=== PATIENT | female | born 1955 | race Caucasian/White ===

== ENCOUNTER 2016-05-29 21:39 | Inpatient (IN) | payer MEDICARE, MEDICAID ==
[~2016-05-29] VITALS: Ht 165.1 cm; Wt 84.5 kg
[~2016-05-29 21:39] MED LIST: /ALLEGDTA OR; /DULO30CA OR; /LAMO10TA OR; /TIOT18INH INH; ADV250INH INH; ALBU17IN INH; ALBU83IN INH; ALBUTEROL XX; ALEV220T26 PO; AMBI10TA OR; ASPI1TAB PO; ASPI81TA7 PO; ASPI81TA85 PO; ASPI81TAEC PO; ATROVENT0.02% INH; AZIT250T3 PO; BISO5TAB5 PO; BUPR15TA OR; BUPR300T34 PO; BUPR75TA5 PO; BUSP30TA OR; CARV12.5 PO; CEFT250T OR; CEPH500C PO; CLAR10CA3 PO; CLON-404 PO; CLON0.3T OR; COLA100C2 OR; CYCL10TA PO; CYMB1CAP5 PO; DULO1CAP2 PO; DULO1CAP3 PO; DULO30CA PO; DYAZ37.5 OR; FLEXERIL PO; FLON0.054; FLON1SPR; GABA-279 PO; GABA300C3 PO; HYDR1TAB97 PO; HYDR25TA6 OR; IBUP200C PO; IBUP600T OR; KEFL500C7 PO; LAMO10TA PO; LEVA500T PO; LEVO50TA2 OR; LIDO5DIS EX; LIDO5DIS36 TD; LIPI10TA OR; LIPI80TA PO; LISI2.5T3 PO; LISI25TA PO; LYRI75CA OR; METH750T OR; NAPR375T2 PO; NICO14PA TD; NICO21DI4 TD; NICO7PA TD; OMEP20TA7 OR; OMEP40CA2 PO; OXYB5TAB5 OR; PRED10TA PO; PRED10TA2 OR; ROBITUSSIN; SENN1TAB2 PO; SPIR1CAP INH; SYNT50TA PO; TRAZ150T OR; TYLE500T78 PO; VARE1TA OR; VENTAER IN; VICO5TAB OR; VICODINES TAB OR; VIT D 2000 PO; XOPE1.252 IN; ZITH500T OR; lortab PO; norco PO; zipsor PO
[2016-05-29] MEDS ORDERED: IPRATROPIUM 0.5MG/ALBUTEROL 2.5MG INH SOL UD 3ML (DUONEB)(J7620) As Ordered ONE ×2 (21:45→23:40)
[2016-05-29] MEDS ORDERED: methylPREDNISolone INJ 125 MG/2 ML VIAL (J2930) As Ordered ONE (21:54)
[2016-05-29 22:00] LABS: BASO # 0.1 K/mm3 (0.0-0.2); BASO % 0.5 % (0.0-1.0); EOS # 0.1 K/mm3 (0.0-0.50); EOS % 0.7 % (0.0-3.0); LARGE UNSTAINED CELL # 0.3 K/mm3 (0.0-0.4); LARGE UNSTAINED CELL % 2.2 % (0.0-4.0); LYMPH # 2.3 K/mm3 (1.5-4.5); LYMPH % 18.4 % (24.0-44.0); MEAN CORPUSCULAR HEMOGLOBIN 31.9 pg (27.0-33.0); MEAN CORPUSCULAR HGB CONC 32.9 g/dl (32.0-36.5); MEAN CORPUSCULAR VOLUME 96.8 fl (80.0-96.0); MONO # 0.8 K/mm3 (0.0-0.8); MONO % 6.4 % (0.0-5.0); NEUTROPHILS # 8.8 K/mm3 (1.8-7.7); NEUTROPHILS % 71.8 % (36.0-66.0); PLATELET COUNT, AUTOMATED 390 k/mm3 (150-450); RED CELL DISTRIBUTION WIDTH 12.1 % (11.5-14.5); WHITE BLOOD COUNT 12.3 K/mm3 (4.0-10.0)
[2016-05-29 22:20] LABS: ANION GAP 8 MEQ/L (8-16); BLOOD UREA NITROGEN 23 MG/DL (7-18); CALCIUM LEVEL 8.9 MG/DL (8.5-10.1); CARBON DIOXIDE LEVEL 28 MEQ/L (21-32); CHLORIDE LEVEL 105 MEQ/L (98-107); CREATININE FOR GFR 0.54 MG/DL (0.55-1.02); GLOMERULAR FILTRATION RATE > 60.0 (>51); GLUCOSE, FASTING 160 MG/DL (70-105); POTASSIUM SERUM 4.8 MEQ/L (3.5-5.1); SODIUM LEVEL 141 MEQ/L (136-145)
--- NOTE | 2016-05-29 23:07 | REP ---
Clinical: Shortness of breath . Comparison: 05/23/2016 . Findings: The mediastinum and cardiac silhouette are stable and within normal limits for portable technique. The lung cherry are clear without acute consolidation, effusion, or pneumothorax. Skeletal structures are intact. Impression: Stable. No acute cardiopulmonary process appreciated. Signed by Michael Vasques MD 05/29/2016 10:59 P
[2016-05-29] MEDS ORDERED: MOXIFLOXACIN 400 MG TAB As Ordered ONE (23:14)
[2016-05-29] MEDS ORDERED: ALBUTEROL SULFATE 2.5 MG/0.5 ML INH NEB SOLN As Ordered ONE (23:50)
[2016-05-30] MEDS ORDERED: dexameTHASONE 4 MG/ML 1ML VIAL (J1100) As Ordered ONE (00:16)
[2016-05-30] MEDS ORDERED: LEVALBUTEROL 1.25 MG/0.5 ML CONCENTRATE NEB As Ordered ONE (00:27)
[2016-05-30] MEDS ORDERED: guaiFENesin DM LIQ 10ML UD As Ordered ONE (00:40)
[2016-05-30 01:12] LABS: ABG BASE EXCESS 0.8 (-2.0-2.0); ABG DEVICE NASAL CANN; ABG PARTIAL PRESSURE CO2 49.5 mmHg (35.0-45.0); ABG PARTIAL PRESSURE O2 78.6 mmHg (75.0-100.0); ABG STANDARD HCO3 25.1 MEQ/L (22.0-26.0); ABG TOTAL CO2 28.5 MEQ/L (22.0-29.0); ABG pH (ARTERIAL) 7.355 UNITS (7.350-7.450)
[2016-05-30] MEDS ORDERED: OMEP40CA2 PO (02:29)
[2016-05-30] MEDS ORDERED: BENGEL EXT (02:30)
[2016-05-30] MEDS ORDERED: ISOVUE-370 76% 100ML VIAL (Q9967) As Ordered ONE (03:08)
[2016-05-30] MEDS ORDERED: ALBUTEROL 90 MCG/ACT 8GM HFA INHALER INH PRN (03:30)
--- NOTE | 2016-05-30 03:50 | REPUSA ---
CLINICAL HISTORY: Dyspnea, exclude PE. TECHNIQUE: Multiple incremental axial, coronal and oblique images are obtained from the thoracic inle t to the upper abdomen. Intravenous contrast material was administered as per pulmonary embolism prot ocol. COMMENTS: Comparison is made to prior exam performed on 04/28/2016. There is suboptimal opacification of pulmonary arterial system without evidence for central pulmonary embolism. Aorta is of normal caliber without evidence for dissection or aneurysm. There is no evidence of pleural or parenchymal mass. No change in bilateral scattered noncalcified pu lmonary nodules with the largest measuring 7 mm in the left lower lobe There are no pleural effusions . There is no evidence of hilar or mediastinal lymphadenopathy. The heart and great vessels are withi n normal limits. Multifocal air trapping in the lungs with mild groundglass densities. Images of the upper abdomen demonstrate no evidence of adrenal mass. The bony structures are free of lytic or blastic lesions. Multilevel degenerative changes are seen in volving the visualized thoracolumbar spine. Scattered calcifications are seen involving the aorta and major branches compatible with atherosclero sis. No change right adrenal nodule. Mild hepatomegaly. Prior cholecystectomy. IMPRESSION: No evidence for central pulmonary embolism. Scattered bilateral pulmonary nodules. Thank you for your kind referral of this patient.
--- NOTE | 2016-05-30 04:58 | EDDOCDS ---
Physician Documentation [facility] Name: Constance Zavala Age: 60 yrs Sex: Female : 1955 Arrival Date: 05/29/2016 Time: 21:39 Bed 3 Private MD: Jimmy Vera G Disposition: 05/30/16 02:04 Hospitalization ordered by Michaela Hernandez for Inpatient Admission. Preliminary diagnosis is Chronic obstructive pulmonary disease with (acute) exacerbation. - Bed requested for 4 [place]. - Status is Inpatient Admission. af2 - Condition is Stable. - Problem is chronic. - Symptoms have improved. Historical: - Allergies: No known drug Allergies; - Home Meds: 1. Advair Diskus 250-50 mcg/dose Inhl dsdv 2. albuterol sulfate 2.5 mg /3 mL (0.083 %) Inhl nebu 3 mL 4 times per day 3. aspirin 81 mg Oral tab 1 tab once daily 4. atorvastatin 80 mg oral tab 1 tab once daily 5. duloxetine 60 mg Oral cpDR 1 cap once daily 6. bisoprolol fumarate 5 mg oral tab 0.5 tab once daily 7. bupropion HCl 300 mg Oral Tb24 1 tab twice a day 8. fluticasone 50 mcg/actuation nasal spsn 1 spray once daily 9. Ventolin HFA 90 mcg/actuation Nebulizer HFAA 1 puff every 4-6 hours 10. Spiriva with HandiHaler 18 mcg Inhl CpDv 1 cap once daily 11. lisinopril 2.5 mg Oral tab 1 tab once daily 12. levothyroxine 50 mcg Oral tab 1 tab once daily 13. lamotrigine 100 mg Oral tr24 bid 14. Home O2 2L 15. gabapentin 300 mg Oral cap 1 cap 3 times per day - PMHx: CAD; COPD; Degenerative disc disease; Depression; GERD; HPV; Hypercholesterolemia; Hypertension; Hypothyroidism; HI; - PSHx: Cholecystectomy; CABG; Breast biopsy- Left; D & C; Tubal ligation; Tonsillectomy; Exploratory lap; - Social history: Smoking status: Patient states former smoker of tobacco. No barriers to communication noted, The patient speaks fluent Burkinan, Speaks appropriately for age. - Family history: Not pertinent. - : The pt / caregiver states he / she is not on anticoagulants. Home medication list is obtained from the patient. - Exposure Risk Screening:: None identified. Vital Signs: 05/29 21:43 BP 161 / 116 (auto/); af2 21:44 Pulse Ox 97% ; af2 21:46 BP 161 / 116; Pulse 102; Resp 32; Temp 98.3; Pulse Ox 95% 2 lpm ; Weight 83.91 kg / jlm 184.99 lbs; Height 5 ft. 5 in. (165.10 cm); 21:56 BP 164 / 75 (auto/); af2 21:56 Pulse Ox 98% ; af2 22:00 Pulse Ox 98% ; af2 22:00 BP 164 / 75 (auto/); Resp 26 S; af2 22:04 BP 153 / 74 (auto/); af2 22:06 Pulse 96 MON; Resp 22 S; Pulse Ox 98% on 2 lpm NC; af2 22:19 BP 147 / 66 (auto/); af2 22:19 Pulse 100 MON; Resp 22 S; Pulse Ox 94% on 2 lpm NC; af2 22:34 BP 151 / 66 (auto/); af2 22:34 Pulse 95 MON; Resp 22 S; Pulse Ox 95% on 2 lpm NC; af2 22:49 BP 126 / 60 (auto/); af2 22:49 Pulse 101 MON; Resp 22 S; Pulse Ox 96% on 2 lpm NC; af2 23:04 BP 128 / 57 (auto/); af2 23:04 Pulse 98 MON; Pulse Ox 95% on 2 lpm NC; af2 23:19 BP 119 / 61 (auto/); af2 23:19 Pulse 98 MON; Pulse Ox 97% on 2 lpm NC; af2 23:34 BP 121 / 64 (auto/); af2 23:34 Pulse 100 MON; Pulse Ox 97% ; af2 23:49 BP 154 / 70 (auto/); af2 23:49 Pulse 93 MON; Resp 26 S; Pulse Ox 98% on 2 lpm NC; af2 05/30 00:04 BP 157 / 77 (auto/); af2 00:04 Pulse 103 MON; Resp 26; Pulse Ox 99% on 2 lpm NC; af2 00:19 BP 161 / 82 (auto/); af2 00:19 Pulse 107 MON; Resp 26 S; Pulse Ox 95% on 2 lpm NC; af2 00:34 BP 140 / 81 (auto/); af2 00:34 Pulse 104 MON; Resp 26 S; Pulse Ox 96% on 2 lpm NC; af2 01:03 BP 137 / 63 (auto/); af2 01:03 Pulse 109 MON; Resp 26 S; Pulse Ox 91% on 2 lpm NC; af2 01:31 BP 123 / 59 (auto/); af2 01:31 Pulse 108 MON; Resp 26 S; Pulse Ox 97% on 2 lpm NC; af2 02:31 BP 131 / 62 (auto/); af2 02:31 Pulse 103 MON; Resp 26; Pulse Ox 95% ; af2 03:01 BP 140 / 77 (auto/); af2 03:01 Pulse 98 MON; Resp 26 S; Pulse Ox 94% on 2 lpm NC; af2 03:31 BP 143 / 67 (auto/); af2 03:33 Pulse 102 MON; Resp 26 S; Pulse Ox 95% on 2 lpm NC; af2 04:01 BP 147 / 70 (auto/); af2 04:01 Pulse 98 MON; Resp 22 S; Pulse Ox 93% on 2 lpm NC; af2 05/29 21:46 Body Mass Index 30.78 (83.91 kg, 165.10 cm) [facility] MDM: 05/29 21:48 Solu-MEDROL 125 mg IVP once ordered. ke 21:48 Health Information Manager/Pulse Ox/q 15 min VS ordered. ke 21:48 IV Saline Lock ordered. ke 21:48 Oxygen at 4L/Min NC or Home dosage ordered. ke 21:48 Rhythm Strip to chart ordered. ke 21:48 Albuterol-Ipratropium 1 neb Nebulizer every 20 minutes x3 ordered. ke 21:48 Call Respiratory ordered. ke 21:48 Call Respiratory complete. tmm1 21:49 Chest, 1 View Ordered. EDMS 21:49 B-Type Natiuretic Peptide Ordered. EDMS 21:49 Basic Metabolic Profile Ordered. EDMS 21:49 CBC with Diff Ordered. EDMS 21:49 ECG WITH READING ER PHYS+CARDIAG ordered. EDMS 22:14 Financial registration complete. zo 22:25 [facility] [place] Payment Agreement was scanned into [employer] and attached to record. zo 22:33 Basic Metabolic Profile Reviewed. ke 22:33 CBC with Diff Reviewed. ke 22:33 B-Type Natiuretic Peptide Reviewed. ke 23:01 Moxifloxacin 400 mg PO once ordered. ke 23:17 Albuterol 5 mg Nebulizer once ordered. ke 05/30 00:13 Dexamethasone 6 mg IV at bolus once ordered. cs11 00:13 Levalbuterol 1.25 mg Nebulizer every 15 minutes x3 ordered. cs11 00:20 Dextromethorphan-Guaifenesin Liquid 10 mg-100 mg/5 mL 7.5 ml PO once ordered. cs11 00:37 Call Respiratory ordered. sls1 00:37 Call Respiratory complete. sls1 00:56 -Arterial Blood Gas Ordered. EDMS 01:03 Chest, 1 View Reviewed. cs11 01:03 NS 0.9% 1000 ml IV at bolus once ordered. cs11 01:50 -Arterial Blood Gas Reviewed. cs11 01:56 BED REQUEST+ADM ordered. EDMS 03:01 CT ANGIO CHEST Ordered. EDMS 03:18 Admission / Observation Status ordered. EDMS 03:18 2 GRAM SODIUM DIET ordered. EDMS 03:18 COMPLETE BLOOD COUNT Ordered. EDMS 03:18 BASIC METABOLIC PROFILE Ordered. EDMS Administered Medications: 05/29 21:45 Drug: Albuterol-Ipratropium 1 neb [ipratropium-albuterol 0.5 mg-3 mg(2.5 mg base)/3 mL jc3 nebulization soln (1 neb)] Route: Nebulizer; 21:58 Drug: Albuterol-Ipratropium 1 neb [ipratropium-albuterol 0.5 mg-3 mg(2.5 mg base)/3 mL jc3 nebulization soln (1 neb)] Route: Nebulizer; 21:59 Drug: Solu-MEDROL 125 mg [Solu-Medrol 500 mg intravenous solution (125 mg)] Route: IVP; af2 Site: left hand; 22:09 Drug: Albuterol-Ipratropium 1 neb [ipratropium-albuterol 0.5 mg-3 mg(2.5 mg base)/3 mL jc3 nebulization soln (1 neb)] Route: Nebulizer; 23:17 Drug: Moxifloxacin 400 mg [moxifloxacin 400 mg tablet (1 tabs)] Route: PO; af2 23:47 Drug: Albuterol 5 mg [albuterol sulfate 2.5 mg/0.5 mL solution for nebulization (1 mL)] dk Route: Nebulizer; 05/30 00:20 Drug: Dexamethasone 6 mg [dexamethasone 4 mg/mL injection solution] Route: IV; Rate: af2 bolus; Site: left hand; 01:22 Drug: Levalbuterol 1.25 mg [levalbuterol 1.25 mg/0.5 mL solution for nebulization (0.5 af2 mL)] {Note: admin by RT.} Route: Nebulizer; : Drug: NS 0.9% 1000 ml [sodium chloride 0.9 % intravenous solution] Route: IV; Rate: af2 bolus; Site: left hand; 01:52 Drug: Dextromethorphan-Guaifenesin 7.5 ml [dextromethorphan-guaifenesin 10 mg-100 mg/5 af2 mL oral liquid (7.5 mL)] Route: PO; Signatures: Dispatcher [employer] EDMS Stefani Wade, RN RN daDillon Burrell, HUMAN SERVICES WORKER HUMAN SERVICES WORKER Violetta Schroeder Shannon RN RN sls1 Cesar Mesa DO DO cs11 McLear, Ana, RACK WASHER RACK WASHER tmm1 Francine Barreto,RN RN af2 Mary Alice Garces RT Reji Mccarty3 The chart was reviewed and I authenticate all verbal orders and agree with the evaluation and treatment provided.Corrections: (The following items were deleted from the chart) 01:04 00:38 ARTERIAL BLOOD GAS+LAB ordered. EDMS EDMS Attachments: 05/29 22:25 PENDING SALE TO [facility] Payment Agreement zo MTDD
--- NOTE | 2016-05-30 04:58 | EDDOCDS ---
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 Suicide/Homicide risk assessment- the patient denies having any suicidal and/or homicidal ideations and does not present with any other emotional, behavioral or mental health complaints. Status: Patient is not a director clinical information services or dependent. Transition of care: patient was not received from another setting of care. 21:45 Acuity: JAYCEE Level 3 af2 21:45 Method Of Arrival: Ambulance af2 05/30 04:11 Adult Sepsis Screening: The patient does not have new or worsening altered mentation. af2 Patient's respiratory rate is less than 22. Systolic blood pressure is greater than 100. Patient has a qSOFA score of 0- Negative Sepsis Screen. Triage Assessment: 05/29 21:40 General: Appears distressed, Behavior is anxious, cooperative. Pain: Denies pain. HIV af2 screening NA for this visit Offered previously. The patient is triaged at the bedside. See Assessment in Nurses Notes section of ED record. Neurological: Level of Consciousness is awake, alert, obeys commands, Oriented to person, place, time. Cardiovascular: Heart tones S1 S2 present. Respiratory: Onset: The symptoms/episode began/occurred just prior to arrival, Airway is patent Respiratory effort is labored, with retractions, shallow, Breath sounds are diminished in right upper lobe, left upper lobe, left posterior upper lobe and right posterior upper lobe Breath sounds with wheezes in right middle lobe, left lower lobe, right lower lobe, left posterior lower lobe, right posterior middle lobe and right posterior lower lobe Reports shortness of breath at rest labored breathing. Derm: Skin is normal. Historical: - Allergies: No known drug Allergies; - Home Meds: 1. Advair Diskus 250-50 mcg/dose Inhl dsdv 2. albuterol sulfate 2.5 mg /3 mL (0.083 %) Inhl nebu 3 mL 4 times per day 3. aspirin 81 mg Oral tab 1 tab once daily 4. atorvastatin 80 mg oral tab 1 tab once daily 5. duloxetine 60 mg Oral cpDR 1 cap once daily 6. bisoprolol fumarate 5 mg oral tab 0.5 tab once daily 7. bupropion HCl 300 mg Oral Tb24 1 tab twice a day 8. fluticasone 50 mcg/actuation nasal spsn 1 spray once daily 9. Ventolin HFA 90 mcg/actuation Nebulizer HFAA 1 puff every 4-6 hours 10. Spiriva with HandiHaler 18 mcg Inhl CpDv 1 cap once daily 11. lisinopril 2.5 mg Oral tab 1 tab once daily 12. levothyroxine 50 mcg Oral tab 1 tab once daily 13. lamotrigine 100 mg Oral tr24 bid 14. Home O2 2L 15. gabapentin 300 mg Oral cap 1 cap 3 times per day - PMHx: CAD; COPD; Degenerative disc disease; Depression; GERD; HPV; Hypercholesterolemia; Hypertension; Hypothyroidism; TN; - PSHx: Cholecystectomy; CABG; Breast biopsy- Left; D & C; Tubal ligation; Tonsillectomy; Exploratory lap; - Social history: Smoking status: Patient states former smoker of tobacco. No barriers to communication noted, The patient speaks fluent Togolese, Speaks appropriately for age. - Family history: Not pertinent. - : The pt / caregiver states he / she is not on anticoagulants. Home medication list is obtained from the patient. - Exposure Risk Screening:: None identified. Screenin/06 00:14 Screening information is obtained from the patient. Fall risk: No risks identified. af2 Assistance ADL's: requires no assistance with activities of daily living. Abuse/DV Screen: The patient / caregiver reports he/she is: not in a situation that causes fear, pain or injury. Nutritional screening: No deficits noted. Advance Directives: Currently, there is no health care proxy. home support is adequate. Assessment: 05/29 22:02 General: see triage note.. af2 22:48 General: Appears in no apparent distress, comfortable, Behavior is appropriate for age, af2 cooperative, pt lying on stretcher resting quietly at this time. . Neurological: Level of Consciousness is awake, alert, obeys commands, Oriented to person, place, time. Cardiovascular: Rhythm is sinus tachycardia No ectopy. Respiratory: Airway is patent Respiratory effort is even, unlabored, Respiratory pattern is regular, symmetrical. Derm: Skin is normal. 23:45 General: Appears in no apparent distress, comfortable, Behavior is appropriate for age, af2 cooperative. Neurological: Level of Consciousness is awake, alert, obeys commands, Oriented to person, place, time. Respiratory: Airway is patent Respiratory effort is even, unlabored. Derm: Skin is normal. 05/30 00:13 General: Appears distressed, Behavior is anxious, pt c/o difficulty in breathing, back af2 pain to this race and sports book writer. provider notified, orders received. . Respiratory: Airway is patent Respiratory effort is labored. Derm: Skin is normal. 00:20 General: pt reports chest pain, states "I think it's from coughing and if I could get af2 something to help the pain I think that would stop me from getting so worked up." provider notified.. Respiratory: Airway is patent Respiratory effort is labored, Breath sounds with wheezes expiratory bilaterally. Derm: Skin is normal. 01:22 General: Appears in no apparent distress, comfortable, Behavior is appropriate for age, af2 cooperative. Neurological: Level of Consciousness is awake, alert, obeys commands, Oriented to person, place. Respiratory: Airway is patent Respiratory effort is even, unlabored. Derm: Skin is normal. 02:02 General: Appears in no apparent distress, Behavior is appropriate for age, pt complains af2 of pain to left hand, piv noted to be infiltrated. piv d/c'd by this race and sports book writer, hot packs applied. new piv started in right ac.. 02:47 General: hospitalist at bedside to examine pt.. af2 03:45 General: Appears in no apparent distress, comfortable, Behavior is appropriate for age, af2 cooperative. Neurological: Level of Consciousness is awake, alert, obeys commands, Oriented to person, place, time. Respiratory: Airway is patent Respiratory effort is even, unlabored. Derm: Skin is normal. 04:53 General: Appears in no apparent distress, comfortable, Behavior is appropriate for age, af2 cooperative. Neurological: Level of Consciousness is awake, alert, obeys commands, Oriented to person, place, time. Respiratory: Airway is patent Respiratory effort is even, unlabored. Derm: Skin is normal. Vital Signs: 05/29 21:43 BP 161 / 116 (auto/); af2 21:44 Pulse Ox 97% ; af2 21:46 BP 161 / 116; Pulse 102; Resp 32; Temp 98.3; Pulse Ox 95% 2 lpm ; Weight 83.91 kg; jlm Height 5 ft. 5 in. (165.10 cm); 21:56 BP 164 / 75 (auto/); af2 21:56 Pulse Ox 98% ; af2 22:00 Pulse Ox 98% ; af2 22:00 BP 164 / 75 (auto/); Resp 26 S; af2 22:04 BP 153 / 74 (auto/); af2 22:06 Pulse 96 MON; Resp 22 S; Pulse Ox 98% on 2 lpm NC; af2 22:19 BP 147 / 66 (auto/); af2 22:19 Pulse 100 MON; Resp 22 S; Pulse Ox 94% on 2 lpm NC; af2 22:34 BP 151 / 66 (auto/); af2 22:34 Pulse 95 MON; Resp 22 S; Pulse Ox 95% on 2 lpm NC; af2 22:49 BP 126 / 60 (auto/); af2 22:49 Pulse 101 MON; Resp 22 S; Pulse Ox 96% on 2 lpm NC; af2 23:04 BP 128 / 57 (auto/); af2 23:04 Pulse 98 MON; Pulse Ox 95% on 2 lpm NC; af2 23:19 BP 119 / 61 (auto/); af2 23:19 Pulse 98 MON; Pulse Ox 97% on 2 lpm NC; af2 23:34 BP 121 / 64 (auto/); af2 23:34 Pulse 100 MON; Pulse Ox 97% ; af2 23:49 BP 154 / 70 (auto/); af2 23:49 Pulse 93 MON; Resp 26 S; Pulse Ox 98% on 2 lpm NC; af2 05/30 00:04 BP 157 / 77 (auto/); af2 00:04 Pulse 103 MON; Resp 26; Pulse Ox 99% on 2 lpm NC; af2 00:19 BP 161 / 82 (auto/); af2 00:19 Pulse 107 MON; Resp 26 S; Pulse Ox 95% on 2 lpm NC; af2 00:34 BP 140 / 81 (auto/); af2 00:34 Pulse 104 MON; Resp 26 S; Pulse Ox 96% on 2 lpm NC; af2 01:03 BP 137 / 63 (auto/); af2 01:03 Pulse 109 MON; Resp 26 S; Pulse Ox 91% on 2 lpm NC; af2 01:31 BP 123 / 59 (auto/); af2 01:31 Pulse 108 MON; Resp 26 S; Pulse Ox 97% on 2 lpm NC; af2 02:31 BP 131 / 62 (auto/); af2 02:31 Pulse 103 MON; Resp 26; Pulse Ox 95% ; af2 03:01 BP 140 / 77 (auto/); af2 03:01 Pulse 98 MON; Resp 26 S; Pulse Ox 94% on 2 lpm NC; af2 03:31 BP 143 / 67 (auto/); af2 03:33 Pulse 102 MON; Resp 26 S; Pulse Ox 95% on 2 lpm NC; af2 04:01 BP 147 / 70 (auto/); af2 04:01 Pulse 98 MON; Resp 22 S; Pulse Ox 93% on 2 lpm NC; af2 05/29 21:46 Body Mass Index 30.78 (83.91 kg, 165.10 cm) jl Vitals: 05/29 21:46 Log In Time N/A - ambulance arrival. jlm 21:46 Log In Time N/A - ambulance arrival. af2 ED Course: 21:40 Patient visited by Ana Harden PCA. tmm1 21:40 Patient moved to Waiting tmm1 21:41 Jimmy Vera is Private Physician. tmm1 21:41 Horacio Araiza is Private Physician. tmm1 21:41 Francine Barreto,RN is Primary Nurse. tmm1 21:41 [facility]. ke 21:41 Patient moved to 3 tmm1 21:42 Patient visited by Dillon Pittman FNP. ke 21:42 Patient visited by Dillon Pittman FNP. ke 21:46 Triage Initiated af2 21:47 Patient visited by Ana Aguirre, Medical Communication Specialist. jlm 21:47 Patient visited by Ana Aguirre Medical Communication Specialist. jlm 21:59 Patient visited by Joleen Mesa PCA. ls3 21:59 EKG done. (by ED staff). Reviewed by Dillon SIMONS. ls3 22:01 Maintain field IV. Dressing intact. Good blood return noted. Site clean & dry. Gauge & af2 site: #20G left hand. 22:02 Patient visited by Francine Barreto RN. af2 22:25 [facility] Payment Agreement was scanned into [employer] and attached to record. zo 22:27 Patient visited by Francine Barreto RN. af2 22:49 The patient / caregiver is instructed regarding the plan of care and ED course. Patient af2 has correct armband on for positive identification. 22:50 Patient visited by Dillon Pittman FNP. ke 22:52 Patient visited by Francine Barreto RN. af2 23:18 Patient visited by Dillon Pittman FNP. ke 23:45 Patient visited by Dillon Pittman FNP. ke 23:49 Chest, 1 View Returned. EDMS 05/30 00:11 Cesar Mesa DO is Attending Physician. cs11 00:14 Patient visited by Francine Barreto RN. af2 00:23 Patient visited by Francine Barreto RN. af2 01:01 -Arterial Blood Gas Sent. dk 01:22 Patient visited by Francine Barreto RN. af2 01:23 Patient visited by Francine Barreto RN. af2 01:43 Patient visited by Ana Aguirre, Medical Communication Specialist. jlm 02:04 Michaela Hernandez is Hospitalizing Provider. cs11 02:05 Patient visited by Francine Barreto RN. af2 02:47 Patient visited by Francine Barreto RN. af2 03:58 CT ANGIO CHEST Returned. EDMS 04:10 No procedures done that require assistance. af2 04:17 Patient visited by Francine Barreto RN. af2 Administered Medications: 05/29 21:45 Drug: Albuterol-Ipratropium 1 neb [ipratropium-albuterol 0.5 mg-3 mg(2.5 mg base)/3 mL jc3 nebulization soln (1 neb)] Route: Nebulizer; 21:58 Drug: Albuterol-Ipratropium 1 neb [ipratropium-albuterol 0.5 mg-3 mg(2.5 mg base)/3 mL jc3 nebulization soln (1 neb)] Route: Nebulizer; 21:59 Drug: Solu-MEDROL 125 mg [Solu-Medrol 500 mg intravenous solution (125 mg)] Route: IVP; af2 Site: left hand; 22:09 Drug: Albuterol-Ipratropium 1 neb [ipratropium-albuterol 0.5 mg-3 mg(2.5 mg base)/3 mL jc3 nebulization soln (1 neb)] Route: Nebulizer; 23:17 Drug: Moxifloxacin 400 mg [moxifloxacin 400 mg tablet (1 tabs)] Route: PO; af2 23:47 Drug: Albuterol 5 mg [albuterol sulfate 2.5 mg/0.5 mL solution for nebulization (1 mL)] dk Route: Nebulizer; 05/30 00:20 Drug: Dexamethasone 6 mg [dexamethasone 4 mg/mL injection solution] Route: IV; Rate: af2 bolus; Site: left hand; 01:22 Drug: Levalbuterol 1.25 mg [levalbuterol 1.25 mg/0.5 mL solution for nebulization (0.5 af2 mL)] {Note: admin by RT.} Route: Nebulizer; 01:25 Drug: NS 0.9% 1000 ml [sodium chloride 0.9 % intravenous solution] Route: IV; Rate: af2 bolus; Site: left hand; 01:52 Drug: Dextromethorphan-Guaifenesin 7.5 ml [dextromethorphan-guaifenesin 10 mg-100 mg/5 af2 mL oral liquid (7.5 mL)] Route: PO; RT: 05/29 21:49 Initial Med Neb Given as ordered. O2 via nasal cannula \\T\\ 2L/min. Respiratory: Breath jc3 sounds are coarse bilaterally. Breath sounds are diminished bilaterally. Breath sounds with wheezes bilaterally. at expiration. Respiratory: Airway is patent Respiratory effort is labored, Respiratory pattern is tachypnea. 21:58 Subsequent Med Neb Given as ordered. Respiratory: Respiratory effort is unlabored, jc3 Respiratory pattern is Breath sounds are coarse Breath sounds are diminished Breath sounds with wheezes bilaterally. at expiration. 22:09 Subsequent Med Neb Given as ordered Patient tolerated procedure well without adverse jc3 effect. Respiratory: Breath sounds are coarse Breath sounds are diminished Breath sounds with wheezes bilaterally. at expiration. 23:48 Subsequent Med Neb Given as ordered Patient tolerated procedure well without adverse dk effect. Respiratory: Breath sounds are coarse Breath sounds are diminished Breath sounds with wheezes. 05/30 00:43 ABG's drawn from right radial artery allens test done and positive pressure held for 5 dk minutes no bleeding noted pressure bandage applied specimen sent pt. tolerated well. 00:44 Subsequent Med Neb Given as ordered Patient tolerated procedure well without adverse dk effect. Respiratory: Respiratory effort is labored, Respiratory pattern is regular Breath sounds are coarse Breath sounds are diminished Breath sounds with wheezes bilaterally. at expiration. 01:01 Subsequent Med Neb Given as ordered Patient tolerated procedure well without adverse dk effect. Respiratory: Breath sounds are coarse Breath sounds are diminished Breath sounds with wheezes. Order Results: Lab Order: B-Type Natiuretic Peptide; SPEC'M 05/29/16 21:51 Test: BRAIN NATRIURETIC PEPTIDE; Value: 28.8; Range: <100; Units: PG/ML; Status: F Lab Order: Basic Metabolic Profile; SPEC'M 05/29/16 21:51 Test: GLUCOSE, FASTING; Value: 160; Range: 70-105; Abnormal: Above high normal; Units: MG/DL; Status: F Test: BLOOD UREA NITROGEN; Value: 23; Range: 7-18; Abnormal: Above high normal; Units: MG/DL; Status: F Test: CREATININE FOR GFR; Value: 0.54; Range: 0.55-1.02; Abnormal: Below low normal; Units: MG/DL; Status: F Test: GLOMERULAR FILTRATION RATE; Value: > 60.0; Range: >51; Status: F Test: SODIUM LEVEL; Value: 141; Range: 136-145; Units: MEQ/L; Status: F Test: POTASSIUM SERUM; Value: 4.8; Range: 3.5-5.1; Units: MEQ/L; Status: F Test: CHLORIDE LEVEL; Value: 105; Range: 98-107; Units: MEQ/L; Status: F Test: CARBON DIOXIDE LEVEL; Value: 28; Range: 21-32; Units: MEQ/L; Status: F Test: ANION GAP; Value: 8; Range: 8-16; Units: MEQ/L; Status: F Test: CALCIUM LEVEL; Value: 8.9; Range: 8.5-10.1; Units: MG/DL; Status: F Test Note: ; Units are mL/min/1.73 m2 Chronic Kidney Disease Staging per NKF: Stage I & II GFR >=60 Normal to Mildly Decreased Stage III GFR 30-59 Moderately Decreased Stage IV GFR 15-29 Severely Decreased Stage V GFR <15 Very Little GFR Left ESRD GFR <15 on SENIOR QUANTITY SURVEYOR Lab Order: CBC with Diff; SPEC'M 05/29/16 21:51 Test: WHITE BLOOD COUNT; Value: 12.3; Range: 4.0-10.0; Abnormal: Above high normal; Units: K/mm3; Status: F Test: RED BLOOD COUNT; Value: 4.51; Range: 4.00-5.40; Units: M/mm3; Status: F Test: HEMOGLOBIN; Value: 14.4; Range: 12.0-16.0; Units: g/dl; Status: F Test: HEMATOCRIT; Value: 43.7; Range: 36.0-47.0; Units: %; Status: F Test: MEAN CORPUSCULAR VOLUME; Value: 96.8; Range: 80.0-96.0; Abnormal: Above high normal; Units: fl; Status: F Test: MEAN CORPUSCULAR HEMOGLOBIN; Value: 31.9; Range: 27.0-33.0; Units: pg; Status: F Test: MEAN CORPUSCULAR HGB CONC; Value: 32.9; Range: 32.0-36.5; Units: g/dl; Status: F Test: RED CELL DISTRIBUTION WIDTH; Value: 12.1; Range: 11.5-14.5; Units: %; Status: F Test: PLATELET COUNT, AUTOMATED; Value: 390; Range: 150-450; Units: k/mm3; Status: F Test: NEUTROPHILS %; Value: 71.8; Range: 36.0-66.0; Abnormal: Above high normal; Units: %; Status: F Test: LYMPH %; Value: 18.4; Range: 24.0-44.0; Abnormal: Below low normal; Units: %; Status: F Test: MONO %; Value: 6.4; Range: 0.0-5.0; Abnormal: Above high normal; Units: %; Status: F Test: EOS %; Value: 0.7; Range: 0.0-3.0; Units: %; Status: F Test: BASO %; Value: 0.5; Range: 0.0-1.0; Units: %; Status: F Test: LARGE UNSTAINED CELL %; Value: 2.2; Range: 0.0-4.0; Units: %; Status: F Test: NEUTROPHILS #; Value: 8.8; Range: 1.8-7.7; Abnormal: Above high normal; Units: K/mm3; Status: F Test: LYMPH #; Value: 2.3; Range: 1.5-4.5; Units: K/mm3; Status: F Test: MONO #; Value: 0.8; Range: 0.0-0.8; Units: K/mm3; Status: F Test: EOS #; Value: 0.1; Range: 0.0-0.50; Units: K/mm3; Status: F Test: BASO #; Value: 0.1; Range: 0.0-0.2; Units: K/mm3; Status: F Test: LARGE UNSTAINED CELL #; Value: 0.3; Range: 0.0-0.4; Units: K/mm3; Status: F Lab Order: -Arterial Blood Gas; [facility] 05/30/16 00:59 Test: ABG pH (ARTERIAL); Value: 7.355; Range: 7.350-7.450; Units: UNITS; Status: F Test: ABG PARTIAL PRESSURE CO2; Value: 49.5; Range: 35.0-45.0; Abnormal: Above high normal; Units: mmHg; Status: F Test: ABG PARTIAL PRESSURE O2; Value: 78.6; Range: 75.0-100.0; Units: mmHg; Status: F Test: ABG TOTAL CO2; Value: 28.5; Range: 22.0-29.0; Units: MEQ/L; Status: F Test: ABG HCO3; Value: 27.0; Range: 22.0-26.0; Abnormal: Above high normal; Units: MEQ/L; Status: F Test: ABG BASE EXCESS; Value: 0.8; Range: -2.0-2.0; Status: F Test: ABG STANDARD HCO3; Value: 25.1; Range: 22.0-26.0; Units: MEQ/L; Status: F Test: ABG O2 SATURATION; Value: 94.4; Range: 95.0-99.0; Abnormal: Below low normal; Units: %; Status: F Test: ABG DEVICE; Value: NASAL RHONDA; Status: F Radiology Order: Chest, 1 View Test: Chest, 1 View REASON FOR EXAMINATION: Shortness of Breath; Clinical: Shortness of breath .; ; Comparison: 05/23/2016 .; ; Findings:; The mediastinum and cardiac silhouette are stable and within normal limits for; portable technique. The lung cherry are clear without acute consolidation,; effusion, or pneumothorax. Skeletal structures are intact.; ; Impression:; Stable. No acute cardiopulmonary process appreciated.; ; ; Signed by; Michael Vasques MD 05/29/2016 10:59 P; Radiology Order: CT ANGIO CHEST Test: CT ANGIO CHEST REASON FOR EXAMINATION: acute shortness of breath; ; CLINICAL HISTORY: Dyspnea, exclude PE.; TECHNIQUE: Multiple incremental axial, coronal and oblique images are obtained from the thoracic inle; t to the upper abdomen. Intravenous contrast material was administered as per pulmonary embolism prot; ocol.; COMMENTS:; Comparison is made to prior exam performed on 04/28/2016.; There is suboptimal opacification of pulmonary arterial system without evidence for central pulmonary; embolism. Aorta is of normal caliber without evidence for dissection or aneurysm.; There is no evidence of pleural or parenchymal mass. No change in bilateral scattered noncalcified pu; lmonary nodules with the largest measuring 7 mm in the left lower lobe There are no pleural effusions; . There is no evidence of hilar or mediastinal lymphadenopathy. The heart and great vessels are withi; n normal limits. Multifocal air trapping in the lungs with mild groundglass densities.; Images of the upper abdomen demonstrate no evidence of adrenal mass.; The bony structures are free of lytic or blastic lesions. Multilevel degenerative changes are seen in; volving the visualized thoracolumbar spine.; Scattered calcifications are seen involving the aorta and major branches compatible with atherosclero; sis.; No change right adrenal nodule. Mild hepatomegaly. Prior cholecystectomy.; IMPRESSION:; No evidence for central pulmonary embolism.; Scattered bilateral pulmonary nodules.; Thank you for your kind referral of this patient.; ; Outcome: 02:04 Decision to Hospitalize by Provider. cs11 04:10 Discharge Assessment: Patient awake, alert and oriented x 3. No cognitive and/or af2 functional deficits noted. Patient verbalized understanding of disposition instructions. patient administered narcotics - no. The following High Risk Discharge criteria are identified: None. Admitted to Med/Surg accompanied by tech, via stretcher, with oxygen, with chart. Condition: stable. No special radiology studies were completed. Property :Personal belongings accompany Pt. 04:57 Patient left the ED. af2 Signatures: Dispatcher [employer] EDMS Dillon Pittman, [employer] Mary Alice Serrano,RT RT Violetta Nogueira Joseph jc3 Cesar Mesa, DO cs11 Ana Harden, FORMING DEPARTMENT SUPERVISOR FORMING DEPARTMENT SUPERVISOR tmm1 Ana Aguirre, Medical Communication Specialist Unit jlm Francine Barreto,WANDA RN af2 Joleen Mesa, FORMING DEPARTMENT SUPERVISOR FORMING DEPARTMENT SUPERVISOR ls3 Corrections: (The following items were deleted from the chart) 05/29 21:47 21:46 BP 161 / 116; Pulse 102bpm; Pulse Ox 95% 2 lpm; Temp 98.3F; 83.91 kg; Height 5 jlm ft. 5 in.; BMI: 30.7; jl 05/30 01:04 00:43 ARTERIAL BLOOD GAS+LAB sent. mariana SHUKLA MTDD
[2016-05-30 05:00] VITALS: BP 141/80
--- NOTE | 2016-05-30 05:24 | HPE ---
DATE OF ADMISSION: 05/30/2016 PRIMARY CARE PROVIDER: Dr. Vera. HISTORY OF PRESENT ILLNESS: This patient is a 60-year-old female with a past medical history significant for chronic obstructive pulmonary disease (COPD) on 2-liter nasal cannula at home, coronary artery disease, hypertension, gastroesophageal reflux disease (GERD), bipolar disorder, hypothyroidism, anxiety/depression, obstructive sleep apnea (SUYAPA), not continuous positive airway pressure (CPAP) compliant, fibromyalgia, hypercholesterolemia, degenerative disc disease, hypertension, presented to [facility] on 05/29/2016 for acute worsening of shortness of breath. Patient has a history of COPD, who has been hospitalized multiple times in the past several months. Patient stated she started having shortness of breath for the past few days. She started noticing increased cough, increased sputum production and also sputum color changed from yellow to brownish. Patient was seen by her casino floor person, Dr. Pacheco on 05/29/2016, and patient was told to come to [facility] for further evaluation. Per patient, patient received intravenous (IV) steroid injection in the office. However, the patient's symptoms did not show significant improvement. Patient denies any other associated symptoms. The patient denies any recent sick contact. Patient does have a cat at home and intermittently patient will have allergic type reaction, but she does not feel she is allergic to her cat. When patient arrived to the emergency room, patient has a respiration rate of 32 , with an oxygen saturation around 95% with 2-liter nasal cannula. Patient received four rounds of breathing treatments. Patient also received Solu-Medrol at 125 mg IV times one and the patient also received IV dexamethasone 60 mg times one. Patient also received moxifloxacin 40 mg by mouth. The staff tried to walk the patient around the emergency department (ED) to assess her pulmonary function during exertion; however, the patient could not tolerate the activities and patient demonstrated worsening of shortness of breath. Therefore, hospitalist team was called for admission. ALLERGIES: No known drug allergies. HOME MEDICATIONS: - Tylenol 1000 mg by mouth every 6 hours as needed - Ventolin two puff inhalation every 4 hours as needed for shortness of breath - Ventolin 2.5 mg inhalation every 4 hours as needed - aspirin 81 mg by mouth daily - Lipitor 80 mg by mouth nightly - bisoprolol 2.5 mg by mouth daily - bupropion 150 mg by mouth twice a day - duloxetine 60 mg by mouth daily - Flonase one spray nasally daily - gabapentin by mouth three times a day - Lamictal 100 mg by mouth twice a day - Synthroid 50 mcg by mouth daily - lisinopril 2.5 mg by mouth daily - omeprazole 40 mg by mouth daily - Advair Diskus one puff inhalation twice a day - Spiriva inhalation daily PAST MEDICAL HISTORY: 1. COPD. 2. Coronary artery disease (CAD). 3. Degenerative disc disease. 4. Anxiety/depression. 5. Gastroesophageal reflux disease. 6. Hypertension. 7. Hypothyroidism. 8. SUYAPA, not compliant with CPAP. 9. Fibromyalgia. 10. Bipolar disorder. PAST SURGICAL HISTORY: 1. Cholecystectomy. 2. Dilation and curettage (D and C). 3. Tubal ligation. 4. Tonsillectomy. 5. Left breast biopsy. SOCIAL HISTORY: Patient stated she quit smoking a week ago. No alcohol use. Patient has a history of marijuana use in the remote past. Patient is FULL CODE. REVIEW OF SYSTEMS: GENERAL: No fever. No chills. HEENT: No vision changes. No auditory changes. CARDIOVASCULAR: No chest pain, no palpitations. RESPIRATORY: Acute worsening shortness of breath with increased cough, increased sputum production, increased sputum color in the past 3 days. The patient has frequent COPD exacerbations requiring multiple hospitalizations in the past several months. GASTROINTESTINAL: No nausea. No vomiting, no abdominal pain. No diarrhea. MUSCULOSKELETAL: No muscle pain or joint pain. Patient is complaining about epigastric pain along the lower frontal lobe. Patient is complaining about the pain is persistent and more significant during inspiration. NEUROLOGICAL: No numbness. No tingling. OBJECTIVE: VITAL SIGNS: Blood pressure is 123/59, pulse is 108, respiration rate 26, temperature 98.3, pulse oximetry is 97% with 2-liter nasal cannula. Body weight is 83.9 kg, body height is 165 cm. GENERAL: Patient is alert and oriented times three. HEENT: Normocephalic, atraumatic. Extraocular motor grossly intact. CARDIOVASCULAR: Distant heart sounds. Positive S1, S2, tachycardic with a heart rate frequently above 100. RESPIRATORY: Extensive expiratory wheezes. No crackles appreciated. GASTROINTESTINAL: Bowel sounds present. No rebound. No guarding. Abdomen is soft. MUSCULOSKELETAL: Tenderness to palpation near the epigastric region throughout the whole frontal rib cage. NEUROLOGICAL: Denies any numbness or tingling. LABORATORY DATA: WBC 12.3, hemoglobin 14.4, hematocrit 43.7, platelet count is 390. Sodium is 141, potassium 4.8, chloride 105, carbon dioxide 28, BUN 23, creatinine 0.54, GFR greater than 60, fasting glucose 160, calcium 8.9, BNP is 28.8. ABG shows pH of 7.355, pCO2 49.5, pO2 78.6, HCO3 27. IMAGING STUDIES: Chest x-ray shows stable. No acute cardiopulmonary process appreciated. CT angiography of the chest shows no evidence of central pulmonary embolism. scattered bilateral pulmonary nodules. ASSESSMENT AND PLAN: 1. Acute respiratory distress secondary to chronic obstructive pulmonary disease (COPD) exacerbation. Patient will be on the medical/surgical floor. The patient is continued on the steroids and patient will continue on Levaquin. Will titrate oxygen saturation between 88-92%. 2. History of COPD. 3. History of coronary artery disease, status post coronary artery bypass graft (CABG). Aspirin, atorvastatin. 4. Gastroesophageal reflux disease. Continue omeprazole. 5. Psychiatric condition, patient has depression/bipolar disorder. Will continue patient on home medications including Wellbutrin, Lamictal. 6. Hypertension. The patient is on lisinopril and Zebeta. 7. Hypothyroidism. Continue Synthroid. 8. History of hypercholesterolemia. Continue atorvastatin. 9. Multiple lung nodules. Is new, first detected with CAT scan in January, after half year, there is no change in any size. The largest nodule is 7 mm at the left lower lobe. 10. Deep venous thrombosis (DVT) prophylaxis. The patient is on heparin. [facility]
[2016-05-30 06:48] LABS: MEAN CORPUSCULAR HEMOGLOBIN 31.5 pg (27.0-33.0); MEAN CORPUSCULAR HGB CONC 32.8 g/dl (32.0-36.5); MEAN CORPUSCULAR VOLUME 96.1 fl (80.0-96.0); RED CELL DISTRIBUTION WIDTH 12.1 % (11.5-14.5); WHITE BLOOD COUNT 14.6 K/mm3 (4.0-10.0)
[2016-05-30 07:00] LABS: ANION GAP 10 MEQ/L (8-16); BLOOD UREA NITROGEN 17 MG/DL (7-18); CALCIUM LEVEL 8.9 MG/DL (8.5-10.1); CARBON DIOXIDE LEVEL 27 MEQ/L (21-32); CHLORIDE LEVEL 103 MEQ/L (98-107); CREATININE FOR GFR 0.59 MG/DL (0.55-1.02); GLOMERULAR FILTRATION RATE > 60.0 (>51); GLUCOSE, FASTING 208 MG/DL (70-105); POTASSIUM SERUM 4.2 MEQ/L (3.5-5.1); SODIUM LEVEL 140 MEQ/L (136-145)
[2016-05-30] MEDS: HEPARIN SOD (PORCINE) 5000 UNITS/ML VIAL SC SCH ×3 (07:03→21:19)
[2016-05-30] MEDS: LevoFLOXacin 750 MG TABLET PO SCH (07:03)
[2016-05-30] MEDS: LEVOTHYROXINE 0.05 MG TAB (50 MCG) PO SCH (07:03)
[2016-05-30] MEDS: TIOTROPIUM INHALER/CAPSULE (SPIRIVA) INH SCH (07:56)
[2016-05-30] MEDS: ADVAIR DISKUS 250/50 INH PWD INH SCH ×2 (07:56→19:46)
[2016-05-30] MEDS: GABAPENTIN 300 MG CAP PO SCH ×3 (08:47→21:19)
[2016-05-30] MEDS: OMEPRAZOLE 20 MG CAP PO SCH (08:47)
[2016-05-30] MEDS: DULoxetine 30 MG CAP (CYMBALTA) PO SCH (08:47)
[2016-05-30] MEDS: LISINOPRIL *2.5 MG* TAB PO SCH (08:47)
[2016-05-30] MEDS: ASPIRIN 81 MG ENTERIC TAB PO SCH (08:48)
[2016-05-30] MEDS: buPROPion 75 MG TAB PO SCH ×2 (08:48→21:19)
[2016-05-30] MEDS: FLUTICASONE PROP 0.05% NASAL SPRAY 16 GM (FLONASE) SCH (08:48)
[2016-05-30] MEDS: BISOPROLOL FUMARATE 5 MG TAB PO SCH (08:48)
[2016-05-30] MEDS: lamoTRIgine 100MG TAB PO SCH ×2 (08:48→21:19)
[2016-05-30] MEDS ORDERED: predniSONE 20 MG TAB PO SCH (09:00)
[2016-05-30] MEDS: methylPREDNISolone INJ 125 MG/2 ML VIAL (J2930) IV SCH ×2 (09:32→16:41)
[2016-05-30 14:00] VITALS: BP 139/91
[2016-05-30] MEDS ORDERED: SENNA 8.6 MG TAB (SENOKOT) PO PRN (14:15)
[2016-05-30] MEDS: ACETAMINOPHEN TAB 650MG DOSE (2X325MG) PO PRN ×2 (14:28→21:18)
[2016-05-30] MEDS: ALBUTEROL SULFATE 2.5 MG/0.5 ML INH NEB SOLN INH PRN ×2 (14:32→22:09)
[2016-05-30] MEDS: ATORVASTATIN 20 MG TAB PO SCH (21:19)
[2016-05-30 22:00] VITALS: BP 144/76
[2016-05-30] MEDS ORDERED: TORSEMIDE 20 MG TAB PO ONE (23:00)
[2016-05-30] MEDS ORDERED: KETOROLAC TROMETHAMINE 10 MG TAB PO ONE (23:15)
[2016-05-31] MEDS: methylPREDNISolone INJ 125 MG/2 ML VIAL (J2930) IV SCH ×3 (00:59→16:20)
[2016-05-31] MEDS: LEVOTHYROXINE 0.05 MG TAB (50 MCG) PO SCH (05:40)
[2016-05-31] MEDS: LevoFLOXacin 750 MG TABLET PO SCH (05:40)
[2016-05-31] MEDS: HEPARIN SOD (PORCINE) 5000 UNITS/ML VIAL SC SCH ×3 (05:41→21:34)
[2016-05-31 06:00] VITALS: BP 142/81
[2016-05-31 06:52] LABS: MEAN CORPUSCULAR HEMOGLOBIN 31.7 pg (27.0-33.0); MEAN CORPUSCULAR HGB CONC 32.8 g/dl (32.0-36.5); MEAN CORPUSCULAR VOLUME 96.6 fl (80.0-96.0); WHITE BLOOD COUNT 13.2 K/mm3 (4.0-10.0)
[2016-05-31 07:06] LABS: ANION GAP 8 MEQ/L (8-16); BLOOD UREA NITROGEN 19 MG/DL (7-18); CALCIUM LEVEL 8.9 MG/DL (8.5-10.1); CARBON DIOXIDE LEVEL 29 MEQ/L (21-32); CHLORIDE LEVEL 101 MEQ/L (98-107); CREATININE FOR GFR 0.57 MG/DL (0.55-1.02); GLOMERULAR FILTRATION RATE > 60.0 (>51); GLUCOSE, FASTING 200 MG/DL (70-105); SODIUM LEVEL 138 MEQ/L (136-145)
[2016-05-31] MEDS: TIOTROPIUM INHALER/CAPSULE (SPIRIVA) INH SCH (08:01)
[2016-05-31] MEDS: ADVAIR DISKUS 250/50 INH PWD INH SCH ×2 (08:01→19:44)
--- NOTE | 2016-05-31 08:24 | ECGEPIP ---
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
[2016-05-31] MEDS: FLUTICASONE PROP 0.05% NASAL SPRAY 16 GM (FLONASE) SCH (09:00)
[2016-05-31] MEDS: GABAPENTIN 300 MG CAP PO SCH ×3 (09:29→21:34)
[2016-05-31] MEDS: ASPIRIN 81 MG ENTERIC TAB PO SCH (09:29)
[2016-05-31] MEDS: buPROPion 75 MG TAB PO SCH ×2 (09:29→21:35)
[2016-05-31] MEDS: DULoxetine 30 MG CAP (CYMBALTA) PO SCH (09:29)
[2016-05-31] MEDS: OMEPRAZOLE 20 MG CAP PO SCH (09:30)
[2016-05-31] MEDS: lamoTRIgine 100MG TAB PO SCH ×2 (09:30→21:35)
[2016-05-31] MEDS: BISOPROLOL FUMARATE 5 MG TAB PO SCH (09:30)
[2016-05-31] MEDS: LISINOPRIL *2.5 MG* TAB PO SCH (09:30)
[2016-05-31] MEDS: ALBUTEROL SULFATE 2.5 MG/0.5 ML INH NEB SOLN INH PRN (10:35)
[2016-05-31] MEDS ORDERED: IPRATROPIUM 0.5MG/ALBUTEROL 2.5MG INH SOL UD 3ML (DUONEB)(J7620) NEB PRN (13:15)
--- NOTE | 2016-05-31 13:22 | IPNPDOC ---
Text Note Date of Service The patient was seen on 05/31/16 at 13:01. NOTE Subjective: Patient is a 60 year old female with a PMHx of COPD on Home O2 (2L), CAD, HTN, Bipolar disorder, Hypothyroidism, anxiety/depression, SUYAPA not on CPAP , fibromyalgia, DLP, degenerative disc disease, and GERD who presented to the ER with SOB. Patient recently had an admission 05/29/16 for COPD exacerbation. She notes that she has seen her heavy mobile equipment operator, Dr. Pacheco because of this. She had increased sputum production (yellow-brownish). Patient was admitted for COPD exacerbation Patient was seen and examined at the bedside. Clinically she notes that her breathing is significantly improved. No more wheezing. Notes that the cough persists, may have even worsened Objective: Vitals (see below) General: Lying in bed, no acute distress, comfortable, AAOx3 HEENT: NC, AT CVS: RRR, +S1S2 Lungs: Fair air entry b/l, -w/r/r Abdomen: Soft, ND, NT, +BSx4 Extremities: +PPx4, -edema, -calf tenderness Assessment and plan: 1. Acute hypercapnic and acute on chronic hypoxic respiratory failure - likely 2 /2 acute COPD exacerbation - Presented with shortness of breath, productive cough, increase in sputum production - Physical reveals improvement in wheezing - no wheezing on exam - CTA chest with no PE, scattered b/l pulmonary nodules - c/w Oxygen therapy - titrate to saturation between 90-92% - c/w Levaquin (Day #2), Duoneb, Solumedrol, Advair, Spiriva 2. Leukocytosis - likely 2/2 reactive 2/2 steroid use - ROS has been negative - Sputum culture pending - c/w Levaquin 3. CAD s/p CABG - c/w ASA, Atorvastatin, Bisoprolol 4. Deperssion / Bipolar disorder - c/w Buproprion, Duloxetine, Lamotrigine 5. HTN - BP well controlled - c/w Bisoprolol, Lisinopril and Torsemide 6. Hypothyroidism - c/w synthroid 7. DLP - c/w atorvastatin 8. Multiple lung nodules - will need follow up CT scan - outpatient follow up 9. GERD - c/w omeprazole 10. DVT prophylaxis - c/w heparin VS,Fishbone, I+O VS, Fishbone, I+O Laboratory Tests 05/31/16 06:15 Calcium Level 8.9, Red Blood Count 4.20, Mean Corpuscular Volume 96.6 H, Mean Corpuscular Hemoglobin 31.7, Mean Corpuscular Hemoglobin Concent 32.8, Red Cell Distribution Width 13.0 Vital Signs Date Time Temp Pulse Resp B/P Pulse Ox O2 Delivery O2 Flow Rate FiO2 05/31/16 10:37 Nasal Cannula 3.0 05/31/16 09:30 142/81 05/31/16 09:30 81 05/31/16 06:00 97.5 20 96 I&O- Last 24 Hours up to 6 AM 05/31/16 06:00 Intake Total 2810 ml Output Total 4050 ml Balance -1240 ml DANELLE KHAN MD May 31, 2016 13:22
[2016-05-31 14:00] VITALS: BP 136/72
[2016-05-31] MEDS: IPRATROPIUM 0.5MG/ALBUTEROL 2.5MG INH SOL UD 3ML (DUONEB)(J7620) NEB SCH ×2 (16:03→19:44)
[2016-05-31] MEDS: BENZONATATE 100 MG CAP PO PRN (16:20)
[2016-05-31] MEDS: KETOROLAC 30 MG/ML VIAL (J1885) IV PRN (16:20)
[2016-05-31] MEDS: ATORVASTATIN 20 MG TAB PO SCH (21:35)
[2016-05-31 22:00] VITALS: BP 140/78
[2016-06-01] MEDS: methylPREDNISolone INJ 125 MG/2 ML VIAL (J2930) IV SCH ×2 (01:59→08:14)
[2016-06-01] MEDS: KETOROLAC 30 MG/ML VIAL (J1885) IV PRN (02:05)
[2016-06-01] MEDS: BENZONATATE 100 MG CAP PO PRN (02:06)
[2016-06-01] MEDS: IPRATROPIUM 0.5MG/ALBUTEROL 2.5MG INH SOL UD 3ML (DUONEB)(J7620) NEB SCH ×2 (02:13→08:00)
[2016-06-01 02:15] VITALS: O2SAT 94
--- NOTE | 2016-06-01 05:59 | EDDOCDS ---
Physician Documentation [facility] Name: Constance Zavala Age: 60 yrs Sex: Female : 1955 Arrival Date: 05/29/2016 Time: 21:39 Bed 3 Private MD: Jimmy Vera G Disposition: 05/30/16 02:04 Hospitalization ordered by Michaela Hernandez for Inpatient Admission. Preliminary diagnosis is Chronic obstructive pulmonary disease with (acute) exacerbation. - Bed requested for 4 [place]. - Status is Inpatient Admission. af2 - Condition is Stable. - Problem is chronic. - Symptoms have improved. Historical: - Allergies: No known drug Allergies; - Home Meds: 1. Advair Diskus 250-50 mcg/dose Inhl dsdv 2. albuterol sulfate 2.5 mg /3 mL (0.083 %) Inhl nebu 3 mL 4 times per day 3. aspirin 81 mg Oral tab 1 tab once daily 4. atorvastatin 80 mg oral tab 1 tab once daily 5. duloxetine 60 mg Oral cpDR 1 cap once daily 6. bisoprolol fumarate 5 mg oral tab 0.5 tab once daily 7. bupropion HCl 300 mg Oral Tb24 1 tab twice a day 8. fluticasone 50 mcg/actuation nasal spsn 1 spray once daily 9. Ventolin HFA 90 mcg/actuation Nebulizer HFAA 1 puff every 4-6 hours 10. Spiriva with HandiHaler 18 mcg Inhl CpDv 1 cap once daily 11. lisinopril 2.5 mg Oral tab 1 tab once daily 12. levothyroxine 50 mcg Oral tab 1 tab once daily 13. lamotrigine 100 mg Oral tr24 bid 14. Home O2 2L 15. gabapentin 300 mg Oral cap 1 cap 3 times per day - PMHx: CAD; COPD; Degenerative disc disease; Depression; GERD; HPV; Hypercholesterolemia; Hypertension; Hypothyroidism; PA; - PSHx: Cholecystectomy; CABG; Breast biopsy- Left; D & C; Tubal ligation; Tonsillectomy; Exploratory lap; - Social history: Smoking status: Patient states former smoker of tobacco. No barriers to communication noted, The patient speaks fluent Nigerien, Speaks appropriately for age. - Family history: Not pertinent. - : The pt / caregiver states he / she is not on anticoagulants. Home medication list is obtained from the patient. - Exposure Risk Screening:: None identified. Vital Signs: 05/29 21:43 BP 161 / 116 (auto/); af2 21:44 Pulse Ox 97% ; af2 21:46 BP 161 / 116; Pulse 102; Resp 32; Temp 98.3; Pulse Ox 95% 2 lpm ; Weight 83.91 kg / jlm 184.99 lbs; Height 5 ft. 5 in. (165.10 cm); 21:56 BP 164 / 75 (auto/); af2 21:56 Pulse Ox 98% ; af2 22:00 Pulse Ox 98% ; af2 22:00 BP 164 / 75 (auto/); Resp 26 S; af2 22:04 BP 153 / 74 (auto/); af2 22:06 Pulse 96 MON; Resp 22 S; Pulse Ox 98% on 2 lpm NC; af2 22:19 BP 147 / 66 (auto/); af2 22:19 Pulse 100 MON; Resp 22 S; Pulse Ox 94% on 2 lpm NC; af2 22:34 BP 151 / 66 (auto/); af2 22:34 Pulse 95 MON; Resp 22 S; Pulse Ox 95% on 2 lpm NC; af2 22:49 BP 126 / 60 (auto/); af2 22:49 Pulse 101 MON; Resp 22 S; Pulse Ox 96% on 2 lpm NC; af2 23:04 BP 128 / 57 (auto/); af2 23:04 Pulse 98 MON; Pulse Ox 95% on 2 lpm NC; af2 23:19 BP 119 / 61 (auto/); af2 23:19 Pulse 98 MON; Pulse Ox 97% on 2 lpm NC; af2 23:34 BP 121 / 64 (auto/); af2 23:34 Pulse 100 MON; Pulse Ox 97% ; af2 23:49 BP 154 / 70 (auto/); af2 23:49 Pulse 93 MON; Resp 26 S; Pulse Ox 98% on 2 lpm NC; af2 05/30 00:04 BP 157 / 77 (auto/); af2 00:04 Pulse 103 MON; Resp 26; Pulse Ox 99% on 2 lpm NC; af2 00:19 BP 161 / 82 (auto/); af2 00:19 Pulse 107 MON; Resp 26 S; Pulse Ox 95% on 2 lpm NC; af2 00:34 BP 140 / 81 (auto/); af2 00:34 Pulse 104 MON; Resp 26 S; Pulse Ox 96% on 2 lpm NC; af2 01:03 BP 137 / 63 (auto/); af2 01:03 Pulse 109 MON; Resp 26 S; Pulse Ox 91% on 2 lpm NC; af2 01:31 BP 123 / 59 (auto/); af2 01:31 Pulse 108 MON; Resp 26 S; Pulse Ox 97% on 2 lpm NC; af2 02:31 BP 131 / 62 (auto/); af2 02:31 Pulse 103 MON; Resp 26; Pulse Ox 95% ; af2 03:01 BP 140 / 77 (auto/); af2 03:01 Pulse 98 MON; Resp 26 S; Pulse Ox 94% on 2 lpm NC; af2 03:31 BP 143 / 67 (auto/); af2 03:33 Pulse 102 MON; Resp 26 S; Pulse Ox 95% on 2 lpm NC; af2 04:01 BP 147 / 70 (auto/); af2 04:01 Pulse 98 MON; Resp 22 S; Pulse Ox 93% on 2 lpm NC; af2 05/29 21:46 Body Mass Index 30.78 (83.91 kg, 165.10 cm) [facility] MDM: 05/29 21:48 Solu-MEDROL 125 mg IVP once ordered. ke 21:48 Bleach Packer/Pulse Ox/q 15 min VS ordered. ke 21:48 IV Saline Lock ordered. ke 21:48 Oxygen at 4L/Min NC or Home dosage ordered. ke 21:48 Rhythm Strip to chart ordered. ke 21:48 Albuterol-Ipratropium 1 neb Nebulizer every 20 minutes x3 ordered. ke 21:48 Call Respiratory ordered. ke 21:48 Call Respiratory complete. tmm1 21:49 Chest, 1 View Ordered. EDMS 21:49 B-Type Natiuretic Peptide Ordered. EDMS 21:49 Basic Metabolic Profile Ordered. EDMS 21:49 CBC with Diff Ordered. EDMS 21:49 ECG WITH READING ER PHYS+CARDIAG ordered. EDMS 22:14 Financial registration complete. zo 22:25 [facility] Payment Agreement was scanned into [employer] and attached to record. zo 22:33 Basic Metabolic Profile Reviewed. ke 22:33 CBC with Diff Reviewed. ke 22:33 B-Type Natiuretic Peptide Reviewed. ke 23:01 Moxifloxacin 400 mg PO once ordered. ke 23:17 Albuterol 5 mg Nebulizer once ordered. ke 05/30 00:13 Dexamethasone 6 mg IV at bolus once ordered. cs11 00:13 Levalbuterol 1.25 mg Nebulizer every 15 minutes x3 ordered. cs11 00:20 Dextromethorphan-Guaifenesin Liquid 10 mg-100 mg/5 mL 7.5 ml PO once ordered. cs11 00:37 Call Respiratory ordered. sls1 00:37 Call Respiratory complete. sls1 00:56 -Arterial Blood Gas Ordered. EDMS 01:03 Chest, 1 View Reviewed. cs11 01:03 NS 0.9% 1000 ml IV at bolus once ordered. cs11 01:50 -Arterial Blood Gas Reviewed. cs11 01:56 BED REQUEST+ADM ordered. EDMS 03:01 CT ANGIO CHEST Ordered. EDMS 03:18 Admission / Observation Status ordered. EDMS 03:18 2 GRAM SODIUM DIET ordered. EDMS 03:18 COMPLETE BLOOD COUNT Ordered. EDMS 03:18 BASIC METABOLIC PROFILE Ordered. EDMS 07:40 T-Sheet-- Draft Copy was scanned into [employer] and attached to record. gb 12:19 ECG/EKG was scanned into [employer] and attached to record. gb Administered Medications: 05/29 21:45 Drug: Albuterol-Ipratropium 1 neb [ipratropium-albuterol 0.5 mg-3 mg(2.5 mg base)/3 mL jc3 nebulization soln (1 neb)] Route: Nebulizer; 21:58 Drug: Albuterol-Ipratropium 1 neb [ipratropium-albuterol 0.5 mg-3 mg(2.5 mg base)/3 mL jc3 nebulization soln (1 neb)] Route: Nebulizer; 21:59 Drug: Solu-MEDROL 125 mg [Solu-Medrol 500 mg intravenous solution (125 mg)] Route: IVP; af2 Site: left hand; 22:09 Drug: Albuterol-Ipratropium 1 neb [ipratropium-albuterol 0.5 mg-3 mg(2.5 mg base)/3 mL jc3 nebulization soln (1 neb)] Route: Nebulizer; 23:17 Drug: Moxifloxacin 400 mg [moxifloxacin 400 mg tablet (1 tabs)] Route: PO; af2 23:47 Drug: Albuterol 5 mg [albuterol sulfate 2.5 mg/0.5 mL solution for nebulization (1 mL)] dk Route: Nebulizer; 05/30 00:20 Drug: Dexamethasone 6 mg [dexamethasone 4 mg/mL injection solution] Route: IV; Rate: af2 bolus; Site: left hand; 01:22 Drug: Levalbuterol 1.25 mg [levalbuterol 1.25 mg/0.5 mL solution for nebulization (0.5 af2 mL)] {Note: admin by RT.} Route: Nebulizer; :25 Drug: NS 0.9% 1000 ml [sodium chloride 0.9 % intravenous solution] Route: IV; Rate: af2 bolus; Site: left hand; 01:52 Drug: Dextromethorphan-Guaifenesin 7.5 ml [dextromethorphan-guaifenesin 10 mg-100 mg/5 af2 mL oral liquid (7.5 mL)] Route: PO; Signatures: Dispatcher [employer] EDMS Stefani Wade, RN RN daq Shelley Stanley, Reg Reg gb Dillon Pittman, Violetta Montoya Shannon RN RN sls1 Cesar Mesa DO DO cs11 McLear, Ana, PRODUCT COORDINATOR PRODUCT COORDINATOR tmm1 Francine Barreto RN RN af2 Mary Alice Garces RT Reji Mccarty 3 The chart was reviewed and I authenticate all verbal orders and agree with the evaluation and treatment provided.Corrections: (The following items were deleted from the chart) 01:04 00:38 ARTERIAL BLOOD GAS+LAB ordered. EDMS EDMS Attachments: 05/29 22:25 [facility] Payment Agreement zo 05/30 07:40 T-Sheet-- Draft Copy gb 12:19 ECG/EKG gb Chart Complete MTDD
--- NOTE | 2016-06-01 05:59 | EDDOCDS ---
Physician Documentation [facility] Name: Constance Zavala Age: 60 yrs Sex: Female : 1955 Arrival Date: 05/29/2016 Time: 21:39 Bed 3 Private MD: Jimmy Vera G Disposition: 05/30/16 02:04 Hospitalization ordered by Michaela Hernandez for Inpatient Admission. Preliminary diagnosis is Chronic obstructive pulmonary disease with (acute) exacerbation. - Bed requested for 4 [place]. - Status is Inpatient Admission. af2 - Condition is Stable. - Problem is chronic. - Symptoms have improved. Historical: - Allergies: No known drug Allergies; - Home Meds: 1. Advair Diskus 250-50 mcg/dose Inhl dsdv 2. albuterol sulfate 2.5 mg /3 mL (0.083 %) Inhl nebu 3 mL 4 times per day 3. aspirin 81 mg Oral tab 1 tab once daily 4. atorvastatin 80 mg oral tab 1 tab once daily 5. duloxetine 60 mg Oral cpDR 1 cap once daily 6. bisoprolol fumarate 5 mg oral tab 0.5 tab once daily 7. bupropion HCl 300 mg Oral Tb24 1 tab twice a day 8. fluticasone 50 mcg/actuation nasal spsn 1 spray once daily 9. Ventolin HFA 90 mcg/actuation Nebulizer HFAA 1 puff every 4-6 hours 10. Spiriva with HandiHaler 18 mcg Inhl CpDv 1 cap once daily 11. lisinopril 2.5 mg Oral tab 1 tab once daily 12. levothyroxine 50 mcg Oral tab 1 tab once daily 13. lamotrigine 100 mg Oral tr24 bid 14. Home O2 2L 15. gabapentin 300 mg Oral cap 1 cap 3 times per day - PMHx: CAD; COPD; Degenerative disc disease; Depression; GERD; HPV; Hypercholesterolemia; Hypertension; Hypothyroidism; NH; - PSHx: Cholecystectomy; CABG; Breast biopsy- Left; D & C; Tubal ligation; Tonsillectomy; Exploratory lap; - Social history: Smoking status: Patient states former smoker of tobacco. No barriers to communication noted, The patient speaks fluent Slovak, Speaks appropriately for age. - Family history: Not pertinent. - : The pt / caregiver states he / she is not on anticoagulants. Home medication list is obtained from the patient. - Exposure Risk Screening:: None identified. Vital Signs: 05/29 21:43 BP 161 / 116 (auto/); af2 21:44 Pulse Ox 97% ; af2 21:46 BP 161 / 116; Pulse 102; Resp 32; Temp 98.3; Pulse Ox 95% 2 lpm ; Weight 83.91 kg / jlm 184.99 lbs; Height 5 ft. 5 in. (165.10 cm); 21:56 BP 164 / 75 (auto/); af2 21:56 Pulse Ox 98% ; af2 22:00 Pulse Ox 98% ; af2 22:00 BP 164 / 75 (auto/); Resp 26 S; af2 22:04 BP 153 / 74 (auto/); af2 22:06 Pulse 96 MON; Resp 22 S; Pulse Ox 98% on 2 lpm NC; af2 22:19 BP 147 / 66 (auto/); af2 22:19 Pulse 100 MON; Resp 22 S; Pulse Ox 94% on 2 lpm NC; af2 22:34 BP 151 / 66 (auto/); af2 22:34 Pulse 95 MON; Resp 22 S; Pulse Ox 95% on 2 lpm NC; af2 22:49 BP 126 / 60 (auto/); af2 22:49 Pulse 101 MON; Resp 22 S; Pulse Ox 96% on 2 lpm NC; af2 23:04 BP 128 / 57 (auto/); af2 23:04 Pulse 98 MON; Pulse Ox 95% on 2 lpm NC; af2 23:19 BP 119 / 61 (auto/); af2 23:19 Pulse 98 MON; Pulse Ox 97% on 2 lpm NC; af2 23:34 BP 121 / 64 (auto/); af2 23:34 Pulse 100 MON; Pulse Ox 97% ; af2 23:49 BP 154 / 70 (auto/); af2 23:49 Pulse 93 MON; Resp 26 S; Pulse Ox 98% on 2 lpm NC; af2 05/30 00:04 BP 157 / 77 (auto/); af2 00:04 Pulse 103 MON; Resp 26; Pulse Ox 99% on 2 lpm NC; af2 00:19 BP 161 / 82 (auto/); af2 00:19 Pulse 107 MON; Resp 26 S; Pulse Ox 95% on 2 lpm NC; af2 00:34 BP 140 / 81 (auto/); af2 00:34 Pulse 104 MON; Resp 26 S; Pulse Ox 96% on 2 lpm NC; af2 01:03 BP 137 / 63 (auto/); af2 01:03 Pulse 109 MON; Resp 26 S; Pulse Ox 91% on 2 lpm NC; af2 01:31 BP 123 / 59 (auto/); af2 01:31 Pulse 108 MON; Resp 26 S; Pulse Ox 97% on 2 lpm NC; af2 02:31 BP 131 / 62 (auto/); af2 02:31 Pulse 103 MON; Resp 26; Pulse Ox 95% ; af2 03:01 BP 140 / 77 (auto/); af2 03:01 Pulse 98 MON; Resp 26 S; Pulse Ox 94% on 2 lpm NC; af2 03:31 BP 143 / 67 (auto/); af2 03:33 Pulse 102 MON; Resp 26 S; Pulse Ox 95% on 2 lpm NC; af2 04:01 BP 147 / 70 (auto/); af2 04:01 Pulse 98 MON; Resp 22 S; Pulse Ox 93% on 2 lpm NC; af2 05/29 21:46 Body Mass Index 30.78 (83.91 kg, 165.10 cm) [facility] MDM: 05/29 21:48 Solu-MEDROL 125 mg IVP once ordered. ke 21:48 Tierce Filler/Pulse Ox/q 15 min VS ordered. ke 21:48 IV Saline Lock ordered. ke 21:48 Oxygen at 4L/Min NC or Home dosage ordered. ke 21:48 Rhythm Strip to chart ordered. ke 21:48 Albuterol-Ipratropium 1 neb Nebulizer every 20 minutes x3 ordered. ke 21:48 Call Respiratory ordered. ke 21:48 Call Respiratory complete. tmm1 21:49 Chest, 1 View Ordered. EDMS 21:49 B-Type Natiuretic Peptide Ordered. EDMS 21:49 Basic Metabolic Profile Ordered. EDMS 21:49 CBC with Diff Ordered. EDMS 21:49 ECG WITH READING ER PHYS+CARDIAG ordered. EDMS 22:14 Financial registration complete. zo 22:25 [facility] Payment Agreement was scanned into [employer] and attached to record. zo 22:33 Basic Metabolic Profile Reviewed. ke 22:33 CBC with Diff Reviewed. ke 22:33 B-Type Natiuretic Peptide Reviewed. ke 23:01 Moxifloxacin 400 mg PO once ordered. ke 23:17 Albuterol 5 mg Nebulizer once ordered. ke 05/30 00:13 Dexamethasone 6 mg IV at bolus once ordered. cs11 00:13 Levalbuterol 1.25 mg Nebulizer every 15 minutes x3 ordered. cs11 00:20 Dextromethorphan-Guaifenesin Liquid 10 mg-100 mg/5 mL 7.5 ml PO once ordered. cs11 00:37 Call Respiratory ordered. sls1 00:37 Call Respiratory complete. sls1 00:56 -Arterial Blood Gas Ordered. EDMS 01:03 Chest, 1 View Reviewed. cs11 01:03 NS 0.9% 1000 ml IV at bolus once ordered. cs11 01:50 -Arterial Blood Gas Reviewed. cs11 01:56 BED REQUEST+ADM ordered. EDMS 03:01 CT ANGIO CHEST Ordered. EDMS 03:18 Admission / Observation Status ordered. EDMS 03:18 2 GRAM SODIUM DIET ordered. EDMS 03:18 COMPLETE BLOOD COUNT Ordered. EDMS 03:18 BASIC METABOLIC PROFILE Ordered. EDMS 07:40 T-Sheet-- Draft Copy was scanned into [employer] and attached to record. gb 12:19 ECG/EKG was scanned into [employer] and attached to record. gb Administered Medications: 05/29 21:45 Drug: Albuterol-Ipratropium 1 neb [ipratropium-albuterol 0.5 mg-3 mg(2.5 mg base)/3 mL jc3 nebulization soln (1 neb)] Route: Nebulizer; 21:58 Drug: Albuterol-Ipratropium 1 neb [ipratropium-albuterol 0.5 mg-3 mg(2.5 mg base)/3 mL jc3 nebulization soln (1 neb)] Route: Nebulizer; 21:59 Drug: Solu-MEDROL 125 mg [Solu-Medrol 500 mg intravenous solution (125 mg)] Route: IVP; af2 Site: left hand; 22:09 Drug: Albuterol-Ipratropium 1 neb [ipratropium-albuterol 0.5 mg-3 mg(2.5 mg base)/3 mL jc3 nebulization soln (1 neb)] Route: Nebulizer; 23:17 Drug: Moxifloxacin 400 mg [moxifloxacin 400 mg tablet (1 tabs)] Route: PO; af2 23:47 Drug: Albuterol 5 mg [albuterol sulfate 2.5 mg/0.5 mL solution for nebulization (1 mL)] dk Route: Nebulizer; 05/30 00:20 Drug: Dexamethasone 6 mg [dexamethasone 4 mg/mL injection solution] Route: IV; Rate: af2 bolus; Site: left hand; 01:22 Drug: Levalbuterol 1.25 mg [levalbuterol 1.25 mg/0.5 mL solution for nebulization (0.5 af2 mL)] {Note: admin by RT.} Route: Nebulizer; :25 Drug: NS 0.9% 1000 ml [sodium chloride 0.9 % intravenous solution] Route: IV; Rate: af2 bolus; Site: left hand; 01:52 Drug: Dextromethorphan-Guaifenesin 7.5 ml [dextromethorphan-guaifenesin 10 mg-100 mg/5 af2 mL oral liquid (7.5 mL)] Route: PO; Signatures: Dispatcher [employer] EDMS Stefani Wade, RN RN daq Shelley Stanley, Reg Reg gb Dillon Pittman, Violetta Montoya Shannon RN RN sls1 Cesar Mesa DO DO cs11 McLear, Ana, CUSTOMER AGENT CUSTOMER AGENT tmm1 Francine Barreto RN RN af2 Mary Alice Garces RT Reji Mccarty 3 The chart was reviewed and I authenticate all verbal orders and agree with the evaluation and treatment provided.Corrections: (The following items were deleted from the chart) 01:04 00:38 ARTERIAL BLOOD GAS+LAB ordered. EDMS EDMS Attachments: 05/29 22:25 [facility] Payment Agreement zo 05/30 07:40 T-Sheet-- Draft Copy gb 12:19 ECG/EKG gb Chart Complete MTDD
--- NOTE | 2016-06-01 05:59 | EDDOCDS ---
Nurse's Notes 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 Suicide/Homicide risk assessment- the patient denies having any suicidal and/or homicidal ideations and does not present with any other emotional, behavioral or mental health complaints. Status: Patient is not a director social service or dependent. Transition of care: patient was not received from another setting of care. 21:45 Acuity: JAYCEE Level 3 af2 21:45 Method Of Arrival: Ambulance af2 05/30 04:11 Adult Sepsis Screening: The patient does not have new or worsening altered mentation. af2 Patient's respiratory rate is less than 22. Systolic blood pressure is greater than 100. Patient has a qSOFA score of 0- Negative Sepsis Screen. Triage Assessment: 05/29 21:40 General: Appears distressed, Behavior is anxious, cooperative. Pain: Denies pain. HIV af2 screening NA for this visit Offered previously. The patient is triaged at the bedside. See Assessment in Nurses Notes section of ED record. Neurological: Level of Consciousness is awake, alert, obeys commands, Oriented to person, place, time. Cardiovascular: Heart tones S1 S2 present. Respiratory: Onset: The symptoms/episode began/occurred just prior to arrival, Airway is patent Respiratory effort is labored, with retractions, shallow, Breath sounds are diminished in right upper lobe, left upper lobe, left posterior upper lobe and right posterior upper lobe Breath sounds with wheezes in right middle lobe, left lower lobe, right lower lobe, left posterior lower lobe, right posterior middle lobe and right posterior lower lobe Reports shortness of breath at rest labored breathing. Derm: Skin is normal. Historical: - Allergies: No known drug Allergies; - Home Meds: 1. Advair Diskus 250-50 mcg/dose Inhl dsdv 2. albuterol sulfate 2.5 mg /3 mL (0.083 %) Inhl nebu 3 mL 4 times per day 3. aspirin 81 mg Oral tab 1 tab once daily 4. atorvastatin 80 mg oral tab 1 tab once daily 5. duloxetine 60 mg Oral cpDR 1 cap once daily 6. bisoprolol fumarate 5 mg oral tab 0.5 tab once daily 7. bupropion HCl 300 mg Oral Tb24 1 tab twice a day 8. fluticasone 50 mcg/actuation nasal spsn 1 spray once daily 9. Ventolin HFA 90 mcg/actuation Nebulizer HFAA 1 puff every 4-6 hours 10. Spiriva with HandiHaler 18 mcg Inhl CpDv 1 cap once daily 11. lisinopril 2.5 mg Oral tab 1 tab once daily 12. levothyroxine 50 mcg Oral tab 1 tab once daily 13. lamotrigine 100 mg Oral tr24 bid 14. Home O2 2L 15. gabapentin 300 mg Oral cap 1 cap 3 times per day - PMHx: CAD; COPD; Degenerative disc disease; Depression; GERD; HPV; Hypercholesterolemia; Hypertension; Hypothyroidism; [place]; - PSHx: Cholecystectomy; CABG; Breast biopsy- Left; D & C; Tubal ligation; Tonsillectomy; Exploratory lap; - Social history: Smoking status: Patient states former smoker of tobacco. No barriers to communication noted, The patient speaks fluent Tu[place], Speaks appropriately for age. - Family history: Not pertinent. - : The pt / caregiver states he / she is not on anticoagulants. Home medication list is obtained from the patient. - Exposure Risk Screening:: None identified. Screenin/06 00:14 Screening information is obtained from the patient. Fall risk: No risks identified. af2 Assistance ADL's: requires no assistance with activities of daily living. Abuse/DV Screen: The patient / caregiver reports he/she is: not in a situation that causes fear, pain or injury. Nutritional screening: No deficits noted. Advance Directives: Currently, there is no health care proxy. home support is adequate. Assessment: 05/29 22:02 General: see triage note.. af2 22:48 General: Appears in no apparent distress, comfortable, Behavior is appropriate for age, af2 cooperative, pt lying on stretcher resting quietly at this time. . Neurological: Level of Consciousness is awake, alert, obeys commands, Oriented to person, place, time. Cardiovascular: Rhythm is sinus tachycardia No ectopy. Respiratory: Airway is patent Respiratory effort is even, unlabored, Respiratory pattern is regular, symmetrical. Derm: Skin is normal. 23:45 General: Appears in no apparent distress, comfortable, Behavior is appropriate for age, af2 cooperative. Neurological: Level of Consciousness is awake, alert, obeys commands, Oriented to person, place, time. Respiratory: Airway is patent Respiratory effort is even, unlabored. Derm: Skin is normal. 05/30 00:13 General: Appears distressed, Behavior is anxious, pt c/o difficulty in breathing, back af2 pain to this newswriter. provider notified, orders received. . Respiratory: Airway is patent Respiratory effort is labored. Derm: Skin is normal. 00:20 General: pt reports chest pain, states "I think it's from coughing and if I could get af2 something to help the pain I think that would stop me from getting so worked up." provider notified.. Respiratory: Airway is patent Respiratory effort is labored, Breath sounds with wheezes expiratory bilaterally. Derm: Skin is normal. 01:22 General: Appears in no apparent distress, comfortable, Behavior is appropriate for age, af2 cooperative. Neurological: Level of Consciousness is awake, alert, obeys commands, Oriented to person, place. Respiratory: Airway is patent Respiratory effort is even, unlabored. Derm: Skin is normal. 02:02 General: Appears in no apparent distress, Behavior is appropriate for age, pt complains af2 of pain to left hand, piv noted to be infiltrated. piv d/c'd by this newswriter, hot packs applied. new piv started in right ac.. 02:47 General: hospitalist at bedside to examine pt.. af2 03:45 General: Appears in no apparent distress, comfortable, Behavior is appropriate for age, af2 cooperative. Neurological: Level of Consciousness is awake, alert, obeys commands, Oriented to person, place, time. Respiratory: Airway is patent Respiratory effort is even, unlabored. Derm: Skin is normal. 04:53 General: Appears in no apparent distress, comfortable, Behavior is appropriate for age, af2 cooperative. Neurological: Level of Consciousness is awake, alert, obeys commands, Oriented to person, place, time. Respiratory: Airway is patent Respiratory effort is even, unlabored. Derm: Skin is normal. Vital Signs: 05/29 21:43 BP 161 / 116 (auto/); af2 21:44 Pulse Ox 97% ; af2 21:46 BP 161 / 116; Pulse 102; Resp 32; Temp 98.3; Pulse Ox 95% 2 lpm ; Weight 83.91 kg; jlm Height 5 ft. 5 in. (165.10 cm); 21:56 BP 164 / 75 (auto/); af2 21:56 Pulse Ox 98% ; af2 22:00 Pulse Ox 98% ; af2 22:00 BP 164 / 75 (auto/); Resp 26 S; af2 22:04 BP 153 / 74 (auto/); af2 22:06 Pulse 96 MON; Resp 22 S; Pulse Ox 98% on 2 lpm NC; af2 22:19 BP 147 / 66 (auto/); af2 22:19 Pulse 100 MON; Resp 22 S; Pulse Ox 94% on 2 lpm NC; af2 22:34 BP 151 / 66 (auto/); af2 22:34 Pulse 95 MON; Resp 22 S; Pulse Ox 95% on 2 lpm NC; af2 22:49 BP 126 / 60 (auto/); af2 22:49 Pulse 101 MON; Resp 22 S; Pulse Ox 96% on 2 lpm NC; af2 23:04 BP 128 / 57 (auto/); af2 23:04 Pulse 98 MON; Pulse Ox 95% on 2 lpm NC; af2 23:19 BP 119 / 61 (auto/); af2 23:19 Pulse 98 MON; Pulse Ox 97% on 2 lpm NC; af2 23:34 BP 121 / 64 (auto/); af2 23:34 Pulse 100 MON; Pulse Ox 97% ; af2 23:49 BP 154 / 70 (auto/); af2 23:49 Pulse 93 MON; Resp 26 S; Pulse Ox 98% on 2 lpm NC; af2 05/30 00:04 BP 157 / 77 (auto/); af2 00:04 Pulse 103 MON; Resp 26; Pulse Ox 99% on 2 lpm NC; af2 00:19 BP 161 / 82 (auto/); af2 00:19 Pulse 107 MON; Resp 26 S; Pulse Ox 95% on 2 lpm NC; af2 00:34 BP 140 / 81 (auto/); af2 00:34 Pulse 104 MON; Resp 26 S; Pulse Ox 96% on 2 lpm NC; af2 01:03 BP 137 / 63 (auto/); af2 01:03 Pulse 109 MON; Resp 26 S; Pulse Ox 91% on 2 lpm NC; af2 01:31 BP 123 / 59 (auto/); af2 01:31 Pulse 108 MON; Resp 26 S; Pulse Ox 97% on 2 lpm NC; af2 02:31 BP 131 / 62 (auto/); af2 02:31 Pulse 103 MON; Resp 26; Pulse Ox 95% ; af2 03:01 BP 140 / 77 (auto/); af2 03:01 Pulse 98 MON; Resp 26 S; Pulse Ox 94% on 2 lpm NC; af2 03:31 BP 143 / 67 (auto/); af2 03:33 Pulse 102 MON; Resp 26 S; Pulse Ox 95% on 2 lpm NC; af2 04:01 BP 147 / 70 (auto/); af2 04:01 Pulse 98 MON; Resp 22 S; Pulse Ox 93% on 2 lpm NC; af2 05/29 21:46 Body Mass Index 30.78 (83.91 kg, 165.10 cm) jl Vitals: 05/29 21:46 Log In Time N/A - ambulance arrival. jlm 21:46 Log In Time N/A - ambulance arrival. af2 ED Course: 21:40 Patient visited by Ana Harden PCA. tmm1 21:40 Patient moved to Waiting tmm1 21:41 Jimmy Vera is Private Physician. tmm1 21:41 Horacio Araiza is Private Physician. tmm1 21:41 Francine Barreto,RN is Primary Nurse. tmm1 21:41 [facility] Pitt[facility]. ke 21:41 Patient moved to 3 tmm1 21:42 Patient visited by Dillon Pittman FNP. ke 21:42 Patient visited by Dillon Pittman FNP. ke 21:46 Triage Initiated af2 21:47 Patient visited by Ana Aguirre, Film Sound Coordinator. jlm 21:47 Patient visited by Ana Aguirre Film Sound Coordinator. jlm 21:59 Patient visited by Joleen Mesa PCA. ls3 21:59 EKG done. (by ED staff). Reviewed by Dillon SIMONS. ls3 22:01 Maintain field IV. Dressing intact. Good blood return noted. Site clean & dry. Gauge & af2 site: #20G left hand. 22:02 Patient visited by Francine Barreto RN. af2 22:25 [facility] Payment Agreement was scanned into [employer] and attached to record. zo 22:27 Patient visited by Francine Barreto RN. af2 22:49 The patient / caregiver is instructed regarding the plan of care and ED course. Patient af2 has correct armband on for positive identification. 22:50 Patient visited by Dillon Pittman FNP. ke 22:52 Patient visited by Francine Barreto RN. af2 23:18 Patient visited by Dillon Pittman FNP. ke 23:45 Patient visited by Dillon Pittman FNP. ke 23:49 Chest, 1 View Returned. EDMS 05/30 00:11 Cesar Mesa DO is Attending Physician. cs11 00:14 Patient visited by Francine Barreto RN. af2 00:23 Patient visited by Francine Barreto RN. af2 01:01 -Arterial Blood Gas Sent. dk 01:22 Patient visited by Francine Barreto RN. af2 01:23 Patient visited by Francine Barreto RN. af2 01:43 Patient visited by Ana Aguirre, Film Sound Coordinator. jlm 02:04 Michaela Hernandez is Hospitalizing Provider. cs11 02:05 Patient visited by Francine Barreto RN. af2 02:47 Patient visited by Francine Barreto RN. af2 03:58 CT ANGIO CHEST Returned. EDMS 04:10 No procedures done that require assistance. af2 04:17 Patient visited by Francine Barreto RN. af2 07:40 T-Sheet-- Draft Copy was scanned into [employer] and attached to record. gb 12:19 ECG/EKG was scanned into [employer] and attached to record. gb Administered Medications: 05/29 21:45 Drug: Albuterol-Ipratropium 1 neb [ipratropium-albuterol 0.5 mg-3 mg(2.5 mg base)/3 mL jc3 nebulization soln (1 neb)] Route: Nebulizer; 21:58 Drug: Albuterol-Ipratropium 1 neb [ipratropium-albuterol 0.5 mg-3 mg(2.5 mg base)/3 mL jc3 nebulization soln (1 neb)] Route: Nebulizer; 21:59 Drug: Solu-MEDROL 125 mg [Solu-Medrol 500 mg intravenous solution (125 mg)] Route: IVP; af2 Site: left hand; 22:09 Drug: Albuterol-Ipratropium 1 neb [ipratropium-albuterol 0.5 mg-3 mg(2.5 mg base)/3 mL jc3 nebulization soln (1 neb)] Route: Nebulizer; 23:17 Drug: Moxifloxacin 400 mg [moxifloxacin 400 mg tablet (1 tabs)] Route: PO; af2 23:47 Drug: Albuterol 5 mg [albuterol sulfate 2.5 mg/0.5 mL solution for nebulization (1 mL)] dk Route: Nebulizer; 05/30 00:20 Drug: Dexamethasone 6 mg [dexamethasone 4 mg/mL injection solution] Route: IV; Rate: af2 bolus; Site: left hand; 01:22 Drug: Levalbuterol 1.25 mg [levalbuterol 1.25 mg/0.5 mL solution for nebulization (0.5 af2 mL)] {Note: admin by RT.} Route: Nebulizer; 01:25 Drug: NS 0.9% 1000 ml [sodium chloride 0.9 % intravenous solution] Route: IV; Rate: af2 bolus; Site: left hand; 01:52 Drug: Dextromethorphan-Guaifenesin 7.5 ml [dextromethorphan-guaifenesin 10 mg-100 mg/5 af2 mL oral liquid (7.5 mL)] Route: PO; RT: 05/29 21:49 Initial Med Neb Given as ordered. O2 via nasal cannula \\T\\ 2L/min. Respiratory: Breath jc3 sounds are coarse bilaterally. Breath sounds are diminished bilaterally. Breath sounds with wheezes bilaterally. at expiration. Respiratory: Airway is patent Respiratory effort is labored, Respiratory pattern is tachypnea. 21:58 Subsequent Med Neb Given as ordered. Respiratory: Respiratory effort is unlabored, jc3 Respiratory pattern is Breath sounds are coarse Breath sounds are diminished Breath sounds with wheezes bilaterally. at expiration. 22:09 Subsequent Med Neb Given as ordered Patient tolerated procedure well without adverse jc3 effect. Respiratory: Breath sounds are coarse Breath sounds are diminished Breath sounds with wheezes bilaterally. at expiration. 23:48 Subsequent Med Neb Given as ordered Patient tolerated procedure well without adverse dk effect. Respiratory: Breath sounds are coarse Breath sounds are diminished Breath sounds with wheezes. 05/30 00:43 ABG's drawn from right radial artery allens test done and positive pressure held for 5 dk minutes no bleeding noted pressure bandage applied specimen sent pt. tolerated well. 00:44 Subsequent Med Neb Given as ordered Patient tolerated procedure well without adverse dk effect. Respiratory: Respiratory effort is labored, Respiratory pattern is regular Breath sounds are coarse Breath sounds are diminished Breath sounds with wheezes bilaterally. at expiration. 01:01 Subsequent Med Neb Given as ordered Patient tolerated procedure well without adverse dk effect. Respiratory: Breath sounds are coarse Breath sounds are diminished Breath sounds with wheezes. Order Results: Lab Order: B-Type Natiuretic Peptide; SPEC'M 05/29/16 21:51 Test: BRAIN NATRIURETIC PEPTIDE; Value: 28.8; Range: <100; Units: PG/ML; Status: F Lab Order: Basic Metabolic Profile; SPEC'M 05/29/16 21:51 Test: GLUCOSE, FASTING; Value: 160; Range: 70-105; Abnormal: Above high normal; Units: MG/DL; Status: F Test: BLOOD UREA NITROGEN; Value: 23; Range: 7-18; Abnormal: Above high normal; Units: MG/DL; Status: F Test: CREATININE FOR GFR; Value: 0.54; Range: 0.55-1.02; Abnormal: Below low normal; Units: MG/DL; Status: F Test: GLOMERULAR FILTRATION RATE; Value: > 60.0; Range: >51; Status: F Test: SODIUM LEVEL; Value: 141; Range: 136-145; Units: MEQ/L; Status: F Test: POTASSIUM SERUM; Value: 4.8; Range: 3.5-5.1; Units: MEQ/L; Status: F Test: CHLORIDE LEVEL; Value: 105; Range: 98-107; Units: MEQ/L; Status: F Test: CARBON DIOXIDE LEVEL; Value: 28; Range: 21-32; Units: MEQ/L; Status: F Test: ANION GAP; Value: 8; Range: 8-16; Units: MEQ/L; Status: F Test: CALCIUM LEVEL; Value: 8.9; Range: 8.5-10.1; Units: MG/DL; Status: F Test Note: ; Units are mL/min/1.73 m2 Chronic Kidney Disease Staging per NKF: Stage I & II GFR >=60 Normal to Mildly Decreased Stage III GFR 30-59 Moderately Decreased Stage IV GFR 15-29 Severely Decreased Stage V GFR <15 Very Little GFR Left ESRD GFR <15 on [employer] Lab Order: CBC with Diff; SPEC'M 05/29/16 21:51 Test: WHITE BLOOD COUNT; Value: 12.3; Range: 4.0-10.0; Abnormal: Above high normal; Units: K/mm3; Status: F Test: RED BLOOD COUNT; Value: 4.51; Range: 4.00-5.40; Units: M/mm3; Status: F Test: HEMOGLOBIN; Value: 14.4; Range: 12.0-16.0; Units: g/dl; Status: F Test: HEMATOCRIT; Value: 43.7; Range: 36.0-47.0; Units: %; Status: F Test: MEAN CORPUSCULAR VOLUME; Value: 96.8; Range: 80.0-96.0; Abnormal: Above high normal; Units: fl; Status: F Test: MEAN CORPUSCULAR HEMOGLOBIN; Value: 31.9; Range: 27.0-33.0; Units: pg; Status: F Test: MEAN CORPUSCULAR HGB CONC; Value: 32.9; Range: 32.0-36.5; Units: g/dl; Status: F Test: RED CELL DISTRIBUTION WIDTH; Value: 12.1; Range: 11.5-14.5; Units: %; Status: F Test: PLATELET COUNT, AUTOMATED; Value: 390; Range: 150-450; Units: k/mm3; Status: F Test: NEUTROPHILS %; Value: 71.8; Range: 36.0-66.0; Abnormal: Above high normal; Units: %; Status: F Test: LYMPH %; Value: 18.4; Range: 24.0-44.0; Abnormal: Below low normal; Units: %; Status: F Test: MONO %; Value: 6.4; Range: 0.0-5.0; Abnormal: Above high normal; Units: %; Status: F Test: EOS %; Value: 0.7; Range: 0.0-3.0; Units: %; Status: F Test: BASO %; Value: 0.5; Range: 0.0-1.0; Units: %; Status: F Test: LARGE UNSTAINED CELL %; Value: 2.2; Range: 0.0-4.0; Units: %; Status: F Test: NEUTROPHILS #; Value: 8.8; Range: 1.8-7.7; Abnormal: Above high normal; Units: K/mm3; Status: F Test: LYMPH #; Value: 2.3; Range: 1.5-4.5; Units: K/mm3; Status: F Test: MONO #; Value: 0.8; Range: 0.0-0.8; Units: K/mm3; Status: F Test: EOS #; Value: 0.1; Range: 0.0-0.50; Units: K/mm3; Status: F Test: BASO #; Value: 0.1; Range: 0.0-0.2; Units: K/mm3; Status: F Test: LARGE UNSTAINED CELL #; Value: 0.3; Range: 0.0-0.4; Units: K/mm3; Status: F Lab Order: -Arterial Blood Gas; [facility]' 05/30/16 00:59 Test: ABG pH (ARTERIAL); Value: 7.355; Range: 7.350-7.450; Units: UNITS; Status: F Test: ABG PARTIAL PRESSURE CO2; Value: 49.5; Range: 35.0-45.0; Abnormal: Above high normal; Units: mmHg; Status: F Test: ABG PARTIAL PRESSURE O2; Value: 78.6; Range: 75.0-100.0; Units: mmHg; Status: F Test: ABG TOTAL CO2; Value: 28.5; Range: 22.0-29.0; Units: MEQ/L; Status: F Test: ABG HCO3; Value: 27.0; Range: 22.0-26.0; Abnormal: Above high normal; Units: MEQ/L; Status: F Test: ABG BASE EXCESS; Value: 0.8; Range: -2.0-2.0; Status: F Test: ABG STANDARD HCO3; Value: 25.1; Range: 22.0-26.0; Units: MEQ/L; Status: F Test: ABG O2 SATURATION; Value: 94.4; Range: 95.0-99.0; Abnormal: Below low normal; Units: %; Status: F Test: ABG DEVICE; Value: NASAL RHONDA; Status: F Radiology Order: Chest, 1 View Test: Chest, 1 View REASON FOR EXAMINATION: Shortness of Breath; Clinical: Shortness of breath .; ; Comparison: 05/23/2016 .; ; Findings:; The mediastinum and cardiac silhouette are stable and within normal limits for; portable technique. The lung cherry are clear without acute consolidation,; effusion, or pneumothorax. Skeletal structures are intact.; ; Impression:; Stable. No acute cardiopulmonary process appreciated.; ; ; Signed by; Michael Vasques MD 05/29/2016 10:59 P; Radiology Order: CT ANGIO CHEST Test: CT ANGIO CHEST REASON FOR EXAMINATION: acute shortness of breath; ; CLINICAL HISTORY: Dyspnea, exclude PE.; TECHNIQUE: Multiple incremental axial, coronal and oblique images are obtained from the thoracic inle; t to the upper abdomen. Intravenous contrast material was administered as per pulmonary embolism prot; ocol.; COMMENTS:; Comparison is made to prior exam performed on 04/28/2016.; There is suboptimal opacification of pulmonary arterial system without evidence for central pulmonary; embolism. Aorta is of normal caliber without evidence for dissection or aneurysm.; There is no evidence of pleural or parenchymal mass. No change in bilateral scattered noncalcified pu; lmonary nodules with the largest measuring 7 mm in the left lower lobe There are no pleural effusions; . There is no evidence of hilar or mediastinal lymphadenopathy. The heart and great vessels are withi; n normal limits. Multifocal air trapping in the lungs with mild groundglass densities.; Images of the upper abdomen demonstrate no evidence of adrenal mass.; The bony structures are free of lytic or blastic lesions. Multilevel degenerative changes are seen in; volving the visualized thoracolumbar spine.; Scattered calcifications are seen involving the aorta and major branches compatible with atherosclero; sis.; No change right adrenal nodule. Mild hepatomegaly. Prior cholecystectomy.; IMPRESSION:; No evidence for central pulmonary embolism.; Scattered bilateral pulmonary nodules.; Thank you for your kind referral of this patient.; ; Outcome: 02:04 Decision to Hospitalize by Provider. cs11 04:10 Discharge Assessment: Patient awake, alert and oriented x 3. No cognitive and/or af2 functional deficits noted. Patient verbalized understanding of disposition instructions. patient administered narcotics - no. The following High Risk Discharge criteria are identified: None. Admitted to Med/Surg accompanied by tech, via stretcher, with oxygen, with chart. Condition: stable. No special radiology studies were completed. Property :Personal belongings accompany Pt. 04:57 Patient left the ED. af2 Signatures: Dispatcher [employer] EDMS Shelley Stanley, Noe Reg gb Dillon Pittman, LINUX SYSTEM ADMIN LINUX SYSTEM ADMIN ke Mary Alice Garces,RT RT Violetta Nogueira Joseph jc3 Cesar Mesa, DO cs11 Ana Harden, SELF STORAGE MANAGER SELF STORAGE MANAGER tmm1 Ana Aguirre, Film Sound Coordinator Unit jl Francine Barreto,RN RN af2 Joleen Mesa, SELF STORAGE MANAGER SELF STORAGE MANAGER ls3 Corrections: (The following items were deleted from the chart) 05/29 21:47 21:46 BP 161 / 116; Pulse 102bpm; Pulse Ox 95% 2 lpm; Temp 98.3F; 83.91 kg; Height 5 jlm ft. 5 in.; BMI: 30.7; [facility] 05/30 01:04 00:43 ARTERIAL BLOOD GAS+LAB sent. mariana SHUKLA Chart Complete MTDD
[2016-06-01 06:00] VITALS: BP 145/80
[2016-06-01] MEDS: HEPARIN SOD (PORCINE) 5000 UNITS/ML VIAL SC SCH (06:39)
[2016-06-01] MEDS: LEVOTHYROXINE 0.05 MG TAB (50 MCG) PO SCH (06:39)
[2016-06-01] MEDS: LevoFLOXacin 750 MG TABLET PO SCH (06:39)
[2016-06-01 06:57] LABS: MEAN CORPUSCULAR HGB CONC 32.8 g/dl (32.0-36.5); MEAN CORPUSCULAR VOLUME 97.3 fl (80.0-96.0); RED CELL DISTRIBUTION WIDTH 12.8 % (11.5-14.5); WHITE BLOOD COUNT 13.8 K/mm3 (4.0-10.0)
[2016-06-01 07:11] LABS: ANION GAP 5 MEQ/L (8-16); BLOOD UREA NITROGEN 24 MG/DL (7-18); CALCIUM LEVEL 8.9 MG/DL (8.5-10.1); CARBON DIOXIDE LEVEL 34 MEQ/L (21-32); CHLORIDE LEVEL 101 MEQ/L (98-107); GLOMERULAR FILTRATION RATE > 60.0 (>51); GLUCOSE, FASTING 208 MG/DL (70-105); POTASSIUM SERUM 4.5 MEQ/L (3.5-5.1); SODIUM LEVEL 140 MEQ/L (136-145)
[2016-06-01] MEDS: ADVAIR DISKUS 250/50 INH PWD INH SCH (08:05)
[2016-06-01] MEDS: TIOTROPIUM INHALER/CAPSULE (SPIRIVA) INH SCH (08:05)
[2016-06-01 08:15] VITALS: BP 145/80
[2016-06-01] MEDS: LISINOPRIL *2.5 MG* TAB PO SCH (08:15)
[2016-06-01] MEDS: buPROPion 75 MG TAB PO SCH (08:15)
[2016-06-01] MEDS: lamoTRIgine 100MG TAB PO SCH (08:15)
[2016-06-01] MEDS: BISOPROLOL FUMARATE 5 MG TAB PO SCH (08:15)
[2016-06-01] MEDS: ASPIRIN 81 MG ENTERIC TAB PO SCH (08:15)
[2016-06-01] MEDS: OMEPRAZOLE 20 MG CAP PO SCH (08:15)
[2016-06-01] MEDS: DULoxetine 30 MG CAP (CYMBALTA) PO SCH (08:15)
[2016-06-01] MEDS: FLUTICASONE PROP 0.05% NASAL SPRAY 16 GM (FLONASE) SCH (08:15)
[2016-06-01] MEDS: GABAPENTIN 300 MG CAP PO SCH (08:15)
[2016-06-01] MEDS ORDERED: LEVA750T PO (11:36)
[2016-06-01] MEDS ORDERED: PRED10TA FT (11:36)
[2016-06-01] MEDS ORDERED: BENZ100C5 PO (11:36)
--- NOTE | 2016-06-01 18:28 | DSES ---
DATE OF ADMISSION: 05/30/2016 DATE OF DISCHARGE: 06/01/2016 PRIMARY CARE PHYSICIAN: Dr. Jimmy Jiménez. REFERRING PHYSICIAN: None. CONSULTING PHYSICIANS: None. CONDITION ON DISCHARGE: Stable. FINAL DIAGNOSIS: Acute hypercapnic and acute on chronic hypoxic respiratory failure, likely secondary to acute chronic obstructive pulmonary disease (COPD) exacerbation. PROCEDURES: None. HISTORY OF PRESENT ILLNESS: The patient is a 60-year-old female with a past medical history of COPD on home oxygen at two liters, coronary artery disease, hypertension, bipolar disorder, hypothyroidism, anxiety, depression, obstructive sleep apnea not on continuous positive airway pressure (CPAP), fibromyalgia, dyslipidemia, degenerative disc disease, and gastroesophageal reflux disease (GERD), who presents to the emergency room with complaint of shortness of breath. The patient recently had admission on 05/29/2016, for COPD exacerbation. She noted that she has seen her paint sprayer sandblaster, Dr. Pacheco, because of this. The patient has been noting increased sputum production, yellowish-brown. The patient was admitted because of her COPD exacerbation. The patient was advised to come to the emergency room at the direction of her paint sprayer sandblaster. The patient was seen and examined at the bedside. HOSPITAL COURSE: 1. Acute hypercapnic and acute on chronic hypoxic respiratory failure likely secondary to acute COPD exacerbation. Presented with some shortness of breath, productive cough, increasing sputum production. Physical revealed improvement in her wheezing during hospital course. CT angiogram was negative for any pulmonary embolism. It revealed scattered bilateral pulmonary nodules for which she follows with pulmonary for followup. During the hospital course, she has continued with oxygen therapy and used to maintain a saturation between 90-92%. She has been on Levaquin. Today is day three of Levaquin. We will give her a prescription to complete a course of seven days. We will continue with the DuoNeb, Solu-Medrol, Advair and Spiriva. The patient has been on Solu-Medrol as inpatient; however, upon discharge we will give her a course of prednisone on a tapering basis. 2. Leukocytosis, likely reactive, secondary to steroid use. Review of systems has been negative. Sputum cultures are pending. We will continue with Levaquin. 3. Coronary artery disease, status post coronary artery bypass graft (CABG). She continues on aspirin, atorvastatin and bisoprolol. 4. Depression/bipolar disorder. Continue with buspirone, duloxetine, lamotrigine. 5. Hypertension. Blood pressure well controlled. Continue with bisoprolol and lisinopril and torsemide. 6. Hypothyroidism. Continue with Synthroid. 7. Dyslipidemia. Continue with atorvastatin. 8. Multiple lung nodules. Will need to followup with CT. Will followup with pulmonary as outpatient. 9. Gastroesophageal reflux disease (GERD). Will continue with omeprazole. 10. Deep venous thrombosis (DVT) prophylaxis. Will continue with heparin. DISCHARGE MEDICATIONS: The patient is being discharged home with the following: - Tylenol 1000 mg by mouth every six hours as needed for pain - albuterol inhaled two puffs every four hours - aspirin 81 mg by mouth daily - atorvastatin 80 mg by mouth at bedtime - bisoprolol 25 mg by mouth daily - buspirone 150 mg by mouth twice a day - duloxetine 60 mg by mouth daily - Flonase one spray in each nostril daily - gabapentin 300 mg by mouth three times a day - lamotrigine 100 mg by mouth twice a day - levothyroxine 50 mcg by mouth daily - lisinopril 2.5 mg by mouth daily - Ever[place]-Shetty one dose on her extremities four times a day as needed for pain - omeprazole 40 mg by mouth daily - Advair Diskus 250/50 one puff inhaled twice a day - Spiriva one puff inhaled daily New medications include: - benzonatate 100 mg by mouth three times a day as needed for cough - levofloxacin 750 mg by mouth daily for the next five days - prednisone 20 mg as directed on tapering basis DISCHARGE INSTRUCTIONS: The patient is advised to followup with her primary care provider and pulmonary doctors within the next one week. She has been advised to call to confirm/schedule appointments. She has been advised to remain compliant with treatment plan and medications, and return to the emergency room if she experiences any new problems. TIME SPENT ON DISCHARGE: 35 minutes.
== END 2016-06-01 13:24 | disposition home or self-care (01) | DRG 189 ==
LOC: M ED 21:39 → M ED INP 05-30 03:14 → M MSPAV 05-30 05:02
PROVIDERS: ADMIT Internal Medicine; ATTEND Internal Medicine
DX: J96.22 Acute and chronic respiratory failure with hypercapnia (principal); J44.1 Chronic obstructive pulmonary disease with (acute) exacerbation; J96.02 Acute respiratory failure with hypercapnia; I25.10 Atherosclerotic heart disease of native coronary artery without angina pectoris; I10 Essential (primary) hypertension; K21.9 Gastro-esophageal reflux disease without esophagitis; F31.9 Bipolar disorder, unspecified; E03.9 Hypothyroidism, unspecified; R91.8 Other nonspecific abnormal finding of lung field; F41.9 Anxiety disorder, unspecified; G47.33 Obstructive sleep apnea (adult) (pediatric); M79.7 Fibromyalgia; E78.00 Pure hypercholesterolemia, unspecified; Z87.891 Personal history of nicotine dependence; Z95.1 Presence of aortocoronary bypass graft; Z91.19 Patient's noncompliance with other medical treatment and regimen; Z99.81 Dependence on supplemental oxygen; Z79.82 Long term (current) use of aspirin; Z79.899 Other long term (current) drug therapy

== ENCOUNTER 2016-06-13 13:19 | Inpatient (IN) | payer MEDICARE, MEDICAID ==
[~2016-06-13] VITALS: Ht 165.1 cm; Wt 84.1 kg
[~2016-06-13 13:19] MED LIST changes: +BENGEL EXT; +BENZ100C5 PO; +HYDR-3713 PO; -HYDR1TAB97 PO; +LEVA750T PO; +PRED10TA FT
[2016-06-13] MEDS ORDERED: IPRATROPIUM 0.5MG/ALBUTEROL 2.5MG INH SOL UD 3ML (DUONEB)(J7620) As Ordered ONE (13:55)
[2016-06-13] MEDS ORDERED: ALBUTEROL SULFATE 2.5 MG/0.5 ML INH NEB SOLN As Ordered ONE ×2 (13:55→17:38)
[2016-06-13 14:08] LABS: BASO % 0.4 % (0.0-1.0); EOS % 0.6 % (0.0-3.0); LARGE UNSTAINED CELL # 0.2 K/mm3 (0.0-0.4); LARGE UNSTAINED CELL % 2.4 % (0.0-4.0); LYMPH # 0.9 K/mm3 (1.5-4.5); LYMPH % 10.3 % (24.0-44.0); MEAN CORPUSCULAR HEMOGLOBIN 32.1 pg (27.0-33.0); MEAN CORPUSCULAR HGB CONC 33.1 g/dl (32.0-36.5); MEAN CORPUSCULAR VOLUME 96.8 fl (80.0-96.0); MONO # 0.3 K/mm3 (0.0-0.8); MONO % 4.1 % (0.0-5.0); NEUTROPHILS # 6.9 K/mm3 (1.8-7.7); NEUTROPHILS % 82.2 % (36.0-66.0); PLATELET COUNT, AUTOMATED 345 k/mm3 (150-450); RED CELL DISTRIBUTION WIDTH 12.2 % (11.5-14.5); WHITE BLOOD COUNT 8.4 K/mm3 (4.0-10.0)
[2016-06-13 14:28] LABS: ANION GAP 7 MEQ/L (8-16); BLOOD UREA NITROGEN 12 MG/DL (7-18); CALCIUM LEVEL 8.4 MG/DL (8.5-10.1); CARBON DIOXIDE LEVEL 31 MEQ/L (21-32); CHLORIDE LEVEL 99 MEQ/L (98-107); CREATININE FOR GFR 0.48 MG/DL (0.55-1.02); GLOMERULAR FILTRATION RATE > 60.0 (>51); GLUCOSE, FASTING 189 MG/DL (70-105); POTASSIUM SERUM 4.2 MEQ/L (3.5-5.1); SODIUM LEVEL 137 MEQ/L (136-145)
--- NOTE | 2016-06-13 15:18 | REP ---
PA AND LATERAL CHEST RADIOGRAPH: 06/13/2016 INDICATION: Shortness of breath COMPARISON: AP portable chest 05/29/2016, CTA Findings: Cardiomediastinal silhouette is normal. Lungs are clear bilaterally. Hyperinflation and flattening of diaphragms is consistent with COPD. Small amount of bibasilar fibrotic scarring is noted. A 10 mm nodular density projected over the left 6th anterior rib most compatible with a known pulmonary nodule in this location as seen on CTA chest 05/30/2016 Impression 1. Normal cardiomediastinal silhouette 2. 10 mm nodular opacity with irregular margins projected over the left 6th anterior rib end, most compatible with known pulmonary nodule. Recommend interval follow-up CT of chest in 6 months . Nodules are new since 02/19/[address] chest 02/16/2016 Signed by Stefani Tipton MD 06/16/2016 10:43 A
[2016-06-13] MEDS ORDERED: fentaNYL 100 MCG/2 ML INJECTION (J3010) As Ordered ONE (15:31)
[2016-06-13] MEDS ORDERED: IBUP60TA PO (17:25)
[2016-06-13] MEDS ORDERED: DULO1CAP2 PO (17:25)
[2016-06-13] MEDS ORDERED: BENZ100C5 PO (17:25)
[2016-06-13] MEDS ORDERED: PRED10TA PO (17:25)
[2016-06-13] MEDS ORDERED: MORPHINE 2 MG/ML 1ML SYRINGE IV PRN (17:45)
[2016-06-13] MEDS ORDERED: IBUPROFEN 600 MG TAB PO PRN (17:45)
[2016-06-13] MEDS ORDERED: ACETAMINOPHEN 500 MG TAB PO PRN (17:45)
[2016-06-13] MEDS ORDERED: IPRATROPIUM 0.5MG/ALBUTEROL 2.5MG INH SOL UD 3ML (DUONEB)(J7620) NEB PRN (17:45)
[2016-06-13] MEDS ORDERED: BENZONATATE 100 MG CAP PO PRN (17:45)
[2016-06-13] MEDS ORDERED: MORPHINE 2 MG/ML 1ML SYRINGE As Ordered ONE ×2 (17:49→19:57)
[2016-06-13] MEDS ORDERED: ISOVUE-370 76% 100ML VIAL (Q9967) As Ordered ONE (17:57)
--- NOTE | 2016-06-13 18:50 | REPUSA ---
CLINICAL HISTORY: Chest pain and shortness of breath. TECHNIQUE: A CT-pulmonary angiogram was performed. A dose of intravenous contrast was administered. Axial images were displayed, as were sagittal and coronal reconstructions. A 3-D model was also rende red. FINDINGS: Comparison is made with the prior study dated 02/16/2016. 6 mm nodule is again noted at the left lung base. There is bilateral hilar adenopathy noted which is nonspecific, likely reactive. The heart is mildly enlarged. Small pericardial effusion is seen. Status post cholecystectomy. Two masses are noted in the right adrenal gland measuring 17 x and 22 mm respectively. These are hypodense and likely represent adenomas. Small hiatal hernia is present. No CT evidence of pulmonary embolism is identified. There is no evidence of thoracic aortic aneurysm or dissection. No air space consolidation is identified in the lungs. There is no evidence of pulmonary edema. No pa thologically enlarged hilar or mediastinal lymph nodes are identified. There is no evidence of pneumo thorax. Mild degenerative changes are noted in the spine. The included portion of the upper abdomen does not show significant abnormality. IMPRESSION: No CT evidence of pulmonary embolism. 6 mm nodule is again noted at the left lung base. The nodule is stable. Additional followup is 6-12 m onths. Bilateral hilar adenopathy noted which is nonspecific, likely reactive Two masses are noted in the right adrenal gland measuring 17 x and 22 mm respectively. These are hypo dense and likely represent adenomas. Thank you for your kind referral of this patient. We appreciate the opportunity to participate in thi s patient's care.
[2016-06-13 19:27] LABS: MEAN CORPUSCULAR HEMOGLOBIN 31.9 pg (27.0-33.0); MEAN CORPUSCULAR HGB CONC 32.9 g/dl (32.0-36.5); MEAN CORPUSCULAR VOLUME 96.9 fl (80.0-96.0); RED CELL DISTRIBUTION WIDTH 12.2 % (11.5-14.5); WHITE BLOOD COUNT 7.2 K/mm3 (4.0-10.0)
--- NOTE | 2016-06-13 20:33 | HPE ---
DATE OF ADMISSION: 06/13/2016 PRIMARY CARE PROVIDER: Dr. Vera from the resident's clinic. REASON FOR ADMISSION: Chest pain, chronic obstructive pulmonary disease (COPD) exacerbation. HISTORY OF PRESENT ILLNESS: Patient is a 60-year-old female, past medical history significant for coronary artery disease, COPD - on 2 liters of oxygen at baseline, degenerative disc disease, hypertension, hypothyroidism, hyperlipidemia, history of silent myocardial infarction (AZ), depression, gastroesophageal reflux disease (GERD), presented to the emergency room stating she has been feeling short of breath for the past few days, worsened this morning. She got three nebulizer treatments and Solu-Medrol dose in the ambulance. She was speaking full sentences, does not appear in any acute distress in the emergency room; however, she was requiring 4 liters of oxygen to keep her saturations above 90% and upon ambulation, her oxygen saturation dropped below 90%. Hospitalist was called for the admission. The patient also has been complaining of pleuritic chest pain. States it is stabbing in nature, constant, worse with deep inspiration or cough, nonradiating. The patient has been having a dry cough. Denies any fevers or chills. Denies any dizziness, sick contacts. Denies any abdominal pain, nausea or vomiting. The patient was admitted under hospitalist service. REVIEW OF SYSTEMS: 12-point review of systems was obtained, all of which was negative except for those mentioned above. PAST MEDICAL HISTORY: Significant for coronary artery disease, COPD - on oxygen at home, degenerative disc disease, depression, fibromyalgia, gastroesophageal reflux disease, human papillomavirus, hyperlipidemia, hypertension, hypothyroidism, history of a myocardial infarction (AZ). PAST SURGICAL HISTORY: Significant for cholecystectomy, left breast biopsy, dilation and curettage (D and C), tubal ligation, tonsillectomy, exploratory lap, cardiac catheterization which was negative. FAMILY HISTORY: Noncontributory. ALLERGIES: No known drug allergies. HOME MEDICATIONS: Include: - Tylenol Extra Strength every 6 hours as needed for pain - Ventolin two puffs inhaled every 4 hours as needed for shortness of breath - albuterol sulfate 2.5 mg inhaled every 4 hours as needed for shortness of breath - aspirin 81 mg by mouth daily - Lipitor 80 mg by mouth at bedtime - Tessalon Perles 100 mg by mouth three times a day as needed for cough - bisoprolol 2.5 mg by mouth daily - bupropion 150 mg by mouth twice a day - Lamictal 100 mg by mouth twice a day - ibuprofen 600 mg by mouth as needed for pain - gabapentin 300 mg by mouth three times a day - lisinopril 2.5 mg by mouth daily - Synthroid 50 mcg by mouth daily - omeprazole 40 mg by mouth daily - prednisone taper - Advair Diskus one puff inhaled twice a day - Spiriva one inhaled daily PHYSICAL EXAMINATION: Blood pressure 127/80, pulse 102, respiratory rate 28, temperature 97.6, pulse oximetry 95% on 3 liters nasal cannula. HEENT: Pupils equal, round, reactive to light and accommodation. Neck: Supple. Abdomen: Soft, nontender, nondistended. Cardiac: Regular rate and rhythm. Lungs: Diminished breath sounds with diffuse wheezes and rhonchi. Extremities: No clubbing, cyanosis or edema. LABORATORY FINDINGS: WBC is 8.4, hemoglobin 13.7, hematocrit 41.5, platelet count 345. Sodium 137, potassium 4.2, chloride 99, BUN 12, creatinine 0.48. First set of troponin was negative. Fasting glucose 189. IMAGING STUDIES: Chest x-ray showed 10 mm nodular opacity with irregular margins. Recommended CT followup in [address] angiogram was done to rule out pulmonary embolism (PE). Showed no CT evidence of pulmonary emboli. 6 mm nodule again is noted in the left lung base. ASSESSMENT AND PLAN: 1. Chronic obstructive pulmonary disease exacerbation. We will continue oxygen, titrate to keep oxygen saturation between 88 and 92. Will continue Solu-Medrol every 8 hours, DuoNebs as needed and scheduled. Continue Spiriva and Advair Diskus. 2. Pleuritic chest pain. CT angiogram (CTA) ruled out pulmonary emboli. Continue morphine as needed for pain. Continue to trend cardiac enzymes. 3. History of depression. Continue the patient's home medication. 4. History of hypertension. Continue the patient's home medication. 5. History of hyperlipidemia. Continue the patient's home medication. 6. Deep vein thrombosis (DVT) prophylaxis ordered.
--- NOTE | 2016-06-13 21:12 | EDDOCDS ---
Physician Documentation [facility] Name: Constance Zavala Age: 60 yrs Sex: Female : 1955 Arrival Date: 06/13/2016 Time: 13:19 Bed 17 Private MD: Wesley Muñoz D Disposition: 06/13/16 17:08 Hospitalization ordered by Adin Petersen for Observation. Preliminary diagnosis is Chronic obstructive pulmonary disease with (acute) exacerbation. - [facility] - Status is Observation. ttb - Condition is Stable. - Problem is an acute exacerbation. - Symptoms are unchanged. Historical: - Allergies: no known allergies; - Home Meds: 1. duloxetine 60 mg Oral cpDR 1 cap once daily 2. duloxetine 30 mg Oral cpDR 1 cap once daily 3. bupropion HCl 300 mg Oral Tb24 1 tab twice a day 4. lamotrigine 100 mg Oral tr24 bid 5. aspirin 81 mg Oral tab 1 tab once daily 6. lisinopril 2.5 mg Oral tab 1 tab once daily 7. bisoprolol fumarate 5 mg oral tab 0.5 tab once daily 8. gabapentin 300 mg Oral cap 1 cap 3 times per day 9. atorvastatin 80 mg oral tab 1 tab once daily 10. levothyroxine 50 mcg Oral tab 1 tab once daily 11. Spiriva with HandiHaler 18 mcg Inhl CpDv 1 cap once daily 12. Advair Diskus 250-50 mcg/dose Inhl dsdv 13. albuterol sulfate 2.5 mg /3 mL (0.083 %) Inhl nebu 3 mL 4 times per day 14. Ventolin HFA 90 mcg/actuation Nebulizer HFAA 1 puff every 4-6 hours 15. Home O2 2L 16. fluticasone 50 mcg/actuation nasal spsn 1 spray once daily 17. unknown abx by hospitalist - PMHx: CAD; COPD; Degenerative disc disease; Depression; GERD; HPV; Hypercholesterolemia; Hypertension; Hypothyroidism; NE; - PSHx: Cholecystectomy; CABG; Breast biopsy- Left; D & C; Tubal ligation; Tonsillectomy; Exploratory lap; - Family history: Not pertinent. - Social history: Smoking status: Patient states former smoker of tobacco. No barriers to communication noted, The patient speaks fluent [place], Speaks appropriately for age. - : The pt / caregiver states he / she is not on anticoagulants. Home medication list is obtained from the patient. - Exposure Risk Screening:: None identified. Vital Signs: 06/13 13:31 BP 127 / 80 (auto/); ttb 13:32 Pulse 102 MON; Resp 28; Pulse Ox 95% on 3 lpm NC; Pain 0/10; ttb 13:36 Temp 97.6(TE); Weight 85.73 kg / 189 lbs; Height 5 ft. 8 in. (172.72 cm); ttb 14:30 Pulse 96 MON; Pulse Ox 94% ; ttb 15:00 Pulse Ox 93% ; ttb 15:30 Pulse 98 MON; Resp 20; Pulse Ox 93% on 3 lpm NC; ttb 15:56 BP 133 / 75 (auto/); ttb 15:56 Pulse 98 MON; Pulse Ox 95% on 3 lpm NC; ttb 16:00 Resp 22; Pulse Ox 95% on 3 lpm NC; ttb 16:41 Pulse Ox 90% on 3 lpm NC; jb5 18:14 BP 138 / 61 (auto/); ttb 18:14 Pulse 104 MON; Resp 18 S; Pulse Ox 95% on R/A; ttb 18:35 Temp 98.4(O); ttb 20:00 BP 141 / 74; Pulse 108 MON; Resp 24 S; Pulse Ox 94% ; Pain 5/10; ttb 21:03 BP 148 / 75 (auto/); ttb 21:03 Pulse 106 MON; Resp 22; Temp 97.3(TE); Pulse Ox 94% on 2 lpm NC; Pain 8/10; ttb 13:36 Body Mass Index 28.74 (85.73 kg, 172.72 cm) ttb 16:41 while walking to the bathroom very winded and stayed at 90 and showed signs of jb5 shortness of breath patient stated her chest hurt when we returned to room 17 MDM: 13:55 Albuterol 5 mg Nebulizer once ordered. le 13:55 Albuterol-Ipratropium 3 ml Inhalation once ordered. le 13:55 Call Respiratory ordered. le 13:55 -Blood Culture (Adults Only), peripheral from different site, or from device/port/PICC le etc. if present ordered. 13:55 Drier Operator/Pulse Ox/q 15 min VS ordered. le 13:55 IV Saline Lock ordered. le 13:55 Oxygen at 4L/Min NC or Home dosage ordered. le 13:55 Rhythm Strip to chart ordered. le 13:56 Chest, 2 View (pa\E\lat) Ordered. EDMS 13:56 ECG WITH READING ER PHYS+CARDIAG ordered. EDMS 13:56 -Blood Culture Ordered. EDMS 13:56 Basic Metabolic Profile Ordered. EDMS 13:57 CBC with Diff Ordered. EDMS 13:57 Troponin Ordered. EDMS 13:59 -Blood Culture (Adults Only), peripheral from different site, or from device/port/PICC lbd etc. if present complete. 14:00 Call Respiratory complete. lbd 14:02 BLOOD CULTURES Ordered. EDMS 15:12 fentaNYL (PF) 25 mcg IVP once ordered. le 15:23 [facility] [place] was scanned into [employer] and attached to record. jp5 15:23 Financial registration complete. jp5 16:16 Basic Metabolic Profile Reviewed. le 16:16 CBC with Diff Reviewed. le 16:16 Troponin Reviewed. le 16:16 Chest, 2 View (pa\E\lat) Reviewed. le 16:18 Ambulate Patient [facility] Pulse Oximetry ordered. le 16:51 BED REQUEST+ADM ordered. EDMS 17:08 Albuterol 2.5 mg Nebulizer once ordered. le 17:34 morphine 1 mg IVP once ordered. jjr 17:51 TROPONIN Ordered. EDMS 17:51 COMPLETE BLOOD COUNT Ordered. EDMS 17:52 COMPLETE BLOOD COUNT Ordered. EDMS 17:55 Admission / Observation Status ordered. EDMS 17:55 ELECTROCARDIOGRAM ADULT ordered. EDMS 17:55 CT ANGIO CHEST Ordered. EDMS 17:55 2 GRAM SODIUM DIET ordered. EDMS 19:31 TROPONIN Ordered. EDMS 19:31 TROPONIN Ordered. EDMS 19:31 COMPLETE BLOOD COUNT Ordered. EDMS 19:31 COMPLETE BLOOD COUNT Ordered. EDMS 19:31 COMPLETE BLOOD COUNT Ordered. EDMS 19:31 COMPLETE BLOOD COUNT Ordered. EDMS 19:31 COMPLETE COMPHRENSIVE METABOLI Ordered. EDMS 19:31 MAGNESIUM LEVEL Ordered. EDMS 19:53 morphine 1 mg IVP once; one time dose in ED. Continue Q4 hr on floor. Per Dr. Petersen ttiban ordered. Administered Medications: 13:59 Drug: Albuterol 5 mg [albuterol sulfate 2.5 mg/0.5 mL solution for nebulization (1 mL)] rs5 Route: Nebulizer; 13:59 Drug: Albuterol-Ipratropium 3 ml [ipratropium-albuterol 0.5 mg-3 mg(2.5 mg base)/3 mL rs5 nebulization soln (3 mL)] Route: Inhalation; 14:04 CANCELLED (Given by EMS): Solu-MEDROL 125 mg IVP once le 15:36 Drug: fentaNYL (PF) 25 mcg [fentanyl (PF) 50 mcg/mL injection solution (0.5 mL)] Route: ttb IVP; Site: left antecubital; 16:00 Follow up: Resp 22 bpm; Pulse Ox 95% 3 lpm Nasal Cannula; Response: No Adverse ttb Reaction; Pain is decreased 17:41 Drug: Albuterol 2.5 mg [albuterol sulfate 2.5 mg/0.5 mL solution for nebulization (0.5 js11 mL)] Route: Nebulizer; 17:53 Drug: morphine 1 mg [morphine 2 mg/mL intravenous cartridge (0.5 mL)] Route: IVP; Site: ttb left antecubital; 20:00 Drug: morphine 1 mg [morphine 2 mg/mL intravenous cartridge (0.5 mL)] Route: IVP; Site: ttb left antecubital; Signatures: Dispatcher [employer] EDSuze Marin, Pulp Bleacher Unit lbd Judie Jain, BOOKKEEPING CLERK BOOKKEEPING CLERK Sugey Kline RN RN jjr Quay, Paulina, RN RN pml Conner, Teresa, RN RN ttFabian Doran jp5 Aris Garvin js11 Bishop Rojo rs5 The chart was reviewed and I authenticate all verbal orders and agree with the evaluation and treatment provided.Corrections: (The following items were deleted from the chart) 14:04 13:55 Solu-MEDROL 125 mg IVP once ordered. le le Attachments: 15:23 ON LICENSE OF [facility] Payment Agreement jp5 MTDD
--- NOTE | 2016-06-13 21:12 | EDDOCDS ---
Nurse's Notes [facility] Name: Constance Zavala Age: 60 yrs Sex: Female : 1955 Arrival Date: 06/13/2016 Time: 13:19 Bed 17 Private MD: Wesley Muñoz D Diagnosis: Chronic obstructive pulmonary disease with (acute) exacerbation Presentation: 06/13 13:21 Presenting complaint: Patient states: shortness of breath for last few days - worse pml this AM - given 3 nebs enroute with Solu-Medrol as well. speaking in full sentences. Adult Sepsis Screening: The patient does not have new or worsening altered mentation. Patient's respiratory rate is less than 22. Patient has a qSOFA score of 0- Negative Sepsis Screen. Suicide/Homicide risk assessment- the patient denies having any suicidal and/or homicidal ideations and does not present with any other emotional, behavioral or mental health complaints. Transition of care: patient was not received from another setting of care. 13:21 Acuity: JAYCEE Level 2 pml 13:21 Method Of Arrival: Ambulance pml 13:49 Status: Patient is not a supervisor customer complaint service or dependent. ttb Triage Assessment: 13:48 General: see triage assessment.. HIV screening NA for this visit Offered previously. ttb Neurological: Level of Consciousness is awake, alert, Oriented to person, place, time, Speech is normal. Respiratory: Onset: The symptoms/episode began/occurred gradually. Historical: - Allergies: no known allergies; - Home Meds: 1. duloxetine 60 mg Oral cpDR 1 cap once daily 2. duloxetine 30 mg Oral cpDR 1 cap once daily 3. bupropion HCl 300 mg Oral Tb24 1 tab twice a day 4. lamotrigine 100 mg Oral tr24 bid 5. aspirin 81 mg Oral tab 1 tab once daily 6. lisinopril 2.5 mg Oral tab 1 tab once daily 7. bisoprolol fumarate 5 mg oral tab 0.5 tab once daily 8. gabapentin 300 mg Oral cap 1 cap 3 times per day 9. atorvastatin 80 mg oral tab 1 tab once daily 10. levothyroxine 50 mcg Oral tab 1 tab once daily 11. Spiriva with HandiHaler 18 mcg Inhl CpDv 1 cap once daily 12. Advair Diskus 250-50 mcg/dose Inhl dsdv 13. albuterol sulfate 2.5 mg /3 mL (0.083 %) Inhl nebu 3 mL 4 times per day 14. Ventolin HFA 90 mcg/actuation Nebulizer HFAA 1 puff every 4-6 hours 15. Home O2 2L 16. fluticasone 50 mcg/actuation nasal spsn 1 spray once daily 17. unknown abx by hospitalist - PMHx: CAD; COPD; Degenerative disc disease; Depression; GERD; HPV; Hypercholesterolemia; Hypertension; Hypothyroidism; MD; - PSHx: Cholecystectomy; CABG; Breast biopsy- Left; D & C; Tubal ligation; Tonsillectomy; Exploratory lap; - Family history: Not pertinent. - Social history: Smoking status: Patient states former smoker of tobacco. No barriers to communication noted, The patient speaks fluent Icelandic, Speaks appropriately for age. - : The pt / caregiver states he / she is not on anticoagulants. Home medication list is obtained from the patient. - Exposure Risk Screening:: None identified. Screenin:10 Screening information is obtained from the patient. Fall risk: No risks identified. ttb Assistance ADL's: requires no assistance with activities of daily living. Abuse/DV Screen: The patient / caregiver reports he/she is: not in a situation that causes fear, pain or injury. Nutritional screening: No deficits noted. Advance Directives: Currently, there is no health care proxy. home support is adequate. Assessment: 13:34 General: Appears uncomfortable, well nourished, well groomed, Behavior is anxious, ttb appropriate for age, cooperative, pleasant, restless. Pain: Denies pain. Neurological: Level of Consciousness is awake, alert, Oriented to person, place, time, Speech is normal. Cardiovascular: Heart tones S1 S2 present Rhythm is sinus tachycardia No ectopy. Chest pain is denied. Respiratory: Airway is patent Respiratory effort is even, shallow, Respiratory pattern is tachypnea Breath sounds with wheezes inspiratory expiratory bilaterally. Reports shortness of breath at rest labored breathing since worsening since 2 days ago the patient has moderate shortness of breath Denies pain with respiration. GI: Denies nausea, vomiting, pain. Derm: Skin is normal. 14:20 Reassessment: pt received nebs. KNITTING MACHINE FIXER HEAD in with pt at this time. Aware of impending ttb admission.. 15:20 General: pt states she has pain to right side/mid back/epigastric area. KNITTING MACHINE FIXER HEAD aware. Meds ttb ordered.. 16:15 Reassessment: Patient appears in no apparent distress at this time. Patient states ttb feeling better. Patient states symptoms have improved. pt states pain improved after meds given. . 16:15 Neurological: Level of Consciousness is awake, alert. Respiratory: Airway is patent ttb Respiratory effort is even, unlabored, Respiratory pattern is regular, tachypnea Reports shortness of breath improved. the patient has mild shortness of breath. 17:15 Reassessment: Patient appears in no apparent distress at this time. pt resting on ttb stretcher. Hospitalist visited pt for admission to floor. . 17:15 Neurological: Level of Consciousness is awake, alert. Cardiovascular: Rhythm is sinus ttb tachycardia Chest pain is denied. Respiratory: Airway is patent Respiratory effort is even, Respiratory pattern is regular, tachypnea Reports shortness of breath at rest the patient has mild shortness of breath. 17:53 Reassessment: Patient appears in no apparent distress at this time. pt states right ttb sided pain returned after using bathroom. Meds given as ordered by hospitalist. 1mg IV morphine. Pt resting on stretcher. ST on monitor. Denies increased SOB. Sat 95 on 3L NC.. 18:30 Adult Sepsis Screening: The patient does not have new or worsening altered mentation. ttb Patient has a respiratory rate of greater than or equal to 22 (1 point). Systolic blood pressure is greater than 100. Patient has a qSOFA score of 1- Negative Sepsis Screen. 18:45 Reassessment: Patient appears in no apparent distress at this time. Patient states ttb symptoms have improved. pt states improved breathing since arrival. Denies cp. ST on monitor . 18:45 Pain: Location: right upper quad/back pain. Cardiovascular: Chest pain is denied. ttb Respiratory: Airway is patent Respiratory effort is even, the patient has mild shortness of breath. 19:45 Reassessment: pt resting on stretcher. Requests more pain meds. Hospitalist aware . ttb 20:02 Adult Sepsis Screening: The patient does not have new or worsening altered mentation. ttb Patient has a respiratory rate of greater than or equal to 22 (1 point). Systolic blood pressure is greater than 100. Patient has a qSOFA score of 1- Negative Sepsis Screen. General: pt speaking with admission RN. Awaiting room upstairs. Room/RN not ready at this time. . Respiratory: Airway is patent Respiratory effort is even, shallow, Respiratory pattern is regular, tachypnea Reports shortness of breath at rest the patient has mild shortness of breath. 20:02 General: pain meds given per hospitalist orders.. ttb 20:30 General: Appears in no apparent distress. Neurological: Level of Consciousness is ttb awake, alert. Respiratory: Airway is patent Respiratory effort is even, Reports shortness of breath the patient has mild shortness of breath. 21:00 Adult Sepsis Screening: The patient does not have new or worsening altered mentation. ttb Patient has a respiratory rate of greater than or equal to 22 (1 point). Systolic blood pressure is greater than 100. Patient has a qSOFA score of 1- Negative Sepsis Screen. 21:06 General: floor states they are ready to receive pt at this time. MInimal change in pain ttb since morphine given. . Neurological: Level of Consciousness is awake, alert. Cardiovascular: Rhythm is sinus tachycardia Chest pain is denied. Respiratory: Airway is patent Respiratory effort is even, the patient has mild shortness of breath. GI: Denies nausea, vomiting, pain. Vital Signs: 13:31 BP 127 / 80 (auto/); ttb 13:32 Pulse 102 MON; Resp 28; Pulse Ox 95% on 3 lpm NC; Pain 0/10; ttb 13:36 Temp 97.6(TE); Weight 85.73 kg; Height 5 ft. 8 in. (172.72 cm); ttb 14:30 Pulse 96 MON; Pulse Ox 94% ; ttb 15:00 Pulse Ox 93% ; ttb 15:30 Pulse 98 MON; Resp 20; Pulse Ox 93% on 3 lpm NC; ttb 15:56 BP 133 / 75 (auto/); ttb 15:56 Pulse 98 MON; Pulse Ox 95% on 3 lpm NC; ttb 16:00 Resp 22; Pulse Ox 95% on 3 lpm NC; ttb 16:41 Pulse Ox 90% on 3 lpm NC; jb5 18:14 BP 138 / 61 (auto/); ttb 18:14 Pulse 104 MON; Resp 18 S; Pulse Ox 95% on R/A; ttb 18:35 Temp 98.4(O); ttb 20:00 BP 141 / 74; Pulse 108 MON; Resp 24 S; Pulse Ox 94% ; Pain 5/10; ttb 21:03 BP 148 / 75 (auto/); ttb 21:03 Pulse 106 MON; Resp 22; Temp 97.3(TE); Pulse Ox 94% on 2 lpm NC; Pain 8/10; ttb 13:36 Body Mass Index 28.74 (85.73 kg, 172.72 cm) ttb 16:41 while walking to the bathroom very winded and stayed at 90 and showed signs of jb5 shortness of breath patient stated her chest hurt when we returned to room 17 Vitals: 13:48 Log In Time N/A - ambulance arrival. ttb ED Course: 13:20 Patient visited by Suze Snyder Unit Clerk. lbd 13:20 Patient moved to Waiting lbd 13:21 Wesley Muñoz is Private Physician. lbd 13:21 Patient moved to 17 lbd 13:22 Triage Initiated pml 13:30 The patient / caregiver is instructed regarding the plan of care and ED course. Patient ttb has correct armband on for positive identification. Placed in gown. Bed in low position. Call light in reach. Side rails up X2. ip litigation paralegal on. Pulse ox on. NIBP on. 13:36 Patient visited by Мария Magallon RN. ttb 13:45 Judie Jain FNP [facility]. le 13:49 Maintain field IV. Dressing intact. Site clean & dry. Gauge & site: 20LH. ttb 13:50 Patient visited by Мария Magallon RN. ttb 13:50 Discontinued IV lock intact, bleeding controlled, pressure dressing applied, No ttb redness/swelling at site. 13:50 Inserted peripheral IV: 20gauge IV in left antecubital area and blood collected. ttb Patient tolerated the procedure well. Labs drawn. (by ED staff). 13:52 Patient visited by Judie Jain FNP. le 13:52 Patient visited by Judie Jain FNP. le 14:00 Basic Metabolic Profile Sent. ttb 14:00 CBC with Diff Sent. ttb 14:00 Troponin Sent. ttb 14:06 Patient visited by Reji Hagen PCA. jrd 14:06 EKG done. (by ED staff). Reviewed by Judie SIMONS. jrd 14:20 Patient visited by Мария Magallon RN. ttb 15:23 [facility] Payment Agreement was scanned into [employer] and attached to record. jp5 15:27 Patient visited by Мария Magallon RN. ttb 15:28 Patient visited by Мария Magallon RN. ttb 15:32 Chest, 2 View (pa\E\lat) Returned. EDMS 15:40 BLOOD CULTURES Sent. rn1 15:45 Patient visited by Мария Magallon RN. ttb 16:35 Patient visited by Мария Magallon RN. ttb 16:37 Patient visited by Мария Magallon RN. ttb 16:43 Patient visited by Nelida David PCA. jb5 17:08 Adin Petersen is Hospitalizing Provider. le 17:11 Patient name changed from Constance\S\M\S\Zavala\S\ to Constance\S\Gomez\S\Zavala. EDMS 17:29 Patient visited by Мария Magallon RN. ttb 17:55 Patient visited by Мария Magallon RN. ttb 19:20 CT ANGIO CHEST Returned. EDMS 21:10 No procedures done that require assistance. ttb 21:11 Patient visited by Мария Magallon RN. ttb Administered Medications: 13:59 Drug: Albuterol 5 mg [albuterol sulfate 2.5 mg/0.5 mL solution for nebulization (1 mL)] rs5 Route: Nebulizer; 13:59 Drug: Albuterol-Ipratropium 3 ml [ipratropium-albuterol 0.5 mg-3 mg(2.5 mg base)/3 mL rs5 nebulization soln (3 mL)] Route: Inhalation; 14:04 CANCELLED (Given by EMS): Solu-MEDROL 125 mg IVP once le 15:36 Drug: fentaNYL (PF) 25 mcg [fentanyl (PF) 50 mcg/mL injection solution (0.5 mL)] Route: ttb IVP; Site: left antecubital; 16:00 Follow up: Resp 22 bpm; Pulse Ox 95% 3 lpm Nasal Cannula; Response: No Adverse ttb Reaction; Pain is decreased 17:41 Drug: Albuterol 2.5 mg [albuterol sulfate 2.5 mg/0.5 mL solution for nebulization (0.5 js11 mL)] Route: Nebulizer; 17:53 Drug: morphine 1 mg [morphine 2 mg/mL intravenous cartridge (0.5 mL)] Route: IVP; Site: ttb left antecubital; 20:00 Drug: morphine 1 mg [morphine 2 mg/mL intravenous cartridge (0.5 mL)] Route: IVP; Site: ttb left antecubital; RT: 13:59 Initial Med Neb Given as ordered Patient was instructed and evaluated on procedure rs5 Subsequent Med Neb Given as ordered Patient tolerated procedure well without adverse effect. Respiratory: Respiratory effort is even, labored, Use of accessory muscles noted. Respiratory pattern is regular symmetrical, Breath sounds are diminished Breath sounds with wheezes bilaterally. 17:41 Subsequent Med Neb Given as ordered Patient tolerated procedure well without adverse js11 effect. O2 via nasal cannula \T\ 3L/min. Respiratory: Breath sounds are diminished bilaterally. Breath sounds with wheezes bilaterally. at expiration. Order Results: Lab Order: Basic Metabolic Profile; SPEC'M 06/13/16 13:44 Test: GLUCOSE, FASTING; Value: 189; Range: 70-105; Abnormal: Above high normal; Units: MG/DL; Status: F Test: BLOOD UREA NITROGEN; Value: 12; Range: 7-18; Units: MG/DL; Status: F Test: CREATININE FOR GFR; Value: 0.48; Range: 0.55-1.02; Abnormal: Below low normal; Units: MG/DL; Status: F Test: GLOMERULAR FILTRATION RATE; Value: > 60.0; Range: >51; Status: F Test: SODIUM LEVEL; Value: 137; Range: 136-145; Units: MEQ/L; Status: F Test: POTASSIUM SERUM; Value: 4.2; Range: 3.5-5.1; Units: MEQ/L; Status: F Test: CHLORIDE LEVEL; Value: 99; Range: 98-107; Units: MEQ/L; Status: F Test: CARBON DIOXIDE LEVEL; Value: 31; Range: 21-32; Units: MEQ/L; Status: F Test: ANION GAP; Value: 7; Range: 8-16; Abnormal: Below low normal; Units: MEQ/L; Status: F Test: CALCIUM LEVEL; Value: 8.4; Range: 8.5-10.1; Abnormal: Below low normal; Units: MG/DL; Status: F Test Note: ; Units are mL/min/1.73 m2 Chronic Kidney Disease Staging per NKF: Stage I & II GFR >=60 Normal to Mildly Decreased Stage III GFR 30-59 Moderately Decreased Stage IV GFR 15-29 Severely Decreased Stage V GFR <15 Very Little GFR Left ESRD GFR <15 on CRYOLITE RECOVERY OPERATOR Lab Order: CBC with Diff; SPEC'M 06/13/16 13:44 Test: WHITE BLOOD COUNT; Value: 8.4; Range: 4.0-10.0; Units: K/mm3; Status: F Test: RED BLOOD COUNT; Value: 4.28; Range: 4.00-5.40; Units: M/mm3; Status: F Test: HEMOGLOBIN; Value: 13.7; Range: 12.0-16.0; Units: g/dl; Status: F Test: HEMATOCRIT; Value: 41.5; Range: 36.0-47.0; Units: %; Status: F Test: MEAN CORPUSCULAR VOLUME; Value: 96.8; Range: 80.0-96.0; Abnormal: Above high normal; Units: fl; Status: F Test: MEAN CORPUSCULAR HEMOGLOBIN; Value: 32.1; Range: 27.0-33.0; Units: pg; Status: F Test: MEAN CORPUSCULAR HGB CONC; Value: 33.1; Range: 32.0-36.5; Units: g/dl; Status: F Test: RED CELL DISTRIBUTION WIDTH; Value: 12.2; Range: 11.5-14.5; Units: %; Status: F Test: PLATELET COUNT, AUTOMATED; Value: 345; Range: 150-450; Units: k/mm3; Status: F Test: NEUTROPHILS %; Value: 82.2; Range: 36.0-66.0; Abnormal: Above high normal; Units: %; Status: F Test: LYMPH %; Value: 10.3; Range: 24.0-44.0; Abnormal: Below low normal; Units: %; Status: F Test: MONO %; Value: 4.1; Range: 0.0-5.0; Units: %; Status: F Test: EOS %; Value: 0.6; Range: 0.0-3.0; Units: %; Status: F Test: BASO %; Value: 0.4; Range: 0.0-1.0; Units: %; Status: F Test: LARGE UNSTAINED CELL %; Value: 2.4; Range: 0.0-4.0; Units: %; Status: F Test: NEUTROPHILS #; Value: 6.9; Range: 1.8-7.7; Units: K/mm3; Status: F Test: LYMPH #; Value: 0.9; Range: 1.5-4.5; Abnormal: Below low normal; Units: K/mm3; Status: F Test: MONO #; Value: 0.3; Range: 0.0-0.8; Units: K/mm3; Status: F Test: EOS #; Value: 0.0; Range: 0.0-0.50; Units: K/mm3; Status: F Test: BASO #; Value: 0.0; Range: 0.0-0.2; Units: K/mm3; Status: F Test: LARGE UNSTAINED CELL #; Value: 0.2; Range: 0.0-0.4; Units: K/mm3; Status: F Lab Order: Troponin; SPEC'M 06/13/16 13:44 Test: TROPONIN I; Value: < 0.02; Range: < 0.10; Units: NG/ML; Status: F Test Note: ; Troponin I Reference Interval for [employer]: 99th Percentile= 0.00-0.045 ng/ml Risk Stratification: <= 0.10 ng/ml Decreased Risk for Adverse Clinical Events. 0.10-1.50 ng/ml Increased Risk for Adverse Clinical Events. Evaluation of additional criterion and/or repeat testing in 2-6 hours is suggested to rule out myocardial damage. >= 1.50 ng/ml Indicative of Myocardial Injury. Lab Order: TROPONIN; SPEC'M 06/13/16 19:08 Test: TROPONIN I; Value: < 0.02; Range: < 0.10; Units: NG/ML; Status: F Test Note: ; Troponin I Reference Interval for [employer]: 99th Percentile= 0.00-0.045 ng/ml Risk Stratification: <= 0.10 ng/ml Decreased Risk for Adverse Clinical Events. 0.10-1.50 ng/ml Increased Risk for Adverse Clinical Events. Evaluation of additional criterion and/or repeat testing in 2-6 hours is suggested to rule out myocardial damage. >= 1.50 ng/ml Indicative of Myocardial Injury. Lab Order: COMPLETE BLOOD COUNT; SPEC'M 06/13/16 19:08 Test: WHITE BLOOD COUNT; Value: 7.2; Range: 4.0-10.0; Units: K/mm3; Status: F Test: RED BLOOD COUNT; Value: 4.34; Range: 4.00-5.40; Units: M/mm3; Status: F Test: HEMOGLOBIN; Value: 13.8; Range: 12.0-16.0; Units: g/dl; Status: F Test: HEMATOCRIT; Value: 42.1; Range: 36.0-47.0; Units: %; Status: F Test: MEAN CORPUSCULAR VOLUME; Value: 96.9; Range: 80.0-96.0; Abnormal: Above high normal; Units: fl; Status: F Test: MEAN CORPUSCULAR HEMOGLOBIN; Value: 31.9; Range: 27.0-33.0; Units: pg; Status: F Test: MEAN CORPUSCULAR HGB CONC; Value: 32.9; Range: 32.0-36.5; Units: g/dl; Status: F Test: RED CELL DISTRIBUTION WIDTH; Value: 12.2; Range: 11.5-14.5; Units: %; Status: F Test: PLATELET COUNT, AUTOMATED; Value: 343; Range: 150-450; Units: k/mm3; Status: F Radiology Order: Chest, 2 View (pa\E\lat) Test: Chest, 2 View (pa\E\lat) REASON FOR EXAMINATION: Shortness of Breath; PA AND LATERAL CHEST RADIOGRAPH: 06/13/2016; ; INDICATION: Shortness of breath; ; COMPARISON: AP portable chest 05/29/2016, CTA; ; Findings: Cardiomediastinal silhouette is normal. Lungs are clear bilaterally.; Hyperinflation and flattening of diaphragms is consistent with COPD. Small; amount of bibasilar fibrotic scarring is noted. A 10 mm nodular density; projected over the left 6th anterior rib most compatible with a known pulmonary; nodule in this location as seen on CTA chest 05/30/2016; ; Impression; 1. Normal cardiomediastinal silhouette; 2. 10 mm nodular opacity with irregular margins projected over the left 6th; anterior rib end, most compatible with known pulmonary nodule. Recommend; interval follow-up CT of chest in 6 months . Nodules are new since 02/19/2012; and unchanged from CT chest 02/16/2016; ; ; ; ; ; ; Unreviewed; Radiology Order: CT ANGIO CHEST Test: CT ANGIO CHEST REASON FOR EXAMINATION: chest pain, shortness of breath; ; CLINICAL HISTORY: Chest pain and shortness of breath.; ; TECHNIQUE: A CT-pulmonary angiogram was performed. A dose of intravenous contrast was administered.; Axial images were displayed, as were sagittal and coronal reconstructions. A 3-D model was also rende; red.; FINDINGS:; Comparison is made with the prior study dated 02/16/2016.; 6 mm nodule is again noted at the left lung base.; ; There is bilateral hilar adenopathy noted which is nonspecific, likely reactive. The heart is mildly; enlarged. Small pericardial effusion is seen.; ; Status post cholecystectomy. Two masses are noted in the right adrenal gland measuring 17 x and 22 mm; respectively. These are hypodense and likely represent adenomas. Small hiatal hernia is present.; ; No CT evidence of pulmonary embolism is identified.; There is no evidence of thoracic aortic aneurysm or dissection.; No air space consolidation is identified in the lungs. There is no evidence of pulmonary edema. No pa; thologically enlarged hilar or mediastinal lymph nodes are identified. There is no evidence of pneumo; thorax.; Mild degenerative changes are noted in the spine. The included portion of the upper abdomen does not; show significant abnormality.; IMPRESSION:; No CT evidence of pulmonary embolism.; 6 mm nodule is again noted at the left lung base. The nodule is stable. Additional followup is 6-12 m; onths.; Bilateral hilar adenopathy noted which is nonspecific, likely reactive; Two masses are noted in the right adrenal gland measuring 17 x and 22 mm respectively. These are hypo; dense and likely represent adenomas.; Thank you for your kind referral of this patient. We appreciate the opportunity [facility]; s patient's care.; ; ; Outcome: 17:08 Decision to Hospitalize by Provider. le 21:08 Discharge Assessment: Patient awake and alert. patient administered narcotics - yes. ttb Patient was admitted to the hospital or transferred to another facility. The following High Risk Discharge criteria are identified: Yes, admit. Admitted to PCU accompanied by nurse, accompanied by tech, via stretcher, with oxygen, on monitor, with chart. Condition: good Condition: stable Condition: improved. Instructed on admission process. No special radiology studies were completed. Admission hand-off: Report called to WANDA Rivera on PCU. Property :Personal belongings accompany Pt. 21:11 Patient left the ED. ttb Signatures: Dispatcher [employer] EDMS Suze Snyder, Lithographic Photographer Apprentice Unit lbd Nelida David, CERTIFIED PARALEGAL CERTIFIED PARALEGAL jb5 Judie Jain, FEDERAL APPELLATE LAW CLERK FEDERAL APPELLATE LAW CLERK Aris Katz js11 Bishop Rojo,RT RT rs5 Olga Devi RN RN Мария Montes RN RN ttb Reji Hagen, CERTIFIED PARALEGAL CERTIFIED PARALEGAL d Michael Pompa rn1 Fabian Byrd jp5 [id number]
[2016-06-13 21:15] VITALS: BP 154/84
[2016-06-13] MEDS: ATORVASTATIN 20 MG TAB PO SCH (21:43)
[2016-06-13] MEDS: methylPREDNISolone INJ 125 MG/2 ML VIAL (J2930) IV SCH (21:43)
[2016-06-13] MEDS: GABAPENTIN 300 MG CAP PO SCH (21:43)
[2016-06-13] MEDS: lamoTRIgine 100MG TAB PO SCH (21:43)
[2016-06-13] MEDS: DULoxetine 30 MG CAP (CYMBALTA) PO SCH (21:43)
[2016-06-13] MEDS: IPRATROPIUM 0.5MG/ALBUTEROL 2.5MG INH SOL UD 3ML (DUONEB)(J7620) NEB SCH (22:40)
[2016-06-13 22:41] VITALS: O2SAT 97
[2016-06-13] MEDS: ADVAIR DISKUS 250/50 INH PWD INH SCH (22:41)
[2016-06-14] VITALS (8 sets, daily range): BP systolic 142–168; BP diastolic 72–89; PULSE 103; O2SAT 93
[2016-06-14 00:02] LABS: MEAN CORPUSCULAR HEMOGLOBIN 31.9 pg (27.0-33.0); MEAN CORPUSCULAR HGB CONC 32.3 g/dl (32.0-36.5); MEAN CORPUSCULAR VOLUME 98.6 fl (80.0-96.0); RED CELL DISTRIBUTION WIDTH 13.2 % (11.5-14.5)
[2016-06-14] MEDS: buPROPion 75 MG TAB PO SCH ×3 (00:34→21:18)
[2016-06-14] MEDS: IPRATROPIUM 0.5MG/ALBUTEROL 2.5MG INH SOL UD 3ML (DUONEB)(J7620) NEB SCH ×4 (02:00→20:04)
[2016-06-14 05:19] LABS: MEAN CORPUSCULAR HEMOGLOBIN 32.1 pg (27.0-33.0); MEAN CORPUSCULAR HGB CONC 32.9 g/dl (32.0-36.5); MEAN CORPUSCULAR VOLUME 97.7 fl (80.0-96.0); RED CELL DISTRIBUTION WIDTH 12.1 % (11.5-14.5); WHITE BLOOD COUNT 6.5 K/mm3 (4.0-10.0)
[2016-06-14] MEDS: LEVOTHYROXINE 0.05 MG TAB (50 MCG) PO SCH (05:21)
[2016-06-14] MEDS: methylPREDNISolone INJ 125 MG/2 ML VIAL (J2930) IV SCH ×3 (05:21→21:19)
[2016-06-14 05:33] LABS: ALBUMIN 3.2 GM/DL (3.2-5.2); ALBUMIN/GLOBULIN RATIO 0.89 (1.00-1.93); ALKALINE PHOSPHATASE 89 U/L (45-117); ALT/SGPT 27 U/L (12-78); ANION GAP 8 MEQ/L (8-16); AST/SGOT 8 U/L (15-37); BILIRUBIN,TOTAL 0.3 MG/DL (0.2-1.0); BLOOD UREA NITROGEN 12 MG/DL (7-18); CALCIUM LEVEL 8.9 MG/DL (8.5-10.1); CARBON DIOXIDE LEVEL 33 MEQ/L (21-32); CHLORIDE LEVEL 98 MEQ/L (98-107); CREATININE FOR GFR 0.57 MG/DL (0.55-1.02); GLOMERULAR FILTRATION RATE > 60.0 (>51); GLUCOSE, FASTING 233 MG/DL (70-105); MAGNESIUM LEVEL 1.9 MG/DL (1.8-2.4); POTASSIUM SERUM 4.2 MEQ/L (3.5-5.1); SODIUM LEVEL 139 MEQ/L (136-145); TOTAL PROTEIN 6.8 GM/DL (6.4-8.2)
[2016-06-14] MEDS: TIOTROPIUM INHALER/CAPSULE (SPIRIVA) INH SCH (07:12)
[2016-06-14] MEDS: ADVAIR DISKUS 250/50 INH PWD INH SCH ×2 (07:12→20:04)
[2016-06-14] MEDS ORDERED: LEVALBUTEROL 1.25 MG/0.5 ML CONCENTRATE NEB INH PRN (07:30)
[2016-06-14] MEDS ORDERED: LEVALBUTEROL 1.25 MG/0.5 ML CONCENTRATE NEB As Ordered ONE (07:33)
[2016-06-14] MEDS: MORPHINE 2 MG/ML 1ML SYRINGE IV PRN ×3 (07:35→21:26)
--- NOTE | 2016-06-14 08:09 | ECGEPIP ---
Stationary ECG Study [facility] - ED Test Date: 2016-06-13 Pat Name: MIGUEL NAQVI Department: Room: - Gender: F Tourism Radio Presenter: holli : 1955 Requested By: HOLLY SIMONS Order Number: [id number] Reading MD: Vidya Villavicencio Measurements Intervals Garita Rate: 91 P: 66 WI: 144 QRS: 61 QRSD: 92 T: 71 QT: 337 QTc: 417 Interpretive Statements SINUS RHYTHM WITH SINUS ARRHYTHMIA POSSIBLE ANTERIOR MYOCARDIAL INFARCTION, OF INDETERMINATE AGE SIMILAR 05/29/16 Electronically Signed On 06-14-2016 8:09:15 EST by Vidya Villavicencio
[2016-06-14] MEDS: DULoxetine 30 MG CAP (CYMBALTA) PO SCH ×2 (08:32→21:18)
[2016-06-14] MEDS: ENOXAPARIN 40 MG/0.4 ML SYRINGE (J1650) SC SCH (08:32)
[2016-06-14] MEDS: GABAPENTIN 300 MG CAP PO SCH ×3 (08:32→21:17)
[2016-06-14] MEDS: LISINOPRIL *2.5 MG* TAB PO SCH (08:32)
[2016-06-14] MEDS: BISOPROLOL FUM 2.5 MG PER 1/2TAB PO SCH (08:33)
[2016-06-14] MEDS: ASPIRIN 81 MG ENTERIC TAB PO SCH (08:33)
[2016-06-14] MEDS: OMEPRAZOLE 20 MG CAP PO SCH (08:33)
[2016-06-14] MEDS: FLUTICASONE PROP 0.05% NASAL SPRAY 16 GM (FLONASE) SCH (08:33)
[2016-06-14] MEDS: lamoTRIgine 100MG TAB PO SCH ×2 (08:33→21:18)
--- NOTE | 2016-06-14 09:11 | ECGEPIP ---
Stationary ECG Study [facility] Test Date: 2016-06-14 Pat Name: MIGUEL NAQVI Department: Room: [place] [address] Gender: F Access Spec: Dewey : 1955 Requested By: PRAKASH PARKS Order Number: [id number] Reading MD: Chris Lockett Measurements Intervals [place] Rate: 95 P: 71 NC: 161 QRS: 63 QRSD: 93 T: 58 QT: 347 QTc: 437 Interpretive Statements Normal sinus rhythm Anterior PA, age indeterminate No significant change when compared to prior tracing of 06/13/2016 Electronically Signed On 06-14-2016 9:10:39 EST by Chris Lockett
[2016-06-14 11:58] LABS: MEAN CORPUSCULAR HEMOGLOBIN 32.8 pg (27.0-33.0); MEAN CORPUSCULAR HGB CONC 33.7 g/dl (32.0-36.5); MEAN CORPUSCULAR VOLUME 97.3 fl (80.0-96.0); RED CELL DISTRIBUTION WIDTH 12.2 % (11.5-14.5); WHITE BLOOD COUNT 9.5 K/mm3 (4.0-10.0)
[2016-06-14] MEDS ORDERED: IPRATROPIUM 0.5MG/ALBUTEROL 2.5MG INH SOL UD 3ML (DUONEB)(J7620) NEB PRN (12:00)
--- NOTE | 2016-06-14 12:53 | IPN ---
DATE OF SERVICE: 06/14/2016 A 60-year-old female seen at bedside. No overnight issues reported. She feels that her breathing is still a little tight and labored. She is maintained on 3 liters nasal cannula and receiving a nebulizer treatment. OBJECTIVE: Temperature is 96.5 tympanically, pulse 100, respiratory rate 16, blood pressure (BP) is 145/78, SpO2 is 98% on 3 liters. General: The patient appears to be somewhat short of breath, tachypneic, and is trying to produce sputum. HEENT: Unremarkable. Lungs: Diminished bibasilar breath sounds, diminished breath sounds throughout the lung cherry with occasional expiratory wheeze. Heart: Regular rate and rhythm. Abdomen: Soft. Extremities: No edema. No calf tenderness. LABORATORIES: White count is 6.5, hemoglobin 13.2, platelets 343,000. Sodium 139, potassium 4.2, chloride 98, bicarbonate 33, anion gap 8, BUN 12, creatinine 0.57, glucose 233, magnesium 1.9, AST 8, ALT 27, alkaline phosphatase 89, albumin is 3.2. Blood cultures pending times two. CT angiogram of the chest: No acute pulmonary embolism (PE), 6 mm nodule seen in the left base appears to be stable. Followup is recommendation in 6-12 months. Bilateral hilar adenopathy noted, nonspecific, likely reactive. Two masses noted in the right adrenal gland measuring 17 and 22 mm, respectively, hypodense and likely adenomas. Chest x-ray on admission: Normal cardiomediastinal silhouette. 10 mm nodular opacity with irregular margins projected over the 6th rib on the left, compatible with known pulmonary nodule. Will recommend outpatient followup. ASSESSMENT AND PLAN: 1. Chronic obstructive pulmonary disease (COPD) exacerbation. Continue with oxygen supplementation with titration of saturations between 88% and 92%. Solu-Medrol, DuoNebs, Spiriva, Advair. Solu-Medrol 60 mg intravenous (IV) every 8 hours. I am going to add on some Levaquin due to her acute illness. She has remained afebrile. 2. Pleuritic chest pain. Negative CT angiogram. Continue with the morphine as needed. Her cardiac enzymes trended nicely with no abnormalities. This most likely is musculoskeletal in nature. 3. History of depression and anxiety. Continue current medications. 4. Hypertension. Will continue to follow with current medications. No changes. 5. History of hyperlipidemia. Continue statin. 6. Deep venous thrombosis (DVT) prophylaxis with Lovenox. DISPOSITION: Anticipate her be here greater than two midnights. She does appear to be somewhat anxious, but I hesitate to use any benzodiazepines or any changes in her psychiatric medications due to the possibility of suppressing her respiratory rate.
[2016-06-14] MEDS: LevoFLOXacin 500 MG in APPROPRIATE DILUENT 1 EA IV SCH (13:24)
[2016-06-14 17:25] LABS: MEAN CORPUSCULAR HEMOGLOBIN 33.2 pg (27.0-33.0); MEAN CORPUSCULAR HGB CONC 33.9 g/dl (32.0-36.5); MEAN CORPUSCULAR VOLUME 97.8 fl (80.0-96.0); RED CELL DISTRIBUTION WIDTH 12.3 % (11.5-14.5); WHITE BLOOD COUNT 11.2 K/mm3 (4.0-10.0)
[2016-06-14] MEDS: ATORVASTATIN 20 MG TAB PO SCH (21:18)
[2016-06-14] MEDS: IPRATROPIUM 0.5MG/ALBUTEROL 2.5MG INH SOL UD 3ML (DUONEB)(J7620) NEB PRN (23:17)
[2016-06-14 23:21] LABS: MEAN CORPUSCULAR HEMOGLOBIN 32.9 pg (27.0-33.0); MEAN CORPUSCULAR HGB CONC 33.4 g/dl (32.0-36.5); MEAN CORPUSCULAR VOLUME 98.5 fl (80.0-96.0); RED CELL DISTRIBUTION WIDTH 12.3 % (11.5-14.5)
[2016-06-15] VITALS (9 sets, daily range): BP systolic 131–160; BP diastolic 63–91; PULSE 91–103; O2SAT 93
[2016-06-15] MEDS: IPRATROPIUM 0.5MG/ALBUTEROL 2.5MG INH SOL UD 3ML (DUONEB)(J7620) NEB SCH ×4 (01:32→19:09)
[2016-06-15] MEDS: LEVOTHYROXINE 0.05 MG TAB (50 MCG) PO SCH (05:35)
[2016-06-15] MEDS: methylPREDNISolone INJ 125 MG/2 ML VIAL (J2930) IV SCH ×3 (05:36→22:20)
[2016-06-15 05:41] LABS: MEAN CORPUSCULAR HEMOGLOBIN 31.3 pg (27.0-33.0); MEAN CORPUSCULAR VOLUME 101.1 fl (80.0-96.0); RED CELL DISTRIBUTION WIDTH 13.3 % (11.5-14.5); WHITE BLOOD COUNT 13.5 K/mm3 (4.0-10.0)
[2016-06-15 06:02] LABS: ALBUMIN 3.2 GM/DL (3.2-5.2); ALBUMIN/GLOBULIN RATIO 0.89 (1.00-1.93); ALKALINE PHOSPHATASE 84 U/L (45-117); ALT/SGPT 28 U/L (12-78); ANION GAP 7 MEQ/L (8-16); AST/SGOT 18 U/L (15-37); BILIRUBIN,TOTAL 0.4 MG/DL (0.2-1.0); BLOOD UREA NITROGEN 13 MG/DL (7-18); CALCIUM LEVEL 8.5 MG/DL (8.5-10.1); CARBON DIOXIDE LEVEL 34 MEQ/L (21-32); CHLORIDE LEVEL 96 MEQ/L (98-107); CREATININE FOR GFR 0.57 MG/DL (0.55-1.02); GLOMERULAR FILTRATION RATE > 60.0 (>51); GLUCOSE, FASTING 230 MG/DL (70-105); MAGNESIUM LEVEL 1.8 MG/DL (1.8-2.4); POTASSIUM SERUM 4.2 MEQ/L (3.5-5.1); SODIUM LEVEL 137 MEQ/L (136-145); TOTAL PROTEIN 6.8 GM/DL (6.4-8.2)
[2016-06-15] MEDS: DULoxetine 30 MG CAP (CYMBALTA) PO SCH ×2 (07:57→20:21)
[2016-06-15] MEDS: ASPIRIN 81 MG ENTERIC TAB PO SCH (07:57)
[2016-06-15] MEDS: BISOPROLOL FUM 2.5 MG PER 1/2TAB PO SCH (07:58)
[2016-06-15] MEDS: lamoTRIgine 100MG TAB PO SCH ×2 (07:58→20:21)
[2016-06-15] MEDS: GABAPENTIN 300 MG CAP PO SCH ×3 (07:58→20:21)
[2016-06-15] MEDS: BENZONATATE 100 MG CAP PO SCH ×3 (07:58→20:21)
[2016-06-15] MEDS: buPROPion 75 MG TAB PO SCH ×2 (07:58→20:21)
[2016-06-15] MEDS: OMEPRAZOLE 20 MG CAP PO SCH (07:58)
[2016-06-15] MEDS: ENOXAPARIN 40 MG/0.4 ML SYRINGE (J1650) SC SCH (07:59)
[2016-06-15] MEDS: FLUTICASONE PROP 0.05% NASAL SPRAY 16 GM (FLONASE) SCH (07:59)
[2016-06-15] MEDS: LISINOPRIL *2.5 MG* TAB PO SCH (07:59)
[2016-06-15] MEDS: TIOTROPIUM INHALER/CAPSULE (SPIRIVA) INH SCH (08:11)
[2016-06-15] MEDS: ADVAIR DISKUS 250/50 INH PWD INH SCH ×2 (08:11→20:31)
[2016-06-15] MEDS: IPRATROPIUM 0.5MG/ALBUTEROL 2.5MG INH SOL UD 3ML (DUONEB)(J7620) NEB PRN (10:21)
[2016-06-15] MEDS: MORPHINE 2 MG/ML 1ML SYRINGE IV PRN ×2 (10:22→19:00)
--- NOTE | 2016-06-15 11:08 | IPNPDOC ---
Assessment/Plan Date Seen The patient was seen on 06/15/16. Problems Problems: (1) COPD exacerbation Status: Acute Problem Text: uses 2L O2 at home; currently requiring 3-4L; worsening SOB when up and moving around; very tight but moving more air than yesterday; continue solumedrol, levaquin, scheduled/PRN duonebs, advair, spiriva, flonase, and tessalon perles (2) Lung nodule seen on imaging study Status: Acute Problem Text: needs repeat CT in 6 months (3) CAD (coronary artery disease) Status: Chronic Problem Text: hx of ND; continue home beta leela, ASA, statin (4) DDD (degenerative disc disease) Status: Chronic Problem Text: continue cymbalta and ibuprofen (5) Depression Status: Chronic Problem Text: complicated by fibromyalgia and anxiety; continue home wellbutrin , buspar, cymbalta, lamictal, neurontin (6) GERD (gastroesophageal reflux disease) Status: Chronic Problem Text: continue PPI (7) HTN (hypertension) Status: Chronic Problem Text: continue ACEI and beta leela; a bit elevated, likely from respiratory distress; continue to monitor (8) Hypothyroidism Status: Chronic Problem Text: continue home synthroid (9) Leukocytosis Status: Acute Problem Text: not present on admit; appears to be secondary to steroids; afebrile; continue to monitor Plan / VTE VTE Prophylaxis Ordered?: Yes (lovenox) Subjective Review of Systems CC/HPI The patient is a 60-year-old female admitted with a reason for visit of Copd Exacerbation. Pulmonary: Reports: Cough, Dyspnea Gastrointestinal: Denies: Vomiting Objective Physical Examination General Exam: Positive: Alert, Cooperative, Mild Distress Eye Exam: Positive: EOMI ENT Exam: Positive: Atraumatic Neck Exam: Positive: Supple Chest Exam: Positive: Other (very tight with prolonged expiration and expiratory wheeze but moving air), Wheezing Heart Exam: Positive: Regular Rhythm, Tachycardic Abdomen Exam: Positive: Normal bowel sounds, Soft Neuro Exam: Positive: Normal Speech Psych Exam: Positive: Anxiety, Oriented x 3 Vital Signs/I&O Vital Signs Date Time Temp Pulse Resp B/P Pulse Ox O2 Delivery O2 Flow Rate FiO2 06/15/16 10:32 22 06/15/16 10:21 98 06/15/16 08:00 Nasal Cannula 3.0 06/15/16 08:00 95.5 151/83 98 I&O- Last 24 Hours up to 6 AM 06/15/16 06:00 Intake Total 3300 ml Output Total 5150 ml Balance -1850 ml Laboratory Data Labs 24H Laboratory Tests 2 06/15/16 04:55: Blood Urea Nitrogen 13, Creatinine 0.57, Sodium Level 137, Potassium Level 4.2, Chloride Level 96L, Carbon Dioxide Level 34H, Calcium Level 8.5, Aspartate Amino Transf (AST/SGOT) 18, Alanine Aminotransferase (ALT/SGPT) 28, Alkaline Phosphatase 84, Total Bilirubin 0.4, Total Protein 6.8, Albumin 3.2, Albumin/ Globulin Ratio 0.89L, Anion Gap 7L, Glomerular Filtration Rate > 60.0, Magnesium Level 1.8 CBC/BMP Laboratory Tests 06/14/16 11:52 Red Blood Count 4.02, Mean Corpuscular Volume 97.3 H, Mean Corpuscular Hemoglobin 32.8, Mean Corpuscular Hemoglobin Concent 33.7, Red Cell Distribution Width 12.2 06/14/16 17:17 Red Blood Count 3.86 L, Mean Corpuscular Volume 97.8 H, Mean Corpuscular Hemoglobin 33.2 H, Mean Corpuscular Hemoglobin Concent 33.9, Red Cell Distribution Width 12.3 06/14/16 23:05 Red Blood Count 3.81 L, Mean Corpuscular Volume 98.5 H, Mean Corpuscular Hemoglobin 32.9, Mean Corpuscular Hemoglobin Concent 33.4, Red Cell Distribution Width 12.3 06/15/16 04:55 Red Blood Count 3.94 L, Mean Corpuscular Volume 101.1 H, Mean Corpuscular Hemoglobin 31.3, Mean Corpuscular Hemoglobin Concent 31.0 L, Red Cell Distribution Width 13.3, Calcium Level 8.5, Aspartate Amino Transf (AST/SGOT) 18 , Alanine Aminotransferase (ALT/SGPT) 28, Alkaline Phosphatase 84, Total Bilirubin 0.4, Total Protein 6.8, Albumin 3.2 Microbiology Microbiology 06/13/16 Blood Culture - Preliminary, Resulted No growth after 24 hours . All specim... 06/13/16 Blood Culture - Preliminary, Resulted No growth after 24 hours . All specim... AYSE VALENTINE Jun 15, 2016 11:07
[2016-06-15 12:11] LABS: MEAN CORPUSCULAR HEMOGLOBIN 32.7 pg (27.0-33.0); MEAN CORPUSCULAR HGB CONC 33.6 g/dl (32.0-36.5); MEAN CORPUSCULAR VOLUME 97.4 fl (80.0-96.0); RED CELL DISTRIBUTION WIDTH 12.3 % (11.5-14.5); WHITE BLOOD COUNT 14.1 K/mm3 (4.0-10.0)
[2016-06-15] MEDS: LevoFLOXacin 500 MG in APPROPRIATE DILUENT 1 EA IV SCH (12:34)
[2016-06-15] MEDS: ATORVASTATIN 20 MG TAB PO SCH (20:21)
--- NOTE | 2016-06-15 22:11 | EDDOCDS ---
Nurse's Notes [facility] Name: Constance Zavala Age: 60 yrs Sex: Female : 1955 Arrival Date: 06/13/2016 Time: 13:19 Bed 17 Private MD: Wesley Muñoz D Diagnosis: Chronic obstructive pulmonary disease with (acute) exacerbation Presentation: 06/13 13:21 Presenting complaint: Patient states: shortness of breath for last few days - worse pml this AM - given 3 nebs enroute with Solu-Medrol as well. speaking in full sentences. Adult Sepsis Screening: The patient does not have new or worsening altered mentation. Patient's respiratory rate is less than 22. Patient has a qSOFA score of 0- Negative Sepsis Screen. Suicide/Homicide risk assessment- the patient denies having any suicidal and/or homicidal ideations and does not present with any other emotional, behavioral or mental health complaints. Transition of care: patient was not received from another setting of care. 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 ttb Triage Assessment: 13:48 General: see triage assessment.. HIV screening NA for this visit Offered previously. ttb Neurological: Level of Consciousness is awake, alert, Oriented to person, place, time, Speech is normal. Respiratory: Onset: The symptoms/episode began/occurred gradually. Historical: - Allergies: no known allergies; - Home Meds: 1. duloxetine 60 mg Oral cpDR 1 cap once daily 2. duloxetine 30 mg Oral cpDR 1 cap once daily 3. bupropion HCl 300 mg Oral Tb24 1 tab twice a day 4. lamotrigine 100 mg Oral tr24 bid 5. aspirin 81 mg Oral tab 1 tab once daily 6. lisinopril 2.5 mg Oral tab 1 tab once daily 7. bisoprolol fumarate 5 mg oral tab 0.5 tab once daily 8. gabapentin 300 mg Oral cap 1 cap 3 times per day 9. atorvastatin 80 mg oral tab 1 tab once daily 10. levothyroxine 50 mcg Oral tab 1 tab once daily 11. Spiriva with HandiHaler 18 mcg Inhl CpDv 1 cap once daily 12. Advair Diskus 250-50 mcg/dose Inhl dsdv 13. albuterol sulfate 2.5 mg /3 mL (0.083 %) Inhl nebu 3 mL 4 times per day 14. Ventolin HFA 90 mcg/actuation Nebulizer HFAA 1 puff every 4-6 hours 15. Home O2 2L 16. fluticasone 50 mcg/actuation nasal spsn 1 spray once daily 17. unknown abx by hospitalist - PMHx: CAD; COPD; Degenerative disc disease; Depression; GERD; HPV; Hypercholesterolemia; Hypertension; Hypothyroidism; TN; - PSHx: Cholecystectomy; CABG; Breast biopsy- Left; D & C; Tubal ligation; Tonsillectomy; Exploratory lap; - Family history: Not pertinent. - Social history: Smoking status: Patient states former smoker of tobacco. No barriers to communication noted, The patient speaks fluent Lithuanian, Speaks appropriately for age. - : The pt / caregiver states he / she is not on anticoagulants. Home medication list is obtained from the patient. - Exposure Risk Screening:: None identified. Screenin:10 Screening information is obtained from the patient. Fall risk: No risks identified. ttb Assistance ADL's: requires no assistance with activities of daily living. Abuse/DV Screen: The patient / caregiver reports he/she is: not in a situation that causes fear, pain or injury. Nutritional screening: No deficits noted. Advance Directives: Currently, there is no health care proxy. home support is adequate. Assessment: 13:34 General: Appears uncomfortable, well nourished, well groomed, Behavior is anxious, ttb appropriate for age, cooperative, pleasant, restless. Pain: Denies pain. Neurological: Level of Consciousness is awake, alert, Oriented to person, place, time, Speech is normal. Cardiovascular: Heart tones S1 S2 present Rhythm is sinus tachycardia No ectopy. Chest pain is denied. Respiratory: Airway is patent Respiratory effort is even, shallow, Respiratory pattern is tachypnea Breath sounds with wheezes inspiratory expiratory bilaterally. Reports shortness of breath at rest labored breathing since worsening since 2 days ago the patient has moderate shortness of breath Denies pain with respiration. GI: Denies nausea, vomiting, pain. Derm: Skin is normal. 14:20 Reassessment: pt received nebs. KNURLING MACHINE TENDER in with pt at this time. Aware of impending ttb admission.. 15:20 General: pt states she has pain to right side/mid back/epigastric area. KNURLING MACHINE TENDER aware. Meds ttb ordered.. 16:15 Reassessment: Patient appears in no apparent distress at this time. Patient states ttb feeling better. Patient states symptoms have improved. pt states pain improved after meds given. . 16:15 Neurological: Level of Consciousness is awake, alert. Respiratory: Airway is patent ttb Respiratory effort is even, unlabored, Respiratory pattern is regular, tachypnea Reports shortness of breath improved. the patient has mild shortness of breath. 17:15 Reassessment: Patient appears in no apparent distress at this time. pt resting on ttb stretcher. Hospitalist visited pt for admission to floor. . 17:15 Neurological: Level of Consciousness is awake, alert. Cardiovascular: Rhythm is sinus ttb tachycardia Chest pain is denied. Respiratory: Airway is patent Respiratory effort is even, Respiratory pattern is regular, tachypnea Reports shortness of breath at rest the patient has mild shortness of breath. 17:53 Reassessment: Patient appears in no apparent distress at this time. pt states right ttb sided pain returned after using bathroom. Meds given as ordered by hospitalist. 1mg IV morphine. Pt resting on stretcher. ST on monitor. Denies increased SOB. Sat 95 on 3L NC.. 18:30 Adult Sepsis Screening: The patient does not have new or worsening altered mentation. ttb Patient has a respiratory rate of greater than or equal to 22 (1 point). Systolic blood pressure is greater than 100. Patient has a qSOFA score of 1- Negative Sepsis Screen. 18:45 Reassessment: Patient appears in no apparent distress at this time. Patient states ttb symptoms have improved. pt states improved breathing since arrival. Denies cp. ST on monitor . 18:45 Pain: Location: right upper quad/back pain. Cardiovascular: Chest pain is denied. ttb Respiratory: Airway is patent Respiratory effort is even, the patient has mild shortness of breath. 19:45 Reassessment: pt resting on stretcher. Requests more pain meds. Hospitalist aware . ttb 20:02 Adult Sepsis Screening: The patient does not have new or worsening altered mentation. ttb Patient has a respiratory rate of greater than or equal to 22 (1 point). Systolic blood pressure is greater than 100. Patient has a qSOFA score of 1- Negative Sepsis Screen. General: pt speaking with admission RN. Awaiting room upstairs. Room/RN not ready at this time. . Respiratory: Airway is patent Respiratory effort is even, shallow, Respiratory pattern is regular, tachypnea Reports shortness of breath at rest the patient has mild shortness of breath. 20:02 General: pain meds given per hospitalist orders.. ttb 20:30 General: Appears in no apparent distress. Neurological: Level of Consciousness is ttb awake, alert. Respiratory: Airway is patent Respiratory effort is even, Reports shortness of breath the patient has mild shortness of breath. 21:00 Adult Sepsis Screening: The patient does not have new or worsening altered mentation. ttb Patient has a respiratory rate of greater than or equal to 22 (1 point). Systolic blood pressure is greater than 100. Patient has a qSOFA score of 1- Negative Sepsis Screen. 21:06 General: floor states they are ready to receive pt at this time. MInimal change in pain ttb since morphine given. . Neurological: Level of Consciousness is awake, alert. Cardiovascular: Rhythm is sinus tachycardia Chest pain is denied. Respiratory: Airway is patent Respiratory effort is even, the patient has mild shortness of breath. GI: Denies nausea, vomiting, pain. Vital Signs: 13:31 BP 127 / 80 (auto/); ttb 13:32 Pulse 102 MON; Resp 28; Pulse Ox 95% on 3 lpm NC; Pain 0/10; ttb 13:36 Temp 97.6(TE); Weight 85.73 kg; Height 5 ft. 8 in. (172.72 cm); ttb 14:30 Pulse 96 MON; Pulse Ox 94% ; ttb 15:00 Pulse Ox 93% ; ttb 15:30 Pulse 98 MON; Resp 20; Pulse Ox 93% on 3 lpm NC; ttb 15:56 BP 133 / 75 (auto/); ttb 15:56 Pulse 98 MON; Pulse Ox 95% on 3 lpm NC; ttb 16:00 Resp 22; Pulse Ox 95% on 3 lpm NC; ttb 16:41 Pulse Ox 90% on 3 lpm NC; jb5 18:14 BP 138 / 61 (auto/); ttb 18:14 Pulse 104 MON; Resp 18 S; Pulse Ox 95% on R/A; ttb 18:35 Temp 98.4(O); ttb 20:00 BP 141 / 74; Pulse 108 MON; Resp 24 S; Pulse Ox 94% ; Pain 5/10; ttb 21:03 BP 148 / 75 (auto/); ttb 21:03 Pulse 106 MON; Resp 22; Temp 97.3(TE); Pulse Ox 94% on 2 lpm NC; Pain 8/10; ttb 13:36 Body Mass Index 28.74 (85.73 kg, 172.72 cm) ttb 16:41 while walking to the bathroom very winded and stayed at 90 and showed signs of jb5 shortness of breath patient stated her chest hurt when we returned to room 17 Vitals: 13:48 Log In Time N/A - ambulance arrival. ttb ED Course: 13:20 Patient visited by uSze Snyder Unit Clerk. lbd 13:20 Patient moved to Waiting lbd 13:21 Wesley Muñoz is Private Physician. lbd 13:21 Patient moved to 17 lbd 13:22 Triage Initiated pml 13:30 The patient / caregiver is instructed regarding the plan of care and ED course. Patient ttb has correct armband on for positive identification. Placed in gown. Bed in low position. Call light in reach. Side rails up X2. monitor and storage bin tender on. Pulse ox on. NIBP on. 13:36 Patient visited by Мария Magallon RN. ttb 13:45 [facility] le 13:49 Maintain field IV. Dressing intact. Site clean & dry. Gauge & site: 20LH. ttb 13:50 Patient visited by Мария Magallon RN. ttb 13:50 Discontinued IV lock intact, bleeding controlled, pressure dressing applied, No ttb redness/swelling at site. 13:50 Inserted peripheral IV: 20gauge IV in left antecubital area and blood collected. ttb Patient tolerated the procedure well. Labs drawn. (by ED staff). 13:52 Patient visited by Judie Jain FNP. le 13:52 Patient visited by Judie Jain FNP. le 14:00 Basic Metabolic Profile Sent. ttb 14:00 CBC with Diff Sent. ttb 14:00 Troponin Sent. ttb 14:06 Patient visited by Reji Hagen PCA. jrd 14:06 EKG done. (by ED staff). Reviewed by Judie SIMONS. jrd 14:20 Patient visited by Мария Magallon RN. ttb 15:23 [facility] Payment Agreement was scanned into [place] and attached to record. jp5 15:27 Patient visited by Мария Magallon RN. ttb 15:28 Patient visited by Мария Magallon RN. ttb 15:32 Chest, 2 View (pa\E\lat) Returned. EDMS 15:40 BLOOD CULTURES Sent. rn1 15:45 Patient visited by Мария Magallon RN. ttb 16:35 Patient visited by Мария Magallon RN. ttb 16:37 Patient visited by Мария Magallon RN. ttb 16:43 Patient visited by Nelida David PCA. jb5 17:08 Adin Petersen is Hospitalizing Provider. le 17:11 Patient name changed from Constance\S\M\S\Zavala\S\ to Constance\S\Gomez\S\Zavala. EDMS 17:29 Patient visited by Мария Magallon RN. ttb 17:55 Patient visited by Мария Magallon RN. ttb 19:20 CT ANGIO CHEST Returned. EDMS 21:10 No procedures done that require assistance. ttb 21:11 Patient visited by Мария Magallon RN. ttb 06/14 10:59 T-Sheet-- Draft Copy was scanned into [place] and attached to record. gb 10:59 ECG/EKG was scanned into [place] and attached to record. gb 10:59 Trend VS was scanned into [place] and attached to record. gb 11:00 Radiology Report was scanned into [place] and attached to record. gb Administered Medications: 06/13 13:59 Drug: Albuterol 5 mg [albuterol sulfate 2.5 mg/0.5 mL solution for nebulization (1 mL)] rs5 Route: Nebulizer; 13:59 Drug: Albuterol-Ipratropium 3 ml [ipratropium-albuterol 0.5 mg-3 mg(2.5 mg base)/3 mL rs5 nebulization soln (3 mL)] Route: Inhalation; 14:04 CANCELLED (Given by EMS): Solu-MEDROL 125 mg IVP once le 15:36 Drug: fentaNYL (PF) 25 mcg [fentanyl (PF) 50 mcg/mL injection solution (0.5 mL)] Route: ttb IVP; Site: left antecubital; 16:00 Follow up: Resp 22 bpm; Pulse Ox 95% 3 lpm Nasal Cannula; Response: No Adverse ttb Reaction; Pain is decreased 17:41 Drug: Albuterol 2.5 mg [albuterol sulfate 2.5 mg/0.5 mL solution for nebulization (0.5 js11 mL)] Route: Nebulizer; 17:53 Drug: morphine 1 mg [morphine 2 mg/mL intravenous cartridge (0.5 mL)] Route: IVP; Site: ttb left antecubital; 20:00 Drug: morphine 1 mg [morphine 2 mg/mL intravenous cartridge (0.5 mL)] Route: IVP; Site: ttb left antecubital; Attachments: 10:59 Trend VS gb RT: 06/13 13:59 Initial Med Neb Given as ordered Patient was instructed and evaluated on procedure rs5 Subsequent Med Neb Given as ordered Patient tolerated procedure well without adverse effect. Respiratory: Respiratory effort is even, labored, Use of accessory muscles noted. Respiratory pattern is regular symmetrical, Breath sounds are diminished Breath sounds with wheezes bilaterally. 17:41 Subsequent Med Neb Given as ordered Patient tolerated procedure well without adverse js11 effect. O2 via nasal cannula \T\ 3L/min. Respiratory: Breath sounds are diminished bilaterally. Breath sounds with wheezes bilaterally. at expiration. Order Results: Lab Order: Basic Metabolic Profile; SPEC'M 06/13/16 13:44 Test: GLUCOSE, FASTING; Value: 189; Range: 70-105; Abnormal: Above high normal; Units: MG/DL; Status: F Test: BLOOD UREA NITROGEN; Value: 12; Range: 7-18; Units: MG/DL; Status: F Test: CREATININE FOR GFR; Value: 0.48; Range: 0.55-1.02; Abnormal: Below low normal; Units: MG/DL; Status: F Test: GLOMERULAR FILTRATION RATE; Value: > 60.0; Range: >51; Status: F Test: SODIUM LEVEL; Value: 137; Range: 136-145; Units: MEQ/L; Status: F Test: POTASSIUM SERUM; Value: 4.2; Range: 3.5-5.1; Units: MEQ/L; Status: F Test: CHLORIDE LEVEL; Value: 99; Range: 98-107; Units: MEQ/L; Status: F Test: CARBON DIOXIDE LEVEL; Value: 31; Range: 21-32; Units: MEQ/L; Status: F Test: ANION GAP; Value: 7; Range: 8-16; Abnormal: Below low normal; Units: MEQ/L; Status: F Test: CALCIUM LEVEL; Value: 8.4; Range: 8.5-10.1; Abnormal: Below low normal; Units: MG/DL; Status: F Test Note: ; Units are mL/min/1.73 m2 Chronic Kidney Disease Staging per NKF: Stage I & II GFR >=60 Normal to Mildly Decreased Stage III GFR 30-59 Moderately Decreased Stage IV GFR 15-29 Severely Decreased Stage V GFR <15 Very Little GFR Left ESRD GFR <15 on RISK MANAGEMENT CONSULTANT Lab Order: CBC with Diff; SPEC'M 06/13/16 13:44 Test: WHITE BLOOD COUNT; Value: 8.4; Range: 4.0-10.0; Units: K/mm3; Status: F Test: RED BLOOD COUNT; Value: 4.28; Range: 4.00-5.40; Units: M/mm3; Status: F Test: HEMOGLOBIN; Value: 13.7; Range: 12.0-16.0; Units: g/dl; Status: F Test: HEMATOCRIT; Value: 41.5; Range: 36.0-47.0; Units: %; Status: F Test: MEAN CORPUSCULAR VOLUME; Value: 96.8; Range: 80.0-96.0; Abnormal: Above high normal; Units: fl; Status: F Test: MEAN CORPUSCULAR HEMOGLOBIN; Value: 32.1; Range: 27.0-33.0; Units: pg; Status: F Test: MEAN CORPUSCULAR HGB CONC; Value: 33.1; Range: 32.0-36.5; Units: g/dl; Status: F Test: RED CELL DISTRIBUTION WIDTH; Value: 12.2; Range: 11.5-14.5; Units: %; Status: F Test: PLATELET COUNT, AUTOMATED; Value: 345; Range: 150-450; Units: k/mm3; Status: F Test: NEUTROPHILS %; Value: 82.2; Range: 36.0-66.0; Abnormal: Above high normal; Units: %; Status: F Test: LYMPH %; Value: 10.3; Range: 24.0-44.0; Abnormal: Below low normal; Units: %; Status: F Test: MONO %; Value: 4.1; Range: 0.0-5.0; Units: %; Status: F Test: EOS %; Value: 0.6; Range: 0.0-3.0; Units: %; Status: F Test: BASO %; Value: 0.4; Range: 0.0-1.0; Units: %; Status: F Test: LARGE UNSTAINED CELL %; Value: 2.4; Range: 0.0-4.0; Units: %; Status: F Test: NEUTROPHILS #; Value: 6.9; Range: 1.8-7.7; Units: K/mm3; Status: F Test: LYMPH #; Value: 0.9; Range: 1.5-4.5; Abnormal: Below low normal; Units: K/mm3; Status: F Test: MONO #; Value: 0.3; Range: 0.0-0.8; Units: K/mm3; Status: F Test: EOS #; Value: 0.0; Range: 0.0-0.50; Units: K/mm3; Status: F Test: BASO #; Value: 0.0; Range: 0.0-0.2; Units: K/mm3; Status: F Test: LARGE UNSTAINED CELL #; Value: 0.2; Range: 0.0-0.4; Units: K/mm3; Status: F Lab Order: Troponin; SPEC'M 06/13/16 13:44 Test: TROPONIN I; Value: < 0.02; Range: < 0.10; Units: NG/ML; Status: F Test Note: ; Troponin I Reference Interval for [place] [employer] LOCI: 99th Percentile= 0.00-0.045 ng/ml Risk Stratification: <= 0.10 ng/ml Decreased Risk for Adverse Clinical Events. 0.10-1.50 ng/ml Increased Risk for Adverse Clinical Events. Evaluation of additional criterion and/or repeat testing in 2-6 hours is suggested to rule out myocardial damage. >= 1.50 ng/ml Indicative of Myocardial Injury. Lab Order: TROPONIN; SPEC'M 06/13/16 19:08 Test: TROPONIN I; Value: < 0.02; Range: < 0.10; Units: NG/ML; Status: F Test Note: ; Troponin I Reference Interval for [employer] [place] LOCI: 99th Percentile= 0.00-0.045 ng/ml Risk Stratification: <= 0.10 ng/ml Decreased Risk for Adverse Clinical Events. 0.10-1.50 ng/ml Increased Risk for Adverse Clinical Events. Evaluation of additional criterion and/or repeat testing in 2-6 hours is suggested to rule out myocardial damage. >= 1.50 ng/ml Indicative of Myocardial Injury. Lab Order: COMPLETE BLOOD COUNT; SPEC'M 06/13/16 19:08 Test: WHITE BLOOD COUNT; Value: 7.2; Range: 4.0-10.0; Units: K/mm3; Status: F Test: RED BLOOD COUNT; Value: 4.34; Range: 4.00-5.40; Units: M/mm3; Status: F Test: HEMOGLOBIN; Value: 13.8; Range: 12.0-16.0; Units: g/dl; Status: F Test: HEMATOCRIT; Value: 42.1; Range: 36.0-47.0; Units: %; Status: F Test: MEAN CORPUSCULAR VOLUME; Value: 96.9; Range: 80.0-96.0; Abnormal: Above high normal; Units: fl; Status: F Test: MEAN CORPUSCULAR HEMOGLOBIN; Value: 31.9; Range: 27.0-33.0; Units: pg; Status: F Test: MEAN CORPUSCULAR HGB CONC; Value: 32.9; Range: 32.0-36.5; Units: g/dl; Status: F Test: RED CELL DISTRIBUTION WIDTH; Value: 12.2; Range: 11.5-14.5; Units: %; Status: F Test: PLATELET COUNT, AUTOMATED; Value: 343; Range: 150-450; Units: k/mm3; Status: F Radiology Order: Chest, 2 View (pa\E\lat) Test: Chest, 2 View (pa\E\lat) REASON FOR EXAMINATION: Shortness of Breath; PA AND LATERAL CHEST RADIOGRAPH: 06/13/2016; ; INDICATION: Shortness of breath; ; COMPARISON: AP portable chest 05/29/2016, CTA; ; Findings: Cardiomediastinal silhouette is normal. Lungs are clear bilaterally.; Hyperinflation and flattening of diaphragms is consistent with COPD. Small; amount of bibasilar fibrotic scarring is noted. A 10 mm nodular density; projected over the left 6th anterior rib most compatible with a known pulmonary; nodule in this location as seen on CTA chest 05/30/2016; ; Impression; 1. Normal cardiomediastinal silhouette; 2. 10 mm nodular opacity with irregular margins projected over the left 6th; anterior rib end, most compatible with known pulmonary nodule. Recommend; interval follow-up CT of chest in 6 months . Nodules are new since 02/19/2012; and unchanged from CT chest 02/16/2016; ; ; ; ; ; ; Unreviewed; Radiology Order: CT ANGIO CHEST Test: CT ANGIO CHEST REASON FOR EXAMINATION: chest pain, shortness of breath; ; CLINICAL HISTORY: Chest pain and shortness of breath.; ; TECHNIQUE: A CT-pulmonary angiogram was performed. A dose of intravenous contrast was administered.; Axial images were displayed, as were sagittal and coronal reconstructions. A 3-D model was also rende; red.; FINDINGS:; Comparison is made with the prior study dated 02/16/2016.; 6 mm nodule is again noted at the left lung base.; ; There is bilateral hilar adenopathy noted which is nonspecific, likely reactive. The heart is mildly; enlarged. Small pericardial effusion is seen.; ; Status post cholecystectomy. Two masses are noted in the right adrenal gland measuring 17 x and 22 mm; respectively. These are hypodense and likely represent adenomas. Small hiatal hernia is present.; ; No CT evidence of pulmonary embolism is identified.; There is no evidence of thoracic aortic aneurysm or dissection.; No air space consolidation is identified in the lungs. There is no evidence of pulmonary edema. No pa; thologically enlarged hilar or mediastinal lymph nodes are identified. There is no evidence of pneumo; thorax.; Mild degenerative changes are noted in the spine. The included portion of the upper abdomen does not; show significant abnormality.; IMPRESSION:; No CT evidence of pulmonary embolism.; 6 mm nodule is again noted at the left lung base. The nodule is stable. Additional followup is 6-12 m; onths.; Bilateral hilar adenopathy noted which is nonspecific, likely reactive; Two masses are noted in the right adrenal gland measuring 17 x and 22 mm respectively. These are hypo; dense and likely represent adenomas.; Thank you for your kind referral of this patient. We appreciate the opportunity to participate in thi; s patient's care.; ; ; Outcome: 17:08 Decision to Hospitalize by Provider. le 21:08 Discharge Assessment: Patient awake and alert. patient administered narcotics - yes. ttb Patient was admitted to the hospital or transferred to another facility. The following High Risk Discharge criteria are identified: Yes, admit. Admitted to PCU accompanied by nurse, accompanied by tech, via stretcher, with oxygen, on monitor, with chart. Condition: good Condition: stable Condition: improved. Instructed on admission process. No special radiology studies were completed. Admission hand-off: Report called to WANDA Rivera on PCU. Property :Personal belongings accompany Pt. 21:11 Patient left the ED. ttb Signatures: Dispatcher [employer] EDMS Suze Snyder, Animal Keeper Unit lbd Shelley Stanley, Reg Reg gb Nelida David, AEROBICS INSTRUCTOR AEROBICS INSTRUCTOR jb5 Judie Jain, PANAMA HAT BLOCKER PANAMA HAT BLOCKER Aris Katz js11 Bishop Rojo,RT RT rs5 Olga Devi RN RN pml Conner, Teresa, RN RN ttb Reji Hagen, AEROBICS INSTRUCTOR AEROBICS INSTRUCTOR d Michael Pompa rn1 Fabian Byrd jp5 Chart Complete MTDD
--- NOTE | 2016-06-15 22:11 | EDDOCDS ---
Physician Documentation [facility] Name: Constance Zavala Age: 60 yrs Sex: Female : 1955 Arrival Date: 06/13/2016 Time: 13:19 Bed 17 Private MD: Wesley Muñoz D Disposition: 06/13/16 17:08 Hospitalization ordered by Adin Petersen for Observation. Preliminary diagnosis is Chronic obstructive pulmonary disease with (acute) exacerbation. - Bed requested for [facility]. - Status is Observation. ttb - Condition is Stable. - Problem is an acute exacerbation. - Symptoms are unchanged. Historical: - Allergies: no known allergies; - Home Meds: 1. duloxetine 60 mg Oral cpDR 1 cap once daily 2. duloxetine 30 mg Oral cpDR 1 cap once daily 3. bupropion HCl 300 mg Oral Tb24 1 tab twice a day 4. lamotrigine 100 mg Oral tr24 bid 5. aspirin 81 mg Oral tab 1 tab once daily 6. lisinopril 2.5 mg Oral tab 1 tab once daily 7. bisoprolol fumarate 5 mg oral tab 0.5 tab once daily 8. gabapentin 300 mg Oral cap 1 cap 3 times per day 9. atorvastatin 80 mg oral tab 1 tab once daily 10. levothyroxine 50 mcg Oral tab 1 tab once daily 11. Spiriva with HandiHaler 18 mcg Inhl CpDv 1 cap once daily 12. Advair Diskus 250-50 mcg/dose Inhl dsdv 13. albuterol sulfate 2.5 mg /3 mL (0.083 %) Inhl nebu 3 mL 4 times per day 14. Ventolin HFA 90 mcg/actuation Nebulizer HFAA 1 puff every 4-6 hours 15. Home O2 2L 16. fluticasone 50 mcg/actuation nasal spsn 1 spray once daily 17. unknown abx by hospitalist - PMHx: CAD; COPD; Degenerative disc disease; Depression; GERD; HPV; Hypercholesterolemia; Hypertension; Hypothyroidism; [place]; - PSHx: Cholecystectomy; CABG; Breast biopsy- Left; D & C; Tubal ligation; Tonsillectomy; Exploratory lap; - Family history: Not pertinent. - Social history: Smoking status: Patient states former smoker of tobacco. No barriers to communication noted, The patient speaks fluent Congolese, Speaks appropriately for age. - : The pt / caregiver states he / she is not on anticoagulants. Home medication list is obtained from the patient. - Exposure Risk Screening:: None identified. Vital Signs: 06/13 13:31 BP 127 / 80 (auto/); ttb 13:32 Pulse 102 MON; Resp 28; Pulse Ox 95% on 3 lpm NC; Pain 0/10; ttb 13:36 Temp 97.6(TE); Weight 85.73 kg / 189 lbs; Height 5 ft. 8 in. (172.72 cm); ttb 14:30 Pulse 96 MON; Pulse Ox 94% ; ttb 15:00 Pulse Ox 93% ; ttb 15:30 Pulse 98 MON; Resp 20; Pulse Ox 93% on 3 lpm NC; ttb 15:56 BP 133 / 75 (auto/); ttb 15:56 Pulse 98 MON; Pulse Ox 95% on 3 lpm NC; ttb 16:00 Resp 22; Pulse Ox 95% on 3 lpm NC; ttb 16:41 Pulse Ox 90% on 3 lpm NC; jb5 18:14 BP 138 / 61 (auto/); ttb 18:14 Pulse 104 MON; Resp 18 S; Pulse Ox 95% on R/A; ttb 18:35 Temp 98.4(O); ttb 20:00 BP 141 / 74; Pulse 108 MON; Resp 24 S; Pulse Ox 94% ; Pain 5/10; ttb 21:03 BP 148 / 75 (auto/); ttb 21:03 Pulse 106 MON; Resp 22; Temp 97.3(TE); Pulse Ox 94% on 2 lpm NC; Pain 8/10; ttb 13:36 Body Mass Index 28.74 (85.73 kg, 172.72 cm) ttb 16:41 while walking to the bathroom very winded and stayed at 90 and showed signs of jb5 shortness of breath patient stated her chest hurt when we returned to room 17 MDM: 13:55 Albuterol 5 mg Nebulizer once ordered. le 13:55 Albuterol-Ipratropium 3 ml Inhalation once ordered. le 13:55 Call Respiratory ordered. le 13:55 -Blood Culture (Adults Only), peripheral from different site, or from device/port/PICC le etc. if present ordered. 13:55 Wireless Sales Associate/Pulse Ox/q 15 min VS ordered. le 13:55 IV Saline Lock ordered. le 13:55 Oxygen at 4L/Min NC or Home dosage ordered. le 13:55 Rhythm Strip to chart ordered. le 13:56 Chest, 2 View (pa\E\lat) Ordered. EDMS 13:56 ECG WITH READING ER PHYS+CARDIAG ordered. EDMS 13:56 -Blood Culture Ordered. EDMS 13:56 Basic Metabolic Profile Ordered. EDMS 13:57 CBC with Diff Ordered. EDMS 13:57 Troponin Ordered. EDMS 13:59 -Blood Culture (Adults Only), peripheral from different site, or from device/port/PICC lbd etc. if present complete. 14:00 Call Respiratory complete. lbd 14:02 BLOOD CULTURES Ordered. EDMS 15:12 fentaNYL (PF) 25 mcg IVP once ordered. le 15:23 [facility] Payment Agreement was scanned into [employer] and attached to record. jp5 15:23 Financial registration complete. jp5 16:16 Basic Metabolic Profile Reviewed. le 16:16 CBC with Diff Reviewed. le 16:16 Troponin Reviewed. le 16:16 Chest, 2 View (pa\E\lat) Reviewed. le 16:[address] [facility] Pulse Oximetry ordered. le 16:51 BED REQUEST+ADM ordered. EDMS 17:08 Albuterol 2.5 mg Nebulizer once ordered. le 17:34 morphine 1 mg IVP once ordered. jjr 17:51 TROPONIN Ordered. EDMS 17:51 COMPLETE BLOOD COUNT Ordered. EDMS 17:52 COMPLETE BLOOD COUNT Ordered. EDMS 17:55 Admission / Observation Status ordered. EDMS 17:55 ELECTROCARDIOGRAM ADULT ordered. EDMS 17:55 CT ANGIO CHEST Ordered. EDMS 17:55 2 GRAM SODIUM DIET ordered. EDMS 19:31 TROPONIN Ordered. EDMS 19:31 TROPONIN Ordered. EDMS 19:31 COMPLETE BLOOD COUNT Ordered. EDMS 19:31 COMPLETE BLOOD COUNT Ordered. EDMS 19:31 COMPLETE BLOOD COUNT Ordered. EDMS 19:31 COMPLETE BLOOD COUNT Ordered. EDMS 19:31 COMPLETE COMPHRENSIVE METABOLI Ordered. EDMS 19:31 MAGNESIUM LEVEL Ordered. EDMS 19:53 morphine 1 mg IVP once; one time dose in ED. Continue Q4 hr on floor. Per Dr. Petersen ttiban ordered. 06/14 10:59 T-Sheet-- Draft Copy was scanned into [employer] and attached to record. gb 10:59 ECG/EKG was scanned into [employer] and attached to record. gb 10:59 Trend VS was scanned into [employer] and attached to record. gb 11:00 Radiology Report was scanned into [employer] and attached to record. gb Administered Medications: 06/13 13:59 Drug: Albuterol 5 mg [albuterol sulfate 2.5 mg/0.5 mL solution for nebulization (1 mL)] rs5 Route: Nebulizer; 13:59 Drug: Albuterol-Ipratropium 3 ml [ipratropium-albuterol 0.5 mg-3 mg(2.5 mg base)/3 mL rs5 nebulization soln (3 mL)] Route: Inhalation; 14:04 CANCELLED (Given by EMS): Solu-MEDROL 125 mg IVP once le 15:36 Drug: fentaNYL (PF) 25 mcg [fentanyl (PF) 50 mcg/mL injection solution (0.5 mL)] Route: ttb IVP; Site: left antecubital; 16:00 Follow up: Resp 22 bpm; Pulse Ox 95% 3 lpm Nasal Cannula; Response: No Adverse ttb Reaction; Pain is decreased 17:41 Drug: Albuterol 2.5 mg [albuterol sulfate 2.5 mg/0.5 mL solution for nebulization (0.5 js11 mL)] Route: Nebulizer; 17:53 Drug: morphine 1 mg [morphine 2 mg/mL intravenous cartridge (0.5 mL)] Route: IVP; Site: ttb left antecubital; 20:00 Drug: morphine 1 mg [morphine 2 mg/mL intravenous cartridge (0.5 mL)] Route: IVP; Site: ttb left antecubital; Signatures: Dispatcher [employer] EDMS Suze Snyder, Geospatial Developer Unit lbd Shelley Stanley, Reg Reg gb Judie Jain, POULTRY BUYER POULTRY BUYER Sugey Kline RN RN jjr Quay, Paulina, RN RN pml Conner, Teresa, RN RN ttFabian Doran jp5 Aris Garvin js11 Bishop Rojo RT rs5 The chart was reviewed and I authenticate all verbal orders and agree with the evaluation and treatment provided.Corrections: (The following items were deleted from the chart) 14:04 13:55 Solu-MEDROL 125 mg IVP once ordered. parul teran Attachments: 15:23 [facility] Payment Agreement jp5 06/14 10:59 T-Sheet-- Draft Copy gb 10:59 ECG/EKG gb Chart Complete MTDD
--- NOTE | 2016-06-15 22:11 | EDDOCDS ---
Physician Documentation [facility] Name: Constance Zavala Age: 60 yrs Sex: Female : 1955 Arrival Date: 06/13/2016 Time: 13:19 Bed 17 Private MD: Wesley Muñoz D Disposition: 06/13/16 17:08 Hospitalization ordered by Adin Petersen for Observation. Preliminary diagnosis is Chronic obstructive pulmonary disease with (acute) exacerbation. - [facility]. - Status is Observation. ttb - Condition is Stable. - Problem is an acute exacerbation. - Symptoms are unchanged. Historical: - Allergies: no known allergies; - Home Meds: 1. duloxetine 60 mg Oral cpDR 1 cap once daily 2. duloxetine 30 mg Oral cpDR 1 cap once daily 3. bupropion HCl 300 mg Oral Tb24 1 tab twice a day 4. lamotrigine 100 mg Oral tr24 bid 5. aspirin 81 mg Oral tab 1 tab once daily 6. lisinopril 2.5 mg Oral tab 1 tab once daily 7. bisoprolol fumarate 5 mg oral tab 0.5 tab once daily 8. gabapentin 300 mg Oral cap 1 cap 3 times per day 9. atorvastatin 80 mg oral tab 1 tab once daily 10. levothyroxine 50 mcg Oral tab 1 tab once daily 11. Spiriva with HandiHaler 18 mcg Inhl CpDv 1 cap once daily 12. Advair Diskus 250-50 mcg/dose Inhl dsdv 13. albuterol sulfate 2.5 mg /3 mL (0.083 %) Inhl nebu 3 mL 4 times per day 14. Ventolin HFA 90 mcg/actuation Nebulizer HFAA 1 puff every 4-6 hours 15. Home O2 2L 16. fluticasone 50 mcg/actuation nasal spsn 1 spray once daily 17. unknown abx by hospitalist - PMHx: CAD; COPD; Degenerative disc disease; Depression; GERD; HPV; Hypercholesterolemia; Hypertension; Hypothyroidism; [place]; - PSHx: Cholecystectomy; CABG; Breast biopsy- Left; D & C; Tubal ligation; Tonsillectomy; Exploratory lap; - Family history: Not pertinent. - Social history: Smoking status: Patient states former smoker of tobacco. No barriers to communication noted, The patient speaks fluent [place], Speaks appropriately for age. - : The pt / caregiver states he / she is not on anticoagulants. Home medication list is obtained from the patient. - Exposure Risk Screening:: None identified. Vital Signs: 06/13 13:31 BP 127 / 80 (auto/); ttb 13:32 Pulse 102 MON; Resp 28; Pulse Ox 95% on 3 lpm NC; Pain 0/10; ttb 13:36 Temp 97.6(TE); Weight 85.73 kg / 189 lbs; Height 5 ft. 8 in. (172.72 cm); ttb 14:30 Pulse 96 MON; Pulse Ox 94% ; ttb 15:00 Pulse Ox 93% ; ttb 15:30 Pulse 98 MON; Resp 20; Pulse Ox 93% on 3 lpm NC; ttb 15:56 BP 133 / 75 (auto/); ttb 15:56 Pulse 98 MON; Pulse Ox 95% on 3 lpm NC; ttb 16:00 Resp 22; Pulse Ox 95% on 3 lpm NC; ttb 16:41 Pulse Ox 90% on 3 lpm NC; jb5 18:14 BP 138 / 61 (auto/); ttb 18:14 Pulse 104 MON; Resp 18 S; Pulse Ox 95% on R/A; ttb 18:35 Temp 98.4(O); ttb 20:00 BP 141 / 74; Pulse 108 MON; Resp 24 S; Pulse Ox 94% ; Pain 5/10; ttb 21:03 BP 148 / 75 (auto/); ttb 21:03 Pulse 106 MON; Resp 22; Temp 97.3(TE); Pulse Ox 94% on 2 lpm NC; Pain 8/10; ttb 13:36 Body Mass Index 28.74 (85.73 kg, 172.72 cm) ttb 16:41 while walking to the bathroom very winded and stayed at 90 and showed signs of jb5 shortness of breath patient stated her chest hurt when we returned to room 17 MDM: 13:55 Albuterol 5 mg Nebulizer once ordered. le 13:55 Albuterol-Ipratropium 3 ml Inhalation once ordered. le 13:55 Call Respiratory ordered. le 13:55 -Blood Culture (Adults Only), peripheral from different site, or from device/port/PICC le etc. if present ordered. 13:55 Diesel Pile Driver Operator/Pulse Ox/q 15 min VS ordered. le 13:55 IV Saline Lock ordered. le 13:55 Oxygen at 4L/Min NC or Home dosage ordered. le 13:55 Rhythm Strip to chart ordered. le 13:56 Chest, 2 View (pa\E\lat) Ordered. EDMS 13:56 ECG WITH READING ER PHYS+CARDIAG ordered. EDMS 13:56 -Blood Culture Ordered. EDMS 13:56 Basic Metabolic Profile Ordered. EDMS 13:57 CBC with Diff Ordered. EDMS 13:57 Troponin Ordered. EDMS 13:59 -Blood Culture (Adults Only), peripheral from different site, or from device/port/PICC lbd etc. if present complete. 14:00 Call Respiratory complete. lbd 14:02 BLOOD CULTURES Ordered. EDMS 15:12 fentaNYL (PF) 25 mcg IVP once ordered. le 15:23 [facility] Payment Agreement was scanned into [employer] and attached to record. jp5 15:23 Financial registration complete. jp5 16:16 Basic Metabolic Profile Reviewed. le 16:16 CBC with Diff Reviewed. le 16:16 Troponin Reviewed. le 16:16 Chest, 2 View (pa\E\lat) Reviewed. le 16:18 Ambulate Patient [facility] Pulse Oximetry ordered. le 16:51 BED REQUEST+ADM ordered. EDMS 17:08 Albuterol 2.5 mg Nebulizer once ordered. le 17:34 morphine 1 mg IVP once ordered. jjr 17:51 TROPONIN Ordered. EDMS 17:51 COMPLETE BLOOD COUNT Ordered. EDMS 17:52 COMPLETE BLOOD COUNT Ordered. EDMS 17:55 Admission / Observation Status ordered. EDMS 17:55 ELECTROCARDIOGRAM ADULT ordered. EDMS 17:55 CT ANGIO CHEST Ordered. EDMS 17:55 2 GRAM SODIUM DIET ordered. EDMS 19:31 TROPONIN Ordered. EDMS 19:31 TROPONIN Ordered. EDMS 19:31 COMPLETE BLOOD COUNT Ordered. EDMS 19:31 COMPLETE BLOOD COUNT Ordered. EDMS 19:31 COMPLETE BLOOD COUNT Ordered. EDMS 19:31 COMPLETE BLOOD COUNT Ordered. EDMS 19:31 COMPLETE COMPHRENSIVE METABOLI Ordered. EDMS 19:31 MAGNESIUM LEVEL Ordered. EDMS 19:53 morphine 1 mg IVP once; one time dose in ED. Continue Q4 hr on floor. Per Dr. Petersen ttiban ordered. 06/14 10:59 T-Sheet-- Draft Copy was scanned into [employer] and attached to record. gb 10:59 ECG/EKG was scanned into [employer] and attached to record. gb 10:59 Trend VS was scanned into [employer] and attached to record. gb 11:00 Radiology Report was scanned into [employer] and attached to record. gb Administered Medications: 06/13 13:59 Drug: Albuterol 5 mg [albuterol sulfate 2.5 mg/0.5 mL solution for nebulization (1 mL)] rs5 Route: Nebulizer; 13:59 Drug: Albuterol-Ipratropium 3 ml [ipratropium-albuterol 0.5 mg-3 mg(2.5 mg base)/3 mL rs5 nebulization soln (3 mL)] Route: Inhalation; 14:04 CANCELLED (Given by EMS): Solu-MEDROL 125 mg IVP once le 15:36 Drug: fentaNYL (PF) 25 mcg [fentanyl (PF) 50 mcg/mL injection solution (0.5 mL)] Route: ttb IVP; Site: left antecubital; 16:00 Follow up: Resp 22 bpm; Pulse Ox 95% 3 lpm Nasal Cannula; Response: No Adverse ttb Reaction; Pain is decreased 17:41 Drug: Albuterol 2.5 mg [albuterol sulfate 2.5 mg/0.5 mL solution for nebulization (0.5 js11 mL)] Route: Nebulizer; 17:53 Drug: morphine 1 mg [morphine 2 mg/mL intravenous cartridge (0.5 mL)] Route: IVP; Site: ttb left antecubital; 20:00 Drug: morphine 1 mg [morphine 2 mg/mL intravenous cartridge (0.5 mL)] Route: IVP; Site: ttb left antecubital; Signatures: Dispatcher [employer] EDMS Suze Snyder, Soils Analyst Unit lbd Shelley Stanley, Reg Reg gb Judie Jain, BLOW MOLDING MACHINE OPERATOR BLOW MOLDING MACHINE OPERATOR Sugey Kline RN RN jjr Quay, Paulina, RN RN pml Conner, Teresa, RN RN ttFabian Doran jp5 Aris Garvin js11 Bishop Rojo RT rs5 The chart was reviewed and I authenticate all verbal orders and agree with the evaluation and treatment provided.Corrections: (The following items were deleted from the chart) 14:04 13:55 Solu-MEDROL 125 mg IVP once ordered. parul teran Attachments: 15:23 [facility] Payment Agreement jp5 06/14 10:59 T-Sheet-- Draft Copy gb 10:59 ECG/EKG gb Chart Complete MTDD
[2016-06-16] MEDS: IPRATROPIUM 0.5MG/ALBUTEROL 2.5MG INH SOL UD 3ML (DUONEB)(J7620) NEB SCH ×4 (00:58→20:13)
[2016-06-16 04:00] VITALS: BP 147/76
[2016-06-16 05:25] LABS: BASO % 0.1 % (0.0-1.0); EOS % 0.2 % (0.0-3.0); LARGE UNSTAINED CELL # 0.1 K/mm3 (0.0-0.4); LYMPH # 0.7 K/mm3 (1.5-4.5); LYMPH % 6.1 % (24.0-44.0); MEAN CORPUSCULAR HEMOGLOBIN 32.1 pg (27.0-33.0); MEAN CORPUSCULAR VOLUME 97.1 fl (80.0-96.0); MONO # 0.5 K/mm3 (0.0-0.8); MONO % 4.2 % (0.0-5.0); NEUTROPHILS # 10.2 K/mm3 (1.8-7.7); NEUTROPHILS % 88.5 % (36.0-66.0); PLATELET COUNT, AUTOMATED 372 k/mm3 (150-450); RED CELL DISTRIBUTION WIDTH 12.1 % (11.5-14.5); WHITE BLOOD COUNT 11.5 K/mm3 (4.0-10.0)
[2016-06-16] MEDS: LEVOTHYROXINE 0.05 MG TAB (50 MCG) PO SCH (05:53)
[2016-06-16] MEDS: methylPREDNISolone INJ 125 MG/2 ML VIAL (J2930) IV SCH ×3 (05:53→21:45)
[2016-06-16 06:56] LABS: ALBUMIN 3.2 GM/DL (3.2-5.2); ALBUMIN/GLOBULIN RATIO 0.89 (1.00-1.93); ALKALINE PHOSPHATASE 80 U/L (45-117); ALT/SGPT 32 U/L (12-78); ANION GAP 8 MEQ/L (8-16); AST/SGOT 15 U/L (15-37); BILIRUBIN,TOTAL 0.3 MG/DL (0.2-1.0); BLOOD UREA NITROGEN 18 MG/DL (7-18); CALCIUM LEVEL 8.6 MG/DL (8.5-10.1); CARBON DIOXIDE LEVEL 36 MEQ/L (21-32); CHLORIDE LEVEL 93 MEQ/L (98-107); CREATININE FOR GFR 0.61 MG/DL (0.55-1.02); GLOMERULAR FILTRATION RATE > 60.0 (>51); GLUCOSE, FASTING 235 MG/DL (70-105); MAGNESIUM LEVEL 2.1 MG/DL (1.8-2.4); POTASSIUM SERUM 4.1 MEQ/L (3.5-5.1); SODIUM LEVEL 137 MEQ/L (136-145); TOTAL PROTEIN 6.8 GM/DL (6.4-8.2)
[2016-06-16] MEDS: ADVAIR DISKUS 250/50 INH PWD INH SCH ×2 (07:41→20:25)
[2016-06-16] MEDS: TIOTROPIUM INHALER/CAPSULE (SPIRIVA) INH SCH (07:41)
[2016-06-16 08:00] VITALS: BP 143/74
[2016-06-16] MEDS: MORPHINE 2 MG/ML 1ML SYRINGE IV PRN ×3 (08:31→20:24)
[2016-06-16] MEDS: ASPIRIN 81 MG ENTERIC TAB PO SCH (08:32)
[2016-06-16] MEDS: GABAPENTIN 300 MG CAP PO SCH ×3 (08:32→20:25)
[2016-06-16] MEDS: DULoxetine 30 MG CAP (CYMBALTA) PO SCH ×2 (08:32→20:25)
[2016-06-16] MEDS: lamoTRIgine 100MG TAB PO SCH ×2 (08:32→20:25)
[2016-06-16] MEDS: BENZONATATE 100 MG CAP PO SCH ×3 (08:33→20:24)
[2016-06-16] MEDS: OMEPRAZOLE 20 MG CAP PO SCH (08:33)
[2016-06-16] MEDS: LISINOPRIL *2.5 MG* TAB PO SCH (08:33)
[2016-06-16] MEDS: busPIRone 10 MG TAB PO PRN ×3 (08:33→21:45)
[2016-06-16] MEDS: BISOPROLOL FUM 2.5 MG PER 1/2TAB PO SCH (08:34)
[2016-06-16] MEDS: ENOXAPARIN 40 MG/0.4 ML SYRINGE (J1650) SC SCH (08:34)
[2016-06-16] MEDS: FLUTICASONE PROP 0.05% NASAL SPRAY 16 GM (FLONASE) SCH (09:08)
[2016-06-16] MEDS: buPROPion 75 MG TAB PO SCH ×2 (09:08→20:24)
[2016-06-16] MEDS: LevoFLOXacin 500 MG in APPROPRIATE DILUENT 1 EA IV SCH (11:11)
[2016-06-16 12:00] VITALS: BP 145/65
[2016-06-16 13:06] LABS: ABG BASE EXCESS 6.8 (-2.0-2.0); ABG HCO3 33.1 MEQ/L (22.0-26.0); ABG PARTIAL PRESSURE CO2 54.3 mmHg (35.0-45.0); ABG PARTIAL PRESSURE O2 129.4 mmHg (75.0-100.0); ABG STANDARD HCO3 30.7 MEQ/L (22.0-26.0); ABG TOTAL CO2 34.8 MEQ/L (22.0-29.0); ABG pH (ARTERIAL) 7.403 UNITS (7.350-7.450)
--- NOTE | 2016-06-16 15:02 | IPNPDOC ---
Assessment/Plan Date Seen The patient was seen on 06/16/16. Problems Problems: (1) COPD exacerbation Status: Acute Problem Text: uses 2L O2 at home; currently requiring 3-4L; worsening SOB when up and moving around; very tight but moving more air than yesterday; continue solumedrol, levaquin, scheduled/PRN duonebs, advair, spiriva, flonase, and tessalon perles; continue morphine for pleuritic chest pain; follows with Dr. Kilgore as an outpatient (2) Chronic respiratory failure with hypoxia Status: Chronic Problem Text: uses 2L O2 at home (3) Lung nodule seen on imaging study Status: Acute Problem Text: needs repeat CT in 6 months (4) CAD (coronary artery disease) Status: Chronic Problem Text: hx of [place]; continue home beta leela, ASA, statin (5) DDD (degenerative disc disease) Status: Chronic Problem Text: continue cymbalta, neurontin, lamictal, and ibuprofen; patient is very upset that her PCP stopped her chronic opiates; she and her daughter have both discussed their concerns about this to me; I will ask pain management to evaluate her and manage chronic back pain; currently on IV morphine only for pleuritic chest pain (6) Depression Status: Chronic Problem Text: complicated by fibromyalgia and anxiety; continue home wellbutrin , buspar, cymbalta, lamictal, neurontin; definitely needs outpatient psych referral (7) GERD (gastroesophageal reflux disease) Status: Chronic Problem Text: continue PPI (8) HTN (hypertension) Status: Chronic Problem Text: continue ACEI and beta leela; a bit elevated, likely from respiratory distress; continue to monitor (9) Hypothyroidism Status: Chronic Problem Text: continue home synthroid (10) Leukocytosis Status: Acute Problem Text: not present on admit; appears to be secondary to steroids; afebrile; trending down, continue to monitor Plan / VTE VTE Prophylaxis Ordered?: Yes (lovenox) Plan Advance Directives: DNR Disposition CM to aide with new outpatient PCP, psych referral, pain management referral, home care services, etc Subjective Review of Systems CC/HPI The patient is a 60-year-old female admitted with a reason for visit of Copd Exacerbation. Events since last encounter still endorses a lot of pleuritic chest pain; very frustrated that her PCP stopped her opiates and states the reason that her breathing is bad is because her pain is so bad that she can't be active Pulmonary: Reports: Cough, Dyspnea, Pleuritic Chest Pain Gastrointestinal: Denies: Vomiting Objective Physical Examination General Exam: Positive: Alert, Cooperative, Mild Distress, No Acute Distress Eye Exam: Positive: EOMI ENT Exam: Positive: Atraumatic Neck Exam: Positive: Supple Chest Exam: Positive: Other (very tight with prolonged expiration and expiratory wheeze but moving air), Wheezing Heart Exam: Positive: Regular Rhythm, Tachycardic Abdomen Exam: Positive: Normal bowel sounds, Soft Extremity Exam: Negative: Edema Neuro Exam: Positive: Normal Speech Psych Exam: Positive: Anxiety, Oriented x 3 Vital Signs/I&O Vital Signs Date Time Temp Pulse Resp B/P Pulse Ox O2 Delivery O2 Flow Rate FiO2 06/16/16 12:00 97.0 93 18 145/65 95 Nasal Cannula 3.0 06/15/16 20:00 31 I&O- Last 24 Hours up to 6 AM 06/16/16 06:00 Intake Total 4120 ml Output Total 3400 ml Balance 720 ml Laboratory Data Labs 24H Laboratory Tests 2 06/16/16 04:52: Blood Urea Nitrogen 18, Creatinine 0.61, Sodium Level 137, Potassium Level 4.1, Chloride Level 93L, Carbon Dioxide Level 36H, Calcium Level 8.6, Aspartate Amino Transf (AST/SGOT) 15, Alanine Aminotransferase (ALT/SGPT) 32, Alkaline Phosphatase 80, Total Bilirubin 0.3, Total Protein 6.8, Albumin 3.2, Albumin/ Globulin Ratio 0.89L, Anion Gap 8, White Blood Count 11.5H, Red Blood Count 3.97L, Hemoglobin 12.7, Hematocrit 38.6, Mean Corpuscular Volume 97.1H, Mean Corpuscular Hemoglobin 32.1, Mean Corpuscular Hemoglobin Concent 33.0, Red Cell Distribution Width 12.1, Platelet Count 372, Neutrophils (%) (Auto) 88.5H, Lymphocytes (%) (Auto) 6.1L, Monocytes (%) (Auto) 4.2, Eosinophils (%) (Auto) 0.2, Basophils (%) (Auto) 0.1, Neutrophils # (Auto) 10.2H, Lymphocytes # (Auto) 0.7L, Monocytes # (Auto) 0.5, Eosinophils # (Auto) 0.0, Basophils # (Auto) 0.0, Glomerular Filtration Rate > 60.0, Large Unclassified Cells # 0.1, Large Unclassified Cells % 1.0, Magnesium Level 2.1 06/16/16 12:48: Arterial Blood pH 7.403, Arterial Blood Partial Pressure CO2 54.3H, Arterial Blood Partial Pressure O2 129.4H, Arterial Blood Total CO2 34.8H, Arterial Blood HCO3 33.1H, Arterial Blood Base Excess 6.8H, Arterial Blood Oxygen Saturation 97.2, Blood Gas Bicarbonate Standard 30.7H CBC/BMP Laboratory Tests 06/16/16 04:52 Calcium Level 8.6, Aspartate Amino Transf (AST/SGOT) 15, Alanine Aminotransferase (ALT/SGPT) 32, Alkaline Phosphatase 80, Total Bilirubin 0.3, Total Protein 6.8, Albumin 3.2, Red Blood Count 3.97 L, Mean Corpuscular Volume 97.1 H, Mean Corpuscular Hemoglobin 32.1, Mean Corpuscular Hemoglobin Concent 33.0, Red Cell Distribution Width 12.1, Neutrophils (%) (Auto) 88.5 H, Lymphocytes (%) (Auto) 6.1 L, Monocytes (%) (Auto) 4.2, Eosinophils (%) (Auto) 0.2, Basophils (%) (Auto) 0.1, Neutrophils # (Auto) 10.2 H, Lymphocytes # (Auto ) 0.7 L, Monocytes # (Auto) 0.5, Eosinophils # (Auto) 0.0, Basophils # (Auto) 0.0 Microbiology Microbiology 06/13/16 Blood Culture - Preliminary, Resulted No Growth after 48 hours. All Specime... 06/13/16 Blood Culture - Preliminary, Resulted No Growth after 72 hours. All specime... AYSE VALENTINE Jun 16, 2016 15:02
[2016-06-16] MEDS: IPRATROPIUM 0.5MG/ALBUTEROL 2.5MG INH SOL UD 3ML (DUONEB)(J7620) NEB PRN (15:46)
[2016-06-16 16:00] VITALS: BP 153/71
--- NOTE | 2016-06-16 17:31 | CR ---
DATE OF CONSULTATION: 06/16/2016 REFERRING PROVIDER: Dr. Rush REASON FOR ADMISSION: Chest pain. COPD exacerbation HISTORY OF PRESENT ILLNESS: Constance Gomez is a 52-year-old female with a history of recent hospitalizations for hypoxia and COPD exacerbation. History of chronic low back pain, which she states she was using hydrocodone in the past until they took her off of this in December. States that since she has been off of her pain medication, she has been unable to function and has been therefore smoking more. States that she was given 30 tablets of hydrocodone 5/325 for a month's supply. Chief area of pain today is anterior chest and radiation into the upper back. She is having difficulty breathing and recently asked for respiratory because of severe shortness of breath. I did inform the patient that we would not be advising the use of any long-acting narcotics due to her frail breathing status. She seems to understand. I did tell her that periodic use of pain medication for severe pain episodes while hospitalized and monitored would be more than likely safe. REVIEW OF SYSTEMS: The patient is describing chest pain but relates this to her shortness of breath and COPD exacerbation. RESPIRATORY - chronic shortness of breath. O2 dependent. COPD with multiple exacerbations over the past 6 months and she is a smoker. GI - reporting normal bowel movements. Denies bowel incontinence. - reporting normal urination. Denies urinary incontinence. NEURO - denies seizures. ENDOCRINE - Hypothyroidism. Denies diabetes. PAST MEDICAL HISTORY: 1. Coronary artery disease. 2. Chronic obstructive pulmonary disease 3. Degenerative disk disease. 4. Depression. 5. Fibromyalgia. 6. Gastroesophageal reflux disease. 7. Human papillomavirus. 8. Hyperlipidemia. 9. Hypertension. 10. Hypothyroidism. 11. Myocardial infarction. PAST SURGICAL HISTORY: 1. Cholecystectomy. 2. Left breast biopsy. 3. D C and tubal ligation. 4. Tonsillectomy. 5. Exploratory lap. 6. Cardiac catheterization. ALLERGIES: No known drug allergies. PHYSICAL EXAMINATION: GENERAL: Resting in bed easily awakened, respirations nonlabored. VITALS: 97.5, 93, 18, blood pressure 153/71, O2 sats 96% with O2 at 3 liters nasal cannula. CARDIAC: S1-S2. Lung sounds are diminished throughout. Respirations are nonlabored. Remaining physical exam was deferred due to the patient's frail status at time of interview. ASSESSMENT: 1. Chronic generalized pain. 2. Chronic obstructive pulmonary disease. PLAN: 1. Would recommend periodic use of hydrocodone 5/325 for severe pain episodes. Of course long-acting opioids are contraindicated due to her respiratory status. 2. Continue Cymbalta 60 mg in the morning and 30 mg at night. 3. Continue gabapentin 300 mg three times a day. 4. Continue use of Tylenol 1000 mg every 6 hours as needed pain. 5. Continue ibuprofen 600 mg four times a day as needed for pain. Thank you for allowing us to participate in the care of your patient Constance Zavala. If you have any questions or concerns please do not hesitate to contact me. ISMAEL
[2016-06-16 20:00] VITALS: BP 169/86
[2016-06-16] MEDS: ATORVASTATIN 20 MG TAB PO SCH (20:25)
[2016-06-17] VITALS: BP 158/77
[2016-06-17] MEDS: IPRATROPIUM 0.5MG/ALBUTEROL 2.5MG INH SOL UD 3ML (DUONEB)(J7620) NEB SCH ×4 (02:00→19:36)
[2016-06-17 04:00] VITALS: BP 158/86
[2016-06-17] MEDS: LevoFLOXacin 500 MG TABLET PO SCH (05:51)
[2016-06-17] MEDS: LEVOTHYROXINE 0.05 MG TAB (50 MCG) PO SCH (05:51)
[2016-06-17] MEDS: methylPREDNISolone INJ 125 MG/2 ML VIAL (J2930) IV SCH (05:51)
[2016-06-17 06:13] LABS: BASO # 0.1 K/mm3 (0.0-0.2); BASO % 0.5 % (0.0-1.0); EOS % 0.1 % (0.0-3.0); LARGE UNSTAINED CELL # 0.1 K/mm3 (0.0-0.4); LYMPH # 1.1 K/mm3 (1.5-4.5); LYMPH % 7.7 % (24.0-44.0); MEAN CORPUSCULAR HEMOGLOBIN 31.1 pg (27.0-33.0); MEAN CORPUSCULAR HGB CONC 31.7 g/dl (32.0-36.5); MEAN CORPUSCULAR VOLUME 98.1 fl (80.0-96.0); MONO # 0.7 K/mm3 (0.0-0.8); MONO % 5.3 % (0.0-5.0); NEUTROPHILS # 10.7 K/mm3 (1.8-7.7); NEUTROPHILS % 85.5 % (36.0-66.0); PLATELET COUNT, AUTOMATED 349 k/mm3 (150-450); RED CELL DISTRIBUTION WIDTH 13.2 % (11.5-14.5); WHITE BLOOD COUNT 12.5 K/mm3 (4.0-10.0)
[2016-06-17 06:33] LABS: ALBUMIN 3.1 GM/DL (3.2-5.2); ALBUMIN/GLOBULIN RATIO 0.89 (1.00-1.93); ALKALINE PHOSPHATASE 84 U/L (45-117); ALT/SGPT 30 U/L (12-78); ANION GAP 6 MEQ/L (8-16); AST/SGOT 14 U/L (15-37); BILIRUBIN,TOTAL 0.3 MG/DL (0.2-1.0); BLOOD UREA NITROGEN 18 MG/DL (7-18); CALCIUM LEVEL 9.1 MG/DL (8.5-10.1); CARBON DIOXIDE LEVEL 38 MEQ/L (21-32); CHLORIDE LEVEL 94 MEQ/L (98-107); CREATININE FOR GFR 0.69 MG/DL (0.55-1.02); GLOMERULAR FILTRATION RATE > 60.0 (>51); GLUCOSE, FASTING 245 MG/DL (70-105); MAGNESIUM LEVEL 2.2 MG/DL (1.8-2.4); SODIUM LEVEL 138 MEQ/L (136-145); TOTAL PROTEIN 6.6 GM/DL (6.4-8.2)
[2016-06-17 06:38] LABS: POTASSIUM SERUM 5.4 MEQ/L (3.5-5.1)
[2016-06-17] MEDS: ADVAIR DISKUS 250/50 INH PWD INH SCH ×2 (07:22→19:35)
[2016-06-17] MEDS: TIOTROPIUM INHALER/CAPSULE (SPIRIVA) INH SCH (07:22)
[2016-06-17 07:40] VITALS: BP 172/94
[2016-06-17] MEDS ORDERED: GLUCOSE 4 GM CHEW TABLET PO PRN (08:30)
[2016-06-17] MEDS ORDERED: GLUCAGON FOR INJ 1 MG VIAL (J1610) SC PRN (08:30)
[2016-06-17] MEDS ORDERED: DEXTROSE 50% 50 ML SYRINGE IV PRN (08:30)
[2016-06-17] MEDS: OMEPRAZOLE 20 MG CAP PO SCH (09:32)
[2016-06-17] MEDS: BISOPROLOL FUM 2.5 MG PER 1/2TAB PO SCH (09:32)
[2016-06-17] MEDS: DULoxetine 30 MG CAP (CYMBALTA) PO SCH ×2 (09:32→20:45)
[2016-06-17] MEDS: BENZONATATE 100 MG CAP PO SCH ×3 (09:32→20:45)
[2016-06-17] MEDS: SENOKOT S TAB PO SCH ×2 (09:33→20:45)
[2016-06-17] MEDS: MIRALAX *UNIT DOSE* 17GM PACKET PO PRN (09:33)
[2016-06-17] MEDS: buPROPion 75 MG TAB PO SCH ×2 (09:33→20:45)
[2016-06-17] MEDS: lamoTRIgine 100MG TAB PO SCH ×2 (09:33→20:45)
[2016-06-17] MEDS: LISINOPRIL *2.5 MG* TAB PO SCH (09:33)
[2016-06-17] MEDS: GABAPENTIN 300 MG CAP PO SCH ×3 (09:33→20:45)
[2016-06-17] MEDS: ENOXAPARIN 40 MG/0.4 ML SYRINGE (J1650) SC SCH (09:33)
[2016-06-17] MEDS: ASPIRIN 81 MG ENTERIC TAB PO SCH (09:33)
[2016-06-17] MEDS: FLUTICASONE PROP 0.05% NASAL SPRAY 16 GM (FLONASE) SCH (09:34)
[2016-06-17] MEDS: MORPHINE 2 MG/ML 1ML SYRINGE IV PRN ×2 (09:46→14:02)
[2016-06-17] MEDS: IPRATROPIUM 0.5MG/ALBUTEROL 2.5MG INH SOL UD 3ML (DUONEB)(J7620) NEB PRN ×2 (11:05)
--- NOTE | 2016-06-17 11:13 | REP ---
CT THORACIC SPINE WITHOUT CONTRAST: HISTORY: Back pain. There is no acute fracture or subluxation. Facet hypertrophy is present on the right at the T5-6 level. A disc bulge is present at the T11-12 level. There is minimal narrowing of the spinal canal. The neural foramina are patent. There is loss of height at several mid and lower thoracic intervertebral discs. Vacuum phenomenon is present at the T11-12 level. These findings are consistent with disc degeneration. Anterior osteophytes are present in the mid and lower thoracic spine. There is scoliosis of the upper thoracic spine convex to the left and mid and lower thoracic spine convex to the right. A 4 mm parenchymal nodule is present in the left lower lobe. This appears unchanged compared to a previous study. IMPRESSION: Degenerative change as described above. Signed by Karel Yeboah MD 06/17/2016 11:27 A
--- NOTE | 2016-06-17 11:36 | IPNPDOC ---
Assessment/Plan Date Seen The patient was seen on 06/17/16. Problems Problems: (1) COPD exacerbation Status: Acute Problem Text: uses 2L O2 at home; currently requiring 3-4L; worsening SOB when up and moving around; very tight but moving more air than yesterday; continue solumedrol, levaquin, scheduled/PRN duonebs, advair, spiriva, flonase, and tessalon perles; continue morphine for pleuritic chest pain; follows with Dr. Kilgore as an outpatient (2) Chronic respiratory failure with hypoxia Status: Chronic Problem Text: uses 2L O2 at home (3) Lung nodule seen on imaging study Status: Acute Problem Text: needs repeat CT in 6 months (4) CAD (coronary artery disease) Status: Chronic Problem Text: hx of [place]; continue home beta leela, ASA, statin (5) DDD (degenerative disc disease) Status: Chronic Problem Text: CT thoracic spine shows degererative disc disease , no acute fracture of radiculopathy. continue cymbalta, neurontin, lamictal, and ibuprofen, tylenol; patient is very upset that her PCP stopped her chronic opiates; she and her daughter have both discussed their concerns about this to me; seen by pain management can give norco 5/325 prn q 6 hours. (6) Depression Status: Chronic Problem Text: complicated by fibromyalgia and anxiety; continue home wellbutrin , buspar, cymbalta, lamictal, neurontin; definitely needs outpatient psych referral (7) GERD (gastroesophageal reflux disease) Status: Chronic Problem Text: continue PPI (8) HTN (hypertension) Status: Chronic Problem Text: continue ACEI and beta leela; a bit elevated, likely from respiratory distress; continue to monitor (9) Hypothyroidism Status: Chronic Problem Text: continue home synthroid (10) Leukocytosis Status: Acute Problem Text: not present on admit; appears to be secondary to steroids; afebrile; trending down, continue to monitor (11) Adrenal nodule Status: Chronic Problem Text: on the right seems to be adenoma. Plan / VTE VTE Prophylaxis Ordered?: Yes (lovenox) Plan Advance Directives: DNR Subjective Review of Systems CC/HPI The patient is a 60-year-old female admitted with a reason for visit of Copd Exacerbation. Events since last encounter patient very emotional and crying complains of severe mid back pain with radiation to both sides of the chest just in the lower part of rib cage worsens with coughing. Continues to have severe bouts of cough dry with episodes of severe sob during coughing spells. no feve or chills, no abdominal pain no nausea or vomiting or diarrhea Objective Physical Examination General Exam: Positive: Alert, Cooperative, Mild Distress, No Acute Distress Eye Exam: Positive: EOMI ENT Exam: Positive: Atraumatic Neck Exam: Positive: Supple Chest Exam: Positive: Diminished, Other (very tight with prolonged expiration and expiratory wheeze but moving air), Wheezing Heart Exam: Positive: Regular Rhythm, Tachycardic Abdomen Exam: Positive: Normal bowel sounds, Soft Extremity Exam: Negative: Edema Neuro Exam: Positive: Normal Speech Psych Exam: Positive: Anxiety, Oriented x 3 Vital Signs/I&O Vital Signs Date Time Temp Pulse Resp B/P Pulse Ox O2 Delivery O2 Flow Rate FiO2 06/17/16 09:56 20 06/17/16 09:32 86 172/94 06/17/16 07:40 95.7 97 Nasal Cannula 3.0 06/15/16 20:00 31 I&O- Last 24 Hours up to 6 AM 06/17/16 06:00 Intake Total 2180 ml Output Total 3600 ml Balance -1420 ml Laboratory Data Labs 24H Laboratory Tests 2 06/16/16 12:48: Arterial Blood pH 7.403, Arterial Blood Partial Pressure CO2 54.3H, Arterial Blood Partial Pressure O2 129.4H, Arterial Blood Total CO2 34.8H, Arterial Blood HCO3 33.1H, Arterial Blood Base Excess 6.8H, Arterial Blood Oxygen Saturation 97.2, Blood Gas Bicarbonate Standard 30.7H 06/17/16 05:41: Blood Urea Nitrogen 18, Creatinine 0.69, Sodium Level 138, Potassium Level 5.4H , Chloride Level 94L, Carbon Dioxide Level 38H, Calcium Level 9.1, Aspartate Amino Transf (AST/SGOT) 14L, Alanine Aminotransferase (ALT/SGPT) 30, Alkaline Phosphatase 84, Total Bilirubin 0.3, Total Protein 6.6, Albumin 3.1L, Albumin/ Globulin Ratio 0.89L, Anion Gap 6L, White Blood Count 12.5H, Red Blood Count 4.11, Hemoglobin 12.8, Hematocrit 40.3, Mean Corpuscular Volume 98.1H, Mean Corpuscular Hemoglobin 31.1, Mean Corpuscular Hemoglobin Concent 31.7L, Red Cell Distribution Width 13.2, Platelet Count 349, Neutrophils (%) (Auto) 85.5H, Lymphocytes (%) (Auto) 7.7L, Monocytes (%) (Auto) 5.3H, Eosinophils (%) (Auto) 0.1, Basophils (%) (Auto) 0.5, Neutrophils # (Auto) 10.7H, Lymphocytes # (Auto) 1.1L, Monocytes # (Auto) 0.7, Eosinophils # (Auto) 0.0, Basophils # (Auto) 0.1, Glomerular Filtration Rate > 60.0, Large Unclassified Cells # 0.1, Large Unclassified Cells % 1.0, Magnesium Level 2.2 CBC/BMP Laboratory Tests 06/17/16 05:41 Calcium Level 9.1, Aspartate Amino Transf (AST/SGOT) 14 L, Alanine Aminotransferase (ALT/SGPT) 30, Alkaline Phosphatase 84, Total Bilirubin 0.3, Total Protein 6.6, Albumin 3.1 L, Red Blood Count 4.11, Mean Corpuscular Volume 98.1 H, Mean Corpuscular Hemoglobin 31.1, Mean Corpuscular Hemoglobin Concent 31.7 L, Red Cell Distribution Width 13.2, Neutrophils (%) (Auto) 85.5 H, Lymphocytes (%) (Auto) 7.7 L, Monocytes (%) (Auto) 5.3 H, Eosinophils (%) (Auto ) 0.1, Basophils (%) (Auto) 0.5, Neutrophils # (Auto) 10.7 H, Lymphocytes # ( Auto) 1.1 L, Monocytes # (Auto) 0.7, Eosinophils # (Auto) 0.0, Basophils # (Auto ) 0.1 Microbiology Microbiology 06/13/16 Blood Culture - Preliminary, Resulted No Growth after 72 hours. All specime... 06/13/16 Blood Culture - Preliminary, Resulted No Growth after 72 hours. All specime... OLIVIA PORTER MD Jun 17, 2016 11:36
[2016-06-17] MEDS: HumaLOG INSULIN (NovoLOG) PER UNIT SC SCH ×3 (11:47→20:32)
[2016-06-17] MEDS: busPIRone 10 MG TAB PO PRN (11:47)
[2016-06-17] MEDS: LIDOCAINE 5% (LIDODERM) PATCH TD SCH (11:48)
[2016-06-17 12:15] VITALS: BP 164/70
[2016-06-17] MEDS: NORCO, ANEXSIA 5/325MG TABLET (HYDROcodone/ACETAMINOPHEN) PO PRN (15:06)
[2016-06-17] MEDS: DEXTROMETHORPHAN 60MG/10ML SUSP 90ML BTL(DELSYM) PO PRN (16:20)
[2016-06-17 16:45] VITALS: BP 159/90
[2016-06-17] MEDS ORDERED: methylPREDNISolone INJ 125 MG/2 ML VIAL (J2930) IV SCH (20:00)
[2016-06-17] MEDS: ATORVASTATIN 20 MG TAB PO SCH (20:45)
[2016-06-17] MEDS: **NOTE PATIENT COMMENT** MISC XX SCH (20:46)
[2016-06-17 22:00] VITALS: BP 142/84
[2016-06-18] MEDS: IPRATROPIUM 0.5MG/ALBUTEROL 2.5MG INH SOL UD 3ML (DUONEB)(J7620) NEB SCH ×4 (00:17→18:59)
[2016-06-18] MEDS: NORCO, ANEXSIA 5/325MG TABLET (HYDROcodone/ACETAMINOPHEN) PO PRN ×4 (00:24→22:47)
[2016-06-18 02:00] VITALS: BP 147/81
[2016-06-18] MEDS: LEVOTHYROXINE 0.05 MG TAB (50 MCG) PO SCH (05:56)
[2016-06-18] MEDS: LevoFLOXacin 500 MG TABLET PO SCH (05:56)
[2016-06-18 06:00] VITALS: BP 152/72
[2016-06-18] MEDS: TIOTROPIUM INHALER/CAPSULE (SPIRIVA) INH SCH (07:18)
[2016-06-18] MEDS: ADVAIR DISKUS 250/50 INH PWD INH SCH ×2 (07:18→21:06)
[2016-06-18 07:39] LABS: BASO % 0.2 % (0.0-1.0); LARGE UNSTAINED CELL # 0.1 K/mm3 (0.0-0.4); LYMPH # 1.1 K/mm3 (1.5-4.5); LYMPH % 9.3 % (24.0-44.0); MEAN CORPUSCULAR HEMOGLOBIN 31.9 pg (27.0-33.0); MEAN CORPUSCULAR HGB CONC 33.5 g/dl (32.0-36.5); MEAN CORPUSCULAR VOLUME 95.2 fl (80.0-96.0); MONO # 0.6 K/mm3 (0.0-0.8); MONO % 5.3 % (0.0-5.0); NEUTROPHILS # 9.6 K/mm3 (1.8-7.7); NEUTROPHILS % 84.2 % (36.0-66.0); PLATELET COUNT, AUTOMATED 345 k/mm3 (150-450); WHITE BLOOD COUNT 11.4 K/mm3 (4.0-10.0)
[2016-06-18 08:14] LABS: ALBUMIN 3.1 GM/DL (3.2-5.2); ALBUMIN/GLOBULIN RATIO 0.94 (1.00-1.93); ALKALINE PHOSPHATASE 86 U/L (45-117); ALT/SGPT 63 U/L (12-78); ANION GAP 6 MEQ/L (8-16); AST/SGOT 24 U/L (15-37); BILIRUBIN,TOTAL 0.4 MG/DL (0.2-1.0); BLOOD UREA NITROGEN 17 MG/DL (7-18); CALCIUM LEVEL 8.5 MG/DL (8.5-10.1); CARBON DIOXIDE LEVEL 38 MEQ/L (21-32); CHLORIDE LEVEL 93 MEQ/L (98-107); CREATININE FOR GFR 0.61 MG/DL (0.55-1.02); GLOMERULAR FILTRATION RATE > 60.0 (>51); GLUCOSE, FASTING 233 MG/DL (70-105); POTASSIUM SERUM 4.2 MEQ/L (3.5-5.1); SODIUM LEVEL 137 MEQ/L (136-145); TOTAL PROTEIN 6.4 GM/DL (6.4-8.2)
[2016-06-18] MEDS: MIRALAX *UNIT DOSE* 17GM PACKET PO PRN (08:59)
[2016-06-18] MEDS: methylPREDNISolone INJ 40 MG/1 ML VIAL (J2920) IV SCH ×2 (08:59→20:30)
[2016-06-18] MEDS: buPROPion 75 MG TAB PO SCH ×2 (09:00→20:31)
[2016-06-18] MEDS: HumaLOG INSULIN (NovoLOG) PER UNIT SC SCH ×4 (09:00→20:28)
[2016-06-18] MEDS: LISINOPRIL *2.5 MG* TAB PO SCH (09:00)
[2016-06-18] MEDS: GABAPENTIN 300 MG CAP PO SCH ×3 (09:01→20:31)
[2016-06-18] MEDS: BENZONATATE 100 MG CAP PO SCH ×3 (09:01→20:31)
[2016-06-18] MEDS: OMEPRAZOLE 20 MG CAP PO SCH (09:01)
[2016-06-18] MEDS: SENOKOT S TAB PO SCH ×2 (09:01→20:31)
[2016-06-18] MEDS: BISOPROLOL FUM 2.5 MG PER 1/2TAB PO SCH (09:01)
[2016-06-18] MEDS: ASPIRIN 81 MG ENTERIC TAB PO SCH (09:01)
[2016-06-18] MEDS: lamoTRIgine 100MG TAB PO SCH ×2 (09:01→20:31)
[2016-06-18] MEDS: DULoxetine 30 MG CAP (CYMBALTA) PO SCH ×2 (09:01→20:31)
[2016-06-18] MEDS: LIDOCAINE 5% (LIDODERM) PATCH TD SCH (09:02)
[2016-06-18] MEDS: FLUTICASONE PROP 0.05% NASAL SPRAY 16 GM (FLONASE) SCH (09:02)
[2016-06-18] MEDS: ENOXAPARIN 40 MG/0.4 ML SYRINGE (J1650) SC SCH (09:02)
[2016-06-18 10:00] VITALS: BP 148/67
[2016-06-18] MEDS: IPRATROPIUM 0.5MG/ALBUTEROL 2.5MG INH SOL UD 3ML (DUONEB)(J7620) NEB PRN (10:36)
[2016-06-18] MEDS: busPIRone 10 MG TAB PO PRN ×3 (10:52→22:46)
--- NOTE | 2016-06-18 11:58 | IPNPDOC ---
Assessment/Plan Date Seen The patient was seen on 06/18/16. Problems Problems: (1) COPD exacerbation Status: Acute Problem Text: uses 2L O2 at home; currently requiring 3-4L; worsening SOB when up and moving around; very tight but moving more air than yesterday; continue solumedrol, levaquin, scheduled/PRN duonebs, advair, spiriva, flonase, and tessalon perles; continue morphine for pleuritic chest pain; follows with Dr. Kilgore as an outpatient (2) Chronic respiratory failure with hypoxia Status: Chronic Problem Text: uses 2L O2 at home (3) Lung nodule seen on imaging study Status: Acute Problem Text: needs repeat CT in 6 months (4) CAD (coronary artery disease) Status: Chronic Problem Text: hx of [place]; continue home beta leela, ASA, statin (5) DDD (degenerative disc disease) Status: Chronic Problem Text: CT thoracic spine shows degererative disc disease , no acute fracture of radiculopathy. continue cymbalta, neurontin, lamictal, and ibuprofen, tylenol; patient is very upset that her PCP stopped her chronic opiates; she and her daughter have both discussed their concerns about this to me; seen by pain management can give norco 5/325 prn q 6 hours. (6) Depression Status: Chronic Problem Text: complicated by fibromyalgia and anxiety; continue home wellbutrin , buspar, cymbalta, lamictal, neurontin; definitely needs outpatient psych referral (7) GERD (gastroesophageal reflux disease) Status: Chronic Problem Text: continue PPI (8) HTN (hypertension) Status: Chronic Problem Text: continue ACEI and beta leela; a bit elevated, likely from respiratory distress; continue to monitor (9) Hypothyroidism Status: Chronic Problem Text: continue home synthroid (10) Leukocytosis Status: Acute Problem Text: not present on admit; appears to be secondary to steroids; afebrile; trending down, continue to monitor (11) Adrenal nodule Status: Chronic Problem Text: on the right seems to be adenoma. Plan / VTE VTE Prophylaxis Ordered?: Yes (lovenox) Plan Advance Directives: DNR Subjective Review of Systems CC/HPI The patient is a 60-year-old female admitted with a reason for visit of Copd Exacerbation. Events since last encounter very emotional and tearful , had an anxiety attack during shower this am when she started to raise her hands above her head and started having severe back pain and chest pain with muscle spasm. Cough is better, sob is improving. Objective Physical Examination General Exam: Positive: Alert, Cooperative, Mild Distress, No Acute Distress Eye Exam: Positive: EOMI ENT Exam: Positive: Atraumatic Neck Exam: Positive: Supple Chest Exam: Positive: Clear to auscultation, Normal air movement Heart Exam: Positive: Regular Rhythm, Tachycardic Abdomen Exam: Positive: Normal bowel sounds, Soft Extremity Exam: Negative: Edema Neuro Exam: Positive: Normal Speech Psych Exam: Positive: Anxiety, Oriented x 3 Vital Signs/I&O Vital Signs Date Time Temp Pulse Resp B/P Pulse Ox O2 Delivery O2 Flow Rate FiO2 06/18/16 11:22 18 06/18/16 10:00 96.7 90 148/67 94 Nasal Cannula 3.0 06/15/16 20:00 31 I&O- Last 24 Hours up to 6 AM 06/18/16 06:00 Intake Total 1770 ml Output Total 4300 ml Balance -2530 ml Laboratory Data Labs 24H Laboratory Tests 2 06/17/16 17:04: Bedside Glucose (Misc Panel) 133H 06/17/16 20:28: Bedside Glucose (Misc Panel) 132H 06/18/16 06:57: Blood Urea Nitrogen 17, Creatinine 0.61, Sodium Level 137, Potassium Level 4.2# , Chloride Level 93L, Carbon Dioxide Level 38H, Calcium Level 8.5, Aspartate Amino Transf (AST/SGOT) 24, Alanine Aminotransferase (ALT/SGPT) 63, Alkaline Phosphatase 86, Total Bilirubin 0.4, Total Protein 6.4, Albumin 3.1L, Albumin/ Globulin Ratio 0.94L, Anion Gap 6L, Glomerular Filtration Rate > 60.0, Magnesium Level 2.0 06/18/16 06:58: White Blood Count 11.4H, Red Blood Count 4.17, Hemoglobin 13.3, Hematocrit 39.6 , Mean Corpuscular Volume 95.2, Mean Corpuscular Hemoglobin 31.9, Mean Corpuscular Hemoglobin Concent 33.5, Red Cell Distribution Width 12.0, Platelet Count 345, Neutrophils (%) (Auto) 84.2H, Lymphocytes (%) (Auto) 9.3L, Monocytes (%) (Auto) 5.3H, Eosinophils (%) (Auto) 0.0, Basophils (%) (Auto) 0.2, Neutrophils # (Auto) 9.6H, Lymphocytes # (Auto) 1.1L, Monocytes # (Auto) 0.6, Eosinophils # (Auto) 0.0, Basophils # (Auto) 0.0, Large Unclassified Cells # 0.1 , Large Unclassified Cells % 1.0 06/18/16 11:31: Bedside Glucose (Misc Panel) 138H CBC/BMP Laboratory Tests 06/18/16 06:57 Calcium Level 8.5, Aspartate Amino Transf (AST/SGOT) 24, Alanine Aminotransferase (ALT/SGPT) 63, Alkaline Phosphatase 86, Total Bilirubin 0.4, Total Protein 6.4, Albumin 3.1 L 06/18/16 06:58 Red Blood Count 4.17, Mean Corpuscular Volume 95.2, Mean Corpuscular Hemoglobin 31.9, Mean Corpuscular Hemoglobin Concent 33.5, Red Cell Distribution Width 12.0 , Neutrophils (%) (Auto) 84.2 H, Lymphocytes (%) (Auto) 9.3 L, Monocytes (%) ( Auto) 5.3 H, Eosinophils (%) (Auto) 0.0, Basophils (%) (Auto) 0.2, Neutrophils # (Auto) 9.6 H, Lymphocytes # (Auto) 1.1 L, Monocytes # (Auto) 0.6, Eosinophils # (Auto) 0.0, Basophils # (Auto) 0.0 FSBS Laboratory Tests Test 06/17/16 17:04 06/17/16 20:28 06/18/16 11:31 Range/Units Bedside Glucose (Misc Panel) 133 132 138 70-105 MG/DL Microbiology Microbiology 06/13/16 Blood Culture - Preliminary, Resulted No Growth after 72 hours. All specime... 06/13/16 Blood Culture - Preliminary, Resulted No Growth after 72 hours. All specime... OLIVIA PORTER MD Jun 18, 2016 11:58
[2016-06-18 18:00] VITALS: BP 141/80
[2016-06-18 20:00] VITALS: BP 158/84
[2016-06-18] MEDS: ATORVASTATIN 20 MG TAB PO SCH (20:31)
[2016-06-18] MEDS: **NOTE PATIENT COMMENT** MISC XX SCH (20:32)
[2016-06-18] MEDS: DEXTROMETHORPHAN 60MG/10ML SUSP 90ML BTL(DELSYM) PO PRN (21:27)
[2016-06-19] MEDS: IPRATROPIUM 0.5MG/ALBUTEROL 2.5MG INH SOL UD 3ML (DUONEB)(J7620) NEB SCH ×4 (01:41→18:54)
[2016-06-19] MEDS: LevoFLOXacin 500 MG TABLET PO SCH (05:45)
[2016-06-19] MEDS: LEVOTHYROXINE 0.05 MG TAB (50 MCG) PO SCH (05:45)
[2016-06-19 06:00] VITALS: BP 138/69
[2016-06-19 07:09] LABS: BASO # 0.1 K/mm3 (0.0-0.2); BASO % 0.9 % (0.0-1.0); EOS % 0.2 % (0.0-3.0); LARGE UNSTAINED CELL # 0.1 K/mm3 (0.0-0.4); LARGE UNSTAINED CELL % 1.1 % (0.0-4.0); LYMPH # 1.5 K/mm3 (1.5-4.5); LYMPH % 11.7 % (24.0-44.0); MEAN CORPUSCULAR HEMOGLOBIN 31.9 pg (27.0-33.0); MEAN CORPUSCULAR HGB CONC 32.4 g/dl (32.0-36.5); MEAN CORPUSCULAR VOLUME 98.5 fl (80.0-96.0); MONO # 0.7 K/mm3 (0.0-0.8); MONO % 5.5 % (0.0-5.0); NEUTROPHILS # 9.6 K/mm3 (1.8-7.7); NEUTROPHILS % 80.6 % (36.0-66.0); PLATELET COUNT, AUTOMATED 352 k/mm3 (150-450); RED CELL DISTRIBUTION WIDTH 12.9 % (11.5-14.5); WHITE BLOOD COUNT 11.9 K/mm3 (4.0-10.0)
[2016-06-19 07:19] LABS: ALBUMIN/GLOBULIN RATIO 0.97 (1.00-1.93); ALKALINE PHOSPHATASE 96 U/L (45-117); ALT/SGPT 47 U/L (12-78); ANION GAP 5 MEQ/L (8-16); AST/SGOT 9 U/L (15-37); BILIRUBIN,TOTAL 0.4 MG/DL (0.2-1.0); BLOOD UREA NITROGEN 25 MG/DL (7-18); CALCIUM LEVEL 8.5 MG/DL (8.5-10.1); CARBON DIOXIDE LEVEL 39 MEQ/L (21-32); CHLORIDE LEVEL 96 MEQ/L (98-107); CREATININE FOR GFR 0.66 MG/DL (0.55-1.02); GLOMERULAR FILTRATION RATE > 60.0 (>51); GLUCOSE, FASTING 215 MG/DL (70-105); POTASSIUM SERUM 4.7 MEQ/L (3.5-5.1); SODIUM LEVEL 140 MEQ/L (136-145); TOTAL PROTEIN 6.1 GM/DL (6.4-8.2)
[2016-06-19] MEDS: TIOTROPIUM INHALER/CAPSULE (SPIRIVA) INH SCH (07:30)
[2016-06-19] MEDS: ADVAIR DISKUS 250/50 INH PWD INH SCH ×2 (07:31→20:45)
[2016-06-19] MEDS: buPROPion 75 MG TAB PO SCH (08:57)
[2016-06-19] MEDS: LISINOPRIL *2.5 MG* TAB PO SCH (08:58)
[2016-06-19] MEDS: lamoTRIgine 100MG TAB PO SCH ×2 (08:58→21:21)
[2016-06-19] MEDS: busPIRone 10 MG TAB PO PRN (08:58)
[2016-06-19] MEDS: GABAPENTIN 300 MG CAP PO SCH ×3 (08:59→21:23)
[2016-06-19] MEDS: OMEPRAZOLE 20 MG CAP PO SCH (08:59)
[2016-06-19] MEDS: ASPIRIN 81 MG ENTERIC TAB PO SCH (08:59)
[2016-06-19] MEDS: BENZONATATE 100 MG CAP PO SCH ×3 (08:59→21:23)
[2016-06-19] MEDS: DULoxetine 30 MG CAP (CYMBALTA) PO SCH ×2 (08:59→21:22)
[2016-06-19] MEDS: BISOPROLOL FUM 2.5 MG PER 1/2TAB PO SCH (08:59)
[2016-06-19] MEDS: SENOKOT S TAB PO SCH ×2 (09:00→21:23)
[2016-06-19] MEDS: ENOXAPARIN 40 MG/0.4 ML SYRINGE (J1650) SC SCH (09:00)
[2016-06-19] MEDS: HumaLOG INSULIN (NovoLOG) PER UNIT SC SCH ×4 (09:00→21:00)
[2016-06-19] MEDS ORDERED: predniSONE 20 MG TAB PO SCH (09:00)
[2016-06-19] MEDS: LIDOCAINE 5% (LIDODERM) PATCH TD SCH (09:01)
[2016-06-19] MEDS: NORCO, ANEXSIA 5/325MG TABLET (HYDROcodone/ACETAMINOPHEN) PO PRN ×2 (09:01→14:53)
[2016-06-19] MEDS: FLUTICASONE PROP 0.05% NASAL SPRAY 16 GM (FLONASE) SCH (09:02)
[2016-06-19 10:00] VITALS: BP 140/90
--- NOTE | 2016-06-19 11:05 | IPNPDOC ---
Assessment/Plan Date Seen The patient was seen on 06/19/16. Problems Problems: (1) COPD exacerbation Status: Acute Problem Text: uses 2L O2 at home; currently requiring 3-4L; worsening SOB when up and moving around; very tight but moving more air than yesterday; continue solumedrol, levaquin, scheduled/PRN duonebs, advair, spiriva, flonase, and tessalon perles; continue morphine for pleuritic chest pain; follows with Dr. Kilgore as an outpatient (2) Chronic respiratory failure with hypoxia Status: Chronic Problem Text: uses 2L O2 at home (3) Lung nodule seen on imaging study Status: Acute Problem Text: needs repeat CT in 6 months (4) CAD (coronary artery disease) Status: Chronic Problem Text: hx of [place]; continue home beta leela, ASA, statin (5) DDD (degenerative disc disease) Status: Chronic Problem Text: with chronic musculo skeletal pain with muscle spasms. CT thoracic spine shows degererative disc disease , no acute fracture of radiculopathy. continue cymbalta, neurontin, lamictal, and ibuprofen, tylenol; patient is very upset that her PCP stopped her chronic opiates; she and her daughter have both discussed their concerns about this to me; seen by pain management can give norco 5/325 prn q 6 hours. will try tizanidine. (6) Depression Status: Chronic Problem Text: complicated by fibromyalgia and anxiety; continue home wellbutrin , buspar, cymbalta, lamictal, neurontin; to be seen by psych . (7) GERD (gastroesophageal reflux disease) Status: Chronic Problem Text: continue PPI (8) HTN (hypertension) Status: Chronic Problem Text: continue ACEI and beta leela; a bit elevated, likely from respiratory distress; continue to monitor (9) Hypothyroidism Status: Chronic Problem Text: continue home synthroid (10) Leukocytosis Status: Acute Problem Text: not present on admit; appears to be secondary to steroids; afebrile; trending down, continue to monitor (11) Adrenal nodule Status: Chronic Problem Text: on the right seems to be adenoma. Plan / VTE VTE Prophylaxis Ordered?: Yes (lovenox) Plan Advance Directives: DNR Subjective Review of Systems CC/HPI The patient is a 60-year-old female admitted with a reason for visit of Copd Exacerbation. Events since last encounter still very emotional and crying, continues to have chest tightness and muscle spasms mainly on twisting motions of the body especially during washing. then she starts complaining of severe sob however oxygen saturation with 2 liters remains unchanged. to be seen by psych today. Objective Physical Examination General Exam: Positive: Alert, Cooperative, Mild Distress, No Acute Distress Eye Exam: Positive: EOMI ENT Exam: Positive: Atraumatic Neck Exam: Positive: Supple Chest Exam: Positive: Clear to auscultation, Normal air movement Heart Exam: Positive: Regular Rhythm, Tachycardic Abdomen Exam: Positive: Normal bowel sounds, Soft Extremity Exam: Negative: Edema Neuro Exam: Positive: Normal Speech Psych Exam: Positive: Anxiety, Oriented x 3 Vital Signs/I&O Vital Signs Date Time Temp Pulse Resp B/P Pulse Ox O2 Delivery O2 Flow Rate FiO2 06/19/16 10:00 96.2 87 20 140/90 93 Nasal Cannula 2.0 06/15/16 20:00 31 I&O- Last 24 Hours up to 6 AM 06/19/16 06:00 Intake Total 1960 ml Output Total 3100 ml Balance -1140 ml Laboratory Data Labs 24H Laboratory Tests 2 06/18/16 11:31: Bedside Glucose (Misc Panel) 138H 06/18/16 16:51: Bedside Glucose (Misc Panel) 336H 06/18/16 17:02: Bedside Glucose (Misc Panel) 303H 06/18/16 19:58: Bedside Glucose (Misc Panel) 206H 06/19/16 06:43: Blood Urea Nitrogen 25H, Creatinine 0.66, Sodium Level 140, Potassium Level 4.7 , Chloride Level 96L, Carbon Dioxide Level 39H, Calcium Level 8.5, Aspartate Amino Transf (AST/SGOT) 9L, Alanine Aminotransferase (ALT/SGPT) 47, Alkaline Phosphatase 96, Total Bilirubin 0.4, Total Protein 6.1L, Albumin 3.0L, Albumin/ Globulin Ratio 0.97L, Anion Gap 5L, White Blood Count 11.9H, Red Blood Count 4.34, Hemoglobin 13.8, Hematocrit 42.8, Mean Corpuscular Volume 98.5H, Mean Corpuscular Hemoglobin 31.9, Mean Corpuscular Hemoglobin Concent 32.4, Red Cell Distribution Width 12.9, Platelet Count 352, Neutrophils (%) (Auto) 80.6H, Lymphocytes (%) (Auto) 11.7L, Monocytes (%) (Auto) 5.5H, Eosinophils (%) (Auto) 0.2, Basophils (%) (Auto) 0.9, Neutrophils # (Auto) 9.6H, Lymphocytes # (Auto) 1.5, Monocytes # (Auto) 0.7, Eosinophils # (Auto) 0.0, Basophils # (Auto) 0.1, Glomerular Filtration Rate > 60.0, Large Unclassified Cells # 0.1, Large Unclassified Cells % 1.1, Magnesium Level 2.0 CBC/BMP Laboratory Tests 06/19/16 06:43 Calcium Level 8.5, Aspartate Amino Transf (AST/SGOT) 9 L, Alanine Aminotransferase (ALT/SGPT) 47, Alkaline Phosphatase 96, Total Bilirubin 0.4, Total Protein 6.1 L, Albumin 3.0 L, Red Blood Count 4.34, Mean Corpuscular Volume 98.5 H, Mean Corpuscular Hemoglobin 31.9, Mean Corpuscular Hemoglobin Concent 32.4, Red Cell Distribution Width 12.9, Neutrophils (%) (Auto) 80.6 H, Lymphocytes (%) (Auto) 11.7 L, Monocytes (%) (Auto) 5.5 H, Eosinophils (%) (Auto ) 0.2, Basophils (%) (Auto) 0.9, Neutrophils # (Auto) 9.6 H, Lymphocytes # (Auto ) 1.5, Monocytes # (Auto) 0.7, Eosinophils # (Auto) 0.0, Basophils # (Auto) 0.1 FSBS Laboratory Tests Test 06/18/16 11:31 06/18/16 16:51 06/18/16 17:02 06/18/16 19:58 Range/Units Bedside Glucose (Misc Panel) 138 336 303 206 70-105 MG/DL Microbiology Microbiology 06/13/16 Blood Culture - Final, Complete NO GROWTH AFTER 5 DAYS 06/13/16 Blood Culture - Final, Complete NO GROWTH AFTER 5 DAYS OLIVIA PORTER MD Jun 19, 2016 11:05
[2016-06-19 11:21] LABS: ABG PARTIAL PRESSURE CO2 51.9 mmHg (35.0-45.0); ABG PARTIAL PRESSURE O2 83.8 mmHg (75.0-100.0); ABG STANDARD HCO3 29.9 MEQ/L (22.0-26.0); ABG TOTAL CO2 33.6 MEQ/L (22.0-29.0); ABG pH (ARTERIAL) 7.408 UNITS (7.350-7.450)
[2016-06-19] MEDS: tiZANidine 4 MG TAB PO SCH ×2 (13:45→21:22)
[2016-06-19] MEDS: DEXTROMETHORPHAN 60MG/10ML SUSP 90ML BTL(DELSYM) PO PRN (13:48)
[2016-06-19 14:00] VITALS: BP 140/85
--- NOTE | 2016-06-19 14:06 | CR.PDOC ---
[facility] Consultation Consultation DATE OF CONSULTATION: 06/19/16 CONSULTATION REQUESTED BY: Dr. Cary Deleon REASON FOR CONSULTATION: [anxiety and depression worsening since recent physical (pulmonary) limitations ]. RELEVANT HISTORY: [Patient is a 60-year-old female with only recent psychiatric history significant for depressive symptoms and anxiety. Patient had been a long-time smoker and has a diagnosis of COPD. Patient has over the last 4 months developed with multiple episodes of COPD exacerbation. She since April 2016 has significant O2 desaturation with minimal exertion. She is now homebound due to her inability to ambulate without desaturation even while on nasal cannula oxygen. Patient most recently hospitalized for COPD exacerbation in April 2016. That hospitalization patient reports having quit smoking. Patient reports in 01/2016, a sudden decrease in physical functioning because of her pulmonary state. He reports another dramatic drop in functioning after the April 2016 hospitalization. As April patient reports she is homebound. She reports prior having a very social and active life. She was very active in her [employer]odaism and has multiple friends who she had visited often. She is a grandmother and is very close with her children and grandchildren. She continues to babysit her grandchildren frequently. Patient reports that she has dealt with chronic tearful episodes since 04/2016. She reports diminished sleep and appetite. She reports increased anxiety associated with sudden onset of shortness of breath. She recently expressed thoughts that she will be dying soon from her pulmonary condition. Patient denies suicidal ideations and homicidal ideations. She denies perceptual issues. Patient reports her primary protective factor is her love for her grandchildren. She wants to be around as long as possible for them. She expresses understanding that her committing suicide would be traumatic event for her grandchildren and children. Patient counseled that she had not started pulmonary rehabilitation as of yet. She was encouraged to contact pulmonary rehabilitation for an appointment to begin instruction on breathing techniques and other pulmonary exercises which will improve her pulmonary situation and likely decrease her level of anxiety. Patient currently reports she is ashamed of wearing nasal cannula oxygen, she also reports she is ashamed to go to [employer]odaism where she had been very active. She is tearful throughout interview. She though did respond to encouragement to begin her pulmonary rehabilitation. She also emphatically denied any thoughts to self injure or commit suicide. Patient is medication compliant and compliant with clinic follow-up appointments. She was encouraged to increase her social interaction and expressed understanding of the depressing affects of social isolation. No bizarre thoughts and behaviors or statements were expressed during this interview. Patient did not express any paranoid or psychotic thoughts during interview.]. PAST PSYCHIATRIC HISTORY: [Patient psychiatric hospitalization - denies Patient denies outpatient mental health history. Patient reports she use of duloxetine for fibromyalgia management. Patient recently started on bupropion by her PCP for management of anxiety/depression. Patient denies history of self- injurious behavior. Patient denies history of suicidal ideations and denies history of suicide attempt.] Substance use history: Patient denies history of alcohol use disorder symptoms. Patient denies use of illicit substances. Patient with long history of nicotine/tobacco use disorder severe. Patient reports not smoking since April 2016. Of note, patient had long history of opioid management for pain, she reports no history of abuse of prescription opiates. PAST MEDICAL HISTORY: [ 1. Coronary artery disease, hx of PR 2. Chronic obstructive pulmonary disease 3. Degenerative disk disease. 4. Depression. 5. Fibromyalgia. 6. Gastroesophageal reflux disease. 7. Human papillomavirus. 8. Hyperlipidemia. 9. Hypertension. 10. Hypothyroidism. 11. Myocardial infarction. PAST SURGICAL HISTORY: 1. Cholecystectomy. 2. Left breast biopsy. 3. D C and tubal ligation. 4. Tonsillectomy. 5. Exploratory lap. 6. Cardiac catheterization.] PERSONAL AND SOCIAL HISTORY: The patient was born and raised in [place]. Resides in: [place] Marital Status: Patient very close with her children and grandchildren and frequently babysits her grandchildren Patient very active in her [employer]ism and very outgoing and social with friends and family prior to April 2016 COPD exacerbation and admission Patient reports quitting tobacco in April 2016 Employment: unemployed LEGAL HISTORY: None MENTAL STATUS EXAMINATION: Patient is a [60]-year old female, who is [tearful and extremely anxious, cooperative, well kempt], [overweight, noted nasal cannula oxygen tubing]. Speech: Is [regular rate and prosody, she is noted to be agitated, but speech is spontaneous]. Thought processes: [Linear] Rate of thoughts: [Appropriate]. Thought content: [Fearful she soon will be dying from pulmonary condition. Abstract reasoning: [Intact]. Associations: [Intact]. Abnormal or psychotic thoughts: [No perceptual issues noted] Judgment: [Fair ] Insight: [Good] Oriented to: [Time, place and person.] Recent and Remote Memory: [Immediate, short-term and long-term memory is intact] . Attention Span and Concentration: [Good ]. Fund of knowledge: [ Good]. Mood: [Anxious ]. Affect: [ Extremely Anxious ] DIAGNOSIS: 1. [Major depressive disorder single episode severe without psychotic features 2. 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 RECOMMENDATIONS: 1. [Continue Cymbalta as currently prescribed for management of anxiety depression and fibromyalgia symptoms.]. 2. [Recommend discontinue Bupropion as this medication, as well as Cymbalta, both have mechanism of action of increased norepinephrine and serotonin which has been found to cause agitation when coadministered, but also increase blood pressure as well]. 3. Recommend start Bupropion taper from 150mg po BID, to start taper at 150 mg po qam 3 days THEN 75 mg po qam 3 days, THEN STOP. 4. Recommend concurrent up titration of Zoloft to start today at 50mg po daily 6 days then up titrate to 100 mg po qam after D/C of Bupropion, for anxiety and depression. 5. Recommend patient to pulmonary rehabilitation for structured on breathing techniques which can help decrease anxiety and agitation associated with abrupt shortness of breath and COPD exacerbation. 6. Recommend psychiatric follow-up at a mental health clinic within 14 days of discharge from hospital. 7. Recommend psychotherapy for patient's loss of identity as she reports distress from her sudden lack of functioning. She had identified herself as a highly active and social person prior to current physical(pulmonary) state. Vital Signs Vital Sign - Last 24 Hours 06/18/16 06/18/16 06/18/16 06/18/16 17:13 18:00 20:00 20:30 Temp 96.7 96.8 Pulse 85 95 Resp 18 21 22 B/P 141/80 158/84 Pulse Ox 94 96 O2 Delivery Nasal Cannula Nasal Cannula Nasal Cannula O2 Flow Rate 3.0 3.0 3.0 06/18/16 06/18/16 06/19/16 06/19/16 21:08 22:47 01:42 06:00 Temp 98.0 Pulse 103 Resp 20 22 B/P 138/69 Pulse Ox 98 O2 Delivery Nasal Cannula Nasal Cannula Nasal Cannula O2 Flow Rate 3.0 3.0 3.0 1/26/06/19/16 06/19/16 06/19/16 08:30 08:32 08:58 08:59 Pulse 103 B/P 138/69 138/69 Pulse Ox 95 92 O2 Delivery Nasal Cannula Nasal Cannula O2 Flow Rate 2.0 2.0 06/19/16 06/19/16 06/19/16 06/19/16 09:00 09:00 09:01 09:31 Resp 18 20 18 O2 Delivery Nasal Cannula O2 Flow Rate 2.0 06/19/16 10:00 Temp 96.2 Pulse 87 Resp 20 B/P 140/90 Pulse Ox 93 O2 Delivery Nasal Cannula O2 Flow Rate 2.0 Laboratory Data 24H Labs Laboratory Tests 2 06/18/16 16:51: Bedside Glucose (Misc Panel) 336H 06/18/16 17:02: Bedside Glucose (Misc Panel) 303H 06/18/16 19:58: Bedside Glucose (Misc Panel) 206H 06/19/16 06:43: Blood Urea Nitrogen 25H, Creatinine 0.66, Sodium Level 140, Potassium Level 4.7 , Chloride Level 96L, Carbon Dioxide Level 39H, Calcium Level 8.5, Aspartate Amino Transf (AST/SGOT) 9L, Alanine Aminotransferase (ALT/SGPT) 47, Alkaline Phosphatase 96, Total Bilirubin 0.4, Total Protein 6.1L, Albumin 3.0L, Albumin/ Globulin Ratio 0.97L, Anion Gap 5L, White Blood Count 11.9H, Red Blood Count 4.34, Hemoglobin 13.8, Hematocrit 42.8, Mean Corpuscular Volume 98.5H, Mean Corpuscular Hemoglobin 31.9, Mean Corpuscular Hemoglobin Concent 32.4, Red Cell Distribution Width 12.9, Platelet Count 352, Neutrophils (%) (Auto) 80.6H, Lymphocytes (%) (Auto) 11.7L, Monocytes (%) (Auto) 5.5H, Eosinophils (%) (Auto) 0.2, Basophils (%) (Auto) 0.9, Neutrophils # (Auto) 9.6H, Lymphocytes # (Auto) 1.5, Monocytes # (Auto) 0.7, Eosinophils # (Auto) 0.0, Basophils # (Auto) 0.1, Glomerular Filtration Rate > 60.0, Large Unclassified Cells # 0.1, Large Unclassified Cells % 1.1, Magnesium Level 2.0 06/19/16 10:34: Arterial Blood pH 7.408, Arterial Blood Partial Pressure CO2 51.9H, Arterial Blood Partial Pressure O2 83.8, Arterial Blood Total CO2 33.6H, Arterial Blood HCO3 32.0H, Arterial Blood Base Excess 6.0H, Arterial Blood Oxygen Saturation 95.0, Blood Gas Bicarbonate Standard 29.9H 06/19/16 11:58: Bedside Glucose (Misc Panel) 118H Home Medications Current Medications Current Medications Acetaminophen (Tylenol) 1,000 mg Q6H PRN PO PAIN; Start 06/13/16 at 17:45; Stop 07/13/16 at 17:44 Acetaminophen/ Hydrocodone Bitart (Frederic, Anexsia 5/325) 1 tab Q6HP PRN PO MILD /MODERATE PAIN (PS 1-7) Last administered on 06/19/16 09:01; Start 06/17/16 at 11:30; Stop 06/24/16 at 11:29 Albuterol/ Ipratropium (Duoneb (Ipr 0.5mg/Alb 2.5mg)) 3 ml Q2HP PRN NEB SOB/ WHEEZING; Start 06/13/16 at 17:45; Stop 06/14/16 at 07:46; Status DC Albuterol/ Ipratropium (Duoneb (Ipr 0.5mg/Alb 2.5mg)) 3 ml Q2HP PRN NEB SOB/ WHEEZING; Start 06/14/16 at 12:00; Stop 06/14/16 at 12:00; Status DC Albuterol/ Ipratropium (Duoneb (Ipr 0.5mg/Alb 2.5mg)) 3 ml Q2HP PRN NEB SOB/ WHEEZING Last administered on 06/18/16 10:36; Start 06/14/16 at 12:00; Stop at 11:59 Albuterol/ Ipratropium (Duoneb (Ipr 0.5mg/Alb 2.5mg)) 3 ml RQ6H NEB Last administered on 06/19/16 13:14; Start 06/13/16 at 20:00; Stop 07/13/16 at 19:59 Aspirin (Ecotrin) 81 mg DAILY PO Last administered on 06/19/16 08:59; Start at 09:00; Stop 07/14/16 at 08:59 Atorvastatin Calcium (Lipitor) 80 mg QHS PO Last administered on 06/18/16 20: 31; Start 06/13/16 at 21:00; Stop 07/13/16 at 20:59 Benzonatate (Tessalon Perles) 100 mg TID PO Last administered on 06/19/16 08: 59; Start 06/15/16 at 09:00; Stop 07/15/16 at 08:59 Benzonatate (Tessalon Perles) 100 mg TID PRN PO COUGH Last administered on 06/14 21:51; Start 06/13/16 at 17:45; Stop 06/14/16 at 22:20; Status DC Bisoprolol Fumarate (Zebeta) 2.5 mg DAILY PO Last administered on 06/19/16 08: 59; Start 06/14/16 at 09:00; Stop 07/14/16 at 08:59 Bupropion HCl (Wellbutrin) 150 mg BID PO Last administered on 06/19/16 08:57; Start 06/13/16 at 21:00; Stop 07/13/16 at 20:59 Buspirone HCl (Buspar) 10 mg Q6HP PRN PO ANXIETY Last administered on 08:58; Start 06/14/16 at 17:15; Stop 07/14/16 at 17:14 Dextromethorphan (Delsym Af 12hr Susp) 30 mg Q12HP PRN PO COUGH Last administered on 06/19/16 13:48; Start 06/17/16 at 09:00; Stop 07/17/16 at 08:59 Dextrose (Dextrose 50%) 25 ml ASDIRECTED PRN IV SEE LABEL COMMENTS; Start 06/17 at 08:30; Stop 07/17/16 at 08:29 Duloxetine HCl (Cymbalta) 30 mg QHS PO Last administered on 06/18/16 20:31; Start 06/13/16 at 21:00; Stop 07/13/16 at 20:59 Duloxetine HCl (Cymbalta) 60 mg DAILY PO Last administered on 06/19/16 08:59; Start 06/14/16 at 09:00; Stop 07/14/16 at 08:59 Enoxaparin Sodium (Lovenox) 40 mg DAILY SC Last administered on 06/18/16 09:02 ; Start 06/14/16 at 09:00; Stop 06/23/16 at 08:59 Fluticasone Propionate (Flonase 0.05% Nasal [place]) 1 spray DAILY NA Last administered on 06/19/16 09:02; Start 06/14/16 at 09:00; Stop 07/14/16 at 08:59 Gabapentin (Neurontin) 300 mg TID PO Last administered on 06/19/16 08:59; Start 06/13/16 at 21:00; Stop 07/13/16 at 20:59 Glucagon (Glucagon) 1 mg ASDIRECTED PRN SC SEE LABEL COMMENTS; Start 06/17/16 at 08:30; Stop 07/17/16 at 08:29 Glucose (Glucose) 16 GM ASDIRECTED PRN PO SEE LABEL COMMENTS; Start 06/17/16 at 08:30; Stop 07/17/16 at 08:29 Home Med (Med Rec Complete!) ASDIRECTED XX ; Start 06/13/16 at 17:30; Stop at 17:37; Status DC Ibuprofen (Motrin, Advil) 600 mg QID PRN PO PAIN Last administered on 05:21; Start 06/13/16 at 17:45; Stop 06/19/16 at 11:06; Status DC Insulin Human Lispro (HumaLOG INSULIN) See Protocol Table AC SC Last administered on 06/19/16 13:05; Start 06/17/16 at 12:00; Stop 07/17/16 at 11:59 Insulin Human Lispro (HumaLOG INSULIN) See Protocol Table QHS SC ; Start at 21:00; Stop 07/17/16 at 20:59 Lamotrigine (LaMICtal) 100 mg BID PO Last administered on 06/19/16 08:58; Start 06/13/16 at 21:00; Stop 07/13/16 at 20:59 Levalbuterol HCl 1.25 mg 1.25 mg Q4HP PRN INH SOB/WHEEZING Last administered on 06/14/16 10:16; Start 06/14/16 at 07:30; Stop 06/14/16 at 11:46; Status DC Levofloxacin (Levaquin) 500 mg DAILY@06 PO Last administered on 06/19/16 05:45 ; Start 06/17/16 at 06:00; Stop 06/21/16 at 05:59 Levofloxacin/IV Miscellaneous Supplies (Levaquin) 100 ml @ 100 mls/hr Q24H IV Last administered on 06/16/16 11:11; Start 06/14/16 at 12:00; Stop 06/16/16 at 13:49; Status DC Levothyroxine Sodium (Synthroid) 0.05 mg DAILY@06 PO Last administered on 05:45; Start 06/14/16 at 06:00; Stop 07/14/16 at 05:59 Lidocaine (Lidoderm Patch) 1 patch DAILY TD Last administered on 06/19/16 09: 01; Start 06/17/16 at 09:00; Stop 07/17/16 at 08:59 Lisinopril (Prinivil) 2.5 mg DAILY PO Last administered on 06/19/16 08:58; Start 06/14/16 at 09:00; Stop 07/14/16 at 08:59 Methylprednisolone (SOLU medrol) 40 mg Q12H IV Last administered on 06/18/16 20:30; Start 06/18/16 at 09:00; Stop 06/19/16 at 06:03; Status DC Methylprednisolone (SOLUmedrol) 60 mg Q12H IV Last administered on 06/17/16 20 :46; Start 06/17/16 at 20:00; Stop 06/18/16 at 07:55; Status DC Methylprednisolone (SOLUmedrol) 60 mg Q8H IV Last administered on 06/17/16 05: 51; Start 06/13/16 at 22:00; Stop 06/17/16 at 08:27; Status DC Morphine Sulfate (Morphine Sulfate Inj) 1 mg Q4HP PRN IV PAIN; Start 06/13/16 at 17:45; Stop 06/14/16 at 07:27; Status DC Morphine Sulfate (Morphine Sulfate Inj) 2 mg Q4HP PRN IV PAIN Last administered on 06/17/16 14:02; Start 06/14/16 at 07:30; Stop 06/21/16 at 07:29 Non-Formulary Medication ( See Comment Field Below ) REMOVE LIDODERM PATCH DAILY@21 XX Last administered on 06/18/16 20:32; Start 06/17/16 at 21:00; Stop 07/17/16 at 20:59 Omeprazole (PriLOSEC) 40 mg DAILY PO Last administered on 06/19/16 08:59; Start 06/14/16 at 09:00; Stop 07/14/16 at 08:59 Polyethylene Glycol (Miralax) 1 pkt DAILYPRN PRN PO CONSTIPATION Last administered on 06/18/16 08:59; Start 06/17/16 at 09:00; Stop 07/17/16 at 08:59 Prednisone (Deltasone) 40 mg BID PO Last administered on 06/19/16 08:58; Start 06/19/16 at 09:00; Stop 06/19/16 at 10:36; Status DC Prednisone (Deltasone) 40 mg DAILY PO ; Start 06/20/16 at 09:00; Stop 07/20/16 at 08:59 Salmeterol Xinafoate/ Fluticasone (Advair Diskus 250/50) 1 puff BID INH Last administered on 06/19/16 07:31; Start 06/13/16 at 21:00; Stop 07/13/16 at 20:59 Senna/Docusate Sodium (Senokot S) 2 tab BID PO Last administered on 06/19/16 09:00; Start 06/17/16 at 09:00; Stop 07/17/16 at 08:59 Tiotropium [place] (Spiriva Handihaler) 1 inhalation DAILY@08 INH Last administered on 06/19/16 07:30; Start 06/14/16 at 08:00; Stop 07/14/16 at 07:59 Tizanidine HCl (Zanaflex) 2 mg Q8H PO Last administered on 06/19/16 13:45; Start 06/19/16 at 14:00; Stop 07/19/16 at 13:59 Scheduled (Flonase Allergy Relief) 50 Mcg/Act Spr 1 SPRAY NA DAILY (Reported) Aspirin (Aspirin) 81 Mg Tab 81 MG PO DAILY (Reported) Atorvastatin Calcium (Lipitor) 80 Mg Tab 80 MG PO QHS (Reported) Bisoprolol Fumarate (Bisoprolol Fumarate) 5 Mg Tab 2.5 MG PO DAILY (Reported) Bupropion HCl (Bupropion HCl) 75 Mg Tab 150 MG PO BID (Reported) Duloxetine Hcl (Duloxetine HCl) 60 Mg Cap 60 MG PO DAILY (Reported) Duloxetine Hcl (Duloxetine HCl) 30 Mg Cap 30 MG PO QHS (Reported) Gabapentin (Gabapentin) 300 Mg Cap 300 MG PO TID (Reported) Lamotrigine (LaMICtal) 100 Mg Tab 100 MG PO BID (Reported) Levothyroxine Sodium (Synthroid) 50 Mcg Tab 50 MCG PO DAILY (Reported) Lisinopril (Lisinopril) 2.5 Mg Tab 2.5 MG PO DAILY (Reported) Omeprazole (Omeprazole) 40 Mg Cap 40 MG PO DAILY (Reported) Prednisone (Prednisone) 10 Mg Tab 10 MG PO ASDIRECTED (Reported) TAPER DOSE - SEE COMMENTS Salmeterol/Fluticasone (Advair Diskus 250-50 Mcg/Dose) 14 Puff/Inhaler Aerp 1 PUFF INH BID (Reported) Tiotropium [place] Monohydrate (Spiriva Handihaler) 18 Mcg Cap 1 INHALATION INH DAILY (Reported) Scheduled PRN Acetaminophen (Tylenol Extra Strength) 500 Mg Tab 1,000 MG PO Q6H PRN PRN PAIN ( Reported) Albuterol Sulfate (Ventolin Hfa) 200 Puff/8 Gm Aers 2 PUFF INH Q4H PRN PRN SHORTNESS OF BREATH (Reported) Albuterol Sulfate (Albuterol Sulfate) 2.5 Mg/3 Ml Nebu 2.5 MG INH Q4H PRN PRN SHORTNESS OF BREATH (Reported) Benzonatate (Benzonatate) 100 Mg Cap 100 MG PO TID PRN PRN COUGH (Reported) Ibuprofen (Ibuprofen) 600 Mg Tab 600 MG PO QID PRN PRN PAIN (Reported) Menthol (Bengay Vanishing Scent) 2.5 % Gel 1 DOSE EXT QID PRN PRN PAIN (Reported ) PLACES ON LOWER BACK AND HIPS Allergies Coded Allergies: No Known Drug Allergy (Verified Allergy, Unknown, 08/30/12) ABRAHAM GOODE MD Jun 19, 2016 14:06
[2016-06-19] MEDS: IPRATROPIUM 0.5MG/ALBUTEROL 2.5MG INH SOL UD 3ML (DUONEB)(J7620) NEB PRN (17:34)
[2016-06-19 18:00] VITALS: BP 150/86
[2016-06-19] MEDS ORDERED: SERTRALINE HCL 50 MG TAB PO SCH (21:00)
[2016-06-19] MEDS: ATORVASTATIN 20 MG TAB PO SCH (21:23)
[2016-06-19] MEDS: **NOTE PATIENT COMMENT** MISC XX SCH (21:24)
[2016-06-19 22:00] VITALS: BP 134/74
[2016-06-20] MEDS: IPRATROPIUM 0.5MG/ALBUTEROL 2.5MG INH SOL UD 3ML (DUONEB)(J7620) NEB SCH ×2 (01:07→08:00)
[2016-06-20 02:00] VITALS: BP 128/67
[2016-06-20] MEDS: NORCO, ANEXSIA 5/325MG TABLET (HYDROcodone/ACETAMINOPHEN) PO PRN (03:27)
[2016-06-20] MEDS: LEVOTHYROXINE 0.05 MG TAB (50 MCG) PO SCH (05:44)
[2016-06-20] MEDS: tiZANidine 4 MG TAB PO SCH (05:44)
[2016-06-20] MEDS: LevoFLOXacin 500 MG TABLET PO SCH (05:45)
[2016-06-20 06:00] VITALS: BP 155/84
[2016-06-20] MEDS: IPRATROPIUM 0.5MG/ALBUTEROL 2.5MG INH SOL UD 3ML (DUONEB)(J7620) NEB PRN (06:27)
[2016-06-20] MEDS: busPIRone 10 MG TAB PO PRN (06:52)
[2016-06-20 07:06] LABS: BASO # 0.1 K/mm3 (0.0-0.2); BASO % 0.9 % (0.0-1.0); EOS # 0.2 K/mm3 (0.0-0.50); EOS % 1.2 % (0.0-3.0); LARGE UNSTAINED CELL # 0.2 K/mm3 (0.0-0.4); LARGE UNSTAINED CELL % 1.2 % (0.0-4.0); LYMPH # 3.2 K/mm3 (1.5-4.5); LYMPH % 21.6 % (24.0-44.0); MEAN CORPUSCULAR HEMOGLOBIN 31.4 pg (27.0-33.0); MEAN CORPUSCULAR HGB CONC 32.6 g/dl (32.0-36.5); MEAN CORPUSCULAR VOLUME 96.2 fl (80.0-96.0); MONO # 0.7 K/mm3 (0.0-0.8); MONO % 4.7 % (0.0-5.0); NEUTROPHILS # 9.8 K/mm3 (1.8-7.7); NEUTROPHILS % 70.2 % (36.0-66.0); PLATELET COUNT, AUTOMATED 340 k/mm3 (150-450); RED CELL DISTRIBUTION WIDTH 12.9 % (11.5-14.5)
[2016-06-20 07:26] LABS: ALBUMIN/GLOBULIN RATIO 0.94 (1.00-1.93); ALKALINE PHOSPHATASE 79 U/L (45-117); ALT/SGPT 40 U/L (12-78); ANION GAP 1 MEQ/L (8-16); AST/SGOT 13 U/L (15-37); BILIRUBIN,TOTAL 0.5 MG/DL (0.2-1.0); BLOOD UREA NITROGEN 20 MG/DL (7-18); CALCIUM LEVEL 8.4 MG/DL (8.5-10.1); CARBON DIOXIDE LEVEL 39 MEQ/L (21-32); CHLORIDE LEVEL 98 MEQ/L (98-107); CREATININE FOR GFR 0.58 MG/DL (0.55-1.02); GLOMERULAR FILTRATION RATE > 60.0 (>51); GLUCOSE, FASTING 143 MG/DL (70-105); MAGNESIUM LEVEL 1.9 MG/DL (1.8-2.4); POTASSIUM SERUM 4.9 MEQ/L (3.5-5.1); SODIUM LEVEL 138 MEQ/L (136-145); TOTAL PROTEIN 6.2 GM/DL (6.4-8.2)
[2016-06-20] MEDS: OMEPRAZOLE 20 MG CAP PO SCH (08:18)
[2016-06-20 08:19] VITALS: BP 155/84
[2016-06-20] MEDS: ASPIRIN 81 MG ENTERIC TAB PO SCH (08:19)
[2016-06-20] MEDS: SENOKOT S TAB PO SCH (08:19)
[2016-06-20] MEDS: LISINOPRIL *2.5 MG* TAB PO SCH (08:19)
[2016-06-20] MEDS: GABAPENTIN 300 MG CAP PO SCH (08:19)
[2016-06-20] MEDS: BISOPROLOL FUM 2.5 MG PER 1/2TAB PO SCH (08:19)
[2016-06-20] MEDS: BENZONATATE 100 MG CAP PO SCH (08:19)
[2016-06-20] MEDS: lamoTRIgine 100MG TAB PO SCH (08:19)
[2016-06-20] MEDS: ENOXAPARIN 40 MG/0.4 ML SYRINGE (J1650) SC SCH (08:20)
[2016-06-20] MEDS: DULoxetine 30 MG CAP (CYMBALTA) PO SCH (08:20)
[2016-06-20] MEDS: LIDOCAINE 5% (LIDODERM) PATCH TD SCH (08:20)
[2016-06-20] MEDS: HumaLOG INSULIN (NovoLOG) PER UNIT SC SCH ×2 (08:21→12:33)
[2016-06-20] MEDS: TIOTROPIUM INHALER/CAPSULE (SPIRIVA) INH SCH (08:26)
[2016-06-20] MEDS: ADVAIR DISKUS 250/50 INH PWD INH SCH (08:26)
[2016-06-20] MEDS ORDERED: NORCOTAB PO (08:52)
[2016-06-20] MEDS ORDERED: BUPR75TA5 PO (08:52)
[2016-06-20] MEDS ORDERED: SERT-141 PO (08:52)
[2016-06-20] MEDS ORDERED: PRED10PA2 PO (08:52)
[2016-06-20] MEDS ORDERED: BUSP10TA PO (08:52)
[2016-06-20] MEDS ORDERED: ZANA4TAB PO (08:52)
[2016-06-20] MEDS ORDERED: DEXT30SUSP PO (08:52)
[2016-06-20] MEDS ORDERED: predniSONE 20 MG TAB PO SCH (09:00)
[2016-06-20] MEDS ORDERED: buPROPion 75 MG TAB PO SCH (09:00)
[2016-06-20] MEDS: FLUTICASONE PROP 0.05% NASAL SPRAY 16 GM (FLONASE) SCH (09:00)
== END 2016-06-20 13:00 | disposition home health service (06) | DRG 191 ==
LOC: M ED 13:19 → M ED INP 17:34 → M PCU 21:13 → M ALC 06-17 16:40
PROVIDERS: ADMIT Internal Medicine; ATTEND Internal Medicine Nephrology
DX: J44.1 Chronic obstructive pulmonary disease with (acute) exacerbation (principal); F32.2 Major depressive disorder, single episode, severe without psychotic features; J96.11 Chronic respiratory failure with hypoxia; I25.10 Atherosclerotic heart disease of native coronary artery without angina pectoris; I10 Essential (primary) hypertension; E03.9 Hypothyroidism, unspecified; F41.1 Generalized anxiety disorder; E78.5 Hyperlipidemia, unspecified; K21.9 Gastro-esophageal reflux disease without esophagitis; M79.7 Fibromyalgia; I25.2 Old myocardial infarction; D35.01 Benign neoplasm of right adrenal gland; R07.89 Other chest pain; R91.1 Solitary pulmonary nodule; Z99.81 Dependence on supplemental oxygen; M51.34 Other intervertebral disc degeneration, thoracic region; Z87.891 Personal history of nicotine dependence; Z79.51 Long term (current) use of inhaled steroids; Z79.82 Long term (current) use of aspirin; Z79.899 Other long term (current) drug therapy

== ENCOUNTER 2016-06-29 18:18 | Inpatient (IN) | payer MEDICARE, MEDICAID ==
[~2016-06-29] VITALS: Ht 165.1 cm; Wt 87.3 kg
[~2016-06-29 18:18] MED LIST changes: +BUSP10TA PO; +DEXT30SUSP PO; +IBUP60TA PO; +NORCOTAB PO; +PRED10PA2 PO; +SERT-141 PO; +ZANA4TAB PO
[2016-06-29 18:47] LABS: ABG BASE EXCESS 4.6 (-2.0-2.0); ABG DEVICE NASAL CANN; ABG HCO3 29.4 MEQ/L (22.0-26.0); ABG PARTIAL PRESSURE CO2 44.5 mmHg (35.0-45.0); ABG STANDARD HCO3 28.5 MEQ/L (22.0-26.0); ABG TOTAL CO2 30.8 MEQ/L (22.0-29.0); ABG pH (ARTERIAL) 7.438 UNITS (7.350-7.450)
[2016-06-29 19:06] LABS: BASO % 0.4 % (0.0-1.0); EOS # 0.1 K/mm3 (0.0-0.50); EOS % 1.4 % (0.0-3.0); LARGE UNSTAINED CELL # 0.1 K/mm3 (0.0-0.4); LARGE UNSTAINED CELL % 1.4 % (0.0-4.0); LYMPH # 1.4 K/mm3 (1.5-4.5); LYMPH % 14.2 % (24.0-44.0); MEAN CORPUSCULAR HEMOGLOBIN 31.8 pg (27.0-33.0); MEAN CORPUSCULAR VOLUME 93.6 fl (80.0-96.0); MONO # 0.3 K/mm3 (0.0-0.8); MONO % 3.4 % (0.0-5.0); NEUTROPHILS # 7.9 K/mm3 (1.8-7.7); NEUTROPHILS % 79.2 % (36.0-66.0); PLATELET COUNT, AUTOMATED 347 k/mm3 (150-450); RED CELL DISTRIBUTION WIDTH 12.3 % (11.5-14.5)
[2016-06-29] MEDS ORDERED: IPRATROPIUM 0.5MG/ALBUTEROL 2.5MG INH SOL UD 3ML (DUONEB)(J7620) As Ordered ONE (19:19)
[2016-06-29 19:25] LABS: ANION GAP 7 MEQ/L (8-16); BLOOD UREA NITROGEN 14 MG/DL (7-18); CARBON DIOXIDE LEVEL 36 MEQ/L (21-32); CHLORIDE LEVEL 96 MEQ/L (98-107); CREATININE FOR GFR 0.64 MG/DL (0.55-1.02); GLOMERULAR FILTRATION RATE > 60.0 (>51); GLUCOSE, FASTING 149 MG/DL (70-105); POTASSIUM SERUM 4.3 MEQ/L (3.5-5.1); SODIUM LEVEL 139 MEQ/L (136-145)
[2016-06-29] MEDS ORDERED: dexameTHASONE 4 MG/ML 1ML VIAL (J1100) As Ordered ONE (19:26)
[2016-06-29] MEDS ORDERED: MORPHINE 2 MG/ML 1ML SYRINGE As Ordered ONE (20:08)
[2016-06-29] MEDS ORDERED: ONDANSETRON 4MG/2ML VIAL (J2405) IV PRN (20:45)
[2016-06-29] MEDS ORDERED: IPRATROPIUM 0.5MG/ALBUTEROL 2.5MG INH SOL UD 3ML (DUONEB)(J7620) NEB PRN (20:45)
[2016-06-29] MEDS ORDERED: ZOLO50TA PO (21:04)
[2016-06-29] MEDS ORDERED: METF500T PO (21:04)
[2016-06-29] MEDS ORDERED: NAPR500T PO (21:04)
[2016-06-29] MEDS ORDERED: BUSP10TA PO (21:04)
[2016-06-29] MEDS ORDERED: DEXTROSE 50% 50 ML SYRINGE IV PRN (21:30)
[2016-06-29] MEDS ORDERED: BENZONATATE 100 MG CAP PO PRN (21:30)
[2016-06-29] MEDS ORDERED: GLUCAGON FOR INJ 1 MG VIAL (J1610) SC PRN (21:30)
[2016-06-29] MEDS ORDERED: GLUCOSE 4 GM CHEW TABLET PO PRN (21:30)
--- NOTE | 2016-06-29 22:54 | EDDOCDS ---
Nurse's Notes [facility] Name: Constance Zavala Age: 60 yrs Sex: Female : 1955 Arrival Date: 06/29/2016 Time: 18:18 Bed 12 Private MD: Diagnosis: Chronic obstructive pulmonary disease with (acute) exacerbation Presentation: 06/29 18:30 Presenting complaint: EMS states: Difficulty breathing with a history of COPD. Hasa jo3 productive cough with dark sputum. On Home O2 2L 91% at home on arrival. Duoneb and 125mg Solumedrol in 22g in LFA. 98% presently on 2L. Suicide/Homicide risk assessment- the patient denies having any suicidal and/or homicidal ideations and does not present with any other emotional, behavioral or mental health complaints. 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 Transition of care: patient was not received from another setting of care. 18:30 Acuity: JAYCEE Level 3 jo3 18:30 Method Of Arrival: Ambulance jo3 21:32 Adult Sepsis Screening: The patient does not have new or worsening altered mentation. af2 Patient's respiratory rate is less than 22. Systolic blood pressure is greater than 100. Patient has a qSOFA score of 0- Negative Sepsis Screen. Triage Assessment: 18:35 HIV screening NA for this visit Offered previously. jo3 18:56 General: Appears in no apparent distress, Behavior is appropriate for age, cooperative. jo3 The patient is triaged at the bedside. See Assessment in Nurses Notes section of ED record. Neurological: Level of Consciousness is awake, alert, Oriented to person, place, time. Cardiovascular: No deficits noted. Respiratory: Airway is patent Respiratory effort is unlabored, Breath sounds with crackles bilaterally. Breath sounds with wheezes. Derm: Skin is pink, warm & dry. 21:33 Respiratory: Onset: The symptoms/episode began/occurred at an unknown time. af2 Historical: - Allergies: No known drug Allergies; - Home Meds: 1. Advair Diskus 250-50 mcg/dose Inhl dsdv 2. albuterol sulfate 2.5 mg /3 mL (0.083 %) Inhl nebu 3 mL 4 times per day 3. aspirin 81 mg Oral tab 1 tab once daily 4. atorvastatin 80 mg oral tab 1 tab once daily 5. bisoprolol fumarate 5 mg oral tab 0.5 tab once daily 6. duloxetine 30 mg Oral cpDR 1 cap once daily 7. duloxetine 60 mg Oral cpDR 1 cap once daily 8. gabapentin 300 mg Oral cap 1 cap 3 times per day 9. bupropion HCl 300 mg Oral Tb24 1 tab twice a day 10. Home O2 2L 11. levothyroxine 50 mcg Oral tab 1 tab once daily 12. lamotrigine 100 mg Oral tr24 bid 13. lisinopril 2.5 mg Oral tab 1 tab once daily 14. unknown abx by hospitalist 15. fluticasone 50 mcg/actuation nasal spsn 1 spray once daily 16. Ventolin HFA 90 mcg/actuation Nebulizer HFAA 1 puff every 4-6 hours 17. Spiriva with HandiHaler 18 mcg Inhl CpDv 1 cap once daily - PMHx: CAD; COPD; Degenerative disc disease; Depression; GERD; HPV; Hypercholesterolemia; Hypertension; Hypothyroidism; VT; - PSHx: Cholecystectomy; CABG; Breast biopsy- Left; D & C; Tubal ligation; Tonsillectomy; Exploratory lap; - Family history: Not pertinent. - Social history: Smoking status: unknown if patient ever smoked tobacco. No barriers to communication noted, The patient speaks fluent Maldivian. - : The pt / caregiver states he / she is not on anticoagulants. Home medication list is obtained from. - Exposure Risk Screening:: None identified. Screenin:14 Screening information is obtained from the patient. Fall risk: No risks identified. af2 Assistance ADL's: requires no assistance with activities of daily living. Abuse/DV Screen: The patient / caregiver reports he/she is: not in a situation that causes fear, pain or injury. Nutritional screening: No deficits noted. Advance Directives: Currently, there is no health care proxy. home support is adequate. Assessment: 18:56 Reassessment: see triage assessment . jo3 19:00 General: Appears in no apparent distress, comfortable, Behavior is appropriate for age, af2 cooperative, Assumed care of pt at this time. RR even and unlabored. Pt currently receiving neb treatment. . Neurological: Level of Consciousness is awake, alert, obeys commands. Cardiovascular: Rhythm is sinus rhythm No ectopy. Chest pain is denied. Respiratory: Airway is patent Respiratory effort is labored, Breath sounds with wheezes bilaterally. Derm: Skin is normal. 20:00 General: Appears in no apparent distress, comfortable, Behavior is appropriate for age, af2 cooperative, . Cardiovascular: Rhythm is sinus rhythm. Respiratory: Airway is patent Respiratory effort is even, unlabored. Derm: Skin is normal. 21:13 General: Appears in no apparent distress, comfortable, Behavior is appropriate for age, af2 cooperative. Neurological: Level of Consciousness is awake, alert, obeys commands, Oriented to person, place, time. Cardiovascular: Rhythm is sinus rhythm No ectopy. Respiratory: Airway is patent Respiratory effort is even, unlabored. Derm: Skin is normal. 22:15 General: Appears in no apparent distress, comfortable, Behavior is appropriate for age, af2 cooperative. Neurological: Level of Consciousness is awake, alert, obeys commands, Oriented to person, place, time. Cardiovascular: Rhythm is sinus rhythm No ectopy. Respiratory: Airway is patent Respiratory effort is even, unlabored. Derm: Skin is normal. Vital Signs: 18:34 BP 136 / 74; Pulse 94; Resp 26; Temp 97.7(TE); Pulse Ox 93% on 4 lpm NC; Weight 83.91 ct3 kg (R); Height 5 ft. 5 in. (165.10 cm) (R); Pain 8/10; 21:34 Pulse 108 MON; Pulse Ox 93% ; af2 21:34 BP 141 / 76 (auto/); af2 21:35 BP 141 / 76; Pulse 108; Resp 25; Temp 97.7; Pulse Ox 96% on 4 lpm NC; Pain 0/10; jlm 21:47 BP 137 / 68 (auto/); af2 21:48 Pulse 100 MON; Pulse Ox 93% ; af2 22:02 BP 126 / 75 (auto/); af2 22:03 Pulse 98 MON; Pulse Ox 93% ; af2 22:17 BP 140 / 73 (auto/); af2 22:18 Pulse 102 MON; Pulse Ox 94% ; af2 22:32 BP 148 / 78 (auto/); af2 22:33 Pulse 102 MON; Resp 18 S; Pulse Ox 97% on 2 lpm NC; af2 18:34 Body Mass Index 30.79 (83.91 kg, 165.10 cm) ct3 Vitals: 18:34 Log In Time N/A - ambulance arrival. ct3 ED Course: 18:18 Patient visited by Zehra Gannon PCA. ar3 18:18 Patient moved to Waiting ar3 18:19 Patient moved to 12 ar3 18:33 EKG done. (by ED staff). Reviewed by Vidya Villavicencio MD. indira 18:34 Patient visited by Jasmyne Jimenez PCA. indira 18:34 Triage Initiated jo3 18:34 Pt greeted and oriented to ED. Patient advised of names of staff involved in care, indira location of call griffith, wait times and NPO status. Patient has correct armband on for positive identification. Placed in gown. Bed in low position. Call light in reach. Side rails up X2. clinical research monitor on. Pulse ox on. NIBP on. 18:35 Patient visited by Viki Bills PCA. ct3 18:55 Cesar Mesa DO is Attending Physician. cs11 18:56 Patient visited by Cesar Mesa DO. cs11 18:56 Patient visited by Ewa Garcia RN. jo3 19:05 Francine Barreto RN is Primary Nurse. af2 19:09 Labs/Blood culture drawn. indira 19:32 Patient visited by Francine Barreto RN. af2 19:59 Linn Valentin is Hospitalizing Provider. cs11 20:12 [facility] Payment Agreement was scanned into [employer] and attached to record. ks16 20:32 Written Provider Order was scanned into [employer] and attached to record. ml3 20:45 Patient visited by Ana Aguirre, Content Designer. jlm 20:45 EKG done. (by ED staff). Reviewed by Cesar Mesa DO. jlm 21:14 Maintain field IV. Dressing intact. Good blood return noted. Site clean & dry. Gauge & af2 site: #22G to left forearm.. No procedures done that require assistance. 21:15 Patient visited by Francine Barreto RN. af2 21:32 The patient / caregiver is instructed regarding the plan of care and ED course. af2 21:37 Patient visited by Ana Aguirre, Content Designer. jlm Administered Medications: 19:18 Drug: Albuterol-Ipratropium 1 neb [ipratropium-albuterol 0.5 mg-3 mg(2.5 mg base)/3 mL rs5 nebulization soln (1 neb)] Route: Nebulizer; 19:23 Drug: Albuterol-Ipratropium 1 neb [ipratropium-albuterol 0.5 mg-3 mg(2.5 mg base)/3 mL rs5 nebulization soln (1 neb)] Route: Nebulizer; 19:23 Drug: Albuterol-Ipratropium 1 neb [ipratropium-albuterol 0.5 mg-3 mg(2.5 mg base)/3 mL rs5 nebulization soln (1 neb)] Route: Nebulizer; 19:32 Drug: Dexamethasone 6 mg [dexamethasone 4 mg/mL injection solution] Route: IV; Rate: af2 bolus; Site: right forearm; 20:21 Drug: morphine 2 mg [morphine 2 mg/mL intravenous cartridge (1 mL)] Route: IVP; Site: af2 left forearm; RT: 19:18 Initial Med Neb Given as ordered Subsequent Med Neb Given as ordered Patient tolerated rs5 procedure well without adverse effect. 19:23 Respiratory: Respiratory effort is even, unlabored, Respiratory pattern is regular rs5 symmetrical, Breath sounds are coarse bilaterally. Breath sounds are diminished Breath sounds with wheezes Reports cough that is productive. Order Results: Lab Order: Basic Metabolic Profile; SPEC'M 06/29/16 18:59 Test: GLUCOSE, FASTING; Value: 149; Range: 70-105; Abnormal: Above high normal; Units: MG/DL; Status: F Test: BLOOD UREA NITROGEN; Value: 14; Range: 7-18; Units: MG/DL; Status: F Test: CREATININE FOR GFR; Value: 0.64; Range: 0.55-1.02; Units: MG/DL; Status: F Test: GLOMERULAR FILTRATION RATE; Value: > 60.0; Range: >51; Status: F Test: SODIUM LEVEL; Value: 139; Range: 136-145; Units: MEQ/L; Status: F Test: POTASSIUM SERUM; Value: 4.3; Range: 3.5-5.1; Units: MEQ/L; Status: F Test: CHLORIDE LEVEL; Value: 96; Range: 98-107; Abnormal: Below low normal; Units: MEQ/L; Status: F Test: CARBON DIOXIDE LEVEL; Value: 36; Range: 21-32; Abnormal: Above high normal; Units: MEQ/L; Status: F Test: ANION GAP; Value: 7; Range: 8-16; Abnormal: Below low normal; Units: MEQ/L; Status: F Test: CALCIUM LEVEL; Value: 9.0; Range: 8.5-10.1; Units: MG/DL; Status: F Test Note: ; Units are mL/min/1.73 m2 Chronic Kidney Disease Staging per NKF: Stage I & II GFR >=60 Normal to Mildly Decreased Stage III GFR 30-59 Moderately Decreased Stage IV GFR 15-29 Severely Decreased Stage V GFR <15 Very Little GFR Left ESRD GFR <15 on CORRUGATOR HELPER Lab Order: CBC with Diff; SPEC'M 06/29/16 18:59 Test: WHITE BLOOD COUNT; Value: 10.0; Range: 4.0-10.0; Units: K/mm3; Status: F Test: RED BLOOD COUNT; Value: 3.95; Range: 4.00-5.40; Abnormal: Below low normal; Units: M/mm3; Status: F Test: HEMOGLOBIN; Value: 12.6; Range: 12.0-16.0; Units: g/dl; Status: F Test: HEMATOCRIT; Value: 37.0; Range: 36.0-47.0; Units: %; Status: F Test: MEAN CORPUSCULAR VOLUME; Value: 93.6; Range: 80.0-96.0; Units: fl; Status: F Test: MEAN CORPUSCULAR HEMOGLOBIN; Value: 31.8; Range: 27.0-33.0; Units: pg; Status: F Test: MEAN CORPUSCULAR HGB CONC; Value: 34.0; Range: 32.0-36.5; Units: g/dl; Status: F Test: RED CELL DISTRIBUTION WIDTH; Value: 12.3; Range: 11.5-14.5; Units: %; Status: F Test: PLATELET COUNT, AUTOMATED; Value: 347; Range: 150-450; Units: k/mm3; Status: F Test: NEUTROPHILS %; Value: 79.2; Range: 36.0-66.0; Abnormal: Above high normal; Units: %; Status: F Test: LYMPH %; Value: 14.2; Range: 24.0-44.0; Abnormal: Below low normal; Units: %; Status: F Test: MONO %; Value: 3.4; Range: 0.0-5.0; Units: %; Status: F Test: EOS %; Value: 1.4; Range: 0.0-3.0; Units: %; Status: F Test: BASO %; Value: 0.4; Range: 0.0-1.0; Units: %; Status: F Test: LARGE UNSTAINED CELL %; Value: 1.4; Range: 0.0-4.0; Units: %; Status: F Test: NEUTROPHILS #; Value: 7.9; Range: 1.8-7.7; Abnormal: Above high normal; Units: K/mm3; Status: F Test: LYMPH #; Value: 1.4; Range: 1.5-4.5; Abnormal: Below low normal; Units: K/mm3; Status: F Test: MONO #; Value: 0.3; Range: 0.0-0.8; Units: K/mm3; Status: F Test: EOS #; Value: 0.1; Range: 0.0-0.50; Units: K/mm3; Status: F Test: BASO #; Value: 0.0; Range: 0.0-0.2; Units: K/mm3; Status: F Test: LARGE UNSTAINED CELL #; Value: 0.1; Range: 0.0-0.4; Units: K/mm3; Status: F Lab Order: -Arterial Blood Gas; [facility]' 06/29/16 18:40 Test: ABG pH (ARTERIAL); Value: 7.438; Range: 7.350-7.450; Units: UNITS; Status: F Test: ABG PARTIAL PRESSURE CO2; Value: 44.5; Range: 35.0-45.0; Units: mmHg; Status: F Test: ABG PARTIAL PRESSURE O2; Value: 76.0; Range: 75.0-100.0; Units: mmHg; Status: F Test: ABG TOTAL CO2; Value: 30.8; Range: 22.0-29.0; Abnormal: Above high normal; Units: MEQ/L; Status: F Test: ABG HCO3; Value: 29.4; Range: 22.0-26.0; Abnormal: Above high normal; Units: MEQ/L; Status: F Test: ABG BASE EXCESS; Value: 4.6; Range: -2.0-2.0; Abnormal: Above high normal; Status: F Test: ABG STANDARD HCO3; Value: 28.5; Range: 22.0-26.0; Abnormal: Above high normal; Units: MEQ/L; Status: F Test: ABG O2 SATURATION; Value: 94.3; Range: 95.0-99.0; Abnormal: Below low normal; Units: %; Status: F Test: ABG DEVICE; Value: NASAL RHONDA; Status: F Lab Order: CARDIAC MARKER PANEL; SPEC'M 06/29/16 18:59 Test: CPK CREATINE PHOSPHOKINASE; Value: 51; Range: 26-192; Units: U/L; Status: F Test: CK-MB VALUE MASS; Value: 2.4; Range: 0.0-3.6; Units: NG/ML; Status: F Test: MB/CK RELATIVE INDEX; Value: 4.70; Range: < OR =4; Abnormal: Above high normal; Status: F Test: TROPONIN I; Value: < 0.02; Range: < 0.10; Units: NG/ML; Status: F Test Note: ; DIAGNOSIS CRITERIA MMB ng/ml Relative Index (RI) NON-AMI < or = 5 N/A [place] > 5 < or = 4 AMI > 5 > 4 Lab Order: C REACTIVE PROTEIN QUANTITATIV; SPEC'M 06/29/16 18:59 Test: C REACTIVE PROTEIN QUANTITATIV; Value: 15.40; Range: 0.00-0.30; Abnormal: Above high normal; Units: MG/DL; Status: F Outcome: 19:59 Decision to Hospitalize by Provider. cs11 21:32 Discharge Assessment: patient administered narcotics - yes. Patient was admitted to [facility] or transferred to another facility. 21:33 The following High Risk Discharge criteria are identified: None. Admitted to PCU af2 accompanied by nurse, accompanied by tech, via stretcher, with oxygen, on monitor, with chart. Condition: stable. No special radiology studies were completed. Property :Personal belongings accompany Pt. 22:54 Patient left the ED. suha Signatures: Jana Pompa RN RN jan Lopresti, Mary-Elizabeth, Content Designer Unit ml3 Helmerci,Ewa,RN RN jo3 Zehra Gannon, BAND TIER BAND TIER ar3 Jasmyne Jimenez, BAND TIER BAND TIER indira Viki Bills, BAND TIER BAND TIER ct3 Bishop Rojo,RT RT rs5 Cesar Mesa, DO DO cs11 Ana Aguirre, Content Designer Unit jlm Estevan,Francine,RN RN af2 Karen Kelsey, Reg Reg ks16 MTDD
--- NOTE | 2016-06-29 22:54 | EDDOCDS ---
Physician Documentation [facility] Name: Constance Zavala Age: 60 yrs Sex: Female : 1955 Arrival Date: 06/29/2016 Time: 18:18 Bed 12 Private MD: Disposition: 06/29/16 19:59 Hospitalization ordered by Linn Valentin for Inpatient Admission. Preliminary diagnosis is Chronic obstructive pulmonary disease with (acute) exacerbation. - [facility] - Status is Inpatient Admission. suha - Condition is Stable. - Problem is chronic. - Symptoms have improved. Historical: - Allergies: No known drug Allergies; - Home Meds: 1. Advair Diskus 250-50 mcg/dose Inhl dsdv 2. albuterol sulfate 2.5 mg /3 mL (0.083 %) Inhl nebu 3 mL 4 times per day 3. aspirin 81 mg Oral tab 1 tab once daily 4. atorvastatin 80 mg oral tab 1 tab once daily 5. bisoprolol fumarate 5 mg oral tab 0.5 tab once daily 6. duloxetine 30 mg Oral cpDR 1 cap once daily 7. duloxetine 60 mg Oral cpDR 1 cap once daily 8. gabapentin 300 mg Oral cap 1 cap 3 times per day 9. bupropion HCl 300 mg Oral Tb24 1 tab twice a day 10. Home O2 2L 11. levothyroxine 50 mcg Oral tab 1 tab once daily 12. lamotrigine 100 mg Oral tr24 bid 13. lisinopril 2.5 mg Oral tab 1 tab once daily 14. unknown abx by hospitalist 15. fluticasone 50 mcg/actuation nasal spsn 1 spray once daily 16. Ventolin HFA 90 mcg/actuation Nebulizer HFAA 1 puff every 4-6 hours 17. Spiriva with HandiHaler 18 mcg Inhl CpDv 1 cap once daily - PMHx: CAD; COPD; Degenerative disc disease; Depression; GERD; HPV; Hypercholesterolemia; Hypertension; Hypothyroidism; PR; - PSHx: Cholecystectomy; CABG; Breast biopsy- Left; D & C; Tubal ligation; Tonsillectomy; Exploratory lap; - Family history: Not pertinent. - Social history: Smoking status: unknown if patient ever smoked tobacco. No barriers to communication noted, The patient speaks fluent Mohawk. - : The pt / caregiver states he / she is not on anticoagulants. Home medication list is obtained from. - Exposure Risk Screening:: None identified. Vital Signs: 06/29 18:34 BP 136 / 74; Pulse 94; Resp 26; Temp 97.7(TE); Pulse Ox 93% on 4 lpm NC; Weight 83.91 ct3 kg / 184.99 lbs (R); Height 5 ft. 5 in. (165.10 cm) (R); Pain 8/10; 21:34 Pulse 108 MON; Pulse Ox 93% ; af2 21:34 BP 141 / 76 (auto/); af2 21:35 BP 141 / 76; Pulse 108; Resp 25; Temp 97.7; Pulse Ox 96% on 4 lpm NC; Pain 0/10; jlm 21:47 BP 137 / 68 (auto/); af2 21:48 Pulse 100 MON; Pulse Ox 93% ; af2 22:02 BP 126 / 75 (auto/); af2 22:03 Pulse 98 MON; Pulse Ox 93% ; af2 22:17 BP 140 / 73 (auto/); af2 22:18 Pulse 102 MON; Pulse Ox 94% ; af2 22:32 BP 148 / 78 (auto/); af2 22:33 Pulse 102 MON; Resp 18 S; Pulse Ox 97% on 2 lpm NC; af2 18:34 Body Mass Index 30.79 (83.91 kg, 165.10 cm) ct3 MDM: 18:19 -Blood Culture (Adults Only), peripheral from different site, or from device/port/PICC sd1 etc. if present ordered. 18:19 Human Resource Advisor/Pulse Ox/q 15 min VS ordered. sd1 18:19 IV Saline Lock ordered. sd1 18:19 Oxygen at 4L/Min NC or Home dosage ordered. sd1 18:19 Rhythm Strip to chart ordered. sd1 18:19 Call Respiratory ordered. sd1 18:21 Basic Metabolic Profile Ordered. EDMS 18:21 CBC with Diff Ordered. EDMS 18:21 -Arterial Blood Gas Ordered. EDMS 18:21 -Blood Culture Ordered. EDMS 18:21 Chest, 1 View Ordered. EDMS 18:22 ECG WITH READING ER PHYS+CARDIAG ordered. EDMS 18:22 Call Respiratory complete. ar3 18:23 -Blood Culture (Adults Only), peripheral from different site, or from device/port/PICC ar3 etc. if present complete. 18:25 BLOOD CULTURES Ordered. EDMS 19:08 Albuterol-Ipratropium 1 neb Nebulizer every 20 minutes x3 ordered. cs11 19:08 Call Respiratory ordered. cs11 19:08 Dexamethasone 6 mg IV at bolus once ordered. cs11 19:08 -Arterial Blood Gas Reviewed. cs11 19:15 Call Respiratory complete. ml3 19:51 Basic Metabolic Profile Reviewed. cs11 19:51 CBC with Diff Reviewed. cs11 19:59 BED REQUEST+ADM ordered. EDMS 20:00 morphine 2 mg IVP once ordered. cs11 20:12 Financial registration complete. ks16 20:12 [facility] Payment Agreement was scanned into [employer] and attached to record. ks16 20:32 Written Provider Order was scanned into [employer] and attached to record. ml3 20:36 ELECTROCARDIOGRAM ADULT ordered. EDMS 20:43 CARDIAC MARKER PANEL Ordered. EDMS 20:43 RESPIRATORY PANEL Ordered. EDMS 20:43 SPUTUM CULTURE AND GRAM STAIN Ordered. EDMS 20:44 MRSA SCREEN Ordered. EDMS 20:45 ECHOCARD,DOPPLER/COLOR FLOW ordered. EDMS 20:47 C REACTIVE PROTEIN QUANTITATIV Ordered. EDMS 20:47 COMPLETE BLOOD COUNT Ordered. EDMS 20:47 BASIC METABOLIC PROFILE Ordered. EDMS 20:47 MAGNESIUM LEVEL Ordered. EDMS 20:48 Admission / Observation Status ordered. EDMS 20:48 LOW FAT LOW CHOLESTEROL DIET ordered. EDMS 20:51 PHYSICAL THERAPY EVAL & TREAT ordered. EDMS 21:16 THYROID PROFILE Ordered. EDMS 21:25 HEMOGLOBIN A1C Ordered. EDMS Administered Medications: 19:18 Drug: Albuterol-Ipratropium 1 neb [ipratropium-albuterol 0.5 mg-3 mg(2.5 mg base)/3 mL rs5 nebulization soln (1 neb)] Route: Nebulizer; 19:23 Drug: Albuterol-Ipratropium 1 neb [ipratropium-albuterol 0.5 mg-3 mg(2.5 mg base)/3 mL rs5 nebulization soln (1 neb)] Route: Nebulizer; 19:23 Drug: Albuterol-Ipratropium 1 neb [ipratropium-albuterol 0.5 mg-3 mg(2.5 mg base)/3 mL rs5 nebulization soln (1 neb)] Route: Nebulizer; 19:32 Drug: Dexamethasone 6 mg [dexamethasone 4 mg/mL injection solution] Route: IV; Rate: af2 bolus; Site: right forearm; 20:21 Drug: morphine 2 mg [morphine 2 mg/mL intravenous cartridge (1 mL)] Route: IVP; Site: af2 left forearm; Signatures: Dispatcher [employer] EDMS Vidya Villavicencio MD MD sd1 Jana Pompa RN RN Chidi Meredith, Highway Maintainer Unit ml3 Ewa Garcia RN RN jo3 Poonam Caldwell RN RN [id number] Zehra Gannon, FREIGHT BRAKEMAN FREIGHT BRAKEMAN ar3 Cesar Mesa, DO cs11 Francine Barreto RN RN af2 Karen Kelsey, Reg Reg ks16 Bishop Rojo RT rs5 The chart was reviewed and I authenticate all verbal orders and agree with the evaluation and treatment provided.Corrections: (The following items were deleted from the chart) 20:49 20:43 C REACTIVE PROTEIN QUANTITATIV ordered. EDMS EDMS 20:52 20:43 CARDIAC MARKER PANEL ordered. EDMS EDMS Attachments: 20:12 [facility] Payment Agreement ks16 20:32 Written Provider Order ml3 MTDD
[2016-06-29 22:55] VITALS: BP 121/67
[2016-06-29] MEDS: ATORVASTATIN 20 MG TAB PO SCH (23:26)
[2016-06-29] MEDS: DULoxetine 30 MG CAP (CYMBALTA) PO SCH (23:27)
[2016-06-29] MEDS: guaiFENesin ER 600 MG TAB PO SCH (23:27)
[2016-06-29] MEDS: SERTRALINE HCL 50 MG TAB PO SCH (23:27)
[2016-06-29] MEDS: GABAPENTIN 300 MG CAP PO SCH (23:27)
[2016-06-29] MEDS: AZITHROMYCIN INJ 500 MG, VIAL MATE ADAPTER 1 EACH in D5W 250 ML IV SCH (23:28)
[2016-06-29] MEDS: lamoTRIgine 100MG TAB PO SCH (23:28)
[2016-06-29] MEDS: HEPARIN SOD (PORCINE) 5000 UNITS/ML VIAL SC SCH (23:28)
[2016-06-29] MEDS: SENOKOT S TAB PO SCH (23:40)
[2016-06-30] MEDS: HumaLOG INSULIN (NovoLOG) PER UNIT SC SCH ×5 (00:13→21:27)
--- NOTE | 2016-06-30 00:25 | HPE ---
DATE OF ADMISSION: 06/29/2016 PRIMARY CARE PROVIDER: Dr. Margaret Vera, Resident Clinic CHIEF COMPLAINT: Shortness of breath. HISTORY OF PRESENT ILLNESS: This is a 60-year-old female patient with underlying medical history of coronary artery disease, chronic obstructive pulmonary disease (COPD), chronic hypoxic respiratory failure on two liters of oxygen at home, degenerative disc disease, hypertension, hypothyroidism, dyslipidemia, history of silent myocardial infarction (MD), depression, gastroesophageal reflux disease (GERD). Patient was recently discharged from [facility] on 06/19/2016. Patient presented with 2-day history of progressive worsening shortness of breath, worsening coughing productive of yellow phlegm, also reported sweatiness. Patient also reported anxious since this morning with intermittent sweatiness, subjective fever with pleuritic chest discomfort worsened with breathing. Patient had similar episode during the previous admission, and recurrent admission for COPD exacerbation this winter. Denies any sick contact. Lives alone at home. Former smoker, quit smoking in 2016. Denies any palpitations, recent travel, left extremity swelling, orthopnea. ALLERGIES: No known drug allergies. PAST MEDICAL HISTORY: 1. Coronary artery disease. 2. COPD. 3. Degenerative disc disease. 4. Depression. 5. GERD. 6. Dyslipidemia. 7. Hypertension. 8. Hypothyroidism. PAST SURGICAL HISTORY: 1. Cardiac catheterization with no stent. 2. Cholecystectomy. 3. Breast biopsy. 4. Dilatation and curettage (D C). 5. Tubal ligation. 6. Tonsillectomy. 7. Exploratory laparotomy. FAMILY HISTORY: Noncontributory. SOCIAL HISTORY: Patient quit smoking in 2016, one pack per day smoking for 40+ years. No alcohol drinking or illicit drug use. REVIEW OF SYSTEMS: Negative except for those mentioned in the history of present illness (HPI). HOME MEDICATIONS: - albuterol nebulizer every four hours as needed - Ventolin inhaler every four hours as needed - aspirin 81 mg by mouth daily - Lipitor 80 mg by mouth at bedtime - benzonatate 100 mg by mouth three times a day as needed - bisoprolol 2.5 mg by mouth daily - duloxetine 30 mg by mouth at bedtime and 16 mg by mouth every morning - Flonase nasal spray daily - gabapentin 300 mg by mouth three times a day - Lamictal 100 mg by mouth twice a day - Synthroid 50 mcg by mouth daily - lisinopril 2.5 mg by mouth daily - omeprazole 40 mg by mouth daily - Advair inhaler 250/50 mcg inhalation twice a day - Spiriva inhalation 18 mcg daily - Bengay 2.5% gel four times a day as needed PHYSICAL EXAMINATION: VITAL SIGNS: Blood pressure 136/74, pulse 94, respirations 26, temperature 97.7, pulse oximetry 93% on four liters nasal cannula. GENERAL: The patient is alert, and oriented times three, in no acute distress. HEENT: Normocephalic, atraumatic. PULMONARY: Bilateral expiratory wheeze with poor air flow, very tight to auscultation. CARDIAC: Regular rate and rhythm; normal S1, S2. ABDOMEN: Soft, obese, nontender, and nondistended. Positive bowel sounds. EXTREMITIES: No edema bilateral lower extremities. LABORATORY: WBC 10, hemoglobin and hematocrit/ 12.6/37, platelets 347. Chemistry: Sodium 139, potassium 4.3, chloride 96, bicarbonate 36, BUN 14, creatinine 0.64. X-ray shows bilateral pulmonary vascular congestion. No focal consolidations. ASSESSMENT AND PLAN: This is a 60-year-old female patient with underlying medical history of chronic obstructive pulmonary disease (COPD), recurrent hospital admissions for COPD, coronary artery disease, degenerative disc disease, depression, gastroesophageal reflux disease (GERD), dyslipidemia, hypertension, hypothyroidism, history of myocardial infarction, admitted for acute COPD exacerbation. 1. Acute COPD exacerbation with chronic hypoxic respiratory failure. Continue oxygen supplementation. Arterial blood gas (ABG) appreciated. Solu-Medrol IV, Rocephin and Zithromax. Followup sputum cultures, blood cultures, methicillin-resistant Staphylococcus aureus (MRSA), respiratory panel. Continue Advair and Spiriva, Acapella, Mucinex. Monitor for clinical improvement. X-ray is appreciated. 2. Coronary artery disease. Continue aspirin, statin, LESLIE inhibitor, and beta blockers. Followup EKGs, cardiac enzymes. Patient is having pleuritic chest pain likely secondary to underlying COPD and questionable community-acquired bacterial pneumonia. 3. Degenerative disc disease. Continue to monitor. Continue home medications as ordered. 4. GERD. Continue proton pump inhibitor (PPI). 5. Dyslipidemia. Continue statin. 6. Hypertension. Continue blood pressure medications as ordered. 7. Depression. Continue home medication. 8. Hypothyroidism. Followup thyroid panel. Continue Synthroid. 9. Deep vein thrombosis (DVT) prophylaxis. Heparin subcutaneous. DISPOSITION PLANNING: Pending clinical improvement.
[2016-06-30] MEDS: IPRATROPIUM 0.5MG/ALBUTEROL 2.5MG INH SOL UD 3ML (DUONEB)(J7620) NEB SCH ×4 (02:05→20:00)
[2016-06-30] MEDS: cefTRIAXone SOD 2 GM in D5W MINI-BAG PLUS 50 ML IV SCH (02:22)
[2016-06-30 05:01] VITALS: BP 122/70
[2016-06-30 05:16] LABS: MEAN CORPUSCULAR HEMOGLOBIN 31.3 pg (27.0-33.0); MEAN CORPUSCULAR HGB CONC 33.1 g/dl (32.0-36.5); MEAN CORPUSCULAR VOLUME 94.5 fl (80.0-96.0); RED CELL DISTRIBUTION WIDTH 12.9 % (11.5-14.5); WHITE BLOOD COUNT 11.4 K/mm3 (4.0-10.0)
[2016-06-30 05:32] LABS: ANION GAP 9 MEQ/L (8-16); BLOOD UREA NITROGEN 16 MG/DL (7-18); CALCIUM LEVEL 8.7 MG/DL (8.5-10.1); CARBON DIOXIDE LEVEL 33 MEQ/L (21-32); CHLORIDE LEVEL 97 MEQ/L (98-107); CREATININE FOR GFR 0.71 MG/DL (0.55-1.02); GLOMERULAR FILTRATION RATE > 60.0 (>51); GLUCOSE, FASTING 299 MG/DL (70-105); MAGNESIUM LEVEL 1.8 MG/DL (1.8-2.4); POTASSIUM SERUM 4.4 MEQ/L (3.5-5.1); SODIUM LEVEL 139 MEQ/L (136-145); T UPTAKE 38 % (30-39); THYROXINE (T4) 8.9 UG/DL (4.5-12.0)
[2016-06-30] MEDS: LEVOTHYROXINE 0.05 MG TAB (50 MCG) PO SCH (05:52)
[2016-06-30] MEDS: HEPARIN SOD (PORCINE) 5000 UNITS/ML VIAL SC SCH ×3 (05:52→21:21)
--- NOTE | 2016-06-30 06:07 | REP ---
Portable chest x-ray: Sitting AP view. History: Shortness of breath. Findings: The lungs are hyperinflated but free of infiltrate. Pleural angles are sharp. EKG electrodes are seen. Heart is not enlarged. Impression: Hyperinflation consistent with COPD. No acute disease. Signed by Ponce Higgins MD 06/30/2016 02:25 P
--- NOTE | 2016-06-30 07:13 | ECGEPIP ---
Stationary ECG Study [facility] - ED Test Date: 2016-06-29 Pat Name: MIGUEL NAQVI Department: Room: - Gender: F Financial Analyst: ct : 1955 Requested By: Vidya Villavicencio Order Number: [id number] Reading MD: Gamal Neal Measurements Intervals Warren Rate: 96 P: 72 WI: 141 QRS: 74 QRSD: 88 T: 75 QT: 331 QTc: 420 Interpretive Statements SINUS RHYTHM POSSIBLE INC. RBBB PRWP Electronically Signed On 06-30-2016 7:12:55 EST by Gamal Neal
[2016-06-30 07:20] VITALS: BP 156/84
[2016-06-30] MEDS: TIOTROPIUM INHALER/CAPSULE (SPIRIVA) INH SCH (07:33)
[2016-06-30] MEDS: ACETAMINOPHEN TAB 650MG DOSE (2X325MG) PO PRN (08:45)
[2016-06-30] MEDS ORDERED: SLF 3 ML SYR IV PRN (08:45)
[2016-06-30] MEDS: FLUTICASONE PROP 0.05% NASAL SPRAY 16 GM (FLONASE) SCH (08:45)
[2016-06-30] MEDS: methylPREDNISolone INJ 125 MG/2 ML VIAL (J2930) IV SCH ×2 (08:46→21:20)
[2016-06-30] MEDS: lamoTRIgine 100MG TAB PO SCH ×2 (08:46→21:20)
[2016-06-30] MEDS: BISOPROLOL FUMARATE 5 MG TAB PO SCH (08:47)
[2016-06-30] MEDS: DULoxetine 30 MG CAP (CYMBALTA) PO SCH ×2 (08:50→21:20)
[2016-06-30] MEDS: ASPIRIN 81 MG ENTERIC TAB PO SCH (08:50)
[2016-06-30] MEDS: guaiFENesin ER 600 MG TAB PO SCH ×2 (08:50→21:20)
[2016-06-30] MEDS: LISINOPRIL *2.5 MG* TAB PO SCH (08:50)
[2016-06-30] MEDS: GABAPENTIN 300 MG CAP PO SCH ×3 (08:51→21:20)
[2016-06-30] MEDS: PANTOPRAZOLE 40MG TAB (PROTONIX) PO SCH (08:51)
[2016-06-30] MEDS: SENOKOT S TAB PO SCH ×2 (08:51→21:20)
[2016-06-30] MEDS: busPIRone 10 MG TAB PO PRN (10:25)
[2016-06-30] MEDS: ADVAIR DISKUS 250/50 INH PWD INH SCH ×2 (10:57→20:38)
[2016-06-30 12:00] VITALS: BP 127/73
--- NOTE | 2016-06-30 12:54 | IPNPDOC ---
Date Seen The patient was seen on 06/30/16. Progress Note Hospitalist Progress Note Subjective: Very short of breath with any activity; significant pain with cough Objective: Physical Exam: Vitals: Vital Sign - Last 24 Hours 06/29/16 06/30/16 06/30/16 06/30/16 22:55 02:00 04:00 05:01 Temp 96.4 96.7 Pulse 101 102 Resp 20 18 B/P 121/67 122/70 Pulse Ox 93 92 O2 Delivery Nasal Cannula Nasal Cannula Nasal Cannula Nasal Cannula O2 Flow Rate 2.0 2.0 2.0 2.0 06/30/16 06/30/16 06/30/16 07:20 08:47 08:50 Temp 96.8 Pulse 97 97 Resp 20 B/P 156/84 156/84 156/84 Pulse Ox 94 O2 Delivery Room Air General: Awake, alert, no acute distress HEENT: Normocephalic, atraumatic, extraocular movements intact CV: Regular rate and rhythm, no murmurs Lungs: Diminished breath sounds, but no distinct wheeze Abd: soft, nontender, nondistended Extremities: no edema Neuro: alert and oriented 3, normal speech Psych: Very anxious Labs and Imaging: Laboratory Tests 06/29/16 18:59 Calcium Level 9.0, Total Creatine Kinase 51, Red Blood Count 3.95 L, Mean Corpuscular Volume 93.6, Mean Corpuscular Hemoglobin 31.8, Mean Corpuscular Hemoglobin Concent 34.0, Red Cell Distribution Width 12.3, Neutrophils (%) (Auto ) 79.2 H, Lymphocytes (%) (Auto) 14.2 L, Monocytes (%) (Auto) 3.4, Eosinophils ( %) (Auto) 1.4, Basophils (%) (Auto) 0.4, Neutrophils # (Auto) 7.9 H, Lymphocytes # (Auto) 1.4 L, Monocytes # (Auto) 0.3, Eosinophils # (Auto) 0.1, Basophils # (Auto) 0.0 06/30/16 04:45 Calcium Level 8.7, Total Creatine Kinase 39, Red Blood Count 3.76 L, Mean Corpuscular Volume 94.5, Mean Corpuscular Hemoglobin 31.3, Mean Corpuscular Hemoglobin Concent 33.1, Red Cell Distribution Width 12.9 Assessment and Plan: 60-year-old female with CAD, COPD on 2 L home O2, DDD, depression and anxiety, GERD, hyperlipidemia, hypertension, DM2, hypothyroidism who presented with shortness of breath and increased sputum and is admitted with a COPD exacerbation. 1. COPD exacerbation: Continue Solu-Medrol, Rocephin, azithromycin, DuoNeb's, Tessalon Perles, Flonase, Mucinex, Advair, Spiriva. Will add on tramadol for pleuritic chest pain. 2. CAD, hyperlipidemia: Continue home aspirin, statin, beta leela. 3. Depression and anxiety: Continue home Cymbalta, BuSpar, Zoloft, Lamictal. 4. DDD: Continue home Neurontin 5. GERD: Continue home PPI 6. Hypertension: Continue home beta leela and LESLIE inhibitor. 7. Hypothyroidism: Continue home Synthroid. 8. Diabetes mellitus type 2: A1c 7.5. Sliding scale insulin while in-house. Holding home metformin. DVT prophylaxis: Heparin Dispo: pending improvement in respiratory status VS, I&O, 24H, Fishbone VS, I&O, 24H, Fishbone Vital Signs Date Time Temp Pulse Resp B/P Pulse Ox O2 Delivery O2 Flow Rate FiO2 06/30/16 08:50 156/84 06/30/16 08:47 97 06/30/16 07:20 96.8 20 94 Room Air 06/30/16 05:01 2.0 I&O- Last 24 Hours up to 6 AM 06/30/16 06:00 Intake Total 740 ml Output Total 800 ml Balance -60 ml Laboratory Tests 2 06/29/16 18:40: Arterial Blood pH 7.438, Arterial Blood Partial Pressure CO2 44.5, Arterial Blood Partial Pressure O2 76.0, Arterial Blood Total CO2 30.8H, Arterial Blood HCO3 29.4H, Arterial Blood Base Excess 4.6H, Arterial Blood Oxygen Saturation 94.3L, Blood Gas Bicarbonate Standard 28.5H, Oxygen Delivery Device NASAL RHONDA 06/29/16 18:59: Anion Gap 7L, White Blood Count 10.0, Red Blood Count 3.95L, Hemoglobin 12.6, Hematocrit 37.0, Mean Corpuscular Volume 93.6, Mean Corpuscular Hemoglobin 31.8 , Mean Corpuscular Hemoglobin Concent 34.0, Red Cell Distribution Width 12.3, Platelet Count 347, Neutrophils (%) (Auto) 79.2H, Lymphocytes (%) (Auto) 14.2L, Monocytes (%) (Auto) 3.4, Eosinophils (%) (Auto) 1.4, Basophils (%) (Auto) 0.4, Neutrophils # (Auto) 7.9H, Lymphocytes # (Auto) 1.4L, Monocytes # (Auto) 0.3, Eosinophils # (Auto) 0.1, Basophils # (Auto) 0.0, C-Reactive Protein, Quantitative 15.40H, Blood Urea Nitrogen 14, Creatinine 0.64, Sodium Level 139, Potassium Level 4.3, Chloride Level 96L, Carbon Dioxide Level 36H, Calcium Level 9.0, Total Creatine Kinase 51, Creatine Kinase MB 2.4, Creatine Kinase MB Relative Index 4.70H, Glomerular Filtration Rate > 60.0, Large Unclassified Cells # 0.1, Large Unclassified Cells % 1.4, Troponin I < 0.02 06/29/16 23:31: Bedside Glucose (Misc Panel) 298H 06/30/16 04:45: Anion Gap 9, C-Reactive Protein, Quantitative 15.10H, Blood Urea Nitrogen 16, Creatinine 0.71, Sodium Level 139, Potassium Level 4.4, Chloride Level 97L, Carbon Dioxide Level 33H, Calcium Level 8.7, Total Creatine Kinase 39, Creatine Kinase MB 1.9, Creatine Kinase MB Relative Index 4.87H, Glomerular Filtration Rate > 60.0, Troponin I < 0.02, Estimated Mean Plasma Glucose 169H, Free Thyroxine Index 3.4, Hemoglobin A1c 7.5H, Magnesium Level 1.8, Thyroid Stimulating Hormone (TSH) 0.138L, Thyroxine (T4) 8.9, Triiodothyronine (T3) Uptake 38 06/30/16 12:06: Bedside Glucose (Misc Panel) 201H Laboratory Tests 06/29/16 18:59 Calcium Level 9.0, Total Creatine Kinase 51, Red Blood Count 3.95 L, Mean Corpuscular Volume 93.6, Mean Corpuscular Hemoglobin 31.8, Mean Corpuscular Hemoglobin Concent 34.0, Red Cell Distribution Width 12.3, Neutrophils (%) (Auto ) 79.2 H, Lymphocytes (%) (Auto) 14.2 L, Monocytes (%) (Auto) 3.4, Eosinophils ( %) (Auto) 1.4, Basophils (%) (Auto) 0.4, Neutrophils # (Auto) 7.9 H, Lymphocytes # (Auto) 1.4 L, Monocytes # (Auto) 0.3, Eosinophils # (Auto) 0.1, Basophils # (Auto) 0.0 06/30/16 04:45 Calcium Level 8.7, Total Creatine Kinase 39, Red Blood Count 3.76 L, Mean Corpuscular Volume 94.5, Mean Corpuscular Hemoglobin 31.3, Mean Corpuscular Hemoglobin Concent 33.1, Red Cell Distribution Width 12.9 Microbiology 06/29/16 Blood Culture, Received Pending 06/29/16 Blood Culture, Received Pending 06/30/16 MRSA Screen, Received Pending 06/30/16 Respiratory Virus Panel (PCR) ([facility]) - Final, Complete AYSE VALENTINE Jun 30, 2016 12:54
[2016-06-30] MEDS: SLF 3 ML SYR IV SCH ×2 (13:46→21:21)
[2016-06-30] MEDS: traMADol 50 MG TAB PO PRN ×2 (13:48→23:20)
[2016-06-30 16:00] VITALS: BP 143/69
[2016-06-30 20:00] VITALS: BP 138/83
[2016-06-30] MEDS: SERTRALINE HCL 50 MG TAB PO SCH (21:20)
[2016-06-30] MEDS: ATORVASTATIN 20 MG TAB PO SCH (21:20)
[2016-06-30] MEDS: AZITHROMYCIN INJ 500 MG, VIAL MATE ADAPTER 1 EACH in D5W 250 ML IV SCH (23:01)
[2016-07-01] VITALS: BP 128/76
[2016-07-01] MEDS: cefTRIAXone SOD 2 GM in D5W MINI-BAG PLUS 50 ML IV SCH (01:00)
[2016-07-01] MEDS: IPRATROPIUM 0.5MG/ALBUTEROL 2.5MG INH SOL UD 3ML (DUONEB)(J7620) NEB SCH ×4 (02:28→20:27)
[2016-07-01 04:00] VITALS: BP 142/75
[2016-07-01] MEDS: LEVOTHYROXINE 0.05 MG TAB (50 MCG) PO SCH (05:19)
[2016-07-01] MEDS: SLF 3 ML SYR IV SCH ×3 (05:19→21:28)
[2016-07-01] MEDS: HEPARIN SOD (PORCINE) 5000 UNITS/ML VIAL SC SCH ×3 (05:19→21:25)
[2016-07-01 05:40] LABS: MEAN CORPUSCULAR HGB CONC 32.4 g/dl (32.0-36.5); MEAN CORPUSCULAR VOLUME 95.6 fl (80.0-96.0); RED CELL DISTRIBUTION WIDTH 12.4 % (11.5-14.5); WHITE BLOOD COUNT 15.9 K/mm3 (4.0-10.0)
[2016-07-01 05:52] LABS: ANION GAP 7 MEQ/L (8-16); BLOOD UREA NITROGEN 19 MG/DL (7-18); CALCIUM LEVEL 8.5 MG/DL (8.5-10.1); CARBON DIOXIDE LEVEL 31 MEQ/L (21-32); CHLORIDE LEVEL 98 MEQ/L (98-107); CREATININE FOR GFR 0.74 MG/DL (0.55-1.02); GLOMERULAR FILTRATION RATE > 60.0 (>51); GLUCOSE, FASTING 363 MG/DL (70-105); MAGNESIUM LEVEL 1.9 MG/DL (1.8-2.4); POTASSIUM SERUM 4.2 MEQ/L (3.5-5.1); SODIUM LEVEL 136 MEQ/L (136-145)
[2016-07-01] MEDS: ADVAIR DISKUS 250/50 INH PWD INH SCH ×2 (07:06→20:18)
[2016-07-01] MEDS: TIOTROPIUM INHALER/CAPSULE (SPIRIVA) INH SCH (07:06)
[2016-07-01 07:25] VITALS: BP 150/90
[2016-07-01] MEDS: HumaLOG INSULIN (NovoLOG) PER UNIT SC SCH ×4 (08:04→21:24)
[2016-07-01] MEDS ORDERED: LEVO750T33 PO (08:31)
[2016-07-01] MEDS ORDERED: PRED10TA PO (08:34)
[2016-07-01] MEDS: FLUTICASONE PROP 0.05% NASAL SPRAY 16 GM (FLONASE) SCH (09:03)
[2016-07-01] MEDS: methylPREDNISolone INJ 125 MG/2 ML VIAL (J2930) IV SCH ×2 (09:03→21:28)
[2016-07-01] MEDS: DULoxetine 30 MG CAP (CYMBALTA) PO SCH ×2 (09:04→20:59)
[2016-07-01] MEDS: PANTOPRAZOLE 40MG TAB (PROTONIX) PO SCH (09:04)
[2016-07-01] MEDS: LISINOPRIL *2.5 MG* TAB PO SCH (09:05)
[2016-07-01] MEDS: BISOPROLOL FUMARATE 5 MG TAB PO SCH (09:06)
[2016-07-01] MEDS: GABAPENTIN 300 MG CAP PO SCH ×3 (09:06→20:59)
[2016-07-01] MEDS: guaiFENesin ER 600 MG TAB PO SCH ×2 (09:06→20:59)
[2016-07-01] MEDS: ASPIRIN 81 MG ENTERIC TAB PO SCH (09:07)
[2016-07-01] MEDS: SENOKOT S TAB PO SCH ×2 (09:07→20:59)
[2016-07-01] MEDS: lamoTRIgine 100MG TAB PO SCH ×2 (09:07→20:59)
[2016-07-01 12:00] VITALS: BP 149/91
--- NOTE | 2016-07-01 13:06 | IPN ---
DATE: 07/01/2016 Today, the patient tells me that she feels a lot better than she did yesterday, but she does not feel quite ready to go home yet. She gets short of breath when she gets up to walk to the bathroom and wash herself. She denies chest pain, fevers, chills, nausea, vomiting or diarrhea. Objective: Vital Signs: Temperature 96.8, pulse 89, respiratory rate 20, blood pressure 150/90, oxygen saturation 92% on 2 liters nasal cannula. When she gets up and ambulates, she desaturates after approximately 20 to 86% on 2 liters. In general, she is a middle aged female sitting up in bed. She does not appear to be in any acute distress. She speaks in complete sentences. HEENT: Cranial nerves II-XII are grossly intact. No elevation of CVP. Cardiovascular: S1, S2, regular. Respiratory Exam: Actually quite clear to auscultation. There may be some trace end expiratory wheeze. Abdominal Exam: Obese. Extremities: No clubbing, cyanosis or edema. Laboratory Studies: WBC 15.9, hemoglobin 11.1, hematocrit 34.2 and platelet count 381. Chemistry panel: Sodium 136, potassium 4.2, chloride 98, bicarbonate 31, BUN 19, creatinine 0.7. Hemoglobin A1c is 7.5. Microbiology: Methicillin-resistant Staphylococcus aureus (MRSA) screen is negative. Respiratory panel is negative. Blood cultures are negative. Imaging: The patient had a chest x-ray at the time of admission that revealed hyperinflation, but no acute disease. ASSESSMENT AND PLAN: This is a 60-year-old female with decompensated chronic obstructive pulmonary disease (COPD). PROBLEMS: 1. Decompensated COPD. The patient will be continued on Solu-Medrol, Rocephin and azithromycin, as well as, Tessalon Perles and DuoNeb, Flonase, Mucinex, Advair and Spiriva. She has some mild costochondritis as pain. Will attempt some NSAID therapy for this and hold off on further tramadol. The patient appears to be improving quite quickly. She is markedly better than yesterday as per her subjective. She still desaturates with ambulation. I suspect that she may be able to be discharged within the next 24 to 48 hours on prednisone taper and at that point can likely be switched to levofloxacin. 2. Coronary artery disease. The patient is on aspirin, statin and a beta leela. 3. Depression and anxiety. The patient is on BuSpar, Zoloft, Lamictal and Cymbalta. 4. Degenerative disc disease. The patient is on Neurontin. She is on a NSAID at home normally as well. 5. Gastroesophageal reflux disease. The patient is on a proton pump inhibitor (PPI). 6. Hypertension. The patient is on beta leela and LESLIE inhibitor. 7. Hypothyroidism. The patient is on Synthroid. 8. Type 2 diabetes. Finger sticks are slightly more elevated at the present time secondary to steroid use. 9. Deep vein thrombosis (DVT) prophylaxis. The patient is on heparin. DISPOSITION: The patient can likely be discharged within the next 24 to 48 hours pending her improvement.
[2016-07-01] MEDS: IBUPROFEN 200 MG TAB PO SCH ×2 (13:24→21:23)
[2016-07-01 16:15] VITALS: BP 149/63
[2016-07-01] MEDS: SERTRALINE HCL 50 MG TAB PO SCH (20:59)
[2016-07-01] MEDS: ATORVASTATIN 20 MG TAB PO SCH (20:59)
--- NOTE | 2016-07-01 21:26 | ECHO ---
DATE OF PROCEDURE: 06/30/2016 REFERRING PHYSICIAN: Linn Valentin MD INDICATION: Dyspnea. HEIGHT: 165 cm WEIGHT: 84.2 kg MEASUREMENTS: Left atrium: 3.6 cm Ventricular septum: 1.03 cm Posterior wall: 1.03 cm Left ventricle diastole: 4.1 cm Aortic root: 3.1 cm LVOT: 2.2 cm Inferior vena cava: 1.6 cm DOPPLER MEASUREMENTS: Aortic valve velocity: 160 cm/s LVOT velocity: 120 cm/s LVOT VTI: 19.8 cm Mitral E velocity: 68.1 cm/s Mitral A velocity: 94.3 cm/s Mild tricuspid regurgitation. Pulmonary artery systolic pressure of 46 mmHg by pulmonary acceleration time method. MITRAL ANNULAR TISSUE DOPPLER: E prime septal: 8.2 cm/s E prime lateral: 11.0 cm/s DESCRIPTION: Rhythm was sinus tachycardia. Image quality was fair. No pericardial effusion. This is a 2D, M-mode, color flow Doppler and pulse wave Doppler examination that included mitral annular tissue Doppler. CONCLUSIONS: 1. Normal left ventricle internal dimensions and wall thickness. Normal left ventricle (LV) wall motion and wall thickening. Normal LV systolic function. Left ventricular ejection fraction (LVEF) 65% by visual estimate. Normal LV diastolic function. 2. Suggestive of moderate elevation of pulmonary artery systolic pressure (46 mmHg). 3. Otherwise normal appearing echocardiogram Doppler.
[2016-07-01] MEDS: busPIRone 10 MG TAB PO PRN (21:40)
[2016-07-01 22:00] VITALS: BP 134/77
[2016-07-01] MEDS ORDERED: ACETAMINOPHEN 500 MG TAB PO ONE (22:00)
[2016-07-01] MEDS ORDERED: IBUPROFEN 600 MG TAB PO ONE (22:15)
[2016-07-01] MEDS: AZITHROMYCIN INJ 500 MG, VIAL MATE ADAPTER 1 EACH in D5W 250 ML IV SCH (23:40)
--- NOTE | 2016-07-01 23:54 | EDDOCDS ---
Physician Documentation [facility] Name: Constance Zavala Age: 60 yrs Sex: Female : 1955 Arrival Date: 06/29/2016 Time: 18:18 Bed 12 Private MD: Disposition: 06/29/16 19:59 Hospitalization ordered by Linn Valentin for Inpatient Admission. Preliminary diagnosis is Chronic obstructive pulmonary disease with (acute) exacerbation. - [facility] - Status is Inpatient Admission. suha - Condition is Stable. - Problem is chronic. - Symptoms have improved. Historical: - Allergies: No known drug Allergies; - Home Meds: 1. Advair Diskus 250-50 mcg/dose Inhl dsdv 2. albuterol sulfate 2.5 mg /3 mL (0.083 %) Inhl nebu 3 mL 4 times per day 3. aspirin 81 mg Oral tab 1 tab once daily 4. atorvastatin 80 mg oral tab 1 tab once daily 5. bisoprolol fumarate 5 mg oral tab 0.5 tab once daily 6. duloxetine 30 mg Oral cpDR 1 cap once daily 7. duloxetine 60 mg Oral cpDR 1 cap once daily 8. gabapentin 300 mg Oral cap 1 cap 3 times per day 9. bupropion HCl 300 mg Oral Tb24 1 tab twice a day 10. Home O2 2L 11. levothyroxine 50 mcg Oral tab 1 tab once daily 12. lamotrigine 100 mg Oral tr24 bid 13. lisinopril 2.5 mg Oral tab 1 tab once daily 14. unknown abx by hospitalist 15. fluticasone 50 mcg/actuation nasal spsn 1 spray once daily 16. Ventolin HFA 90 mcg/actuation Nebulizer HFAA 1 puff every 4-6 hours 17. Spiriva with HandiHaler 18 mcg Inhl CpDv 1 cap once daily - PMHx: CAD; COPD; Degenerative disc disease; Depression; GERD; HPV; Hypercholesterolemia; Hypertension; Hypothyroidism; [place]; - PSHx: Cholecystectomy; CABG; Breast biopsy- Left; D & C; Tubal ligation; Tonsillectomy; Exploratory lap; - Family history: Not pertinent. - Social history: Smoking status: unknown if patient ever smoked tobacco. No barriers to communication noted, The patient speaks fluent Polish. - : The pt / caregiver states he / she is not on anticoagulants. Home medication list is obtained from. - Exposure Risk Screening:: None identified. Vital Signs: 06/29 18:34 BP 136 / 74; Pulse 94; Resp 26; Temp 97.7(TE); Pulse Ox 93% on 4 lpm NC; Weight 83.91 ct3 kg / 184.99 lbs (R); Height 5 ft. 5 in. (165.10 cm) (R); Pain 8/10; 21:34 Pulse 108 MON; Pulse Ox 93% ; af2 21:34 BP 141 / 76 (auto/); af2 21:35 BP 141 / 76; Pulse 108; Resp 25; Temp 97.7; Pulse Ox 96% on 4 lpm NC; Pain 0/10; jlm 21:47 BP 137 / 68 (auto/); af2 21:48 Pulse 100 MON; Pulse Ox 93% ; af2 22:02 BP 126 / 75 (auto/); af2 22:03 Pulse 98 MON; Pulse Ox 93% ; af2 22:17 BP 140 / 73 (auto/); af2 22:18 Pulse 102 MON; Pulse Ox 94% ; af2 22:32 BP 148 / 78 (auto/); af2 22:33 Pulse 102 MON; Resp 18 S; Pulse Ox 97% on 2 lpm NC; af2 18:34 Body Mass Index 30.79 (83.91 kg, 165.10 cm) ct3 MDM: 18:19 -Blood Culture (Adults Only), peripheral from different site, or from device/port/PICC sd1 etc. if present ordered. 18:19 Reinforcing Steel Worker/Pulse Ox/q 15 min VS ordered. sd1 18:19 IV Saline Lock ordered. sd1 18:19 Oxygen at 4L/Min NC or Home dosage ordered. sd1 18:19 Rhythm Strip to chart ordered. sd1 18:19 Call Respiratory ordered. sd1 18:21 Basic Metabolic Profile Ordered. EDMS 18:21 CBC with Diff Ordered. EDMS 18:21 -Arterial Blood Gas Ordered. EDMS 18:21 -Blood Culture Ordered. EDMS 18:21 Chest, 1 View Ordered. EDMS 18:22 ECG WITH READING ER PHYS+CARDIAG ordered. EDMS 18:22 Call Respiratory complete. ar3 18:23 -Blood Culture (Adults Only), peripheral from different site, or from device/port/PICC ar3 etc. if present complete. 18:25 BLOOD CULTURES Ordered. EDMS 19:08 Albuterol-Ipratropium 1 neb Nebulizer every 20 minutes x3 ordered. cs11 19:08 Call Respiratory ordered. cs11 19:08 Dexamethasone 6 mg IV at bolus once ordered. cs11 19:08 -Arterial Blood Gas Reviewed. cs11 19:15 Call Respiratory complete. ml3 19:51 Basic Metabolic Profile Reviewed. cs11 19:51 CBC with Diff Reviewed. cs11 19:59 BED REQUEST+ADM ordered. EDMS 20:00 morphine 2 mg IVP once ordered. cs11 20:12 Financial registration complete. [email or web address] 20:12 [facility] Payment Agreement was scanned into E-Box - [email or web address] and attached to record. [email or web address] 20:32 Written Provider Order was scanned into [employer]-Box - [email or web address] and attached to record. ml3 20:36 ELECTROCARDIOGRAM ADULT ordered. EDMS 20:43 CARDIAC MARKER PANEL Ordered. EDMS 20:43 RESPIRATORY PANEL Ordered. EDMS 20:43 SPUTUM CULTURE AND GRAM STAIN Ordered. EDMS 20:44 MRSA SCREEN Ordered. EDMS 20:45 ECHOCARD,DOPPLER/COLOR FLOW ordered. EDMS 20:47 C REACTIVE PROTEIN QUANTITATIV Ordered. EDMS 20:47 COMPLETE BLOOD COUNT Ordered. EDMS 20:47 BASIC METABOLIC PROFILE Ordered. EDMS 20:47 MAGNESIUM LEVEL Ordered. EDMS 20:48 Admission / Observation Status ordered. EDMS 20:48 LOW FAT LOW CHOLESTEROL DIET ordered. EDMS 20:51 PHYSICAL THERAPY EVAL & TREAT ordered. EDMS 21:16 THYROID PROFILE Ordered. EDMS 21:25 HEMOGLOBIN A1C Ordered. EDMS 02/06 11:36 T-Sheet-- Draft Copy was scanned into E-Box - [email or web address] and attached to record. gb 11:37 ECG/EKG was scanned into [employer] - [email or web address] and attached to record. gb Administered Medications: 06/29 19:18 Drug: Albuterol-Ipratropium 1 neb [ipratropium-albuterol 0.5 mg-3 mg(2.5 mg base)/3 mL rs5 nebulization soln (1 neb)] Route: Nebulizer; 19:23 Drug: Albuterol-Ipratropium 1 neb [ipratropium-albuterol 0.5 mg-3 mg(2.5 mg base)/3 mL rs5 nebulization soln (1 neb)] Route: Nebulizer; 19:23 Drug: Albuterol-Ipratropium 1 neb [ipratropium-albuterol 0.5 mg-3 mg(2.5 mg base)/3 mL rs5 nebulization soln (1 neb)] Route: Nebulizer; 19:32 Drug: Dexamethasone 6 mg [dexamethasone 4 mg/mL injection solution] Route: IV; Rate: af2 bolus; Site: right forearm; 20:21 Drug: morphine 2 mg [morphine 2 mg/mL intravenous cartridge (1 mL)] Route: IVP; Site: af2 left forearm; Signatures: Dispatcher [employer] EDMS Vidya Villavicencio MD MD sd1 Jana Pompa, RN RN Shelley Castellon, Reg Reg gb MarkieChidi rivas, Lpn Rn Unit ml3 Ewa GarciaRN Poonam Gage RN RN [id number] Zehra Gannon, HORTICULTURE PROFESSOR HORTICULTURE PROFESSOR ar3 Cesar Mesa, DO DO cs11 Francine Barreto RN RN af2 Karen Kelsey, Reg Reg ks16 Bishop Rojo RT rs5 The chart was reviewed and I authenticate all verbal orders and agree with the evaluation and treatment provided.Corrections: (The following items were deleted from the chart) 20:49 20:43 C REACTIVE PROTEIN QUANTITATIV ordered. EDMS EDMS 20:52 20:43 CARDIAC MARKER PANEL ordered. EDMS EDMS Attachments: 20:12 [facility] Payment Agreement [email or web address] 20:32 Written Provider Order ml3 06/30 11:36 T-Sheet-- Draft Copy gb 11:37 ECG/EKG gb Chart Complete MTDD
--- NOTE | 2016-07-01 23:54 | EDDOCDS ---
Physician Documentation [facility] Name: Constance Zavala Age: 60 yrs Sex: Female : 1955 Arrival Date: 06/29/2016 Time: 18:18 Bed 12 Private MD: Disposition: 06/29/16 19:59 Hospitalization ordered by Linn Valentin for Inpatient Admission. Preliminary diagnosis is Chronic obstructive pulmonary disease with (acute) exacerbation. - Bed requested for [facility]. - Status is Inpatient Admission. suha - Condition is Stable. - Problem is chronic. - Symptoms have improved. Historical: - Allergies: No known drug Allergies; - Home Meds: 1. Advair Diskus 250-50 mcg/dose Inhl dsdv 2. albuterol sulfate 2.5 mg /3 mL (0.083 %) Inhl nebu 3 mL 4 times per day 3. aspirin 81 mg Oral tab 1 tab once daily 4. atorvastatin 80 mg oral tab 1 tab once daily 5. bisoprolol fumarate 5 mg oral tab 0.5 tab once daily 6. duloxetine 30 mg Oral cpDR 1 cap once daily 7. duloxetine 60 mg Oral cpDR 1 cap once daily 8. gabapentin 300 mg Oral cap 1 cap 3 times per day 9. bupropion HCl 300 mg Oral Tb24 1 tab twice a day 10. Home O2 2L 11. levothyroxine 50 mcg Oral tab 1 tab once daily 12. lamotrigine 100 mg Oral tr24 bid 13. lisinopril 2.5 mg Oral tab 1 tab once daily 14. unknown abx by hospitalist 15. fluticasone 50 mcg/actuation nasal spsn 1 spray once daily 16. Ventolin HFA 90 mcg/actuation Nebulizer HFAA 1 puff every 4-6 hours 17. Spiriva with HandiHaler 18 mcg Inhl CpDv 1 cap once daily - PMHx: CAD; COPD; Degenerative disc disease; Depression; GERD; HPV; Hypercholesterolemia; Hypertension; Hypothyroidism; RI; - PSHx: Cholecystectomy; CABG; Breast biopsy- Left; D & C; Tubal ligation; Tonsillectomy; Exploratory lap; - Family history: Not pertinent. - Social history: Smoking status: unknown if patient ever smoked tobacco. No barriers to communication noted, The patient speaks fluent Georgian. - : The pt / caregiver states he / she is not on anticoagulants. Home medication list is obtained from. - Exposure Risk Screening:: None identified. Vital Signs: 06/29 18:34 BP 136 / 74; Pulse 94; Resp 26; Temp 97.7(TE); Pulse Ox 93% on 4 lpm NC; Weight 83.91 ct3 kg / 184.99 lbs (R); Height 5 ft. 5 in. (165.10 cm) (R); Pain 8/10; 21:34 Pulse 108 MON; Pulse Ox 93% ; af2 21:34 BP 141 / 76 (auto/); af2 21:35 BP 141 / 76; Pulse 108; Resp 25; Temp 97.7; Pulse Ox 96% on 4 lpm NC; Pain 0/10; jlm 21:47 BP 137 / 68 (auto/); af2 21:48 Pulse 100 MON; Pulse Ox 93% ; af2 22:02 BP 126 / 75 (auto/); af2 22:03 Pulse 98 MON; Pulse Ox 93% ; af2 22:17 BP 140 / 73 (auto/); af2 22:18 Pulse 102 MON; Pulse Ox 94% ; af2 22:32 BP 148 / 78 (auto/); af2 22:33 Pulse 102 MON; Resp 18 S; Pulse Ox 97% on 2 lpm NC; af2 18:34 Body Mass Index 30.79 (83.91 kg, 165.10 cm) ct3 MDM: 18:19 -Blood Culture (Adults Only), peripheral from different site, or from device/port/PICC sd1 etc. if present ordered. 18:19 Permit Agent/Pulse Ox/q 15 min VS ordered. sd1 18:19 IV Saline Lock ordered. sd1 18:19 Oxygen at 4L/Min NC or Home dosage ordered. sd1 18:19 Rhythm Strip to chart ordered. sd1 18:19 Call Respiratory ordered. sd1 18:21 Basic Metabolic Profile Ordered. EDMS 18:21 CBC with Diff Ordered. EDMS 18:21 -Arterial Blood Gas Ordered. EDMS 18:21 -Blood Culture Ordered. EDMS 18:21 Chest, 1 View Ordered. EDMS 18:22 ECG WITH READING ER PHYS+CARDIAG ordered. EDMS 18:22 Call Respiratory complete. ar3 18:23 -Blood Culture (Adults Only), peripheral from different site, or from device/port/PICC ar3 etc. if present complete. 18:25 BLOOD CULTURES Ordered. EDMS 19:08 Albuterol-Ipratropium 1 neb Nebulizer every 20 minutes x3 ordered. cs11 19:08 Call Respiratory ordered. cs11 19:08 Dexamethasone 6 mg IV at bolus once ordered. cs11 19:08 -Arterial Blood Gas Reviewed. cs11 19:15 Call Respiratory complete. ml3 19:51 Basic Metabolic Profile Reviewed. cs11 19:51 CBC with Diff Reviewed. cs11 19:59 BED REQUEST+ADM ordered. EDMS 20:00 morphine 2 mg IVP once ordered. cs11 20:12 Financial registration complete. ks16 20:12 [facility] Payment Agreement was scanned into [employer] and attached to record. ks16 20:32 Written Provider Order was scanned into [employer] and attached to record. ml3 20:36 ELECTROCARDIOGRAM ADULT ordered. EDMS 20:43 CARDIAC MARKER PANEL Ordered. EDMS 20:43 RESPIRATORY PANEL Ordered. EDMS 20:43 SPUTUM CULTURE AND GRAM STAIN Ordered. EDMS 20:44 MRSA SCREEN Ordered. EDMS 20:45 ECHOCARD,DOPPLER/COLOR FLOW ordered. EDMS 20:47 C REACTIVE PROTEIN QUANTITATIV Ordered. EDMS 20:47 COMPLETE BLOOD COUNT Ordered. EDMS 20:47 BASIC METABOLIC PROFILE Ordered. EDMS 20:47 MAGNESIUM LEVEL Ordered. EDMS 20:48 Admission / Observation Status ordered. EDMS 20:48 LOW FAT LOW CHOLESTEROL DIET ordered. EDMS 20:51 PHYSICAL THERAPY EVAL & TREAT ordered. EDMS 21:16 THYROID PROFILE Ordered. EDMS 21:25 HEMOGLOBIN A1C Ordered. EDMS 02/06 11:36 T-Sheet-- Draft Copy was scanned into [employer] and attached to record. gb 11:37 ECG/EKG was scanned into [employer] and attached to record. gb Administered Medications: 06/29 19:18 Drug: Albuterol-Ipratropium 1 neb [ipratropium-albuterol 0.5 mg-3 mg(2.5 mg base)/3 mL rs5 nebulization soln (1 neb)] Route: Nebulizer; 19:23 Drug: Albuterol-Ipratropium 1 neb [ipratropium-albuterol 0.5 mg-3 mg(2.5 mg base)/3 mL rs5 nebulization soln (1 neb)] Route: Nebulizer; 19:23 Drug: Albuterol-Ipratropium 1 neb [ipratropium-albuterol 0.5 mg-3 mg(2.5 mg base)/3 mL rs5 nebulization soln (1 neb)] Route: Nebulizer; 19:32 Drug: Dexamethasone 6 mg [dexamethasone 4 mg/mL injection solution] Route: IV; Rate: af2 bolus; Site: right forearm; 20:21 Drug: morphine 2 mg [morphine 2 mg/mL intravenous cartridge (1 mL)] Route: IVP; Site: af2 left forearm; Signatures: Dispatcher [employer] EDMS Vidya Villavicencio MD MD sd1 Jana Pompa, RN RN Shelley Castellon, Reg Reg gb MarkieChidi rivas, Registered Nurse Nursery Unit ml3 Ewa GarciaRN Poonam Gage RN RN [id number] Zehra Gannon, BIODIESEL PLANT OPERATIONS ENGINEER BIODIESEL PLANT OPERATIONS ENGINEER ar3 Cesar Mesa, DO DO cs11 Francine Barreto RN RN af2 Karen Kelsey, Reg Reg ks16 Bishop Rojo RT rs5 The chart was reviewed and I authenticate all verbal orders and agree with the evaluation and treatment provided.Corrections: (The following items were deleted from the chart) 20:49 20:43 C REACTIVE PROTEIN QUANTITATIV ordered. EDMS EDMS 20:52 20:43 CARDIAC MARKER PANEL ordered. EDMS EDMS Attachments: 20:12 [facility] Payment Agreement [email or web address] 20:32 Written Provider Order ml3 06/30 11:36 T-Sheet-- Draft Copy gb 11:37 ECG/EKG gb Chart Complete MTDD
--- NOTE | 2016-07-01 23:54 | EDDOCDS ---
Nurse's Notes [facility] Name: Constance Zavala Age: 60 yrs Sex: Female : 1955 Arrival Date: 06/29/2016 Time: 18:18 Bed 12 Private MD: Diagnosis: Chronic obstructive pulmonary disease with (acute) exacerbation Presentation: 06/29 18:30 Presenting complaint: EMS states: Difficulty breathing with a history of COPD. Hasa jo3 productive cough with dark sputum. On Home O2 2L 91% at home on arrival. Duoneb and 125mg Solumedrol in 22g in LFA. 98% presently on 2L. Suicide/Homicide risk assessment- the patient denies having any suicidal and/or homicidal ideations and does not present with any other emotional, behavioral or mental health complaints. Status: Patient is not a student services counselor or dependent. Transition of care: patient was not received from another setting of care. 18:30 Acuity: JAYCEE Level 3 jo3 18:30 Method Of Arrival: Ambulance jo3 21:32 Adult Sepsis Screening: The patient does not have new or worsening altered mentation. af2 Patient's respiratory rate is less than 22. Systolic blood pressure is greater than 100. Patient has a qSOFA score of 0- Negative Sepsis Screen. Triage Assessment: 18:35 HIV screening NA for this visit Offered previously. jo3 18:56 General: Appears in no apparent distress, Behavior is appropriate for age, cooperative. jo3 The patient is triaged at the bedside. See Assessment in Nurses Notes section of ED record. Neurological: Level of Consciousness is awake, alert, Oriented to person, place, time. Cardiovascular: No deficits noted. Respiratory: Airway is patent Respiratory effort is unlabored, Breath sounds with crackles bilaterally. Breath sounds with wheezes. Derm: Skin is pink, warm & dry. 21:33 Respiratory: Onset: The symptoms/episode began/occurred at an unknown time. af2 Historical: - Allergies: No known drug Allergies; - Home Meds: 1. Advair Diskus 250-50 mcg/dose Inhl dsdv 2. albuterol sulfate 2.5 mg /3 mL (0.083 %) Inhl nebu 3 mL 4 times per day 3. aspirin 81 mg Oral tab 1 tab once daily 4. atorvastatin 80 mg oral tab 1 tab once daily 5. bisoprolol fumarate 5 mg oral tab 0.5 tab once daily 6. duloxetine 30 mg Oral cpDR 1 cap once daily 7. duloxetine 60 mg Oral cpDR 1 cap once daily 8. gabapentin 300 mg Oral cap 1 cap 3 times per day 9. bupropion HCl 300 mg Oral Tb24 1 tab twice a day 10. Home O2 2L 11. levothyroxine 50 mcg Oral tab 1 tab once daily 12. lamotrigine 100 mg Oral tr24 bid 13. lisinopril 2.5 mg Oral tab 1 tab once daily 14. unknown abx by hospitalist 15. fluticasone 50 mcg/actuation nasal spsn 1 spray once daily 16. Ventolin HFA 90 mcg/actuation Nebulizer HFAA 1 puff every 4-6 hours 17. Spiriva with HandiHaler 18 mcg Inhl CpDv 1 cap once daily - PMHx: CAD; COPD; Degenerative disc disease; Depression; GERD; HPV; Hypercholesterolemia; Hypertension; Hypothyroidism; SC; - PSHx: Cholecystectomy; CABG; Breast biopsy- Left; D & C; Tubal ligation; Tonsillectomy; Exploratory lap; - Family history: Not pertinent. - Social history: Smoking status: unknown if patient ever smoked tobacco. No barriers to communication noted, The patient speaks fluent Dutch. - : The pt / caregiver states he / she is not on anticoagulants. Home medication list is obtained from. - Exposure Risk Screening:: None identified. Screenin:14 Screening information is obtained from the patient. Fall risk: No risks identified. af2 Assistance ADL's: requires no assistance with activities of daily living. Abuse/DV Screen: The patient / caregiver reports he/she is: not in a situation that causes fear, pain or injury. Nutritional screening: No deficits noted. Advance Directives: Currently, there is no health care proxy. home support is adequate. Assessment: 18:56 Reassessment: see triage assessment . jo3 19:00 General: Appears in no apparent distress, comfortable, Behavior is appropriate for age, af2 cooperative, Assumed care of pt at this time. RR even and unlabored. Pt currently receiving neb treatment. . Neurological: Level of Consciousness is awake, alert, obeys commands. Cardiovascular: Rhythm is sinus rhythm No ectopy. Chest pain is denied. Respiratory: Airway is patent Respiratory effort is labored, Breath sounds with wheezes bilaterally. Derm: Skin is normal. 20:00 General: Appears in no apparent distress, comfortable, Behavior is appropriate for age, af2 cooperative, . Cardiovascular: Rhythm is sinus rhythm. Respiratory: Airway is patent Respiratory effort is even, unlabored. Derm: Skin is normal. 21:13 General: Appears in no apparent distress, comfortable, Behavior is appropriate for age, af2 cooperative. Neurological: Level of Consciousness is awake, alert, obeys commands, Oriented to person, place, time. Cardiovascular: Rhythm is sinus rhythm No ectopy. Respiratory: Airway is patent Respiratory effort is even, unlabored. Derm: Skin is normal. 22:15 General: Appears in no apparent distress, comfortable, Behavior is appropriate for age, af2 cooperative. Neurological: Level of Consciousness is awake, alert, obeys commands, Oriented to person, place, time. Cardiovascular: Rhythm is sinus rhythm No ectopy. Respiratory: Airway is patent Respiratory effort is even, unlabored. Derm: Skin is normal. Vital Signs: 18:34 BP 136 / 74; Pulse 94; Resp 26; Temp 97.7(TE); Pulse Ox 93% on 4 lpm NC; Weight 83.91 ct3 kg (R); Height 5 ft. 5 in. (165.10 cm) (R); Pain 8/10; 21:34 Pulse 108 MON; Pulse Ox 93% ; af2 21:34 BP 141 / 76 (auto/); af2 21:35 BP 141 / 76; Pulse 108; Resp 25; Temp 97.7; Pulse Ox 96% on 4 lpm NC; Pain 0/10; jlm 21:47 BP 137 / 68 (auto/); af2 21:48 Pulse 100 MON; Pulse Ox 93% ; af2 22:02 BP 126 / 75 (auto/); af2 22:03 Pulse 98 MON; Pulse Ox 93% ; af2 22:17 BP 140 / 73 (auto/); af2 22:18 Pulse 102 MON; Pulse Ox 94% ; af2 22:32 BP 148 / 78 (auto/); af2 22:33 Pulse 102 MON; Resp 18 S; Pulse Ox 97% on 2 lpm NC; af2 18:34 Body Mass Index 30.79 (83.91 kg, 165.10 cm) ct3 Vitals: 18:34 Log In Time N/A - ambulance arrival. ct3 ED Course: 18:18 Patient visited by Zehra Gannon PCA. ar3 18:18 Patient moved to Waiting ar3 18:19 Patient moved to 12 ar3 18:33 EKG done. (by ED staff). Reviewed by Vidya Villavicencio MD. indira 18:34 Patient visited by Jasmyne Jimenez PCA. indira 18:34 Triage Initiated jo3 18:34 Pt greeted and oriented to ED. Patient advised of names of staff involved in care, indira location of call griffith, wait times and NPO status. Patient has correct armband on for positive identification. Placed in gown. Bed in low position. Call light in reach. Side rails up X2. front desk monitor on. Pulse ox on. NIBP on. 18:35 Patient visited by Viki Bills PCA. ct3 18:55 Cesar Mesa DO is Attending Physician. cs11 18:56 Patient visited by Cesar Mesa DO. cs11 18:56 Patient visited by Ewa Garcia RN. jo3 19:05 Francine Barreto RN is Primary Nurse. af2 19:09 Labs/Blood culture drawn. indira 19:32 Patient visited by Francine Barreto RN. af2 19:59 Linn Valentin is Hospitalizing Provider. cs11 20:12 [facility] Payment Agreement was scanned into [employer] and attached to record. ks16 20:32 Written Provider Order was scanned into [employer] and attached to record. ml3 20:45 Patient visited by Ana Aguirre, Senior Front End Engineer. jlm 20:45 EKG done. (by ED staff). Reviewed by Cesar Mesa DO. jlm 21:14 Maintain field IV. Dressing intact. Good blood return noted. Site clean & dry. Gauge & af2 site: #22G to left forearm.. No procedures done that require assistance. 21:15 Patient visited by Francine Barreto RN. af2 21:32 The patient / caregiver is instructed regarding the plan of care and ED course. af2 21:37 Patient visited by Ana Aguirre, Senior Front End Engineer. jlm 02 11:36 T-Sheet-- Draft Copy was scanned into [employer] and attached to record. gb 11:37 ECG/EKG was scanned into [employer] and attached to record. gb Administered Medications: 02/05 19:18 Drug: Albuterol-Ipratropium 1 neb [ipratropium-albuterol 0.5 mg-3 mg(2.5 mg base)/3 mL rs5 nebulization soln (1 neb)] Route: Nebulizer; 19:23 Drug: Albuterol-Ipratropium 1 neb [ipratropium-albuterol 0.5 mg-3 mg(2.5 mg base)/3 mL rs5 nebulization soln (1 neb)] Route: Nebulizer; 19:23 Drug: Albuterol-Ipratropium 1 neb [ipratropium-albuterol 0.5 mg-3 mg(2.5 mg base)/3 mL rs5 nebulization soln (1 neb)] Route: Nebulizer; 19:32 Drug: Dexamethasone 6 mg [dexamethasone 4 mg/mL injection solution] Route: IV; Rate: af2 bolus; Site: right forearm; 20:21 Drug: morphine 2 mg [morphine 2 mg/mL intravenous cartridge (1 mL)] Route: IVP; Site: af2 left forearm; RT: 19:18 Initial Med Neb Given as ordered Subsequent Med Neb Given as ordered Patient tolerated rs5 procedure well without adverse effect. 19:23 Respiratory: Respiratory effort is even, unlabored, Respiratory pattern is regular rs5 symmetrical, Breath sounds are coarse bilaterally. Breath sounds are diminished Breath sounds with wheezes Reports cough that is productive. Order Results: Lab Order: Basic Metabolic Profile; SPEC'M 06/29/16 18:59 Test: GLUCOSE, FASTING; Value: 149; Range: 70-105; Abnormal: Above high normal; Units: MG/DL; Status: F Test: BLOOD UREA NITROGEN; Value: 14; Range: 7-18; Units: MG/DL; Status: F Test: CREATININE FOR GFR; Value: 0.64; Range: 0.55-1.02; Units: MG/DL; Status: F Test: GLOMERULAR FILTRATION RATE; Value: > 60.0; Range: >51; Status: F Test: SODIUM LEVEL; Value: 139; Range: 136-145; Units: MEQ/L; Status: F Test: POTASSIUM SERUM; Value: 4.3; Range: 3.5-5.1; Units: MEQ/L; Status: F Test: CHLORIDE LEVEL; Value: 96; Range: 98-107; Abnormal: Below low normal; Units: MEQ/L; Status: F Test: CARBON DIOXIDE LEVEL; Value: 36; Range: 21-32; Abnormal: Above high normal; Units: MEQ/L; Status: F Test: ANION GAP; Value: 7; Range: 8-16; Abnormal: Below low normal; Units: MEQ/L; Status: F Test: CALCIUM LEVEL; Value: 9.0; Range: 8.5-10.1; Units: MG/DL; Status: F Test Note: ; Units are mL/min/1.73 m2 Chronic Kidney Disease Staging per NKF: Stage I & II GFR >=60 Normal to Mildly Decreased Stage III GFR 30-59 Moderately Decreased Stage IV GFR 15-29 Severely Decreased Stage V GFR <15 Very Little GFR Left ESRD GFR <15 on FIREPOT OPERATOR AND TENDER Lab Order: CBC with Diff; SPEC'M 06/29/16 18:59 Test: WHITE BLOOD COUNT; Value: 10.0; Range: 4.0-10.0; Units: K/mm3; Status: F Test: RED BLOOD COUNT; Value: 3.95; Range: 4.00-5.40; Abnormal: Below low normal; Units: M/mm3; Status: F Test: HEMOGLOBIN; Value: 12.6; Range: 12.0-16.0; Units: g/dl; Status: F Test: HEMATOCRIT; Value: 37.0; Range: 36.0-47.0; Units: %; Status: F Test: MEAN CORPUSCULAR VOLUME; Value: 93.6; Range: 80.0-96.0; Units: fl; Status: F Test: MEAN CORPUSCULAR HEMOGLOBIN; Value: 31.8; Range: 27.0-33.0; Units: pg; Status: F Test: MEAN CORPUSCULAR HGB CONC; Value: 34.0; Range: 32.0-36.5; Units: g/dl; Status: F Test: RED CELL DISTRIBUTION WIDTH; Value: 12.3; Range: 11.5-14.5; Units: %; Status: F Test: PLATELET COUNT, AUTOMATED; Value: 347; Range: 150-450; Units: k/mm3; Status: F Test: NEUTROPHILS %; Value: 79.2; Range: 36.0-66.0; Abnormal: Above high normal; Units: %; Status: F Test: LYMPH %; Value: 14.2; Range: 24.0-44.0; Abnormal: Below low normal; Units: %; Status: F Test: MONO %; Value: 3.4; Range: 0.0-5.0; Units: %; Status: F Test: EOS %; Value: 1.4; Range: 0.0-3.0; Units: %; Status: F Test: BASO %; Value: 0.4; Range: 0.0-1.0; Units: %; Status: F Test: LARGE UNSTAINED CELL %; Value: 1.4; Range: 0.0-4.0; Units: %; Status: F Test: NEUTROPHILS #; Value: 7.9; Range: 1.8-7.7; Abnormal: Above high normal; Units: K/mm3; Status: F Test: LYMPH #; Value: 1.4; Range: 1.5-4.5; Abnormal: Below low normal; Units: K/mm3; Status: F Test: MONO #; Value: 0.3; Range: 0.0-0.8; Units: K/mm3; Status: F Test: EOS #; Value: 0.1; Range: 0.0-0.50; Units: K/mm3; Status: F Test: BASO #; Value: 0.0; Range: 0.0-0.2; Units: K/mm3; Status: F Test: LARGE UNSTAINED CELL #; Value: 0.1; Range: 0.0-0.4; Units: K/mm3; Status: F Lab Order: -Arterial Blood Gas; SPEC'M 06/29/16 18:40 Test: ABG pH (ARTERIAL); Value: 7.438; Range: 7.350-7.450; Units: UNITS; Status: F Test: ABG PARTIAL PRESSURE CO2; Value: 44.5; Range: 35.0-45.0; Units: mmHg; Status: F Test: ABG PARTIAL PRESSURE O2; Value: 76.0; Range: 75.0-100.0; Units: mmHg; Status: F Test: ABG TOTAL CO2; Value: 30.8; Range: 22.0-29.0; Abnormal: Above high normal; Units: MEQ/L; Status: F Test: ABG HCO3; Value: 29.4; Range: 22.0-26.0; Abnormal: Above high normal; Units: MEQ/L; Status: F Test: ABG BASE EXCESS; Value: 4.6; Range: -2.0-2.0; Abnormal: Above high normal; Status: F Test: ABG STANDARD HCO3; Value: 28.5; Range: 22.0-26.0; Abnormal: Above high normal; Units: MEQ/L; Status: F Test: ABG O2 SATURATION; Value: 94.3; Range: 95.0-99.0; Abnormal: Below low normal; Units: %; Status: F Test: ABG DEVICE; Value: NASAL RHONDA; Status: F Lab Order: CARDIAC MARKER PANEL; [facility] 06/29/16 18:59 Test: CPK CREATINE PHOSPHOKINASE; Value: 51; Range: 26-192; Units: U/L; Status: F Test: CK-MB VALUE MASS; Value: 2.4; Range: 0.0-3.6; Units: NG/ML; Status: F Test: MB/CK RELATIVE INDEX; Value: 4.70; Range: < OR =4; Abnormal: Above high normal; Status: F Test: TROPONIN I; Value: < 0.02; Range: < 0.10; Units: NG/ML; Status: F Test Note: ; DIAGNOSIS CRITERIA MMB ng/ml Relative Index (RI) NON-AMI < or = 5 N/A [place] > 5 < or = 4 AMI > 5 > 4 Lab Order: C REACTIVE PROTEIN QUANTITATIV; SPEC'M 06/29/16 18:59 Test: C REACTIVE PROTEIN QUANTITATIV; Value: 15.40; Range: 0.00-0.30; Abnormal: Above high normal; Units: MG/DL; Status: F Outcome: 19:59 Decision to Hospitalize by Provider. cs11 21:32 Discharge Assessment: patient administered narcotics - yes. Patient was admitted to the [address] or transferred to another facility. 21:33 The following High Risk Discharge criteria are identified: None. Admitted to PCU [facility] accompanied by nurse, accompanied by tech, via stretcher, with oxygen, on monitor, with chart. Condition: stable. No special radiology studies were completed. Property :Personal belongings accompany Pt. 22:54 Patient left the ED. suha Signatures: Jana Pompa, RN RN Shelley Castellon, Reg Reg gb Chidi Aden, Senior Front End Engineer Unit ml3 Ewa Garcia,RN RN jo3 Jagdeep, Zehra, GOSPEL SINGER GOSPEL SINGER ar3 Barbara, Jasmyne, GOSPEL SINGER GOSPEL SINGER indira Bills, Viki, GOSPEL SINGER GOSPEL SINGER ct3 Bishop Rojo,RT RT rs5 Cesar Mesa, DO DO cs11 Ana Aguirre, Senior Front End Engineer Unit jlFrancine Lara RN RN af2 Karen Kelsey, Reg Reg ks16 Chart Complete MTDD
[2016-07-02] MEDS: cefTRIAXone SOD 2 GM in D5W MINI-BAG PLUS 50 ML IV SCH (01:04)
[2016-07-02] MEDS: IPRATROPIUM 0.5MG/ALBUTEROL 2.5MG INH SOL UD 3ML (DUONEB)(J7620) NEB SCH ×2 (01:18→08:00)
[2016-07-02] MEDS: SLF 3 ML SYR IV SCH (05:34)
[2016-07-02] MEDS: LEVOTHYROXINE 0.05 MG TAB (50 MCG) PO SCH (05:34)
[2016-07-02] MEDS: IBUPROFEN 200 MG TAB PO SCH (05:34)
[2016-07-02] MEDS: HEPARIN SOD (PORCINE) 5000 UNITS/ML VIAL SC SCH (05:34)
[2016-07-02 06:00] VITALS: BP 143/81
[2016-07-02 06:08] LABS: MEAN CORPUSCULAR HEMOGLOBIN 31.6 pg (27.0-33.0); MEAN CORPUSCULAR HGB CONC 33.5 g/dl (32.0-36.5); MEAN CORPUSCULAR VOLUME 94.5 fl (80.0-96.0); RED CELL DISTRIBUTION WIDTH 12.5 % (11.5-14.5); WHITE BLOOD COUNT 13.1 K/mm3 (4.0-10.0)
[2016-07-02 06:17] LABS: ANION GAP 7 MEQ/L (8-16); BLOOD UREA NITROGEN 19 MG/DL (7-18); CALCIUM LEVEL 8.7 MG/DL (8.5-10.1); CARBON DIOXIDE LEVEL 32 MEQ/L (21-32); CHLORIDE LEVEL 98 MEQ/L (98-107); CREATININE FOR GFR 0.74 MG/DL (0.55-1.02); GLOMERULAR FILTRATION RATE > 60.0 (>51); GLUCOSE, FASTING 312 MG/DL (70-105); MAGNESIUM LEVEL 1.9 MG/DL (1.8-2.4); POTASSIUM SERUM 4.5 MEQ/L (3.5-5.1); SODIUM LEVEL 137 MEQ/L (136-145)
[2016-07-02] MEDS: methylPREDNISolone INJ 125 MG/2 ML VIAL (J2930) IV SCH (08:23)
[2016-07-02 08:24] VITALS: BP 150/81
[2016-07-02] MEDS: HumaLOG INSULIN (NovoLOG) PER UNIT SC SCH (08:24)
[2016-07-02] MEDS: LISINOPRIL *2.5 MG* TAB PO SCH (08:24)
[2016-07-02] MEDS: SENOKOT S TAB PO SCH (08:25)
[2016-07-02] MEDS: DULoxetine 30 MG CAP (CYMBALTA) PO SCH (08:25)
[2016-07-02] MEDS: ASPIRIN 81 MG ENTERIC TAB PO SCH (08:25)
[2016-07-02] MEDS: GABAPENTIN 300 MG CAP PO SCH (08:25)
[2016-07-02] MEDS: PANTOPRAZOLE 40MG TAB (PROTONIX) PO SCH (08:25)
[2016-07-02] MEDS: BISOPROLOL FUMARATE 5 MG TAB PO SCH (08:25)
[2016-07-02] MEDS: lamoTRIgine 100MG TAB PO SCH (08:25)
[2016-07-02] MEDS: guaiFENesin ER 600 MG TAB PO SCH (08:25)
[2016-07-02] MEDS: FLUTICASONE PROP 0.05% NASAL SPRAY 16 GM (FLONASE) SCH (08:26)
[2016-07-02] MEDS: ADVAIR DISKUS 250/50 INH PWD INH SCH (08:39)
[2016-07-02] MEDS: TIOTROPIUM INHALER/CAPSULE (SPIRIVA) INH SCH (08:39)
--- NOTE | 2016-07-02 09:29 | DSES ---
DATE OF ADMISSION: 06/29/2016 DATE OF DISCHARGE: DISCHARGE DIAGNOSIS: Decompensated chronic obstructive pulmonary disease (COPD). SECONDARY DIAGNOSES: 1. Coronary artery disease. 2. Bipolar disorder. 3. Depression. 4. Anxiety. 5. Degenerative disc disease. 6. Gastroesophageal reflux disease. 7. Hypertension. 8. Hypothyroidism. 9. Type 2 diabetes. HOSPITAL COURSE: The patient is a 60-year-old female who has had several hospitalizations recently for decompensated COPD. She is no longer smoking. She said her baseline is 2 liters of oxygen requirement continuously. She reported increased cough, increased shortness of breath and days prior to her hospitalization she tells me that during her last day she felt as though she was discharged too soon. She was admitted to the progressive care unit and started on intravenous (IV) Solu-Medrol as well as IV antibiotics. The patient's clinical status did quickly improve. She is currently at her baseline oxygen requirement. Subjectively, the patient tells me that she is feeling much better. She denies any chest pain. She denies any change in her shortness of breath. She does not feel quite back to normal yet, but she is approaching there. She denies any fevers, chills, nausea, vomiting or diarrhea. OBJECTIVE: Vital Signs: Temperature 96.8, pulse 79, respiratory rate 18, blood pressure 143/81, oxygen saturation 91% on 2 liters, which is her baseline. In general, she is an obese, female who sits up in bed to greet me as I enter the room. She does not appear to be in any acute distress whatsoever. HEENT: Cranial nerves II-XII are grossly intact. She has moist mucous membranes. No elevation of central venous pressure (CVP). Cardiovascular exam: S1, S2, regular. Respiratory exam: There is no appreciable wheeze. She had diminished breath sounds at the bases. She has a prolonged expiratory phase. She is barrel-chested. Abdominal exam was obese. Extremities: No clubbing, cyanosis or edema. LABORATORY STUDIES: WBC 13.1, hemoglobin 11.5, hematocrit 34.4, platelet count 386. Chemistry panel: Sodium 137, potassium 4.5, chloride 98, bicarbonate 32, BUN 19, creatinine 0.7. Microbiology: Blood cultures have been negative. Respiratory panel was negative. MRSA screen of the nares is negative. IMAGING: The patient had a chest x-ray that revealed no acute disease. ASSESSMENT AND PLAN: This is a 60-year-old female with decompensated chronic obstructive pulmonary disease. PROBLEMS: 1. Decompensated COPD. The patient has been on IV Solu-Medrol, Rocephin and azithromycin. At this time, I will transition her to oral levofloxacin and prednisone taper to be completed over the next 16 days. I will give her a slow taper given her propensity for rebound decompensations. During her stay, she was maintained on Tessalon Perles, DuoNeb, Flonase, Mucinex, Advair, Spiriva. The patient did have some mild costochondritis as pain as well, which did resolve with low dose ibuprofen. The patient is agreeable for discharge at this time and is feeling well enough to go home. 2. Coronary artery disease. The patient is on aspirin, statin and beta-leela. 3. Depression and anxiety. The patient is on BuSpar, Zoloft, Lamictal and Cymbalta. I feel as though her anxiety likely plays a significant role in her dyspnea. 4. Degenerative disc disease. The patient is on Neurontin. She is also normally on a nonsteroidal anti- inflammatory drug (NSAID) as well at home. 5. Gastroesophageal reflux disease. She has been advised not to take this while she is taking the ibuprofen. 6. Hypertension. The patient is on a beta-leela and angiotensin-converting enzyme (LESLIE) inhibitor. 7. Hypothyroidism. The patient is on Synthroid. 8. Type 2 diabetes. Hyperglycemia during her stay secondary to IV steroids. This will likely resolve as we taper her steroids. 9. Deep vein thrombosis (DVT) prophylaxis. The patient is on heparin. DISPOSITION: The patient is being discharged home. She is to followup with her primary care physician in 7 days and followup with Dr. Pacheco of pulmonary as scheduled. Her activity and diet are as prior to admission. She has been advised to return to the emergency room (ER) if her symptoms worsen. Medications at the time of discharge: - levofloxacin 750 mg for 3 days - prednisone 40 mg for 4 days, 30 mg for 4 days, 20 mg for 4 days, 10 mg for 4 days, then stop - Ventolin HFA two puffs every four hours as needed for shortness of breath - albuterol 2.5 mg nebulizer every four hours as needed for shortness of breath - aspirin 81 mg daily - Lipitor 80 mg nightly - benzonatate 100 mg three times a day as needed for cough - bisoprolol 2.5 mg daily - buspirone 10 mg every 6 hours as needed for anxiety - duloxetine 60 mg by daily and 30 mg nightly - Flonase 50 mcg daily - gabapentin 300 mg three times a day - Lamictal 100 mg twice a day - Synthroid 50 mcg daily - lisinopril 2.5 mg daily - [place] 2.5% gel four times a day as needed on the low back and hips - metformin 500 mg twice a day - naproxen 500 mg every 12 hours as needed (take with fluid, avoid taking ibuprofen and this at the same time) - omeprazole 40 mg daily - Advair Diskus 250/50 one puff twice a day - Zoloft 50 mg nightly - Spiriva 18 mcg inhaled daily 30 minutes spent organizing disposition.
[2016-07-02] MEDS: ACETAMINOPHEN TAB 650MG DOSE (2X325MG) PO PRN (10:38)
== END 2016-07-02 12:03 | disposition home or self-care (01) | DRG 191 ==
LOC: M ED 18:18 → M ED INP 20:45 → M PCU 22:52 → M MSPAV 07-01 16:13
PROVIDERS: ADMIT Hospitalist; ATTEND Internal Medicine
DX: J44.1 Chronic obstructive pulmonary disease with (acute) exacerbation (principal); J96.11 Chronic respiratory failure with hypoxia; I25.10 Atherosclerotic heart disease of native coronary artery without angina pectoris; F31.9 Bipolar disorder, unspecified; F41.9 Anxiety disorder, unspecified; K21.9 Gastro-esophageal reflux disease without esophagitis; I10 Essential (primary) hypertension; E03.9 Hypothyroidism, unspecified; E11.649 Type 2 diabetes mellitus with hypoglycemia without coma; Z87.891 Personal history of nicotine dependence; I25.2 Old myocardial infarction; Z79.899 Other long term (current) drug therapy; Z79.82 Long term (current) use of aspirin

== ENCOUNTER → 2016-07-11 | Outpatient (REF) | payer MEDICARE, MEDICAID ==
[~2016-07-11] MED LIST changes: +LEVO750T33 PO; +METF500T PO; +NAPR500T PO; +ZOLO50TA PO
[2016-07-11 15:00] LABS: BASO % 0.4 % (0.0-1.0); EOS % 0.3 % (0.0-3.0); LARGE UNSTAINED CELL # 0.2 K/mm3 (0.0-0.4); LARGE UNSTAINED CELL % 1.2 % (0.0-4.0); LYMPH # 1.8 K/mm3 (1.5-4.5); LYMPH % 12.1 % (24.0-44.0); MEAN CORPUSCULAR HEMOGLOBIN 31.1 pg (27.0-33.0); MEAN CORPUSCULAR HGB CONC 32.4 g/dl (32.0-36.5); MONO # 0.5 K/mm3 (0.0-0.8); MONO % 3.2 % (0.0-5.0); NEUTROPHILS # 12.2 K/mm3 (1.8-7.7); NEUTROPHILS % 82.8 % (36.0-66.0); PLATELET COUNT, AUTOMATED 523 k/mm3 (150-450); RED CELL DISTRIBUTION WIDTH 13.2 % (11.5-14.5); WHITE BLOOD COUNT 14.7 K/mm3 (4.0-10.0)
[2016-07-11 15:12] LABS: ANION GAP 8 MEQ/L (8-16); BLOOD UREA NITROGEN 17 MG/DL (7-18); CALCIUM LEVEL 9.1 MG/DL (8.5-10.1); CARBON DIOXIDE LEVEL 30 MEQ/L (21-32); CHLORIDE LEVEL 96 MEQ/L (98-107); GLOMERULAR FILTRATION RATE > 60.0 (>51); GLUCOSE, FASTING 235 MG/DL (70-105); SODIUM LEVEL 134 MEQ/L (136-145)
== END ==
LOC: M LAB REF 14:35
PROVIDERS: ATTEND Student in an Organized Health Care Education/Training Program
DX: D72.829 Elevated white blood cell count, unspecified (principal); E11.8 Type 2 diabetes mellitus with unspecified complications; Z51.81 Encounter for therapeutic drug level monitoring; Z79.899 Other long term (current) drug therapy; R53.83 Other fatigue

== ENCOUNTER 2016-09-07 13:30 | Emergency (ER) | payer MEDICARE, MEDICAID ==
[~2016-09-07 13:30] MED LIST changes: +GABA-282 PO; -GABA300C3 PO; -SERT-141 PO; +SERT50TA PO
[2016-09-07] MEDS ORDERED: methylPREDNISolone INJ 125 MG/2 ML VIAL (J2930) IV ONE (14:00)
[2016-09-07 14:14] LABS: BASO % 0.7 % (0.0-1.0); EOS % 0.9 % (0.0-3.0); LARGE UNSTAINED CELL # 0.2 K/mm3 (0.0-0.4); LARGE UNSTAINED CELL % 2.8 % (0.0-4.0); LYMPH # 1.1 K/mm3 (1.5-4.5); LYMPH % 16.8 % (24.0-44.0); MEAN CORPUSCULAR HEMOGLOBIN 31.4 pg (27.0-33.0); MEAN CORPUSCULAR HGB CONC 32.8 g/dl (32.0-36.5); MEAN CORPUSCULAR VOLUME 95.7 fl (80.0-96.0); MONO # 0.6 K/mm3 (0.0-0.8); MONO % 9.8 % (0.0-5.0); NEUTROPHILS % 69.1 % (36.0-66.0); PLATELET COUNT, AUTOMATED 287 k/mm3 (150-450); RED CELL DISTRIBUTION WIDTH 13.1 % (11.5-14.5); WHITE BLOOD COUNT 5.8 K/mm3 (4.0-10.0)
[2016-09-07] MEDS: IPRATROPIUM 0.5MG/ALBUTEROL 2.5MG INH SOL UD 3ML (DUONEB)(J7620) NEB PRN ×2 (14:18→14:32)
[2016-09-07 14:22] LABS: ABG BASE EXCESS 4.8 (-2.0-2.0); ABG HCO3 30.7 MEQ/L (22.0-26.0); ABG PARTIAL PRESSURE CO2 50.3 mmHg (35.0-45.0); ABG STANDARD HCO3 28.7 MEQ/L (22.0-26.0); ABG TOTAL CO2 32.2 MEQ/L (22.0-29.0); ABG pH (ARTERIAL) 7.403 UNITS (7.350-7.450)
[2016-09-07 14:23] LABS: ANION GAP 5 MEQ/L (8-16); BLOOD UREA NITROGEN 11 MG/DL (7-18); CALCIUM LEVEL 8.9 MG/DL (8.5-10.1); CARBON DIOXIDE LEVEL 32 MEQ/L (21-32); CHLORIDE LEVEL 99 MEQ/L (98-107); CREATININE FOR GFR 0.45 MG/DL (0.55-1.02); FREE T4 0.77 NG/DL (0.76-1.46); GLOMERULAR FILTRATION RATE > 60.0 (>51); GLUCOSE, FASTING 118 MG/DL (70-105); POTASSIUM SERUM 3.7 MEQ/L (3.5-5.1); SODIUM LEVEL 136 MEQ/L (136-145)
[2016-09-07] MEDS ORDERED: OSELTAMIVIR PHOSPHATE 75 MG CAP (TAMIFLU) PO ONE (15:45)
[2016-09-07] MEDS: IPRATROPIUM 0.5MG/ALBUTEROL 2.5MG INH SOL UD 3ML (DUONEB)(J7620) NEB SCH ×2 (16:05→16:06)
[2016-09-07 17:06] VITALS: O2SAT 89
[2016-09-07] MEDS ORDERED: PRED10TA PO (17:29)
[2016-09-07] MEDS ORDERED: OSEL75CA PO (17:29)
[2016-09-07 17:35] VITALS: BP 127/87
[2016-09-07] MEDS ORDERED: IBUPROFEN 600 MG TAB PO ONE (17:45)
--- NOTE | 2016-09-08 06:42 | REP ---
Cough and dyspnea. COMPARISON: 06/29/2016. The technique utilized in obtaining the radiograph has magnified the cardiac silhouette and accentuated the interstitial markings. Cardiomediastinal silhouette and lung cherry are unchanged. No acute patchy parenchymal opacities or pleural effusions have developed. There is no change in the osseous structures. IMPRESSION: Stable chest without evidence of acute cardiopulmonary disease. Signed by Biju Bhatti DO 09/08/2016 03:40 P
--- NOTE | 2016-09-09 04:44 | ECGEPIP ---
Stationary ECG Study 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 RBBB PRWP SIMILAR TO 06/29/16 Electronically Signed On 09-09-2016 4:43:47 EDT by Gamal Neal
== END 2016-09-07 17:40 | disposition home or self-care (01) ==
LOC: M ED 15:14
DX: J44.1 Chronic obstructive pulmonary disease with (acute) exacerbation (principal); J10.1 Influenza due to other identified influenza virus with other respiratory manifestations; Z87.891 Personal history of nicotine dependence; I10 Essential (primary) hypertension
CPT/HCPCS: 36600; 71010; 80048; 82550; 82553; 82803; 83605; 83880; 84439; 84443; 84484; 85025; 87040; 87804; 93005; 93041; 94640; 94760; 96374; 99285; J2930

== ENCOUNTER 2016-09-30 01:13 | Inpatient (IN) | payer MEDICARE, MEDICAID ==
[2016-09-30] VITALS (12 sets, daily range): BP systolic 106–127; BP diastolic 56–70; O2SAT 91–92
[~2016-09-30] VITALS: Ht 165.1 cm; Wt 95.6 kg
[~2016-09-30 01:13] MED LIST changes: +OSEL75CA PO
[2016-09-30] MEDS ORDERED: methylPREDNISolone INJ 125 MG/2 ML VIAL (J2930) IV ONE (01:30)
[2016-09-30] MEDS ORDERED: IPRATROPIUM 0.5MG/ALBUTEROL 2.5MG INH SOL UD 3ML (DUONEB)(J7620) As Ordered ONE (01:30)
[2016-09-30] MEDS: IPRATROPIUM 0.5MG/ALBUTEROL 2.5MG INH SOL UD 3ML (DUONEB)(J7620) NEB PRN ×3 (01:37→02:45)
[2016-09-30 01:47] LABS: BASO # 0.1 K/mm3 (0.0-0.2); BASO % 0.6 % (0.0-1.0); EOS # 0.2 K/mm3 (0.0-0.50); EOS % 1.3 % (0.0-3.0); LARGE UNSTAINED CELL # 0.1 K/mm3 (0.0-0.4); LARGE UNSTAINED CELL % 0.9 % (0.0-4.0); LYMPH # 2.2 K/mm3 (1.5-4.5); LYMPH % 18.4 % (24.0-44.0); MEAN CORPUSCULAR HEMOGLOBIN 31.1 pg (27.0-33.0); MEAN CORPUSCULAR HGB CONC 32.1 g/dl (32.0-36.5); MEAN CORPUSCULAR VOLUME 96.9 fl (80.0-96.0); MONO # 0.6 K/mm3 (0.0-0.8); MONO % 5.6 % (0.0-5.0); NEUTROPHILS # 8.5 K/mm3 (1.8-7.7); NEUTROPHILS % 73.2 % (36.0-66.0); PLATELET COUNT, AUTOMATED 355 k/mm3 (150-450); RED CELL DISTRIBUTION WIDTH 13.3 % (11.5-14.5); WHITE BLOOD COUNT 11.6 K/mm3 (4.0-10.0)
[2016-09-30 01:59] LABS: ABG BASE EXCESS 7.1 (-2.0-2.0); ABG HCO3 36.7 MEQ/L (22.0-26.0); ABG STANDARD HCO3 30.9 MEQ/L (22.0-26.0); ABG TOTAL CO2 39.1 MEQ/L (22.0-29.0); ABG pH (ARTERIAL) 7.285 UNITS (7.350-7.450)
[2016-09-30 02:02] LABS: ABG PARTIAL PRESSURE CO2 78.9 mmHg (35.0-45.0)
[2016-09-30 02:18] LABS: ANION GAP 3 MEQ/L (8-16); BLOOD UREA NITROGEN 13 MG/DL (7-18); CARBON DIOXIDE LEVEL 37 MEQ/L (21-32); CHLORIDE LEVEL 97 MEQ/L (98-107); CREATININE FOR GFR 0.49 MG/DL (0.55-1.02); GLOMERULAR FILTRATION RATE > 60.0 (>51); GLUCOSE, FASTING 154 MG/DL (70-105); POTASSIUM SERUM 4.4 MEQ/L (3.5-5.1); SODIUM LEVEL 137 MEQ/L (136-145)
[2016-09-30] MEDS ORDERED: LevoFLOXacin IV 750 MG in APPROPRIATE DILUENT 1 EA IV ONE (02:45)
[2016-09-30 03:29] LABS: ABG BASE EXCESS 6.8 (-2.0-2.0); ABG HCO3 36.3 MEQ/L (22.0-26.0); ABG PARTIAL PRESSURE O2 71.6 mmHg (75.0-100.0); ABG STANDARD HCO3 30.5 MEQ/L (22.0-26.0); ABG TOTAL CO2 38.7 MEQ/L (22.0-29.0); ABG pH (ARTERIAL) 7.285 UNITS (7.350-7.450)
[2016-09-30 03:30] LABS: ABG PARTIAL PRESSURE CO2 78.1 mmHg (35.0-45.0)
[2016-09-30] MEDS ORDERED: METF1000 PO (03:32)
[2016-09-30] MEDS ORDERED: NAPR1TAB86 PO (03:32)
[2016-09-30] MEDS ORDERED: GABA800T PO (03:33)
[2016-09-30] MEDS ORDERED: SERT-138 PO (03:33)
[2016-09-30] MEDS: IPRATROPIUM 0.5MG/ALBUTEROL 2.5MG INH SOL UD 3ML (DUONEB)(J7620) NEB SCH ×7 (04:23→23:56)
[2016-09-30] MEDS ORDERED: GLUCOSE 4 GM CHEW TABLET PO PRN (05:00)
[2016-09-30] MEDS ORDERED: DEXTROSE 50% 50 ML SYRINGE IV PRN (05:00)
[2016-09-30] MEDS ORDERED: GLUCAGON FOR INJ 1 MG VIAL (J1610) SC PRN (05:00)
[2016-09-30 05:41] LABS: ABG BASE EXCESS 4.3 (-2.0-2.0); ABG HCO3 32.7 MEQ/L (22.0-26.0); ABG PARTIAL PRESSURE O2 69.1 mmHg (75.0-100.0); ABG STANDARD HCO3 28.2 MEQ/L (22.0-26.0); ABG TOTAL CO2 34.8 MEQ/L (22.0-29.0); ABG pH (ARTERIAL) 7.306 UNITS (7.350-7.450)
[2016-09-30 05:42] LABS: ABG PARTIAL PRESSURE CO2 67.1 mmHg (35.0-45.0)
[2016-09-30] MEDS ORDERED: LevoFLOXacin 500 MG TABLET PO SCH (06:00)
[2016-09-30] MEDS: HumaLOG INSULIN (NovoLOG) PER UNIT SC SCH ×4 (07:30→21:19)
[2016-09-30] MEDS: FORMOTEROL FUMARATE 20 MCG/2 ML INHALATION SOLUTION (PERFOROMIST) INH SCH ×2 (08:00→19:54)
[2016-09-30] MEDS: TIOTROPIUM INHALER/CAPSULE (SPIRIVA) INH SCH (08:00)
[2016-09-30] MEDS: ADVAIR DISKUS 250/50 INH PWD INH SCH ×2 (08:42→19:19)
[2016-09-30] MEDS: BUDESONIDE 0.5 MG/2 ML INHALATION SUSPENSION INH SCH ×2 (08:42→19:54)
[2016-09-30] MEDS ORDERED: CHLORHEXIDINE GLUCONATE 0.12 % 15ML UDC (PERIDEX ORAL RINSE) MT SCH (09:00)
--- NOTE | 2016-09-30 09:18 | HPE ---
DATE OF ADMISSION: 09/30/2016 PRIMARY CARE PROVIDER: [facility]. CHIEF COMPLAINT: Worsening shortness of breath and difficulty breathing for three days. PAST MEDICAL HISTORY: 1. Chronic obstructive pulmonary disease (COPD). 2. Chronic respiratory failure with hypoxia and hypercarbia. 3. Coronary artery disease with history of myocardial infarction in the past. 4. Anxiety and depression. 5. Fibromyalgia. 6. Degenerative disc disease. 7. Chronic musculoskeletal pain and muscle spasms. 8. Gastroesophageal reflux disease (GERD). 9. Hypertension. 10. Hypothyroidism. 11. History of major depressive disorder without any psychotic features. 12. Adrenal nodule on the right. 13. Diabetes. 14. Sleep apnea. 15. Hiatal hernia. 16. Migraine. 17. Overactive bladder. 18. Scoliosis. HISTORY OF PRESENT ILLNESS: This is a 60-year-old female with multiple medical comorbidities who presented to the hospital with three day history of worsening shortness of breath and difficulty breathing. The patient had cough, cold and congestion prior to worsening of her shortness of breath. She was using her oxygen and nebulizers as directed without any improvement. She came to the emergency room. In the emergency department, the patient was found to have COPD exacerbation with decreased breath sounds and extremely tight chest on physical examination, but blood test was significant for a blood gas of pH 7.3, PCO2 of 78.9, PO2 of 128. The patient was given multiple nebulizer treatments and started on bilevel positive airway pressure (BIPAP). The patient was also given a dose of levofloxacin. Chest x-ray was performed, which did not show any acute cardiopulmonary process. The patient's other blood work was significant for WBC of 11.6. The patient was subsequently placed for admission under the hospitalist service for COPD exacerbation and acute on chronic hypoxic and hypercarbic respiratory failure. PAST SURGICAL HISTORY: Cardiac catheterization but no stenting. 2. Cholecystectomy. 3. Breast biopsy. 4. Dilatation and curettage. 5. Tubal ligation. 6. Tonsillectomy. 7. Exploratory laparotomy. FAMILY HISTORY: Noncontributory. SOCIAL HISTORY: The patient used to smoke one pack per day for 40+ years, quit smoking in 2016. No alcohol abuse or illicit drug abuse. HOME MEDICATIONS: - albuterol sulfate two puff inhalation every 4 hours as needed - albuterol nebulizer every 4 hours as needed - aspirin 81 mg daily - atorvastatin 80 mg at bedtime - bisoprolol 2.5 mg by mouth daily - Cymbalta 60 mg by mouth daily and 30 mg at bedtime - Flonase one spray in both nostrils daily - gabapentin 800 mg by mouth three times a day - Lamotrigine 100 mg by mouth twice a day - Synthroid 50 mcg by mouth daily - Lisinopril 2.5 mg by mouth daily - vanishing cream - metformin 1000 mg by mouth twice a day - naproxen 500 mg by mouth twice a day - omeprazole 40 mg by mouth daily - Advair Diskus 250/50 one puff inhalation twice a day - sertraline 100 mg by mouth at bedtime - Spiriva one inhalation daily REVIEW OF SYSTEMS: All 10-point review of systems was negative except what was mentioned in history of present illness. PHYSICAL EXAMINATION: VITAL SIGNS: Temperature 98.2, pulse 88, respiratory rate 36, blood pressure 122/72, pulse oximetry 94% with 35% FiO2. GENERAL: The patient is awake but sleepy. Responding to questions, but easily falling asleep. HEENT: Normocephalic, atraumatic. Moist mucous membranes. Anicteric eyes. CHEST: Bilateral decreased breath sounds and some wheezing present. CARDIOVASCULAR: S1, S2 regular. No rub, murmur, or gallop. ABDOMEN: Soft, nontender. Bowel sounds present. EXTREMITIES: No edema. LABORATORY DATA: WBC 11.6, hemoglobin 13.3, platelets 355. Sodium 137, potassium 4.4, chloride 97, bicarbonate 37, BUN 13, creatinine 0.4, glucose 154, calcium 8.0, CK 158, troponin negative, BNP 23.9, TSH 0.788. Radiology: Chest x-ray was reviewed. ASSESSMENT AND PLAN: This is a 60-year-old female admitted for chronic obstructive pulmonary disease (COPD) exacerbation and acute on chronic hypercarbic and hypoxic respiratory failure. PLAN: 1. For COPD exacerbation, we will continue the patient on albuterol, ipratropium nebulizers. We will continue with budesonide and formoterol and Spiriva. We will give IV steroids. We will continue with levofloxacin. 2. Acute on chronic hypoxic respiratory failure. We will continue with bilevel positive airway pressure (BIPAP) treatment. 3. Diabetes. We will place the patient on sliding scale insulin. 4. Hypertension. We will continue with Lisinopril and bisoprolol. 5. Hyperlipidemia. We will continue with atorvastatin. 6. Nonobstructive coronary artery disease. We will continue with aspirin, beta leela, statin, Lisinopril. 7. Chronic pain and neuropathy. We will continue with Cymbalta and gabapentin. 8. Gastroesophageal reflux disease (GERD). We will continue with omeprazole. 9. History of anxiety and depression with episode of major depression. We will continue sertraline. 10. Hypothyroidism. We will continue Synthroid. 11. Deep vein thrombosis (DVT) prophylaxis has been ordered. 12. Gastrointestinal prophylaxis has been ordered.
--- NOTE | 2016-09-30 10:01 | REP ---
SINGLE VIEW CHEST: Single view of the chest is performed and compared to prior studies, most recent of which is 09/07/2016. There is bibasilar interstitial fibrosis which is stable. No definite superimposed acute infiltrate is seen. The heart is normal in size and the mediastinal silhouette is unchanged. IMPRESSION: Stable chronic findings without evidence of acute infiltrate. Signed by Brigido Barcenas MD 09/30/2016 04:06 P
[2016-09-30] MEDS: lamoTRIgine 100MG TAB PO SCH ×2 (10:52→21:18)
[2016-09-30] MEDS: GABAPENTIN 400 MG CAP PO SCH ×3 (10:52→21:18)
[2016-09-30] MEDS: ASPIRIN 81 MG ENTERIC TAB PO SCH (10:52)
[2016-09-30] MEDS: DULoxetine 30 MG CAP (CYMBALTA) PO SCH ×2 (10:52→21:19)
[2016-09-30] MEDS: OMEPRAZOLE 20 MG CAP PO SCH (10:53)
[2016-09-30] MEDS: LISINOPRIL *2.5 MG* TAB PO SCH (10:53)
[2016-09-30] MEDS: LEVOTHYROXINE 0.05 MG TAB (50 MCG) PO SCH (10:53)
[2016-09-30] MEDS: BISOPROLOL FUMARATE 5 MG TAB PO SCH (10:54)
[2016-09-30] MEDS: ENOXAPARIN 40 MG/0.4 ML SYRINGE (J1650) SC SCH (10:54)
[2016-09-30] MEDS: methylPREDNISolone INJ 125 MG/2 ML VIAL (J2930) IV SCH ×2 (10:55→17:01)
[2016-09-30] MEDS: FLUTICASONE PROP 0.05% NASAL SPRAY 16 GM (FLONASE) SCH (10:55)
[2016-09-30 11:40] LABS: ABG BASE EXCESS 7.3 (-2.0-2.0); ABG HCO3 34.4 MEQ/L (22.0-26.0); ABG PARTIAL PRESSURE O2 61.9 mmHg (75.0-100.0); ABG TOTAL CO2 36.3 MEQ/L (22.0-29.0); ABG pH (ARTERIAL) 7.375 UNITS (7.350-7.450)
[2016-09-30 11:41] LABS: ABG PARTIAL PRESSURE CO2 60.2 mmHg (35.0-45.0)
--- NOTE | 2016-09-30 15:08 | ECGEPIP ---
Stationary ECG Study [facility] - ED Test Date: 2016-09-30 Pat Name: MIGUEL NAQVI Department: Room: [place] [address] Gender: F Youth Counselor: RuffB: 1955 Requested By: MAYELA Culp Order Number: [id number] Reading MD: Vidya Villavicencio Measurements Intervals [place] Rate: 87 P: 58 AR: 151 QRS: 52 QRSD: 105 T: 58 QT: 364 QTc: 439 Interpretive Statements SINUS RHYTHM LOW QRS VOLTAGE IN EXTREMITY LEADS POSSIBLE ANTERIOR MYOCARDIAL INFARCTION, OF INDETERMINATE AGE SIMILAR 09/07/16 Electronically Signed On 09-30-2016 15:07:57 EDT by Vidya Villavicencio
--- NOTE | 2016-09-30 16:09 | IPN ---
DATE: 09/30/2016 Patient admitted overnight for hypercarbic respiratory failure secondary for acute chronic obstructive pulmonary disease (COPD) exacerbation. This morning, patient reported breathing better. Subsequently, bilevel positive airway pressure (BiPAP) was taken out. Patient was placed on 2 liter nasal cannula with a saturation of 88-90%. Patient denies any chest pain, pressure, discomfort. Denies any fevers or chills. Is tolerating orals. VITAL SIGNS: Temperature 97.1, pulse 88, respirations 22, blood pressure 113/70, pulse oximetry 90% on 2 liters nasal cannula. LABORATORY: WBC 11.6, hemoglobin and hematocrit (H H) 13.3/41.3, platelets 355. Chemistry: Sodium 137, potassium 4.4, chloride 97, bicarbonate 37, BUN 13, creatinine 0.49. Cardiac enzymes negative times two. PHYSICAL EXAMINATION: GENERAL: Patient alert and oriented times three. In no acute distress. HEENT: Normocephalic, atraumatic. Moist mucous membranes. PULMONARY: Decreased breath sounds bilateral with fine expiratory wheeze. CARDIAC: Regular rate and rhythm. Normal S1, S2. No rubs, murmurs or gallops. ABDOMEN: Soft, nontender. Positive bowel sounds. EXTREMITIES: No edema bilateral lower extremities. ASSESSMENT AND PLAN: This is a 60-year-old female patient with underlying medical history of chronic obstructive pulmonary disease (COPD) on 2 liters oxygen at home, history of hypoxic hypercarbic respiratory failure, coronary artery disease with myocardial infarction (MS), anxiety, depression, fibromyalgia, degenerative disc disease, chronic musculoskeletal pain and muscle spasm, gastroesophageal reflux disease (GERD), hypertension, hypothyroidism, history of major depressive disorder with psychotic features, adrenal nodules on the right, diabetes, sleep apnea, hiatal hernia, migraine, overactive bladder, scoliosis, admitted for acute chronic obstructive pulmonary disease (COPD) exacerbation with acute on chronic hypercarbic hypoxic respiratory failure. PROBLEMS: 1. Acute on chronic hypoxic hypercarbic respiratory failure secondary to acute chronic obstructive pulmonary disease (COPD) exacerbation. Patient currently weaned off the bilevel positive airway pressure (BiPAP), on 2 liters nasal cannula. Follow up arterial blood gas (ABG) appreciated. Continue treatment. Follow up respiratory panel. Blood cultures, sputum cultures. Empirically started on Levaquin. Solu-Medrol for antibiotic nebulizer treatments. Spiriva, Advair. Oxygen supplementation. Patient may benefit from Trilogy noninvasive ventilatory due to chronic respiratory failure secondary to COPD. BiPAP has been considered, but does not offer the best mode of ventilation. Trilogy offers average volume assured pressure support (AVAPS-AE) mode, which will target patient's tidal volume based on the patient's ideal body weight. This mode allows the patient to exhale down to baseline, whereas BiPAP does not and often times causes pre-staph breath stacking and air trapping. Trilogy will help reduce patient's CO2 level and rest respiratory muscles, and provide external/internal battery, allow for operation in the event of loss of power. I believe that Trilogy might improve patient's quality of life and reduce hospitalization in the future. Will consider a trial of outpatient trilogy upon ready for discharge. Follow up respiratory panel and cultures. C-reactive protein appreciated. 2. Acute chronic obstructive pulmonary disease (COPD) exacerbation. Refer to above. 3. Diabetes. Insulin per protocol. Follow up fingersticks. Adjust as needed. 4. Hypertension. Continue home medication, lisinopril, bisoprolol. 5. Dyslipidemia. Continue statin. 6. Coronary artery disease. Aspirin, beta leela, statin, lisinopril. 7. Chronic pain and neuropathy. Continue home medications. 8. Gastroesophageal reflux disease (GERD). Continue proton pump inhibitor (PPI). 9. History of anxiety/depression. Continue home medication. 10. Hypothyroidism. Continue Synthroid. 11. Deep venous thrombosis (DVT) prophylaxis. Lovenox subcutaneously. DISPOSITION: Pending clinical improvement. Will order physical therapy once patient is clinically improved.
[2016-09-30] MEDS ORDERED: SLF 3 ML SYR IV PRN (16:45)
[2016-09-30] MEDS: ATORVASTATIN 20 MG TAB PO SCH (21:19)
[2016-09-30] MEDS: SERTRALINE 100 MG TAB PO SCH (21:19)
[2016-09-30] MEDS: SLF 3 ML SYR IV SCH (21:21)
[2016-10-01] VITALS (10 sets, daily range): BP systolic 116–138; BP diastolic 55–75; O2SAT 92–93
[2016-10-01] MEDS: methylPREDNISolone INJ 125 MG/2 ML VIAL (J2930) IV SCH ×4 (02:10→23:14)
[2016-10-01] MEDS: IPRATROPIUM 0.5MG/ALBUTEROL 2.5MG INH SOL UD 3ML (DUONEB)(J7620) NEB SCH ×6 (04:41→22:52)
[2016-10-01 05:03] LABS: BASO % 0.1 % (0.0-1.0); EOS % 0.5 % (0.0-3.0); LARGE UNSTAINED CELL % 0.3 % (0.0-4.0); LYMPH # 0.6 K/mm3 (1.5-4.5); LYMPH % 6.1 % (24.0-44.0); MEAN CORPUSCULAR HEMOGLOBIN 30.9 pg (27.0-33.0); MEAN CORPUSCULAR HGB CONC 32.1 g/dl (32.0-36.5); MEAN CORPUSCULAR VOLUME 96.1 fl (80.0-96.0); MONO # 0.4 K/mm3 (0.0-0.8); MONO % 3.5 % (0.0-5.0); NEUTROPHILS # 9.1 K/mm3 (1.8-7.7); NEUTROPHILS % 89.6 % (36.0-66.0); PLATELET COUNT, AUTOMATED 366 k/mm3 (150-450); RED CELL DISTRIBUTION WIDTH 13.5 % (11.5-14.5); WHITE BLOOD COUNT 10.2 K/mm3 (4.0-10.0)
[2016-10-01 05:27] LABS: ANION GAP 5 MEQ/L (8-16); BLOOD UREA NITROGEN 15 MG/DL (7-18); CALCIUM LEVEL 8.5 MG/DL (8.5-10.1); CARBON DIOXIDE LEVEL 35 MEQ/L (21-32); CHLORIDE LEVEL 100 MEQ/L (98-107); GLOMERULAR FILTRATION RATE > 60.0 (>51); GLUCOSE, FASTING 191 MG/DL (70-105); SODIUM LEVEL 140 MEQ/L (136-145)
[2016-10-01] MEDS: LevoFLOXacin 500 MG TABLET PO SCH (06:31)
[2016-10-01] MEDS: SLF 3 ML SYR IV SCH ×3 (06:31→21:08)
[2016-10-01] MEDS: FORMOTEROL FUMARATE 20 MCG/2 ML INHALATION SOLUTION (PERFOROMIST) INH SCH ×2 (07:38→19:49)
[2016-10-01] MEDS: BUDESONIDE 0.5 MG/2 ML INHALATION SUSPENSION INH SCH ×2 (07:38→19:49)
[2016-10-01] MEDS: TIOTROPIUM INHALER/CAPSULE (SPIRIVA) INH SCH (08:00)
[2016-10-01] MEDS: HumaLOG INSULIN (NovoLOG) PER UNIT SC SCH ×4 (08:36→21:00)
[2016-10-01] MEDS: ASPIRIN 81 MG ENTERIC TAB PO SCH (08:37)
[2016-10-01] MEDS: GABAPENTIN 400 MG CAP PO SCH ×3 (08:37→21:07)
[2016-10-01] MEDS: lamoTRIgine 100MG TAB PO SCH ×2 (08:37→21:06)
[2016-10-01] MEDS: DULoxetine 30 MG CAP (CYMBALTA) PO SCH ×2 (08:37→21:06)
[2016-10-01] MEDS: OMEPRAZOLE 20 MG CAP PO SCH (08:37)
[2016-10-01] MEDS: BISOPROLOL FUMARATE 5 MG TAB PO SCH (08:38)
[2016-10-01] MEDS: LISINOPRIL *2.5 MG* TAB PO SCH ×2 (08:38→09:00)
[2016-10-01] MEDS: LEVOTHYROXINE 0.05 MG TAB (50 MCG) PO SCH (08:38)
[2016-10-01] MEDS: ENOXAPARIN 40 MG/0.4 ML SYRINGE (J1650) SC SCH (08:39)
[2016-10-01] MEDS: ADVAIR DISKUS 250/50 INH PWD INH SCH ×2 (09:00→22:55)
[2016-10-01] MEDS: FLUTICASONE PROP 0.05% NASAL SPRAY 16 GM (FLONASE) SCH (09:00)
[2016-10-01] MEDS: guaiFENesin ER 600 MG TAB PO SCH ×2 (12:02→21:06)
[2016-10-01] MEDS: LIDOCAINE 5% OINT 30 GM TOP SCH (15:21)
[2016-10-01] MEDS: NAPROXEN 250 MG TAB PO PRN (15:21)
[2016-10-01] MEDS: ATORVASTATIN 20 MG TAB PO SCH (21:05)
[2016-10-01] MEDS: SERTRALINE 100 MG TAB PO SCH (21:06)
--- NOTE | 2016-10-02 00:37 | IPN ---
DATE: 10/01/2016 Patient seen and examined. No acute events overnight. Denies any chest pain, pressure, or discomfort. Does report back pain that is chronic. Reported wheezing and cough that has virtually unchanged but currently is off bilevel positive airway pressure (BiPAP) and comfortable. VITAL SIGNS: Temperature 97.5, pulse 80, respirations 20, blood pressure 116/59, pulse oximetry 90% on 2 liters nasal cannula. LABORATORY DATA: WBC 10.2, hemoglobin and hematocrit 12.9/40.2, platelets 366. Chemistry: Sodium 140, potassium 4, chloride 100, bicarbonate 35, BUN 15, creatinine 0.5. Respiratory panel has been negative. PHYSICAL EXAMINATION: Patient alert and oriented times three in no acute distress. HEENT: Normocephalic, atraumatic. Moist mucous membranes. PULMONARY: Decreased breath sounds bilateral with fine expiratory wheeze. CARDIAC: Regular rate and rhythm. Normal S1, S2. No rubs, murmurs, or gallops. ABDOMEN: Soft, nontender. Positive bowel sounds. EXTREMITIES: No edema, bilateral lower extremities. ASSESSMENT AND PLAN: This is a 60-year-old female patient with underlying medical history of chronic obstructive pulmonary disease (COPD), on 2 liters oxygen at home, history of hypoxic hypercarbic respiratory failure, coronary artery disease with mild cardiac infarction, anxiety and depression, fibromyalgia, degenerative disc disease, chronic musculoskeletal pain and muscle spasm, gastroesophageal reflux disease (GERD), hypertension, hypothyroidism, history of major depressive disorder with psychotic features, adrenal nodules on the right, diabetes mellitus, sleep apnea, hiatal hernia, migraine, overactive bladder, scoliosis, admitted for acute COPD exacerbation with acute on chronic hypoxic hypercarbic respiratory failure. 1. Acute on chronic hypoxic hypercarbic respiratory failure secondary to acute COPD exacerbation. Patient currently weaned off BiPAP. Continue nasal cannula at 2 liters. Arterial blood gas (ABG) appreciated. Respiratory panel has been negative. Followup blood culture. Followup sputum culture. Patient treated with Levaquin, Solu-Medrol, nebulizer treatment, Spiriva, Advair, oxygen supplementation. Patient might be a good candidate for Trilogy noninvasive ventilation, which might help prevent readmissions. Followup C-reactive proteins. 2. Acute COPD exacerbation. Refer to above. 3. Diabetes mellitus. Insulin per protocol. Followup fingersticks. 4. Hypertension. Continue home medication, lisinopril, bisoprolol. 5. Dyslipidemia. Continue statin. 6. Coronary artery disease. Continue aspirin, beta leela, statin, lisinopril. 7. Chronic pain and neuropathy. Naproxen as needed. Continue other home medications. Pain management consulted. Lidocaine ointment. 8. GERD. Continue proton pump inhibitor (PPI). 9. History of anxiety and depression. Continue home medications. 10. Hypothyroidism. Continue Synthroid. 11. Deep vein thrombosis (DVT) prophylaxis. Lovenox subcutaneous. DISPOSITION PLANNING: Pending clinical improvement. Will order physical therapy.
[2016-10-02 01:39] VITALS: O2SAT 91
[2016-10-02] MEDS: IPRATROPIUM 0.5MG/ALBUTEROL 2.5MG INH SOL UD 3ML (DUONEB)(J7620) NEB SCH ×6 (03:23→23:25)
[2016-10-02 06:00] VITALS: BP 148/78
[2016-10-02] MEDS ORDERED: methylPREDNISolone INJ 125 MG/2 ML VIAL (J2930) IV SCH (06:00)
[2016-10-02] MEDS: LEVOTHYROXINE 0.05 MG TAB (50 MCG) PO SCH (06:07)
[2016-10-02] MEDS: SLF 3 ML SYR IV SCH ×3 (06:07→20:03)
[2016-10-02] MEDS: LevoFLOXacin 500 MG TABLET PO SCH (06:07)
[2016-10-02 07:03] LABS: EOS % 0.1 % (0.0-3.0); LARGE UNSTAINED CELL # 0.1 K/mm3 (0.0-0.4); LARGE UNSTAINED CELL % 0.8 % (0.0-4.0); LYMPH # 1.1 K/mm3 (1.5-4.5); LYMPH % 7.2 % (24.0-44.0); MEAN CORPUSCULAR HEMOGLOBIN 31.4 pg (27.0-33.0); MEAN CORPUSCULAR HGB CONC 32.1 g/dl (32.0-36.5); MEAN CORPUSCULAR VOLUME 97.9 fl (80.0-96.0); MONO # 0.8 K/mm3 (0.0-0.8); MONO % 5.6 % (0.0-5.0); NEUTROPHILS # 11.6 K/mm3 (1.8-7.7); NEUTROPHILS % 86.4 % (36.0-66.0); PLATELET COUNT, AUTOMATED 370 k/mm3 (150-450); RED CELL DISTRIBUTION WIDTH 13.3 % (11.5-14.5); WHITE BLOOD COUNT 13.5 K/mm3 (4.0-10.0)
[2016-10-02 07:19] LABS: ANION GAP 4 MEQ/L (8-16); BLOOD UREA NITROGEN 17 MG/DL (7-18); CALCIUM LEVEL 8.3 MG/DL (8.5-10.1); CARBON DIOXIDE LEVEL 36 MEQ/L (21-32); CHLORIDE LEVEL 101 MEQ/L (98-107); CREATININE FOR GFR 0.61 MG/DL (0.55-1.02); GLOMERULAR FILTRATION RATE > 60.0 (>51); GLUCOSE, FASTING 186 MG/DL (70-105); POTASSIUM SERUM 4.2 MEQ/L (3.5-5.1); SODIUM LEVEL 141 MEQ/L (136-145)
[2016-10-02] MEDS: FORMOTEROL FUMARATE 20 MCG/2 ML INHALATION SOLUTION (PERFOROMIST) INH SCH ×2 (08:47→19:46)
[2016-10-02] MEDS: BUDESONIDE 0.5 MG/2 ML INHALATION SUSPENSION INH SCH ×2 (08:47→19:46)
[2016-10-02] MEDS: TIOTROPIUM INHALER/CAPSULE (SPIRIVA) INH SCH (08:48)
[2016-10-02] MEDS: FLUTICASONE PROP 0.05% NASAL SPRAY 16 GM (FLONASE) SCH (09:00)
[2016-10-02] MEDS: HumaLOG INSULIN (NovoLOG) PER UNIT SC SCH ×4 (09:15→21:00)
[2016-10-02] MEDS: NICOTINE 21MG/24HR 1 EA TRANSDERMAL TD SCH (09:15)
[2016-10-02] MEDS: methylPREDNISolone INJ 125 MG/2 ML VIAL (J2930) IV SCH ×2 (09:15→20:00)
[2016-10-02] MEDS: GABAPENTIN 400 MG CAP PO SCH ×3 (09:16→20:01)
[2016-10-02] MEDS: ENOXAPARIN 40 MG/0.4 ML SYRINGE (J1650) SC SCH (09:16)
[2016-10-02] MEDS: DULoxetine 30 MG CAP (CYMBALTA) PO SCH ×2 (09:16→20:01)
[2016-10-02] MEDS: OMEPRAZOLE 20 MG CAP PO SCH (09:16)
[2016-10-02 09:17] VITALS: BP 148/78
[2016-10-02] MEDS: guaiFENesin ER 600 MG TAB PO SCH ×2 (09:17→20:01)
[2016-10-02] MEDS: lamoTRIgine 100MG TAB PO SCH ×2 (09:17→20:01)
[2016-10-02] MEDS: NAPROXEN 250 MG TAB PO PRN ×2 (09:17→20:02)
[2016-10-02] MEDS: BISOPROLOL FUMARATE 5 MG TAB PO SCH (09:17)
[2016-10-02] MEDS: ASPIRIN 81 MG ENTERIC TAB PO SCH (09:17)
[2016-10-02 10:00] VITALS: BP 140/69
[2016-10-02] MEDS: ADVAIR DISKUS 250/50 INH PWD INH SCH ×2 (12:14→19:47)
[2016-10-02] MEDS: LIDOCAINE 5% OINT 30 GM TOP SCH (12:31)
[2016-10-02 14:00] VITALS: BP 135/65
[2016-10-02] MEDS: NYSTATIN 500,000 U/5 ML SUSP UDC PO SCH ×3 (15:10→20:00)
[2016-10-02] MEDS: ATORVASTATIN 20 MG TAB PO SCH (20:01)
[2016-10-02] MEDS: SERTRALINE 100 MG TAB PO SCH (20:01)
--- NOTE | 2016-10-02 20:31 | IPN ---
DATE: 09/30/2016 The patient is seen and examined. No acute events overnight. Denies any chest pain, pressure or discomfort. Reported respirations much improved. Denies any fevers or chills. VITAL SIGNS: Temperature 98.3, pulse 82, respirations 16, blood pressure 135/65, pulse oximetry 95% on 2 liters nasal cannula. LABORATORY DATA: WBC 13.5, hemoglobin and hematocrit 12.7/39.8, platelets 370. Chemistry: Sodium 141, potassium 4.2, chloride 101, bicarbonate 36, BUN 17, creatinine 0.61. PHYSICAL EXAMINATION: GENERAL: The patient is alert and oriented times three. No acute distress. HEENT: Normocephalic, atraumatic. PULMONARY: Diminished breath sounds bilaterally. Fine expiratory wheeze. CARDIAC: Regular rate and rhythm. Normal S1, S2. No murmurs detected. ABDOMEN: Soft, nontender, nondistended. EXTREMITIES: No edema in bilateral lower extremities. ASSESSMENT AND PLAN: This is an 87-year-old female patient with underlying medical history of chronic obstructive pulmonary disease (COPD) on 2 liters oxygen at home, history of hypoxic, hypercarbic respiratory failure, coronary arterial disease with myocardial infarction, anxiety, depression, fibromyalgia, degenerative disc disease, chronic musculoskeletal pain and muscle spasm, gastroesophageal reflux disease (GERD), hypertension, hypothyroidism, history of major depression with psychotic features, adrenal nodules on the right, diabetes mellitus, sleep apnea, hiatal hernia, migraines, overactive bladder, scoliosis, admitted for acute COPD exacerbation with hypoxic, hypercarbic respiratory failure. 1. Acute on chronic hypoxic hypercarbic respiratory failure due to acute COPD exacerbation. The patient was initially on bilevel positive airway pressure (BIPAP). Currently, taken off BiPAP. We will followup ABG in the morning. Continue nasal cannula on 2 liters. The patient is on oxygen at home, 2 liters. Followup ABG. Respiratory panel has been negative. Followup blood cultures. Sputum cultures. The patient was treated with Levaquin and Solu-Medrol, Nystatin for oral candidiasis, nebulizer treatments, Spiriva, Advair, oxygen supplementation. We will evaluate to see if the patient is a good candidate for Trilogy noninvasive ventilation in preventing readmissions. Followup C-reactive protein. 2. Acute COPD exacerbation. Refer to above. 3. Diabetes mellitus. Insulin as per protocol. Followup fingersticks. 4. Hypertension. Continue home medications, Lisinopril and bisoprolol. 5. Dyslipidemia. Continue statin. 6. Coronary arterial disease. Aspirin, beta leela, statin, Lisinopril. 7. Chronic pain and neuropathy. Naproxen as needed. Continue other home medications. Pain management has been consulted. Lidocaine ointment has seemed to help the patient with the pain. 8. Gastroesophageal reflux disease (GERD). Continue proton pump inhibitor. 9. History of anxiety and depression. Continue home medications. 10. Hypothyroidism. Continue Synthroid. 11. Deep vein thrombosis (DVT) prophylaxis. Lovenox subcutaneously. DISPOSITION: Pending clinical improvement, physical therapy (PT). Repeat ABG for possible candidate for Trilogy.
[2016-10-02 22:00] VITALS: BP 129/66
[2016-10-03 02:00] VITALS: BP 163/81
[2016-10-03] MEDS: IPRATROPIUM 0.5MG/ALBUTEROL 2.5MG INH SOL UD 3ML (DUONEB)(J7620) NEB SCH ×4 (03:41→15:26)
[2016-10-03 06:00] VITALS: BP 135/93
[2016-10-03] MEDS: LEVOTHYROXINE 0.05 MG TAB (50 MCG) PO SCH (06:08)
[2016-10-03] MEDS: LevoFLOXacin 500 MG TABLET PO SCH (06:08)
[2016-10-03] MEDS: SLF 3 ML SYR IV SCH ×2 (06:08→13:08)
[2016-10-03 06:55] LABS: BASO % 0.1 % (0.0-1.0); EOS % 0.1 % (0.0-3.0); LARGE UNSTAINED CELL # 0.1 K/mm3 (0.0-0.4); LYMPH # 1.3 K/mm3 (1.5-4.5); LYMPH % 12.7 % (24.0-44.0); MEAN CORPUSCULAR HEMOGLOBIN 31.8 pg (27.0-33.0); MEAN CORPUSCULAR HGB CONC 31.8 g/dl (32.0-36.5); MEAN CORPUSCULAR VOLUME 99.9 fl (80.0-96.0); MONO # 0.7 K/mm3 (0.0-0.8); MONO % 6.3 % (0.0-5.0); NEUTROPHILS # 8.2 K/mm3 (1.8-7.7); NEUTROPHILS % 79.8 % (36.0-66.0); PLATELET COUNT, AUTOMATED 364 k/mm3 (150-450); WHITE BLOOD COUNT 10.3 K/mm3 (4.0-10.0)
[2016-10-03] MEDS: BUDESONIDE 0.5 MG/2 ML INHALATION SUSPENSION INH SCH (07:27)
[2016-10-03] MEDS: TIOTROPIUM INHALER/CAPSULE (SPIRIVA) INH SCH (07:27)
[2016-10-03] MEDS: FORMOTEROL FUMARATE 20 MCG/2 ML INHALATION SOLUTION (PERFOROMIST) INH SCH (07:27)
[2016-10-03] MEDS: ADVAIR DISKUS 250/50 INH PWD INH SCH (07:27)
[2016-10-03 08:37] VITALS: BP 150/80
[2016-10-03] MEDS: HumaLOG INSULIN (NovoLOG) PER UNIT SC SCH ×2 (09:00→13:08)
[2016-10-03 09:10] LABS: ABG BASE EXCESS 6.6 (-2.0-2.0); ABG HCO3 32.9 MEQ/L (22.0-26.0); ABG PARTIAL PRESSURE CO2 54.5 mmHg (35.0-45.0); ABG PARTIAL PRESSURE O2 76.4 mmHg (75.0-100.0); ABG STANDARD HCO3 30.4 MEQ/L (22.0-26.0); ABG TOTAL CO2 34.6 MEQ/L (22.0-29.0); ABG pH (ARTERIAL) 7.399 UNITS (7.350-7.450)
[2016-10-03 10:26] LABS: ANION GAP 6 MEQ/L (8-16); BLOOD UREA NITROGEN 18 MG/DL (7-18); CALCIUM LEVEL 8.1 MG/DL (8.5-10.1); CARBON DIOXIDE LEVEL 35 MEQ/L (21-32); CHLORIDE LEVEL 100 MEQ/L (98-107); CREATININE FOR GFR 0.55 MG/DL (0.55-1.02); GLOMERULAR FILTRATION RATE > 60.0 (>51); GLUCOSE, FASTING 169 MG/DL (70-105); POTASSIUM SERUM 4.2 MEQ/L (3.5-5.1); SODIUM LEVEL 141 MEQ/L (136-145)
[2016-10-03] MEDS: OMEPRAZOLE 20 MG CAP PO SCH (10:27)
[2016-10-03] MEDS: DULoxetine 30 MG CAP (CYMBALTA) PO SCH (10:27)
[2016-10-03] MEDS: guaiFENesin ER 600 MG TAB PO SCH (10:28)
[2016-10-03] MEDS: ASPIRIN 81 MG ENTERIC TAB PO SCH (10:28)
[2016-10-03] MEDS: lamoTRIgine 100MG TAB PO SCH (10:28)
[2016-10-03] MEDS: GABAPENTIN 400 MG CAP PO SCH (10:28)
[2016-10-03] MEDS: BISOPROLOL FUMARATE 5 MG TAB PO SCH (10:29)
[2016-10-03] MEDS: NYSTATIN 500,000 U/5 ML SUSP UDC PO SCH ×2 (10:29→13:07)
[2016-10-03] MEDS: ENOXAPARIN 40 MG/0.4 ML SYRINGE (J1650) SC SCH (10:29)
[2016-10-03] MEDS: LIDOCAINE 5% OINT 30 GM TOP SCH (10:30)
[2016-10-03] MEDS: FLUTICASONE PROP 0.05% NASAL SPRAY 16 GM (FLONASE) SCH (10:30)
[2016-10-03] MEDS: NICOTINE 21MG/24HR 1 EA TRANSDERMAL TD SCH (10:30)
[2016-10-03] MEDS: methylPREDNISolone INJ 125 MG/2 ML VIAL (J2930) IV SCH (10:36)
--- NOTE | 2016-10-03 12:45 | IPN ---
DATE: 10/03/2016 SUBJECTIVE: Patient seen and examined. Reported respiration improved. Denies any chest pain, pressure, discomfort. Continues to have cough. VITAL SIGNS: Temperature 98.1, pulse 74, respirations 24, blood pressure 150/80, pulse oximetry 92% on two liters nasal cannula. LABORATORY DATA: Arterial blood gas (ABG) on two liters nasal cannula: 7.399, 54.5, 76.4, 32.9 on two liters nasal cannula. WBC 10.3, hemoglobin and hematocrit 13 over 41, platelets 364. Chemistry: Sodium 141, potassium 4.2, chloride 100, bicarbonate 35, BUN 18, creatinine 0.55. PHYSICAL EXAMINATION: GENERAL: Patient alert and oriented times three in no acute distress. HEENT: Normocephalic, atraumatic. PULMONARY: Diminished breath sounds bilaterally. Fine expiratory wheeze. CARDIAC: Regular rate and rhythm. Normal S1, S2. ABDOMEN: Soft, nontender, nondistended. EXTREMITIES: No edema bilateral lower extremities. ASSESSMENT AND PLAN: This is an 60-year-old female patient with underlying medical history of chronic obstructive pulmonary disease (COPD) on two liters oxygen at home, history of hypoxic hypercarbic respiratory failure, coronary arterial disease with myocardial infarction ([place]), anxiety, depression, fibromyalgia, degenerative disc disease, chronic musculoskeletal pain and muscle spasm, gastroesophageal reflux disease (GERD), hypertension, hypothyroidism, history of major depression with psychotic features, adrenal nodules on the right, diabetes mellitus, obstructive sleep apnea, hiatal hernia, migraine headache, overactive bladder, scoliosis, admitted for acute COPD exacerbation with hypoxic hypercarbic respiratory failure. 1. Acute on chronic hypoxic hypercarbic respiratory failure due to acute chronic obstructive pulmonary disease (COPD) exacerbation. The patient initially placed on bilevel positive airway pressure (BiPAP) in the hospital, with improvement of hypercarbia. Currently taken off BiPAP with persistent hypercarbia that is chronic. Arterial blood gas (ABG) done on two liters nasal cannula. Patient on two liters oxygen supplementation at home. Respiratory panel appreciated, negative. Trilogy noninvasive vent due to chronic hypercarbic respiratory failure secondary to COPD. BiPAP has been used during hospitalization, but does not offer the best mode of ventilation and is uncomfortable for the patient. Trilogy offers the AVAPS-AE mode which will target the patient's tidal volume based on her ideal body weight. This mode allows the patient to exhale down to baseline, whereas the BiPAP does not, and oftentimes causes breath stacking and air trapping. Trilogy will reduce carbon dioxide (CO2) level and rest respiratory muscles, and Trilogy will also provide internal/external battery which allows it to be operating in the event of power loss. The patient is at risk of serious medical consequences, and I believe that Trilogy will improve the patient's quality of life and reduce hospitalization. Will taper steroids. Patient on Levaquin and Nystatin for oral candidiasis, nebulizer treatments, Spiriva, Advair, oxygen supplementation. 2. Acute COPD exacerbation. Refer to above. 3. Diabetes. Insulin as per protocol. Followup fingersticks. 4. Hypertension. Continue home medication lisinopril, bisoprolol. 5. Dyslipidemia. Continue statin. 6. Coronary arterial disease. Aspirin, beta leela, statin, lisinopril. 7. Chronic pain, neuropathy. Naproxen as needed. Lidocaine ointment. Pain management followup as outpatient. 8. Gastroesophageal reflux disease (GERD). Continue proton pump inhibitor (PPI). 9. History of anxiety and depression. Continue home medication. 10. Hypothyroidism. Continue Synthroid. 11. Deep venous thrombosis( DVT) prophylaxis. Lovenox subcutaneous. DISPOSITION: Pending clinical improvement, physical therapy. Likely discharge later this afternoon.
[2016-10-03 14:00] VITALS: BP 157/85
[2016-10-03] MEDS ORDERED: LIDO5OI TOP (14:18)
[2016-10-03] MEDS ORDERED: LEVA500T PO (14:18)
[2016-10-03] MEDS ORDERED: PRED10TA PO (14:19)
--- NOTE | 2016-10-05 01:05 | DSES ---
DATE OF ADMISSION: 09/30/2016 DATE OF DISCHARGE: 10/03/2016 PRIMARY CARE PROVIDER: [facility] FINAL DIAGNOSES: 1. Acute on chronic hypoxic hypercarbic respiratory failure. 2. Acute chronic obstructive pulmonary disease (COPD) exacerbation. 3. Questionable community-acquired bacterial pneumonia. 4. Diabetes. 5. Hypertension. 6. Obesity. 7. Dyslipidemia. 8. Coronary arterial disease. 9. Chronic pain. 10. Neuropathy. 11. Gastroesophageal reflux disease (GERD). 12. History of anxiety, depression. 13. Hypothyroidism. HISTORY OF PRESENT ILLNESS: This is a 60-year-old female patient with multiple medical comorbidities, who presented to the hospital with 3-day history of worsening shortness of breath and difficulty breathing. Patient had a cough and cold and congestion prior to worsening shortness of breath and was using her oxygen and nebulizer treatment without much improvement. She came to the emergency room. In the emergency room, patient was found to be in COPD exacerbation with decreased breath sounds with a chest that seems extremely tight, poor air movement on physical exam. Blood test is significant for hypercarbic respiratory failure, was placed on bilevel positive airway pressure (BiPAP) and nebulizer treatment, also given dose of levofloxacin antibiotic. HOSPITAL COURSE: Patient was initially admitted to intensive care unit (ICU), was taken off BiPAP. Repeat arterial blood gas (ABG) was done. Steroid was given. Antibiotic was given. Patient and family services (PFS) was consulted given patient will benefit from Trilogy. Patient remained chronic hypercarbic with chronic hypoxic respiratory failure. Physical therapy was done. Steroids tapered. Nebulizer treatment inhaler was given. Patient's home medications were continued. Patient's condition progressively improved. Patient did qualify for Trilogy. Subsequently, patient was discharged home for further treatment as outpatient. Patient currently tolerating oral, comfortable, passed physical therapy. VITAL SIGNS: Temperature 98.2, pulse 85, respirations 17, blood pressure 157/85, pulse oximetry 92% on 2-liter nasal cannula. LABORATORY: WBC 10.3, hemoglobin and hematocrit 13/41, platelets 364. Chemistry: Sodium 141, potassium 4.2, chloride 100, bicarbonate 35, BUN 18, creatinine 0.55. DISCHARGE MEDICATIONS: - Levaquin 500 mg by mouth for 5 more days - lidocaine ointment as needed every 24 hours - prednisone taper 10 mg tablets, four tablets by mouth twice a day for 2 days, four tablets by mouth daily for 2 days, three tablets by mouth daily for 2 days, two tablets by mouth daily for 2 days, and one tablet by mouth daily for 2 days and then stop Home medications: - Ventolin inhaler every 4 hours as needed - albuterol nebulizer every 4 hours as needed - aspirin 81 mg by mouth daily - Lipitor 80 mg by mouth nightly - bisoprolol 2.5 mg by mouth daily - duloxetine 60 mg by mouth daily, 30 mg by mouth nightly - Flonase in nasal daily - gabapentin 300 mg by mouth three times a day - lamotrigine 100 mg by mouth twice a day - Synthroid 50 mcg by mouth daily - Bengay as needed - metformin 1000 mg by mouth twice a day - naproxen 500 mg by mouth twice a day - omeprazole 40 mg by mouth daily - Advair inhaler 250/50 mcg inhalation twice a day - sertraline 100 mg by mouth nightly - Spiriva inhalation daily DISCHARGE INSTRUCTIONS: Patient is instructed to followup with primary care provider in 7 days, cook frozen dessert in 1-2 weeks. Return to the hospital if symptoms worsen.
== END 2016-10-03 15:51 | disposition home or self-care (01) | DRG 189 ==
LOC: EDBD 01:13 → M ED 02:55 → M ED INP 03:20 → M ICU 08:13 → M MS5PR 10-01 23:30
PROVIDERS: ADMIT Internal Medicine Nephrology; ATTEND Hospitalist
PROC: 5A09358 Assistance with Respiratory Ventilation, Less than 24 Consecutive Hours, Intermittent Positive Airway Pressure (ICD-10-PCS; principal; 2016-09-30)
DX: J96.22 Acute and chronic respiratory failure with hypercapnia (principal); J44.1 Chronic obstructive pulmonary disease with (acute) exacerbation; J96.21 Acute and chronic respiratory failure with hypoxia; E11.9 Type 2 diabetes mellitus without complications; I10 Essential (primary) hypertension; E66.9 Obesity, unspecified; E78.5 Hyperlipidemia, unspecified; I25.10 Atherosclerotic heart disease of native coronary artery without angina pectoris; F41.9 Anxiety disorder, unspecified; F32.9 Major depressive disorder, single episode, unspecified; M79.7 Fibromyalgia; K21.9 Gastro-esophageal reflux disease without esophagitis; E03.9 Hypothyroidism, unspecified; G62.9 Polyneuropathy, unspecified; Z79.82 Long term (current) use of aspirin; Z79.84 Long term (current) use of oral hypoglycemic drugs; Z79.899 Other long term (current) drug therapy; I25.2 Old myocardial infarction; Z90.49 Acquired absence of other specified parts of digestive tract; Z98.51 Tubal ligation status; Z87.891 Personal history of nicotine dependence; Z99.81 Dependence on supplemental oxygen

== ENCOUNTER → 2016-10-07 | Outpatient (REF) | payer MEDICARE, MEDICAID ==
[~2016-10-07] MED LIST changes: +GABA800T PO; +LIDO5OI TOP; +METF1000 PO; +NAPR1TAB86 PO; +SERT-138 PO
== END ==
LOC: M SFHCPLAZ 17:06
PROVIDERS: ATTEND Family Medicine
DX: N39.3 Stress incontinence (female) (male) (principal)
CPT/HCPCS: 51798; 81001; 87086; G0463

== ENCOUNTER 2016-10-12 17:41 | Inpatient (IN) | payer MEDICARE, MEDICAID ==
[~2016-10-12] VITALS: Ht 165.1 cm; Wt 92.5 kg
[2016-10-12] MEDS ORDERED: methylPREDNISolone INJ 125 MG/2 ML VIAL (J2930) IV ONE (18:30)
[2016-10-12] MEDS: IPRATROPIUM 0.5MG/ALBUTEROL 2.5MG INH SOL UD 3ML (DUONEB)(J7620) NEB PRN ×3 (18:30→18:44)
[2016-10-12 18:33] LABS: BASO % 0.3 % (0.0-1.0); EOS # 0.2 K/mm3 (0.0-0.50); EOS % 1.1 % (0.0-3.0); LARGE UNSTAINED CELL # 0.2 K/mm3 (0.0-0.4); LARGE UNSTAINED CELL % 0.9 % (0.0-4.0); LYMPH # 2.6 K/mm3 (1.5-4.5); LYMPH % 15.5 % (24.0-44.0); MEAN CORPUSCULAR HEMOGLOBIN 31.1 pg (27.0-33.0); MEAN CORPUSCULAR HGB CONC 32.2 g/dl (32.0-36.5); MEAN CORPUSCULAR VOLUME 96.7 fl (80.0-96.0); MONO # 0.9 K/mm3 (0.0-0.8); MONO % 5.5 % (0.0-5.0); NEUTROPHILS # 12.2 K/mm3 (1.8-7.7); NEUTROPHILS % 76.7 % (36.0-66.0); PLATELET COUNT, AUTOMATED 420 k/mm3 (150-450); RED CELL DISTRIBUTION WIDTH 13.2 % (11.5-14.5); WHITE BLOOD COUNT 15.9 K/mm3 (4.0-10.0)
[2016-10-12 18:46] LABS: ALBUMIN 3.6 GM/DL (3.2-5.2); ALBUMIN/GLOBULIN RATIO 1.16 (1.00-1.93); ALKALINE PHOSPHATASE 98 U/L (45-117); ALT/SGPT 25 U/L (12-78); ANION GAP 2 MEQ/L (8-16); AST/SGOT 13 U/L (15-37); BILIRUBIN,DIRECT < 0.1 MG/DL (0.0-0.2); BILIRUBIN,TOTAL 0.3 MG/DL (0.2-1.0); BLOOD UREA NITROGEN 10 MG/DL (7-18); CALCIUM LEVEL 8.6 MG/DL (8.5-10.1); CARBON DIOXIDE LEVEL 41 MEQ/L (21-32); CHLORIDE LEVEL 96 MEQ/L (98-107); CREATININE FOR GFR 0.47 MG/DL (0.55-1.02); GLOMERULAR FILTRATION RATE > 60.0 (>51); GLUCOSE, FASTING 149 MG/DL (70-105); POTASSIUM SERUM 4.1 MEQ/L (3.5-5.1); SODIUM LEVEL 139 MEQ/L (136-145); THYROXINE (T4) 8.3 UG/DL (4.5-12.0); TOTAL PROTEIN 6.7 GM/DL (6.4-8.2)
[2016-10-12 18:51] LABS: ABG HCO3 40.8 MEQ/L (22.0-26.0); ABG PARTIAL PRESSURE O2 160.4 mmHg (75.0-100.0); ABG STANDARD HCO3 35.9 MEQ/L (22.0-26.0); ABG TOTAL CO2 43.1 MEQ/L (22.0-29.0); ABG pH (ARTERIAL) 7.366 UNITS (7.350-7.450)
[2016-10-12 18:52] LABS: ABG PARTIAL PRESSURE CO2 72.9 mmHg (35.0-45.0)
[2016-10-12] MEDS ORDERED: methylPREDNISolone INJ 125 MG/2 ML VIAL (J2930) IV SCH (19:30)
--- NOTE | 2016-10-12 19:35 | REP ---
Clinical: Cough and dyspnea. Technique: PA and lateral. Comparison: 06/13/2016. Findings: Mediastinum and cardiac silhouette are stable. Lung cherry demonstrate stable mid to lower lobe interstitial changes. Subtle superimposed atelectasis cannot be excluded. No focal consolidation, effusion, or pneumothorax. Skeletal structures intact. Impression: Chronic stable changes. Cannot exclude trace basilar atelectasis. Signed by Michael Vasques MD 10/12/2016 07:27 P
[2016-10-12] MEDS ORDERED: ASPI81TAEC PO (19:46)
[2016-10-12] MEDS: IPRATROPIUM 0.02% SOLN 0.5MG/2.5 ML NEB NEB SCH (20:00)
[2016-10-12] MEDS: LEVALBUTEROL 1.25 MG/0.5 ML CONCENTRATE NEB NEB SCH (20:00)
--- NOTE | 2016-10-12 20:11 | ECGEPIP ---
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
[2016-10-12] MEDS ORDERED: LEVALBUTEROL 1.25 MG/0.5 ML CONCENTRATE NEB NEB ONE (20:30)
[2016-10-12] MEDS ORDERED: GLUCOSE 4 GM CHEW TABLET PO PRN (21:00)
[2016-10-12] MEDS ORDERED: GLUCAGON FOR INJ 1 MG VIAL (J1610) SC PRN (21:00)
[2016-10-12] MEDS ORDERED: DOXYCYCLINE HYCLATE 100 MG TAB PO SCH (21:00)
[2016-10-12] MEDS ORDERED: DEXTROSE 50% 50 ML SYRINGE IV PRN (21:00)
[2016-10-12] MEDS: ATORVASTATIN 20 MG TAB PO SCH (21:14)
[2016-10-12] MEDS: lamoTRIgine 100MG TAB PO SCH (21:15)
[2016-10-12] MEDS: DULoxetine 30 MG CAP (CYMBALTA) PO SCH (21:15)
[2016-10-12] MEDS: SERTRALINE 100 MG TAB PO SCH (21:15)
[2016-10-12] MEDS: NAPROXEN 250 MG TAB PO SCH (21:18)
--- NOTE | 2016-10-12 21:32 | HPE ---
DATE OF ADMISSION: 10/12/2016 PRIMARY CARE PHYSICIAN: [facility]. INPATIENT HOSPITALIST ATTENDING: Dr. Derick Quiñones. CHIEF COMPLAINT: Shortness of breath. HISTORY OF PRESENT ILLNESS: This is a 60-year-old female with a history of chronic hypoxic respiratory failure on home oxygen, chronic hypercarbia, baseline carbon dioxide ( CO2) 60-70, coronary artery disease (CAD), myocardial infarction (PA) in the past, anxiety, depression, fibromyalgia on chronic gabapentin, chronic musculoskeletal pain, muscle spasm, reflux, hypertension, hypothyroidism, depression without psychotic features, adrenal nodule on the right, diabetes, obstructive sleep apnea, recently discharged with Trilogy in early September 2016, hiatal hernia, migraines, overactive bladder, and scoliosis, who presents with worsening shortness of breath since discharge, worsening exercise intolerance. Shortness of breath is present both at rest and with exertion without accompanying chest pain , palpitations, lightheadedness, chest tightness, diaphoresis, fever or chills. She does have a productive cough of yellow sputum which is chronic. No nausea or vomiting, bright red blood per rectum, melena, hematemesis, black tarry stools. Denies any dysuria, urgency, frequency, weight gain, weight changes, or changes in appetite. The patient presents for acute on chronic respiratory distress with bilateral wheezing despite nebulizer treatments every four hours at home with persistent symptoms. In the emergency room (ER), EKG was normal sinus rhythm, ventricular rate of 79, with no acute ST-T wave changes. Troponin was negative at less than 0.02. Patient was afebrile with normal white count of 10.3, and chest x-ray shows no acute infiltrate, consolidation, pulmonary edema, or pleural effusion, with stable chronic changes with bibasilar interstitial fibrosis which is unchanged from previous. The heart size is normal. Hospitalist service was called for admission for acute chronic obstructive pulmonary disease (COPD) exacerbation with yellow sputum production, worsening shortness of breath and wheezing. PAST MEDICAL HISTORY: 1. Chronic hypoxic respiratory failure. 2. Obstructive sleep apnea on Trilogy. 3. Chronic hypercarbia with baseline CO2 level of 60-70. 4. Coronary artery disease (CAD). 5. Myocardial infarction in the past. 6. Hypothyroidism. 7. Depression. 8. Right adrenal nodule. 9. Diabetes. 10. Hiatal hernia. 11. Migraines. 12. Overactive bladder. 13. Scoliosis. 14. Chronic obstructive pulmonary disease (COPD). 15. Chronic hypoxia. 16. Anxiety/depression. 17. Fibromyalgia. 18. Degenerative joint disease. 19. Chronic musculoskeletal pain. 20. Reflux. 21. Muscle spasm. 22. Hypertension. PAST SURGICAL HISTORY: 1. Cholecystectomy. 2. Cardiac catheterization but no stenting. 3. Breast biopsy. 4. Dilation and curettage (D and C). 5. Tubal ligation. 6. Tonsillectomy. 7. Exploratory laparotomy. FAMILY HISTORY: Noncontributory. SOCIAL HISTORY: Smoked a pack a day for 40 years. Quit smoking 2015. No alcohol abuse or illicit drug use. HOME MEDICATIONS: - albuterol 2.5 mg every four as needed for shortness of breath and wheezing - Ventolin two puffs every four as needed for shortness of breath - aspirin 81 mg daily - Lipitor 80 mg at bedtime - bisoprolol 2.5 daily - duloxetine 30 mg at bedtime, 60 mg every morning - Flonase one spray NA daily - gabapentin 800 mg three times a day - lamotrigine 100 mg twice a day - levothyroxine 50 mcg daily - metformin 1 gram daily - omeprazole 40 mg daily - salmeterol Advair Diskus 250/50 one puff twice a day - Sertraline 100 mg at bedtime - Spiriva 18 mcg daily - Bengay four times a day as needed for pain - Naprosyn 500 mg twice a day FAMILY HISTORY: Noncontributory. REVIEW OF SYSTEMS: Per history of present illness (HPI). 12-point system otherwise negative. PHYSICAL EXAMINATION: VITAL SIGNS: Blood pressure 139/81, temperature 97.3, pulse 92 sinus rhythm, respiratory rate 18, 97% on two liters nasal cannula. GENERAL: The patient is awake, alert, and oriented to person, place and time. She is somewhat lethargic but opens her eyes and can maintain a conversation. Speech is fluent. No facial asymmetry. HEENT: Pupils equal, round, and reactive to light and accommodation. Extraocular muscles are intact. Normocephalic, atraumatic. No icterus or jaundice. No use of respiratory accessory muscles. No jugular venous distention. Moist mucous membranes. NECK: No cervical lymphadenopathy or thyromegaly. LUNGS: Diminished breath sounds. Prolonged expiration with bilateral expiratory wheezing. HEART: S1, S2. Sinus rhythm. ABDOMEN: Soft, nontender, nondistended. Obese abdomen. Positive bowel sounds times four quadrants. No hepatosplenomegaly. No rebound guarding. EXTREMITIES: No pitting edema, cyanosis or clubbing. SKIN: Warm, dry, pink in color. Warm to touch. LABORATORY DATA: White count 15.9, hemoglobin 14, hematocrit 44, platelet count 420. 76% neutrophils, 15% lymphocytes, 5.5% monocytes. Eosinophils are 1.1. Sodium 139, potassium 4.1, chloride 96, bicarbonate 41, BUN 10, creatinine 0.47, glucose 149, lactic acid 1, calcium 8.6, total bilirubin 0.3, direct bilirubin less than 0.1, AST 13, ALT 25, alkaline phosphatase 98. Total CK 65, MB fraction 3, relative index 4.6, troponin less than 0.02. C-reactive protein 0.32. BNP 22.9. Total protein 6.7, albumin 3.6. TSH 0.906, T4 8.3. MICROBIOLOGY: 10/12: Human rhinovirus, enterovirus blood culture is pending. IMAGING: Chest x-ray: Chronic stable changes. Cannot exclude trace basilar atelectasis. ASSESSMENT AND PLAN: This is a 60-year-old female with chronic hypoxic respiratory failure on two liters of home oxygen, chronic hypercarbia, CO2 level about 60-70, recent admission for similar issues with chronic obstructive pulmonary disease (COPD) exacerbation, coronary artery disease, no stent placement, hypertension, diabetes, obstructive sleep apnea on Trilogy, anxiety, depression, fibromyalgia, chronic musculoskeletal pain, muscle spasms, reflux, hypertension, hypothyroidism, depression, right adrenal nodule, hiatal hernia, migraines, overactive bladder, scoliosis, presents to the emergency room with persistent shortness of breath, wheezing despite every four hours nebulizer treatments from discharge on 10/05/2016, now with yellow productive sputum. Chest x-ray is negative for acute infiltrate. Respiratory panel is positive for human rhinovirus, enterovirus. Patient is admitted for acute COPD exacerbation, assigned to hospitalist Dr. Derick Quiñones, as an inpatient for two midnights for the following issues: 1. Acute COPD exacerbation secondary to human rhinovirus and enterovirus. The patient will be admitted to telemetry progressive care unit (PCU). Due to prior history of coronary artery disease (CAD), will cycle cardiac markers. Treat for COPD exacerbation with Solu-Medrol every eight hours, nebulizer treatments, supplemental oxygen to keep saturations at 80-92%. COPD diet. The patient will not be given antibiotics as there is no infiltrate on chest x-ray and the increased risk of Clostridium (C.) difficile colitis. 2. History of coronary artery disease, myocardial infarction in the past. Troponins are negative. EKG is unremarkable. Remains in sinus rhythm. Ventricular rate of [address]-T wave changes, T-wave inversions or ST depressions. Cycle cardiac markers every six hours to rule out acute coronary syndrome. Recheck a 12-lead EKG in the morning. Continue her on aspirin 81 mg daily, Zebeta 2.5 mg daily, lisinopril 2.5 mg daily, and atorvastatin 80 mg at bedtime. 3. Depression. May continue on Cymbalta 30 mg at bedtime, 60 mg every morning, and Zoloft 100 mg at bedtime. 4. Chronic musculoskeletal pain and neuropathy. The patient takes Neurontin 800 mg three times a day. We will decrease the dose due to slight lethargy at the bedside during the history and physical interview. Try to avoid and decrease sedatives and hypnotics due to history of obstructive sleep apnea, chronic co2 retention with chronic hypercarbia, as well as risk for worsening respiratory acidosis during acute COPD exacerbation. 5. Hypertension. Currently stable. Continue on Zebeta 2.5 mg daily, lisinopril 2.5 mg daily. 6. Hypothyroidism. Thyroid stimulating hormone (TSH) is within normal limits. May continue on home dose of Synthroid 0.05 mg daily. 7. History of reflux. Continue Prilosec 40 mg daily. 8. Hyperlipidemia. Continue on Lipitor 80 mg daily and check lipid profile in the morning. 9. Deep venous thrombosis (DVT) prophylaxis with subcutaneous Lovenox. No renal dosing required at 40 mg subcutaneous daily, as well as compression stockings. The patient will be assigned to Dr. Derick Quiñones at 7 a.m. on 10/13/2016. ISMAEL
[2016-10-12 22:25] VITALS: BP 153/78
[2016-10-12] MEDS: methylPREDNISolone INJ 125 MG/2 ML VIAL (J2930) IV SCH (23:28)
[2016-10-12] MEDS: HumaLOG INSULIN (NovoLOG) PER UNIT SC SCH (23:31)
[2016-10-13] VITALS (7 sets, daily range): BP systolic 130–163; BP diastolic 66–91
[2016-10-13] MEDS: LEVALBUTEROL 1.25 MG/0.5 ML CONCENTRATE NEB NEB SCH ×4 (01:27→20:21)
[2016-10-13] MEDS: IPRATROPIUM 0.02% SOLN 0.5MG/2.5 ML NEB NEB SCH ×4 (01:27→20:21)
[2016-10-13] MEDS ORDERED: BISOPROLOL FUMARATE 5 MG TAB PO ONE (02:45)
[2016-10-13 05:10] LABS: BASO % 0.2 % (0.0-1.0); EOS # 0.1 K/mm3 (0.0-0.50); EOS % 0.4 % (0.0-3.0); LARGE UNSTAINED CELL % 0.2 % (0.0-4.0); LYMPH # 0.6 K/mm3 (1.5-4.5); LYMPH % 3.5 % (24.0-44.0); MEAN CORPUSCULAR HEMOGLOBIN 30.9 pg (27.0-33.0); MEAN CORPUSCULAR HGB CONC 31.5 g/dl (32.0-36.5); MEAN CORPUSCULAR VOLUME 98.1 fl (80.0-96.0); MONO # 0.4 K/mm3 (0.0-0.8); MONO % 2.3 % (0.0-5.0); NEUTROPHILS # 15.8 K/mm3 (1.8-7.7); NEUTROPHILS % 93.5 % (36.0-66.0); PLATELET COUNT, AUTOMATED 441 k/mm3 (150-450); RED CELL DISTRIBUTION WIDTH 13.3 % (11.5-14.5); WHITE BLOOD COUNT 16.8 K/mm3 (4.0-10.0)
[2016-10-13 05:33] LABS: ANION GAP 2 MEQ/L (8-16); BLOOD UREA NITROGEN 14 MG/DL (7-18); CALCIUM LEVEL 8.8 MG/DL (8.5-10.1); CARBON DIOXIDE LEVEL 41 MEQ/L (21-32); CHLORIDE LEVEL 96 MEQ/L (98-107); CHOLESTEROL LEVEL 116 MG/DL (<200); GLOMERULAR FILTRATION RATE > 60.0 (>51); GLUCOSE, FASTING 229 MG/DL (70-105); POTASSIUM SERUM 4.9 MEQ/L (3.5-5.1); SODIUM LEVEL 139 MEQ/L (136-145); TRIGLYCERIDES LEVEL 59 MG/DL (<150)
[2016-10-13] MEDS: FLUTICASONE PROP 0.05% NASAL SPRAY 16 GM (FLONASE) SCH (08:20)
[2016-10-13] MEDS: methylPREDNISolone INJ 125 MG/2 ML VIAL (J2930) IV SCH ×2 (08:20→16:20)
[2016-10-13] MEDS: HumaLOG INSULIN (NovoLOG) PER UNIT SC SCH ×4 (08:22→21:10)
[2016-10-13] MEDS: OMEPRAZOLE 20 MG CAP PO SCH (08:24)
[2016-10-13] MEDS: lamoTRIgine 100MG TAB PO SCH ×2 (08:24→20:02)
[2016-10-13] MEDS: BISOPROLOL FUM 2.5 MG PER 1/2TAB PO SCH (08:24)
[2016-10-13] MEDS: LEVOTHYROXINE 0.05 MG TAB (50 MCG) PO SCH (08:25)
[2016-10-13] MEDS: GABAPENTIN 400 MG CAP PO SCH ×3 (08:25→20:00)
[2016-10-13] MEDS: DULoxetine 30 MG CAP (CYMBALTA) PO SCH ×2 (08:25→20:02)
[2016-10-13] MEDS: ENOXAPARIN 40 MG/0.4 ML SYRINGE (J1650) SC SCH (08:26)
[2016-10-13] MEDS: NAPROXEN 250 MG TAB PO SCH ×2 (08:26→20:01)
[2016-10-13] MEDS ORDERED: ASPIRIN 325 MG TAB PO SCH (09:00)
[2016-10-13] MEDS ORDERED: PANTOPRAZOLE 40MG TAB (PROTONIX) PO SCH (09:00)
[2016-10-13] MEDS ORDERED: GABAPENTIN 400 MG CAP PO SCH (09:00)
[2016-10-13] MEDS ORDERED: LISINOPRIL *2.5 MG* TAB PO SCH (09:00)
[2016-10-13] MEDS ORDERED: NAPROXEN 250 MG TAB PO SCH (09:00)
[2016-10-13] MEDS: LEVALBUTEROL 1.25 MG/0.5 ML CONCENTRATE NEB NEB PRN (11:14)
[2016-10-13] MEDS: traMADol 50 MG TAB PO PRN (12:12)
--- NOTE | 2016-10-13 13:40 | ECGEPIP ---
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 Low voltages with slow precordial R-wave progression and persistent S waves in V5 Body habitus versus pulmonary disease; could not rule out prior AWMI. No change from 10/12/16. Electronically Signed On 10-13-2016 13:39:43 EDT by Anthony Traore
--- NOTE | 2016-10-13 16:47 | IPNPDOC ---
Subjective Date Seen The patient was seen on 10/13/16. Subjective Chief Complaint/HPI The patient is a 60-year-old female admitted with a reason for visit of Copd Exacerbation. General: Reports: Fatigue, Malaise, Denies: Chills, Night Sweats Constitutional: Denies: Chills, Fever Eyes: Denies: Pain, Vision change ENT: Denies: Head Aches, Ear Pain Skin: Denies: Rash, Lesions Pulmonary: Reports: Dyspnea, Cough Cardiovascular: Denies: Chest Pain, Palpitations Gastrointestinal: Denies: Nausea, Vomiting Genitourinary: Denies: Dysuria, Frequency Hematologic: Denies: Bruising, Bleeding Excessively Objective Physical Examination General Exam: Positive: Alert, Cooperative, No Acute Distress ENT Exam: Positive: Atraumatic, Mucous membr. moist/pink Neck Exam: Negative: JVD Chest Exam: Positive: Wheezing, Diminished, Negative: Rales Heart Exam: Positive: Rate Normal, Normal S1, Normal S2 Abdomen Exam: Positive: Soft, Negative: Tenderness Extremity Exam: Negative: Tenderness, Swelling Psych Exam: Positive: Oriented x 3 Assessment /Plan Plan/VTE VTE Prophylaxis Ordered?: Yes Plan Acute COPD exacerbation secondary to human rhinovirus and enterovirus. CXR with no acute infiltrates ABG appears to be at the patient's baseline Cont Solu-Medrol, nebulizer treatments Continue supportive treatment and monitor respiratory status Chronic Hypoxia 2/2 COPD on 2L of Oxygen at baseline ABG noted to be at baseline Cont on 2L of oxygen via NC We will continue to monitor the patient's respiratory status History of coronary artery disease, myocardial infarction EKG with no acute ST changes Troponins wnl Continue her on aspirin 81 mg daily, Zebeta 2.5 mg daily, lisinopril 2.5 mg daily, and atorvastatin 80 mg at bedtime. Depression Cont Cymbalta 30 mg at bedtime, 60 mg every morning, and Zoloft 100 mg at bedtime. Chronic musculoskeletal pain and neuropathy Cont Neurontin 800 mg three times a day. Hypertension Continue on Zebeta 2.5 mg daily, lisinopril 2.5 mg daily. Hypothyroidism Continue Synthroid 0.05 mg daily. History of reflux Continue Prilosec 40 mg daily. Hyperlipidemia Continue on Lipitor 80 mg daily Deep venous thrombosis (DVT) prophylaxis Subcutaneous Lovenox. Dispo we'll continue to optimize the patient's respiratory status, and anticipate discharge in the next 48-72 hours. VS, I&O, 24H, Fishbone Vital Signs/I&O Vital Signs Date Time Temp Pulse Resp B/P (MAP) Pulse Ox O2 Delivery O2 Flow Rate FiO2 10/13/16 16:00 97.0 81 20 136/70 (92) 95 Nasal Cannula 2.0 10/13/16 00:00 96 I&O- Last 24 Hours up to 6 AM 10/13/16 06:00 Intake Total 660 ml Balance 660 ml Laboratory Data 24H LABS Laboratory Tests 2 10/12/16 17:58: White Blood Count 15.9H, Red Blood Count 4.60, Hemoglobin 14.3, Hematocrit 44.5 , Mean Corpuscular Volume 96.7H, Mean Corpuscular Hemoglobin 31.1, Mean Corpuscular Hemoglobin Concent 32.2, Red Cell Distribution Width 13.2, Platelet Count 420, Neutrophils (%) (Auto) 76.7H, Lymphocytes (%) (Auto) 15.5L, Monocytes (%) (Auto) 5.5H, Eosinophils (%) (Auto) 1.1, Basophils (%) (Auto) 0.3 , Neutrophils # (Auto) 12.2H, Lymphocytes # (Auto) 2.6, Monocytes # (Auto) 0.9H , Eosinophils # (Auto) 0.2, Basophils # (Auto) 0.0, Large Unclassified Cells % 0.9, Large Unclassified Cells # 0.2, Anion Gap 2L, Glomerular Filtration Rate > 60.0, Lactic Acid Level 1.0, Calcium Level 8.6, Aspartate Amino Transf (AST/SGOT ) 13L, Alanine Aminotransferase (ALT/SGPT) 25, Alkaline Phosphatase 98, Total Bilirubin 0.3, Direct Bilirubin < 0.1, Total Creatine Kinase 65, Creatine Kinase MB 3.0, Creatine Kinase MB Relative Index 4.61H, Troponin I < 0.02, C- Reactive Protein, Quantitative 0.32H, B-Type Natriuretic Peptide 22.9, Total Protein 6.7, Albumin 3.6, Albumin/Globulin Ratio 1.16, Thyroid Stimulating Hormone (TSH) 0.906, Thyroxine (T4) 8.3 10/12/16 18:40: Blood Gas Bicarbonate Standard 35.9H, Arterial Blood pH 7.366, Arterial Blood Partial Pressure CO2 72.9*H, Arterial Blood Partial Pressure O2 160.4H, Arterial Blood Total CO2 43.1H, Arterial Blood HCO3 40.8H, Arterial Blood Base Excess 12.0H, Arterial Blood Oxygen Saturation 98.0 10/12/16 23:13: Bedside Glucose (Misc Panel) 273H 10/12/16 23:49: Total Creatine Kinase 50, Creatine Kinase MB 2.5, Creatine Kinase MB Relative Index 5.00H, Troponin I < 0.02 10/13/16 04:51: White Blood Count 16.8H, Red Blood Count 4.71, Hemoglobin 14.6, Hematocrit 46.2 , Mean Corpuscular Volume 98.1H, Mean Corpuscular Hemoglobin 30.9, Mean Corpuscular Hemoglobin Concent 31.5L, Red Cell Distribution Width 13.3, Platelet Count 441, Neutrophils (%) (Auto) 93.5H, Lymphocytes (%) (Auto) 3.5L, Monocytes (%) (Auto) 2.3, Eosinophils (%) (Auto) 0.4, Basophils (%) (Auto) 0.2, Neutrophils # (Auto) 15.8H, Lymphocytes # (Auto) 0.6L, Monocytes # (Auto) 0.4, Eosinophils # (Auto) 0.1, Basophils # (Auto) 0.0, Large Unclassified Cells % 0.2 , Large Unclassified Cells # 0.0, Anion Gap 2L, Glomerular Filtration Rate > 60.0, Calcium Level 8.8, Total Creatine Kinase 49, Creatine Kinase MB 2.5, Creatine Kinase MB Relative Index 5.10H, Troponin I < 0.02, Triglycerides Level 59, LDL Cholesterol 37.2, Total Cholesterol 116, Non-HDL Cholesterol (LDL + VLDL ) 49, Total HDL Cholesterol 67, Cholesterol/HDL Ratio 1.731 10/13/16 11:52: Bedside Glucose (Misc Panel) 210H CBC/BMP Laboratory Tests 10/12/16 17:58 Red Blood Count 4.60, Mean Corpuscular Volume 96.7 H, Mean Corpuscular Hemoglobin 31.1, Mean Corpuscular Hemoglobin Concent 32.2, Red Cell Distribution Width 13.2, Neutrophils (%) (Auto) 76.7 H, Lymphocytes (%) (Auto) 15.5 L, Monocytes (%) (Auto) 5.5 H, Eosinophils (%) (Auto) 1.1, Basophils (%) ( Auto) 0.3, Neutrophils # (Auto) 12.2 H, Lymphocytes # (Auto) 2.6, Monocytes # ( Auto) 0.9 H, Eosinophils # (Auto) 0.2, Basophils # (Auto) 0.0 10/13/16 04:51 Red Blood Count 4.71, Mean Corpuscular Volume 98.1 H, Mean Corpuscular Hemoglobin 30.9, Mean Corpuscular Hemoglobin Concent 31.5 L, Red Cell Distribution Width 13.3, Neutrophils (%) (Auto) 93.5 H, Lymphocytes (%) (Auto) 3.5 L, Monocytes (%) (Auto) 2.3, Eosinophils (%) (Auto) 0.4, Basophils (%) (Auto ) 0.2, Neutrophils # (Auto) 15.8 H, Lymphocytes # (Auto) 0.6 L, Monocytes # ( Auto) 0.4, Eosinophils # (Auto) 0.1, Basophils # (Auto) 0.0 Microbiology Microbiology 10/12/16 Blood Culture, Received Pending 10/12/16 Blood Culture, Received Pending 10/12/16 Respiratory Virus Panel (PCR) ([facility]) - Final, Complete Human Rhinovirus/Enterovirus CAT GOLDMAN MD October 13, 2016 16:46
[2016-10-13] MEDS: ATORVASTATIN 20 MG TAB PO SCH (20:01)
[2016-10-13] MEDS: SERTRALINE 100 MG TAB PO SCH (20:02)
[2016-10-13] MEDS ORDERED: SLF 3 ML SYR IV PRN (22:30)
[2016-10-14] MEDS: methylPREDNISolone INJ 125 MG/2 ML VIAL (J2930) IV SCH ×3 (00:06→23:57)
[2016-10-14] MEDS: IPRATROPIUM 0.02% SOLN 0.5MG/2.5 ML NEB NEB SCH ×4 (00:13→19:03)
[2016-10-14] MEDS: ADVAIR DISKUS 250/50 INH PWD INH SCH ×3 (00:13→21:21)
[2016-10-14] MEDS: LEVALBUTEROL 1.25 MG/0.5 ML CONCENTRATE NEB NEB SCH ×4 (00:13→19:02)
[2016-10-14 05:20] VITALS: BP 138/95
[2016-10-14] MEDS: SLF 3 ML SYR IV SCH ×3 (05:21→21:22)
[2016-10-14] MEDS: LEVOTHYROXINE 0.05 MG TAB (50 MCG) PO SCH (05:21)
[2016-10-14 06:01] LABS: BASO % 0.1 % (0.0-1.0); LARGE UNSTAINED CELL % 0.2 % (0.0-4.0); LYMPH # 0.7 K/mm3 (1.5-4.5); LYMPH % 3.7 % (24.0-44.0); MEAN CORPUSCULAR HEMOGLOBIN 31.2 pg (27.0-33.0); MEAN CORPUSCULAR HGB CONC 32.1 g/dl (32.0-36.5); MEAN CORPUSCULAR VOLUME 97.2 fl (80.0-96.0); MONO # 0.5 K/mm3 (0.0-0.8); MONO % 2.7 % (0.0-5.0); NEUTROPHILS # 16.5 K/mm3 (1.8-7.7); NEUTROPHILS % 93.3 % (36.0-66.0); PLATELET COUNT, AUTOMATED 420 k/mm3 (150-450); RED CELL DISTRIBUTION WIDTH 13.3 % (11.5-14.5); WHITE BLOOD COUNT 17.7 K/mm3 (4.0-10.0)
[2016-10-14 06:17] LABS: ANION GAP 4 MEQ/L (8-16); BLOOD UREA NITROGEN 14 MG/DL (7-18); CALCIUM LEVEL 8.3 MG/DL (8.5-10.1); CARBON DIOXIDE LEVEL 39 MEQ/L (21-32); CHLORIDE LEVEL 96 MEQ/L (98-107); CREATININE FOR GFR 0.59 MG/DL (0.55-1.02); GLOMERULAR FILTRATION RATE > 60.0 (>51); GLUCOSE, FASTING 237 MG/DL (70-105); POTASSIUM SERUM 4.3 MEQ/L (3.5-5.1); SODIUM LEVEL 139 MEQ/L (136-145)
[2016-10-14 08:00] VITALS: BP 161/72
[2016-10-14] MEDS: TIOTROPIUM INHALER/CAPSULE (SPIRIVA) INH SCH (08:00)
[2016-10-14] MEDS ORDERED: TIOTROPIUM INHALER/CAPSULE (SPIRIVA) INH SCH (08:00)
[2016-10-14] MEDS: HumaLOG INSULIN (NovoLOG) PER UNIT SC SCH ×4 (08:20→21:25)
[2016-10-14] MEDS: ENOXAPARIN 40 MG/0.4 ML SYRINGE (J1650) SC SCH ×2 (08:21→09:00)
[2016-10-14] MEDS: lamoTRIgine 100MG TAB PO SCH ×2 (08:21→21:22)
[2016-10-14] MEDS: DULoxetine 30 MG CAP (CYMBALTA) PO SCH ×2 (08:21→21:22)
[2016-10-14] MEDS: GABAPENTIN 400 MG CAP PO SCH ×3 (08:21→21:22)
[2016-10-14] MEDS: OMEPRAZOLE 20 MG CAP PO SCH (08:21)
[2016-10-14] MEDS: NAPROXEN 250 MG TAB PO SCH ×2 (08:22→21:23)
[2016-10-14] MEDS: FLUTICASONE PROP 0.05% NASAL SPRAY 16 GM (FLONASE) SCH (08:22)
[2016-10-14] MEDS: ASPIRIN 81 MG ENTERIC TAB PO SCH (08:25)
[2016-10-14] MEDS: BISOPROLOL FUM 2.5 MG PER 1/2TAB PO SCH (08:25)
[2016-10-14] MEDS ORDERED: ADVAIR DISKUS 250/50 INH PWD INH SCH (09:00)
[2016-10-14] MEDS: traMADol 50 MG TAB PO PRN ×2 (09:41→21:52)
--- NOTE | 2016-10-14 15:20 | IPNPDOC ---
Text Note Date of Service The patient was seen on 10/14/16. NOTE Subjective: Patient was seen and examined at the bedside. She notes that her breathing has improved, but she is still having some shortness of breath. Her oxygen requirement is now at baseline. She is anxious to get back home. Objective: Vitals (See below) General: Lying in bed, no acute distress, comfortable, AAOx3 HEENT: NC, AT CVS: RRR, +S1S2 Lungs: Fair air entry b/l, positive diffuse expiratory wheezing bilaterally - mild Abdomen: Soft, ND, NT, +BSx4 Extremities: +PPx4, - Edema, - Calf tenderness Assessment and plan: 1. SOB / Wheeze - likely 2/2 Acute COPD exacerbation - likely 2/2 Viral illness - 22/ Rhinovirus and Enterovirus - Symptoms of SOB / Wheeze are improving, but not completely resolved - Physical with expiratory wheezing - Oxygen requirement at baseline - CXR without any acute infiltrates - c/w Solumedrol (will taper) - c/w Duoneb 2. Chronic hypoxic respiratory failure - 2/2 COPD - on 2L of oxygen at baseline 3. CAD / LA - EKG without ischemic changes - troponins negative - c/w ASA, Bisoprolol, Lisinopril, Atorvastatin 4. Depression - c/w Duloxetine and Sertralien 5. Chronic musculoskeletal pain / Neuropathy - c/w Gabapentin 6. HTN - BP moderately controlled - c/w Labetolol and Lisinopril 7. Hypothyroidism - c/w Levothyroxine 8. DLP - c/w Atorvastatin 9. GERD - c/w omeprazole 10. DVT prophylaxis - c/w Lovenox VS,Fishbone, I+O VS, Fishbone, I+O Laboratory Tests 10/14/16 05:31 Red Blood Count 4.60, Mean Corpuscular Volume 97.2 H, Mean Corpuscular Hemoglobin 31.2, Mean Corpuscular Hemoglobin Concent 32.1, Red Cell Distribution Width 13.3, Neutrophils (%) (Auto) 93.3 H, Lymphocytes (%) (Auto) 3.7 L, Monocytes (%) (Auto) 2.7, Eosinophils (%) (Auto) 0.0, Basophils (%) (Auto ) 0.1, Neutrophils # (Auto) 16.5 H, Lymphocytes # (Auto) 0.7 L, Monocytes # ( Auto) 0.5, Eosinophils # (Auto) 0.0, Basophils # (Auto) 0.0, Calcium Level 8.3 L Vital Signs Date Time Temp Pulse Resp B/P (MAP) Pulse Ox O2 Delivery O2 Flow Rate FiO2 10/14/16 10:11 20 10/14/16 09:41 Nasal Cannula 2.0 10/14/16 08:25 79 161/72 10/14/16 08:00 98.9 94 10/13/16 00:00 96 I&O- Last 24 Hours up to 6 AM 10/14/16 06:00 Intake Total 1260 ml Output Total 1100 ml Balance 160 ml DANELLE KHAN MD October 14, 2016 15:20
[2016-10-14 16:00] VITALS: BP 117/66
[2016-10-14 18:10] VITALS: BP 154/82
[2016-10-14] MEDS: SERTRALINE 100 MG TAB PO SCH (21:22)
[2016-10-14] MEDS: ATORVASTATIN 20 MG TAB PO SCH (21:23)
[2016-10-14 22:00] VITALS: BP 135/63
[2016-10-14] MEDS: LEVALBUTEROL 1.25 MG/0.5 ML CONCENTRATE NEB NEB PRN (23:55)
[2016-10-15] MEDS: IPRATROPIUM 0.02% SOLN 0.5MG/2.5 ML NEB NEB SCH ×2 (01:12→07:40)
[2016-10-15] MEDS: LEVALBUTEROL 1.25 MG/0.5 ML CONCENTRATE NEB NEB SCH ×2 (01:12→07:40)
[2016-10-15] MEDS: LEVALBUTEROL 1.25 MG/0.5 ML CONCENTRATE NEB NEB PRN (03:43)
[2016-10-15] MEDS: LEVOTHYROXINE 0.05 MG TAB (50 MCG) PO SCH (05:52)
[2016-10-15] MEDS: SLF 3 ML SYR IV SCH (05:53)
[2016-10-15 06:00] VITALS: BP 152/79
[2016-10-15 06:18] LABS: BASO % 0.1 % (0.0-1.0); EOS % 0.1 % (0.0-3.0); LARGE UNSTAINED CELL # 0.1 K/mm3 (0.0-0.4); LARGE UNSTAINED CELL % 0.4 % (0.0-4.0); LYMPH # 0.7 K/mm3 (1.5-4.5); LYMPH % 5.4 % (24.0-44.0); MEAN CORPUSCULAR HEMOGLOBIN 31.4 pg (27.0-33.0); MEAN CORPUSCULAR HGB CONC 32.3 g/dl (32.0-36.5); MEAN CORPUSCULAR VOLUME 97.2 fl (80.0-96.0); MONO # 0.5 K/mm3 (0.0-0.8); MONO % 4.1 % (0.0-5.0); NEUTROPHILS # 11.7 K/mm3 (1.8-7.7); NEUTROPHILS % 89.9 % (36.0-66.0); PLATELET COUNT, AUTOMATED 373 k/mm3 (150-450); RED CELL DISTRIBUTION WIDTH 13.2 % (11.5-14.5); WHITE BLOOD COUNT 13.1 K/mm3 (4.0-10.0)
[2016-10-15 06:29] LABS: ANION GAP 4 MEQ/L (8-16); BLOOD UREA NITROGEN 17 MG/DL (7-18); CALCIUM LEVEL 7.9 MG/DL (8.5-10.1); CARBON DIOXIDE LEVEL 39 MEQ/L (21-32); CHLORIDE LEVEL 96 MEQ/L (98-107); CREATININE FOR GFR 0.59 MG/DL (0.55-1.02); GLOMERULAR FILTRATION RATE > 60.0 (>51); GLUCOSE, FASTING 261 MG/DL (70-105); POTASSIUM SERUM 4.4 MEQ/L (3.5-5.1); SODIUM LEVEL 139 MEQ/L (136-145)
[2016-10-15] MEDS: ADVAIR DISKUS 250/50 INH PWD INH SCH (07:40)
[2016-10-15] MEDS: TIOTROPIUM INHALER/CAPSULE (SPIRIVA) INH SCH (07:40)
[2016-10-15] MEDS: ENOXAPARIN 40 MG/0.4 ML SYRINGE (J1650) SC SCH ×2 (07:54→07:59)
[2016-10-15] MEDS: HumaLOG INSULIN (NovoLOG) PER UNIT SC SCH ×2 (07:54→12:07)
[2016-10-15] MEDS: FLUTICASONE PROP 0.05% NASAL SPRAY 16 GM (FLONASE) SCH (07:55)
[2016-10-15] MEDS: DULoxetine 30 MG CAP (CYMBALTA) PO SCH (07:55)
[2016-10-15] MEDS: ASPIRIN 81 MG ENTERIC TAB PO SCH (07:55)
[2016-10-15] MEDS: OMEPRAZOLE 20 MG CAP PO SCH (07:55)
[2016-10-15 07:56] VITALS: BP 152/79
[2016-10-15] MEDS: BISOPROLOL FUM 2.5 MG PER 1/2TAB PO SCH (07:56)
[2016-10-15] MEDS: NAPROXEN 250 MG TAB PO SCH (07:56)
[2016-10-15] MEDS: lamoTRIgine 100MG TAB PO SCH (07:56)
[2016-10-15] MEDS: GABAPENTIN 400 MG CAP PO SCH (07:56)
[2016-10-15] MEDS ORDERED: PRED10TA PO (09:45)
--- NOTE | 2016-10-15 10:39 | DS.PDOC ---
Discharge Summary General Date of Admission October 12, 2016 at 19:30 Date of Discharge 10/15/16 Primary Care Physician: ELIGIO CARSON DO Discharge Summary PROCEDURES PERFORMED DURING STAY: None. ADMITTING DIAGNOSES: 1. . COPD exacerbation secondary to rhinovirus/enterovirus DISCHARGE DIAGNOSES: 1. . COPD exacerbation secondary to rhinovirus/enterovirus COMPLICATIONS/CHIEF COMPLAINT: Copd Exacerbation. HISTORY OF PRESENT ILLNESS: . 60-year-old female with a history of chronic hypoxic respiratory failure on home oxygen, chronic hypercarbia, baseline carbon dioxide ( CO2) 60-70, coronary artery disease (CAD), myocardial infarction (MD) in the past, anxiety, depression, fibromyalgia on chronic gabapentin, chronic musculoskeletal pain, muscle spasm, reflux, hypertension, hypothyroidism, depression without psychotic features, adrenal nodule on the right, diabetes, obstructive sleep apnea, recently discharged with Trilogy in early September 2016, hiatal hernia, migraines, overactive bladder, and scoliosis, who presented to the ER with the chief complaint of worsening shortness of breath. The patient states that she started to feel short of breath even at rest. During this time, the patient states that she has been having a cough productive of yellowish sputum. In addition, the patient states she's been having fevers, chills, fatigue, muscle aches, and overall malaise. She denied any chief complaints of chest pain, palpitations, abdominal pain, orthopnea, lower external swelling, or any nausea/ vomiting/diarrhea. The patient was admitted to the hospitalist service with a diagnosis of COPD exacerbation secondary to human rhinovirus and enterovirus. During hospitalization, the patient was treated with IV steroids, nebulizer treatments, and supplemental oxygenation to keep her saturations in the 88-92% range. The patient was managed with supportive care as well. Over the last 48, the patient states that her respiratory status has significantly improved. At this time, the patient states that she is eager to return home. I've advised the patient to continue with the tapering dose of steroids to be completed over the next 10 days. In addition, I've advised the patient to follow-up with her earth moving machine operator within the next 2-3 weeks. She is also to follow up with her primary care physician within 7 days. If her symptoms were to return and worsen, the patient has been advised to return to the ER. DISCHARGE MEDICATIONS: Please see below. ALLERGIES: Please see below. PHYSICAL EXAMINATION ON DISCHARGE: VITAL SIGNS: Please see below. General Exam: Positive: Alert, Cooperative, No Acute Distress ENT Exam: Positive: Atraumatic, Mucous membr. moist/pink Neck Exam: Negative: JVD Chest Exam: Clear to auscultation bilaterally Positive: Diminished, Negative: Rales Heart Exam: Positive: Rate Normal, Normal S1, Normal S2 Abdomen Exam: Positive: Soft, Negative: Tenderness Extremity Exam: Negative: Tenderness, Swelling Psych Exam: Positive: Oriented x 3 LABORATORY DATA: Please see below. IMAGING: Clinical: Cough and dyspnea. Technique: PA and lateral. Comparison: 06/13/2016. Findings: Mediastinum and cardiac silhouette are stable. Lung cherry demonstrate stable mid to lower lobe interstitial changes. Subtle superimposed atelectasis cannot be excluded. No focal consolidation, effusion, or pneumothorax. Skeletal structures intact. Impression: Chronic stable changes. Cannot exclude trace basilar atelectasis. PROGNOSIS: Medically stable ACTIVITY: As tolerated. DIET: . 2 g low sodium diet DISCHARGE PLAN: DISPOSITION: . Home DISCHARGE INSTRUCTIONS: 1. . Follow-up with primary care physician within one week 2. . Follow-up with earth moving machine operator within 2-3 weeks DISCHARGE CONDITION: Stable. TIME SPENT ON DISCHARGE: Greater than 30 minutes. Vital Signs/I&Os Vital Signs Date Time Temp Pulse Resp B/P (MAP) Pulse Ox O2 Delivery O2 Flow Rate FiO2 10/15/16 07:56 69 152/79 10/15/16 06:00 97.6 19 90 Nasal Cannula 2.0 10/13/16 00:00 96 I&O- Last 24 Hours up to 6 AM 10/15/16 06:00 Intake Total 1200 ml Output Total 2400 ml Balance -1200 ml Laboratory Data Labs 24H Laboratory Tests 2 10/14/16 11:55: Bedside Glucose (Misc Panel) 101 10/14/16 16:49: Bedside Glucose (Misc Panel) 219H 10/14/16 20:30: Bedside Glucose (Misc Panel) 350H 10/15/16 06:03: White Blood Count 13.1H, Red Blood Count 4.39, Hemoglobin 13.8, Hematocrit 42.6 , Mean Corpuscular Volume 97.2H, Mean Corpuscular Hemoglobin 31.4, Mean Corpuscular Hemoglobin Concent 32.3, Red Cell Distribution Width 13.2, Platelet Count 373, Neutrophils (%) (Auto) 89.9H, Lymphocytes (%) (Auto) 5.4L, Monocytes (%) (Auto) 4.1, Eosinophils (%) (Auto) 0.1, Basophils (%) (Auto) 0.1, Neutrophils # (Auto) 11.7H, Lymphocytes # (Auto) 0.7L, Monocytes # (Auto) 0.5, Eosinophils # (Auto) 0.0, Basophils # (Auto) 0.0, Large Unclassified Cells % 0.4 , Large Unclassified Cells # 0.1, Anion Gap 4L, Glomerular Filtration Rate > 60.0, Blood Urea Nitrogen 17, Creatinine 0.59, Sodium Level 139, Potassium Level 4.4, Chloride Level 96L, Carbon Dioxide Level 39H, Calcium Level 7.9L CBC/BMP Laboratory Tests 10/15/16 06:03 Red Blood Count 4.39, Mean Corpuscular Volume 97.2 H, Mean Corpuscular Hemoglobin 31.4, Mean Corpuscular Hemoglobin Concent 32.3, Red Cell Distribution Width 13.2, Neutrophils (%) (Auto) 89.9 H, Lymphocytes (%) (Auto) 5.4 L, Monocytes (%) (Auto) 4.1, Eosinophils (%) (Auto) 0.1, Basophils (%) (Auto ) 0.1, Neutrophils # (Auto) 11.7 H, Lymphocytes # (Auto) 0.7 L, Monocytes # ( Auto) 0.5, Eosinophils # (Auto) 0.0, Basophils # (Auto) 0.0, Calcium Level 7.9 L FSBS Laboratory Tests Test 10/14/16 11:55 10/14/16 16:49 10/14/16 20:30 Range/Units Bedside Glucose (Misc Panel) 101 219 350 70-105 MG/DL Microbiology Microbiology 10/12/16 Blood Culture - Preliminary, Resulted No Growth after 48 hours. All Specime... 10/12/16 Blood Culture - Preliminary, Resulted No Growth after 48 hours. All Specime... 10/12/16 Respiratory Virus Panel (PCR) ([facility]) - Final, Complete Human Rhinovirus/Enterovirus Discharge Medications Scheduled (Flonase Allergy Relief) 50 Mcg/Act Spr, 1 SPRAY NA DAILY, (Reported) Aspirin (Aspirin EC) 81 Mg Tabec, 81 MG PO DAILY, (Reported) Atorvastatin Calcium (Lipitor) 80 Mg Tab, 80 MG PO QHS, (Reported) Bisoprolol Fumarate (Bisoprolol Fumarate) 5 Mg Tab, 2.5 MG PO DAILY, (Reported) Duloxetine Hcl (Duloxetine HCl) 60 Mg Cap, 60 MG PO DAILY, (Reported) Duloxetine Hcl (Duloxetine HCl) 30 Mg Cap, 30 MG PO QHS, (Reported) Gabapentin (Gabapentin) 800 Mg Tab, 800 MG PO TID, (Reported) TOOK ALL THREE DOSES TODAY 10/12 Lamotrigine (LaMICtal) 100 Mg Tab, 100 MG PO BID, (Reported) Levothyroxine Sodium (Synthroid) 50 Mcg Tab, 50 MCG PO DAILY, (Reported) Metformin Hydrochloride (Metformin HCl) 1,000 Mg Tab, 1,000 MG PO BID, (Reported ) Naproxen Sodium (Naproxen Sodium) 500 Mg Tab, 500 MG PO BID, (Reported) Omeprazole (Omeprazole) 40 Mg Cap, 40 MG PO DAILY, (Reported) Prednisone (Prednisone) 10 Mg Tab, 10 MG PO ASDIRECTED Salmeterol/Fluticasone (Advair Diskus 250-50 Mcg/Dose) 14 Puff/Inhaler Aerp, 1 PUFF INH BID, (Reported) Sertraline HCl (Sertraline HCl) 100 Mg Tab, 100 MG PO QHS, (Reported) Tiotropium [place] Monohydrate (Spiriva Handihaler) 18 Mcg Cap, 1 INHALATION INH DAILY, (Reported) Scheduled PRN Albuterol Sulfate (Ventolin Hfa) 200 Puff/8 Gm Aers, 2 PUFF INH Q4H PRN for SHORTNESS OF BREATH, (Reported) Albuterol Sulfate (Albuterol Sulfate) 2.5 Mg/3 Ml Nebu, 2.5 MG INH Q4H PRN for SHORTNESS OF BREATH, (Reported) Menthol (Bengay Vanishing Scent) 2.5 % Gel, 1 DOSE EXT QID PRN for PAIN, ( Reported) PLACES ON LOWER BACK AND HIPS Allergies Coded Allergies: No Known Drug Allergy (Verified Allergy, Unknown, 08/30/12) CAT GOLDMAN MD October 15, 2016 10:39
[2016-10-15] MEDS: methylPREDNISolone INJ 125 MG/2 ML VIAL (J2930) IV SCH (12:07)
== END 2016-10-15 13:22 | disposition home health service (06) | DRG 191 ==
LOC: M ED 19:02 → M ED INP 19:30 → M PCU 21:59 → M MSPAV 10-14 18:05
PROVIDERS: ADMIT General Practice; ATTEND Internal Medicine
DX: J44.1 Chronic obstructive pulmonary disease with (acute) exacerbation (principal); J96.11 Chronic respiratory failure with hypoxia; Z79.899 Other long term (current) drug therapy; Z79.82 Long term (current) use of aspirin; B97.89 Other viral agents as the cause of diseases classified elsewhere; B97.10 Unspecified enterovirus as the cause of diseases classified elsewhere; I25.10 Atherosclerotic heart disease of native coronary artery without angina pectoris; I25.2 Old myocardial infarction; F41.9 Anxiety disorder, unspecified; F32.9 Major depressive disorder, single episode, unspecified; M79.7 Fibromyalgia; K21.9 Gastro-esophageal reflux disease without esophagitis; I10 Essential (primary) hypertension; G47.33 Obstructive sleep apnea (adult) (pediatric); E11.9 Type 2 diabetes mellitus without complications; E27.8 Other specified disorders of adrenal gland; E03.9 Hypothyroidism, unspecified; K44.9 Diaphragmatic hernia without obstruction or gangrene; G43.909 Migraine, unspecified, not intractable, without status migrainosus; Z87.891 Personal history of nicotine dependence

== ENCOUNTER 2016-11-11 05:54 | Inpatient (IN) | payer MEDICARE, MEDICAID ==
[2016-11-11] VITALS (9 sets, daily range): BP systolic 131–152; BP diastolic 66–87; O2SAT 86–89
[~2016-11-11] VITALS: Ht 165.1 cm; Wt 93.2 kg
[2016-11-11] MEDS: IPRATROPIUM 0.5MG/ALBUTEROL 2.5MG INH SOL UD 3ML (DUONEB)(J7620) NEB PRN ×2 (06:43→06:53)
[2016-11-11 06:46] LABS: ABG HCO3 31.7 MEQ/L (22.0-26.0); ABG STANDARD HCO3 27.1 MEQ/L (22.0-26.0); ABG TOTAL CO2 33.8 MEQ/L (22.0-29.0); ABG pH (ARTERIAL) 7.284 UNITS (7.350-7.450)
[2016-11-11 06:49] LABS: ABG PARTIAL PRESSURE CO2 68.4 mmHg (35.0-45.0)
[2016-11-11 06:53] LABS: BASO % 0.3 % (0.0-1.0); EOS # 0.1 K/mm3 (0.0-0.50); EOS % 1.6 % (0.0-3.0); LARGE UNSTAINED CELL # 0.1 K/mm3 (0.0-0.4); LARGE UNSTAINED CELL % 1.2 % (0.0-4.0); LYMPH # 1.8 K/mm3 (1.5-4.5); LYMPH % 18.9 % (24.0-44.0); MEAN CORPUSCULAR HEMOGLOBIN 30.5 pg (27.0-33.0); MEAN CORPUSCULAR VOLUME 95.5 fl (80.0-96.0); MONO # 0.6 K/mm3 (0.0-0.8); MONO % 6.7 % (0.0-5.0); NEUTROPHILS # 6.2 K/mm3 (1.8-7.7); NEUTROPHILS % 71.2 % (36.0-66.0); PLATELET COUNT, AUTOMATED 421 k/mm3 (150-450); RED CELL DISTRIBUTION WIDTH 14.2 % (11.5-14.5); WHITE BLOOD COUNT 8.7 K/mm3 (4.0-10.0)
[2016-11-11 07:04] LABS: ANION GAP 4 MEQ/L (8-16); BLOOD UREA NITROGEN 14 MG/DL (7-18); CALCIUM LEVEL 8.4 MG/DL (8.5-10.1); CARBON DIOXIDE LEVEL 33 MEQ/L (21-32); CHLORIDE LEVEL 106 MEQ/L (98-107); CREATININE FOR GFR 0.45 MG/DL (0.55-1.02); GLOMERULAR FILTRATION RATE > 60.0 (>51); GLUCOSE, FASTING 149 MG/DL (70-105); POTASSIUM SERUM 4.5 MEQ/L (3.5-5.1); SODIUM LEVEL 143 MEQ/L (136-145)
--- NOTE | 2016-11-11 07:31 | REP ---
PA and lateral chest: Comparison is 10/12/2016. The lung cherry are clear. The cardiac size is normal The wesly, mediastinum, and bony thorax are unremarkable. Impression: Negative PA and lateral chest. There is no interval change. Signed by Brigido Hinton MD 11/11/2016 07:22 A
[2016-11-11 08:07] LABS: ABG BASE EXCESS 3.9 (-2.0-2.0); ABG HCO3 32.7 MEQ/L (22.0-26.0); ABG PARTIAL PRESSURE CO2 70.1 mmHg (35.0-45.0); ABG PARTIAL PRESSURE O2 93.2 mmHg (75.0-100.0); ABG STANDARD HCO3 27.9 MEQ/L (22.0-26.0); ABG TOTAL CO2 34.9 MEQ/L (22.0-29.0); ABG pH (ARTERIAL) 7.287 UNITS (7.350-7.450)
[2016-11-11] MEDS ORDERED: PRED5TA PO (08:18)
[2016-11-11] MEDS ORDERED: LISI2.5T3 PO (08:18)
[2016-11-11] MEDS ORDERED: CETI5TAB2 PO (08:18)
--- NOTE | 2016-11-11 09:29 | ECGEPIP ---
Stationary ECG Study [facility] - ED Test Date: 2016-11-11 Pat Name: MIGUEL NAQVI Department: Room: - Gender: F Game Engineer: muriel : 1955 Requested By: MAYELA Culp Order Number: [id number] Reading MD: Vidya Villavicencio Measurements Intervals [place] Rate: 83 P: 60 WV: 151 QRS: 47 QRSD: 96 T: 67 QT: 378 QTc: 447 Interpretive Statements SINUS RHYTHM DELAYED R PROGRESSION LOW VOLTAGE LIMB INCREASED RATE 10/13/16 Electronically Signed On 11-11-2016 9:28:37 EDT by Vidya Villavicencio
[2016-11-11] MEDS ORDERED: DEXTROSE 50% 50 ML SYRINGE IV PRN (09:45)
[2016-11-11] MEDS ORDERED: GLUCAGON FOR INJ 1 MG VIAL (J1610) SC PRN (09:45)
[2016-11-11] MEDS ORDERED: GLUCOSE 4 GM CHEW TABLET PO PRN (09:45)
[2016-11-11] MEDS ORDERED: ONDANSETRON 4MG/2ML VIAL (J2405) IV PRN (09:45)
[2016-11-11] MEDS ORDERED: IPRATROPIUM 0.5MG/ALBUTEROL 2.5MG INH SOL UD 3ML (DUONEB)(J7620) NEB PRN (10:00)
[2016-11-11] MEDS: methylPREDNISolone INJ 125 MG/2 ML VIAL (J2930) IV SCH ×2 (10:42→17:18)
[2016-11-11] MEDS: ASPIRIN 81 MG ENTERIC TAB PO SCH (10:42)
[2016-11-11] MEDS ORDERED: FUROSEMIDE 40 MG/4 ML VIAL (J1940) IV ONE (10:45)
[2016-11-11] MEDS: LEVOTHYROXINE 50MCG TABLET (0.05MG) PO SCH (11:36)
[2016-11-11] MEDS: FLUTICASONE PROP 0.05% NASAL SPRAY 16 GM (FLONASE) SCH (11:36)
[2016-11-11] MEDS: GABAPENTIN 400 MG CAP PO SCH ×3 (11:36→20:56)
[2016-11-11] MEDS: AZITHROMYCIN INJ 500 MG, VIAL MATE ADAPTER 1 EACH in D5W 250 ML IV SCH (11:37)
[2016-11-11] MEDS: OMEPRAZOLE 20 MG CAP PO SCH (11:38)
[2016-11-11] MEDS: BISOPROLOL FUM 2.5 MG PER 1/2TAB PO SCH (11:39)
[2016-11-11] MEDS: SENOKOT S TAB PO SCH ×2 (11:39→20:58)
[2016-11-11] MEDS: lamoTRIgine 100MG TAB PO SCH ×2 (11:39→20:55)
[2016-11-11] MEDS: DULoxetine 30 MG CAP (CYMBALTA) PO SCH ×2 (11:39→20:55)
[2016-11-11] MEDS: LISINOPRIL 5 MG TAB PO SCH (11:40)
[2016-11-11] MEDS: CETIRIZINE (ZyrTEC) 10 MG TAB PO SCH (11:40)
[2016-11-11] MEDS ORDERED: cefTRIAXone SOD 2 GM in D5W MINI-BAG PLUS 50 ML IV SCH (12:00)
[2016-11-11] MEDS: IPRATROPIUM 0.5MG/ALBUTEROL 2.5MG INH SOL UD 3ML (DUONEB)(J7620) NEB SCH ×3 (12:13→20:00)
[2016-11-11] MEDS: ADVAIR DISKUS 250/50 INH PWD INH SCH ×2 (12:14→21:18)
[2016-11-11] MEDS: TIOTROPIUM INHALER/CAPSULE (SPIRIVA) INH SCH (12:14)
[2016-11-11] MEDS: HumaLOG INSULIN (NovoLOG) PER UNIT SC SCH ×3 (12:35→20:56)
[2016-11-11] MEDS: ACETAMINOPHEN TAB 650MG DOSE (2X325MG) PO PRN ×2 (12:41→20:54)
[2016-11-11] MEDS: HEPARIN SOD (PORCINE) 5000 UNITS/ML VIAL SC SCH ×2 (14:50→20:55)
--- NOTE | 2016-11-11 15:32 | HPE ---
DATE OF ADMISSION: 11/11/2016 PRIMARY CARE PROVIDER: SANKET Ly CHIEF COMPLAINT: Shortness of breath. HISTORY OF PRESENT ILLNESS: This is a 60-year-old female patient with underlying medical history of chronic hypoxic respiratory failure on oxygen and steroid-dependent, chronic hypercarbia, baseline carbon dioxide level at 60-70, coronary artery disease, myocardial infarction (MT) in the past, anxiety, depression, fibromyalgia on chronic gabapentin, chronic musculoskeletal pain, muscle spasm, reflux, hypertension, hypothyroidism, depression without psychotic features, adrenal nodules on the right, diabetes type 2, obstructive sleep apnea , recently discharged on Trilogy September 2016, was re-admitted 10/12/2016, hiatal hernia, migraine, overactive bladder, scoliosis, currently presented with progressively worsening shortness of breath over the past one day. The patient stated that since discharge in September 2016, the patient has not really gotten better, not really compliant with Trilogy. The patient reported chills with cough productive of yellow sputum and white sputum. No nausea or vomiting. Denies any chest pain or sick contact. Denies any palpitations, abdominal pain, diarrhea, or constipation. Reported similar symptoms to previous. ALLERGIES: No known drug allergies reported. PAST MEDICAL HISTORY: 1. Chronic hypoxic hypercarbic respiratory failure, on oxygen at home. 2. Obstructive sleep apnea, on Trilogy but not compliant. 3. Chronic hypercarbia. 4. Coronary artery disease. 5. Myocardial infarction (MT). 6. Hypothyroidism. 7. Depression. 8. Right adrenal nodule. 9. Diabetes type 2. 10. Hiatal hernia. 11. Migraines. 12. Overactive bladder. 13. Scoliosis. 14. Chronic obstructive pulmonary disease (COPD). 15. Anxiety. 16. Depression. 17. Fibromyalgia. 18. Degenerative joint disease. 19. Chronic musculoskeletal pain. 20. Gastroesophageal reflux disease (GERD). 21. Muscle spasm. 22. Hypertension. PAST SURGICAL HISTORY: 1. Cholecystectomy. 2. Cardiac catheterization. No stent. 3. Breast biopsy. 4. Dilation and curettage. 5. Tubal ligation. 6. Tonsillectomy. 7. Exploratory laparotomy. FAMILY HISTORY: Denies family history of premature coronary artery disease. SOCIAL HISTORY: Smoked one pack per day for 40 years, quit in 2016. No alcohol abuse or illicit drug use. REVIEW OF SYSTEMS: Reported shortness of breath. All other review of systems are negative. HOME MEDICATIONS: - Ventolin inhaler every four hours as needed - albuterol nebulizer every four hours as needed - aspirin 81 mg by mouth daily - Lipitor 80 mg by mouth at bedtime - bisoprolol 2.5 mg by mouth daily - Zyrtec 5 mg by mouth daily - Cymbalta 60 mg by mouth daily and 30 mg by mouth at bedtime - Flonase intranasal daily - gabapentin 800 mg by mouth three times a day - lamotrigine 100 mg by mouth twice a day - Synthroid 50 mcg by mouth daily - lisinopril 2.5 mg by mouth daily - Bengay as needed - metformin 1000 mg by mouth twice a day - naproxen 500 mg by mouth twice a day - omeprazole 40 mg by mouth daily - prednisone 5 mg by mouth daily - Advair Diskus 250/50 mcg inhalation twice a day - sertraline 100 mg by mouth at bedtime - Spiriva inhalation once daily PHYSICAL EXAMINATION: VITAL SIGNS: Temperature 97.6, pulse 87, respirations 20, blood pressure 152/82, pulse oximetry 93% on one liter nasal cannula. GENERAL: The patient is lethargic, alert and oriented times three, obese. HEENT: Normocephalic, atraumatic. PULMONARY: Bilateral expiratory wheeze, fine rales bibasilar. ABDOMEN: Obse, soft, nontender, nondistended. EXTREMITIES: No edema of bilateral lower extremities. Chest x-ray: No focal infiltrates or consolidations. LABORATORY DATA: WBC 8.7, hemoglobin and hematocrit 13.5/42.1, platelets 421. Chemistry: Sodium 143, potassium 4.5, chloride 106, bicarbonate 33, BUN 14, creatinine 0.45, cardiac enzymes negative times one. AB.29, 70, 93, 32. EKG: Sinus rhythm. No significant ST segment elevations. ASSESSMENT AND PLAN: This is a 60-year-old female patient with underlying medical history of chronic hypoxic hypercarbic respiratory failure, chronic obstructive pulmonary disease (COPD), oxygen-dependent, steroid-dependent, coronary artery disease with myocardial infarction (MT), anxiety, depression, fibromyalgia, musculoskeletal pain, gastroesophageal reflux disease (GERD), hypertension, hypothyroidism, depression without psychotic features, adrenal nodules, diabetes type 2, obstructive sleep apnea, hiatal hernia, overactive bladder, migraine, scoliosis, admitted for acute COPD exacerbation. 1. Acute on chronic hypercarbic respiratory failure, secondary to COPD exacerbation. The patient is steroid and oxygen dependent, given a dose of Rocephin in the emergency room and azithromycin. We will continue azithromycin for antiinflammatory effect. The patient's C-reactive protein is negative. Followup respiratory panel, sputum cultures, blood cultures. Solu-Medrol, DuoNebs, Spiriva, Advair, repeat arterial blood gas (ABG). The patient refused bilevel positive airway pressure (BiPAP). Code status discussed. Currently is DO NOT RESUSCITATE (DNR)/DO NOT INTUBATE (DNI). 2. History of coronary artery disease. Cardiac enzymes negative times two. EKG is within normal limits. Aspirin, statin, Zebeta, lisinopril continued. 3. GERD. Continue proton pump inhibitor (PPI). 4. Musculoskeletal pain and fibromyalgia. Continue current regimen. 5. Depression. Continue current regimen. 6. Diabetes, type 2. Followup fingersticks, adjust as needed, insulin as per protocol, holding oral medications. 7. Hypertension. Lisinopril has been increased. Continue Zebeta. One dose of Lasix has been given. 8. Hypothyroidism. Continue Synthroid. 9. Dyslipidemia. Continue statin. 10. Deep vein thrombosis (DVT) prophylaxis. Heparin subcutaneous. DISPOSITION PLANNING: Pending clinical improvement. Advanced care planning discussed with the patient. Estimated time spent: 30 minutes. The patient is aware that the patient's hypercarbia could potentially worsen without intervention such as bilevel positive airway pressure (BiPAP) and the patient stated that she does not want BiPAP or intubation and does not want cardiopulmonary resuscitation (CPR) as well. The patient is aware that she can potentially from respiratory failure. Currently DO NOT RESUSCITATE (DNR)/DO NOT INTUBATE (DNI) paperwork, medical orders for life-sustaining treatment (MOLST) form was done at the bedside with nursing staff as witness. ISMAEL
[2016-11-11 16:09] LABS: ABG PARTIAL PRESSURE CO2 63.4 mmHg (35.0-45.0); ABG pH (ARTERIAL) 7.365 UNITS (7.350-7.450)
[2016-11-11 16:10] LABS: ABG PARTIAL PRESSURE O2 60.3 mmHg (75.0-100.0)
[2016-11-11 16:11] LABS: ABG BASE EXCESS 7.7 (-2.0-2.0); ABG HCO3 35.4 MEQ/L (22.0-26.0); ABG TOTAL CO2 37.4 MEQ/L (22.0-29.0)
[2016-11-11 16:13] LABS: ABG STANDARD HCO3 31.3 MEQ/L (22.0-26.0)
[2016-11-11] MEDS: SERTRALINE 100 MG TAB PO SCH (20:55)
[2016-11-11] MEDS: ATORVASTATIN 20 MG TAB PO SCH (20:55)
[2016-11-12] VITALS (26 sets, daily range): BP systolic 122–159; BP diastolic 61–98; O2SAT 85–94
[2016-11-12] MEDS ORDERED: SLF 3 ML SYR IV PRN
[2016-11-12] MEDS: IPRATROPIUM 0.5MG/ALBUTEROL 2.5MG INH SOL UD 3ML (DUONEB)(J7620) NEB SCH ×4 (01:10→20:28)
[2016-11-12] MEDS: methylPREDNISolone INJ 125 MG/2 ML VIAL (J2930) IV SCH (02:56)
[2016-11-12 05:17] LABS: MEAN CORPUSCULAR HEMOGLOBIN 30.4 pg (27.0-33.0); MEAN CORPUSCULAR HGB CONC 32.4 g/dl (32.0-36.5); MEAN CORPUSCULAR VOLUME 93.6 fl (80.0-96.0); RED CELL DISTRIBUTION WIDTH 13.8 % (11.5-14.5); WHITE BLOOD COUNT 9.7 K/mm3 (4.0-10.0)
[2016-11-12 05:27] LABS: ANION GAP 3 MEQ/L (8-16); BLOOD UREA NITROGEN 13 MG/DL (7-18); CALCIUM LEVEL 8.9 MG/DL (8.5-10.1); CARBON DIOXIDE LEVEL 37 MEQ/L (21-32); CHLORIDE LEVEL 100 MEQ/L (98-107); CREATININE FOR GFR 0.47 MG/DL (0.55-1.02); GLOMERULAR FILTRATION RATE > 60.0 (>51); GLUCOSE, FASTING 165 MG/DL (70-105); MAGNESIUM LEVEL 1.9 MG/DL (1.8-2.4); POTASSIUM SERUM 3.9 MEQ/L (3.5-5.1); SODIUM LEVEL 140 MEQ/L (136-145)
[2016-11-12] MEDS: HEPARIN SOD (PORCINE) 5000 UNITS/ML VIAL SC SCH ×3 (06:12→22:01)
[2016-11-12] MEDS: LEVOTHYROXINE 50MCG TABLET (0.05MG) PO SCH (06:12)
[2016-11-12] MEDS: SLF 3 ML SYR IV SCH ×2 (06:13→14:00)
[2016-11-12] MEDS: TIOTROPIUM INHALER/CAPSULE (SPIRIVA) INH SCH ×2 (08:20→13:28)
[2016-11-12] MEDS: ADVAIR DISKUS 250/50 INH PWD INH SCH ×2 (08:20→20:28)
[2016-11-12] MEDS: ASPIRIN 81 MG ENTERIC TAB PO SCH (08:34)
[2016-11-12] MEDS: lamoTRIgine 100MG TAB PO SCH ×2 (08:34→21:59)
[2016-11-12] MEDS: GABAPENTIN 400 MG CAP PO SCH ×3 (08:34→22:00)
[2016-11-12] MEDS: HumaLOG INSULIN (NovoLOG) PER UNIT SC SCH ×4 (08:34→21:00)
[2016-11-12] MEDS: SENOKOT S TAB PO SCH ×2 (08:34→22:00)
[2016-11-12] MEDS: LISINOPRIL 5 MG TAB PO SCH (08:35)
[2016-11-12] MEDS: BISOPROLOL FUM 2.5 MG PER 1/2TAB PO SCH (08:35)
[2016-11-12] MEDS: CETIRIZINE (ZyrTEC) 10 MG TAB PO SCH (08:35)
[2016-11-12] MEDS: DULoxetine 30 MG CAP (CYMBALTA) PO SCH ×2 (08:35→22:00)
[2016-11-12] MEDS ORDERED: PANTOPRAZOLE 40MG TAB (PROTONIX) PO SCH (09:00)
[2016-11-12] MEDS ORDERED: LISINOPRIL *2.5 MG* TAB PO SCH (09:00)
[2016-11-12] MEDS: OMEPRAZOLE 20 MG CAP PO SCH (09:26)
[2016-11-12] MEDS: KETOROLAC TROMETHAMINE 10 MG TAB PO PRN ×2 (09:26→15:50)
[2016-11-12] MEDS: AZITHROMYCIN INJ 500 MG, VIAL MATE ADAPTER 1 EACH in D5W 250 ML IV SCH (11:01)
[2016-11-12] MEDS: FLUTICASONE PROP 0.05% NASAL SPRAY 16 GM (FLONASE) SCH (11:01)
[2016-11-12] MEDS: methylPREDNISolone INJ 40 MG/1 ML VIAL (J2920) IV SCH (14:21)
[2016-11-12] MEDS: ANALGESIC BALM CRM 120 GM TOP SCH ×2 (15:51→21:00)
--- NOTE | 2016-11-12 17:25 | IPNPDOC ---
Subjective Date Seen The patient was seen on 11/12/16. Subjective Chief Complaint/HPI The patient is a 60-year-old female admitted with a reason for visit of Copd Exacerbation. Events since last encounter reported chronic chest wall pain, worsen with breathing, b/l hip pain and lower back pain. patient stbted the pains are chronic and contributed to her smoking and worsening breathing. Reported breathing improved. Daughter inquired about lung transplant General: Denies: Chills Constitutional: Denies: Chills, Fever Eyes: Denies: Pain, Vision change ENT: Denies: Head Aches, Ear Pain, Dysphagia Skin: Denies: Rash, Lesions Pulmonary: Reports: Dyspnea, Cough Cardiovascular: Reports: Chest Pain, Denies: Palpitations, Orthopnea, Lt Headedness Gastrointestinal: Denies: Nausea, Vomiting, Abdominal Pain, Diarrhea, Constipation Genitourinary: Denies: Dysuria, Frequency, Incontinence Musculoskeletal: Reports: Back Pain, Joint Pain Objective Physical Examination General Exam: Positive: Alert, Cooperative, No Acute Distress Eye Exam: Positive: EOMI, Negative: PERRLA, Conjunctiva & lids normal Neck Exam: Negative: Supple, JVD Chest Exam: Positive: Normal air movement, Wheezing (mild), Negative: Rales, Rhonchi Heart Exam: Positive: Rate Normal, Normal S1, Negative: Tachycardic Abdomen Exam: Positive: Normal bowel sounds, Soft, Tenderness, Hepatospenomegaly Extremity Exam: Negative: Clubbing, Cyanosis, Edema Neuro Exam: Positive: Normal Gait, Strength at 5/5 X4 ext Assessment /Plan Assessment 60-year-old female patient with underlying medical history of chronic hypoxic hypercarbic respiratory failure, chronic obstructive pulmonary disease (COPD), oxygen-dependent, steroid-dependent, coronary artery disease with myocardial infarction ([place]), anxiety, depression, fibromyalgia, musculoskeletal pain, gastroesophageal reflux disease (GERD), hypertension, hypothyroidism, depression without psychotic features, adrenal nodules, diabetes type 2, obstructive sleep apnea, hiatal hernia, overactive bladder, migraine, scoliosis, admitted for acute COPD exacerbation. Problems (1) Acute respiratory failure with hypercapnia Status: Acute Problem Text: patient abd show respiratory acidosis initially refused bipap fio2 decreased abd showed back to baseline. 2/2 to copd exacerbation (2) COPD exacerbation Problem Text: likely 2/2 viral URI chronic hypercarbia, and hypoxia on 2L o2 at home not compliant with trilogy smoker. taper steroid, crp neg azithromycin c/w inhaler, neb d/wn Dr Lyons, need no smoking for 6 months to be even consider for transplant evaluation, (3) GERD (gastroesophageal reflux disease) Problem Text: ppi (4) Musculoskeletal pain Problem Text: pain management consulted Toradol avoid opiods given patient likely will develop worsening hypercarbia (5) Fibromyalgia Problem Text: c/w pain med Toradol added pain management consult avoid opiods given risk of hypercarbia (6) Depression Problem Text: c/w med (7) DMII (diabetes mellitus, type 2) Problem Text: insulin as per protocol holding oral meds (8) HTN (hypertension) Problem Text: lisinopril increased, c/w zebeta (9) Hypothyroid Problem Text: c/w meds (10) HLD (hyperlipidemia) Problem Text: statin Plan/VTE VTE Prophylaxis Ordered?: Yes (heparin sq) Disposition patient rescinted DNR/DNI, currently full code. likely DC in 1-2 days, respiration improved. Pain management consult. Advance lung disease, poor compliance, limited insight VS, I&O, 24H, Fishbone Vital Signs/I&O Vital Signs Date Time Temp Pulse Resp B/P (MAP) Pulse Ox O2 Delivery O2 Flow Rate FiO2 11/12/16 16:00 97.6 72 19 143/83 (103) 91 Nasal Cannula 2.0 I&O- Last 24 Hours up to 6 AM 11/12/16 06:00 Intake Total 1460 ml Output Total 1625 ml Balance -165 ml Laboratory Data 24H LABS Laboratory Tests 2 11/11/16 17:13: Bedside Glucose (Misc Panel) 162H 11/11/16 20:34: Bedside Glucose (Misc Panel) 250H 11/12/16 04:54: Anion Gap 3L, Glomerular Filtration Rate > 60.0, Blood Urea Nitrogen 13, Creatinine 0.47L, Sodium Level 140, Potassium Level 3.9, Chloride Level 100, Carbon Dioxide Level 37H, Calcium Level 8.9, Magnesium Level 1.9, C-Reactive Protein, Quantitative < 0.30 CBC/BMP Laboratory Tests 11/12/16 04:54 Red Blood Count 4.69, Mean Corpuscular Volume 93.6, Mean Corpuscular Hemoglobin 30.4, Mean Corpuscular Hemoglobin Concent 32.4, Red Cell Distribution Width 13.8 , Calcium Level 8.9 Microbiology Microbiology 11/11/16 Blood Culture - Preliminary, Resulted No growth after 24 hours . All specim... 11/11/16 Blood Culture - Preliminary, Resulted No growth after 24 hours . All specim... 11/11/16 Respiratory Virus Panel (PCR) ([facility]) - Final, Complete VIET BROWNE MD Nov 12, 2016 17:25
--- NOTE | 2016-11-12 18:27 | CR.PDOC ---
[facility] Consultation General Date of Consultation: 11/12/16 Consultation Report For: VIET BROWNE MD Chief Complaint The patient is a 60-year-old female admitted with a reason for visit of Copd Exacerbation. Pain management is asked to see her for history of chronic low back pain. Marnie Zavala is a 60-year-old female who was seen by RONAK Persaud on 06/16/2016 for an inpatient consult. At that time. The problem was also chronic low back pain. Since then she has had several admissions for COPD with exacerbation. The most recent being 11/11/2016. Patient anticipates she will be going home tomorrow. She reports she has had pain for many years. Across the low back and it has become so difficult. She is unable to function. Previously she did use marijuana for pain control but stopped that on more than a year ago. She previously had been on small doses of hydrocodone 7.5/325 no more than 2-3 tablets per day, which was very helpful. Unfortunately, the hydrocodone was discontinued per the patient, secondary to the marijuana use. She states that the pain has become so bad she is unable to function, which causes her to sit more and smoke more. Reports that today she was started on Toradol tablets which have been helping to keep her pain under good control. She also reports in the past she has used small doses of tramadol with good effect. History of Present Illness Past medical history is significant for hyper hypoxic hypercarbic respiratory failure on continuous oxygen, history of myocardial infarction, hypothyroidism, depression, type 2 diabetes, COPD, fibromyalgia and chronic back pain Home Medications Scheduled (Flonase Allergy Relief) 50 Mcg/Act Spr, 1 SPRAY NA DAILY, (Reported) Aspirin (Aspirin EC) 81 Mg Tabec, 81 MG PO DAILY, (Reported) Atorvastatin Calcium (Lipitor) 80 Mg Tab, 80 MG PO QHS, (Reported) Bisoprolol Fumarate (Bisoprolol Fumarate) 5 Mg Tab, 2.5 MG PO DAILY, (Reported) Cetirizine HCl (Cetirizine HCl) 5 Mg Tab, 5 MG PO DAILY, (Reported) Duloxetine Hcl (Duloxetine HCl) 60 Mg Cap, 60 MG PO DAILY, (Reported) Duloxetine Hcl (Duloxetine HCl) 30 Mg Cap, 30 MG PO QHS, (Reported) Gabapentin (Gabapentin) 800 Mg Tab, 800 MG PO TID, (Reported) Lamotrigine (LaMICtal) 100 Mg Tab, 100 MG PO BID, (Reported) Levothyroxine Sodium (Synthroid) 50 Mcg Tab, 50 MCG PO DAILY, (Reported) Lisinopril (Lisinopril) 2.5 Mg Tab, 2.5 MG PO DAILY, (Reported) Metformin Hydrochloride (Metformin HCl) 1,000 Mg Tab, 1,000 MG PO BID, (Reported ) Naproxen Sodium (Naproxen Sodium) 500 Mg Tab, 500 MG PO BID, (Reported) Omeprazole (Omeprazole) 40 Mg Cap, 40 MG PO DAILY, (Reported) Prednisone (Prednisone) 5 Mg Tab, 5 MG PO DAILY, (Reported) Salmeterol/Fluticasone (Advair Diskus 250-50 Mcg/Dose) 14 Puff/Inhaler Aerp, 1 PUFF INH BID, (Reported) Sertraline HCl (Sertraline HCl) 100 Mg Tab, 100 MG PO QHS, (Reported) Tiotropium [place] Monohydrate (Spiriva Handihaler) 18 Mcg Cap, 1 INHALATION INH DAILY, (Reported) Scheduled PRN Albuterol Sulfate (Ventolin Hfa) 200 Puff/8 Gm Aers, 2 PUFF INH Q4H PRN for SHORTNESS OF BREATH, (Reported) Albuterol Sulfate (Albuterol Sulfate) 2.5 Mg/3 Ml Nebu, 2.5 MG INH Q4H PRN for SHORTNESS OF BREATH, (Reported) Menthol (Bengay Vanishing Scent) 2.5 % Gel, 1 DOSE EXT QID PRN for PAIN, ( Reported) PLACES ON LOWER BACK AND HIPS Allergies Coded Allergies: No Known Drug Allergy (Verified Allergy, Unknown, 08/30/12) Social History Social History Denies tobacco, alcohol, or illicit substance abuse. Review of Systems Subjective Pulmonary: Reports: cough (with production of yellow secretions), shortness of breath (on exertion on chronic O2) Cardiovascular: Reports: chest pain (denies), edema (denies) Gastrointestinal: Reports: normal bowel movements Genitourinary: Denies: dysuria, hematuria, loss of bladder control Hematologic: Denies: easy bleeding, easy bruising, blood dyscrasias Endocrine: Reports: Diabetes mellitus, Other Endocrine Sx (history of an adrenal lesion) Musculoskeletal: Reports: leg pain, muscle pain, spasms, muscle stiffness, midthoracic pain Psych: Reports: depression (notes she is on depression medications, but is looking forward to working with psychiatry) Physical Examination Physical Examination Vital Signs/I&O Vital Signs Date Time Temp Pulse Resp B/P (MAP) Pulse Ox O2 Delivery O2 Flow Rate FiO2 11/12/16 16:00 97.6 72 19 143/83 (103) 91 Nasal Cannula 2.0 I&O- Last 24 Hours up to 6 AM 11/12/16 06:00 Intake Total 1460 ml Output Total 1625 ml Balance -165 ml General Exam: Positive: alert, attentive, talkative, no acute distress, oriented times three ENT EXAM: Positive: normocephalic, other (O2 cannula in place) Neck Exam: Positive: Full range of motion, Carotid bruit Chest Exam: Positive: Decreased breath sounds (with intermittent wheezes) Heart Exam: Positive: Regular rate and rhythm, Normal S1, S2, Negative: Murmurs, Rubs Abdominal Exam: Positive: Normal bowel sounds, Soft, Nondistended Extremity Exam: Negative: Edema Skin Exam: Positive: Warm, Dry, Negative: Rashes, Lesions Neuro Exam: Positive: Other (no sensory deficit) Psych Exam: Positive: Alert and oriented x 3, Other (emotionally labile) Inspection of spine Tenderness with palpation over lumbar spinous processes and bilaterally at the sacroiliac joints, left side greater than right. Able to rise easily from a supine to a sitting position. Musculoskeletal Trigger points and tight fibrous bands identified over lumbar paravertebral muscles and into the sacrum. Muscle strength 5 over 5 distally and proximally in the bilateral upper and lower extremities. Diagnostic and Imaging Studies No new imaging studies were obtained during this hospitalization Assessment 1. Chronic low back pain. 2. Myofascial pain. 3. Sacroiliac joint dysfunction Recommendation and Plan Lengthy time was spent discussing treatment options with Mrs. Zavala. She has recently been started on Toradol 10 mg by mouth every 6 hours when necessary for pain, and she has found this helpful..I did review her renal functions and suspect that she could tolerate a total of 5 days on this medication. She will be seeing pain management either with Dr. Goetz who she has seen in the past or here at [facility]. It would not be unreasonable to allow her up to 3 tablets per day of tramadol 50 mg every 6-8 hours for pain control. I do not feel that this would suppress her respiratory status sufficiently to cause harm. Interventional treatment and further pain medications should come from her primary care provider or her pain management Center. We talked at great length about quitting smoking. She would like to discuss starting Chantix before she leaves the hospital. And she is very eager to see the psychiatrist. Thank you Dr. Browne, for allowing us to participate in the care of your patient, [ Tegan]. Should you have any questions we will be glad to discuss this with you at any time . Please contact us here at the pain center at [phone]. Deepika Gastelum Nov 12, 2016 18:27
[2016-11-12] MEDS: ATORVASTATIN 20 MG TAB PO SCH (21:59)
[2016-11-12] MEDS: SERTRALINE 100 MG TAB PO SCH (21:59)
[2016-11-13] MEDS: IPRATROPIUM 0.5MG/ALBUTEROL 2.5MG INH SOL UD 3ML (DUONEB)(J7620) NEB SCH ×2 (01:35→07:04)
[2016-11-13] MEDS: methylPREDNISolone INJ 40 MG/1 ML VIAL (J2920) IV SCH (01:47)
[2016-11-13] MEDS: SLF 3 ML SYR IV SCH ×2 (01:47→05:43)
[2016-11-13 04:00] VITALS: BP 131/64
[2016-11-13 05:10] LABS: MEAN CORPUSCULAR HEMOGLOBIN 30.5 pg (27.0-33.0); MEAN CORPUSCULAR HGB CONC 32.5 g/dl (32.0-36.5); MEAN CORPUSCULAR VOLUME 93.8 fl (80.0-96.0); RED CELL DISTRIBUTION WIDTH 14.1 % (11.5-14.5); WHITE BLOOD COUNT 12.1 K/mm3 (4.0-10.0)
[2016-11-13 05:26] LABS: ANION GAP 3 MEQ/L (8-16); BLOOD UREA NITROGEN 18 MG/DL (7-18); CALCIUM LEVEL 8.2 MG/DL (8.5-10.1); CARBON DIOXIDE LEVEL 35 MEQ/L (21-32); CHLORIDE LEVEL 103 MEQ/L (98-107); CREATININE FOR GFR 0.56 MG/DL (0.55-1.02); GLOMERULAR FILTRATION RATE > 60.0 (>51); GLUCOSE, FASTING 176 MG/DL (70-105); MAGNESIUM LEVEL 2.1 MG/DL (1.8-2.4); POTASSIUM SERUM 4.4 MEQ/L (3.5-5.1); SODIUM LEVEL 141 MEQ/L (136-145)
[2016-11-13] MEDS: LEVOTHYROXINE 50MCG TABLET (0.05MG) PO SCH (05:37)
[2016-11-13] MEDS: HEPARIN SOD (PORCINE) 5000 UNITS/ML VIAL SC SCH (05:37)
[2016-11-13] MEDS: KETOROLAC TROMETHAMINE 10 MG TAB PO PRN (05:38)
[2016-11-13] MEDS: TIOTROPIUM INHALER/CAPSULE (SPIRIVA) INH SCH (07:04)
[2016-11-13] MEDS: ADVAIR DISKUS 250/50 INH PWD INH SCH (07:04)
[2016-11-13] MEDS ORDERED: traMADol 50 MG TAB PO PRN (07:30)
[2016-11-13 08:00] VITALS: BP 158/84
[2016-11-13] MEDS: BISOPROLOL FUM 2.5 MG PER 1/2TAB PO SCH (08:59)
[2016-11-13] MEDS: FLUTICASONE PROP 0.05% NASAL SPRAY 16 GM (FLONASE) SCH (08:59)
[2016-11-13] MEDS: HumaLOG INSULIN (NovoLOG) PER UNIT SC SCH (08:59)
[2016-11-13] MEDS: DULoxetine 30 MG CAP (CYMBALTA) PO SCH (09:00)
[2016-11-13] MEDS ORDERED: predniSONE 20 MG TAB PO SCH (09:00)
[2016-11-13] MEDS: SENOKOT S TAB PO SCH (09:00)
[2016-11-13] MEDS: LISINOPRIL 5 MG TAB PO SCH (09:00)
[2016-11-13] MEDS: lamoTRIgine 100MG TAB PO SCH (09:00)
[2016-11-13] MEDS: ASPIRIN 81 MG ENTERIC TAB PO SCH (09:00)
[2016-11-13] MEDS: OMEPRAZOLE 20 MG CAP PO SCH (09:00)
[2016-11-13] MEDS: ANALGESIC BALM CRM 120 GM TOP SCH (09:35)
[2016-11-13] MEDS: GABAPENTIN 400 MG CAP PO SCH (09:44)
[2016-11-13] MEDS ORDERED: KETO10TAB PO (10:07)
[2016-11-13] MEDS ORDERED: PRED10TA PO (10:07)
[2016-11-13] MEDS ORDERED: LISI-542 PO (10:07)
[2016-11-13] MEDS ORDERED: TRAM50TA2 PO (10:07)
--- NOTE | 2016-11-14 06:09 | DSES ---
DATE OF ADMISSION: 11/11/2016 DATE OF DISCHARGE: 11/13/2016 FINAL DIAGNOSES: 1. Acute on chronic hypercarbic respiratory failure with respiratory acidosis. 2. Chronic obstructive pulmonary disease (COPD) exacerbation. 3. Gastroesophageal reflux disease (GERD). 4. Musculoskeletal pain. 5. Fibromyalgia. 6. Depression. 7. Type 2 diabetes. 8. Hypertension. 9. Hypothyroidism. 10. Dyslipidemia. HISTORY OF PRESENT ILLNESS: This is a 60-year-old female patient with underlying medical history of chronic hypoxic respiratory failure on oxygen at home and steroid dependent, chronic hypercarbia, baseline CO2 level around 60s, coronary arterial disease, myocardial infraction in the past, anxiety, depression, fibromyalgia on chronic gabapentin, chronic musculoskeletal pain, muscle spasms, reflux, hypertension, hypothyroidism, depression without psychosis, adrenal nodule in the right, type 2 diabetes, obstructive sleep apnea, noncompliant with continuous positive airway pressure (CPAP), recently discharged on Trilogy September 2016, but has not been using it, readmitted 10/18/2016, hiatal hernia, migraine, overactive bladder, scoliosis, presented to the hospital with shortness of breath over 1 day, but since discharge, as per patient, patient has not really gotten completely better. Not really compliant with Trilogy. Reported chills and cough productive of yellow-white phlegm. No nausea, vomiting. Denies any chest pain, sick contact. Denies any palpitations, abdominal pain, diarrhea or constipation. Reported similar symptoms previously. HOSPITAL COURSE: Arterial blood gas (ABG) done in the emergency room showing respiratory acidosis. Bilevel positive airway pressure (BiPAP) was offered, but patient refused and initially signed do not resuscitate, do not intubate, but later reverted. Repeat ABG showed improvement after FiO2 was decreased. C-reactive protein has been negative. Respiratory panel has been negative. Patient was given azithromycin for antiinflammatory along with intravenous (IV) Solu-Medrol. Upon further awakening, patient reported significant chest wall pain and also lower extremity pain. As per patient, her pain has been contributing to her respiration distress, but her respiration has improved with steroids. Pain management consulted. Patient's pain medication has been adjusted and case was discussed with Dr. Pacheco because patient's family has requested consideration for long-term plan. As per Dr. Pacheco, patient needs to be free of smoking for 6 months in order to even be considered. Recommend outpatient followup with pulmonary for further considerations. Patient's respiration progressively improved with pain also improved. Patient currently is ready for discharge for further care as outpatient. PHYSICAL EXAMINATION: VITAL SIGNS: Temperature 98.1, pulse 74, respirations 20, blood pressure 158/84, pulse oximetry 97% on 2 liters nasal cannula. GENERAL: Patient alert and oriented times three in no acute distress. HEENT: Normocephalic, atraumatic. PULMONARY: Diminished breath sounds bilaterally. Mild expiratory wheeze. CARDIAC: Regular rate and rhythm. Normal S1, S2. ABDOMEN: Soft, nontender, nondistended. Positive bowel sounds. EXTREMITIES: Trace edema bilateral lower extremities. LABORATORY: WBC 12, hemoglobin and hematocrit 13.6/41.8, platelets 430. AB.36, 63.4, 60, 35.4. Chemistry: Sodium 141, potassium 4.4, chloride 103, bicarbonate 35, BUN 18, creatinine 0.56. C-reactive protein negative. Cardiac enzymes negative. Chest x-ray negative. DISCHARGE MEDICATIONS: - tramadol 50 mg by mouth every 8 hours as needed as recommended by pain management, 15 tablets prescribed - lisinopril 5 mg by mouth daily - prednisone taper 10 mg tablet, take four tablets by mouth daily for 3 days, then three tablets by mouth daily for 3 days, then two tablets by mouth daily for 3 days, and one tablet by mouth daily for 2 days and then resume home dose prednisone Patient's home medications: - Ventolin every 4 hours as needed - albuterol nebulizers every 4 hours as needed - aspirin 81 mg by mouth daily - Lipitor 80 mg by mouth nightly - bisoprolol 2.5 mg by mouth daily - Zyrtec 5 mg by mouth daily - Cymbalta 60 mg by mouth daily and 30 mg by mouth nightly - Flonase nasal inhaler - gabapentin 800 mg by mouth three times a day - lamotrigine 100 mg by mouth twice a day - Synthroid 50 mcg by mouth daily - Bengay external four times a day as needed - metformin 1000 mg by mouth twice a day - naproxen 60 mg by mouth three times a day - omeprazole 40 mg by mouth daily - Advair Diskus 250/50 mcg inhalation twice a day - Zoloft 100 mg by mouth nightly - Spiriva inhalation daily DISCHARGE INSTRUCTIONS: Patient is instructed to followup with primary care provider in 7 days. Consider followup with pain management, pulmonary, as well as psychiatrist in the next 1-2 weeks. Return to the hospital if symptoms worsen.
== END 2016-11-13 11:05 | disposition home or self-care (01) | DRG 189 ==
LOC: EDBD 05:54 → M ED 07:16 → M ED INP 09:38 → M PCU 15:37
PROVIDERS: ADMIT Hospitalist; ATTEND Hospitalist
DX: J96.22 Acute and chronic respiratory failure with hypercapnia (principal); J44.1 Chronic obstructive pulmonary disease with (acute) exacerbation; E87.2 Acidosis; K21.9 Gastro-esophageal reflux disease without esophagitis; M79.7 Fibromyalgia; F32.9 Major depressive disorder, single episode, unspecified; E11.9 Type 2 diabetes mellitus without complications; J96.11 Chronic respiratory failure with hypoxia; I10 Essential (primary) hypertension; G47.33 Obstructive sleep apnea (adult) (pediatric); M54.5 Low back pain; M53.3 Sacrococcygeal disorders, not elsewhere classified; E03.9 Hypothyroidism, unspecified; I25.10 Atherosclerotic heart disease of native coronary artery without angina pectoris; E78.5 Hyperlipidemia, unspecified; Z99.81 Dependence on supplemental oxygen; Z79.52 Long term (current) use of systemic steroids; I25.2 Old myocardial infarction; Z99.89 Dependence on other enabling machines and devices; Z91.19 Patient's noncompliance with other medical treatment and regimen; Z79.82 Long term (current) use of aspirin; Z79.84 Long term (current) use of oral hypoglycemic drugs; Z79.899 Other long term (current) drug therapy; Z90.49 Acquired absence of other specified parts of digestive tract; Z98.51 Tubal ligation status; Z87.891 Personal history of nicotine dependence

== ENCOUNTER → 2016-12-09 | Outpatient (CLI) | payer MEDICARE, MEDICAID ==
[~2016-12-09] MED LIST changes: +ADVA230A INH; +ASPI1TAB15 PO; -ASPI81TA7 PO; +AZIT-12 PO; -AZIT250T3 PO; +CETI5TAB2 PO; -CLON-404 PO; +CLON0.3T PO; +HYDR-3363 PO; +IBUP1TAB6 PO; -IBUP200C PO; +IBUP200C10 PO; -IBUP60TA PO; +IPRASOL4 INH; +IPRASOL4 NEB; +KEFL500C17 PO; -KEFL500C7 PO; +KETO10TAB PO; +LEVA1TAB2 PO; -LEVA500T PO; -LEVA750T PO; +LEVA750T7 PO; +LEVO-84 PO; +LEVO750T13 PO; -LEVO750T33 PO; -LIDO5DIS36 TD; +LIDO5DIS41 TD; -LIDO5OI TOP; +LIDO5OIN28 TOP; +LISI-542 PO; -METF1000 PO; +METF10004 PO; -METF500T PO; +METF500T13 PO; +NAPR-855 PO; -NAPR375T2 PO; +PANT40TA2 PO; -PRED10TA FT; +PRED10TA2 FT; +PRED10TA2 PO; +PRED5TA PO; +SERT25TA PO; +TIZA2TA PO; +TRAM50TA2 PO
[2016-12-09 08:40] LABS: BASO # 0.1 K/mm3 (0.0-0.2); BASO % 0.6 % (0.0-1.0); EOS # 0.3 K/mm3 (0.0-0.50); EOS % 2.9 % (0.0-3.0); LYMPH # 2.3 K/mm3 (1.5-4.5); LYMPH % 24.4 % (24.0-44.0); MEAN CORPUSCULAR HEMOGLOBIN 30.5 pg (27.0-33.0); MEAN CORPUSCULAR HGB CONC 33.1 g/dl (32.0-36.5); MEAN CORPUSCULAR VOLUME 92.1 fl (80.0-96.0); MONO # 0.6 K/mm3 (0.0-0.8); MONO % 6.4 % (0.0-5.0); NEUTROPHILS # 5.9 K/mm3 (1.8-7.7); NEUTROPHILS % 64.4 % (36.0-66.0); WHITE BLOOD COUNT 9.1 K/mm3 (4.0-10.0)
[2016-12-09 09:01] LABS: ALBUMIN 3.6 GM/DL (3.2-5.2); ALBUMIN/GLOBULIN RATIO 1.24 (1.00-1.93); ALKALINE PHOSPHATASE 101 U/L (45-117); ALT/SGPT 25 U/L (12-78); ANION GAP 6 MEQ/L (8-16); AST/SGOT 12 U/L (15-37); BILIRUBIN,TOTAL 0.4 MG/DL (0.2-1.0); BLOOD UREA NITROGEN 11 MG/DL (7-18); CALCIUM LEVEL 8.9 MG/DL (8.5-10.1); CARBON DIOXIDE LEVEL 33 MEQ/L (21-32); CHLORIDE LEVEL 101 MEQ/L (98-107); CHOLESTEROL LEVEL 122 MG/DL (<200); CREATININE FOR GFR 0.51 MG/DL (0.55-1.02); GLOMERULAR FILTRATION RATE > 60.0 (>51); GLUCOSE, FASTING 131 MG/DL (70-105); POTASSIUM SERUM 4.3 MEQ/L (3.5-5.1); SODIUM LEVEL 140 MEQ/L (136-145); TOTAL PROTEIN 6.5 GM/DL (6.4-8.2); TRIGLYCERIDES LEVEL 144 MG/DL (<150)
[2016-12-10 12:55] LABS: ALBUMIN 3.74 GM/DL (3.29-5.55); ALBUMIN % 57.5 % (55.8-66.1); GAMMA GLOBULIN % 10.1 % (11.1-18.8)
[2016-12-11 00:07] LABS: Lyme Disease IgG/IgM Antibodie <0.91 ISR (0.00-0.90); Lyme Disease IgM Ab Quantitati <0.80 index (0.00-0.79)
== END ==
LOC: M LAB 07:58
PROVIDERS: ATTEND Physician Assistant Medical
DX: I10 Essential (primary) hypertension (principal); E55.9 Vitamin D deficiency, unspecified; M54.5 Low back pain; E03.9 Hypothyroidism, unspecified

== ENCOUNTER → 2017-01-06 | Outpatient (CLI) | payer MEDICARE, MEDICAID | LOC: M LAB 14:38 | PROVIDERS: ATTEND Physician Assistant Medical | DX: M54.5 Low back pain (principal) ==

== ENCOUNTER → 2017-01-16 | Outpatient (CLI) | payer MEDICARE, MEDICAID ==
--- NOTE | 2017-01-16 16:04 | REPMRS ---
Patient History The patient states she had a clinical breast exam in 01/08 Patient is postmenopausal. No known family history of cancer. Benign stereotatic breast biopsy of the right breast, June 05, 2010. Benign excisional biopsy of the left breast, 2006. Digital Woman Screen Mammo: January 16, 2017 - Exam #: [id number] Bilateral CC and MLO view(s) were taken. Technologist: Suze Garcia, Technologist Prior study comparison: January 16, 2016, digital woman screen mammo performed at [facility]. September 09, 2013, left breast digital mammo diagnostic unilateral, performed at [facility]. FINDINGS: There are scattered fibroglandular densities. There is a fairly symmetric fibroglandular pattern in both breasts. There has been no interval development of masses, areas of architectural distortion or clusters of microcalcifications typical of malignancy. ASSESSMENT: BI-RADS/ACR category 2 mammogram. Benign finding(s). Recommendation Routine screening mammogram of both breasts in 1 year (for women over age 40). This mammogram was interpreted with the aid of an FDA-approved computer-aided dectection system. Electronically Signed By: Brigido Barcenas MD 01/16/17 [id number]
== END ==
LOC: M WHC 12:57
PROVIDERS: ATTEND Nurse Practitioner Family
DX: Z12.31 Encounter for screening mammogram for malignant neoplasm of breast (principal); Z78.0 Asymptomatic menopausal state; Z12.12 Encounter for screening for malignant neoplasm of rectum; Z92.89 Personal history of other medical treatment
CPT/HCPCS: 81002; 82270; 87624; G0101; G0123; G0202

== ENCOUNTER → 2017-01-16 | Outpatient (REF) | payer MEDICARE, MEDICAID | LOC: M SFHCWAGY 13:40 | PROVIDERS: ATTEND Nurse Practitioner Family | DX: Z12.4 Encounter for screening for malignant neoplasm of cervix (principal); Z12.12 Encounter for screening for malignant neoplasm of rectum ==

== ENCOUNTER 2017-02-04 01:22 | Inpatient (IN) | payer MEDICARE, MEDICAID ==
[~2017-02-04] VITALS: Ht 165.1 cm; Wt 88.6 kg
[~2017-02-04 01:22] MED LIST changes: -ADVA230A INH; -HYDR-3363 PO; -IPRASOL4 INH; -IPRASOL4 NEB; -LEVO-84 PO; -PANT40TA2 PO; -SERT25TA PO; -TIZA2TA PO
[2017-02-04] MEDS ORDERED: IPRATROPIUM 0.5MG/ALBUTEROL 2.5MG INH SOL UD 3ML (DUONEB)(J7620) As Ordered ONE (01:29)
[2017-02-04] MEDS: IPRATROPIUM 0.5MG/ALBUTEROL 2.5MG INH SOL UD 3ML (DUONEB)(J7620) NEB PRN ×2 (01:44→01:48)
[2017-02-04 01:51] LABS: BASO # 0.1 K/mm3 (0.0-0.2); BASO % 0.7 % (0.0-1.0); EOS # 0.1 K/mm3 (0.0-0.50); EOS % 1.4 % (0.0-3.0); LARGE UNSTAINED CELL # 0.2 K/mm3 (0.0-0.4); LARGE UNSTAINED CELL % 1.6 % (0.0-4.0); MEAN CORPUSCULAR HEMOGLOBIN 30.3 pg (27.0-33.0); MEAN CORPUSCULAR HGB CONC 31.6 g/dl (32.0-36.5); MEAN CORPUSCULAR VOLUME 96.1 fl (80.0-96.0); MONO # 0.8 K/mm3 (0.0-0.8); MONO % 7.9 % (0.0-5.0); NEUTROPHILS # 6.4 K/mm3 (1.8-7.7); NEUTROPHILS % 61.4 % (36.0-66.0); PLATELET COUNT, AUTOMATED 366 k/mm3 (150-450); WHITE BLOOD COUNT 10.3 K/mm3 (4.0-10.0)
[2017-02-04 01:52] LABS: ABG BASE EXCESS 9.1 (-2.0-2.0); ABG HCO3 39.8 MEQ/L (22.0-26.0); ABG PARTIAL PRESSURE O2 208.7 mmHg (75.0-100.0); ABG STANDARD HCO3 32.9 MEQ/L (22.0-26.0); ABG TOTAL CO2 42.4 MEQ/L (22.0-29.0); ABG pH (ARTERIAL) 7.286 UNITS (7.350-7.450)
[2017-02-04 01:54] LABS: ABG PARTIAL PRESSURE CO2 85.5 mmHg (35.0-45.0)
[2017-02-04 02:00] LABS: INR 0.89
[2017-02-04 02:16] LABS: ANION GAP 0 MEQ/L (8-16); BLOOD UREA NITROGEN 12 MG/DL (7-18); CALCIUM LEVEL 8.9 MG/DL (8.5-10.1); CARBON DIOXIDE LEVEL 42 MEQ/L (21-32); CHLORIDE LEVEL 99 MEQ/L (98-107); CREATININE FOR GFR 0.52 MG/DL (0.55-1.02); GLOMERULAR FILTRATION RATE > 60.0 (>51); GLUCOSE, FASTING 120 MG/DL (70-105); POTASSIUM SERUM 4.1 MEQ/L (3.5-5.1); SODIUM LEVEL 141 MEQ/L (136-145)
[2017-02-04] MEDS ORDERED: ALBUTEROL SULFATE 2.5 MG/0.5 ML INH NEB SOLN NEB ONE (02:30)
[2017-02-04] MEDS ORDERED: LISI2.5T3 PO (02:53)
[2017-02-04] MEDS ORDERED: TRAM50TA2 PO (02:53)
[2017-02-04] MEDS ORDERED: BISO5TAB5 PO (02:53)
[2017-02-04] MEDS ORDERED: PANT40TA2 PO (02:53)
[2017-02-04] MEDS ORDERED: TIZA2TA PO (02:53)
[2017-02-04] MEDS ORDERED: PRED5TA PO (02:53)
[2017-02-04] MEDS ORDERED: ADVA230A INH (02:53)
[2017-02-04] MEDS ORDERED: IPRATROPIUM 0.5MG/ALBUTEROL 2.5MG INH SOL UD 3ML (DUONEB)(J7620) NEB PRN (03:15)
[2017-02-04] MEDS ORDERED: ISOVUE-370 76% 100ML VIAL (Q9967) As Ordered ONE (03:21)
[2017-02-04] MEDS ORDERED: GLUCOSE 4 GM CHEW TABLET PO PRN (03:30)
[2017-02-04] MEDS ORDERED: DEXTROSE 50% 50 ML SYRINGE IV PRN (03:30)
[2017-02-04] MEDS ORDERED: GLUCAGON FOR INJ 1 MG VIAL (J1610) SC PRN (03:30)
[2017-02-04] MEDS ORDERED: methylPREDNISolone INJ 125 MG/2 ML VIAL (J2930) IV SCH ×2 (04:00→06:00)
[2017-02-04] MEDS ORDERED: AZITHROMYCIN INJ 500 MG, VIAL MATE ADAPTER 1 EACH in D5W 250 ML IV SCH (04:00)
[2017-02-04] MEDS: traMADol 50 MG TAB PO PRN ×2 (04:00→17:00)
--- NOTE | 2017-02-04 05:02 | REPUSA ---
CLINICAL HISTORY: Pain, exclude PE. TECHNIQUE: Multiple incremental axial, coronal and oblique images are obtained from the thoracic inle t to the upper abdomen. Intravenous contrast material was administered as per pulmonary embolism prot ocol. COMMENTS: Comparison to 06/13/2016. There is excellent opacification of pulmonary arterial system without evidence for pulmonary embolism . Aorta is of normal caliber without evidence for dissection or aneurysm. Unchanged left lower lobe nodules with the largest measuring 7mm. Basilar atelectatic lung changes. There is no evidence of pleural or parenchymal mass. There are no pleural effusions. There is no evidence of hilar or mediastinal lymphadenopathy. The hea rt and great vessels are within normal limits. Images of the upper abdomen demonstrate no evidence of adrenal mass. The bony structures are free of lytic or blastic lesions. Multilevel degenerative changes are seen in volving the visualized thoracolumbar spine. Scattered calcifications are seen involving the aorta and major branches compatible with atherosclero sis. IMPRESSION: No evidence for pulmonary embolism. Unchanged left lower lobe nodules with the largest measuring 7mm. Basilar atelectatic lung changes. Thank you for your kind referral of this patient.
--- NOTE | 2017-02-04 05:12 | REPUSA ---
CLINICAL HISTORY: Abdominal pain. TECHNIQUE: Multiple axial, sagittal and coronal CT images were obtained through the abdomen and pelvi s after administration of oral and intravenous contrast material. COMMENTS: Comparison to the prior exam performed on 05/01/2016. Unchanged mild hepatomegaly. Unchanged mild large bowel fecal stasis. Pattern mild diffuse thickening of the sigmoid colon. Sigmoid diverticulosis. There is no intra or extrahepatic biliary ductal dilatation. The spleen is normal. The gallbladder is surgically absent. The pancreas is of normal contour and attenuation characteristics. There is no ev idence of adrenal mass. Both kidneys demonstrate prompt and equal nephrograms. The kidneys are normal in size, shape and conf iguration. There is no evidence of renal or ureteral mass. No renal or ureteral calculi are identifie d. There is no hydroureter or hydronephrosis. No evidence for appendicitis. No evidence for small or large bowel obstruction. There is no evidence of abdominal ascites or lymphadenopathy. There is no evidence of intrinsic or extrinsic bladder mass. There is no pelvic ascites or lymphadeno ena. Images of the lung bases show no evidence of pleural or parenchymal mass. There are no pleural effusi ons. The bony structures are free of lytic or blastic lesions. Multilevel degenerative changes are seen in volving the thoracolumbar spine. Scattered calcifications are seen involving the aorta and major bran ches compatible with atherosclerosis. IMPRESSION: Mild diffuse thickening of the sigmoid colon. Under distention, spasm versus mild colitis. Mild constipation. Unchanged hepatomegaly. Unchanged microdiscectomy. Thank you for your kind referral of this patient.
[2017-02-04] MEDS: HEPARIN SOD (PORCINE) 5000 UNITS/ML VIAL SC SCH ×3 (06:00→20:33)
[2017-02-04] MEDS ORDERED: cefTRIAXone SOD 1 GM in D5W MINI-BAG PLUS 50 ML IV SCH (06:00)
[2017-02-04 06:08] LABS: ABG BASE EXCESS 6.7 (-2.0-2.0); ABG HCO3 35.4 MEQ/L (22.0-26.0); ABG PARTIAL PRESSURE O2 83.5 mmHg (75.0-100.0); ABG STANDARD HCO3 30.5 MEQ/L (22.0-26.0); ABG TOTAL CO2 37.5 MEQ/L (22.0-29.0)
[2017-02-04 06:09] LABS: ABG PARTIAL PRESSURE CO2 68.6 mmHg (35.0-45.0)
[2017-02-04 06:44] LABS: MEAN CORPUSCULAR HEMOGLOBIN 31.3 pg (27.0-33.0); MEAN CORPUSCULAR HGB CONC 33.2 g/dl (32.0-36.5); MEAN CORPUSCULAR VOLUME 94.1 fl (80.0-96.0); RED CELL DISTRIBUTION WIDTH 13.9 % (11.5-14.5); WHITE BLOOD COUNT 10.8 K/mm3 (4.0-10.0)
--- NOTE | 2017-02-04 06:57 | HPE ---
DATE OF ADMISSION: 02/04/2017 PRIMARY CARE PHYSICIAN: SANKET Ly OUTPATIENT RING MAKING MACHINE OPERATOR: Dr. Pacheco. HISTORY OF PRESENT ILLNESS: Patient is a 61-year-old female with multiple medical conditions presented to [facility] on 02/04/2017 for acute worsening of shortness of breath. Patient has a history of chronic obstructive pulmonary disease (COPD) and at baseline patient is using 2 liter nasal cannula and patient has frequent COPD exacerbation requiring multiple hospitalizations. According to the patient, around 6 a.m. on 02/03/2017, patient started having acute worsening shortness of breath that woke her up from her sleep and breathing is getting worse throughout the day. Patient noted to have increased cough, increased wheeze, increased sputum production and there is a change in color of her sputum. Patient also noted to have subjective fever and shivering chill. Patient also had nausea. Patient also complained of chest pain mid chest radiating to the back. Chest pain is worsened from the cough and from the deep inspiration. Patient also complained about abdominal pain chronically, mainly on the right upper quadrant. Patient continued to smoke. After patient arrived to the emergency room, multiple dose of nebulizer was given, but however, patient still had significant shortness of breath. Arterial blood gas (ABG) was performed and patient was found to have severe hypercapnic respiratory failure with significant pulmonary acidosis. Bilevel positive airway pressure (BiPAP) was offered but patient refused. When the code status was discussed with the patient, patient stated she wanted to be a FULL CODE. ALLERGIES: NO KNOWN DRUG ALLERGIES. PAST MEDICAL HISTORY: 1. COPD, on home oxygen. 2. Obstructive sleep apnea (SUYAPA). Per record, patient is noncompliant with Trilogy. 3. Chronic hypercarbia. 4. History of coronary artery disease. 5. History of myocardial infarction. 6. Hypothyroidism. 7. History of right adrenal nodule. 8. Type 2 diabetes. 9. Chronic migraines. 10. Overactive bladder. 11. Chronic scoliosis. 12. Anxiety/depression. 13. Fibromyalgia. 14. Gastroesophageal reflux disease. 15. Hypertension. PAST SURGICAL HISTORY: 1. Cholecystectomy. 2. Cardiac catheterization without stent. 3. History of breast biopsy. 4. Dilation and curettage. 5. Tubal ligation. 6. Tonsillectomy. 7. Exploratory laparotomy. HOME MEDICATIONS: - Ventolin two puffs inhalation every four hours as needed - aspirin 81 mg by mouth daily - Lipitor 80 mg by mouth nightly - bisoprolol 2.5 mg by mouth daily - duloxetine 60 mg by mouth daily - duloxetine 30 mg by mouth nightly - gabapentin 800 mg by mouth three times a day - Lamictal 100 mg by mouth twice a day - Synthroid 125 mcg by mouth daily - lisinopril 2.5 mg by mouth daily - metformin 1000 mg by mouth twice a day - naproxen 500 mg by mouth twice a day - pantoprazole 40 mg by mouth daily - prednisone 5 mg by mouth daily - Advair Diskus one puff inhalation twice a day - sertraline 100 mg by mouth nightly - Spiriva one inhalation daily - tizanidine 2 mg by mouth by mouth three times a day as needed for muscle spasms - tramadol 100 mg by mouth twice a day SOCIAL HISTORY: Patient continues to smoke, smoke greater than 50 years. Denied alcohol use. Denied recreational drug use. Patient is a FULL CODE. Previously patient was documented at DO NOT RESUSCITATE, DO NOT INTUBATE; however, patient states she has changed her wishes. REVIEW OF SYSTEMS: GENERAL: Positive subjective fever and chill. HEENT: No vision changes. No auditory changes. CARDIOVASCULAR: Complained about sharp pain from the mid chest radiating to the back, worsening with inhalation and cough. Patient does have a history of myocardial infarction and history of coronary artery disease. RESPIRATORY: History of COPD with home oxygen. Patient complained of acute worsening shortness of breath since 6 a.m. on 02/03/2017. Patient also noted to have increased cough, frequency use of breathing, increased wheezing, increased sputum production, also having change of sputum color. GASTROINTESTINAL: Complained about nausea. No vomiting. Patient did complain about chronic right upper abdominal pain. No diarrhea. MUSCULOSKELETAL: Chronic muscle pain and also history of fibromyalgia. NEUROLOGICAL: No numbness. No tingling. OBJECTIVE: VITAL SIGNS: Temperature 96.6, pulse is 98, respiration rate is 22, blood pressure is 143/77, pulse oximetry is 97% with 2 liter nasal cannula. GENERAL: Mild to moderate distress secondary to significant respiratory distress. Alert and oriented times three. HEENT: Normocephalic, atraumatic. Extraocular motor grossly intact. CARDIOVASCULAR: Very distant heart sound. Positive S1, S2. Regular rate. LUNGS: Positive wheezes in the bilateral lung field. Very poor respiratory efforts, accessory muscle use. I cannot appreciate any crackles. GASTROINTESTINAL: Tenderness to palpation on the right upper quadrant the lateral side. Bowel sounds present. No rebound. No guarding. EXTREMITIES: No edema. No sign of cyanosis. NEUROLOGICAL: Sensation to fine touch grossly intact. Muscle strength 5/5. LABORATORY DATA: WBC is 10.3, hemoglobin 15.3, hematocrit is 48.6, platelet count is 366. Sodium is 141, potassium 4.1, chloride is 99, carbon dioxide 42, BUN is 12, creatinine 0.52, GFR greater than 60, fasting glucose 120, calcium is 8.9, total CK is 96, troponin I is less than 0.02, BNP is 35.3. ABG showed a pH of 7.286, pCO2 is 85.5, pO2 is 208.7, HCO3 is 39.8. PT 12.1, INR is 0.89. Blood culture is pending times two sets. Chest x-ray official report pending. ASSESSMENT: EKG: Sinus rhythm. No significant ST segment elevations. ASSESSMENT AND PLAN: 1. Acute hypercarbic respiratory failure secondary to chronic obstructive pulmonary disease exacerbation and obstructive sleep apnea with medical noncompliance. Patient will be admitted to progressive care unit (PCU) on inpatient status. Patient will be given intravenous (IV) steroids and covered with Rocephin and azithromycin. Will follow with a respiratory panel and sputum cultures. Patient continues to smoke, which had made management very difficulty. Patient has frequent COPD exacerbations and required multiple hospitalization in the past. Just in 2017, patient has at least six hospitalizations for COPD exacerbation. Patient also has multiple emergency room visits. Currently patient has hypercarbic respiratory failure with significant respiratory acidosis. BiPAP was offered but patient refused the treatments. Follow with arterial blood gas (ABG) in the morning. 2. Chronic obstructive pulmonary disease exacerbation. At home, patient using 2 liter nasal cannula. Currently patient is treated for COPD exacerbation. 3. Obstructive sleep apnea. Patient has not been compliant with the trilogies. Patient will be on SUYAPA protocol. 4. Chronic hypercarbia. 5. History of coronary artery disease. Continue on home medications. 6. History of myocardial infarction. Continue with home medications. 7. Hypothyroidism. Follow with thyroid-stimulating hormone (TSH) and continue with Synthroid. 8. Type 2 diabetes. Consistent carbohydrate diet. Follow with A1c. Patient will be on sliding scale. Metformin will be discontinued. 9. History of gastroesophageal reflux disease. On Protonix. 10. Fibromyalgia. 11. Overactive bladder. 12. Anxiety/depression. Continue on home medications. 13. Hypertension. Blood pressure is the satisfactory range. Continue home medications. 14. History of muscle spasm. 15. Chronic right upper abdominal pain. Will follow with a CT of the abdomen and pelvis. 16. Chest pain. Mostly musculoskeletal pain, but patient also presented with pleuritic pain. Will follow with a CT angiogram. The first troponin is negative. Will continue to trend the troponin. 17. History of adrenal nodules. 18. Hiatal hernia. On Protonix. 19. History of migraine headache. 20. . Deep vein thrombosis (DVT) prophylaxis. Heparin. MTDD
[2017-02-04] MEDS: HumaLOG INSULIN (NovoLOG) PER UNIT SC SCH ×4 (07:30→20:23)
--- NOTE | 2017-02-04 07:43 | REP ---
Clinical: Chest pain . Comparison: 11/11/2016 . Findings: The mediastinum and cardiac silhouette are stable and within normal limits for portable technique. The lung cherry are clear without acute consolidation, effusion, or pneumothorax. Skeletal structures are intact. Impression: No acute cardiopulmonary process appreciated. Signed by Michael Vasques MD 02/04/2017 07:33 A
[2017-02-04] MEDS: IPRATROPIUM 0.5MG/ALBUTEROL 2.5MG INH SOL UD 3ML (DUONEB)(J7620) NEB SCH ×3 (08:00→21:29)
[2017-02-04 08:12] LABS: ANION GAP 4 MEQ/L (8-16); BLOOD UREA NITROGEN 15 MG/DL (7-18); CALCIUM LEVEL 8.8 MG/DL (8.5-10.1); CARBON DIOXIDE LEVEL 37 MEQ/L (21-32); CHLORIDE LEVEL 102 MEQ/L (98-107); GLOMERULAR FILTRATION RATE > 60.0 (>51); GLUCOSE, FASTING 168 MG/DL (70-105); MAGNESIUM LEVEL 1.8 MG/DL (1.8-2.4); POTASSIUM SERUM 4.4 MEQ/L (3.5-5.1); SODIUM LEVEL 143 MEQ/L (136-145)
[2017-02-04 08:19] VITALS: BP 148/63
[2017-02-04] MEDS: TIOTROPIUM INHALER/CAPSULE (SPIRIVA) INH SCH (08:32)
[2017-02-04] MEDS: ADVAIR HFA 230/21MCG INHALER INH SCH ×2 (08:32→21:28)
[2017-02-04] MEDS: PANTOPRAZOLE 40MG TAB (PROTONIX) PO SCH (08:54)
[2017-02-04] MEDS: DULoxetine 30 MG CAP (CYMBALTA) PO SCH ×2 (08:54→20:33)
[2017-02-04] MEDS: LISINOPRIL *2.5 MG* TAB PO SCH (08:54)
[2017-02-04] MEDS: LEVOTHYROXINE 25MCG TABLET (0.025MG) PO SCH (08:54)
[2017-02-04] MEDS: BISOPROLOL FUMARATE 5 MG TAB PO SCH (08:55)
[2017-02-04] MEDS: ASPIRIN 81 MG ENTERIC TAB PO SCH (08:55)
[2017-02-04] MEDS: lamoTRIgine 100MG TAB PO SCH ×2 (08:55→20:34)
[2017-02-04] MEDS: GABAPENTIN 400 MG CAP PO SCH ×3 (08:55→20:34)
[2017-02-04] MEDS ORDERED: LEVOTHYROXINE 50MCG TABLET (0.05MG) PO SCH (09:00)
[2017-02-04 09:16] LABS: ALKALINE PHOSPHATASE 101 U/L (45-117); AST/SGOT 12 U/L (15-37); BILIRUBIN,TOTAL 0.2 MG/DL (0.2-1.0); FREE T4 1.03 NG/DL (0.76-1.46); TOTAL PROTEIN 6.7 GM/DL (6.4-8.2)
[2017-02-04 09:27] LABS: ALT/SGPT 25 U/L (12-78); BILIRUBIN,DIRECT < 0.1 MG/DL (0.0-0.2)
[2017-02-04 12:00] VITALS: BP 173/82
[2017-02-04] MEDS: FAMOTIDINE 20 MG TAB PO SCH ×2 (12:06→20:33)
[2017-02-04 13:02] LABS: ABG BASE EXCESS 8.5 (-2.0-2.0); ABG HCO3 36.1 MEQ/L (22.0-26.0); ABG PARTIAL PRESSURE O2 52.2 mmHg (75.0-100.0); ABG pH (ARTERIAL) 7.379 UNITS (7.350-7.450)
[2017-02-04 13:03] LABS: ABG PARTIAL PRESSURE CO2 62.6 mmHg (35.0-45.0)
[2017-02-04 13:52] LABS: ALBUMIN 3.5 GM/DL (3.2-5.2); ALBUMIN/GLOBULIN RATIO 1.09 (1.00-1.93)
[2017-02-04 16:04] VITALS: BP 151/75
--- NOTE | 2017-02-04 17:23 | IPNPDOC ---
Text Note Date of Service The patient was seen on 02/04/17. NOTE Hospitalist Progress Note Patient was admitted by my colleague Dr. Hernandez early this morning. She was seen and examined by me today. 61-year-old female with COPD on 2 L O2 chronically, SUYAPA noncompliant with Trilogy, chronic hypercarbia, CAD and history of [place], hypothyroidism, right adrenal nodule, diabetes mellitus type 2, chronic migraines, overactive bladder , anxiety and depression, fibromyalgia, GERD, hypertension who presented to the emergency department with shortness of breath and is admitted with a COPD exacerbation. 1. COPD exacerbation: Change antibiotics to Levaquin, continue Solu-Medrol. Continue home Spiriva, Advair. Continue scheduled and as needed DuoNeb's. Patient is currently requiring only her home 2 L of oxygen. Currently holding home by mouth prednisone. CTA of the chest was negative for PE. 2. CAD and history of [place]: The patient is currently without chest pain. Continue home aspirin, statin, beta leela. 3. Hypothyroidism: Continue home Synthroid. Free T4 is within normal limits. 4. Diabetes mellitus type 2: Holding home metformin. Sliding scale insulin while patient is in-house. A1c is 6.0. 5. Chronic migraines: Continue home Lamictal. 6. Anxiety and depression, fibromyalgia: Continue home Zoloft, Cymbalta, Neurontin, tramadol. 7. GERD: Continue home H2 leela and PPI. 8. Hypertension: Continue home beta leela, LESLEI inhibitor. 9. Left lower lobe lung nodules: These are seen on CTA of the chest and are noted to be unchanged from prior imaging. We will ensure that the patient is following with Dr. Pacheco for this. 10. Abdominal pain: The patient states that this is located mostly on her right side and epigastrium. She denies any blood in her stool or dark tarry stool. She states that this abdominal pain has been present for many years, and no doctor has been able to figure out what it is. LFTs are within normal limits. CT of the abdomen and pelvis showed only mild diffuse thickening of the sigmoid colon which may represent spasm or mild colitis. The location of this does not correspond with the patient's symptoms, and I do not think that it clinically explains her symptoms, nor do her symptoms give validity to the mild potential findings on CT of the abdomen and pelvis. Given the chronicity of this problem for several years, we will recommend that the patient follow-up with her outpatient physician for further workup. 11. Acute on chronic hypercarbic respiratory failure: The patient is a chronic retainer of CO2, but upon arrival, her PCO2 on ABG did appear to be elevated above her usual. The patient refused BiPAP at that time, and is still refusing BiPAP. Her ABG has continued to show steady improvement in her PCO2 with just the treatments that she will allow. DVT prophylaxis: Heparin Dispo: pending improvement in her breathing status VS,Fishbone, I+O VS, Fishbone, I+O Laboratory Tests 02/04/17 01:41 Red Blood Count 5.05, Mean Corpuscular Volume 96.1 H, Mean Corpuscular Hemoglobin 30.3, Mean Corpuscular Hemoglobin Concent 31.6 L, Red Cell Distribution Width 14.0, Neutrophils (%) (Auto) 61.4, Lymphocytes (%) (Auto) 27.0, Monocytes (%) (Auto) 7.9 H, Eosinophils (%) (Auto) 1.4, Basophils (%) ( Auto) 0.7, Neutrophils # (Auto) 6.4, Lymphocytes # (Auto) 3.0, Monocytes # (Auto ) 0.8, Eosinophils # (Auto) 0.1, Basophils # (Auto) 0.1, Calcium Level 8.9, Total Creatine Kinase 96 02/04/17 06:02 Red Blood Count 4.88, Mean Corpuscular Volume 94.1, Mean Corpuscular Hemoglobin 31.3, Mean Corpuscular Hemoglobin Concent 33.2, Red Cell Distribution Width 13.9 02/04/17 07:20 Calcium Level 8.8 Vital Signs Date Time Temp Pulse Resp B/P (MAP) Pulse Ox O2 Delivery O2 Flow Rate FiO2 02/04/17 16:04 97.5 74 24 151/75 (100) 92 Nasal Cannula 1.5 02/04/17 16:00 93 I&O- Last 24 Hours up to 6 AM 02/04/17 05:59 Output Total 300 ml Balance -300 ml AYSE VALENTINE Feb 04, 2017 17:23
[2017-02-04] MEDS: methylPREDNISolone INJ 125 MG/2 ML VIAL (J2930) IV SCH ×2 (18:00→23:04)
[2017-02-04] MEDS: LevoFLOXacin IV 750 MG in APPROPRIATE DILUENT 1 EA IV SCH (18:00)
[2017-02-04 19:26] VITALS: BP 117/57
[2017-02-04] MEDS: ONDANSETRON 4 MG TAB (S0181) PO PRN (20:24)
[2017-02-04] MEDS: SERTRALINE 100 MG TAB PO SCH (20:34)
[2017-02-04] MEDS: ATORVASTATIN 20 MG TAB PO SCH (20:34)
[2017-02-04] MEDS: ANALGESIC BALM CRM 120 GM TOP SCH (20:46)
[2017-02-04 23:55] VITALS: BP 143/78
[2017-02-05] MEDS: IPRATROPIUM 0.5MG/ALBUTEROL 2.5MG INH SOL UD 3ML (DUONEB)(J7620) NEB SCH ×4 (02:32→20:00)
[2017-02-05] MEDS ORDERED: IPRATROPIUM 0.5MG/ALBUTEROL 2.5MG INH SOL UD 3ML (DUONEB)(J7620) NEB PRN (03:15)
[2017-02-05 03:51] VITALS: BP 137/67
[2017-02-05] MEDS: LEVOTHYROXINE 25MCG TABLET (0.025MG) PO SCH (05:36)
[2017-02-05] MEDS: methylPREDNISolone INJ 125 MG/2 ML VIAL (J2930) IV SCH ×3 (05:36→21:25)
[2017-02-05] MEDS: HEPARIN SOD (PORCINE) 5000 UNITS/ML VIAL SC SCH ×3 (05:37→21:25)
[2017-02-05] MEDS: HumaLOG INSULIN (NovoLOG) PER UNIT SC SCH ×4 (07:30→20:49)
--- NOTE | 2017-02-05 07:37 | ECGEPIP ---
Stationary ECG Study [facility] - ED Test Date: 2017-02-04 Pat Name: MIGUEL NAQVI Department: Room: [place] [address] Gender: F Coordinator Of Library Services: delmi : 1955 Requested By: RONNELL Jose Order Number: [id number] Reading MD: Vidya Villavicencio Measurements Intervals [place] Rate: 87 P: 68 CA: 159 QRS: 76 QRSD: 100 T: 63 QT: 354 QTc: 428 Interpretive Statements SINUS RHYTHM POSSIBLE ANTERIOR MYOCARDIAL INFARCTION, OF INDETERMINATE AGE NSTTW ABNORMALITY LOW VOLTAGE LIMB SIMILAR 11/11/16 Electronically Signed On 02-05-2017 7:36:48 EDT by Vidya Villavicencio
[2017-02-05] MEDS: ADVAIR HFA 230/21MCG INHALER INH SCH ×2 (07:48→20:15)
[2017-02-05 08:09] LABS: MEAN CORPUSCULAR HEMOGLOBIN 30.9 pg (27.0-33.0); MEAN CORPUSCULAR HGB CONC 32.9 g/dl (32.0-36.5); MEAN CORPUSCULAR VOLUME 94.1 fl (80.0-96.0); WHITE BLOOD COUNT 11.1 K/mm3 (4.0-10.0)
[2017-02-05 08:19] LABS: ANION GAP 5 MEQ/L (8-16); BLOOD UREA NITROGEN 14 MG/DL (7-18); CALCIUM LEVEL 9.1 MG/DL (8.5-10.1); CARBON DIOXIDE LEVEL 37 MEQ/L (21-32); CHLORIDE LEVEL 97 MEQ/L (98-107); CREATININE FOR GFR 0.56 MG/DL (0.55-1.02); GLOMERULAR FILTRATION RATE > 60.0 (>51); GLUCOSE, FASTING 99 MG/DL (70-105); MAGNESIUM LEVEL 1.8 MG/DL (1.8-2.4); POTASSIUM SERUM 4.2 MEQ/L (3.5-5.1); SODIUM LEVEL 139 MEQ/L (136-145)
[2017-02-05] MEDS ORDERED: buPROPion 75 MG TAB PO SCH (09:00)
[2017-02-05] MEDS ORDERED: hydrOXYzine 50 MG TAB PO PRN (09:45)
--- NOTE | 2017-02-05 10:21 | MHIPNPDOC ---
[facility] Progress Note Progress Note DATE OF SERVICE: 02/05/17 HISTORY: 60 year old female with history of COPD and Bipolar 2 disorder who admits to be tired of being at the ED since Thursday night. She expresses to be unsatisfied with the way she has been treated. She admits she told Dr. Rush, that it wouldn't matter if she went home and , she was not expressing suicidal ideation, she was voicing her frustration. She says she would be better of at home where she would be able to ambulate, watch t.v., do her things , even if it's done slowly. Her son has texted her while I a there telling her he is ready to take her on a ride and bring the wheel chair and the oxygen with them, her daughter came in and said almost all family members have anxiety or depression. Both, patient and daughter expressed she has been diagnosed with Bipolar 2 disorder and she used to go to [facility] and see Dr. Antony but since her therapist left, she stopped going because she thought her PCP would be able to prescribe her medications. She says she was on Wellbutrin for a long time but they changed her medication to Zoloft and she doesn't feel Zoloft is working for her. Her daughter concurred with her mother about this issue but also said her mother would benefit from Hydroxyzine PRN for anxiety because when she becomes short of breath, she becomes anxious and her anxiety makes her COPD worse. The patient has a history of fibromyalgia and other medical problems that contribute to her depression. The patient states she doesn't feel suicidal, she says "If I would have been suicidal I wouldn't have come to the hospital, I wouldn't have stayed at home and ". Her daughter says her mother is not home alone, she lives with her granddaughter and the granddaughter;s boyfriend, the daughter and son live nearby. Her daughter came to pick her up but she realized her mother only has oxygen for two hours at home and she states there's a problem with the [facility], because they claim they didn't receive her Doctor's papers, saying that she needs oxygen. The patient's daughter is trying to fix that problem because if the patient goes home, she will need her oxygen. VITAL SIGNS: See below. NEW TEST RESULTS: Red Blood Count 4.72, Mean Corpuscular Volume 94.1, Mean Corpuscular Hemoglobin 30.9, Mean Corpuscular Hemoglobin Concent 32.9, Red Cell Distribution Width 14.0 , Calcium Level 9.1. 02/04/17 11:14: Bedside Glucose (Misc Panel) 172H 02/04/17 12:48: Blood Gas Bicarbonate Standard 32.0H, Arterial Blood pH 7.379, Arterial Blood Partial Pressure CO2 62.6*H, Arterial Blood Partial Pressure O2 52.2L, Arterial Blood Total CO2 38.0H, Arterial Blood HCO3 36.1H, Arterial Blood Base Excess 8.5H, Arterial Blood Oxygen Saturation 87.3L 02/04/17 17:12: Bedside Glucose (Misc Panel) 224H 02/04/17 20:22: Bedside Glucose (Misc Panel) 112H 02/05/17 07:38: Anion Gap 5L, Glomerular Filtration Rate > 60.0, Blood Urea Nitrogen 14, Creatinine 0.56, Sodium Level 139, Potassium Level 4.2, Chloride Level 97L, Carbon Dioxide Level 37H, Calcium Level 9.1, Magnesium Level 1.8, Lipase 197 CURRENT MEDICATIONS: See below. MENTAL STATUS EXAMINATION: Patient is a 61-year old female, who is alert, cooperative, mildly short of breath, with good eye contact Speech: Is Coherent, goal directed Language skills are Fair. Thought processes including: Intact. Thought content: Focused on going back home, continuing her treatment there and changing her psychiatric medications. Abstract reasoning, and computation: Fair. Description of associations: Good Description of abnormal or psychotic thoughts: She denies SI/HI, denies A/V hallucinations, denies thought delusions Judgment: Fair Insight: Fair Orientation: Oriented x 3 Recent and remote memory: Intact Attention span and concentration: Good Language: Normal Fund of knowledge: Fair Mood: Mildly anxious, mildly depressed Affect: Reactive, full range, appropriate DIAGNOSES: 1. Bipolar 2 Disorder 2. R/O MDD secondary to medical condition 3. COPD ASSESSMENT:Patient wants to go home because she feels she would be able to resume her daily life activities but she doesn't have the services from the [facility], so, she will have to stay at the Hospital while that situation resolves. In the meantime I recommend: 1. Discontinue Zoloft 2. Start her on Wellbutrin 75 mgs. PO QAM 3. Start her on Hydroxyzine 75 mgs. PO 50 mgs. PO QPRN for anxiety 5. Continue other psychiatric medications, patient says she was taking Seroquel. Will f/u at the Medical Floor ( [address]) MANAGEMENT PLAN: As above TIME SPENT:45 minutes. Vital Signs Vital Signs Date Time Temp Pulse Resp B/P (MAP) Pulse Ox O2 Delivery O2 Flow Rate FiO2 02/05/17 03:51 97.2 70 22 137/67 (90) 92 Nasal Cannula 2.0 02/04/17 16:00 93 Laboratory Data 24H Labs Laboratory Tests 2 02/04/17 11:14: Bedside Glucose (Misc Panel) 172H 02/04/17 12:48: Blood Gas Bicarbonate Standard 32.0H, Arterial Blood pH 7.379, Arterial Blood Partial Pressure CO2 62.6*H, Arterial Blood Partial Pressure O2 52.2L, Arterial Blood Total CO2 38.0H, Arterial Blood HCO3 36.1H, Arterial Blood Base Excess 8.5H, Arterial Blood Oxygen Saturation 87.3L 02/04/17 17:12: Bedside Glucose (Misc Panel) 224H 02/04/17 20:22: Bedside Glucose (Misc Panel) 112H 02/05/17 07:38: Anion Gap 5L, Glomerular Filtration Rate > 60.0, Blood Urea Nitrogen 14, Creatinine 0.56, Sodium Level 139, Potassium Level 4.2, Chloride Level 97L, Carbon Dioxide Level 37H, Calcium Level 9.1, Magnesium Level 1.8, Lipase 197 CBC/BMP Laboratory Tests 02/05/17 07:38 Red Blood Count 4.72, Mean Corpuscular Volume 94.1, Mean Corpuscular Hemoglobin 30.9, Mean Corpuscular Hemoglobin Concent 32.9, Red Cell Distribution Width 14.0 , Calcium Level 9.1 Current Medications Current Medications Albuterol/ Ipratropium (Duoneb (Ipr 0.5mg/Alb 2.5mg)) 3 ml Q20M PRN NEB SHORTNESS OF BREATH Last administered on 02/04/17t 01:48; Start 02/04/17 at 01: 30; Stop 02/04/17 at 01:48; Status DC Albuterol/ Ipratropium (Duoneb (Ipr 0.5mg/Alb 2.5mg)) 3 ml Q2HP PRN NEB SOB/ WHEEZING; Start 02/05/17 at 03:15; Stop 03/06/17 at 03:14 Albuterol/ Ipratropium (Duoneb (Ipr 0.5mg/Alb 2.5mg)) 3 ml Q4HP PRN NEB SOB/ WHEEZING; Start 02/04/17 at 03:15; Stop 02/04/17 at 17:13; Status DC Albuterol/ Ipratropium (Duoneb (Ipr 0.5mg/Alb 2.5mg)) 3 ml RQ6H NEB Last administered on 02/05/17 02:32; Start 02/04/17 at 20:00; Stop 03/06/17 at 07: 59 Albuterol/ Ipratropium (Duoneb (Ipr 0.5mg/Alb 2.5mg)) 3 ml RQ8H NEB Last administered on 02/04/17 15:55; Start 02/04/17 at 08:00; Stop 02/04/17 at 17:14 ; Status DC Aspirin (Ecotrin) 81 mg DAILY PO Last administered on 02/04/17 08:55; Start at 09:00; Stop 03/06/17 at 08:59 Atorvastatin Calcium (Lipitor) 80 mg QHS PO Last administered on 02/04/17 20: 34; Start 02/04/17 at 21:00; Stop 03/06/17 at 20:59 Azithromycin 500 mg/IV Miscellaneous Supplies 1 each/ Dextrose 255 ml @ 255 mls /hr Q24H IV Last administered on 02/04/17 04:00; Start 02/04/17 at 04:00; Stop 02/04/17 at 17:11; Status DC Bisoprolol Fumarate (Zebeta) 2.5 mg DAILY PO Last administered on 02/04/17 08: 55; Start 02/04/17 at 09:00; Stop 03/06/17 at 08:59 Bupropion HCl (Wellbutrin) 75 mg BID PO ; Start 02/05/17 at 21:00; Stop at 20:59; Status UNV Ceftriaxone Sodium 1 gm/ Dextrose 50 ml @ 100 mls/hr Q12H IV Last administered on 02/04/17 06:00; Start 02/04/17 at 06:00; Stop 02/04/17 at 17:11 ; Status DC Dextrose (Dextrose 50%) 25 ml ASDIRECTED PRN IV SEE LABEL COMMENTS; Start 02/04 at 03:30; Stop 03/06/17 at 03:29 Duloxetine HCl (Cymbalta) 30 mg QHS PO Last administered on 02/04/17 20:33; Start 02/04/17 at 21:00; Stop 03/06/17 at 20:59 Duloxetine HCl (Cymbalta) 60 mg DAILY PO Last administered on 02/04/17 08:54; Start 02/04/17 at 09:00; Stop 03/06/17 at 08:59 Famotidine (Pepcid) 20 mg BID PO Last administered on 02/04/17 20:33; Start at 09:00; Stop 03/06/17 at 08:59 Fluticasone Propionate (Flonase 0.05% Nasal [place]) 1 spray DAILY NA ; Start at 09:00; Stop 03/07/17 at 08:59 Gabapentin (Neurontin) 800 mg TID PO Last administered on 02/04/17 20:34; Start 02/04/17 at 09:00; Stop 03/06/17 at 08:59 Glucagon (Glucagon) 1 mg ASDIRECTED PRN SC SEE LABEL COMMENTS; Start 02/04/17 at 03:30; Stop 03/06/17 at 03:29 Glucose (Glucose) 16 GM ASDIRECTED PRN PO SEE LABEL COMMENTS; Start 02/04/17 at 03:30; Stop 03/06/17 at 03:29 Heparin Sodium (Porcine) (Heparin) 5,000 units Q8H SC Last administered on 02/05 05:37; Start 02/04/17 at 06:00; Stop 02/09/17 at 05:59 Home Med (Med Rec Complete!) ASDIRECTED XX ; Start 02/04/17 at 03:00; Stop at 03:00; Status DC Hydroxyzine HCl (Atarax) 75 mg Q6HP PRN PO ANXIETY; Start 02/05/17 at 09:45; Stop 03/07/17 at 09:44 Insulin Human Lispro (HumaLOG INSULIN) SEE PROTOCOL TABLE AC SC Last administered on 02/04/17 17:30; Start 02/04/17 at 07:30; Stop 03/06/17 at 07: 29 Insulin Human Lispro (HumaLOG INSULIN) SEE PROTOCOL TABLE QHS SC ; Start at 21:00; Stop 03/06/17 at 20:59 Lamotrigine (LaMICtal) 100 mg BID PO Last administered on 02/04/17 20:34; Start 02/04/17 at 09:00; Stop 03/06/17 at 08:59 Levofloxacin 750 mg/IV Miscellaneous Supplies 150 ml @ 100 mls/hr Q24H IV Last administered on 02/04/17 18:00; Start 02/04/17 at 18:00; Stop 02/11/17 at 17:59 Levothyroxine Sodium (Synthroid) 25 mcg DAILY PO ; Start 02/04/17 at 09:00; Stop 02/04/17 at 09:00; Status DC Levothyroxine Sodium (Synthroid) 25 mcg DAILY@0600 PO Last administered on 02/05 05:36; Start 02/04/17 at 06:00; Stop 03/06/17 at 05:59 Lisinopril (Prinivil) 2.5 mg DAILY PO Last administered on 02/04/17 08:54; Start 02/04/17 at 09:00; Stop 03/06/17 at 08:59 Menthol/Methyl Salicylate (Bengay Cream) Apply to patient's hips ... BID TOP Last administered on 02/04/17 20:46; Start 02/04/17 at 21:00; Stop 03/06/17 at 20:59 Methylprednisolone (SOLUmedrol) 60 mg Q6H IV Last administered on 02/05/17 05: 36; Start 02/04/17 at 18:00; Stop 02/05/17 at 09:49; Status DC Methylprednisolone (SOLUmedrol) 60 mg Q8H IV ; Start 02/05/17 at 14:00; Stop at 05:59; Status UNV Methylprednisolone (SOLUmedrol) 80 mg Q12H IV ; Start 02/04/17 at 04:00; Stop at 04:00; Status DC Methylprednisolone (SOLUmedrol) 80 mg Q12H IV Last administered on 02/04/17 06 :00; Start 02/04/17 at 06:00; Stop 02/04/17 at 17:11; Status DC Ondansetron HCl (Zofran) 4 mg Q8HP PRN PO NAUSEA OR VOMITING Last administered on 02/04/17 20:24; Start 02/04/17 at 20:15; Stop 03/06/17 at 20:14 Pantoprazole Sodium (Protonix) 40 mg DAILY PO Last administered on 02/04/17 08 :54; Start 02/04/17 at 09:00; Stop 03/06/17 at 08:59 Salmeterol Xinafoate/ Fluticasone (Advair Hfa 230/ 21) 2 puff BID INH Last administered on 02/05/17 07:48; Start 02/04/17 at 09:00; Stop 03/06/17 at 08: 59 Sertraline HCl (Zoloft) 75 mg QHS PO ; Start 02/08/17 at 21:00; Stop 02/12/17 at 20:59 Sertraline HCl (Zoloft) 100 mg QHS PO Last administered on 02/04/17 20:34; Start 02/04/17 at 21:00; Stop 02/08/17 at 20:59 Tiotropium [place] (Spiriva Handihaler) 1 inhalation DAILY@0800 INH Last administered on 02/04/17 08:32; Start 02/04/17 at 08:00; Stop 03/06/17 at 07: 59 Tramadol HCl (Ultram) 100 mg TID PRN PO PAIN Last administered on 02/04/17 17: 00; Start 02/04/17 at 04:00; Stop 02/11/17 at 03:59 Allergies Coded Allergies: No Known Drug Allergy (Verified Allergy, Unknown, 08/30/12) ABHIJEET FAYE MD Feb 05, 2017 10:21
[2017-02-05] MEDS: ANALGESIC BALM CRM 120 GM TOP SCH ×2 (11:57→21:25)
[2017-02-05] MEDS: DULoxetine 30 MG CAP (CYMBALTA) PO SCH ×2 (11:57→21:24)
[2017-02-05] MEDS: PANTOPRAZOLE 40MG TAB (PROTONIX) PO SCH (11:58)
[2017-02-05] MEDS: lamoTRIgine 100MG TAB PO SCH ×2 (11:58→21:24)
[2017-02-05] MEDS: FAMOTIDINE 20 MG TAB PO SCH ×2 (11:58→21:24)
[2017-02-05] MEDS: ASPIRIN 81 MG ENTERIC TAB PO SCH (11:58)
[2017-02-05] MEDS: BISOPROLOL FUMARATE 5 MG TAB PO SCH (11:58)
[2017-02-05] MEDS: LISINOPRIL *2.5 MG* TAB PO SCH (11:59)
[2017-02-05] MEDS: GABAPENTIN 400 MG CAP PO SCH ×3 (11:59→21:24)
[2017-02-05] MEDS: FLUTICASONE PROP 0.05% NASAL SPRAY 16 GM (FLONASE) SCH (11:59)
[2017-02-05 12:00] VITALS: BP 140/65
[2017-02-05] MEDS ORDERED: hydrOXYzine 25 MG TAB PO PRN (13:30)
[2017-02-05] MEDS: TIOTROPIUM INHALER/CAPSULE (SPIRIVA) INH SCH (13:48)
[2017-02-05 14:00] VITALS: BP 115/56
--- NOTE | 2017-02-05 15:08 | IPNPDOC ---
Date Seen The patient was seen on 02/05/17. Progress Note Hospitalist Progress Note Subjective: The patient is very agitated this morning, expressing frustration over not being given a washcloth or an opportunity to cleanup. She also states that no one answers her call button. She says she wants to go home. Objective: Physical Exam: Vitals: Vital Sign - Last 24 Hours 02/04/17 02/04/17 02/04/17 02/04/17 16:00 16:04 17:00 17:30 Temp 97.5 Pulse 74 Resp 24 16 16 B/P (MAP) 151/75 (100) Pulse Ox 92 2 95 O2 Delivery Nasal Cannula Nasal Cannula Nasal Cannula Room Air O2 Flow Rate 2.0 1.5 FiO2 93 02/04/17 02/04/17 02/04/17 02/04/17 19:26 19:31 23:55 23:55 Temp 98.4 97.7 Pulse 77 67 Resp 20 22 B/P (MAP) 117/57 (77) 143/78 (99) Pulse Ox 95 95 O2 Delivery Nasal Cannula Nasal Cannula Nasal Cannula Nasal Cannula O2 Flow Rate 2.0 2.0 2.0 2.0 02/05/17 02/05/17 02/05/17 02/05/17 03:51 03:51 11:58 11:59 Temp 97.2 Pulse 70 70 Resp 22 B/P (MAP) 137/67 (90) 137/67 137/67 Pulse Ox 92 O2 Delivery Nasal Cannula Nasal Cannula O2 Flow Rate 2.0 2.0 02/05/17 12:00 Temp 96.7 Pulse 74 Resp 22 B/P (MAP) 140/65 (90) Pulse Ox 90 O2 Delivery Nasal Cannula O2 Flow Rate 2.0 General: Awake, alert, tearful, very agitated HEENT: Normocephalic, atraumatic, moist mucous membranes CV: Regular rate and rhythm Lungs: Diffuse rhonchi with prolonged expiratory phase and wheeze in all lung cherry Abd: Soft, nontender, nondistended Extremities: No edema Neuro: Alert And oriented 3, normal speech Psych: Tearful, admits to being depressed, when we talk about the consequences of leaving AMA, including , she states, "that would be okay because my life is not worth living" Labs and Imaging: Laboratory Tests 02/05/17 07:38 Red Blood Count 4.72, Mean Corpuscular Volume 94.1, Mean Corpuscular Hemoglobin 30.9, Mean Corpuscular Hemoglobin Concent 32.9, Red Cell Distribution Width 14.0 , Calcium Level 9.1 Assessment and Plan: 61-year-old female with COPD on 2 L O2 chronically, SUYAPA noncompliant with Trilogy, chronic hypercarbia, CAD and history of CT, hypothyroidism, right adrenal nodule, diabetes mellitus type 2, chronic migraines, overactive bladder , anxiety and depression, bipolar disorder, fibromyalgia, GERD, hypertension who presented to the emergency department with shortness of breath and is admitted with a COPD exacerbation. 1. COPD exacerbation: Continue Levaquin, wean Solu-Medrol. Continue home Spiriva , Advair. Continue scheduled and as needed DuoNeb's. Patient is currently requiring only her home 2 L of oxygen. Currently holding home by mouth prednisone. CTA of the chest was negative for PE. RVP is positive for grewal virus 2. CAD and history of CT: The patient is currently without chest pain. Continue home aspirin, statin, beta leela. 3. Hypothyroidism: Continue home Synthroid. Free T4 is within normal limits. 4. Diabetes mellitus type 2: Holding home metformin. Sliding scale insulin while patient is in-house. A1c is 6.0. 5. Chronic migraines: Continue home Lamictal. 6. Anxiety and depression, fibromyalgia, bipolar disorder: Continue home Cymbalta, Neurontin, tramadol. The patient was evaluated by Dr. Wang of psychiatry this morning, because the patient expressed the desire to leave AMA, but also said that her life was not worth living and she did not care if she went home and . Dr. Wang has evaluated her and feels that she is not suicidal but was rather voicing frustrations with her current situation in the hospital. Dr. Wang tells me verbally that the patient has the capacity to choose to leave AMA at this time if she wishes. Dr. Wang does recommend that we stop her Zoloft and instead change her to Wellbutrin, and she also recommends adding hydroxyzine as needed for anxiety. She'll continue to follow the patient while she is here. 7. GERD: Continue home H2 leela and PPI. 8. Hypertension: Continue home beta leela, LESLIE inhibitor. 9. Left lower lobe lung nodules: These are seen on CTA of the chest and are noted to be unchanged from prior imaging. We will ensure that the patient is following with Dr. Pacheco for this. 10. Abdominal pain: The patient states that this is located mostly on her right side and epigastrium. She denies any blood in her stool or dark tarry stool. She states that this abdominal pain has been present for many years, and no doctor has been able to figure out what it is. LFTs are within normal limits. CT of the abdomen and pelvis showed only mild diffuse thickening of the sigmoid colon which may represent spasm or mild colitis. The location of this does not correspond with the patient's symptoms, and I do not think that it clinically explains her symptoms, nor do her symptoms give validity to the mild potential findings on CT of the abdomen and pelvis. Given the chronicity of this problem for several years, we will recommend that the patient follow-up with her outpatient physician for further workup. 11. Acute on chronic hypercarbic respiratory failure: The patient is a chronic retainer of CO2, but upon arrival, her PCO2 on ABG did appear to be elevated above her usual. The patient refused BiPAP at that time, and is still refusing BiPAP. Her ABG has continued to show steady improvement in her PCO2 with just the treatments that she will allow. DVT prophylaxis: Heparin Dispo: pending improvement in her breathing status; per Dr. Wang's discussion with me this morning, the patient does have the capacity to choose to leave AMA ; additionally, the patient evidently does not have any electricity at home secondary to not paying her bill; Case management is working with her [employer] to get that turned back on for her chronic O2; needs follow up with Dr. Pacheco for lung nodules seen on CT VS, I&O, 24H, Fishbone Vital Signs/I&O Vital Signs Date Time Temp Pulse Resp B/P (MAP) Pulse Ox O2 Delivery O2 Flow Rate FiO2 02/05/17 12:00 96.7 74 22 140/65 (90) 90 Nasal Cannula 2.0 02/04/17 16:00 93 I&O- Last 24 Hours up to 6 AM 02/05/17 05:59 Intake Total 1080 ml Output Total 2650 ml Balance -1570 ml Laboratory Data 24H LABS Laboratory Tests 2 02/04/17 17:12: Bedside Glucose (Misc Panel) 224H 02/04/17 20:22: Bedside Glucose (Misc Panel) 112H 02/05/17 07:38: Anion Gap 5L, Glomerular Filtration Rate > 60.0, Blood Urea Nitrogen 14, Creatinine 0.56, Sodium Level 139, Potassium Level 4.2, Chloride Level 97L, Carbon Dioxide Level 37H, Calcium Level 9.1, Magnesium Level 1.8, Lipase 197 02/05/17 11:53: Bedside Glucose (Misc Panel) 128H CBC/BMP Laboratory Tests 02/05/17 07:38 Red Blood Count 4.72, Mean Corpuscular Volume 94.1, Mean Corpuscular Hemoglobin 30.9, Mean Corpuscular Hemoglobin Concent 32.9, Red Cell Distribution Width 14.0 , Calcium Level 9.1 Microbiology Microbiology 02/04/17 Blood Culture - Preliminary, Resulted No growth after 24 hours . All specim... 02/04/17 Blood Culture - Preliminary, Resulted No growth after 24 hours . All specim... 02/05/17 Respiratory Virus Panel (PCR) ([facility]) - Final, Complete Coronavirus Nl63 02/05/17 Gram Stain - Final, Complete 02/05/17 Sputum Culture - Final, Complete AYSE VALENTINE Feb 05, 2017 15:07
[2017-02-05] MEDS: LevoFLOXacin IV 750 MG in APPROPRIATE DILUENT 1 EA IV SCH (17:51)
[2017-02-05] MEDS: ATORVASTATIN 20 MG TAB PO SCH (21:24)
[2017-02-05] MEDS: SERTRALINE 100 MG TAB PO SCH (21:25)
[2017-02-05 22:00] VITALS: BP 130/62
[2017-02-06] MEDS: IPRATROPIUM 0.5MG/ALBUTEROL 2.5MG INH SOL UD 3ML (DUONEB)(J7620) NEB SCH ×4 (02:00→20:00)
[2017-02-06 06:00] VITALS: BP 122/78
[2017-02-06] MEDS: methylPREDNISolone INJ 125 MG/2 ML VIAL (J2930) IV SCH ×2 (06:01→13:55)
[2017-02-06] MEDS: LEVOTHYROXINE 25MCG TABLET (0.025MG) PO SCH (06:01)
[2017-02-06] MEDS: HEPARIN SOD (PORCINE) 5000 UNITS/ML VIAL SC SCH ×3 (06:01→21:13)
[2017-02-06 06:54] LABS: MEAN CORPUSCULAR HEMOGLOBIN 30.8 pg (27.0-33.0); MEAN CORPUSCULAR HGB CONC 32.8 g/dl (32.0-36.5); WHITE BLOOD COUNT 9.2 K/mm3 (4.0-10.0)
[2017-02-06 07:09] LABS: ANION GAP 7 MEQ/L (8-16); BLOOD UREA NITROGEN 14 MG/DL (7-18); CALCIUM LEVEL 9.2 MG/DL (8.5-10.1); CARBON DIOXIDE LEVEL 37 MEQ/L (21-32); CHLORIDE LEVEL 99 MEQ/L (98-107); CREATININE FOR GFR 0.49 MG/DL (0.55-1.02); GLOMERULAR FILTRATION RATE > 60.0 (>51); GLUCOSE, FASTING 133 MG/DL (70-105); MAGNESIUM LEVEL 1.8 MG/DL (1.8-2.4); POTASSIUM SERUM 4.1 MEQ/L (3.5-5.1); SODIUM LEVEL 143 MEQ/L (136-145)
[2017-02-06] MEDS: TIOTROPIUM INHALER/CAPSULE (SPIRIVA) INH SCH (07:15)
[2017-02-06] MEDS: ADVAIR HFA 230/21MCG INHALER INH SCH ×2 (07:16→20:29)
[2017-02-06] MEDS: HumaLOG INSULIN (NovoLOG) PER UNIT SC SCH ×4 (08:28→20:59)
[2017-02-06] MEDS: LISINOPRIL *2.5 MG* TAB PO SCH (08:29)
[2017-02-06] MEDS: GABAPENTIN 400 MG CAP PO SCH ×3 (08:29→21:12)
[2017-02-06] MEDS: BISOPROLOL FUMARATE 5 MG TAB PO SCH (08:29)
[2017-02-06] MEDS: FAMOTIDINE 20 MG TAB PO SCH ×2 (08:30→21:12)
[2017-02-06] MEDS: PANTOPRAZOLE 40MG TAB (PROTONIX) PO SCH (08:31)
[2017-02-06] MEDS: lamoTRIgine 100MG TAB PO SCH ×2 (08:31→21:12)
[2017-02-06] MEDS: ASPIRIN 81 MG ENTERIC TAB PO SCH (08:31)
[2017-02-06] MEDS: DULoxetine 30 MG CAP (CYMBALTA) PO SCH ×2 (08:33→21:12)
[2017-02-06] MEDS: buPROPion 75 MG TAB PO SCH (08:33)
[2017-02-06] MEDS: ANALGESIC BALM CRM 120 GM TOP SCH ×2 (08:34→21:25)
[2017-02-06] MEDS: FLUTICASONE PROP 0.05% NASAL SPRAY 16 GM (FLONASE) SCH (08:34)
[2017-02-06] MEDS: ONDANSETRON 4 MG TAB (S0181) PO PRN (10:25)
[2017-02-06 14:00] VITALS: BP 119/81
--- NOTE | 2017-02-06 16:03 | IPNPDOC ---
Date Seen The patient was seen on 02/06/17. Progress Note Hospitalist Progress Note Subjective: The patient is again tearful but does state that her breathing is improving and she is coughing up a lot of phlegm Objective: Physical Exam: Vitals: Vital Sign - Last 24 Hours 02/05/17 02/05/17 02/05/17 02/05/17 20:15 22:00 22:00 22:00 Temp 98.2 Pulse 77 76 Resp 20 20 B/P (MAP) 130/62 (84) Pulse Ox 96 93 O2 Delivery Nasal Cannula Nasal Cannula Nasal Cannula Nasal Cannula O2 Flow Rate 2.0 2.0 2.0 2.0 02/06/17 02/06/17 02/06/17 02/06/17 06:00 08:29 08:29 08:30 Temp 97.8 Pulse 71 71 Resp 18 B/P (MAP) 122/78 (93) 122/78 122/78 Pulse Ox 89 O2 Delivery Nasal Cannula Nasal Cannula O2 Flow Rate 2.0 2.0 FiO2 93 02/06/17 14:00 Temp 97.0 Pulse 81 Resp 19 B/P (MAP) 119/81 (94) Pulse Ox 92 O2 Delivery Nasal Cannula O2 Flow Rate 2.0 General: Awake, alert, tearfu HEENT: Normocephalic, atraumatic, moist mucous membranes CV: Regular rate and rhythm Lungs: Diffuse rhonchi with prolonged expiratory phase; wheeze is decreased from yesterday Abd: Soft, nontender, nondistended Extremities: No edema Neuro: Alert And oriented 3, normal speech Psych: tearful Labs and Imaging: Laboratory Tests 02/06/17 05:39 Red Blood Count 4.71, Mean Corpuscular Volume 94.0, Mean Corpuscular Hemoglobin 30.8, Mean Corpuscular Hemoglobin Concent 32.8, Red Cell Distribution Width 14.0 , Calcium Level 9.2 Assessment and Plan: 61-year-old female with COPD on 2 L O2 chronically, SUYAPA noncompliant with Trilogy, chronic hypercarbia, CAD and history of [place], hypothyroidism, right adrenal nodule, diabetes mellitus type 2, chronic migraines, overactive bladder , anxiety and depression, bipolar disorder, fibromyalgia, GERD, hypertension who presented to the emergency department with shortness of breath and is admitted with a COPD exacerbation. 1. COPD exacerbation: Continue Levaquin, wean Solu-Medrol. Continue home Spiriva , Advair. Continue scheduled and as needed DuoNeb's. Patient is currently requiring only her home 2 L of oxygen. Currently holding home by mouth prednisone. CTA of the chest was negative for PE. RVP is positive for grewal virus 2. CAD and history of [place]: The patient is currently without chest pain. Continue home aspirin, statin, beta leela. 3. Hypothyroidism: Continue home Synthroid. Free T4 is within normal limits. 4. Diabetes mellitus type 2: Holding home metformin. Sliding scale insulin while patient is in-house. A1c is 6.0. 5. Chronic migraines: Continue home Lamictal. 6. Anxiety and depression, fibromyalgia, bipolar disorder: Continue home Cymbalta, Neurontin, tramadol. The patient was evaluated by Dr. Wang of psychiatry. Dr. Wang does recommend that we stop her Zoloft and instead change her to Wellbutrin, and she also recommends adding hydroxyzine as needed for anxiety. I have begun to wean the zoloft and have started wellutrin. She' ll continue to follow the patient while she is here. 7. GERD: Continue home H2 leela and PPI. 8. Hypertension: Continue home beta leela, LESLIE inhibitor. 9. Left lower lobe lung nodules: These are seen on CTA of the chest and are noted to be unchanged from prior imaging. We will ensure that the patient is following with Dr. Pacheco for this. 10. Abdominal pain: The patient states that this is located mostly on her right side and epigastrium. She denies any blood in her stool or dark tarry stool. She states that this abdominal pain has been present for many years, and no doctor has been able to figure out what it is. LFTs are within normal limits. CT of the abdomen and pelvis showed only mild diffuse thickening of the sigmoid colon which may represent spasm or mild colitis. The location of this does not correspond with the patient's symptoms, and I do not think that it clinically explains her symptoms, nor do her symptoms give validity to the mild potential findings on CT of the abdomen and pelvis. Given the chronicity of this problem for several years, we will recommend that the patient follow-up with her outpatient physician for further workup. Pain seems to be improved today. 11. Acute on chronic hypercarbic respiratory failure: The patient is a chronic retainer of CO2, but upon arrival, her PCO2 on ABG did appear to be elevated above her usual. The patient refused BiPAP at that time, and is still refusing BiPAP. Her ABG has continued to show steady improvement in her PCO2 with just the treatments that she will allow. DVT prophylaxis: Heparin Dispo: pending improvement in her breathing status; Case management has confirmed that her electricity has been turned back on; needs follow up with Dr. Pacheco for lung nodules seen on CT VS, I&O, 24H, Fishbone Vital Signs/I&O Vital Signs Date Time Temp Pulse Resp B/P (MAP) Pulse Ox O2 Delivery O2 Flow Rate FiO2 02/06/17 14:00 97.0 81 19 119/81 (94) 92 Nasal Cannula 2.0 02/06/17 08:30 93 I&O- Last 24 Hours up to 6 AM 02/06/17 06:00 Intake Total 1800 ml Output Total 1400 ml Balance 400 ml Laboratory Data 24H LABS Laboratory Tests 2 02/05/17 17:00: Bedside Glucose (Misc Panel) 145H 02/05/17 20:37: Bedside Glucose (Misc Panel) 214H 02/06/17 05:39: Anion Gap 7L, Glomerular Filtration Rate > 60.0, Blood Urea Nitrogen 14, Creatinine 0.49L, Sodium Level 143, Potassium Level 4.1, Chloride Level 99, Carbon Dioxide Level 37H, Calcium Level 9.2, Magnesium Level 1.8 02/06/17 11:16: Bedside Glucose (Misc Panel) 208H CBC/BMP Laboratory Tests 02/06/17 05:39 Red Blood Count 4.71, Mean Corpuscular Volume 94.0, Mean Corpuscular Hemoglobin 30.8, Mean Corpuscular Hemoglobin Concent 32.8, Red Cell Distribution Width 14.0 , Calcium Level 9.2 Microbiology Microbiology 02/04/17 Blood Culture - Preliminary, Resulted No Growth after 48 hours. All Specime... 02/04/17 Blood Culture - Preliminary, Resulted No Growth after 48 hours. All Specime... 02/05/17 Respiratory Virus Panel (PCR) ([facility]) - Final, Complete Coronavirus Nl63 02/05/17 Gram Stain - Final, Complete 02/05/17 Sputum Culture - Final, Complete AYSE VALENTINE Feb 06, 2017 16:03
[2017-02-06] MEDS: LevoFLOXacin 750 MG TABLET PO SCH (16:11)
[2017-02-06] MEDS: ATORVASTATIN 20 MG TAB PO SCH (21:11)
[2017-02-06] MEDS: SERTRALINE 100 MG TAB PO SCH (21:11)
[2017-02-06] MEDS: methylPREDNISolone INJ 40 MG/1 ML VIAL (J2920) IV SCH (21:14)
[2017-02-06] MEDS: MIRALAX *UNIT DOSE* 17GM PACKET PO PRN (21:26)
[2017-02-06 22:00] VITALS: BP 145/69
[2017-02-07] MEDS: IPRATROPIUM 0.5MG/ALBUTEROL 2.5MG INH SOL UD 3ML (DUONEB)(J7620) NEB SCH ×3 (01:17→13:52)
[2017-02-07] MEDS: LevoFLOXacin 750 MG TABLET PO SCH (05:54)
[2017-02-07] MEDS: LEVOTHYROXINE 25MCG TABLET (0.025MG) PO SCH (05:55)
[2017-02-07] MEDS: HEPARIN SOD (PORCINE) 5000 UNITS/ML VIAL SC SCH ×2 (05:56→14:00)
[2017-02-07] MEDS: methylPREDNISolone INJ 40 MG/1 ML VIAL (J2920) IV SCH ×2 (05:56→15:00)
[2017-02-07 06:00] VITALS: BP 140/89
[2017-02-07 06:21] LABS: ANION GAP 8 MEQ/L (8-16); BLOOD UREA NITROGEN 14 MG/DL (7-18); CALCIUM LEVEL 8.8 MG/DL (8.5-10.1); CARBON DIOXIDE LEVEL 35 MEQ/L (21-32); CHLORIDE LEVEL 98 MEQ/L (98-107); CREATININE FOR GFR 0.48 MG/DL (0.55-1.02); GLOMERULAR FILTRATION RATE > 60.0 (>51); GLUCOSE, FASTING 178 MG/DL (70-105); SODIUM LEVEL 141 MEQ/L (136-145)
[2017-02-07 06:23] LABS: MEAN CORPUSCULAR HEMOGLOBIN 30.1 pg (27.0-33.0); MEAN CORPUSCULAR HGB CONC 31.7 g/dl (32.0-36.5); MEAN CORPUSCULAR VOLUME 94.8 fl (80.0-96.0); WHITE BLOOD COUNT 12.2 K/mm3 (4.0-10.0)
[2017-02-07] MEDS: ONDANSETRON 4 MG TAB (S0181) PO PRN (06:40)
[2017-02-07] MEDS: traMADol 50 MG TAB PO PRN (06:41)
[2017-02-07] MEDS: TIOTROPIUM INHALER/CAPSULE (SPIRIVA) INH SCH (07:34)
[2017-02-07] MEDS: ADVAIR HFA 230/21MCG INHALER INH SCH (07:34)
[2017-02-07] MEDS: HumaLOG INSULIN (NovoLOG) PER UNIT SC SCH ×2 (08:29→12:21)
[2017-02-07] MEDS: ANALGESIC BALM CRM 120 GM TOP SCH (08:29)
[2017-02-07] MEDS: LISINOPRIL *2.5 MG* TAB PO SCH (08:30)
[2017-02-07] MEDS: ASPIRIN 81 MG ENTERIC TAB PO SCH (08:31)
[2017-02-07] MEDS: FAMOTIDINE 20 MG TAB PO SCH (08:31)
[2017-02-07] MEDS: lamoTRIgine 100MG TAB PO SCH (08:31)
[2017-02-07] MEDS: buPROPion 75 MG TAB PO SCH (08:31)
[2017-02-07] MEDS: PANTOPRAZOLE 40MG TAB (PROTONIX) PO SCH (08:31)
[2017-02-07] MEDS: DULoxetine 30 MG CAP (CYMBALTA) PO SCH (08:31)
[2017-02-07 08:37] VITALS: BP 140/89
[2017-02-07] MEDS: BISOPROLOL FUMARATE 5 MG TAB PO SCH (08:37)
[2017-02-07] MEDS: FLUTICASONE PROP 0.05% NASAL SPRAY 16 GM (FLONASE) SCH (08:41)
[2017-02-07] MEDS: GABAPENTIN 400 MG CAP PO SCH (08:43)
[2017-02-07] MEDS: MIRALAX *UNIT DOSE* 17GM PACKET PO PRN (12:21)
[2017-02-07] MEDS ORDERED: IPRASOL4 NEB (12:25)
[2017-02-07] MEDS ORDERED: BUPR75TA5 PO (12:25)
[2017-02-07] MEDS ORDERED: PRED10TA2 PO (12:25)
[2017-02-07] MEDS ORDERED: HYDR-3363 PO (12:25)
[2017-02-07] MEDS ORDERED: SERT25TA PO (12:25)
[2017-02-07] MEDS ORDERED: LEVA750T7 PO (12:25)
[2017-02-07 14:00] VITALS: BP 137/73
--- NOTE | 2017-02-07 14:06 | DS.PDOC ---
Discharge Summary General Date of Admission Feb 04, 2017 at 03:06 Date of Discharge 02/07/2017 Discharge Summary DISCHARGE SUMMARY DATE OF ADMISSION: 02/04/2017 DATE OF DISCHARGE: 02/07/2017 PRIMARY CARE PHYSICIAN: SANKET Ly DISCHARGE DIAGNOS(E)S: COPD exacerbation Grewal virus HPI & HOSPITAL COURSE: 61-year-old female with COPD on 2 L O2 chronically, SUYAPA noncompliant with Trilogy, chronic hypercarbia, CAD and history of [place], hypothyroidism, right adrenal nodule, diabetes mellitus type 2, chronic migraines, overactive bladder , anxiety and depression, bipolar disorder, fibromyalgia, GERD, hypertension who presented to the emergency department with shortness of breath and is admitted with a COPD exacerbation. 1. COPD exacerbation: Continue Levaquin, change from Solu-Medrol to prednisone taper. Continue home Spiriva, Advair. Continue DuoNeb's. Patient is currently requiring only her home 2 L of oxygen. Currently holding home by mouth prednisone but will resume after finishing taper. CTA of the chest was negative for PE. RVP is positive for grewal virus 2. CAD and history of [place]: The patient is currently without chest pain. Continue home aspirin, statin, beta leela. 3. Hypothyroidism: Continue home Synthroid. Free T4 is within normal limits. 4. Diabetes mellitus type 2: Holding home metformin but will resume at discharge. Sliding scale insulin while patient is in-house. A1c is 6.0. 5. Chronic migraines: Continue home Lamictal. 6. Anxiety and depression, fibromyalgia, bipolar disorder: Continue home Cymbalta, Neurontin, tramadol. The patient was evaluated by Dr. Wang of psychiatry. Dr. Wang does recommend that we stop her Zoloft and instead change her to Wellbutrin, and she also recommends adding hydroxyzine as needed for anxiety. I have begun to wean the zoloft and have started wellutrin. She' ll continue to follow the patient while she is here and the patient tells me she is on the waitlist for mental health as an outpatient. 7. GERD: Continue home meds. 8. Hypertension: Continue home beta leela, LESLIE inhibitor. 9. Left lower lobe lung nodules: These are seen on CTA of the chest and are noted to be unchanged from prior imaging. We will ensure that the patient is following with Dr. Pacheco for this. 10. Abdominal pain: The patient states that this is located mostly on her right side and epigastrium. She denies any blood in her stool or dark tarry stool. She states that this abdominal pain has been present for many years, and no doctor has been able to figure out what it is. LFTs are within normal limits. CT of the abdomen and pelvis showed only mild diffuse thickening of the sigmoid colon which may represent spasm or mild colitis. The location of this does not correspond with the patient's symptoms, and I do not think that it clinically explains her symptoms, nor do her symptoms give validity to the mild potential findings on CT of the abdomen and pelvis. Given the chronicity of this problem for several years, we will recommend that the patient follow-up with her outpatient physician for further workup. Pain seems to be improved the last couple days. 11. Acute on chronic hypercarbic respiratory failure: The patient is a chronic retainer of CO2, but upon arrival, her PCO2 on ABG did appear to be elevated above her usual. The patient refused BiPAP at that time, and is still refusing BiPAP. Her ABG has continued to show steady improvement in her PCO2 with just the treatments that she will allow. DVT prophylaxis: Heparin PHYSICAL EXAMINATION ON DISCHARGE: VITAL SIGNS: Vital Sign - Last 24 Hours 02/06/17 02/06/17 02/07/17 02/07/17 21:30 22:00 02:33 06:00 Temp 97.7 96.8 Pulse 96 72 91 Resp 21 21 21 B/P (MAP) 145/69 (94) 140/89 (106) Pulse Ox 92 94 95 O2 Delivery Nasal Cannula Room Air Room Air Room Air O2 Flow Rate 2.0 2.0 FiO2 93 02/07/17 02/07/17 02/07/17 02/07/17 06:41 08:00 08:29 08:30 Resp 16 18 B/P (MAP) 140/89 Pulse Ox 93 O2 Delivery Nasal Cannula Nasal Cannula O2 Flow Rate 2.0 2.0 FiO2 93 02/07/17 08:37 Pulse 91 B/P (MAP) 140/89 General: Awake, alert, NAD HEENT: Normocephalic, atraumatic, moist mucous membranes CV: Regular rate and rhythm Lungs: diffusely coarse with prolonged expiration but no distince wheeze or rhonchi Abd: Soft, nontender, nondistended Extremities: No edema Neuro: Alert And oriented 3, normal speech Psych: calm and cooperative DISPOSITION: Home DISCHARGE INSTRUCTIONS: PCP Stefani Vo within [address] Pacheco within 2 weeks; patient will need continued monitoring and evaluation of the left lower lobe lung nodules seen on CTA. If symptoms return, or if you experience worsening of your symptoms, please call your doctor or return to the emergency department. ITEMS THAT NEED OUTPATIENT FOLLOWUP: Continued monitoring and evaluation by Dr. Pacheco of the left lower lobe lung nodules seen on CTA Patient was seen and examined by me on the day of discharge, and I spent a total time of greater than 30 minutes on this discharge. Vital Signs/I&Os Vital Signs Date Time Temp Pulse Resp B/P (MAP) Pulse Ox O2 Delivery O2 Flow Rate FiO2 02/07/17 08:37 91 140/89 02/07/17 08:29 18 93 Nasal Cannula 2.0 02/07/17 08:00 93 02/07/17 06:00 96.8 I&O- Last 24 Hours up to 6 AM 02/07/17 06:00 Intake Total 3080 ml Output Total 0 ml Balance 3080 ml Laboratory Data Labs 24H Laboratory Tests 2 02/06/17 16:16: Bedside Glucose (Misc Panel) 259H 02/06/17 20:46: Bedside Glucose (Misc Panel) 129H 02/07/17 05:28: Anion Gap 8, Glomerular Filtration Rate > 60.0, Blood Urea Nitrogen 14, Creatinine 0.48L, Sodium Level 141, Potassium Level 4.0, Chloride Level 98, Carbon Dioxide Level 35H, Calcium Level 8.8, Magnesium Level 2.0 02/07/17 11:34: Bedside Glucose (Misc Panel) 140H CBC/BMP Laboratory Tests 02/07/17 05:28 Red Blood Count 4.86, Mean Corpuscular Volume 94.8, Mean Corpuscular Hemoglobin 30.1, Mean Corpuscular Hemoglobin Concent 31.7 L, Red Cell Distribution Width 14.0, Calcium Level 8.8 FSBS Laboratory Tests Test 02/06/17 16:16 02/06/17 20:46 02/07/17 11:34 Range/Units Bedside Glucose (Misc Panel) 259 129 140 70-105 MG/DL Microbiology Microbiology 02/04/17 Blood Culture - Preliminary, Resulted No Growth after 72 hours. All specime... 02/04/17 Blood Culture - Preliminary, Resulted No Growth after 72 hours. All specime... 02/05/17 Respiratory Virus Panel (PCR) ([facility]) - Final, Complete Coronavirus Nl63 02/05/17 Gram Stain - Final, Complete 02/05/17 Sputum Culture - Final, Complete Discharge Medications Scheduled (Flonase Allergy Relief) 50 Mcg/Act Spr, 1 SPRAY NA DAILY, (Reported) Aspirin (Aspirin EC) 81 Mg Tabec, 81 MG PO DAILY, (Reported) Atorvastatin Calcium (Lipitor) 80 Mg Tab, 80 MG PO QHS, (Reported) Bisoprolol Fumarate (Bisoprolol Fumarate) 5 Mg Tab, 2.5 MG PO DAILY, (Reported) Bupropion HCl (Bupropion HCl) 75 Mg Tab, 75 MG PO DAILY Duloxetine Hcl (Duloxetine HCl) 60 Mg Cap, 60 MG PO DAILY, (Reported) Duloxetine Hcl (Duloxetine HCl) 30 Mg Cap, 30 MG PO QHS, (Reported) Gabapentin (Gabapentin) 800 Mg Tab, 800 MG PO TID, (Reported) Lamotrigine (LaMICtal) 100 Mg Tab, 100 MG PO BID, (Reported) Levofloxacin Hemihydrate (Levaquin) 750 Mg Tab, 750 MG PO DAILY@06 Levothyroxine Sodium (Synthroid) 50 Mcg Tab, 25 MCG PO DAILY, (Reported) Lisinopril (Lisinopril) 2.5 Mg Tab, 2.5 MG PO DAILY, (Reported) Metformin Hydrochloride (Metformin HCl) 1,000 Mg Tab, 1,000 MG PO BID, (Reported ) Naproxen Sodium (Naproxen Sodium) 500 Mg Tab, 500 MG PO BID, (Reported) Pantoprazole Sodium (Pantoprazole Sodium) 40 Mg Tab, 40 MG PO DAILY, (Reported) Prednisone (Prednisone) 10 Mg Tab, 10 MG PO TAPER 4tabs qday x3days then 3tabs qday x3days then 2tabs qday x3days then 1tab qday x3days then resume home 5mg PO qday predni Salmeterol/Fluticasone (Advair Hfa 230-21 Mcg/Act) 1 Aer Aer, 1 PUFF INH BID, ( Reported) Sertraline Hcl (Sertraline HCl) 25 Mg Tab, 25 MG PO ASDIRECTED 3tabs qHS x1wk then 2tabs qHS x1wk then 1tab qHS x1wk then stop Tiotropium [place] Monohydrate (Spiriva Handihaler) 18 Mcg Cap, 1 INHALATION INH DAILY, (Reported) Scheduled PRN Albuterol Sulfate (Ventolin Hfa) 200 Puff/8 Gm Aers, 2 PUFF INH Q4H PRN for SHORTNESS OF BREATH, (Reported) Albuterol Sulfate (Albuterol Sulfate) 2.5 Mg/3 Ml Nebu, 2.5 MG INH Q4H PRN for SHORTNESS OF BREATH, (Reported) Albuterol/Ipratropium (Ipratropium [place]/Albut 0.5-2.5 (3) mg/3Ml) 1 Sommer Sommer, 3 ML NEB Q2HP PRN for SOB/WHEEZING Hydroxyzine HCl (Hydroxyzine HCl) 25 Mg Tab, 75 MG PO Q6HP PRN for ANXIETY Menthol (Bengay Vanishing Scent) 2.5 % Gel, 1 DOSE EXT QID PRN for PAIN, ( Reported) PLACES ON BACK AND HIPS Tizanidine HCl (Tizanidine HCl) 2 Mg Tab, 2 MG PO TID PRN for MUSCLE SPASMS, ( Reported) Tramadol HCl (Tramadol HCl) 50 Mg Tab, 100 MG PO TID PRN for PAIN, (Reported) Allergies Coded Allergies: No Known Drug Allergy (Verified Allergy, Unknown, 08/30/12) AYSE VALENTINE Feb 07, 2017 14:06
[2017-02-08] MEDS ORDERED: SERTRALINE HCL 25 MG TABLET PO SCH (21:00)
[2017-02-12] MEDS ORDERED: SERTRALINE HCL 50 MG TAB PO SCH (21:00)
[2017-02-16] MEDS ORDERED: SERTRALINE HCL 25 MG TABLET PO SCH (21:00)
[2017-03-08] MEDS ORDERED: IPRASOL4 INH (02:47)
[2017-03-08] MEDS ORDERED: HYDR-3363 PO (02:47)
[2017-03-08] MEDS ORDERED: BUPR75TA5 PO (02:47)
[2017-03-08] MEDS ORDERED: LEVO-84 PO (02:47)
[2017-03-08] MEDS ORDERED: PRED10TA2 PO (02:47)
== END 2017-02-07 16:10 | disposition home or self-care (01) | DRG 190 ==
LOC: M ED 01:22 → M ED INP 03:06 → M MSPAV 02-05 13:11
PROVIDERS: ADMIT Internal Medicine; ATTEND Hospitalist
DX: J44.1 Chronic obstructive pulmonary disease with (acute) exacerbation (principal); J96.22 Acute and chronic respiratory failure with hypercapnia; F31.81 Bipolar II disorder; G47.33 Obstructive sleep apnea (adult) (pediatric); I25.10 Atherosclerotic heart disease of native coronary artery without angina pectoris; E03.9 Hypothyroidism, unspecified; E11.9 Type 2 diabetes mellitus without complications; M79.7 Fibromyalgia; K21.9 Gastro-esophageal reflux disease without esophagitis; R91.8 Other nonspecific abnormal finding of lung field; I10 Essential (primary) hypertension; K44.9 Diaphragmatic hernia without obstruction or gangrene; F17.200 Nicotine dependence, unspecified, uncomplicated; G43.709 Chronic migraine without aura, not intractable, without status migrainosus; B97.29 Other coronavirus as the cause of diseases classified elsewhere; Z91.19 Patient's noncompliance with other medical treatment and regimen; I25.2 Old myocardial infarction; Z99.81 Dependence on supplemental oxygen; Z79.82 Long term (current) use of aspirin; Z79.84 Long term (current) use of oral hypoglycemic drugs; Z79.52 Long term (current) use of systemic steroids; Z79.899 Other long term (current) drug therapy; Z90.49 Acquired absence of other specified parts of digestive tract; Z98.51 Tubal ligation status

== ENCOUNTER 2017-04-12 02:57 | Inpatient (IN) | payer MEDICARE, MEDICAID ==
[~2017-04-12] VITALS: Ht 165.1 cm; Wt 86.4 kg
[~2017-04-12 02:57] MED LIST changes: +ADVA230A INH; +HYDR-3363 PO; +IPRASOL4 INH; +IPRASOL4 NEB; +LEVO-84 PO; +PANT40TA2 PO; +SERT25TA PO; +TIZA2TA PO
[2017-04-12 03:38] LABS: BASO % 0.3 % (0.0-1.0); EOS # 0.1 10^3/uL (0.0-0.50); EOS % 0.7 % (0.0-3.0); IMMATURE GRANULOCYTE % 0.4 % (0-0); LYMPH # 2.5 10^3/uL (1.5-4.5); MEAN CORPUSCULAR HEMOGLOBIN 30.5 pg (27.0-33.0); MEAN CORPUSCULAR HGB CONC 32.5 g/dl (32.0-36.5); MEAN CORPUSCULAR VOLUME 93.8 fl (80.0-96.0); MONO # 0.7 10^3/uL (0.0-0.8); MONO % 4.8 % (0.0-5.0); NEUTROPHILS # 10.4 10^3/uL (1.8-7.7); NEUTROPHILS % 75.8 % (36.0-66.0); PLATELET COUNT, AUTOMATED 315 10^3/uL (150-450); RED CELL DISTRIBUTION WIDTH 14.8 % (11.5-14.5); WHITE BLOOD COUNT 13.7 10^3/uL (4.0-10.0)
[2017-04-12] MEDS: IPRATROPIUM 0.5MG/ALBUTEROL 2.5MG INH SOL UD 3ML (DUONEB)(J7620) NEB SCH ×6 (03:40→23:34)
[2017-04-12 03:44] LABS: ABG HCO3 26.6 MEQ/L (22.0-26.0); ABG PARTIAL PRESSURE CO2 56.2 mmHg (35.0-45.0); ABG PARTIAL PRESSURE O2 92.2 mmHg (75.0-100.0); ABG STANDARD HCO3 23.6 MEQ/L (22.0-26.0); ABG TOTAL CO2 28.3 MEQ/L (22.0-29.0); ABG pH (ARTERIAL) 7.293 UNITS (7.350-7.450)
[2017-04-12 03:54] LABS: CHLORIDE LEVEL 104 MEQ/L (98-107)
[2017-04-12] MEDS ORDERED: methylPREDNISolone INJ 125 MG/2 ML VIAL (J2930) IV ONE (04:00)
[2017-04-12 04:09] LABS: BLOOD UREA NITROGEN 22 MG/DL (7-18); CALCIUM LEVEL 8.2 MG/DL (8.5-10.1); CARBON DIOXIDE LEVEL 32 MEQ/L (21-32); CREATININE FOR GFR 0.49 MG/DL (0.55-1.02); GLUCOSE, FASTING 164 MG/DL (70-105)
[2017-04-12] MEDS ORDERED: ISOVUE-370 76% 100ML VIAL (Q9967) As Ordered ONE (04:18)
[2017-04-12] MEDS ORDERED: hydrALAZINE INJ 20 MG/ML VIAL IV ONE (05:00)
[2017-04-12 05:09] LABS: ANION GAP 6 MEQ/L (8-16); POTASSIUM SERUM 3.9 MEQ/L (3.5-5.1); SODIUM LEVEL 142 MEQ/L (136-145)
--- NOTE | 2017-04-12 05:20 | REPUSA ---
CLINICAL HISTORY: Dyspnea, exclude PE. TECHNIQUE: Multiple incremental axial, coronal and oblique images are obtained from the thoracic inle t to the upper abdomen. Intravenous contrast material was administered as per pulmonary embolism prot ocol. COMMENTS: Comparison to prior exam performed on 02/04/2017. Unchanged noncalcified pulmonary nodules in the left lower lobe with the largest measuring 7 mm. Unchanged bilateral basilar atelectatic pulmonary changes. There is excellent opacification of pulmonary arterial system without evidence for pulmonary embolism . Aorta is of normal caliber without evidence for dissection or aneurysm. There is no evidence of pleural or parenchymal mass. There are no pleural effusions. There is no evid ence of hilar or mediastinal lymphadenopathy. The heart and great vessels are within normal limits. Images of the upper abdomen demonstrate no evidence of adrenal mass. The bony structures are free of lytic or blastic lesions. Multilevel degenerative changes are seen in volving the visualized thoracolumbar spine. Scattered calcifications are seen involving the aorta and major branches compatible with atherosclero sis. Unchanged cardiomegaly. IMPRESSION: No evidence for pulmonary embolism. Unchanged left lower lobe pulmonary nodules. Unchanged bilateral basilar atelectatic airspace disease in the lower lobes. Thank you for your kind referral of this patient.
[2017-04-12 05:37] LABS: ABG BASE EXCESS 3.9 (-2.0-2.0); ABG HCO3 30.9 MEQ/L (22.0-26.0); ABG PARTIAL PRESSURE CO2 55.7 mmHg (35.0-45.0); ABG PARTIAL PRESSURE O2 74.7 mmHg (75.0-100.0); ABG STANDARD HCO3 27.9 MEQ/L (22.0-26.0); ABG TOTAL CO2 32.6 MEQ/L (22.0-29.0); ABG pH (ARTERIAL) 7.362 UNITS (7.350-7.450)
[2017-04-12] MEDS ORDERED: IPRATROPIUM 0.5MG/ALBUTEROL 2.5MG INH SOL UD 3ML (DUONEB)(J7620) NEB PRN (06:00)
[2017-04-12] MEDS ORDERED: PRED5TA PO (06:14)
[2017-04-12] MEDS ORDERED: ADV250INH INH (06:14)
[2017-04-12] MEDS ORDERED: DEXTROSE 50% 50 ML SYRINGE IV PRN (06:30)
[2017-04-12] MEDS ORDERED: GLUCAGON FOR INJ 1 MG VIAL (J1610) SC PRN (06:30)
[2017-04-12] MEDS ORDERED: GLUCOSE 4 GM CHEW TABLET PO PRN (06:30)
[2017-04-12 07:55] VITALS: BP 128/74
[2017-04-12] MEDS ORDERED: PANTOPRAZOLE 40MG TAB (PROTONIX) PO SCH (09:00)
[2017-04-12] MEDS: GABAPENTIN 400 MG CAP PO SCH ×3 (09:48→21:37)
[2017-04-12] MEDS: DULoxetine 30 MG CAP (CYMBALTA) PO SCH ×2 (09:48→21:37)
[2017-04-12] MEDS: predniSONE 20 MG TAB PO SCH (09:49)
[2017-04-12] MEDS: BISOPROLOL FUM 2.5 MG PER 1/2TAB PO SCH (09:49)
[2017-04-12] MEDS: ASPIRIN 81 MG ENTERIC TAB PO SCH (09:50)
[2017-04-12] MEDS: lamoTRIgine 100MG TAB PO SCH ×2 (09:50→21:37)
[2017-04-12] MEDS: PANTOPRAZOLE 40MG TAB (PROTONIX) PO SCH (09:50)
[2017-04-12] MEDS: LISINOPRIL *2.5 MG* TAB PO SCH (09:50)
[2017-04-12] MEDS: LEVOTHYROXINE 50MCG TABLET (0.05MG) PO SCH (10:02)
[2017-04-12] MEDS: HumaLOG INSULIN (NovoLOG) PER UNIT SC SCH ×3 (10:03→17:30)
[2017-04-12] MEDS: traMADol 50 MG TAB PO PRN ×2 (10:06→20:28)
[2017-04-12] MEDS ORDERED: NICOTINE 14 MG/24 HR TRANSDERMAL TD ONE (10:45)
[2017-04-12] MEDS ORDERED: ALBUTEROL SULFATE 2.5 MG/0.5 ML INH NEB SOLN INH PRN (10:45)
--- NOTE | 2017-04-12 11:03 | HPE ---
DATE OF ADMISSION: 04/12/2017 The patient, Constance Zavala, is a 61-year-old female. The patient comes in with chief complaint of sudden onset of shortness of breath. The patient states that she was feeling slightly short of breath yesterday when she went to her worship's [employer] fair where they were selling mostly [employer] ornaments. There was not, as per the patient, any dust or chemicals loose in the area. The patient did however note that she was feeling a little short of breath during the whole period of her outdoor excursion. Nevertheless, she did not feel particularly bad. The patient says that she went to sleep at a normal time; however, she woke up in the middle of the night with sudden onset of shortness of breath. The patient states that she thereafter called emergency medical services (EMS). EMS came, brought her into the emergency department on oxygen and nebulizer treatments. The patient says now that after treatments in the emergency department and EMS, she is feeling somewhat better. The patient is however very anxious, tearful. The patient is going to be admitted for observation and further treatment. The patient's primary care provider is Dr. Halina Vo. The patient has no known allergies. The patient is a current smoker, one half pack a day since her youth. I gave her smoking cessation consultation. Denies alcohol or drug use. The patient has a history of tubal ligation, tonsillectomy, cardiac catheterization without stents, dilatation and curettage, cholecystectomy. The patient with chronic obstructive pulmonary disease (COPD). The patient is noncompliant on medications, as per the patient. The patient is not fully compliant with her medications now as well. The patient says that she does not have some of her medications. She does not know which medication she does not have. She just notes that she does not have them because they were not delivered. It is difficult to ascertain if these are only pulmonary or cardiac medications. The patient's other medical history includes hypertension, insulin-dependent diabetes mellitus, chronic sclerosis, anxiety, depression, coronary artery disease, status post myocardial infarction. The patient requires CPAP at night and is noncompliant. The patient with severe obstructive sleep apnea. The patient denies any significant family history. Review of older notes does not indicate that this is accurate. The patient's home medications include: - albuterol ipratropium - aspirin - statins - bisoprolol - bupropion - duloxetine - Flonase - gabapentin - hydroxyzine - - levothyroxine - Lisinopril - metformin - Naproxen - pantoprazole - prednisone - Advair - Spiriva - tizanidine - Tramadol The patient's review of systems states that she has no acute complaints other than what was noted in the history of present illness. PHYSICAL EXAMINATION: The patient was sleeping comfortably when I came in. The patient with nasal cannula, breathing without the use of accessory muscles or with tachypnea. However, on physical examination, patient with poor air movement, wheezes on inspiration and expiration. The patient sounds very tight. S1, S2. Patient with obese abdomen. Soft, nontender to palpation. Patient able to sit up on her own strength. Good range of motion in all four extremities. Head is normocephalic, atraumatic. Patient is alert and oriented times three. Patient is anxious and weepy in affect and mood. Cranial nerves II-XII grossly intact. Patient with grossly good hearing and eyesight. Patient's vital signs are at this time: Pulse 106, blood pressure 220/98, pulse oximetry is 97. LABORATORY EXAMINATION: Shows WBC 13.7, hemoglobin and hematocrit without normal limits. Platelet count normal. Chemistry: Sodium 142, potassium 3.9, chloride 104, carbon dioxide 32, BUN and creatinine is 22/0.49. Lactic acid 1.3. Blood gas shows initial pH of 7.293, followup from 7.362. PCO2 is 55.7, O2 saturation 95.0. IMAGING: CT angio with no evidence of pulmonary embolism, unchanged pulmonary nodules, unchanged bilateral basilar atelectasis, and air space disease in lower lobes. Chest x-ray without any obvious signs of acute infiltrate. ASSESSMENT AND PLAN: The patient is a 61-year-old female who comes in with chief complaint of shortness of breath. Admitted for observation for acute respiratory failure with hypercarbia. Continue O22 supplementation, oral steroids with DuoNeb. For the patient's diabetes, hold home medications, insulin sliding scale with coverage. For coronary artery disease, continue home medications. For hypothyroidism, continue home medications. For hypertension, continue home medications. For chronic pain, continue home medications. The patient already significantly improved from before, however, still tight. Therefore, I believe the patient needs to be here for continued observation. I do not expect a greater than two-midnight stay. Deep vein thrombosis (DVT) prophylaxis is not indicated. The patient is ambulatory and not expected to stay for a long time. Gastrointestinal prophylaxis. The patient is getting oral steroids. We will start the patient on proton pump inhibitor, which the patient takes as a home medication for gastroesophageal reflux disease (GERD) anyway.
[2017-04-12] MEDS: buPROPion 75 MG TAB PO SCH (12:30)
--- NOTE | 2017-04-12 12:35 | REP ---
CHEST, TWO VIEWS: Two views of the chest are performed and compared to a prior study of 11/11/2016. There is no definite acute change when compared to the prior study with mild bibasilar fibroatelectatic change. No new infiltrates are seen. Heart is normal in size and the mediastinal silhouette is unremarkable and unchanged. There are mild degenerative changes of the spine. IMPRESSION: Mild stable chronic findings without evidence of acute pulmonary disease. Signed by Brigido Barcenas MD 04/12/2017 05:36 P
[2017-04-12 14:00] VITALS: BP 124/72
[2017-04-12] MEDS: ATORVASTATIN 20 MG TAB PO SCH (21:37)
--- NOTE | 2017-04-12 21:40 | ECGEPIP ---
Stationary ECG Study [facility] - ED Test Date: 2017-04-12 Pat Name: MIGUEL NAQVI Department: Room: [place] [address] Gender: F [employer]ting [employer] Operator: rn : 1955 Requested By: MAYELA Culp Order Number: [id number] Reading MD: Vidya Villavicencio Measurements Intervals [place] Rate: 102 P: 74 CO: 150 QRS: 58 QRSD: 86 T: 83 QT: 337 QTc: 439 Interpretive Statements SINUS TACHYCARDIA POSSIBLE ANTERIOR MYOCARDIAL INFARCTION, OF INDETERMINATE AGE NSTTW ABNORMALITY INCREASED RATE 03/08/17 Electronically Signed On 04-12-2017 21:39:56 EST by Vidya Villavicencio
[2017-04-12 22:00] VITALS: BP 131/67
[2017-04-13] MEDS: hydrOXYzine 25 MG TAB PO PRN ×2 (01:05→16:34)
[2017-04-13] MEDS: IPRATROPIUM 0.5MG/ALBUTEROL 2.5MG INH SOL UD 3ML (DUONEB)(J7620) NEB SCH ×6 (04:00→23:46)
[2017-04-13] MEDS ORDERED: VANCOMYCIN HCL 1,000 MG, VIAL MATE ADAPTER 1 EACH in D5W 250 ML IV ONE (05:15)
--- NOTE | 2017-04-13 05:25 | IPNPDOC ---
Text Note Date of Service The patient was seen on 04/12/17. NOTE Patients Blood Cx returned, Gram + cocci in clusters, CXR, LA, chandra Cx sent. Began Vanco Dosing for empiric Tx. Patient condition improved since yesterday though still Symptomatic. Consider ID consult in the AM. VS,Fishbone, I+O VS, Fishbone, I+O Vital Signs Date Time Temp Pulse Resp B/P (MAP) Pulse Ox O2 Delivery O2 Flow Rate FiO2 04/12/17 22:00 97.3 84 19 131/67 (88) 97 Nasal Cannula 2.0 BOGDAN VANCE MD Apr 13, 2017 05:24
[2017-04-13 05:42] LABS: MEAN CORPUSCULAR HEMOGLOBIN 30.1 pg (27.0-33.0); MEAN CORPUSCULAR HGB CONC 32.5 g/dl (32.0-36.5); MEAN CORPUSCULAR VOLUME 92.7 fl (80.0-96.0); PLATELET COUNT, AUTOMATED 313 10^3/uL (150-450); RED CELL DISTRIBUTION WIDTH 14.8 % (11.5-14.5); WHITE BLOOD COUNT 10.3 10^3/uL (4.0-10.0)
[2017-04-13 06:00] VITALS: BP 146/74
--- NOTE | 2017-04-13 06:10 | REPUSA ---
CLINICAL HISTORY: None. COMMENTS: Single view of the chest reveals no evidence of active pleural or pulmonary parenchymal abnormality. The heart, mediastinum and pulmonary vessels appear normal. IMPRESSION: NORMAL CHEST. Thank you for your kind referral of this patient.
[2017-04-13 06:11] LABS: ANION GAP 4 MEQ/L (8-16); BLOOD UREA NITROGEN 10 MG/DL (7-18); CALCIUM LEVEL 8.6 MG/DL (8.5-10.1); CARBON DIOXIDE LEVEL 34 MEQ/L (21-32); CHLORIDE LEVEL 103 MEQ/L (98-107); CREATININE FOR GFR 0.42 MG/DL (0.55-1.02); GLOMERULAR FILTRATION RATE > 60.0 (>51); GLUCOSE, FASTING 124 MG/DL (70-105); POTASSIUM SERUM 3.8 MEQ/L (3.5-5.1); SODIUM LEVEL 141 MEQ/L (136-145)
[2017-04-13] MEDS: LEVOTHYROXINE 50MCG TABLET (0.05MG) PO SCH (06:22)
[2017-04-13] MEDS: HumaLOG INSULIN (NovoLOG) PER UNIT SC SCH ×5 (08:24→21:00)
[2017-04-13] MEDS: VANCOMYCIN HCL 1,000 MG, VIAL MATE ADAPTER 1 EACH in D5W 250 ML IV SCH ×2 (08:35→16:34)
[2017-04-13] MEDS: PANTOPRAZOLE 40MG TAB (PROTONIX) PO SCH (08:36)
[2017-04-13] MEDS: predniSONE 20 MG TAB PO SCH (08:36)
[2017-04-13] MEDS: DULoxetine 30 MG CAP (CYMBALTA) PO SCH ×2 (08:36→21:08)
[2017-04-13] MEDS: buPROPion 75 MG TAB PO SCH (08:36)
[2017-04-13] MEDS: ASPIRIN 81 MG ENTERIC TAB PO SCH (08:36)
--- NOTE | 2017-04-13 08:36 | PHACANCOPD ---
PHARMACY VANCOMYCIN DOSING Pt Demographics Demographics Patient Age:61 , Weight:86.360 , Gender: female Adjusted Body Weight Date: 04/13/17, Adjusted Body Weight: Kg Events Past 24 Hours Events Past 24 Hours: YES: Fever, Elevation in WBC, NO: Dialysis, Diuretic Therapy, Change in CrCl, Pending Diagnostics, Pending Procedures, Other Vancomycin Vancomycin Target Ranges: 15-20 mcg/ml Vancomycin Load Y/N: Yes Load Dose Date Time Vancomycin Load Dose: 2G (1G@0622, 1G@0900) Date: 04/13/17 Time: Vancomycin Dose Date: 04/13/17. Current Vancomycin Dose: [1G Q8H] Intermittent Dosing?: No Labs Labs Vital Signs Label Value Date Time Patient Temperature 97.3 degrees F 04/12/17 2200 Temperature Source Temporal 04/12/17 2200 Patient Temperature 98.6 degrees F 04/13/17 0600 Temperature Source Temporal 04/13/17 0600 Item Value Date Time White Blood Count 13.7 10^3/uL H 04/12/17 0322 White Blood Count 10.3 10^3/uL H 04/13/17 0528 Creatinine 0.49 MG/DL L 04/12/17 0320 Creatinine 0.42 MG/DL L 04/13/17 0527 Micro Microbiology 04/13/17 Blood Culture, Received Pending 04/13/17 Blood Culture, Received Pending 04/12/17 Blood Culture - Preliminary, Resulted 04/12/17 Blood Culture - Preliminary, Resulted 04/12/17 Influenza Virus Type A Antigen - Final, Complete 04/12/17 Influenza Virus Type B Antigen - Final, Complete Creatinine Clearance Date:04/13/17. Creatinine Clearance: . Assessment and Plan Maintaining Current Dose?: Yes Reason for dose change: No Dose Change Pharmacist Note Pharmacist Note Date: 04/13/17. Pharmacist note: Pt. called 911 due to sudden onset of SOB. She has a past medical hx of COPD, 1/2 pack per day smoker, and sleep apnea. Pt is non-compliant with all meds and cpap machine used for sleep apnea. Pt. has no hx of MRSA or Vanco usage at our facility. She received 1G IV Vanco @622 in the ED. I have continued her LD with a second 1G at 0900 followed by 1G Q8H. I have scheduled a trough tomorrow at 0800 before 4th dose. We will continue to monitor and adjust dose as needed. MATTHEW PATEL PHARMACY Apr 13, 2017 08:36
[2017-04-13] MEDS: BISOPROLOL FUM 2.5 MG PER 1/2TAB PO SCH (08:37)
[2017-04-13] MEDS: LISINOPRIL *2.5 MG* TAB PO SCH (08:37)
[2017-04-13] MEDS: GABAPENTIN 400 MG CAP PO SCH ×3 (08:37→21:08)
[2017-04-13] MEDS: NICOTINE 14 MG/24 HR TRANSDERMAL TD SCH (08:37)
[2017-04-13] MEDS: lamoTRIgine 100MG TAB PO SCH ×2 (08:37→21:08)
--- NOTE | 2017-04-13 13:37 | IPNPDOC ---
Text Note Date of Service The patient was seen on 04/13/17. NOTE Subjective: Patient feels well today. Has a minimal productive cough. No chest pain or palpitations. Objective: Vitals: (see below) General: No acute distress, laying comfortably in bed. HEENT: Moist mucous membranes. Neck: No JVD or lymphadenopathy Cardiac: RRR, No murmurs Pulm: Rhonchi b/l. No wheezing Abd: NT/ND + BS Ext: No edema or cyanosis Labs (see below) Images: CTA chest 04/12/17 IMPRESSION: No evidence for pulmonary embolism. Unchanged left lower lobe pulmonary nodules. Unchanged bilateral basilar atelectatic airspace disease in the lower lobes. Assessment/Plan 1. Bacteremia with gram-positive cocci, with final cultures pending. On vancomycin. Repeat blood culture sent. Echocardiogram pending. 2. Acute COPD exacerbation- continue steroids, nebs. Counseled on tobacco cessation. On nicotine patch. 3. History of CAD continue home meds 4. Hypertension continue home meds 5. Diabetes mellitus hold by mouth meds. On sliding scale insulin. 6. Hypothyroidism continue Synthroid 7. Chronic pain on home meds. DVT prophy: Lovenox VS,Fishbone, I+O VS, Fishbone, I+O Laboratory Tests 04/13/17 05:27 Calcium Level 8.6 04/13/17 05:28 Red Blood Count 4.49, Mean Corpuscular Volume 92.7, Mean Corpuscular Hemoglobin 30.1, Mean Corpuscular Hemoglobin Concent 32.5, Red Cell Distribution Width 14.8 H Vital Signs Date Time Temp Pulse Resp B/P (MAP) Pulse Ox O2 Delivery O2 Flow Rate FiO2 04/13/17 08:37 146/74 04/13/17 08:37 63 04/13/17 08:00 Nasal Cannula 2.0 04/13/17 06:00 98.6 18 90 I&O- Last 24 Hours up to 6 AM 04/14/17 06:00 Intake Total 720 ml Output Total 900 ml Balance -180 ml GEE PETERS MD Apr 13, 2017 13:37
[2017-04-13 14:00] VITALS: BP 112/67
[2017-04-13] MEDS ORDERED: ENOXAPARIN 40 MG/0.4 ML SYRINGE (J1650) SC ONE (14:00)
[2017-04-13] MEDS: ATORVASTATIN 20 MG TAB PO SCH (21:08)
--- NOTE | 2017-04-13 21:36 | ECHO ---
DATE OF PROCEDURE: 04/13/2017 DATE OF : 1955 AGE: 61 GENDER: Female HEIGHT: 65 inches WEIGHT: 189 pounds BODY SURFACE AREA: 1.93 meters squared INPATIENT: [address] [place] [address], room 4231 REFERRING PHYSICIAN: Dr. Soy Biswas INDICATION: Shortness of breath. Abnormal EKG. MEASUREMENTS 2D measurements: RV: 3.7 cm LV: 4.5 cm Septum: 0.9 cm Posterior wall: 0.9 cm Aortic root: 3.1 cm LA: 3.9 cm LVEF: 65% Doppler measurements: AV: 1.3 meters per second LVOT: 0.99 meters per second LVOT diameter: 2.3 cm MV-E: 69, A: 72, E/A ratio: 1 Early mitral deceleration time: 173 milliseconds E prime: 6.4, A prime: 85, E/E prime ratio: 10.7 PV: 1.0 meters per second Pulmonary artery acceleration time: 123 milliseconds RVS P: 26 mmHg IVC: 2.0 cm COMMENTS: Normal sinus rhythm without intraventricular conduction disturbance. Technically challenging study in light of the patient's chest configuration but diagnostically useful information was still obtained. Left atrial size upper limits of normal. Other cardiac chamber sizes were normal. Normal LV wall thickness. On real-time imaging from the parasternal and apical projections, wall motion was symmetrical and normal. Slightly thickened mitral annulus but normal leaflet thickness and excursion with no posterior systolic buckling. Normal appearing aortic valve with three equal size cusps with adequate cusp separation. Normal aortic root size. No apparent intracardiac mass or pericardial effusion. Color flow Doppler study taken from the parasternal and apical projection showed no aortic, trace mitral and very mild tricuspid insufficiency. Guided continuous wave Doppler of her aortic valve showed a normal peak systolic velocity against LV outflow tract obstruction. Pulsed and continuous wave Doppler of her LV inflow tract taken from the apical four-chamber projection showed normal diastolic filling velocities against mitral stenosis. The filling pattern was also normal with estimated mean left atrial pressure within normal limits. Pulsed and continuous wave Doppler of her pulmonary trunk showed a normal peak systolic velocity against RV outflow tract obstruction. Her pulmonary artery acceleration time was normal against an elevated pulmonary vascular resistance. Guided continuous wave Doppler of her tricuspid valve allowed our estimation of her right ventricular systolic pressure (within normal limits). Her IVC size was normal with normal respiratory collapse against right heart failure. CONCLUSIONS: Normal left ventricular size, wall thickness and wall motion. Left atrial size upper limits of normal with currently normal Doppler assessment of left ventricular (LV) diastolic function and estimated mean left atrial pressure. Normal right heart chamber sizes and motion with currently normal estimated pulmonary arterial pressure.
[2017-04-13 22:00] VITALS: BP 142/66
[2017-04-14] MEDS: VANCOMYCIN HCL 1,000 MG, VIAL MATE ADAPTER 1 EACH in D5W 250 ML IV SCH ×3 (02:12→17:31)
[2017-04-14] MEDS: IPRATROPIUM 0.5MG/ALBUTEROL 2.5MG INH SOL UD 3ML (DUONEB)(J7620) NEB SCH ×5 (03:43→21:20)
[2017-04-14] MEDS: LEVOTHYROXINE 50MCG TABLET (0.05MG) PO SCH (05:37)
[2017-04-14 06:00] VITALS: BP 136/74
[2017-04-14 06:05] LABS: MEAN CORPUSCULAR HEMOGLOBIN 30.3 pg (27.0-33.0); MEAN CORPUSCULAR HGB CONC 31.9 g/dl (32.0-36.5); MEAN CORPUSCULAR VOLUME 95.2 fl (80.0-96.0); PLATELET COUNT, AUTOMATED 342 10^3/uL (150-450); RED CELL DISTRIBUTION WIDTH 15.1 % (11.5-14.5); WHITE BLOOD COUNT 10.5 10^3/uL (4.0-10.0)
[2017-04-14 06:27] LABS: ANION GAP 3 MEQ/L (8-16); BLOOD UREA NITROGEN 10 MG/DL (7-18); CALCIUM LEVEL 8.6 MG/DL (8.5-10.1); CARBON DIOXIDE LEVEL 36 MEQ/L (21-32); CHLORIDE LEVEL 102 MEQ/L (98-107); CREATININE FOR GFR 0.51 MG/DL (0.55-1.02); GLOMERULAR FILTRATION RATE > 60.0 (>51); GLUCOSE, FASTING 116 MG/DL (70-105); POTASSIUM SERUM 4.1 MEQ/L (3.5-5.1); SODIUM LEVEL 141 MEQ/L (136-145)
[2017-04-14] MEDS ORDERED: INFLUENZA QUADRIVALENT PF VACCINE 0.5ML SYRINGE (90686) IM ONE (09:00)
[2017-04-14] MEDS: traMADol 50 MG TAB PO PRN (10:11)
[2017-04-14] MEDS: ANALGESIC BALM CRM 120 GM TOP PRN (10:12)
[2017-04-14] MEDS: HumaLOG INSULIN (NovoLOG) PER UNIT SC SCH ×4 (10:15→21:00)
[2017-04-14] MEDS: NICOTINE 14 MG/24 HR TRANSDERMAL TD SCH (11:10)
[2017-04-14] MEDS: ASPIRIN 81 MG ENTERIC TAB PO SCH (11:10)
[2017-04-14] MEDS: DULoxetine 30 MG CAP (CYMBALTA) PO SCH ×2 (11:11→21:03)
[2017-04-14] MEDS: LISINOPRIL *2.5 MG* TAB PO SCH (11:12)
[2017-04-14] MEDS: predniSONE 20 MG TAB PO SCH (11:12)
[2017-04-14] MEDS: BISOPROLOL FUM 2.5 MG PER 1/2TAB PO SCH (11:13)
[2017-04-14] MEDS: PANTOPRAZOLE 40MG TAB (PROTONIX) PO SCH (11:13)
[2017-04-14] MEDS: buPROPion 75 MG TAB PO SCH (11:13)
[2017-04-14] MEDS: lamoTRIgine 100MG TAB PO SCH ×2 (11:14→21:03)
[2017-04-14] MEDS: GABAPENTIN 400 MG CAP PO SCH ×3 (11:14→21:03)
[2017-04-14] MEDS: ENOXAPARIN 40 MG/0.4 ML SYRINGE (J1650) SC SCH (11:17)
[2017-04-14 12:09] VITALS: BP 138/76
--- NOTE | 2017-04-14 14:04 | IPN ---
DATE: 04/14/2017 Ms. Zavala is feeling okay this morning. She is on 2 liters of oxygen, which is the amount that she uses at home. She still feels more short of breath than normal. No chest pain. She is producing a good amount of yellowish sputum that had previously been brown. Temperature 97.6, pulse 77, respiratory rate 20, blood pressure 136/74, 97% on 2 liters. Intakes and outputs notable for a negative fluid balance of -1190. She is awake, appropriately interactive, pleasantly conversant. Good historian. Mucous membranes moist. Neck supple, thick. Breathing is symmetrical, grossly diminished. I:E ratio is 1:4. No wheeze, rales or rhonchi. Heart is distant sounding. Normal S1, S2. Abdomen soft, doughy, nontender. Blood cultures from 04/12/2017 are still not speciated. Assessment is as follows: This is a 61-year-old with bacteremia from unknown etiology. Plan is as follows: 1. Infectious disease. Patient is on vancomycin for bacteremia 2of 2. Repeat blood cultures are pending. 2. Patient has acute chronic obstructive pulmonary disease (COPD) exacerbation on steroids and nebulizers. Offer an Acapella device for mal clearance secretions. Tobacco cessation counseling has been discussed during the stay. 3. Patient has history of coronary artery disease. 4. Patient has hypertension. 5. Patient has diabetes on sliding scale insulin. Reasonably well controlled to the current setting. 6. Patient has hypothyroidism. 7. Deep venous thrombosis (DVT) prophylaxis. Lovenox
[2017-04-14] MEDS: hydrOXYzine 25 MG TAB PO PRN (17:41)
[2017-04-14] MEDS: ATORVASTATIN 20 MG TAB PO SCH (21:03)
[2017-04-14 22:00] VITALS: BP 132/63
[2017-04-15] MEDS: VANCOMYCIN HCL 1,000 MG, VIAL MATE ADAPTER 1 EACH in D5W 250 ML IV SCH ×2 (00:29→08:38)
[2017-04-15] MEDS: IPRATROPIUM 0.5MG/ALBUTEROL 2.5MG INH SOL UD 3ML (DUONEB)(J7620) NEB SCH ×7 (03:13→23:41)
[2017-04-15] MEDS: LEVOTHYROXINE 50MCG TABLET (0.05MG) PO SCH (05:07)
[2017-04-15 06:00] VITALS: BP 145/74
[2017-04-15 06:22] LABS: MEAN CORPUSCULAR HGB CONC 32.4 g/dl (32.0-36.5); MEAN CORPUSCULAR VOLUME 92.6 fl (80.0-96.0); PLATELET COUNT, AUTOMATED 357 10^3/uL (150-450); RED CELL DISTRIBUTION WIDTH 14.6 % (11.5-14.5); WHITE BLOOD COUNT 8.9 10^3/uL (4.0-10.0)
[2017-04-15 06:29] LABS: ANION GAP 0 MEQ/L (8-16); BLOOD UREA NITROGEN 10 MG/DL (7-18); CALCIUM LEVEL 8.8 MG/DL (8.5-10.1); CARBON DIOXIDE LEVEL 41 MEQ/L (21-32); CHLORIDE LEVEL 100 MEQ/L (98-107); CREATININE FOR GFR 0.43 MG/DL (0.55-1.02); GLOMERULAR FILTRATION RATE > 60.0 (>51); GLUCOSE, FASTING 104 MG/DL (70-105); POTASSIUM SERUM 4.3 MEQ/L (3.5-5.1); SODIUM LEVEL 141 MEQ/L (136-145)
[2017-04-15] MEDS: HumaLOG INSULIN (NovoLOG) PER UNIT SC SCH ×4 (07:30→20:59)
[2017-04-15] MEDS: predniSONE 20 MG TAB PO SCH (08:39)
[2017-04-15] MEDS: buPROPion 75 MG TAB PO SCH (08:39)
[2017-04-15] MEDS: DULoxetine 30 MG CAP (CYMBALTA) PO SCH ×2 (08:39→21:13)
[2017-04-15] MEDS: LISINOPRIL *2.5 MG* TAB PO SCH (08:39)
[2017-04-15] MEDS: PANTOPRAZOLE 40MG TAB (PROTONIX) PO SCH (08:39)
[2017-04-15] MEDS: ENOXAPARIN 40 MG/0.4 ML SYRINGE (J1650) SC SCH (08:39)
[2017-04-15] MEDS: BISOPROLOL FUM 2.5 MG PER 1/2TAB PO SCH (08:40)
[2017-04-15] MEDS: ASPIRIN 81 MG ENTERIC TAB PO SCH (08:40)
[2017-04-15] MEDS: GABAPENTIN 400 MG CAP PO SCH ×3 (08:40→21:13)
[2017-04-15] MEDS: lamoTRIgine 100MG TAB PO SCH ×2 (08:40→21:13)
[2017-04-15] MEDS: NICOTINE 14 MG/24 HR TRANSDERMAL TD SCH (08:40)
[2017-04-15] MEDS: traMADol 50 MG TAB PO PRN (11:44)
[2017-04-15] MEDS: hydrOXYzine 25 MG TAB PO PRN ×2 (12:22→21:54)
[2017-04-15] MEDS: CEFDINIR 300 MG CAP (OMNICEF) PO SCH ×2 (13:42→21:13)
[2017-04-15 14:00] VITALS: BP 132/77
--- NOTE | 2017-04-15 15:55 | IPN ---
DATE: 04/15/2017 Ms Zavala is feeling a little better today. She is producing sputum. No chest pain. Still short of breath. Not back to her baseline. Temperature 97.1, pulse 73, respiratory rate 20, blood pressure 125/74, 98% on 2 liters. Intake and output (I and Os) notable for negative fluid status, -1850. One bowel movement yesterday. Is awake, appropriately interactive. Pleasantly conversant. Mucous membranes moist. Neck supple. Breathing is symmetrical, with improved aeration from yesterday. I to E ratio is still 1:4 and prolonged. No accessory muscle use. Is speaking in complete sentences. Heart: Normal S1, S2. Radial pulses are 2+. Capillary refill is less than 2 seconds. Abdomen soft, doughy, nontender. White cell count 8.9, hemoglobin 13.4, platelets 357. BUN 10, creatinine 0.4. Sputum has grown Haemophilus heavy growth, staphylococcus aureus and yeast-like organisms less growth. ASSESSMENT: This is a 61-year-old with bacteremia from unknown etiology. PLAN: 1. Infectious disease. The patient has been on vancomycin for bacteremia. Appears to be staphylococcus hominis. Has grown Haemophilus in her sputum. Will switch her antibiotics to Cefdinir and monitor her clinically. Possible discharge as early as tomorrow. 2. Patient has acute chronic obstructive pulmonary disease (COPD) exacerbation. On steroids and nebs. Will wean steroids at the time of discharge. Acapella device has been useful for malclearance of secretions. We have discussed tobacco cessation. 3. The patient has history of coronary artery disease. 4. The patient has hypertension. 5. The patient has diabetes, on sliding scale. Is reasonably well controlled in the current setting. 6. The patient has hypothyroidism. 7. The patient has appropriate deep venous thrombosis (DVT) prophylaxis.
[2017-04-15] MEDS: ATORVASTATIN 20 MG TAB PO SCH (21:13)
[2017-04-15 22:00] VITALS: BP 108/53
[2017-04-16] MEDS: IPRATROPIUM 0.5MG/ALBUTEROL 2.5MG INH SOL UD 3ML (DUONEB)(J7620) NEB SCH ×2 (03:49→07:40)
[2017-04-16 06:00] VITALS: BP 139/83
[2017-04-16] MEDS: LEVOTHYROXINE 50MCG TABLET (0.05MG) PO SCH (06:09)
[2017-04-16] MEDS: ANALGESIC BALM CRM 120 GM TOP PRN ×2 (06:42→08:43)
[2017-04-16 07:03] LABS: MEAN CORPUSCULAR HEMOGLOBIN 29.6 pg (27.0-33.0); MEAN CORPUSCULAR HGB CONC 32.1 g/dl (32.0-36.5); PLATELET COUNT, AUTOMATED 356 10^3/uL (150-450); RED CELL DISTRIBUTION WIDTH 14.5 % (11.5-14.5)
[2017-04-16 07:12] LABS: ANION GAP 4 MEQ/L (8-16); BLOOD UREA NITROGEN 11 MG/DL (7-18); CALCIUM LEVEL 8.6 MG/DL (8.5-10.1); CARBON DIOXIDE LEVEL 36 MEQ/L (21-32); CHLORIDE LEVEL 99 MEQ/L (98-107); CREATININE FOR GFR 0.49 MG/DL (0.55-1.02); GLOMERULAR FILTRATION RATE > 60.0 (>51); GLUCOSE, FASTING 122 MG/DL (70-105); POTASSIUM SERUM 4.2 MEQ/L (3.5-5.1); SODIUM LEVEL 139 MEQ/L (136-145)
[2017-04-16] MEDS ORDERED: SULF1TAB72 PO (08:37)
[2017-04-16] MEDS ORDERED: PRED10TA2 PO (08:37)
[2017-04-16] MEDS ORDERED: NICODIS TD (08:37)
[2017-04-16] MEDS: HumaLOG INSULIN (NovoLOG) PER UNIT SC SCH (08:44)
[2017-04-16] MEDS: ENOXAPARIN 40 MG/0.4 ML SYRINGE (J1650) SC SCH ×2 (08:44→08:50)
[2017-04-16] MEDS: ASPIRIN 81 MG ENTERIC TAB PO SCH (08:44)
[2017-04-16] MEDS: lamoTRIgine 100MG TAB PO SCH (08:44)
[2017-04-16] MEDS ORDERED: NICOTINE 21MG/24HR 1 EA TRANSDERMAL TD ONE (08:45)
[2017-04-16] MEDS: DULoxetine 30 MG CAP (CYMBALTA) PO SCH (08:45)
[2017-04-16] MEDS ORDERED: BACTRIM 160MG/800MG DS TAB PO ONE (08:45)
[2017-04-16] MEDS: predniSONE 20 MG TAB PO SCH (08:47)
[2017-04-16] MEDS: buPROPion 75 MG TAB PO SCH (08:47)
[2017-04-16] MEDS: GABAPENTIN 400 MG CAP PO SCH (08:47)
[2017-04-16] MEDS: PANTOPRAZOLE 40MG TAB (PROTONIX) PO SCH (08:47)
[2017-04-16 08:48] VITALS: BP 152/76
[2017-04-16] MEDS: BISOPROLOL FUM 2.5 MG PER 1/2TAB PO SCH (08:48)
[2017-04-16] MEDS: LISINOPRIL *2.5 MG* TAB PO SCH (08:48)
[2017-04-16] MEDS: traMADol 50 MG TAB PO PRN (09:02)
--- NOTE | 2017-04-17 17:08 | DSES ---
DATE OF ADMISSION: 04/13/2017 DATE OF DISCHARGE: 04/16/2017 SPECIALISTS INVOLVED IN CARE: None. COMPLICATIONS DURING STAY: None. PROCEDURES PERFORMED DURING STAY: None. DISCHARGE DIAGNOSES: 1. Bronchitis 2. Suspected bacteremia. 3. Chronic obstructive pulmonary disease exacerbation. 4. Coronary artery disease. 5. Hypertension. 6. Diabetes. 7. Hypothyroidism. 8. Acute respiratory failure with hypercapnia. 9. Chronic hypoxic respiratory failure. 10. Methicillin-resistant Staphylococcus aureus bronchitis. 11. Haemophilus influenza bronchitis. 12. Left lower lobe pulmonary nodules. SUMMARY OF HOSPITALIZATION: This is a 61-year-old who presented with sudden onset of shortness of breath. She was brought to the hospital for evaluation in the emergency department. Did not improve and was admitted to the hospitalist service. Was producing copious brown sputum at the time of presentation, which improved during the course of her stay. Sputum did grow Haemophilus influenza and methicillin-resistant Staphylococcus aureus (MRSA). She did hae two positive blood cultures that looked as if they were drawn at the exact same time, which grew Staphylococcus hominis. Repeat cultures were negative at 72 hours. I believe that those cultures were contaminated based on the timing. An echocardiogram was done during the stay, which showed normal left ventricular function and no evidence of valvular disease. On day of discharge she is feeling well. She is breathing easily on her home 2 liters oxygen supplement. Temperature is 97.5, pulse 76, respiratory rate 18, blood pressure 139/83, 98% on 2 liters. Is awake, appropriately interactive, pleasantly conversant. Breathing is symmetrical. Some upper airway sounds are noted. No wheezes, rales, or rhonchi. Heart is distant sounding. Normal S1, S2. Abdomen soft, doughy, nontender. Positive fluid status of 930. Body mass index 31.7. White cell count 9, hemoglobin 13.3, and platelets of 356. BUN 14, creatinine 0.5. DISCHARGE INSTRUCTIONS: Followup with Stefani Vo within one week. Diet and activity as tolerated. She is given a nicotine patch 21 mg topically transdermal daily, prednisone tapering dose 40 mg daily for 2 days, 20 mg daily for 2 days, 10 mg daily for 2 days, and then return to her home dose of 5 mg daily, Bactrim double strength one tablet by mouth twice daily for 5 more days, albuterol as needed, DuoNeb every 3 hours as needed, aspirin 81 mg by mouth daily, Lipitor 80 mg by mouth daily at bedtime, bisoprolol 2.5 mg by mouth daily, Wellbutrin 75 mg by mouth daily, duloxetine 60 mg by mouth daily, 30 mg at bedtime, Flonase, gabapentin 800 mg by mouth three times daily, hydroxyzine 75 mg by mouth every 6 hours as needed for anxiety, Lamictal 100 mg by mouth twice daily, Synthroid 50 mcg by mouth daily, lisinopril 2.5 mg by mouth daily, Everton-Shetty gel as needed for back and hip pain, metformin 1000 mg by mouth twice daily, Naprosyn 500 mg by mouth twice daily, Protonix 4 mg by mouth daily. Continue home dose of prednisone 5 mg by mouth daily, Advair one puff inhaled twice daily, Spiriva capsule daily, tizanidine 2 mg by mouth three times a day for muscle spasms, and tramadol 100 mg by mouth three times a day as needed for pain. We have discussed smoking cessation counseling at length.
== END 2017-04-16 10:10 | disposition home or self-care (01) | DRG 190 ==
LOC: EDBD 02:57 → M ED 02:57 → M ED INP 02:58 → M MSPAV 07:55 → EEVIPCON 04-13 14:29 → OBSVTOIN 04-13 14:29
PROVIDERS: ADMIT Internal Medicine; ATTEND Internal Medicine
DX: J44.0 Chronic obstructive pulmonary disease with (acute) lower respiratory infection (principal); J96.02 Acute respiratory failure with hypercapnia; R78.81 Bacteremia; J96.11 Chronic respiratory failure with hypoxia; J44.1 Chronic obstructive pulmonary disease with (acute) exacerbation; F17.210 Nicotine dependence, cigarettes, uncomplicated; I10 Essential (primary) hypertension; J20.1 Acute bronchitis due to Hemophilus influenzae; E11.9 Type 2 diabetes mellitus without complications; F41.9 Anxiety disorder, unspecified; R91.8 Other nonspecific abnormal finding of lung field; F32.9 Major depressive disorder, single episode, unspecified; I25.10 Atherosclerotic heart disease of native coronary artery without angina pectoris; I25.2 Old myocardial infarction; G47.33 Obstructive sleep apnea (adult) (pediatric); E03.9 Hypothyroidism, unspecified; G89.29 Other chronic pain; Z91.14 Patient's other noncompliance with medication regimen; Z79.4 Long term (current) use of insulin; Z79.891 Long term (current) use of opiate analgesic; Z79.82 Long term (current) use of aspirin; Z79.52 Long term (current) use of systemic steroids; Z79.899 Other long term (current) drug therapy; Z99.81 Dependence on supplemental oxygen

== ENCOUNTER 2017-04-26 00:15 | Inpatient (IN) | payer MEDICARE, MEDICAID ==
[~2017-04-26] VITALS: Ht 165.1 cm; Wt 88.8 kg
[~2017-04-26 00:15] MED LIST changes: +NICODIS TD; +SULF1TAB72 PO
[2017-04-26] MEDS ORDERED: MAG SULF 1GM/100ML (MAG RUN) 1 GM in APPROPRIATE DILUENT 1 EA IV ONE ×3 (00:30→02:30)
[2017-04-26] MEDS ORDERED: dexameTHASONE 20 MG/5 ML VIAL (J1100) IV ONE (00:30)
[2017-04-26 00:44] LABS: ABG BASE EXCESS -0.4 (-2.0-2.0); ABG HCO3 28.7 MEQ/L (22.0-26.0); ABG PARTIAL PRESSURE O2 184.5 mmHg (75.0-100.0); ABG STANDARD HCO3 24.2 MEQ/L (22.0-26.0); ABG TOTAL CO2 30.8 MEQ/L (22.0-29.0)
[2017-04-26 00:45] LABS: ABG PARTIAL PRESSURE CO2 67.8 mmHg (35.0-45.0); ABG pH (ARTERIAL) 7.245 UNITS (7.350-7.450)
[2017-04-26 00:59] LABS: BASO # 0.1 10^3/uL (0.0-0.2); BASO % 0.6 % (0.0-1.0); EOS # 0.1 10^3/uL (0.0-0.50); EOS % 0.4 % (0.0-3.0); IMMATURE GRANULOCYTE % 1.4 % (0-0); LYMPH % 16.1 % (24.0-44.0); MEAN CORPUSCULAR HEMOGLOBIN 30.7 pg (27.0-33.0); MEAN CORPUSCULAR HGB CONC 32.1 g/dl (32.0-36.5); MEAN CORPUSCULAR VOLUME 95.6 fl (80.0-96.0); MONO # 1.6 10^3/uL (0.0-0.8); MONO % 6.6 % (0.0-5.0); NEUTROPHILS # 18.6 10^3/uL (1.8-7.7); NEUTROPHILS % 74.9 % (36.0-66.0); PLATELET COUNT, AUTOMATED 595 10^3/uL (150-450); RED CELL DISTRIBUTION WIDTH 15.3 % (11.5-14.5); WHITE BLOOD COUNT 24.8 10^3/uL (4.0-10.0)
[2017-04-26] MEDS ORDERED: NS 1,000 ML IV ONE (01:15)
[2017-04-26 01:20] LABS: CONTROL LINE HCG INT CTR LINE PRESENT
[2017-04-26] MEDS ORDERED: NICO21DI5 TD (01:29)
[2017-04-26 01:39] LABS: ALBUMIN 3.9 GM/DL (3.2-5.2); ALBUMIN/GLOBULIN RATIO 1.05 (1.00-1.93); ALKALINE PHOSPHATASE 147 U/L (45-117); ALT/SGPT 51 U/L (12-78); ANION GAP 8 MEQ/L (8-16); AST/SGOT 28 U/L (7-37); BILIRUBIN,DIRECT < 0.1 MG/DL (0.0-0.2); BILIRUBIN,TOTAL 0.3 MG/DL (0.2-1.0); BLOOD UREA NITROGEN 14 MG/DL (7-18); CALCIUM LEVEL 9.3 MG/DL (8.5-10.1); CARBON DIOXIDE LEVEL 34 MEQ/L (21-32); CHLORIDE LEVEL 96 MEQ/L (98-107); CREATININE FOR GFR 0.56 MG/DL (0.55-1.02); GLOMERULAR FILTRATION RATE > 60.0 (>51); GLUCOSE, FASTING 202 MG/DL (70-105); POTASSIUM SERUM 4.1 MEQ/L (3.5-5.1); SODIUM LEVEL 138 MEQ/L (136-145); TOTAL PROTEIN 7.6 GM/DL (6.4-8.2)
[2017-04-26 03:44] LABS: ABG BASE EXCESS 2.9 (-2.0-2.0); ABG HCO3 31.8 MEQ/L (22.0-26.0); ABG PARTIAL PRESSURE O2 88.2 mmHg (75.0-100.0); ABG pH (ARTERIAL) 7.278 UNITS (7.350-7.450)
[2017-04-26 03:48] LABS: ABG PARTIAL PRESSURE CO2 69.6 mmHg (35.0-45.0)
[2017-04-26 04:01] LABS: METHADONE URINE NEGATIVE (NEGATIVE)
[2017-04-26] MEDS ORDERED: DOXYCYCLINE HYCLATE 100 MG in D5W MINI-BAG PLUS 100 ML IV SCH (06:00)
[2017-04-26] MEDS ORDERED: ONDANSETRON 4MG/2ML VIAL (J2405) IV PRN (06:15)
[2017-04-26] MEDS ORDERED: ALBUTEROL SULFATE 2.5 MG/0.5 ML INH NEB SOLN INH PRN (06:15)
[2017-04-26] MEDS ORDERED: ACETAMINOPHEN TAB 650MG DOSE (2X325MG) PO PRN (06:15)
[2017-04-26] MEDS ORDERED: traMADol 50 MG TAB PO PRN (07:00)
--- NOTE | 2017-04-26 07:06 | HPEPDOC ---
General Date of Admission Apr 26, 2017 at 06:05 Primary Care Physician: A Chief Complaint The patient is a 61-year-old female admitted with a reason for visit of Acute On Chronic Respiratory Failure. Source: Patient Exam Limitations: No limitations Timing/Duration: Day(s) (past two days) Severity: Moderate Associated Symptoms: Cough, Shortness of breath History of Present Illness Ms. Zavala is a 61-year-old female past medical history coronary artery disease, history of NC 5 years ago status post cardiac cath which according to patient was normal, hypertension, diabetes type 2, obstructive sleep apnea noncompliant with CPAP, history of right adrenal nodules, chronic hypoxic hypercarbic respiratory failure, chronic hypercarbia who presents to the emergency department after a 2 day history of increasing shortness of breath with ambulation and progression of chronic nonproductive cough. The patient states that since her last hospitalization in March 2017 for COPD exacerbation, she had been doing well and was even to the point of not requiring oxygen while she was at home resting, acutely 2 days ago she noticed increasing shortness of breath. Patient denies recent illness, including fever, muscle aches or chills, decrease in appetite, changes in bowel or urinary habits, blood in urine or stool, pain with urination or defecation. She denies chest pain or feeling her heart race. She denies being around sick contacts and denies recent travel. Patient states that many of her medications have been adjusted due to her numerous hospitalizations for COPD and states that there are too many changes for her to remember. She is on 2 L home oxygen and is noncompliant with her CPAP for SUYAPA. Apparently she was seen in the emergency department and given steroids and attempted to leave AGAINST MEDICAL ADVICE, however she was too weak and short of breath and ended up "" lowering herself "" to the ground as she was attempting to leave the hospital, she was thus brought back to the ED and agreed to stay for further evaluation and therapy. She did state that she wishes to make herself a full code on this admission. Home Medications Scheduled (Flonase Allergy Relief) 50 Mcg/Act Spr, 1 SPRAY NA DAILY, (Reported) Aspirin (Aspirin EC) 81 Mg Tabec, 81 MG PO DAILY, (Reported) Atorvastatin Calcium (Lipitor) 80 Mg Tab, 80 MG PO QHS, (Reported) Bisoprolol Fumarate (Bisoprolol Fumarate) 5 Mg Tab, 2.5 MG PO DAILY, (Reported) Bupropion HCl (Bupropion HCl) 75 Mg Tab, 75 MG PO DAILY, (Reported) Duloxetine Hcl (Duloxetine HCl) 60 Mg Cap, 60 MG PO DAILY, (Reported) Duloxetine Hcl (Duloxetine HCl) 30 Mg Cap, 30 MG PO QHS, (Reported) Gabapentin (Gabapentin) 800 Mg Tab, 800 MG PO TID, (Reported) Lamotrigine (LaMICtal) 100 Mg Tab, 100 MG PO BID, (Reported) Levothyroxine Sodium (Levo-T) 50 Mcg Tab, 50 MCG PO DAILY, (Reported) Lisinopril (Lisinopril) 2.5 Mg Tab, 2.5 MG PO DAILY, (Reported) Metformin Hydrochloride (Metformin HCl) 1,000 Mg Tab, 1,000 MG PO BID, (Reported ) Naproxen Sodium (Naproxen Sodium) 500 Mg Tab, 500 MG PO BID, (Reported) Nicotine (Nicoderm Cq) 21 Mg/24 Hr Dis, 21 MG TD DAILY, (Reported) Pantoprazole Sodium (Pantoprazole Sodium) 40 Mg Tab, 40 MG PO DAILY, (Reported) Prednisone (Prednisone) 5 Mg Tab, 5 MG PO DAILY, (Reported) Salmeterol/Fluticasone (Advair Diskus 250-50 Mcg/Dose) 14 Puff/Inhaler Aerp, 1 PUFF INH BID, (Reported) Tiotropium [place] Monohydrate (Spiriva Handihaler) 18 Mcg Cap, 1 CAP INH DAILY, (Reported) Scheduled PRN Albuterol Sulfate (Ventolin Hfa) 200 Puff/8 Gm Aers, 2 PUFF INH Q4H PRN for SHORTNESS OF BREATH, (Reported) Albuterol Sulfate (Albuterol Sulfate) 2.5 Mg/3 Ml Nebu, 1 VIAL INH Q4H PRN for SHORTNESS OF BREATH, (Reported) Albuterol/Ipratropium (Ipratropium [place]/Albut 0.5-2.5 (3) mg/3Ml) 1 Smomer Sommer, 1 VIAL INH Q2H PRN for SOB/WHEEZING, (Reported) Hydroxyzine HCl (Hydroxyzine HCl) 25 Mg Tab, 75 MG PO Q6H PRN for ANXIETY, ( Reported) Menthol (Bengay Vanishing Scent) 2.5 % Gel, 1 DOSE EXT QID PRN for PAIN, ( Reported) PLACES ON BACK AND HIPS Tizanidine HCl (Tizanidine HCl) 2 Mg Tab, 2 MG PO TID PRN for MUSCLE SPASMS, ( Reported) Tramadol HCl (Tramadol HCl) 50 Mg Tab, 100 MG PO TID PRN for PAIN, (Reported) Allergies Coded Allergies: No Known Drug Allergy (Verified Allergy, Unknown, 08/30/12) Past Medical History Medical History As per HPI Surgical History Cholecystectomy Cardiac catheterization with no stent placement 5 years ago Breast biopsy History of dilatation and encouraged has Tubal ligation Tonsillectomy History of exploratory laparotomy Family History Denies history of premature coronary artery disease Social History * Smoker: current smoker (currently smokes 5 cigarettes a day) Alcohol: Denies Drugs: cocaine (the patient states that she only has smoked marijuana however her toxicology came back positive for cocaine use of which she adamantly denied using), marijuana Review of Symptoms Constitutional: Reports: Malaise, Denies: Chills, Fever, Night Sweats, Weakness, Fatigue Eyes: Denies: Pain, Vision change ENT: Denies: Head Aches Skin: Denies: Rash Pulmonary: Reports: Dyspnea, Cough Cardiovascular: Denies: Chest Pain, Palpitations, Orthopnea Gastrointestinal: Denies: Nausea, Vomiting, Abdominal Pain, Diarrhea, Constipation Genitourinary: Denies: Dysuria Hematologic: Denies: Bruising Neurological: Denies: Weakness Psych: Reports: Mood Normal, Other Psych (history of bipolar, depression, anxiety, patient states she does feeling anxious in the emergency department) Physical Examination General Exam: Positive: Alert, Cooperative, No Acute Distress Eye Exam: Positive: Conjunctiva & lids normal, EOMI ENT Exam: Positive: Atraumatic, Mucous membr. moist/pink Neck Exam: Positive: Supple Chest Exam: Positive: Wheezing (end expiratory wheezing), Diminished ( throughout), Negative: Clear to auscultation, Normal air movement, Rales, Rhonchi Heart Exam: Positive: Rate Normal, Normal S1, Normal S2, Negative: Murmurs, Rubs Abdomen Exam: Positive: Normal bowel sounds, Soft, Negative: Tenderness Extremity Exam: Positive: Clubbing (bilateral fingers), Normal pulses, Negative: Cyanosis, Edema, Tenderness, Swelling Neuro Exam: Positive: Normal Speech Psych Exam: Positive: Anxiety, Negative: Mental status NL Vital Signs Vital Signs Date Time Temp Pulse Resp B/P (MAP) Pulse Ox O2 Delivery O2 Flow Rate FiO2 04/26/17 06:15 119/56 (77) 04/26/17 06:12 96 26 92 Nasal Cannula 2.0 04/26/17 00:29 97.4 Laboratory Data Labs 24H Laboratory Tests 2 04/26/17 00:37: Blood Gas Bicarbonate Standard 24.2, Arterial Blood pH 7.245*L, Arterial Blood Partial Pressure CO2 67.8*H, Arterial Blood Partial Pressure O2 184.5H, Arterial Blood Total CO2 30.8H, Arterial Blood HCO3 28.7H, Arterial Blood Base Excess -0.4, Arterial Blood Oxygen Saturation 98.3 04/26/17 00:39: Immature Granulocyte % (Auto) 1.4H, White Blood Count 24.8H, Red Blood Count 4.98, Hemoglobin 15.3, Hematocrit 47.6H, Mean Corpuscular Volume 95.6, Mean Corpuscular Hemoglobin 30.7, Mean Corpuscular Hemoglobin Concent 32.1, Red Cell Distribution Width 15.3H, Platelet Count 595H, Neutrophils (%) (Auto) 74.9H, Lymphocytes (%) (Auto) 16.1L, Monocytes (%) (Auto) 6.6H, Eosinophils (%) (Auto) 0.4, Basophils (%) (Auto) 0.6, Neutrophils # (Auto) 18.6H, Lymphocytes # (Auto) 4.0, Monocytes # (Auto) 1.6H, Eosinophils # (Auto) 0.1, Basophils # (Auto) 0.1, Immature Granulocyte # (Auto) 0.4H, Nucleated Red Blood Cells % (auto) 0.0, Anion Gap 8, Glomerular Filtration Rate > 60.0, Calcium Level 9.3, Aspartate Amino Transf (AST/SGOT) 28, Alanine Aminotransferase (ALT/SGPT) 51, Alkaline Phosphatase 147H, Total Bilirubin 0.3, Direct Bilirubin < 0.1, Total Creatine Kinase 193H, Creatine Kinase MB 6.5H, Creatine Kinase MB Relative Index 3.36, Troponin I 0.02, Total Protein 7.6, Albumin 3.9, Albumin/Globulin Ratio 1.05, Human Chorionic Gonadotropin, Qual NEGATIVE, Salicylates Level 7.2, Acetaminophen Level < 2.0L, Ethyl Alcohol Level < 0.003 04/26/17 03:32: Urine Amphetamines Screen NEGATIVE, Urine Benzodiazepines Screen NEGATIVE, Urine Opiates Screen NEGATIVE, Urine Methadone Screen NEGATIVE, Urine Barbiturates Screen NEGATIVE, Urine Phencyclidine Screen NEGATIVE, Urine Cocaine Metabolite Screen POSITIVEH, Urine Cannabinoids Screen POSITIVEH 04/26/17 03:34: Blood Gas Bicarbonate Standard 27.0H, Arterial Blood pH 7.278L, Arterial Blood Partial Pressure CO2 69.6*H, Arterial Blood Partial Pressure O2 88.2, Arterial Blood Total CO2 34.0H, Arterial Blood HCO3 31.8H, Arterial Blood Base Excess 2.9H, Arterial Blood Oxygen Saturation 95.7 CBC/BMP Laboratory Tests 04/26/17 00:39 Red Blood Count 4.98, Mean Corpuscular Volume 95.6, Mean Corpuscular Hemoglobin 30.7, Mean Corpuscular Hemoglobin Concent 32.1, Red Cell Distribution Width 15.3 H, Neutrophils (%) (Auto) 74.9 H, Lymphocytes (%) (Auto) 16.1 L, Monocytes (%) (Auto) 6.6 H, Eosinophils (%) (Auto) 0.4, Basophils (%) (Auto) 0.6, Neutrophils # (Auto) 18.6 H, Lymphocytes # (Auto) 4.0, Monocytes # (Auto) 1.6 H , Eosinophils # (Auto) 0.1, Basophils # (Auto) 0.1 Assessment/Plan This is a 61-year-old female who presents to the emergency department with a 2 day history of worsening shortness of breath and chronic cough. 1. Acute on chronic hypoxic hypercapnic respiratory failure Patient received steroids in ED ABG in emergency department showed pH of 7.24 with CO2 67.8, patient's baseline CO2 is 60-70, she is at to her baseline Will continue patient on Solu-Medrol 60 mg every 6 hours DuoNeb therapy scheduled Oxygen therapy continued Sputum cultures ordered Chest x-ray in ED did not demonstrate area of consolidation concerning for pneumonia, official read has not been done, compared to chest x-ray on last admission March 2017 Will continue patient's home inhalers Patient was again educated on the risk of refusing BiPAP therapy, including possible respiratory failure and resulting , patient however would like to refuse BiPAP therapy on this stay as she has done in the past 2. Leukocytosis White count elevated to 24.8 Could be secondary to recent cocaine use or underlying infection Trend CRP Sputum and blood cultures pending Based on past culture results, sputum has grown out MRSA and H. influenza, according to last discharge note she was sent out on Bactrim therapy, will begin doxycycline inpatient Blood cultures last admission also grew out staph hominis Continue to monitor 3. Thrombocytosis Platelets elevated to 595 Could be reactive Continue to monitor 4. Obstructive sleep apnea Patient is noncompliant with CPAP She may need outpatient follow-up regarding this and repeat sleep study 5. Coronary artery disease and history of NC 5 years prior EKG in ED no signs concerning for active ischemia First set of troponins negative in ED Will trend troponins Continue with home aspirin 6. Diabetes Have held home metformin Sliding scale in-house 7. History of bipolar, anxiety, depression Continue lamotrigine and duloxetine 8. Hypertension Continue home medication 9. Fibromyalgia Continue gabapentin 10. DVT prophylaxis Lovenox Plan / VTE VTE Prophylaxis Ordered?: Yes GME ATTESTATION GME ATTESTATION My faculty preceptor for this patient encounter was physically present during the encounter and was fully available. All aspects of the patient interview, examination, medical decision making process, and medical care plan development were reviewed and approved by the faculty preceptor. The faculty preceptor is aware and concurs with the plan as stated in the body of this note and will attest to such by his/her cosignature. VEENA KIM DO Apr 26, 2017 07:06
[2017-04-26] MEDS ORDERED: GLUCAGON FOR INJ 1 MG VIAL (J1610) SC PRN (07:30)
[2017-04-26] MEDS ORDERED: DEXTROSE 50% 50 ML SYRINGE IV PRN (07:30)
[2017-04-26] MEDS ORDERED: GLUCOSE 4 GM CHEW TABLET PO PRN (07:30)
[2017-04-26] MEDS: IPRATROPIUM 0.5MG/ALBUTEROL 2.5MG INH SOL UD 3ML (DUONEB)(J7620) NEB SCH ×4 (08:00→20:00)
[2017-04-26 08:10] VITALS: BP 122/75
--- NOTE | 2017-04-26 08:10 | REP ---
Chest one-view HISTORY: Dyspnea Comparison: 04/13/2017 The lungs are clear. The heart is normal in size. The pulmonary vasculature is normal in appearance. Impression: No acute disease. Signed by Karel Yeboah MD 04/26/2017 08:01 A
[2017-04-26] MEDS ORDERED: NICOTINE 21MG/24HR 1 EA TRANSDERMAL TD SCH (09:00)
[2017-04-26 09:16] LABS: ABG BASE EXCESS 6.7 (-2.0-2.0); ABG HCO3 34.4 MEQ/L (22.0-26.0); ABG PARTIAL PRESSURE O2 65.4 mmHg (75.0-100.0); ABG STANDARD HCO3 30.5 MEQ/L (22.0-26.0); ABG TOTAL CO2 36.3 MEQ/L (22.0-29.0); ABG pH (ARTERIAL) 7.358 UNITS (7.350-7.450)
[2017-04-26] MEDS: ADVAIR HFA 115/21MCG INHALER INH SCH ×2 (09:18→20:50)
[2017-04-26] MEDS: TIOTROPIUM INHALER/CAPSULE (SPIRIVA) INH SCH (09:18)
[2017-04-26 09:19] LABS: ABG PARTIAL PRESSURE CO2 62.6 mmHg (35.0-45.0)
[2017-04-26] MEDS ORDERED: ISOVUE-370 76% 100ML VIAL (Q9967) As Ordered ONE (09:19)
[2017-04-26 09:23] LABS: BASO % 0.2 % (0.0-1.0); LYMPH # 0.6 10^3/uL (1.5-4.5); LYMPH % 4.2 % (24.0-44.0); MEAN CORPUSCULAR HEMOGLOBIN 30.6 pg (27.0-33.0); MEAN CORPUSCULAR HGB CONC 32.5 g/dl (32.0-36.5); MEAN CORPUSCULAR VOLUME 94.3 fl (80.0-96.0); MONO # 0.1 10^3/uL (0.0-0.8); MONO % 0.8 % (0.0-5.0); NEUTROPHILS # 12.8 10^3/uL (1.8-7.7); NEUTROPHILS % 93.8 % (36.0-66.0); RED CELL DISTRIBUTION WIDTH 15.2 % (11.5-14.5); WHITE BLOOD COUNT 13.7 10^3/uL (4.0-10.0)
[2017-04-26] MEDS: ENOXAPARIN 40 MG/0.4 ML SYRINGE (J1650) SC SCH (09:33)
[2017-04-26] MEDS: FLUTICASONE PROP 0.05% NASAL SPRAY 16 GM (FLONASE) SCH (09:33)
[2017-04-26] MEDS: buPROPion 75 MG TAB PO SCH (09:34)
[2017-04-26] MEDS: PANTOPRAZOLE 40MG TAB (PROTONIX) PO SCH (09:34)
[2017-04-26] MEDS: NICOTINE 21MG/24HR 1 EA TRANSDERMAL TD SCH (09:34)
[2017-04-26] MEDS: HumaLOG INSULIN (NovoLOG) PER UNIT SC SCH ×3 (09:34→17:36)
[2017-04-26] MEDS: DULoxetine 30 MG CAP (CYMBALTA) PO SCH (09:35)
[2017-04-26] MEDS: GABAPENTIN 400 MG CAP PO SCH ×3 (09:35→20:30)
[2017-04-26] MEDS: BISOPROLOL FUM 2.5 MG PER 1/2TAB PO SCH (09:35)
[2017-04-26] MEDS: LISINOPRIL *2.5 MG* TAB PO SCH (09:35)
[2017-04-26] MEDS: lamoTRIgine 100MG TAB PO SCH ×2 (09:36→20:30)
[2017-04-26] MEDS: ASPIRIN 81 MG ENTERIC TAB PO SCH (09:36)
[2017-04-26 09:37] LABS: ADD MANUAL DIFFER NO; DIFF SLIDE NUMBER 116; PLATELET COUNT, AUTOMATED 422 10^3/uL (150-450)
[2017-04-26] MEDS: LEVOTHYROXINE 50MCG TABLET (0.05MG) PO SCH (09:49)
[2017-04-26] MEDS ORDERED: GASTROGRAFIN SOLUTION 30ML (Q9963) PO ONE (09:50)
[2017-04-26] MEDS ORDERED: GASTROGRAFIN SOLUTION 30ML PO ONE (10:20)
[2017-04-26] MEDS: methylPREDNISolone INJ 125 MG/2 ML VIAL (J2930) IV SCH ×3 (11:52→23:22)
[2017-04-26 12:00] VITALS: BP 118/65
--- NOTE | 2017-04-26 12:38 | REP ---
CT ABDOMEN AND PELVIS WITH CONTRAST: HISTORY: Diffuse abdominal pain. CONTRAST: Isovue-370, 100 mL COMPARISON: 02/04/2017 The patient is status post cholecystectomy. The liver is enlarged. There are two adenomas in the right adrenal gland. These measures 1.8 and 1.9 cm in width. A 1 cm adenoma is present in the left adrenal gland. A 4 mm cyst is present in the left kidney. The pancreas, spleen and right kidney are normal in appearance. There is no mass, adenopathy or free fluid. Two 5 mm parenchymal nodules are present in the left lower lobe. A small area of atelectasis is present in the left lower lobe. The visualized right lung is clear. The urinary bladder and uterus are normal in appearance. Diverticula are present in the descending and sigmoid colon. Degenerative change is present in the spine. IMPRESSION: 1. The patient is status post cholecystectomy. 2. Bilateral adrenal adenomas as described above. 3. Hepatomegaly. 4. There are two 5 mm parenchymal nodules in the left lower lobe unchanged compared to the previous study. 5. Left lower lobe atelectasis. 6. Descending and sigmoid colon diverticulosis. Signed by Karel Yeboah MD 04/26/2017 01:18 P
[2017-04-26] MEDS: hydrOXYzine 25 MG TAB PO PRN (16:14)
[2017-04-26] MEDS: DOXYCYCLINE HYCLATE 100 MG in D5W MINI-BAG PLUS 100 ML IV SCH (17:36)
--- NOTE | 2017-04-26 18:02 | ECGEPIP ---
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
[2017-04-26 20:12] VITALS: BP 112/65
[2017-04-26] MEDS ORDERED: HumaLOG INSULIN (NovoLOG) PER UNIT SC SCH (21:00)
[2017-04-26] MEDS ORDERED: DULoxetine 30 MG CAP (CYMBALTA) PO SCH (21:00)
[2017-04-26] MEDS ORDERED: ATORVASTATIN 20 MG TAB PO SCH (21:00)
[2017-04-26] MEDS ORDERED: SLF 3 ML SYR IV PRN (21:15)
[2017-04-26 23:21] VITALS: BP 105/59
[2017-04-26] MEDS: SLF 3 ML SYR IV SCH (23:22)
[2017-04-27] MEDS: IPRATROPIUM 0.5MG/ALBUTEROL 2.5MG INH SOL UD 3ML (DUONEB)(J7620) NEB SCH ×3 (03:31→08:00)
[2017-04-27 04:47] VITALS: BP 131/79
[2017-04-27 05:09] LABS: BASO % 0.1 % (0.0-1.0); IMMATURE GRANULOCYTE % 0.8 % (0-0); LYMPH # 0.7 10^3/uL (1.5-4.5); LYMPH % 4.9 % (24.0-44.0); MEAN CORPUSCULAR HEMOGLOBIN 30.4 pg (27.0-33.0); MEAN CORPUSCULAR HGB CONC 32.3 g/dl (32.0-36.5); MEAN CORPUSCULAR VOLUME 94.3 fl (80.0-96.0); MONO # 0.5 10^3/uL (0.0-0.8); MONO % 3.4 % (0.0-5.0); NEUTROPHILS # 13.7 10^3/uL (1.8-7.7); NEUTROPHILS % 90.8 % (36.0-66.0); PLATELET COUNT, AUTOMATED 439 10^3/uL (150-450); RED CELL DISTRIBUTION WIDTH 15.4 % (11.5-14.5); WHITE BLOOD COUNT 15.1 10^3/uL (4.0-10.0)
[2017-04-27 05:23] LABS: ANION GAP 5 MEQ/L (8-16); BLOOD UREA NITROGEN 17 MG/DL (7-18); CALCIUM LEVEL 8.5 MG/DL (8.5-10.1); CARBON DIOXIDE LEVEL 34 MEQ/L (21-32); CHLORIDE LEVEL 100 MEQ/L (98-107); CREATININE FOR GFR 0.54 MG/DL (0.55-1.02); GLOMERULAR FILTRATION RATE > 60.0 (>51); GLUCOSE, FASTING 212 MG/DL (70-105); POTASSIUM SERUM 4.5 MEQ/L (3.5-5.1); SODIUM LEVEL 139 MEQ/L (136-145)
[2017-04-27] MEDS: DOXYCYCLINE HYCLATE 100 MG in D5W MINI-BAG PLUS 100 ML IV SCH (06:14)
[2017-04-27] MEDS: methylPREDNISolone INJ 125 MG/2 ML VIAL (J2930) IV SCH (06:14)
[2017-04-27] MEDS: SLF 3 ML SYR IV SCH (06:14)
[2017-04-27] MEDS: LEVOTHYROXINE 50MCG TABLET (0.05MG) PO SCH (06:15)
[2017-04-27] MEDS: HumaLOG INSULIN (NovoLOG) PER UNIT SC SCH (07:59)
[2017-04-27 08:00] VITALS: BP 129/71
[2017-04-27] MEDS: TIOTROPIUM INHALER/CAPSULE (SPIRIVA) INH SCH (08:11)
[2017-04-27] MEDS: ADVAIR HFA 115/21MCG INHALER INH SCH (08:11)
[2017-04-27] MEDS ORDERED: PRED10TA2 PO (08:37)
[2017-04-27] MEDS ORDERED: DOXY-278 PO (08:37)
[2017-04-27] MEDS ORDERED: PRED5TA PO (08:37)
[2017-04-27] MEDS ORDERED: IPRASOL4 INH (08:37)
[2017-04-27] MEDS: NICOTINE 21MG/24HR 1 EA TRANSDERMAL TD SCH (08:40)
[2017-04-27] MEDS: ASPIRIN 81 MG ENTERIC TAB PO SCH (08:40)
[2017-04-27 08:41] VITALS: BP 129/71
[2017-04-27] MEDS: GABAPENTIN 400 MG CAP PO SCH (08:41)
[2017-04-27] MEDS: LISINOPRIL *2.5 MG* TAB PO SCH (08:41)
[2017-04-27] MEDS: BISOPROLOL FUM 2.5 MG PER 1/2TAB PO SCH (08:41)
[2017-04-27] MEDS: PANTOPRAZOLE 40MG TAB (PROTONIX) PO SCH (08:42)
[2017-04-27] MEDS: DULoxetine 30 MG CAP (CYMBALTA) PO SCH (08:42)
[2017-04-27] MEDS: FLUTICASONE PROP 0.05% NASAL SPRAY 16 GM (FLONASE) SCH (08:42)
[2017-04-27] MEDS: lamoTRIgine 100MG TAB PO SCH (08:42)
[2017-04-27] MEDS: buPROPion 75 MG TAB PO SCH (08:42)
[2017-04-27] MEDS: ENOXAPARIN 40 MG/0.4 ML SYRINGE (J1650) SC SCH (08:43)
[2017-04-27] MEDS: hydrOXYzine 25 MG TAB PO PRN (08:57)
--- NOTE | 2017-04-27 15:23 | DSES ---
DATE OF ADMISSION: 04/26/2017 DATE OF DISCHARGE: 04/27/2017 PRIMARY CARE PROVIDER: Dr. Stefani Vo REFERRING PHYSICIAN: None. CONSULTING PHYSICIAN: None. CONDITION ON DISCHARGE: Guarded. FINAL DIAGNOSIS: Acute chronic obstructive pulmonary disease (COPD), exacerbation. PROCEDURES: None. HISTORY OF PRESENT ILLNESS: The patient is a 61-year-old with a past medical history of coronary artery disease, history of myocardial infarction (MO) five years ago, status post cardiac catheterization, hypertension, diabetes mellitus type 2, obstructive sleep apnea (SUYAPA) noncompliant with continuous positive airway pressure (CPAP), chronic hypoxic hypercarbic respiratory failure who presented to the emergency room (ER) with a two-day history of increasing shortness of breath and a chronic nonproductive cough. The patient was found to be in chronic obstructive pulmonary disease (COPD) exacerbation and was admitted to the hospitalist service. HOSPITAL COURSE: 1. Acute on chronic hypoxic hypercapnic respiratory failure, likely secondary to acute chronic obstructive pulmonary disease (COPD) exacerbation. Clinically, she presented with shortness of breath and productive cough, was found to be wheezing in the emergency room. She received Solu-Medrol as well as DuoNeb therapy. She has put on supplemental oxygen. Chest x-ray in the emergency room did not demonstrate any consolidation or concerns for pneumonia. The patient was admitted to the progressive care unit (PCU) and was continued on steroids as an inpatient. This morning, the patient was adamant that she was going to leave against medical advice because she had to take care of her cat. I have explained to the patient the risks and benefits of leaving against medical advice. I have sent her prescription for prednisone to the pharmacy and strongly advised the patient to remain in the hospital or return back to the hospital if she changes her mind. 2. Leukocytosis, likely reactive and has shown significant improvement throughout the hospital course. No signs of infection. The patient was put on doxycycline for immunological effect for her COPD. She is being continued on doxycycline as an outpatient. A prescription has been sent to the pharmacy. 3. Thrombocytosis. This has resolved. 4. Obstructive sleep apnea, noncompliant with continuous positive airway pressure (CPAP). Advised to followup as an outpatient for a sleep study. 5. Coronary artery disease. The patient was continued with aspirin. 6. Diabetes mellitus. Continue with sliding scale. 7. History of bipolar, anxiety and depression. Continue with home medication. 8. Hypertension. Blood pressure remains well controlled. Continue with home medications. 9. Fibromyalgia. Continue with gabapentin. 10. Deep vein thrombosis (DVT) prophylaxis. Continue with Lovenox. DISCHARGE MEDICATIONS: The patient will be discharged home with the following medication list: - doxycycline 100 mg by mouth twice a day for the next six days - prednisone 10 mg to be taken as directed on a tapering basis - albuterol two puffs inhaled every four hours as needed for shortness of breath - albuterol every six hours as needed for shortness of breath - DuoNeb inhaled every two hours as needed for shortness of breath - aspirin 81 mg by mouth daily - atorvastatin 80 mg by mouth daily - bisoprolol 2.5 mg by mouth daily - bupropion 75 mg by mouth daily - duloxetine 60 mg by mouth daily - duloxetine 30 mg by mouth at bedtime - Flonase one spray in each nostril daily - gabapentin 800 mg by mouth three times a day - hydroxyzine 75 mg by mouth every six hours as needed for anxiety - lamotrigine 100 mg by mouth twice a day - levothyroxine 50 mcg by mouth daily - lisinopril 2.5 mg by mouth daily - menthol one dose externally four times a day as needed pain - metformin 1000 by mouth twice a day - nicotine patch 21 mg transdermally daily - Protonix 40 mg by mouth daily - Advair Diskus one puff inhaled twice a day - tiotropium one capsule inhaled daily - tizanidine 2 mg by mouth three times a day for muscle spasms - tramadol 100 mg by mouth three times a day DISCHARGE INSTRUCTIONS: The patient has been advised to followup with her primary care provider who is Dr. Stefani Vo. She has been advised to remain compliant with treatment plan and medications and return to the emergency room if she experiences any problems. Her prescriptions have been sent to her pharmacy. The patient has been strongly advised to remain in the hospital for continued treatment for her chronic obstructive pulmonary disease (COPD). However, she is aware of the risks and benefits of leaving against medical advice. Her prescriptions were sent to the pharmacy. TIME SPENT ON DISCHARGE: Greater than 35 minutes.
[2017-04-27] MEDS ORDERED: methylPREDNISolone INJ 40 MG/1 ML VIAL (J2920) IV SCH (18:00)
== END 2017-04-27 11:00 | disposition left against medical advice (07) | DRG 189 ==
LOC: EDBD 00:15 → M ED 00:15 → M ED INP 06:05 → M PCU 08:10
PROVIDERS: ADMIT Internal Medicine; ATTEND Internal Medicine
DX: J96.21 Acute and chronic respiratory failure with hypoxia (principal); J44.1 Chronic obstructive pulmonary disease with (acute) exacerbation; J96.22 Acute and chronic respiratory failure with hypercapnia; I25.10 Atherosclerotic heart disease of native coronary artery without angina pectoris; I25.2 Old myocardial infarction; I10 Essential (primary) hypertension; F17.210 Nicotine dependence, cigarettes, uncomplicated; F31.9 Bipolar disorder, unspecified; F41.9 Anxiety disorder, unspecified; D47.3 Essential (hemorrhagic) thrombocythemia; E11.9 Type 2 diabetes mellitus without complications; M79.7 Fibromyalgia; G47.33 Obstructive sleep apnea (adult) (pediatric); Z79.82 Long term (current) use of aspirin; Z79.52 Long term (current) use of systemic steroids; Z79.899 Other long term (current) drug therapy; Z91.19 Patient's noncompliance with other medical treatment and regimen

== ENCOUNTER → 2017-09-09 | Outpatient (CLI) | payer MEDICARE, MEDICAID ==
[2017-09-09 10:29] LABS: HEMATOCRIT 43.8 % (36.0-47.0); HEMOGLOBIN 14.2 g/dl (12.0-15.5); MEAN CORPUSCULAR HEMOGLOBIN 31.3 pg (27.0-33.0); MEAN CORPUSCULAR HGB CONC 32.4 g/dl (32.0-36.5); MEAN CORPUSCULAR VOLUME 96.5 fl (80.0-96.0); PLATELET COUNT, AUTOMATED 374 10^3/uL (150-450); RED BLOOD COUNT 4.54 10^6/uL (4.00-5.40); RED CELL DISTRIBUTION WIDTH 13.2 % (11.5-14.5)
[2017-09-09 11:02] LABS: ALBUMIN 3.6 GM/DL (3.2-5.2); ALBUMIN/GLOBULIN RATIO 1.16 (1.00-1.93); ALKALINE PHOSPHATASE 113 U/L (45-117); ALT/SGPT 27 U/L (12-78); ANION GAP 5 MEQ/L (8-16); AST/SGOT 14 U/L (7-37); BILIRUBIN,TOTAL 0.2 MG/DL (0.2-1.0); BLOOD UREA NITROGEN 17 MG/DL (7-18); CALCIUM LEVEL 8.2 MG/DL (8.5-10.1); CARBON DIOXIDE LEVEL 29 MEQ/L (21-32); CHLORIDE LEVEL 108 MEQ/L (98-107); CHOLESTEROL LEVEL 130 MG/DL (<200); CHOLESTEROL RISK RATIO 2.321 (<5); CREATININE FOR GFR 0.49 MG/DL (0.55-1.30); GLOMERULAR FILTRATION RATE > 60.0 (>51); GLUCOSE, FASTING 164 MG/DL (70-100); HDL CHOLESTEROL 56 MG/DL (>40); LDL CHOLESTEROL 50.4 MG/DL (<100); NON-HDL-C 74 MG/DL; POTASSIUM SERUM 4.5 MEQ/L (3.5-5.1); SODIUM LEVEL 142 MEQ/L (136-145); THYROID STIMULATING HORMONE 0.431 uIU/ML (0.358-3.740); TOTAL PROTEIN 6.7 GM/DL (6.4-8.2); TRIGLYCERIDES LEVEL 118 MG/DL (<150)
[2017-09-09 11:15] LABS: ESTIMATED AVERAGE GLUCOSE 131 MG/DL (60-110); HEMOGLOBIN A1c 6.2 %
[2017-09-11 10:02] LABS: TOTAL 25(OH) VITAMIN D 21.2 NG/ML (30.0-100.0)
== END ==
LOC: M LAB 09:36
DX: R53.83 Other fatigue (principal); I10 Essential (primary) hypertension
CPT/HCPCS: 84443

== ENCOUNTER → 2018-01-11 | Outpatient (CLI) | payer MEDICARE, MEDICAID ==
[2018-01-11 10:27] LABS: HEMATOCRIT 45.5 % (36.0-47.0); HEMOGLOBIN 14.5 g/dl (12.0-15.5); MEAN CORPUSCULAR HEMOGLOBIN 31.7 pg (27.0-33.0); MEAN CORPUSCULAR HGB CONC 31.9 g/dl (32.0-36.5); MEAN CORPUSCULAR VOLUME 99.6 fl (80.0-96.0); PLATELET COUNT, AUTOMATED 336 10^3/uL (150-450); RED BLOOD COUNT 4.57 10^6/uL (4.00-5.40); RED CELL DISTRIBUTION WIDTH 12.5 % (11.5-14.5); WHITE BLOOD COUNT 12.2 10^3/uL (4.0-10.0)
[2018-01-11 10:46] LABS: ESTIMATED AVERAGE GLUCOSE 117 MG/DL (60-110); HEMOGLOBIN A1c 5.7 %
[2018-01-11 10:58] LABS: ALBUMIN 3.5 GM/DL (3.2-5.2); ALBUMIN/GLOBULIN RATIO 1.17 (1.00-1.93); ALKALINE PHOSPHATASE 116 U/L (45-117); ALT/SGPT 21 U/L (12-78); AMYLASE 107 U/L (25-115); ANION GAP 4 MEQ/L (8-16); AST/SGOT 13 U/L (7-37); BILIRUBIN,TOTAL 0.2 MG/DL (0.2-1.0); BLOOD UREA NITROGEN 15 MG/DL (7-18); CALCIUM LEVEL 8.6 MG/DL (8.8-10.2); CARBON DIOXIDE LEVEL 36 MEQ/L (21-32); CHLORIDE LEVEL 101 MEQ/L (98-107); CHOLESTEROL LEVEL 118 MG/DL (<200); CHOLESTEROL RISK RATIO 2.408 (<5); CREATININE FOR GFR 0.53 MG/DL (0.55-1.30); GLOMERULAR FILTRATION RATE > 60.0 (>45); GLUCOSE, FASTING 134 MG/DL (70-100); HDL CHOLESTEROL 49 MG/DL (>40); LDL CHOLESTEROL 44.2 MG/DL (<100); LIPASE 421 U/L (73-393); NON-HDL-C 69 MG/DL; POTASSIUM SERUM 4.6 MEQ/L (3.5-5.1); SODIUM LEVEL 141 MEQ/L (136-145); TOTAL PROTEIN 6.5 GM/DL (6.4-8.2); TRIGLYCERIDES LEVEL 124 MG/DL (<150)
== END ==
LOC: M LAB 09:58
DX: D64.9 Anemia, unspecified (principal); R53.83 Other fatigue; E11.9 Type 2 diabetes mellitus without complications
CPT/HCPCS: 82150

== ENCOUNTER 2018-08-01 11:41 | Inpatient (IN) | payer MEDICARE, MEDICAID ==
[~2018-08-01] VITALS: Ht 165.1 cm; Wt 98.0 kg
[2018-08-01] MEDS: ASPIRIN 81 MG ENTERIC TAB PO SCH (09:00)
[2018-08-01] MEDS: BISOPROLOL FUMARATE 5 MG TAB PO SCH (09:00)
[~2018-08-01 11:41] MED LIST changes: +BENG2.5G EXT; -BENGEL EXT; +BENZ-18 PO; -BENZ100C5 PO; +DOXY-350 PO; +GABA-1171 PO; -GABA-279 PO; -GABA-282 PO; +GABA-843 PO; -GABA800T PO; +GABA800T4 PO; -IBUP200C10 PO; +IBUP200C25 PO; +IPRA0.00 INH; +IPRA0.00 NEB; -IPRASOL4 INH; -IPRASOL4 NEB; -LISI2.5T3 PO; +LISI2.5T5 PO; +NAPR-50 PO; -NAPR500T PO; +NICO21DI34 TD; +NICO21DI6 TD; -NICODIS TD; -PANT40TA2 PO; +PANT40TA3 PO; +predniSONE 20 MG TAB PO SCH
[2018-08-01 12:32] LABS: BASO # 0.1 10^3/uL (0.0-0.2); BASO % 0.7 % (0.0-1.0); EOS # 0.2 10^3/uL (0.0-0.50); EOS % 1.9 % (0.0-3.0); HEMATOCRIT 45.7 % (36.0-47.0); HEMOGLOBIN 14.3 g/dl (12.0-15.5); MEAN CORPUSCULAR HEMOGLOBIN 31.1 pg (27.0-33.0); MEAN CORPUSCULAR HGB CONC 31.3 g/dl (32.0-36.5); MEAN CORPUSCULAR VOLUME 99.3 fl (80.0-96.0); MONO % 8.8 % (0.0-5.0); NEUTROPHILS # 7.4 10^3/uL (1.8-7.7); PLATELET COUNT, AUTOMATED 359 10^3/uL (150-450); WHITE BLOOD COUNT 10.8 10^3/uL (4.0-10.0)
[2018-08-01 12:38] LABS: BLOOD UREA NITROGEN 13 MG/DL (7-18); CALCIUM LEVEL 8.6 MG/DL (8.8-10.2); CARBON DIOXIDE LEVEL 39 MEQ/L (21-32); CHLORIDE LEVEL 98 MEQ/L (98-107); CREATININE FOR GFR 0.58 MG/DL (0.55-1.30); GLOMERULAR FILTRATION RATE > 60.0 (>45); GLUCOSE, FASTING 179 MG/DL (70-100); POTASSIUM SERUM 4.2 MEQ/L (3.5-5.1); SODIUM LEVEL 139 MEQ/L (136-145)
[2018-08-01] MEDS ORDERED: IPRATROPIUM 0.5MG/ALBUTEROL 2.5MG INH SOL UD 3ML (DUONEB)(J7620) NEB ONE (13:15)
[2018-08-01 13:36] LABS: ABG HCO3 38.3 MEQ/L (22.0-26.0); ABG O2 SATURATION 89.9 % (95.0-99.0); ABG PARTIAL PRESSURE O2 57.2 mmHg (75.0-100.0); ABG STANDARD HCO3 32.6 MEQ/L (22.0-26.0); ABG TOTAL CO2 40.6 MEQ/L (23.0-31.0); ABG pH (ARTERIAL) 7.325 UNITS (7.350-7.450)
[2018-08-01 13:38] LABS: ALBUMIN 3.4 GM/DL (3.2-5.2); ALT/SGPT 32 U/L (12-78); BILIRUBIN,DIRECT 0.1 MG/DL (0.0-0.2); BILIRUBIN,TOTAL 0.4 MG/DL (0.2-1.0); TOTAL PROTEIN 7.4 GM/DL (6.4-8.2)
[2018-08-01 13:38] LABS: ABG PARTIAL PRESSURE CO2 75.2 mmHg (35.0-45.0)
--- NOTE | 2018-08-01 13:41 | REP ---
Portable chest , single AP sitting view, 01:13 p.m.: Comparison is 04/12/2017. There are small infiltrates and the costophrenic angles bilaterally as an interval change. Lung cherry otherwise clear. Cardiac size normal. The wesly, mediastinum, and bony thorax are unchanged. Impression: Small bilateral infiltrates and the costophrenic angles. Electronically Signed by Brigido Hinton MD 08/01/2018 01:33 P
[2018-08-01] MEDS ORDERED: MOXIFLOXACIN HCL 400 MG in APPROPRIATE DILUENT 1 EA IV ONE (13:45)
[2018-08-01 14:01] LABS: INFLUENZA A AMPLIFICATION NEGATIVE (NEGATIVE); INFLUENZA B AMPLIFICATION NEGATIVE (NEGATIVE)
[2018-08-01] MEDS ORDERED: PRED5TA PO (14:47)
[2018-08-01] MEDS ORDERED: VENTAER INH (14:47)
[2018-08-01] MEDS ORDERED: HYDR1CAP25 PO (14:47)
[2018-08-01] MEDS ORDERED: IPRA0.00 INH (14:47)
[2018-08-01] MEDS ORDERED: HYDR-4514 PO (14:47)
[2018-08-01] MEDS ORDERED: SUCR1TAB56 PO (14:47)
[2018-08-01] MEDS ORDERED: DRIS50003 PO (14:47)
[2018-08-01] MEDS ORDERED: ADVA230A INH (14:47)
[2018-08-01] MEDS ORDERED: LEVO25TA34 PO (14:47)
[2018-08-01] MEDS ORDERED: SERT-138 PO (14:47)
[2018-08-01] MEDS ORDERED: hydrOXYzine 25 MG TAB PO PRN (17:30)
[2018-08-01] MEDS ORDERED: IPRATROPIUM 0.5MG/ALBUTEROL 2.5MG INH SOL UD 3ML (DUONEB)(J7620) NEB PRN (17:30)
[2018-08-01] MEDS ORDERED: DEXTROSE 50% 50 ML SYRINGE IV PRN (17:30)
[2018-08-01] MEDS ORDERED: GLUCAGON FOR INJ 1 MG VIAL (J1610) SC PRN (17:30)
[2018-08-01] MEDS ORDERED: GLUCOSE 4 GM CHEW TABLET PO PRN (17:30)
[2018-08-01] MEDS: HumaLOG INSULIN (NovoLOG) PER UNIT SC SCH ×2 (17:30→20:56)
[2018-08-01] MEDS ORDERED: ONDANSETRON 4MG/2ML VIAL (J2405) IV PRN (17:30)
[2018-08-01] MEDS: SUCRALFATE 1 GM TAB PO SCH (17:30)
[2018-08-01] MEDS: cefTRIAXone SOD 1 GM in D5W MINI-BAG PLUS 50 ML IV SCH (18:00)
[2018-08-01] MEDS ORDERED: ANEXSIA, NORCO 7.5MG/325MG TABLET(HYDROCODONE/APAP) PO PRN (20:45)
[2018-08-01] MEDS: ATORVASTATIN 20 MG TAB PO SCH (20:54)
[2018-08-01] MEDS: GABAPENTIN 400 MG CAP PO SCH (20:55)
[2018-08-01] MEDS: ENOXAPARIN 40 MG/0.4 ML SYRINGE (J1650) SC SCH (20:55)
[2018-08-01] MEDS: ANEXSIA, NORCO 7.5MG/325MG TABLET(HYDROCODONE/APAP) PO PRN (21:02)
--- NOTE | 2018-08-01 21:09 | ECGEPIP ---
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
--- NOTE | 2018-08-01 22:30 | HPE ---
DATE OF ADMISSION: 08/01/2018 CHIEF COMPLAINT: Shortness of breath and cough. HISTORY OF PRESENT ILLNESS: This is a 62-year-old female with past medical history of prior myocardial infarction (DE) and coronary artery disease, hypertension, type 2 diabetes, chronic hypoxic and hypercarbic respiratory failure secondary to chronic obstructive pulmonary disease (COPD) and smoking, obstructive sleep apnea on CPAP, who presents with chief complaint of shortness of breath and cough for the last four days. The patient reports that over the last four days she has felt generally unwell, has had four days of productive cough with yellow sputum, subjective fevers, has felt short of breath and difficulty catching her breath. Her appetite has been suppressed. She has had audible wheezing. She subjectively felt warm. No known sick contacts. She came for further evaluation given her difficulty breathing. EMERGENCY ROOM COURSE: The patient in the emergency room was noted to have respiratory acidosis with arterial blood gas (ABG) that showed a pH of 7.3, pCO2 of 75, pO2 of 57. She was noted to be tired and wheezing and she was given Solu-Medrol in nebulizers in the emergency room (ER). Her x-ray was concerning for pneumonia and she was given one dose of Avelox and admitted for further evaluation of pneumonia and chronic obstructive pulmonary disease (COPD) exacerbation. REVIEW OF SYSTEMS: Negative in 14 out of 14 systems except as noted above. PAST MEDICAL HISTORY: As noted above in history of present illness. PAST SURGICAL HISTORY: The patient has had a history of a left breast biopsy, cholecystectomy, tonsillectomy and tubal ligation. HOME MEDICATIONS: The patient's home medications are albuterol 2 puffs every 4 hours as needed, metformin 1 gram twice a day, prednisone 5 mg daily, Advair 2 puffs inhaled twice a day, Spiriva one inhalation daily, vitamin D 99962 units every week, hydrocodone/acetaminophen one tab by mouth three times a day as needed for pain, aspirin 81 mg daily, Lipitor 80 mg at bedtime, bisoprolol 2.5 mg by mouth daily, duloxetine 60 mg daily, Flonase 50 mcg one spray daily, gabapentin 800 mg by mouth three times a day, hydroxyzine 25 mg three times a day as needed for anxiety, Synthroid 25 mcg daily, pantoprazole 40 mg daily, sertraline 100 mg daily, Carafate 1 gram by mouth before meals (ac). ALLERGIES: No known drug allergies. SOCIAL HISTORY: The patient smoked for 45 years, one to two packs a day and quit about two weeks ago. She is . She has two adult children. No significant alcohol or drugs. FAMILY HISTORY: Mother had lung cancer and was also a smoker. PHYSICAL EXAMINATION: On exam, the patient's vitals currently temperature 97.5, blood pressure of 136/74, pulse is 89, saturating 95% on nasal canula. In general, she appears slightly uncomfortable, but is not breathing with significant effort. HEENT: Oropharynx clear. CARDIOVASCULAR: Regular rate and rhythm. LUNGS: She had decreased air movement bilaterally with some expiratory wheezing. ABDOMEN: Soft. She has got right lower quadrant tenderness, which she says is chronic. EXTREMITIES: No clubbing, cyanosis or edema. NEURO: She is alert and oriented times three, follows simple commands. No focal neurologic deficits. SKIN: Intact. PSYCHIATRIC: Mood is stable. LABORATORY: Reveals complete blood count (CBC) with a white count of 10.8, hemoglobin 14, hematocrit of 45, platelets of 359. Chemistry shows creatinine of 0.58, potassium of 4.2. Arterial blood gas (ABG) shows a pH of 7.32, pCO2 of 75, pO2 of 57. Flu is negative. X-ray shows small bilateral infiltrates. ASSESSMENT AND PLAN: This is a 62-year-old female with chronic hypercarbic and hypoxemic respiratory failure on home oxygen, diabetes, hypertension, prior myocardial infarction (DE) with coronary artery disease and hyperlipidemia, who presents with the chief complaint of shortness of breath and cough, likely from chronic obstructive pulmonary disease (COPD) exacerbation secondary to infectious trigger from a community acquired pneumonia. PROBLEMS: 1. Acute on chronic hypoxemic and hypercarbic respiratory failure secondary to chronic obstructive pulmonary disease (COPD) exacerbation, likely from an infectious trigger of community acquired pneumonia. The patient is being admitted for supportive and antibiotic care. I am placing the patient on nebulizers around the clock and as needed. She is going to get supplemental oxygen therapy, prednisone 60 mg daily and ceftriaxone, azithromycin. I will also check her respiratory panel in case there is a viral pneumonia that is contributing to her symptoms. She will receive supplemental oxygen. Her blood cultures are pending. 2. History of diabetes. I have held her home oral hypoglycemics and placed her on insulin sliding scale. 3. History of hypothyroidism. Continue home Synthroid. 4. History of depression. Continue home duloxetine. 5. History of hyperlipidemia. Continue home statin. 6. Deep vein thrombosis (DVT) prophylaxis, the patient is on Lovenox. MTDD
[2018-08-02] MEDS ORDERED: UNRESOLVED CLARIFICATION ENTRY XX SCH (00:01)
[2018-08-02] MEDS: IPRATROPIUM 0.5MG/ALBUTEROL 2.5MG INH SOL UD 3ML (DUONEB)(J7620) NEB SCH ×5 (02:00→20:00)
[2018-08-02 04:23] VITALS: BP 133/64
[2018-08-02] MEDS: LEVOTHYROXINE 25MCG TABLET (0.025MG) PO SCH (05:34)
[2018-08-02 07:17] LABS: HEMOGLOBIN 13.8 g/dl (12.0-15.5); MEAN CORPUSCULAR HEMOGLOBIN 30.5 pg (27.0-33.0); MEAN CORPUSCULAR HGB CONC 31.4 g/dl (32.0-36.5); MEAN CORPUSCULAR VOLUME 97.3 fl (80.0-96.0); PLATELET COUNT, AUTOMATED 373 10^3/uL (150-450); RED BLOOD COUNT 4.52 10^6/uL (4.00-5.40); WHITE BLOOD COUNT 8.1 10^3/uL (4.0-10.0)
[2018-08-02 07:44] LABS: BLOOD UREA NITROGEN 12 MG/DL (7-18); CALCIUM LEVEL 8.8 MG/DL (8.8-10.2); CARBON DIOXIDE LEVEL 39 MEQ/L (21-32); CHLORIDE LEVEL 97 MEQ/L (98-107); CREATININE FOR GFR 0.53 MG/DL (0.55-1.30); GLOMERULAR FILTRATION RATE > 60.0 (>45); GLUCOSE, FASTING 177 MG/DL (70-100); POTASSIUM SERUM 4.5 MEQ/L (3.5-5.1); SODIUM LEVEL 138 MEQ/L (136-145)
[2018-08-02] MEDS: methylPREDNISolone INJ 125 MG/2 ML VIAL (J2930) IV SCH ×2 (08:07→17:02)
[2018-08-02] MEDS: BISOPROLOL FUMARATE 5 MG TAB PO SCH (08:09)
[2018-08-02] MEDS: GABAPENTIN 400 MG CAP PO SCH ×3 (08:09→20:30)
[2018-08-02] MEDS: SERTRALINE 100 MG TAB PO SCH (08:10)
[2018-08-02] MEDS: PANTOPRAZOLE 40MG TAB (PROTONIX) PO SCH (08:10)
[2018-08-02] MEDS: HumaLOG INSULIN (NovoLOG) PER UNIT SC SCH ×4 (08:10→20:39)
[2018-08-02] MEDS: ASPIRIN 81 MG ENTERIC TAB PO SCH (08:10)
[2018-08-02] MEDS: SUCRALFATE 1 GM TAB PO SCH ×3 (08:10→18:02)
[2018-08-02] MEDS: DULoxetine 30 MG CAP (CYMBALTA) PO SCH (08:10)
[2018-08-02] MEDS: FLUTICASONE PROP 0.05% NASAL SPRAY 16 GM (FLONASE) SCH (08:12)
[2018-08-02] MEDS: AZITHROMYCIN INJ 500 MG, VIAL MATE ADAPTER 1 EACH in D5W 250 ML IV SCH (08:20)
[2018-08-02] MEDS: ANEXSIA, NORCO 7.5MG/325MG TABLET(HYDROCODONE/APAP) PO PRN ×2 (08:38→17:04)
[2018-08-02 08:44] LABS: C REACTIVE PROTEIN QUANTITATIV 1.14 MG/DL (0.00-0.30)
[2018-08-02] MEDS ORDERED: FLUBLOK(EGG FREE)(QUAD)INFLUENZA VACC 0.5ML SYRINGE (90682)18YRS&OLDER IM ONE (09:00)
[2018-08-02] MEDS: TIOTROPIUM INHALER/CAPSULE (SPIRIVA) INH SCH (09:16)
[2018-08-02] MEDS: ADVAIR HFA 230/21MCG INHALER INH SCH ×2 (09:16→20:58)
--- NOTE | 2018-08-02 11:33 | IPNPDOC ---
Text Note Date of Service The patient was seen on 08/02/18. NOTE Subjective: Patient is a 62-year-old female who presented to the hospital yesterday with a chief complaint of shortness of breath, cough, and increased tightness in her chest. Patient has a past medical history of COPD. Patient has been a longtime smoker and recently stopped smoking about 3 weeks ago. Patient says over the past 5-7 days she's felt increased tightness in her chest and an inability to take a deep breath. She has been coughing however, has not been productive. She did have a runny nose and a little bit of a sore throat over the past 5-7 days. Patient states that she wears oxygen at home and is normally on 2 L via nasal cannula. Patient says that she has a lot of pain so she does not ambulate a lot however, over the past 5-7 days she's noticed increased shortness of breath with ambulation or moving around her home. Patient also complains of chronic abdominal pain mostly on the right side. She states that she will occasionally gets an outpouching of her stomach on the right side which can sometimes be painful. She denies having any constipation or diarrhea that are associated with this. She was not able to pinpoint any foods that cause this. Patient says she is doing slightly better than yesterday however she still having some difficulty breathing and she says she is wheezing. Review of systems General: Patient denies fevers HEENT: Patient denies headaches Cardiovascular: Patient denies chest pain Respiratory: Shortness of breath and cough described above GI: Abdominal pain and bloating mostly on the right side of her abdomen. Denies nausea, vomiting, diarrhea : Patient denies pain or difficulty with urination Neurological: Patient denies numbness or tingling in extremities Extremities: Patient denies swelling or pain in extremities Objective: Vitals: (see below) General: No acute distress, laying comfortably in bed. HEENT: Normocephalic, atraumatic, moist mucous membranes. Neck: No JVD or lymphadenopathy Cardiac: RRR, No murmurs Pulm: Expiratory wheezing throughout lung cherry. Lungs tympanic to percussion. Abd: Slight area of distention in the right lower abdomen. Tenderness over this area. This area was more tympanic to percussion does endorse the abdomen. The rest of the abdomen was soft and nontender. Ext: No edema or cyanosis. Radial, posterior tibial, and dorsalis pedis pulses equal bilaterally. Labs (see below) Images: Patient had a chest x-ray performed on 08/01/2018 which showed small bilateral infiltrates in the costophrenic angles bilaterally. Assessment/Plan 1. Acute on chronic hypoxemic and hypercarbic respiratory failure secondary to chronic obstructive pulmonary disease exacerbation. This is most likely secondary to a community-acquired pneumonia which is present on x-ray. Patient has been started on steroids via the IV and IV antibiotics for treatment of the pneumonia. Patient is also getting nebulizer treatments. A respiratory panel was negative for any viral infection. Blood cultures and sputum cultures are pending. Patient will be placed on SUYAPA protocol. 2. History of diabetes. Patient is currently on sliding scale. 3. History of hypothyroidism. We will continue her home medications. 4. Depression. We will continue the patient's home medications. 5. Hyperlipidemia. We'll continue patient's home statin. DVT prophy: Lovenox 40 mg subcutaneous daily Dispo: Pending clinical improvement VS,Cathye, I+O VS, Fishbone, I+O Laboratory Tests 08/01/18 12:01 Red Blood Count 4.60, Mean Corpuscular Volume 99.3 H, Mean Corpuscular Hemoglobin 31.1, Mean Corpuscular Hemoglobin Concent 31.3 L, Red Cell Distribution Width 13.2, Neutrophils (%) (Auto) 69.0 H, Lymphocytes (%) (Auto) 19.0 L, Monocytes (%) (Auto) 8.8 H, Eosinophils (%) (Auto) 1.9, Basophils (%) (Auto) 0.7, Neutrophils # (Auto) 7.4, Lymphocytes # (Auto) 2.0, Monocytes # (Auto) 1.0 H, Eosinophils # (Auto) 0.2, Basophils # (Auto) 0.1, Calcium Level 8.6 L 08/02/18 07:06 Red Blood Count 4.52, Mean Corpuscular Volume 97.3 H, Mean Corpuscular Hemoglobin 30.5, Mean Corpuscular Hemoglobin Concent 31.4 L, Red Cell Distribution Width 13.0, Calcium Level 8.8 Vital Signs Date Time Temp Pulse Resp B/P (MAP) Pulse Ox O2 Delivery O2 Flow Rate FiO2 08/02/18 10:30 4.0 08/02/18 09:10 18 08/02/18 08:09 84 133/64 08/02/18 04:23 97.4 91 08/02/18 02:40 Nasal Cannula I&O- Last 24 Hours up to 6 AM 08/02/18 06:00 Intake Total 140 ml Output Total 0 ml Balance 140 ml GME ATTESTATION GME ATTESTATION My faculty preceptor for this patient encounter was physically present during the encounter and was fully available. All aspects of the patient interview, examination, medical decision making process, and medical care plan development were reviewed and approved by the faculty preceptor. The faculty preceptor is aware and concurs with the plan as stated in the body of this note and will attest to such by his/her cosignature. ATTENDING NOTE I have both independently examined this patient as well as reviewed the note I have discussed in detail the findings and plan of treatment as documented in the note. I will continue to follow the patient and offer further guidance to the patients care as necessary during this hospital stay. CEDRIC Bowers MD, DO Aug 02, 2018 11:33 VIET BROWNE MD Aug 03, 2018 07:29
[2018-08-02] MEDS: POLYVINYL ALCOHOL OPHTH SOLN 15 ML(LIQUITEARS) OU SCH ×3 (12:25→20:43)
[2018-08-02 14:00] VITALS: BP 171/89
[2018-08-02] MEDS: ACETAMINOPHEN TAB 650MG DOSE (2X325MG) PO PRN (14:12)
[2018-08-02] MEDS: cefTRIAXone SOD 1 GM in D5W MINI-BAG PLUS 50 ML IV SCH (18:02)
[2018-08-02] MEDS: ENOXAPARIN 40 MG/0.4 ML SYRINGE (J1650) SC SCH (20:30)
[2018-08-02] MEDS: ATORVASTATIN 20 MG TAB PO SCH (20:30)
[2018-08-02] MEDS: NYSTATIN 100,000 UNITS/GM TOPICAL PWD 15 GM TOP SCH (20:30)
[2018-08-02 22:00] VITALS: BP 146/74
[2018-08-03] MEDS: methylPREDNISolone INJ 125 MG/2 ML VIAL (J2930) IV SCH (00:01)
[2018-08-03] MEDS: IPRATROPIUM 0.5MG/ALBUTEROL 2.5MG INH SOL UD 3ML (DUONEB)(J7620) NEB SCH ×4 (01:45→20:00)
[2018-08-03] MEDS: LEVOTHYROXINE 25MCG TABLET (0.025MG) PO SCH (05:14)
[2018-08-03 06:00] VITALS: BP 168/77
[2018-08-03 06:07] LABS: HEMATOCRIT 41.2 % (36.0-47.0); HEMOGLOBIN 13.2 g/dl (12.0-15.5); MEAN CORPUSCULAR HEMOGLOBIN 30.6 pg (27.0-33.0); MEAN CORPUSCULAR VOLUME 95.4 fl (80.0-96.0); PLATELET COUNT, AUTOMATED 367 10^3/uL (150-450); RED BLOOD COUNT 4.32 10^6/uL (4.00-5.40); WHITE BLOOD COUNT 10.9 10^3/uL (4.0-10.0)
[2018-08-03 06:36] LABS: BLOOD UREA NITROGEN 14 MG/DL (7-18); C REACTIVE PROTEIN QUANTITATIV 0.53 MG/DL (0.00-0.30); CALCIUM LEVEL 8.5 MG/DL (8.8-10.2); CARBON DIOXIDE LEVEL 37 MEQ/L (21-32); CHLORIDE LEVEL 98 MEQ/L (98-107); GLOMERULAR FILTRATION RATE > 60.0 (>45); GLUCOSE, FASTING 239 MG/DL (70-100); MAGNESIUM LEVEL 1.9 MG/DL (1.8-2.4); POTASSIUM SERUM 4.1 MEQ/L (3.5-5.1); SODIUM LEVEL 138 MEQ/L (136-145)
[2018-08-03] MEDS: ADVAIR HFA 230/21MCG INHALER INH SCH ×2 (08:44→21:06)
[2018-08-03] MEDS: TIOTROPIUM INHALER/CAPSULE (SPIRIVA) INH SCH (08:44)
[2018-08-03] MEDS: NYSTATIN 100,000 UNITS/GM TOPICAL PWD 15 GM TOP SCH ×2 (08:52→21:00)
[2018-08-03] MEDS: ASPIRIN 81 MG ENTERIC TAB PO SCH (08:52)
[2018-08-03] MEDS: HumaLOG INSULIN (NovoLOG) PER UNIT SC SCH ×4 (08:52→21:00)
[2018-08-03] MEDS: SUCRALFATE 1 GM TAB PO SCH ×3 (08:53→17:46)
[2018-08-03] MEDS: ANEXSIA, NORCO 7.5MG/325MG TABLET(HYDROCODONE/APAP) PO PRN ×2 (08:53→17:50)
[2018-08-03] MEDS: DULoxetine 30 MG CAP (CYMBALTA) PO SCH (08:53)
[2018-08-03] MEDS: BISOPROLOL FUMARATE 5 MG TAB PO SCH (08:53)
[2018-08-03] MEDS: PANTOPRAZOLE 40MG TAB (PROTONIX) PO SCH (08:54)
[2018-08-03] MEDS: AZITHROMYCIN INJ 500 MG, VIAL MATE ADAPTER 1 EACH in D5W 250 ML IV SCH (08:54)
[2018-08-03] MEDS: GABAPENTIN 400 MG CAP PO SCH ×3 (08:54→20:14)
[2018-08-03] MEDS: SERTRALINE 100 MG TAB PO SCH (08:54)
[2018-08-03] MEDS: predniSONE 20 MG TAB PO SCH ×2 (09:06→20:14)
[2018-08-03] MEDS: MIRALAX *UNIT DOSE* 17GM PACKET PO SCH (09:06)
[2018-08-03] MEDS: POLYVINYL ALCOHOL OPHTH SOLN 15 ML(LIQUITEARS) OU SCH ×3 (09:06→21:00)
[2018-08-03] MEDS: FLUTICASONE PROP 0.05% NASAL SPRAY 16 GM (FLONASE) SCH (09:06)
[2018-08-03] MEDS: SENOKOT S TAB PO SCH ×2 (09:06→20:14)
--- NOTE | 2018-08-03 11:27 | IPNPDOC ---
Text Note Date of Service The patient was seen on 08/03/18. NOTE Subjective: Patient is a 62-year-old female who presented to the hospital with shortness of breath. Patient's was found to be in a COPD exacerbation. Patient is doing better today. She is complaining of some abdominal pain on the right side. Patient did have an open cholecystectomy 40 years ago. Patient says she has not had a bowel movement yet since being in the hospital. She is urinating without difficulty. She states her shortness of breath and coughing is better than yesterday however, it is not near her baseline. She is usually on 2 L at home. Patient required 4.5 L of oxygen overnight. Review of systems General: Patient denies fevers HEENT: Patient denies headaches Cardiovascular: Patient denies chest pain Respiratory: Shortness of breath and cough as described above GI: Patient endorses mild abdominal pain. Patient denies nausea, vomiting, diarrhea : Patient denies pain or difficulty with urination Neurological: Patient denies numbness or tingling in extremities Extremities: Patient denies swelling or pain in extremities Objective: Vitals: (see below) General: No acute distress, laying comfortably in bed. HEENT: Normocephalic, atraumatic, moist mucous membranes. Neck: No JVD or lymphadenopathy Cardiac: RRR, No murmurs Pulm: Scattered end expiratory wheeze Abd: Tenderness to palpation of the right upper quadrant. Nontender in other quadrants. Diastases recti present Ext: No edema or cyanosis. Radial, posterior tibial, and dorsalis pedis pulses equal bilaterally. Labs (see below) Images: No new imaging has been performed Assessment/Plan 1. Acute on chronic hypoxemic and hypercarbic respiratory failure secondary to chronic obstructive pulmonary disease exacerbation. Patient is noncompliant with treatment at home. Patient had recently quit smoking. This is one of many attempts the patient has had to quit smoking. Patient's x-ray was initially read as possible pneumonia. Patient's white blood cell count was normal and patient's CRP is relatively low. We've discontinued the patient's Rocephin. We are continuing oral azithromycin more for his anti-inflammatory effects than his antibiotic effects. We have transition the patient to oral prednisone 40 mg twice a day and we will continue to monitor. 2. History of diabetes. Patient is currently on sliding scale and we will continue to monitor as we give cortical steroids. 3. History of hypothyroidism. We will continue her home medications. 4. Depression. We'll continue patient's medications. 5. Hyperlipidemia. We will continue patient's home statin. DVT prophy: Lovenox 40 mg subcutaneous daily Dispo: Pending clinical improvement VS,Fishbone, I+O VS, Fishbone, I+O Laboratory Tests 08/03/18 05:40 Red Blood Count 4.32, Mean Corpuscular Volume 95.4, Mean Corpuscular Hemoglobin 30.6, Mean Corpuscular Hemoglobin Concent 32.0, Red Cell Distribution Width 12.8, Calcium Level 8.5 L Vital Signs Date Time Temp Pulse Resp B/P (MAP) Pulse Ox O2 Delivery O2 Flow Rate FiO2 08/03/18 09:30 21 08/03/18 09:26 84 3.0 08/03/18 08:53 75 168/77 08/03/18 06:00 97.0 08/02/18 02:40 Nasal Cannula I&O- Last 24 Hours up to 6 AM 08/03/18 06:00 Intake Total 3270 ml Output Total 400 ml Balance 2870 ml GME ATTESTATION GME ATTESTATION My faculty preceptor for this patient encounter was physically present during the encounter and was fully available. All aspects of the patient interview, examination, medical decision making process, and medical care plan development were reviewed and approved by the faculty preceptor. The faculty preceptor is aware and concurs with the plan as stated in the body of this note and will attest to such by his/her cosignature. ATTENDING NOTE I have both independently examined this patient as well as reviewed the note I have discussed in detail the findings and plan of treatment as documented in the note. I will continue to follow the patient and offer further guidance to the patients care as necessary during this hospital stay. CEDRIC Bowers MD, DO Aug 03, 2018 11:27 VIET BROWNE MD Aug 04, 2018 19:10
[2018-08-03 14:00] VITALS: BP 141/75
[2018-08-03] MEDS: ACETAMINOPHEN TAB 650MG DOSE (2X325MG) PO PRN (15:10)
[2018-08-03] MEDS: ATORVASTATIN 20 MG TAB PO SCH (20:13)
[2018-08-03] MEDS: ENOXAPARIN 40 MG/0.4 ML SYRINGE (J1650) SC SCH (20:14)
[2018-08-03 22:00] VITALS: BP 128/61
[2018-08-04] MEDS: IPRATROPIUM 0.5MG/ALBUTEROL 2.5MG INH SOL UD 3ML (DUONEB)(J7620) NEB SCH ×4 (02:27→20:00)
[2018-08-04] MEDS: LEVOTHYROXINE 25MCG TABLET (0.025MG) PO SCH (05:43)
[2018-08-04 05:55] LABS: HEMATOCRIT 42.2 % (36.0-47.0); HEMOGLOBIN 13.4 g/dl (12.0-15.5); MEAN CORPUSCULAR HEMOGLOBIN 30.4 pg (27.0-33.0); MEAN CORPUSCULAR HGB CONC 31.8 g/dl (32.0-36.5); MEAN CORPUSCULAR VOLUME 95.7 fl (80.0-96.0); PLATELET COUNT, AUTOMATED 366 10^3/uL (150-450); RED BLOOD COUNT 4.41 10^6/uL (4.00-5.40); WHITE BLOOD COUNT 12.2 10^3/uL (4.0-10.0)
[2018-08-04 06:00] VITALS: BP 154/70
[2018-08-04 06:17] LABS: BLOOD UREA NITROGEN 17 MG/DL (7-18); C REACTIVE PROTEIN QUANTITATIV 0.38 MG/DL (0.00-0.30); CALCIUM LEVEL 8.3 MG/DL (8.8-10.2); CARBON DIOXIDE LEVEL 35 MEQ/L (21-32); CHLORIDE LEVEL 99 MEQ/L (98-107); CREATININE FOR GFR 0.66 MG/DL (0.55-1.30); GLOMERULAR FILTRATION RATE > 60.0 (>45); GLUCOSE, FASTING 235 MG/DL (70-100); MAGNESIUM LEVEL 1.9 MG/DL (1.8-2.4); POTASSIUM SERUM 4.3 MEQ/L (3.5-5.1); SODIUM LEVEL 139 MEQ/L (136-145)
[2018-08-04] MEDS: POLYVINYL ALCOHOL OPHTH SOLN 15 ML(LIQUITEARS) OU SCH ×3 (09:24→22:32)
[2018-08-04] MEDS: FLUTICASONE PROP 0.05% NASAL SPRAY 16 GM (FLONASE) SCH ×2 (09:24→22:32)
[2018-08-04] MEDS: NYSTATIN 100,000 UNITS/GM TOPICAL PWD 15 GM TOP SCH ×2 (09:24→21:00)
[2018-08-04] MEDS: MIRALAX *UNIT DOSE* 17GM PACKET PO SCH (09:25)
[2018-08-04] MEDS: AZITHROMYCIN 250 MG TAB PO SCH (09:25)
[2018-08-04] MEDS: GABAPENTIN 400 MG CAP PO SCH ×3 (09:25→22:31)
[2018-08-04] MEDS: ASPIRIN 81 MG ENTERIC TAB PO SCH (09:25)
[2018-08-04] MEDS: DULoxetine 30 MG CAP (CYMBALTA) PO SCH (09:25)
[2018-08-04] MEDS: HumaLOG INSULIN (NovoLOG) PER UNIT SC SCH ×4 (09:25→21:00)
[2018-08-04] MEDS: SENOKOT S TAB PO SCH ×2 (09:26→22:32)
[2018-08-04] MEDS: SERTRALINE 100 MG TAB PO SCH (09:26)
[2018-08-04] MEDS: BISOPROLOL FUMARATE 5 MG TAB PO SCH (09:26)
[2018-08-04] MEDS: ANEXSIA, NORCO 7.5MG/325MG TABLET(HYDROCODONE/APAP) PO PRN ×2 (09:26→16:06)
[2018-08-04] MEDS: PANTOPRAZOLE 40MG TAB (PROTONIX) PO SCH (09:26)
[2018-08-04] MEDS: predniSONE 20 MG TAB PO SCH ×2 (09:26→22:31)
[2018-08-04] MEDS: SUCRALFATE 1 GM TAB PO SCH ×3 (09:26→17:36)
[2018-08-04] MEDS: ADVAIR HFA 230/21MCG INHALER INH SCH ×2 (09:39→20:25)
[2018-08-04] MEDS: TIOTROPIUM INHALER/CAPSULE (SPIRIVA) INH SCH (09:39)
[2018-08-04] MEDS ORDERED: ISOVUE-370 76% 100ML VIAL (Q9967) As Ordered ONE (11:07)
--- NOTE | 2018-08-04 11:51 | REP ---
CT ANGIOGRAM CHEST: 08/04/2018. COMPARISON: 04/12/2017 CT angiogram; Low-dose lung CT 05/26/2018. TECHNIQUE: Bolus of 75 mL Isovue 370 and scanning through the chest with CT angiogram protocol and with coronal and sagittal MIP thick slab reformats and standard reformats. CLINICAL HISTORY: Chest pain, dyspnea. FINDINGS: The lung cherry again show a left lower lobe, stable pulmonary nodules. The largest 6 mm and unchanged. There is no pleural effusion, acute infiltrate, atelectasis or mass. There is some curvilinear fiber atelectatic change peripherally in the right upper lobe in the mid chest as before. Some dependent atelectatic changes are also seen upper lung zones. Heart is not grossly enlarged. There is no pericardial thickening or effusion. The aorta has atherosclerotic calcifications but no aneurysm or dissection. Main, right and left pulmonary arteries prominent suggesting some degree of pulmonary hypertension. No filling defects noted. The lobar, segmental and visible subsegmental arteries also are without filling defect or vessel cutoff to suggest emboli. No pathologic sized mediastinal or hilar adenopathy. There is no axillary or supraclavicular mass. Bone windows show some degenerative changes in the spine without evidence of destructive lesion or fractures. Left hepatic lobe is prominent in the upper abdomen, but the liver is seen in complete fashion. Spleen is without enlargement. There are clips from prior cholecystectomy. That portion of pancreas seen with normal adrenal glands are unchanged. The upper poles of the kidneys without acute finding. IMPRESSION: 1. There is no CT evidence of pulmonary thromboembolism. Some pulmonary artery hypertension is evident. 2. No aortic aneurysm or dissection. 3. Stable appearance of small parenchymal nodules left lower lobe and some underlying minor fibrotic change. 4. Enlarged left lobe of the liver. Upper abdomen incompletely evaluated. Nothing acute. Electronically Signed by Ney Ramos MD 08/04/2018 09:50 P
[2018-08-04 13:13] LABS: CPK CREATINE PHOSPHOKINASE 68 U/L (26-192); MB/CK RELATIVE INDEX 2.79 (< OR =4); TROPONIN I < 0.02 NG/ML (< 0.10)
[2018-08-04 14:00] VITALS: BP 164/80
--- NOTE | 2018-08-04 16:20 | IPNPDOC ---
Text Note Date of Service The patient was seen on 08/04/18. NOTE Subjective: Patient is a 62-year-old female who presented with a COPD exacerbation. Today, patient says she was having some pain in the center of her chest. This pain was exacerbated by attempting to take a deep breath. She did not have any other associated symptoms such as nausea, sweating, or jaw pain. Patient says the pain radiated to her back. While I was in the room, she said she was getting a similar pain in her back that she felt earlier in the morning. She says it felt more like heaviness. Patient says that her breathing is improving. She said that the Acapella that was given to her has made her cough a lot and she has started bringing up clear sputum up. She says she has not had a bowel movement since Thursday. She says she feels like she does not have to go at this time. Review of systems General: Patient denies fevers HEENT: Patient denies headaches Cardiovascular: Chest heaviness as described above Respiratory: Shortness of breath and cough as described above GI: Patient endorses abdominal pain that is chronic on the right upper quadrant. Patient denies nausea, vomiting, diarrhea : Patient denies pain or difficulty with urination Neurological: Patient denies numbness or tingling in extremities Extremities: Patient denies swelling or pain in extremities Objective: Vitals: (see below) General: No acute distress, laying comfortably in bed. HEENT: Normocephalic, atraumatic, moist mucous membranes. Neck: No JVD or lymphadenopathy Cardiac: RRR, No murmurs Pulm: Poor air movement heard in all lung cherry. No wheezes auscultated. Abd: Tenderness to palpation of the right upper quadrant. Nontender throughout the rest of the abdomen. Ext: No edema or cyanosis. Radial, posterior tibial, and dorsalis pedis pulses equal bilaterally. Musculoskeletal: Hypertonic and tender paraspinal musculature about T7 through T9. Labs (see below) Images: A CT angiography of the chest performed on 08/04/[address] evidence of pulmonary thromboembolism. Some pulmonary artery hypertension is evident. No aortic aneurysm or dissection. Stable appearance of small parenchymal nodules in the left lower lobe and some underlying minor fibrotic changes. Enlarged left lobe of the liver. Upper abdomen incompletely evaluated. Nothing acute Assessment/Plan 1. Acute on chronic hypoxemic and hypercarbic respiratory failure secondary to chronic obstructive pulmonary disease exacerbation. Patient is noncompliant with treatment home. Patient had recently quit smoking. This is one of her many attempts to quit smoking. Patient will be continued on azithromycin for anti- inflammatory effects. Patient is currently continue on oral prednisone 40 mg twice a day and nebulizer treatments. We will continue to monitor. 2. Chest pain/heaviness. CT angiography was negative for pulmonary embolism. Cardiac injury markers were negative. Patient did have muscle spasms on physical exam in the paraspinal musculature of the back. This may be the cause of her pain along with her COPD exacerbation. 3. History of diabetes. Patient is currently on sliding scale insulin and we will monitor as we give prednisone. 4. History of hypothyroidism. We will continue her home medications. 5. Depression. We will continue the patient's medications. 6. Hyperlipidemia. We will continue the patient's home statin. DVT prophy: Lovenox 40 mg subcutaneous daily Dispo: Pending clinical improvement VS,Ant, I+O VS, aCthye, I+O Laboratory Tests 08/04/18 05:43 Red Blood Count 4.41, Mean Corpuscular Volume 95.7, Mean Corpuscular Hemoglobin 30.4, Mean Corpuscular Hemoglobin Concent 31.8 L, Red Cell Distribution Width 13.0, Calcium Level 8.3 L Vital Signs Date Time Temp Pulse Resp B/P (MAP) Pulse Ox O2 Delivery O2 Flow Rate FiO2 08/04/18 16:09 22 08/04/18 14:00 97.1 79 164/80 (108) 90 08/04/18 09:15 3.0 08/02/18 02:40 Nasal Cannula I&O- Last 24 Hours up to 6 AM 08/04/18 06:00 Intake Total 3070 ml Output Total 0 ml Balance 3070 ml GME ATTESTATION GME ATTESTATION My faculty preceptor for this patient encounter was physically present during the encounter and was fully available. All aspects of the patient interview, examination, medical decision making process, and medical care plan development were reviewed and approved by the faculty preceptor. The faculty preceptor is aware and concurs with the plan as stated in the body of this note and will attest to such by his/her cosignature. ATTENDING NOTE I have both independently examined this patient as well as reviewed the note I have discussed in detail the findings and plan of treatment as documented in the note. I will continue to follow the patient and offer further guidance to the patients care as necessary during this hospital stay. CEDRIC Bowers MD, DO Aug 04, 2018 16:20 VIET BROWNE MD Aug 04, 2018 19:16
[2018-08-04 17:24] LABS: CPK CREATINE PHOSPHOKINASE 84 U/L (26-192); MB/CK RELATIVE INDEX 2.86 (< OR =4); TROPONIN I < 0.02 NG/ML (< 0.10)
--- NOTE | 2018-08-04 17:45 | ECGEPIP ---
Stationary ECG Study [facility] Test Date: 2018-08-04 Pat Name: MIGUEL NAQVI Department: Room: [place] [address] Gender: F Herb Grower: ISIDRO : [id number] Requested By: VIET BROWNE Order Number: [id number] Reading MD: Chris Lockett Measurements Intervals [place] Rate: 77 P: 70 WA: 143 QRS: 55 QRSD: 93 T: 68 QT: 366 QTc: 417 Interpretive Statements Normal sinus rhythm Low QRS voltages in the limb leads Delayed anterior R-wave progression, suspect prior anterior wall myocardial infarction Nonspecific T-wave abnormalities No significant change since prior tracing of 08/01/2018 Electronically Signed On 08-04-2018 17:44:51 EDT by Chris Lockett
[2018-08-04 22:00] VITALS: BP 136/64
[2018-08-04] MEDS: ATORVASTATIN 20 MG TAB PO SCH (22:31)
[2018-08-04] MEDS: ENOXAPARIN 40 MG/0.4 ML SYRINGE (J1650) SC SCH (22:31)
[2018-08-05] MEDS: IPRATROPIUM 0.5MG/ALBUTEROL 2.5MG INH SOL UD 3ML (DUONEB)(J7620) NEB SCH ×4 (02:00→20:00)
[2018-08-05] MEDS: LEVOTHYROXINE 25MCG TABLET (0.025MG) PO SCH (05:30)
[2018-08-05 06:00] VITALS: BP 155/78
[2018-08-05 07:10] LABS: HEMATOCRIT 41.9 % (36.0-47.0); HEMOGLOBIN 13.4 g/dl (12.0-15.5); MEAN CORPUSCULAR HEMOGLOBIN 30.5 pg (27.0-33.0); MEAN CORPUSCULAR VOLUME 95.2 fl (80.0-96.0); PLATELET COUNT, AUTOMATED 344 10^3/uL (150-450); WHITE BLOOD COUNT 9.9 10^3/uL (4.0-10.0)
[2018-08-05 07:23] LABS: BLOOD UREA NITROGEN 15 MG/DL (7-18); C REACTIVE PROTEIN QUANTITATIV < 0.30 MG/DL (0.00-0.30); CALCIUM LEVEL 8.3 MG/DL (8.8-10.2); CARBON DIOXIDE LEVEL 33 MEQ/L (21-32); CHLORIDE LEVEL 98 MEQ/L (98-107); CREATININE FOR GFR 0.59 MG/DL (0.55-1.30); GLOMERULAR FILTRATION RATE > 60.0 (>45); GLUCOSE, FASTING 239 MG/DL (70-100); MAGNESIUM LEVEL 2.1 MG/DL (1.8-2.4); POTASSIUM SERUM 4.8 MEQ/L (3.5-5.1); SODIUM LEVEL 136 MEQ/L (136-145)
[2018-08-05] MEDS: ADVAIR HFA 230/21MCG INHALER INH SCH ×2 (08:35→20:10)
[2018-08-05] MEDS: MIRALAX *UNIT DOSE* 17GM PACKET PO SCH (08:48)
[2018-08-05] MEDS: DULoxetine 30 MG CAP (CYMBALTA) PO SCH (08:49)
[2018-08-05] MEDS: AZITHROMYCIN 250 MG TAB PO SCH (08:49)
[2018-08-05] MEDS: GABAPENTIN 400 MG CAP PO SCH ×3 (08:49→20:12)
[2018-08-05] MEDS: SENOKOT S TAB PO SCH ×2 (08:49→20:12)
[2018-08-05] MEDS: SUCRALFATE 1 GM TAB PO SCH ×3 (08:49→17:16)
[2018-08-05] MEDS: PANTOPRAZOLE 40MG TAB (PROTONIX) PO SCH (08:49)
[2018-08-05] MEDS: HumaLOG INSULIN (NovoLOG) PER UNIT SC SCH ×4 (08:49→20:14)
[2018-08-05 08:50] VITALS: BP 155/78
[2018-08-05] MEDS: ASPIRIN 81 MG ENTERIC TAB PO SCH (08:50)
[2018-08-05] MEDS: SERTRALINE 100 MG TAB PO SCH (08:50)
[2018-08-05] MEDS: ANEXSIA, NORCO 7.5MG/325MG TABLET(HYDROCODONE/APAP) PO PRN ×2 (08:50→15:17)
[2018-08-05] MEDS: BISOPROLOL FUMARATE 5 MG TAB PO SCH (08:50)
[2018-08-05] MEDS: NYSTATIN 100,000 UNITS/GM TOPICAL PWD 15 GM TOP SCH ×2 (08:51→20:13)
[2018-08-05] MEDS: POLYVINYL ALCOHOL OPHTH SOLN 15 ML(LIQUITEARS) OU SCH ×3 (08:51→20:13)
[2018-08-05] MEDS: TIOTROPIUM INHALER/CAPSULE (SPIRIVA) INH SCH (09:00)
[2018-08-05] MEDS: predniSONE 50 MG TAB PO SCH (13:11)
--- NOTE | 2018-08-05 13:52 | IPNPDOC ---
Text Note Date of Service The patient was seen on 08/05/18. NOTE Subjective: Patient is a 62-year-old female who initially presented with difficulty breathing secondary to a COPD exacerbation. Patient was complaining also of constipation however, patient did have a bowel movement this morning. Patient says her breathing is better. She is able to get up and walk around more. She is doing well. She is eating and drinking without difficulty. Review of systems General: Patient denies fevers HEENT: Patient denies headaches Cardiovascular: Patient denies chest pain Respiratory: Improved shortness of breath and cough GI: Patient denies abdominal pain, nausea, vomiting, diarrhea : Patient denies pain or difficulty with urination Neurological: Patient denies numbness or tingling in extremities Extremities: Patient denies swelling or pain in extremities Objective: Vitals: (see below) General: No acute distress, laying comfortably in bed. HEENT: Normocephalic, atraumatic, moist mucous membranes. Neck: No JVD or lymphadenopathy Cardiac: RRR, No murmurs Pulm: Diminished breath sounds in all lung cherry. No wheezing Abd: Mild tenderness in the right upper quadrant./ND + BS Ext: No edema or cyanosis. Radial, posterior tibial, and dorsalis pedis pulses equal bilaterally. Labs (see below) Images: No new imaging has been performed. Assessment/Plan 1. Acute on chronic hypoxemic and hypercarbic respiratory failure secondary to chronic obstructive pulmonary disease exacerbation. Patient is noncompliant with treatment at home. Patient has recently quit smoking. His arm and he quit attempts. Patient will be continued on azithromycin for anti-inflammatory effects. Patient is currently on prednisone 50 mg once a day and nebulizer treat ments. We will continue to monitor the patient. Patient is currently on 2.5 L of oxygen. Patient is chronically on 2 L at home. 2. Chest pain/heaviness. She is not complaining of this today. CT angiography was negative for pulmonary embolism. Cardiac injury markers were negative and EKG was negative. 3. History of diabetes. Patient is currently on sliding scale insulin will continue to monitor as we give corticosteroids. 4. History of hypothyroidism. We'll continue her home medications. 5. Depression. We'll continue the patient's current medications. 6. Hyperlipidemia. We will continue the patient's home statin. DVT prophy: Lovenox 40 mg subcutaneous daily Dispo: Pending continue clinical improvement. Plan to discharge patient tomorrow with home health aide and outpatient physical therapy. VS,Fishbone, I+O VS, Fishbone, I+O Laboratory Tests 08/05/18 06:36 Red Blood Count 4.40, Mean Corpuscular Volume 95.2, Mean Corpuscular Hemoglobin 30.5, Mean Corpuscular Hemoglobin Concent 32.0, Red Cell Distribution Width 12.9, Calcium Level 8.3 L Vital Signs Date Time Temp Pulse Resp B/P (MAP) Pulse Ox O2 Delivery O2 Flow Rate FiO2 08/05/18 09:45 20 08/05/18 08:50 64 155/78 08/05/18 06:00 96.9 97 2.5 08/02/18 02:40 Nasal Cannula I&O- Last 24 Hours up to 6 AM 08/05/18 06:00 Intake Total 3000 ml Output Total 1 ml Balance 2999 ml GME ATTESTATION GME ATTESTATION My faculty preceptor for this patient encounter was physically present during the encounter and was fully available. All aspects of the patient interview, examination, medical decision making process, and medical care plan development were reviewed and approved by the faculty preceptor. The faculty preceptor is aware and concurs with the plan as stated in the body of this note and will attest to such by his/her cosignature. ATTENDING NOTE I have both independently examined this patient as well as reviewed the note I have discussed in detail the findings and plan of treatment as documented in the note. I will continue to follow the patient and offer further guidance to the patients care as necessary during this hospital stay. CEDRIC Bowers MD, DO Aug 05, 2018 13:52 VIET BROWNE MD Aug 05, 2018 14:43
[2018-08-05 14:00] VITALS: BP 154/79
[2018-08-05] MEDS: ACETAMINOPHEN TAB 650MG DOSE (2X325MG) PO PRN (20:12)
[2018-08-05] MEDS: ATORVASTATIN 20 MG TAB PO SCH (20:12)
[2018-08-05] MEDS: ENOXAPARIN 40 MG/0.4 ML SYRINGE (J1650) SC SCH (20:13)
[2018-08-05 22:00] VITALS: BP 168/75
[2018-08-06] MEDS: IPRATROPIUM 0.5MG/ALBUTEROL 2.5MG INH SOL UD 3ML (DUONEB)(J7620) NEB SCH ×2 (01:46→07:42)
[2018-08-06] MEDS: LEVOTHYROXINE 25MCG TABLET (0.025MG) PO SCH (05:24)
[2018-08-06 06:00] VITALS: BP 173/80
[2018-08-06 06:56] LABS: HEMATOCRIT 43.5 % (36.0-47.0); HEMOGLOBIN 13.7 g/dl (12.0-15.5); MEAN CORPUSCULAR HEMOGLOBIN 30.1 pg (27.0-33.0); MEAN CORPUSCULAR HGB CONC 31.5 g/dl (32.0-36.5); MEAN CORPUSCULAR VOLUME 95.6 fl (80.0-96.0); PLATELET COUNT, AUTOMATED 355 10^3/uL (150-450); RED BLOOD COUNT 4.55 10^6/uL (4.00-5.40); WHITE BLOOD COUNT 11.2 10^3/uL (4.0-10.0)
[2018-08-06 07:27] LABS: BLOOD UREA NITROGEN 17 MG/DL (7-18); C REACTIVE PROTEIN QUANTITATIV < 0.30 MG/DL (0.00-0.30); CALCIUM LEVEL 8.2 MG/DL (8.8-10.2); CARBON DIOXIDE LEVEL 36 MEQ/L (21-32); CHLORIDE LEVEL 98 MEQ/L (98-107); CREATININE FOR GFR 0.58 MG/DL (0.55-1.30); GLOMERULAR FILTRATION RATE > 60.0 (>45); GLUCOSE, FASTING 162 MG/DL (70-100); POTASSIUM SERUM 3.8 MEQ/L (3.5-5.1); SODIUM LEVEL 139 MEQ/L (136-145)
[2018-08-06] MEDS: SUCRALFATE 1 GM TAB PO SCH (07:30)
[2018-08-06] MEDS: ADVAIR HFA 230/21MCG INHALER INH SCH (07:41)
[2018-08-06] MEDS: TIOTROPIUM INHALER/CAPSULE (SPIRIVA) INH SCH (07:41)
[2018-08-06] MEDS: MIRALAX *UNIT DOSE* 17GM PACKET PO SCH (09:00)
[2018-08-06] MEDS: ANEXSIA, NORCO 7.5MG/325MG TABLET(HYDROCODONE/APAP) PO PRN (09:29)
[2018-08-06] MEDS: ASPIRIN 81 MG ENTERIC TAB PO SCH (09:36)
[2018-08-06] MEDS: GABAPENTIN 400 MG CAP PO SCH (09:36)
[2018-08-06] MEDS: AZITHROMYCIN 250 MG TAB PO SCH (09:36)
[2018-08-06] MEDS: DULoxetine 30 MG CAP (CYMBALTA) PO SCH (09:36)
[2018-08-06] MEDS: BISOPROLOL FUMARATE 5 MG TAB PO SCH (09:37)
[2018-08-06] MEDS: SENOKOT S TAB PO SCH (09:37)
[2018-08-06] MEDS: PANTOPRAZOLE 40MG TAB (PROTONIX) PO SCH (09:38)
[2018-08-06] MEDS: FLUTICASONE PROP 0.05% NASAL SPRAY 16 GM (FLONASE) SCH (09:38)
[2018-08-06] MEDS: POLYVINYL ALCOHOL OPHTH SOLN 15 ML(LIQUITEARS) OU SCH (09:38)
[2018-08-06] MEDS: SERTRALINE 100 MG TAB PO SCH (09:38)
[2018-08-06] MEDS: NYSTATIN 100,000 UNITS/GM TOPICAL PWD 15 GM TOP SCH (09:39)
[2018-08-06] MEDS: HumaLOG INSULIN (NovoLOG) PER UNIT SC SCH (09:41)
[2018-08-06] MEDS: predniSONE 50 MG TAB PO SCH (09:42)
[2018-08-06] MEDS ORDERED: PRED10TA2 PO (11:18)
[2018-08-06] MEDS ORDERED: AZIT-12 PO (11:18)
[2018-08-06] MEDS ORDERED: NYST50SS SS (11:20)
--- NOTE | 2018-08-06 20:44 | DSES ---
DATE OF ADMISSION: 08/01/2018 DATE OF DISCHARGE: 08/06/2018 PRIMARY CARE PROVIDER: Natalie Antony TREATER HELPER: Dr. Pacheco FINAL DIAGNOSES: 1. Acute on chronic hypoxic hypercarbic respiratory failure secondary to acute chronic obstructive pulmonary disease (COPD) exacerbation. Patient is poorly compliant with medications, active smoker and smokes intermittently. 2. Possible viral bronchitis versus atypical pneumonia. 3. Chest pain. 4. History of diabetes. 5. Hypothyroidism. 6. Depression. 7. Dyslipidemia. HISTORY OF PRESENT ILLNESS: This is a 62-year-old female patient with underlying medical history of myocardial infarction, coronary arterial disease, hypertension, type 2 diabetes, chronic hypoxic hypercarbic respiratory failure secondary to COPD, smoking, obstructive sleep apnea on continuous positive airway pressure (CPAP), presented to the hospital with complaints of shortness of breath and cough for the past 4 days. Reported that over the past 4 days the patient has been feeling unwell with cough with productive yellow sputum, subjective fever, difficulty to catch breath. HOSPITAL COURSE: The patient was admitted to the hospital. Sputum culture appreciated. Respiratory panel negative. Blood culture has been negative. C-reactive protein has been appreciated. X-ray was appreciated. Serial cardiac enzymes negative. CT angio is negative for pulmonary embolus. The patient initially started on azithromycin and Rocephin. Given C-reactive protein has been negative, Rocephin has been discontinued. Azithromycin was continued for antiinflammatory. Steroids were tapered. Nebulizer treatment and inhaler provided. The patient currently reported improved respirations, passed physical therapy (PT) and almost back to baseline and ready to be discharged for further care as an outpatient. VITAL SIGNS: Temperature 96.5, pulse 74, respirations 20, blood pressure 173/80, pulse oximetry 95% on 2 liters nasal cannula. LABORATORY DATA: WBC 10.8, hemoglobin and hematocrit 14.3/45.7, platelets 359. Chemistry: Sodium 139, potassium 3.8, chloride 98, bicarbonate 36, BUN 17, creatinine 0.58, C-reactive protein less than 0.7. PHYSICAL EXAMINATION: GENERAL: The patient is alert, comfortable and in no acute distress. HEENT: Normocephalic, atraumatic. PULMONARY: Diminished breath sounds in bilateral bases. Minimal wheeze. CARDIAC: Regular. S1, S2. ABDOMEN: Soft, nontender. Positive bowel sounds. EXTREMITIES: No edema in bilateral lower extremities. DISCHARGE MEDICATIONS: - azithromycin 500 mg by mouth daily for 3 more days - nystatin 5 mL swish and spit three times a day for oral candidiasis for 7 days - prednisone taper 10 mg tablet to take three tablets by mouth daily for 3 days, then two tablets by mouth daily for 3 days, then one tablet by mouth daily for 3 days and then resume home dose of prednisone - Ventolin inhaler every 4 hours as needed - DuoNeb inhalation four times a day as needed - aspirin 81 mg by mouth daily - Lipitor 40 mg by mouth at night - bisoprolol 2.5 mg by mouth daily - duloxetine 60 mg by mouth daily - Flonase nasal spray daily - gabapentin 800 mg by mouth three times a day - hydrocodone/acetaminophen three times a day as needed for pain - hydroxyzine 25 mg by mouth three times a day as needed for anxiety - levothyroxine 25 mcg by mouth daily - metformin 1000 mg by mouth three times a day - Protonix 40 mg by mouth daily - Advair inhalation 230/21 mcg inhalation twice a day - sertraline 100 mg by mouth daily - Carafate 1 gram by mouth with meals - Spiriva inhalation daily - vitamin D 50,000 units by mouth weekly DISCHARGE INSTRUCTIONS: Please followup with Dr. Antony, has an appointment on 08/13/2018. Please see stock saw operator in 14 days. Smoking cessation. Return to the hospital if symptoms worsen.
== END 2018-08-06 12:00 | disposition home health service (06) | DRG 189 ==
LOC: EDBD 11:41 → M ED 11:41 → M ED INP 17:27 → M MS4PR 08-02 04:23 → M MS5PR 08-02 14:00
PROVIDERS: ADMIT Internal Medicine; ATTEND Hospitalist
DX: J96.21 Acute and chronic respiratory failure with hypoxia (principal); J18.9 Pneumonia, unspecified organism; J44.1 Chronic obstructive pulmonary disease with (acute) exacerbation; J44.0 Chronic obstructive pulmonary disease with (acute) lower respiratory infection; J96.22 Acute and chronic respiratory failure with hypercapnia; I25.2 Old myocardial infarction; I25.10 Atherosclerotic heart disease of native coronary artery without angina pectoris; I10 Essential (primary) hypertension; K59.00 Constipation, unspecified; E03.9 Hypothyroidism, unspecified; J20.8 Acute bronchitis due to other specified organisms; E11.9 Type 2 diabetes mellitus without complications; G47.33 Obstructive sleep apnea (adult) (pediatric); Z90.49 Acquired absence of other specified parts of digestive tract; Z79.84 Long term (current) use of oral hypoglycemic drugs; Z79.52 Long term (current) use of systemic steroids; Z79.82 Long term (current) use of aspirin; Z79.899 Other long term (current) drug therapy; Z87.891 Personal history of nicotine dependence

== ENCOUNTER 2018-08-22 06:33 | Inpatient (IN) | payer MEDICARE, MEDICAID ==
[~2018-08-22] VITALS: Ht 162.6 cm; Wt 96.5 kg
[~2018-08-22 06:33] MED LIST changes: -/DULO30CA OR; -/LAMO10TA OR; -/TIOT18INH INH; +CYMB1CAP5 OR; +DRIS50003 PO; -DULO30CA PO; +DULO30CA9 PO; +HYDR-3715 PO; +HYDR-4514 PO; +HYDR1CAP25 PO; +LAMI1TAB7 OR; +LAMO100T80 PO; -LAMO10TA PO; +LEVO25TA34 PO; +LISI-1046 PO; -LISI2.5T5 PO; +LISI2.5T7 PO; -LISI25TA PO; -NORCOTAB PO; +NYST50SS SS; +PRED-351 PO; -PRED10TA PO; +SERT-141 PO; -SERT25TA PO; +SERT25TA85 PO; -SERT50TA PO; +SUCR1TAB56 PO; +VENTAER INH; -predniSONE 20 MG TAB PO SCH
[2018-08-22] MEDS ORDERED: IPRATROPIUM 0.5MG/ALBUTEROL 2.5MG INH SOL UD 3ML (DUONEB)(J7620) NEB PRN ×2 (06:45→10:30)
[2018-08-22 06:50] LABS: ABG BASE EXCESS -2.7 (-2.0-2.0); ABG HCO3 28.6 MEQ/L (22.0-26.0); ABG O2 SATURATION 98.6 % (95.0-99.0); ABG PARTIAL PRESSURE O2 316.4 mmHg (75.0-100.0); ABG STANDARD HCO3 22.3 MEQ/L (22.0-26.0); ABG TOTAL CO2 31.2 MEQ/L (23.0-31.0)
[2018-08-22 07:08] LABS: BASO # 0.1 10^3/uL (0.0-0.2); BASO % 0.5 % (0.0-1.0); EOS # 0.2 10^3/uL (0.0-0.50); EOS % 1.3 % (0.0-3.0); HEMATOCRIT 47.7 % (36.0-47.0); LYMPH % 24.7 % (24.0-44.0); MEAN CORPUSCULAR HGB CONC 31.4 g/dl (32.0-36.5); MEAN CORPUSCULAR VOLUME 98.6 fl (80.0-96.0); MONO # 0.7 10^3/uL (0.0-0.8); MONO % 5.9 % (0.0-5.0); NEUTROPHILS # 8.2 10^3/uL (1.8-7.7); NEUTROPHILS % 66.6 % (36.0-66.0); PLATELET COUNT, AUTOMATED 299 10^3/uL (150-450); RED BLOOD COUNT 4.84 10^6/uL (4.00-5.40); WHITE BLOOD COUNT 12.3 10^3/uL (4.0-10.0)
[2018-08-22 07:31] LABS: INFLUENZA A AMPLIFICATION NEGATIVE (NEGATIVE); INFLUENZA B AMPLIFICATION NEGATIVE (NEGATIVE)
[2018-08-22 07:39] LABS: BLOOD UREA NITROGEN 15 MG/DL (7-18); CALCIUM LEVEL 8.3 MG/DL (8.8-10.2); CARBON DIOXIDE LEVEL 31 MEQ/L (21-32); CHLORIDE LEVEL 102 MEQ/L (98-107); CPK CREATINE PHOSPHOKINASE 77 U/L (26-192); CREATININE FOR GFR 0.61 MG/DL (0.55-1.30); GLOMERULAR FILTRATION RATE > 60.0 (>45); GLUCOSE, FASTING 283 MG/DL (70-100); MB/CK RELATIVE INDEX 3.38 (< OR =4); NT-PRO BNP 82 PG/ML (<125); POTASSIUM SERUM 3.9 MEQ/L (3.5-5.1); SODIUM LEVEL 140 MEQ/L (136-145); TROPONIN I < 0.02 NG/ML (< 0.10)
[2018-08-22] MEDS ORDERED: LORazepam 2 MG/ML VIAL (J2060) IV STA (07:50)
[2018-08-22] MEDS ORDERED: NS 1,000 ML IV ONE (08:00)
[2018-08-22] MEDS ORDERED: ACETAMINOPHEN TAB 650MG DOSE (2X325MG) PO ONE (08:00)
[2018-08-22 08:08] LABS: ABG HCO3 30.6 MEQ/L (22.0-26.0); ABG O2 SATURATION 95.1 % (95.0-99.0); ABG PARTIAL PRESSURE O2 83.3 mmHg (75.0-100.0); ABG STANDARD HCO3 26.2 MEQ/L (22.0-26.0); ABG TOTAL CO2 32.6 MEQ/L (23.0-31.0); ABG pH (ARTERIAL) 7.285 UNITS (7.350-7.450)
[2018-08-22 08:11] LABS: ABG PARTIAL PRESSURE CO2 65.9 mmHg (35.0-45.0)
[2018-08-22] MEDS ORDERED: ISOVUE-370 76% 125ML VIAL (Q9967 PER ML) As Ordered ONE (08:14)
--- NOTE | 2018-08-22 08:44 | REP ---
Clinical: Acute chest pain. Comparison: 05/26/2018, 04/28/2016 Technique: Axial contrast enhanced images from the thoracic inlet to the upper abdomen using 100 ml Isovue 370 intravenous contrast material with coronal and sagittal re-formations. Findings: Satisfactory enhancement of the pulmonary vasculature is achieved and no filling defects are identified to suggest pulmonary embolus. Lung cherry demonstrate very minimal atelectasis in the periphery of the right lower lobe. Stable chronic emphysematous changes and scattered scarring along with mild bronchiectasis and few stable nodules are again identified and essentially unchanged when compared through 01/12/2016. Thoracic aorta is normal caliber without aneurysm or dissection. Heart and pericardium are normal. No pleural effusion/reaction. No pneumothorax. No adenopathy. Impression: No evidence for pulmonary embolus. Trace right basilar atelectasis. Chronic stable changes including scattered nodules up to 9 mm stable compared to 2015. Electronically Signed by Michael Vasques MD 08/22/2018 08:35 A
--- NOTE | 2018-08-22 08:50 | REP ---
Clinical: Cough and dyspnea . Comparison: 08/01/2018 . Findings: The mediastinum and cardiac silhouette are stable and within normal limits for portable technique. The lung cherry the straight mild chronic changes without acute consolidation, effusion, or pneumothorax. Skeletal structures are intact. Impression: No acute cardiopulmonary process appreciated. Electronically Signed by Michael Vasques MD 08/22/2018 08:42 A
[2018-08-22] MEDS ORDERED: NYST50SS SS (09:00)
[2018-08-22] MEDS ORDERED: PRED5TA PO (09:00)
[2018-08-22] MEDS ORDERED: ONDANSETRON 4MG/2ML VIAL (J2405) IV PRN (10:30)
[2018-08-22] MEDS ORDERED: DEXTROSE 50% 50 ML SYRINGE IV PRN (10:30)
[2018-08-22] MEDS ORDERED: BISACODYL 5 MG TAB PO PRN (10:30)
[2018-08-22] MEDS ORDERED: GLUCOSE 4 GM CHEW TABLET PO PRN (10:30)
[2018-08-22] MEDS ORDERED: GLUCAGON FOR INJ 1 MG VIAL (J1610) SC PRN (10:30)
[2018-08-22] MEDS: LEVEMIR (INSULIN DETEMIR) 1 UNITS/0.01ML SC SCH (11:28)
[2018-08-22] MEDS: GABAPENTIN 400 MG CAP PO SCH ×3 (11:29→20:10)
[2018-08-22] MEDS: ASPIRIN 81 MG ENTERIC TAB PO SCH (11:29)
[2018-08-22] MEDS: SENOKOT S TAB PO SCH ×2 (11:29→20:12)
[2018-08-22] MEDS: PANTOPRAZOLE 40MG TAB (PROTONIX) PO SCH (11:29)
[2018-08-22] MEDS: DULoxetine 30 MG CAP (CYMBALTA) PO SCH (11:30)
[2018-08-22] MEDS: BISOPROLOL FUM 2.5 MG PER 1/2TAB PO SCH (11:30)
[2018-08-22] MEDS: predniSONE 5 MG TAB PO SCH (11:30)
[2018-08-22] MEDS: ENOXAPARIN 40 MG/0.4 ML SYRINGE (J1650) SC SCH (11:31)
[2018-08-22] MEDS: ADVAIR HFA 230/21MCG INHALER INH SCH ×2 (11:44→20:36)
[2018-08-22] MEDS: TIOTROPIUM INHALER/CAPSULE (SPIRIVA) INH SCH (11:44)
[2018-08-22 12:08] LABS: ABG BASE EXCESS 3.5 (-2.0-2.0); ABG O2 SATURATION 92.5 % (95.0-99.0); ABG PARTIAL PRESSURE O2 70.5 mmHg (75.0-100.0); ABG STANDARD HCO3 27.5 MEQ/L (22.0-26.0); ABG TOTAL CO2 32.9 MEQ/L (23.0-31.0); ABG pH (ARTERIAL) 7.329 UNITS (7.350-7.450)
[2018-08-22 12:10] LABS: ABG PARTIAL PRESSURE CO2 60.3 mmHg (35.0-45.0)
[2018-08-22 12:27] VITALS: BP 140/70
--- NOTE | 2018-08-22 12:30 | ECGEPIP ---
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
[2018-08-22] MEDS: ALBUTEROL SULFATE 2.5 MG/0.5 ML INH NEB SOLN NEB SCH ×2 (13:45→20:00)
[2018-08-22] MEDS: HumaLOG INSULIN (NovoLOG) PER UNIT SC SCH ×2 (13:53→18:03)
[2018-08-22 14:00] VITALS: BP 139/67
[2018-08-22] MEDS ORDERED: KETOROLAC 30 MG/ML VIAL (J1885) As Ordered ONE (14:47)
[2018-08-22] MEDS ORDERED: KETOROLAC 30 MG/ML VIAL (J1885) IV ONE (15:00)
[2018-08-22 16:00] VITALS: BP 142/68
[2018-08-22 18:00] VITALS: BP 132/85
[2018-08-22 20:00] VITALS: BP 126/69
[2018-08-22 20:37] VITALS: O2SAT 93
[2018-08-22] MEDS ORDERED: ATORVASTATIN 20 MG TAB PO SCH (21:00)
[2018-08-22] MEDS ORDERED: HumaLOG INSULIN (NovoLOG) PER UNIT SC SCH (21:00)
[2018-08-22] MEDS ORDERED: ACETAMINOPHEN TAB 650MG DOSE (2X325MG) PO PRN (21:00)
[2018-08-22] MEDS ORDERED: hydrOXYzine 25 MG TAB PO PRN (22:45)
--- NOTE | 2018-08-22 22:46 | HPEPDOC ---
General Date of Admission Aug 22, 2018 at 10:23 Attending Physician: OLIVIA PORTER MD Chief Complaint The patient is a 62-year-old female admitted with a reason for visit of Acute Respiratry Failure W/ Hypoxia & Hypercarbia. Source: Patient, RN/, Old records Exam Limitations: No limitations History of Present Illness 62 year old female with COPD, chronic respiratory failure with hypoxia and hypercarbia, SUYAPA, Bipolar disorder, anxiety, diabetes, Hypertension, Hypothyroid, CAD, obesity presented to the ED for acute onset SOB. She was fine yesterday then woke up this morning with respiratory distress. She called the EMS and EMS found her to be gasping for breath, tripoding sitting in her couch, very anxious, hypoxic with her oxygen canula on . It was then discovered that the oxygen connection had come off the oxygen concentrator. She was brought to the ED. In the Ed she was found to have acute on chronic respiratory failure with hypoxia and Hypercarbia. Abg Showed a pH of 7.15 PCO2 of 84. She refused BIPAP so she was put on Vapotherm . Repeat ABG after an hour showed much improvement with pH of 7.28/pco2 of 65. however she was still very anxious and complaining of SOB so was placed for admission. Home Medications Scheduled Aspirin (Aspirin EC) 81 Mg Tabec, 81 MG PO DAILY, (Reported) Atorvastatin Calcium (Lipitor) 80 Mg Tab, 80 MG PO QHS, (Reported) Bisoprolol Fumarate (Bisoprolol Fumarate) 5 Mg Tab, 2.5 MG PO DAILY, (Reported) Duloxetine Hcl (Duloxetine HCl) 60 Mg Cap, 60 MG PO DAILY, (Reported) Fluticasone Propionate (Flonase Allergy Relief) 50 Mcg/Act Spr, 1 SPRAY NA DAILY, (Reported) Gabapentin (Gabapentin) 800 Mg Tab, 800 MG PO TID, (Reported) Levothyroxine Sodium (Levoxyl) 25 Mcg Tab, 25 MCG PO DAILY, (Reported) Metformin Hydrochloride (Metformin HCl) 1,000 Mg Tab, 1,000 MG PO BID, (Reported) Nystatin (Nystatin Oral Susp) 5 Ml Susp, 5 ML SS TID, (Reported) Pantoprazole Sodium (Pantoprazole Sodium) 40 Mg Tab, 40 MG PO DAILY, (Reported) Prednisone (Prednisone) 5 Mg Tab, 5 MG PO DAILY, (Reported) Salmeterol/Fluticasone (Advair Hfa 230-21 Mcg/Act) 1 Aer Aer, 2 PUFF INH BID, (Reported) Sucralfate (Sucralfate) 1 Gm Tab, 1 GM PO AC, (Reported) Tiotropium [place] Monohydrate (Spiriva Handihaler) 18 Mcg Cap, 1 CAP INH DAILY, (Reported) Vitamin D (Drisdol) 50,000 Unit Cap, 50,000 UNIT PO 1XWK, (Reported) FRIDAYS Scheduled PRN (Hydrocodone Bitartrate/AC 7.5-325 mg) 1 Tab Tab, 1 TAB PO TID PRN for PAIN, (Reported) Albuterol Sulfate (Ventolin Hfa) 108 Mcg/Act Aer, 2 PUFFS INH Q4H PRN for SHORTNESS OF BREATH, (Reported) Albuterol/Ipratropium (Ipratropium [place]/Albut 0.5-2.5 (3) mg/3Ml) 1 Juanita Juanita, 1 JUANITA INH QID PRN for SOB/WHEEZING, (Reported) Hydroxyzine Pamoate (Hydroxyzine Pamoate) 25 Mg Cap, 25 MG PO TID PRN for ANXIETY, (Reported) Allergies Coded Allergies: No Known Allergies (Unverified , 08/22/18) Past Medical History Medical History Chronic obstructive pulmonary disease (COPD) Chronic respiratory failure with hypoxia and hypercarbia SUYAPA does not use CPAP Nonobstructive Coronary artery disease with history of NSTEMI 2012 Degenerative disc disease with chronic musculoskeletal pain and muscle spasm. Chronic low back pain on narcotics Sacroilliac joint pain and myofascial pain. Fibromyalgia. Osteoarthritis Gastroesophageal reflux disease (GERD). Hypertension. Hyperlipidemia Diabetes Obesity Hypothyroidism. Adrenal nodule on the right, seems to be adrenal adenoma. Lung nodule Major depressive disorder without any psychotic features. Bipolar, anxiety disorder, adjustment disorder Canabis use disorder. Surgical History Cholecystectomy. Cardiac catheterization without stent. History of breast biopsy. Dilation and curettage. Tubal ligation. Tonsillectomy. Exploratory laparotomy. 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 Dyspnea Gastrointestinal: Denies: Nausea, Vomiting, Abdominal Pain, Diarrhea, Constipation Genitourinary: Denies: Dysuria, Frequency, Incontinence, Hematuria Musculoskeletal: Reports: Back Pain, Shoulder Pain Neurological: Denies: Weakness, Numbness, Incoordination, Change in speech, Confusion Psych: Reports: Anxiety, Depression Physical Examination General Exam: Positive: Alert, Cooperative, Mild Distress Eye Exam: Positive: PERRLA, Conjunctiva & lids normal ENT Exam: Positive: Atraumatic, Mucous membr. moist/pink, Tongue Midline Neck Exam: Positive: Supple Chest Exam: Positive: Rhonchi, Wheezing, Diminished Heart Exam: Positive: Rate Normal, Regular Rhythm, Normal S1, Normal S2; Negative: Tachycardic, Bradycardic, Irregular Rhythm, Gallops, Murmurs, Rubs, Other Telemetry: Positive: Sinus Abdomen Exam: Positive: Normal bowel sounds, Soft; Negative: BS Hyperactive, BS Hypoactive, Tenderness, Hepatospenomegaly Extremity Exam: Positive: Normal pulses; Negative: Clubbing, Cyanosis, Edema Neuro Exam: Positive: Normal Speech, Strength at 5/5 X4 ext, Normal Tone Psych Exam: Positive: Anxiety, Oriented x 3 Vital Signs Vital Signs Date Time Temp Pulse Resp B/P (MAP) Pulse Ox O2 Delivery O2 Flow Rate FiO2 08/22/18 20:37 93 Nasal Cannula 25.0 30 08/22/18 20:00 97.2 72 22 126/69 (88) Laboratory Data Labs 24H Laboratory Tests 2 08/22/18 06:45: Blood Gas Bicarbonate Standard 22.3, Arterial Blood pH 7.150*L, Arterial Blood Partial Pressure CO2 84.0*H, Arterial Blood Partial Pressure O2 316.4H, Arterial Blood Total CO2 31.2H, Arterial Blood HCO3 28.6H, Arterial Blood Base Excess - 2.7L, Arterial Blood Oxygen Saturation 98.6 08/22/18 06:48: Immature Granulocyte % (Auto) 1.0, White Blood Count 12.3H, Red Blood Count 4.84, Hemoglobin 15.0, Hematocrit 47.7H, Mean Corpuscular Volume 98.6H, Mean Corpuscular Hemoglobin 31.0, Mean Corpuscular Hemoglobin Concent 31.4L, Red Cell Distribution Width 13.2, Platelet Count 299, Neutrophils (%) (Auto) 66.6H, Lymphocytes (%) (Auto) 24.7, Monocytes (%) (Auto) 5.9H, Eosinophils (%) (Auto) 1.3, Basophils (%) (Auto) 0.5, Neutrophils # (Auto) 8.2H, Lymphocytes # (Auto) 3.0, Monocytes # (Auto) 0.7, Eosinophils # (Auto) 0.2, Basophils # (Auto) 0.1, Nucleated Red Blood Cells % (auto) 0.0, Anion Gap 7L, Glomerular Filtration Rate > 60.0, Lactic Acid Level 2.5*H, Blood Urea Nitrogen 15, Creatinine 0.61, Sodium Level 140, Potassium Level 3.9, Chloride Level 102, Carbon Dioxide Level 31, Calcium Level 8.3L, Total Creatine Kinase 77, Creatine Kinase MB 3.0, Creatine Kinase MB Relative Index 3.38, Troponin I < 0.02, [id number]-Type Natriuretic Peptide 82, Influenza Type A (RT-PCR) NEGATIVE, Influenza Type B (RT-PCR) NEGATIVE 08/22/18 08:00: Blood Gas Bicarbonate Standard 26.2H, Arterial Blood pH 7.285L, Arterial Blood Partial Pressure CO2 65.9*H, Arterial Blood Partial Pressure O2 83.3, Arterial Blood Total CO2 32.6H, Arterial Blood HCO3 30.6H, Arterial Blood Base Excess 2.0, Arterial Blood Oxygen Saturation 95.1 08/22/18 11:04: Lactic Acid Followup at 4 Hours 1.1 08/22/18 11:28: Bedside Glucose (Misc Panel) 158H 08/22/18 12:02: Blood Gas Bicarbonate Standard 27.5H, Arterial Blood pH 7.329L, Arterial Blood Partial Pressure CO2 60.3*H, Arterial Blood Partial Pressure O2 70.5L, Arterial Blood Total CO2 32.9H, Arterial Blood HCO3 31.0H, Arterial Blood Base Excess 3.5H, Arterial Blood Oxygen Saturation 92.5L 08/22/18 13:45: Bedside Glucose (Misc Panel) 228H 08/22/18 16:40: Bedside Glucose (Misc Panel) 201H 08/22/18 20:50: Bedside Glucose (Misc Panel) 157H CBC/BMP Laboratory Tests 08/22/18 06:48 Red Blood Count 4.84, Mean Corpuscular Volume 98.6 H, Mean Corpuscular Hemoglobin 31.0, Mean Corpuscular Hemoglobin Concent 31.4 L, Red Cell Distribution Width 13.2, Neutrophils (%) (Auto) 66.6 H, Lymphocytes (%) (Auto) 24.7, Monocytes (%) (Auto) 5.9 H, Eosinophils (%) (Auto) 1.3, Basophils (%) (Auto) 0.5, Neutrophils # (Auto) 8.2 H, Lymphocytes # (Auto) 3.0, Monocytes # (Auto) 0.7, Eosinophils # (Auto) 0.2, Basophils # (Auto) 0.1, Calcium Level 8.3 L, Total Creatine Kinase 77 Microbiology Microbiology 08/22/18 Blood Culture, Received Pending 08/22/18 Blood Culture, Received Pending Assessment/Plan 62 year old female with COPD steroid and oxygen dependent, chronic respiratory failure with hypoxia and hypercarbia, SUYAPA, Bipolar disorder, anxiety, diabetes, Hypertension, Hypothyroid, CAD, obesity presented to the ED for acute onset SOB. She was fine yesterday then woke up this morning with respiratory distress. She called the EMS and EMS found her to be gasping for breath, tripoding sitting in her couch, very anxious, hypoxic with her oxygen canula on . It was then discovered that the oxygen connection had come off the oxygen concentrator. She was brought to the ED. In the Ed she was found to have acute on chronic respiratory failure with hypoxia and Hypercarbia. Abg Showed a pH of 7.15 PCO2 of 84. She refused BIPAP so she was put on Vapotherm . Repeat ABG after an hour showed much improvement with pH of 7.28/pco2 of 65. however she was still very anxious and complaining of SOB so was placed for admission. Acute on Chronic respiratory failure with hypercarbia and hypoxia due to COPD exacerbation due to not being on oxygen overnight Continue vapotherm continue albuterol, spiriva, advair, chronic home dose of steroid SUYAPA does not use CPAP continue oxygen supplementation Nonobstructive Coronary artery disease with history of NSTEMI 2012 continue bisoprolol, statin, asa Degenerative disc disease /Chronic low back pain /Sacroiliac joint pain and myofascial pain/ osteoarthritis will give toradol prn, hold narcotics till abg improves to baseline. can give tylenol prn. Fibromyalgia. continue cymbalta, gabapentin Gastroesophageal reflux disease (GERD). continue PPI Hypertension. continue bisoprolol Hyperlipidemia continue statin Diabetes will give lispro and levemir in hospital will resume metformin on sidcharge Obesity complicating care Hypothyroidism. continue Synthroid Major depressive disorder without any psychotic features /Bipolar/anxiety disorder/adjustment disorder hydoxyzine prn DVT prophylaxis ordered. Plan / VTE VTE Prophylaxis Ordered?: Yes OLIVIA PORTER MD Aug 22, 2018 22:45
[2018-08-23] VITALS: BP 114/58
[2018-08-23] MEDS: ALBUTEROL SULFATE 2.5 MG/0.5 ML INH NEB SOLN NEB SCH ×2 (00:07→07:55)
[2018-08-23 00:08] VITALS: O2SAT 94
[2018-08-23 04:00] VITALS: BP 117/55
[2018-08-23 04:57] LABS: BASO % 0.5 % (0.0-1.0); EOS # 0.2 10^3/uL (0.0-0.50); HEMATOCRIT 39.7 % (36.0-47.0); LYMPH # 2.4 10^3/uL (1.5-4.5); MEAN CORPUSCULAR HEMOGLOBIN 30.8 pg (27.0-33.0); MEAN CORPUSCULAR HGB CONC 31.5 g/dl (32.0-36.5); MEAN CORPUSCULAR VOLUME 97.8 fl (80.0-96.0); MONO # 0.8 10^3/uL (0.0-0.8); MONO % 9.9 % (0.0-5.0); NEUTROPHILS # 4.5 10^3/uL (1.8-7.7); NEUTROPHILS % 57.3 % (36.0-66.0); PLATELET COUNT, AUTOMATED 252 10^3/uL (150-450); RED BLOOD COUNT 4.06 10^6/uL (4.00-5.40); WHITE BLOOD COUNT 7.9 10^3/uL (4.0-10.0)
[2018-08-23 05:02] LABS: HEMOGLOBIN 12.5 g/dl (12.0-15.5)
[2018-08-23 05:18] LABS: BLOOD UREA NITROGEN 12 MG/DL (7-18); CARBON DIOXIDE LEVEL 34 MEQ/L (21-32); CHLORIDE LEVEL 102 MEQ/L (98-107); CREATININE FOR GFR 0.55 MG/DL (0.55-1.30); GLOMERULAR FILTRATION RATE > 60.0 (>45); GLUCOSE, FASTING 155 MG/DL (70-100); SODIUM LEVEL 140 MEQ/L (136-145)
[2018-08-23] MEDS ORDERED: traMADol 50 MG TAB PO ONE (05:30)
[2018-08-23] MEDS ORDERED: LEVOTHYROXINE 25MCG TABLET (0.025MG) PO SCH (06:00)
[2018-08-23 07:47] VITALS: BP 145/96
[2018-08-23] MEDS: ADVAIR HFA 230/21MCG INHALER INH SCH (07:55)
[2018-08-23] MEDS: TIOTROPIUM INHALER/CAPSULE (SPIRIVA) INH SCH (07:55)
[2018-08-23] MEDS: HumaLOG INSULIN (NovoLOG) PER UNIT SC SCH (08:41)
[2018-08-23 08:42] VITALS: BP 145/96
[2018-08-23] MEDS: LEVEMIR (INSULIN DETEMIR) 1 UNITS/0.01ML SC SCH (08:42)
[2018-08-23] MEDS: ASPIRIN 81 MG ENTERIC TAB PO SCH (08:42)
[2018-08-23] MEDS: PANTOPRAZOLE 40MG TAB (PROTONIX) PO SCH (08:42)
[2018-08-23] MEDS: BISOPROLOL FUM 2.5 MG PER 1/2TAB PO SCH (08:42)
[2018-08-23] MEDS: GABAPENTIN 400 MG CAP PO SCH (08:42)
[2018-08-23] MEDS: predniSONE 5 MG TAB PO SCH (08:42)
[2018-08-23] MEDS: DULoxetine 30 MG CAP (CYMBALTA) PO SCH (08:42)
[2018-08-23] MEDS: ENOXAPARIN 40 MG/0.4 ML SYRINGE (J1650) SC SCH (08:43)
[2018-08-23] MEDS: SENOKOT S TAB PO SCH (08:44)
[2018-08-23] MEDS ORDERED: ANEXSIA, NORCO 7.5MG/325MG TABLET(HYDROCODONE/APAP) PO PRN (10:30)
[2018-08-23 11:21] LABS: ABG BASE EXCESS 4.7 (-2.0-2.0); ABG HCO3 31.5 MEQ/L (22.0-26.0); ABG O2 SATURATION 92.5 % (95.0-99.0); ABG PARTIAL PRESSURE CO2 56.9 mmHg (35.0-45.0); ABG PARTIAL PRESSURE O2 68.3 mmHg (75.0-100.0); ABG STANDARD HCO3 28.5 MEQ/L (22.0-26.0); ABG TOTAL CO2 33.2 MEQ/L (23.0-31.0); ABG pH (ARTERIAL) 7.361 UNITS (7.350-7.450)
--- NOTE | 2018-08-26 16:54 | DS.PDOC ---
Discharge Summary General Date of Admission Aug 22, 2018 at 10:23 Date of Discharge 08/23/18 Attending Physician: OLIVIA PORTER MD Discharge Summary PROCEDURES PERFORMED DURING STAY: [None]. DISCHARGE DIAGNOSES: Acute on Chronic respiratory failure with hypoxia and hypercarbia Chronic obstructive pulmonary disease (COPD) exacerbation SUYAPA does not use CPAP Nonobstructive Coronary artery disease with history of NSTEMI 2012 Degenerative disc disease with chronic musculoskeletal pain and muscle spasm. Chronic low back pain on narcotics Sacroilliac joint pain and myofascial pain. Fibromyalgia. Osteoarthritis Gastroesophageal reflux disease (GERD). Hypertension. Hyperlipidemia Diabetes Obesity Hypothyroidism. Adrenal nodule on the right, seems to be adrenal adenoma. Lung nodule Major depressive disorder without any psychotic features. Bipolar, anxiety disorder, adjustment disorder History of Cannabis use disorder. COMPLICATIONS/CHIEF COMPLAINT: Acute Respiratry Failure W/ Hypoxia & Hypercarbia. HISTORY OF PRESENT ILLNESS: See History and physical HOSPITAL COURSE: 62 year old female with COPD steroid and oxygen dependent, chronic respiratory failure with hypoxia and hypercarbia, SUYAPA, Bipolar disorder, anxiety, diabetes, Hypertension, Hypothyroid, CAD, obesity presented to the ED for acute onset SOB. She was fine yesterday then woke up this morning with respiratory distress. She called the EMS and EMS found her to be gasping for breath, tripoding sitting in her couch, very anxious, hypoxic with her oxygen canula on . It was then discovered that the oxygen connection had come off the oxygen concentrator. She was brought to the ED. In the Ed she was found to have acute on chronic respiratory failure with hypoxia and Hypercarbia. Abg Showed a pH of 7.15 PCO2 of 84. She refused BIPAP so she was put on Vapotherm . Repeat ABG after an hour showed much improvement with pH of 7.28/pco2 of 65. however she was still very anxious and complaining of SOB so was placed for admission. Acute on Chronic respiratory failure with hypercarbia and hypoxia due to COPD exacerbation due to not being on oxygen overnight Weaned off vapotherm now on her regular home oxygen. ABG this am after 3 houss after taking off vapotherm was at baseline. continue albuterol, spiriva, advair, chronic home dose of steroid SUYAPA does not use CPAP due to cluastrophobia continue oxygen supplementation Nonobstructive Coronary artery disease with history of NSTEMI 2012 continue bisoprolol, statin, asa Degenerative disc disease /Chronic low back pain /Sacroiliac joint pain and myofascial pain/ osteoarthritis will give toradol prn, hold narcotics till abg improves to baseline. can give tylenol prn. Fibromyalgia. continue cymbalta, gabapentin Gastroesophageal reflux disease (GERD). continue PPI Hypertension. continue bisoprolol Hyperlipidemia continue statin Diabetes will give lispro and levemir in hospital will resume metformin on discharge Obesity complicating care Hypothyroidism. continue Synthroid Major depressive disorder without any psychotic features /Bipolar/anxiety disorder/adjustment disorder hydoxyzine prn DISCHARGE MEDICATIONS: Please see below. ALLERGIES: Please see below. PHYSICAL EXAMINATION ON DISCHARGE: VITAL SIGNS: Please see below. General Exam: Positive: Alert, Cooperative, Mild Distress Eye Exam: Positive: PERRLA, Conjunctiva & lids normal ENT Exam: Positive: Atraumatic, Mucous membrane. moist/pink, Tongue Midline Neck Exam: Positive: Supple Chest Exam: Positive: Rhonchi, Wheezing, Diminished Heart Exam: Positive: Rate Normal, Regular Rhythm, Normal S1, Normal S2; Negative: Tachycardic, Bradycardic, Irregular Rhythm, Gallops, Murmurs, Rubs, Other Telemetry: Positive: Sinus Abdomen Exam: Positive: Normal bowel sounds, Soft; Negative: BS Hyperactive, BS Hypoactive, Tenderness, Hepatospenomegaly Extremity Exam: Positive: Normal pulses; Negative: Clubbing, Cyanosis, Edema Neuro Exam: Positive: Normal Speech, Strength at 5/5 X4 ext, Normal Tone Psych Exam: Positive: Anxiety, Oriented x 3 LABORATORY DATA: Please see below. ACTIVITY: [As tolerated]. DIET: as tolerated DISPOSITION: 06 Home Health Service. DISCHARGE INSTRUCTIONS: Follow up PMD in 1 week Follow up Blood cultures DISCHARGE CONDITION: [Stable]. TIME SPENT ON DISCHARGE: Greater than 30 minutes. Vital Signs/I&Os Vital Signs Date Time Temp Pulse Resp B/P (MAP) Pulse Ox O2 Delivery O2 Flow Rate FiO2 08/23/18 08:42 73 145/96 08/23/18 07:47 97.0 24 93 4.0 08/23/18 07:45 30 08/23/18 00:08 Nasal Cannula Laboratory Data CBC/BMP Item Value Date Time White Blood Count 7.9 10^3/uL 08/23/18 0443 Red Blood Count 4.06 10^6/uL 08/23/183 Hemoglobin 12.5 g/dl # 08/23/18442 Hematocrit 39.7 % 08/23/18442 Mean Corpuscular Volume 97.8 fl H 08/23/18442 Mean Corpuscular Hemoglobin 30.8 pg 08/23/18442 Mean Corpuscular Hemoglobin Concent 31.5 g/dl L 08/23/18442 Red Cell Distribution Width 13.2 % 08/23/18442 Platelet Count 252 10^3/uL 08/23/18442 Immature Granulocyte % (Auto) 0.3 % 08/23/18442 Neutrophils (%) (Auto) 57.3 % 08/23/18442 Lymphocytes (%) (Auto) 30.0 % 08/23/18442 Monocytes (%) (Auto) 9.9 % H 08/23/18442 Eosinophils (%) (Auto) 2.0 % 08/23/18442 Basophils (%) (Auto) 0.5 % 08/23/18442 Neutrophils # (Auto) 4.5 10^3/uL 08/23/183 Lymphocytes # (Auto) 2.4 10^3/uL 08/23/183 Monocytes # (Auto) 0.8 10^3/uL 08/23/18442 Eosinophils # (Auto) 0.2 10^3/uL 08/23/18442 Basophils # (Auto) 0.0 10^3/uL 08/23/18442 Nucleated Red Blood Cells % (auto) 0.0 % 08/23/18442 Sodium Level 140 MEQ/L 08/23/18442 Potassium Level 4.0 MEQ/L 08/23/18442 Chloride Level 102 MEQ/L 08/23/183 Carbon Dioxide Level 34 MEQ/L H 08/23/18442 Anion Gap 4 MEQ/L L 08/23/18442 Blood Urea Nitrogen 12 MG/DL 08/23/18442 Creatinine 0.55 MG/DL 08/23/18442 Glomerular Filtration Rate > 60.0 08/23/18442 Fasting Glucose 155 MG/DL H 08/23/18442 Estimated Mean Plasma Glucose 154 MG/DL H 08/23/18442 Hemoglobin A1c 7.0 % 4/1/19 0443 Calcium Level 8.0 MG/DL L 08/23/18 0443 Blood Gas Bicarbonate Standard 28.5 MEQ/L H 08/23/18 1109 Arterial Blood pH 7.361 UNITS 08/23/18 1109 Arterial Blood Partial Pressure CO2 56.9 mmHg H 08/23/18 1109 Arterial Blood Partial Pressure O2 68.3 mmHg L 08/23/18 1109 Arterial Blood HCO3 31.5 MEQ/L H 08/23/18 1109 Arterial Blood Total CO2 33.2 MEQ/L H 08/23/18 1109 Arterial Blood Oxygen Saturation 92.5 % L 08/23/18 1109 Arterial Blood Base Excess 4.7 H 08/23/18 1109 Microbiology Microbiology 08/22/18 Blood Culture - Preliminary, Resulted 08/22/18 Blood Culture - Preliminary, Resulted Discharge Medications Scheduled Aspirin (Aspirin EC) 81 Mg Tabec, 81 MG PO DAILY, (Reported) Atorvastatin Calcium (Lipitor) 80 Mg Tab, 80 MG PO QHS, (Reported) Bisoprolol Fumarate (Bisoprolol Fumarate) 5 Mg Tab, 2.5 MG PO DAILY, (Reported) Duloxetine Hcl (Duloxetine HCl) 60 Mg Cap, 60 MG PO DAILY, (Reported) Fluticasone Propionate (Flonase Allergy Relief) 50 Mcg/Act Spr, 1 SPRAY NA DAILY, (Reported) Gabapentin (Gabapentin) 800 Mg Tab, 800 MG PO TID, (Reported) Levothyroxine Sodium (Levoxyl) 25 Mcg Tab, 25 MCG PO DAILY, (Reported) Metformin Hydrochloride (Metformin HCl) 1,000 Mg Tab, 1,000 MG PO BID, (Reported) Nystatin (Nystatin Oral Susp) 5 Ml Susp, 5 ML SS TID, (Reported) Pantoprazole Sodium (Pantoprazole Sodium) 40 Mg Tab, 40 MG PO DAILY, (Reported) Prednisone (Prednisone) 5 Mg Tab, 5 MG PO DAILY, (Reported) Salmeterol/Fluticasone (Advair Hfa 230-21 Mcg/Act) 1 Aer Aer, 2 PUFF INH BID, (Reported) Sucralfate (Sucralfate) 1 Gm Tab, 1 GM PO AC, (Reported) Tiotropium [place] Monohydrate (Spiriva Handihaler) 18 Mcg Cap, 1 CAP INH DAILY, (Reported) Vitamin D (Drisdol) 50,000 Unit Cap, 50,000 UNIT PO 1XWK, (Reported) FRIDAYS Scheduled PRN (Hydrocodone Bitartrate/AC 7.5-325 mg) 1 Tab Tab, 1 TAB PO TID PRN for PAIN, (Reported) Albuterol Sulfate (Ventolin Hfa) 108 Mcg/Act Aer, 2 PUFFS INH Q4H PRN for SHORTNESS OF BREATH, (Reported) Albuterol/Ipratropium (Ipratropium [place]/Albut 0.5-2.5 (3) mg/3Ml) 1 Juanita Juanita, 1 JUANITA INH QID PRN for SOB/WHEEZING, (Reported) Hydroxyzine Pamoate (Hydroxyzine Pamoate) 25 Mg Cap, 25 MG PO TID PRN for ANXIETY, (Reported) Allergies Coded Allergies: No Known Allergies (Unverified , 08/22/18) OLIVIA PORTER MD Aug 26, 2018 16:54
--- NOTE | 2018-08-26 17:23 | IPNPDOC ---
Text Note Date of Service The patient was seen on 08/26/18. NOTE 2/2 bottles of blood cultures are coming back positive with gram positive cocci in clusters. Spoke with Dr Arpan HANCOCK about this results . He is aware of them and is following it. He is waiting for the species and sensitivities to come back. As per him the patient is feeling good , no complaints , no fevers , or sympttoms. He spoke with the pateint. Most probably is a contaminant . But he is going to repeat the blood cultures in 2 to 3 days time. VS,Fishbone, I+O VS, Fishbone, I+O Vital Signs Date Time Temp Pulse Resp B/P (MAP) Pulse Ox O2 Delivery O2 Flow Rate FiO2 08/23/18 08:42 73 145/96 08/23/18 07:47 97.0 24 93 4.0 08/23/18 07:45 30 08/23/18 00:08 Nasal Cannula OLIVIA PORTER MD Aug 26, 2018 17:23
== END 2018-08-23 12:08 | disposition home health service (06) | DRG 189 ==
LOC: M ED 06:33 → M ED INP 10:23 → M ICU 12:17
PROVIDERS: ADMIT Internal Medicine Nephrology; ATTEND Internal Medicine Nephrology
DX: J96.21 Acute and chronic respiratory failure with hypoxia (principal); J96.22 Acute and chronic respiratory failure with hypercapnia; J44.9 Chronic obstructive pulmonary disease, unspecified; G47.33 Obstructive sleep apnea (adult) (pediatric); I25.10 Atherosclerotic heart disease of native coronary artery without angina pectoris; I25.2 Old myocardial infarction; M79.7 Fibromyalgia; K21.9 Gastro-esophageal reflux disease without esophagitis; M51.36 Other intervertebral disc degeneration, lumbar region; M62.830 Muscle spasm of back; I10 Essential (primary) hypertension; E78.5 Hyperlipidemia, unspecified; E11.9 Type 2 diabetes mellitus without complications; E66.9 Obesity, unspecified; R91.1 Solitary pulmonary nodule; F31.9 Bipolar disorder, unspecified; F41.9 Anxiety disorder, unspecified; F12.10 Cannabis abuse, uncomplicated; F17.200 Nicotine dependence, unspecified, uncomplicated; M53.3 Sacrococcygeal disorders, not elsewhere classified; Z79.82 Long term (current) use of aspirin; Z79.84 Long term (current) use of oral hypoglycemic drugs; Z79.52 Long term (current) use of systemic steroids; Z79.899 Other long term (current) drug therapy; Z91.19 Patient's noncompliance with other medical treatment and regimen; Z68.36 Body mass index [BMI] 36.0-36.9, adult

== ENCOUNTER 2018-09-11 06:24 | Inpatient (IN) | payer MEDICARE, MEDICAID ==
[~2018-09-11] VITALS: Ht 165.1 cm; Wt 96.7 kg
[2018-09-11] MEDS: LEVOTHYROXINE 25MCG TABLET (0.025MG) PO SCH (06:00)
[~2018-09-11 06:24] MED LIST changes: -ASPI1TAB PO; +ASPI81TA26 PO; -NAPR-50 PO; +NAPR-837 PO; -SENN1TAB2 PO; +SENN1TAB40 PO
[2018-09-11] MEDS ORDERED: IPRATROPIUM 0.5MG/ALBUTEROL 2.5MG INH SOL UD 3ML (DUONEB)(J7620) As Ordered ONE (06:30)
[2018-09-11] MEDS: IPRATROPIUM 0.5MG/ALBUTEROL 2.5MG INH SOL UD 3ML (DUONEB)(J7620) NEB PRN ×3 (06:54→08:30)
[2018-09-11 07:09] LABS: ABG HCO3 39.7 MEQ/L (22.0-26.0); ABG O2 SATURATION 96.4 % (95.0-99.0); ABG PARTIAL PRESSURE O2 103.8 mmHg (75.0-100.0); ABG STANDARD HCO3 31.8 MEQ/L (22.0-26.0); ABG TOTAL CO2 42.6 MEQ/L (23.0-31.0)
[2018-09-11 07:11] LABS: ABG PARTIAL PRESSURE CO2 95.8 mmHg (35.0-45.0); ABG pH (ARTERIAL) 7.235 UNITS (7.350-7.450)
[2018-09-11 07:14] LABS: BASO # 0.1 10^3/uL (0.0-0.2); BASO % 0.7 % (0.0-1.0); EOS # 0.2 10^3/uL (0.0-0.50); EOS % 1.5 % (0.0-3.0); HEMATOCRIT 46.3 % (36.0-47.0); HEMOGLOBIN 14.5 g/dl (12.0-15.5); LYMPH # 2.3 10^3/uL (1.5-4.5); LYMPH % 22.2 % (24.0-44.0); MEAN CORPUSCULAR HEMOGLOBIN 30.4 pg (27.0-33.0); MEAN CORPUSCULAR HGB CONC 31.3 g/dl (32.0-36.5); MEAN CORPUSCULAR VOLUME 97.1 fl (80.0-96.0); MONO # 0.9 10^3/uL (0.0-0.8); MONO % 8.3 % (0.0-5.0); NEUTROPHILS # 6.9 10^3/uL (1.8-7.7); NEUTROPHILS % 66.6 % (36.0-66.0); PLATELET COUNT, AUTOMATED 365 10^3/uL (150-450); RED BLOOD COUNT 4.77 10^6/uL (4.00-5.40); WHITE BLOOD COUNT 10.3 10^3/uL (4.0-10.0)
[2018-09-11 07:23] LABS: BLOOD UREA NITROGEN 16 MG/DL (7-18); CALCIUM LEVEL 8.6 MG/DL (8.8-10.2); CARBON DIOXIDE LEVEL 35 MEQ/L (21-32); CHLORIDE LEVEL 100 MEQ/L (98-107); CPK CREATINE PHOSPHOKINASE 109 U/L (26-192); CREATININE FOR GFR 0.59 MG/DL (0.55-1.30); GLOMERULAR FILTRATION RATE > 60.0 (>45); GLUCOSE, FASTING 195 MG/DL (70-100); NT-PRO BNP 128 PG/ML (<125); POTASSIUM SERUM 4.1 MEQ/L (3.5-5.1); SODIUM LEVEL 139 MEQ/L (136-145); TROPONIN I < 0.02 NG/ML (< 0.10)
[2018-09-11 08:33] LABS: MB/CK RELATIVE INDEX 3.66 (< OR =4)
[2018-09-11 08:44] LABS: ABG BASE EXCESS 6.2 (-2.0-2.0); ABG HCO3 37.1 MEQ/L (22.0-26.0); ABG O2 SATURATION 94.3 % (95.0-99.0); ABG PARTIAL PRESSURE CO2 87.4 mmHg (35.0-45.0); ABG PARTIAL PRESSURE O2 77.1 mmHg (75.0-100.0); ABG TOTAL CO2 39.8 MEQ/L (23.0-31.0); ABG pH (ARTERIAL) 7.246 UNITS (7.350-7.450)
[2018-09-11] MEDS ORDERED: AZITHROMYCIN 250 MG TAB PO ONE (09:30)
[2018-09-11] MEDS ORDERED: GLUCAGON FOR INJ 1 MG VIAL (J1610) SC PRN (09:45)
[2018-09-11] MEDS ORDERED: GLUCOSE 4 GM CHEW TABLET PO PRN (09:45)
[2018-09-11] MEDS ORDERED: PILL CRUSHER/CUTTER 1 EACH XX PRN (09:45)
[2018-09-11] MEDS ORDERED: DEXTROSE 50% 50 ML SYRINGE IV PRN (09:45)
--- NOTE | 2018-09-11 10:03 | HPEPDOC ---
[facility] Medical History & Physical Date of Admission Sep 11, 2018 History and Physical CHIEF COMPLAINT: "I couldn't breathe." HISTORY OF PRESENTING ILLNESS: 62 year old female with COPD, chronic respiratory failure with hypoxia on 2liters home oxygen and hypercarbia co2 60's, SUYAPA refuses cpap,claustrophobic, Bipolar disorder, anxiety, diabetes, Hypertension, Hypothyroid, CAD, obesity bmi 35.5 presented to the ED for acute onset SOB. She was fine yesterday then woke up this morning at 4am with respiratory distress. She denies any She called the EMS and EMS found her to be gasping for breath, She was brought to the ED. In the Ed she was found to have acute on chronic respiratory failure with hypoxia and Hypercarbia with an initial abg 7.2/, and subsequently 7.2/. She refused BIPAP , but was still very anxious and complaining of SOB so was placed for admission. Per Homicide Investigator ammonia technician, Dr. Salomon, as long as pt is mentating well, she will not need any intervention, allowing 4-6 hrs for the solumedrol to work. She denies any recent fever, chills, cough, sputum production, recent sick contact. Pt was agreeable to trying out vapotherm which was given during her previous admission in July 2018, but per Homicide Investigator Dr. Salomon, vapotherm is mostly used in hypoxic patients, and does not have a bipap component for ventilatory support and would not be beneficial in this case. Pt is Pt remains a FULL CODE and despite claustrophia, is willing to try BIPAP if needed. Allergies Coded Allergies: No Known Allergies (Unverified , 08/22/18) Past Medical History Medical History Chronic obstructive pulmonary disease (COPD) Chronic respiratory failure with hypoxia and hypercarbia SUYAPA does not use CPAP Nonobstructive Coronary artery disease with history of NSTEMI 2012 Degenerative disc disease with chronic musculoskeletal pain and muscle spasm. Chronic low back pain on narcotics Sacroilliac joint pain and myofascial pain. Fibromyalgia. Osteoarthritis Gastroesophageal reflux disease (GERD). Hypertension. Hyperlipidemia Diabetes Obesity Hypothyroidism. Adrenal nodule on the right, seems to be adrenal adenoma. Lung nodule Major depressive disorder without any psychotic features. Bipolar, anxiety disorder, adjustment disorder Canabis use disorder. Surgical History Cholecystectomy. Cardiac catheterization without stent. History of breast biopsy. Dilation and curettage. Tubal ligation. Tonsillectomy. Exploratory laparotomy. 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 Dyspnea Gastrointestinal: Denies: Nausea, Vomiting, Abdominal Pain, Diarrhea, Constipation Genitourinary: Denies: Dysuria, Frequency, Incontinence, Hematuria Musculoskeletal: Reports: Back Pain, Shoulder Pain Neurological: Denies: Weakness, Numbness, Incoordination, Change in speech, Confusion Psych: Reports: Anxiety, Depression Physical Examination vitals: pls see below General Exam: Positive: Alert, Cooperative, Mild Distress Eye Exam: Positive: PERRLA, Conjunctiva & lids normal ENT Exam: Positive: Atraumatic, Mucous membr. moist/pink, Tongue Midline Neck Exam: Positive: Supple Chest Exam: Positive: Rhonchi, Wheezing, Diminished Heart Exam: Positive: Rate Normal, Regular Rhythm, Normal S1, Normal S2; Negative: Tachycardic, Bradycardic, Irregular Rhythm, Gallops, Murmurs, Rubs, Other Telemetry: Positive: Sinus Abdomen Exam: Positive: Normal bowel sounds, Soft; Negative: BS Hyperactive, BS Hypoactive, Tenderness, Hepatospenomegaly Extremity Exam: Positive: Normal pulses; Negative: Clubbing, Cyanosis, Edema Neuro Exam: Positive: Normal Speech, Strength at 5/5 X4 ext, Normal Tone Psych Exam: Positive: Anxiety, Oriented x 3 LABORATORY DATA, IMAGING STUDIES, MICROBIOLOGY: PLS SEE BELOW Assessment/Plan 62 year old female with COPD, chronic respiratory failure with hypoxia on 2liters home oxygen and hypercarbia co2 60's, SUYAPA refuses cpap,claustrophobic, Bipolar disorder, anxiety, diabetes, Hypertension, Hypothyroid, CAD, obesity bmi 35.5 presented to the ED for acute onset SOB. She was fine yesterday then woke up this morning at 4am with respiratory distress. She denies any She called the EMS and EMS found her to be gasping for breath, She was brought to the ED. In the Ed she was found to have acute on chronic respiratory failure with hypoxia and Hypercarbia with an initial abg 7., and subsequently 7.. She refused BIPAP , but was still very anxious and complaining of SOB so was placed for admission. Per Homicide Investigator ammonia technician, Dr. Salomon, as long as pt is mentating well, she will not need any intervention, allowing 4-6 hrs for the solumedrol to work. She denies any recent fever, chills, cough, sputum production, recent sick contact. Pt was agreeable to trying out vapotherm which was given during her previous admission in July 2018, but per Homicide Investigator Dr. Salomon, vapotherm is mostly used in hypoxic patients, and does not have a bipap component for ventilatory support and would not be beneficial in this case. Pt is Pt remains a FULL CODE and despite claustrophia, is willing to try BIPAP if needed. Acute on Chronic respiratory failure with hypercarbia and hypoxia due to COPD exacerbation continue XOPENEX, spiriva, SOLUMEDROL ICU admission as pt is willing to try bipap if remains with respiratory acidosis case discussed with pulmologist Dr Salomon who recommends monitoring mental status for now. no role for vapotherm in this case as it has no ventilatory component that BIPAP has. repeat abg at 1600 SUYAPA does not use CPAP continue oxygen supplementation Nonobstructive Coronary artery disease with history of NSTEMI 2012 continue bisoprolol, statin, asa Degenerative disc disease /Chronic low back pain /Sacroiliac joint pain and myofascial pain/ osteoarthritis hold narcotics till abg improves to baseline. can give tylenol prn. Fibromyalgia. chronic. will avoid meds with sedative effects Gastroesophageal reflux disease (GERD). continue PPI Hypertension. continue bisoprolol Hyperlipidemia continue statin Diabetes consistent carbs diet insulin sliding scale will resume metformin on discharge Obesity complicating care Hypothyroidism. continue Synthroid Major depressive disorder without any psychotic features /Bipolar/anxiety disorder/adjustment disorder no suicidal or homicidal ideation DVT prophylaxis ordered. Plan / VTE VTE Prophylaxis Ordered?: Yes Vital Signs Vital Signs Date Time Temp Pulse Resp B/P (MAP) Pulse Ox O2 Delivery O2 Flow Rate FiO2 09/11/18 09:01 95 91 Nasal Cannula 5.0 09/11/18 09:00 155/76 (102) 09/11/18 06:38 97.2 09/11/18 06:31 34 Laboratory Data Labs 24H Laboratory Tests 2 09/11/18 06:48: Immature Granulocyte % (Auto) 0.7, White Blood Count 10.3H, Red Blood Count 4.77, Hemoglobin 14.5, Hematocrit 46.3, Mean Corpuscular Volume 97.1H, Mean Corpuscular Hemoglobin 30.4, Mean Corpuscular Hemoglobin Concent 31.3L, Red Cell Distribution Width 13.2, Platelet Count 365, Neutrophils (%) (Auto) 66.6H, Lymphocytes (%) (Auto) 22.2L, Monocytes (%) (Auto) 8.3H, Eosinophils (%) (Auto) 1.5, Basophils (%) (Auto) 0.7, Neutrophils # (Auto) 6.9, Lymphocytes # (Auto) 2.3, Monocytes # (Auto) 0.9H, Eosinophils # (Auto) 0.2, Basophils # (Auto) 0.1, Nucleated Red Blood Cells % (auto) 0.0, Anion Gap 4L, Glomerular Filtration Rate > 60.0, Blood Urea Nitrogen 16, Creatinine 0.59, Sodium Level 139, Potassium Level 4.1, Chloride Level 100, Carbon Dioxide Level 35H, Calcium Level 8.6L, Total Creatine Kinase 109, Creatine Kinase MB 4.0H, Creatine Kinase MB Relative Index 3.66, Troponin I < 0.02, CW-Kod-Q-Type Natriuretic Peptide 128H 09/11/18 06:49: Lactic Acid Level 1.2 09/11/18 07:00: Blood Gas Bicarbonate Standard 31.8H, Arterial Blood pH 7.235*L, Arterial Blood Partial Pressure CO2 95.8*H, Arterial Blood Partial Pressure O2 103.8H, Arterial Blood Total CO2 42.6H, Arterial Blood HCO3 39.7H, Arterial Blood Base Excess 8.0H, Arterial Blood Oxygen Saturation 96.4 09/11/18 08:22: Blood Gas Bicarbonate Standard 30.0H, Arterial Blood pH 7.246*L, Arterial Blood Partial Pressure CO2 87.4*H, Arterial Blood Partial Pressure O2 77.1, Arterial Blood Total CO2 39.8H, Arterial Blood HCO3 37.1H, Arterial Blood Base Excess 6.2H, Arterial Blood Oxygen Saturation 94.3L CBC/BMP Laboratory Tests 09/11/18 06:48 Red Blood Count 4.77, Mean Corpuscular Volume 97.1 H, Mean Corpuscular Hemoglobin 30.4, Mean Corpuscular Hemoglobin Concent 31.3 L, Red Cell Distribution Width 13.2, Neutrophils (%) (Auto) 66.6 H, Lymphocytes (%) (Auto) 22.2 L, Monocytes (%) (Auto) 8.3 H, Eosinophils (%) (Auto) 1.5, Basophils (%) (Auto) 0.7, Neutrophils # (Auto) 6.9, Lymphocytes # (Auto) 2.3, Monocytes # (Auto) 0.9 H, Eosinophils # (Auto) 0.2, Basophils # (Auto) 0.1, Calcium Level 8.6 L, Total Creatine Kinase 109 Microbiology Microbiology 09/11/18 Blood Culture, Received Pending 09/11/18 Blood Culture, Received Pending 09/11/18 Respiratory Virus Panel (PCR) (TERRANCE) - Final, Complete Home Medications Scheduled Aspirin (Aspirin EC) 81 Mg Tabec, 81 MG PO DAILY Atorvastatin Calcium (Lipitor) 80 Mg Tab, 80 MG PO QHS Bisoprolol Fumarate (Bisoprolol Fumarate) 5 Mg Tab, 2.5 MG PO DAILY Duloxetine Hcl (Duloxetine HCl) 60 Mg Cap, 60 MG PO DAILY Ergocalciferol (Vitamin D2) (Drisdol) 50,000 Unit Cap, 50,000 UNIT PO 1XWK FRIDAYS Fluticasone Propion/Salmeterol (Advair Hfa 230-21 Mcg Inhaler) 1 Aer Aer, 2 PUFF INH BID Fluticasone Propionate (Flonase Allergy Relief) 50 Mcg/Act Spr, 1 SPRAY NA DAILY Gabapentin (Gabapentin) 800 Mg Tab, 800 MG PO TID Levothyroxine Sodium (Levoxyl) 25 Mcg Tab, 25 MCG PO DAILY Metformin HCl (Metformin HCl) 1,000 Mg Tab, 1,000 MG PO BID Pantoprazole Sodium (Pantoprazole Sodium) 40 Mg Tab, 40 MG PO DAILY Prednisone (Prednisone) 5 Mg Tab, 5 MG PO DAILY Sucralfate (Sucralfate) 1 Gm Tab, 1 GM PO AC Tiotropium [place] (Spiriva) 18 Mcg Cap, 1 CAP INH DAILY Scheduled PRN Albuterol Sulfate (Ventolin Hfa) 108 Mcg/Act Aer, 2 PUFFS INH Q4H PRN for SHORTNESS OF BREATH Hydrocodone/Acetaminophen (Hydrocodone-Acetamin 7.5-325) 1 Tab Tab, 1 TAB PO TID PRN for PAIN Hydroxyzine Pamoate (Hydroxyzine Pamoate) 25 Mg Cap, 25 MG PO TID PRN for ANXIETY Ipratropium/Albuterol Sulfate (Iprat-Albut 0.5-3(2.5) mg/3 ml) 1 Juanita Juanita, 1 JUANITA INH QID PRN for SOB/WHEEZING Allergies Coded Allergies: No Known Allergies (Unverified , 08/22/18) DAMIR HURLEY MD Sep 11, 2018 09:29
[2018-09-11] MEDS: GABAPENTIN 400 MG CAP PO SCH ×3 (10:33→20:19)
[2018-09-11] MEDS: ASPIRIN 81 MG ENTERIC TAB PO SCH (10:33)
[2018-09-11] MEDS: PANTOPRAZOLE 40MG TAB (PROTONIX) PO SCH (10:33)
[2018-09-11] MEDS: DULoxetine 30 MG CAP (CYMBALTA) PO SCH (10:33)
[2018-09-11] MEDS: BISOPROLOL FUMARATE 5 MG TAB PO SCH (10:35)
[2018-09-11] MEDS: ENOXAPARIN 40 MG/0.4 ML SYRINGE (J1650) SC SCH (10:35)
[2018-09-11] MEDS: FLUTICASONE PROP 0.05% NASAL SPRAY 16 GM (FLONASE) SCH (12:19)
[2018-09-11] MEDS: ADVAIR HFA 230/21MCG INHALER INH SCH ×2 (13:49→20:16)
[2018-09-11] MEDS: TIOTROPIUM INHALER/CAPSULE (SPIRIVA) INH SCH (13:49)
[2018-09-11] MEDS: HumaLOG INSULIN (NovoLOG) PER UNIT SC SCH ×3 (13:58→21:00)
[2018-09-11 14:16] LABS: ABG BASE EXCESS 3.7 (-2.0-2.0); ABG HCO3 31.9 MEQ/L (22.0-26.0); ABG O2 SATURATION 93.8 % (95.0-99.0); ABG PARTIAL PRESSURE O2 74.7 mmHg (75.0-100.0); ABG STANDARD HCO3 27.7 MEQ/L (22.0-26.0); ABG TOTAL CO2 33.9 MEQ/L (23.0-31.0); ABG pH (ARTERIAL) 7.312 UNITS (7.350-7.450)
[2018-09-11 14:20] LABS: ABG PARTIAL PRESSURE CO2 64.6 mmHg (35.0-45.0)
[2018-09-11] MEDS ORDERED: KETOROLAC 30 MG/ML VIAL (J1885) IV ONE (15:00)
[2018-09-11 15:05] VITALS: BP 114/60
[2018-09-11 15:45] LABS: MB/CK RELATIVE INDEX 3.94 (< OR =4)
[2018-09-11 16:00] VITALS: BP 113/57
--- NOTE | 2018-09-11 18:27 | ECGEPIP ---
Stationary ECG Study [facility] Test Date: 2018-09-11 Pat Name: MIGUEL NAQVI Department: Room: [place] [address] Gender: F Technical Lead: ISIDRO : 1955 Requested By: DAMIR Wynn Order Number: [id number] Reading MD: Anthony Traore Measurements Intervals [place] Rate: 83 P: 67 AR: 161 QRS: 36 QRSD: 102 T: 57 QT: 392 QTc: 462 Interpretive Statements Normal sinus rhythm Low limb voltage with slow precordial R wave progression; Body habitus versus pulmonary disease No change from 08/22/18 Electronically Signed On 09-11-2018 18:26:58 EDT by Anthony Traore
[2018-09-11 19:37] VITALS: BP 135/65
[2018-09-11] MEDS: ATORVASTATIN 20 MG TAB PO SCH (20:19)
[2018-09-11] MEDS: KETOROLAC 30 MG/ML VIAL (J1885) IV PRN (21:20)
[2018-09-11] MEDS: methylPREDNISolone INJ 125 MG/2 ML VIAL (J2930) IV SCH (21:58)
[2018-09-12] VITALS: BP 121/58
[2018-09-12] MEDS: methylPREDNISolone INJ 125 MG/2 ML VIAL (J2930) IV SCH ×4 (04:05→21:59)
[2018-09-12 04:15] VITALS: BP 124/58
[2018-09-12 04:54] LABS: HEMATOCRIT 42.3 % (36.0-47.0); HEMOGLOBIN 13.4 g/dl (12.0-15.5); MEAN CORPUSCULAR HGB CONC 31.7 g/dl (32.0-36.5); MEAN CORPUSCULAR VOLUME 94.6 fl (80.0-96.0); PLATELET COUNT, AUTOMATED 386 10^3/uL (150-450); RED BLOOD COUNT 4.47 10^6/uL (4.00-5.40); WHITE BLOOD COUNT 11.2 10^3/uL (4.0-10.0)
[2018-09-12] MEDS: LEVOTHYROXINE 25MCG TABLET (0.025MG) PO SCH (05:04)
[2018-09-12] MEDS: hydrOXYzine 25 MG TAB PO PRN ×2 (05:04→12:55)
[2018-09-12 05:17] LABS: BLOOD UREA NITROGEN 17 MG/DL (7-18); CALCIUM LEVEL 8.7 MG/DL (8.8-10.2); CARBON DIOXIDE LEVEL 35 MEQ/L (21-32); CHLORIDE LEVEL 97 MEQ/L (98-107); CREATININE FOR GFR 0.62 MG/DL (0.55-1.30); GLOMERULAR FILTRATION RATE > 60.0 (>45); GLUCOSE, FASTING 253 MG/DL (70-100); POTASSIUM SERUM 4.7 MEQ/L (3.5-5.1); SODIUM LEVEL 137 MEQ/L (136-145)
[2018-09-12 05:18] LABS: CPK CREATINE PHOSPHOKINASE 52 U/L (26-192); MB/CK RELATIVE INDEX 3.84 (< OR =4); TROPONIN I < 0.02 NG/ML (< 0.10)
[2018-09-12 08:00] VITALS: BP 130/60
[2018-09-12] MEDS: TIOTROPIUM INHALER/CAPSULE (SPIRIVA) INH SCH (08:16)
[2018-09-12] MEDS: ADVAIR HFA 230/21MCG INHALER INH SCH ×2 (08:16→20:19)
[2018-09-12] MEDS: ASPIRIN 81 MG ENTERIC TAB PO SCH (08:36)
[2018-09-12] MEDS: DULoxetine 30 MG CAP (CYMBALTA) PO SCH (08:36)
[2018-09-12] MEDS: HumaLOG INSULIN (NovoLOG) PER UNIT SC SCH ×4 (08:36→21:58)
[2018-09-12] MEDS: BISOPROLOL FUMARATE 5 MG TAB PO SCH (08:37)
[2018-09-12] MEDS: ENOXAPARIN 40 MG/0.4 ML SYRINGE (J1650) SC SCH (08:37)
[2018-09-12] MEDS: AZITHROMYCIN 250 MG TAB PO SCH (08:38)
[2018-09-12] MEDS: GABAPENTIN 400 MG CAP PO SCH ×3 (08:38→21:58)
[2018-09-12] MEDS: PANTOPRAZOLE 40MG TAB (PROTONIX) PO SCH (08:38)
[2018-09-12] MEDS: FLUTICASONE PROP 0.05% NASAL SPRAY 16 GM (FLONASE) SCH (08:38)
[2018-09-12] MEDS: NICOTINE 14 MG/24 HR TRANSDERMAL TD SCH (08:39)
[2018-09-12] MEDS ORDERED: OMEPRAZOLE 20 MG CAP PO SCH (09:00)
--- NOTE | 2018-09-12 09:12 | REP ---
Portable chest, 06:42 a.m., single AP view, the patient sitting: Comparison is 08/22/2018. The lung cherry are clear. The cardiac size is normal. The wesly, mediastinum, and skeletal structures are unremarkable. Impression: Negative portable chest. There is no interval change. Electronically Signed by Brigido Hinton MD 09/11/2018 09:59 A
[2018-09-12] MEDS: KETOROLAC 30 MG/ML VIAL (J1885) IV PRN ×2 (10:28→17:48)
[2018-09-12 12:00] VITALS: BP 120/60
--- NOTE | 2018-09-12 13:01 | IPNPDOC ---
Date Seen The patient was seen on 09/12/18. Progress Note SUBJECTIVE: Pt is back to baseline co2. ph 7.3 and AAOx3, answering questions appropriately. Her SOB is improved on solumedrol, and asking for coffee this morning. No c/o cough, JACOBSEN, chest pain, pressure,tightness, palpitations. Tele was unremarkable. OBJECTIVE: PHYSICAL EXAMINATION: VITALS: PLS SEE BELOW GEN:Awake alert oriented x 3, answering questions appropriately without conversational dyspnea Eye Exam: Positive: PERRLA, Conjunctiva & lids normal ENT Exam: Positive: Atraumatic, Mucous membr. moist/pink, Tongue Midline Neck Exam: Positive: Supple no JVD Chest Exam: Positive: Rhonchi, Wheezing, Diminished Heart Exam: Positive: Rate Normal, Regular Rhythm, Normal S1, Normal S2; Negative: Tachycardic, Bradycardic, Irregular Rhythm, Gallops, Murmurs, Rubs, Other Telemetry: Positive: Sinus Abdomen Exam: Positive: Normal bowel sounds, Soft; Negative: BS Hyperactive, BS Hypoactive, Tenderness, Hepatospenomegaly Extremity Exam: Positive: Normal pulses; Negative: Clubbing, Cyanosis, Edema Neuro Exam: Positive: Normal Speech, Strength at 5/5 X4 ext, Normal Tone Psych Exam: Positive: Anxiety, Oriented x 3 LABORATORY DATA, IMAGING STUDIES, MICROBIOLOGY: PLS SEE BELOW Assessment/Plan 62 year old female with COPD, chronic respiratory failure with hypoxia on 2liters home oxygen and hypercarbia co2 60's, SUYAPA refuses cpap,claustrophobic, Bipolar disorder, anxiety, diabetes, Hypertension, Hypothyroid, CAD, obesity bmi 35.5 presented to the ED for acute onset SOB. She was fine yesterday then woke up this morning at 4am with respiratory distress. She denies any She called the EMS and EMS found her to be gasping for breath, She was brought to the ED. In the Ed she was found to have acute on chronic respiratory failure with hypoxia and Hypercarbia with an initial abg 7.2/, and subsequently 7.2/. She refused BIPAP , but was still very anxious and complaining of SOB so was placed for admission. Per Waste Reclaimer utilization engineer, Dr. Salomon, as long as pt i s mentating well, she will not need any intervention, allowing 4-6 hrs for the solumedrol to work. She denies any recent fever, chills, cough, sputum production, recent sick contact. Pt was agreeable to trying out vapotherm which was given during her previous admission in July 2018, but per Waste Reclaimer Dr. Salomon, vapotherm is mostly used in hypoxic patients, and does not have a bipap component for ventilatory support and would not be beneficial in this case. Pt is Pt remains a FULL CODE and despite claustrophia, is willing to try BIPAP if needed. Acute on Chronic respiratory failure with hypercarbia and hypoxia due to COPD exacerbation continue XOPENEX, spiriva, SOLUMEDROL initially admitted to ICU, but medically stable for medsurg should she develop worsening respiratory acidosis, she is willing to try bipap case discussed with pulmologist Dr Salomon who recommends monitoring mental status for now. no role for vapotherm in this case as it has no ventilatory component that BIPAP has. repeat ABG reviewed and back to baseline Acute on Chronic Respiratory Acidosis, improved now at baseline responding to iv solumedrol due to COPD exacerbation continue XOPENEX, spiriva, SOLUMEDROL initially admitted to ICU, but medically stable for medsurg should she develop worsening respiratory acidosis, she is willing to try bipap case discussed with pulmologist Dr Salomon who recommends monitoring mental status for now. no role for vapotherm in this case as it has no ventilatory component that BIPAP has. repeat ABG reviewed and back to baseline SUYAPA does not use CPAP continue oxygen supplementation Nonobstructive Coronary artery disease with history of NSTEMI 2012 continue bisoprolol, statin, asa Degenerative disc disease /Chronic low back pain /Sacroiliac joint pain and myofascial pain/ osteoarthritis hold narcotics till abg improves to baseline. can give tylenol prn. Fibromyalgia. chronic. will avoid meds with sedative effects Gastroesophageal reflux disease (GERD). continue PPI Hypertension. continue bisoprolol Hyperlipidemia continue statin Diabetes consistent carbs diet insulin sliding scale will resume metformin on discharge Obesity complicating care Hypothyroidism. continue Synthroid Major depressive disorder without any psychotic features /Bipolar/anxiety disorder/adjustment disorder no suicidal or homicidal ideation DVT prophylaxis ordered. disposition: medicallys table for med surg. VS, I&O, 24H, Fishbone Vital Signs/I&O Vital Signs Date Time Temp Pulse Resp B/P (MAP) Pulse Ox O2 Delivery O2 Flow Rate FiO2 09/12/18 12:00 97.6 75 22 120/60 (80) 95 3.0 09/11/18 14:20 Nasal Cannula I&O- Last 24 Hours up to 6 AM 09/12/18 06:00 Intake Total 840 ml Output Total 1150 ml Balance -310 ml Laboratory Data 24H LABS Laboratory Tests 2 09/11/18 13:48: Bedside Glucose (Misc Panel) 292H 09/11/18 13:53: Blood Gas Bicarbonate Standard 27.7H, Arterial Blood pH 7.312L, Arterial Blood Partial Pressure CO2 64.6*H, Arterial Blood Partial Pressure O2 74.7L, Arterial Blood Total CO2 33.9H, Arterial Blood HCO3 31.9H, Arterial Blood Base Excess 3.7H, Arterial Blood Oxygen Saturation 93.8L 09/11/18 15:08: Total Creatine Kinase 76, Creatine Kinase MB 3.0, Creatine Kinase MB Relative Index 3.94 09/11/18 17:18: Bedside Glucose (Misc Panel) 198H 09/11/18 20:06: Bedside Glucose (Misc Panel) 236H 09/12/18 04:17: Nucleated Red Blood Cells % (auto) 0.0, Anion Gap 5L, Glomerular Filtration Rate > 60.0, Blood Urea Nitrogen 17, Creatinine 0.62, Sodium Level 137, Potassium [place] 4.7, Chloride Level 97L, Carbon Dioxide Level 35H, Calcium Level 8.7L, Total Creatine Kinase 52, Creatine Kinase MB 2.0, Creatine Kinase MB Relative Index 3.84, Troponin I < 0.02 09/12/18 08:27: Bedside Glucose (Misc Panel) 265H 09/12/18 11:57: Bedside Glucose (Misc Panel) 238H CBC/BMP Laboratory Tests 09/12/18 04:17 Red Blood Count 4.47, Mean Corpuscular Volume 94.6, Mean Corpuscular Hemoglobin 30.0, Mean Corpuscular Hemoglobin Concent 31.7 L, Red Cell Distribution Width 12.8, Calcium Level 8.7 L Microbiology Microbiology 09/11/18 Blood Culture - Preliminary, Resulted No growth after 24 hours . All specim... 09/11/18 Blood Culture - Preliminary, Resulted No growth after 24 hours . All specim... 09/11/18 Respiratory Virus Panel (PCR) ([facility]) - Final, Complete DAMIR HURLEY MD Sep 12, 2018 13:01
[2018-09-12 14:50] VITALS: BP 149/79
--- NOTE | 2018-09-12 20:38 | ECGEPIP ---
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
[2018-09-12] MEDS: ATORVASTATIN 20 MG TAB PO SCH (21:58)
[2018-09-12 22:00] VITALS: BP 134/65
[2018-09-13] MEDS: methylPREDNISolone INJ 125 MG/2 ML VIAL (J2930) IV SCH ×3 (03:08→21:19)
[2018-09-13 06:00] VITALS: BP 130/68
[2018-09-13] MEDS: LEVOTHYROXINE 25MCG TABLET (0.025MG) PO SCH (06:13)
[2018-09-13] MEDS: ADVAIR HFA 230/21MCG INHALER INH SCH ×2 (08:00→20:54)
[2018-09-13] MEDS: TIOTROPIUM INHALER/CAPSULE (SPIRIVA) INH SCH (08:00)
[2018-09-13] MEDS ORDERED: IPRATROPIUM 0.02% SOLN 0.5MG/2.5 ML NEB INH PRN (08:00)
[2018-09-13] MEDS ORDERED: IPRATROPIUM 0.02% SOLN 0.5MG/2.5 ML NEB NEB ONE (08:00)
[2018-09-13] MEDS ORDERED: LEVALBUTEROL 1.25 MG/0.5 ML CONCENTRATE NEB NEB ONE (08:00)
[2018-09-13] MEDS ORDERED: LEVALBUTEROL 1.25 MG/0.5 ML CONCENTRATE NEB INH PRN (08:00)
[2018-09-13 08:15] LABS: BASO % 0.1 % (0.0-1.0); HEMATOCRIT 41.9 % (36.0-47.0); HEMOGLOBIN 13.4 g/dl (12.0-15.5); LYMPH # 0.8 10^3/uL (1.5-4.5); LYMPH % 5.4 % (24.0-44.0); MEAN CORPUSCULAR HEMOGLOBIN 30.7 pg (27.0-33.0); MEAN CORPUSCULAR VOLUME 95.9 fl (80.0-96.0); MONO # 0.4 10^3/uL (0.0-0.8); MONO % 2.3 % (0.0-5.0); NEUTROPHILS # 13.7 10^3/uL (1.8-7.7); NEUTROPHILS % 90.8 % (36.0-66.0); PLATELET COUNT, AUTOMATED 406 10^3/uL (150-450); RED BLOOD COUNT 4.37 10^6/uL (4.00-5.40)
[2018-09-13] MEDS ORDERED: ULTRACET TAB PO ONE (08:15)
[2018-09-13] MEDS ORDERED: KETOROLAC 30 MG/ML VIAL (J1885) IV ONE (08:15)
--- NOTE | 2018-09-13 08:21 | IPNPDOC ---
Date Seen The patient was seen on 09/13/18. Progress Note SUBJECTIVE: pt is crying at the bedside because "They think I'm infected." of isoolation precautions due to h/o MRSA. MRSA screen is pending. She c/o increased SOB. "I can't catch my breath this morning." also with JACOBSEN. nebs q4h4rs. prn q1hr. She is requesting her hydrocodone for her chronic back pain and "it helps me calm down," but due to respiratory distress and increased risk of respiratory acidosis, she agreed to take toradol and tramadol instead. Pt is back to baseline co2. ph 7.3 and AAOx3, answering questions appropriately.No c/o cough,chest pain, pressure,tightness, palpitations. OBJECTIVE: PHYSICAL EXAMINATION: VITALS: PLS SEE BELOW GEN:Awake alert oriented x 3, answering questions appropriately without conversational dyspnea Eye Exam: Positive: PERRLA, Conjunctiva & lids normal ENT Exam: Positive: Atraumatic, Mucous membr. moist/pink, Tongue Midline Neck Exam: Positive: Supple no JVD Chest Exam: Positive: Rhonchi, Wheezing, Diminished Heart Exam: Positive: Rate Normal, Regular Rhythm, Normal S1, Normal S2; Negative: Tachycardic, Bradycardic, Irregular Rhythm, Gallops, Murmurs, Rubs, Other Telemetry: Positive: Sinus Abdomen Exam: Positive: Normal bowel sounds, Soft; Negative: BS Hyperactive, BS Hypoactive, Tenderness, Hepatospenomegaly Extremity Exam: Positive: Normal pulses; Negative: Clubbing, Cyanosis, Edema Neuro Exam: Positive: Normal Speech, Strength at 5/5 X4 ext, Normal Tone Psych Exam: Positive: Anxiety, Oriented x 3 LABORATORY DATA, IMAGING STUDIES, MICROBIOLOGY: PLS SEE BELOW Assessment/Plan 62 year old female with COPD, chronic respiratory failure with hypoxia on 2liters home oxygen and hypercarbia co2 60's, SUYAPA refuses cpap,claustrophobic, Bipolar disorder, anxiety, diabetes, Hypertension, Hypothyroid, CAD, obesity bmi 35.5 presented to the ED for acute onset SOB. She was fine yesterday then woke up this morning at 4am with respiratory distress. She denies any She called the EMS and EMS found her to be gasping for breath, She was brought to the ED. In the Ed she was found to have acute on chronic respiratory failure with hypoxia and Hypercarbia with an initial abg ., and subsequently 7.. She refused BIPAP , but was still very anxious and complaining of SOB so was placed for admission. Per Insurance Administrator home sales service professional, Dr. Salomon, as long as pt is mentating well, she will not need any intervention, allowing 4-6 hrs for the solumedrol to work. She denies any recent fever, chills, cough, sputum prod uction, recent sick contact. Pt was agreeable to trying out vapotherm which was given during her previous admission in July 2018, but per Insurance Administrator Dr. Salomon, vapotherm is mostly used in hypoxic patients, and does not have a bipap component for ventilatory support and would not be beneficial in this case. Pt is Pt remains a FULL CODE and despite claustrophia, is willing to try BIPAP if needed. Acute on Chronic respiratory failure with hypercarbia and hypoxia due to COPD exacerbation continue XOPENEX, spiriva, SOLUMEDROL initially admitted to ICU, but medically stable for medsurg should she develop worsening respiratory acidosis, she is willing to try bipap case discussed with pulmologist Dr Salomon who recommends monitoring mental status for now. no role for vapotherm in this case as it has no ventilatory component that BIPAP has. repeat ABG reviewed and back to baseline Acute on Chronic Respiratory Acidosis, improved now at baseline responding to iv solumedrol due to COPD exacerbation continue XOPENEX, spiriva, SOLUMEDROL initially admitted to ICU, but medically stable for medsurg should she develop worsening respiratory acidosis, she is willing to try bipap case discussed with pulmologist Dr Salomon who recommends monitoring mental status for now. no role for vapotherm in this case as it has no ventilatory component that BIPAP has. repeat ABG reviewed and back to baseline SUYAPA does not use CPAP continue oxygen supplementation Nonobstructive Coronary artery disease with history of NSTEMI 2012 continue bisoprolol, statin, asa Degenerative disc disease /Chronic low back pain /Sacroiliac joint pain and myofascial pain/ osteoarthritis hold narcotics till abg improves to baseline. can give tylenol prn. h/o MRSA contact isolation check mrsa screen Fibromyalgia. chronic. will avoid meds with sedative effects Gastroesophageal reflux disease (GERD). continue PPI Hypertension. continue bisoprolol Hyperlipidemia continue statin Chronic back pain prn toradol s/p tramadol avoid narcotics due to respiratory acidosis and risk of respiratory failure. Diabetes consistent carbs diet insulin sliding scale will resume metformin on discharge Obesity complicating care Hypothyroidism. continue Synthroid Major depressive disorder without any psychotic features /Bipolar/anxiety disorder/adjustment disorder no suicidal or homicidal ideation DVT prophylaxis ordered. VS, I&O, 24H, Fishbone Vital Signs/I&O Vital Signs Date Time Temp Pulse Resp B/P (MAP) Pulse Ox O2 Delivery O2 Flow Rate FiO2 09/13/18 06:00 95.9 76 22 130/68 (88) 96 3.0 09/11/18 14:20 Nasal Cannula l I&O- Last 24 Hours up to 6 AM 09/13/18 06:00 Intake Total 2160 ml Output Total 500 ml Balance 1660 ml Laboratory Data 24H LABS Laboratory Tests 2 09/12/18 08:27: Bedside Glucose (Misc Panel) 265H 09/12/18 11:57: Bedside Glucose (Misc Panel) 238H 09/12/18 17:11: Bedside Glucose (Misc Panel) 255H 09/12/18 21:36: Bedside Glucose (Misc Panel) 254H 09/13/18 07:45: Immature Granulocyte % (Auto) 1.4, White Blood Count 15.0H, Red Blood Count 4.37, Hemoglobin 13.4, Hematocrit 41.9, Mean Corpuscular Volume 95.9, Mean Corpuscular Hemoglobin 30.7, Mean Corpuscular Hemoglobin Concent 32.0, Red Cell Distribution Width 13.1, Platelet Count 406, Neutrophils (%) (Auto) 90.8H, Lymphocytes (%) (Auto) 5.4L, Monocytes (%) (Auto) 2.3, Eosinophils (%) (Auto) 0.0, Basophils (%) (Auto) 0.1, Neutrophils # (Auto) 13.7H, Lymphocytes # (Auto) 0.8L, Monocytes # (Auto) 0.4, Eosinophils # (Auto) 0.0, Basophils # (Auto) 0.0, Nucleated Red Blood Cells % (auto) 0.0 CBC/BMP Laboratory Tests 09/13/18 07:45 Red Blood Count 4.37, Mean Corpuscular Volume 95.9, Mean Corpuscular Hemoglobin 30.7, Mean Corpuscular Hemoglobin Concent 32.0, Red Cell Distribution Width 13.1, Neutrophils (%) (Auto) 90.8 H, Lymphocytes (%) (Auto) 5.4 L, Monocytes (%) (Auto) 2.3, Eosinophils (%) (Auto) 0.0, Basophils (%) (Auto) 0.1, Neutrophils # (Auto) 13.7 H, Lymphocytes # (Auto) 0.8 L, Monocytes # (Auto) 0.4, Eosinophils # (Auto) 0.0, Basophils # (Auto) 0.0 Microbiology Microbiology 09/11/18 Blood Culture - Preliminary, Resulted No Growth after 48 hours. All Specime... 09/11/18 Blood Culture - Preliminary, Resulted No Growth after 48 hours. All Specime... 09/11/18 Respiratory Virus Panel (PCR) ([facility]) - Final, Complete DAMIR HURLEY MD Sep 13, 2018 08:21
[2018-09-13] MEDS: AZITHROMYCIN 250 MG TAB PO SCH (08:23)
[2018-09-13] MEDS: NICOTINE 14 MG/24 HR TRANSDERMAL TD SCH (08:23)
[2018-09-13] MEDS: BISOPROLOL FUMARATE 5 MG TAB PO SCH (08:23)
[2018-09-13] MEDS: GABAPENTIN 400 MG CAP PO SCH ×3 (08:23→21:18)
[2018-09-13] MEDS: hydrOXYzine 25 MG TAB PO PRN ×3 (08:24→21:18)
[2018-09-13] MEDS: DULoxetine 30 MG CAP (CYMBALTA) PO SCH (08:24)
[2018-09-13] MEDS: PANTOPRAZOLE 40MG TAB (PROTONIX) PO SCH (08:24)
[2018-09-13] MEDS: ASPIRIN 81 MG ENTERIC TAB PO SCH (08:24)
[2018-09-13] MEDS: FLUTICASONE PROP 0.05% NASAL SPRAY 16 GM (FLONASE) SCH (08:25)
[2018-09-13] MEDS: ENOXAPARIN 40 MG/0.4 ML SYRINGE (J1650) SC SCH (08:25)
[2018-09-13] MEDS ORDERED: methylPREDNISolone INJ 125 MG/2 ML VIAL (J2930) IV ONE (08:30)
[2018-09-13 08:33] LABS: BLOOD UREA NITROGEN 17 MG/DL (7-18); CALCIUM LEVEL 8.7 MG/DL (8.8-10.2); CARBON DIOXIDE LEVEL 34 MEQ/L (21-32); CHLORIDE LEVEL 98 MEQ/L (98-107); CREATININE FOR GFR 0.75 MG/DL (0.55-1.30); GLOMERULAR FILTRATION RATE > 60.0 (>45); GLUCOSE, FASTING 292 MG/DL (70-100); POTASSIUM SERUM 4.5 MEQ/L (3.5-5.1); SODIUM LEVEL 137 MEQ/L (136-145)
[2018-09-13] MEDS: HumaLOG INSULIN (NovoLOG) PER UNIT SC SCH ×4 (09:49→21:19)
[2018-09-13] MEDS: LEVALBUTEROL 1.25 MG/0.5 ML CONCENTRATE NEB INH SCH ×4 (11:19→23:30)
[2018-09-13] MEDS: IPRATROPIUM 0.02% SOLN 0.5MG/2.5 ML NEB INH SCH ×4 (11:19→23:30)
[2018-09-13 14:00] VITALS: BP 135/78
[2018-09-13] MEDS: KETOROLAC 30 MG/ML VIAL (J1885) IV PRN ×2 (15:38→21:19)
[2018-09-13] MEDS: ATORVASTATIN 20 MG TAB PO SCH (21:18)
[2018-09-13 22:00] VITALS: BP 148/90
[2018-09-13 23:31] VITALS: O2SAT 95
[2018-09-14] MEDS: methylPREDNISolone INJ 125 MG/2 ML VIAL (J2930) IV SCH ×4 (02:04→21:07)
[2018-09-14] MEDS: IPRATROPIUM 0.02% SOLN 0.5MG/2.5 ML NEB INH SCH ×5 (03:31→19:46)
[2018-09-14] MEDS: LEVALBUTEROL 1.25 MG/0.5 ML CONCENTRATE NEB INH SCH ×5 (03:31→19:46)
[2018-09-14 03:32] VITALS: O2SAT 90
[2018-09-14 06:00] VITALS: BP 156/81
[2018-09-14] MEDS: LEVOTHYROXINE 25MCG TABLET (0.025MG) PO SCH (06:16)
[2018-09-14 06:38] LABS: BASO % 0.1 % (0.0-1.0); HEMATOCRIT 41.4 % (36.0-47.0); HEMOGLOBIN 13.3 g/dl (12.0-15.5); LYMPH # 0.6 10^3/uL (1.5-4.5); LYMPH % 4.2 % (24.0-44.0); MEAN CORPUSCULAR HEMOGLOBIN 30.2 pg (27.0-33.0); MEAN CORPUSCULAR HGB CONC 32.1 g/dl (32.0-36.5); MEAN CORPUSCULAR VOLUME 94.1 fl (80.0-96.0); MONO # 0.4 10^3/uL (0.0-0.8); MONO % 2.6 % (0.0-5.0); NEUTROPHILS # 13.2 10^3/uL (1.8-7.7); PLATELET COUNT, AUTOMATED 374 10^3/uL (150-450); WHITE BLOOD COUNT 14.5 10^3/uL (4.0-10.0)
[2018-09-14 07:01] LABS: BLOOD UREA NITROGEN 19 MG/DL (7-18); CALCIUM LEVEL 8.9 MG/DL (8.8-10.2); CARBON DIOXIDE LEVEL 33 MEQ/L (21-32); CHLORIDE LEVEL 98 MEQ/L (98-107); CREATININE FOR GFR 0.78 MG/DL (0.55-1.30); GLOMERULAR FILTRATION RATE > 60.0 (>45); GLUCOSE, FASTING 345 MG/DL (70-100); POTASSIUM SERUM 4.1 MEQ/L (3.5-5.1); SODIUM LEVEL 137 MEQ/L (136-145)
[2018-09-14] MEDS: TIOTROPIUM INHALER/CAPSULE (SPIRIVA) INH SCH (08:43)
[2018-09-14] MEDS: ADVAIR HFA 230/21MCG INHALER INH SCH ×2 (08:44→19:47)
[2018-09-14] MEDS: HumaLOG INSULIN (NovoLOG) PER UNIT SC SCH ×4 (08:52→21:08)
[2018-09-14] MEDS: ENOXAPARIN 40 MG/0.4 ML SYRINGE (J1650) SC SCH (08:52)
[2018-09-14] MEDS: NICOTINE 14 MG/24 HR TRANSDERMAL TD SCH (08:53)
[2018-09-14] MEDS: ASPIRIN 81 MG ENTERIC TAB PO SCH (08:53)
[2018-09-14] MEDS: AZITHROMYCIN 250 MG TAB PO SCH (08:53)
[2018-09-14] MEDS: PANTOPRAZOLE 40MG TAB (PROTONIX) PO SCH (08:53)
[2018-09-14] MEDS: DULoxetine 30 MG CAP (CYMBALTA) PO SCH (08:53)
[2018-09-14] MEDS: GABAPENTIN 400 MG CAP PO SCH ×3 (08:53→21:08)
[2018-09-14] MEDS: BISOPROLOL FUMARATE 5 MG TAB PO SCH (08:54)
[2018-09-14] MEDS: FLUTICASONE PROP 0.05% NASAL SPRAY 16 GM (FLONASE) SCH (08:54)
[2018-09-14] MEDS: hydrOXYzine 25 MG TAB PO PRN (09:03)
[2018-09-14] MEDS: KETOROLAC 30 MG/ML VIAL (J1885) IV PRN ×2 (09:04→18:03)
[2018-09-14 14:00] VITALS: BP 160/76
--- NOTE | 2018-09-14 15:24 | MHIPNPDOC ---
[facility] Progress Note Progress Note DATE OF SERVICE: 09/14/18 HISTORY: Patient admitted for acute on chronic COPD on 2L home oxygen. On admission to hospital she endorses depression and is tearful and labile. Says she needs help with medication management as her antidepressants are not controlling her depressive symptoms. Endorses not seeing an outpatient psychi atrist since DR. Antony 5 years ago. Reports chronic back pain is worse since tapering down her opioids and that weight gain from prednisone is particularly distressing. Denies any suicidal or homicidal ideation, denies any past manic episode (no lack of sleep for 4 or more days, excessive spending, excessive talkativeness or grandiosity). No history or reported recent psychotic symptoms including AVH or paranoia/delusions. PROS: see above. Per chart review which was confirmed with patient she was born in [place], had a happy childhood, twice for 21 and 14 years, last in 2006. Has since been living alone in [place] in [facility], but since moved into apartment in [place] alone. 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 Urine toxicology was positive for cocaine and cannabis in 2017. She used to be followed by Dr. Antony outpatient, but was d/c with his service due to poor follow-up for substance use . She has a sister with bipolar disorder, otherwise family history non- contributory. VITAL SIGNS: See below. NEW TEST RESULTS: see below, note EKG shows normal sinus rhythm and QTc 462 ms. She has obesity, Hba1c 7.0% 08/23/18. No lipid panel since 2018. CURRENT MEDICATIONS: See below. MENTAL STATUS EXAMINATION: Patient is a 62 year old female, who is no acute distress, A/0 x3 in hospital clothing, lying in bed. Speech: Is normal. Language skills are intact. Thought processes including: linear, logical. Thought content: depression, anxiety.. Abstract reasoning, and computation: intact. Description of associations: intact. Description of abnormal or psychotic thoughts: none. Judgment: fair. Insight: improving. Orientation: x3. Recent and remote memory: intact. Attention span and concentration: intact. Language: guyanese. Fund of knowledge: average. Mood: "depressed". Affect: dysthymic, anxious, constricted, does not smile. Psychiatric history: SMILEY, substance abuse (cannabis), MDD. Several inpatient admissions, last for depression February 2015. Previous medications lamictal 100 mg BID, Cymbalta 60 mg QAM, 30 mg QPM., Wellbutrin 150 mg BID. One reported SA "about 20 years ago", no recent thoughts. DIAGNOSES: 1. Major depressive disorder 2. cannabis use disorder in early remission 3. cocaine use disorder in remission ASSESSMENT: Patient is a 62 F with past psychiatric history as seen above who presents to hospital with acute on chronic COPD exacerbation. She endorses symptoms of. Patient denies SI/HI/AVH/ivone and does not meet criteria for inpatient psychiatric admission. She agrees to start aripiprazole 2.5 mg for augmentation of antidepressant/mood lability after being made aware of side eff ects including, but not limited to metabolic side effects, EPS, NMS. MANAGEMENT PLAN: 1. Suggest she continue her cymbalta 60 mg PO daily. 2. Suggest she receive aripiprazole 2.5 mg PO QHS food augmentation of her antidepressant and improvement of her mood lability. 3. Suggest she have lipid panel done and be monitored [id number] with Hba1c, lipid panel as atypical antipsychotics can cause metabolic side effects, should also be monitored annually for QTc prolongation on antipsychotics. 4. Patient should be connected with outpatient psychiatrist prior to discharge. TIME SPENT: 20 minutes. Vital Signs Vital Signs Date Time Temp Pulse Resp B/P (MAP) Pulse Ox O2 Delivery O2 Flow Rate FiO2 09/14/18 08:54 72 156/81 09/14/18 08:00 2.0 09/14/18 06:00 98.0 19 88 09/14/18 03:32 Nasal Cannula Laboratory Data 24H Labs Laboratory Tests 2 09/13/18 16:44: Bedside Glucose (Misc Panel) 421H 09/13/18 20:46: Bedside Glucose (Misc Panel) 343H 09/14/18 05:55: Immature Granulocyte % (Auto) 2.1, White Blood Count 14.5H, Red Blood Count 4.40, Hemoglobin 13.3, Hematocrit 41.4, Mean Corpuscular Volume 94.1, Mean Corpuscular Hemoglobin 30.2, Mean Corpuscular Hemoglobin Concent 32.1, Red Cell Distribution Width 13.1, Platelet Count 374, Neutrophils (%) (Auto) 91.0H, Lymphocytes (%) (Auto) 4.2L, Monocytes (%) (Auto) 2.6, Eosinophils (%) (Auto) 0.0, Basophils (%) (Auto) 0.1, Neutrophils # (Auto) 13.2H, Lymphocytes # (Auto) 0.6L, Monocytes # (Auto) 0.4, Eosinophils # (Auto) 0.0, Basophils # (Auto) 0.0, Nucleated Red Blood Cells % (auto) 0.0, Anion Gap 6L, Glomerular Filtration Rate > 60.0, Blood Urea Nitrogen 19H, Creatinine 0.78, Sodium Level 137, Potassium Level 4.1, Chloride Level 98, Carbon Dioxide Level 33H, Calcium Level 8.9 09/14/18 12:11: Bedside Glucose (Misc Panel) 344H CBC/BMP Laboratory Tests 09/14/18 05:55 Red Blood Count 4.40, Mean Corpuscular Volume 94.1, Mean Corpuscular Hemoglobin 30.2, Mean Corpuscular Hemoglobin Concent 32.1, Red Cell Distribution Width 13.1 , Neutrophils (%) (Auto) 91.0 H, Lymphocytes (%) (Auto) 4.2 L, Monocytes (%) (Auto) 2.6, Eosinophils (%) (Auto) 0.0, Basophils (%) (Auto) 0.1, Neutrophils # (Auto) 13.2 H, Lymphocytes # (Auto) 0.6 L, Monocytes # (Auto) 0.4, Eosinophils # (Auto) 0.0, Basophils # (Auto) 0.0, Calcium Level 8.9 Current Medications Current Medications Albuterol/ Ipratropium (Duoneb (Ipr 0.5mg/Alb 2.5mg)) 3 ml Q20M PRN NEB SHORTNESS OF BREATH Last administered on 09/11/18at 08:30; Start 09/11/18 at 06:45; Stop 09/11/18 at 08:30; Status DC Aspirin (Ecotrin) 81 mg DAILY PO Last administered on 09/14/18at 08:53; Start 09/11/18 at 09:00 Atorvastatin Calcium (Lipitor) 80 mg QHS PO Last administered on 09/13/18at 21:18; Start 09/11/18 at 21:00 Azithromycin (Zithromax Tab) 250 mg DAILY PO Last administered on 09/14/18 08:53; Start 09/12/18 at 09:00; Stop 09/15/18 at 09:01 Bisoprolol Fumarate (Zebeta) 2.5 mg DAILY PO Last administered on 09/14/18 08:54; Start 09/11/18 at 09:00 Dextrose (Dextrose 50%) 25 ml ASDIRECTED PRN IV SEE LABEL COMMENTS; Start 09/11/18 at 09:45 Duloxetine HCl (Cymbalta) 60 mg DAILY PO Last administered on 09/14/18 08:53; Start 09/11/18 at 09:00 Enoxaparin Sodium (Lovenox) 40 mg DAILY SC Last administered on 09/14/18 08:52; Start 09/11/18 at 09:00 Fluticasone Propionate (Flonase 0.05% Nasal [place]) 1 spray DAILY NA Last administered on 09/14/18 08:54; Start 09/11/18 at 09:00 Gabapentin (Neurontin) 800 mg TID PO Last administered on 09/14/18 08:53; Start 09/11/18 at 09:00 Glucagon (Glucagon) 1 mg ASDIRECTED PRN SC SEE LABEL COMMENTS; Start 09/11/18 at 09:45 Glucose (Glucose) 16 GM ASDIRECTED PRN PO SEE LABEL COMMENTS; Start 09/11/18 at 09:45 Home Med (Med Rec Complete!) ASDIRECTED XX ; Start 09/11/18 at 09:00; Stop 09/11/18 at 09:03; Status DC Hydroxyzine HCl (Atarax) 25 mg TID PRN PO ANXIETY Last administered on 08/24 09:03; Start 09/11/18 at 09:45 Insulin Human Lispro (HumaLOG INSULIN) SEE PROTOCOL TABLE AC SC Last administered on 09/14/18at 12:40; Start 09/11/18 at 12:00 Insulin Human Lispro (HumaLOG INSULIN) SEE PROTOCOL TABLE QHS SC Last administered on 09/13/18at 21:19; Start 09/11/18 at 21:00 Ipratropium [place] (Atrovent 0.02%) 0.5 mg Q1HP PRN INH SOB/WHEEZING; Start 09/13/18 at 08:00 Ipratropium [place] (Atrovent 0.02%) 0.5 mg RQ4H INH Last administered on 09/14/18 12:16; Start 09/13/18 at 12:00 Ketorolac Tromethamine (ToRADol) 15 mg Q6H PRN IV PAIN Last administered on 09/14/18 09:04; Start 09/11/18 at 21:15; Stop 09/16/18 at 21:14 Levalbuterol HCl (Xopenex Neb) 1.25 mg Q1HP PRN INH SHORTNESS OF BREATH; Start 09/13/18 at 08:00 Levalbuterol HCl (Xopenex Neb) 1.25 mg RQ4H INH Last administered on 09/14/18 12:16; Start 09/13/18 at 12:00 Levothyroxine Sodium (Synthroid) 25 mcg DAILY@0600 PO Last administered on 09/14/18 06:16; Start 09/11/18 at 06:00 Methylprednisolone (SOLUmedrol) 60 mg Q6H IV Last administered on 09/13/18 03:08; Start 09/11/18 at 22:00; Stop 09/13/18 at 08:22; Status DC Methylprednisolone (SOLUmedrol) 80 mg Q6H IV Last administered on 09/14/18 08:52; Start 09/13/18 at 15:00 Nicotine (Nicoderm Cq 14mg) 1 patch DAILY TD Last administered on 09/14/18 08:53; Start 09/12/18 at 09:00 Omeprazole (PriLOSEC) 20 mg DAILY PO ; Start 09/12/18 at 09:00; Stop 09/12/18 at 09:00; Status DC Pantoprazole Sodium (Protonix) 40 mg DAILY PO Last administered on 09/14/18 08:53; Start 09/11/18 at 09:00 Salmeterol Xinafoate/ Fluticasone (Advair Hfa 230/ 21) 2 puff BID INH Last administered on 09/14/18 08:44; Start 09/11/18 at 09:00 Tiotropium [place] (Spiriva Handihaler) 1 inhalation DAILY INH Last administered on 09/14/18 08:43; Start 09/11/18 at 09:00 Allergies Coded Allergies: No Known Allergies (Unverified , 08/22/18) BENSON SHAH PGY-1 Sep 14, 2018 14:42
--- NOTE | 2018-09-14 20:34 | IPN ---
DATE: 09/14/2018 SUBJECTIVE: Patient is seen and examined in the room today. Patient does not think that her breathing is getting better. Patient stated she requires additional assistance at home, otherwise she does not feel that she can take care of herself at home. Patient understands that she requires the continuous positive airway pressure (CPAP) at home, however patient is finding difficulty getting the appropriate mask setup. Because of claustrophobia patient is not able to tolerate current CPAP, therefore patient has not been using CPAP as instructed. OBJECTIVE: VITAL SIGNS: Temperature 98, pulse 72, respiratory rate 19, blood pressure 156/81, pulse oximetry 88% on 2 liters nasal cannula. GENERAL: Depressed. Patient is alert and awake, mild distress. HEENT: Normocephalic, atraumatic. Extraocular motors grossly intact. CARDIOVASCULAR: Positive S1, S2, regular rate. LUNGS: Decreased breath sounds, positive wheezes, no crackles. ABDOMEN: Soft, nontender, nondistended, bowel sounds present. EXTREMITIES: No edema. LABORATORY DATA: WBC 14.5, hemoglobin 13.3, hematocrit 41.4, platelet count 374, sodium 137, potassium 4.1, chloride 98, carbon dioxide 33, BUN 19, creatinine 0.78, GFR greater than 60, fasting glucose 345, calcium 8.9. ASSESSMENT AND PLAN: 1. Acute on chronic respiratory failure with hypoxic hypercapnia. Currently patient is being treated for chronic obstructive pulmonary disease (COPD) exacerbation. Continue steroids. Continue nebulizer treatments. Patient has had at least three hospitalizations since the middle of September. Will continue to see if we can provide additional care to stabilize the patient and prevent frequent admissions. 2. Obstructive sleep apnea (SUYAPA). Not compliant with continuous positive airway pressure (CPAP). Patient does not have very good followup in the outpatient setting. 3. Coronary artery disease with history of non ST elevation myocardial infarction (NSTEMI) in 2012. Continue aspirin, continue statin, continue beta leela. 4. History of methicillin-resistant Staphylococcus aureus (MRSA). 5. Anxiety/depression and possible history of bipolar. Patient stated she has had recent medication changes. Patient thinks that her health condition has started to deteriorate due to medication changes. Patient has become more anxious. Will consult psychiatrist for medication adjustment. 6. Hypertension. On beta leela. Continue to monitor. 7. Diabetes. Continue consistent carbohydrate diet. On sliding scale. 8. Deep venous thrombosis (DVT) prophylaxis. On Lovenox. MTDD
[2018-09-14] MEDS: ATORVASTATIN 20 MG TAB PO SCH (21:08)
[2018-09-14 22:00] VITALS: BP 160/74
[2018-09-15] MEDS: LEVALBUTEROL 1.25 MG/0.5 ML CONCENTRATE NEB INH SCH ×6 (00:22→20:00)
[2018-09-15] MEDS: IPRATROPIUM 0.02% SOLN 0.5MG/2.5 ML NEB INH SCH ×6 (00:22→20:00)
[2018-09-15] MEDS: methylPREDNISolone INJ 125 MG/2 ML VIAL (J2930) IV SCH ×4 (03:06→20:20)
[2018-09-15] MEDS: LEVOTHYROXINE 25MCG TABLET (0.025MG) PO SCH (05:53)
[2018-09-15 06:00] VITALS: BP 173/81
[2018-09-15 07:03] LABS: CHOLESTEROL LEVEL 139 MG/DL (<200); CHOLESTEROL RISK RATIO 2.106 (<5); HDL CHOLESTEROL 66 MG/DL (>40); LDL CHOLESTEROL 47 MG/DL (<100); NON-HDL-C 73 MG/DL; TRIGLYCERIDES LEVEL 131 MG/DL (<150)
[2018-09-15 07:19] LABS: HEMOGLOBIN A1c 7.6 %
[2018-09-15] MEDS: ADVAIR HFA 230/21MCG INHALER INH SCH ×2 (07:48→21:28)
[2018-09-15] MEDS: TIOTROPIUM INHALER/CAPSULE (SPIRIVA) INH SCH (07:48)
[2018-09-15] MEDS: GABAPENTIN 400 MG CAP PO SCH ×3 (08:13→20:20)
[2018-09-15] MEDS: DULoxetine 30 MG CAP (CYMBALTA) PO SCH (08:13)
[2018-09-15] MEDS: HumaLOG INSULIN (NovoLOG) PER UNIT SC SCH ×4 (08:13→20:21)
[2018-09-15] MEDS: ASPIRIN 81 MG ENTERIC TAB PO SCH (08:14)
[2018-09-15] MEDS: PANTOPRAZOLE 40MG TAB (PROTONIX) PO SCH (08:14)
[2018-09-15] MEDS: AZITHROMYCIN 250 MG TAB PO SCH (08:14)
[2018-09-15] MEDS: BISOPROLOL FUMARATE 5 MG TAB PO SCH (08:14)
[2018-09-15] MEDS: ENOXAPARIN 40 MG/0.4 ML SYRINGE (J1650) SC SCH (08:15)
[2018-09-15] MEDS: NICOTINE 14 MG/24 HR TRANSDERMAL TD SCH (08:16)
[2018-09-15] MEDS: KETOROLAC 30 MG/ML VIAL (J1885) IV PRN ×2 (08:17→17:22)
[2018-09-15] MEDS: FLUTICASONE PROP 0.05% NASAL SPRAY 16 GM (FLONASE) SCH (08:34)
[2018-09-15 08:36] LABS: BLOOD UREA NITROGEN 23 MG/DL (7-18); CALCIUM LEVEL 8.3 MG/DL (8.8-10.2); CARBON DIOXIDE LEVEL 33 MEQ/L (21-32); CHLORIDE LEVEL 98 MEQ/L (98-107); CREATININE FOR GFR 0.82 MG/DL (0.55-1.30); GLOMERULAR FILTRATION RATE > 60.0 (>45); GLUCOSE, FASTING 345 MG/DL (70-100); POTASSIUM SERUM 4.2 MEQ/L (3.5-5.1); SODIUM LEVEL 136 MEQ/L (136-145)
[2018-09-15 09:06] LABS: BASO % 0.2 % (0.0-1.0); HEMATOCRIT 41.5 % (36.0-47.0); HEMOGLOBIN 13.4 g/dl (12.0-15.5); LYMPH # 0.6 10^3/uL (1.5-4.5); LYMPH % 4.8 % (24.0-44.0); MEAN CORPUSCULAR HEMOGLOBIN 30.2 pg (27.0-33.0); MEAN CORPUSCULAR HGB CONC 32.3 g/dl (32.0-36.5); MEAN CORPUSCULAR VOLUME 93.7 fl (80.0-96.0); MONO # 0.4 10^3/uL (0.0-0.8); NEUTROPHILS # 12.1 10^3/uL (1.8-7.7); NEUTROPHILS % 90.6 % (36.0-66.0); PLATELET COUNT, AUTOMATED 388 10^3/uL (150-450); RED BLOOD COUNT 4.43 10^6/uL (4.00-5.40); WHITE BLOOD COUNT 13.3 10^3/uL (4.0-10.0)
[2018-09-15 14:00] VITALS: BP 161/94
--- NOTE | 2018-09-15 19:33 | IPNPDOC ---
Text Note Date of Service The patient was seen on 09/15/18. NOTE SUBJECTIVE: Patient is seen and examined in the room today. Patient still complains about difficulty breathing. She continues requiring oxygen support. Patient was seen by psychiatrist yesterday. She understands that she needs closer follow up in the outpatient setting. Smoking cessation was given to patient during encounter. Patient agrees to quit. OBJECTIVE: VITAL SIGNS: Listed below. GENERAL: Patient is alert and awake. No distress. HEENT: Normocephalic, atraumatic. Extraocular motors grossly intact. CARDIOVASCULAR: Positive S1, S2, regular rate. LUNGS: Decreased breath sounds, positive wheezes, no crackles. ABDOMEN: Soft, nontender, nondistended, bowel sounds present. EXTREMITIES: No edema. LABORATORY DATA: Listed below. ASSESSMENT AND PLAN: #. Acute on chronic respiratory failure with hypoxic hypercapnia. - Currently patient is being treated for chronic obstructive pulmonary disease (COPD) exacerbation. Continue steroids. Continue nebulizer treatments. #. Obstructive sleep apnea (SUYAPA). - Not compliant with continuous positive airway pressure (CPAP). Patient does not have very good followup in the outpatient setting. #. Coronary artery disease - History of Non ST elevation myocardial infarction (NSTEMI) in 2012. Continue aspirin, continue statin, continue beta leela. #. History of methicillin-resistant Staphylococcus aureus (MRSA). #. Anxiety/depression and possible history of bipolar. - Consulted psychiatrist for medication adjustment. #. Hypertension. On beta leela. Continue to monitor. #. Diabetes. Continue consistent carbohydrate diet. On sliding scale. #. Deep venous thrombosis (DVT) prophylaxis. On Lovenox. VS,Fishbone, I+O VS, Fishbone, I+O Laboratory Tests 09/15/18 06:08 Red Blood Count 4.43, Mean Corpuscular Volume 93.7, Mean Corpuscular Hemoglobin 30.2, Mean Corpuscular Hemoglobin Concent 32.3, Red Cell Distribution Width 13.2, Neutrophils (%) (Auto) 90.6 H, Lymphocytes (%) (Auto) 4.8 L, Monocytes (%) (Auto) 3.0, Eosinophils (%) (Auto) 0.0, Basophils (%) (Auto) 0.2, Neutrophils # (Auto) 12.1 H, Lymphocytes # (Auto) 0.6 L, Monocytes # (Auto) 0.4, Eosinophils # (Auto) 0.0, Basophils # (Auto) 0.0 09/15/18 06:10 Vital Signs Date Time Temp Pulse Resp B/P (MAP) Pulse Ox O2 Delivery O2 Flow Rate FiO2 09/15/18 14:00 97.6 77 19 161/94 (116) 92 2.0 09/14/18 03:32 Nasal Cannula I&O- Last 24 Hours up to 6 AM 09/15/18 06:00 Intake Total 740 ml Output Total 400 ml Balance 340 ml GRETCHEN CAIN DO Sep 15, 2018 19:33
[2018-09-15] MEDS: hydrOXYzine 25 MG TAB PO PRN (20:20)
[2018-09-15] MEDS: ATORVASTATIN 20 MG TAB PO SCH (20:21)
[2018-09-15 22:00] VITALS: BP 160/90
[2018-09-16] MEDS: methylPREDNISolone INJ 125 MG/2 ML VIAL (J2930) IV SCH ×2 (03:06→08:09)
[2018-09-16] MEDS: IPRATROPIUM 0.02% SOLN 0.5MG/2.5 ML NEB INH SCH ×6 (04:00→20:33)
[2018-09-16] MEDS: LEVALBUTEROL 1.25 MG/0.5 ML CONCENTRATE NEB INH SCH ×6 (04:00→20:00)
[2018-09-16] MEDS: LEVOTHYROXINE 25MCG TABLET (0.025MG) PO SCH (05:37)
[2018-09-16 06:00] VITALS: BP 146/86
[2018-09-16 06:26] LABS: HEMATOCRIT 42.1 % (36.0-47.0); HEMOGLOBIN 13.4 g/dl (12.0-15.5); MEAN CORPUSCULAR HEMOGLOBIN 30.2 pg (27.0-33.0); MEAN CORPUSCULAR HGB CONC 31.8 g/dl (32.0-36.5); PLATELET COUNT, AUTOMATED 349 10^3/uL (150-450); RED BLOOD COUNT 4.43 10^6/uL (4.00-5.40); WHITE BLOOD COUNT 12.9 10^3/uL (4.0-10.0)
[2018-09-16 06:45] LABS: BLOOD UREA NITROGEN 24 MG/DL (7-18); CARBON DIOXIDE LEVEL 36 MEQ/L (21-32); CHLORIDE LEVEL 100 MEQ/L (98-107); CREATININE FOR GFR 0.79 MG/DL (0.55-1.30); GLOMERULAR FILTRATION RATE > 60.0 (>45); GLUCOSE, FASTING 316 MG/DL (70-100); MAGNESIUM LEVEL 2.1 MG/DL (1.8-2.4); POTASSIUM SERUM 4.6 MEQ/L (3.5-5.1); SODIUM LEVEL 138 MEQ/L (136-145)
[2018-09-16] MEDS: DULoxetine 30 MG CAP (CYMBALTA) PO SCH (08:07)
[2018-09-16] MEDS: PANTOPRAZOLE 40MG TAB (PROTONIX) PO SCH (08:08)
[2018-09-16] MEDS: ASPIRIN 81 MG ENTERIC TAB PO SCH (08:08)
[2018-09-16] MEDS: BISOPROLOL FUMARATE 5 MG TAB PO SCH (08:08)
[2018-09-16] MEDS: GABAPENTIN 400 MG CAP PO SCH ×3 (08:08→21:31)
[2018-09-16] MEDS: ENOXAPARIN 40 MG/0.4 ML SYRINGE (J1650) SC SCH (08:09)
[2018-09-16] MEDS: NICOTINE 14 MG/24 HR TRANSDERMAL TD SCH (08:09)
[2018-09-16] MEDS: HumaLOG INSULIN (NovoLOG) PER UNIT SC SCH ×4 (08:10→21:00)
[2018-09-16] MEDS: TIOTROPIUM INHALER/CAPSULE (SPIRIVA) INH SCH (08:13)
[2018-09-16] MEDS: ADVAIR HFA 230/21MCG INHALER INH SCH (08:13)
[2018-09-16] MEDS: FLUTICASONE PROP 0.05% NASAL SPRAY 16 GM (FLONASE) SCH (09:13)
[2018-09-16] MEDS: KETOROLAC 30 MG/ML VIAL (J1885) IV PRN (09:14)
[2018-09-16] MEDS: hydrOXYzine 25 MG TAB PO PRN (12:24)
[2018-09-16 14:00] VITALS: BP 190/98
[2018-09-16] MEDS: amLODIPine 10 MG TAB PO SCH (15:07)
[2018-09-16 16:30] VITALS: BP 150/82
--- NOTE | 2018-09-16 18:33 | IPNPDOC ---
Text Note Date of Service The patient was seen on 09/16/18. NOTE SUBJECTIVE: Patient is seen and examined in the room today. Patient feels her breathing is approaching her baseline. She feels her anxiety is improving. Denies fever or chill. OBJECTIVE: VITAL SIGNS: Listed below. GENERAL: Patient is alert and awake. No distress. HEENT: Normocephalic, atraumatic. Extraocular motors grossly intact. CARDIOVASCULAR: Positive S1, S2, regular rate. LUNGS: Decreased breath sounds, positive wheezes, no crackles. ABDOMEN: Soft, nontender, nondistended, bowel sounds present. EXTREMITIES: No edema. LABORATORY DATA: Listed below. ASSESSMENT AND PLAN: #. Acute on chronic respiratory failure with hypoxic hypercapnia. - Currently patient is being treated for chronic obstructive pulmonary disease (COPD) exacerbation. Continue steroids. Continue nebulizer treatments. - Anticipate discharge in 24 hours. #. Obstructive sleep apnea (SUYAPA). - Not compliant with continuous positive airway pressure (CPAP). Patient does not have very good followup in the outpatient setting. #. Coronary artery disease - History of Non ST elevation myocardial infarction (NSTEMI) in 2012. Continue aspirin, continue statin, continue beta leela. #. History of methicillin-resistant Staphylococcus aureus (MRSA). #. Anxiety/depression and possible history of bipolar. - Consulted psychiatrist for medication adjustment. #. Hypertension. On beta leela. Continue to monitor. #. Diabetes. Continue consistent carbohydrate diet. On sliding scale. #. Deep venous thrombosis (DVT) prophylaxis. On Lovenox. VS,Fishbone, I+O VS, Fishbone, I+O Laboratory Tests 09/16/18 06:02 Red Blood Count 4.43, Mean Corpuscular Volume 95.0, Mean Corpuscular Hemoglobin 30.2, Mean Corpuscular Hemoglobin Concent 31.8 L, Red Cell Distribution Width 12.8, Calcium Level 8.0 L Vital Signs Date Time Temp Pulse Resp B/P (MAP) Pulse Ox O2 Delivery O2 Flow Rate FiO2 09/16/18 16:30 150/82 (104) 09/16/18 15:07 68 09/16/18 14:00 97.9 18 95 2.0 09/14/18 03:32 Nasal Cannula I&O- Last 24 Hours up to 6 AM 09/16/18 06:00 Intake Total 1780 ml Output Total 1300 ml Balance 480 ml SUNG,GODINEZ DO Sep 16, 2018 18:33
[2018-09-16] MEDS: predniSONE 20 MG TAB PO SCH (21:30)
[2018-09-16] MEDS: ATORVASTATIN 20 MG TAB PO SCH (21:30)
[2018-09-16 22:00] VITALS: BP 170/83
[2018-09-17] MEDS: IPRATROPIUM 0.02% SOLN 0.5MG/2.5 ML NEB INH SCH ×3 (00:03→08:34)
[2018-09-17] MEDS: ADVAIR HFA 230/21MCG INHALER INH SCH (00:03)
[2018-09-17] MEDS: LEVALBUTEROL 1.25 MG/0.5 ML CONCENTRATE NEB INH SCH ×3 (00:03→08:34)
[2018-09-17] MEDS: hydrOXYzine 25 MG TAB PO PRN ×2 (00:17→10:05)
[2018-09-17] MEDS: ACETAMINOPHEN 650MG ER TAB (TYLENOL ARTHRITIS) PO PRN ×2 (00:31→10:08)
[2018-09-17] MEDS: LEVOTHYROXINE 25MCG TABLET (0.025MG) PO SCH (05:48)
[2018-09-17 06:00] VITALS: BP 172/80
[2018-09-17 06:30] LABS: HEMATOCRIT 40.7 % (36.0-47.0); HEMOGLOBIN 13.3 g/dl (12.0-15.5); MEAN CORPUSCULAR HEMOGLOBIN 30.8 pg (27.0-33.0); MEAN CORPUSCULAR HGB CONC 32.7 g/dl (32.0-36.5); MEAN CORPUSCULAR VOLUME 94.2 fl (80.0-96.0); PLATELET COUNT, AUTOMATED 326 10^3/uL (150-450); RED BLOOD COUNT 4.32 10^6/uL (4.00-5.40); WHITE BLOOD COUNT 12.8 10^3/uL (4.0-10.0)
[2018-09-17 06:49] LABS: BLOOD UREA NITROGEN 26 MG/DL (7-18); CALCIUM LEVEL 7.8 MG/DL (8.8-10.2); CARBON DIOXIDE LEVEL 35 MEQ/L (21-32); CHLORIDE LEVEL 98 MEQ/L (98-107); CREATININE FOR GFR 0.68 MG/DL (0.55-1.30); GLOMERULAR FILTRATION RATE > 60.0 (>45); GLUCOSE, FASTING 340 MG/DL (70-100); POTASSIUM SERUM 4.3 MEQ/L (3.5-5.1); SODIUM LEVEL 137 MEQ/L (136-145)
[2018-09-17] MEDS ORDERED: ABIL1TAB11 PO (07:55)
[2018-09-17] MEDS ORDERED: PRED10TA2 PO (07:55)
[2018-09-17] MEDS: FLUTICASONE PROP 0.05% NASAL SPRAY 16 GM (FLONASE) SCH (09:00)
[2018-09-17] MEDS: ENOXAPARIN 40 MG/0.4 ML SYRINGE (J1650) SC SCH (09:00)
[2018-09-17] MEDS: DULoxetine 30 MG CAP (CYMBALTA) PO SCH (10:04)
[2018-09-17 10:05] VITALS: BP 140/70
[2018-09-17] MEDS: BISOPROLOL FUMARATE 5 MG TAB PO SCH (10:05)
[2018-09-17] MEDS: amLODIPine 10 MG TAB PO SCH (10:05)
[2018-09-17] MEDS: PANTOPRAZOLE 40MG TAB (PROTONIX) PO SCH (10:06)
[2018-09-17] MEDS: predniSONE 20 MG TAB PO SCH (10:06)
[2018-09-17] MEDS: ASPIRIN 81 MG ENTERIC TAB PO SCH (10:06)
[2018-09-17] MEDS: GABAPENTIN 400 MG CAP PO SCH (10:06)
[2018-09-17] MEDS: HumaLOG INSULIN (NovoLOG) PER UNIT SC SCH (10:07)
[2018-09-17] MEDS: NICOTINE 14 MG/24 HR TRANSDERMAL TD SCH (10:07)
--- NOTE | 2018-09-20 21:15 | DSES ---
DATE OF ADMISSION: 09/11/2018 DATE OF DISCHARGE: 09/17/2018 CONSULTANTS: Psychiatry. DISCHARGE DIAGNOSES: 1. Acute on chronic respiratory failure with hypoxic hypercarbia. 2. Chronic obstructive pulmonary disease (COPD) exacerbation. 3. Coronary artery disease. 4. Obstructive sleep apnea, noncompliant with continuous positive airway pressure (CPAP). 5. History of methicillin resistant Staphylococcus aureus (MRSA). 6. Anxiety/depression, possible history of bipolar. 7. Hypertension. 8. Diabetes. HOSPITALIZATION COURSE: The patient is a 62-year-old female who presented to [facility] on 09/11/2018 with complaints about increased shortness of breath. The patient was admitted under the hospitalist service for chronic obstructive pulmonary disease (COPD) exacerbation, acute on chronic respiratory failure with hypercarbia and hypoxia. The patient was admitted to the intensive care unit (ICU) under inpatient status. Due to respiratory failure, the case was discussed with the [employer] consultant. She was started on steroids and breathing treatments. With COPD exacerbation treatments, the patient's breathing started to improve. The patient had hypercapnia, which also started to improve. The patient's steroid taper was tapered according to the patient's clinical picture. Due to increased anxiety and depression with recent psychiatric medication adjustment, psychiatry was consulted. New medication was started for the patient's increased anxiety, which has complicated the patient's care. cleaner touch up worker also contacted to assist in patient's home situation. The patient was able to obtain more assistance once the patient was discharged. On 09/17/2018, the patient was determined stable for discharge with recommendations to followup with primary care provider in 1 week. During the last month, the patient has had three hospitalizations. Psychiatry has been consulted to help with the patient's anxiety/depression. Social work has helped to establish more support for home care. The patient's medical regimen is also being tailored based on the patient's situation. OBJECTIVE: VITAL SIGNS: On the day of discharge: Temperature 96.9, pulse 80, respirations 20, blood pressure 140/70, oxygen saturation 96% with 2 liters oxygen. LABORATORY DATA: WBC 12.8, hemoglobin 13.3, hematocrit 40.7, platelet count 326. Sodium is 137, potassium 4.3, chloride 98, carbon dioxide 35, BUN 26, creatinine 0.68, GFR greater than 60, fasting glucose 340, calcium 7.8, magnesium 2. ABG on admission showed pH 7.235, PCO2 of 95.8, PO2 is 103.8, HDL3 is 39.7. Microbiology: Blood cultures from 09/11/2018 showed no growth after 5 days times two sets. Respiratory panel on 09/11/2018 was negative. Methicillin resistant Staphylococcus aureus (MRSA) screen on 09/14/2018 was negative. Imaging studies: Chest x-ray on 09/11/2018 showed negative portable chest. DISCHARGE MEDICATIONS: - Abilify 2.5 mg by mouth at night for 7 days with a refill - prednisone taper - Ventolin two puff inhalation every 4 hours as needed - aspirin 81 mg by mouth daily - atorvastatin 80 mg by mouth at night - bisoprolol 2.5 mg by mouth daily - duloxetine 50 mg by mouth daily - vitamin D2 50,000 units by mouth once a week - Advair two puff inhalation twice a day - Flonase daily - gabapentin 800 mg by mouth three times a day - hydrocodone/acetaminophen 7.5/325 mg one tablet by mouth three times a day as needed - hydralazine 25 mg by mouth three times a day as needed for anxiety - albuterol/ipratropium inhalation four times a day as needed - levothyroxine 25 mcg by mouth daily - metformin 1000 mg by mouth twice a day - pantoprazole 40 mg by mouth daily - sucralfate 1 gram by mouth before meals - Spiriva one inhalation daily DISCHARGE INSTRUCTIONS: Discontinue lines. Discharge home. Activity as tolerated. Diet as tolerated. The patient should followup with her primary care provider in 1 week. The patient should get outpatient referral for psychiatrist. Discharge condition is fair. Discharge time was greater than 30 minutes.
== END 2018-09-17 12:00 | disposition home health service (06) | DRG 189 ==
LOC: M ED 06:24 → EDBD 06:24 → M ED INP 09:15 → M ICU 14:38 → M MS5PR 09-12 14:48
PROVIDERS: ADMIT General Practice; ATTEND General Practice
DX: J96.21 Acute and chronic respiratory failure with hypoxia (principal); J44.1 Chronic obstructive pulmonary disease with (acute) exacerbation; E87.2 Acidosis; J96.22 Acute and chronic respiratory failure with hypercapnia; I10 Essential (primary) hypertension; G47.33 Obstructive sleep apnea (adult) (pediatric); Z91.19 Patient's noncompliance with other medical treatment and regimen; F31.9 Bipolar disorder, unspecified; F41.9 Anxiety disorder, unspecified; E11.9 Type 2 diabetes mellitus without complications; E03.9 Hypothyroidism, unspecified; I25.10 Atherosclerotic heart disease of native coronary artery without angina pectoris; E66.9 Obesity, unspecified; Z68.35 Body mass index [BMI] 35.0-35.9, adult; I25.2 Old myocardial infarction; M19.90 Unspecified osteoarthritis, unspecified site; K21.9 Gastro-esophageal reflux disease without esophagitis; F12.90 Cannabis use, unspecified, uncomplicated; E78.5 Hyperlipidemia, unspecified; R91.1 Solitary pulmonary nodule; M79.7 Fibromyalgia; E27.8 Other specified disorders of adrenal gland; Z79.82 Long term (current) use of aspirin; Z79.899 Other long term (current) drug therapy

== ENCOUNTER 2018-10-02 02:12 | Inpatient (IN) | payer MEDICARE, MEDICAID ==
[~2018-10-02] VITALS: Ht 165.1 cm; Wt 93.5 kg
[~2018-10-02 02:12] MED LIST changes: +ABIL1TAB11 PO
[2018-10-02] MEDS ORDERED: IPRATROPIUM 0.5MG/ALBUTEROL 2.5MG INH SOL UD 3ML (DUONEB)(J7620) NEB ONE (02:30)
[2018-10-02] MEDS ORDERED: dexameTHASONE 20 MG/5 ML VIAL (J1100) IV ONE (02:45)
[2018-10-02] MEDS ORDERED: MAG SULF 1GM/100ML (MAG RUN) 1 GM in APPROPRIATE DILUENT 1 EA IV ONE ×6 (02:45)
[2018-10-02] MEDS ORDERED: ACETAMINOPHEN TAB 650MG DOSE (2X325MG) As Ordered ONE (02:59)
[2018-10-02] MEDS ORDERED: NORC1TAB8 PO (03:06)
[2018-10-02] MEDS ORDERED: ABIL1TAB11 PO (03:06)
[2018-10-02] MEDS ORDERED: SERT-138 PO (03:11)
[2018-10-02] MEDS ORDERED: NICO1KIT TOP (03:11)
[2018-10-02] MEDS ORDERED: PROC10TA4 PO (03:11)
[2018-10-02] MEDS ORDERED: BENGGEL2 TOP (03:11)
[2018-10-02] MEDS ORDERED: TYLE650T35 PO (03:11)
[2018-10-02] MEDS ORDERED: ACET-683 PO (03:11)
[2018-10-02 03:23] LABS: VENOUS BASE EXCESS 7.4 (-2.0-2.0); VENOUS HCO3 40.2 MEQ/L (23.0-27.0); VENOUS O2 SATURATION 97.3 % (60.0-80.0); VENOUS PARTIAL PRESSURE CO2 101.3 mmHg (38.0-50.0); VENOUS PH 7.216 UNITS (7.330-7.430); VENOUS STANDARD HCO3 31.2 MEQ/L; VENOUS TOTAL CO2 43.3 MEQ/L (24.0-28.0)
[2018-10-02] MEDS ORDERED: ACETAMINOPHEN TAB 650MG DOSE (2X325MG) PO ONE (03:45)
[2018-10-02 03:49] LABS: BASO # 0.1 10^3/uL (0.0-0.2); BASO % 0.6 % (0.0-1.0); EOS # 0.1 10^3/uL (0.0-0.50); EOS % 0.9 % (0.0-3.0); HEMATOCRIT 50.6 % (36.0-47.0); HEMOGLOBIN 15.9 g/dl (12.0-15.5); LYMPH # 2.6 10^3/uL (1.5-4.5); LYMPH % 19.3 % (24.0-44.0); MEAN CORPUSCULAR HEMOGLOBIN 30.5 pg (27.0-33.0); MEAN CORPUSCULAR HGB CONC 31.4 g/dl (32.0-36.5); MEAN CORPUSCULAR VOLUME 97.1 fl (80.0-96.0); MONO # 0.8 10^3/uL (0.0-0.8); MONO % 6.1 % (0.0-5.0); NEUTROPHILS # 9.7 10^3/uL (1.8-7.7); NEUTROPHILS % 72.5 % (36.0-66.0); PLATELET COUNT, AUTOMATED 280 10^3/uL (150-450); RED BLOOD COUNT 5.21 10^6/uL (4.00-5.40); WHITE BLOOD COUNT 13.4 10^3/uL (4.0-10.0)
[2018-10-02 03:58] LABS: BLOOD UREA NITROGEN 10 MG/DL (7-18); CALCIUM LEVEL 9.1 MG/DL (8.8-10.2); CARBON DIOXIDE LEVEL 37 MEQ/L (21-32); CHLORIDE LEVEL 96 MEQ/L (98-107); CPK CREATINE PHOSPHOKINASE 80 U/L (26-192); CREATININE FOR GFR 0.56 MG/DL (0.55-1.30); GLOMERULAR FILTRATION RATE > 60.0 (>45); GLUCOSE, FASTING 252 MG/DL (70-100); MB/CK RELATIVE INDEX 4.88 (< OR =4); POTASSIUM SERUM 4.3 MEQ/L (3.5-5.1); SODIUM LEVEL 140 MEQ/L (136-145); TROPONIN I < 0.02 NG/ML (< 0.10)
--- NOTE | 2018-10-02 05:35 | HPEPDOC ---
General Date of Admission October 02, 2018 at 02:13 Chief Complaint The patient is a 62-year-old female admitted with a reason for visit of Copd Wi th Acute Exacerbation. Source: Patient, RN/, Old records History of Present Illness Ms. Zavala is a 62 years old smoker with O2 and steroid-dependent COPD. She presented to ER overnight with c/o SOB. Pt reports feeling SOB for two days and progressively worsening. Also reports dry cough and wheezing, but fever or chills. On arrival to ER, pt was in respiratory distress, she was appropriately treated with nebs, IV steroid and IV Mg. She is improved, but still wheezing a litlle, and has mild dyspnea at rest. Her O2 need is currently 4L, which is hig her than her baseline 2L. ABG shows respiratory acidosis, pCO2 of 64, pH 7.27. CXR is normal. Mild Leucocytosis in CBC. Home Medications Scheduled Aripiprazole (Abilify) 5 Mg Tablet, 2.5 MG PO QHS, (Reported) Aspirin (Aspirin EC) 81 Mg Tabec, 81 MG PO DAILY, (Reported) Atorvastatin Calcium (Lipitor) 80 Mg Tab, 80 MG PO QHS, (Reported) Bisoprolol Fumarate (Bisoprolol Fumarate) 5 Mg Tab, 2.5 MG PO DAILY, (Reported) Duloxetine Hcl (Duloxetine HCl) 60 Mg Cap, 60 MG PO DAILY, (Reported) Ergocalciferol (Vitamin D2) (Drisdol) 50,000 Unit Cap, 50,000 UNIT PO 1XWK, (Reported) FRIDAYS Fluticasone Propion/Salmeterol (Advair Hfa 230-21 Mcg Inhaler) 1 Aer Aer, 2 PUFF INH BID, (Reported) Fluticasone Propionate (Flonase Allergy Relief) 50 Mcg/Act Spr, 1 SPRAY NA DAILY, (Reported) Gabapentin (Gabapentin) 800 Mg Tab, 800 MG PO TID, (Reported) Levothyroxine Sodium (Levoxyl) 25 Mcg Tab, 25 MCG PO DAILY, (Reported) Metformin HCl (Metformin HCl) 1,000 Mg Tab, 1,000 MG PO BID, (Reported) Nicotine (Nicotine Patch) 1 Each Patch.dysq, 1 PATCH TOP DAILY, (Reported) Pantoprazole Sodium (Pantoprazole Sodium) 40 Mg Tab, 40 MG PO DAILY, (Reported) Prednisone (Prednisone) 5 Mg Tab, 5 MG PO DAILY, (Reported) Sertraline HCl (Sertraline HCl) 100 Mg Tablet, 100 MG PO QHS, (Reported) Sucralfate (Sucralfate) 1 Gm Tab, 1 GM PO AC, (Reported) Tiotropium [place] (Spiriva) 18 Mcg Cap, 1 PUFF INH DAILY, (Reported) Scheduled PRN Acetaminophen (Tylenol Arthritis) 650 Mg Tablet.er, 1,300 MG PO QHS PRN for PAIN, (Reported) Acetaminophen (Acetaminophen) 500 Mg Tablet, 1,000 MG PO Q6H PRN for PAIN, (Reported) Albuterol Sulfate (Ventolin Hfa) 108 Mcg/Act Aer, 2 PUFFS INH Q4H PRN for SHORTNESS OF BREATH, (Reported) Hydrocodone/Acetaminophen ([place] 7.5-325 Tablet) 1 Each Tablet, 1 TAB PO BID PRN for PAIN, (Reported) Hydroxyzine Pamoate (Hydroxyzine Pamoate) 25 Mg Cap, 25 MG PO TID PRN for ANXIETY, (Reported) Ipratropium/Albuterol Sulfate (Iprat-Albut 0.5-3(2.5) mg/3 ml) 1 Juanita Juanita, 1 JUANITA INH QID PRN for SOB/WHEEZING, (Reported) Menthol (Bengay) 5% Gel..gram., 1 APLCT TOP QID PRN for PAIN, (Reported) APPLIES TO NECK AND BACK Prochlorperazine Maleate (Prochlorperazine Maleate) 10 Mg Tablet, 10 MG PO TID PRN for NAUSEA OR VOMITING, (Reported) Allergies Coded Allergies: No Known Allergies (Unverified , 08/22/18) Past Medical History Medical History Chronic obstructive pulmonary disease (COPD) Chronic respiratory failure with hypoxia and hypercarbia SUYAPA does not use CPAP Nonobstructive Coronary artery disease with history of NSTEMI 2012 Degenerative disc disease with chronic musculoskeletal pain and muscle spasm. Chronic low back pain on narcotics Sacroilliac joint pain and myofascial pain. Fibromyalgia. Osteoarthritis Gastroesophageal reflux disease (GERD). Hypertension. Hyperlipidemia Diabetes Obesity Hypothyroidism. Adrenal nodule on the right, seems to be adrenal adenoma. Lung nodule Major depressive disorder without any psychotic features. Bipolar, anxiety disorder, adjustment disorder Canabis use disorder. Surgical History Cholecystectomy. Cardiac catheterization without stent. History of breast biopsy. Dilation and curettage. Tubal ligation. Tonsillectomy. Exploratory laparotomy. Family History Significant Family History: Cancer, Heart disease Social History * Smoker: former Smoker Alcohol: Denies Drugs: denies A-FIB/CHADSVASC A-FIB History Current/History of A-Fib/PAF?: No Review of Systems Constitutional: Denies: Chills, Fever ENT: Denies: Head Aches Skin: Denies: Rash, Lesions Pulmonary: Reports: Dyspnea, Cough Cardiovascular: Denies: Chest Pain Gastrointestinal: Denies: Nausea Genitourinary: Denies: Dysuria Neurological: Denies: Weakness Psych: Reports: Mood Normal Physical Examination General Exam: Positive: Alert, Cooperative, No Acute Distress Eye Exam: Positive: PERRLA ENT Exam: Positive: Atraumatic Neck Exam: Positive: Supple; Negative: JVD Chest Exam: Positive: Wheezing (mild wheezing, diffuse) Heart Exam: Positive: Rate Normal, Regular Rhythm Abdomen Exam: Positive: Normal bowel sounds, Soft, Tenderness Extremity Exam: Negative: Cyanosis, Edema Skin Exam: Negative: Rash, Breakdown Neuro Exam: Positive: Normal Speech Psych Exam: Positive: Mental status NL (sleeping, arousable; answeres simple q uestions), Mood NL, Oriented x 3 Vital Signs Vital Signs Date Time Temp Pulse Resp B/P (MAP) Pulse Ox O2 Delivery O2 Flow Rate FiO2 10/02/18 04:45 113 2 167/79 (108) 93 Nasal Cannula 6.0 10/02/18 02:23 97.0 Laboratory Data Labs 24H Laboratory Tests 2 10/02/18 02:21: Immature Granulocyte % (Auto) 0.6, White Blood Count 13.4H, Red Blood Count 5.21, Hemoglobin 15.9H, Hematocrit 50.6H, Mean Corpuscular Volume 97.1H, Mean Corpuscular Hemoglobin 30.5, Mean Corpuscular Hemoglobin Concent 31.4L, Red Cell Distribution Width 13.2, Platelet Count 280, Neutrophils (%) (Auto) 72.5H, Lymphocytes (%) (Auto) 19.3L, Monocytes (%) (Auto) 6.1H, Eosinophils (%) (Auto) 0.9, Basophils (%) (Auto) 0.6, Neutrophils # (Auto) 9.7H, Lymphocytes # (Auto) 2.6, Monocytes # (Auto) 0.8, Eosinophils # (Auto) 0.1, Basophils # (Auto) 0.1, Nucleated Red Blood Cells % (auto) 0.0, Blood Gas Bicarbonate Standard 31.2, Venous Blood pH 7.216L, Venous Blood Partial Pressure CO2 101.3H, Venous Blood Partial Pressure O2 144.0H, Venous Blood Total Carbon Dioxide 43.3H, Venous Blood HCO3 40.2H, Venous Blood Oxygen Saturation 97.3H, Venous Blood Base Excess 7.4H, Anion Gap 7L, Glomerular Filtration Rate > 60.0, Blood Urea Nitrogen 10, Creatinine 0.56, Sodium Level 140, Potassium Level 4.3, Chloride Level 96L, C arbon Dioxide Level 37H, Calcium Level 9.1, Total Creatine Kinase 80, Creatine Kinase MB 4.0H, Creatine Kinase MB Relative Index 4.88H, Troponin I < 0.02 CBC/BMP Laboratory Tests 10/02/18 02:21 Red Blood Count 5.21, Mean Corpuscular Volume 97.1 H, Mean Corpuscular Hemoglobin 30.5, Mean Corpuscular Hemoglobin Concent 31.4 L, Red Cell Distribution Width 13.2, Neutrophils (%) (Auto) 72.5 H, Lymphocytes (%) (Auto) 19.3 L, Monocytes (%) (Auto) 6.1 H, Eosinophils (%) (Auto) 0.9, Basophils (%) (Auto) 0.6, Neutrophils # (Auto) 9.7 H, Lymphocytes # (Auto) 2.6, Monocytes # (Auto) 0.8, Eosinophils # (Auto) 0.1, Basophils # (Auto) 0.1, Calcium Level 9.1, Total Creatine Kinase 80 Microbiology Microbiology 10/02/18 Blood Culture, Received Pending 10/02/18 Blood Culture, Received Pending Assessment/Plan COPD Exacerbation with Acute on Chronic Hypoxic And Hypercapnic Respiratory Fa ilure - Improving after ER treatment, but still off baseline - Keep in observation - IV steroid, nebs; O2 supplement to keep sat 88-92% SUYAPA - CPAP when sleeping DM - SSI; home meds Plan / VTE VTE Prophylaxis Ordered?: No VTE Exclusion Mechanical Proph: Low Risk for VTE VTE Exclusion Pharmacological: At Low Risk for VTE ALICIA SHAH MD October 02, 2018 05:35
[2018-10-02 05:50] LABS: ABG BASE EXCESS 0.7 (-2.0-2.0); ABG HCO3 29.4 MEQ/L (22.0-26.0); ABG O2 SATURATION 94.6 % (95.0-99.0); ABG PARTIAL PRESSURE O2 79.5 mmHg (75.0-100.0); ABG TOTAL CO2 31.4 MEQ/L (23.0-31.0); ABG pH (ARTERIAL) 7.276 UNITS (7.350-7.450)
[2018-10-02 05:53] LABS: ABG PARTIAL PRESSURE CO2 64.7 mmHg (35.0-45.0)
[2018-10-02] MEDS ORDERED: ALBUTEROL SULFATE 2.5 MG/0.5 ML INH NEB SOLN NEB PRN (06:00)
[2018-10-02] MEDS ORDERED: MAALOX 30 ML SUSP *UDC PO PRN (06:00)
[2018-10-02] MEDS ORDERED: MOM 30ML SUSPENSION UDC PO PRN (06:00)
--- NOTE | 2018-10-02 06:06 | ECGEPIP ---
Stationary ECG Study [facility] - ED Test Date: 2018-10-02 Pat Name: MIGUEL NAQVI Department: Room: - Gender: F Sales Advisor: [facility] : [id number] Requested By: RADHA COUGHLIN Order Number: [id number] Reading MD: Gamal Neal Measurements Intervals [place] Rate: 121 P: 82 MT: 171 QRS: 31 QRSD: 94 T: 81 QT: 312 QTc: 443 Interpretive Statements SINUS TACHYCARDIA POSSIBLE ANTERIOR MYOCARDIAL INFARCTION, OF INDETERMINATE AGE RATE CHANGE COMPARED TO 09/11/18 Electronically Signed On 10-02-2018 6:05:33 EDT by Gamal Neal
[2018-10-02] MEDS ORDERED: GLUCOSE 4 GM CHEW TABLET PO PRN (06:30)
[2018-10-02] MEDS ORDERED: DEXTROSE 50% 50 ML SYRINGE IV PRN (06:30)
[2018-10-02] MEDS ORDERED: GLUCAGON FOR INJ 1 MG VIAL (J1610) SC PRN (06:30)
[2018-10-02] MEDS: HumaLOG INSULIN (NovoLOG) PER UNIT SC SCH ×4 (07:18→22:04)
--- NOTE | 2018-10-02 08:21 | REP ---
Portable chest x-ray: Single view. History: Dyspnea. Comparison study: September 11, 2018. Findings: EKG monitoring electrodes are seen. There is oxygen delivery tubing. Minimal linear plate-like atelectasis is seen in the left base just above the diaphragm. Lung cherry are otherwise clear. Heart is not felt to be enlarged. Pulmonary vasculature is not increased. No significant bony abnormality. Impression: Linear plate-like atelectasis left base. Otherwise no acute disease. Electronically Signed by Ponce Higgins MD 10/02/2018 08:12 A
[2018-10-02 09:50] VITALS: BP 143/84
[2018-10-02] MEDS: IPRATROPIUM 0.5MG/ALBUTEROL 2.5MG INH SOL UD 3ML (DUONEB)(J7620) NEB SCH ×3 (10:02→19:39)
[2018-10-02] MEDS ORDERED: PILL CRUSHER/CUTTER 1 EACH XX PRN (10:15)
[2018-10-02] MEDS: DULoxetine 30 MG CAP (CYMBALTA) PO SCH (10:26)
[2018-10-02] MEDS: BISOPROLOL FUMARATE 5 MG TAB PO SCH (10:26)
[2018-10-02] MEDS: LEVOTHYROXINE 25MCG TABLET (0.025MG) PO SCH (10:26)
[2018-10-02] MEDS: ASPIRIN 81 MG ENTERIC TAB PO SCH (10:26)
[2018-10-02] MEDS: PANTOPRAZOLE 40MG TAB (PROTONIX) PO SCH (10:26)
[2018-10-02] MEDS: NICOTINE 14 MG/24 HR TRANSDERMAL TD SCH (10:27)
[2018-10-02] MEDS: methylPREDNISolone INJ 125 MG/2 ML VIAL (J2930) IV SCH ×2 (10:27→18:18)
[2018-10-02] MEDS: GABAPENTIN 400 MG CAP PO SCH ×3 (10:27→20:49)
[2018-10-02] MEDS: HEPARIN SOD (PORCINE) 5000 UNITS/ML VIAL SC SCH ×2 (10:27→20:50)
[2018-10-02 14:00] VITALS: BP 139/99
--- NOTE | 2018-10-02 14:35 | IPN ---
DATE: 10/02/2018 SUBJECTIVE: Patient is seen and examined in the room today. Patient stated her respiratory distress started approximately two days ago. The patient admitted that she continued to smoke after discharge. The patient stated she did not follow-up with her primary care provider after discharge approximately two weeks ago. Denies any fevers or chills. Patient did complain of increased wheezes. The patient had yellowish to whitish sputum production. OBJECTIVE: VITAL SIGNS: Temperature 96.6, pulse 110, respiratory rate 28, blood pressure 143/84, pulse oximetry 95% with 4 liters nasal cannula. GENERAL: Mild distress secondary to persistent shortness of breath, alert and awake. HEENT: Normocephalic, atraumatic. Extraocular motors grossly intact. CARDIOVASCULAR: Positive S1, S2, regular rate. LUNGS: Positive expiratory wheezes. No crackles appreciated. ABDOMEN: Soft, nontender, nondistended, bowel sounds present. EXTREMITIES: No edema. LABORATORY DATA: WBC 13.4, hemoglobin 15.9, hematocrit 50.6, platelet count 280. Sodium 140, potassium 4.3, chloride 96, carbon dioxide 37, BUN 10, creatinine 0.56, GFR greater than 60, fasting glucose 252, calcium 9.1, total CK is 80, troponin I is less than 0.02. ABG demonstrated a pH of 7.276, pCO2 64.7, pO2 is 79.5. Blood cultures are pending times two sets. ASSESSMENT/PLAN: 1. Chronic obstructive pulmonary disease (COPD) exacerbation. At baseline patient is oxygen dependent. Patient has had multiple admissions in the last two months. The patient was just recently discharged from [facility] on September 17, 2018 for COPD exacerbation. Continue on nebulizer treatments, IV steroids. Respiratory panel is negative. The patient continues to smoke which complicates the patient's care. The patient did not have follow-up with her primary care provider or her coil taper since her discharge. 2. Obstructive sleep apnea (SUYAPA) not on CPAP. On SUYAPA protocol. 3. Non-ST elevation myocardial infarction (NSTEMI) in 2012 on aspirin, Lipitor, Zebeta. 4. Diabetes, on insulin. Consistent carbohydrate diet. 5. Hypothyroidism, on Synthroid. 6. Fibromyalgia, on gabapentin. 7. Hypertension on bisoprolol. 8. Anxiety/depression. 9. History of cocaine and marijuana use. 10. Pulmonary nodules. Most recent CT was performed on 10/22/2018. Nodules have diameter up to 9 mm, stable compared to 2016. Continue outpatient follow-up. 11. Noncompliance complicating the patient's care. 12. Deep venous thrombosis (DVT) prophylaxis, on heparin. MTDD
[2018-10-02] MEDS: SERTRALINE 100 MG TAB PO SCH (20:49)
[2018-10-02] MEDS: ATORVASTATIN 20 MG TAB PO SCH (20:49)
[2018-10-02] MEDS: ANEXSIA, NORCO 7.5MG/325MG TABLET(HYDROCODONE/APAP) PO PRN (20:50)
[2018-10-02 22:00] VITALS: BP 130/67
[2018-10-03] MEDS: IPRATROPIUM 0.5MG/ALBUTEROL 2.5MG INH SOL UD 3ML (DUONEB)(J7620) NEB SCH ×4 (00:22→19:09)
[2018-10-03] MEDS: methylPREDNISolone INJ 125 MG/2 ML VIAL (J2930) IV SCH ×3 (02:11→17:00)
[2018-10-03 06:00] VITALS: BP 139/74
[2018-10-03 06:32] LABS: HEMATOCRIT 42.4 % (36.0-47.0); MEAN CORPUSCULAR HEMOGLOBIN 29.8 pg (27.0-33.0); MEAN CORPUSCULAR HGB CONC 31.8 g/dl (32.0-36.5); MEAN CORPUSCULAR VOLUME 93.6 fl (80.0-96.0); PLATELET COUNT, AUTOMATED 261 10^3/uL (150-450); RED BLOOD COUNT 4.53 10^6/uL (4.00-5.40); WHITE BLOOD COUNT 10.6 10^3/uL (4.0-10.0)
[2018-10-03 06:45] LABS: HEMOGLOBIN 13.5 g/dl (12.0-15.5)
[2018-10-03 06:58] LABS: BLOOD UREA NITROGEN 11 MG/DL (7-18); CALCIUM LEVEL 8.8 MG/DL (8.8-10.2); CARBON DIOXIDE LEVEL 37 MEQ/L (21-32); CHLORIDE LEVEL 94 MEQ/L (98-107); CREATININE FOR GFR 0.56 MG/DL (0.55-1.30); GLOMERULAR FILTRATION RATE > 60.0 (>45); GLUCOSE, FASTING 325 MG/DL (70-100); POTASSIUM SERUM 4.3 MEQ/L (3.5-5.1); SODIUM LEVEL 135 MEQ/L (136-145)
[2018-10-03] MEDS: NICOTINE 14 MG/24 HR TRANSDERMAL TD SCH (08:28)
[2018-10-03] MEDS: DULoxetine 30 MG CAP (CYMBALTA) PO SCH (08:28)
[2018-10-03] MEDS: HumaLOG INSULIN (NovoLOG) PER UNIT SC SCH ×4 (08:28→21:02)
[2018-10-03] MEDS: LEVOTHYROXINE 25MCG TABLET (0.025MG) PO SCH (08:29)
[2018-10-03] MEDS: GABAPENTIN 400 MG CAP PO SCH ×3 (08:29→21:01)
[2018-10-03] MEDS: BISOPROLOL FUMARATE 5 MG TAB PO SCH (08:29)
[2018-10-03] MEDS: ASPIRIN 81 MG ENTERIC TAB PO SCH (08:29)
[2018-10-03] MEDS: PANTOPRAZOLE 40MG TAB (PROTONIX) PO SCH (08:29)
[2018-10-03] MEDS: HEPARIN SOD (PORCINE) 5000 UNITS/ML VIAL SC SCH ×2 (08:30→21:01)
[2018-10-03] MEDS: hydrOXYzine 25 MG TAB PO PRN (13:26)
[2018-10-03] MEDS: ANEXSIA, NORCO 7.5MG/325MG TABLET(HYDROCODONE/APAP) PO PRN (13:27)
[2018-10-03 14:00] VITALS: BP 135/73
--- NOTE | 2018-10-03 17:00 | IPNPDOC ---
Text Note Date of Service The patient was seen on 10/03/18. NOTE SUBJECTIVE: Patient is seen and examined in the room today. Patient states her breathing is improving. The neb treatment is helping her too. She became tearful during the encounter because she feels she is overwhelmed by all her medical conditions and the outpatient followups. OBJECTIVE: VITAL SIGNS: Listed below. GENERAL: Tearful. No distress. alert and awake. HEENT: Normocephalic, atraumatic. Extraocular motors grossly intact. CARDIOVASCULAR: Positive S1, S2, regular rate. LUNGS: Decreased breath sound. positive expiratory wheezes. No crackles appreciated. ABDOMEN: Soft, nontender, nondistended, bowel sounds present. EXTREMITIES: No edema. LABORATORY DATA: Listed below. Blood cultures are pending times two sets. Respiratory panel is negative ASSESSMENT/PLAN: #. Chronic obstructive pulmonary disease (COPD) exacerbation. - At baseline patient is oxygen dependent, 2L NC. Patient has had multiple admissions in the last two months. Continue on nebulizer treatments, IV steroids. Respiratory panel is negative. - The patient continues to smoke which complicates the patient's care. The patient did not have follow-up with her primary care provider or her animal husbandry technician since her discharge. #. Obstructive sleep apnea (SUYAPA) not on CPAP. On SUYAPA protocol. #. Non-ST elevation myocardial infarction (NSTEMI) in 2013 - on aspirin, Lipitor, Zebeta. #. Diabetes, on insulin. Consistent carbohydrate diet. #. Hypothyroidism, on Synthroid. #. Fibromyalgia, on gabapentin. #. Hypertension on bisoprolol. #. Anxiety/depression. On Abilify, Cymbalta, and Zoloft #. History of cocaine and marijuana use. #. Pulmonary nodules. - Most recent CT was performed on 10/22/2018. Nodules have diameter up to 9 mm, stable compared to 2016. Continue outpatient follow-up. #. Noncompliance complicating the patient's care. #. Deep venous thrombosis (DVT) prophylaxis, on heparin. A-FIB/CHADSVASC A-FIB History Current/History of A-Fib/PAF?: No VS,Fishbone, I+O VS, Fishbone, I+O Laboratory Tests 10/03/18 06:16 Red Blood Count 4.53, Mean Corpuscular Volume 93.6, Mean Corpuscular Hemoglobin 29.8, Mean Corpuscular Hemoglobin Concent 31.8 L, Red Cell Distribution Width 13.2, Calcium Level 8.8 Vital Signs Date Time Temp Pulse Resp B/P (MAP) Pulse Ox O2 Delivery O2 Flow Rate FiO2 10/03/18 14:00 98.6 98 17 135/73 (93) 89 4.0 10/02/18 08:29 Nasal Cannula I&O- Last 24 Hours up to 6 AM 10/03/18 06:00 Intake Total 2250 ml Output Total 400 ml Balance 1850 ml GRETCHEN CAIN DO October 03, 2018 17:00
[2018-10-03] MEDS: ATORVASTATIN 20 MG TAB PO SCH (21:01)
[2018-10-03] MEDS: SERTRALINE 100 MG TAB PO SCH (21:01)
[2018-10-03 22:00] VITALS: BP 128/63
[2018-10-04] MEDS: IPRATROPIUM 0.5MG/ALBUTEROL 2.5MG INH SOL UD 3ML (DUONEB)(J7620) NEB SCH ×4 (01:02→19:54)
[2018-10-04] MEDS: methylPREDNISolone INJ 125 MG/2 ML VIAL (J2930) IV SCH ×2 (02:33→10:10)
[2018-10-04 06:00] VITALS: BP 154/76
[2018-10-04] MEDS: HumaLOG INSULIN (NovoLOG) PER UNIT SC SCH ×4 (07:56→21:41)
[2018-10-04 08:05] LABS: HEMATOCRIT 40.1 % (36.0-47.0); HEMOGLOBIN 12.8 g/dl (12.0-15.5); MEAN CORPUSCULAR HEMOGLOBIN 30.5 pg (27.0-33.0); MEAN CORPUSCULAR HGB CONC 31.9 g/dl (32.0-36.5); MEAN CORPUSCULAR VOLUME 95.5 fl (80.0-96.0); PLATELET COUNT, AUTOMATED 264 10^3/uL (150-450); WHITE BLOOD COUNT 12.4 10^3/uL (4.0-10.0)
[2018-10-04 08:25] LABS: BLOOD UREA NITROGEN 14 MG/DL (7-18); CALCIUM LEVEL 8.5 MG/DL (8.8-10.2); CARBON DIOXIDE LEVEL 37 MEQ/L (21-32); CHLORIDE LEVEL 93 MEQ/L (98-107); GLOMERULAR FILTRATION RATE > 60.0 (>45); GLUCOSE, FASTING 363 MG/DL (70-100); MAGNESIUM LEVEL 1.9 MG/DL (1.8-2.4); POTASSIUM SERUM 4.3 MEQ/L (3.5-5.1); SODIUM LEVEL 134 MEQ/L (136-145)
[2018-10-04] MEDS: NICOTINE 14 MG/24 HR TRANSDERMAL TD SCH (10:10)
[2018-10-04] MEDS: PANTOPRAZOLE 40MG TAB (PROTONIX) PO SCH (10:12)
[2018-10-04] MEDS: DULoxetine 30 MG CAP (CYMBALTA) PO SCH (10:12)
[2018-10-04] MEDS: ASPIRIN 81 MG ENTERIC TAB PO SCH (10:12)
[2018-10-04] MEDS: BISOPROLOL FUMARATE 5 MG TAB PO SCH (10:12)
[2018-10-04] MEDS: GABAPENTIN 400 MG CAP PO SCH ×3 (10:12→21:39)
[2018-10-04] MEDS: HEPARIN SOD (PORCINE) 5000 UNITS/ML VIAL SC SCH ×2 (10:13→21:40)
[2018-10-04] MEDS: LEVOTHYROXINE 25MCG TABLET (0.025MG) PO SCH (10:13)
[2018-10-04 14:00] VITALS: BP 135/64
--- NOTE | 2018-10-04 14:44 | IPNPDOC ---
Text Note Date of Service The patient was seen on 10/04/18. NOTE SUBJECTIVE: Patient is seen and examined in the room today. Patient states she had poor night sleep. Every time when she tried to lay down to sleep, the oxygen sensor alarm would go off. Oxygen requirement increased at night. She states she is going to contact her outpatient assistant case manager for CPAP mask arrangement and medical provider appointments. OBJECTIVE: VITAL SIGNS: Listed below. GENERAL: No distress. alert and awake. HEENT: Normocephalic, atraumatic. Extraocular motors grossly intact. CARDIOVASCULAR: Positive S1, S2, regular rate. LUNGS: Decreased breath sound. No significant wheeze. No crackles appreciated. ABDOMEN: Soft, nontender, nondistended, bowel sounds present. EXTREMITIES: No edema. LABORATORY DATA: Listed below. Blood cultures are pending times two sets. Respiratory panel is negative ASSESSMENT/PLAN: #. Chronic obstructive pulmonary disease (COPD) exacerbation. - At baseline patient is oxygen dependent, 2L NC. Patient has had multiple admissions in the last two months. Continue on nebulizer treatments, IV steroids. Respiratory panel is negative. - The patient continues to smoke which complicates the patient's care. According to patient, she did not follow up with her primary care provider or her engine tester since her discharge. #. Obstructive sleep apnea (SUYAPA) not on CPAP. - There is problem with her CPAP mask at home. - On SUYAPA protocol. Nocturnal pulse oximetry ordered. #. Non-ST elevation myocardial infarction (NSTEMI) in 2013 - on aspirin, Lipitor, Zebeta. #. Diabetes, on insulin. Consistent carbohydrate diet. #. Hypothyroidism, on Synthroid. #. Fibromyalgia, on gabapentin. #. Hypertension on bisoprolol. #. Anxiety/depression. On Abilify, Cymbalta, and Zoloft #. History of cocaine and marijuana use. #. Pulmonary nodules. - Most recent CT was performed on 10/22/2018. Nodules have diameter up to 9 mm, stable compared to 2016. Continue outpatient follow-up. #. Noncompliance complicating the patient's care. #. Deep venous thrombosis (DVT) prophylaxis, on heparin. A-FIB/CHADSVASC A-FIB History Current/History of A-Fib/PAF?: No VS,Fishbone, I+O VS, Fishbone, I+O Laboratory Tests 10/04/18 07:47 Red Blood Count 4.20, Mean Corpuscular Volume 95.5, Mean Corpuscular Hemoglobin 30.5, Mean Corpuscular Hemoglobin Concent 31.9 L, Red Cell Distribution Width 13.3, Calcium Level 8.5 L Vital Signs Date Time Temp Pulse Resp B/P (MAP) Pulse Ox O2 Delivery O2 Flow Rate FiO2 10/04/18 10:12 86 154/76 10/04/18 07:50 2.0 10/04/18 06:00 96.6 18 93 10/02/18 08:29 Nasal Cannula I&O- Last 24 Hours up to 6 AM 10/04/18 06:00 Intake Total 3400 ml Balance 3400 ml GRETCHEN CAIN DO October 04, 2018 14:44
[2018-10-04] MEDS: predniSONE 20 MG TAB PO SCH (21:39)
[2018-10-04] MEDS: ATORVASTATIN 20 MG TAB PO SCH (21:39)
[2018-10-04] MEDS: SERTRALINE 100 MG TAB PO SCH (21:39)
[2018-10-04 22:00] VITALS: BP 165/82
[2018-10-05] MEDS: IPRATROPIUM 0.5MG/ALBUTEROL 2.5MG INH SOL UD 3ML (DUONEB)(J7620) NEB SCH ×4 (02:48→19:21)
[2018-10-05 06:00] VITALS: BP 169/82
[2018-10-05] MEDS: NICOTINE 14 MG/24 HR TRANSDERMAL TD SCH (08:32)
[2018-10-05] MEDS: ASPIRIN 81 MG ENTERIC TAB PO SCH (08:32)
[2018-10-05] MEDS: GABAPENTIN 400 MG CAP PO SCH ×3 (08:32→20:57)
[2018-10-05] MEDS: HumaLOG INSULIN (NovoLOG) PER UNIT SC SCH ×4 (08:32→20:57)
[2018-10-05] MEDS: LEVOTHYROXINE 25MCG TABLET (0.025MG) PO SCH (08:32)
[2018-10-05] MEDS: BISOPROLOL FUMARATE 5 MG TAB PO SCH (08:33)
[2018-10-05] MEDS: PANTOPRAZOLE 40MG TAB (PROTONIX) PO SCH (08:33)
[2018-10-05] MEDS: DULoxetine 30 MG CAP (CYMBALTA) PO SCH (08:33)
[2018-10-05] MEDS: predniSONE 20 MG TAB PO SCH ×2 (08:33→20:57)
[2018-10-05] MEDS: HEPARIN SOD (PORCINE) 5000 UNITS/ML VIAL SC SCH ×3 (08:33→21:00)
[2018-10-05] MEDS: hydrOXYzine 25 MG TAB PO PRN ×2 (08:35→18:05)
[2018-10-05] MEDS: ANEXSIA, NORCO 7.5MG/325MG TABLET(HYDROCODONE/APAP) PO PRN (08:36)
[2018-10-05] MEDS ORDERED: LEVEMIR (INSULIN DETEMIR) 1 UNITS/0.01ML SC ONE (09:00)
[2018-10-05] MEDS ORDERED: FUROSEMIDE 40 MG TAB PO ONE (10:00)
--- NOTE | 2018-10-05 10:36 | IPNPDOC ---
Date Seen The patient was seen on 10/05/18. Progress Note SUBJECTIVE: Patient is seen and examined at the bedside. Chart has been reviewed. pt continues to be hypoxic with ambulation dropping to 85% on 3liters o2 via nasal cannula. Pt has not seen Dr. Pacheco despite being admitted at least 4x in the past 6months. Per Pulmologist, Dr. Aruna alberto, SLEEP STUDY is an outpt procedure and cannot be done as an inpt. Pt needs cpap. Awaiting PT clearance. Report from last night's noc ox pending. OBJECTIVE: VITAL SIGNS: Listed below. GENERAL: No distress. alert and awake. HEENT: Normocephalic, atraumatic. Extraocular motors grossly intact. CARDIOVASCULAR: Positive S1, S2, regular rate. LUNGS: Decreased breath sound. No significant wheeze. No crackles appreciated. ABDOMEN: Soft, nontender, nondistended, bowel sounds present. EXTREMITIES: No edema. LABORATORY DATA, MICROBIOLOGY, IMAGING STUDIES: PLS SEE BELOW ASSESSMENT/PLAN: Ms. Zavala is a 62 years old smoker with O2 and steroid-dependent COPD. She presented to ER overnight with c/o SOB. Pt reports feeling SOB for two days and progressively worsening. Also reports dry cough and wheezing, but fever or chills. On arrival to ER, pt was in respiratory distress, she was appropriately treated with nebs, IV steroid and IV Mg. She is improved, but still wheezing a litlle, and has mild dyspnea at rest. Her O2 need is currently 4L, which is higher than her baseline 2L. ABG shows respiratory acidosis, pCO2 of 64, pH 7.27. CXR is normal. Mild Leucocytosis in CBC. Acute on Chronic obstructive pulmonary disease (COPD) exacerbation. - At baseline patient is oxygen dependent, 2L NC. Patient has had multiple admissions in the last two months. Continue on nebulizer treatments, IV steroids. Respiratory panel is negative. - The patient continues to smoke which complicates the patient's care. According to patient, she did not follow up with her primary care provider or her certified phlebotomy technician since her discharge. -due to endstage copd on 2liters at rest and needs 3liters with ambulation per pulm, dr. salomon, appropriate for dnr dni and hospice referral outpt [facility] dr. pacheco Chronic hypoxic respiratory failure due to endstage copd on 2liters at rest and needs 3liters with ambulation per pulm, dr. salomon, appropriate for dnr dni and hospice referral outpt [facility] dr. pacheco Obstructive sleep apnea (SUYAPA) not on CPAP. - There is problem with her CPAP mask at home. - On SUYAPA protocol. Nocturnal pulse oximetry pending report Moderate Pulmonary HTN due to endstage copd per dr. salomon, appropriate for hospice referral obesity BMI 34 complicating care Non-ST elevation myocardial infarction (NSTEMI) in 2013 - on aspirin, Lipitor, Zebeta. Diabetes, on insulin. Consistent carbohydrate diet. steroid induced hyperglycemia Hypothyroidism, on Synthroid. Fibromyalgia, on gabapentin. Hypertension on bisoprolol. Anxiety/depression. On Abilify, Cymbalta, and Zoloft History of cocaine and marijuana use. Pulmonary nodules. - Most recent CT was performed on 10/22/2018. Nodules have diameter up to 9 mm, stable compared to 2016. Continue outpatient follow-up. Noncompliance complicating the patient's care. Deep venous thrombosis (DVT) prophylaxis, on heparin. disposition: Per Pulmologist, Dr. Salomon, SLEEP STUDY is an outpt procedure and cannot be done as an inpt. Pt needs cpap. Awaiting PT clearance. Report from last night's noc ox pending. A-FIB/CHADSVASC A-FIB History Current/History of A-Fib/PAF?: No Current Oral Anticoagulant The: No VS, I&O, 24H, Fishbone Vital Signs/I&O Vital Signs Date Time Temp Pulse Resp B/P (MAP) Pulse Ox O2 Delivery O2 Flow Rate FiO2 10/05/18 09:06 18 10/05/18 08:33 79 169/82 10/05/18 06:00 97.4 92 3.0 10/04/18 21:45 Room Air 21 I&O- Last 24 Hours up to 6 AM 10/05/18 05:59 Intake Total 4140 ml Output Total 6000 ml Balance -1860 ml Laboratory Data 24H LABS Laboratory Tests 2 10/04/18 11:47: Bedside Glucose (Misc Panel) 385H 10/04/18 17:03: Bedside Glucose (Misc Panel) 345H 10/04/18 20:14: Bedside Glucose (Misc Panel) 345H 5/14/19 07:44: Bedside Glucose (Misc Panel) 298H 10/05/18 08:43: VM-[id number]-Type Natriuretic Peptide 286H Microbiology Microbiology 10/02/18 Blood Culture - Preliminary, Resulted No Growth after 72 hours. All specime... 10/02/18 Blood Culture - Preliminary, Resulted No Growth after 72 hours. All specime... 10/02/18 Respiratory Virus Panel (PCR) ([facility]) - Final, Complete DAMIR HURLEY MD October 05, 2018 10:30
[2018-10-05 10:39] LABS: ABG BASE EXCESS 8.2 (-2.0-2.0); ABG HCO3 34.4 MEQ/L (22.0-26.0); ABG O2 SATURATION 93.1 % (95.0-99.0); ABG PARTIAL PRESSURE CO2 54.4 mmHg (35.0-45.0); ABG PARTIAL PRESSURE O2 67.3 mmHg (75.0-100.0); ABG STANDARD HCO3 31.8 MEQ/L (22.0-26.0); ABG TOTAL CO2 36.1 MEQ/L (23.0-31.0); ABG pH (ARTERIAL) 7.419 UNITS (7.350-7.450)
[2018-10-05 11:50] LABS: HEMOGLOBIN A1c 8.6 %
[2018-10-05 14:00] VITALS: BP 144/68
[2018-10-05] MEDS: ACETAMINOPHEN TAB 650MG DOSE (2X325MG) PO PRN (18:05)
[2018-10-05] MEDS: ATORVASTATIN 20 MG TAB PO SCH (20:58)
[2018-10-05] MEDS: SERTRALINE 100 MG TAB PO SCH (20:58)
[2018-10-05 22:00] VITALS: BP 168/92
[2018-10-06] MEDS: ANEXSIA, NORCO 7.5MG/325MG TABLET(HYDROCODONE/APAP) PO PRN ×2 (00:55→13:43)
[2018-10-06] MEDS: IPRATROPIUM 0.5MG/ALBUTEROL 2.5MG INH SOL UD 3ML (DUONEB)(J7620) NEB SCH ×3 (02:37→13:37)
[2018-10-06 06:00] VITALS: BP 152/86
[2018-10-06] MEDS: HumaLOG INSULIN (NovoLOG) PER UNIT SC SCH ×2 (08:43→12:35)
[2018-10-06] MEDS: predniSONE 20 MG TAB PO SCH (08:43)
[2018-10-06] MEDS: NICOTINE 14 MG/24 HR TRANSDERMAL TD SCH (08:43)
[2018-10-06 08:44] VITALS: BP 152/86
[2018-10-06] MEDS: PANTOPRAZOLE 40MG TAB (PROTONIX) PO SCH (08:44)
[2018-10-06] MEDS: ACETAMINOPHEN TAB 650MG DOSE (2X325MG) PO PRN (08:44)
[2018-10-06] MEDS: BISOPROLOL FUMARATE 5 MG TAB PO SCH (08:44)
[2018-10-06] MEDS: LEVOTHYROXINE 25MCG TABLET (0.025MG) PO SCH (08:44)
[2018-10-06] MEDS: DULoxetine 30 MG CAP (CYMBALTA) PO SCH (08:44)
[2018-10-06] MEDS: hydrOXYzine 25 MG TAB PO PRN (08:44)
[2018-10-06] MEDS: GABAPENTIN 400 MG CAP PO SCH (08:45)
[2018-10-06] MEDS: ASPIRIN 81 MG ENTERIC TAB PO SCH (08:45)
[2018-10-06] MEDS: HEPARIN SOD (PORCINE) 5000 UNITS/ML VIAL SC SCH (08:45)
[2018-10-06] MEDS ORDERED: PRED10TA2 PO (11:06)
--- NOTE | 2018-10-06 11:06 | IPN ---
DATE OF SERVICE: 10/06/2018 NOTE: I am dictating this note to clarify some information, as it has recently been raised about her need for treatment of her obstructive sleep apnea. Constance was diagnosed with obstructive sleep apnea 06/16/2010 with an apnea-hypopnea index (AHI) of 41.1 and saturation shawn in the low 80th percentile. She underwent a titration study 02/12/2011 with that study showing elimination of disordered breathing events on bilevel therapy with an inspiratory positive airway pressure (IPAP) of 15 and an expiratory positive airway pressure (EPAP) of 10. Apparently, that device was taken for noncompliance. She underwent a repeat polysomnogram for titration 02/24/2013 with that study showing elimination of disordered breathing events, continuous positive airway pressure (CPAP) at 9 cm of water pressure. Apparently, this device was also confiscated for noncompliance. While there was concern that CPAP and/or bilevel may help her as an outpatient, and it is always our advice that sleep apnea be treated, she has not used that device during her four hospitalizations. Those studies were over August 01 and August 22 and September 11 and October 02. One time she did have acute and chronic hypercapnic respiratory failure but declined noninvasive mechanical ventilation (NIMV) and was treated with Vapotherm. As she has not required this therapy in-house, it is not clear that it is going to prevent future exacerbations, but again it should be treated. She will need a repeat titration study to determine which device and what is appropriate. Dr. Pacheco, who is her outpatient route service representative, is aware of this; and per the triage from yesterday, Ms. Zavala is to call them upon discharge, and they will work on an appointment for her. She last saw Dr. Pacheco in regard to her chronic obstructive pulmonary disease (COPD) on August 26, which was after her first two admissions. He cautioned her at that time that she can anticipate a high probability of future admissions, particularly if she continues to smoke. He was aware at that time she had untreated sleep apnea. That was not part of their discussion, but rather the discussion focused on tobacco cessation. Her FEV1 has been running around the 30th percentile (29% in April 2018 before her exacerbations and 30% in August of 2018 after her first two hospitalizations). This is considered very severe COPD.
--- NOTE | 2018-10-06 19:53 | DS.PDOC ---
Discharge Summary General Date of Admission October 02, 2018 at 16:52 Date of Discharge OCTOBER 06, 2018 Discharge Summary NUTRITION DIRECTOR: WAFER FABRICATION OPERATOR: DR. SALOMON DISCHARGE DIAGNOSES: ACUTE COPD EXACERBATION CHRONIC HYPOXIC AND HYPERCARBIC RESPIRATORY FAILURE ON SUPPLEMENTAL OXYGEN ACTIVE TOBACCO ABUSE CHRONIC HYPERCAPNIA OBESITY SUSPECTED SUYAPA DISCHARGE MEDICATIONS: PLS SEE BELOW DISCHARGE INSTRUCTIONS: STOP SMOKING CIGARETTES [facility] WITHIN 5 DAYS FOR SLEEP STUDY, PCP 1 WK. HISTORY OF PRESENTING ILLNESS: Ms. Zavala is a 62 years old smoker with O2 and steroid-dependent COPD. She presented to ER overnight with c/o SOB. Pt reports feeling SOB for two days and progressively worsening. Also reports dry cough and wheezing, but fever or chills. On arrival to ER, pt was in respiratory distress, she was appropriately treated with nebs, IV steroid and IV Mg. She is improved, but still wheezing a litlle, and has mild dyspnea at rest. Her O2 need is currently 4L, which is higher than her baseline 2L. ABG shows respiratory acidosis, pCO2 of 64, pH 7.27. CXR is normal. Mild Leucocytosis in CBC. HOSPITAL COURSE Acute on Chronic end stage obstructive pulmonary disease (COPD) exacerbation. - At baseline patient is oxygen dependent, 2L NC. Patient has had multiple admissions in the last two months. S/P nebulizer treatments, IV steroids. Respiratory panel is negative. - The patient continues to smoke which complicates the patient's care. - Pulm Dr. Salomon recommends: smoking cessation to prevent further copd exacerbation and hospital admissions, sleep study to be set up as outpt. Pt was seen by Dr. Pacheco on 08/26/18 with stable FEV1 for the past year. pt's recurrent admissions are not due to untreated suyapa, but due to active tobacco use. pt has not tried cpap in the past, and despite endstage copd, remains stable. Chronic hypoxic respiratory failure due to endstage copd on 2liters at rest and needs 3liters with ambulation outpt [facility] pacheco Obstructive sleep apnea (SUYAPA) not on CPAP. - There is problem with her CPAP mask at home. - On SUYAPA protocol. outpt [facility] community liaison officer for sleep study Moderate Pulmonary HTN due to endstage copd obesity BMI 34 complicating care Non-ST elevation myocardial infarction (NSTEMI) in 2013 - on aspirin, Lipitor, Zebeta. Diabetes, on insulin. Consistent carbohydrate diet. steroid induced hyperglycemia Hypothyroidism, on Synthroid. Fibromyalgia, on gabapentin. Hypertension on bisoprolol. Anxiety/depression. On Abilify, Cymbalta, and Zoloft History of cocaine and marijuana use. Pulmonary nodules. - Most recent CT was performed on 10/22/2018. Nodules have diameter up to 9 mm, stable compared to 2016. Continue outpatient follow-up. Noncompliance complicating the patient's care. Deep venous thrombosis (DVT) prophylaxis, on heparin. DISCHARGE PHYSICAL EXAMINATION: VITAL SIGNS: Listed below. GENERAL: No distress. alert and awake. HEENT: Normocephalic, atraumatic. Extraocular motors grossly intact. CARDIOVASCULAR: Positive S1, S2, regular rate. LUNGS: Decreased breath sound. No significant wheeze. No crackles appreciated. ABDOMEN: Soft, nontender, nondistended, bowel sounds present. EXTREMITIES: No edema. LABORATORY DATA, MICROBIOLOGY, IMAGING STUDIES: PLS SEE BELOW TIME SPENT ON DISCHARGE: 35 MIN Vital Signs/I&Os Vital Signs Date Time Temp Pulse Resp B/P (MAP) Pulse Ox O2 Delivery O2 Flow Rate FiO2 10/06/18 14:13 18 10/06/18 08:44 86 152/86 10/06/18 07:50 2.0 10/06/18 06:00 97.0 91 10/04/18 21:45 Room Air 21 I&O- Last 24 Hours up to 6 AM 10/06/18 06:00 Intake Total 2340 ml Output Total 6700 ml Balance -4360 ml Laboratory Data Labs 24H Laboratory Tests 2 10/05/18 20:11: Bedside Glucose (Misc Panel) 390H 10/06/18 05:02: Bedside Glucose (Misc Panel) 315H 10/06/18 12:18: Bedside Glucose (Misc Panel) 218H FSBS Laboratory Tests Test 10/05/18 20:11 10/06/18 05:02 10/06/18 12:18 Range/Units Bedside Glucose (Misc Panel) 390 315 218 80-115 MG/DL Microbiology Microbiology 10/02/18 Blood Culture - Preliminary, Resulted No Growth after 72 hours. All specime... 10/02/18 Blood Culture - Preliminary, Resulted No Growth after 72 hours. All specime... 10/02/18 Respiratory Virus Panel (PCR) ([facility]) - Final, Complete Discharge Medications Scheduled Aripiprazole (Abilify) 5 Mg Tablet, 2.5 MG PO QHS, (Reported) Aspirin (Aspirin EC) 81 Mg Tabec, 81 MG PO DAILY, (Reported) Atorvastatin Calcium (Lipitor) 80 Mg Tab, 80 MG PO QHS, (Reported) Bisoprolol Fumarate (Bisoprolol Fumarate) 5 Mg Tab, 2.5 MG PO DAILY, (Reported) Duloxetine Hcl (Duloxetine HCl) 60 Mg Cap, 60 MG PO DAILY, (Reported) Ergocalciferol (Vitamin D2) (Drisdol) 50,000 Unit Cap, 50,000 UNIT PO 1XWK, (Reported) FRIDAYS Fluticasone Propion/Salmeterol (Advair Hfa 230-21 Mcg Inhaler) 1 Aer Aer, 2 PUFF INH BID, (Reported) Fluticasone Propionate (Flonase Allergy Relief) 50 Mcg/Act Spr, 1 SPRAY NA DAILY, (Reported) Gabapentin (Gabapentin) 800 Mg Tab, 800 MG PO TID, (Reported) Levothyroxine Sodium (Levoxyl) 25 Mcg Tab, 25 MCG PO DAILY, (Reported) Metformin HCl (Metformin HCl) 1,000 Mg Tab, 1,000 MG PO BID, (Reported) Nicotine (Nicotine Patch) 1 Each Patch.dysq, 1 PATCH TOP DAILY, (Reported) Pantoprazole Sodium (Pantoprazole Sodium) 40 Mg Tab, 40 MG PO DAILY, (Reported) Prednisone (Prednisone) 5 Mg Tab, 5 MG PO DAILY, (Reported) Prednisone (Prednisone) 10 Mg Tablet, 10 MG PO TAPER Take 4 tabs daily x 3 days, then 3 tabs daily x 3 days, then 2 tabs daily x 3 days, then 1 tab daily x 3 days and stop Sertraline HCl (Sertraline HCl) 100 Mg Tablet, 100 MG PO QHS, (Reported) Sucralfate (Sucralfate) 1 Gm Tab, 1 GM PO AC, (Reported) Tiotropium [place] (Spiriva) 18 Mcg Cap, 1 PUFF INH DAILY, (Reported) Scheduled PRN Acetaminophen (Tylenol Arthritis) 650 Mg Tablet.er, 1,300 MG PO QHS PRN for PAIN, (Reported) Acetaminophen (Acetaminophen) 500 Mg Tablet, 1,000 MG PO Q6H PRN for PAIN, (Reported) Albuterol Sulfate (Ventolin Hfa) 108 Mcg/Act Aer, 2 PUFFS INH Q4H PRN for SHORTNESS OF BREATH, (Reported) Hydrocodone/Acetaminophen ([place] 7.5-325 Tablet) 1 Each Tablet, 1 TAB PO BID PRN for PAIN, (Reported) Hydroxyzine Pamoate (Hydroxyzine Pamoate) 25 Mg Cap, 25 MG PO TID PRN for ANXIETY, (Reported) Ipratropium/Albuterol Sulfate (Iprat-Albut 0.5-3(2.5) mg/3 ml) 1 Juanita Juanita, 1 JUANITA INH QID PRN for SOB/WHEEZING, (Reported) Menthol (Bengay) 5% Gel..gram., 1 APLCT TOP QID PRN for PAIN, (Reported) APPLIES TO NECK AND BACK Prochlorperazine Maleate (Prochlorperazine Maleate) 10 Mg Tablet, 10 MG PO TID PRN for NAUSEA OR VOMITING, (Reported) Allergies Coded Allergies: No Known Allergies (Unverified , 08/22/18) DAMIR HURLEY MD October 06, 2018 19:53
== END 2018-10-06 15:00 | disposition home or self-care (01) | DRG 191 ==
LOC: EDBD 02:12 → M ED 02:12 → M ED INP 02:13 → M MS5PR 09:35 → OBSVTOIN 16:52
PROVIDERS: ADMIT Internal Medicine; ATTEND General Practice
DX: J44.1 Chronic obstructive pulmonary disease with (acute) exacerbation (principal); J96.11 Chronic respiratory failure with hypoxia; J96.12 Chronic respiratory failure with hypercapnia; F17.210 Nicotine dependence, cigarettes, uncomplicated; E66.9 Obesity, unspecified; G47.33 Obstructive sleep apnea (adult) (pediatric); I27.20 Pulmonary hypertension, unspecified; I25.2 Old myocardial infarction; F41.9 Anxiety disorder, unspecified; F32.9 Major depressive disorder, single episode, unspecified; M79.7 Fibromyalgia; E03.9 Hypothyroidism, unspecified; Z79.4 Long term (current) use of insulin; R91.8 Other nonspecific abnormal finding of lung field; Z79.899 Other long term (current) drug therapy; Z79.82 Long term (current) use of aspirin; I25.10 Atherosclerotic heart disease of native coronary artery without angina pectoris; M19.90 Unspecified osteoarthritis, unspecified site; E78.5 Hyperlipidemia, unspecified; K21.9 Gastro-esophageal reflux disease without esophagitis

== ENCOUNTER 2018-10-14 21:12 | Inpatient (IN) | payer MEDICARE, MEDICAID ==
[~2018-10-14] VITALS: Ht 165.1 cm; Wt 94.9 kg
[2018-10-14] MEDS: FORMOTEROL FUMARATE 20 MCG/2 ML INHALATION SOLUTION (PERFOROMIST) INH SCH (20:00)
[2018-10-14] MEDS: BUDESONIDE 0.5 MG/2 ML INHALATION SUSPENSION INH SCH (20:00)
[~2018-10-14 21:12] MED LIST changes: +ACET-683 PO; +BENGGEL2 TOP; +NICO1KIT TOP; +NORC1TAB8 PO; +PROC10TA4 PO; +TYLE650T35 PO
[2018-10-14 21:45] LABS: HEMATOCRIT 47.6 % (36.0-47.0); HEMOGLOBIN 14.9 g/dl (12.0-15.5); MEAN CORPUSCULAR HGB CONC 31.3 g/dl (32.0-36.5); MEAN CORPUSCULAR VOLUME 99.2 fl (80.0-96.0); PLATELET COUNT, AUTOMATED 363 10^3/uL (150-450); WHITE BLOOD COUNT 11.5 10^3/uL (4.0-10.0)
[2018-10-14 22:01] LABS: INR 0.89; PROTHROMBIN TIME 12.1 SECONDS (12.1-14.4)
[2018-10-14 22:02] LABS: PARTIAL THROMBOPLASTIN TIME 25.5 SECONDS (25.4-37.6)
[2018-10-14 22:05] LABS: ATYPICAL LYMPH 1 % (0-5); EOSINOPHILS 1 % (0-5); LYMPHOCYTES 23 % (16-52); MONOCYTES 5 % (0-8); NEUTROPHILS 70 % (35-75); PLATELET ESTIMATE NORMAL (NORMAL)
[2018-10-14 22:06] LABS: POLYCHROMASIA 1+
[2018-10-14] MEDS: IPRATROPIUM 0.5MG/ALBUTEROL 2.5MG INH SOL UD 3ML (DUONEB)(J7620) NEB PRN ×2 (22:10→22:32)
[2018-10-14 22:15] LABS: BLOOD UREA NITROGEN 12 MG/DL (7-18); CALCIUM LEVEL 8.6 MG/DL (8.8-10.2); CARBON DIOXIDE LEVEL 41 MEQ/L (21-32); CHLORIDE LEVEL 96 MEQ/L (98-107); CPK CREATINE PHOSPHOKINASE 48 U/L (26-192); CREATININE FOR GFR 0.64 MG/DL (0.55-1.30); GLOMERULAR FILTRATION RATE > 60.0 (>45); GLUCOSE, FASTING 294 MG/DL (70-100); MB/CK RELATIVE INDEX 3.96 (< OR =4); NT-PRO BNP 126 PG/ML (<125); POTASSIUM SERUM 4.2 MEQ/L (3.5-5.1); SODIUM LEVEL 140 MEQ/L (136-145); TROPONIN I < 0.02 NG/ML (< 0.10)
[2018-10-14 22:25] LABS: ABG BASE EXCESS 9.4 (-2.0-2.0); ABG HCO3 39.8 MEQ/L (22.0-26.0); ABG O2 SATURATION 89.8 % (95.0-99.0); ABG PARTIAL PRESSURE O2 59.7 mmHg (75.0-100.0); ABG TOTAL CO2 42.4 MEQ/L (23.0-31.0); ABG pH (ARTERIAL) 7.291 UNITS (7.350-7.450)
[2018-10-14 22:26] LABS: ABG PARTIAL PRESSURE CO2 84.5 mmHg (35.0-45.0)
[2018-10-14] MEDS ORDERED: LORazepam 1 MG TAB PO ONE (23:00)
[2018-10-14] MEDS ORDERED: NICO1PAT15 TD (23:45)
[2018-10-14] MEDS ORDERED: TIOT18INH INH (23:45)
[2018-10-14] MEDS ORDERED: PRED10TA2 PO (23:45)
[2018-10-14] MEDS ORDERED: NYST1POW9 TOP (23:45)
[2018-10-15 00:36] LABS: ABG BASE EXCESS 7.1 (-2.0-2.0); ABG HCO3 35.9 MEQ/L (22.0-26.0); ABG O2 SATURATION 94.5 % (95.0-99.0); ABG PARTIAL PRESSURE O2 74.2 mmHg (75.0-100.0); ABG STANDARD HCO3 30.9 MEQ/L (22.0-26.0); ABG TOTAL CO2 38.1 MEQ/L (23.0-31.0); ABG pH (ARTERIAL) 7.328 UNITS (7.350-7.450)
[2018-10-15 01:00] VITALS: BP 149/77
[2018-10-15] MEDS: methylPREDNISolone INJ 40 MG/1 ML VIAL (J2920) IV SCH ×4 (01:18→20:29)
[2018-10-15] MEDS: ATORVASTATIN 20 MG TAB PO SCH ×2 (01:18→20:29)
[2018-10-15] MEDS: SERTRALINE 100 MG TAB PO SCH ×2 (01:18→20:29)
[2018-10-15] MEDS ORDERED: GLUCAGON FOR INJ 1 MG VIAL (J1610) SC PRN ×2 (03:30→10:30)
[2018-10-15] MEDS ORDERED: GLUCOSE 4 GM CHEW TABLET PO PRN ×2 (03:30→10:30)
[2018-10-15] MEDS ORDERED: DEXTROSE 50% 50 ML SYRINGE IV PRN ×2 (03:30→10:30)
[2018-10-15] MEDS: LORazepam 1 MG TAB PO PRN ×3 (03:55→20:52)
--- NOTE | 2018-10-15 03:57 | HPEPDOC ---
General Date of Admission October 15, 2018 at 00:22 Date of Service: October 15, 2018 Chief Complaint The patient is a 62-year-old female admitted with a reason for visit of Acute On Chronic Resp Failure W/Hypoxia. Source: Patient, RN/MD, Old records Exam Limitations: Clinical conditions Severity: Severe History of Present Illness 62 year old female with COPD, chronic respiratory failure with hypoxia and hypercarbia, SUYAPA, Bipolar disorder, anxiety, diabetes, Hypertension, Hypothyroid, CAD, obesity presented to the ED for worsening SOB along with increased cough and chest tightness for 3 days which became very bad today. Her oxygen level was down to 84% with her normal oxygen supplementation at home of 2 l. She does not produce much phlegm. Patient was last discharged from the hospital on 10/06/18 She was extremely anxious when she first arrived. She could not talk in full sentences and was using her accessory muscles of respiration. ABG in the ED showed 7.29/ pco2 84, po2 59. She initially refused BIPAP but she was give ativan 1 mg for her anxiety then she agreed to the BIPAP which was started on 11:45 pm , ABG after 1 hour showed definite improvement. She was admitted for acute on chronic hyperarbic and hypoxic respiratory faiure due to COPD exacerbation. Home Medications Scheduled Aripiprazole (Abilify) 5 Mg Tablet, 2.5 MG PO QHS, (Reported) Aspirin (Aspirin EC) 81 Mg Tabec, 81 MG PO DAILY, (Reported) Atorvastatin Calcium (Lipitor) 80 Mg Tab, 80 MG PO QHS, (Reported) Bisoprolol Fumarate (Bisoprolol Fumarate) 5 Mg Tab, 2.5 MG PO DAILY, (Reported) Duloxetine Hcl (Duloxetine HCl) 60 Mg Cap, 60 MG PO DAILY, (Reported) Ergocalciferol (Vitamin D2) (Drisdol) 50,000 Unit Cap, 50,000 UNIT PO 1XWK, (Reported) FRIDAYS Fluticasone Propion/Salmeterol (Advair Hfa 230-21 Mcg Inhaler) 1 Aer Aer, 2 PUFF INH BID, (Reported) Fluticasone Propionate (Flonase Allergy Relief) 50 Mcg/Act Spr, 1 SPRAY NA DAILY, (Reported) Gabapentin (Gabapentin) 800 Mg Tab, 800 MG PO QHS, (Reported) Levothyroxine Sodium (Levoxyl) 25 Mcg Tab, 25 MCG PO DAILY, (Reported) Metformin HCl (Metformin HCl) 1,000 Mg Tab, 1,000 MG PO BID, (Reported) Nicotine (Nicotine Patch) 21 Mg/24 Hr Patch.td24, 21 MG TD DAILY, (Reported) Nystatin (Nystatin Powder) 15 Gm Powder, 1 DOSE TOP QHS, (Reported) USES UNDER BREASTS Pantoprazole Sodium (Pantoprazole Sodium) 40 Mg Tab, 40 MG PO DAILY, (Reported) Prednisone (Prednisone) 10 Mg Tablet, 10 MG PO TAPER, (Reported) 40MG FOR 3 DAYS, 30MG FOR 3 DAYS, 20MG FOR 3 DAYS, 10MG FOR 3 DAYS, THEN STOP. LAST DOSE WAS THE 2ND DOSE OF 30MG. Sertraline HCl (Sertraline HCl) 100 Mg Tablet, 100 MG PO QHS, (Reported) Sucralfate (Sucralfate) 1 Gm Tab, 1 GM PO BID, (Reported) BEFORE BREAKFAST AND DINNER Tiotropium [place] Monohydrate (Spiriva) 18 Mcg Cap.w.dev, 1 INHALATION INH DAILY, (Reported) Scheduled PRN Acetaminophen (Tylenol Arthritis) 650 Mg Tablet.er, 1,300 MG PO QHS PRN for PAIN, (Reported) Acetaminophen (Acetaminophen) 500 Mg Tablet, 1,000 MG PO Q6H PRN for PAIN, (Reported) Albuterol Sulfate (Ventolin Hfa) 108 Mcg/Act Aer, 2 PUFFS INH Q4H PRN for SHORTNESS OF BREATH, (Reported) Hydrocodone/Acetaminophen (Harper 7.5-325 Tablet) 1 Each Tablet, 1 TAB PO BID PRN for PAIN, (Reported) Ipratropium/Albuterol Sulfate (Iprat-Albut 0.5-3(2.5) mg/3 ml) 1 Sommer Sommer, 3 ML INH QID PRN for SOB/WHEEZING, (Reported) Menthol (Bengay) 5% Gel..gram., 1 APLCT TOP QID PRN for PAIN, (Reported) APPLIES TO NECK AND BACK Prochlorperazine Maleate (Prochlorperazine Maleate) 10 Mg Tablet, 10 MG PO TID PRN for NAUSEA OR VOMITING, (Reported) Allergies Coded Allergies: No Known Allergies (Unverified , 08/22/18) Past Medical History Medical History SEVERE Chronic obstructive pulmonary disease (COPD) , Chronic respiratory failure with hypoxia and hypercarbia , SUYAPA does not use CPAP , Nonobstructive Coronary artery disease with history of NSTEMI 2012 , Degenerative disc disease with chronic musculoskeletal pain and muscle spasm , Chronic low back pain on narcotics , Sacroilliac joint pain and myofascial pain , Fibromyalgia. Osteoarthritis Gastroesophageal reflux disease (GERD). Hypertension. Hyperlipidemia Diabetes Obesity Hypothyroidism. Adrenal nodule on the right, seems to be adrenal adenoma. Lung nodule Major depressive disorder without any psychotic features. Bipolar, anxiety disorder, adjustment disorder Canabis use disorder. Surgical History Cholecystectomy. Cardiac catheterization without stent. History of breast biopsy. Dilation and curettage. Tubal ligation. Tonsillectomy. Exploratory laparotomy. 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) A-FIB/CHADSVASC A-FIB History Current/History of A-Fib/PAF?: No Review of Systems Constitutional: Reports: Weakness, Fatigue; Denies: Chills, Fever, Night Sweats Eyes: Denies: Pain, Vision change ENT: Denies: Head Aches, Ear Pain, Dysphagia Skin: Denies: Rash, Lesions, Breakdown Pulmonary: Reports: Dyspnea, Cough Cardiovascular: Reports: Chest Pain, Palpitations Gastrointestinal: Denies: Nausea, Vomiting, Abdominal Pain, Diarrhea Genitourinary: Denies: Dysuria, Frequency, Incontinence, Retention Musculoskeletal: Denies: Neck Pain, Back Pain, Joint Pain, Muscle Pain, Spasms Neurological: Denies: Weakness, Numbness, Incoordination, Change in speech, Confusion, Seizures, Other Symptoms Psych: Reports: Anxiety, Depression Physical Examination General Exam: Positive: Alert, Cooperative, Moderate Distress Eye Exam: Positive: PERRLA, Conjunctiva & lids normal, EOMI; Negative: Sclera icteric Chest Exam: Positive: Diminished Heart Exam: Positive: Tachycardic, Regular Rhythm; Negative: Normal S1, Normal S2, Gallops, Murmurs, Rubs Telemetry: Positive: No significant arrhythmia Abdomen Exam: Positive: Normal bowel sounds, Soft; Negative: Tenderness, Hepatospenomegaly Extremity Exam: Positive: Edema (trace); Negative: Clubbing, Cyanosis, Tenderness, Swelling Skin Exam: Positive: Nl turgor and temperature; Negative: Breakdown, Lesion Vital Signs Vital Signs Date Time Temp Pulse Resp B/P (MAP) Pulse Ox O2 Delivery O2 Flow Rate FiO2 10/15/18 01:15 92 35 10/15/18 01:00 97.2 104 21 149/77 (101) 10/14/18 21:53 Nasal Cannula 6.0 Laboratory Data Labs 24H Laboratory Tests 2 10/14/18 21:37: Nucleated Red Blood Cells % (auto) 0.0, Neutrophils 70, Lymphocytes (Manual) 23, Monocytes (Manual) 5, Eosinophils (Manual) 1, Atypical Lymphocytes 1, Platelet Estimate NORMAL, Polychromasia 1+, Basophilic Stippling 1+, Anion Gap 3L, Glomerular Filtration Rate > 60.0, Blood Urea Nitrogen 12, Creatinine 0.64, Sodium Level 140, Potassium Level 4.2, Chloride Level 96L, Carbon Dioxide Level 41H, Calcium Level 8.6L, Total Creatine Kinase 48, Creatine Kinase MB 2.0, Creatine Kinase MB Relative Index 3.96, Troponin I < 0.02, MD-Tak-S-Type Natriuretic Peptide 126H, Thyroid Stimulating Hormone (TSH) 1.900 10/14/18 21:40: Prothrombin Time 12.1, Prothromb Time International Ratio 0.89, Activated Partial Thromboplast Time 25.5 10/14/18 22:11: Blood Gas Bicarbonate Standard 33.0H, Arterial Blood pH 7.291L, Arterial Blood Partial Pressure CO2 84.5*H, Arterial Blood Partial Pressure O2 59.7L, Arterial Blood Total CO2 42.4H, Arterial Blood HCO3 39.8H, Arterial Blood Base Excess 9.4H, Arterial Blood Oxygen Saturation 89.8L 10/15/18 00:26: Blood Gas Bicarbonate Standard 30.9H, Arterial Blood pH 7.328L, Arterial Blood Partial Pressure CO2 70.0*H, Arterial Blood Partial Pressure O2 74.2L, Arterial Blood Total CO2 38.1H, Arterial Blood HCO3 35.9H, Arterial Blood Base Excess 7.1H, Arterial Blood Oxygen Saturation 94.5L CBC/BMP Laboratory Tests 10/14/18 21:37 Red Blood Count 4.80, Mean Corpuscular Volume 99.2 H, Mean Corpuscular Hemoglobin 31.0, Mean Corpuscular Hemoglobin Concent 31.3 L, Red Cell Distribution Width 13.8, Calcium Level 8.6 L, Total Creatine Kinase 48 Microbiology Microbiology 10/15/18 Respiratory Virus Panel (PCR) (TERRANCE) - Final, Complete Assessment/Plan 62 year old female current smoker with COPD, chronic respiratory failure with hypoxia and hypercarbia, SUYAPA, Bipolar disorder, anxiety, diabetes, Hypertension, Hypothyroid, CAD, obesity presented to the ED for worsening SOB along with increased cough and chest tightness for 3 days which became very bad today. Her oxygen level was down to 84% with her normal oxygen supplementation at home of 2 l. She does not produce much phlegm. Patient was last discharged from the hospital on 10/06/18 She was extremely anxious when she first arrived. She could not talk in full sentences and was using her accessory muscles of respiration. ABG in the ED showed 7.29/ pco2 84, po2 59. She initially refused BIPAP but she was give ativan 1 mg for her anxiety then she agreed to the BIPAP which was started on 11:45 pm , ABG after 1 hour showed definite improvement. She was admitted for acute on chronic hypercarbic and hypoxic respiratory faiure due to COPD exacerbation. Acute on Chronic respiratory failure with hypercarbia and hypoxia due to COPD exacerbation albuterol, spiriva, formoterol, budesonide, methyl prednisone Continue BIPAP 16/10 with 30% Fio2, maintian spO2 at 87% to 89% patient continues to smoke has been counselled that she needs to quit smoking SUYAPA does not use CPAP due to claustrophobia She was give 2 devices over the past 8 years but both were taken away because of noncompliance. continue oxygen supplementation Nonobstructive Coronary artery disease with history of NSTEMI 2012 continue bisoprolol, statin, asa Degenerative disc disease /Chronic low back pain /Sacroiliac joint pain and myofascial pain/ osteoarthritis hold narcotics till abg improves to baseline. toradol prn. Fibromyalgia. continue cymbalta, gabapentin Gastroesophageal reflux disease (GERD). continue PPI Hypertension. continue bisoprolol Hyperlipidemia continue statin Diabetes will give lispro and levemir in hospital Obesity complicating care Hypothyroidism. continue Synthroid Major depressive disorder without any psychotic features /Bipolar/anxiety disorder/adjustment disorder abilify. xanax 0.25 mg prn DVT prophylaxis ordered. Plan / VTE VTE Prophylaxis Ordered?: Yes OLIVIA PORTER MD October 15, 2018 03:57
[2018-10-15 04:00] VITALS: BP 143/69
[2018-10-15] MEDS ORDERED: ALPRAZolam 0.25 MG TAB PO PRN (04:00)
[2018-10-15] MEDS ORDERED: KETOROLAC 30 MG/ML VIAL (J1885) IV PRN (04:00)
[2018-10-15 04:30] VITALS: O2SAT 91
[2018-10-15] MEDS: SODIUM CHLORIDE HYPERTONIC 3% 15ML NEB SOL INH SCH ×6 (04:34→23:39)
[2018-10-15] MEDS: ALBUTEROL SULFATE 2.5 MG/0.5 ML INH NEB SOLN NEB SCH ×6 (04:34→23:39)
[2018-10-15] MEDS: LEVOTHYROXINE 25MCG TABLET (0.025MG) PO SCH (05:59)
[2018-10-15] MEDS ORDERED: HumaLOG INSULIN (NovoLOG) PER UNIT SC SCH (06:00)
--- NOTE | 2018-10-15 07:31 | ECGEPIP ---
[facility] - ED Test Date: 2018-10-14 Pat Name: MIGUEL NAQVI Department: Room: [place] [address] Gender: Female Resin Shaver: dorcas : 1955 Requested By: RONNELL Jose Order Number: [id number] Reading MD: Vidya Villavicencio Measurements Intervals [place] Rate: 110 P: 71 IL: 148 QRS: 57 QRSD: 102 T: 73 QT: 327 QTc: 444 Interpretive Statements SINUS TACHYCARDIA POSSIBLE ANTERIOR MYOCARDIAL INFARCTION, OF INDETERMINATE AGE DECREASED RATE 10/02/18 Electronically Signed on 10-15-2018 7:31:30 EDT by Vidya Villavicencio
--- NOTE | 2018-10-15 08:02 | REP ---
Clinical: Shortness of breath. Technique: PA and lateral. Comparison: 10/02/2018. Findings: Mediastinum and cardiac silhouette are within normal limits and stable. Lung cherry are relatively clear and without acute consolidation, effusion or pneumothorax. Subtle chronic changes at the bases cannot be excluded. Skeletal structures intact. Impression: No obvious focal consolidation. Mild chronic basilar changes. Electronically Signed by Michael Vasques MD 10/15/2018 07:53 A
[2018-10-15] MEDS: BUDESONIDE 0.5 MG/2 ML INHALATION SUSPENSION INH SCH ×2 (08:48→19:53)
[2018-10-15] MEDS ORDERED: LEVEMIR (INSULIN DETEMIR) 1 UNITS/0.01ML SC SCH ×2 (09:00)
[2018-10-15] MEDS: TIOTROPIUM INHALER/CAPSULE (SPIRIVA) INH SCH (09:06)
[2018-10-15 09:25] LABS: ABG HCO3 37.9 MEQ/L (22.0-26.0); ABG O2 SATURATION 95.7 % (95.0-99.0); ABG STANDARD HCO3 33.8 MEQ/L (22.0-26.0); ABG pH (ARTERIAL) 7.378 UNITS (7.350-7.450)
[2018-10-15 09:27] LABS: ABG PARTIAL PRESSURE CO2 65.9 mmHg (35.0-45.0)
[2018-10-15] MEDS: ENOXAPARIN 40 MG/0.4 ML SYRINGE (J1650) SC SCH (10:06)
[2018-10-15] MEDS: ASPIRIN 81 MG ENTERIC TAB PO SCH (10:07)
[2018-10-15] MEDS: PANTOPRAZOLE 40MG TAB (PROTONIX) PO SCH (10:07)
[2018-10-15] MEDS: BISOPROLOL FUMARATE 5 MG TAB PO SCH (10:07)
[2018-10-15] MEDS: DULoxetine 30 MG CAP (CYMBALTA) PO SCH (10:07)
--- NOTE | 2018-10-15 10:42 | CCN ---
DATE OF SERVICE: 10/15/2018 CRITICAL CARE TIME: 45 minutes (this excludes all procedures). Constance is a 62-year-old female with end-stage lung disease with multiple readmissions recently for hypercarbic respiratory failure. Unfortunately, she is an active smoker and is noncompliant with treatment of her obstructive sleep apnea. Appears that she had an exacerbation. She has no evidence of infection. She had no new cough that she is aware of although her history on presentation yesterday suggested increased cough. I was asked to see your today as she required bilevel positive airway pressure (BiPAP) for hypercarbic respiratory failure. This morning on arrival she is sleeping but easily arousable to voice. She apparently yesterday was in quite a bit of respiratory stress, was unable to talk in full sentences and using accessory muscles for respirations. This has resolved. She is able to speak full sentences. She is not using any accessory muscles currently while on bilevel noninvasive therapy. Because of her severe anxiety, she was given benzodiazepines by the primary care team. She denies chest pain. She has had no cough recently. She has not moved out of bed, so she states she cannot comment on her degree of shortness of breath. She has no abdominal discomfort but does complain of thirst. PHYSICAL EXAMINATION: Temperature is 97.8. Pulse is 103. Respiratory rate is 22. Blood pressure is 137/80. Oxygen saturation is 90% on 0.35 FiO2 on bilevel noninvasive therapy currently at 16/10. General: Steroid facies. Some facial swelling. Sclerae are clear and anicteric. Pupils equal, react to light. Mucous membranes are moist without lesions. Oropharynx without erythema or exudate. Neck is supple. No tracheal deviation or mass. Lymphs: No cervical supraclavicular or axillary adenopathy. Cardiac: Distant S1, S2, without audible murmur, rub or gallop. No elevated jugular venous pulse (JVP). Minimal peripheral edema. Pulmonary: Decreased breath sounds throughout, without rales, rhonchi or wheezes. No dullness to percussion. Abdomen is protuberant, soft, tympanic without discernible hepatosplenomegaly. No bruits or large vessel in abdomen. Extremities: No cyanosis, clubbing or edema. Skin is pale without rash, jaundice or bruising. Neurologic: No evidence unilateral weakness or tremor. Musculoskeletal: Fairly well-developed. No evidence of muscle wasting. Laboratory evaluation shows a white blood cell count 11.5, hemoglobin 14.9, platelet count of 363 with a sodium of 140, potassium 4.2, chloride 96, bicarbonate 41, BUN of 12, creatinine of 0.64 with a glucose of 294. Arterial blood gas this morning shows a pH of 7.3, pCO2 of 66 and pAO2 of 81. Viral PCR is negative. Chest x-ray on admission shows no pneumonia. IMPRESSION: Chronic obstructive pulmonary disease (COPD) exacerbation without obvious provoking factor likely due to end-stage lung disease. The patient has had multiple admissions recently. I do not believe she is a candidate for Daliresp despite these recurrent admissions due to her history of bipolar disease as Daliresp can be associated with severe depression. Will continue on bilevel noninvasive therapy during times of sleep. I believe a trial off bilevel is warranted given the fact that her arterial blood gas is now compensated. She should continue inhaled therapy. She should quit smoking and she will be counseled on this.
[2018-10-15] MEDS: FORMOTEROL FUMARATE 20 MCG/2 ML INHALATION SOLUTION (PERFOROMIST) INH SCH ×2 (11:35→19:53)
[2018-10-15] MEDS: HumaLOG INSULIN (NovoLOG) PER UNIT SC SCH ×3 (11:52→20:46)
[2018-10-15 12:00] VITALS: BP 134/74
[2018-10-15] MEDS: LEVEMIR (INSULIN DETEMIR) 1 UNITS/0.01ML SC SCH ×2 (12:50→20:46)
[2018-10-15 16:00] VITALS: BP 135/68
[2018-10-15 20:00] VITALS: BP 130/64
[2018-10-16] VITALS (7 sets, daily range): BP systolic 119–162; BP diastolic 65–80
[2018-10-16] MEDS: LORazepam 1 MG TAB PO PRN ×3 (00:59→20:00)
[2018-10-16] MEDS: methylPREDNISolone INJ 40 MG/1 ML VIAL (J2920) IV SCH ×4 (01:00→20:00)
[2018-10-16] MEDS: ALBUTEROL SULFATE 2.5 MG/0.5 ML INH NEB SOLN NEB SCH ×5 (04:14→19:44)
[2018-10-16] MEDS: SODIUM CHLORIDE HYPERTONIC 3% 15ML NEB SOL INH SCH ×5 (04:14→19:38)
[2018-10-16 05:20] LABS: BASO % 0.1 % (0.0-1.0); HEMATOCRIT 41.7 % (36.0-47.0); LYMPH # 0.8 10^3/uL (1.5-4.5); LYMPH % 5.1 % (24.0-44.0); MEAN CORPUSCULAR HEMOGLOBIN 29.4 pg (27.0-33.0); MEAN CORPUSCULAR HGB CONC 31.2 g/dl (32.0-36.5); MEAN CORPUSCULAR VOLUME 94.3 fl (80.0-96.0); MONO # 0.4 10^3/uL (0.0-0.8); MONO % 2.6 % (0.0-5.0); NEUTROPHILS # 14.8 10^3/uL (1.8-7.7); NEUTROPHILS % 90.7 % (36.0-66.0); PLATELET COUNT, AUTOMATED 381 10^3/uL (150-450); RED BLOOD COUNT 4.42 10^6/uL (4.00-5.40); WHITE BLOOD COUNT 16.3 10^3/uL (4.0-10.0)
[2018-10-16 05:28] LABS: BLOOD UREA NITROGEN 13 MG/DL (7-18); CALCIUM LEVEL 8.3 MG/DL (8.8-10.2); CARBON DIOXIDE LEVEL 38 MEQ/L (21-32); CHLORIDE LEVEL 95 MEQ/L (98-107); GLOMERULAR FILTRATION RATE > 60.0 (>45); GLUCOSE, FASTING 290 MG/DL (70-100); POTASSIUM SERUM 4.2 MEQ/L (3.5-5.1); SODIUM LEVEL 137 MEQ/L (136-145)
[2018-10-16] MEDS: LEVOTHYROXINE 25MCG TABLET (0.025MG) PO SCH (05:56)
[2018-10-16] MEDS: BUDESONIDE 0.5 MG/2 ML INHALATION SUSPENSION INH SCH ×2 (07:20→19:38)
[2018-10-16] MEDS: FORMOTEROL FUMARATE 20 MCG/2 ML INHALATION SOLUTION (PERFOROMIST) INH SCH ×2 (07:20→19:38)
[2018-10-16] MEDS: TIOTROPIUM INHALER/CAPSULE (SPIRIVA) INH SCH (07:20)
[2018-10-16] MEDS: HumaLOG INSULIN (NovoLOG) PER UNIT SC SCH ×4 (08:14→20:48)
[2018-10-16] MEDS: DULoxetine 30 MG CAP (CYMBALTA) PO SCH (08:15)
[2018-10-16] MEDS: ASPIRIN 81 MG ENTERIC TAB PO SCH (08:15)
[2018-10-16] MEDS: PANTOPRAZOLE 40MG TAB (PROTONIX) PO SCH (08:15)
[2018-10-16] MEDS: BISOPROLOL FUMARATE 5 MG TAB PO SCH (08:16)
[2018-10-16] MEDS: LEVEMIR (INSULIN DETEMIR) 1 UNITS/0.01ML SC SCH ×2 (08:18→20:48)
[2018-10-16] MEDS: ENOXAPARIN 40 MG/0.4 ML SYRINGE (J1650) SC SCH (08:18)
--- NOTE | 2018-10-16 09:33 | CCN ---
DATE: 10/16/2018 Ms. Zavala was sitting upright in her bed on my arrival to her room. She is able to speak full sentences without pausing. She has a minimal nonproductive cough. She is wondering if her cat is bothering her breathing. She has not been smoking since the time of her last discharge. She is requesting to use Chantix. I discussed with her the potential side effects including mood alteration and suicidal ideation. She states she believes she will be good monitor or herself and seek attention if any of these symptoms occurr. Overnight, she was only able to tolerate 2 hours of bilevel noninvasive therapy. This morning, she has no headache. Denies any chest discomfort. She is eating breakfast well without any nausea, vomiting or GI complaints. PHYSICAL EXAMINATION: Temperature is 97.9, pulse is 84, respiratory rate is 22, blood pressure is 162/80, and oxygen saturation is 91% on 0.30 FIO2. General: Awake, alert and oriented. Affect was appropriate. Nutrition and hygiene are good. HEENT: Steroid facies. Tongue is midline. Mucous membranes are moist. Mallampati four. Neck is supple. No tracheal deviation or mass. No discernible jugular venous pulse (JVP) given habitus. Lymphs: No cervical, supraclavicular or axillary adenopathy. Cardiac: Distant S1 and S2 without audible murmur or gallop. PMI is difficult to palpate due to body habitus. Pulmonary: Decreased breath sounds throughout all lung cherry without rales, rhonchi or wheezes. There is prolongation of expiratory phase. There is no accessory muscle use. Abdomen: Obese, soft, nontender, nondistended. No hepatosplenomegaly, masses or hernia Extremities: No cyanosis, clubbing or edema. Skin is pale without rash, jaundice or bruising. Neurologic: No unilateral weakness or tremor. Musculoskeletal: Normal muscle tone without any evidence of joint effusion or recent fracture. LABORATORY EVALUATION: Shows sodium 137, potassium 4.2, chloride 95, bicarb 38, BUN 13, creatinine 0.5, and glucose of 290. White blood cell count is elevated at 16.3 with a hemoglobin of 13.0, platelet count of 381, and 91% neutrophilia. IMPRESSION: 1. Acute on chronic respiratory failure without obvious provoking factor. Her newly developed leukocytosis is likely induced from IV steroids. Will continue to monitor for ongoing infection. Will repeat arterial blood gas today to ensure adequate compensation. Will attempt mobilization and have the patient out of bed and ambulating. Will continue nebulized therapy and taper prednisone as tolerated. 2. Leukocytosis, likely steroid induced. No evidence of ongoing infection. 3. Nicotine dependence. Extensively counseled. The patient wants to try Chantix as she had tried patches in the past and was unable to "keep them on". Extensively counseled on the potential risk of Chantix, especially given her bipolar disease. 4. Deep vein thrombosis (DVT) prophylaxis with Lovenox. 5. Gastrointestinal (GI) prophylaxis with Protonix. The patient is to stay on Protonix while on high-dose steroids.
[2018-10-16 09:42] LABS: ABG BASE EXCESS 9.3 (-2.0-2.0); ABG O2 SATURATION 92.5 % (95.0-99.0); ABG PARTIAL PRESSURE O2 68.8 mmHg (75.0-100.0); ABG STANDARD HCO3 32.9 MEQ/L (22.0-26.0); ABG pH (ARTERIAL) 7.374 UNITS (7.350-7.450)
[2018-10-16 10:00] LABS: ABG PARTIAL PRESSURE CO2 64.9 mmHg (35.0-45.0)
--- NOTE | 2018-10-16 10:01 | IPNPDOC ---
Subjective Date Seen The patient was seen on 10/16/18. Subjective Chief Complaint/HPI A lot better improved air exchange General: Denies: ROS Unobtainable, Chills, Night Sweats, Fatigue, Malaise, Normal Appetite, Other Symptoms Constitutional: Denies: Chills, Fever, Malaise, Night Sweats, Weakness, Fatigue, Weight Loss, Lethargy, Other Eyes: Denies: Pain, Vision change, Conjunctivae inflammation, Eyelid inflammation, Redness, Other ENT: Denies: Head Aches, Ear Pain, Dysphagia, Sinus Congestion, Post Nasal Drip, Sore Throat, Epistaxis, Other Symptoms Skin: Denies: Rash, Lesions, Jaundice, Bruising, Itching, Dry, Breakdown, Nail Changes, Other Pulmonary: Reports: Dyspnea; Denies: Cough, Pleuritic Chest Pain, Other Symptoms Cardiovascular: Denies: Chest Pain, Palpitations, Orthopnea, Paroxysmal Noc. Dyspnea, Edema, Lt Headedness, Other Symptoms Gastrointestinal: Denies: Nausea, Vomiting, Abdominal Pain, Diarrhea, Constipation, Melena, Hematochezia, Other Symptoms Genitourinary: Denies: Dysuria, Frequency, Incontinence, Hematuria, Retention, Other Symptoms Hematologic: Denies: Bruising, Bleeding Excessively, Petecchia, Purpura, Enlarged Lymph Nodes, Other Hematologic Endocrine: Denies: Polydipsia, Polyphagia, Polyuria, Heat Intolerance, Cold Intolerance, Other Endocrine Sx Musculoskeletal: Denies: Neck Pain, Back Pain, Shoulder Pain, Arm Pain, Hand Pain, Leg Pain, Foot Pain, Joint Pain, Muscle Pain, Spasms, Other Symptoms Neurological: Denies: Weakness, Numbness, Incoordination, Change in speech, Confusion, Seizures, Other Symptoms Psych: Denies: Mood Normal, Anxiety, Depression, Memory Issues, Thoughts of Self Harm, Anger, Thoughts of Harming Other, Other Psych Objective Physical Examination General Exam: Positive: Alert, Cooperative, Moderate Distress Eye Exam: Positive: PERRLA, Conjunctiva & lids normal, EOMI Chest Exam: Positive: Diminished Heart Exam: Positive: Tachycardic, Regular Rhythm Telemetry: Positive: No significant arrhythmia Abdomen Exam: Positive: Normal bowel sounds, Soft Extremity Exam: Positive: Edema Skin Exam: Positive: Nl turgor and temperature Assessment /Plan Problems (1) COPD with acute exacerbation Status: Acute Problem Text: Shital is leukocytosis was most likely secondary to IV steroids, reactive in nature will not start antibiotics Repeat CBC, CMP in a.m. Continue IV steroids, nebulizer treatment Will slowly start tapering her steroids to by mouth prednisone O2 support Further, as per pulmonary, follow-up appreciated Continue all present meds (2) Acute on chronic respiratory failure with hypercapnia Status: Acute Problem Text: As above Plan/VTE VTE Prophylaxis Ordered?: Yes VS, I&O, 24H, Fishbone Vital Signs/I&O Vital Signs Date Time Temp Pulse Resp B/P (MAP) Pulse Ox O2 Delivery O2 Flow Rate FiO2 10/16/18 08:16 84 162/80 10/16/18 08:00 2.0 10/16/18 08:00 97.2 22 92 10/16/18 04:00 30 10/15/18 04:30 BIPAP/CPAP I&O- Last 24 Hours up to 6 AM 10/16/18 06:00 Intake Total 2840 ml Output Total 2300 ml Balance 540 ml Laboratory Data 24H LABS Laboratory Tests 2 10/15/18 11:43: Bedside Glucose (Misc Panel) 428H 10/15/18 17:11: Bedside Glucose (Misc Panel) 349H 10/15/18 20:33: Bedside Glucose (Misc Panel) 285H 10/16/18 04:33: Immature Granulocyte % (Auto) 1.5, White Blood Count 16.3H, Red Blood Count 4.42, Hemoglobin 13.0, Hematocrit 41.7, Mean Corpuscular Volume 94.3, Mean Corpuscular Hemoglobin 29.4, Mean Corpuscular Hemoglobin Concent 31.2L, Red Cell Distribution Width 13.7, Platelet Count 381, Neutrophils (%) (Auto) 90.7H, Lymphocytes (%) (Auto) 5.1L, Monocytes (%) (Auto) 2.6, Eosinophils (%) (Auto) 0.0, Basophils (%) (Auto) 0.1, Neutrophils # (Auto) 14.8H, Lymphocytes # (Auto) 0.8L, Monocytes # (Auto) 0.4, Eosinophils # (Auto) 0.0, Basophils # (Auto) 0.0, Nucleated Red Blood Cells % (auto) 0.0, Anion Gap 4L, Glomerular Filtration Rate > 60.0, Blood Urea Nitrogen 13, Creatinine 0.50L, Sodium Level 137, Potassium Level 4.2, Chloride Level 95L, Carbon Dioxide Level 38H, Calcium Level 8.3L 10/16/18 09:24: CBC/BMP Laboratory Tests 10/16/18 04:33 Red Blood Count 4.42, Mean Corpuscular Volume 94.3, Mean Corpuscular Hemoglobin 29.4, Mean Corpuscular Hemoglobin Concent 31.2 L, Red Cell Distribution Width 13.7, Neutrophils (%) (Auto) 90.7 H, Lymphocytes (%) (Auto) 5.1 L, Monocytes (%) (Auto) 2.6, Eosinophils (%) (Auto) 0.0, Basophils (%) (Auto) 0.1, Neutrophils # (Auto) 14.8 H, Lymphocytes # (Auto) 0.8 L, Monocytes # (Auto) 0.4, Eosinophils # (Auto) 0.0, Basophils # (Auto) 0.0, Calcium Level 8.3 L Microbiology Microbiology 10/15/18 Respiratory Virus Panel (PCR) (TERRANCE) - Final, Complete JESSICA FOSTER MD October 16, 2018 10:01
[2018-10-16] MEDS: VARENICLINE 0.5 MG TABLET PO SCH (10:05)
[2018-10-16] MEDS: ATORVASTATIN 20 MG TAB PO SCH (20:00)
[2018-10-16] MEDS: SERTRALINE 100 MG TAB PO SCH (20:00)
[2018-10-17] VITALS: BP 126/70
[2018-10-17] MEDS: ALBUTEROL SULFATE 2.5 MG/0.5 ML INH NEB SOLN NEB SCH ×7 (00:17→23:26)
[2018-10-17] MEDS: SODIUM CHLORIDE HYPERTONIC 3% 15ML NEB SOL INH SCH ×7 (00:17→23:26)
[2018-10-17] MEDS: methylPREDNISolone INJ 40 MG/1 ML VIAL (J2920) IV SCH ×2 (02:25→08:19)
[2018-10-17 04:00] VITALS: BP 133/87
[2018-10-17] MEDS: LEVOTHYROXINE 25MCG TABLET (0.025MG) PO SCH (05:00)
[2018-10-17 05:23] LABS: BASO % 0.2 % (0.0-1.0); HEMATOCRIT 43.1 % (36.0-47.0); HEMOGLOBIN 13.8 g/dl (12.0-15.5); LYMPH # 0.8 10^3/uL (1.5-4.5); LYMPH % 5.2 % (24.0-44.0); MEAN CORPUSCULAR HEMOGLOBIN 30.8 pg (27.0-33.0); MEAN CORPUSCULAR VOLUME 96.2 fl (80.0-96.0); MONO # 0.4 10^3/uL (0.0-0.8); MONO % 2.8 % (0.0-5.0); NEUTROPHILS # 13.4 10^3/uL (1.8-7.7); PLATELET COUNT, AUTOMATED 351 10^3/uL (150-450); RED BLOOD COUNT 4.48 10^6/uL (4.00-5.40); WHITE BLOOD COUNT 14.9 10^3/uL (4.0-10.0)
[2018-10-17 05:53] LABS: ALBUMIN 2.7 GM/DL (3.2-5.2); ALT/SGPT 30 U/L (12-78); BILIRUBIN,TOTAL 0.4 MG/DL (0.2-1.0); BLOOD UREA NITROGEN 17 MG/DL (7-18); CALCIUM LEVEL 8.3 MG/DL (8.8-10.2); CARBON DIOXIDE LEVEL 38 MEQ/L (21-32); CHLORIDE LEVEL 97 MEQ/L (98-107); CREATININE FOR GFR 0.58 MG/DL (0.55-1.30); GLOMERULAR FILTRATION RATE > 60.0 (>45); GLUCOSE, FASTING 271 MG/DL (70-100); MAGNESIUM LEVEL 1.9 MG/DL (1.8-2.4); POTASSIUM SERUM 4.3 MEQ/L (3.5-5.1); SODIUM LEVEL 139 MEQ/L (136-145); TOTAL PROTEIN 6.1 GM/DL (6.4-8.2)
[2018-10-17] MEDS: BUDESONIDE 0.5 MG/2 ML INHALATION SUSPENSION INH SCH ×2 (07:10→20:17)
[2018-10-17] MEDS: TIOTROPIUM INHALER/CAPSULE (SPIRIVA) INH SCH (07:10)
[2018-10-17] MEDS: FORMOTEROL FUMARATE 20 MCG/2 ML INHALATION SOLUTION (PERFOROMIST) INH SCH ×2 (07:10→20:17)
[2018-10-17] MEDS: HumaLOG INSULIN (NovoLOG) PER UNIT SC SCH ×4 (07:38→20:25)
[2018-10-17 08:00] VITALS: BP 156/75
[2018-10-17] MEDS: DULoxetine 30 MG CAP (CYMBALTA) PO SCH (08:19)
[2018-10-17] MEDS: VARENICLINE 0.5 MG TABLET PO SCH (08:19)
[2018-10-17] MEDS: BISOPROLOL FUMARATE 5 MG TAB PO SCH (08:20)
[2018-10-17] MEDS: ENOXAPARIN 40 MG/0.4 ML SYRINGE (J1650) SC SCH (08:21)
[2018-10-17] MEDS: ASPIRIN 81 MG ENTERIC TAB PO SCH (08:21)
[2018-10-17] MEDS: PANTOPRAZOLE 40MG TAB (PROTONIX) PO SCH (08:21)
[2018-10-17] MEDS: LEVEMIR (INSULIN DETEMIR) 1 UNITS/0.01ML SC SCH ×2 (08:22→20:25)
[2018-10-17] MEDS: ANEXSIA, NORCO 7.5MG/325MG TABLET(HYDROCODONE/APAP) PO PRN (08:33)
--- NOTE | 2018-10-17 11:36 | IPNPDOC ---
Subjective Date Seen The patient was seen on 10/17/18. Subjective Chief Complaint/HPI Patient is feeling a lot better but still has mild shortness of breath General: Denies: ROS Unobtainable, Chills, Night Sweats, Fatigue, Malaise, Normal Appetite, Other Symptoms Constitutional: Denies: Chills, Fever, Malaise, Night Sweats, Weakness, Fatigue, Weight Loss, Lethargy, Other Eyes: Denies: Pain, Vision change, Conjunctivae inflammation, Eyelid inflammation, Redness, Other ENT: Denies: Head Aches, Ear Pain, Dysphagia, Sinus Congestion, Post Nasal Drip, Sore Throat, Epistaxis, Other Symptoms Skin: Denies: Rash, Lesions, Jaundice, Bruising, Itching, Dry, Breakdown, Nail Changes, Other Pulmonary: Reports: Dyspnea Cardiovascular: Denies: Chest Pain, Palpitations, Orthopnea, Paroxysmal Noc. Dyspnea, Edema, Lt Headedness, Other Symptoms Gastrointestinal: Denies: Nausea, Vomiting, Abdominal Pain, Diarrhea, Constipation, Melena, Hematochezia, Other Symptoms Genitourinary: Denies: Dysuria, Frequency, Incontinence, Hematuria, Retention, Other Symptoms Hematologic: Denies: Bruising, Bleeding Excessively, Petecchia, Purpura, Enlarged Lymph Nodes, Other Hematologic Endocrine: Denies: Polydipsia, Polyphagia, Polyuria, Heat Intolerance, Cold Intolerance, Other Endocrine Sx Musculoskeletal: Denies: Neck Pain, Back Pain, Shoulder Pain, Arm Pain, Hand Pain, Leg Pain, Foot Pain, Joint Pain, Muscle Pain, Spasms, Other Symptoms Neurological: Denies: Weakness, Numbness, Incoordination, Change in speech, Confusion, Seizures, Other Symptoms Psych: Denies: Mood Normal, Anxiety, Depression, Memory Issues, Thoughts of Self Harm, Anger, Thoughts of Harming Other, Other Psych Objective Physical Examination General Exam: Positive: Alert, Cooperative, Moderate Distress Eye Exam: Positive: PERRLA, Conjunctiva & lids normal, EOMI Chest Exam: Positive: Diminished Heart Exam: Positive: Tachycardic, Regular Rhythm Telemetry: Positive: No significant arrhythmia Abdomen Exam: Positive: Normal bowel sounds, Soft Extremity Exam: Positive: Edema Skin Exam: Positive: Nl turgor and temperature Assessment /Plan Problems (1) COPD with acute exacerbation Status: Acute Problem Text: Patient is clinically improved Transferred to PCU for further care Signed off by Dr. Amaya Repeat labs in a.m. Continue DuoNeb treatment Per of by mouth prednisone O2 support Further, as per pulmonary, follow-up appreciated Continue all present meds (2) Acute on chronic respiratory failure with hypercapnia Status: Acute Problem Text: As above Plan/VTE VTE Prophylaxis Ordered?: Yes VS, I&O, 24H, Fishbone Vital Signs/I&O Vital Signs Date Time Temp Pulse Resp B/P (MAP) Pulse Ox O2 Delivery O2 Flow Rate FiO2 10/17/18 09:52 18 10/17/18 08:20 88 156/75 10/17/18 08:00 2.0 10/17/18 08:00 97.7 92 10/17/18 00:00 30 10/15/18 04:30 BIPAP/CPAP I&O- Last 24 Hours up to 6 AM 10/17/18 06:00 Intake Total 3120 ml Output Total 3800 ml Balance -680 ml Laboratory Data 24H LABS Laboratory Tests 2 10/16/18 11:46: Bedside Glucose (Misc Panel) 333H 10/16/18 17:19: Bedside Glucose (Misc Panel) 313H 10/16/18 20:44: Bedside Glucose (Misc Panel) 389H 10/17/18 04:53: Immature Granulocyte % (Auto) 1.8, White Blood Count 14.9H, Red Blood Count 4.48, Hemoglobin 13.8, Hematocrit 43.1, Mean Corpuscular Volume 96.2H, Mean Corpuscular Hemoglobin 30.8, Mean Corpuscular Hemoglobin Concent 32.0, Red Cell Distribution Width 13.5, Platelet Count 351, Neutrophils (%) (Auto) 90.0H, Lymphocytes (%) (Auto) 5.2L, Monocytes (%) (Auto) 2.8, Eosinophils (%) (Auto) 0.0, Basophils (%) (Auto) 0.2, Neutrophils # (Auto) 13.4H, Lymphocytes # (Auto) 0.8L, Monocytes # (Auto) 0.4, Eosinophils # (Auto) 0.0, Basophils # (Auto) 0.0, Nucleated Red Blood Cells % (auto) 0.0, Anion Gap 4L, Glomerular Filtration Rate > 60.0, Blood Urea Nitrogen 17, Creatinine 0.58, Sodium Level 139, Potassium Level 4.3, Chloride Level 97L, Carbon Dioxide Level 38H, Calcium Level 8.3L, Aspartate Amino Transf (AST/SGOT) 9, Alanine Aminotransferase (ALT/SGPT) 30, Alkaline Phosphatase 96, Total Bilirubin 0.4, Total Protein 6.1L, Albumin 2.7L, Magnesium Level 1.9, Albumin/Globulin Ratio 0.79L CBC/BMP Laboratory Tests 10/17/18 04:53 Red Blood Count 4.48, Mean Corpuscular Volume 96.2 H, Mean Corpuscular Hemoglobin 30.8, Mean Corpuscular Hemoglobin Concent 32.0, Red Cell Distribution Width 13.5, Neutrophils (%) (Auto) 90.0 H, Lymphocytes (%) (Auto) 5.2 L, Monocytes (%) (Auto) 2.8, Eosinophils (%) (Auto) 0.0, Basophils (%) (Auto) 0.2, Neutrophils # (Auto) 13.4 H, Lymphocytes # (Auto) 0.8 L, Monocytes # (Auto) 0.4, Eosinophils # (Auto) 0.0, Basophils # (Auto) 0.0, Calcium Level 8.3 L, Aspartate Amino Transf (AST/SGOT) 9, Alanine Aminotransferase (ALT/SGPT) 30, Alkaline Phosphatase 96, Total Bilirubin 0.4, Total Protein 6.1 L, Albumin 2.7 L Microbiology Microbiology 10/15/18 Respiratory Virus Panel (PCR) ([facility]) - Final, Complete JESSICA FOSTER MD October 17, 2018 11:36
[2018-10-17 12:00] VITALS: BP 144/77
[2018-10-17] MEDS: LORazepam 1 MG TAB PO PRN ×2 (13:22→20:23)
[2018-10-17 16:00] VITALS: BP 143/76
[2018-10-17 20:00] VITALS: BP 162/76
[2018-10-17] MEDS: SERTRALINE 100 MG TAB PO SCH (20:24)
[2018-10-17] MEDS: ATORVASTATIN 20 MG TAB PO SCH (20:24)
[2018-10-18] VITALS: BP 147/69
[2018-10-18] MEDS: ALBUTEROL SULFATE 2.5 MG/0.5 ML INH NEB SOLN NEB SCH ×3 (03:52→10:38)
[2018-10-18] MEDS: SODIUM CHLORIDE HYPERTONIC 3% 15ML NEB SOL INH SCH ×3 (03:52→10:38)
[2018-10-18 04:00] VITALS: BP 138/78
[2018-10-18 04:46] LABS: BASO % 0.2 % (0.0-1.0); EOS % 0.2 % (0.0-3.0); HEMATOCRIT 42.2 % (36.0-47.0); HEMOGLOBIN 13.4 g/dl (12.0-15.5); LYMPH # 2.6 10^3/uL (1.5-4.5); LYMPH % 23.8 % (24.0-44.0); MEAN CORPUSCULAR HEMOGLOBIN 30.2 pg (27.0-33.0); MEAN CORPUSCULAR HGB CONC 31.8 g/dl (32.0-36.5); MONO # 0.9 10^3/uL (0.0-0.8); MONO % 8.2 % (0.0-5.0); NEUTROPHILS # 7.3 10^3/uL (1.8-7.7); NEUTROPHILS % 66.8 % (36.0-66.0); PLATELET COUNT, AUTOMATED 311 10^3/uL (150-450); RED BLOOD COUNT 4.44 10^6/uL (4.00-5.40); WHITE BLOOD COUNT 10.9 10^3/uL (4.0-10.0)
[2018-10-18 05:08] LABS: BLOOD UREA NITROGEN 15 MG/DL (7-18); CARBON DIOXIDE LEVEL 37 MEQ/L (21-32); CHLORIDE LEVEL 100 MEQ/L (98-107); CREATININE FOR GFR 0.56 MG/DL (0.55-1.30); GLOMERULAR FILTRATION RATE > 60.0 (>45); GLUCOSE, FASTING 145 MG/DL (70-100); POTASSIUM SERUM 3.8 MEQ/L (3.5-5.1); SODIUM LEVEL 140 MEQ/L (136-145)
[2018-10-18] MEDS: LEVOTHYROXINE 25MCG TABLET (0.025MG) PO SCH (05:42)
[2018-10-18] MEDS: BUDESONIDE 0.5 MG/2 ML INHALATION SUSPENSION INH SCH (07:03)
[2018-10-18] MEDS: FORMOTEROL FUMARATE 20 MCG/2 ML INHALATION SOLUTION (PERFOROMIST) INH SCH (07:03)
[2018-10-18] MEDS: TIOTROPIUM INHALER/CAPSULE (SPIRIVA) INH SCH (07:04)
[2018-10-18 07:35] VITALS: BP 144/70
[2018-10-18] MEDS: HumaLOG INSULIN (NovoLOG) PER UNIT SC SCH (07:35)
[2018-10-18] MEDS: VARENICLINE 0.5 MG TABLET PO SCH (08:03)
[2018-10-18] MEDS: LEVEMIR (INSULIN DETEMIR) 1 UNITS/0.01ML SC SCH (08:03)
[2018-10-18] MEDS: PANTOPRAZOLE 40MG TAB (PROTONIX) PO SCH (08:03)
[2018-10-18] MEDS: ASPIRIN 81 MG ENTERIC TAB PO SCH (08:04)
[2018-10-18] MEDS: DULoxetine 30 MG CAP (CYMBALTA) PO SCH (08:04)
[2018-10-18] MEDS: ENOXAPARIN 40 MG/0.4 ML SYRINGE (J1650) SC SCH (08:04)
[2018-10-18 08:07] VITALS: BP 144/70
[2018-10-18] MEDS: BISOPROLOL FUMARATE 5 MG TAB PO SCH (08:07)
[2018-10-18] MEDS ORDERED: predniSONE 20 MG TAB PO SCH (09:00)
[2018-10-18] MEDS ORDERED: VARE05TA PO (09:29)
[2018-10-18] MEDS ORDERED: PRED10TA2 PO (09:29)
--- NOTE | 2018-10-18 09:30 | DS.PDOC ---
Discharge Summary General Date of Admission October 15, 2018 at 00:22 Date of Discharge 10/18/18 Attending Physician: JESSICA FOSTER MD Discharge Summary PROCEDURES PERFORMED DURING STAY: None. ADMITTING DIAGNOSES: 1. Acute respiratory failure with hypoxia. DISCHARGE DIAGNOSES: 1. Acute respiratory failure, exacerbation of COPD. COMPLICATIONS/CHIEF COMPLAINT: Acute On Chronic Resp Failure W/Hypoxia. HISTORY OF PRESENT ILLNESS: 62 year old female with COPD, chronic respiratory failure with hypoxia and hypercarbia, SUYAPA, Bipolar disorder, anxiety, diabetes, Hypertension, Hypothyroid, CAD, obesity presented to the ED for worsening SOB along with increased cough and chest tightness for 3 days which became very bad today. Her oxygen level was down to 84% with her normal oxygen supplementation at home of 2 l. She does not produce much phlegm. Patient was last discharged from the hospital on 10/06/18 She was extremely anxious when she first arrived. She could not talk in full sentences and was using her accessory muscles of respiration. ABG in the ED showed 7.29/ pco2 84, po2 59. She initially refused BIPAP but she was give ativan 1 mg for her anxiety then she agreed to the BIPAP which was started on 11:45 pm , ABG after 1 hour showed definite improvement. She was admitted for acute on chronic hyperarbic and hypoxic respiratory faiure due to COPD exacerbation.. HOSPITAL COURSE: . Patient is clinically improved Patient wishes to go home. She will be discharged as she is clinically stable Signed off by Dr. Amaya Repeat labs are essentially within normal limits Continue DuoNeb treatment at home Per of by mouth prednisone as per orders O2 support at home Follow-up with the PCP in one week DISCHARGE MEDICATIONS: Please see below. ALLERGIES: Please see below. PHYSICAL EXAMINATION ON DISCHARGE: VITAL SIGNS: Please see below. GENERAL: Within normal limits HEENT: FAUSTINO, EOMintact] NECK: Supple CARDIOVASCULAR EXAMINATION: S1, S2, regular RESPIRATORY EXAMINATION: Decreased breath sounds but no wheezing ABDOMINAL EXAMINATION: Benign EXTREMITIES: No clubbing, cyanosis, edema SKIN: Within normal NEUROLOGICAL EXAMINATION: . No focal motor sensory deficit PSYCHIATRIC EXAMINATION: Within normal limits LABORATORY DATA: Please see below. IMAGING: As per EMR PROGNOSIS: Good ACTIVITY: As tolerated. DIET: As tolerated DISCHARGE PLAN: Follow with PCP in one week DISPOSITION: . Home DISCHARGE INSTRUCTIONS: 1. As above. ITEMS TO FOLLOWUP ON ON OUTPATIENT: 1. As above. DISCHARGE CONDITION: Stable. TIME SPENT ON DISCHARGE: Greater than 45 minutes Vital Signs/I&Os Vital Signs Date Time Temp Pulse Resp B/P (MAP) Pulse Ox O2 Delivery O2 Flow Rate FiO2 10/18/18 08:07 95 144/70 10/18/18 08:00 2.0 10/18/18 07:35 96.9 20 92 10/17/18 00:00 30 10/15/18 04:30 BIPAP/CPAP I&O- Last 24 Hours up to 6 AM 10/18/18 06:00 Intake Total 2640 ml Output Total 2550 ml Balance 90 ml Laboratory Data Labs 24H Laboratory Tests 2 10/17/18 11:43: Bedside Glucose (Misc Panel) 308H 10/17/18 17:11: Bedside Glucose (Misc Panel) 302H 10/17/18 20:12: Bedside Glucose (Misc Panel) 315H 10/18/18 04:34: Immature Granulocyte % (Auto) 0.8, White Blood Count 10.9H, Red Blood Count 4.44, Hemoglobin 13.4, Hematocrit 42.2, Mean Corpuscular Volume 95.0, Mean Corpuscular Hemoglobin 30.2, Mean Corpuscular Hemoglobin Concent 31.8L, Red Cell Distribution Width 13.8, Platelet Count 311, Neutrophils (%) (Auto) 66.8H, Lymphocytes (%) (Auto) 23.8L, Monocytes (%) (Auto) 8.2H, Eosinophils (%) (Auto) 0.2, Basophils (%) (Auto) 0.2, Neutrophils # (Auto) 7.3, Lymphocytes # (Auto) 2.6, Monocytes # (Auto) 0.9H, Eosinophils # (Auto) 0.0, Basophils # (Auto) 0.0, Nucleated Red Blood Cells % (auto) 0.0, Anion Gap 3L, Glomerular Filtration Rate > 60.0, Blood Urea Nitrogen 15, Creatinine 0.56, Sodium Level 140, Potassium Level 3.8, Chloride Level 100, Carbon Dioxide Level 37H, Calcium Level 8.0L 10/18/18 07:30: Bedside Glucose (Misc Panel) 139H CBC/BMP Laboratory Tests 10/18/18 04:34 Red Blood Count 4.44, Mean Corpuscular Volume 95.0, Mean Corpuscular Hemoglobin 30.2, Mean Corpuscular Hemoglobin Concent 31.8 L, Red Cell Distribution Width 13.8, Neutrophils (%) (Auto) 66.8 H, Lymphocytes (%) (Auto) 23.8 L, Monocytes (%) (Auto) 8.2 H, Eosinophils (%) (Auto) 0.2, Basophils (%) (Auto) 0.2, Neutrophils # (Auto) 7.3, Lymphocytes # (Auto) 2.6, Monocytes # (Auto) 0.9 H, Eosinophils # (Auto) 0.0, Basophils # (Auto) 0.0, Calcium Level 8.0 L FSBS Laboratory Tests Test 10/17/18 11:43 10/17/18 17:11 10/17/18 20:12 10/18/18 07:30 Range/Units Bedside Glucose (Misc Panel) 308 302 315 139 80-115 MG/DL Microbiology Microbiology 10/15/18 Respiratory Virus Panel (PCR) ([facility]) - Final, Complete Discharge Medications Scheduled Aripiprazole (Abilify) 5 Mg Tablet, 2.5 MG PO QHS, (Reported) Aspirin (Aspirin EC) 81 Mg Tabec, 81 MG PO DAILY, (Reported) Atorvastatin Calcium (Lipitor) 80 Mg Tab, 80 MG PO QHS, (Reported) Bisoprolol Fumarate (Bisoprolol Fumarate) 5 Mg Tab, 2.5 MG PO DAILY, (Reported) Duloxetine Hcl (Duloxetine HCl) 60 Mg Cap, 60 MG PO DAILY, (Reported) Ergocalciferol (Vitamin D2) (Drisdol) 50,000 Unit Cap, 50,000 UNIT PO 1XWK, (Reported) FRIDAYS Fluticasone Propion/Salmeterol (Advair Hfa 230-21 Mcg Inhaler) 1 Aer Aer, 2 PUFF INH BID, (Reported) Fluticasone Propionate (Flonase Allergy Relief) 50 Mcg/Act Spr, 1 SPRAY NA DAILY, (Reported) Gabapentin (Gabapentin) 800 Mg Tab, 800 MG PO QHS, (Reported) Levothyroxine Sodium (Levoxyl) 25 Mcg Tab, 25 MCG PO DAILY, (Reported) Metformin HCl (Metformin HCl) 1,000 Mg Tab, 1,000 MG PO BID, (Reported) Nicotine (Nicotine Patch) 21 Mg/24 Hr Patch.td24, 21 MG TD DAILY, (Reported) Nystatin (Nystatin Powder) 15 Gm Powder, 1 DOSE TOP QHS, (Reported) USES UNDER BREASTS Pantoprazole Sodium (Pantoprazole Sodium) 40 Mg Tab, 40 MG PO DAILY, (Reported) Prednisone (Prednisone) 10 Mg Tablet, 10 MG PO TAPER 40MG FOR 3 DAYS, 30MG FOR 3 DAYS, 20MG FOR 3 DAYS, 10MG FOR 3 DAYS, THEN STOP. LAST DOSE WAS THE 2ND DOSE OF 30MG. Sertraline HCl (Sertraline HCl) 100 Mg Tablet, 100 MG PO QHS, (Reported) Sucralfate (Sucralfate) 1 Gm Tab, 1 GM PO BID, (Reported) BEFORE BREAKFAST AND DINNER Tiotropium [place] Monohydrate (Spiriva) 18 Mcg Cap.w.dev, 1 INHALATION INH DAILY, (Reported) Varenicline (Chantix) 0.5 Mg Tablet, 0.5 MG PO DAILY Scheduled PRN Acetaminophen (Tylenol Arthritis) 650 Mg Tablet.er, 1,300 MG PO QHS PRN for PAIN, (Reported) Acetaminophen (Acetaminophen) 500 Mg Tablet, 1,000 MG PO Q6H PRN for PAIN, (Reported) Albuterol Sulfate (Ventolin Hfa) 108 Mcg/Act Aer, 2 PUFFS INH Q4H PRN for SHORTNESS OF BREATH, (Reported) Hydrocodone/Acetaminophen ([place] 7.5-325 Tablet) 1 Each Tablet, 1 TAB PO BID PRN for PAIN, (Reported) Ipratropium/Albuterol Sulfate (Iprat-Albut 0.5-3(2.5) mg/3 ml) 1 Sommer Sommer, 3 ML INH QID PRN for SOB/WHEEZING, (Reported) Menthol (Bengay) 5% Gel..gram., 1 APLCT TOP QID PRN for PAIN, (Reported) APPLIES TO NECK AND BACK Prochlorperazine Maleate (Prochlorperazine Maleate) 10 Mg Tablet, 10 MG PO TID PRN for NAUSEA OR VOMITING, (Reported) Allergies Coded Allergies: No Known Allergies (Unverified , 08/22/18) JESSICA FOSTER MD October 18, 2018 09:30
[2018-10-18] MEDS: ANEXSIA, NORCO 7.5MG/325MG TABLET(HYDROCODONE/APAP) PO PRN (10:53)
== END 2018-10-18 11:05 | disposition home or self-care (01) | DRG 189 ==
LOC: M ED 21:12 → M ED INP 10-15 00:22 → M ICU 10-15 00:53
PROVIDERS: ADMIT Internal Medicine Nephrology; ATTEND Internal Medicine
DX: J96.21 Acute and chronic respiratory failure with hypoxia (principal); J44.1 Chronic obstructive pulmonary disease with (acute) exacerbation; J96.12 Chronic respiratory failure with hypercapnia; G47.33 Obstructive sleep apnea (adult) (pediatric); F31.9 Bipolar disorder, unspecified; F41.9 Anxiety disorder, unspecified; E11.9 Type 2 diabetes mellitus without complications; I10 Essential (primary) hypertension; M79.7 Fibromyalgia; E03.9 Hypothyroidism, unspecified; M19.90 Unspecified osteoarthritis, unspecified site; F12.10 Cannabis abuse, uncomplicated; I25.10 Atherosclerotic heart disease of native coronary artery without angina pectoris; E78.5 Hyperlipidemia, unspecified; D35.01 Benign neoplasm of right adrenal gland; R91.1 Solitary pulmonary nodule; K21.9 Gastro-esophageal reflux disease without esophagitis; F17.200 Nicotine dependence, unspecified, uncomplicated; E66.9 Obesity, unspecified; I25.2 Old myocardial infarction; Z99.81 Dependence on supplemental oxygen; Z79.82 Long term (current) use of aspirin; Z79.84 Long term (current) use of oral hypoglycemic drugs; Z79.52 Long term (current) use of systemic steroids; Z79.899 Other long term (current) drug therapy; Z68.34 Body mass index [BMI] 34.0-34.9, adult

== ENCOUNTER 2018-10-20 00:14 | Observation (INO) | payer MEDICARE, MEDICAID ==
[~2018-10-20] VITALS: Ht 165.1 cm; Wt 86.4 kg
[~2018-10-20 00:14] MED LIST changes: +NICO1PAT15 TD; +NYST1POW9 TOP; +TIOT18INH INH; +VARE05TA PO
[2018-10-20 00:40] LABS: BASO # 0.1 10^3/uL (0.0-0.2); BASO % 0.5 % (0.0-1.0); EOS # 0.1 10^3/uL (0.0-0.50); EOS % 0.8 % (0.0-3.0); HEMATOCRIT 51.2 % (36.0-47.0); LYMPH # 2.9 10^3/uL (1.5-4.5); LYMPH % 19.8 % (24.0-44.0); MEAN CORPUSCULAR HEMOGLOBIN 30.6 pg (27.0-33.0); MEAN CORPUSCULAR HGB CONC 31.4 g/dl (32.0-36.5); MEAN CORPUSCULAR VOLUME 97.3 fl (80.0-96.0); NEUTROPHILS # 10.3 10^3/uL (1.8-7.7); NEUTROPHILS % 70.5 % (36.0-66.0); PLATELET COUNT, AUTOMATED 365 10^3/uL (150-450); RED BLOOD COUNT 5.26 10^6/uL (4.00-5.40); WHITE BLOOD COUNT 14.6 10^3/uL (4.0-10.0)
[2018-10-20] MEDS ORDERED: MORPHINE 2 MG/ML 1ML SYRINGE (J2270) IV ONE (00:45)
[2018-10-20] MEDS ORDERED: MAG SULF IV ONE (00:45)
[2018-10-20] MEDS ORDERED: DILUENT IV ONE (00:45)
[2018-10-20] MEDS ORDERED: dexameTHASONE 20 MG/5 ML VIAL (J1100) IV ONE (00:45)
[2018-10-20 00:46] LABS: HEMOGLOBIN 16.1 g/dl (12.0-15.5)
[2018-10-20 00:52] LABS: INR 0.86; PROTHROMBIN TIME 11.8 SECONDS (12.1-14.4)
[2018-10-20 00:58] LABS: BLOOD UREA NITROGEN 15 MG/DL (7-18); CALCIUM LEVEL 8.6 MG/DL (8.8-10.2); CARBON DIOXIDE LEVEL 40 MEQ/L (21-32); CHLORIDE LEVEL 95 MEQ/L (98-107); CPK CREATINE PHOSPHOKINASE 45 U/L (26-192); CREATININE FOR GFR 0.65 MG/DL (0.55-1.30); GLOMERULAR FILTRATION RATE > 60.0 (>45); GLUCOSE, FASTING 304 MG/DL (70-100); MB/CK RELATIVE INDEX 5.11 (< OR =4); NT-PRO BNP 142 PG/ML (<125); POTASSIUM SERUM 4.1 MEQ/L (3.5-5.1); SODIUM LEVEL 141 MEQ/L (136-145); TROPONIN I < 0.02 NG/ML (< 0.10)
[2018-10-20] MEDS ORDERED: D5W IV ONE (01:00)
[2018-10-20] MEDS ORDERED: MAGNESIUM SULFATE IV ONE (01:00)
[2018-10-20 01:03] LABS: VENOUS BASE EXCESS 8.9 (-2.0-2.0); VENOUS HCO3 40.4 MEQ/L (23.0-27.0); VENOUS O2 SATURATION 79.3 % (60.0-80.0); VENOUS PARTIAL PRESSURE CO2 91.7 mmHg (38.0-50.0); VENOUS PARTIAL PRESSURE O2 46.7 mmHg (30.0-50.0); VENOUS PH 7.262 UNITS (7.330-7.430); VENOUS STANDARD HCO3 32.2 MEQ/L; VENOUS TOTAL CO2 43.2 MEQ/L (24.0-28.0)
[2018-10-20] MEDS ORDERED: ISOVUE-370 76% 100ML VIAL (Q9967) As Ordered ONE (01:23)
--- NOTE | 2018-10-20 02:37 | REPVR ---
EXAM: CT Angiography Chest With Contrast EXAM DATE/TIME: 10/20/2018 1:16 AM CLINICAL HISTORY: 62 years old, female; Signs and symptoms; Dyspnea; Additional info: Dysp TECHNIQUE: Imaging protocol: Axial computed tomographic angiography images of the chest with intravenous contrast using CT angiography protocol. Coronal and sagittal reformatted images were created and reviewed. 3D rendering: MIP reconstructed images were created and reviewed. Radiation optimization: All CT scans at this facility use at least one of these dose optimization techniques: automated exposure control; mA and/or kV adjustment per patient size (includes targeted exams where dose is matched to clinical indication); or iterative reconstruction. Contrast material: ISO; Contrast volume: 75 ml; Contrast route: AC COMPARISON: CT ANGIO CHEST 08/22/2018 8:17 AM FINDINGS: No focal pulmonary artery filling defect to suggest acute pulmonary embolus. No thoracic aortic aneurysm or dissection. No pleural effusion or pneumothorax. Pulmonary vascular/interstitial pattern does not suggest active pulmonary edema. No cardiac enlargement. No suspicious lung mass or air space process. No central endobronchial lesion. Limited visualization of upper abdomen shows no concerning finding. Right adrenal adenoma measuring fat density, and 3.5 cm long axis, stable. Gallbladder is surgically absent. Bony structures show no acute fracture or destructive process. IMPRESSION: No evidence of acute pulmonary embolus. No other acute or concerning focal intrathoracic abnormality. Right adrenal gland adenoma, unchanged since March 2017, benign Electronically signed by: Kishor Moreau On 10/20/2018 02:36:40 AM
[2018-10-20] MEDS ORDERED: VARE05TA PO (03:37)
[2018-10-20] MEDS ORDERED: PRED10TA2 PO (03:37)
[2018-10-20] MEDS ORDERED: MAALOX 30 ML SUSP *UDC PO PRN (03:45)
[2018-10-20] MEDS ORDERED: ACETAMINOPHEN TAB 650MG DOSE (2X325MG) PO PRN (03:45)
[2018-10-20] MEDS ORDERED: MOM 30ML SUSPENSION UDC PO PRN (03:45)
[2018-10-20] MEDS ORDERED: ALBUTEROL SULFATE 2.5 MG/0.5 ML INH NEB SOLN NEB PRN (03:45)
--- NOTE | 2018-10-20 03:59 | HPEPDOC ---
General Date of Admission 10/20/2018 Date of Service: October 20, 2018 Chief Complaint The patient is a 62-year-old female admitted with a reason for visit of Difficulty Breathing. Source: Patient, RN/, Old records History of Present Illness Ms. Zavala is a 62 years old woman with severe COPD on home O2 (2L by NC) and SUYAPA not on home CPAP. She was recently admitted from 10/15 to 10/18 for COPD exacerbation. She came to Er with c/o sudden onset of SOB last night. Pt admits to mild cough, but otherwise denies chest pain, fever, chills or other problems. She reports exertional dyspnea. She reports taking prednisone as prescribed and nebs at home. In the ER, pt was noted to have decreased air entry. Labs consistent with partially compensated respiratory acidosis with venous blood pH of 7.29. Pt feels only slightly better after steroid, nebs and IV Magnesium tx in the ER. CTA chest was negative for PE or pneumonia. Home Medications Scheduled Aripiprazole (Abilify) 5 Mg Tablet, 2.5 MG PO QHS, (Reported) Aspirin (Aspirin EC) 81 Mg Tabec, 81 MG PO DAILY, (Reported) Atorvastatin Calcium (Lipitor) 80 Mg Tab, 80 MG PO QHS, (Reported) Bisoprolol Fumarate (Bisoprolol Fumarate) 5 Mg Tab, 2.5 MG PO DAILY, (Reported) Duloxetine Hcl (Duloxetine HCl) 60 Mg Cap, 60 MG PO DAILY, (Reported) Ergocalciferol (Vitamin D2) (Drisdol) 50,000 Unit Cap, 50,000 UNIT PO 1XWK, (Reported) FRIDAYS Fluticasone Propion/Salmeterol (Advair Hfa 230-21 Mcg Inhaler) 1 Aer Aer, 2 PUFF INH BID, (Reported) Fluticasone Propionate (Flonase Allergy Relief) 50 Mcg/Act Spr, 1 SPRAY NA DAILY, (Reported) Gabapentin (Gabapentin) 800 Mg Tab, 800 MG PO QHS, (Reported) Levothyroxine Sodium (Levoxyl) 25 Mcg Tab, 25 MCG PO DAILY, (Reported) Metformin HCl (Metformin HCl) 1,000 Mg Tab, 1,000 MG PO BID, (Reported) Nicotine (Nicotine Patch) 21 Mg/24 Hr Patch.td24, 21 MG TD DAILY, (Reported) Nystatin (Nystatin Powder) 15 Gm Powder, 1 DOSE TOP QHS, (Reported) USES UNDER BREASTS Pantoprazole Sodium (Pantoprazole Sodium) 40 Mg Tab, 40 MG PO DAILY, (Reported) Prednisone (Prednisone) 10 Mg Tablet, 10 MG PO TAPER, (Reported) 40MG FOR 3 DAYS, 30MG FOR 3 DAYS, 20MG FOR 3 DAYS, 10MG FOR 3 DAYS. LAST DOSE WAS THE 2ND DOSE OF 40MG. Sertraline HCl (Sertraline HCl) 100 Mg Tablet, 100 MG PO QHS, (Reported) Sucralfate (Sucralfate) 1 Gm Tab, 1 GM PO BID, (Reported) BEFORE BREAKFAST AND DINNER Tiotropium [place] Monohydrate (Spiriva) 18 Mcg Cap.w.dev, 1 INHALATION INH DAILY, (Reported) Varenicline (Chantix) 0.5 Mg Tablet, 0.5 MG PO DAILY, (Reported) Scheduled PRN Acetaminophen (Tylenol Arthritis) 650 Mg Tablet.er, 1,300 MG PO QHS PRN for PAIN, (Reported) Acetaminophen (Acetaminophen) 500 Mg Tablet, 1,000 MG PO Q6H PRN for PAIN, (Reported) Albuterol Sulfate (Ventolin Hfa) 108 Mcg/Act Aer, 2 PUFFS INH Q4H PRN for SHORTNESS OF BREATH, (Reported) Hydrocodone/Acetaminophen ([place] 7.5-325 Tablet) 1 Each Tablet, 1 TAB PO BID PRN for PAIN, (Reported) Ipratropium/Albuterol Sulfate (Iprat-Albut 0.5-3(2.5) mg/3 ml) 1 Sommer Sommer, 3 ML INH QID PRN for SOB/WHEEZING, (Reported) Menthol (Bengay) 5% Gel..gram., 1 APLCT TOP QID PRN for PAIN, (Reported) APPLIES TO NECK AND BACK Prochlorperazine Maleate (Prochlorperazine Maleate) 10 Mg Tablet, 10 MG PO TID PRN for NAUSEA OR VOMITING, (Reported) Allergies Coded Allergies: No Known Allergies (Unverified , 08/22/18) Past Medical History Medical History SEVERE Chronic obstructive pulmonary disease (COPD) , Chronic respiratory failure with hypoxia and hypercarbia , on 2L home O2 SUYAPA does not use CPAP , Nonobstructive Coronary artery disease with history of NSTEMI 2012 , Degenerative disc disease with chronic musculoskeletal pain and muscle spasm , Chronic low back pain on narcotics , Sacroilliac joint pain and myofascial pain , Fibromyalgia. Osteoarthritis Gastroesophageal reflux disease (GERD). Hypertension. Hyperlipidemia Diabetes Obesity Hypothyroidism. Adrenal nodule on the right, seems to be adrenal adenoma. Lung nodule Major depressive disorder without any psychotic features. Bipolar, anxiety disorder, adjustment disorder Cannabis use disorder. Surgical History Cholecystectomy. Cardiac catheterization without stent. History of breast biopsy. Dilation and curettage. Tubal ligation. Tonsillectomy. Exploratory laparotomy. Family History Significant Family History: Cancer, Diabetes Social History * Smoker: current smoker Alcohol: sober Drugs: denies A-FIB/CHADSVASC A-FIB History Current/History of A-Fib/PAF?: No Review of Systems Constitutional: Denies: Chills, Fever Eyes: Denies: Pain ENT: Denies: Head Aches Skin: Denies: Rash, Lesions Pulmonary: Reports: Dyspnea, Cough Cardiovascular: Reports: Edema (chronic right leg edema); Denies: Chest Pain Gastrointestinal: Denies: Nausea, Vomiting Genitourinary: Denies: Dysuria Hematologic: Denies: Bruising Musculoskeletal: Denies: Neck Pain, Back Pain Neurological: Denies: Weakness Psych: Reports: Mood Normal; Denies: Anxiety Physical Examination General Exam: Positive: Alert, Cooperative, No Acute Distress Eye Exam: Positive: PERRLA ENT Exam: Positive: Atraumatic Neck Exam: Positive: Supple; Negative: JVD Chest Exam: Positive: Diminished (globally) Heart Exam: Positive: Rate Normal, Regular Rhythm Abdomen Exam: Positive: Normal bowel sounds, Soft; Negative: Tenderness Extremity Exam: Positive: Edema (1+ pitting edema on right leg, chronic) Skin Exam: Positive: Nl turgor and temperature; Negative: Rash, Breakdown Neuro Exam: Positive: Normal Gait, Normal Speech Psych Exam: Positive: Mental status NL, Mood NL Vital Signs Vital Signs Date Time Temp Pulse Resp B/P (MAP) Pulse Ox O2 Delivery O2 Flow Rate FiO2 10/20/18 03:15 108 194/90 (124) 95 Nasal Cannula 4.0 10/20/18 02:15 30 10/20/18 00:45 97.6 Laboratory Data Labs 24H Laboratory Tests 2 10/20/18 00:27: Immature Granulocyte % (Auto) 1.4, White Blood Count 14.6H, Red Blood Count 5.26, Hemoglobin 16.1#H, Hematocrit 51.2H, Mean Corpuscular Volume 97.3H, Mean Corpuscular Hemoglobin 30.6, Mean Corpuscular Hemoglobin Concent 31.4L, Red Cell Distribution Width 14.0, Platelet Count 365, Neutrophils (%) (Auto) 70.5H, Lymphocytes (%) (Auto) 19.8L, Monocytes (%) (Auto) 7.0H, Eosinophils (%) (Auto) 0.8, Basophils (%) (Auto) 0.5, Neutrophils # (Auto) 10.3H, Lymphocytes # (Auto) 2.9, Monocytes # (Auto) 1.0H, Eosinophils # (Auto) 0.1, Basophils # (Auto) 0.1, Nucleated Red Blood Cells % (auto) 0.0, Prothrombin Time 11.8L, Prothromb Time International Ratio 0.86, Activated Partial Thromboplast Time 25.0L, Anion Gap 6L, Glomerular Filtration Rate > 60.0, Blood Urea Nitrogen 15, Creatinine 0.65, Sodium Level 141, Potassium Level 4.1, Chloride Level 95L, Carbon Dioxide Level 40H, Calcium Level 8.6L, Total Creatine Kinase 45, Creatine Kinase MB 2.0, Creatine Kinase MB Relative Index 5.11H, Troponin I < 0.02, JF-Rum-B-Type Natr iuretic Peptide 142H 10/20/18 00:48: Blood Gas Bicarbonate Standard 32.2, Venous Blood pH 7.262L, Venous Blood Partial Pressure CO2 91.7H, Venous Blood Partial Pressure O2 46.7, Venous Blood Total Carbon Dioxide 43.2H, Venous Blood HCO3 40.4H, Venous Blood Oxygen Saturation 79.3, Venous Blood Base Excess 8.9H CBC/BMP Laboratory Tests 10/20/18 00:27 Red Blood Count 5.26, Mean Corpuscular Volume 97.3 H, Mean Corpuscular Hemoglobin 30.6, Mean Corpuscular Hemoglobin Concent 31.4 L, Red Cell Distribution Width 14.0, Neutrophils (%) (Auto) 70.5 H, Lymphocytes (%) (Auto) 19.8 L, Monocytes (%) (Auto) 7.0 H, Eosinophils (%) (Auto) 0.8, Basophils (%) (Auto) 0.5, Neutrophils # (Auto) 10.3 H, Lymphocytes # (Auto) 2.9, Monocytes # (Auto) 1.0 H, Eosinophils # (Auto) 0.1, Basophils # (Auto) 0.1, Calcium Level 8.6 L, Total Creatine Kinase 45 Assessment/Plan COPD Exacerbation with Acute on Chronic Hypercapnic Respiratory Failure - Keep in Observation - IV steroid, nebs - No indication for antibiotic - CPAP for SUYAPA - SSI - Repeat ABG in the morning Plan / VTE VTE Prophylaxis Ordered?: Yes Plan Anticipated Discharge: Home With Services ALICIA SHAH MD October 20, 2018 03:59
[2018-10-20] MEDS ORDERED: DEXTROSE 50% 50 ML SYRINGE IV PRN (04:00)
[2018-10-20] MEDS ORDERED: GLUCAGON FOR INJ 1 MG VIAL (J1610) SC PRN (04:00)
[2018-10-20] MEDS ORDERED: GLUCOSE 4 GM CHEW TABLET PO PRN (04:00)
[2018-10-20] MEDS: methylPREDNISolone INJ 125 MG/2 ML VIAL (J2930) IV SCH ×3 (05:00→21:37)
[2018-10-20] MEDS: LEVOTHYROXINE 25MCG TABLET (0.025MG) PO SCH (06:00)
[2018-10-20] MEDS ORDERED: ANEXSIA, NORCO 7.5MG/325MG TABLET(HYDROCODONE/APAP) PO PRN (06:00)
[2018-10-20] MEDS ORDERED: PILL CUTTER 1 EACH XX PRN (06:15)
[2018-10-20] MEDS: HumaLOG INSULIN (NovoLOG) PER UNIT SC SCH ×3 (07:41→17:37)
[2018-10-20 08:06] LABS: ABG HCO3 36.3 MEQ/L (22.0-26.0); ABG O2 SATURATION 85.6 % (95.0-99.0); ABG PARTIAL PRESSURE O2 51.2 mmHg (75.0-100.0); ABG STANDARD HCO3 31.4 MEQ/L (22.0-26.0); ABG TOTAL CO2 38.3 MEQ/L (23.0-31.0); ABG pH (ARTERIAL) 7.355 UNITS (7.350-7.450)
[2018-10-20] MEDS: IPRATROPIUM 0.5MG/ALBUTEROL 2.5MG INH SOL UD 3ML (DUONEB)(J7620) NEB SCH ×3 (08:06→20:00)
--- NOTE | 2018-10-20 08:10 | REP ---
Portable chest x-ray: Single view. History: Dyspnea. Comparison chest x-ray: October 14, 2018. Findings: EKG monitoring electrodes overlie the chest. The heart is not enlarged. Lungs are well inflated and clear. Pleural angles are sharp. No infiltrate is seen. Impression: No acute disease. Electronically Signed by Ponce Higgins MD 10/20/2018 08:02 A
[2018-10-20 08:11] LABS: ABG PARTIAL PRESSURE CO2 66.5 mmHg (35.0-45.0)
[2018-10-20] MEDS: SUCRALFATE 1 GM TAB PO SCH ×2 (08:34→17:37)
[2018-10-20] MEDS: NICOTINE 21MG/24HR 1 EA TRANSDERMAL TD SCH (08:34)
[2018-10-20] MEDS: DULoxetine 30 MG CAP (CYMBALTA) PO SCH (08:34)
[2018-10-20] MEDS: ASPIRIN 81 MG ENTERIC TAB PO SCH (08:34)
[2018-10-20] MEDS: PANTOPRAZOLE 40MG TAB (PROTONIX) PO SCH (08:34)
[2018-10-20] MEDS: ENOXAPARIN 40 MG/0.4 ML SYRINGE (J1650) SC SCH (08:34)
[2018-10-20] MEDS: BISOPROLOL FUM 2.5 MG PER 1/2TAB PO SCH (08:47)
[2018-10-20 12:41] VITALS: BP 138/67
[2018-10-20 18:00] VITALS: BP 110/61
[2018-10-20] MEDS ORDERED: ATORVASTATIN 20 MG TAB PO SCH (21:00)
[2018-10-20] MEDS ORDERED: SERTRALINE 100 MG TAB PO SCH (21:00)
[2018-10-20] MEDS ORDERED: HumaLOG INSULIN (NovoLOG) PER UNIT SC SCH (21:00)
[2018-10-20] MEDS ORDERED: GABAPENTIN 400 MG CAP PO SCH (21:00)
[2018-10-20 22:00] VITALS: BP 138/66
[2018-10-21] MEDS: IPRATROPIUM 0.5MG/ALBUTEROL 2.5MG INH SOL UD 3ML (DUONEB)(J7620) NEB SCH ×2 (02:42→06:51)
[2018-10-21] MEDS: LEVOTHYROXINE 25MCG TABLET (0.025MG) PO SCH (05:47)
[2018-10-21] MEDS: methylPREDNISolone INJ 125 MG/2 ML VIAL (J2930) IV SCH ×2 (05:47→11:58)
[2018-10-21 06:00] VITALS: BP 113/93
[2018-10-21] MEDS: NICOTINE 21MG/24HR 1 EA TRANSDERMAL TD SCH (08:23)
[2018-10-21] MEDS: HumaLOG INSULIN (NovoLOG) PER UNIT SC SCH ×2 (08:23→11:58)
[2018-10-21] MEDS: SUCRALFATE 1 GM TAB PO SCH (08:24)
[2018-10-21] MEDS: DULoxetine 30 MG CAP (CYMBALTA) PO SCH (08:24)
[2018-10-21] MEDS: PANTOPRAZOLE 40MG TAB (PROTONIX) PO SCH (08:24)
[2018-10-21] MEDS: ASPIRIN 81 MG ENTERIC TAB PO SCH (08:24)
[2018-10-21] MEDS: ENOXAPARIN 40 MG/0.4 ML SYRINGE (J1650) SC SCH (08:24)
[2018-10-21 08:25] VITALS: BP 113/93
[2018-10-21] MEDS: BISOPROLOL FUM 2.5 MG PER 1/2TAB PO SCH (08:25)
[2018-10-21] MEDS ORDERED: HYDR10EL PO (12:25)
--- NOTE | 2018-10-21 12:37 | DS.PDOC ---
Discharge Summary General Date of Admission October 20, 2018 at 03:43 Date of Discharge 10/21/2018 Attending Physician: JESSICA FOSTER MD Discharge Summary PROCEDURES PERFORMED DURING STAY: [None]. ADMITTING DIAGNOSES: 1. [Bronchiectasis]. DISCHARGE DIAGNOSES: 1. [Acute basis]. COMPLICATIONS/CHIEF COMPLAINT: Acute On Chronic Respiratory Failure W Hypercapnia. HISTORY OF PRESENT ILLNESS: [Ms. Zavala is a 62 years old woman with severe COPD on home O2 (2L by NC) and SUYAPA not on home CPAP. She was recently admitted from 10/15 to 10/18 for COPD exacerbation. She came to Er with c/o sudden onset of SOB last night. Pt admits to mild cough, but otherwise denies chest pain, fever, chills or other problems. She reports exertional dyspnea. She reports taking prednisone as prescribed and nebs at home.]. HOSPITAL COURSE: [ Admitted with the chief complaints of shortness of breath, she was started on her home meds plus Bladder treatment and IV steroids. Patient is in her usual state of health on physical examination lungs sounds are diminished bilaterally but no added sounds, no wheezing, no rales, no rhonchi, And she is very comfortable on room air. She can be discharged back home on all current medications and by mouth prednisone, which she hasn't. Patient was advised to follow-up with Dr. Amaya as an outpatient in one week. Patient does have a history of anxiety for which she has been recommended to continue h ydroxyzine 10 mg by mouth 3 times a day when necessary. ]. DISCHARGE MEDICATIONS: Please see below. ALLERGIES: Please see below. PHYSICAL EXAMINATION ON DISCHARGE: VITAL SIGNS: Please see below. GENERAL: [Within normal limits] HEENT: [PERRLA] NECK: [Supple ] CARDIOVASCULAR EXAMINATION: [S1, S2, regular] RESPIRATORY EXAMINATION: [Clear to A&P with diminished breath sounds bila terally] ABDOMINAL EXAMINATION: [Benign] EXTREMITIES: [No clubbing, cyanosis or edema] SKIN: [Normal] NEUROLOGICAL EXAMINATION: [. No focal motor sensory deficit] PSYCHIATRIC EXAMINATION: [Anxiety] LABORATORY DATA: Please see below. IMAGING: [As per EMR] PROGNOSIS: [Good] ACTIVITY: [As tolerated]. DIET: [Regular] DISCHARGE PLAN: [Follow with Dr. Amaya in one week] DISPOSITION: . Home DISCHARGE INSTRUCTIONS: 1. [As above]. ITEMS TO FOLLOWUP ON ON OUTPATIENT: 1. [As above]. DISCHARGE CONDITION: [Stable]. TIME SPENT ON DISCHARGE: Greater than [25] minutes. Vital Signs/I&Os Vital Signs Date Time Temp Pulse Resp B/P (MAP) Pulse Ox O2 Delivery O2 Flow Rate FiO2 10/21/18 09:00 2.0 10/21/18 08:25 91 113/93 10/21/18 06:00 96.9 20 93 10/20/18 12:08 Nasal Cannula I&O- Last 24 Hours up to 6 AM 10/21/18 06:00 Intake Total 1590 ml Output Total 400 ml Balance 1190 ml Laboratory Data Labs 24H Laboratory Tests 2 10/20/18 16:55: Bedside Glucose (Misc Panel) 342H 10/20/18 21:07: Bedside Glucose (Misc Panel) 365H 10/21/18 07:51: Bedside Glucose (Misc Panel) 351H FSBS Laboratory Tests Test 10/20/18 16:55 10/20/18 21:07 10/21/18 07:51 Range/Units Bedside Glucose (Misc Panel) 342 365 351 80-115 MG/DL Discharge Medications Scheduled Aripiprazole (Abilify) 5 Mg Tablet, 2.5 MG PO QHS, (Reported) Aspirin (Aspirin EC) 81 Mg Tabec, 81 MG PO DAILY, (Reported) Atorvastatin Calcium (Lipitor) 80 Mg Tab, 80 MG PO QHS, (Reported) Bisoprolol Fumarate (Bisoprolol Fumarate) 5 Mg Tab, 2.5 MG PO DAILY, (Reported) Duloxetine Hcl (Duloxetine HCl) 60 Mg Cap, 60 MG PO DAILY, (Reported) Ergocalciferol (Vitamin D2) (Drisdol) 50,000 Unit Cap, 50,000 UNIT PO 1XWK, (Reported) FRIDAYS Fluticasone Propion/Salmeterol (Advair Hfa 230-21 Mcg Inhaler) 1 Aer Aer, 2 PUFF INH BID, (Reported) Fluticasone Propionate (Flonase Allergy Relief) 50 Mcg/Act Spr, 1 SPRAY NA DAILY, (Reported) Gabapentin (Gabapentin) 800 Mg Tab, 800 MG PO QHS, (Reported) Hydroxyzine HCl (Hydroxyzine HCl) 10 Mg/5 Ml Solution, 5 ML PO TID for anxiety Levothyroxine Sodium (Levoxyl) 25 Mcg Tab, 25 MCG PO DAILY, (Reported) Metformin HCl (Metformin HCl) 1,000 Mg Tab, 1,000 MG PO BID, (Reported) Nicotine (Nicotine Patch) 21 Mg/24 Hr Patch.td24, 21 MG TD DAILY, (Reported) Nystatin (Nystatin Powder) 15 Gm Powder, 1 DOSE TOP QHS, (Reported) USES UNDER BREASTS Pantoprazole Sodium (Pantoprazole Sodium) 40 Mg Tab, 40 MG PO DAILY, (Reported) Prednisone (Prednisone) 10 Mg Tablet, 10 MG PO TAPER, (Reported) 40MG FOR 3 DAYS, 30MG FOR 3 DAYS, 20MG FOR 3 DAYS, 10MG FOR 3 DAYS. LAST DOSE WAS THE 2ND DOSE OF 40MG. Sertraline HCl (Sertraline HCl) 100 Mg Tablet, 100 MG PO QHS, (Reported) Sucralfate (Sucralfate) 1 Gm Tab, 1 GM PO BID, (Reported) BEFORE BREAKFAST AND DINNER Tiotropium [place] Monohydrate (Spiriva) 18 Mcg Cap.w.dev, 1 INHALATION INH DAILY, (Reported) Varenicline (Chantix) 0.5 Mg Tablet, 0.5 MG PO DAILY, (Reported) Scheduled PRN Acetaminophen (Tylenol Arthritis) 650 Mg Tablet.er, 1,300 MG PO QHS PRN for PAIN, (Reported) Acetaminophen (Acetaminophen) 500 Mg Tablet, 1,000 MG PO Q6H PRN for PAIN, (Reported) Albuterol Sulfate (Ventolin Hfa) 108 Mcg/Act Aer, 2 PUFFS INH Q4H PRN for SHORTNESS OF BREATH, (Reported) Hydrocodone/Acetaminophen ([place] 7.5-325 Tablet) 1 Each Tablet, 1 TAB PO BID PRN for PAIN, (Reported) Ipratropium/Albuterol Sulfate (Iprat-Albut 0.5-3(2.5) mg/3 ml) 1 Sommer Sommer, 3 ML INH QID PRN for SOB/WHEEZING, (Reported) Menthol (Bengay) 5% Gel..gram., 1 APLCT TOP QID PRN for PAIN, (Reported) APPLIES TO NECK AND BACK Prochlorperazine Maleate (Prochlorperazine Maleate) 10 Mg Tablet, 10 MG PO TID PRN for NAUSEA OR VOMITING, (Reported) Allergies Coded Allergies: No Known Allergies (Unverified , 08/22/18) JESSICA FOSTER MD October 21, 2018 12:37
== END 2018-10-21 13:43 | disposition home or self-care (01) ==
LOC: M ED 00:14 → M ED INP 03:43 → M MSPAV 12:43
PROVIDERS: ADMIT Internal Medicine; ATTEND Internal Medicine
DX: J96.22 Acute and chronic respiratory failure with hypercapnia (principal); E87.2 Acidosis; R00.0 Tachycardia, unspecified; R06.02 Shortness of breath; J44.9 Chronic obstructive pulmonary disease, unspecified; Z99.81 Dependence on supplemental oxygen; G47.33 Obstructive sleep apnea (adult) (pediatric); I25.10 Atherosclerotic heart disease of native coronary artery without angina pectoris; I25.2 Old myocardial infarction; M51.9 Unspecified thoracic, thoracolumbar and lumbosacral intervertebral disc disorder; M54.5 Low back pain; M79.7 Fibromyalgia; M19.90 Unspecified osteoarthritis, unspecified site; K21.9 Gastro-esophageal reflux disease without esophagitis; I11.9 Hypertensive heart disease without heart failure; E11.9 Type 2 diabetes mellitus without complications; E66.9 Obesity, unspecified; E03.9 Hypothyroidism, unspecified; R91.1 Solitary pulmonary nodule; E27.9 Disorder of adrenal gland, unspecified; F32.9 Major depressive disorder, single episode, unspecified; F12.10 Cannabis abuse, uncomplicated; Z79.899 Other long term (current) drug therapy; Z79.52 Long term (current) use of systemic steroids; Z79.82 Long term (current) use of aspirin; Z79.84 Long term (current) use of oral hypoglycemic drugs; F17.200 Nicotine dependence, unspecified, uncomplicated
CPT/HCPCS: 71045; 71275; 80048; 82550; 82553; 82803; 83880; 84484; 85025; 85610; 85730; 94640; 96365; 96372; 96375; 96376; 99285; G0378; J1100; J1650; J2270; J2930; J3475; Q9967

== ENCOUNTER 2018-10-27 19:40 | Inpatient (IN) | payer MEDICARE, MEDICAID ==
[~2018-10-27] VITALS: Ht 165.1 cm; Wt 93.2 kg
[~2018-10-27 19:40] MED LIST changes: +HYDR10EL PO
[2018-10-27 20:34] LABS: BASO # 0.1 10^3/uL (0.0-0.2); BASO % 0.7 % (0.0-1.0); EOS % 0.4 % (0.0-3.0); HEMATOCRIT 44.1 % (36.0-47.0); HEMOGLOBIN 13.9 g/dl (12.0-15.5); LYMPH # 2.3 10^3/uL (1.5-4.5); LYMPH % 21.1 % (24.0-44.0); MEAN CORPUSCULAR HEMOGLOBIN 31.4 pg (27.0-33.0); MEAN CORPUSCULAR HGB CONC 31.5 g/dl (32.0-36.5); MEAN CORPUSCULAR VOLUME 99.5 fl (80.0-96.0); MONO # 0.8 10^3/uL (0.0-0.8); MONO % 7.6 % (0.0-5.0); NEUTROPHILS # 7.3 10^3/uL (1.8-7.7); NEUTROPHILS % 66.7 % (36.0-66.0); PLATELET COUNT, AUTOMATED 288 10^3/uL (150-450); RED BLOOD COUNT 4.43 10^6/uL (4.00-5.40); WHITE BLOOD COUNT 10.9 10^3/uL (4.0-10.0)
[2018-10-27 21:00] LABS: ABG HCO3 41.1 MEQ/L (22.0-26.0); ABG O2 SATURATION 95.2 % (95.0-99.0); ABG PARTIAL PRESSURE O2 82.4 mmHg (75.0-100.0); ABG STANDARD HCO3 34.8 MEQ/L (22.0-26.0); ABG TOTAL CO2 43.7 MEQ/L (23.0-31.0); ABG pH (ARTERIAL) 7.302 UNITS (7.350-7.450)
[2018-10-27 21:01] LABS: ABG PARTIAL PRESSURE CO2 85.1 mmHg (35.0-45.0)
[2018-10-27 21:02] LABS: ALBUMIN 3.1 GM/DL (3.2-5.2); ALT/SGPT 34 U/L (12-78); BILIRUBIN,DIRECT < 0.1 MG/DL (0.0-0.2); BILIRUBIN,TOTAL 0.3 MG/DL (0.2-1.0); BLOOD UREA NITROGEN 10 MG/DL (7-18); CALCIUM LEVEL 9.2 MG/DL (8.8-10.2); CARBON DIOXIDE LEVEL 38 MEQ/L (21-32); CHLORIDE LEVEL 95 MEQ/L (98-107); CPK CREATINE PHOSPHOKINASE 51 U/L (26-192); CREATININE FOR GFR 0.46 MG/DL (0.55-1.30); GLOMERULAR FILTRATION RATE > 60.0 (>45); GLUCOSE, FASTING 325 MG/DL (70-100); MB/CK RELATIVE INDEX 9.02 (< OR =4); NT-PRO BNP 410 PG/ML (<125); POTASSIUM SERUM 4.3 MEQ/L (3.5-5.1); SODIUM LEVEL 138 MEQ/L (136-145); TOTAL PROTEIN 6.1 GM/DL (6.4-8.2); TROPONIN I < 0.02 NG/ML (< 0.10)
[2018-10-27 21:06] LABS: INFLUENZA A AMPLIFICATION NEGATIVE (NEGATIVE); INFLUENZA B AMPLIFICATION NEGATIVE (NEGATIVE)
[2018-10-27] MEDS: IPRATROPIUM 0.5MG/ALBUTEROL 2.5MG INH SOL UD 3ML (DUONEB)(J7620) NEB PRN ×3 (21:15→21:50)
[2018-10-27] MEDS: ALBUTEROL SULFATE 2.5 MG/0.5 ML INH NEB SOLN INH SCH ×2 (21:58→22:01)
[2018-10-27] MEDS ORDERED: GLUCAGON FOR INJ 1 MG VIAL (J1610) SC PRN (22:45)
[2018-10-27] MEDS ORDERED: IPRATROPIUM 0.5MG/ALBUTEROL 2.5MG INH SOL UD 3ML (DUONEB)(J7620) NEB PRN (22:45)
[2018-10-27] MEDS ORDERED: GLUCOSE 4 GM CHEW TABLET PO PRN (22:45)
[2018-10-27] MEDS ORDERED: DEXTROSE 50% 50 ML SYRINGE IV PRN (22:45)
--- NOTE | 2018-10-27 22:54 | HPEPDOC ---
[facility] Medical History & Physical Date of Admission Oct 27, 2018 Date of Service: Oct 27, 2018 History and Physical CHIEF COMPLAINT: SOB HISTORY OF PRESENT ILLNESS: Patient is a 62F with severe COPD on 2L home O2, SUYAPA, Bipolar/anxiety, DM, HTN, hypothryoidism, nonobstructive CAD and Fibromyalgia brought into the ER for wors ening SOB, given decadron en route. She reports being SOB at baseline but worsened for the past 2 days associated with a mild productive cough but otherwise denies any other complaints. She appears lethargic but states that she is just tired and had already feel better. PAST MEDICAL HISTORY: Refer to HPI PAST SURGICAL HISTORY: Cholecystectomy Cardiac catheterization Tubal ligation Tonsillectomy SOCIAL HISTORY: Tobacco user. Previous heavy alcohol use, no longer drink and denies drugs. FAMILY HISTORY: DM and Ca in family ALLERGIES: Please see below. REVIEW OF SYSTEMS: 10 point review of system negative except as stated in HPI HOME MEDICATIONS: Please see below. PHYSICAL EXAMINATION: General: No acute distress, Alert Eyes: Normal sclera, EOMI, MAEVE HENT: Atraumatic, neck supple, moist mucous membranes Cardiovascular: Normal rate, normal rhythm. No murmurs appreciated. Pulmonary: Clear to auscultation b/l, no wheezing GI: Soft, nontender, nondistended Skin: Warm and dry Neuro: CN grossly intact. No focal deficits. Strengths equal b/l. Psych: oriented x 3 LABORATORY DATA: See below. IMAGING: CXR-No obvious infiltrate. F/u official report. MICROBIOLOGY: Please see below. ASSESSMENT AND PLAN: 1. COPD exacerbation - Clinically improving, received Decadron en route. - c/w IV steroids, Abx and nebs. - O2 support as needed, titrate to >92%. - Mild acidosis pH 7.3 pCO2 85. 2. DM - Hold oral glycemic meds. - Accuchecks with ISS. 3. HTN - resume home meds. - Monitor BP. 4. Hypothyroidism - Resume home medication. DVT ppx: Lovenox and SCD Code status: Full code Vital Signs Vital Signs Date Time Temp Pulse Resp B/P (MAP) Pulse Ox O2 Delivery O2 Flow Rate FiO2 10/27/18 21:40 104 94 10/27/18 20:15 198/84 (122) 10/27/18 20:00 Nasal Cannula 2.0 10/27/18 19:54 97.4 32 Laboratory Data Labs 24H Laboratory Tests 2 10/27/18 20:27: Immature Granulocyte % (Auto) 3.5H, White Blood Count 10.9H, Red Blood Count 4.43, Hemoglobin 13.9, Hematocrit 44.1, Mean Corpuscular Volume 99.5H, Mean Corpuscular Hemoglobin 31.4, Mean Corpuscular Hemoglobin Concent 31.5L, Red Cell Distribution Width 14.2, Platelet Count 288, Neutrophils (%) (Auto) 66.7H, Lymphocytes (%) (Auto) 21.1L, Monocytes (%) (Auto) 7.6H, Eosinophils (%) (Auto) 0.4, Basophils (%) (Auto) 0.7, Neutrophils # (Auto) 7.3, Lymphocytes # (Auto) 2.3, Monocytes # (Auto) 0.8, Eosinophils # (Auto) 0.0, Basophils # (Auto) 0.1, Nucleated Red Blood Cells % (auto) 0.0, Anion Gap 5L, Glomerular Filtration Rate > 60.0, Calcium Level 9.2, Aspartate Amino Transf (AST/SGOT) 9, Alanine A minotransferase (ALT/SGPT) 34, Alkaline Phosphatase 120H, Total Bilirubin 0.3, Direct Bilirubin < 0.1, Total Creatine Kinase 51, Creatine Kinase MB 5.0H, Creatine Kinase MB Relative Index 9.02H, Troponin I < 0.02, EU-Zvi-B-Type Natriuretic Peptide 410H, Total Protein 6.1L, Albumin 3.1L, Albumin/Globulin Ratio 1.03, Influenza Type A (RT-PCR) NEGATIVE, Influenza Type B (RT-PCR) NEGATIVE 10/27/18 20:31: Blood Gas Bicarbonate Standard 34.8H, Arterial Blood pH 7.302L, Arterial Blood Partial Pressure CO2 85.1*H, Arterial Blood Partial Pressure O2 82.4, Arterial Blood Total CO2 43.7H, Arterial Blood HCO3 41.1H, Arterial Blood Base Excess 11.0H, Arterial Blood Oxygen Saturation 95.2 CBC/BMP Laboratory Tests 10/27/18 20:27 Red Blood Count 4.43, Mean Corpuscular Volume 99.5 H, Mean Corpuscular Hemoglobin 31.4, Mean Corpuscular Hemoglobin Concent 31.5 L, Red Cell Distribution Width 14.2, Neutrophils (%) (Auto) 66.7 H, Lymphocytes (%) (Auto) 21.1 L, Monocytes (%) (Auto) 7.6 H, Eosinophils (%) (Auto) 0.4, Basophils (%) (Auto) 0.7, Neutrophils # (Auto) 7.3, Lymphocytes # (Auto) 2.3, Monocytes # (Auto) 0.8, Eosinophils # (Auto) 0.0, Basophils # (Auto) 0.1 Microbiology Microbiology 10/27/18 Blood Culture, Received Pending Home Medications Scheduled Aripiprazole (Abilify) 5 Mg Tablet, 2.5 MG PO QHS Aspirin (Aspirin EC) 81 Mg Tabec, 81 MG PO DAILY Atorvastatin Calcium (Lipitor) 80 Mg Tab, 80 MG PO QHS Bisoprolol Fumarate (Bisoprolol Fumarate) 5 Mg Tab, 2.5 MG PO DAILY Duloxetine Hcl (Duloxetine HCl) 60 Mg Cap, 60 MG PO DAILY Ergocalciferol (Vitamin D2) (Drisdol) 50,000 Unit Cap, 50,000 UNIT PO 1XWK FRIDAYS Fluticasone Propion/Salmeterol (Advair Hfa 230-21 Mcg Inhaler) 1 Aer Aer, 2 PUFF INH BID Fluticasone Propionate (Flonase Allergy Relief) 50 Mcg/Act Spr, 1 SPRAY NA DAILY Gabapentin (Gabapentin) 800 Mg Tab, 800 MG PO QHS Hydroxyzine HCl (Hydroxyzine HCl) 10 Mg/5 Ml Solution, 10 MG PO TID Levothyroxine Sodium (Levoxyl) 25 Mcg Tab, 25 MCG PO DAILY Metformin HCl (Metformin HCl) 1,000 Mg Tab, 1,000 MG PO BID Nicotine (Nicotine Patch) 21 Mg/24 Hr Patch.td24, 21 MG TD DAILY Nystatin (Nystatin Powder) 15 Gm Powder, 1 DOSE TOP QHS USES UNDER BREASTS Pantoprazole Sodium (Pantoprazole Sodium) 40 Mg Tab, 40 MG PO DAILY Prednisone (Prednisone) 10 Mg Tablet, 10 MG PO TAPER 40MG FOR 3 DAYS, 30MG FOR 3 DAYS, 20MG FOR 3 DAYS, 10MG FOR 3 DAYS. Sertraline HCl (Sertraline HCl) 100 Mg Tablet, 100 MG PO QHS Sucralfate (Sucralfate) 1 Gm Tab, 1 GM PO BID BEFORE BREAKFAST AND DINNER Tiotropium [place] Monohydrate (Spiriva) 18 Mcg Cap.w.dev, 1 INHALATION INH DAILY Varenicline (Chantix) 0.5 Mg Tablet, 0.5 MG PO DAILY Scheduled PRN Acetaminophen (Tylenol Arthritis) 650 Mg Tablet.er, 1,300 MG PO DAILY PRN for PAIN Acetaminophen (Acetaminophen) 500 Mg Tablet, 1,000 MG PO Q6H PRN for PAIN Albuterol Sulfate (Ventolin Hfa) 108 Mcg/Act Aer, 2 PUFFS INH Q4H PRN for SHORTNESS OF BREATH Hydrocodone/Acetaminophen ([place] 7.5-325 Tablet) 1 Each Tablet, 1 TAB PO BID PRN for PAIN Ipratropium/Albuterol Sulfate (Iprat-Albut 0.5-3(2.5) mg/3 ml) 1 Sommer Sommer, 3 ML INH QID PRN for SHORTNESS OF BREATH Menthol (Bengay) 5% Gel..gram., 1 DOSE TOP QID PRN for PAIN APPLIES TO NECK AND BACK Prochlorperazine Maleate (Prochlorperazine Maleate) 10 Mg Tablet, 10 MG PO TID PRN for NAUSEA OR VOMITING Allergies Coded Allergies: No Known Allergies (Unverified , 08/22/18) A-FIB/CHADSVASC A-FIB History Current/History of A-Fib/PAF?: No FRANCO RICHARDSON MD Oct 27, 2018 22:54
[2018-10-27] MEDS ORDERED: HYDR10EL PO (22:57)
[2018-10-27] MEDS: HumaLOG INSULIN (NovoLOG) PER UNIT SC SCH (23:24)
[2018-10-28] MEDS: AZITHROMYCIN INJ 500 MG, VIAL MATE ADAPTER 1 EACH in D5W 250 ML IV SCH ×2 (01:15→23:54)
[2018-10-28] MEDS: IPRATROPIUM 0.5MG/ALBUTEROL 2.5MG INH SOL UD 3ML (DUONEB)(J7620) NEB SCH ×6 (04:03→20:09)
[2018-10-28] MEDS: methylPREDNISolone INJ 125 MG/2 ML VIAL (J2930) IV SCH ×3 (06:19→21:49)
[2018-10-28 06:40] LABS: HEMOGLOBIN 13.1 g/dl (12.0-15.5); MEAN CORPUSCULAR HEMOGLOBIN 30.4 pg (27.0-33.0); MEAN CORPUSCULAR HGB CONC 31.2 g/dl (32.0-36.5); MEAN CORPUSCULAR VOLUME 97.4 fl (80.0-96.0); PLATELET COUNT, AUTOMATED 301 10^3/uL (150-450); RED BLOOD COUNT 4.31 10^6/uL (4.00-5.40); WHITE BLOOD COUNT 13.8 10^3/uL (4.0-10.0)
[2018-10-28 07:09] LABS: BLOOD UREA NITROGEN 11 MG/DL (7-18); CALCIUM LEVEL 8.9 MG/DL (8.8-10.2); CARBON DIOXIDE LEVEL 37 MEQ/L (21-32); CHLORIDE LEVEL 96 MEQ/L (98-107); CREATININE FOR GFR 0.44 MG/DL (0.55-1.30); GLOMERULAR FILTRATION RATE > 60.0 (>45); GLUCOSE, FASTING 349 MG/DL (70-100); POTASSIUM SERUM 4.6 MEQ/L (3.5-5.1); SODIUM LEVEL 140 MEQ/L (136-145)
[2018-10-28] MEDS: LEVOTHYROXINE 25MCG TABLET (0.025MG) PO SCH (07:25)
[2018-10-28] MEDS: TIOTROPIUM INHALER/CAPSULE (SPIRIVA) INH SCH (08:02)
[2018-10-28 08:28] VITALS: BP 138/77
[2018-10-28] MEDS: hydrOXYzine 10MG/5ML SYRUP PO SCH ×3 (08:29→21:46)
[2018-10-28] MEDS: ASPIRIN 81 MG ENTERIC TAB PO SCH (08:29)
[2018-10-28] MEDS: HumaLOG INSULIN (NovoLOG) PER UNIT SC SCH ×4 (08:29→19:56)
[2018-10-28] MEDS: VARENICLINE 0.5 MG TABLET PO SCH (08:29)
[2018-10-28] MEDS: DULoxetine 30 MG CAP (CYMBALTA) PO SCH (08:29)
[2018-10-28] MEDS: BISOPROLOL FUMARATE 5 MG TAB PO SCH (08:30)
[2018-10-28] MEDS: PANTOPRAZOLE 40MG TAB (PROTONIX) PO SCH (08:30)
[2018-10-28] MEDS: ENOXAPARIN 40 MG/0.4 ML SYRINGE (J1650) SC SCH (08:30)
--- NOTE | 2018-10-28 08:43 | REP ---
PORTABLE CHEST: AP portable view of the chest is performed and compared to a prior study of 10/20/2018. There is again mild bibasilar fibroatelectatic change which appears essentially stable. No acute infiltrate is seen. Heart is normal in size. Mediastinal silhouette is unchanged. IMPRESSION: No acute infiltrate. Electronically Signed by Brigido Barcenas MD 11/01/2018 01:40 P
[2018-10-28] MEDS: ANEXSIA, NORCO 7.5MG/325MG TABLET(HYDROCODONE/APAP) PO PRN (11:21)
[2018-10-28 11:36] VITALS: BP 131/73
[2018-10-28 17:25] VITALS: BP 139/63
[2018-10-28] MEDS ORDERED: SLF 3 ML SYR IV PRN (17:45)
[2018-10-28 20:00] VITALS: BP 129/82
[2018-10-28] MEDS: ATORVASTATIN 20 MG TAB PO SCH (20:05)
[2018-10-28] MEDS: SERTRALINE 100 MG TAB PO SCH (20:05)
[2018-10-28] MEDS: GABAPENTIN 400 MG CAP PO SCH (20:05)
[2018-10-28] MEDS: SLF 3 ML SYR IV SCH (21:46)
[2018-10-28 23:59] VITALS: BP 132/60
[2018-10-29] MEDS: IPRATROPIUM 0.5MG/ALBUTEROL 2.5MG INH SOL UD 3ML (DUONEB)(J7620) NEB SCH ×7 (00:55→23:36)
[2018-10-29 04:00] VITALS: BP 150/86
[2018-10-29] MEDS: LEVOTHYROXINE 25MCG TABLET (0.025MG) PO SCH (05:41)
[2018-10-29] MEDS: SLF 3 ML SYR IV SCH ×3 (05:41→20:16)
[2018-10-29] MEDS: methylPREDNISolone INJ 125 MG/2 ML VIAL (J2930) IV SCH ×3 (05:41→21:10)
[2018-10-29 06:52] LABS: HEMATOCRIT 40.1 % (36.0-47.0); HEMOGLOBIN 12.9 g/dl (12.0-15.5); MEAN CORPUSCULAR HEMOGLOBIN 31.5 pg (27.0-33.0); MEAN CORPUSCULAR HGB CONC 32.2 g/dl (32.0-36.5); MEAN CORPUSCULAR VOLUME 97.8 fl (80.0-96.0); PLATELET COUNT, AUTOMATED 289 10^3/uL (150-450); WHITE BLOOD COUNT 16.2 10^3/uL (4.0-10.0)
[2018-10-29] MEDS: TIOTROPIUM INHALER/CAPSULE (SPIRIVA) INH SCH (07:11)
[2018-10-29 07:15] LABS: BLOOD UREA NITROGEN 14 MG/DL (7-18); CALCIUM LEVEL 8.8 MG/DL (8.8-10.2); CARBON DIOXIDE LEVEL 38 MEQ/L (21-32); CHLORIDE LEVEL 91 MEQ/L (98-107); CREATININE FOR GFR 0.55 MG/DL (0.55-1.30); GLOMERULAR FILTRATION RATE > 60.0 (>45); GLUCOSE, FASTING 346 MG/DL (70-100); POTASSIUM SERUM 4.3 MEQ/L (3.5-5.1); SODIUM LEVEL 135 MEQ/L (136-145)
[2018-10-29 07:55] VITALS: BP 141/68
[2018-10-29] MEDS: ENOXAPARIN 40 MG/0.4 ML SYRINGE (J1650) SC SCH (08:32)
[2018-10-29] MEDS: hydrOXYzine 10MG/5ML SYRUP PO SCH ×3 (08:32→20:15)
[2018-10-29] MEDS: HumaLOG INSULIN (NovoLOG) PER UNIT SC SCH ×4 (08:32→20:16)
[2018-10-29] MEDS: DULoxetine 30 MG CAP (CYMBALTA) PO SCH (08:33)
[2018-10-29] MEDS: PANTOPRAZOLE 40MG TAB (PROTONIX) PO SCH (08:33)
[2018-10-29] MEDS: VARENICLINE 0.5 MG TABLET PO SCH (08:33)
[2018-10-29] MEDS: ASPIRIN 81 MG ENTERIC TAB PO SCH (08:33)
[2018-10-29] MEDS: BISOPROLOL FUMARATE 5 MG TAB PO SCH (08:33)
[2018-10-29] MEDS: ANEXSIA, NORCO 7.5MG/325MG TABLET(HYDROCODONE/APAP) PO PRN (09:54)
[2018-10-29 12:00] VITALS: BP 135/65
[2018-10-29] MEDS: LEVEMIR (INSULIN DETEMIR) 1 UNITS/0.01ML SC SCH ×2 (12:31→20:16)
[2018-10-29 16:00] VITALS: BP 118/59
[2018-10-29 20:00] VITALS: BP 144/70
[2018-10-29] MEDS: SERTRALINE 100 MG TAB PO SCH (20:15)
[2018-10-29] MEDS: GABAPENTIN 400 MG CAP PO SCH (20:15)
[2018-10-29] MEDS: ATORVASTATIN 20 MG TAB PO SCH (20:15)
--- NOTE | 2018-10-29 23:20 | IPNPDOC ---
Text Note Date of Service The patient was seen on 10/29/18. NOTE Patient was seen and examined at bedside. Patient is awake alert and oriented. she states her breathing status has significantly improved. patient is on nasal cannula to maintain O2 saturation > 90% denies any wheezing denies any chest pain or lightheadedness. Subjective: Gen:Denies fever or chills night sweats H&N:Denies headache blurry vision visual changes Respiratory: Patient reports shortness of breath when she ambulates patient states she has occasional cough respiratory secretions are not increased comparing to previous admissions denies any purulent discharge CVS: Denies any chest pain any palpitation and lightheadedness GI:Denies abdominal pain nausea vomiting bowel movement normal :Denies change in urinary habits Skin:Denies any rash or any skin lesion Objective: Gen: Patient is awake and alert VS as indicated below H&N:no trauma normocephalic no scleral icterus plethoric face, monteiro face CVS: no JVD S1-S2 auscultated , no murmur appreciated Chest : No wheezing rales on end of expiration appreciated Ext: No extremity edema no tenderness no cyanosis Vital Signs Date Time Temp Pulse Resp B/P (MAP) Pulse Ox O2 Delivery O2 Flow Rate FiO2 10/30/18 00:00 2.0 10/29/18 23:59 96.6 80 18 154/71 (98) 92 2.0 10/29/18 20:00 96.5 90 18 144/70 (94) 90 2.0 10/29/18 20:00 2.0 10/29/18 16:00 96.9 75 22 118/59 (78) 92 2.0 10/29/18 16:00 2.0 10/29/18 12:00 98.6 99 22 135/65 (88) 89 2.0 10/29/18 12:00 2.0 10/29/18 10:24 16 10/29/18 09:54 16 10/29/18 08:33 100 141/68 10/29/18 08:00 2.0 10/29/18 07:55 98.0 100 22 141/68 (92) 88 2.0 10/29/18 04:00 97.3 101 18 150/86 (107) 92 2.0 10/29/18 04:00 2.0 Intake & Output 10/30/18 06:00 Intake Total 3120 ml Output Total 3850 ml Balance -730 ml Laboratory Tests 10/29/18 06:39: White Blood Count 16.2H, Red Blood Count 4.10, Hemoglobin 12.9, Hematocrit 40.1, Mean Corpuscular Volume 97.8H, Mean Corpuscular Hemoglobin 31.5, Mean Corpuscular Hemoglobin Concent 32.2, Red Cell Distribution Width 14.0, Platelet Count 289, Nucleated Red Blood Cells % (auto) 0.0, Blood Urea Nitrogen 14, Creatinine 0.55, Sodium Level 135L, Potassium Level 4.3, Chloride Level 91L, Carbon Dioxide Level 38H, Calcium Level 8.8, Anion Gap 6L, Glomerular Filtration Rate > 60.0, Fasting Glucose 346H 10/29/18 11:09: Bedside Glucose (Misc Panel) 489H 10/29/18 16:57: Bedside Glucose (Misc Panel) 297H 10/29/18 20:08: Bedside Glucose (Misc Panel) 402H Current Medications Medications (Trade) Dose Ordered Sig/Chet Route PRN Reason Start Time Stop Time Status Last Admin Dose Admin Acetaminophen/ Hydrocodone Bitart (Anexsia, [place] 7.5mg/325mg) 1 tab BID PRN PO PAIN 10/28/18 00:00 10/29/18 09:54 1 TAB Albuterol/ Ipratropium (Duoneb (Ipr 0.5mg/Alb 2.5mg)) 3 ml RQ4H NEB 10/28/18 00:00 10/29/18 23:36 3 ML Aripiprazole (AbiLIFY) 2.5 mg QHS PO 10/28/18 21:00 10/29/18 20:15 2.5 MG Aspirin (Ecotrin) 81 mg DAILY PO 10/28/18 09:00 10/29/18 08:33 81 MG Atorvastatin Calcium (Lipitor) 80 mg QHS PO 10/28/18 21:00 10/29/18 20:15 80 MG Azithromycin 500 mg/IV Miscellaneous Supplies 1 each/ Dextrose 255 ml @ 255 mls/hr Q24H IV 10/28/18 00:00 10/30/18 00:16 255 MLS/HR Bisoprolol Fumarate (Zebeta) 2.5 mg DAILY PO 10/28/18 09:00 10/29/18 08:33 2.5 MG Duloxetine HCl (Cymbalta) 60 mg DAILY PO 10/28/18 09:00 10/29/18 08:33 60 MG Enoxaparin Sodium (Lovenox) 40 mg DAILY SC 10/28/18 09:00 10/29/18 08:32 40 MG Gabapentin (Neurontin) 800 mg QHS PO 10/28/18 21:00 10/29/18 20:15 800 MG Hydroxyzine HCl (Atarax Syrup) 10 mg TID PO 10/28/18 09:00 10/29/18 20:15 10 MG Insulin Detemir (Levemir Insulin) 10 units BID SC 10/29/18 09:00 10/29/18 20:16 10 UNITS Insulin Human Lispro (HumaLOG INSULIN) SEE PROTOCOL TABLE QHS SC 10/27/18 21:00 10/29/18 20:16 8 UNITS Levothyroxine Sodium (Synthroid) 25 mcg DAILY@0600 PO 10/28/18 06:00 10/29/18 05:41 25 MCG Methylprednisolone (SOLUmedrol) 60 mg Q8H IV 10/28/18 06:00 10/29/18 21:10 60 MG Pantoprazole Sodium (Protonix) 40 mg DAILY PO 10/28/18 09:00 10/29/18 08:33 40 MG Sertraline HCl (Zoloft) 100 mg QHS PO 10/28/18 21:00 10/29/18 20:15 100 MG Sodium Chloride (Saline Lock Flush) 2 ml SLF IV 10/28/18 22:00 10/29/18 20:16 2 ML Tiotropium [place] (Spiriva Handihaler) 1 inhalation DAILY@0800 INH 10/28/18 08:00 10/29/18 07:11 1 INHALATION Varenicline (Chantix) 0.5 mg DAILY PO 10/28/18 09:00 10/29/18 08:33 0.5 MG Patient is a 62-year-old female with history of COPD on long-term oxygen therapy at home patient requires frequent admission due to worsening shortness of breath recently discharged last week current admission presented with increasing shortness of breath and wheezing admitted for COPD exacerbation upon my evaluation patient has significantly improved continue current nebulizer treatments IV steroid decreased to 60 mg every 12 hr, discontinue antibiotics as there is no evidence of increased pulmonary secretions or infection. 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 VS,Fishbone, I+O VS, Fishbone, I+O Laboratory Tests 10/29/18 06:39 Red Blood Count 4.10, Mean Corpuscular Volume 97.8 H, Mean Corpuscular Hemoglobin 31.5, Mean Corpuscular Hemoglobin Concent 32.2, Red Cell Distribution Width 14.0, Calcium Level 8.8 Vital Signs Date Time Temp Pulse Resp B/P (MAP) Pulse Ox O2 Delivery O2 Flow Rate FiO2 10/29/18 20:00 96.5 90 18 144/70 (94) 90 2.0 10/29/18 00:55 Nasal Cannula I&O- Last 24 Hours up to 6 AM 10/29/18 06:00 Intake Total 1800 ml Output Total 4350 ml Balance -2550 ml BIANCA REGALADO MD Oct 29, 2018 23:20
[2018-10-29 23:59] VITALS: BP 154/71
[2018-10-30] MEDS: AZITHROMYCIN INJ 500 MG, VIAL MATE ADAPTER 1 EACH in D5W 250 ML IV SCH (00:16)
[2018-10-30 04:00] VITALS: BP 139/85
[2018-10-30] MEDS: IPRATROPIUM 0.5MG/ALBUTEROL 2.5MG INH SOL UD 3ML (DUONEB)(J7620) NEB SCH ×6 (04:03→23:00)
[2018-10-30] MEDS: LEVOTHYROXINE 25MCG TABLET (0.025MG) PO SCH (06:19)
[2018-10-30] MEDS: SLF 3 ML SYR IV SCH ×3 (06:20→21:15)
[2018-10-30 07:40] VITALS: BP 152/75
--- NOTE | 2018-10-30 07:48 | ECGEPIP ---
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
[2018-10-30] MEDS: TIOTROPIUM INHALER/CAPSULE (SPIRIVA) INH SCH (07:57)
[2018-10-30 08:15] LABS: HEMATOCRIT 38.4 % (36.0-47.0); HEMOGLOBIN 12.2 g/dl (12.0-15.5); MEAN CORPUSCULAR HEMOGLOBIN 29.8 pg (27.0-33.0); MEAN CORPUSCULAR HGB CONC 31.8 g/dl (32.0-36.5); MEAN CORPUSCULAR VOLUME 93.7 fl (80.0-96.0); PLATELET COUNT, AUTOMATED 286 10^3/uL (150-450); WHITE BLOOD COUNT 13.1 10^3/uL (4.0-10.0)
[2018-10-30] MEDS: LEVEMIR (INSULIN DETEMIR) 1 UNITS/0.01ML SC SCH ×2 (08:22→20:16)
[2018-10-30] MEDS: HumaLOG INSULIN (NovoLOG) PER UNIT SC SCH ×4 (08:22→20:17)
[2018-10-30] MEDS: hydrOXYzine 10MG/5ML SYRUP PO SCH ×3 (08:23→20:19)
[2018-10-30] MEDS: ENOXAPARIN 40 MG/0.4 ML SYRINGE (J1650) SC SCH (08:23)
[2018-10-30] MEDS: DULoxetine 30 MG CAP (CYMBALTA) PO SCH (08:24)
[2018-10-30] MEDS: VARENICLINE 0.5 MG TABLET PO SCH (08:25)
[2018-10-30] MEDS: BISOPROLOL FUMARATE 5 MG TAB PO SCH (08:25)
[2018-10-30] MEDS: ASPIRIN 81 MG ENTERIC TAB PO SCH (08:25)
[2018-10-30] MEDS: PANTOPRAZOLE 40MG TAB (PROTONIX) PO SCH (08:28)
[2018-10-30 08:43] LABS: BLOOD UREA NITROGEN 11 MG/DL (7-18); CALCIUM LEVEL 8.7 MG/DL (8.8-10.2); CARBON DIOXIDE LEVEL 38 MEQ/L (21-32); CHLORIDE LEVEL 95 MEQ/L (98-107); CREATININE FOR GFR 0.53 MG/DL (0.55-1.30); GLOMERULAR FILTRATION RATE > 60.0 (>45); GLUCOSE, FASTING 317 MG/DL (70-100); POTASSIUM SERUM 3.9 MEQ/L (3.5-5.1); SODIUM LEVEL 138 MEQ/L (136-145)
[2018-10-30] MEDS: ANEXSIA, NORCO 7.5MG/325MG TABLET(HYDROCODONE/APAP) PO PRN (09:43)
[2018-10-30] MEDS ORDERED: methylPREDNISolone INJ 125 MG/2 ML VIAL (J2930) IV SCH (10:00)
[2018-10-30 11:48] VITALS: BP 138/63
[2018-10-30] MEDS: ACETAMINOPHEN TAB 650MG DOSE (2X325MG) PO PRN ×2 (13:03→16:53)
--- NOTE | 2018-10-30 13:59 | IPNPDOC ---
Text Note Date of Service The patient was seen on 10/30/18. NOTE Patient was seen and examined at bedside. Patient is awake alert and oriented. she states her breathing status has significantly improved. patient is on nasal cannula to maintain O2 saturation > 90% denies any wheezing denies any chest pain or lightheadedness. Pt face plethoric due to chronic use of steroids. Subjective: Gen:Denies fever or chills night sweats H&N:Denies headache blurry vision visual changes Respiratory: Patient reports shortness of breath when she ambulates patient states she has occasional cough respiratory secretions are not increased comparing to previous admissions denies any purulent discharge CVS: Denies any chest pain any palpitation and lightheadedness GI:Denies abdominal pain nausea vomiting bowel movement normal :Denies change in urinary habits Skin:Denies any rash or any skin lesion Objective: Gen: Patient is awake and alert VS as indicated below H&N:no trauma normocephalic no scleral icterus plethoric face, monteiro face CVS: no JVD S1-S2 auscultated , no murmur appreciated Chest : No wheezing rales on end of expiration appreciated Ext: No extremity edema no tenderness no cyanosis Vital Signs Date Time Temp Pulse Resp B/P (MAP) Pulse Ox O2 Delivery O2 Flow Rate FiO2 10/30/18 12:00 2.0 10/30/18 11:48 96.7 84 18 138/63 (88) 91 2.0 10/30/18 10:13 16 10/30/18 09:43 16 10/30/18 08:25 73 152/75 10/30/18 08:00 2.0 10/30/18 07:40 96.9 73 18 152/75 (100) 92 2.0 10/30/18 04:00 97.8 89 18 139/85 (103) 94 2.0 10/30/18 04:00 2.0 10/30/18 00:00 2.0 10/29/18 23:59 96.6 80 18 154/71 (98) 92 2.0 10/29/18 20:00 96.5 90 18 144/70 (94) 90 2.0 10/29/18 20:00 2.0 10/29/18 16:00 96.9 75 22 118/59 (78) 92 2.0 10/29/18 16:00 2.0 Intake & Output 10/30/18 06:00 Intake Total 4020 ml Output Total 6050 ml Balance -2030 ml Laboratory Tests 10/29/18 16:57: Bedside Glucose (Misc Panel) 297H 10/29/18 20:08: Bedside Glucose (Misc Panel) 402H 10/30/18 07:49: Bedside Glucose (Misc Panel) 301H 10/30/18 07:59: White Blood Count 13.1H, Red Blood Count 4.10, Hemoglobin 12.2, Hematocrit 38.4, Mean Corpuscular Volume 93.7, Mean Corpuscular Hemoglobin 29.8, Mean Corpuscular Hemoglobin Concent 31.8L, Red Cell Distribution Width 14.1, Platelet Count 286, Nucleated Red Blood Cells % (auto) 0.0, Blood Urea Nitrogen 11, Creatinine 0.53L, Sodium Level 138, Potassium Level 3.9, Chloride Level 95L, Carbon Dioxide Level 38H, Calcium Level 8.7L, Anion Gap 5L, Glomerular Filtration Rate > 60.0, Fasting Glucose 317H 10/30/18 11:35: Bedside Glucose (Misc Panel) 358H Current Medications Medications (Trade) Dose Ordered Sig/Chet Route PRN Reason Start Time Stop Time Status Last Admin Dose Admin Acetaminophen (Tylenol Tab) 650 mg Q4H PRN PO PAIN OR FEVER 10/27/18 22:45 10/30/18 13:03 650 MG Acetaminophen/ Hydrocodone Bitart (Anexsia, [place] 7.5mg/325mg) 1 tab BID PRN PO PAIN 10/28/18 00:00 10/30/18 09:43 1 TAB Albuterol/ Ipratropium (Duoneb (Ipr 0.5mg/Alb 2.5mg)) 3 ml RQ4H NEB 10/28/18 00:00 10/30/18 11:48 3 ML Aripiprazole (AbiLIFY) 2.5 mg QHS PO 10/28/18 21:00 10/29/18 20:15 2.5 MG Aspirin (Ecotrin) 81 mg DAILY PO 10/28/18 09:00 10/30/18 08:25 81 MG Atorvastatin Calcium (Lipitor) 80 mg QHS PO 10/28/18 21:00 10/29/18 20:15 80 MG Azithromycin 500 mg/IV Miscellaneous Supplies 1 each/ Dextrose 255 ml @ 255 mls/hr Q24H IV 10/28/18 00:00 10/30/18 00:16 255 MLS/HR Bisoprolol Fumarate (Zebeta) 2.5 mg DAILY PO 10/28/18 09:00 10/30/18 08:25 2.5 MG Duloxetine HCl (Cymbalta) 60 mg DAILY PO 10/28/18 09:00 10/30/18 08:24 60 MG Enoxaparin Sodium (Lovenox) 40 mg DAILY SC 10/28/18 09:00 10/30/18 08:23 40 MG Gabapentin (Neurontin) 800 mg QHS PO 10/28/18 21:00 10/29/18 20:15 800 MG Hydroxyzine HCl (Atarax Syrup) 10 mg TID PO 10/28/18 09:00 10/30/18 08:23 10 MG Insulin Detemir (Levemir Insulin) 10 units BID SC 10/29/18 09:00 10/30/18 08:22 10 UNITS Insulin Human Lispro (HumaLOG INSULIN) SEE PROTOCOL TABLE QHS SC 10/27/18 21:00 10/29/18 20:16 8 UNITS Levothyroxine Sodium (Synthroid) 25 mcg DAILY@0600 PO 10/28/18 06:00 10/30/18 06:19 25 MCG Methylprednisolone (SOLUmedrol) 60 mg Q12H IV 10/30/18 10:00 10/30/18 09:03 60 MG Pantoprazole Sodium (Protonix) 40 mg DAILY PO 10/28/18 09:00 10/30/18 08:28 40 MG Sertraline HCl (Zoloft) 100 mg QHS PO 10/28/18 21:00 10/29/18 20:15 100 MG Sodium Chloride (Saline Lock Flush) 2 ml SLF IV 10/28/18 22:00 10/30/18 06:20 2 ML Tiotropium Ethel (Spiriva Handihaler) 1 inhalation DAILY@0800 INH 10/28/18 08:00 10/30/18 07:57 1 INHALATION Varenicline (Chantix) 0.5 mg DAILY PO 10/28/18 09:00 10/30/18 08:25 0.5 MG Patient is a 62-year-old female with history of COPD on long-term oxygen therapy at home patient requires frequent admission due to worsening shortness of breath recently discharged last week current admission presented with increasing shortness of breath and wheezing admitted for COPD exacerbation upon my evaluation patient has significantly improved , continue current nebulizer treatments IV steroid decreased to 40 mg every 12 hr, discontinue antibiotics as there is no evidence of increased pulmonary secretions or infection. for chronic comorbid conditions will continue current management Anticipate discharge on Thursday patient is on Advair inhaler as well as Spiriva and albuterol as needed, Will continue same upon discharge with tapering dose of steroids. 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 1-Advanced stage COPD on Home O2 2-Type 2 Diabetes Mellitus 3-Hypothyroidism SW for new home services Encourage ambulation Glycemic control with fingersticks before meals and at bedtime as needed shorter acting insulin coverage and Levemir increased to 15u BID. VS,Fishbone, I+O VS, Fishbone, I+O Laboratory Tests 10/30/18 07:59 Red Blood Count 4.10, Mean Corpuscular Volume 93.7, Mean Corpuscular Hemoglobin 29.8, Mean Corpuscular Hemoglobin Concent 31.8 L, Red Cell Distribution Width 14.1, Calcium Level 8.7 L Vital Signs Date Time Temp Pulse Resp B/P (MAP) Pulse Ox O2 Delivery O2 Flow Rate FiO2 10/30/18 12:00 2.0 10/30/18 11:48 96.7 84 18 138/63 (88) 91 10/29/18 00:55 Nasal Cannula I&O- Last 24 Hours up to 6 AM 10/30/18 06:00 Intake Total 4020 ml Output Total 6050 ml Balance -2030 ml BIANCA REGALADO MD Oct 30, 2018 13:59
[2018-10-30 16:00] VITALS: BP 138/65
[2018-10-30 20:00] VITALS: BP 147/71
[2018-10-30] MEDS: GABAPENTIN 400 MG CAP PO SCH (20:19)
[2018-10-30] MEDS: SERTRALINE 100 MG TAB PO SCH (20:19)
[2018-10-30] MEDS: ATORVASTATIN 20 MG TAB PO SCH (20:19)
[2018-10-30] MEDS: methylPREDNISolone INJ 125 MG/2 ML VIAL (J2930) IV SCH (21:15)
[2018-10-31] VITALS: BP 146/81
[2018-10-31] MEDS: AZITHROMYCIN INJ 500 MG, VIAL MATE ADAPTER 1 EACH in D5W 250 ML IV SCH (00:37)
[2018-10-31] MEDS: IPRATROPIUM 0.5MG/ALBUTEROL 2.5MG INH SOL UD 3ML (DUONEB)(J7620) NEB SCH ×3 (03:40→11:56)
[2018-10-31 04:00] VITALS: BP 143/74
[2018-10-31] MEDS: LEVOTHYROXINE 25MCG TABLET (0.025MG) PO SCH (05:45)
[2018-10-31] MEDS: SLF 3 ML SYR IV SCH (05:45)
[2018-10-31 07:50] VITALS: BP 159/85
[2018-10-31] MEDS: TIOTROPIUM INHALER/CAPSULE (SPIRIVA) INH SCH (07:52)
[2018-10-31] MEDS: ENOXAPARIN 40 MG/0.4 ML SYRINGE (J1650) SC SCH (08:11)
[2018-10-31] MEDS: LEVEMIR (INSULIN DETEMIR) 1 UNITS/0.01ML SC SCH (08:12)
[2018-10-31] MEDS: hydrOXYzine 10MG/5ML SYRUP PO SCH (08:12)
[2018-10-31] MEDS: HumaLOG INSULIN (NovoLOG) PER UNIT SC SCH ×2 (08:12→12:24)
[2018-10-31] MEDS: VARENICLINE 0.5 MG TABLET PO SCH (08:13)
[2018-10-31] MEDS: PANTOPRAZOLE 40MG TAB (PROTONIX) PO SCH (08:13)
[2018-10-31] MEDS: DULoxetine 30 MG CAP (CYMBALTA) PO SCH (08:13)
[2018-10-31] MEDS: ASPIRIN 81 MG ENTERIC TAB PO SCH (08:13)
[2018-10-31 08:14] VITALS: BP 159/85
[2018-10-31] MEDS: BISOPROLOL FUMARATE 5 MG TAB PO SCH (08:14)
[2018-10-31] MEDS: ANEXSIA, NORCO 7.5MG/325MG TABLET(HYDROCODONE/APAP) PO PRN (09:36)
[2018-10-31] MEDS: methylPREDNISolone INJ 125 MG/2 ML VIAL (J2930) IV SCH (09:37)
[2018-10-31] MEDS ORDERED: PRED20TA PO (10:29)
--- NOTE | 2018-11-01 06:40 | DS.PDOC ---
Discharge Summary General Date of Admission Oct 27, 2018 at 22:38 Discharge Summary PROCEDURES PERFORMED DURING STAY: [None]. ADMITTING DIAGNOSES: 1. . DISCHARGE DIAGNOSES: 1. . COMPLICATIONS/CHIEF COMPLAINT: Copd Exacerbation; Depression. HISTORY OF PRESENT ILLNESS: . HOSPITAL COURSE: . DISCHARGE MEDICATIONS: Please see below. ALLERGIES: Please see below. PHYSICAL EXAMINATION ON DISCHARGE: VITAL SIGNS: Please see below. GENERAL: HEENT: NECK: CARDIOVASCULAR EXAMINATION: RESPIRATORY EXAMINATION: ABDOMINAL EXAMINATION: EXTREMITIES: SKIN: NEUROLOGICAL EXAMINATION: PSYCHIATRIC EXAMINATION: LABORATORY DATA: Please see below. IMAGING: PROGNOSIS: ACTIVITY: [As tolerated]. DIET: DISCHARGE PLAN: DISPOSITION: Home, Self-Care. DISCHARGE INSTRUCTIONS: 1. . ITEMS TO FOLLOWUP ON ON OUTPATIENT: 1. . DISCHARGE CONDITION: [Stable]. TIME SPENT ON DISCHARGE: Greater than minutes. Vital Signs/I&Os Vital Signs Date Time Temp Pulse Resp B/P (MAP) Pulse Ox O2 Delivery O2 Flow Rate FiO2 10/31/18 10:06 16 10/31/18 08:14 88 159/85 10/31/18 08:00 2.0 10/31/18 07:50 96.9 93 10/29/18 00:55 Nasal Cannula I&O- Last 24 Hours up to 6 AM 11/01/18 06:00 Intake Total 480 ml Output Total 800 ml Balance -320 ml Laboratory Data Labs 24H Laboratory Tests 2 10/31/18 11:45: Bedside Glucose (Misc Panel) 310H FSBS Laboratory Tests Test 10/31/18 11:45 Range/Units Bedside Glucose (Misc Panel) 310 80-115 MG/DL Microbiology Microbiology 10/28/18 Blood Culture - Preliminary, Resulted No Growth after 72 hours. All specime... 10/27/18 Blood Culture - Preliminary, Resulted No Growth after 72 hours. All specime... Discharge Medications Scheduled Aripiprazole (Abilify) 5 Mg Tablet, 2.5 MG PO QHS, (Reported) Aspirin (Aspirin EC) 81 Mg Tabec, 81 MG PO DAILY, (Reported) Atorvastatin Calcium (Lipitor) 80 Mg Tab, 80 MG PO QHS, (Reported) Bisoprolol Fumarate (Bisoprolol Fumarate) 5 Mg Tab, 2.5 MG PO DAILY, (Reported) Duloxetine Hcl (Duloxetine HCl) 60 Mg Cap, 60 MG PO DAILY, (Reported) Ergocalciferol (Vitamin D2) (Drisdol) 50,000 Unit Cap, 50,000 UNIT PO 1XWK, (Reported) FRIDA[place] Fluticasone Propion/Salmeterol (Advair Hfa 230-21 Mcg Inhaler) 1 Aer Aer, 2 PUFF INH BID, (Reported) Fluticasone Propionate (Flonase Allergy Relief) 50 Mcg/Act Spr, 1 SPRAY NA DAILY, (Reported) Gabapentin (Gabapentin) 800 Mg Tab, 800 MG PO QHS, (Reported) Hydroxyzine HCl (Hydroxyzine HCl) 10 Mg/5 Ml Solution, 10 MG PO TID, (Reported) Levothyroxine Sodium (Levoxyl) 25 Mcg Tab, 25 MCG PO DAILY, (Reported) Metformin HCl (Metformin HCl) 1,000 Mg Tab, 1,000 MG PO BID, (Reported) Nicotine (Nicotine Patch) 21 Mg/24 Hr Patch.td24, 21 MG TD DAILY, (Reported) Nystatin (Nystatin Powder) 15 Gm Powder, 1 DOSE TOP QHS, (Reported) USES UNDER BREASTS Pantoprazole Sodium (Pantoprazole Sodium) 40 Mg Tab, 40 MG PO DAILY, (Reported) Prednisone (Prednisone) 20 Mg Tablet, 20 MG PO BID Sertraline HCl (Sertraline HCl) 100 Mg Tablet, 100 MG PO QHS, (Reported) Sucralfate (Sucralfate) 1 Gm Tab, 1 GM PO BID, (Reported) BEFORE BREAKFAST AND DINNER Tiotropium [place] Monohydrate (Spiriva) 18 Mcg Cap.w.dev, 1 INHALATION INH DAILY, (Reported) Varenicline (Chantix) 0.5 Mg Tablet, 0.5 MG PO DAILY, (Reported) Scheduled PRN Albuterol Sulfate (Ventolin Hfa) 108 Mcg/Act Aer, 2 PUFFS INH Q4H PRN for SHORTNESS OF BREATH, (Reported) Hydrocodone/Acetaminophen ([place] 7.5-325 Tablet) 1 Each Tablet, 1 TAB PO BID PRN for PAIN, (Reported) Ipratropium/Albuterol Sulfate (Iprat-Albut 0.5-3(2.5) mg/3 ml) 1 Sommer Sommer, 3 ML INH QID PRN for SHORTNESS OF BREATH, (Reported) Menthol (Bengay) 5% Gel..gram., 1 DOSE TOP QID PRN for PAIN, (Reported) APPLIES TO NECK AND BACK Allergies Coded Allergies: No Known Allergies (Unverified , 08/22/18) BIANCA REGALADO MD Nov 01, 2018 06:40
== END 2018-10-31 12:57 | disposition home or self-care (01) | DRG 192 ==
LOC: M ED 19:40 → M ED INP 22:38 → M PCU 10-28 17:25
PROVIDERS: ADMIT Student in an Organized Health Care Education/Training Program; ATTEND Hospitalist
DX: J44.1 Chronic obstructive pulmonary disease with (acute) exacerbation (principal); F31.9 Bipolar disorder, unspecified; F41.9 Anxiety disorder, unspecified; E11.9 Type 2 diabetes mellitus without complications; I10 Essential (primary) hypertension; F17.200 Nicotine dependence, unspecified, uncomplicated; E03.9 Hypothyroidism, unspecified; I25.10 Atherosclerotic heart disease of native coronary artery without angina pectoris; M79.7 Fibromyalgia; Z99.81 Dependence on supplemental oxygen; Z90.49 Acquired absence of other specified parts of digestive tract; Z79.82 Long term (current) use of aspirin; Z79.84 Long term (current) use of oral hypoglycemic drugs; Z79.52 Long term (current) use of systemic steroids; Z79.899 Other long term (current) drug therapy

== ENCOUNTER 2018-11-04 16:50 | Emergency (ER) | payer MEDICARE, MEDICAID ==
[~2018-11-04] VITALS: Ht 165.1 cm; Wt 90.9 kg
[~2018-11-04 16:50] MED LIST changes: +PRED20TA PO
[2018-11-04] MEDS ORDERED: PRED20TA PO (17:07)
[2018-11-04] MEDS ORDERED: NS 1,000 ML IV SCH (17:36)
[2018-11-04 17:48] LABS: BASO # 0.1 10^3/uL (0.0-0.2); BASO % 0.4 % (0.0-1.0); EOS % 0.1 % (0.0-3.0); HEMATOCRIT 45.4 % (36.0-47.0); HEMOGLOBIN 14.8 g/dl (12.0-15.5); LYMPH # 1.2 10^3/uL (1.5-4.5); LYMPH % 9.1 % (24.0-44.0); MEAN CORPUSCULAR HEMOGLOBIN 31.4 pg (27.0-33.0); MEAN CORPUSCULAR HGB CONC 32.6 g/dl (32.0-36.5); MEAN CORPUSCULAR VOLUME 96.2 fl (80.0-96.0); MONO # 0.8 10^3/uL (0.0-0.8); NEUTROPHILS # 11.2 10^3/uL (1.8-7.7); NEUTROPHILS % 82.5 % (36.0-66.0); PLATELET COUNT, AUTOMATED 330 10^3/uL (150-450); RED BLOOD COUNT 4.72 10^6/uL (4.00-5.40); WHITE BLOOD COUNT 13.5 10^3/uL (4.0-10.0)
[2018-11-04 17:58] LABS: ALT/SGPT 48 U/L (12-78); BILIRUBIN,DIRECT 0.1 MG/DL (0.0-0.2); BILIRUBIN,TOTAL 0.3 MG/DL (0.2-1.0); BLOOD UREA NITROGEN 18 MG/DL (7-18); CARBON DIOXIDE LEVEL 34 MEQ/L (21-32); CHLORIDE LEVEL 98 MEQ/L (98-107); CK-MB VALUE MASS 2.7 NG/ML (<3.6); CPK CREATINE PHOSPHOKINASE 39 U/L (26-192); CREATININE FOR GFR 0.66 MG/DL (0.55-1.30); GLOMERULAR FILTRATION RATE > 60.0 (>45); GLUCOSE, FASTING 362 MG/DL (70-100); INR 0.9; MB/CK RELATIVE INDEX 6.92 (< OR =4); NT-PRO BNP 122 PG/ML (<125); POTASSIUM SERUM 4.6 MEQ/L (3.5-5.1); PROTHROMBIN TIME 12.2 SECONDS (12.1-14.4); SODIUM LEVEL 140 MEQ/L (136-145); TOTAL PROTEIN 6.5 GM/DL (6.4-8.2); TROPONIN I < 0.02 NG/ML (< 0.10)
[2018-11-04 18:00] LABS: D-DIMER QUANT 434.75 ng/ml (<500)
--- NOTE | 2018-11-04 18:58 | REP ---
HISTORY: Dyspnea. COMPARISON: Multiple. The technique utilized in obtaining the radiograph has magnified the cardiac silhouette and accentuated the interstitial markings. AP and lateral views were obtained. There is basilar fibrosis, status quo. There is no acute cardiopulmonary disease. There is no significant change from the latest prior of 10/27/2018. Electronically Signed by Biju Bhatti DO 11/04/2018 07:08 P
--- NOTE | 2018-11-04 19:59 | REPVR ---
EXAM: US Duplex Bilateral Lower Extremity Veins EXAM DATE/TIME: 11/04/2018 7:40 PM CLINICAL HISTORY: 62 years old, female; Pain; Leg, upper; Bilateral; Additional info: Mild swelling, recent hospitalization TECHNIQUE: Imaging protocol: Real-time duplex ultrasound of the Bilateral Lower Extremities with 2-D meeks scale, color Doppler flow and spectral waveform analysis. Complete exam focused on the bilateral lower extremity veins. COMPARISON: No relevant prior studies available. FINDINGS: Right deep veins: Unremarkable. The common femoral, femoral and popliteal veins are patent without thrombus. Normal Doppler waveforms. Normal compressibility and/or augmentation response. Right superficial veins: Saphenofemoral junction is patent without thrombus. Left deep veins: Unremarkable. The common femoral, femoral and popliteal veins are patent without thrombus. Normal Doppler waveforms. Normal compressibility and/or augmentation response. Left superficial veins: Saphenofemoral junction is patent without thrombus. Soft tissues: Unremarkable. IMPRESSION: No sonographic evidence of deep vein thrombosis. Electronically signed by: Eliazar Wood On 11/04/2018 19:59:44 PM
[2018-11-04 20:15] VITALS: BP 142/70
--- NOTE | 2018-11-05 13:18 | ECGEPIP ---
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 Order Number: [id number] Reading MD: Gamal Neal Measurements Intervals [place] Rate: 111 P: 67 HI: 147 QRS: QRSD: 98 T: 71 QT: 326 QTc: 443 Interpretive Statements SINUS TACHYCARDIA WITH OCCASIONAL VENTRICULAR PREMATURE COMPLEXES POSSIBLE ANTERIOR MYOCARDIAL INFARCTION, OF INDETERMINATE AGE SIMILAR TO 10/27/18 Electronically Signed on 11-05-2018 13:18:18 EDT by Gamal Neal
== END 2018-11-04 20:49 | disposition home or self-care (01) ==
LOC: M ED 16:50 → EDBD 16:50 → M ED 20:49
DX: J44.9 Chronic obstructive pulmonary disease, unspecified (principal); Z99.81 Dependence on supplemental oxygen; I25.10 Atherosclerotic heart disease of native coronary artery without angina pectoris; I25.2 Old myocardial infarction; Z79.899 Other long term (current) drug therapy; Z79.82 Long term (current) use of aspirin; F17.210 Nicotine dependence, cigarettes, uncomplicated

== ENCOUNTER 2018-11-11 22:40 | Inpatient (IN) | payer MEDICARE, MEDICAID ==
[~2018-11-11] VITALS: Ht 165.1 cm; Wt 93.1 kg
[2018-11-11] MEDS ORDERED: LORazepam 2 MG/ML VIAL (J2060) IV STA (22:58)
[2018-11-11] MEDS ORDERED: dexameTHASONE 20 MG/5 ML VIAL (J1100) IV ONE (23:00)
[2018-11-11] MEDS ORDERED: IPRATROPIUM 0.5MG/ALBUTEROL 2.5MG INH SOL UD 3ML (DUONEB)(J7620) NEB ONE (23:00)
[2018-11-11 23:15] VITALS: O2SAT 94
[2018-11-12] VITALS (15 sets, daily range): BP systolic 120–141; BP diastolic 56–72; O2SAT 93–96
[2018-11-12] LABS: ALBUMIN 2.6 GM/DL (3.2-5.2); ALT/SGPT 31 U/L (12-78); BILIRUBIN,DIRECT 0.1 MG/DL (0.0-0.2); BILIRUBIN,TOTAL 0.3 MG/DL (0.2-1.0); BLOOD UREA NITROGEN 9 MG/DL (7-18); CALCIUM LEVEL 8.8 MG/DL (8.8-10.2); CARBON DIOXIDE LEVEL 40 MEQ/L (21-32); CHLORIDE LEVEL 97 MEQ/L (98-107); CK-MB VALUE MASS 5.2 NG/ML (<3.6); CPK CREATINE PHOSPHOKINASE 53 U/L (26-192); CREATININE FOR GFR 0.46 MG/DL (0.55-1.30); GLOMERULAR FILTRATION RATE > 60.0 (>45); GLUCOSE, FASTING 262 MG/DL (70-100); MB/CK RELATIVE INDEX 9.81 (< OR =4); NT-PRO BNP 731 PG/ML (<125); POTASSIUM SERUM 4.3 MEQ/L (3.5-5.1); SODIUM LEVEL 140 MEQ/L (136-145); THYROID STIMULATING HORMONE 0.997 uIU/ML (0.358-3.740); THYROXINE (T4) 8.2 UG/DL (4.5-12.0); TOTAL PROTEIN 6.1 GM/DL (6.4-8.2); TROPONIN I < 0.02 NG/ML (< 0.10)
[2018-11-12 00:05] LABS: BASO # 0.1 10^3/uL (0.0-0.2); BASO % 0.5 % (0.0-1.0); EOS # 0.1 10^3/uL (0.0-0.50); EOS % 0.8 % (0.0-3.0); HEMATOCRIT 42.7 % (36.0-47.0); HEMOGLOBIN 13.5 g/dl (12.0-15.5); LYMPH % 16.9 % (24.0-44.0); MEAN CORPUSCULAR HEMOGLOBIN 31.3 pg (27.0-33.0); MEAN CORPUSCULAR HGB CONC 31.6 g/dl (32.0-36.5); MEAN CORPUSCULAR VOLUME 98.8 fl (80.0-96.0); MONO # 0.9 10^3/uL (0.0-0.8); MONO % 7.2 % (0.0-5.0); NEUTROPHILS # 8.6 10^3/uL (1.8-7.7); NEUTROPHILS % 73.2 % (36.0-66.0); PLATELET COUNT, AUTOMATED 332 10^3/uL (150-450); RED BLOOD COUNT 4.32 10^6/uL (4.00-5.40); WHITE BLOOD COUNT 11.8 10^3/uL (4.0-10.0)
[2018-11-12] MEDS ORDERED: LORazepam 0.5 MG TAB PO PRN (02:15)
[2018-11-12] MEDS ORDERED: GLUCAGON FOR INJ 1 MG VIAL (J1610) SC PRN (02:30)
[2018-11-12] MEDS ORDERED: GLUCOSE 4 GM CHEW TABLET PO PRN (02:30)
[2018-11-12] MEDS ORDERED: DEXTROSE 50% 50 ML SYRINGE IV PRN (02:30)
[2018-11-12] MEDS ORDERED: PRED5TA PO (02:35)
[2018-11-12] MEDS ORDERED: HYDR1CAP25 PO (02:35)
[2018-11-12] MEDS ORDERED: FLUO20CA19 PO (02:35)
[2018-11-12] MEDS ORDERED: JANU100T PO (02:35)
[2018-11-12] MEDS ORDERED: CEPH500C PO (02:45)
[2018-11-12] MEDS ORDERED: PROC10TA4 PO (02:45)
[2018-11-12] MEDS ORDERED: FUROSEMIDE 40 MG/4 ML VIAL (J1940) IV ONE (03:00)
[2018-11-12] MEDS: IPRATROPIUM 0.5MG/ALBUTEROL 2.5MG INH SOL UD 3ML (DUONEB)(J7620) NEB SCH ×2 (04:00→07:18)
--- NOTE | 2018-11-12 04:50 | HPEPDOC ---
General Date of Admission 11/12/18 Date of Service: Nov 12, 2018 Chief Complaint The patient is a 62-year-old female admitted with a reason for visit of Difficulty Breathing. Source: Patient, RN/MD, Old records Exam Limitations: Physical impairment Severity: Severe Associated Symptoms: Cough History of Present Illness 62 year old female with COPD, chronic respiratory failure with hypoxia and hypercarbia on 2 L oxygen at home, SUYAPA, Bipolar disorder, anxiety, diabetes, Hypertension, Hypothyroid, CAD, obesity presented to the ED for worsening SOB along with increased cough and chest tightness for 1 day. She does not have much phlegm production She aso complained of leg swelling. Patient was last discharg ed from the hospital on 11/01/18. Then she had an ED visit on 11/04/18. Then she comes in today. This is her 8th hospitalization this year. She was extremely anxious when she first arrived. She could not talk in full sentences and was using her accessory muscles of respiration. ABG in the ED showed 7.25/ pco2 95, po2 160. She initially refused BIPAP but she was give ativan 0.5 mg for her anxiety then she agreed to the BIPAP. ABG after 1 hour showed definite improvement pH 7.35/pCO2 72/pO2 69. She was admitted for acute on chronic respiratory failure with hypoxia and hypercarbia due to advanced COPD and possibly chf. Home Medications Scheduled Aripiprazole (Abilify) 5 Mg Tablet, 2.5 MG PO QHS, (Reported) Aspirin (Aspirin EC) 81 Mg Tabec, 81 MG PO DAILY, (Reported) Atorvastatin Calcium (Lipitor) 80 Mg Tab, 80 MG PO QHS, (Reported) Bisoprolol Fumarate (Bisoprolol Fumarate) 5 Mg Tab, 2.5 MG PO DAILY, (Reported) Cephalexin (Cephalexin) 500 Mg Capsule, 500 MG PO QID, (Reported) Ergocalciferol (Vitamin D2) (Drisdol) 50,000 Unit Cap, 50,000 UNIT PO 1XWK, (Reported) FRIDAYS Fluoxetine Hcl (Fluoxetine HCl) 20 Mg Capsule, 20 MG PO DAILY, (Reported) Fluticasone Propion/Salmeterol (Advair Hfa 230-21 Mcg Inhaler) 1 Aer Aer, 2 PUFF INH BID, (Reported) Fluticasone Propionate (Flonase Allergy Relief) 50 Mcg/Act Spr, 1 SPRAY NA DAILY, (Reported) Gabapentin (Gabapentin) 800 Mg Tab, 800 MG PO TID, (Reported) Hydroxyzine Pamoate (Hydroxyzine Pamoate) 25 Mg Capsule, 25 MG PO TID, (Reported) Levothyroxine Sodium (Levoxyl) 25 Mcg Tab, 25 MCG PO DAILY, (Reported) Metformin HCl (Metformin HCl) 1,000 Mg Tab, 1,000 MG PO BID, (Reported) Nystatin (Nystatin Powder) 15 Gm Powder, 1 DOSE TOP QHS, (Reported) USES UNDER BREASTS Pantoprazole Sodium (Pantoprazole Sodium) 40 Mg Tab, 40 MG PO DAILY, (Reported) Prednisone (Prednisone) 5 Mg Tablet, 5 MG PO DAILY, (Reported) Prochlorperazine Maleate (Prochlorperazine Maleate) 10 Mg Tablet, 10 MG PO TID, (Reported) Sitagliptin Phosphate (Januvia) 100 Mg Tablet, 100 MG PO DAILY, (Reported) Tiotropium [place] Monohydrate (Spiriva) 18 Mcg Cap.w.dev, 1 INHALATION INH DAILY, (Reported) Varenicline (Chantix) 0.5 Mg Tablet, 0.5 MG PO DAILY, (Reported) Scheduled PRN Albuterol Sulfate (Ventolin Hfa) 108 Mcg/Act Aer, 2 PUFFS INH Q4H PRN for SHORTNESS OF BREATH, (Reported) Hydrocodone/Acetaminophen ([place] 7.5-325 Tablet) 1 Each Tablet, 1 TAB PO BID PRN for PAIN, (Reported) Ipratropium/Albuterol Sulfate (Iprat-Albut 0.5-3(2.5) mg/3 ml) 1 Sommer Sommer, 3 ML INH QID PRN for SHORTNESS OF BREATH, (Reported) Menthol (Bengay) 5% Gel..gram., 1 DOSE TOP QID PRN for PAIN, (Reported) APPLIES TO NECK AND BACK Allergies Coded Allergies: No Known Allergies (Unverified , 08/22/18) Past Medical History Medical History Chronic respiratory failure with hypoxia and hypercarbia Chronic obstructive pulmonary disease (COPD) SUYAPA does not use CPAP Major depressive disorder Bipolar, anxiety disorder, adjustment disorder History of Cannabis use disorder. Nonobstructive Coronary artery disease with history of NSTEMI 2013 Degenerative disc disease with chronic musculoskeletal pain and muscle spasm. Chronic low back pain on narcotics Sacroiliac joint pain and myofascial pain. Fibromyalgia. Osteoarthritis Gastroesophageal reflux disease (GERD). Hypertension. Hyperlipidemia Diabetes Obesity Hypothyroidism. Adrenal nodule on the right, seems to be adrenal adenoma. Lung nodule Surgical History Cholecystectomy. Cardiac catheterization without stent. History of breast biopsy. Dilation and curettage. Tubal ligation. Tonsillectomy. Exploratory laparotomy. 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 A-FIB/CHADSVASC A-FIB History Current/History of A-Fib/PAF?: No Review of Systems Constitutional: Denies: Chills, Fever, Night Sweats Eyes: Denies: Pain, Vision change ENT: Denies: Head Aches, Ear Pain, Dysphagia Skin: Denies: Rash, Lesions, Breakdown Pulmonary: Reports: Dyspnea, Cough Cardiovascular: Reports: Orthopnea, Edema Gastrointestinal: Denies: Nausea, Vomiting, Abdominal Pain, Diarrhea Genitourinary: Denies: Dysuria, Frequency, Incontinence, Retention Hematologic: Denies: Bruising, Bleeding Excessively Musculoskeletal: Reports: Back Pain, Muscle Pain, Spasms; Denies: Neck Pain Psych: Reports: Anxiety, Depression Physical Examination General Exam: Positive: Cooperative, Mild Distress, Other (somnolent but easily arousable) Eye Exam: Positive: PERRLA, Conjunctiva & lids normal, EOMI; Negative: Sclera icteric ENT Exam: Positive: Atraumatic, Mucous membr. moist/pink, Pharynx Normal Neck Exam: Positive: Supple; Negative: JVD, thyromegaly Chest Exam: Positive: Diminished Heart Exam: Positive: Tachycardic, Regular Rhythm, Normal S1, Normal S2, Other; Negative: Irregular Rhythm, Gallops, Murmurs, Rubs Telemetry: Positive: Sinus, Tachycardia Abdomen Exam: Positive: Normal bowel sounds, Soft; Negative: Tenderness, Hepatospenomegaly Extremity Exam: Positive: Edema Skin Exam: Positive: Nl turgor and temperature; Negative: Breakdown, Lesion Vital Signs Vital Signs Date Time Temp Pulse Resp B/P (MAP) Pulse Ox O2 Delivery O2 Flow Rate FiO2 11/11/18 23:39 108 28 125/57 (79) 95 NIPPV (BIPAP/CPAP) 11/11/18 23:24 5.0 11/11/18 23:00 40 6/20/19 22:55 98.5 Laboratory Data Labs 24H Laboratory Tests 2 11/11/18 22:57: POC pH (Misc Panel) 7.256L, POC Base Excess (Misc Panel) 15.0H, POC Saturated Percent O2 (Misc) 99H, POC pO2 (Misc Panel) 160.0H, POC pCO2 (Misc Panel) 95.6*H, POC HCO3 (Misc Panel) 42.5H, POC Total CO2 (Misc Panel) 45.0H 11/11/18 23:20: Immature Granulocyte % (Auto) 1.4, White Blood Count 11.8H, Red Blood Count 4.3 2, Hemoglobin 13.5, Hematocrit 42.7, Mean Corpuscular Volume 98.8H, Mean Corpuscular Hemoglobin 31.3, Mean Corpuscular Hemoglobin Concent 31.6L, Red Cell Distribution Width 14.6H, Platelet Count 332, Neutrophils (%) (Auto) 73.2H, Lymphocytes (%) (Auto) 16.9L, Monocytes (%) (Auto) 7.2H, Eosinophils (%) (Auto) 0.8, Basophils (%) (Auto) 0.5, Neutrophils # (Auto) 8.6H, Lymphocytes # (Auto) 2.0, Monocytes # (Auto) 0.9H, Eosinophils # (Auto) 0.1, Basophils # (Auto) 0.1, Nucleated Red Blood Cells % (auto) 0.0, Anion Gap 3L, Glomerular Filtration Rate > 60.0, Lactic Acid Level 1.1, Calcium Level 8.8, Aspartate Amino Transf (AST/SGOT) 16, Alanine Aminotransferase (ALT/SGPT) 31, Alkaline Phosphatase 1 19H, Total Bilirubin 0.3, Direct Bilirubin 0.1, Total Creatine Kinase 53, Creatine Kinase MB 5.2H, Creatine Kinase MB Relative Index 9.81H, Troponin I < 0.02, VV-Ijd-K-Type Natriuretic Peptide 731H, Total Protein 6.1L, Albumin 2.6L, Albumin/Globulin Ratio 0.74L, Thyroid Stimulating Hormone (TSH) 0.997, Thyroxine (T4) 8.2 CBC/BMP Laboratory Tests 11/11/18 23:20 Red Blood Count 4.32, Mean Corpuscular Volume 98.8 H, Mean Corpuscular Hemoglobin 31.3, Mean Corpuscular Hemoglobin Concent 31.6 L, Red Cell Distribution Width 14.6 H, Neutrophils (%) (Auto) 73.2 H, Lymphocytes (%) (Auto) 16.9 L, Monocytes (%) (Auto) 7.2 H, Eosinophils (%) (Auto) 0.8, Basophils (%) (Auto) 0.5, Neutrophils # (Auto) 8.6 H, Lymphocytes # (Auto) 2.0, Monocytes # (Auto) 0.9 H, Eosinophils # (Auto) 0.1, Basophils # (Auto) 0.1 Microbiology Microbiology 11/11/18 Blood Culture, Received Pending 11/11/18 Blood Culture, Received Pending Assessment/Plan 62 year old female current smoker with COPD, chronic respiratory failure with hypoxia and hypercarbia, SUYAPA, Bipolar disorder, anxiety, diabetes, Hypertension, Hypothyroid, CAD, obesity presented to the ED for worsening SOB along with increased cough and chest tightness for 1 day, without much phlegm production along with leg swelling. She has been using her nebs at home , took prednisone 40 mg without any relief So called EMS. EMS found to be gasping for air unable to speak in full sentences. Patient was last discharged from the hospital on 10/06/18 She was extremely anxious when she first arrived. She could not talk in full sentences and was using her accessory muscles of respiration. ABG in the ED showed 7.25/ pco2 95, po2 160. She initially refused BIPAP but she was give ativan 0.5 mg for her anxiety then she agreed to the BIPAP. ABG after 1 hour sh owed definite improvement pH 7.35/pCO2 72/pO2 69. She was admitted for acute on chronic respiratory failure with hypoxia and hypercarbia due to advanced COPD and possibly CHF. Acute on Chronic respiratory failure with hypercarbia and hypoxia due to COPD exacerbation with fluid overload. No definite triggers for exacerbation could be identified could be the mild fluid overload. Duonebs q 4 hours, budesonide. Prednisone 40 mg. Continue BIPAP 16/10 with 30% Fio2, maintain spO2 at 87% to 89% Possible CH exacerbation will get echo lasix iv daily. SUYAPA does not use CPAP due to claustrophobia She was given 2 devices over the past 8 years but both were taken away because of noncompliance. continue oxygen supplementation Nonobstructive Coronary artery disease with history of NSTEMI 2012 continue bisoprolol, statin, asa Degenerative disc disease /Chronic low back pain /Sacroiliac joint pain and myofascial pain/ osteoarthritis hold narcotics till abg improves to baseline. . Fibromyalgia. continue cymbalta, gabapentin Gastroesophageal reflux disease (GERD). continue PPI Hypertension. continue bisoprolol Hyperlipidemia continue statin Diabetes will give lispro and levemir in hospital Obesity complicating care Hypothyroidism. continue Synthroid Major depressive disorder without any psychotic features /Bipolar/anxiety disorder/adjustment disorder abilify. ativan 0.5 mg prn Plan / VTE VTE Prophylaxis Ordered?: Yes OLIVIA PORTER MD Nov 12, 2018 00:33
[2018-11-12] MEDS: LEVOTHYROXINE 25MCG TABLET (0.025MG) PO SCH (05:16)
--- NOTE | 2018-11-12 05:56 | ECGEPIP ---
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
[2018-11-12] MEDS: BUDESONIDE 0.5 MG/2 ML INHALATION SUSPENSION INH SCH ×2 (07:18→19:49)
--- NOTE | 2018-11-12 07:39 | REP ---
Portable chest, 11:06 p.m., single AP view with the patient sitting: Comparison is 11/04/2018. Lung cherry are hyperinflated with crowding of the interstitial markings in the lower lung zones, compatible with COPD, however, requiring clinical confirmation. Send there are no acute infiltrates or pleural effusions. The cardiac size is normal. The wesly, mediastinum, skeletal structures are. Impression: There are no acute cardiopulmonary findings. The There are findings compatible with COPD, requiring clinical confirmation. Electronically Signed by Brigido Hinton MD 11/12/2018 07:31 A
[2018-11-12 08:52] LABS: BASO % 0.2 % (0.0-1.0); HEMATOCRIT 40.1 % (36.0-47.0); HEMOGLOBIN 12.9 g/dl (12.0-15.5); LYMPH # 0.4 10^3/uL (1.5-4.5); LYMPH % 4.4 % (24.0-44.0); MEAN CORPUSCULAR HEMOGLOBIN 31.2 pg (27.0-33.0); MEAN CORPUSCULAR HGB CONC 32.2 g/dl (32.0-36.5); MEAN CORPUSCULAR VOLUME 97.1 fl (80.0-96.0); MONO # 0.1 10^3/uL (0.0-0.8); MONO % 1.4 % (0.0-5.0); NEUTROPHILS # 7.4 10^3/uL (1.8-7.7); NEUTROPHILS % 92.8 % (36.0-66.0); PLATELET COUNT, AUTOMATED 312 10^3/uL (150-450); RED BLOOD COUNT 4.13 10^6/uL (4.00-5.40)
[2018-11-12] MEDS ORDERED: VARENICLINE 0.5 MG TABLET PO SCH ×2 (09:00→21:00)
[2018-11-12] MEDS ORDERED: LEVEMIR (INSULIN DETEMIR) 1 UNITS/0.01ML SC SCH (09:00)
[2018-11-12 09:21] LABS: BLOOD UREA NITROGEN 16 MG/DL (7-18); CALCIUM LEVEL 8.8 MG/DL (8.8-10.2); CARBON DIOXIDE LEVEL 37 MEQ/L (21-32); CHLORIDE LEVEL 91 MEQ/L (98-107); CREATININE FOR GFR 0.67 MG/DL (0.55-1.30); GLOMERULAR FILTRATION RATE > 60.0 (>45); GLUCOSE, FASTING 380 MG/DL (70-100); POTASSIUM SERUM 4.2 MEQ/L (3.5-5.1); SODIUM LEVEL 135 MEQ/L (136-145)
[2018-11-12] MEDS: HumaLOG INSULIN (NovoLOG) PER UNIT SC SCH ×3 (09:28→17:12)
[2018-11-12] MEDS: GABAPENTIN 400 MG CAP PO SCH ×3 (09:28→20:08)
[2018-11-12] MEDS: ENOXAPARIN 40 MG/0.4 ML SYRINGE (J1650) SC SCH (09:28)
[2018-11-12] MEDS: ASPIRIN 81 MG ENTERIC TAB PO SCH (09:29)
[2018-11-12] MEDS: CEPHALEXIN 500 MG CAP PO SCH ×4 (09:29→20:06)
[2018-11-12] MEDS: FUROSEMIDE 40 MG/4 ML VIAL (J1940) IV SCH (09:29)
[2018-11-12] MEDS: FLUoxetine 20 MG CAP PO SCH (09:29)
[2018-11-12] MEDS: PANTOPRAZOLE 40MG TAB (PROTONIX) PO SCH (09:33)
[2018-11-12] MEDS: SITagliptin 50 MG TAB (JANUVIA) PO SCH (09:33)
[2018-11-12] MEDS: BISOPROLOL FUM 2.5 MG PER 1/2TAB PO SCH (09:33)
[2018-11-12] MEDS: predniSONE 20 MG TAB PO SCH (09:33)
--- NOTE | 2018-11-12 11:58 | IPNPDOC ---
Date Seen The patient was seen on 11/12/18. Progress Note SUBJECTIVE: Patient is a 62-year-old female with acute on chronic hypercarbic respiratory failure. Patient is evaluated at bedside this morning. She is wearing BiPAP prior to my evaluation. She has been admitted to the hospital for similar symptoms 7x this year. Patient is a smoker, but states that she had her last cigarette on Thursday. She has smoked for many years, about 1.5 packs per day. She follows with a local grain elevator agent and has an appointment on Thursday for further evaluation of her breathing and possible evaluation for sleep apnea. Patient states that she presented to the hospital as she was having difficulty getting air in. There was no chest pain, fevers, n ight sweats, or chills. She did notice lower extremity swelling and was gasping for air. She has not been able to lay flat in bed for many years. She has a hospital bed at home. She wears oxygen 24/7 at 2L. She did need to turn her oxygen up to 2.5L without relief. She states that she does snore. OBJECTIVE PHYSICAL EXAMINATION: VITAL SIGNS: Please see below. GENERAL: Well nourished, well developed female, alert and conversant, answers questions appropriately, no acute distress. HEENT: Atraumatic, normocephalic, PERRL, EOMI, oral mucosa appears pink and moist, nasal septum appears midline, nares are patent. CARDIOVASCULAR: Regular rate and rhythm, normal S1 and S2, no murmur, rub, click. RESPIRATORY: Speaks in full sentences, does not appear breathless, clear to auscultation bilaterally, diminished breath sounds throughout, no definite wheeze, rhonchi, or crackles. ABDOMINAL: Round, soft, non-tender, non-distended, bowel sounds appreciated throughout. EXTREMITIES: +1 pitting edema noted in the bilateral lower extremities, pain with palpation of lower extremities, peripheral pulses equal and symmetrical, +2. NEUROLOGICAL: CN II-XII grossly intact. PSYCHOLOGICAL: Mood and affect appropriate. LABORATORY DATA, IMAGING STUDIES, MICROBIOLOGY: Please see below. DVT prophylaxis ordered?: Lovenox 40mg SQ daily. ASSESSMENT AND PLAN: This is a 62-year-old female with acute on chronic hypercarbic respiratory failure. PROBLEMS: 1. Acute on chronic hypercarbic respiratory failure BiPAP ABG: pH 7.256, pCO2 95.6, pO2 160; repeat ABG: pH 7.355, pCO2 7.21, pO2 69 Repeat ABG for noon C/W Albuterol nebulizer, Pulmicort, Advair, Spiriva; S/P Duoneb's C/W Prednisone; S/P Decadron x1 dose Ordered pulmonary rehabilitation Tobacco cessation counseling; increased Chantix (continued tobacco us contributing to patient's recurrent hospitalizations) Ordered blood cultures Has appointment scheduled with grain elevator agent on 11/15/2018 2. Diabetes mellitus with diabetic neuropathy Holding home dose of Metformin C/W Januvia C/W Gabapentin C/W SSI AC/HS, FSBS AC/HS, hypoglycemic protocol, consistent carbohydrate diet Started Levemir 20 units SQ daily --> may need to adjust based on FSBS 3. Peripheral edema with orthopnea possibly 2/2 heart failure Ordered echocardiogram C/W Furosemide 20mg PO daily 4. CAD with hypertensive heart disease C/W Bisoprolol, ASA, Atorvastatin 5. Depression and mood disorder C/W Aripiprazole, Fluoxetine, Ativan 6. Tobacco abuse Complicating care Increased Chantix DISPOSITION: Pending clinical improvement. VS, I&O, 24H, Fishbone Vital Signs/I&O Vital Signs Date Time Temp Pulse Resp B/P (MAP) Pulse Ox O2 Delivery O2 Flow Rate FiO2 11/12/18 09:33 105 130/56 11/12/18 07:15 30 11/12/18 06:15 94 11/12/18 06:00 23 11/12/18 05:45 BIPAP/CPAP 11/12/18 02:45 97.7 11/11/18 23:24 5.0 I&O- Last 24 Hours up to 6 AM 11/12/18 06:00 Output Total 1675 ml Balance -1675 ml Laboratory Data 24H LABS Laboratory Tests 2 11/11/18 22:57: POC pH (Misc Panel) 7.256L, POC Base Excess (Misc Panel) 15.0H, POC Saturated Percent O2 (Misc) 99H, POC pO2 (Misc Panel) 160.0H, POC pCO2 (Misc Panel) 95.6*H, POC HCO3 (Misc Panel) 42.5H, POC Total CO2 (Misc Panel) 45.0H 11/11/18 23:20: Immature Granulocyte % (Auto) 1.4, White Blood Count 11.8H, Red Blood Count 4.32, Hemoglobin 13.5, Hematocrit 42.7, Mean Corpuscular Volume 98.8H, Mean Corpuscular Hemoglobin 31.3, Mean Corpuscular Hemoglobin Concent 31.6L, Red Cell Distribution Width 14.6H, Platelet Count 332, Neutrophils (%) (Auto) 73.2H, Lymphocytes (%) (Auto) 16.9L, Monocytes (%) (Auto) 7.2H, Eosinophils (%) (Auto) 0.8, Basophils (%) (Auto) 0.5, Neutrophils # (Auto) 8.6H, Lymphocytes # (Auto) 2.0, Monocytes # (Auto) 0.9H, Eosinophils # (Auto) 0.1, Basophils # (Auto) 0.1, Nucleated Red Blood Cells % (auto) 0.0, Anion Gap 3L, Glomerular Filtration Rate > 60.0, Lactic Acid Level 1.1, Calcium Level 8.8, Aspartate Amino Transf (AST/SG OT) 16, Alanine Aminotransferase (ALT/SGPT) 31, Alkaline Phosphatase 119H, Total Bilirubin 0.3, Direct Bilirubin 0.1, Total Creatine Kinase 53, Creatine Kinase MB 5.2H, Creatine Kinase MB Relative Index 9.81H, Troponin I < 0.02, AO-Qgp-[id number]-Type Natriuretic Peptide 731H, Total Protein 6.1L, Albumin 2.6L, Albumin/Globulin Ratio 0.74L, Thyroid Stimulating Hormone (TSH) 0.997, Thyroxine (T4) 8.2 11/12/18 00:25: POC pH (Misc Panel) 7.355, POC Base Excess (Misc Panel) 15.0H, POC Saturated Percent O2 (Misc) 92L, POC pO2 (Misc Panel) 69.0L, POC pCO2 (Misc Panel) 72.1*H, POC HCO3 (Misc Panel) 40.3H, POC Total CO2 (Misc Panel) 42.0H 11/12/18 08:39: Immature Granulocyte % (Auto) 1.2, White Blood Count 8.0, Red Blood Count 4.13, Hemoglobin 12.9, Hematocrit 40.1, Mean Corpuscular Volume 97.1H, Mean Corpuscular Hemoglobin 31.2, Mean Corpuscular Hemoglobin Concent 32.2, Red Cell Distribution Width 14.6H, Platelet Count 312, Neutrophils (%) (Auto) 92.8H, Lymphocytes (%) (Auto) 4.4L, Monocytes (%) (Auto) 1.4, Eosinophils (%) (Auto) 0.0, Basophils (%) (Auto) 0.2, Neutrophils # (Auto) 7.4, Lymphocytes # (Auto) 0.4L, Monocytes # (Auto) 0.1, Eosinophils # (Auto) 0.0, Basophils # (Auto) 0.0, Nucleated Red Blood Cells % (auto) 0.0, Anion Gap 7L, Glomerular Filtration Rate > 60.0, Calcium Level 8.8, Blood Urea Nitrogen 16#, Creatinine 0.67, Sodium Level 135L, Potassium Level 4.2, Chloride Level 91L, Carbon Dioxide Level 37H 11/12/18 08:50: Bedside Glucose (Misc Panel) 383H CBC/BMP Laboratory Tests 11/11/18 23:20 Red Blood Count 4.32, Mean Corpuscular Volume 98.8 H, Mean Corpuscular Hemoglobin 31.3, Mean Corpuscular Hemoglobin Concent 31.6 L, Red Cell Distribution Width 14.6 H, Neutrophils (%) (Auto) 73.2 H, Lymphocytes (%) (Auto) 16.9 L, Monocytes (%) (Auto) 7.2 H, Eosinophils (%) (Auto) 0.8, Basophils (%) (Auto) 0.5, Neutrophils # (Auto) 8.6 H, Lymphocytes # (Auto) 2.0, Monocytes # (Auto) 0.9 H, Eosinophils # (Auto) 0.1, Basophils # (Auto) 0.1 11/12/18 08:39 Red Blood Count 4.13, Mean Corpuscular Volume 97.1 H, Mean Corpuscular Hemoglobin 31.2, Mean Corpuscular Hemoglobin Concent 32.2, Red Cell Distribution Width 14.6 H, Neutrophils (%) (Auto) 92.8 H, Lymphocytes (%) (Auto) 4.4 L, Monocytes (%) (Auto) 1.4, Eosinophils (%) (Auto) 0.0, Basophils (%) (Auto) 0.2, Neutrophils # (Auto) 7.4, Lymphocytes # (Auto) 0.4 L, Monocytes # (Auto) 0.1, Eosinophils # (Auto) 0.0, Basophils # (Auto) 0.0, Calcium Level 8.8 Microbiology Microbiology 11/11/18 Blood Culture, Received Pending 11/11/18 Blood Culture, Received Pending ANTONIO MUHAMMAD DO Nov 12, 2018 11:58
[2018-11-12] MEDS: ADVAIR HFA 230/21MCG INHALER INH SCH ×2 (12:10→19:49)
[2018-11-12] MEDS: TIOTROPIUM INHALER/CAPSULE (SPIRIVA) INH SCH (12:10)
[2018-11-12 12:17] LABS: ABG BASE EXCESS 11.2 (-2.0-2.0); ABG HCO3 37.2 MEQ/L (22.0-26.0); ABG O2 SATURATION 95.1 % (95.0-99.0); ABG PARTIAL PRESSURE CO2 55.3 mmHg (35.0-45.0); ABG PARTIAL PRESSURE O2 79.4 mmHg (75.0-100.0); ABG STANDARD HCO3 34.9 MEQ/L (22.0-26.0); ABG TOTAL CO2 38.9 MEQ/L (23.0-31.0); ABG pH (ARTERIAL) 7.446 UNITS (7.350-7.450)
[2018-11-12] MEDS: ALBUTEROL SULFATE 2.5 MG/0.5 ML INH NEB SOLN NEB PRN (15:52)
[2018-11-12] MEDS: VARENICLINE 1 MG TABLET PO SCH (20:06)
[2018-11-12] MEDS ORDERED: ATORVASTATIN 20 MG TAB PO SCH (21:00)
[2018-11-12] MEDS ORDERED: HumaLOG INSULIN (NovoLOG) PER UNIT SC SCH (21:00)
[2018-11-13] VITALS: BP 124/60
[2018-11-13] MEDS ORDERED: ANEXSIA, NORCO 7.5MG/325MG TABLET(HYDROCODONE/APAP) PO PRN (01:15)
[2018-11-13 04:00] VITALS: BP 130/64
[2018-11-13 04:31] LABS: BASO % 0.1 % (0.0-1.0); EOS % 0.1 % (0.0-3.0); HEMATOCRIT 34.8 % (36.0-47.0); HEMOGLOBIN 11.3 g/dl (12.0-15.5); LYMPH % 12.3 % (24.0-44.0); MEAN CORPUSCULAR HEMOGLOBIN 30.7 pg (27.0-33.0); MEAN CORPUSCULAR HGB CONC 32.5 g/dl (32.0-36.5); MEAN CORPUSCULAR VOLUME 94.6 fl (80.0-96.0); MONO # 0.8 10^3/uL (0.0-0.8); MONO % 9.2 % (0.0-5.0); NEUTROPHILS # 6.6 10^3/uL (1.8-7.7); NEUTROPHILS % 77.8 % (36.0-66.0); PLATELET COUNT, AUTOMATED 287 10^3/uL (150-450); RED BLOOD COUNT 3.68 10^6/uL (4.00-5.40); WHITE BLOOD COUNT 8.5 10^3/uL (4.0-10.0)
[2018-11-13 04:50] LABS: BLOOD UREA NITROGEN 14 MG/DL (7-18); CALCIUM LEVEL 8.8 MG/DL (8.8-10.2); CARBON DIOXIDE LEVEL 42 MEQ/L (21-32); CHLORIDE LEVEL 90 MEQ/L (98-107); CREATININE FOR GFR 0.52 MG/DL (0.55-1.30); GLOMERULAR FILTRATION RATE > 60.0 (>45); GLUCOSE, FASTING 345 MG/DL (70-100); POTASSIUM SERUM 3.8 MEQ/L (3.5-5.1); SODIUM LEVEL 136 MEQ/L (136-145)
[2018-11-13] MEDS: LEVOTHYROXINE 25MCG TABLET (0.025MG) PO SCH (05:56)
[2018-11-13] MEDS: CEPHALEXIN 500 MG CAP PO SCH (07:51)
[2018-11-13] MEDS: VARENICLINE 1 MG TABLET PO SCH (07:51)
[2018-11-13] MEDS: SITagliptin 50 MG TAB (JANUVIA) PO SCH (07:51)
[2018-11-13] MEDS: GABAPENTIN 400 MG CAP PO SCH (07:51)
[2018-11-13] MEDS: FLUoxetine 20 MG CAP PO SCH (07:51)
[2018-11-13] MEDS: ASPIRIN 81 MG ENTERIC TAB PO SCH (07:51)
[2018-11-13] MEDS: predniSONE 20 MG TAB PO SCH (07:51)
[2018-11-13] MEDS: PANTOPRAZOLE 40MG TAB (PROTONIX) PO SCH (07:51)
[2018-11-13 07:52] VITALS: BP 133/76
[2018-11-13] MEDS: BISOPROLOL FUM 2.5 MG PER 1/2TAB PO SCH (07:52)
[2018-11-13] MEDS: ENOXAPARIN 40 MG/0.4 ML SYRINGE (J1650) SC SCH ×2 (07:52→07:56)
[2018-11-13] MEDS: FUROSEMIDE 40 MG/4 ML VIAL (J1940) IV SCH (07:53)
[2018-11-13] MEDS: HumaLOG INSULIN (NovoLOG) PER UNIT SC SCH (07:53)
[2018-11-13 08:00] VITALS: BP 133/76
[2018-11-13] MEDS ORDERED: ADVA230A INH (08:09)
[2018-11-13] MEDS ORDERED: VARE1TA PO (08:09)
[2018-11-13] MEDS ORDERED: HYDR1CAP25 PO (08:25)
[2018-11-13 08:34] LABS: ABG BASE EXCESS 8.9 (-2.0-2.0); ABG HCO3 34.8 MEQ/L (22.0-26.0); ABG O2 SATURATION 90.3 % (95.0-99.0); ABG PARTIAL PRESSURE CO2 53.7 mmHg (35.0-45.0); ABG PARTIAL PRESSURE O2 62.9 mmHg (75.0-100.0); ABG STANDARD HCO3 32.5 MEQ/L (22.0-26.0); ABG TOTAL CO2 36.5 MEQ/L (23.0-31.0)
--- NOTE | 2018-11-13 08:40 | DS.PDOC ---
Discharge Summary General Date of Admission Nov 12, 2018 at 01:34 Date of Discharge 11/13/2018 Primary Care Physician: Natalie Antony Attending Physician: TEN SULLIVAN DO Discharge Summary PROCEDURES PERFORMED DURING STAY: 1. Echocardiogram ADMITTING DIAGNOSES: 1. Acute on chronic respiratory failure with hypercarbia and hypoxia 2. Possible CHF exacerbation 3. SUYAPA 4. Non-obstructive CAD with history of STEMI 5. DDD/CLBP/SI/OA 6. Fibromylagia 7. GERD 8. HTN 9. DLP 10. DM 11. Obesity 12. Hypothyroidism 13. Depression DISCHARGE DIAGNOSES: 1. Acute on chronic hypercarbic respiratory failure 2. Diabetes mellitus with diabetic neuropathy 3. Peripheral edema with orthopnea possibly secondary to heart failure 4. CAD with hypertensive heart disease 5. Depression/anxiety/mood disorder 6. Tobacco abuse COMPLICATIONS/CHIEF COMPLAINT: Acute And Chronic Respiratory Failure. HISTORY OF PRESENT ILLNESS: Ms. Zavala is a 62-year-old female with COPD, chronic respiratory failure with hypoxia and hypercarbia on 2 L oxygen at home, SUYAPA, Bipolar disorder, anxiety, diabetes, Hypertension, Hypothyroid, CAD, obesity presented to the ED for worsening SOB along with increased cough and chest tightness for 1 day. She does not have much phlegm production She also complained of leg swelling. Patient was last discharged from the hospital on 11/01/18. Then she had an ED visit on 11/04/18. Then she comes in today. This is her 8th hospitalization this year. She was extremely anxious when she first arrived. She could not talk in full sentences and was using her accessory muscles of respiration. ABG in the ED showed 7.25/ pco2 95, po2 160. She initially refused BIPAP but she was give ativan 0.5 mg for her anxiety then she agreed to the BIPAP. ABG after 1 hour showed definite improvement pH 7.35/pCO2 72/pO2 69. She was admitted for acute on chronic respiratory failure with hypoxia and hypercarbia due to advanced COPD and possibly CHF. HOSPITAL COURSE: Patient was admitted to the hospital for further evaluation and management. Provided Duoneb's, Budesonide, and increased Prednisone. One dose of Decadron. Extensively counseled patient on the importance of smoking cessation. Increased Chantix to 1mg PO BID. Ordered tobacco cessation counseling. Pulmonary rehabilitation ordered. Patient has appointment scheduled with sleeping car porter on Thursday which she has been encouraged to attend. Obtained echocardiogram and provided Lasix daily. Chronic medical problems were managed appropriately. Treated diabetes with short-acting and long-acting insulin. Patient improved clinically throughout short hospitalization. DISCHARGE MEDICATIONS: Please see below. ALLERGIES: Please see below. PHYSICAL EXAMINATION ON DISCHARGE: VITAL SIGNS: Please see below. GENERAL: Well nourished, well developed female, alert and conversant, answers questions appropriately, tearful. HEENT: Atraumatic, normocephalic, PERRL, EOMI, oral mucosa appears pink and moist, nasal septum appears midline, nares are patent. CARDIOVASCULAR: Regular rate and rhythm, normal S1 and S2, no murmur, rub, click. RESPIRATORY: Speaks in full sentences, does not appear breathless, clear to auscultation bilaterally, diminished breath sounds throughout, no definite wheeze, rhonchi, or crackles. ABDOMINAL: Round, soft, non-tender, non-distended, bowel sounds appreciated throughout. EXTREMITIES: +1 pitting edema noted in the bilateral lower extremities, pain with palpation of lower extremities, peripheral pulses equal and symmetrical, +2. NEUROLOGICAL: CN II-XII grossly intact. PSYCHOLOGICAL: Mood and affect appropriate although somewhat tearful. LABORATORY DATA: Please see below. IMAGIN. Chest x-ray, portable - There are no acute cardiopulmonary findings. There are findings compatible with COPD, requiring clinical confirmation. PROGNOSIS: Stable. ACTIVITY: As tolerated. DIET: As tolerated. DISCHARGE PLAN: Problem: Managing health at home Goal: Improve health & wellness Instructions: Follow DC Instruction DISPOSITION: Home. DISCHARGE INSTRUCTIONS: 1. Dr. Pacheco - appointment already scheduled for 11/15/[address] Antony in 7-10 days 3. Follow up with pulmonary rehabilitation 4. Refilled Advair 5. Refilled Hydroxyzine 6. Increased Chantix to 1mg PO BID; obtain refill from PCP 7. Take all medications as prescribed 8. Return to the nearest Emergency Department should your symptoms worsen or persist ITEMS TO FOLLOWUP ON ON OUTPATIENT: 1. Consider pulmonary rehabilitation referral 2. Importance of tobacco cessation 3. End-stage COPD DISCHARGE CONDITION: Stable. TIME SPENT ON DISCHARGE: 34 minutes. Vital Signs/I&Os Vital Signs Date Time Temp Pulse Resp B/P (MAP) Pulse Ox O2 Delivery O2 Flow Rate FiO2 11/13/18 07:52 96 133/76 11/13/18 06:27 24 11/13/18 06:00 92 3.0 11/13/18 04:00 97.2 11/12/18 12:00 30 11/12/18 05:45 BIPAP/CPAP I&O- Last 24 Hours up to 6 AM 11/13/18 06:00 Intake Total 2980 ml Output Total 5750 ml Balance -2770 ml Laboratory Data Labs 24H Laboratory Tests 2 11/12/18 08:39: Immature Granulocyte % (Auto) 1.2, White Blood Count 8.0, Red Blood Count 4.13, Hemoglobin 12.9, Hematocrit 40.1, Mean Corpuscular Volume 97.1H, Mean Corpuscular Hemoglobin 31.2, Mean Corpuscular Hemoglobin Concent 32.2, Red Cell Distribution Width 14.6H, Platelet Count 312, Neutrophils (%) (Auto) 92.8H, Lymphocytes (%) (Auto) 4.4L, Monocytes (%) (Auto) 1.4, Eosinophils (%) (Auto) 0.0, Basophils (%) (Auto) 0.2, Neutrophils # (Auto) 7.4, Lymphocytes # (Auto) 0.4L, Monocytes # (Auto) 0.1, Eosinophils # (Auto) 0.0, Basophils # (Auto) 0.0, Nucleated Red Blood Cells % (auto) 0.0, Anion Gap 7L, Glomerular Filtration Rate > 60.0, Blood Urea Nitrogen 16#, Creatinine 0.67, Sodium Level 135L, Potassium Level 4.2, Chloride Level 91L, Carbon Dioxide Level 37H, Calcium Level 8.8 11/12/18 08:50: Bedside Glucose (Misc Panel) 383H 11/12/18 11:49: Bedside Glucose (Misc Panel) 429H 11/12/18 12:06: Blood Gas Bicarbonate Standard 34.9H, Arterial Blood pH 7.446, Arterial Blood Partial Pressure CO2 55.3H, Arterial Blood Partial Pressure O2 79.4, Arterial Blood Total CO2 38.9H, Arterial Blood HCO3 37.2H, Arterial Blood Base Excess 11.2H, Arterial Blood Oxygen Saturation 95.1 11/12/18 17:09: Bedside Glucose (Misc Panel) 455H 11/12/18 20:04: Bedside Glucose (Misc Panel) 336H 11/13/18 04:13: Immature Granulocyte % (Auto) 0.5, White Blood Count 8.5, Red Blood Count 3.68L, Hemoglobin 11.3L, Hematocrit 34.8L, Mean Corpuscular Volume 94.6, Mean Corpuscular Hemoglobin 30.7, Mean Corpuscular Hemoglobin Concent 32.5, Red Cell Distribution Width 14.3, Platelet Count 287, Neutrophils (%) (Auto) 77.8H, Lymphocytes (%) (Auto) 12.3L, Monocytes (%) (Auto) 9.2H, Eosinophils (%) (Auto) 0.1, Basophils (%) (Auto) 0.1, Neutrophils # (Auto) 6.6, Lymphocytes # (Auto) 1.0L, Monocytes # (Auto) 0.8, Eosinophils # (Auto) 0.0, Basophils # (Auto) 0.0, Nucleated Red Blood Cells % (auto) 0.0, Anion Gap 4L, Glomerular Filtration Rate > 60.0, Blood Urea Nitrogen 14, Creatinine 0.52L, Sodium Level 136, Potassium Level 3.8, Chloride Level 90L, Carbon Dioxide Level 42H, Calcium Level 8.8 CBC/BMP Laboratory Tests 11/12/18 08:39 Red Blood Count 4.13, Mean Corpuscular Volume 97.1 H, Mean Corpuscular Hemoglobin 31.2, Mean Corpuscular Hemoglobin Concent 32.2, Red Cell Distribution Width 14.6 H, Neutrophils (%) (Auto) 92.8 H, Lymphocytes (%) (Auto) 4.4 L, Monocytes (%) (Auto) 1.4, Eosinophils (%) (Auto) 0.0, Basophils (%) (Auto) 0.2, Neutrophils # (Auto) 7.4, Lymphocytes # (Auto) 0.4 L, Monocytes # (Auto) 0.1, Eosinophils # (Auto) 0.0, Basophils # (Auto) 0.0, Calcium Level 8.8 11/13/18 04:13 Red Blood Count 3.68 L, Mean Corpuscular Volume 94.6, Mean Corpuscular Hemoglobin 30.7, Mean Corpuscular Hemoglobin Concent 32.5, Red Cell Distribution Width 14.3, Neutrophils (%) (Auto) 77.8 H, Lymphocytes (%) (Auto) 12.3 L, Monocytes (%) (Auto) 9.2 H, Eosinophils (%) (Auto) 0.1, Basophils (%) (Auto) 0.1, Neutrophils # (Auto) 6.6, Lymphocytes # (Auto) 1.0 L, Monocytes # (Auto) 0.8, Eosinophils # (Auto) 0.0, Basophils # (Auto) 0.0, Calcium Level 8.8 FSBS Laboratory Tests Test 11/12/18 08:50 11/12/18 11:49 11/12/18 17:09 11/12/18 20:04 Range/Units Bedside Glucose (Misc Panel) 383 429 455 336 80-115 MG/DL Microbiology Microbiology 11/11/18 Blood Culture - Preliminary, Resulted No growth after 24 hours . All specim... 11/11/18 Blood Culture - Preliminary, Resulted No growth after 24 hours . All specim... Discharge Medications Scheduled Aripiprazole (Abilify) 5 Mg Tablet, 2.5 MG PO QHS, (Reported) Aspirin (Aspirin EC) 81 Mg Tabec, 81 MG PO DAILY, (Reported) Atorvastatin Calcium (Lipitor) 80 Mg Tab, 80 MG PO QHS, (Reported) Bisoprolol Fumarate (Bisoprolol Fumarate) 5 Mg Tab, 2.5 MG PO DAILY, (Reported) Cephalexin (Cephalexin) 500 Mg Capsule, 500 MG PO QID, (Reported) Ergocalciferol (Vitamin D2) (Drisdol) 50,000 Unit Cap, 50,000 UNIT PO 1XWK, (Reported) [place] Fluoxetine Hcl (Fluoxetine HCl) 20 Mg Capsule, 20 MG PO DAILY, (Reported) Fluticasone Propion/Salmeterol (Advair Hfa 230-21 Mcg Inhaler) 1 Aer Aer, 2 PUFF INH BID Fluticasone Propionate (Flonase Allergy Relief) 50 Mcg/Act Spr, 1 SPRAY NA DAILY, (Reported) Gabapentin (Gabapentin) 800 Mg Tab, 800 MG PO TID, (Reported) Hydroxyzine Pamoate (Hydroxyzine Pamoate) 25 Mg Capsule, 25 MG PO TID Levothyroxine Sodium (Levoxyl) 25 Mcg Tab, 25 MCG PO DAILY, (Reported) Metformin HCl (Metformin HCl) 1,000 Mg Tab, 1,000 MG PO BID, (Reported) Nystatin (Nystatin Powder) 15 Gm Powder, 1 DOSE TOP QHS, (Reported) USES UNDER BREASTS Pantoprazole Sodium (Pantoprazole Sodium) 40 Mg Tab, 40 MG PO DAILY, (Reported) Prednisone (Prednisone) 5 Mg Tablet, 5 MG PO DAILY, (Reported) Prochlorperazine Maleate (Prochlorperazine Maleate) 10 Mg Tablet, 10 MG PO TID, (Reported) Sitagliptin Phosphate (Januvia) 100 Mg Tablet, 100 MG PO DAILY, (Reported) Tiotropium [place] Monohydrate (Spiriva) 18 Mcg Cap.w.dev, 1 INHALATION INH DAILY, (Reported) Varenicline (Chantix) 1 Mg Tablet, 1 MG PO BID Scheduled PRN Albuterol Sulfate (Ventolin Hfa) 108 Mcg/Act Aer, 2 PUFFS INH Q4H PRN for SHORTNESS OF BREATH, (Reported) Hydrocodone/Acetaminophen ([place] 7.5-325 Tablet) 1 Each Tablet, 1 TAB PO BID PRN for PAIN, (Reported) Ipratropium/Albuterol Sulfate (Iprat-Albut 0.5-3(2.5) mg/3 ml) 1 Sommer Sommer, 3 ML INH QID PRN for SHORTNESS OF BREATH, (Reported) Menthol (Bengay) 5% Gel..gram., 1 DOSE TOP QID PRN for PAIN, (Reported) APPLIES TO NECK AND BACK Allergies Coded Allergies: No Known Allergies (Unverified , 08/22/18) ANTONIO MUHAMMAD DO Nov 13, 2018 08:40
[2018-11-13] MEDS: ALBUTEROL SULFATE 2.5 MG/0.5 ML INH NEB SOLN NEB PRN (08:55)
[2018-11-13] MEDS: BUDESONIDE 0.5 MG/2 ML INHALATION SUSPENSION INH SCH (08:55)
[2018-11-13] MEDS ORDERED: LEVEMIR (INSULIN DETEMIR) 1 UNITS/0.01ML SC SCH (09:00)
[2018-11-13] MEDS: TIOTROPIUM INHALER/CAPSULE (SPIRIVA) INH SCH (09:44)
[2018-11-13] MEDS: ADVAIR HFA 230/21MCG INHALER INH SCH (09:44)
--- NOTE | 2018-11-13 10:55 | ECHO ---
DATE OF PROCEDURE: 11/12/2018 REFERRING PHYSICIAN: Dr. Vaishali Deleon INDICATION: Dyspnea. HEIGHT: 165 cm. WEIGHT: 93 kg. 2D MEASUREMENTS: Left ventricle diastole 4.4 cm Ventricular septum 1.04 cm Posterior wall 0.8 cm Left atrium 3.1 cm Inferior vena cava 2.1 cm (approximately 50% respiratory variation). Central venous pressure estimated to be approximately 10 mmHg at the time of the study. DOPPLER MEASUREMENTS: Aortic valve velocity 173 cm/s LVOT velocity 117 cm/s LVOT VTI 21.7 cm Mitral E velocity 88.8 cm/s Mitral A velocity 113 cm/s Mitral deceleration time 197 ms Pulmonary artery systolic pressure estimated to be 34 mmHg MITRAL ANNULAR TISSUE DOPPLER: E prime septal 5.8 cm/s E prime lateral 7.0 cm/s DESCRIPTION: Rhythm was sinus. This was a moderately technically difficult echocardiogram. This was a 2D, M mode, color flow Doppler and pulse wave Doppler examination and included mitral annular tissue Doppler. CONCLUSIONS: 1. Hyperdynamic LV systolic function. LVEF 75% by visual estimate. Normal LV size and wall thickness. No regional wall motion abnormalities of the left ventricle. Grade 1 LV diastolic dysfunction (impaired relaxation filling pattern). 2. Suggestive of mild elevation of pulmonary artery systolic pressure. Normal right ventricle size with hyperdynamic right ventricle systolic function. Central venous pressure estimated to be 10 mmHg. 3. Mild aortic valve sclerosis of a three-cuspid aortic valve. No aortic regurgitation. 4. Mild mitral annular calcification. No mitral regurgitation. 5. No pericardial effusion. 6. Otherwise, normal appearing echocardiogram Doppler findings. However, moderately technically difficult echocardiogram.
== END 2018-11-13 10:46 | disposition home or self-care (01) | DRG 189 ==
LOC: M ED 22:40 → M ED INP 11-12 01:34 → M ICU 11-12 02:57
PROVIDERS: ADMIT Internal Medicine Nephrology; ATTEND Family Medicine
DX: J96.21 Acute and chronic respiratory failure with hypoxia (principal); J44.1 Chronic obstructive pulmonary disease with (acute) exacerbation; J96.22 Acute and chronic respiratory failure with hypercapnia; I50.9 Heart failure, unspecified; I11.0 Hypertensive heart disease with heart failure; E11.65 Type 2 diabetes mellitus with hyperglycemia; E11.40 Type 2 diabetes mellitus with diabetic neuropathy, unspecified; I25.10 Atherosclerotic heart disease of native coronary artery without angina pectoris; F17.200 Nicotine dependence, unspecified, uncomplicated; F41.9 Anxiety disorder, unspecified; F32.9 Major depressive disorder, single episode, unspecified; G47.33 Obstructive sleep apnea (adult) (pediatric); I25.2 Old myocardial infarction; M79.7 Fibromyalgia; K21.9 Gastro-esophageal reflux disease without esophagitis; E66.9 Obesity, unspecified; E03.9 Hypothyroidism, unspecified; Z79.82 Long term (current) use of aspirin; Z79.899 Other long term (current) drug therapy; M51.36 Other intervertebral disc degeneration, lumbar region; M19.90 Unspecified osteoarthritis, unspecified site; E78.5 Hyperlipidemia, unspecified; R91.1 Solitary pulmonary nodule; E27.9 Disorder of adrenal gland, unspecified

== ENCOUNTER 2018-11-23 19:48 | Inpatient (IN) | payer MEDICARE, MEDICAID ==
[~2018-11-23] VITALS: Ht 165.1 cm; Wt 90.0 kg
[~2018-11-23 19:48] MED LIST changes: +FLUO20CA19 PO; +JANU100T PO; +VARE1TA PO
[2018-11-23] MEDS ORDERED: ZOLO100T PO ×2 (20:02→23:51)
[2018-11-23] MEDS ORDERED: IPRATROPIUM 0.5MG/ALBUTEROL 2.5MG INH SOL UD 3ML (DUONEB)(J7620) NEB ONE (20:15)
[2018-11-23] MEDS ORDERED: methylPREDNISolone INJ 125 MG/2 ML VIAL (J2930) IV ONE (20:15)
[2018-11-23 20:34] LABS: BASO # 0.1 10^3/uL (0.0-0.2); BASO % 0.4 % (0.0-1.0); EOS % 0.3 % (0.0-3.0); HEMATOCRIT 40.1 % (36.0-47.0); HEMOGLOBIN 12.5 g/dl (12.0-15.5); LYMPH # 1.3 10^3/uL (1.5-4.5); LYMPH % 9.3 % (24.0-44.0); MEAN CORPUSCULAR HEMOGLOBIN 29.6 pg (27.0-33.0); MEAN CORPUSCULAR HGB CONC 31.2 g/dl (32.0-36.5); MONO # 0.9 10^3/uL (0.0-0.8); MONO % 6.7 % (0.0-5.0); NEUTROPHILS # 11.5 10^3/uL (1.8-7.7); NEUTROPHILS % 81.5 % (36.0-66.0); PLATELET COUNT, AUTOMATED 407 10^3/uL (150-450); RED BLOOD COUNT 4.22 10^6/uL (4.00-5.40); WHITE BLOOD COUNT 14.1 10^3/uL (4.0-10.0)
[2018-11-23 20:52] LABS: BLOOD UREA NITROGEN 16 MG/DL (7-18); CALCIUM LEVEL 8.5 MG/DL (8.8-10.2); CARBON DIOXIDE LEVEL 39 MEQ/L (21-32); CHLORIDE LEVEL 94 MEQ/L (98-107); CK-MB VALUE MASS 1.7 NG/ML (<3.6); CPK CREATINE PHOSPHOKINASE 40 U/L (26-192); GLOMERULAR FILTRATION RATE > 60.0 (>45); GLUCOSE, FASTING 292 MG/DL (70-100); MB/CK RELATIVE INDEX 4.25 (< OR =4); POTASSIUM SERUM 4.2 MEQ/L (3.5-5.1); SODIUM LEVEL 138 MEQ/L (136-145); TROPONIN I < 0.02 NG/ML (< 0.10)
--- NOTE | 2018-11-23 22:31 | ECGEPIP ---
[facility] - ED Test Date: 2018-11-23 Pat Name: MIGUEL NAQVI Department: Room: - Gender: Female Processing Technician: ALBERT : [id number] Requested By: MAYELA Culp Order Number: [id number] Reading MD: Kyle Boyce Measurements Intervals [place] Rate: 110 P: 67 SD: 154 QRS: 39 QRSD: 106 T: 87 QT: 326 QTc: 442 Interpretive Statements SINUS TACHYCARDIA POSSIBLE LEFT ATRIAL ENLARGEMENT POSSIBLE ANTERIOR MYOCARDIAL INFARCTION, OF INDETERMINATE AGE Similar to tracing done 11-11-18 Electronically Signed on 11-23-2018 22:30:48 EDT by Kyle Boyce
[2018-11-23] MEDS ORDERED: VARE1TA PO (23:51)
[2018-11-23] MEDS ORDERED: HYDR1CAP25 PO (23:51)
[2018-11-23] MEDS ORDERED: ADVA230A INH (23:51)
[2018-11-24] MEDS ORDERED: MAALOX 30 ML SUSP *UDC PO PRN (00:15)
[2018-11-24] MEDS ORDERED: ACETAMINOPHEN TAB 650MG DOSE (2X325MG) PO PRN (00:15)
[2018-11-24] MEDS ORDERED: MOM 30ML SUSPENSION UDC PO PRN (00:15)
[2018-11-24] MEDS ORDERED: ALBUTEROL SULFATE 2.5 MG/0.5 ML INH NEB SOLN NEB PRN (00:15)
[2018-11-24] MEDS: DOCUSATE SODIUM 100 MG CAP PO SCH ×3 (00:29→22:39)
[2018-11-24] MEDS: IPRATROPIUM 0.5MG/ALBUTEROL 2.5MG INH SOL UD 3ML (DUONEB)(J7620) NEB SCH ×2 (02:25→08:21)
--- NOTE | 2018-11-24 02:58 | HPEPDOC ---
General Date of Admission 11/24/18 Date of Service: Nov 24, 2018 Primary Care Physician: Natalie Antony Attending Physician: TEN SULLIVAN DO Chief Complaint The patient is a 62-year-old female admitted with a reason for visit of SOB. Source: Patient Exam Limitations: No limitations Timing/Duration: 24 hours Severity: Severe Associated Symptoms: Chest Pain, Shortness of breath, Weakness History of Present Illness 62 yo diabetic female recently discharged on 11/13/18 with Acute on chronic hypercarbic hypoxic respiratory failure, presented to ED with worsening SOB, started yesterday afternoon, and no relief with increasing home nebs and increasing her home oxygen from 2 liter to 4 liters. She states no fever, no N, noV, no cough. Was dizzy and intermittent chest heaviness yesterday that comes and goes , worse with SOB but no diaphoresis. States EMS called, given additional nebs and oxygen increased to 6 liters. On presentation to ED, she was found to be hypercapnic, hypoxic but able to speak full sentences. She was treated wtih IV solumedrol and home oxygen levels at 2 liter resumed. Her ABG initially showed hypercapnea but improved with decreasing her oxygen NC. Home Medications Scheduled Aripiprazole (Abilify) 5 Mg Tablet, 2.5 MG PO QHS, (Reported) Aspirin (Aspirin EC) 81 Mg Tabec, 81 MG PO DAILY, (Reported) Atorvastatin Calcium (Lipitor) 80 Mg Tab, 80 MG PO QHS, (Reported) Bisoprolol Fumarate (Bisoprolol Fumarate) 5 Mg Tab, 2.5 MG PO DAILY, (Reported) Ergocalciferol (Vitamin D2) (Drisdol) 50,000 Unit Cap, 50,000 UNIT PO 1XWK, (Reported) FRIDAYS Fluoxetine Hcl (Fluoxetine HCl) 20 Mg Capsule, 20 MG PO DAILY, (Reported) Fluticasone Propion/Salmeterol (Advair Hfa 230-21 Mcg Inhaler) 12 Gm Hfa.aer.ad, 2 PUFF INH BID, (Reported) Fluticasone Propionate (Flonase Allergy Relief) 50 Mcg/Act Spr, 1 SPRAY NA DAILY, (Reported) Gabapentin (Gabapentin) 800 Mg Tab, 800 MG PO TID, (Reported) Levothyroxine Sodium (Levoxyl) 25 Mcg Tab, 25 MCG PO DAILY, (Reported) Metformin HCl (Metformin HCl) 1,000 Mg Tab, 1,000 MG PO BID, (Reported) Nystatin (Nystatin Powder) 15 Gm Powder, 1 DOSE TOP QHS, (Reported) USES UNDER BREASTS Pantoprazole Sodium (Pantoprazole Sodium) 40 Mg Tab, 40 MG PO DAILY, (Reported) Prednisone (Prednisone) 5 Mg Tablet, 5 MG PO DAILY, (Reported) Prochlorperazine Maleate (Prochlorperazine Maleate) 10 Mg Tablet, 10 MG PO DAILY, (Reported) Sertraline Hcl (Zoloft) 100 Mg Tablet, 100 MG PO DAILY, (Reported) Sitagliptin Phosphate (Januvia) 100 Mg Tablet, 100 MG PO DAILY, (Reported) Tiotropium [place] Monohydrate (Spiriva) 18 Mcg Cap.w.dev, 1 INHALATION INH DAILY, (Reported) Varenicline (Chantix) 1 Mg Tablet, 1 MG PO DAILY, (Reported) Scheduled PRN Albuterol Sulfate (Ventolin Hfa) 108 Mcg/Act Aer, 2 PUFFS INH Q4H PRN for SHORTNESS OF BREATH, (Reported) Hydrocodone/Acetaminophen ([place] 7.5-325 Tablet) 1 Each Tablet, 1 TAB PO BID PRN for PAIN, (Reported) Hydroxyzine Pamoate (Hydroxyzine Pamoate) 25 Mg Capsule, 25 MG PO TID PRN for ANXIETY, (Reported) Ipratropium/Albuterol Sulfate (Iprat-Albut 0.5-3(2.5) mg/3 ml) 1 Sommer Sommer, 3 ML INH QID PRN for SHORTNESS OF BREATH, (Reported) Menthol (Bengay) 5% Gel..gram., 1 DOSE TOP QID PRN for PAIN, (Reported) APPLIES TO NECK AND BACK Allergies Coded Allergies: No Known Allergies (Unverified , 11/23/18) Past Medical History Medical History Chronic respiratory failure with hypoxia and hypercarbia Chronic obstructive pulmonary disease (COPD) SUYAPA does not use CPAP Major depressive disorder Bipolar, anxiety disorder, adjustment disorder History of Cannabis use disorder. Nonobstructive Coronary artery disease with history of NSTEMI 2012 Degenerative disc disease with chronic musculoskeletal pain and muscle spasm. Chronic low back pain on narcotics Sacroiliac joint pain and myofascial pain. Fibromyalgia. Osteoarthritis Gastroesophageal reflux disease (GERD). Hypertension. Hyperlipidemia Diabetes Obesity Hypothyroidism. Adrenal nodule on the right, seems to be adrenal adenoma. Lung nodule Surgical History Cholecystectomy. Cardiac catheterization without stent. History of breast biopsy. Dilation and curettage. Tubal ligation. Tonsillectomy. Exploratory laparotomy. 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 moist/pink, Pharynx Normal Neck Exam: Positive: Supple, +2 carotid pulse wo bruit Chest Exam: Positive: Clear to auscultation, Normal air movement, Wheezing; Negative: Rales, Rhonchi Heart Exam: Positive: Rate Normal, Regular Rhythm (no murmur) Abdomen Exam: Positive: Normal bowel sounds, Soft (NT ND) Extremity Exam: Positive: Edema (chronic 1+ bilaterally) Skin Exam: Positive: Nl turgor and temperature Neuro Exam: Positive: Normal Speech, Strength at 5/5 X4 ext, Normal Tone, Sensation Intact Psych Exam: Positive: Mental status NL, Mood NL, Oriented x 3 Other physical findings ECHO Performed 11/12/18: CONCLUSIONS: 1. Hyperdynamic LV systolic function. LVEF 75% by visual estimate. Normal LV size and wall thickness. No regional wall motion abnormalities of the left ventricle. Grade 1 LV diastolic dysfunction (impaired relaxation filling pattern). 2. Suggestive of mild elevation of pulmonary artery systolic pressure. Normal right ventricle size with hyperdynamic right ventricle systolic function. Central venous pressure estimated to be 10 mmHg. 3. Mild aortic valve sclerosis of a three-cuspid aortic valve. No aortic regurgitation. 4. Mild mitral annular calcification. No mitral regurgitation. 5. No pericardial effusion. 6. Otherwise, normal appearing echocardiogram Doppler findings. However, moderately technically difficult echocardiogram. CXR images reviewed and discussed with ED: no plueral effusions or infiltrates Vital Signs Vital Signs Date Time Temp Pulse Resp B/P (MAP) Pulse Ox O2 Delivery O2 Flow Rate FiO2 11/23/18 23:36 98 22 125/66 (85) 89 Nasal Cannula 4.0 11/23/18 19:51 97.0 Laboratory Data Labs 24H Laboratory Tests 2 11/23/18 20:19: Immature Granulocyte % (Auto) 1.8, White Blood Count 14.1H, Red Blood Count 4.22, Hemoglobin 12.5, Hematocrit 40.1, Mean Corpuscular Volume 95.0, Mean Corpuscular Hemoglobin 29.6, Mean Corpuscular Hemoglobin Concent 31.2L, Red Cell Distribution Width 14.4, Platelet Count 407, Neutrophils (%) (Auto) 81.5H, Lymphocytes (%) (Auto) 9.3L, Monocytes (%) (Auto) 6.7H, Eosinophils (%) (Auto) 0.3, Basophils (%) (Auto) 0.4, Neutrophils # (Auto) 11.5H, Lymphocytes # (Auto) 1.3L, Monocytes # (Auto) 0.9H, Eosinophils # (Auto) 0.0, Basophils # (Auto) 0.1, Nucleated Red Blood Cells % (auto) 0.0, Anion Gap 5L, Glomerular Filtration Rate > 60.0, Blood Urea Nitrogen 16, Creatinine 0.50L, Sodium Level 138, Potassium Level 4.2, Chloride Level 94L, Carbon Dioxide Level 39H, Calcium Level 8.5L, Total Creatine Kinase 40, Creatine Kinase MB 1.7, Creatine Kinase MB Relative Index 4.25H, Troponin I < 0.02 11/23/18 20:24: POC pH (Misc Panel) 7.331L, POC Base Excess (Misc Panel) 16.0H, POC Saturated Percent O2 (Misc) 90L, POC pO2 (Misc Panel) 67.0L, POC pCO2 (Misc Panel) 79.4*H, POC HCO3 (Misc Panel) 42.0H, POC Total CO2 (Misc Panel) 44.0H 11/23/18 22:49: POC pH (Misc Panel) 7.323L, POC Base Excess (Misc Panel) 14.0H, POC Saturated Percent O2 (Misc) 88L, POC pO2 (Misc Panel) 63.0L, POC pCO2 (Misc Panel) 77.5*H, POC HCO3 (Misc Panel) 40.2H, POC Total CO2 (Misc Panel) 43.0H CBC/BMP Laboratory Tests 11/23/18 20:19 Red Blood Count 4.22, Mean Corpuscular Volume 95.0, Mean Corpuscular Hemoglobin 29.6, Mean Corpuscular Hemoglobin Concent 31.2 L, Red Cell Distribution Width 14.4, Neutrophils (%) (Auto) 81.5 H, Lymphocytes (%) (Auto) 9.3 L, Monocytes (%) (Auto) 6.7 H, Eosinophils (%) (Auto) 0.3, Basophils (%) (Auto) 0.4, Neutrophils # (Auto) 11.5 H, Lymphocytes # (Auto) 1.3 L, Monocytes # (Auto) 0.9 H, Eosinophils # (Auto) 0.0, Basophils # (Auto) 0.1, Calcium Level 8.5 L, Total Creatine Kinase 40 Assessment/Plan Acute on chronic hypercapneic hypoxic respiratory failure ABG improving. continue 2 liter NC. no need for bipap at this time COPD exacerbation On chronic prednisone 5mg at home. On chronic oxygen 2 liter at home Nebs, IV Steroids, no antibiotics started at this time Chest pain - serial troponin Diabetes without chronic insulin use and without hyperglycemia - hold metformen, cover with SSI Hypothyroid - continue synthroid CODE STATUS: FULL DVT PROPHYLAXIS: enoxaprin Plan / VTE VTE Prophylaxis Ordered?: Yes TEN SULLIVAN DO Nov 24, 2018 00:13
[2018-11-24] MEDS ORDERED: hydrOXYzine 25 MG TAB PO PRN (03:00)
[2018-11-24] MEDS ORDERED: ANEXSIA, NORCO 7.5MG/325MG TABLET(HYDROCODONE/APAP) PO PRN (03:00)
[2018-11-24 05:46] LABS: ABG BASE EXCESS 6.2 (-2.0-2.0); ABG HCO3 32.8 MEQ/L (22.0-26.0); ABG PARTIAL PRESSURE CO2 56.2 mmHg (35.0-45.0); ABG PARTIAL PRESSURE O2 64.6 mmHg (75.0-100.0); ABG STANDARD HCO3 29.9 MEQ/L (22.0-26.0); ABG TOTAL CO2 34.5 MEQ/L (23.0-31.0); ABG pH (ARTERIAL) 7.384 UNITS (7.350-7.450)
[2018-11-24] MEDS: ATORVASTATIN 20 MG TAB PO SCH ×2 (05:50→22:38)
[2018-11-24] MEDS: LEVOTHYROXINE 25MCG TABLET (0.025MG) PO SCH (05:50)
[2018-11-24] MEDS ORDERED: methylPREDNISolone INJ 40 MG/1 ML VIAL (J2920) IV SCH (06:00)
[2018-11-24 07:15] LABS: TROPONIN I < 0.02 NG/ML (< 0.10)
--- NOTE | 2018-11-24 07:51 | REP ---
Clinical: Cough and dyspnea . Comparison: 11/11/2018 . Findings: The mediastinum and cardiac silhouette are stable and within normal limits for portable technique. The lung cherry are clear without acute consolidation, effusion, or pneumothorax. Skeletal structures are intact. Impression: No acute cardiopulmonary process appreciated. Electronically Signed by Michael Vasques MD 11/24/2018 07:42 A
[2018-11-24] MEDS: FLUoxetine 20 MG CAP PO SCH (08:29)
[2018-11-24] MEDS: ASPIRIN 81 MG ENTERIC TAB PO SCH (08:29)
[2018-11-24] MEDS: PANTOPRAZOLE 40MG TAB (PROTONIX) PO SCH (08:29)
[2018-11-24] MEDS: SERTRALINE 100 MG TAB PO SCH (08:29)
[2018-11-24] MEDS: GABAPENTIN 400 MG CAP PO SCH ×3 (08:30→22:38)
[2018-11-24] MEDS: FLUTICASONE PROP 0.05% NASAL SPRAY 16 GM (FLONASE) SCH (08:31)
[2018-11-24] MEDS: VARENICLINE 1 MG TABLET PO SCH (08:31)
[2018-11-24] MEDS: BISOPROLOL FUMARATE 5 MG TAB PO SCH (08:31)
[2018-11-24] MEDS: PROCHLORPERAZINE 5 MG TAB (S0183) PO SCH (08:32)
[2018-11-24] MEDS: ENOXAPARIN 40 MG/0.4 ML SYRINGE (J1650) SC SCH (08:37)
[2018-11-24] MEDS ORDERED: LEVEMIR (INSULIN DETEMIR) 1 UNITS/0.01ML SC SCH (10:15)
[2018-11-24] MEDS ORDERED: DEXTROSE 50% 50 ML SYRINGE IV PRN (10:15)
[2018-11-24] MEDS ORDERED: GLUCOSE 4 GM CHEW TABLET PO PRN (10:15)
[2018-11-24] MEDS ORDERED: GLUCAGON FOR INJ 1 MG VIAL (J1610) SC PRN (10:15)
[2018-11-24 10:25] LABS: BLOOD UREA NITROGEN 16 MG/DL (7-18); CALCIUM LEVEL 8.5 MG/DL (8.8-10.2); CARBON DIOXIDE LEVEL 39 MEQ/L (21-32); CHLORIDE LEVEL 96 MEQ/L (98-107); CREATININE FOR GFR 0.47 MG/DL (0.55-1.30); GLOMERULAR FILTRATION RATE > 60.0 (>45); GLUCOSE, FASTING 320 MG/DL (70-100); POTASSIUM SERUM 4.5 MEQ/L (3.5-5.1); SODIUM LEVEL 138 MEQ/L (136-145)
[2018-11-24] MEDS: SITagliptin 50 MG TAB (JANUVIA) PO SCH (10:39)
[2018-11-24] MEDS: ADVAIR HFA 230/21MCG INHALER INH SCH ×2 (12:07→19:43)
[2018-11-24] MEDS: TIOTROPIUM INHALER/CAPSULE (SPIRIVA) INH SCH (12:07)
[2018-11-24] MEDS: HumaLOG INSULIN (NovoLOG) PER UNIT SC SCH ×2 (12:13→17:56)
[2018-11-24] MEDS: predniSONE 5 MG TAB PO SCH (12:13)
[2018-11-24 14:00] VITALS: BP 140/90
[2018-11-24] MEDS: ALBUTEROL SULFATE 2.5 MG/0.5 ML INH NEB SOLN NEB SCH ×3 (14:00→19:43)
[2018-11-24] MEDS ORDERED: HumaLOG INSULIN (NovoLOG) PER UNIT SC SCH (21:00)
[2018-11-24 22:00] VITALS: BP 119/70
[2018-11-24] MEDS ORDERED: PILL CUTTER 1 EACH XX PRN (22:45)
[2018-11-25] MEDS: ALBUTEROL SULFATE 2.5 MG/0.5 ML INH NEB SOLN NEB SCH ×2 (01:33→08:00)
[2018-11-25 06:00] VITALS: BP 140/69
[2018-11-25] MEDS: LEVOTHYROXINE 25MCG TABLET (0.025MG) PO SCH (06:36)
[2018-11-25 07:11] LABS: BASO % 0.3 % (0.0-1.0); EOS % 0.3 % (0.0-3.0); HEMATOCRIT 36.9 % (36.0-47.0); HEMOGLOBIN 11.5 g/dl (12.0-15.5); LYMPH # 2.1 10^3/uL (1.5-4.5); MEAN CORPUSCULAR HEMOGLOBIN 29.7 pg (27.0-33.0); MEAN CORPUSCULAR HGB CONC 31.2 g/dl (32.0-36.5); MEAN CORPUSCULAR VOLUME 95.3 fl (80.0-96.0); MONO % 7.2 % (0.0-5.0); NEUTROPHILS # 10.5 10^3/uL (1.8-7.7); NEUTROPHILS % 76.4 % (36.0-66.0); PLATELET COUNT, AUTOMATED 379 10^3/uL (150-450); RED BLOOD COUNT 3.87 10^6/uL (4.00-5.40); WHITE BLOOD COUNT 13.8 10^3/uL (4.0-10.0)
[2018-11-25 07:26] LABS: BLOOD UREA NITROGEN 12 MG/DL (7-18); CALCIUM LEVEL 8.4 MG/DL (8.8-10.2); CARBON DIOXIDE LEVEL 40 MEQ/L (21-32); CHLORIDE LEVEL 94 MEQ/L (98-107); CREATININE FOR GFR 0.64 MG/DL (0.55-1.30); GLOMERULAR FILTRATION RATE > 60.0 (>45); GLUCOSE, FASTING 222 MG/DL (70-100); POTASSIUM SERUM 3.9 MEQ/L (3.5-5.1); SODIUM LEVEL 137 MEQ/L (136-145)
[2018-11-25] MEDS ORDERED: FUROSEMIDE 40 MG/4 ML VIAL (J1940) IV ONE (07:30)
[2018-11-25] MEDS: HumaLOG INSULIN (NovoLOG) PER UNIT SC SCH (07:30)
[2018-11-25] MEDS ORDERED: LASI40TA9 PO (07:38)
[2018-11-25] MEDS: TIOTROPIUM INHALER/CAPSULE (SPIRIVA) INH SCH (08:17)
[2018-11-25] MEDS: ADVAIR HFA 230/21MCG INHALER INH SCH (08:17)
[2018-11-25] MEDS ORDERED: LEVEMIR (INSULIN DETEMIR) 1 UNITS/0.01ML SC SCH (09:00)
[2018-11-25] MEDS: ENOXAPARIN 40 MG/0.4 ML SYRINGE (J1650) SC SCH (09:00)
[2018-11-25] MEDS: VARENICLINE 1 MG TABLET PO SCH (09:00)
[2018-11-25] MEDS: FLUTICASONE PROP 0.05% NASAL SPRAY 16 GM (FLONASE) SCH (09:00)
[2018-11-25] MEDS: predniSONE 5 MG TAB PO SCH (09:12)
[2018-11-25] MEDS: ASPIRIN 81 MG ENTERIC TAB PO SCH (09:12)
[2018-11-25] MEDS: DOCUSATE SODIUM 100 MG CAP PO SCH (09:12)
[2018-11-25] MEDS: PROCHLORPERAZINE 5 MG TAB (S0183) PO SCH (09:12)
[2018-11-25] MEDS: SERTRALINE 100 MG TAB PO SCH (09:12)
[2018-11-25] MEDS: SITagliptin 50 MG TAB (JANUVIA) PO SCH (09:12)
[2018-11-25] MEDS: PANTOPRAZOLE 40MG TAB (PROTONIX) PO SCH (09:12)
[2018-11-25] MEDS: GABAPENTIN 400 MG CAP PO SCH (09:12)
[2018-11-25] MEDS: FLUoxetine 20 MG CAP PO SCH (09:12)
[2018-11-25 09:14] VITALS: BP 132/74
[2018-11-25] MEDS: BISOPROLOL FUMARATE 5 MG TAB PO SCH (09:14)
--- NOTE | 2018-11-25 17:21 | DS.PDOC ---
Discharge Summary General Date of Admission Nov 24, 2018 at 00:14 Date of Discharge 11/25/18 Discharge Summary PROCEDURES PERFORMED DURING STAY: [None]. DISCHARGE DIAGNOSES: Acute on Chronic respiratory failure with hypoxia and hypercarbia Diastolic CHF exacerbation COPD exacerbation SECONDARY DIAGNOSIS: SUYAPA does not use CPAP Major depressive disorder Bipolar, anxiety disorder, adjustment disorder History of Cannabis use disorder. Nonobstructive Coronary artery disease with history of NSTEMI 2012 Degenerative disc disease with chronic musculoskeletal pain and muscle spasm. Chronic low back pain on narcotics Sacroiliac joint pain and myofascial pain. Fibromyalgia. Osteoarthritis Gastroesophageal reflux disease (GERD). Hypertension. Hyperlipidemia Diabetes Obesity Hypothyroidism. Adrenal nodule on the right, seems to be adrenal adenoma. Lung nodule COMPLICATIONS/CHIEF COMPLAINT: Copd, Acute And Chronic Respiratory Failure. HISTORY OF PRESENT ILLNESS: See history and physical HOSPITAL COURSE: 62 year old female current smoker with COPD, chronic respiratory failure with hypoxia and hypercarbia, SUYAPA, Bipolar disorder, anxiety, diabetes, Hypertension, Hypothyroid, CAD, obesity presented to the ED for worsening SOB along with increased cough and chest tightness for 1 day, without much phlegm production along with leg swelling. She has been using her nebs at home, without any relief so called EMS. EMS found to be gasping for air unable to speak in full sentences. Patient was last discharged from the hospital on 11/13/18. After getting nebs in the ED and by EMS she has already started feeling better. She thinks the worm humid weather had worsened her breathing. SHe does say she has central AC at home. She was admitted for acute on chronic respiratory failure with hypoxia and hypercarbia due to advanced COPD and possibly CHF. Acute on Chronic respiratory failure with hypercarbia and hypoxia due to CHF exacerbation in a patient with COPD causing COPD exacerbation No other cause for COPD exacerbation could be found except for mild fluid overload. Diastolic CHF exacerbation continue Lasix 2 gm sodium diet COPD with chronic respiratory failure with hypoxia and hypercarbia SUYAPA does not use CPAP due to claustrophobia She was given 2 devices over the past 8 years but both were taken away because of noncompliance. continue oxygen supplementation Nonobstructive Coronary artery disease with history of NSTEMI 2012 continue bisoprolol, statin, asa Degenerative disc disease /Chronic low back pain /Sacroiliac joint pain and myofascial pain/ osteoarthritis continue home meds Fibromyalgia. continue Cymbalta, gabapentin Gastroesophageal reflux disease (GERD). continue PPI Hypertension. continue bisoprolol Hyperlipidemia continue statin Diabetes lispro and levemir in hospital continue januvia Obesity complicating care Hypothyroidism. continue Synthroid Major depressive disorder without any psychotic features /Bipolar/anxiety disorder/adjustment disorder abilify. ativan 0.5 mg prn DISCHARGE MEDICATIONS: Please see below. ALLERGIES: Please see below. PHYSICAL EXAMINATION ON DISCHARGE: VITAL SIGNS: Please see below. General Exam: Positive: Alert, Cooperative, No Acute Distress Eye Exam: Positive: PERRLA, Conjunctiva & lids normal, EOMI ENT Exam: Positive: Atraumatic, Mucous membr. moist/pink, Pharynx Normal Neck Exam: Positive: Supple, +2 carotid pulse wo bruit Chest Exam: Positive: Clear to auscultation, Normal air movement, Wheezing; Negative: Rales, Rhonchi Heart Exam: Positive: Rate Normal, Regular Rhythm (no murmur) Abdomen Exam: Positive: Normal bowel sounds, Soft (NT ND) Extremity Exam: Positive: Edema (chronic 1+ bilaterally) Skin Exam: Positive: Nl turgor and temperature Neuro Exam: Positive: Normal Speech, Strength at 5/5 X4 ext, Normal Tone, Sensation Intact Psych Exam: Positive: Mental status NL, Mood NL, Oriented x 3 Other physical findings LABORATORY DATA: Please see below. ACTIVITY: [As tolerated]. DIET: 2 gm sodium and carb consistent diet DISPOSITION: 01 Home, Self-Care. DISCHARGE INSTRUCTIONS: follow up PMD in 1 week DISCHARGE CONDITION: [Stable]. TIME SPENT ON DISCHARGE: 35 minutes. Vital Signs/I&Os Vital Signs Date Time Temp Pulse Resp B/P (MAP) Pulse Ox O2 Delivery O2 Flow Rate FiO2 11/25/18 09:24 2.0 11/25/18 09:14 82 132/74 11/25/18 06:00 96.6 20 92 11/24/18 13:54 Nasal Cannula I&O- Last 24 Hours up to 6 AM 11/25/18 06:00 Intake Total 1380 ml Output Total 2250 ml Balance -870 ml Laboratory Data Labs 24H Laboratory Tests 2 11/24/18 16:29: Bedside Glucose (Misc Panel) 328H 11/24/18 20:31: Bedside Glucose (Misc Panel) 343H 11/25/18 06:44: Bedside Glucose (Misc Panel) 236H 11/25/18 06:55: Immature Granulocyte % (Auto) 0.8, White Blood Count 13.8H, Red Blood Count 3.87L, Hemoglobin 11.5L, Hematocrit 36.9, Mean Corpuscular Volume 95.3, Mean Corpuscular Hemoglobin 29.7, Mean Corpuscular Hemoglobin Concent 31.2L, Red Cell Distribution Width 14.5, Platelet Count 379, Neutrophils (%) (Auto) 76.4H, Lymphocytes (%) (Auto) 15.0L, Monocytes (%) (Auto) 7.2H, Eosinophils (%) (Auto) 0.3, Basophils (%) (Auto) 0.3, Neutrophils # (Auto) 10.5H, Lymphocytes # (Auto) 2.1, Monocytes # (Auto) 1.0H, Eosinophils # (Auto) 0.0, Basophils # (Auto) 0.0, Nucleated Red Blood Cells % (auto) 0.0, Anion Gap 3L, Glomerular Filtration Rate > 60.0, Blood Urea Nitrogen 12, Creatinine 0.64, Sodium Level 137, Potassium Level 3.9, Chloride Level 94L, Carbon Dioxide Level 40H, Calcium Level 8.4L CBC/BMP Laboratory Tests 11/25/18 06:55 Red Blood Count 3.87 L, Mean Corpuscular Volume 95.3, Mean Corpuscular Hemoglobin 29.7, Mean Corpuscular Hemoglobin Concent 31.2 L, Red Cell Distribution Width 14.5, Neutrophils (%) (Auto) 76.4 H, Lymphocytes (%) (Auto) 15.0 L, Monocytes (%) (Auto) 7.2 H, Eosinophils (%) (Auto) 0.3, Basophils (%) (Auto) 0.3, Neutrophils # (Auto) 10.5 H, Lymphocytes # (Auto) 2.1, Monocytes # (Auto) 1.0 H, Eosinophils # (Auto) 0.0, Basophils # (Auto) 0.0, Calcium Level 8.4 L FSBS Laboratory Tests Test 11/24/18 16:29 11/24/18 20:31 11/25/18 06:44 Range/Units Bedside Glucose (Misc Panel) 328 343 236 80-115 MG/DL Discharge Medications Scheduled Aripiprazole (Abilify) 5 Mg Tablet, 2.5 MG PO QHS, (Reported) Aspirin (Aspirin EC) 81 Mg Tabec, 81 MG PO DAILY, (Reported) Atorvastatin Calcium (Lipitor) 80 Mg Tab, 80 MG PO QHS, (Reported) Bisoprolol Fumarate (Bisoprolol Fumarate) 5 Mg Tab, 2.5 MG PO DAILY, (Reported) Ergocalciferol (Vitamin D2) (Drisdol) 50,000 Unit Cap, 50,000 UNIT PO 1XWK, (Reported) [place] Fluoxetine Hcl (Fluoxetine HCl) 20 Mg Capsule, 20 MG PO DAILY, (Reported) Fluticasone Propion/Salmeterol (Advair Hfa 230-21 Mcg Inhaler) 12 Gm Hfa.aer.ad, 2 PUFF INH BID, (Reported) Fluticasone Propionate (Flonase Allergy Relief) 50 Mcg/Act Spr, 1 SPRAY NA DAILY, (Reported) Gabapentin (Gabapentin) 800 Mg Tab, 800 MG PO TID, (Reported) Levothyroxine Sodium (Levoxyl) 25 Mcg Tab, 25 MCG PO DAILY, (Reported) Metformin HCl (Metformin HCl) 1,000 Mg Tab, 1,000 MG PO BID, (Reported) Nystatin (Nystatin Powder) 15 Gm Powder, 1 DOSE TOP QHS, (Reported) USES UNDER BREASTS Pantoprazole Sodium (Pantoprazole Sodium) 40 Mg Tab, 40 MG PO DAILY, (Reported) Prednisone (Prednisone) 5 Mg Tablet, 5 MG PO DAILY, (Reported) Prochlorperazine Maleate (Prochlorperazine Maleate) 10 Mg Tablet, 10 MG PO DAILY, (Reported) Sertraline Hcl (Zoloft) 100 Mg Tablet, 100 MG PO DAILY, (Reported) Sitagliptin Phosphate (Januvia) 100 Mg Tablet, 100 MG PO DAILY, (Reported) Tiotropium [place] Monohydrate (Spiriva) 18 Mcg Cap.w.dev, 1 INHALATION INH DAILY, (Reported) Varenicline (Chantix) 1 Mg Tablet, 1 MG PO DAILY, (Reported) Scheduled PRN Albuterol Sulfate (Ventolin Hfa) 108 Mcg/Act Aer, 2 PUFFS INH Q4H PRN for SHORTNESS OF BREATH, (Reported) Furosemide (Lasix) 40 Mg Tablet, 40 MG PO DAILYPRN PRN for CONGESTION Hydrocodone/Acetaminophen ([place] 7.5-325 Tablet) 1 Each Tablet, 1 TAB PO BID PRN for PAIN, (Reported) Hydroxyzine Pamoate (Hydroxyzine Pamoate) 25 Mg Capsule, 25 MG PO TID PRN for ANXIETY, (Reported) Ipratropium/Albuterol Sulfate (Iprat-Albut 0.5-3(2.5) mg/3 ml) 1 Sommer Sommer, 3 ML INH QID PRN for SHORTNESS OF BREATH, (Reported) Menthol (Bengay) 5% Gel..gram., 1 DOSE TOP QID PRN for PAIN, (Reported) APPLIES TO NECK AND BACK Allergies Coded Allergies: No Known Allergies (Unverified , 11/23/18) OLIVIA PORTER MD Nov 25, 2018 12:23
== END 2018-11-25 09:51 | disposition home or self-care (01) | DRG 189 ==
LOC: M ED 19:48 → M ED INP 11-24 00:14 → M MSPAV 11-24 13:49
PROVIDERS: ADMIT Family Medicine; ATTEND Internal Medicine Nephrology
DX: J96.21 Acute and chronic respiratory failure with hypoxia (principal); I50.33 Acute on chronic diastolic (congestive) heart failure; J44.1 Chronic obstructive pulmonary disease with (acute) exacerbation; J96.22 Acute and chronic respiratory failure with hypercapnia; E03.9 Hypothyroidism, unspecified; E11.9 Type 2 diabetes mellitus without complications; G47.33 Obstructive sleep apnea (adult) (pediatric); R91.1 Solitary pulmonary nodule; F41.9 Anxiety disorder, unspecified; F31.9 Bipolar disorder, unspecified; M79.7 Fibromyalgia; K21.9 Gastro-esophageal reflux disease without esophagitis; E78.5 Hyperlipidemia, unspecified; M54.5 Low back pain; I11.0 Hypertensive heart disease with heart failure; E66.9 Obesity, unspecified; I25.10 Atherosclerotic heart disease of native coronary artery without angina pectoris; I25.2 Old myocardial infarction; Z99.81 Dependence on supplemental oxygen; Z79.82 Long term (current) use of aspirin; Z79.84 Long term (current) use of oral hypoglycemic drugs; Z79.899 Other long term (current) drug therapy; D35.01 Benign neoplasm of right adrenal gland; Z90.49 Acquired absence of other specified parts of digestive tract; Z87.891 Personal history of nicotine dependence

== ENCOUNTER 2018-11-28 03:01 | Inpatient (IN) | payer MEDICARE, MEDICAID ==
[2018-11-27] MEDS: ATORVASTATIN 20 MG TAB PO SCH (21:00)
[~2018-11-28] VITALS: Ht 165.1 cm; Wt 91.9 kg
[2018-11-28] VITALS (7 sets, daily range): BP systolic 124–137; BP diastolic 65–76; O2SAT 94
[~2018-11-28 03:01] MED LIST changes: +LASI40TA9 PO; +ZOLO100T PO
[2018-11-28] MEDS ORDERED: IPRATROPIUM 0.5MG/ALBUTEROL 2.5MG INH SOL UD 3ML (DUONEB)(J7620) As Ordered ONE (03:28)
[2018-11-28 03:31] LABS: BASO # 0.1 10^3/uL (0.0-0.2); BASO % 0.6 % (0.0-1.0); EOS % 0.1 % (0.0-3.0); HEMATOCRIT 45.3 % (36.0-47.0); HEMOGLOBIN 13.9 g/dl (12.0-15.5); LYMPH # 1.2 10^3/uL (1.5-4.5); LYMPH % 8.4 % (24.0-44.0); MEAN CORPUSCULAR HEMOGLOBIN 29.9 pg (27.0-33.0); MEAN CORPUSCULAR HGB CONC 30.7 g/dl (32.0-36.5); MEAN CORPUSCULAR VOLUME 97.4 fl (80.0-96.0); MONO # 0.7 10^3/uL (0.0-0.8); MONO % 4.6 % (0.0-5.0); NEUTROPHILS # 12.1 10^3/uL (1.8-7.7); NEUTROPHILS % 85.1 % (36.0-66.0); PLATELET COUNT, AUTOMATED 405 10^3/uL (150-450); RED BLOOD COUNT 4.65 10^6/uL (4.00-5.40); WHITE BLOOD COUNT 14.2 10^3/uL (4.0-10.0)
[2018-11-28] MEDS: IPRATROPIUM 0.5MG/ALBUTEROL 2.5MG INH SOL UD 3ML (DUONEB)(J7620) NEB SCH ×6 (03:35→19:39)
[2018-11-28] MEDS ORDERED: dexameTHASONE 20 MG/5 ML VIAL (J1100) IV ONE (03:45)
[2018-11-28 03:56] LABS: BLOOD UREA NITROGEN 15 MG/DL (7-18); CALCIUM LEVEL 8.2 MG/DL (8.8-10.2); CARBON DIOXIDE LEVEL 39 MEQ/L (21-32); CHLORIDE LEVEL 96 MEQ/L (98-107); CK-MB VALUE MASS 2.8 NG/ML (<3.6); CPK CREATINE PHOSPHOKINASE 56 U/L (26-192); CREATININE FOR GFR 0.44 MG/DL (0.55-1.30); GLOMERULAR FILTRATION RATE > 60.0 (>45); GLUCOSE, FASTING 311 MG/DL (70-100); NT-PRO BNP 2324 PG/ML (<125); POTASSIUM SERUM 4.3 MEQ/L (3.5-5.1); SODIUM LEVEL 138 MEQ/L (136-145); TROPONIN I 0.02 NG/ML (< 0.10)
[2018-11-28] MEDS ORDERED: ALBUTEROL SULFATE 2.5 MG/0.5 ML INH NEB SOLN NEB PRN (05:45)
[2018-11-28] MEDS ORDERED: MOM 30ML SUSPENSION UDC PO PRN (05:45)
[2018-11-28] MEDS ORDERED: ACETAMINOPHEN TAB 650MG DOSE (2X325MG) PO PRN (05:45)
[2018-11-28] MEDS ORDERED: GLUCOSE 4 GM CHEW TABLET PO PRN (05:45)
[2018-11-28] MEDS ORDERED: MAALOX 30 ML SUSP *UDC PO PRN (05:45)
[2018-11-28] MEDS ORDERED: DEXTROSE 50% 50 ML SYRINGE IV PRN (05:45)
[2018-11-28] MEDS ORDERED: GLUCAGON FOR INJ 1 MG VIAL (J1610) SC PRN (05:45)
[2018-11-28] MEDS ORDERED: PILL CUTTER 1 EACH XX PRN (06:00)
--- NOTE | 2018-11-28 06:06 | HPEPDOC ---
General Date of Admission 11/28/18 Date of Service: Nov 28, 2018 Primary Care Physician: Natalie Antony Attending Physician: TEN SULLIVAN DO Chief Complaint The patient is a 62-year-old female admitted with a reason for visit of SOB. Source: Patient, EMS, Old records Exam Limitations: Clinical conditions, Other (lethargic on bipap) Timing/Duration: 4-6 hours Severity: Severe Associated Symptoms: Chest Pain, Shortness of breath History of Present Illness 62yo diabetic female recently hospitalized 11/13 and 11/24 for acute/chronic r espiratory failure, brought back to ED earlier this AM with increasing SOB. Patient was treated with total 20mg IV Decadron (5mg in ambulance and 15mg in ED), 4 nebulizers, oxygen and continued to have CP/SOB. Repeat ABG with worsening hypercapnic and somnelence and patient placed on bipap. Currently, patient is lethargic -opens eyes and talks with verbal stimuli but falls back to sleep while talking. She states was doing well after discharge on 11/25/18 until this AM at approx 0100 she woke up SOB with chest pain. States she was compliant in taking medications and was discharged home on 5mg prednisone. She states "heat makes it hard to breath" and that she now has central airconditioning in her house. The remaining history was unobtainable from patient as she continued to fall asleep during evaluation. She is unable to describe chest pain. old records reviewed. Home Medications Scheduled Aripiprazole (Abilify) 5 Mg Tablet, 2.5 MG PO QHS, (Reported) Aspirin (Aspirin EC) 81 Mg Tabec, 81 MG PO DAILY, (Reported) Atorvastatin Calcium (Lipitor) 80 Mg Tab, 80 MG PO QHS, (Reported) Bisoprolol Fumarate (Bisoprolol Fumarate) 5 Mg Tab, 2.5 MG PO DAILY, (Reported) Ergocalciferol (Vitamin D2) (Drisdol) 50,000 Unit Cap, 50,000 UNIT PO 1XWK, (Reported) FRIDAYS Fluoxetine Hcl (Fluoxetine HCl) 20 Mg Capsule, 20 MG PO DAILY, (Reported) Fluticasone Propion/Salmeterol (Advair Hfa 230-21 Mcg Inhaler) 12 Gm Hfa.aer.ad, 2 PUFF INH BID, (Reported) Fluticasone Propionate (Flonase Allergy Relief) 50 Mcg/Act Spr, 1 SPRAY NA DAILY, (Reported) Gabapentin (Gabapentin) 800 Mg Tab, 800 MG PO TID, (Reported) Levothyroxine Sodium (Levoxyl) 25 Mcg Tab, 25 MCG PO DAILY, (Reported) Metformin HCl (Metformin HCl) 1,000 Mg Tab, 1,000 MG PO BID, (Reported) Nystatin (Nystatin Powder) 15 Gm Powder, 1 DOSE TOP QHS, (Reported) USES UNDER BREASTS Pantoprazole Sodium (Pantoprazole Sodium) 40 Mg Tab, 40 MG PO DAILY, (Reported) Prednisone (Prednisone) 5 Mg Tablet, 5 MG PO DAILY, (Reported) Prochlorperazine Maleate (Prochlorperazine Maleate) 10 Mg Tablet, 10 MG PO DAILY, (Reported) Sertraline Hcl (Zoloft) 100 Mg Tablet, 100 MG PO DAILY, (Reported) Sitagliptin Phosphate (Januvia) 100 Mg Tablet, 100 MG PO QPM, (Reported) Tiotropium [place] Monohydrate (Spiriva) 18 Mcg Cap.w.dev, 1 INHALATION INH DAILY, (Reported) Varenicline (Chantix) 1 Mg Tablet, 1 MG PO DAILY, (Reported) Scheduled PRN Albuterol Sulfate (Ventolin Hfa) 108 Mcg/Act Aer, 2 PUFFS INH Q4H PRN for SHORTNESS OF BREATH, (Reported) Hydrocodone/Acetaminophen (Gerry 7.5-325 Tablet) 1 Each Tablet, 1 TAB PO BID PRN for PAIN, (Reported) Hydroxyzine Pamoate (Hydroxyzine Pamoate) 25 Mg Capsule, 25 MG PO TID PRN for ANXIETY, (Reported) Ipratropium/Albuterol Sulfate (Iprat-Albut 0.5-3(2.5) mg/3 ml) 1 Sommer Sommer, 3 ML INH QID PRN for SHORTNESS OF BREATH, (Reported) Menthol (Bengay) 5% Gel..gram., 1 DOSE TOP QID PRN for PAIN, (Reported) APPLIES TO NECK AND BACK Allergies Coded Allergies: No Known Allergies (Unverified , 11/23/18) Past Medical History Medical History Chronic respiratory failure with hypoxia and hypercarbia Chronic obstructive pulmonary disease (COPD) SUYAPA does not use CPAP - non compliance Major depressive disorder Bipolar, anxiety disorder, adjustment disorder History of Cannabis use disorder. Nonobstructive Coronary artery disease with history of NSTEMI 2012 Degenerative disc disease with chronic musculoskeletal pain and muscle spasm. Chronic low back pain on narcotics Sacroiliac joint pain and myofascial pain. Fibromyalgia. Osteoarthritis Gastroesophageal reflux disease (GERD). Hypertension. Hyperlipidemia Diabetes Obesity Hypothyroidism. Adrenal nodule on the right, seems to be adrenal adenoma. Lung nodule Surgical History Cholecystectomy. Cardiac catheterization without stent. History of breast biopsy. Dilation and curettage. Tubal ligation. Tonsillectomy. Exploratory laparotomy. 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 moist/pink, Pharynx Normal, Other ENT (bipap on) Neck Exam: Positive: Supple, +2 carotid pulse wo bruit Chest Exam: Positive: Clear to auscultation, Diminished; Negative: Normal air movement, Rales, Rhonchi, Wheezing Heart Exam: Positive: Rate Normal, Regular Rhythm (90-98) Telemetry: Positive: No significant arrhythmia Abdomen Exam: Positive: Normal bowel sounds, Soft (NT, mildly distended (bipap gas)) Extremity Exam: Positive: Edema (trace ankle bilaterally), Normal pulses Skin Exam: Positive: Nl turgor and temperature; Negative: Rash Neuro Exam: Positive: Other (patient somnelent, lethargic. not oriented to place, events. oriented to name; unable to follow simple commands - falls back to sleep while talking) Psych Exam: Positive: Other (unable to assess due to deteriorating condition) Vital Signs Vital Signs Date Time Temp Pulse Resp B/P (MAP) Pulse Ox O2 Delivery O2 Flow Rate FiO2 11/28/18 04:55 40 11/28/18 04:55 96 BIPAP/CPAP 11/28/18 04:46 99 11/28/18 04:45 24 126/71 (89) 11/28/18 03:46 15.0 11/28/18 03:08 96.5 Laboratory Data Labs 24H Laboratory Tests 2 11/28/18 03:15: Immature Granulocyte % (Auto) 1.2, White Blood Count 14.2H, Red Blood Count 4.65, Hemoglobin 13.9, Hematocrit 45.3, Mean Corpuscular Volume 97.4H, Mean Corpuscular Hemoglobin 29.9, Mean Corpuscular Hemoglobin Concent 30.7L, Red Cell Distribution Width 14.3, Platelet Count 405, Neutrophils (%) (Auto) 85.1H, Lymphocytes (%) (Auto) 8.4L, Monocytes (%) (Auto) 4.6, Eosinophils (%) (Auto) 0.1, Basophils (%) (Auto) 0.6, Neutrophils # (Auto) 12.1H, Lymphocytes # (Auto) 1.2L, Monocytes # (Auto) 0.7, Eosinophils # (Auto) 0.0, Basophils # (Auto) 0.1, Nucleated Red Blood Cells % (auto) 0.0, Anion Gap 3L, Glomerular Filtration Rate > 60.0, Blood Urea Nitrogen 15, Creatinine 0.44L, Sodium Level 138, Potassium L evel 4.3, Chloride Level 96L, Carbon Dioxide Level 39H, Calcium Level 8.2L, Total Creatine Kinase 56, Creatine Kinase MB 2.8, Creatine Kinase MB Relative Index 5.00H, Troponin I 0.02, UO-Udx-R-Type Natriuretic Peptide 2324H 11/28/18 03:29: POC pH (Misc Panel) 7.276L, POC Base Excess (Misc Panel) 14.0H, POC Saturated Percent O2 (Misc) 96, POC pO2 (Misc Panel) 103.0, POC pCO2 (Misc Panel) 87.4*H, POC HCO3 (Misc Panel) 40.7H, POC Total CO2 (Misc Panel) 43.0H 11/28/18 04:50: POC pH (Misc Panel) 7.225*L, POC Base Excess (Misc Panel) 15.0H, POC Saturated Percent O2 (Misc) 100H, POC pO2 (Misc Panel) 219.0H, POC pCO2 (Misc Panel) 104.2*H, POC HCO3 (Misc Panel) 43.1H, POC Total CO2 (Misc Panel) 46.0H Item Value Date Time POC pH (Misc Panel) 7.225 UNITS *L 11/28/18449 POC Base Excess (Misc Panel) 15.0 MMOL/L H 11/28/18449 POC Saturated Percent O2 (Misc) 100 % H 11/28/18449 POC pO2 (Misc Panel) 219.0 MMHG H 11/28/18449 POC pCO2 (Misc Panel) 104.2 MMHG *H 11/28/18449 POC HCO3 (Misc Panel) 43.1 MMOL/L H 11/28/18449 POC Total CO2 (Misc Panel) 46.0 MMOL/L H 11/28/18449 POC pH (Misc Panel) 7.276 UNITS L 11/28/18328 POC Base Excess (Misc Panel) 14.0 MMOL/L H 11/28/18328 POC Saturated Percent O2 (Misc) 96 % 11/28/18328 POC pO2 (Misc Panel) 103.0 MMHG 11/28/18328 POC pCO2 (Misc Panel) 87.4 MMHG *H 11/28/18328 POC HCO3 (Misc Panel) 40.7 MMOL/L H 11/28/18328 POC Total CO2 (Misc Panel) 43.0 MMOL/L H 11/28/18328 CBC/BMP Laboratory Tests 11/28/18 03:15 Red Blood Count 4.65, Mean Corpuscular Volume 97.4 H, Mean Corpuscular Hemoglobin 29.9, Mean Corpuscular Hemoglobin Concent 30.7 L, Red Cell Distributi on Width 14.3, Neutrophils (%) (Auto) 85.1 H, Lymphocytes (%) (Auto) 8.4 L, Monocytes (%) (Auto) 4.6, Eosinophils (%) (Auto) 0.1, Basophils (%) (Auto) 0.6, Neutrophils # (Auto) 12.1 H, Lymphocytes # (Auto) 1.2 L, Monocytes # (Auto) 0.7, Eosinophils # (Auto) 0.0, Basophils # (Auto) 0.1, Calcium Level 8.2 L, Total Creatine Kinase 56 RAD Interpretation STUDY: CXR Rad Actions: Films Reviewed RAD Interpretation: Unchanged, Other Result Comments: (no infiltrate, no effusions) Assessment/Plan 1) acute on chronic hypercapnic hypoxic respiratory failure - pulm television mechanic consulted. on bipap and repeat ABG at 0700 - nebs, solumedrol. Antibiotics not initiated at this time 2) Encephalopathy due to hypercapnea Bipap. monitor 3) Chest pain - r/o ACS - first troponin negative. repeat troponin; she has history of non obstructive CAD with NSTEMI in 2013. continue betablocker, ASA and statin 4) Diastolic CHF without current exacerbation - patient was not sent home with diuretics and appears euvolemic at this time 5) SUYAPA but does not use CPAP 6) HTN - continue current meds 7) Diabetes - not on residential insulin and with hyperglycemia - NPO , BS check q6h and cover with SSI. levemir not started yet. 8) hypothyroid - stable 9) depression/anxiety - patient is on 2 SSRI (prozac and zoloft) along with abilify and chantix (for smoking cessation) . Will d/c prozac and continue with zoloft, abilify and chantix. no signs of serotonin syndrome. Will hold abilify, gabapentin during hypersomnolence CODE STATUS: FULL DVT PROPHYLAXIS: Enoxaprin Plan / VTE VTE Prophylaxis Ordered?: Yes TEN SULLIVAN DO Nov 28, 2018 05:05
[2018-11-28] MEDS ORDERED: HumaLOG INSULIN (NovoLOG) PER UNIT SC ONE (06:30)
[2018-11-28] MEDS ORDERED: HumaLOG INSULIN (NovoLOG) PER UNIT SC SCH ×2 (07:30→21:00)
[2018-11-28 07:49] LABS: ABG BASE EXCESS 8.8 (-2.0-2.0); ABG HCO3 37.5 MEQ/L (22.0-26.0); ABG O2 SATURATION 94.6 % (95.0-99.0); ABG PARTIAL PRESSURE O2 76.2 mmHg (75.0-100.0); ABG STANDARD HCO3 32.5 MEQ/L (22.0-26.0); ABG TOTAL CO2 39.8 MEQ/L (23.0-31.0); ABG pH (ARTERIAL) 7.332 UNITS (7.350-7.450)
[2018-11-28 07:52] LABS: ABG PARTIAL PRESSURE CO2 72.5 mmHg (35.0-45.0)
[2018-11-28] MEDS ORDERED: BUDESONIDE 0.5 MG/2 ML INHALATION SUSPENSION INH SCH (08:00)
[2018-11-28] MEDS: TIOTROPIUM INHALER/CAPSULE (SPIRIVA) INH SCH (08:00)
[2018-11-28] MEDS ORDERED: predniSONE 10 MG TAB PO SCH (09:00)
[2018-11-28] MEDS: PROCHLORPERAZINE 5 MG TAB (S0183) PO SCH (09:28)
[2018-11-28] MEDS: GABAPENTIN 400 MG CAP PO SCH ×3 (09:28→20:17)
[2018-11-28] MEDS: LEVOTHYROXINE 25MCG TABLET (0.025MG) PO SCH (09:28)
[2018-11-28] MEDS: VARENICLINE 1 MG TABLET PO SCH (09:28)
[2018-11-28] MEDS: DOCUSATE SODIUM 100 MG CAP PO SCH ×2 (09:28→20:17)
[2018-11-28] MEDS: SERTRALINE 100 MG TAB PO SCH (09:28)
[2018-11-28] MEDS: PANTOPRAZOLE 40MG TAB (PROTONIX) PO SCH (09:28)
[2018-11-28] MEDS: ASPIRIN 81 MG ENTERIC TAB PO SCH (09:28)
[2018-11-28] MEDS: ENOXAPARIN 40 MG/0.4 ML SYRINGE (J1650) SC SCH (09:29)
[2018-11-28] MEDS: FUROSEMIDE 40 MG/4 ML VIAL (J1940) IV SCH (09:29)
[2018-11-28] MEDS: BISOPROLOL FUM 2.5 MG PER 1/2TAB PO SCH (09:29)
[2018-11-28] MEDS: LEVEMIR (INSULIN DETEMIR) 1 UNITS/0.01ML SC SCH (09:30)
[2018-11-28] MEDS: HumaLOG INSULIN (NovoLOG) PER UNIT SC SCH ×3 (12:19→20:21)
[2018-11-28] MEDS ORDERED: methylPREDNISolone INJ 40 MG/1 ML VIAL (J2920) IV SCH ×2 (14:00)
[2018-11-28] MEDS: ADVAIR HFA 230/21MCG INHALER INH SCH ×2 (15:22→19:39)
--- NOTE | 2018-11-28 15:39 | ECGEPIP ---
[facility] - ED Test Date: 2018-11-28 Pat Name: MIGUEL NAQVI Department: Room: [place] [address] Gender: Female Clinical Director: LAZARO : 1955 Requested By: RADHA COUGHLIN Order Number: [id number] Reading MD: Vidya Villavicencio Measurements Intervals [place] Rate: 106 P: 62 KS: 148 QRS: 28 QRSD: 96 T: 78 QT: 329 QTc: 437 Interpretive Statements SINUS TACHYCARDIA POSSIBLE LEFT ATRIAL ENLARGEMENT LOW VOLTAGE LIMB POSSIBLE ANTERIOR INFARCT, AGE INDETERMINATE ABNORMAL RHYTHM ECG SIMILAR 11/23/18 Electronically Signed on 11-28-2018 15:39:45 EDT by Vidya Villavicencio
[2018-11-28] MEDS: hydrOXYzine 25 MG TAB PO PRN (17:30)
[2018-11-28 19:55] LABS: ABG BASE EXCESS 12.6 (-2.0-2.0); ABG HCO3 40.3 MEQ/L (22.0-26.0); ABG O2 SATURATION 96.1 % (95.0-99.0); ABG PARTIAL PRESSURE O2 90.3 mmHg (75.0-100.0); ABG STANDARD HCO3 36.4 MEQ/L (22.0-26.0); ABG TOTAL CO2 42.3 MEQ/L (23.0-31.0); ABG pH (ARTERIAL) 7.398 UNITS (7.350-7.450)
[2018-11-28 19:57] LABS: ABG PARTIAL PRESSURE CO2 66.8 mmHg (35.0-45.0)
[2018-11-28] MEDS: ATORVASTATIN 20 MG TAB PO SCH (20:17)
[2018-11-28] MEDS: ANEXSIA, NORCO 7.5MG/325MG TABLET(HYDROCODONE/APAP) PO PRN (20:18)
[2018-11-29] VITALS: BP 132/72
[2018-11-29] MEDS: IPRATROPIUM 0.5MG/ALBUTEROL 2.5MG INH SOL UD 3ML (DUONEB)(J7620) NEB SCH ×4 (02:07→20:00)
[2018-11-29 04:00] VITALS: BP 144/67
[2018-11-29 05:15] LABS: HEMATOCRIT 35.9 % (36.0-47.0); MEAN CORPUSCULAR HEMOGLOBIN 29.4 pg (27.0-33.0); MEAN CORPUSCULAR HGB CONC 31.2 g/dl (32.0-36.5); MEAN CORPUSCULAR VOLUME 94.2 fl (80.0-96.0); PLATELET COUNT, AUTOMATED 370 10^3/uL (150-450); RED BLOOD COUNT 3.81 10^6/uL (4.00-5.40); WHITE BLOOD COUNT 11.1 10^3/uL (4.0-10.0)
[2018-11-29 05:21] LABS: HEMOGLOBIN 11.2 g/dl (12.0-15.5)
[2018-11-29 05:37] LABS: BLOOD UREA NITROGEN 16 MG/DL (7-18); CALCIUM LEVEL 8.2 MG/DL (8.8-10.2); CARBON DIOXIDE LEVEL 41 MEQ/L (21-32); CHLORIDE LEVEL 92 MEQ/L (98-107); CREATININE FOR GFR 0.52 MG/DL (0.55-1.30); GLOMERULAR FILTRATION RATE > 60.0 (>45); GLUCOSE, FASTING 198 MG/DL (70-100); POTASSIUM SERUM 3.8 MEQ/L (3.5-5.1); SODIUM LEVEL 135 MEQ/L (136-145)
[2018-11-29 06:19] LABS: ABG BASE EXCESS 13.2 (-2.0-2.0); ABG HCO3 40.5 MEQ/L (22.0-26.0); ABG O2 SATURATION 95.1 % (95.0-99.0); ABG PARTIAL PRESSURE O2 81.9 mmHg (75.0-100.0); ABG TOTAL CO2 42.5 MEQ/L (23.0-31.0); ABG pH (ARTERIAL) 7.408 UNITS (7.350-7.450)
[2018-11-29 06:22] LABS: ABG PARTIAL PRESSURE CO2 65.7 mmHg (35.0-45.0)
[2018-11-29] MEDS: ADVAIR HFA 230/21MCG INHALER INH SCH ×2 (07:32→20:00)
[2018-11-29] MEDS: TIOTROPIUM INHALER/CAPSULE (SPIRIVA) INH SCH (07:32)
--- NOTE | 2018-11-29 07:57 | CR ---
DATE OF CONSULTATION: 11/28/2018 I was asked by Dr. Chavarria to evaluate Ms. Zavala for acute on chronic respiratory failure leading to noninvasive mechanical ventilation. HISTORY OF PRESENT ILLNESS: Ms. Zavala is a 62-year-old female for whom this is her tenth admission for acute and chronic respiratory failure, with her last admission being 11/24/2018. Ms. Zavala reports to me that she was in her usual state of health until yesterday afternoon when she started to feel more short of breath. She noted an increased cough, chest pain, increased usage of her rescue bronchodilators. She did not feel she developed a bronchitis. No ill contacts. No chest pain or pressure. No nausea, vomiting or diarrhea. She then went to sleep and woke up gasping for air and called 9-1-1. She was found have acute and chronic respiratory failure in the emergency department and started on noninvasive mechanical ventilator and is rapidly corrected. She also was again started and increased dosage of systemic corticosteroids. She is on 5 mg daily at baseline. Ms. Zavala is in an air conditioned environment did not go outside yesterday. She reports that she has not smoked in 20 days. She does have a son who smokes and he does not smoke in the house, but he does smoke in the automobile he sometimes takes her places. Later she indicated that on rare occasions he will smoke in her residence. Ms. Zavala is scheduled to have a polysomnogram for presumed obstructive sleep apnea 12/03/2018. ALLERGIES: No known drug allergies. MEDICATIONS ON ADMISSION: - Ventolin HFA two puffs every 4 hours as needed - Abilify 2.5 mg by mouth nightly - aspirin 81 mg daily - Lipitor 80 mg by mouth daily - bisoprolol 2.5 mg by mouth daily - Drisdol 50,0000 units by mouth weekly - fluoxetine 20 mg by mouth daily - Advair 230/21 two puffs twice a day - fluticasone one spray each nostril daily - gabapentin 800 mg by mouth three times a day - [place] one tablet by mouth twice a day as needed - hydroxyzine 25 mg by mouth three times a day as needed - DuoNeb four times a day as needed - levothyroxine 25 mcg by mouth daily - [place] topical four times a day as needed - metformin 1000 mg by mouth twice a day - Nystatin powder topically placed under breasts nightly - pantoprazole 40 mg by mouth daily - prednisone 5 mg by mouth daily - prochlorperazine 10 mg by mouth daily - Zoloft 100 mg by mouth daily - Januvia 100 mg by mouth every evening - Spiriva one puff daily - Chantix 1 mg by mouth daily PAST MEDICAL HISTORY: 1. Chronic hypoxemic and hypercapnic respiratory failure. 2. Chronic obstructive pulmonary disease (COPD). 3. Obstructive sleep apnea (SUYAPA), diagnosed in the past, but noncompliant with continuous positive airway pressure (C-PAP) and does not have a device at present. 4. Bipolar disorder. 5. Anxiety disorder. 6. Adjustment disorder. 7. History of cannabis usage. 8. Nonobstructive coronary artery disease. 9. History of [id number] myocardial infarction (NSTEMI) 2012 10. Degenerative disk disease. 11. Chronic lower back pain. 12. Sacroiliac joint pain and myofascial pain. 13. Fibromyalgia. 14. Osteoarthritis. 15. Gastroesophageal reflux disease (GERD). 16. Dyslipidemia. 17. Diabetes mellitus, type 2. 18. Obesity. 19. Hypothyroidism. 20. Right adrenal nodule thought to be adenoma. 21. History of lung nodule. 22. Status post cholecystectomy. 23. Status post dilation and curettage (D and C). 24. Status post tubal ligation. 25. Status post tonsillectomy. 26. Status post exploratory laparotomy/ 27. History of tobacco usage, recent cessation, high risk for relapse. SOCIAL HISTORY: Ms. Zavala quit smoking 11/12/2012, but is exposed to some secondhand smoke through her son. No alcohol usage. She has used cannabis. She has been disabled since 1997. 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 FAMILY HISTORY: Her father of a myocardial infarction. Her mother of lung cancer. REVIEW OF SYSTEMS: Per history of present illness (HPI); remainder of pertinent review of systems are negative. PHYSICAL EXAMINATION: GENERAL: Ms. Zavala is lying in bed in no acute distress. She can easily complete full sentences. No cough on evaluation. VITAL SIGNS: Temperature 98.9 which is her maximum temperature (T-max), respiratory rate 20. Pulse 85, blood pressure 130/65 with a mean arterial pressure (MAP) of 86%. SpO2 93% on nasal cannula. HEENT: Anicteric, Pupils equal and reactive to light and accommodation. Nares: Oxygen tubing in place. Oropharynx clear. No lesions, Mallampati IV. Face is normal. NECK: Supple, without apparent jugular venous distention (JVD), though difficult examination secondary to body habitus, trachea is midline. LYMPHATICS: Without cervical or supraclavicular lymphadenopathy. LUNGS: Symmetric excursion, generalized diminished air entry. Rare expiratory wheeze. No rhonchi or crackle. Prolonged expiratory phase. No accessory muscle usage or retractions. CARDIOVASCULAR: Regular rate and rhythm with a normal S1, S2, no murmur or gallop appreciated. ABDOMEN: Positive bowel sounds, soft, nondistended, nontender, no hepatosplenomegaly appreciated and difficult to exam secondary to obesity. EXTREMITIES: Warm and well-perfused, without clubbing, cyanosis or edema. LABORATORY DATA: Complete blood count (CBC) showed a hemoglobin of 13.9, hematocrit 45.3, platelet count 105,000, white blood cell count 14,200, with a differential of 85% neutrophils, 8% lymphocytes, and 5% monocytes. Chemistry shows sodium 138, potassium 4.3, chloride 96, bicarbonate 39, anion gap 30, BUN 14, creatinine 0.4, glucose 311, calcium 8.2. CK 56, CK-MB 2.8, troponin-I 0.020. BNP 2324. Her initial arterial blood gas in the emergency department was 7.27/87/103/41 with a measured saturation of 96% and a base excess of 14. A repeat arterial blood gas a little over an hour later was 7.23/104/219, with an SAO2 of 100% and a base excess of 15. I do not know what oxygen this is drawn on, but obviously a significant amount of oxygen. It was my understanding after this arterial blood gas she was placed on noninvasive mechanical ventilation, but i do not know that for sure. Repeat arterial blood gas after having been on noninvasive mechanical ventilation (NIMV) at 18/8 with an FiO2 of 0.4 was 7.33/73/76 with a measured saturation of 95% and a base excess of 8.8. I reviewed her chest x-ray from earlier this morning. That x-ray showed normal-appearing cardiac silhouette and possibly a enlarged pulmonary vascular shadows. No acute infiltrates. Evidence of hyperinflation. IMPRESSION: 1. Acute on chronic hypoxemic and hypercapnic respiratory failure. Based on her history, I suspect a significant portion of her difficulties with secondary to paroxysmal nocturnal dyspnea (PND)-related untreated sleep apnea. I feel that this process may have been worsened by a high FiO2 based on her pO2 of over 200, though I do not know for sure what oxygen she had been placed on. She does not appear to have an acute exacerbation of her COPD, and that is in part evidenced by her rapid recovery in just a few hours, as well as her history. 2. COPD with hypoxemia and hypercapnia at baseline. 3. Obstructive sleep apnea, not currently treated, scheduled for polysomnogram 12/03/2018. 4. Diabetes mellitus, insulin-requiring. 5. Hypertension. 6. Obesity. 7. Encephalopathy, felt secondary to hypercapnia. 8. History of diastolic congestive heart failure (CHF). 9. Hypothyroidism. 10. Depression/anxiety and sorry. 11. Significant tobacco usage, recent cessation, high risk for relapse. RECOMMENDATIONS: 1. Will change to a tabletop bilevel. I would recommend keeping on this modality until discharge. I would recommend tabletop settings of 14/8 with an FiO2 bleed in to maintain saturations 88-92%. 2. Communicated to the hospitalist that she is scheduled for a polysomnogram on 12/03/2018 and she needs to be outpatient by that time and ideally, she would not be discharged to the sleep lab. 3. We will change her over to oral corticosteroids, again I do not feel this is an exacerbation, rather in large part related to untreated sleep apnea. 4. We will continue bronchodilators. 5. We will restart her outpatient pulmonary medications. Critical care time 35 minutes, not including procedure time.
[2018-11-29 08:00] VITALS: BP 123/58
[2018-11-29] MEDS: FUROSEMIDE 40 MG/4 ML VIAL (J1940) IV SCH (08:20)
[2018-11-29] MEDS: LEVEMIR (INSULIN DETEMIR) 1 UNITS/0.01ML SC SCH (08:20)
[2018-11-29] MEDS: SERTRALINE 100 MG TAB PO SCH (08:21)
[2018-11-29] MEDS: DOCUSATE SODIUM 100 MG CAP PO SCH ×2 (08:21→21:00)
[2018-11-29] MEDS: LEVOTHYROXINE 25MCG TABLET (0.025MG) PO SCH (08:21)
[2018-11-29] MEDS: ASPIRIN 81 MG ENTERIC TAB PO SCH (08:21)
[2018-11-29] MEDS: PANTOPRAZOLE 40MG TAB (PROTONIX) PO SCH (08:21)
[2018-11-29] MEDS: PROCHLORPERAZINE 5 MG TAB (S0183) PO SCH (08:22)
[2018-11-29] MEDS: ANEXSIA, NORCO 7.5MG/325MG TABLET(HYDROCODONE/APAP) PO PRN (08:22)
[2018-11-29] MEDS: GABAPENTIN 400 MG CAP PO SCH ×3 (08:22→21:19)
[2018-11-29] MEDS: VARENICLINE 1 MG TABLET PO SCH (08:22)
[2018-11-29] MEDS: hydrOXYzine 25 MG TAB PO PRN (08:24)
[2018-11-29] MEDS: BISOPROLOL FUM 2.5 MG PER 1/2TAB PO SCH (08:24)
[2018-11-29] MEDS: ENOXAPARIN 40 MG/0.4 ML SYRINGE (J1650) SC SCH (08:25)
[2018-11-29] MEDS: HumaLOG INSULIN (NovoLOG) PER UNIT SC SCH ×4 (08:27→21:00)
[2018-11-29] MEDS ORDERED: predniSONE 10 MG TAB PO SCH (09:00)
[2018-11-29 12:00] VITALS: BP 120/60
[2018-11-29 16:00] VITALS: BP 110/64
--- NOTE | 2018-11-29 17:09 | IPNPDOC ---
Subjective Date Seen The patient was seen on 11/29/18. Subjective Chief Complaint/HPI 62f with hx of copd, pulmonary htn, presumed carlos, dm with frequent admissions for respiratory failure, admitted again with acute on chronic hypercapneic respiratory failure. pt denies recent illness and attributes this to the weather conditions on the day of admission. Now improved with nocturnal bipap. Does also report new pedal edema a full 10 pt ROS was performed and negative with the exception of what is documented above Objective Physical Examination General Exam: Positive: Moderate Distress, Other (not alert, patient is somelent) Eye Exam: Positive: PERRLA, Conjunctiva & lids normal, EOMI ENT Exam: Positive: Mucous membr. moist/pink, Pharynx Normal, Other ENT (bipap on) Neck Exam: Positive: Supple, +2 carotid pulse wo bruit Chest Exam: Positive: Clear to auscultation, Diminished; Negative: Normal air movement, Rales, Rhonchi, Wheezing Heart Exam: Positive: Rate Normal, Regular Rhythm (90-98) Telemetry: Positive: No significant arrhythmia Abdomen Exam: Positive: Normal bowel sounds, Soft (NT, mildly distended (bipap gas)) Extremity Exam: Positive: Edema (trace ankle bilaterally), Normal pulses Skin Exam: Positive: Nl turgor and temperature; Negative: Rash Neuro Exam: Positive: Other (patient somnelent, lethargic. not oriented to place, events. oriented to name; unable to follow simple commands - falls back to sleep while talking) Psych Exam: Positive: Other (unable to assess due to deteriorating condition) Assessment /Plan Assessment 62f with chronic respiratory failure 2/2 to copd and likely carlos, now with an acute exacerbation respiratory failure possibly exacerbated by heat and humidity this past weekend no evidence of infection has elevated bnp and some edema, but no evidence of left sided chf had normal echo last month continue nocturnal bipap will downgrade from icu DM diabetic diet finger sticks sliding scale correction basal bolus if needed copd not in acute exacerbation continue spiriva and albuterol getting low dose prednisone hypothyroid stable continue synthroid CARLOS presumed continue bipap needs dc for scheduled sleep study on thursday likely dc tomorrow Plan/VTE VTE Prophylaxis Ordered?: Yes VS, I&O, 24H, Fishbone Vital Signs/I&O Vital Signs Date Time Temp Pulse Resp B/P (MAP) Pulse Ox O2 Delivery O2 Flow Rate FiO2 11/29/18 15:30 2.0 11/29/18 12:00 97.9 83 18 120/60 (80) 90 11/28/18 12:00 35 11/28/18 05:35 BIPAP/CPAP I&O- Last 24 Hours up to 6 AM 11/29/18 05:59 Intake Total 1730 ml Output Total 4000 ml Balance -2270 ml Laboratory Data 24H LABS Laboratory Tests 2 11/28/18 17:06: Bedside Glucose (Misc Panel) 257H 11/28/18 19:41: Blood Gas Bicarbonate Standard 36.4H, Arterial Blood pH 7.398, Arterial Blood Partial Pressure CO2 66.8*H, Arterial Blood Partial Pressure O2 90.3, Arterial Blood Total CO2 42.3H, Arterial Blood HCO3 40.3H, Arterial Blood Base Excess 12.6H, Arterial Blood Oxygen Saturation 96.1 11/28/18 20:21: Bedside Glucose (Misc Panel) 335H 11/29/18 05:03: Nucleated Red Blood Cells % (auto) 0.0, Anion Gap 2L, Glomerular Filtration Rate > 60.0, Blood Urea Nitrogen 16, Creatinine 0.52L, Sodium Level 135L, Potassium Level 3.8, Chloride Level 92L, Carbon Dioxide Level 41H, Calcium Level 8.2L 11/29/18 06:03: Blood Gas Bicarbonate Standard 37.0H, Arterial Blood pH 7.408, Arterial Blood Partial Pressure CO2 65.7*H, Arterial Blood Partial Pressure O2 81.9, Arterial Blood Total CO2 42.5H, Arterial Blood HCO3 40.5H, Arterial Blood Base Excess 13.2H, Arterial Blood Oxygen Saturation 95.1 11/29/18 12:12: Bedside Glucose (Misc Panel) 247H 11/29/18 16:35: Bedside Glucose (Misc Panel) 320H CBC/BMP Laboratory Tests 11/29/18 05:03 Red Blood Count 3.81 L, Mean Corpuscular Volume 94.2, Mean Corpuscular Hemoglobin 29.4, Mean Corpuscular Hemoglobin Concent 31.2 L, Red Cell Distribution Width 14.1, Calcium Level 8.2 L LB BOCANEGRA MD Nov 29, 2018 17:09
[2018-11-29 20:00] VITALS: BP 106/55
[2018-11-29] MEDS: ATORVASTATIN 20 MG TAB PO SCH (21:19)
[2018-11-30] VITALS: BP 145/77
[2018-11-30] MEDS: IPRATROPIUM 0.5MG/ALBUTEROL 2.5MG INH SOL UD 3ML (DUONEB)(J7620) NEB SCH ×2 (02:01→07:25)
[2018-11-30 04:00] VITALS: BP 166/72
[2018-11-30] MEDS: TIOTROPIUM INHALER/CAPSULE (SPIRIVA) INH SCH (07:23)
[2018-11-30] MEDS: ADVAIR HFA 230/21MCG INHALER INH SCH (07:24)
[2018-11-30 08:00] VITALS: BP 112/55
[2018-11-30] MEDS: FUROSEMIDE 40 MG/4 ML VIAL (J1940) IV SCH (08:30)
[2018-11-30] MEDS: HumaLOG INSULIN (NovoLOG) PER UNIT SC SCH ×2 (08:31→11:45)
[2018-11-30] MEDS: LEVEMIR (INSULIN DETEMIR) 1 UNITS/0.01ML SC SCH (08:31)
[2018-11-30] MEDS: ENOXAPARIN 40 MG/0.4 ML SYRINGE (J1650) SC SCH (08:32)
[2018-11-30] MEDS: GABAPENTIN 400 MG CAP PO SCH (08:32)
[2018-11-30] MEDS: PROCHLORPERAZINE 5 MG TAB (S0183) PO SCH (08:32)
[2018-11-30 08:33] VITALS: BP 112/55
[2018-11-30] MEDS: BISOPROLOL FUM 2.5 MG PER 1/2TAB PO SCH (08:33)
[2018-11-30] MEDS: ASPIRIN 81 MG ENTERIC TAB PO SCH (08:33)
[2018-11-30] MEDS: LEVOTHYROXINE 25MCG TABLET (0.025MG) PO SCH (08:33)
[2018-11-30] MEDS: PANTOPRAZOLE 40MG TAB (PROTONIX) PO SCH (08:33)
[2018-11-30] MEDS: VARENICLINE 1 MG TABLET PO SCH (08:33)
[2018-11-30] MEDS: DOCUSATE SODIUM 100 MG CAP PO SCH (08:34)
[2018-11-30] MEDS: ANEXSIA, NORCO 7.5MG/325MG TABLET(HYDROCODONE/APAP) PO PRN (08:47)
[2018-11-30] MEDS: SERTRALINE 100 MG TAB PO SCH (08:47)
[2018-11-30] MEDS ORDERED: predniSONE 5 MG TAB PO SCH (09:00)
[2018-11-30] MEDS ORDERED: DOXY100C PO (11:01)
[2018-11-30 11:52] VITALS: BP 118/55
[2018-11-30] MEDS ORDERED: DOXYCYCLINE HYCLATE 100 MG TAB PO ONE (12:00)
--- NOTE | 2018-11-30 16:43 | DS.PDOC ---
Discharge Summary General Date of Admission Nov 28, 2018 at 05:00 Date of Discharge 11/30/18 Specialist/Consultants Involve: Cary PILLAI MD Discharge Summary PROCEDURES PERFORMED DURING STAY: [None]. ADMITTING DIAGNOSES: #acute/chronic hypoxic respiratory failure SECONDARY DIAGNOSES: Chronic respiratory failure with hypoxia and hypercarbia Chronic obstructive pulmonary disease (COPD) SUYAPA does not use CPAP - non compliance Major depressive disorder Bipolar, anxiety disorder, adjustment disorder History of Cannabis use disorder. Nonobstructive Coronary artery disease with history of NSTEMI 2012 Degenerative disc disease with chronic musculoskeletal pain and muscle spasm. Chronic low back pain on narcotics Sacroiliac joint pain and myofascial pain. Fibromyalgia. Osteoarthritis Gastroesophageal reflux disease (GERD). Hypertension. Hyperlipidemia Diabetes Obesity Hypothyroidism. Adrenal nodule on the right, seems to be adrenal adenoma. Lung nodule COMPLICATIONS/CHIEF COMPLAINT: Acute On Chronic Resp Failure. HISTORY OF PRESENT ILLNESS: 62yo diabetic female recently hospitalized 11/13 and 11/24 for acute/chronic respiratory failure, brought back to ED with increasing SOB. Patient was treated with total 20mg IV Decadron (5mg in ambulance and 15mg in ED), 4 nebulizers, oxygen and continued to have CP/SOB. Repeat ABG with worsening hypercapnic and somnelence and patient placed on bipap. HOSPITAL COURSE: Patient responded well to NIPPV. Seen in consultation by pulmonary. Patient at baseline oxygen status. Determined by pulmonary to be likely secondary to her SUYAPA/OHS, not COPD. Patient with no complaints, anxious to return home. Discharged home with outpatient follow up in three days for sleep study. DISCHARGE MEDICATIONS: Please see below. ALLERGIES: Please see below. PHYSICAL EXAMINATION ON DISCHARGE: VITAL SIGNS: Please see below. GENERAL: NAD, lying comfortably in bed HEENT: NC/AT NECK: supple CARDIOVASCULAR EXAMINATION: +S1S2, RRR RESPIRATORY EXAMINATION: CTA B/L ABDOMINAL EXAMINATION: soft, obese, NT, +BS EXTREMITIES: no edema LABORATORY DATA: Please see below. ACTIVITY: [As tolerated]. DISCHARGE PLAN: follow up with treatment plan as directed DISPOSITION: 06 Home Health Service. DISCHARGE INSTRUCTIONS: 1. sleep study on 12/03/18 2. PCP in 3-5 days DISCHARGE CONDITION: [Stable]. TIME SPENT ON DISCHARGE: Greater than 35 minutes. Vital Signs/I&Os Vital Signs Date Time Temp Pulse Resp B/P (MAP) Pulse Ox O2 Delivery O2 Flow Rate FiO2 11/30/18 11:52 96.4 77 22 118/55 (76) 92 2.0 11/30/18 02:02 35 11/28/18 05:35 BIPAP/CPAP I&O- Last 24 Hours up to 6 AM 11/30/18 06:00 Intake Total 1660 ml Output Total 4900 ml Balance -3240 ml Laboratory Data Labs 24H Laboratory Tests 2 11/29/18 21:17: Bedside Glucose (Misc Panel) 233H 11/30/18 07:33: Bedside Glucose (Misc Panel) 176H 11/30/18 11:21: Bedside Glucose (Misc Panel) 214H 11/30/18 12:02: Urine Color YELLOW, Urine Appearance CLEAR, Urine pH 6.0, Urine Specific Cades 1.012, Urine Protein NEGATIVE, Urine Glucose (UA) NEGATIVE, Urine Ketones NEGATIVE, Urine Blood NEGATIVE, Urine Nitrite NEGATIVE, Urine Bilirubin N EGATIVE, Urine Urobilinogen 0.2, Urine Leukocyte Esterase NEGATIVE, Urine WBC (Auto) 0, Urine RBC (Auto) 0, Urine Hyaline Casts (Auto) 3, Urine Bacteria (Auto) NEGATIVE, Urine Squamous Epithelial Cells 0, Urine Mucus (Auto) SMALL, Urine Sperm (Auto) FSBS Laboratory Tests Test 11/29/18 21:17 11/30/18 07:33 11/30/18 11:21 Range/Units Bedside Glucose (Misc Panel) 233 176 214 80-115 MG/DL Discharge Medications Scheduled Aripiprazole (Abilify) 5 Mg Tablet, 2.5 MG PO QHS, (Reported) Aspirin (Aspirin EC) 81 Mg Tabec, 81 MG PO DAILY, (Reported) Atorvastatin Calcium (Lipitor) 80 Mg Tab, 80 MG PO QHS, (Reported) Bisoprolol Fumarate (Bisoprolol Fumarate) 5 Mg Tab, 2.5 MG PO DAILY, (Reported) Doxycycline Hyclate (Doxycycline Hyclate) 100 Mg Capsule, 100 MG PO BID Ergocalciferol (Vitamin D2) (Drisdol) 50,000 Unit Cap, 50,000 UNIT PO 1XWK, (Reported) FRIDAYS Fluoxetine Hcl (Fluoxetine HCl) 20 Mg Capsule, 20 MG PO DAILY, (Reported) Fluticasone Propion/Salmeterol (Advair Hfa 230-21 Mcg Inhaler) 12 Gm Hfa.aer.ad, 2 PUFF INH BID, (Reported) Fluticasone Propionate (Flonase Allergy Relief) 50 Mcg/Act Spr, 1 SPRAY NA DAILY, (Reported) Gabapentin (Gabapentin) 800 Mg Tab, 800 MG PO TID, (Reported) Levothyroxine Sodium (Levoxyl) 25 Mcg Tab, 25 MCG PO DAILY, (Reported) Metformin HCl (Metformin HCl) 1,000 Mg Tab, 1,000 MG PO BID, (Reported) Nystatin (Nystatin Powder) 15 Gm Powder, 1 DOSE TOP QHS, (Reported) USES UNDER BREASTS Pantoprazole Sodium (Pantoprazole Sodium) 40 Mg Tab, 40 MG PO DAILY, (Reported) Prednisone (Prednisone) 5 Mg Tablet, 5 MG PO DAILY, (Reported) Prochlorperazine Maleate (Prochlorperazine Maleate) 10 Mg Tablet, 10 MG PO DAILY, (Reported) Sertraline Hcl (Zoloft) 100 Mg Tablet, 100 MG PO DAILY, (Reported) Sitagliptin Phosphate (Januvia) 100 Mg Tablet, 100 MG PO QPM, (Reported) Tiotropium Stanley Monohydrate (Spiriva) 18 Mcg Cap.w.dev, 1 INHALATION INH DAILY, (Reported) Varenicline (Chantix) 1 Mg Tablet, 1 MG PO DAILY, (Reported) Scheduled PRN Albuterol Sulfate (Ventolin Hfa) 108 Mcg/Act Aer, 2 PUFFS INH Q4H PRN for SHORTNESS OF BREATH, (Reported) Hydrocodone/Acetaminophen ([place] 7.5-325 Tablet) 1 Each Tablet, 1 TAB PO BID PRN for PAIN, (Reported) Hydroxyzine Pamoate (Hydroxyzine Pamoate) 25 Mg Capsule, 25 MG PO TID PRN for ANXIETY, (Reported) Ipratropium/Albuterol Sulfate (Iprat-Albut 0.5-3(2.5) mg/3 ml) 1 Sommer Sommer, 3 ML INH QID PRN for SHORTNESS OF BREATH, (Reported) Menthol (Bengay) 5% Gel..gram., 1 DOSE TOP QID PRN for PAIN, (Reported) APPLIES TO NECK AND BACK Allergies Coded Allergies: No Known Allergies (Unverified , 11/23/18) JUDE NICOLE MD Nov 30, 2018 16:43
--- NOTE | 2018-12-01 12:37 | REP ---
Clinical: Dyspnea . Comparison: 11/23/2018 . Findings: The mediastinum and cardiac silhouette are stable and within normal limits for portable technique. The lung cherry are clear without acute consolidation, effusion, or pneumothorax. Skeletal structures are intact. Impression: No acute cardiopulmonary process appreciated. Electronically Signed by Michael Vasques MD 11/28/2018 07:53 A
== END 2018-11-30 13:10 | disposition home health service (06) | DRG 189 ==
LOC: M ED 03:01 → M ED INP 05:00 → M ICU 05:32 → M PCU 11-29 15:35
PROVIDERS: ADMIT Family Medicine; ATTEND Internal Medicine
DX: J96.21 Acute and chronic respiratory failure with hypoxia (principal); G93.41 Metabolic encephalopathy; I50.32 Chronic diastolic (congestive) heart failure; J96.22 Acute and chronic respiratory failure with hypercapnia; G47.33 Obstructive sleep apnea (adult) (pediatric); J44.9 Chronic obstructive pulmonary disease, unspecified; Z91.19 Patient's noncompliance with other medical treatment and regimen; F31.9 Bipolar disorder, unspecified; R91.1 Solitary pulmonary nodule; E03.9 Hypothyroidism, unspecified; E66.9 Obesity, unspecified; E11.9 Type 2 diabetes mellitus without complications; E78.5 Hyperlipidemia, unspecified; I11.0 Hypertensive heart disease with heart failure; K21.9 Gastro-esophageal reflux disease without esophagitis; M19.90 Unspecified osteoarthritis, unspecified site; M79.7 Fibromyalgia; M54.5 Low back pain; I25.10 Atherosclerotic heart disease of native coronary artery without angina pectoris; I25.2 Old myocardial infarction; F41.9 Anxiety disorder, unspecified; M79.18 Myalgia, other site; D35.01 Benign neoplasm of right adrenal gland; Z79.82 Long term (current) use of aspirin; Z79.899 Other long term (current) drug therapy; Z87.891 Personal history of nicotine dependence

== ENCOUNTER 2018-12-03 19:45 | Inpatient (IN) | payer MEDICARE, MEDICAID ==
[~2018-12-03 19:45] MED LIST changes: +DOXY100C PO; -DULO1CAP2 PO; -DULO1CAP3 PO; +DULO1CAP5 PO; +DULO1CAP6 PO
[2018-12-03 20:04] LABS: HEMATOCRIT 48.5 % (36.0-47.0); HEMOGLOBIN 14.5 g/dl (12.0-15.5); MEAN CORPUSCULAR HEMOGLOBIN 29.5 pg (27.0-33.0); MEAN CORPUSCULAR HGB CONC 29.9 g/dl (32.0-36.5); MEAN CORPUSCULAR VOLUME 98.6 fl (80.0-96.0); PLATELET COUNT, AUTOMATED 577 10^3/uL (150-450); RED BLOOD COUNT 4.92 10^6/uL (4.00-5.40)
[2018-12-03 20:05] LABS: VENOUS BASE EXCESS 5.7 (-2.0-2.0); VENOUS HCO3 41.5 MEQ/L (23.0-27.0); VENOUS O2 SATURATION 98.3 % (60.0-80.0); VENOUS PARTIAL PRESSURE CO2 145.6 mmHg (38.0-50.0); VENOUS PARTIAL PRESSURE O2 211.9 mmHg (30.0-50.0); VENOUS PH 7.073 UNITS (7.330-7.430); VENOUS STANDARD HCO3 29.6 MEQ/L
[2018-12-03] MEDS ORDERED: PROPOFOL 1,000 MG/100 ML VIAL As Ordered ONE (20:05)
[2018-12-03 20:10] LABS: WHITE BLOOD COUNT 20.8 10^3/uL (4.0-10.0)
[2018-12-03] MEDS ORDERED: PIPERACILLIN/TAZOBACTAM SOD 3.375 GM in D5W MINI-BAG PLUS 50 ML IV ONE (20:15)
[2018-12-03] MEDS ORDERED: ROCURONIUM BROMIDE 50 MG/5 ML VIAL IV ONE (20:15)
[2018-12-03] MEDS ORDERED: ETOMIDATE INJ 20MG/10ML VIAL IV ONE (20:15)
[2018-12-03] MEDS: PROPOFOL 1,000 MG in APPROPRIATE DILUENT 1 EA IV SCH ×2 (20:17→23:00)
[2018-12-03 20:26] LABS: BASOPHILS 3 % (0-4); EOSINOPHILS 2 % (0-5); LYMPHOCYTES 31 % (16-52); MONOCYTES 2 % (0-8); NEUTROPHILS 62 % (35-75); PLATELET ESTIMATE INCREASED (NORMAL)
[2018-12-03 20:27] LABS: POLYCHROMASIA 1+
[2018-12-03 20:30] LABS: ABG BASE EXCESS 8.1 (-2.0-2.0); ABG HCO3 38.7 MEQ/L (22.0-26.0); ABG O2 SATURATION 98.8 % (95.0-99.0); ABG PARTIAL PRESSURE O2 257.2 mmHg (75.0-100.0); ABG TOTAL CO2 41.5 MEQ/L (23.0-31.0)
[2018-12-03] MEDS ORDERED: NS 1,000 ML IV ONE (20:30)
[2018-12-03 20:32] LABS: ABG PARTIAL PRESSURE CO2 90.6 mmHg (35.0-45.0); ABG pH (ARTERIAL) 7.249 UNITS (7.350-7.450)
[2018-12-03 20:38] LABS: ALBUMIN 3.4 GM/DL (3.2-5.2); ALT/SGPT 99 U/L (12-78); BILIRUBIN,DIRECT 0.1 MG/DL (0.0-0.2); BILIRUBIN,TOTAL 0.2 MG/DL (0.2-1.0); BLOOD UREA NITROGEN 12 MG/DL (7-18); CALCIUM LEVEL 9.4 MG/DL (8.8-10.2); CARBON DIOXIDE LEVEL 42 MEQ/L (21-32); CHLORIDE LEVEL 101 MEQ/L (98-107); CK-MB VALUE MASS 1.4 NG/ML (<3.6); CPK CREATINE PHOSPHOKINASE 37 U/L (26-192); GLOMERULAR FILTRATION RATE > 60.0 (>45); GLUCOSE, FASTING 220 MG/DL (70-100); MB/CK RELATIVE INDEX 3.78 (< OR =4); NT-PRO BNP 275 PG/ML (<125); SODIUM LEVEL 142 MEQ/L (136-145); THYROXINE (T4) 7.1 UG/DL (4.5-12.0); TOTAL PROTEIN 7.3 GM/DL (6.4-8.2); TROPONIN I < 0.02 NG/ML (< 0.10)
[2018-12-03] MEDS ORDERED: IPRA0.00 IN (20:58)
[2018-12-03] MEDS ORDERED: FURO40TA2 PO (20:58)
[2018-12-03] MEDS ORDERED: LISI-1046 PO (20:58)
[2018-12-03] MEDS ORDERED: DOXY100C PO (20:58)
[2018-12-03] MEDS ORDERED: FARX1TAB3 PO (20:58)
[2018-12-03] MEDS ORDERED: PATIENT COMMENTS (21:00)
[2018-12-03] MEDS ORDERED: GLUCAGON FOR INJ 1 MG VIAL (J1610) SC PRN (21:45)
[2018-12-03] MEDS ORDERED: GLUCOSE 4 GM CHEW TABLET PO PRN (21:45)
[2018-12-03] MEDS ORDERED: DEXTROSE 50% 50 ML SYRINGE IV PRN (21:45)
[2018-12-03] MEDS ORDERED: PILL CUTTER 1 EACH XX PRN (21:45)
[2018-12-03 22:00] VITALS: BP 90/55
--- NOTE | 2018-12-03 22:22 | HPE ---
HISTORY AND PHYSICAL/CRITICAL CARE ADMIT NOTE DATE OF ADMISSION: 12/03/2018 I was called to the emergency room (ER) to attend Constance Zavala. This is a 62-year-old female, well known to me from the outpatient setting with essentially end-stage obstructive lung disease with chronic hypoxemic and hypercapnic respiratory failure, diabetes mellitus and, unfortunately, continued tobacco abuse. She is known to have right-sided heart failure, fluid retention. She was just discharged from the hospital 11/30/2018. This is her 12th hospital admission since early July. She continues to smoke. At the time of her last discharge on 11/30/2018, she was scheduled to return to the sleep lab to return to continuous positive airway pressure (CPAP) therapy. Apparently since being at home, she is more short of breath. She presented today essentially unresponsive by emergency medical services (EMS) and was intubated by the ER. On arrival, blood gas was drawn, which showed a pH of 7.249, pCO2 of 90.6, pO2 of 257 on a non-rebreather, and she was, therefore, intubated. Chest x-ray shows no obvious infiltrate. Endotracheal tube is in good position. ALLERGIES: None listed. MEDICATIONS AT HOME: - Abilify 5 mg a day - baby aspirin 81 mg a day - Lipitor 80 mg a day - bisoprolol 5 mg a day - vitamin B12 5000 units a week - fluoxetine 20 mg a day - Advair 230/21 two puffs twice daily - Flonase nasal spray - gabapentin 800 mg three times a day - Synthroid 25 mcg daily - metformin 1000 mg a day - Nystatin - pantoprazole 40 mg a day - prednisone recently 40 mg a day - prochlorperazine 10 mg as needed - Zoloft 100 mg at night - Januvia 100 mg every evening - Spiriva - Chantix PAST MEDICAL HISTORY: Significant for: Advanced obstructive lung disease. Previous non-ST elevation myocardial infarction (OH) in 2012. Chronic hypoxemic and hypercapnic respiratory failure still oxygen requiring Obstructive sleep apnea (SUYAPA) with noncompliance with CPAP. Major depression. Bipolar disease. Chronic back pain. Fibromyalgia. Hyperlipidemia. Diabetes mellitus. Hypothyroidism. SURGICAL HISTORY: Cholecystectomy. Cardiac catheterization without stent placement. Previous breast biopsy. Dilation and curettage. Tubal ligation. Tonsillectomy. Exploratory laparotomy. SOCIAL HISTORY: Lives at home with family nearby. Still smoking. FAMILY HISTORY: Significant for mother with lung cancer, father of an OH. REVIEW OF SYSTEMS: As per the history of the present illness; otherwise: Constitutional: Negative for any recent fevers or chills. HEENT: Unremarkable for double vision or blurry vision. Pulmonary: As per history of the present illness. Cardiac: She does describe intermittent chest pain, and she is currently able to nod and answer questions. Gastrointestinal (GI): Unremarkable for any recent nausea or vomiting. Genitourinary (): Unremarkable for recent dysuria, urgency. Neurologic: Unremarkable for any seizures or strokes. Endocrine: Significant for diabetes and hypothyroidism. Dermatologic: Unremarkable for rash or psoriasis. Musculoskeletal: Unremarkable. Psychiatric: Significant for her depression. PHYSICAL EXAMINATION: On exam, she is currently intubated, mechanically ventilated and sedated with propofol. Blood pressure 112 systolic, heart rate 110 with a sinus mechanism. She does not over breathe the ventilator, which is set at 16 breaths a minute. HEENT: Otherwise generally normocephalic and atraumatic. Pupils do react. Endotracheal tube is in place. Trachea is in the midline. Chest: Symmetric with symmetric expansion. There are some faint crackles dependently. There is mid to late expiratory wheezing. No convincing rhonchus or rub. Cardiac Exam: Tachycardic but regular. Peripheral pulses diminished. There is at least 2 to 3+ pitting lower extremity edema bilaterally to the level of the knees. Abdomen: Obese, soft with active bowel sounds. No convincing organomegaly or masses. Extremities: Without cyanosis or clubbing. Neurologic: She is sedate but arousable, nods appropriately to questions. Psychiatric exam is sedate. Other laboratories show a white blood cell count of 20.8, hemoglobin 14.5, platelet count 577,000. Sodium 142, potassium of 5.0, chloride 101, CO2 42, BUN 12, creatinine 0.5, glucose 220. BNP 275. Chest x-ray as outlined above. Repeat blood gas is pending. IMPRESSION: 1. Acute on chronic respiratory failure, both hypoxemic and hypercapnic. 2. Essentially end-stage obstructive lung disease. 3. Continued tobacco abuse. 4. Known obstructive sleep apnea with noncompliance. 5. Previous cardiac disease. 6. Suspect right-sided heart failure. 7. Diabetes mellitus, non-insulin requiring. 8. Known depressive disorder. RECOMMENDATIONS: At this point, she will be admitted to the intensive care unit. Will treat her with IV steroids and albuterol via nebulizer. I do not see a role for antimicrobials at this point. I believe her white count is on the basis of her steroid therapy. Given her edema, she will be diuresed. Will check a troponin in the morning. EKG done this evening does not show any acute ST-T wave abnormalities. Hopefully we can convince her this admission to stop smoking, but I follow her in the outpatient setting and she has been recalcitrant in that regard. At this point, she remains critically ill. She remains a FULL CODE. Long-term outlook is poor in view of her noncompliance with medication and continued tobacco abuse. I left the bedside at 0925 hours. 35 minutes of critical care time at the bedside not including procedures. ISMAEL
[2018-12-03 22:45] VITALS: BP 112/56
[2018-12-03 23:00] VITALS: BP 98/54
[2018-12-03] MEDS: D5W/0.45% SODIUM CHLORIDE 1,000 ML IV SCH (23:00)
[2018-12-03] MEDS: methylPREDNISolone INJ 125 MG/2 ML VIAL (J2930) IV SCH (23:00)
[2018-12-03] MEDS: FUROSEMIDE 40 MG/4 ML VIAL (J1940) IV SCH (23:00)
[2018-12-03 23:30] VITALS: BP 122/64
[2018-12-04] VITALS (33 sets, daily range): BP systolic 91–134; BP diastolic 50–74
[2018-12-04] MEDS: HumaLOG INSULIN (NovoLOG) PER UNIT SC SCH ×4 (00:26→18:10)
[2018-12-04] MEDS: PROPOFOL 1,000 MG in APPROPRIATE DILUENT 1 EA IV SCH ×8 (01:19→21:52)
[2018-12-04] MEDS: MIDAZOLAM INJ 2 MG/2 ML VIAL (J2250) IV PRN ×6 (02:28→18:10)
[2018-12-04] MEDS: IPRATROPIUM 0.5MG/ALBUTEROL 2.5MG INH SOL UD 3ML (DUONEB)(J7620) NEB SCH ×6 (03:30→19:48)
[2018-12-04 05:43] LABS: ABG BASE EXCESS 10.2 (-2.0-2.0); ABG HCO3 37.3 MEQ/L (22.0-26.0); ABG O2 SATURATION 94.3 % (95.0-99.0); ABG PARTIAL PRESSURE O2 75.7 mmHg (75.0-100.0); ABG STANDARD HCO3 33.9 MEQ/L (22.0-26.0); ABG TOTAL CO2 39.2 MEQ/L (23.0-31.0); ABG pH (ARTERIAL) 7.394 UNITS (7.350-7.450)
[2018-12-04 05:45] LABS: ABG PARTIAL PRESSURE CO2 62.5 mmHg (35.0-45.0)
[2018-12-04] MEDS: methylPREDNISolone INJ 125 MG/2 ML VIAL (J2930) IV SCH (06:06)
[2018-12-04] MEDS: FUROSEMIDE 40 MG/4 ML VIAL (J1940) IV SCH ×3 (06:06→21:52)
[2018-12-04] MEDS: LEVOTHYROXINE 25MCG TABLET (0.025MG) PO SCH (06:07)
[2018-12-04] MEDS: HEPARIN SOD (PORCINE) 5000 UNITS/ML VIAL SC SCH ×3 (06:07→21:52)
[2018-12-04] MEDS: MORPHINE 4 MG/ML 1ML VIAL/SYRINGE (J2270) IV PRN (06:29)
--- NOTE | 2018-12-04 08:54 | REP ---
Portable chest x-ray: Single view. History: Respiratory failure. Comparison study: December 03, 2018. Findings: The endotracheal tube remains in good position at the level of the transverse aorta. An NG tube is seen entering the left upper quadrant of the abdomen. EKG electrodes and oxygen delivery tubing are noted. No acute infiltrate is appreciated. The pleural angles are sharp. Impression: No acute infiltrate. Electronically Signed by Ponce Higgins MD 12/04/2018 08:46 A
[2018-12-04] MEDS: CHLORHEXIDINE GLUCONATE 0.12 % 15ML UDC (PERIDEX ORAL RINSE) MT SCH ×2 (08:58→20:04)
[2018-12-04] MEDS: PANTOPRAZOLE 40MG INJ (PROTONIX) (C9113) IV SCH (09:00)
[2018-12-04] MEDS: BISOPROLOL FUM 2.5 MG PER 1/2TAB PO SCH (09:07)
--- NOTE | 2018-12-04 09:23 | REP ---
Portable chest x-ray: Single view. History: Dyspnea. Comparison chest x-ray: October 29, 2018. Findings: An endotracheal tube has been inserted with its tip in good position at the level of the transverse aorta. EKG monitoring electrodes are seen. The lungs are well inflated and free of infiltrate. Minimal linear fibrosis or plate-like atelectasis is seen in the left base. Pleural angles are sharp. The heart is not enlarged. Impression: Minimal plate-like atelectasis versus linear fibrosis left base. Endotracheal tube in good position. Otherwise no acute disease. Electronically Signed by Ponce Higgins MD 12/04/2018 09:15 A
[2018-12-04 09:43] LABS: BASO % 0.2 % (0.0-1.0); HEMATOCRIT 39.9 % (36.0-47.0); LYMPH # 0.6 10^3/uL (1.5-4.5); LYMPH % 5.4 % (24.0-44.0); MEAN CORPUSCULAR HEMOGLOBIN 29.4 pg (27.0-33.0); MEAN CORPUSCULAR HGB CONC 31.1 g/dl (32.0-36.5); MEAN CORPUSCULAR VOLUME 94.5 fl (80.0-96.0); MONO # 0.2 10^3/uL (0.0-0.8); MONO % 1.6 % (0.0-5.0); NEUTROPHILS # 10.3 10^3/uL (1.8-7.7); NEUTROPHILS % 91.6 % (36.0-66.0); RED BLOOD COUNT 4.22 10^6/uL (4.00-5.40); WHITE BLOOD COUNT 11.2 10^3/uL (4.0-10.0)
[2018-12-04 09:49] LABS: HEMOGLOBIN 12.4 g/dl (12.0-15.5)
[2018-12-04 09:50] LABS: PLATELET COUNT, AUTOMATED 386 10^3/uL (150-450)
[2018-12-04 10:15] LABS: ALT/SGPT 104 U/L (12-78); BILIRUBIN,TOTAL 0.4 MG/DL (0.2-1.0); BLOOD UREA NITROGEN 14 MG/DL (7-18); CALCIUM LEVEL 8.5 MG/DL (8.8-10.2); CARBON DIOXIDE LEVEL 37 MEQ/L (21-32); CHLORIDE LEVEL 97 MEQ/L (98-107); CHOLESTEROL LEVEL 148 MG/DL (< 200); CK-MB VALUE MASS 1.3 NG/ML (<3.6); CPK CREATINE PHOSPHOKINASE 37 U/L (26-192); CREATININE FOR GFR 0.59 MG/DL (0.55-1.30); GLOMERULAR FILTRATION RATE > 60.0 (>45); GLUCOSE, FASTING 262 MG/DL (70-100); LDH LACTATE DEHYDROGENASE 372 U/L (84-246); MB/CK RELATIVE INDEX 3.51 (< OR =4); PHOSPHORUS LEVEL 5.9 MG/DL (2.5-4.9); POTASSIUM SERUM 4.3 MEQ/L (3.5-5.1); SODIUM LEVEL 142 MEQ/L (136-145); TOTAL PROTEIN 7.1 GM/DL (6.4-8.2); TRIGLYCERIDES LEVEL 152 MG/DL (<150); TROPONIN I < 0.02 NG/ML (< 0.10)
--- NOTE | 2018-12-04 11:12 | CCN ---
DATE: 12/04/2018 START TIME: 0850 hours STOP TIME: 0932 hours I again attended Constance Zavala now here in the intensive care unit (ICU). The patient has been examined and the chart was reviewed. Lab work is all pending from this morning. Maximum temperature (t-max) overnight 97.5, blood pressure 90 to 130s, no vasopressors required. Heart rate generally in the 80s, respiratory rate 16 to 20. She was negative 1470 mL yesterday and is already negative 1265 mL today. Chest x-ray shows no new findings. Lines and tubes in good position. PHYSICAL EXAMINATION: She is sedate but is anxious when aroused. Pupils are reactive. Sclerae clear. Trachea is in the midline. Chest shows decreased breath sound intensity but expansion is symmetric. There are minimal crackles dependently today and no obvious wheezing. CARDIAC: Regular. No gallop. Peripheral pulses palpable. There is at least 1+ edema but a little improved from yesterday. ABDOMEN: Obese, soft, nontender with active bowel sounds. No convincing organomegaly or masses. EXTREMITIES: Without cyanosis or clubbing. NEUROLOGIC: She is sedate but moves all extremities when aroused. Available laboratories show a blood gas done this morning on PRBC of 16, tidal volume 420, PEEP of 5, FiO2 of 60% has a pH of 7.394, PCO2 of 62.5 PO2 of 75.7. The most pressing problems requiring my presence at the bedside are: 1. Acute on chronic hypoxemic and hypercapnic respiratory failure. 2. Advanced obstructive lung disease. 3. Obstructive sleep apnea syndrome. 4. Coronary artery disease. At this point, she has less bronchospasm so we will taper steroids. We will continue her gentle diuresis in view of her profound diffuse edema. Repeat lab work is pending. Her first troponins were negative. My hopes is that we can be able to push her weaning in the next 24 to 48 hours. We will begin some low dose enteral feeds today. Blood sugars have been acceptable. My concern however is her detention prognosis. She has not been able to stay out of the hospital more than several days at a time. She was scheduled to get back to the sleep lab to try to get back on pressure therapy in the home setting but has not been able to stay out of the hospital long enough to do that. My hopes is that we will be able to achieve that at some point. Smoking cessation is paramount. There were periods that she has been able to stop in between but I certainly wonder about that in view of her again frequent hospitalizations over the last little bit here. We will proceed as outlined above. She remains overall in critical condition. I left the bedside at 0922 hours. 42 minutes of critical care time was delivered at the bedside, not including procedures. ISMAEL
[2018-12-04] MEDS: methylPREDNISolone INJ 40 MG/1 ML VIAL (J2920) IV SCH ×2 (14:02→21:51)
[2018-12-04] MEDS: D5W/0.45% SODIUM CHLORIDE 1,000 ML IV SCH (18:09)
[2018-12-05] VITALS (23 sets, daily range): BP systolic 108–144; BP diastolic 57–82
[2018-12-05] MEDS: MIDAZOLAM INJ 2 MG/2 ML VIAL (J2250) IV PRN ×15 (00:08→23:51)
[2018-12-05] MEDS: PROPOFOL 1,000 MG in APPROPRIATE DILUENT 1 EA IV SCH ×9 (00:09→22:26)
[2018-12-05] MEDS: IPRATROPIUM 0.5MG/ALBUTEROL 2.5MG INH SOL UD 3ML (DUONEB)(J7620) NEB SCH ×6 (00:11→20:19)
[2018-12-05] MEDS: HumaLOG INSULIN (NovoLOG) PER UNIT SC SCH ×4 (00:14→17:42)
[2018-12-05] MEDS: MORPHINE 4 MG/ML 1ML VIAL/SYRINGE (J2270) IV PRN ×5 (00:27→23:51)
[2018-12-05 05:12] LABS: BASO % 0.2 % (0.0-1.0); HEMATOCRIT 37.6 % (36.0-47.0); LYMPH % 7.7 % (24.0-44.0); MEAN CORPUSCULAR HEMOGLOBIN 30.2 pg (27.0-33.0); MEAN CORPUSCULAR HGB CONC 31.9 g/dl (32.0-36.5); MEAN CORPUSCULAR VOLUME 94.5 fl (80.0-96.0); MONO % 7.4 % (0.0-5.0); NEUTROPHILS % 83.8 % (36.0-66.0); PLATELET COUNT, AUTOMATED 367 10^3/uL (150-450); RED BLOOD COUNT 3.98 10^6/uL (4.00-5.40); WHITE BLOOD COUNT 13.2 10^3/uL (4.0-10.0)
[2018-12-05 05:32] LABS: ALT/SGPT 72 U/L (12-78); BILIRUBIN,TOTAL 0.3 MG/DL (0.2-1.0); BLOOD UREA NITROGEN 19 MG/DL (7-18); CALCIUM LEVEL 8.6 MG/DL (8.8-10.2); CARBON DIOXIDE LEVEL 42 MEQ/L (21-32); CHLORIDE LEVEL 93 MEQ/L (98-107); CHOLESTEROL LEVEL 154 MG/DL (< 200); CPK CREATINE PHOSPHOKINASE 15 U/L (26-192); CREATININE FOR GFR 0.61 MG/DL (0.55-1.30); GLOMERULAR FILTRATION RATE > 60.0 (>45); GLUCOSE, FASTING 277 MG/DL (70-100); LDH LACTATE DEHYDROGENASE 192 U/L (84-246); PHOSPHORUS LEVEL 5.4 MG/DL (2.5-4.9); POTASSIUM SERUM 3.6 MEQ/L (3.5-5.1); SODIUM LEVEL 140 MEQ/L (136-145); TOTAL PROTEIN 6.1 GM/DL (6.4-8.2); TRIGLYCERIDES LEVEL 315 MG/DL (<150)
[2018-12-05] MEDS: FUROSEMIDE 40 MG/4 ML VIAL (J1940) IV SCH ×3 (06:01→21:28)
[2018-12-05] MEDS: HEPARIN SOD (PORCINE) 5000 UNITS/ML VIAL SC SCH ×3 (06:01→21:28)
[2018-12-05] MEDS: LEVOTHYROXINE 25MCG TABLET (0.025MG) PO SCH (06:01)
[2018-12-05] MEDS: methylPREDNISolone INJ 40 MG/1 ML VIAL (J2920) IV SCH ×2 (06:01→17:42)
[2018-12-05 06:09] LABS: ABG BASE EXCESS 16.2 (-2.0-2.0); ABG HCO3 42.4 MEQ/L (22.0-26.0); ABG O2 SATURATION 95.3 % (95.0-99.0); ABG PARTIAL PRESSURE CO2 59.5 mmHg (35.0-45.0); ABG PARTIAL PRESSURE O2 83.3 mmHg (75.0-100.0); ABG TOTAL CO2 44.3 MEQ/L (23.0-31.0); ABG pH (ARTERIAL) 7.471 UNITS (7.350-7.450)
--- NOTE | 2018-12-05 08:21 | REP ---
Portable chest x-ray: Single view. History: Respiratory failure. Comparison study: December 04, 2018. Findings: Endotracheal tube is seen in good position just above the transverse aorta. Oxygen delivery tubing and EKG electrodes are seen. A nasogastric tube is seen entering the left upper quadrant. Mildly prominent heart is noted again unchanged. There is left basilar plate-like atelectasis. Increased markings are seen in the bases bilaterally consistent with subsegmental atelectasis. Electronically Signed by Ponce Higgins MD 12/05/2018 08:12 A
[2018-12-05] MEDS: CHLORHEXIDINE GLUCONATE 0.12 % 15ML UDC (PERIDEX ORAL RINSE) MT SCH ×2 (08:28→20:45)
[2018-12-05] MEDS: PANTOPRAZOLE 40MG INJ (PROTONIX) (C9113) IV SCH (08:28)
[2018-12-05] MEDS: BISOPROLOL FUM 2.5 MG PER 1/2TAB PO SCH (08:29)
--- NOTE | 2018-12-05 09:24 | CCN ---
DATE: 12/05/2018 Start Time: 0805 hours Stop Time: 0842 hours I again attended Constance Zavala here in the intensive care unit. Patient has been examined, chart reviewed. She remains intubated, sedated, mechanically ventilated. Maximum temperature (T max) overnight 97.6, heart rate generally in the 70s to 80s with a sinus mechanism. Blood pressure 108 to 130, respiratory rate at least 16 to the low 20s. Intake and output midnight to midnight: 1240 mL in with 4900 mL out. Most recent laboratories show a white blood cell count of 13.2, hemoglobin 12.0, platelet count 367,000, 83% segmented neutrophils, no bands. Sodium 140, potassium of 3.6, chloride 93, CO2 of 42, BUN 19, creatinine is 0.61, glucose 277, phosphorus 5.4. LFTs improved. Alkaline phosphatase only minimally elevated at 129. Albumin at 3. Blood gas this morning done on a PRVC rate of 16, tidal volume 420, PEEP of 5, FiO2 of 40%, has a pH of 7.471, pCo2 of 59.5, pO2 of 83.3. Chest x-ray shows tubes in good position, a little less in the way of vascular markings today. On exam, she is sedate and comfortable. She is synchronous with the ventilator. She occasionally does over breathe it. Pupils react. Sclerae are clear. She is mildly Cushingoid in appearance. Trachea is in the midline. Chest: Clear today anteriorly. There is only minimal opening crackles at the bases but no wheeze. No other adventitious breath sounds are identified. Cardiac Exam: Regular with no gallop. Peripheral pulses are palpable. Edema persists, but it is only 1+ today. There is no obvious murmur. Abdomen has some bowel sounds, although they are diminished. Abdomen, however, is soft, nontender and no rebound. Extremities: Without cyanosis or clubbing. Neurological: She is sedate but moves all extremities when sedation lightened. She does respond appropriately to questioning. The most pressing problems requiring my immediate presence at the bedside: 1. Acute on chronic respiratory failure, both hypoxemic and hypercapnic. 2. Cor pulmonale. 3. Obstructive sleep apnea (SUYAPA) with noncompliance. 4. Diabetes mellitus. 5. Longstanding previous tobacco abuse. 6. Chronic steroids. At this point, will continue to wean her steroids. She is diuresing nicely. Her BUN is only up mildly, but no bump really in her creatinine and will continue as tolerated. We will change her to a standard mode of ventilation in hopes of facilitating weaning, hopefully in the next 24-48 hours. I will begin enteral feeds today. She remains on ulcer and deep vein thrombosis (DVT) prophylaxis. At this point, I still do not see any role for adding antimicrobials. Overall she remains critically ill. Long-term prognosis is poor regarding repeat hospitalizations, especially given her recent course over the last several months. I will speak with her again regarding intubation wishes once she is able to be extubated. We will proceed as outlined above. She remains critically ill. I left the bedside at 0842 hours. 37 minutes of critical care time at the bedside not including procedures.
[2018-12-05 10:03] LABS: ABG HCO3 42.6 MEQ/L (22.0-26.0); ABG PARTIAL PRESSURE O2 90.8 mmHg (75.0-100.0); ABG STANDARD HCO3 39.9 MEQ/L (22.0-26.0); ABG TOTAL CO2 44.5 MEQ/L (23.0-31.0); ABG pH (ARTERIAL) 7.461 UNITS (7.350-7.450)
[2018-12-05 10:12] LABS: ABG PARTIAL PRESSURE CO2 61.1 mmHg (35.0-45.0)
[2018-12-06] VITALS (20 sets, daily range): BP systolic 113–166; BP diastolic 56–88
[2018-12-06] MEDS: HumaLOG INSULIN (NovoLOG) PER UNIT SC SCH ×4 (00:17→17:27)
[2018-12-06] MEDS: IPRATROPIUM 0.5MG/ALBUTEROL 2.5MG INH SOL UD 3ML (DUONEB)(J7620) NEB SCH ×7 (00:38→23:38)
[2018-12-06] MEDS: PROPOFOL 1,000 MG in APPROPRIATE DILUENT 1 EA IV SCH ×4 (00:48→08:21)
[2018-12-06] MEDS: MIDAZOLAM INJ 2 MG/2 ML VIAL (J2250) IV PRN ×6 (01:21→08:20)
[2018-12-06 05:06] LABS: BASO % 0.2 % (0.0-1.0); HEMATOCRIT 36.5 % (36.0-47.0); HEMOGLOBIN 11.6 g/dl (12.0-15.5); LYMPH # 1.7 10^3/uL (1.5-4.5); LYMPH % 12.2 % (24.0-44.0); MEAN CORPUSCULAR HEMOGLOBIN 30.2 pg (27.0-33.0); MEAN CORPUSCULAR HGB CONC 31.8 g/dl (32.0-36.5); MEAN CORPUSCULAR VOLUME 95.1 fl (80.0-96.0); MONO # 1.3 10^3/uL (0.0-0.8); MONO % 9.2 % (0.0-5.0); NEUTROPHILS # 10.5 10^3/uL (1.8-7.7); NEUTROPHILS % 77.2 % (36.0-66.0); PLATELET COUNT, AUTOMATED 373 10^3/uL (150-450); RED BLOOD COUNT 3.84 10^6/uL (4.00-5.40); WHITE BLOOD COUNT 13.7 10^3/uL (4.0-10.0)
[2018-12-06] MEDS: FUROSEMIDE 40 MG/4 ML VIAL (J1940) IV SCH (05:36)
[2018-12-06] MEDS: methylPREDNISolone INJ 40 MG/1 ML VIAL (J2920) IV SCH ×2 (05:37→17:27)
[2018-12-06] MEDS: HEPARIN SOD (PORCINE) 5000 UNITS/ML VIAL SC SCH ×3 (05:37→20:13)
[2018-12-06] MEDS: LEVOTHYROXINE 25MCG TABLET (0.025MG) PO SCH (05:37)
[2018-12-06 05:54] LABS: ABG BASE EXCESS 20.9 (-2.0-2.0); ABG HCO3 47.9 MEQ/L (22.0-26.0); ABG O2 SATURATION 94.7 % (95.0-99.0); ABG STANDARD HCO3 45.2 MEQ/L (22.0-26.0); ABG TOTAL CO2 49.9 MEQ/L (23.0-31.0); ABG pH (ARTERIAL) 7.484 UNITS (7.350-7.450)
[2018-12-06 06:00] LABS: ABG PARTIAL PRESSURE CO2 65.2 mmHg (35.0-45.0)
[2018-12-06] MEDS: MORPHINE 4 MG/ML 1ML VIAL/SYRINGE (J2270) IV PRN (06:12)
--- NOTE | 2018-12-06 07:52 | REP ---
Portable chest, 06:50 a.m., single AP view with the patient semi upright: Comparison is 12/05/2018. There is bibasilar atelectasis, not significantly changed. The lung cherry otherwise clear. Cardiac size is borderline enlarged, unchanged. The wesly, mediastinum, and skeletal structures are unremarkable. There is an endotracheal tube with the tip at the level of the aortic arch in satisfactory location, unchanged. Impression: No significant interval change. Electronically Signed by Brigido Hinton MD 12/06/2018 07:44 A
[2018-12-06] MEDS: CHLORHEXIDINE GLUCONATE 0.12 % 15ML UDC (PERIDEX ORAL RINSE) MT SCH (08:19)
[2018-12-06] MEDS: BISOPROLOL FUM 2.5 MG PER 1/2TAB PO SCH (08:20)
[2018-12-06] MEDS: PANTOPRAZOLE 40MG INJ (PROTONIX) (C9113) IV SCH (08:20)
[2018-12-06 08:56] LABS: ALBUMIN 2.9 GM/DL (3.2-5.2); ALT/SGPT 52 U/L (12-78); BILIRUBIN,TOTAL 0.3 MG/DL (0.2-1.0); BLOOD UREA NITROGEN 27 MG/DL (7-18); CALCIUM LEVEL 8.8 MG/DL (8.8-10.2); CARBON DIOXIDE LEVEL 49 MEQ/L (21-32); CHLORIDE LEVEL 88 MEQ/L (98-107); CHOLESTEROL LEVEL 164 MG/DL (< 200); CPK CREATINE PHOSPHOKINASE 16 U/L (26-192); CREATININE FOR GFR 0.57 MG/DL (0.55-1.30); GLOMERULAR FILTRATION RATE > 60.0 (>45); GLUCOSE, FASTING 224 MG/DL (70-100); LDH LACTATE DEHYDROGENASE 207 U/L (84-246); PHOSPHORUS LEVEL 4.5 MG/DL (2.5-4.9); POTASSIUM SERUM 3.2 MEQ/L (3.5-5.1); SODIUM LEVEL 139 MEQ/L (136-145); TOTAL PROTEIN 6.5 GM/DL (6.4-8.2); TRIGLYCERIDES LEVEL 535 MG/DL (<150)
[2018-12-06] MEDS ORDERED: POTASSIUM CHLORIDE 10% LIQ 20 MEQ/15 ML UDC PO ONE (10:00)
--- NOTE | 2018-12-06 10:18 | CCN ---
DATE: 12/06/2018 START TIME: 0900 hours STOP TIME: 0937 hours I again attended Constance Zavala here in the intensive care unit. Patient has been examined and chart reviewed. We have widened her sedation. She follows commands as appropriate, and today will be extubated. Maximum temperature (Tmax) overnight 98.2. Blood pressure 113-130s. Heart rate generally in the 70s with a sinus mechanism. Respiratory rate generally teens to low 20s without accessory muscle use. Intake and output 2031 mL in with 3050 mL out. Most recent laboratories show a white blood cell count of 13.7, hemoglobin 11.6, platelet count 373,000, 70% segmented neutrophils, no bands. Sodium 139, potassium of 3.2, chloride 98, CO2 of 49, BUN 27, creatinine 0.57, glucose 224. Blood gas done this morning on a SIMV of 10, tidal volume 420, PEEP of 5, pressure support of 12, and FiO2 of 40% has a pH of 7.484, pCo2 of 65.2, pO2 of 77. Chest x-ray shows tubes in good position. Some subsegmental plaquelike basilar atelectasis but nothing acute. Exam shows her to be a sedate, ill appearing female, in no obvious distress. Vital signs have been reviewed. Skin: Normal turgor, no rashes. HEENT otherwise generally normocephalic, atraumatic. Lines and tubes in good position. Trachea is in the midline. Chest diminished but symmetric expansion. Lung cherry are clear without any wheeze, rhonchus, crackles, or rubs today. Cardiac exam is regular. No gallop. Peripheral pulses are palpable. No edema today. Abdomen obese, soft with active bowel sounds. No convincing organomegaly or masses. Extremities without cyanosis or clubbing. Neurologically, easily arousable and follows commands. PROBLEM LIST: 1. Acute on chronic hypercapnic respiratory failure. 2. Advanced obstructive lung disease. 3. Longstanding previous tobacco abuse. 4. Metabolic alkalosis likely secondary to diuresis. At this point, we will proceed with endotracheal extubation and extubate her right to noninvasive. She does have significant sleep apnea as well, and has been noncompliant. In the outpatient setting, we were working to try to get her device back but she has not stayed out of the hospital long enough to get back to the lab. We will hold off of further diuresis in view of the above. We will replete her potassium. Overall, her long-term prognosis is guarded at best in view of her longstanding issues with noncompliance. We will proceed as outlined above. My hopes is that she will remain extubated. I left the bedside at 0937 hours. 37 minutes of critical care time at the bedside not including procedures. ISMAEL
[2018-12-06] MEDS: hydrOXYzine 25 MG TAB PO PRN ×2 (13:08→20:12)
[2018-12-06] MEDS ORDERED: ACETAMINOPHEN TAB 650MG DOSE (2X325MG) PO PRN (14:30)
--- NOTE | 2018-12-06 16:22 | ECGEPIP ---
[facility] - ED Test Date: 2018-12-03 Pat Name: MIGUEL NAQVI Department: Room: [place] [address] Gender: Female Channel Manager: JOSE : [id number] Requested By: MAYELA Culp Order Number: [id number] Reading MD: Kyle Boyce Measurements Intervals [place] Rate: 69 P: 77 IN: 137 QRS: 62 QRSD: 95 T: 81 QT: 337 QTc: 363 Interpretive Statements SINUS RHYTHM WITH SINUS ARRHYTHMIA Delayed anterior R wave progression Similar to tracing done 12-01-18 Electronically Signed on 12-06-2018 16:22:10 EDT by Kyle Boyce
[2018-12-07] VITALS (7 sets, daily range): BP systolic 122–149; BP diastolic 59–78
[2018-12-07] MEDS: HumaLOG INSULIN (NovoLOG) PER UNIT SC SCH ×5 (00:06→23:54)
[2018-12-07] MEDS: IPRATROPIUM 0.5MG/ALBUTEROL 2.5MG INH SOL UD 3ML (DUONEB)(J7620) NEB SCH ×5 (03:08→21:37)
[2018-12-07] MEDS: LEVOTHYROXINE 25MCG TABLET (0.025MG) PO SCH (05:33)
[2018-12-07] MEDS: methylPREDNISolone INJ 40 MG/1 ML VIAL (J2920) IV SCH (05:34)
[2018-12-07] MEDS: HEPARIN SOD (PORCINE) 5000 UNITS/ML VIAL SC SCH ×3 (05:37→21:56)
[2018-12-07 06:31] LABS: ABG BASE EXCESS 14.9 (-2.0-2.0); ABG HCO3 41.9 MEQ/L (22.0-26.0); ABG PARTIAL PRESSURE O2 69.3 mmHg (75.0-100.0); ABG STANDARD HCO3 38.6 MEQ/L (22.0-26.0); ABG TOTAL CO2 43.9 MEQ/L (23.0-31.0); ABG pH (ARTERIAL) 7.436 UNITS (7.350-7.450)
[2018-12-07 06:35] LABS: ABG PARTIAL PRESSURE CO2 63.7 mmHg (35.0-45.0)
--- NOTE | 2018-12-07 07:12 | IPNPDOC ---
Text Note Date of Service The patient was seen on 12/07/18. NOTE Pt was seen and examined at bedside. s/p extubation 12/07/18. Pt is awake alert and oriented. She is sitting in bed comfortable. Able to clear respiratory secretions. She is receiving bronchodilator nebulized treatment. She is not in respiratory distress. VS and oxygenation within acceptable range. Great negative balance. Denies any chest pain, palpitations or headache. PHE General:AAOx3 NAD HEENT: EOMI FAUSTINO neck supple no JVD no LAP no icterus CVS: S1 S2 regular rate and rhythm Lung: diminished breath sound at bases scattered bilat wheezing Abdomen: soft NT ND Ext:no cyanosis no edema no tenderness Neuro: sensory motor grossly intact Psych: mood affect appropriate Vital Signs Date Time Temp Pulse Resp B/P (MAP) Pulse Ox O2 Delivery O2 Flow Rate FiO2 12/07/18 04:00 98.0 82 20 140/71 (94) 96 40 12/07/18 04:00 40 12/07/18 03:09 35 12/07/18 00:30 18 12/07/18 00:00 97.8 75 20 124/59 (80) 96 40 12/07/18 00:00 40 12/07/18 00:00 18 12/06/18 20:00 40 12/06/18 20:00 97.8 78 20 166/88 (114) 96 40 12/06/18 19:36 35 12/06/18 19:34 73 20 12/06/18 18:00 75 124/69 (87) 91 40 12/06/18 16:00 97.2 77 24 126/62 (83) 96 40 12/06/18 15:33 75 12/06/18 14:00 67 121/66 (84) 96 40 12/06/18 12:00 97.7 77 22 135/62 (86) 94 40 12/06/18 11:16 75 16 12/06/18 11:15 35 12/06/18 11:00 77 126/66 (86) 96 40 12/06/18 10:00 82 139/74 (95) 94 40 12/06/18 09:50 40 12/06/18 09:00 84 125/65 (85) 91 40 12/06/18 08:20 89 114/80 12/06/18 08:00 40 12/06/18 08:00 97.2 87 26 114/80 (91) 92 40 12/06/18 08:00 40 12/06/18 07:15 81 13 94 40 Intake & Output 12/07/18 06:00 Intake Total 1380 ml Output Total 2925 ml Balance -1545 ml Laboratory Tests 12/06/18 11:55: Bedside Glucose (Misc Panel) 277H 12/06/18 17:16: Bedside Glucose (Misc Panel) 268H 12/07/18 00:03: Bedside Glucose (Misc Panel) 293H 12/07/18 05:32: Bedside Glucose (Misc Panel) 198H 12/07/18 06:08: Blood Gas Bicarbonate Standard 38.6H, Arterial Blood pH 7.436, Arterial Blood Partial Pressure CO2 63.7*H, Arterial Blood Partial Pressure O2 69.3L, Arterial Blood Total CO2 43.9H, Arterial Blood HCO3 41.9H, Arterial Blood Base Excess 14.9H, Arterial Blood Oxygen Saturation 93.0L Current Medications Medications (Trade) Dose Ordered Sig/Chet Route PRN Reason Start Time Stop Time Status Last Admin Dose Admin Acetaminophen (Tylenol Tab) 650 mg Q4HP PRN PO PAIN OR FEVER 12/06/18 14:30 12/06/18 15:06 650 MG Acetaminophen/ Hydrocodone Bitart (Anexsia, [place] 7.5mg/325mg) 1 tab BID PRN PO PAIN 12/07/18 00:00 12/07/18 00:00 1 TAB Albuterol/ Ipratropium (Duoneb (Ipr 0.5mg/Alb 2.5mg)) 3 ml RQ4H NEB 12/04/18 00:00 12/07/18 03:08 3 ML Aripiprazole (AbiLIFY) 2.5 mg QHS PO 12/04/18 21:00 12/06/18 20:12 2.5 MG Bisoprolol Fumarate (Zebeta) 2.5 mg DAILY PO 12/04/18 09:00 12/06/18 08:20 2.5 MG Heparin Sodium (Porcine) (Heparin) 5,000 units Q8H SC 12/04/18 06:00 12/07/18 05:37 5,000 UNITS Hydroxyzine HCl (Atarax) 25 mg TID PRN PO ANXIETY 12/06/18 12:30 12/06/18 20:12 25 MG Insulin Human Lispro (HumaLOG INSULIN) SEE PROTOCOL TABLE Q6H SC 12/04/18 00:00 12/07/18 05:54 4 UNITS Levothyroxine Sodium (Synthroid) 25 mcg DAILY@06 PO 12/04/18 06:00 12/07/18 05:33 25 MCG Methylprednisolone (SOLU medrol) 40 mg Q12H IV 12/05/18 18:00 12/07/18 05:34 40 MG Pantoprazole Sodium (Protonix) 40 mg DAILY IV 12/04/18 09:00 12/06/18 08:20 40 MG A/P 1-Acute on chronic hypoxic and hypercarbic respiratory failure S/P intubation and Extubation 12/06/18 Cont bronchodilators prn and scheduled Cont Inhaled CS Encourage incentive spirometer BiPAP as per supply chain specialist Cont monitor O2 sat maintain O2 88-92 ABG was reviewed electrolytes acceptable, supplement as needed Cont PO steroids 2-SUYAPA pt has appointment for sleep study f/u upon discharge Cont current meds for T2DM, Hypothyroidism, Mood disorder, Pain DVT Prophylaxis Heparin sc Disposition: likely transfer to PCU today VS,Fishbone, I+O VS, Fishbone, I+O Vital Signs Date Time Temp Pulse Resp B/P (MAP) Pulse Ox O2 Delivery O2 Flow Rate FiO2 12/07/18 04:00 98.0 82 20 140/71 (94) 96 40 12/05/18 17:43 Ventilator 12/03/18 20:05 4.0 I&O- Last 24 Hours up to 6 AM 12/07/18 06:00 Intake Total 1380 ml Output Total 2925 ml Balance -1545 ml BIANCA REGALADO MD Dec 07, 2018 07:12
--- NOTE | 2018-12-07 07:36 | REP ---
Portable chest, 06:50 a.m., single AP view with the patient semi upright: Comparison is 12/06/2018. The endotracheal tube and nasogastric tube have been removed. There is bibasilar atelectasis, unchanged. Lung cherry otherwise clear. Cardiac size is borderline enlarged, unchanged. The wesly, mediastinum, skeletal structures are. Impression: Endotracheal tube and nasogastric tube have been removed. There is no other interval change. Electronically Signed by Brigido Hinton MD 12/07/2018 07:27 A
[2018-12-07 07:38] LABS: BASO % 0.2 % (0.0-1.0); EOS % 0.3 % (0.0-3.0); HEMATOCRIT 38.3 % (36.0-47.0); HEMOGLOBIN 12.1 g/dl (12.0-15.5); LYMPH # 1.5 10^3/uL (1.5-4.5); LYMPH % 11.5 % (24.0-44.0); MEAN CORPUSCULAR HEMOGLOBIN 28.9 pg (27.0-33.0); MEAN CORPUSCULAR HGB CONC 31.6 g/dl (32.0-36.5); MEAN CORPUSCULAR VOLUME 91.4 fl (80.0-96.0); MONO % 7.3 % (0.0-5.0); NEUTROPHILS # 10.2 10^3/uL (1.8-7.7); NEUTROPHILS % 78.2 % (36.0-66.0); PLATELET COUNT, AUTOMATED 361 10^3/uL (150-450); RED BLOOD COUNT 4.19 10^6/uL (4.00-5.40)
[2018-12-07] MEDS ORDERED: KCL 10MEQ/100ML SWI (KRUN) 10 MEQ in APPROPRIATE DILUENT 1 EA IV SCH (08:00)
[2018-12-07 08:12] LABS: ALT/SGPT 40 U/L (12-78); BILIRUBIN,TOTAL 0.5 MG/DL (0.2-1.0); BLOOD UREA NITROGEN 16 MG/DL (7-18); CARBON DIOXIDE LEVEL 43 MEQ/L (21-32); CHLORIDE LEVEL 92 MEQ/L (98-107); CHOLESTEROL LEVEL 179 MG/DL (< 200); CPK CREATINE PHOSPHOKINASE 20 U/L (26-192); GLOMERULAR FILTRATION RATE > 60.0 (>45); GLUCOSE, FASTING 205 MG/DL (70-100); LDH LACTATE DEHYDROGENASE 189 U/L (84-246); PHOSPHORUS LEVEL 2.8 MG/DL (2.5-4.9); POTASSIUM SERUM 3.6 MEQ/L (3.5-5.1); SODIUM LEVEL 137 MEQ/L (136-145); TOTAL PROTEIN 6.9 GM/DL (6.4-8.2); TRIGLYCERIDES LEVEL 520 MG/DL (<150)
[2018-12-07] MEDS ORDERED: FUROSEMIDE 40 MG/4 ML VIAL (J1940) IV SCH (09:00)
[2018-12-07] MEDS: PANTOPRAZOLE 40MG INJ (PROTONIX) (C9113) IV SCH (09:56)
[2018-12-07] MEDS: FUROSEMIDE 40 MG TAB PO SCH (09:57)
[2018-12-07] MEDS: BISOPROLOL FUM 2.5 MG PER 1/2TAB PO SCH (09:57)
[2018-12-07] MEDS: predniSONE 20 MG TAB PO SCH (09:58)
--- NOTE | 2018-12-07 09:58 | IPN ---
DATE OF VISIT: 12/07/2018 PULMONARY AND CRITICAL CARE PROGRESS NOTE: I again attended Constance Zavala here in the intensive care unit. She remains extubated. She was quite comfortable this morning. She has been on and off noninvasive support. Maximum temperature (Tmax) overnight 98, blood pressure 120-140s, heart rate generally in the 60s-80s with a sinus mechanism, respiratory rate generally in the teens without accessory muscle use. Intake and output midnight to midnight 2060 mL in with 2150 mL out. Most recent laboratories show a white blood cell count of 13.0, hemoglobin 10.1, platelet count of 361,000, 70% segmented neutrophils, no bands. Sodium 137, potassium of 3.6, chloride 92, CO2 of 43, BUN 16, and creatinine 0.5. Blood gas this morning done on noninvasive support shows pH 7.436, pCo2 of 60.7, and pO2 of 69.3. Chest x-ray shows minimal atelectasis at the bases but nothing acute. On exam, she is awake, alert, appropriate. States she is comfortable. Pupils react. Sclerae are clear. Trachea is in the midline. Chest diminished but symmetric expansion. Minimal crackles at the bases that clear with deep inspiration. No other focal adventitious breath sounds are identified. Cardiac exam regular with no murmur, gallop, or rub. Peripheral pulses are palpable. No edema. Abdomen mildly obese, soft, with active bowel sounds. No obvious organomegaly or masses. Extremities without cyanosis or clubbing. Neurologically, she is awake, alert, and appropriate. Psychiatric with normal mood and affect. IMPRESSION: 1. Acute on chronic respiratory failure status post intubation, both hypoxic and hypercapnic. 2. Advanced obstructive lung disease. 3. Obstructive sleep apnea syndrome, awaiting re-titration. 4. Longstanding previous tobacco abuse. RECOMMENDATIONS: At this point, she had diuresed just shy of 8 liters. Her electrolytes and her bicarbonate are readjusting with a decline in her rate of diuresis. At this point, we will allow her equilibrate and then change her to oral Lasix probably tomorrow. She has advanced her diet. We will increase her out of bed and activities. We will continue noninvasive support for naps and at bedtime. We will need to reorganize getting her back to the lab for a formal re-titration to get pressure therapy back in the home. She states she is going to remain tobacco free. At this point, there is still high likelihood of decline especially given her issues at home. We will proceed as outlined above. Hopefully, she will be able to be moved out of the intensive care unit today. Further recommendations will be made in the progress record as new information becomes available.
[2018-12-07] MEDS: POTASSIUM CHLORIDE 10 MEQ SR TABLET PO SCH ×2 (10:06→20:12)
[2018-12-07] MEDS: BUDESONIDE 0.5 MG/2 ML INHALATION SUSPENSION INH SCH ×2 (11:58→21:37)
[2018-12-07] MEDS ORDERED: SLF 3 ML SYR IV PRN (14:45)
[2018-12-07] MEDS: ANEXSIA, NORCO 7.5MG/325MG TABLET(HYDROCODONE/APAP) PO PRN ×2 (18:41)
[2018-12-07] MEDS: SLF 3 ML SYR IV SCH (21:55)
[2018-12-08] VITALS (7 sets, daily range): BP systolic 118–164; BP diastolic 57–82
[2018-12-08] MEDS: IPRATROPIUM 0.5MG/ALBUTEROL 2.5MG INH SOL UD 3ML (DUONEB)(J7620) NEB SCH ×7 (03:15→23:50)
[2018-12-08] MEDS: LEVOTHYROXINE 25MCG TABLET (0.025MG) PO SCH (05:00)
[2018-12-08] MEDS: SLF 3 ML SYR IV SCH ×3 (05:01→20:56)
[2018-12-08] MEDS: HEPARIN SOD (PORCINE) 5000 UNITS/ML VIAL SC SCH ×3 (05:01→20:55)
[2018-12-08] MEDS: ANEXSIA, NORCO 7.5MG/325MG TABLET(HYDROCODONE/APAP) PO PRN ×2 (05:01→22:12)
[2018-12-08 05:27] LABS: ABG BASE EXCESS 9.9 (-2.0-2.0); ABG HCO3 36.2 MEQ/L (22.0-26.0); ABG PARTIAL PRESSURE CO2 56.9 mmHg (35.0-45.0); ABG PARTIAL PRESSURE O2 71.7 mmHg (75.0-100.0); ABG STANDARD HCO3 33.6 MEQ/L (22.0-26.0); ABG pH (ARTERIAL) 7.422 UNITS (7.350-7.450)
[2018-12-08 05:56] LABS: BASO # 0.1 10^3/uL (0.0-0.2); BASO % 0.6 % (0.0-1.0); EOS # 0.1 10^3/uL (0.0-0.50); EOS % 0.7 % (0.0-3.0); HEMATOCRIT 38.7 % (36.0-47.0); HEMOGLOBIN 12.1 g/dl (12.0-15.5); LYMPH # 2.4 10^3/uL (1.5-4.5); LYMPH % 18.4 % (24.0-44.0); MEAN CORPUSCULAR HEMOGLOBIN 29.6 pg (27.0-33.0); MEAN CORPUSCULAR HGB CONC 31.3 g/dl (32.0-36.5); MEAN CORPUSCULAR VOLUME 94.6 fl (80.0-96.0); MONO # 1.1 10^3/uL (0.0-0.8); MONO % 8.6 % (0.0-5.0); NEUTROPHILS # 9.1 10^3/uL (1.8-7.7); NEUTROPHILS % 68.8 % (36.0-66.0); PLATELET COUNT, AUTOMATED 322 10^3/uL (150-450); RED BLOOD COUNT 4.09 10^6/uL (4.00-5.40); WHITE BLOOD COUNT 13.2 10^3/uL (4.0-10.0)
[2018-12-08 06:21] LABS: ALBUMIN 2.8 GM/DL (3.2-5.2); ALT/SGPT 32 U/L (12-78); BILIRUBIN,TOTAL 0.4 MG/DL (0.2-1.0); BLOOD UREA NITROGEN 19 MG/DL (7-18); CALCIUM LEVEL 8.4 MG/DL (8.8-10.2); CARBON DIOXIDE LEVEL 35 MEQ/L (21-32); CHLORIDE LEVEL 95 MEQ/L (98-107); CHOLESTEROL LEVEL 177 MG/DL (< 200); CPK CREATINE PHOSPHOKINASE 22 U/L (26-192); CREATININE FOR GFR 0.54 MG/DL (0.55-1.30); GLOMERULAR FILTRATION RATE > 60.0 (>45); GLUCOSE, FASTING 263 MG/DL (70-100); LDH LACTATE DEHYDROGENASE 196 U/L (84-246); PHOSPHORUS LEVEL 2.7 MG/DL (2.5-4.9); POTASSIUM SERUM 3.9 MEQ/L (3.5-5.1); SODIUM LEVEL 135 MEQ/L (136-145); TOTAL PROTEIN 6.5 GM/DL (6.4-8.2); TRIGLYCERIDES LEVEL 551 MG/DL (<150)
[2018-12-08] MEDS: BUDESONIDE 0.5 MG/2 ML INHALATION SUSPENSION INH SCH ×2 (07:11→20:32)
--- NOTE | 2018-12-08 08:48 | REP ---
Portable chest, 07:23 a.m., single AP view the patient upright: Comparison is 12/07/2018. Bibasilar atelectasis is again identified, unchanged. Lung cherry otherwise clear. There is borderline cardiomegaly, unchanged. The wesly, mediastinum, skeletal structures are unremarkable and unchanged. Impression: No interval change. Electronically Signed by Brigido Hinton MD 12/08/2018 08:39 A
[2018-12-08] MEDS: HumaLOG INSULIN (NovoLOG) PER UNIT SC SCH ×4 (09:59→20:55)
[2018-12-08] MEDS: PANTOPRAZOLE 40MG INJ (PROTONIX) (C9113) IV SCH (09:59)
[2018-12-08] MEDS: FUROSEMIDE 40 MG TAB PO SCH (10:00)
[2018-12-08] MEDS: BISOPROLOL FUM 2.5 MG PER 1/2TAB PO SCH (10:00)
[2018-12-08] MEDS: POTASSIUM CHLORIDE 10 MEQ SR TABLET PO SCH ×2 (10:00→20:54)
[2018-12-08] MEDS: predniSONE 20 MG TAB PO SCH (10:01)
--- NOTE | 2018-12-08 10:07 | CCN ---
PULMONARY AND CRITICAL CARE PROGRESS NOTE DATE OF SERVICE: 12/08/2018 I again attended Constance Zavala here in the intensive care unit. She remains extubated. The patient has been examined and chart reviewed. I spoke at length with the primary service. Maximum temperature (Tmax) overnight 98.3, blood pressure 118/40 systolic, heart rate in the 70s, respiratory rate generally in the teens without accessory muscle use. Intake and output (I and O) midnight to midnight 3120 mL in with 5735 mL out. White blood cell count 13.2, hemoglobin 12.1, platelet count 322,000, 68% segmented neutrophils, no bands. Sodium 135, potassium 3.9, chloride 95, CO2 35, BUN 19, creatinine 0.54. Blood gas done this morning on her nighttime bilateral positive airway pressure (BiPAP): pH 7.422, PCO2 of 56.9, pO2 of 71.7. On examination, she is awake, alert, and appropriate. No new complaints. Pupils react. Sclerae are clear. Trachea is in the midline. Chest diminished but symmetric expansion. No focal wheeze, rhonchus, crackles, or rales. Cardiovascular examination: Regular with no murmur, gallop, or rub. Peripheral pulses are palpable. Minimal edema at best. Abdomen: Obese, soft, nontender, with active bowel sounds. No convincing organomegaly or masses. Extremities without cyanosis or clubbing. Neurologically, she is awake, alert, and appropriate. Psychiatric: With normal mood and affect. IMPRESSION: 1. Acute on chronic respiratory failure, both hypoxic and hypercapnic. 2. Advanced obstructive lung disease. 3. Cor. pulmonale. 4. Obstructive sleep apnea syndrome, awaiting retitration. 5. Previous longstanding tobacco abuse. 6. Noninsulin-dependent diabetes mellitus. RECOMMENDATIONS: A very lengthy discussion was had with the patient concerning her presentation. She was home for 48 hours and again had to be vigorously diuresed. Questioning reveals that she is very liberal with fluids at home and has really no idea of how much she is actually taking in. She has been aggressively diuresed every admission and then goes home for several days and comes back in basically volume-overload status. She is tolerating nighttime BiPAP. We need to get her back to the laboratory as soon as she is able to stay out of the hospital to get her retitrated, to get her machine at home. She states she was tobacco-free, and my hope is that that is actually true. We can get her out of the intensive care unit (ICU) into a stepdown unit today. Will continue as outlined above. Steroids are being weaned. I am agreeing with the remainder of her care. Further recommendations will be made in the progress record as new information becomes available.
--- NOTE | 2018-12-08 22:45 | IPNPDOC ---
Text Note Date of Service The patient was seen on 12/08/18. NOTE Pt was seen and examined at bedside. s/p extubation 12/07/18. Pt is in no distress. Pt reports improvement in her breathing. Tolerating BiPAP at night time. Continues with great negative balance. Pulmonary recommendations appreciated. PHE General:AAOx3 NAD HEENT: EOMI FAUSTINO neck supple no JVD no LAP no icterus CVS: S1 S2 regular rate and rhythm Lung: diminished breath sound at bases scattered bilat wheezing Abdomen: soft NT ND Ext:no cyanosis no edema no tenderness Neuro: sensory motor grossly intact Psych: mood affect appropriate Vital Signs Date Time Temp Pulse Resp B/P (MAP) Pulse Ox O2 Delivery O2 Flow Rate FiO2 12/08/18 22:12 20 12/08/18 20:00 97.0 84 20 164/82 (109) 96 3.0 12/08/18 19:46 3.0 12/08/18 16:00 3.0 12/08/18 15:10 96.9 79 20 130/70 (90) 92 3.0 12/08/18 11:37 3.0 12/08/18 11:32 97.2 80 21 131/74 (93) 93 3.0 12/08/18 10:00 76 144/76 12/08/18 08:00 97.4 76 20 144/76 (98) 93 3.0 12/08/18 08:00 3.0 12/08/18 05:31 22 95 4.0 12/08/18 05:01 20 92 4.0 12/08/18 04:00 98.3 72 20 134/64 (87) 92 4.0 12/08/18 04:00 4.0 12/08/18 00:00 97.5 73 18 118/57 (77) 96 4.0 12/08/18 00:00 4.0 Intake & Output 12/08/18 06:00 Intake Total 3720 ml Output Total 4785 ml Balance -1065 ml Laboratory Tests 12/07/18 23:46: Bedside Glucose (Misc Panel) 335H 12/08/18 05:08: Blood Gas Bicarbonate Standard 33.6H, Arterial Blood pH 7.422, Arterial Blood Partial Pressure CO2 56.9H, Arterial Blood Partial Pressure O2 71.7L, Arterial Blood Total CO2 38.0H, Arterial Blood HCO3 36.2H, Arterial Blood Base Excess 9.9H, Arterial Blood Oxygen Saturation 93.0L 12/08/18 05:45: White Blood Count 13.2H, Red Blood Count 4.09, Hemoglobin 12.1, Hematocrit 38.7, Mean Corpuscular Volume 94.6, Mean Corpuscular Hemoglobin 29.6, Mean Corpuscular Hemoglobin Concent 31.3L, Red Cell Distribution Width 14.0, Platelet Count 322, Neutrophils (%) (Auto) 68.8H, Lymphocytes (%) (Auto) 18.4L, Monocytes (%) (Auto) 8.6H, Eosinophils (%) (Auto) 0.7, Basophils (%) (Auto) 0.6, Neutrophils # (Auto) 9.1H, Lymphocytes # (Auto) 2.4, Monocytes # (Auto) 1.1H, Eosinophils # (Auto) 0.1, Basophils # (Auto) 0.1, Immature Granulocyte % (Auto) 2.9, Nucleated Red Blood Cells % (auto) 0.0, Blood Urea Nitrogen 19H, Creatinine 0.54L, Sodium Level 135L, Potassium Level 3.9, Chloride Level 95L, Carbon Dioxide Level 35H, Calcium Level 8.4L, Phosphorus Level 2.7, Aspartate Amino Transf (AST/SGOT) 9, Alanine Aminotransferase (ALT/SGPT) 32, Lactate Dehydrogenase 196, Total Creatine Kinase 22L, Alkaline Phosphatase 116, Total Bilirubin 0.4, Triglycerides Level 551H, Cholesterol Level 177, Total Protein 6.5, Albumin 2.8L, Anion Gap 5L, Glomerular Filtration Rate > 60.0, Fasting Glucose 263H, Albumin/Globulin Ratio 0.76L 12/08/18 11:28: Bedside Glucose (Misc Panel) 230H 12/08/18 11:51: Methicillin-Resist S.aureus DNA PCR NOT DETECTED 12/08/18 16:32: Bedside Glucose (Misc Panel) 401H 12/08/18 20:47: Bedside Glucose (Misc Panel) 294H Microbiology 12/03/18 Blood Culture - Final, Complete NO GROWTH AFTER 5 DAYS 12/03/18 Blood Culture - Final, Complete NO GROWTH AFTER 5 DAYS Current Medications Medications (Trade) Dose Ordered Sig/Chet Route PRN Reason Start Time Stop Time Status Last Admin Dose Admin Acetaminophen (Tylenol Tab) 650 mg Q4HP PRN PO PAIN OR FEVER 12/06/18 14:30 12/06/18 15:06 650 MG Acetaminophen/ Hydrocodone Bitart (Anexsia, [place] 7.5mg/325mg) 1 tab BID PRN PO PAIN 12/07/18 00:00 12/08/18 22:12 1 TAB Albuterol/ Ipratropium (Duoneb (Ipr 0.5mg/Alb 2.5mg)) 3 ml RQ4H NEB 12/04/18 00:00 12/08/18 20:32 3 ML Aripiprazole (AbiLIFY) 2.5 mg QHS PO 12/04/18 21:00 12/08/18 20:53 2.5 MG Bisoprolol Fumarate (Zebeta) 2.5 mg DAILY PO 12/04/18 09:00 12/08/18 10:00 2.5 MG Budesonide (Pulmicort) 0.5 mg RBID INH 12/07/18 10:30 12/08/18 20:32 0.5 MG Furosemide (Lasix) 40 mg DAILY PO 12/07/18 09:00 12/08/18 10:00 40 MG Heparin Sodium (Porcine) (Heparin) 5,000 units Q8H SC 12/04/18 06:00 12/08/18 20:55 5,000 UNITS Hydroxyzine HCl (Atarax) 25 mg TID PRN PO ANXIETY 12/06/18 12:30 12/06/18 20:12 25 MG Insulin Human Lispro (HumaLOG INSULIN) See Protocol Table QHS SC 12/07/18 21:00 12/08/18 20:55 2 UNITS Levothyroxine Sodium (Synthroid) 25 mcg DAILY@06 PO 12/04/18 06:00 12/08/18 05:00 25 MCG Pantoprazole Sodium (Protonix) 40 mg DAILY IV 12/04/18 09:00 12/08/18 09:59 40 MG Potassium Chloride (Micro-K Extencaps) 40 meq BID PO 12/07/18 09:00 12/08/18 20:54 40 MEQ Prednisone (Deltasone) 40 mg DAILY PO 12/07/18 09:00 12/08/18 10:01 40 MG Sodium Chloride (Saline Lock Flush) 2 ml SLF IV 12/07/18 22:00 12/08/18 20:56 2 ML A/P 1-Acute on chronic hypoxic and hypercarbic respiratory failure S/P intubation and Extubation 12/07/18 Cont bronchodilators prn and scheduled Cont Inhaled CS Encourage incentive spirometer BiPAP as per customer specialist Cont monitor O2 sat maintain O2 88-92 ABG was reviewed electrolytes acceptable, supplement as needed Cont PO steroids 2-SUYAPA pt has appointment for sleep study f/u upon discharge 3-Pulmonary HTN 4-COPD stage IV 5-Hx of nicotine dependence Cont current meds for T2DM, Hypothyroidism, Mood disorder, Pain DVT Prophylaxis Heparin sc Disposition: likely discharge in AM VS,Fishbone, I+O VS, Fishbone, I+O Laboratory Tests 12/08/18 05:45 Red Blood Count 4.09, Mean Corpuscular Volume 94.6, Mean Corpuscular Hemoglobin 29.6, Mean Corpuscular Hemoglobin Concent 31.3 L, Red Cell Distribution Width 14.0, Neutrophils (%) (Auto) 68.8 H, Lymphocytes (%) (Auto) 18.4 L, Monocytes (%) (Auto) 8.6 H, Eosinophils (%) (Auto) 0.7, Basophils (%) (Auto) 0.6, Neutrophils # (Auto) 9.1 H, Lymphocytes # (Auto) 2.4, Monocytes # (Auto) 1.1 H, Eosinophils # (Auto) 0.1, Basophils # (Auto) 0.1, Calcium Level 8.4 L, Phosphorus Level 2.7, Aspartate Amino Transf (AST/SGOT) 9, Alanine Aminotransferase (ALT/SGPT) 32, Lactate Dehydrogenase 196, Total Creatine Kinase 22 L, Alkaline Phosphatase 116, Total Bilirubin 0.4, Triglycerides Level 551 H, Cholesterol Level 177, Total Protein 6.5, Albumin 2.8 L Vital Signs Date Time Temp Pulse Resp B/P (MAP) Pulse Ox O2 Delivery O2 Flow Rate FiO2 12/08/18 22:12 20 12/08/18 20:00 97.0 84 164/82 (109) 96 3.0 12/07/18 08:00 35 12/05/18 17:43 Ventilator I&O- Last 24 Hours up to 6 AM 12/08/18 06:00 Intake Total 3720 ml Output Total 4785 ml Balance -1065 ml BIANCA REGALADO MD Dec 08, 2018 22:45
[2018-12-09] MEDS: IPRATROPIUM 0.5MG/ALBUTEROL 2.5MG INH SOL UD 3ML (DUONEB)(J7620) NEB SCH ×2 (03:42→07:37)
[2018-12-09 04:00] VITALS: BP 137/65
[2018-12-09] MEDS: LEVOTHYROXINE 25MCG TABLET (0.025MG) PO SCH (05:50)
[2018-12-09] MEDS: HEPARIN SOD (PORCINE) 5000 UNITS/ML VIAL SC SCH (05:51)
[2018-12-09] MEDS: SLF 3 ML SYR IV SCH (05:51)
[2018-12-09] MEDS: BUDESONIDE 0.5 MG/2 ML INHALATION SUSPENSION INH SCH (07:37)
--- NOTE | 2018-12-09 07:45 | REP ---
Portable chest, 07:03 a.m., single AP view with the patient semi upright: Comparison is 12/08/2018. There is bibasilar atelectasis, unchanged. The lung cherry otherwise clear. The wesly, mediastinum, skeletal structures are unremarkable. Impression: There is no interval change. Electronically Signed by Brigido Hinton MD 12/09/2018 07:37 A
[2018-12-09 08:00] VITALS: BP 137/64
[2018-12-09] MEDS: PANTOPRAZOLE 40MG INJ (PROTONIX) (C9113) IV SCH (08:09)
[2018-12-09] MEDS: POTASSIUM CHLORIDE 10 MEQ SR TABLET PO SCH (08:09)
[2018-12-09] MEDS: HumaLOG INSULIN (NovoLOG) PER UNIT SC SCH (08:09)
[2018-12-09] MEDS: predniSONE 20 MG TAB PO SCH (08:10)
[2018-12-09] MEDS: FUROSEMIDE 40 MG TAB PO SCH (08:10)
[2018-12-09 08:14] VITALS: BP 137/65
[2018-12-09] MEDS: BISOPROLOL FUM 2.5 MG PER 1/2TAB PO SCH (08:14)
[2018-12-09] MEDS: ANEXSIA, NORCO 7.5MG/325MG TABLET(HYDROCODONE/APAP) PO PRN (09:28)
--- NOTE | 2018-12-09 11:10 | DS.PDOC ---
Discharge Summary General Date of Admission Dec 03, 2018 at 21:13 Date of Discharge 12/09/18 Discharge Summary PROCEDURES PERFORMED DURING STAY: ADMITTING DIAGNOSES: 1-Acute on chronic hypoxic and hypercarbic respiratory failure 2-End stage COPD 3-SUYAPA 4-volume overload 5. right-sided heart failure 6. Diabetes mellitus, non-insulin requiring 7. Known depressive disorder 8.Noncompliance 10.nicotine dependence 11. Pulmonary HTN DISCHARGE DIAGNOSES: same COMPLICATIONS/CHIEF COMPLAINT: Acute Chronic Respiratory Failure W Hypoxia. HISTORY OF PRESENT ILLNESS: This is a 62-year-old female, well known to me from the outpatient setting with essentially end-stage obstructive lung disease with chronic hypoxemic and hypercapnic respiratory failure, diabetes mellitus and, unfortunately, continued tobacco abuse. She is known to have right-sided heart failure, fluid retention. She was just discharged from the hospital 11/30/2018. This is her 12th hospital admission since early July. She continues to smoke. At the time of her last discharge on 11/30/2018, she was scheduled to return to the sleep lab to return to continuous positive airway pressure (CPAP) therapy. Apparently since being at home, she is more short of breath. She presented today essentially unresponsive by emergency medical services (EMS) and was intubated by the ER. On arrival, blood gas was drawn, which showed a pH of 7.249, pCO2 of 90.6, pO2 of 257 on a non-rebreather, and she was, therefore, intubated. Chest x-ray shows no obvious infiltrate. Endotracheal tube is in good position. HOSPITAL COURSE: Pt was admitted in ICU with above presentation. Pt was intubated initially on sedation, passed parameters for extubation and was successfully extubated later. Pt was managed in regular floor subsequently with nebulized bronchodilators and IV steroids. No antibiotic administer due to no evidence of infectious process. Pt was on BiPAP at night time for noninvasive ventilation support. Pt continued with clinical improvement and pleasant mood. Pt discharged home, to follow for sleep study and further optimization of her COPD and SUYAPA. DISCHARGE MEDICATIONS: Please see below. ALLERGIES: Please see below. PHE General:AAOx3 NAD HEENT: EOMI FAUSTINO neck supple no JVD no LAP no icterus CVS: S1 S2 regular rate and rhythm Lung: diminished breath sound at bases scattered bilat wheezing Abdomen: soft NT ND Ext:no cyanosis no edema no tenderness Neuro: sensory motor grossly intact Psych: mood affect appropriate LABORATORY DATA: Please see below. IMAGING: PROGNOSIS:Guarded ACTIVITY: [As tolerated]. DIET:Diabetic DISCHARGE PLAN: DISPOSITION: Home ITEMS TO FOLLOWUP ON ON OUTPATIENT: 1. Sleep Study as per schedule DISCHARGE CONDITION: clinically optimized to dc home TIME SPENT ON DISCHARGE: 40 minutes. Vital Signs/I&Os Vital Signs Date Time Temp Pulse Resp B/P (MAP) Pulse Ox O2 Delivery O2 Flow Rate FiO2 12/09/18 09:58 20 3.0 12/09/18 08:14 63 137/65 12/09/18 08:00 96.9 93 12/07/18 08:00 35 12/05/18 17:43 Ventilator I&O- Last 24 Hours up to 6 AM 12/09/18 06:00 Intake Total 1910 ml Output Total 3850 ml Balance -1940 ml Laboratory Data Labs 24H Laboratory Tests 2 12/08/18 11:28: Bedside Glucose (Misc Panel) 230H 12/08/18 11:51: Methicillin-Resist S.aureus DNA PCR NOT DETECTED 12/08/18 16:32: Bedside Glucose (Misc Panel) 401H 12/08/18 20:47: Bedside Glucose (Misc Panel) 294H 12/09/18 07:33: Bedside Glucose (Misc Panel) 200H FSBS Laboratory Tests Test 12/08/18 11:28 12/08/18 16:32 12/08/18 20:47 12/09/18 07:33 Range/Units Bedside Glucose (Misc Panel) 230 401 294 200 80-115 MG/DL Microbiology Microbiology 12/03/18 Blood Culture - Final, Complete NO GROWTH AFTER 5 DAYS 12/03/18 Blood Culture - Final, Complete NO GROWTH AFTER 5 DAYS Discharge Medications Scheduled Aripiprazole (Abilify) 5 Mg Tablet, 2.5 MG PO QHS, (Reported) Aspirin (Aspirin EC) 81 Mg Tabec, 81 MG PO DAILY, (Reported) Atorvastatin Calcium (Lipitor) 80 Mg Tab, 80 MG PO QHS, (Reported) Bisoprolol Fumarate (Bisoprolol Fumarate) 5 Mg Tab, 2.5 MG PO DAILY, (Reported) Dapagliflozin Propanediol (Farxiga) 10 Mg Tablet, 10 MG PO DAILY, (Reported) Doxycycline Hyclate (Doxycycline Hyclate) 100 Mg Capsule, 100 MG PO BID, (Reported) FILLED 11/30/2018 Ergocalciferol (Vitamin D2) (Drisdol) 50,000 Unit Cap, 50,000 UNIT PO 1XWK, (Reported) [place] Fluoxetine Hcl (Fluoxetine HCl) 20 Mg Capsule, 20 MG PO DAILY, (Reported) Fluticasone Propion/Salmeterol (Advair Hfa 230-21 Mcg Inhaler) 12 Gm Hfa.aer.ad, 2 PUFF INH BID, (Reported) Fluticasone Propionate (Flonase Allergy Relief) 50 Mcg/Act Spr, 1 SPRAY NA DAILY, (Reported) Gabapentin (Gabapentin) 800 Mg Tab, 800 MG PO TID, (Reported) Levothyroxine Sodium (Levoxyl) 25 Mcg Tab, 25 MCG PO DAILY, (Reported) Lisinopril (Lisinopril) 2.5 Mg Tablet, 2.5 MG PO DAILY, (Reported) Metformin HCl (Metformin HCl) 1,000 Mg Tab, 1,000 MG PO BID, (Reported) Nystatin (Nystatin Powder) 15 Gm Powder, 1 DOSE TOP QHS, (Reported) USES UNDER BREASTS Pantoprazole Sodium (Pantoprazole Sodium) 40 Mg Tab, 40 MG PO DAILY, (Reported) Prednisone (Prednisone) 5 Mg Tablet, 5 MG PO DAILY, (Reported) Prochlorperazine Maleate (Prochlorperazine Maleate) 10 Mg Tablet, 10 MG PO DAILY, (Reported) Sertraline Hcl (Zoloft) 100 Mg Tablet, 100 MG PO DAILY, (Reported) Sitagliptin Phosphate (Januvia) 100 Mg Tablet, 100 MG PO QPM, (Reported) Tiotropium [place] Monohydrate (Spiriva) 18 Mcg Cap.w.dev, 1 INHALATION INH DAILY, (Reported) Varenicline (Chantix) 1 Mg Tablet, 1 MG PO DAILY, (Reported) Scheduled PRN Albuterol Sulfate (Ventolin Hfa) 108 Mcg/Act Aer, 2 PUFFS INH Q4H PRN for SHORTNESS OF BREATH, (Reported) Hydrocodone/Acetaminophen ([place] 7.5-325 Tablet) 1 Each Tablet, 1 TAB PO BID PRN for PAIN, (Reported) Hydroxyzine Pamoate (Hydroxyzine Pamoate) 25 Mg Capsule, 25 MG PO TID PRN for ANXIETY, (Reported) Ipratropium/Albuterol Sulfate (Iprat-Albut 0.5-3(2.5) mg/3 ml) 3 Ml Ampul.neb, 1 INHALATION IN QID PRN for SHORTNESS OF BREATH, (Reported) Menthol (Bengay) 5% Gel..gram., 1 DOSE TOP QID PRN for PAIN, (Reported) APPLIES TO NECK AND BACK Miscellaneous Medications Furosemide (Furosemide) 40 Mg Tablet, 40 MG PO, (Reported) 15 DAY SUPPLY (11/25/2018) [Patient Comments] , (Reported) PATIENT IS INTUBATED AT THIS TIME AND UNABLE TO DISCUSS HER MEDICATIONS Allergies Coded Allergies: No Known Allergies (Unverified , 11/23/18) BIANCA REGALADO MD Dec 09, 2018 11:10
== END 2018-12-09 11:05 | disposition home health service (06) | DRG 208 ==
LOC: M ED 19:45 → M ED INP 21:13 → EEVIPCON 21:13 → M ICU 22:30 → M PCU 12-08 15:03
PROVIDERS: ADMIT Internal Medicine Pulmonary Disease; ATTEND Hospitalist
PROC: 5A1945Z Respiratory Ventilation, 24-96 Consecutive Hours (ICD-10-PCS; principal; 2018-12-03)
PROC: 0BH17EZ Insertion of Endotracheal Airway into Trachea, Via Natural or Artificial Opening (ICD-10-PCS; 2018-12-03)
DX: J96.21 Acute and chronic respiratory failure with hypoxia (principal); J96.22 Acute and chronic respiratory failure with hypercapnia; G47.33 Obstructive sleep apnea (adult) (pediatric); E11.9 Type 2 diabetes mellitus without complications; I25.2 Old myocardial infarction; J44.9 Chronic obstructive pulmonary disease, unspecified; F31.9 Bipolar disorder, unspecified; M79.7 Fibromyalgia; F17.200 Nicotine dependence, unspecified, uncomplicated; I27.81 Cor pulmonale (chronic); E78.5 Hyperlipidemia, unspecified; I25.10 Atherosclerotic heart disease of native coronary artery without angina pectoris; E03.9 Hypothyroidism, unspecified; I50.810 Right heart failure, unspecified; M54.9 Dorsalgia, unspecified; Z79.82 Long term (current) use of aspirin; Z79.84 Long term (current) use of oral hypoglycemic drugs; Z79.52 Long term (current) use of systemic steroids; Z79.899 Other long term (current) drug therapy; Z90.49 Acquired absence of other specified parts of digestive tract

== ENCOUNTER → 2018-12-09 | Outpatient (CLI) | payer MEDICARE, MEDICAID ==
[~2018-12-09] MED LIST changes: +FARX1TAB3 PO; +FURO40TA2 PO; +IPRA0.00 IN; +PATIENT COMMENTS
--- NOTE | 2018-12-13 18:21 | SLEEPCENT ---
DATE OF PROCEDURE: 12/09/2018 ORDERED BY: Dr. Troy Pacheco Nocturnal polysomnography was performed for assessment of sleep physiology and pressure responsiveness in this patient with a history of obstructive sleep apnea syndrome. 7 hours and 26 minutes of data were reviewed. There were 420.5 minutes of sleep identified. Sleep latency was short at 3.5 minutes. REM latency was short at 48 minutes. Sleep architecture improved late in the study with three REM cycles. Overall sleep efficiency was 96.2%. The electrocardiogram showed a sinus rhythm with an average heart rate of 80 beats per minute with unifocal PVCs. EEG showed fairly normal waveforms for awake and sleep with some alpha intrusion. During the initial portion of testing, 63 respiratory events were identified of 10 seconds in duration or greater for an apnea-hypopnea index of 7.8, confirming the presence of obstructive sleep apnea syndrome. The events were associated with profound oxygen desaturations, prompting a cessation of testing for the application of pressure therapy. Shortly before 1:00 a.m., the patient was fit with a [employer] Simplus full face mask of small size, 4 cm of water pressure were applied to the circuit and the lights were extinguished. Throughout the remaining course of study, pressure titration was performed. Despite optimal mask fit and minimal air leak, the patient required a change to a bilevel device. Despite optimal bilevel pressure, oxygen desaturations were seen and supplemental oxygen was added. Best sleep was seen on a bilevel pressure therapy inspiratory pressure 12 over expiratory pressure of 6 with 2 liters of oxygen bled through the system. IMPRESSION: Obstructive sleep apnea syndrome (G47.33). RECOMMENDATIONS: Nightly use of bilevel pressure therapy inspiratory pressure of 12 over expiratory pressure 6 with two liters of oxygen bled through the system.
== END ==
LOC: M SLEEP 19:44
PROVIDERS: ATTEND Internal Medicine Pulmonary Disease
DX: G47.33 Obstructive sleep apnea (adult) (pediatric) (principal)

== ENCOUNTER 2018-12-24 18:46 | Inpatient (IN) | payer MEDICARE, MEDICAID ==
[~2018-12-24] VITALS: Ht 165.1 cm; Wt 89.4 kg
[2018-12-24 19:26] LABS: BASO # 0.1 10^3/uL (0.0-0.2); BASO % 0.6 % (0.0-1.0); EOS # 0.2 10^3/uL (0.0-0.50); EOS % 1.6 % (0.0-3.0); HEMATOCRIT 43.3 % (36.0-47.0); HEMOGLOBIN 13.2 g/dl (12.0-15.5); LYMPH # 2.8 10^3/uL (1.5-4.5); MEAN CORPUSCULAR HEMOGLOBIN 29.5 pg (27.0-33.0); MEAN CORPUSCULAR HGB CONC 30.5 g/dl (32.0-36.5); MEAN CORPUSCULAR VOLUME 96.9 fl (80.0-96.0); MONO # 1.1 10^3/uL (0.0-0.8); MONO % 8.8 % (0.0-5.0); NEUTROPHILS % 65.4 % (36.0-66.0); PLATELET COUNT, AUTOMATED 376 10^3/uL (150-450); RED BLOOD COUNT 4.47 10^6/uL (4.00-5.40); WHITE BLOOD COUNT 12.2 10^3/uL (4.0-10.0)
[2018-12-24] MEDS: IPRATROPIUM 0.5MG/ALBUTEROL 2.5MG INH SOL UD 3ML (DUONEB)(J7620) NEB PRN ×3 (19:43→20:08)
[2018-12-24 19:59] LABS: ALBUMIN 3.5 GM/DL (3.2-5.2); ALT/SGPT 23 U/L (12-78); BILIRUBIN,DIRECT < 0.1 MG/DL (0.0-0.2); BILIRUBIN,TOTAL 0.2 MG/DL (0.2-1.0); BLOOD UREA NITROGEN 14 MG/DL (7-18); CALCIUM LEVEL 9.1 MG/DL (8.8-10.2); CARBON DIOXIDE LEVEL 42 MEQ/L (21-32); CHLORIDE LEVEL 95 MEQ/L (98-107); CK-MB VALUE MASS 2.5 NG/ML (<3.6); CPK CREATINE PHOSPHOKINASE 70 U/L (26-192); CREATININE FOR GFR 0.43 MG/DL (0.55-1.30); GLOMERULAR FILTRATION RATE > 60.0 (>45); GLUCOSE, FASTING 156 MG/DL (70-100); MB/CK RELATIVE INDEX 3.57 (< OR =4); NT-PRO BNP 205 PG/ML (<125); POTASSIUM SERUM 3.7 MEQ/L (3.5-5.1); SODIUM LEVEL 142 MEQ/L (136-145); THYROID STIMULATING HORMONE 0.972 uIU/ML (0.358-3.740); TOTAL PROTEIN 7.1 GM/DL (6.4-8.2); TROPONIN I < 0.02 NG/ML (< 0.10)
[2018-12-24] MEDS: ADVAIR HFA 230/21MCG INHALER INH SCH (20:00)
[2018-12-24] MEDS ORDERED: ATORVASTATIN 20 MG TAB PO SCH (21:00)
[2018-12-24] MEDS ORDERED: HumaLOG INSULIN (NovoLOG) PER UNIT SC SCH (21:00)
[2018-12-24] MEDS ORDERED: POTA8TAB8 PO (21:21)
[2018-12-24] MEDS ORDERED: MAALOX 30 ML SUSP *UDC PO PRN (21:45)
[2018-12-24] MEDS ORDERED: MOM 30ML SUSPENSION UDC PO PRN (21:45)
[2018-12-24] MEDS ORDERED: ANEXSIA, NORCO 7.5MG/325MG TABLET(HYDROCODONE/APAP) PO PRN (22:30)
[2018-12-24] MEDS ORDERED: GLUCOSE 4 GM CHEW TABLET PO PRN (22:30)
[2018-12-24] MEDS ORDERED: GLUCAGON FOR INJ 1 MG VIAL (J1610) SC PRN (22:30)
[2018-12-24] MEDS ORDERED: FUROSEMIDE 40 MG/4 ML VIAL (J1940) IV ONE (22:30)
[2018-12-24] MEDS ORDERED: AZITHROMYCIN 250 MG TAB PO SCH (22:30)
[2018-12-24] MEDS ORDERED: hydrOXYzine 25 MG TAB PO PRN (22:30)
[2018-12-24] MEDS ORDERED: DEXTROSE 50% 50 ML SYRINGE IV PRN (22:30)
[2018-12-24] MEDS ORDERED: ALBUTEROL SULFATE 2.5 MG/0.5 ML INH NEB SOLN NEB PRN (22:30)
--- NOTE | 2018-12-24 22:38 | ECGEPIP ---
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
[2018-12-24] MEDS: GABAPENTIN 400 MG CAP PO SCH (23:29)
[2018-12-24] MEDS: methylPREDNISolone INJ 40 MG/1 ML VIAL (J2920) IV SCH (23:34)
[2018-12-25] VITALS: BP_SYST 145; BP_SYST 146; BP_DIAS 76; BP_DIAS 78
[2018-12-25] MEDS: IPRATROPIUM 0.5MG/ALBUTEROL 2.5MG INH SOL UD 3ML (DUONEB)(J7620) NEB SCH ×3 (00:50→14:00)
--- NOTE | 2018-12-25 02:19 | HPEPDOC ---
General Date of Admission Dec 24, 2018 at 21:42 Date of Service: Dec 24, 2018 Chief Complaint The patient is a 63-year-old female admitted with a reason for visit of Acute On Chronic Respiratory Failure. Source: Patient, RN/MD, Old records Exam Limitations: No limitations Severity: Severe History of Present Illness 63 year old female with COPD, chronic respiratory failure with hypoxia and hypercarbia, SUYAPA started using BIPAP 3 days ago, Bipolar disorder, anxiety, diabetes, Hypertension, Hypothyroid, CAD, obesity presented to the ED with acute onset SOB at around 5 pm today. She was doing well this week has got her new BIPAP 3 days ago and has been using it every night. SHe went out this morning with her son and another lady who was wearing perfume which was bothering her. She was out for about 2 hours then came back home early afternoon and then started having severe SOB suddenly at 5 pm. She used her nebs several treatments without any relief of symptoms. She says her weight has been going down by 1 lbs daily since her discharge from the hospital only today it went up 1 lb. she denied any increased cough, denied any fever, denied any chest pain. Says her legs have not swollen up recently. Denied getting exposed to cigarettes. In the ED she was found to be in Acute on chronic respiratory failure with hypercarbia and hypoxia , COPD exacerbation and CHF exacerbation. She was started on BIPAP. Home Medications Scheduled Aripiprazole (Abilify) 5 Mg Tablet, 2.5 MG PO QHS, (Reported) Aspirin (Aspirin EC) 81 Mg Tabec, 81 MG PO DAILY, (Reported) Atorvastatin Calcium (Lipitor) 80 Mg Tab, 80 MG PO QHS, (Reported) Bisoprolol Fumarate (Bisoprolol Fumarate) 5 Mg Tab, 2.5 MG PO DAILY, (Reported) Dapagliflozin Propanediol (Farxiga) 10 Mg Tablet, 10 MG PO DAILY, (Reported) Ergocalciferol (Vitamin D2) (Drisdol) 50,000 Unit Cap, 50,000 UNIT PO 1XWK, (Reported) FRIDAYS Fluoxetine Hcl (Fluoxetine HCl) 20 Mg Capsule, 20 MG PO DAILY, (Reported) Fluticasone Propion/Salmeterol (Advair Hfa 230-21 Mcg Inhaler) 12 Gm Hfa.aer.ad, 2 PUFF INH BID, (Reported) Fluticasone Propionate (Flonase Allergy Relief) 50 Mcg/Act Spr, 1 SPRAY NA DAILY, (Reported) Furosemide (Furosemide) 40 Mg Tablet, 40 MG PO DAILY, (Reported) Gabapentin (Gabapentin) 800 Mg Tab, 800 MG PO BID, (Reported) Levothyroxine Sodium (Levoxyl) 25 Mcg Tab, 25 MCG PO DAILY, (Reported) Metformin HCl (Metformin HCl) 1,000 Mg Tab, 1,000 MG PO BID, (Reported) Pantoprazole Sodium (Pantoprazole Sodium) 40 Mg Tab, 40 MG PO DAILY, (Reported) Potassium Chloride (Potassium Chloride) 8 Meq Tablet.er, 8 MEQ PO DAILY, (Reported) Prednisone (Prednisone) 5 Mg Tablet, 5 MG PO DAILY, (Reported) Prochlorperazine Maleate (Prochlorperazine Maleate) 10 Mg Tablet, 10 MG PO DAILY, (Reported) Sertraline Hcl (Zoloft) 100 Mg Tablet, 100 MG PO DAILY, (Reported) Sitagliptin Phosphate (Januvia) 100 Mg Tablet, 100 MG PO DAILY, (Reported) Tiotropium [place] Monohydrate (Spiriva) 18 Mcg Cap.w.dev, 1 PUFF INH DAILY, (Reported) Scheduled PRN Albuterol Sulfate (Ventolin Hfa) 108 Mcg/Act Aer, 2 PUFFS INH Q4H PRN for SHORTNESS OF BREATH, (Reported) Hydrocodone/Acetaminophen ([place] 7.5-325 Tablet) 1 Each Tablet, 1 TAB PO BID PRN for PAIN, (Reported) Hydroxyzine Pamoate (Hydroxyzine Pamoate) 25 Mg Capsule, 25 MG PO TID PRN for ANXIETY, (Reported) Ipratropium/Albuterol Sulfate (Iprat-Albut 0.5-3(2.5) mg/3 ml) 3 Ml Ampul.neb, 1 INHALATION IN QID PRN for SHORTNESS OF BREATH, (Reported) Menthol (Bengay) 5% Gel..gram., 1 DOSE TOP QID PRN for PAIN, (Reported) APPLIES TO NECK AND BACK Nystatin (Nystatin Powder) 15 Gm Powder, 1 DOSE TOP QHS PRN for ITCH/RASH, (Reported) USES UNDER BREASTS Allergies Coded Allergies: No Known Allergies (Unverified , 11/23/18) Past Medical History Medical History Chronic respiratory failure with hypoxia and hypercarbia Chronic Diastolic CHF COPD SUYAPA on BIPAP Major depressive disorder Bipolar, anxiety disorder, adjustment disorder History of Cannabis use disorder. Nonobstructive Coronary artery disease with history of NSTEMI 2012 Degenerative disc disease with chronic musculoskeletal pain and muscle spasm. Chronic low back pain on narcotics Sacroiliac joint pain and myofascial pain. Fibromyalgia. Osteoarthritis Gastroesophageal reflux disease (GERD). Hypertension. Hyperlipidemia Diabetes Obesity Hypothyroidism. Adrenal nodule on the right, seems to be adrenal adenoma. Lung nodule Surgical History Cholecystectomy. Cardiac catheterization without stent. History of breast biopsy. Dilation and curettage. Tubal ligation. Tonsillectomy. Exploratory laparotomy. 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 Dyspnea, Lt Headedness Gastrointestinal: Denies: Nausea, Vomiting, Abdominal Pain, Diarrhea Genitourinary: Denies: Dysuria, Frequency, Incontinence, Retention Hematologic: Denies: Bruising, Bleeding Excessively Musculoskeletal: Reports: Neck Pain, Back Pain, Joint Pain Neurological: Denies: Weakness, Numbness, Change in speech, Confusion Physical Examination General Exam: Positive: Alert, Cooperative, Moderate Distress Eye Exam: Positive: PERRLA, Conjunctiva & lids normal, EOMI; Negative: Sclera icteric ENT Exam: Positive: Atraumatic, Mucous membr. moist/pink, Pharynx Normal Neck Exam: Positive: Supple, JVD Chest Exam: Positive: Diminished, Other (fine crackles at the bases) Heart Exam: Positive: Rate Normal, Regular Rhythm, Normal S1, Normal S2; Negative: Murmurs, Rubs Telemetry: Positive: No significant arrhythmia Abdomen Exam: Positive: Normal bowel sounds, Soft; Negative: Tenderness, Hepatospenomegaly Extremity Exam: Positive: Edema Skin Exam: Positive: Nl turgor and temperature; Negative: Breakdown, Lesion Vital Signs Vital Signs Date Time Temp Pulse Resp B/P (MAP) Pulse Ox O2 Delivery O2 Flow Rate FiO2 12/25/18 00:00 97.2 103 18 145/76 (99) 97 6.0 96 12/24/18 22:45 NIPPV (BIPAP/CPAP) Laboratory Data Labs 24H Laboratory Tests 2 12/24/18 19:15: Immature Granulocyte % (Auto) 0.6, White Blood Count 12.2H, Red Blood Count 4.47, Hemoglobin 13.2, Hematocrit 43.3, Mean Corpuscular Volume 96.9H, Mean Corpuscular Hemoglobin 29.5, Mean Corpuscular Hemoglobin Concent 30.5L, Red Cell Distribution Width 15.2H, Platelet Count 376, Neutrophils (%) (Auto) 65.4, Lymphocytes (%) (Auto) 23.0L, Monocytes (%) (Auto) 8.8H, Eosinophils (%) (Auto) 1.6, Basophils (%) (Auto) 0.6, Neutrophils # (Auto) 8.0H, Lymphocytes # (Auto) 2.8, Monocytes # (Auto) 1.1H, Eosinophils # (Auto) 0.2, Basophils # (Auto) 0.1, Nucleated Red Blood Cells % (auto) 0.0, Anion Gap 5L, Glomerular Filtration Rate > 60.0, Calcium Level 9.1, Aspartate Amino Transf (AST/SGOT) 19, Alanine Aminotransferase (ALT/SGPT) 23, Alkaline Phosphatase 121H, Total Bilirubin 0.2, Direct Bilirubin < 0.1, Total Creatine Kinase 70, Creatine Kinase MB 2.5, Creatine Kinase MB Relative Index 3.57, Troponin I < 0.02, KP-[id number]-[id number]-Type Natriuretic Peptide 205H, Total Protein 7.1, Albumin 3.5, Albumin/Globulin Ratio 0.97L, Thyroid Stimulating Hormone (TSH) 0.972 12/24/18 19:17: POC pH (Misc Panel) 7.262L, POC Base Excess (Misc Panel) 15.0H, POC Saturated Percent O2 (Misc) 99H, POC pO2 (Misc Panel) 156.0H, POC pCO2 (Misc Panel) 92.8*H, POC HCO3 (Misc Panel) 41.9H, POC Total CO2 (Misc Panel) 45.0H 12/24/18 21:03: POC pH (Misc Panel) 7.298L, POC Base Excess (Misc Panel) 11.0H, POC Saturated Percent O2 (Misc) 94L, POC pO2 (Misc Panel) 80.0, POC pCO2 (Misc Panel) 76.2*H, POC HCO3 (Misc Panel) 37.3H, POC Total CO2 (Misc Panel) 40.0H CBC/BMP Laboratory Tests 12/24/18 19:15 Red Blood Count 4.47, Mean Corpuscular Volume 96.9 H, Mean Corpuscular Hemoglobin 29.5, Mean Corpuscular Hemoglobin Concent 30.5 L, Red Cell Distribution Width 15.2 H, Neutrophils (%) (Auto) 65.4, Lymphocytes (%) (Auto) 23.0 L, Monocytes (%) (Auto) 8.8 H, Eosinophils (%) (Auto) 1.6, Basophils (%) (Auto) 0.6, Neutrophils # (Auto) 8.0 H, Lymphocytes # (Auto) 2.8, Monocytes # (Auto) 1.1 H, Eosinophils # (Auto) 0.2, Basophils # (Auto) 0.1 Microbiology Microbiology 12/24/18 Blood Culture, Received Pending 12/24/18 Blood Culture, Received Pending Assessment/Plan Acute on Chronic respiratory failure with hypoxia and hypercarbia started on BIPAP support. ABG improving. continue treatment of CHF and COPD exacerbations. Acute on Chronic Diastolic CHF will give IV lasix. COPD exacerbation duonebs, methyl pred q 6 hours, continue advair, azithromycin SUYAPA on BIPAP recently starting using home BIPAP this week Major depressive disorder, Bipolar, anxiety disorder, adjustment disorder, History of Cannabis use disorder. continue home meds. Nonobstructive Coronary artery disease with history of NSTEMI 2012 continue statin, and betablocker Degenerative disc disease with chronic back musculoskeletal pain and muscle spasm. Sacroiliac joint pain and myofascial pain. Fibromyalgia, Osteoarthritis continue norco, gabapentin Gastroesophageal reflux disease (GERD). Hypertension. Hyperlipidemia Diabetes with neuropathy will give levemir and ispro as pe sliding scale continue januvia, hold metformin FS AC and HS gabapentin Obesity Hypothyroidism. continue synthroid Adrenal nodule on the right, seems to be adrenal adenoma. Lung nodule outpatient follow up. Plan / VTE VTE Prophylaxis Ordered?: Yes RAY,OLIVIA MD Dec 25, 2018 00:55
[2018-12-25 04:00] VITALS: BP_SYST 133; BP_DIAS 72; BP_DIAS 73
[2018-12-25 05:02] LABS: BASO % 0.2 % (0.0-1.0); HEMATOCRIT 40.5 % (36.0-47.0); HEMOGLOBIN 12.4 g/dl (12.0-15.5); LYMPH # 0.5 10^3/uL (1.5-4.5); MEAN CORPUSCULAR HEMOGLOBIN 28.8 pg (27.0-33.0); MEAN CORPUSCULAR HGB CONC 30.6 g/dl (32.0-36.5); MONO # 0.1 10^3/uL (0.0-0.8); MONO % 1.1 % (0.0-5.0); NEUTROPHILS # 8.1 10^3/uL (1.8-7.7); PLATELET COUNT, AUTOMATED 338 10^3/uL (150-450); RED BLOOD COUNT 4.31 10^6/uL (4.00-5.40); WHITE BLOOD COUNT 8.8 10^3/uL (4.0-10.0)
[2018-12-25 05:16] LABS: BLOOD UREA NITROGEN 10 MG/DL (7-18); CALCIUM LEVEL 8.4 MG/DL (8.8-10.2); CARBON DIOXIDE LEVEL 35 MEQ/L (21-32); CHLORIDE LEVEL 92 MEQ/L (98-107); CREATININE FOR GFR 0.38 MG/DL (0.55-1.30); GLOMERULAR FILTRATION RATE > 60.0 (>45); GLUCOSE, FASTING 194 MG/DL (70-100); POTASSIUM SERUM 3.7 MEQ/L (3.5-5.1); SODIUM LEVEL 136 MEQ/L (136-145)
[2018-12-25 05:55] LABS: ABG BASE EXCESS 10.9 (-2.0-2.0); ABG HCO3 38.9 MEQ/L (22.0-26.0); ABG STANDARD HCO3 34.7 MEQ/L (22.0-26.0); ABG pH (ARTERIAL) 7.371 UNITS (7.350-7.450)
[2018-12-25 05:58] LABS: ABG PARTIAL PRESSURE CO2 68.6 mmHg (35.0-45.0)
[2018-12-25] MEDS: methylPREDNISolone INJ 40 MG/1 ML VIAL (J2920) IV SCH ×2 (06:27→11:57)
--- NOTE | 2018-12-25 07:26 | REP ---
Clinical: Shortness of breath. Technique: PA and lateral. Comparison: 12/09/2018. Findings: Mediastinum and cardiac silhouette are normal. Lung cherry demonstrate chronic basilar changes along with coarsened mid to lower lobe markings which may reflect mild bronchitis. No focal consolidation. No effusion. No pneumothorax. Skeletal structures intact. Impression: Cannot exclude mild bronchitis. Electronically Signed by Michael Vasques MD 12/25/2018 07:18 A
[2018-12-25] MEDS: ADVAIR HFA 230/21MCG INHALER INH SCH (07:57)
[2018-12-25 08:00] VITALS: BP 149/72
[2018-12-25] MEDS ORDERED: ENOXAPARIN 40 MG/0.4 ML SYRINGE (J1650) SC SCH (09:00)
[2018-12-25] MEDS ORDERED: DOCUSATE SODIUM 100 MG CAP PO SCH (09:00)
[2018-12-25] MEDS ORDERED: ASPIRIN 81 MG ENTERIC TAB PO SCH (09:00)
[2018-12-25] MEDS ORDERED: PANTOPRAZOLE 40MG TAB (PROTONIX) PO SCH (09:00)
[2018-12-25] MEDS ORDERED: SITagliptin 50 MG TAB (JANUVIA) PO SCH (09:00)
[2018-12-25] MEDS ORDERED: SERTRALINE 100 MG TAB PO SCH (09:00)
[2018-12-25] MEDS ORDERED: FUROSEMIDE 40 MG/4 ML VIAL (J1940) IV SCH (09:00)
[2018-12-25] MEDS ORDERED: FLUoxetine 20 MG CAP PO SCH (09:00)
[2018-12-25] MEDS ORDERED: BISOPROLOL FUMARATE 5 MG TAB PO SCH (09:00)
[2018-12-25] MEDS ORDERED: LEVEMIR (INSULIN DETEMIR) 1 UNITS/0.01ML SC SCH (09:00)
[2018-12-25] MEDS ORDERED: LEVOTHYROXINE 25MCG TABLET (0.025MG) PO SCH (09:00)
[2018-12-25] MEDS: HumaLOG INSULIN (NovoLOG) PER UNIT SC SCH ×2 (09:05→11:58)
[2018-12-25 09:06] VITALS: BP 149/72
[2018-12-25] MEDS: GABAPENTIN 400 MG CAP PO SCH (09:06)
[2018-12-25 10:00] VITALS: BP 128/73
[2018-12-25 12:00] VITALS: BP 116/71
[2018-12-25] MEDS ORDERED: PRED20TA PO (13:53)
[2018-12-25] MEDS ORDERED: AZIT-12 PO (13:53)
--- NOTE | 2018-12-25 14:16 | DS.PDOC ---
Discharge Summary General Date of Admission Dec 24, 2018 at 21:42 Date of Discharge December 25 2018 Primary Care Physician: Natalie Antony Attending Physician: CASH NICHOLAS MD Discharge Summary PROCEDURES PERFORMED DURING STAY: None ADMITTING DIAGNOSES: Acute on Chronic respiratory failure with hypoxia and hypercarbia DISCHARGE DIAGNOSES: Acute on Chronic respiratory failure with hypoxia and hypercarbia COPD SUYAPA CAD Hypothyroidism DM Diastolic Heart Failure COMPLICATIONS/CHIEF COMPLAINT: Acute On Chronic Respiratory Failure. HISTORY OF PRESENT ILLNESS: 63 year old female with COPD, chronic respiratory failure with hypoxia and hypercarbia, SUYAPA started using BIPAP 3 days ago, Bipolar disorder, anxiety, diabetes, Hypertension, Hypothyroid, CAD, obesity presented to the ED with acute onset SOB at around 5 pm today. She was doing well this week has got her new BIPAP 3 days ago and has been using it every night. SHe went out this morning with her son and another lady who was wearing perfume which was bothering her. She was out for about 2 hours then came back home early afternoon and then started having severe SOB suddenly at 5 pm. She used her nebs several treatments without any relief of symptoms. She says her weight has been going down by 1 lbs daily since her discharge from the hospital only today it went up 1 lb. she denied any increased cough, denied any fever, denied any chest pain. Says her legs have not swollen up recently. Denied getting exposed to cigarettes. In the ED she was found to be in Acute on chronic respiratory failure with hypercarbia and hypoxia , COPD exacerbation and CHF exacerbation. She was started on BIPAP. HOSPITAL COURSE: Acute on Chronic respiratory failure with hypoxia and hypercarbia started on BIPAP support w improved ABG continue treatment of CHF and COPD exacerbations. Acute on Chronic Diastolic CHF will give IV lasix. transitioned back to PO lasix on discharge COPD exacerbation duonebs, methyl pred q 6 hours, continue advair, azithromycin dc w 3 more days of azithro and 5 days of prednisone 60mg SUYAPA on BIPAP recently starting using home BIPAP this week - cont home bipap Major depressive disorder, Bipolar, anxiety disorder, adjustment disorder, History of Cannabis use disorder. continue home meds. Nonobstructive Coronary artery disease with history of NSTEMI 2012 continue statin, and betablocker Degenerative disc disease with chronic back musculoskeletal pain and muscle spasm. Sacroiliac joint pain and myofascial pain. Fibromyalgia, Osteoarthritis continue norco, gabapentin Gastroesophageal reflux disease (GERD). Hypertension. Hyperlipidemia Diabetes with neuropathy will give levemir and ispro as pe sliding scale continue januvia, hold metformin FS AC and HS gabapentin Obesity Hypothyroidism. continue synthroid Adrenal nodule on the right, seems to be adrenal adenoma. Lung nodule outpatient follow up. DISCHARGE MEDICATIONS: Please see below. ALLERGIES: Please see below. PHYSICAL EXAMINATION ON DISCHARGE: VITAL SIGNS: Please see below. GENERAL: NAD Resp: distant breath sounds but CTAB no c/c/e LABORATORY DATA: Please see below. PROGNOSIS: fair ACTIVITY: As tolerated DIET: diabetic DISCHARGE PLAN: FU with Pulm and PCP DISPOSITION: Home DISCHARGE INSTRUCTIONS: 1. 3 more days of azithro and 5 days of prednisone 60mg. Avoid smoking or allergens ITEMS TO FOLLOWUP ON ON OUTPATIENT: 1. PCP 2. Pulm DISCHARGE CONDITION: Stable TIME SPENT ON DISCHARGE: Greater than 30 minutes. Vital Signs/I&Os Vital Signs Date Time Temp Pulse Resp B/P (MAP) Pulse Ox O2 Delivery O2 Flow Rate FiO2 12/25/18 12:00 4.0 12/25/18 12:00 96.9 93 116/71 93 12/25/18 06:58 18 12/25/18 04:00 96 12/24/18 22:45 NIPPV (BIPAP/CPAP) I&O- Last 24 Hours up to 6 AM 12/25/18 06:00 Intake Total 0 ml Output Total 1200 ml Balance -1200 ml Laboratory Data Labs 24H Laboratory Tests 2 12/24/18 19:15: Immature Granulocyte % (Auto) 0.6, White Blood Count 12.2H, Red Blood Count 4.47, Hemoglobin 13.2, Hematocrit 43.3, Mean Corpuscular Volume 96.9H, Mean Corpuscular Hemoglobin 29.5, Mean Corpuscular Hemoglobin Concent 30.5L, Red Cell Distribution Width 15.2H, Platelet Count 376, Neutrophils (%) (Auto) 65.4, Lymphocytes (%) (Auto) 23.0L, Monocytes (%) (Auto) 8.8H, Eosinophils (%) (Auto) 1.6, Basophils (%) (Auto) 0.6, Neutrophils # (Auto) 8.0H, Lymphocytes # (Auto) 2.8, Monocytes # (Auto) 1.1H, Eosinophils # (Auto) 0.2, Basophils # (Auto) 0.1, Nucleated Red Blood Cells % (auto) 0.0, Anion Gap 5L, Glomerular Filtration Rate > 60.0, Calcium Level 9.1, Aspartate Amino Transf (AST/SGOT) 19, Alanine Aminotransferase (ALT/SGPT) 23, Alkaline Phosphatase 121H, Total Bilirubin 0.2, Direct Bilirubin < 0.1, Total Creatine Kinase 70, Creatine Kinase MB 2.5, Creatine Kinase MB Relative Index 3.57, Troponin I < 0.02, SF-Xvq-F-Type Natriuretic Peptide 205H, Total Protein 7.1, Albumin 3.5, Albumin/Globulin Ratio 0.97L, Thyroid Stimulating Hormone (TSH) 0.972 12/24/18 19:17: POC pH (Misc Panel) 7.262L, POC Base Excess (Misc Panel) 15.0H, POC Saturated Percent O2 (Misc) 99H, POC pO2 (Misc Panel) 156.0H, POC pCO2 (Misc Panel) 92.8*H, POC HCO3 (Misc Panel) 41.9H, POC Total CO2 (Misc Panel) 45.0H 12/24/18 21:03: POC pH (Misc Panel) 7.298L, POC Base Excess (Misc Panel) 11.0H, POC Saturated Percent O2 (Misc) 94L, POC pO2 (Misc Panel) 80.0, POC pCO2 (Misc Panel) 76.2*H, POC HCO3 (Misc Panel) 37.3H, POC Total CO2 (Misc Panel) 40.0H 12/25/18 04:45: Immature Granulocyte % (Auto) 0.7, White Blood Count 8.8, Red Blood Count 4.31, Hemoglobin 12.4, Hematocrit 40.5, Mean Corpuscular Volume 94.0, Mean Corpuscular Hemoglobin 28.8, Mean Corpuscular Hemoglobin Concent 30.6L, Red Cell Distribution Width 14.9H, Platelet Count 338, Neutrophils (%) (Auto) 92.0H, Lymphocytes (%) (Auto) 6.0L, Monocytes (%) (Auto) 1.1, Eosinophils (%) (Auto) 0.0, Basophils (%) (Auto) 0.2, Neutrophils # (Auto) 8.1H, Lymphocytes # (Auto) 0.5L, Monocytes # (Auto) 0.1, Eosinophils # (Auto) 0.0, Basophils # (Auto) 0.0, Nucleated Red Blood Cells % (auto) 0.0, Anion Gap 9, Glomerular Filtration Rate > 60.0, Calcium Level 8.4L, Blood Urea Nitrogen 10, Creatinine 0.38L, Sodium Level 136, Potassium Level 3.7, Chloride Level 92L, Carbon Dioxide Level 35H 12/25/18 05:40: Blood Gas Bicarbonate Standard 34.7H, Arterial Blood pH 7.371, Arterial Blood Partial Pressure CO2 68.6*H, Arterial Blood Partial Pressure O2 100.0, Arterial Blood Total CO2 41.0H, Arterial Blood HCO3 38.9H, Arterial Blood Base Excess 10.9H, Arterial Blood Oxygen Saturation 97.0 12/25/18 11:53: Bedside Glucose (Misc Panel) 232H CBC/BMP Laboratory Tests 12/24/18 19:15 Red Blood Count 4.47, Mean Corpuscular Volume 96.9 H, Mean Corpuscular Hemoglobin 29.5, Mean Corpuscular Hemoglobin Concent 30.5 L, Red Cell Distribution Width 15.2 H, Neutrophils (%) (Auto) 65.4, Lymphocytes (%) (Auto) 23.0 L, Monocytes (%) (Auto) 8.8 H, Eosinophils (%) (Auto) 1.6, Basophils (%) (Auto) 0.6, Neutrophils # (Auto) 8.0 H, Lymphocytes # (Auto) 2.8, Monocytes # (Auto) 1.1 H, Eosinophils # (Auto) 0.2, Basophils # (Auto) 0.1 12/25/18 04:45 Red Blood Count 4.31, Mean Corpuscular Volume 94.0, Mean Corpuscular Hemoglobin 28.8, Mean Corpuscular Hemoglobin Concent 30.6 L, Red Cell Distribution Width 14.9 H, Neutrophils (%) (Auto) 92.0 H, Lymphocytes (%) (Auto) 6.0 L, Monocytes (%) (Auto) 1.1, Eosinophils (%) (Auto) 0.0, Basophils (%) (Auto) 0.2, Neutrophils # (Auto) 8.1 H, Lymphocytes # (Auto) 0.5 L, Monocytes # (Auto) 0.1, Eosinophils # (Auto) 0.0, Basophils # (Auto) 0.0, Calcium Level 8.4 L FSBS Laboratory Tests Test 12/25/18 11:53 Range/Units Bedside Glucose (Misc Panel) 232 80-115 MG/DL Microbiology Microbiology 12/24/18 Blood Culture, Received Pending 12/24/18 Blood Culture, Received Pending Discharge Medications Scheduled Aripiprazole (Abilify) 5 Mg Tablet, 2.5 MG PO QHS, (Reported) Aspirin (Aspirin EC) 81 Mg Tabec, 81 MG PO DAILY, (Reported) Atorvastatin Calcium (Lipitor) 80 Mg Tab, 80 MG PO QHS, (Reported) Azithromycin (Azithromycin) 250 Mg Tablet, 500 MG PO QHS Bisoprolol Fumarate (Bisoprolol Fumarate) 5 Mg Tab, 2.5 MG PO DAILY, (Reported) Dapagliflozin Propanediol (Farxiga) 10 Mg Tablet, 10 MG PO DAILY, (Reported) Ergocalciferol (Vitamin D2) (Drisdol) 50,000 Unit Cap, 50,000 UNIT PO 1XWK, (Reported) [place] Fluoxetine Hcl (Fluoxetine HCl) 20 Mg Capsule, 20 MG PO DAILY, (Reported) Fluticasone Propion/Salmeterol (Advair Hfa 230-21 Mcg Inhaler) 12 Gm Hfa.aer.ad, 2 PUFF INH BID, (Reported) Fluticasone Propionate (Flonase Allergy Relief) 50 Mcg/Act Spr, 1 SPRAY NA DAILY, (Reported) Furosemide (Furosemide) 40 Mg Tablet, 40 MG PO DAILY, (Reported) Gabapentin (Gabapentin) 800 Mg Tab, 800 MG PO BID, (Reported) Levothyroxine Sodium (Levoxyl) 25 Mcg Tab, 25 MCG PO DAILY, (Reported) Metformin HCl (Metformin HCl) 1,000 Mg Tab, 1,000 MG PO BID, (Reported) Pantoprazole Sodium (Pantoprazole Sodium) 40 Mg Tab, 40 MG PO DAILY, (Reported) Potassium Chloride (Potassium Chloride) 8 Meq Tablet.er, 8 MEQ PO DAILY, (Reported) Prednisone (Prednisone) 5 Mg Tablet, 5 MG PO DAILY, (Reported) Prednisone (Prednisone) 20 Mg Tablet, 60 MG PO DAILY Prochlorperazine Maleate (Prochlorperazine Maleate) 10 Mg Tablet, 10 MG PO DAILY, (Reported) Sertraline Hcl (Zoloft) 100 Mg Tablet, 100 MG PO DAILY, (Reported) Sitagliptin Phosphate (Januvia) 100 Mg Tablet, 100 MG PO DAILY, (Reported) Tiotropium [place] Monohydrate (Spiriva) 18 Mcg Cap.w.dev, 1 PUFF INH DAILY, (Reported) Scheduled PRN Albuterol Sulfate (Ventolin Hfa) 108 Mcg/Act Aer, 2 PUFFS INH Q4H PRN for SHORTNESS OF BREATH, (Reported) Hydrocodone/Acetaminophen ([place] 7.5-325 Tablet) 1 Each Tablet, 1 TAB PO BID PRN for PAIN, (Reported) Hydroxyzine Pamoate (Hydroxyzine Pamoate) 25 Mg Capsule, 25 MG PO TID PRN for ANXIETY, (Reported) Ipratropium/Albuterol Sulfate (Iprat-Albut 0.5-3(2.5) mg/3 ml) 3 Ml Ampul.neb, 1 INHALATION IN QID PRN for SHORTNESS OF BREATH, (Reported) Menthol (Bengay) 5% Gel..gram., 1 DOSE TOP QID PRN for PAIN, (Reported) APPLIES TO NECK AND BACK Nystatin (Nystatin Powder) 15 Gm Powder, 1 DOSE TOP QHS PRN for ITCH/RASH, (Repo rted) USES UNDER BREASTS Allergies Coded Allergies: No Known Allergies (Unverified , 11/23/18) CASH NICHOLAS MD Dec 25, 2018 14:16
== END 2018-12-25 15:00 | disposition home or self-care (01) | DRG 291 ==
LOC: M ED 18:46 → M ED INP 21:42 → M ICU 23:15
PROVIDERS: ADMIT Internal Medicine Nephrology; ATTEND Internal Medicine Nephrology
DX: I11.0 Hypertensive heart disease with heart failure (principal); J96.21 Acute and chronic respiratory failure with hypoxia; J96.22 Acute and chronic respiratory failure with hypercapnia; J44.1 Chronic obstructive pulmonary disease with (acute) exacerbation; G47.33 Obstructive sleep apnea (adult) (pediatric); F31.9 Bipolar disorder, unspecified; R91.1 Solitary pulmonary nodule; F41.9 Anxiety disorder, unspecified; K21.9 Gastro-esophageal reflux disease without esophagitis; I25.2 Old myocardial infarction; E11.40 Type 2 diabetes mellitus with diabetic neuropathy, unspecified; I50.33 Acute on chronic diastolic (congestive) heart failure; E03.9 Hypothyroidism, unspecified; I25.10 Atherosclerotic heart disease of native coronary artery without angina pectoris; E66.9 Obesity, unspecified; D35.01 Benign neoplasm of right adrenal gland; Z79.82 Long term (current) use of aspirin; Z79.899 Other long term (current) drug therapy; Z79.84 Long term (current) use of oral hypoglycemic drugs; Z90.49 Acquired absence of other specified parts of digestive tract

== ENCOUNTER 2019-01-06 01:38 | Inpatient (IN) | payer MEDICARE, MEDICAID ==
[~2019-01-06] VITALS: Ht 165.1 cm; Wt 88.5 kg
[2019-01-06] VITALS (15 sets, daily range): BP systolic 116–157; BP diastolic 67–79; O2SAT 89–98
[~2019-01-06 01:38] MED LIST changes: +POTA8TAB8 PO
[2019-01-06] MEDS ORDERED: methylPREDNISolone INJ 125 MG/2 ML VIAL (J2930) IV ONE (01:45)
[2019-01-06] MEDS: IPRATROPIUM 0.5MG/ALBUTEROL 2.5MG INH SOL UD 3ML (DUONEB)(J7620) NEB PRN ×3 (01:55→02:52)
[2019-01-06 01:57] LABS: ABG BASE EXCESS 6.2 (-2.0-2.0); ABG HCO3 36.9 MEQ/L (22.0-26.0); ABG O2 SATURATION 98.9 % (95.0-99.0); ABG PARTIAL PRESSURE CO2 89.7 mmHg (35.0-45.0); ABG PARTIAL PRESSURE O2 221.8 mmHg (75.0-100.0); ABG STANDARD HCO3 30.1 MEQ/L (22.0-26.0); ABG TOTAL CO2 39.6 MEQ/L (23.0-31.0); ABG pH (ARTERIAL) 7.232 UNITS (7.350-7.450)
[2019-01-06] MEDS ORDERED: FUROSEMIDE 100 MG/10 ML VIAL (J1940) IV ONE (02:00)
[2019-01-06 02:13] LABS: BASO # 0.1 10^3/uL (0.0-0.2); BASO % 0.6 % (0.0-1.0); EOS # 0.1 10^3/uL (0.0-0.50); EOS % 0.9 % (0.0-3.0); HEMATOCRIT 43.4 % (36.0-47.0); HEMOGLOBIN 13.1 g/dl (12.0-15.5); LYMPH # 1.9 10^3/uL (1.5-4.5); LYMPH % 14.6 % (24.0-44.0); MEAN CORPUSCULAR HEMOGLOBIN 28.5 pg (27.0-33.0); MEAN CORPUSCULAR HGB CONC 30.2 g/dl (32.0-36.5); MEAN CORPUSCULAR VOLUME 94.6 fl (80.0-96.0); MONO # 1.2 10^3/uL (0.0-0.8); MONO % 9.1 % (0.0-5.0); NEUTROPHILS # 9.4 10^3/uL (1.8-7.7); NEUTROPHILS % 73.9 % (36.0-66.0); PLATELET COUNT, AUTOMATED 446 10^3/uL (150-450); RED BLOOD COUNT 4.59 10^6/uL (4.00-5.40); WHITE BLOOD COUNT 12.7 10^3/uL (4.0-10.0)
[2019-01-06 02:44] LABS: ALBUMIN 3.2 GM/DL (3.2-5.2); ALT/SGPT 19 U/L (12-78); BILIRUBIN,DIRECT < 0.1 MG/DL (0.0-0.2); BILIRUBIN,TOTAL 0.4 MG/DL (0.2-1.0); BLOOD UREA NITROGEN 8 MG/DL (7-18); CARBON DIOXIDE LEVEL 34 MEQ/L (21-32); CHLORIDE LEVEL 100 MEQ/L (98-107); CK-MB VALUE MASS 1.3 NG/ML (<3.6); CPK CREATINE PHOSPHOKINASE 74 U/L (26-192); GLOMERULAR FILTRATION RATE > 60.0 (>45); GLUCOSE, FASTING 150 MG/DL (70-100); MB/CK RELATIVE INDEX 1.76 (< OR =4); NT-PRO BNP 161 PG/ML (<125); POTASSIUM SERUM 4.8 MEQ/L (3.5-5.1); SODIUM LEVEL 142 MEQ/L (136-145); THYROID STIMULATING HORMONE 0.986 uIU/ML (0.358-3.740); THYROXINE (T4) 7.1 UG/DL (4.5-12.0); TOTAL PROTEIN 6.9 GM/DL (6.4-8.2); TROPONIN I < 0.02 NG/ML (< 0.10)
[2019-01-06] MEDS ORDERED: ACETAMINOPHEN TAB 650MG DOSE (2X325MG) PO ONE (02:45)
[2019-01-06] MEDS ORDERED: CETI5SOL3 PO (02:59)
[2019-01-06] MEDS ORDERED: BENZ200C70 PO (02:59)
[2019-01-06 04:07] LABS: ABG HCO3 35.6 MEQ/L (22.0-26.0); ABG O2 SATURATION 53.5 % (95.0-99.0); ABG PARTIAL PRESSURE O2 28.7 mmHg (75.0-100.0); ABG STANDARD HCO3 29.7 MEQ/L (22.0-26.0); ABG TOTAL CO2 37.8 MEQ/L (23.0-31.0); ABG pH (ARTERIAL) 7.318 UNITS (7.350-7.450)
[2019-01-06] MEDS: IPRATROPIUM 0.5MG/ALBUTEROL 2.5MG INH SOL UD 3ML (DUONEB)(J7620) NEB SCH ×6 (04:34→19:57)
--- NOTE | 2019-01-06 04:38 | HPEPDOC ---
[facility] Medical History & Physical Date of Admission Jan 06, 2019 Date of Service: Jan 06, 2019 Primary Care Physician: Natalie Antony Attending Physician: JET REEDER MD History and Physical Time of service 5:15 AM CHIEF COMPLAINT: Dyspnea HISTORY OF PRESENT ILLNESS: Ms. Zavala is a 63-year-old female who presented because she "just couldn't breathe" for 5 hours prior to arrival in the hospital. She was short of breath at rest and with exertion. Associated symptoms included the sensation of being "heavy chested". She denies having a change in her cough, denies having a runny nose, denies having sick contacts, denies exposure to smoke, denies having unilateral leg swelling and denies missing any doses of her medications. Of note, she was admitted for a COPD exacerbation 3 weeks ago and planned to follow up with her radar engineer in January. She has been hospitalized 14 times this year alone for acute COPD. She thinks that changes the in weather trigger her COPD. She's been intubated once. Per discussion with the ED attending this COPD exacerbation may have been triggered by anxiety; despite receiving several neb treatments and Solu-Medrol today, shhe has not returned back to her baseline. He also added that the patient has a PAP machine at home but is not compliant. REVIEW OF SYSTEMS: 12 point review of systems negative except as listed in HPI PAST MEDICAL /SURGICAL HISTORY: 1. COPD with chronic hypoxemic hypercarbic respiratory failure 2. Chronic diastolic heart failure / chronic hypertension 3. Nonobstructive Chronic coronary artery disease status post UT /dyslipidemia 4. She denies a personal history of kidney disease or CVA. 5. SUYAPA/ OHS/obesity, noncompliant with PAP 6. Bipolar disorder/anxiety/adjustment disorder 7. DJD/chronic back pain/Osteoarthritis/fibromyalgia. 9. Nhp-ychwzzt-fgczefwem diabetes. 10. Hypothyroidism. 11. Right adrenal nodule 12. Lung nodule. 9. 13. Status post cholecystectomy. 14. Status post D&C. 15. Status post tubal ligation SOCIAL HISTORY: Quit smoking Remote history of marijuana use FAMILY HISTORY: Artery disease. Diabetes Cancer ALLERGIES: Please see below. HOME MEDICATIONS: Please see below. PHYSICAL EXAMINATION: VITAL SIGNS: Temp 97.4, pulse 98, respiratory 28, blood pressure 126/72, pulse ox 90% on 6 L. GENERAL APPEARANCE: Well-nourished, well-developed, appears slightly anxious HEENT: Normocephalic, atraumatic, nasal cannula in place, mucous numbers moist and pink, lips acyanotic CARDIOVASCULAR: Regular rate, and rhythm, no murmurs, rubs or gallops LUNGS: Decreased air entry bilaterally with decreased breath sounds bilaterally ABDOMEN: abdomen soft and nontender on palpation MUSCULOSKELETAL: Range of motion is intact 4 extremities EXTREMITIES: Trace bilateral lower extremity edema NEUROLOGICAL: Cranial 2-12 grossly intact. Speech not dysarthric PSYCHIATRIC: Mood and oriented to person, place, time, able to understand and follow commands LABORATORY DATA: CBC is remarkable for WBC count of 12.7 Chemistries remarkable for a CO2 34, glucose of 150, and BNP 161 ABG shows a pH of 7.232, PCO2 of 89, and PO2 of 221 IMAGING: Chest x-ray may be a lesion at the left which may also represent a breast shadow, the final read is pending. MICROBIOLOGY: Please see below. ASSESSMENT: Ms. Zavala is a 63-year-old female the past medical history of COPD, congestive heart failure, hypertension, chronic coronary artery disease, GERD, anxiety, hypothyroid, is on, obesity hypoventilation syndrome with noncompliance with PAP machine, fibro-myalgia, and chronic pain secondary to DJD. Will be admitted for management of acute COPD. . PLAN: 1. .Acute COPD Per discussion with the ED attending triggers likely anxiety. The patient has had multiple hospitalizations for COPD and is been intubated in the past. She is a high risk for readmission. BAP-65 Score to predict mortality in acute COPD = class 1 = 0.3% risk of in hospital mortality Plan:admit to PCU / f/u ABG / c/w O2 / Dunebs Q6H, Albuterol Q4HP, Prednisone + PPI / no antibiotics because she denies a change in her chronic cough/Tessalon Pearls / the day time team can consider reaching out to Pulm to see if the patient is a Candidate for Roflumilast / refer to Product Developer for repeat PFTs and Pulmonary Rehab when ready for d/c 2.Chronic diastolic heart failure / chronic hypertension Chest x-rays pending. BNP is 161, but this may be falsely low because she is obese. Plan: Continue home meds/give 1 dose of Lasix. 3. Nonobstructive Chronic coronary artery disease status post UT /dyslipidemia Plan: Continue home meds 4. Bipolar disorder/anxiety/adjustment disorder Plan: Continue home meds 5. Mxu-mbmzxue-hbukwjxrc diabetes. Plan: : f/u accuchecks & A1C / hypoglycemia protocol / sliding scale / hold oral anti-glycemics 6 . DJD/chronic back pain/Frank, arthritis/fibromyalgia. Plan: Continue home meds 7. Hypothyroidism. Plan: Continue home meds 8. Obesity BMI 33.1 + DM + OHS (non complaiance w machine) Plan: can f/u w PCP for security strategist consult / recommend cardiovascular exercise for 40 min 4-5 days a week DVT prophylaxis with heparin Disposition pending clinical course Vital Signs Vital Signs Date Time Temp Pulse Resp B/P (MAP) Pulse Ox O2 Delivery O2 Flow Rate FiO2 01/06/19 04:32 90 Nasal Cannula 6.0 01/06/19 04:30 98 126/72 (90) 01/06/19 02:02 28 01/06/19 01:40 97.4 Laboratory Data Labs 24H Laboratory Tests 2 01/06/19 01:45: Immature Granulocyte % (Auto) 0.9, White Blood Count 12.7H, Red Blood Count 4.59, Hemoglobin 13.1, Hematocrit 43.4, Mean Corpuscular Volume 94.6, Mean Corpuscular Hemoglobin 28.5, Mean Corpuscular Hemoglobin Concent 30.2L, Red Cell Distribution Width 14.9H, Platelet Count 446, Neutrophils (%) (Auto) 73.9H, Lymphocytes (%) (Auto) 14.6L, Monocytes (%) (Auto) 9.1H, Eosinophils (%) (Auto) 0.9, Basophils (%) (Auto) 0.6, Neutrophils # (Auto) 9.4H, Lymphocytes # (Auto) 1.9, Monocytes # (Auto) 1.2H, Eosinophils # (Auto) 0.1, Basophils # (Auto) 0.1, Nucleated Red Blood Cells % (auto) 0.0, Anion Gap 8, Glomerular Filtration Rate > 60.0, Lactic Acid Level 0.8, Calcium Level 9.0, Aspartate Amino Transf (AST/SGOT) 32, Alanine Aminotransferase (ALT/SGPT) 19, Alkaline Phosphatase 108, Total Bilirubin 0.4, Direct Bilirubin < 0.1, Total Creatine Kinase 74, Creatine Kinase MB 1.3, Creatine Kinase MB Relative Index 1.76, Troponin I < 0.02, LJ-Zne-U-Type Natriuretic Peptide 161H, Total Protein 6.9, Albumin 3.2, Albumin/Globulin Ratio 0.86L, Thyroid Stimulating Hormone (TSH) 0.986, Thyroxine (T4) 7.1 01/06/19 01:52: Blood Gas Bicarbonate Standard 30.1H, Arterial Blood pH 7.232*L, Arterial Blood Partial Pressure CO2 89.7*H, Arterial Blood Partial Pressure O2 221.8H, Arterial Blood Total CO2 39.6H, Arterial Blood HCO3 36.9H, Arterial Blood Base Excess 6.2H, Arterial Blood Oxygen Saturation 98.9 01/06/19 03:35: Blood Gas Bicarbonate Standard 29.7H, Arterial Blood pH 7.318L, Arterial Blood Partial Pressure CO2 71.0*H, Arterial Blood Partial Pressure O2 28.7*L, Arterial Blood Total CO2 37.8H, Arterial Blood HCO3 35.6H, Arterial Blood Base Excess 7.0H, Arterial Blood Oxygen Saturation 53.5L CBC/BMP Laboratory Tests 01/06/19 01:45 Red Blood Count 4.59, Mean Corpuscular Volume 94.6, Mean Corpuscular Hemoglobin 28.5, Mean Corpuscular Hemoglobin Concent 30.2 L, Red Cell Distribution Width 14.9 H, Neutrophils (%) (Auto) 73.9 H, Lymphocytes (%) (Auto) 14.6 L, Monocytes (%) (Auto) 9.1 H, Eosinophils (%) (Auto) 0.9, Basophils (%) (Auto) 0.6, Neutrophils # (Auto) 9.4 H, Lymphocytes # (Auto) 1.9, Monocytes # (Auto) 1.2 H, Eosinophils # (Auto) 0.1, Basophils # (Auto) 0.1 Microbiology Microbiology 01/06/19 Blood Culture, Received Pending 01/06/19 Blood Culture, Received Pending Home Medications Scheduled Aripiprazole (Abilify) 5 Mg Tablet, 2.5 MG PO QHS Aspirin (Aspirin EC) 81 Mg Tabec, 81 MG PO DAILY Atorvastatin Calcium (Lipitor) 80 Mg Tab, 80 MG PO QHS Bisoprolol Fumarate (Bisoprolol Fumarate) 5 Mg Tab, 2.5 MG PO DAILY Cetirizine HCl (Cetirizine HCl) 5 Mg Tablet, 5 MG PO DAILY Dapagliflozin Propanediol (Farxiga) 10 Mg Tablet, 10 MG PO DAILY Ergocalciferol (Vitamin D2) (Drisdol) 50,000 Unit Cap, 50,000 UNIT PO 1XWK FRIDAYS Fluticasone Propion/Salmeterol (Advair Hfa 230-21 Mcg Inhaler) 12 Gm Hfa.aer.ad, 2 PUFF INH BID Fluticasone Propionate (Flonase Allergy Relief) 50 Mcg/Act Spr, 1 SPRAY NA DAILY Furosemide (Furosemide) 40 Mg Tablet, 40 MG PO DAILY Gabapentin (Gabapentin) 800 Mg Tab, 800 MG PO BID Levothyroxine Sodium (Levoxyl) 25 Mcg Tab, 25 MCG PO DAILY Metformin HCl (Metformin HCl) 1,000 Mg Tab, 1,000 MG PO BID Pantoprazole Sodium (Pantoprazole Sodium) 40 Mg Tab, 40 MG PO DAILY Potassium Chloride (Potassium Chloride) 8 Meq Tablet.er, 8 MEQ PO DAILY Prednisone (Prednisone) 5 Mg Tablet, 5 MG PO DAILY Prochlorperazine Maleate (Prochlorperazine Maleate) 10 Mg Tablet, 10 MG PO DAILY Sitagliptin Phosphate (Januvia) 100 Mg Tablet, 100 MG PO DAILY Scheduled PRN Albuterol Sulfate (Ventolin Hfa) 108 Mcg/Act Aer, 2 PUFFS INH Q4H PRN for SHORTNESS OF BREATH Benzonatate (Benzonatate) 100 Mg Capsule, 100 MG PO TID PRN for COUGH Hydrocodone/Acetaminophen ([place] 7.5-325 Tablet) 1 Each Tablet, 1 TAB PO BID PRN for PAIN Hydroxyzine Pamoate (Hydroxyzine Pamoate) 25 Mg Capsule, 25 MG PO TID PRN for ANXIETY Ipratropium/Albuterol Sulfate (Iprat-Albut 0.5-3(2.5) mg/3 ml) 3 Ml Ampul.neb, 1 INHALATION IN QID PRN for SHORTNESS OF BREATH Nystatin (Nystatin Powder) 15 Gm Powder, 1 DOSE TOP QHS PRN for ITCH/RASH USES UNDER BREASTS Allergies Coded Allergies: Cat Dander (Verified Allergy, Unknown, 01/06/19) Dust (Verified Allergy, Unknown, 01/06/19) A-FIB/CHADSVASC A-FIB History Current/History of A-Fib/PAF?: No Current PO Anticoag Therapy: No JET REEDER MD Jan 06, 2019 04:38
[2019-01-06] MEDS ORDERED: ALBUTEROL SULFATE 2.5 MG/0.5 ML INH NEB SOLN NEB PRN (04:45)
[2019-01-06] MEDS ORDERED: CETI5TAB2 PO (04:57)
[2019-01-06] MEDS ORDERED: BENZ-18 PO (04:57)
[2019-01-06] MEDS ORDERED: FUROSEMIDE 40 MG/4 ML VIAL (J1940) IV ONE (05:45)
[2019-01-06] MEDS ORDERED: DEXTROSE 50% 50 ML SYRINGE IV PRN (05:45)
[2019-01-06] MEDS ORDERED: ANEXSIA, NORCO 7.5MG/325MG TABLET(HYDROCODONE/APAP) PO PRN (05:45)
[2019-01-06] MEDS ORDERED: AZITHROMYCIN INJ 500 MG, VIAL MATE ADAPTER 1 EACH in D5W 250 ML IV SCH (06:00)
[2019-01-06] MEDS: LEVOTHYROXINE 25MCG TABLET (0.025MG) PO SCH (06:35)
[2019-01-06 07:14] LABS: HEMOGLOBIN A1c 8.7 %
[2019-01-06] MEDS: HumaLOG INSULIN (NovoLOG) PER UNIT SC SCH ×3 (08:39→18:06)
[2019-01-06] MEDS: hydrOXYzine 25 MG TAB PO PRN ×2 (08:40→20:26)
[2019-01-06] MEDS: BISOPROLOL FUMARATE 5 MG TAB PO SCH (08:40)
[2019-01-06] MEDS: PANTOPRAZOLE 40MG TAB (PROTONIX) PO SCH (08:41)
[2019-01-06] MEDS: predniSONE 20 MG TAB PO SCH (08:41)
[2019-01-06] MEDS: HEPARIN SOD (PORCINE) 5000 UNITS/ML VIAL SC SCH ×2 (08:44→20:26)
--- NOTE | 2019-01-06 08:53 | REP ---
Portable chest x-ray: Single view. History: Dyspnea and cough. Comparison study: December 24, 2018. Findings: EKG monitoring electrodes overlie the chest. The lungs are well inflated and clear. Heart is not enlarged. There is minimal dextroconvex thoracic curvature again noted. Pulmonary vasculature is somewhat increased. Pleural angles are sharp. No infiltrate is seen. Impression: Cephalization. Otherwise no acute disease. Electronically Signed by Ponce Higgins MD 01/06/2019 08:44 A
[2019-01-06] MEDS: FUROSEMIDE 40 MG TAB PO SCH (11:19)
[2019-01-06] MEDS: GABAPENTIN 400 MG CAP PO SCH ×2 (11:19→20:25)
[2019-01-06] MEDS: ASPIRIN 81 MG ENTERIC TAB PO SCH (11:19)
[2019-01-06] MEDS: BENZONATATE 100 MG CAP PO SCH ×2 (11:19→20:25)
[2019-01-06] MEDS: FLUTICASONE PROP 0.05% NASAL SPRAY 16 GM (FLONASE) SCH (12:36)
[2019-01-06] MEDS: PROCHLORPERAZINE 5 MG TAB (S0183) PO SCH (12:37)
[2019-01-06] MEDS: CETIRIZINE (ZyrTEC) 5 MG/5 ML UDC DYE FREE PO SCH (12:37)
--- NOTE | 2019-01-06 14:10 | IPNPDOC ---
Date Seen The patient was seen on 01/06/19. Progress Note SUBJECTIVE: Patient is a 63-year-old female who presented to the emergency department with increased shortness of breath and heavy feeling in her chest for about 5 hours at home. She has a history of COPD and is noncompliant with her BiPAP machine at home. In the emergency room, she received several nebulizer treatments and Solu-Medrol, but continued to feel short of breath. Patient was seen and examined this morning in her interim room in the ED, sitting up comfortably in bed. Patient states she is feeling some improvement this morning. She states heavy feelings in her chest did resolve, and she does feel less short of breath at rest. She states she does have her BiPAP at home, and will use it as needed. She denies any additional symptoms including new headaches, vision change, lightheadedness, cough, wheezing, nausea, vomiting, abdominal pain, diarrhea, constipation, increased leg swelling. OBJECTIVE PHYSICAL EXAMINATION: VITAL SIGNS: Please see below. GENERAL: Alert, comfortable, sitting up in bed, no acute respiratory distress, on oxygen via nasal cannula HEENT: PERRLA, EOMI, moist mucous membranes CARDIOVASCULAR:, Regular rate and rhythm, normal S1, S2, no murmurs, rubs, gallops. RESPIRATORY:. Decreased breath sounds bilaterally without any adventitious lung sounds auscultated. ABDOMINAL:, Soft, nontender, nondistended, bowel sounds present, no hepatosplen omegaly or masses palpated EXTREMITIES:. 1+ pitting edema in bilateral lower extremities, pulses 2+/4 in the radial and posterior tibial arteries NEUROLOGICAL: Alert and oriented 3 to person, place and time. Cranial nerves 212 grossly intact. No focal deficits appreciated. PSYCHOLOGICAL: Mood and affect normal LABORATORY DATA, IMAGING STUDIES, MICROBIOLOGY: Please see below. ASSESSMENT AND PLAN: This is a 63-year-old female with PMH of COPD, CHF, hypertension, obesity hypoventilation syndrome, and BiPAP noncompliance who was admitted for acute onset shortness of breath. PROBLEMS: 1.. Acute exacerbation of COPD Patient received multiple DuoNeb treatments and was started on Solu-Medrol. Continue oxygen supplementation, titrate to saturation above 88%, BiPAP as needed. Continue home inhalers. May benefit from pulmonary rehabilitation on discharge. 2. CHF. BNP is 161, however, considering her obesity this may be a poor marker of her CHF. Chest X-ray does show some increased pulmonary vasculature markings Given one dose of Lasix, may consider additional doses. Continue home medications 3. Hypertension. Continue home medications History of CAD status post OR. Cardiac enzyme profile negative. Continue home medications Anxiety and mood disorder. Continue home medication Diabetes mellitus. Hemoglobin A1c was 8.7 Sliding scale insulin and hypoglycemia protocol while in the hospital, hold home diabetic medications Chronic pain. Continue home medication Hypothyroidism. Continue home medications Obesity BMI 33, complicates care DISPOSITION: Admitted to inpatient PCU, pending clinical improvement I saw and evaluated the patient. I agree with the findings and plan of care as documented in the above note VS, I&O, 24H, Fishbone Vital Signs/I&O Vital Signs Date Time Temp Pulse Resp B/P (MAP) Pulse Ox O2 Delivery O2 Flow Rate FiO2 01/06/19 10:46 96.7 91 19 119/60 (79) 97 Nasal Cannula 6.0 Laboratory Data 24H LABS Laboratory Tests 2 01/06/19 01:45: Immature Granulocyte % (Auto) 0.9, White Blood Count 12.7H, Red Blood Count 4.5 9, Hemoglobin 13.1, Hematocrit 43.4, Mean Corpuscular Volume 94.6, Mean Corpuscular Hemoglobin 28.5, Mean Corpuscular Hemoglobin Concent 30.2L, Red Cell Distribution Width 14.9H, Platelet Count 446, Neutrophils (%) (Auto) 73.9H, Lymphocytes (%) (Auto) 14.6L, Monocytes (%) (Auto) 9.1H, Eosinophils (%) (Auto) 0.9, Basophils (%) (Auto) 0.6, Neutrophils # (Auto) 9.4H, Lymphocytes # (Auto) 1.9, Monocytes # (Auto) 1.2H, Eosinophils # (Auto) 0.1, Basophils # (Auto) 0.1, Nucleated Red Blood Cells % (auto) 0.0, Anion Gap 8, Glomerular Filtration Rate > 60.0, Estimated Mean Plasma Glucose 203H, Hemoglobin A1c 8.7, Lactic Acid Level 0.8, Calcium Level 9.0, Aspartate Amino Transf (AST/SGOT) 32, Alanine Aminotransferase (ALT/SGPT) 19, Alkaline Phosphatase 108, Total Bilirubin 0.4, Direct Bilirubin < 0.1, Total Creatine Kinase 74, Creatine Kinase MB 1.3, Creatine Kinase MB Relative Index 1.76, Troponin I < 0.02, ET-Box-F-Type Natriuretic Peptide 161H, Total Protein 6.9, Albumin 3.2, Albumin/Globulin Ratio 0.86L, Thyroid Stimulating Hormone (TSH) 0.986, Thyroxine (T4) 7.1 01/06/19 01:52: Blood Gas Bicarbonate Standard 30.1H, Arterial Blood pH 7.232*L, Arterial Blood Partial Pressure CO2 89.7*H, Arterial Blood Partial Pressure O2 221.8H, Arterial Blood Total CO2 39.6H, Arterial Blood HCO3 36.9H, Arterial Blood Base Excess 6.2H, Arterial Blood Oxygen Saturation 98.9 01/06/19 03:35: Blood Gas Bicarbonate Standard 29.7H, Arterial Blood pH 7.318L, Arterial Blood Partial Pressure CO2 71.0*H, Arterial Blood Partial Pressure O2 28.7*L, Arterial Blood Total CO2 37.8H, Arterial Blood HCO3 35.6H, Arterial Blood Base Excess 7.0H, Arterial Blood Oxygen Saturation 53.5L 01/06/19 08:23: Bedside Glucose (Misc Panel) 194H CBC/BMP Laboratory Tests 01/06/19 01:45 Red Blood Count 4.59, Mean Corpuscular Volume 94.6, Mean Corpuscular Hemoglobin 28.5, Mean Corpuscular Hemoglobin Concent 30.2 L, Red Cell Distribution Width 14.9 H, Neutrophils (%) (Auto) 73.9 H, Lymphocytes (%) (Auto) 14.6 L, Monocytes (%) (Auto) 9.1 H, Eosinophils (%) (Auto) 0.9, Basophils (%) (Auto) 0.6, Neutrophils # (Auto) 9.4 H, Lymphocytes # (Auto) 1.9, Monocytes # (Auto) 1.2 H, Eosinophils # (Auto) 0.1, Basophils # (Auto) 0.1 Microbiology Microbiology 01/06/19 Blood Culture, Received Pending 01/06/19 Blood Culture, Received Pending JOEL SHERMAN PGY-1 Jan 06, 2019 11:18 GUSTAVO MONK MD Jan 08, 2019 16:14
[2019-01-06] MEDS ORDERED: SLF 3 ML SYR IV PRN (17:00)
[2019-01-06] MEDS: SLF 3 ML SYR IV SCH (20:26)
[2019-01-06] MEDS ORDERED: HumaLOG INSULIN (NovoLOG) PER UNIT SC SCH (21:00)
[2019-01-06] MEDS ORDERED: ATORVASTATIN 20 MG TAB PO SCH (21:00)
[2019-01-07] MEDS: IPRATROPIUM 0.5MG/ALBUTEROL 2.5MG INH SOL UD 3ML (DUONEB)(J7620) NEB SCH ×3 (00:15→13:46)
[2019-01-07 00:41] VITALS: BP 125/61
[2019-01-07 04:00] VITALS: BP 134/78
[2019-01-07 05:39] LABS: MEAN CORPUSCULAR HEMOGLOBIN 27.8 pg (27.0-33.0); MEAN CORPUSCULAR VOLUME 92.8 fl (80.0-96.0); PLATELET COUNT, AUTOMATED 433 10^3/uL (150-450); RED BLOOD COUNT 3.88 10^6/uL (4.00-5.40); WHITE BLOOD COUNT 12.1 10^3/uL (4.0-10.0)
[2019-01-07 05:43] LABS: HEMOGLOBIN 10.8 g/dl (12.0-15.5)
[2019-01-07 05:54] LABS: ABG BASE EXCESS 10.2 (-2.0-2.0); ABG HCO3 36.6 MEQ/L (22.0-26.0); ABG O2 SATURATION 96.6 % (95.0-99.0); ABG PARTIAL PRESSURE CO2 58.6 mmHg (35.0-45.0); ABG PARTIAL PRESSURE O2 91.4 mmHg (75.0-100.0); ABG STANDARD HCO3 33.9 MEQ/L (22.0-26.0); ABG TOTAL CO2 38.4 MEQ/L (23.0-31.0); ABG pH (ARTERIAL) 7.413 UNITS (7.350-7.450)
[2019-01-07] MEDS: SLF 3 ML SYR IV SCH (05:54)
[2019-01-07] MEDS: LEVOTHYROXINE 25MCG TABLET (0.025MG) PO SCH (05:54)
--- NOTE | 2019-01-07 05:55 | ECGEPIP ---
[facility] - ED Test Date: 2019-01-06 Pat Name: MIGUEL NAQVI Department: Room: [place] [address] Gender: Female Staffing Analyst: MANNY : 1955 Requested By: Gamal Townsend Order Number: [id number] Reading MD: Gamal Neal Measurements Intervals Leopold Rate: 90 P: 70 ID: [id number] QRS: 72 QRSD: 102 T: 77 QT: 362 QTc: 444 Interpretive Statements SINUS RHYTHM POSSIBLE LEFT ATRIAL ENLARGEMENT POOR R WAVE PROGRESSION NSTTW ABNORMALITIES SIMILAR TO 12/24/18 Electronically Signed on 01-07-2019 5:55:16 EDT by Gamal Neal
[2019-01-07 06:05] LABS: BLOOD UREA NITROGEN 13 MG/DL (7-18); CALCIUM LEVEL 8.7 MG/DL (8.8-10.2); CARBON DIOXIDE LEVEL 39 MEQ/L (21-32); CHLORIDE LEVEL 95 MEQ/L (98-107); GLOMERULAR FILTRATION RATE > 60.0 (>45); GLUCOSE, FASTING 156 MG/DL (70-100); POTASSIUM SERUM 3.2 MEQ/L (3.5-5.1); SODIUM LEVEL 139 MEQ/L (136-145)
[2019-01-07] MEDS ORDERED: POTASSIUM CHLORIDE 10 MEQ SR TABLET PO ONE (07:15)
[2019-01-07] MEDS: HumaLOG INSULIN (NovoLOG) PER UNIT SC SCH ×2 (07:49→11:47)
[2019-01-07 07:52] VITALS: BP 143/75
[2019-01-07] MEDS: predniSONE 20 MG TAB PO SCH (07:52)
[2019-01-07] MEDS: PROCHLORPERAZINE 5 MG TAB (S0183) PO SCH (07:52)
[2019-01-07] MEDS: BISOPROLOL FUMARATE 5 MG TAB PO SCH (07:52)
[2019-01-07] MEDS: ASPIRIN 81 MG ENTERIC TAB PO SCH (07:53)
[2019-01-07] MEDS: PANTOPRAZOLE 40MG TAB (PROTONIX) PO SCH (07:53)
[2019-01-07] MEDS: BENZONATATE 100 MG CAP PO SCH (07:53)
[2019-01-07] MEDS: FLUTICASONE PROP 0.05% NASAL SPRAY 16 GM (FLONASE) SCH (07:54)
[2019-01-07] MEDS: FUROSEMIDE 40 MG TAB PO SCH (07:54)
[2019-01-07] MEDS: GABAPENTIN 400 MG CAP PO SCH (07:54)
[2019-01-07] MEDS: CETIRIZINE (ZyrTEC) 5 MG/5 ML UDC DYE FREE PO SCH (07:54)
[2019-01-07] MEDS: HEPARIN SOD (PORCINE) 5000 UNITS/ML VIAL SC SCH (07:54)
[2019-01-07 08:00] VITALS: BP 143/75; O2SAT 89
[2019-01-07 09:00] VITALS: O2SAT 88
[2019-01-07 10:00] VITALS: O2SAT 93
[2019-01-07] MEDS ORDERED: FUROSEMIDE 40 MG TAB PO ONE (10:00)
--- NOTE | 2019-01-07 11:29 | DS.PDOC ---
Discharge Summary General Date of Admission Jan 06, 2019 at 04:32 Date of Discharge 01/06/2019 Primary Care Physician: Natalie Antony Attending Physician: GUSTAVO MONK MD Discharge Summary PROCEDURES PERFORMED DURING STAY: None. ADMITTING DIAGNOSES: 1. Acute exacerbation of COPD 2. CHF. 3. Hypertension. 4. History of CAD 5. Anxiety and mood disorder. 6. DM. 7. Chronic pain 8. Obesity DISCHARGE DIAGNOSES: 1. COPD 2. CHF. 3. Hypertension. 4. History of CAD 5. Anxiety and mood disorder. 6. DM. 7. Chronic pain 8. Obesity COMPLICATIONS/CHIEF COMPLAINT: Copd Exacerbation. HISTORY OF PRESENT ILLNESS: Jennifer Zavala is a 63-year-old female who presented to the emergency room via ambulance after calling EMS due to 5 hours of shortness of breath without relief. She also reported a heavy feeling in her chest, which did not resolve over the 5 hours at home. She denied any missed doses of medications or noncompliance with her BiPAP. She has had several hospitalizations this year for acute exacerbations of COPD. She did receive nebulizer treatments and Solu-Medrol in the ED, but continues to require oxygen supplementation above her baseline home value which she does not use at home due to sustained shortness of breath. HOSPITAL COURSE: Patient was admitted to PCU. Continue treatment for her acute exacerbation of COPD with scheduled DuoNeb treatments and Solu-Medrol, as well as her home inhalers and BiPAP as needed. She also appeared to be fluid overloaded, she was given additional doses of Lasix to help with diuresis, and placed on a salt restricted, fluid restricted diet. On the second day of her discharge, the patient reported feeling back to her baseline breathing, and was no longer requiring supplemental oxygen above her baseline home value. She was also found to diuresis about 2.5 L with improvement of both her shortness of breath and leg swelling. Dietary consult was put in to discuss fluid restriction and sodium restriction at home. On the day of discharge, patient was found to be stable and safe for discharge. DISCHARGE MEDICATIONS: Please see below. ALLERGIES: Please see below. PHYSICAL EXAMINATION ON DISCHARGE: VITAL SIGNS: Please see below. GENERAL: Alert, comfortable, sitting up in bed, no acute respiratory distress HEENT: PERRLA, EOMI, moist mucous membranes NECK: Supple, no lymphadenopathy CARDIOVASCULAR EXAMINATION: Regular rate and rhythm, normal S1, S2, no murmurs, rubs, gallops. RESPIRATORY EXAMINATION: Decreased breath sounds bilaterally without any adventitious lung sounds auscultated. ABDOMINAL EXAMINATION: Soft, nontender, nondistended, bowel sounds present, no hepatosplenomegaly or masses palpated EXTREMITIES: 1+ pitting edema in bilateral lower extremities, pulses 2+/4 in the radial and posterior tibial arteries SKIN: Intact, pink, warm, dry NEUROLOGICAL EXAMINATION: Alert and oriented 3 to person, place and time. Cranial nerves 212 grossly intact. No focal deficits appreciated. PSYCHIATRIC EXAMINATION: Mood and affect normal LABORATORY DATA: Please see below. IMAGING: CXR 01/06:Cephalization. Otherwise no acute disease. PROGNOSIS: Fair ACTIVITY: As tolerated DIET: Consistent carbohydrate diet with 2 L fluid restriction and 2 g salt restriction DISCHARGE PLAN: Home DISPOSITION: Home DISCHARGE INSTRUCTIONS: 1. Follow up with your PCP in 7-10 days 2. Focus on restricting your fluid intake and your sodium intake. 3. Continue with your home medications 4.If your symptoms return or your condition worsens, call your PCP or return to the emergency room for further evaluation ITEMS TO FOLLOWUP ON ON OUTPATIENT: 1. COPD exacerbation 2. Acute on chronic HF, consider increasing home dose of Lasix DISCHARGE CONDITION: Stable. I saw and evaluated the patient. I agree with the findings and plan of care as documented in the documenters note. I spent 45 minutes coordinating this patient's discharge. Vital Signs/I&Os Vital Signs Date Time Temp Pulse Resp B/P (MAP) Pulse Ox O2 Delivery O2 Flow Rate FiO2 01/07/19 10:35 93 4.0 01/07/19 10:00 Nasal Cannula 01/07/19 08:00 97.6 79 18 143/75 (97) I&O- Last 24 Hours up to 6 AM 01/07/19 06:00 Intake Total 2030 ml Output Total 4100 ml Balance -2070 ml Laboratory Data Labs 24H Laboratory Tests 2 01/06/19 12:13: Bedside Glucose (Misc Panel) 277H 01/06/19 16:37: Bedside Glucose (Misc Panel) 239H 01/06/19 20:07: Bedside Glucose (Misc Panel) 204H 01/07/19 05:00: Nucleated Red Blood Cells % (auto) 0.0, Anion Gap 5L, Glomerular Filtration Rate > 60.0, Blood Urea Nitrogen 13#, Creatinine 0.50L, Sodium Level 139, Potassium Level 3.2#L, Chloride Level 95L, Carbon Dioxide Level 39H, Calcium Level 8.7L, Magnesium Level 2.0 01/07/19 05:45: Blood Gas Bicarbonate Standard 33.9H, Arterial Blood pH 7.413, Arterial Blood Partial Pressure CO2 58.6H, Arterial Blood Partial Pressure O2 91.4, Arterial Blood Total CO2 38.4H, Arterial Blood HCO3 36.6H, Arterial Blood Base Excess 10.2H, Arterial Blood Oxygen Saturation 96.6 CBC/BMP Laboratory Tests 01/07/19 05:00 Red Blood Count 3.88 L, Mean Corpuscular Volume 92.8, Mean Corpuscular Hemoglobin 27.8, Mean Corpuscular Hemoglobin Concent 30.0 L, Red Cell Distribution Width 14.9 H, Calcium Level 8.7 L FSBS Laboratory Tests Test 01/06/19 12:13 01/06/19 16:37 01/06/19 20:07 Range/Units Bedside Glucose (Misc Panel) 277 239 204 80-115 MG/DL Microbiology Microbiology 01/06/19 Blood Culture - Preliminary, Resulted No growth after 24 hours . All specim... 01/06/19 Blood Culture - Preliminary, Resulted No growth after 24 hours . All specim... Discharge Medications Scheduled Aripiprazole (Abilify) 5 Mg Tablet, 2.5 MG PO QHS, (Reported) Aspirin (Aspirin EC) 81 Mg Tabec, 81 MG PO DAILY, (Reported) Atorvastatin Calcium (Lipitor) 80 Mg Tab, 80 MG PO QHS, (Reported) Bisoprolol Fumarate (Bisoprolol Fumarate) 5 Mg Tab, 2.5 MG PO DAILY, (Reported) Cetirizine HCl (Cetirizine HCl) 5 Mg Tablet, 5 MG PO DAILY, (Reported) Dapagliflozin Propanediol (Farxiga) 10 Mg Tablet, 10 MG PO DAILY, (Reported) Ergocalciferol (Vitamin D2) (Drisdol) 50,000 Unit Cap, 50,000 UNIT PO 1XWK, (Reported) FRIDAYS Fluticasone Propion/Salmeterol (Advair Hfa 230-21 Mcg Inhaler) 12 Gm Hfa.aer.ad, 2 PUFF INH BID, (Reported) Fluticasone Propionate (Flonase Allergy Relief) 50 Mcg/Act Spr, 1 SPRAY NA DAILY, (Reported) Furosemide (Furosemide) 40 Mg Tablet, 40 MG PO DAILY, (Reported) Gabapentin (Gabapentin) 800 Mg Tab, 800 MG PO BID, (Reported) Levothyroxine Sodium (Levoxyl) 25 Mcg Tab, 25 MCG PO DAILY, (Reported) Metformin HCl (Metformin HCl) 1,000 Mg Tab, 1,000 MG PO BID, (Reported) Pantoprazole Sodium (Pantoprazole Sodium) 40 Mg Tab, 40 MG PO DAILY, (Reported) Potassium Chloride (Potassium Chloride) 8 Meq Tablet.er, 8 MEQ PO DAILY, (Reported) Prednisone (Prednisone) 5 Mg Tablet, 5 MG PO DAILY, (Reported) Prochlorperazine Maleate (Prochlorperazine Maleate) 10 Mg Tablet, 10 MG PO DAILY, (Reported) Sitagliptin Phosphate (Januvia) 100 Mg Tablet, 100 MG PO DAILY, (Reported) Scheduled PRN Albuterol Sulfate (Ventolin Hfa) 108 Mcg/Act Aer, 2 PUFFS INH Q4H PRN for SHORTNESS OF BREATH, (Reported) Benzonatate (Benzonatate) 100 Mg Capsule, 100 MG PO TID PRN for COUGH, (Reported) Hydrocodone/Acetaminophen ([place] 7.5-325 Tablet) 1 Each Tablet, 1 TAB PO BID PRN for PAIN, (Reported) Hydroxyzine Pamoate (Hydroxyzine Pamoate) 25 Mg Capsule, 25 MG PO TID PRN for ANXIETY, (Reported) Ipratropium/Albuterol Sulfate (Iprat-Albut 0.5-3(2.5) mg/3 ml) 3 Ml Ampul.neb, 1 INHALATION IN QID PRN for SHORTNESS OF BREATH, (Reported) Nystatin (Nystatin Powder) 15 Gm Powder, 1 DOSE TOP QHS PRN for ITCH/RASH, (Reported) USES UNDER BREASTS Allergies Coded Allergies: Cat Dander (Verified Allergy, Unknown, 01/06/19) Dust (Verified Allergy, Unknown, 01/06/19) JOEL SHERMAN PGY-1 Jan 07, 2019 11:29 GUSTAVO MONK MD Jan 08, 2019 16:15
[2019-01-07] MEDS: hydrOXYzine 25 MG TAB PO PRN (11:46)
== END 2019-01-07 14:20 | disposition home or self-care (01) | DRG 190 ==
LOC: M ED 01:38 → M ED INP 04:32 → M PCU 11:02
PROVIDERS: ADMIT Internal Medicine; ATTEND Internal Medicine
DX: J44.1 Chronic obstructive pulmonary disease with (acute) exacerbation (principal); J96.22 Acute and chronic respiratory failure with hypercapnia; J96.21 Acute and chronic respiratory failure with hypoxia; I50.32 Chronic diastolic (congestive) heart failure; E66.2 Morbid (severe) obesity with alveolar hypoventilation; I11.0 Hypertensive heart disease with heart failure; I25.10 Atherosclerotic heart disease of native coronary artery without angina pectoris; I25.2 Old myocardial infarction; E78.5 Hyperlipidemia, unspecified; Z91.19 Patient's noncompliance with other medical treatment and regimen; K21.9 Gastro-esophageal reflux disease without esophagitis; F31.9 Bipolar disorder, unspecified; F41.9 Anxiety disorder, unspecified; J30.81 Allergic rhinitis due to animal (cat) (dog) hair and dander; M79.7 Fibromyalgia; M19.90 Unspecified osteoarthritis, unspecified site; E11.9 Type 2 diabetes mellitus without complications; E03.9 Hypothyroidism, unspecified; Z90.49 Acquired absence of other specified parts of digestive tract; Z87.891 Personal history of nicotine dependence; Z68.33 Body mass index [BMI] 33.0-33.9, adult; Z79.82 Long term (current) use of aspirin; Z79.899 Other long term (current) drug therapy; Z79.84 Long term (current) use of oral hypoglycemic drugs; Z99.81 Dependence on supplemental oxygen

== ENCOUNTER 2019-01-21 14:02 | Inpatient (IN) | payer MEDICARE, MEDICAID ==
[~2019-01-21] VITALS: Ht 167.6 cm; Wt 84.4 kg
[~2019-01-21 14:02] MED LIST changes: +BENZ200C70 PO; +BISO5TAB14 PO; -BISO5TAB5 PO; -BUPR300T34 PO; +BUPR300T92 PO; +CETI5SOL3 PO; -FLON1SPR; +FLON1SPR NARES; -IPRA0.00 IN; -OMEP40CA2 PO; +OMEP40CA97 PO; +SENN-53 PO; -SENN1TAB40 PO; -SULF1TAB72 PO; +SULF400T14 PO
[2019-01-21] MEDS ORDERED: MIDAZOLAM INJ 2 MG/2 ML VIAL (J2250) IV STA (14:31)
[2019-01-21 14:51] LABS: BASO # 0.1 10^3/uL (0.0-0.2); BASO % 0.6 % (0.0-1.0); EOS % 0.1 % (0.0-3.0); HEMATOCRIT 46.4 % (36.0-47.0); HEMOGLOBIN 13.6 g/dl (12.0-15.5); LYMPH # 1.6 10^3/uL (1.5-4.5); LYMPH % 9.1 % (24.0-44.0); MEAN CORPUSCULAR HEMOGLOBIN 27.6 pg (27.0-33.0); MEAN CORPUSCULAR HGB CONC 29.3 g/dl (32.0-36.5); MEAN CORPUSCULAR VOLUME 94.1 fl (80.0-96.0); MONO # 1.1 10^3/uL (0.0-0.8); MONO % 6.4 % (0.0-5.0); NEUTROPHILS # 14.3 10^3/uL (1.8-7.7); NEUTROPHILS % 82.5 % (36.0-66.0); PLATELET COUNT, AUTOMATED 512 10^3/uL (150-450); RED BLOOD COUNT 4.93 10^6/uL (4.00-5.40); WHITE BLOOD COUNT 17.3 10^3/uL (4.0-10.0)
[2019-01-21 15:01] LABS: INR 0.97; PROTHROMBIN TIME 12.6 SECONDS (11.8-14.0)
--- NOTE | 2019-01-21 15:01 | REP ---
Portable chest x-ray: Single view. History: Dyspnea and cough. Comparison chest x-ray: January 06, 2019. Findings: Oxygen delivery tubing and EKG electrodes are seen. No definite infiltrate is seen. Pleural angles are sharp. The heart is not felt to be enlarged. Impression: No infiltrate seen. Electronically Signed by Ponce Higgins MD 01/21/2019 04:04 P
[2019-01-21 15:15] LABS: ALBUMIN 3.6 GM/DL (3.2-5.2); ALT/SGPT 21 U/L (12-78); BILIRUBIN,DIRECT 0.1 MG/DL (0.0-0.2); BILIRUBIN,TOTAL 0.5 MG/DL (0.2-1.0); BLOOD UREA NITROGEN 10 MG/DL (7-18); CALCIUM LEVEL 9.3 MG/DL (8.8-10.2); CARBON DIOXIDE LEVEL 38 MEQ/L (21-32); CHLORIDE LEVEL 94 MEQ/L (98-107); CK-MB VALUE MASS 3.3 NG/ML (<3.6); CPK CREATINE PHOSPHOKINASE 68 U/L (26-192); CREATININE FOR GFR 0.34 MG/DL (0.55-1.30); GLOMERULAR FILTRATION RATE > 60.0 (>45); GLUCOSE, FASTING 135 MG/DL (70-100); MB/CK RELATIVE INDEX 4.85 (< OR =4); NT-PRO BNP 325 PG/ML (<125); POTASSIUM SERUM 4.2 MEQ/L (3.5-5.1); SODIUM LEVEL 140 MEQ/L (136-145); THYROID STIMULATING HORMONE 0.547 uIU/ML (0.358-3.740); TOTAL PROTEIN 7.5 GM/DL (6.4-8.2); TROPONIN I < 0.02 NG/ML (< 0.10)
[2019-01-21] MEDS ORDERED: CETI-14 PO (17:03)
[2019-01-21] MEDS ORDERED: DEXTROSE 50% 50 ML SYRINGE IV PRN (17:30)
[2019-01-21] MEDS ORDERED: GLUCAGON FOR INJ 1 MG VIAL (J1610) SC PRN (17:30)
[2019-01-21] MEDS ORDERED: hydrOXYzine 25 MG TAB PO PRN (17:30)
[2019-01-21] MEDS ORDERED: GLUCOSE 4 GM CHEW TABLET PO PRN (17:30)
[2019-01-21] MEDS ORDERED: IPRATROPIUM 0.5MG/ALBUTEROL 2.5MG INH SOL UD 3ML (DUONEB)(J7620) NEB PRN (17:30)
[2019-01-21] MEDS: HumaLOG INSULIN (NovoLOG) PER UNIT SC SCH (17:30)
[2019-01-21] MEDS ORDERED: BENZONATATE 100 MG CAP PO PRN (17:30)
--- NOTE | 2019-01-21 17:36 | HPEPDOC ---
General Date of Admission Date of Service: Jan 21, 2019 Primary Care Physician: Natalie Antony Chief Complaint The patient is a 63-year-old female admitted with a reason for visit of SOB. Source: Patient, RN/MD History of Present Illness 63 y/o F with extensive PMH however significant for end stage COPD with chronic hypoxic and hypercarbic respiratory failure, active tobacco user, Chronic diastolic CHF, SUYAPA noncompliant with BIPAP, HTN, HLD, GERD, hypothyroidism, obesity presents to ED with acute respiratory distress and AMS. Per ED team EMS found patient in respiratory distress started nebulizers and decadron and brought her to the ED. Patient states that over the past 1 day she has been having progressively worsening dyspnea and wheezing but denies any fevers, chills, diaphoresis, vision changes, chest pain, palpitations, change in her chronic cough, abdominal pain, n/v/d, focal weakness, worsening of chronic LE edema, sick contacts, travel, recent drug use. She does endorse dysuria. She states compliance to all meds. In the ED patient was lethargic placed on BIPAP, required anxiolytic. Home Medications Scheduled Aripiprazole (Abilify) 5 Mg Tablet, 2.5 MG PO QHS, (Reported) Aspirin (Aspirin EC) 81 Mg Tabec, 81 MG PO DAILY, (Reported) Atorvastatin Calcium (Lipitor) 80 Mg Tab, 80 MG PO QHS, (Reported) Bisoprolol Fumarate (Bisoprolol Fumarate) 5 Mg Tab, 2.5 MG PO DAILY, (Reported) Cetirizine HCl (Cetirizine HCl) 10 Mg Tablet, 10 MG PO DAILY, (Reported) Dapagliflozin Propanediol (Farxiga) 10 Mg Tablet, 10 MG PO DAILY, (Reported) Ergocalciferol (Vitamin D2) (Drisdol) 50,000 Unit Cap, 50,000 UNIT PO 1XWK, (Reported) FRIDAYS Fluticasone Propion/Salmeterol (Advair Hfa 230-21 Mcg Inhaler) 12 Gm Hfa.aer.ad, 2 PUFF INH BID, (Reported) Fluticasone Propionate (Flonase Allergy Relief) 50 Mcg/Act Spr, 1 SPRAY NARES DAILY, (Reported) Furosemide (Furosemide) 40 Mg Tablet, 40 MG PO DAILY, (Reported) Gabapentin (Gabapentin) 800 Mg Tab, 800 MG PO BID, (Reported) Levothyroxine Sodium (Levoxyl) 25 Mcg Tab, 25 MCG PO DAILY, (Reported) Metformin HCl (Metformin HCl) 1,000 Mg Tab, 1,000 MG PO BID, (Reported) Pantoprazole Sodium (Pantoprazole Sodium) 40 Mg Tab, 40 MG PO DAILY, (Reported) Potassium Chloride (Potassium Chloride) 8 Meq Tablet.er, 8 MEQ PO DAILY, (Reported) Prednisone (Prednisone) 5 Mg Tablet, 5 MG PO DAILY, (Reported) Prochlorperazine Maleate (Prochlorperazine Maleate) 10 Mg Tablet, 10 MG PO DAILY, (Reported) Sitagliptin Phosphate (Januvia) 100 Mg Tablet, 100 MG PO DAILY, (Reported) Scheduled PRN Albuterol Sulfate (Ventolin Hfa) 108 Mcg/Act Aer, 2 PUFFS INH Q4H PRN for SHORTNESS OF BREATH, (Reported) Benzonatate (Benzonatate) 100 Mg Capsule, 100 MG PO TID PRN for COUGH, (Reported) Hydrocodone/Acetaminophen ([place] 7.5-325 Tablet) 1 Each Tablet, 1 TAB PO BID PRN for PAIN, (Reported) Hydroxyzine Pamoate (Hydroxyzine Pamoate) 25 Mg Capsule, 25 MG PO TID PRN for ANXIETY, (Reported) Ipratropium/Albuterol Sulfate (Iprat-Albut 0.5-3(2.5) mg/3 ml) 3 Ml Ampul.neb, 1 VIAL INH QID PRN for SHORTNESS OF BREATH, (Reported) Nystatin (Nystatin Powder) 15 Gm Powder, 1 DOSE TOP QHS PRN for ITCH/RASH, (Reported) USES UNDER BREASTS Allergies Coded Allergies: Cat Dander (Verified Allergy, Unknown, 01/21/19) Dust (Verified Allergy, Unknown, 01/21/19) Past Medical History Medical History Chronic respiratory failure with hypoxia and hypercarbia Chronic Diastolic CHF COPD on Home O2 SUYAPA on BIPAP, non-compliant Major depressive disorder Bipolar, anxiety disorder, adjustment disorder History of Cannabis use disorder. Nonobstructive Coronary artery disease with history of NSTEMI 2012 Degenerative disc disease with chronic musculoskeletal pain and muscle spasm. Chronic low back pain on narcotics Sacroiliac joint pain and myofascial pain. Fibromyalgia. Osteoarthritis Gastroesophageal reflux disease (GERD). Hypertension. Hyperlipidemia Diabetes Obesity Hypothyroidism. Adrenal nodule on the right, seems to be adrenal adenoma. Lung nodule Surgical History Cholecystectomy. Cardiac catheterization without stent. History of breast biopsy. Dilation and curettage. Tubal ligation. Tonsillectomy. Exploratory laparotomy. Family History father diabetes and of [place] mother lung cancer Social History * Smoker: current smoker Smoker: Extensive Tobacco history, endorses continued tobacco use. 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 A-FIB/CHADSVASC A-FIB History Current/History of A-Fib/PAF?: No Review of Systems Constitutional: Denies: Chills, Fever, Malaise Eyes: Denies: Pain, Vision change ENT: Denies: Head Aches, Ear Pain, Dysphagia Skin: Denies: Rash Pulmonary: Reports: Dyspnea, Cough; Denies: Pleuritic Chest Pain Cardiovascular: Denies: Chest Pain, Palpitations, Orthopnea, Edema Gastrointestinal: Denies: Nausea, Vomiting, Abdominal Pain, Diarrhea, Constipation Genitourinary: Reports: Dysuria, Frequency; Denies: Incontinence Hematologic: Denies: Bruising, Bleeding Excessively Endocrine: Denies: Polydipsia Musculoskeletal: Reports: Back Pain; Denies: Neck Pain Neurological: Denies: Weakness, Numbness Psych: Reports: Anxiety; Denies: Depression, Thoughts of Self Harm Physical Examination General Exam: Positive: Alert, Cooperative, Moderate Distress Eye Exam: Positive: EOMI Neuro Exam: Positive: Normal Speech Other physical findings GEN: unkempt female, moderate respiratory distress on BIPAP HEENT: EOMI, MM are dry, lips chapped Cardio: s1/s2 present, borderline tachycardia, no m/r/g Lungs: decreased air entry b/l, b/l expiratory wheezing, no retractions. Abd: obese, soft, nt, nd, bs present Ext: b/l 1+ pitting edema. Moving all extremities Neuro: A&Ox3, sensation grossly intact Psych: normal mood and affect Skin: warm, dry, no rashes Vital Signs Vital Signs Date Time Temp Pulse Resp B/P (MAP) Pulse Ox O2 Delivery O2 Flow Rate FiO2 01/21/19 16:54 BIPAP/CPAP 30 01/21/19 16:15 104 125/62 (83) 91 Laboratory Data Labs 24H Laboratory Tests 2 01/21/19 14:15: Immature Granulocyte % (Auto) 1.3, White Blood Count 17.3H, Red Blood Count 4.93, Hemoglobin 13.6, Hematocrit 46.4, Mean Corpuscular Volume 94.1, Mean Corpuscular Hemoglobin 27.6, Mean Corpuscular Hemoglobin Concent 29.3L, Red Cell Distribution Width 15.1H, Platelet Count 512H, Neutrophils (%) (Auto) 82.5H, Lymphocytes (%) (Auto) 9.1L, Monocytes (%) (Auto) 6.4H, Eosinophils (%) (Auto) 0.1, Basophils (%) (Auto) 0.6, Neutrophils # (Auto) 14.3H, Lymphocytes # (Auto) 1.6, Monocytes # (Auto) 1.1H, Eosinophils # (Auto) 0.0, Basophils # (Auto) 0.1, Nucleated Red Blood Cells % (auto) 0.2H, Prothrombin Time 12.6, Prothromb Time International Ratio 0.97, Anion Gap 8, Glomerular Filtration Rate > 60.0, Lactic Acid Level 0.7, Calcium Level 9.3, Aspartate Amino Transf (AST/SGOT) 15, Alanine Aminotransferase (ALT/SGPT) 21, Alkaline Phosphatase 147H, Total Bilirubin 0.5, Direct Bilirubin 0.1, Total Creatine Kinase 68, Creatine Kinase MB 3.3, Creatine Kinase MB Relative Index 4.85H, Troponin I < 0.02, FT-Kss-N-Type Natriuretic Peptide 325H, Total Protein 7.5, Albumin 3.6, Albumin/Globulin Ratio 0.92L, Thyroid Stimulating Hormone (TSH) 0.547 01/21/19 14:23: POC pH (Misc Panel) 7.139*L, POC Base Excess (Misc Panel) 12.0H, POC Saturated Percent O2 (Misc) 63L, POC pO2 (Misc Panel) 46.0*L, POC pCO2 (Misc Panel) 121.7*H, POC HCO3 (Misc Panel) 41.3H, POC Total CO2 (Misc Panel) 45.0H 01/21/19 14:25: Bedside Glucose (Misc Panel) 159H 01/21/19 16:48: POC pH (Misc Panel) 7.298L, POC Base Excess (Misc Panel) 11.0H, POC Saturated Percent O2 (Misc) 100H, POC pO2 (Misc Panel) 208.0H, POC pCO2 (Misc Panel) 76.5*H, POC HCO3 (Misc Panel) 37.4H, POC Total CO2 (Misc Panel) 40.0H CBC/BMP Laboratory Tests 01/21/19 14:15 Red Blood Count 4.93, Mean Corpuscular Volume 94.1, Mean Corpuscular Hemoglobin 27.6, Mean Corpuscular Hemoglobin Concent 29.3 L, Red Cell Distribution Width 15.1 H, Neutrophils (%) (Auto) 82.5 H, Lymphocytes (%) (Auto) 9.1 L, Monocytes (%) (Auto) 6.4 H, Eosinophils (%) (Auto) 0.1, Basophils (%) (Auto) 0.6, Neutrophils # (Auto) 14.3 H, Lymphocytes # (Auto) 1.6, Monocytes # (Auto) 1.1 H, Eosinophils # (Auto) 0.0, Basophils # (Auto) 0.1 Microbiology Microbiology 01/21/19 Blood Culture, Received Pending 01/21/19 Blood Culture, Received Pending RAD Interpretation STUDY: CXR Rad Actions: Report Reviewed RAD Interpretation: Normal, Unchanged Assessment/Plan 63 y/o F with extensive PMH however significant for end stage COPD with chronic hypoxic and hypercarbic respiratory failure, active tobacco user, Chronic diastolic CHF, SUYAPA noncompliant with BIPAP, HTN, HLD, GERD, hypothyroidism, obesity admitted for acute on chronic hypercapnic and hypoxic respiratory failure due to COPD exacerbation. PCO2 noted to be 121 and PO2 46 on POC ABG on presentation. Plan / VTE VTE Prophylaxis Ordered?: Yes Plan Plan Acute on chronic hypercapnic and hypoxic respiratory failure due to COPD exacerbation -likely tobacco induced vs viral -Leukocytosis is likely stress response vs decadron give by EMS. Will monitor for signs of infection, follow up blood cultures -Repeat ABC showing improvement in CO2 to 76, patient is more alert at the time of my exam. -Continue BiPAP at current settings. Patient to board in ICU until able to come off BIPAP. Will attempt to wean off to nasal cannula as she improves -monitor pulse ox -Duonebs q4 standing, Prednisone 40mg daily -Hold home Advair for now -f/u AM ABG, CBC, CMP CAD, Chronic diastolic CHF, HTN/HLD -ASA, Atorvastatin 80, bisoprolol, Lasix 40mg daily, Depression Aripiprazole, hydroxazine prn Anxiety: will give low dose xanex as patient is fearful of bipap as is refusing to let it be placed on DM type 2 -hold metformin, Januvia, farxiga -start Determir 10 units qhs, Standard insulin sliding scale. Monitor finger sticks ac, qhs GERD PPI Chronic lower back pain and Fibromyalgia: continue home medications. DVT ppx: NATALIE Gallegos MD Jan 21, 2019 17:36
[2019-01-21] MEDS ORDERED: PILL CUTTER 1 EACH XX PRN (18:00)
[2019-01-21 18:16] VITALS: BP 152/78
[2019-01-21] MEDS: ALPRAZolam 0.5 MG TAB PO PRN (18:50)
--- NOTE | 2019-01-21 19:32 | ECGEPIP ---
[facility] - ED Test Date: 2019-01-21 Pat Name: MIGUEL NAQVI Department: Room: [place] [address] Gender: Female Newspaper Correspondent: radha : 1955 Requested By: Vidya Villavicencio Order Number: [id number] Reading MD: Gamal Neal Measurements Intervals [place] Rate: 106 P: 73 IN: 149 QRS: 53 QRSD: 102 T: 94 QT: 339 QTc: 452 Interpretive Statements SINUS TACHYCARDIA POOR R WAVE PROGRESSION NSTTW ABNORMALITIES SIMILAR TO 01/06/19 Electronically Signed on 01-21-2019 19:31:44 EDT by Gamal Neal
[2019-01-21 20:00] VITALS: BP 149/66
[2019-01-21] MEDS: GABAPENTIN 400 MG CAP PO SCH (20:00)
[2019-01-21] MEDS: ATORVASTATIN 20 MG TAB PO SCH (20:01)
[2019-01-21] MEDS: LEVEMIR (INSULIN DETEMIR) 1 UNITS/0.01ML SC SCH (20:01)
[2019-01-22] VITALS: BP 126/80
[2019-01-22] MEDS: ALPRAZolam 0.5 MG TAB PO PRN ×2 (02:38→21:23)
[2019-01-22 05:25] LABS: HEMATOCRIT 42.1 % (36.0-47.0); HEMOGLOBIN 12.4 g/dl (12.0-15.5); MEAN CORPUSCULAR HEMOGLOBIN 27.4 pg (27.0-33.0); MEAN CORPUSCULAR HGB CONC 29.5 g/dl (32.0-36.5); MEAN CORPUSCULAR VOLUME 92.9 fl (80.0-96.0); PLATELET COUNT, AUTOMATED 429 10^3/uL (150-450); RED BLOOD COUNT 4.53 10^6/uL (4.00-5.40)
[2019-01-22 05:27] LABS: ALBUMIN 3.1 GM/DL (3.2-5.2); ALT/SGPT 20 U/L (12-78); BILIRUBIN,TOTAL 0.5 MG/DL (0.2-1.0); BLOOD UREA NITROGEN 14 MG/DL (7-18); CALCIUM LEVEL 9.3 MG/DL (8.8-10.2); CARBON DIOXIDE LEVEL 32 MEQ/L (21-32); CHLORIDE LEVEL 95 MEQ/L (98-107); CREATININE FOR GFR 0.35 MG/DL (0.55-1.30); GLOMERULAR FILTRATION RATE > 60.0 (>45); GLUCOSE, FASTING 155 MG/DL (70-100); POTASSIUM SERUM 4.1 MEQ/L (3.5-5.1); SODIUM LEVEL 138 MEQ/L (136-145); TOTAL PROTEIN 7.2 GM/DL (6.4-8.2)
[2019-01-22 06:06] LABS: ABG HCO3 33.6 MEQ/L (22.0-26.0); ABG O2 SATURATION 92.4 % (95.0-99.0); ABG PARTIAL PRESSURE O2 70.9 mmHg (75.0-100.0); ABG STANDARD HCO3 28.8 MEQ/L (22.0-26.0); ABG TOTAL CO2 35.8 MEQ/L (23.0-31.0); ABG pH (ARTERIAL) 7.295 UNITS (7.350-7.450)
[2019-01-22 06:09] LABS: ABG PARTIAL PRESSURE CO2 70.7 mmHg (35.0-45.0)
[2019-01-22] MEDS: LEVOTHYROXINE 25MCG TABLET (0.025MG) PO SCH (06:26)
[2019-01-22 08:00] VITALS: BP 138/81
--- NOTE | 2019-01-22 08:29 | IPN ---
DATE: 01/22/2019 Constance is seen on the hospitalist service. This is her 13th admission in 2019 for respiratory failure again secondary to and noncompliance with her therapy. She is on BiPAP overnight. Her blood gases look better. She momentarily had a hose disconnected to her BiPAP and she immediately desaturated. Getting out of bed, she desaturates immediately as well. PHYSICAL EXAMINATION: Vital Signs stable. Saturation 95%. She is alert, conversant. She indicates that she is less short of breath. Lungs have decreased breath sounds. Heart regular rhythm. Abdomen soft, nontender. Trace peripheral edema. LABS: Electrolytes are unremarkable. White count is down to 11. AB.29/70/70. IMPRESSION: 1. Acute on chronic respiratory failure responding to BiPAP. The case was discussed with Dr. Lowry. She will see the patient in consultation. She is on DuoNebs and steroids. Chest x-ray was clear. 2. History of diastolic congestive heart failure (probably more cor pulmonal): Continue her current diuretic therapy. 3. Psychiatric conditions: Condition current medications. 4. Diabetes: On sliding scale of insulin with basal insulin. She is on Januvia, Farxiga, and metformin as an outpatient.
[2019-01-22] MEDS: GABAPENTIN 400 MG CAP PO SCH ×2 (09:00→21:00)
[2019-01-22] MEDS: BISOPROLOL FUM 2.5 MG PER 1/2TAB PO SCH (09:00)
[2019-01-22] MEDS ORDERED: predniSONE 20 MG TAB PO SCH (09:00)
[2019-01-22] MEDS: ASPIRIN 81 MG ENTERIC TAB PO SCH (09:00)
[2019-01-22] MEDS: FLUTICASONE PROP 0.05% NASAL SPRAY 16 GM (FLONASE) NARES SCH (09:00)
[2019-01-22] MEDS ORDERED: FUROSEMIDE 40 MG TAB PO SCH (09:00)
[2019-01-22] MEDS ORDERED: PANTOPRAZOLE 40MG TAB (PROTONIX) PO SCH (09:00)
[2019-01-22] MEDS: FUROSEMIDE 20 MG/2 ML VIAL (J1940) IV SCH (09:19)
[2019-01-22] MEDS: PANTOPRAZOLE 40MG INJ (PROTONIX) (C9113) IV SCH (09:19)
[2019-01-22] MEDS: methylPREDNISolone INJ 40 MG/1 ML VIAL (J2920) IV SCH ×2 (09:19→18:22)
[2019-01-22] MEDS: HumaLOG INSULIN (NovoLOG) PER UNIT SC SCH ×3 (09:20→18:22)
[2019-01-22] MEDS: ENOXAPARIN 40 MG/0.4 ML SYRINGE (J1650) SC SCH (09:20)
--- NOTE | 2019-01-22 10:30 | CR ---
DATE OF CONSULTATION: 01/22/2019 HISTORY OF PRESENT ILLNESS: The patient is a 63-year-old female with a past medical history of chronic obstructive pulmonary disease (COPD) with chronic hypoxemic and hypercarbic respiratory failure, obstructive sleep apnea (SUYAPA), history of noncompliance with BiPAP, heart failure with preserved ejection fraction (EF), hypertension, hyperlipidemia, gastroesophageal reflux disease (GERD), hypothyroidism, and anxiety who presented to the emergency department (ED) with worsening shortness of breath and altered mental status. The patient has had a history of multiple admissions for COPD and congestive heart failure (CHF) exacerbation, usually requiring BiPAP for acute on chronic hypercapnic respiratory failure. She has a history of noncompliance with medications and with her home BiPAP and her last admission was in the middle of this month for an acute COPD exacerbation. For this admission, the patient reports worsening shortness of breath for a few days prior to admission. She is on 2 liters nasal cannula chronically at home. She reports wheezing, chest tightness and shortness of breath, but reported her oxygen saturations at home were not significantly abnormal. She denied any worsening cough or mucus production. She did have some subjective fevers and chills. The patient denied noticing any increased lower extremity edema, but did feel she had some possible increased abdominal distention. She denied any nausea or vomiting and had no significant abdominal pain. As per the ED note, on emergency medical services (EMS) arrival, the patient had a complaint of shortness of breath and was on 5 liters nasal cannula. She had been given nebulizer treatments and Decadron en route as well as was placed on a nonrebreather, but was noted to have worsening mental status. In the ED, the patient was started on BiPAP and admitted to the intensive care unit (ICU). She was given prednisone and nebulizer treatments. This morning, the patient appears to be more awake and alert on the BiPAP. She is able to answer questions appropriately, but does drift back to sleep easily. She reports her shortness of breath has improved, but she does get very dyspneic with limited exertion as well as desaturates while on BiPAP with very limited exertion and movement. Overnight, the patient had been trialed off of BiPAP to Vapotherm, which she did not tolerate. The patient reports she has been compliant with her medications. She denies missing doses of her Lasix. She is on chronic prednisone for her COPD which she has been taking 5 mg daily. She also uses Advair and Spiriva for inhalers as well as albuterol nebulizers three to four times a day and rescue inhaler as needed. PAST MEDICAL HISTORY: Chronic hypoxemic respiratory failure on nasal cannula oxygen. Chronic hypercarbic respiratory failure. SUYAPA on BiPAP, noncompliant. COPD. Heart failure with preserved EF, likely with pulmonary hypertension and cor pulmonale. Depression. Bipolar disorder. Anxiety disorder. History of NSTEMI. Chronic low back pain. Fibromyalgia. Osteoarthritis. GERD. Hypertension. Hyperlipidemia. Diabetes. Hypothyroidism. Obesity. PAST SURGICAL HISTORY: Cholecystectomy. Cardiac catheterization. History of breast biopsy. Dilation and curettage (D and C). Tubal ligation. Tonsillectomy. Exploratory laparotomy. FAMILY HISTORY: Father with history of diabetes and of a myocardial infarction ([place]). Mother with a history of lung cancer. SOCIAL HISTORY: Current smoker. Smokes 5 cigarettes a day. Previously had more extensive tobacco use. Previous history of marijuana use. Denies any alcohol use. HOME MEDICATIONS: Aspirin, atorvastatin, cetirizine, dapagliflozin, ergocalciferol, Advair, fluticasone nasal spray, Lasix 40 mg daily, gabapentin, Synthroid, metformin, pantoprazole, prednisone 5 mg daily, prochlorperazine, sitagliptin, Abilify, Spiriva. PHYSICAL EXAMINATION: Temperature 97.1, pulse 104, respirations 26, blood pressure 126/80, oxygen saturation 90% on 30% FiO2 and BiPAP. General: The patient is lying in bed. Appears comfortable on the BiPAP. She is arousable and answering questions appropriately, but does drift back to sleep easily. HEENT: Normocephalic, atraumatic. Pupils are reactive to light bilaterally. Dry mucous membranes on the BiPAP. Neck is supple. Trachea is midline. Unable to appreciate any jugular venous distention (JVD) due to the neck habitus. No palpable cervical adenopathy. CARDIOVASCULAR: Tachycardic. Regular rate and rhythm. Normal S1 and S2. Unable to appreciate any murmurs with distant heart sounds. PULMONARY: Diminished breath sounds bilaterally with expiratory wheezing. No rhonchi or rales. ABDOMEN: Obese. Soft. Mild epigastric tenderness. No hepatomegaly palpated. No fluid wave. LOWER EXTREMITIES: There is trace pitting edema bilaterally. Peripheral pulses are palpable. LABS: WBC 11.0, hemoglobin 12.4, platelets 429. Chemistry with sodium 138, potassium 4.1, chloride 95, bicarbonate 32, BUN 14, creatinine 0.35, glucose 155, lactic acid 0.7. AST and ALT within normal limits. Alkaline phosphatase 118. Troponin first set negative. BNP was 325 on her previous admission, two weeks ago was 161. ABG this morning 7.295, pCO2 of 70.7, and PO2 of 70.9. Initial ABG with a pH of 7.139, pCO2 of 121.7 and pO2 of 46. Chest x-ray on admission shows some atelectasis at the bases with some chronic changes and some very minimal blunting of the costophrenic angle in the right base. There are enlarged pulmonary vessels in the hilar regions bilaterally. ASSESSMENT AND PLAN: Ms. Zavala is a 63-year-old female with a past medical history of COPD on chronic steroids with a history of chronic hypoxemic and hypercarbic respiratory failure, SUYAPA noncompliant with BiPAP, hypertension, hyperlipidemia, heart failure with preserved EF, hypothyroidism, and diabetes with a history of multiple admissions, approximately thirteen this year, for recurrent COPD and CHF exacerbations with recurrent acute on chronic hypercarbic respiratory failure and a history of noncompliance. She was found to have acute on chronic hypercarbic and hypoxemic respiratory failure. Patient likely with an acute COPD exacerbation. She does also have a history of heart failure with preserved EF with likely pulmonary hypertension group 3 as well as likely cor pulmonale. She does have BNP which is slightly elevated compared to her previous and she does have some slight lower extremity edema, although not significant. The patient does have a history of noncompliance with her medications as well as with drinking copious amounts of water. She reports drinking at least a gallon of water a day. - Continue patient on BiPAP for her hypercarbic respiratory failure. On her last sleep study in November, the patient was titrated to settings of 12/6 with a 2 liter oxygen bleed. The patient's ABGs appear to be improving on the BiPAP with the current settings of 12/6 and FiO2 of 30%. She does significantly desaturate however with limited exertion as well as with trial off of BiPAP. Therefore, would keep patient nothing by mouth (n.p.o.) and keep her on BiPAP for today. - Would repeat ABG in the morning or if patient has any worsening mental status changes. - Continue with steroids. Will change to IV steroids as patient is n.p.o. Will increase her steroids to Solu-Medrol 40 mg every 8 with a taper. She is on prednisone chronically 5 mg at home. - Will change DuoNebs to every 4 hours instead of as needed. - Can continue to hold Advair and Spiriva for now, but would need to restart on her discharge. - Can continue with Lasix. Will change to 20 mg IV daily as she is on 40 mg by mouth at home. Will continue to monitor her ins and outs. She may need additional IV doses of Lasix depending on her fluid status. - Will place a Allen catheter for more accurate monitoring as well as for comfort as she does desaturate and has significant dyspnea going to the bedside commode. - The patient encouraged to continue smoking cessation. If there are signs of withdrawal, can start a nicotine patch at 7 mg daily. Deep vein thrombosis (DVT) prophylaxis with Lovenox. Gastrointestinal (GI) prophylaxis with Protonix. Full code.
[2019-01-22] MEDS: IPRATROPIUM 0.5MG/ALBUTEROL 2.5MG INH SOL UD 3ML (DUONEB)(J7620) NEB SCH ×3 (11:53→19:37)
[2019-01-22 12:00] VITALS: BP 145/75
[2019-01-22 16:00] VITALS: BP 134/66
[2019-01-22 21:00] VITALS: BP 135/63
[2019-01-22] MEDS: ATORVASTATIN 20 MG TAB PO SCH (21:23)
[2019-01-22] MEDS: LEVEMIR (INSULIN DETEMIR) 1 UNITS/0.01ML SC SCH (21:24)
[2019-01-23] VITALS: BP 135/62
[2019-01-23] MEDS: IPRATROPIUM 0.5MG/ALBUTEROL 2.5MG INH SOL UD 3ML (DUONEB)(J7620) NEB SCH ×7 (00:03→23:51)
[2019-01-23] MEDS: methylPREDNISolone INJ 40 MG/1 ML VIAL (J2920) IV SCH ×3 (01:21→16:27)
[2019-01-23 04:00] VITALS: BP 135/63
[2019-01-23 06:01] LABS: ABG HCO3 37.6 MEQ/L (22.0-26.0); ABG O2 SATURATION 92.5 % (95.0-99.0); ABG PARTIAL PRESSURE CO2 66.3 mmHg (35.0-45.0); ABG PARTIAL PRESSURE O2 66.2 mmHg (75.0-100.0); ABG STANDARD HCO3 33.6 MEQ/L (22.0-26.0); ABG TOTAL CO2 39.6 MEQ/L (23.0-31.0); ABG pH (ARTERIAL) 7.371 UNITS (7.350-7.450)
[2019-01-23] MEDS: LEVOTHYROXINE 25MCG TABLET (0.025MG) PO SCH (06:19)
[2019-01-23] MEDS: ALPRAZolam 0.5 MG TAB PO PRN ×2 (06:19→21:08)
[2019-01-23 08:00] VITALS: BP 143/78
[2019-01-23] MEDS: PANTOPRAZOLE 40MG INJ (PROTONIX) (C9113) IV SCH (08:50)
[2019-01-23] MEDS: GABAPENTIN 400 MG CAP PO SCH ×2 (08:50→20:09)
[2019-01-23] MEDS: FUROSEMIDE 20 MG/2 ML VIAL (J1940) IV SCH (08:50)
[2019-01-23] MEDS: HumaLOG INSULIN (NovoLOG) PER UNIT SC SCH ×3 (08:50→16:27)
[2019-01-23] MEDS: FLUTICASONE PROP 0.05% NASAL SPRAY 16 GM (FLONASE) NARES SCH (08:51)
[2019-01-23] MEDS: ENOXAPARIN 40 MG/0.4 ML SYRINGE (J1650) SC SCH (08:51)
[2019-01-23] MEDS: ASPIRIN 81 MG ENTERIC TAB PO SCH (08:51)
[2019-01-23] MEDS: BISOPROLOL FUM 2.5 MG PER 1/2TAB PO SCH (08:53)
--- NOTE | 2019-01-23 10:51 | IPNPDOC ---
Text Note Date of Service The patient was seen on 01/23/19. NOTE S: Patient states she is interested in nursing care/assisted living after discharge. States she tries to be compliant with medication but gets confused. States she gets anxious and afraid being alone at home and it is worsened with using bipap so often does not use it at home. Currently states breathing is better, no CP, no N, no V O: Vitals as below General: pleasant, tearful at times, AAOx3 HRRR no murmur LCTA with scant wheezes, no rales, no rhonchi Ext: no edema Abdomen :obese, NT ND NABS Labs reviewed and case discussed in detail with Dr Lowry A/P: 1. acute on chronic hypercarbic and hypoxemic respiratory failure - Pulmonary consulted for management. nebs, steroids, bipap, oxygen - transfer to PCU. Tomorrow start tapering IV steroids to po and today will taper off Vapotherm oxygen to NC.. 2. acute COPD exacerbation - steroids, nebs, bipap 3. chronic diastolic heart failure with preserved EF with likely pulmonary hypertension and probable Cor Pulmonale - pulmonary consulted for management - change IV lasix to her usual home PO dosing. continue betablocker 4. obstructive sleep apnea (SUYAPA), history of noncompliance with BiPAP due to anxiety. Will start buspar 5mg BID and titrate up every 3 days to therapeutic dose. She will NOT be sent home with xanax because of potential for respiratory depression. 5. hyperlipidemia - on statin 6. GERD - on PPI 7. Hypothyroid - continue levothyroxine 8. Diabetes - : On sliding scale of insulin with basal insulin. hold outpatient meds of Januvia, Farxiga, and metformin 9. Psychiatric conditions/anxiety: Condition current medications. start buspar and titrate off xanax Current Medications Medications (Trade) Dose Ordered Sig/Chet Route PRN Reason Start Time Stop Time Status Last Admin Dose Admin Acetaminophen/ Hydrocodone Bitart (Anexsia, [place] 7.5mg/325mg) 1 tab BIDP PRN PO PAIN 01/21/19 17:30 Albuterol/ Ipratropium (Duoneb (Ipr 0.5mg/Alb 2.5mg)) 3 ml Q4HP PRN NEB SHORTNESS OF BREATH 01/21/19 17:30 01/22/19 08:52 DC Albuterol/ Ipratropium (Duoneb (Ipr 0.5mg/Alb 2.5mg)) 3 ml RQ4H NEB 01/22/19 12:00 01/23/19 07:40 Alprazolam (Xanax) 0.5 mg Q8HP PRN PO ANXIETY/AGITATION 01/21/19 18:45 01/23/19 06:19 Aripiprazole (AbiLIFY) 2.5 mg QHS PO 01/21/19 21:00 01/21/19 20:01 Aspirin (Ecotrin) 81 mg DAILY PO 01/22/19 09:00 Atorvastatin Calcium (Lipitor) 80 mg QHS PO 01/21/19 21:00 01/22/19 21:23 Benzonatate (Tessalon Perles) 100 mg TIDP PRN PO COUGH 01/21/19 17:30 Bisoprolol Fumarate (Zebeta) 2.5 mg DAILY PO 01/22/19 09:00 Dextrose (Dextrose 50%) 25 ml ASDIRECTED PRN IV SEE LABEL COMMENTS 01/21/19 17:30 Enoxaparin Sodium (Lovenox) 40 mg DAILY SC 01/22/19 09:00 01/22/19 09:20 Fluticasone Propionate (Flonase 0.05% Nasal [place]) 1 spray DAILY NARES 01/22/19 09:00 Furosemide (LASIX injection) 20 mg DAILY IV 01/22/19 09:00 01/22/19 09:19 Furosemide (Lasix) 40 mg DAILY PO 01/22/19 09:00 01/22/19 09:00 DC Gabapentin (Neurontin) 800 mg BID PO 01/21/19 21:00 01/21/19 20:00 Glucagon (Glucagon) 1 mg ASDIRECTED PRN SC SEE LABEL COMMENTS 01/21/19 17:30 Glucose (Glucose) 16 GM ASDIRECTED PRN PO SEE LABEL COMMENTS 01/21/19 17:30 Home Med (Med Rec Complete!) ASDIRECTED XX 01/21/19 17:15 01/21/19 17:15 DC Hydroxyzine HCl (Atarax) 25 mg TIDP PRN PO ANXIETY 01/21/19 17:30 Insulin Detemir (Levemir Insulin) 10 units QHS SC 01/21/19 21:00 01/22/19 21:24 Insulin Human Lispro (HumaLOG INSULIN) See Protocol Table AC SC 01/21/19 17:30 01/22/19 18:22 Levothyroxine Sodium (Synthroid) 25 mcg DAILY@0600 PO 01/22/19 06:00 01/23/19 06:19 Methylprednisolone (SOLU medrol) 40 mg Q8H IV 01/22/19 09:00 01/23/19 01:21 Midazolam HCl (Versed) 0.5 mg STAT STAT IV 01/21/19 14:31 01/21/19 14:32 DC 01/21/19 14:42 Pantoprazole Sodium (Protonix) 40 mg DAILY IV 01/22/19 09:00 01/22/19 09:19 Pantoprazole Sodium (Protonix) 40 mg DAILY PO 01/22/19 09:00 01/22/19 09:00 DC Prednisone (Deltasone) 40 mg DAILY PO 01/22/19 09:00 01/22/19 09:00 DC VS,Fishbone, I+O VS, Fishbone, I+O Vital Signs Date Time Temp Pulse Resp B/P (MAP) Pulse Ox O2 Delivery O2 Flow Rate FiO2 01/23/19 08:24 92 17.0 40 01/23/19 08:00 97.0 93 16 143/78 (99) 01/21/19 17:22 Nasal Cannula I&O- Last 24 Hours up to 6 AM 01/23/19 06:00 Intake Total 390 ml Output Total 1160 ml Balance -770 ml TEN SULLIVAN DO Jan 23, 2019 08:36
[2019-01-23] MEDS: busPIRone 5 MG TAB PO SCH ×2 (11:07→20:09)
--- NOTE | 2019-01-23 11:08 | CCN ---
DATE: 01/23/2019 The patient was seen and examined this morning during bedside rounds. Patient was on BiPAP yesterday and was weaned off this morning to Vapotherm, which she has been tolerating. The patient reports her shortness of breath has improved but she does continue to have some cough, which has not been productive. She denies any significant chest pain, has not had any fevers or chills. No abdominal pain. No nausea or vomiting. PHYSICAL EXAM: Temperature 97.0, pulse 93, respirations 16, blood pressure 143/78, O2 sat 92% on high-flow nasal cannula at 17 liters per minute with FiO2 of 40%. Input: 570 mL. Output: 1.1 liters net negative 600 mL GENERAL: Patient is sitting in bed, appears comfortable on the high-flow nasal cannula. She is awake and alert and answering questions appropriately. Does not appear to be using any accessory muscles for respiration. HEENT: Normocephalic, atraumatic. Pupils reactive to light bilaterally. There is moist mucous membranes. NECK: Neck is supple. Trachea is midline. Unable to appreciate any jugular venous distention (JVD) or palpable cervical adenopathy. CARDIOVASCULAR: Tachycardic, regular rate and rhythm. Normal S1, S2. Unable to appreciate murmurs with distant heart sounds. PULMONARY: Diminished breath sounds bilaterally with faint expiratory wheezing. No significant rhonchi or rales. ABDOMEN: Abdomen is obese, soft, mild epigastric tenderness. No hepatomegaly palpated. LOWER EXTREMITIES: There is no significant lower extremity edema bilaterally. Peripheral pulses are palpable. LABS: No labs pending for today. There is an ABG this morning which shows pH of 7.371, pCO2 of 66.3, pO2 of 66.2. ASSESSMENT/PLAN: Ms. Zavala is a 63-year female with a past medical history of chronic obstructive pulmonary disease (COPD) on chronic prednisone with history of chronic hypoxemic and hypercarbic respiratory failure, obstructive sleep apnea (SUYAPA) noncompliant with BiPAP, hypertension, hyperlipidemia, heart failure with preserved ejection fraction (EF) hypothyroidism, diabetes with a history of multiple admissions for recurrent COPD and congestive heart failure (CHF) exacerbations in the setting of noncompliance. The patient presented again with worsening shortness of breath and wheezing and was found to have acute on chronic hypercarbic and hypoxemic respiratory failure likely secondary to an acute COPD exacerbation. She does have a history of heart failure with preserved EF with likely pulmonary retention group 3 most likely as well as cor pulmonale. Her BNP was slightly elevated but not significantly and she did have slight lower extremity edema, however was not significantly increased. Therefore, I suspect her worsening hypercarbic respiratory failure and hypoxemia was due to COPD and not due to CHF. - The patient reports a history of difficulty with her activities of daily living (ADLs such as cleaning, cooking, and caring for herself. She also reports a history of confusion with her medications and while she previously had stated compliance with her medications, she became tearful this morning and was stating that she has problems with memory and with remembering her medications. She also has issues with anxiety and claustrophobia which limit her usage of her BiPAP at night. She has been able to wear BiPAP here with the aid of some anxiolytic medications. - The patient's ABG appears improved and she appears to be compensated with her chronic hypercarbic respiratory failure currently. Would continue her with tabletop BiPAP her home settings of 04/29 with a 2 liters nasal cannula oxygen bleed. - In terms of her anxiety, would attempt to avoid benzodiazepines given her recurrent admissions for respiratory failure. Can try BuSpar instead for her anxiety and adjust her other medications. - Continue with Solu-Medrol 40 mg every 8 and will likely be able to taper her to every 12 hours tomorrow if she is improving. She will need a slow taper of steroids down to her chronic dose of 5 mg prednisone. - Continue with DuoNebs every 4 hours. - Continue to hold Advair and Spiriva while inpatient but would need to restart her home inhalers on discharge. - Continue with Lasix. She is on 40 mg p.o. daily. - Continue a Allen catheter for now while she is on the high-flow nasal cannula. Can likely perform a voiding trial tomorrow. - Continue to wean down the patient down on the high-flow nasal cannula to regular nasal cannula oxygen. Her goal O2 sat is 88-92% given her chronic hypercarbic respiratory failure. - Continue to her urge smoking cessation. The patient had been smoking five cigarettes daily at home. If she has any evidence of withdrawal, would start her on a nicotine patch at 7 mg daily. - The patient would likely benefit from assisted living given her recurrent hospitalizations and issues with medication compliance and caring for her ADLs at home. Deep venous thrombosis (DVT) prophylaxis: Lovenox. Gastrointestinal (GI) prophylaxis: Protonix. FULL CODE MTDD
[2019-01-23 12:00] VITALS: BP 120/59
[2019-01-23 16:00] VITALS: BP 118/57
[2019-01-23] MEDS: ANEXSIA, NORCO 7.5MG/325MG TABLET(HYDROCODONE/APAP) PO PRN (16:36)
[2019-01-23 20:00] VITALS: BP 111/60
[2019-01-23] MEDS: LEVEMIR (INSULIN DETEMIR) 1 UNITS/0.01ML SC SCH (20:08)
[2019-01-23] MEDS: ATORVASTATIN 20 MG TAB PO SCH (20:09)
[2019-01-24] VITALS (13 sets, daily range): BP systolic 123–154; BP diastolic 60–76; O2SAT 88–97
[2019-01-24] MEDS: methylPREDNISolone INJ 40 MG/1 ML VIAL (J2920) IV SCH ×3 (00:38→17:21)
[2019-01-24] MEDS: IPRATROPIUM 0.5MG/ALBUTEROL 2.5MG INH SOL UD 3ML (DUONEB)(J7620) NEB SCH ×6 (03:42→23:33)
[2019-01-24 05:16] LABS: HEMATOCRIT 36.5 % (36.0-47.0); HEMOGLOBIN 11.1 g/dl (12.0-15.5); MEAN CORPUSCULAR HEMOGLOBIN 26.9 pg (27.0-33.0); MEAN CORPUSCULAR HGB CONC 30.4 g/dl (32.0-36.5); MEAN CORPUSCULAR VOLUME 88.4 fl (80.0-96.0); PLATELET COUNT, AUTOMATED 365 10^3/uL (150-450); RED BLOOD COUNT 4.13 10^6/uL (4.00-5.40); WHITE BLOOD COUNT 9.2 10^3/uL (4.0-10.0)
[2019-01-24 05:37] LABS: BLOOD UREA NITROGEN 18 MG/DL (7-18); CALCIUM LEVEL 9.1 MG/DL (8.8-10.2); CARBON DIOXIDE LEVEL 41 MEQ/L (21-32); CHLORIDE LEVEL 93 MEQ/L (98-107); CREATININE FOR GFR 0.37 MG/DL (0.55-1.30); GLOMERULAR FILTRATION RATE > 60.0 (>45); GLUCOSE, FASTING 239 MG/DL (70-100); POTASSIUM SERUM 4.3 MEQ/L (3.5-5.1); SODIUM LEVEL 139 MEQ/L (136-145)
[2019-01-24] MEDS: LEVOTHYROXINE 25MCG TABLET (0.025MG) PO SCH (05:46)
[2019-01-24] MEDS: HumaLOG INSULIN (NovoLOG) PER UNIT SC SCH ×3 (07:59→17:21)
[2019-01-24] MEDS: ASPIRIN 81 MG ENTERIC TAB PO SCH (08:00)
[2019-01-24] MEDS: busPIRone 5 MG TAB PO SCH ×2 (08:00→22:08)
[2019-01-24] MEDS: PANTOPRAZOLE 40MG TAB (PROTONIX) PO SCH (08:00)
[2019-01-24] MEDS: GABAPENTIN 400 MG CAP PO SCH ×2 (08:00→22:08)
[2019-01-24] MEDS: FUROSEMIDE 40 MG TAB PO SCH (08:01)
[2019-01-24] MEDS: BISOPROLOL FUM 2.5 MG PER 1/2TAB PO SCH (08:01)
[2019-01-24] MEDS: ENOXAPARIN 40 MG/0.4 ML SYRINGE (J1650) SC SCH (08:01)
[2019-01-24] MEDS: FLUTICASONE PROP 0.05% NASAL SPRAY 16 GM (FLONASE) NARES SCH (08:02)
--- NOTE | 2019-01-24 11:37 | IPN ---
DATE: 01/24/2019 The patient was seen and examined this morning during bedside rounds. Overnight, the patient was on tabletop bilevel positive airway pressure (BIPAP), which she tolerated well. She was given BuSpar during the day, which seemed to control her anxiety, however overnight she did require a dose of Xanax before being able to tolerate the BiPap. The patient is on Vapotherm for oxygen supplementation. She reports her breathing has improved, but does continue to have a cough and sensation of mucus, which she is having difficulty expectorating. She denies any chest pain. Has not had any fevers or chills. No abdominal pain. No nausea or vomiting. PHYSICAL EXAMINATION: Temperature 97.8, pulse 72, respirations 23, blood pressure 128/61, O2 sat 90% on Vapotherm at 15 liters a minute with 40% FiO2. Input 1.6 liters, output 2.9 liters, net negative 1.3 liters. General: Patient is sitting in bed, appears comfortable on high-flow nasal cannula oxygen. Is not using any accessory muscles for respiration and is able to speak in complete sentences. HEENT: Normocephalic, atraumatic. Pupils reactive to light bilaterally. There are moist mucous membranes. Neck is supple. Trachea is midline. Unable to appreciate any jugular venous distention (JVD) or palpable cervical adenopathy. Cardiovascular: Regular rate and rhythm. Normal S1, S2. Unable to appreciate any murmurs with distant heart sounds. Pulmonary: Decreased breath sounds bilaterally with faint expiratory wheezing and occasional rare rhonchi. No significant crackles. Abdomen is obese, soft, nontender and nondistended. No hepatomegaly. Lower extremities: There is no lower extremity edema bilaterally. Peripheral pulses are palpable. LABORATORY DATA: WBC 9.2, hemoglobin 11.1, platelets 365. Chemistry; Sodium is 139, potassium 4.3, chloride 93, bicarbonate 41, BUN 18, creatinine 0.37, glucose is 239. ASSESSMENT/PLAN: The patient is a 63-year female with a past medical history of chronic obstructive pulmonary disease (COPD) on chronic prednisone with chronic hypoxemic and hypercarbic respiratory failure on 2 liters nasal cannula oxygen, obstructive sleep apnea noncompliant with BiPap, hypertension, hyperlipidemia, HFPEF, hypothyroidism, diabetes, history of multiple admissions for recurrent COPD and CHF exacerbations in the setting of noncompliance. The patient presents again with increased shortness of breath, coughing and wheezing and was found to have acute on chronic hypercarbic and hypoxemic respiratory failure likely secondary to an acute COPD exacerbation. Would continue the patient with Solu-Medrol 40 mg q. 8 hours today and would taper her to 40 mg q.12 hours tomorrow and continue with a slow taper of her Solu-Medrol. She will need to be tapered down to prednisone 5 mg, which she is taking chronically. The patient does have a history of heart failure with preserved ejection fraction and suspected pulmonary hypertension, likely group III given her chronic lung disease and hypoxic respiratory failure. She likely also has some cor pulmonale as well. Her BNP on this admission was slightly elevated but she did not appear to be significantly edematous. Therefore, we will continue with her home Lasix of 40 mg daily and continue to monitor her input and output. Continue with Vapotherm with attempts to wean down on the oxygen as tolerated. The patient's O2 saturation does appear to improve when she takes deep breaths through her nose. Would encourage the patient to breathe through her nose more and to take deeper breaths. The patient's goal oxygen saturation is 88 to 92% given her chronic hypercarbic respiratory failure. Would give her Acapella to be used with her nebulizer treatments for mucus clearance. Continue with a DuoNebs q.4 hours for now. The patient is on Advair and Spiriva at home. Would continue to hold while inpatient and restart upon discharge. Continue with her tabletop BiPap at 12/6 with 2 liters nasal cannula oxygen bleed for her obstructive sleep apnea. Continue with BuSpar for her anxiety and would attempt to avoid benzodiazepines if possible given her history of recurrent admissions for respiratory failure. The patient may need further adjustments of her other anxiety and depression medications to help with tolerance of her BiPap. Continue to encourage smoking cessation. The patient is pending evaluation for possible assisted living given her recurrent hospitalizations and difficulty with medication compliance, as well as difficulty with activities of daily living at home. Deep vein thrombosis (DVT) prophylaxis. Lovenox. Gastrointestinal prophylaxis. Protonix. FULL CODE. The patient can followup with pulmonary 2 weeks after discharge. The patient follows with Dr. Pacheco. Please do not hesitate to call if any further questions or concerns. ISMAEL
--- NOTE | 2019-01-24 13:22 | IPN ---
DATE: 01/24/2019 Constance is seen in the ICU. She is markedly improved from when I saw her yesterday. She is off her Bipap. She is less short of breath. I appreciate Dr. Lowry's assistance with this case. PHYSICAL EXAMINATION: 127/64, pulse 90, 89% oxygen saturation. General appearance she is alert, conversant in no distress. No JVD. Lungs expiratory wheezes at both bases. Heart regular rhythm. Abdomen nontender. Trace peripheral edema. LABS: CBC unremarkable. Sodium 139, potassium 4.3, BUN 18, Creatinine 0.3, glucose 239, blood sugars have between 133 and 230. IMPRESSION: 1. Acute on chronic respiratory failure. Appreciate pulmonary's assistance. We will start to taper her steroids. She has been transferred to the PCU yesterday. 2. Congestive heart failure. Preserved ejection fraction (probably more likely cor pulmonale), by mouth furosemide. 3. Diabetes, sliding scale insulin. She is on Januvia, Farxiga and metformin as an outpatient. 4. Chronic anxiety. She has started some Buspar. Please keep off from benzodiazepines. She has been transferred to PCU. She is still several days away from being ready for discharge.
[2019-01-24] MEDS ORDERED: SLF 3 ML SYR IV PRN (15:30)
[2019-01-24] MEDS: ALPRAZolam 0.5 MG TAB PO PRN (19:49)
[2019-01-24] MEDS: LEVEMIR (INSULIN DETEMIR) 1 UNITS/0.01ML SC SCH (22:08)
[2019-01-24] MEDS: ATORVASTATIN 20 MG TAB PO SCH (22:09)
[2019-01-24] MEDS: SLF 3 ML SYR IV SCH (22:09)
[2019-01-25] VITALS (22 sets, daily range): BP systolic 115–168; BP diastolic 71–86; O2SAT 87–98
[2019-01-25] MEDS: IPRATROPIUM 0.5MG/ALBUTEROL 2.5MG INH SOL UD 3ML (DUONEB)(J7620) NEB SCH ×6 (04:21→23:18)
[2019-01-25 05:03] LABS: HEMATOCRIT 37.8 % (36.0-47.0); HEMOGLOBIN 11.4 g/dl (12.0-15.5); MEAN CORPUSCULAR HEMOGLOBIN 27.5 pg (27.0-33.0); MEAN CORPUSCULAR HGB CONC 30.2 g/dl (32.0-36.5); MEAN CORPUSCULAR VOLUME 91.3 fl (80.0-96.0); PLATELET COUNT, AUTOMATED 340 10^3/uL (150-450); RED BLOOD COUNT 4.14 10^6/uL (4.00-5.40); WHITE BLOOD COUNT 10.5 10^3/uL (4.0-10.0)
[2019-01-25 05:21] LABS: BLOOD UREA NITROGEN 19 MG/DL (7-18); CALCIUM LEVEL 8.5 MG/DL (8.8-10.2); CARBON DIOXIDE LEVEL 44 MEQ/L (21-32); CHLORIDE LEVEL 93 MEQ/L (98-107); CREATININE FOR GFR 0.46 MG/DL (0.55-1.30); GLOMERULAR FILTRATION RATE > 60.0 (>45); GLUCOSE, FASTING 240 MG/DL (70-100); MAGNESIUM LEVEL 1.9 MG/DL (1.8-2.4); POTASSIUM SERUM 3.5 MEQ/L (3.5-5.1); SODIUM LEVEL 139 MEQ/L (136-145)
[2019-01-25] MEDS: methylPREDNISolone INJ 40 MG/1 ML VIAL (J2920) IV SCH ×2 (05:24→17:41)
[2019-01-25] MEDS: LEVOTHYROXINE 25MCG TABLET (0.025MG) PO SCH (05:24)
[2019-01-25] MEDS: SLF 3 ML SYR IV SCH ×3 (05:24→21:47)
--- NOTE | 2019-01-25 08:38 | IPN ---
DATE: 01/25/2019 The patient this morning says that her shortness of breath is much improved. She continues to have some dyspnea on exertion but no chest pain, pressure or tightness, palpitations, lightheadedness or dizziness. Patient is concerned about being placed in assisted living. She is requesting to be discharged home. Daughter expresses same concern. Previously, she has had multiple admissions for chronic obstructive pulmonary disease (COPD) exacerbation and hypercapnic respiratory failure due to noncompliance with her BiPAP, CPAP machine at home. Patient states that since she has been recently started on BuSpar that she may be compliant at home. She wants to be discharged home and not think about assisted living at this time. No other issues per nursing. PHYSICAL EXAMINATION: Temperature 97.3, pulse 71, respiratory rate 16, blood pressure 139/80, 92% oxygen saturation on 3 liters nasal cannula, FiO2 40% on Vapotherm, CPAP at night. Generally, patient is awake, alert, oriented times three. Answering questions appropriately. She has no use of accessory respiratory muscles. No flaring. No cyanosis. No icterus or jaundice. Lungs are diminished with faint expiratory wheezing bilaterally. Heart: S1, S2, sinus rhythm. Abdomen is soft, nontender, nondistended. Extremities: No cyanosis, clubbing with trace edema. LABORATORY DATA: White count 10.5, hemoglobin 11, hematocrit 37, platelet count 340. Sodium 139, potassium 3.5, chloride 93, bicarbonate 44, BUN 19, creatinine 0.46, glucose 240, magnesium 1.9. Input and output: Input 2440, output 4875, negative 2435. Current weight is 89.3 kg. Previous weight is 85.1 mg. CURRENT MEDICATIONS: - Solu-Medrol 40 IV every 12 hours. - Lasix 40 mg daily - Protonix 40 mg daily - BuSpar 5 mg twice a day - DuoNeb 3 mL - Lovenox - aspirin - bisoprolol - Flonase - levothyroxine - Abilify - Lipitor - Neurontin - Levemir insulin - Xanax - Tessalon Perles - [place] - Atarax - Humulin insulin - Hypoglycemic protocol ASSESSMENT/PLAN: This is a 63-year-old with nor pulmonale, chronic obstructive pulmonary disease (COPD), congestive heart failure (CHF) with diastolic dysfunction with multiple admissions due to hypercapnic and hypoxic respiratory failure due to medical noncompliance with [facility] for assisted living but currently wanting to go home. CURRENT ISSUES: 1. Chronic obstructive pulmonary disease (COPD) exacerbation: Currently on Vapotherm, CPAP, and Solu-Medrol nebulizer treatments. Per pulmonary patient may followup 2 weeks after hospital discharge. Vapotherm currently with goal of 88-92% oxygen saturation due to chronic hypercarbic respiratory failure. She is continued on acapella, Advair, Spiriva. She is continued on BiPAP / with 2 liters nasal cannula oxygen bleed-in for obstructive sleep apnea (SUYAPA). 2. Obstructive sleep apnea (SUYAPA): Continue on BiPAP and oxygen. 3. Anxiety: On BuSpar to avoid benzodiazepines. 4. Cor pulmonale: Currently on home dose of Lasix. DISPOSITION: Patient will be transferred to the medical-surgical floor. Continue on current management. Physical therapy (PT) to be consulted. Patient family services (PFS) to be notified that patient wants to be discharged home.
[2019-01-25] MEDS: ENOXAPARIN 40 MG/0.4 ML SYRINGE (J1650) SC SCH (08:54)
[2019-01-25] MEDS: GABAPENTIN 400 MG CAP PO SCH ×2 (08:55→20:30)
[2019-01-25] MEDS: HumaLOG INSULIN (NovoLOG) PER UNIT SC SCH ×3 (08:55→17:42)
[2019-01-25] MEDS: BISOPROLOL FUM 2.5 MG PER 1/2TAB PO SCH (08:55)
[2019-01-25] MEDS: PANTOPRAZOLE 40MG TAB (PROTONIX) PO SCH (08:55)
[2019-01-25] MEDS: ASPIRIN 81 MG ENTERIC TAB PO SCH (08:55)
[2019-01-25] MEDS: FUROSEMIDE 40 MG TAB PO SCH (08:55)
[2019-01-25] MEDS: FLUTICASONE PROP 0.05% NASAL SPRAY 16 GM (FLONASE) NARES SCH (08:57)
[2019-01-25] MEDS: busPIRone 5 MG TAB PO SCH ×2 (10:58→20:29)
[2019-01-25] MEDS: ATORVASTATIN 20 MG TAB PO SCH (20:29)
[2019-01-25] MEDS: ALPRAZolam 0.5 MG TAB PO PRN (20:31)
[2019-01-25] MEDS: LEVEMIR (INSULIN DETEMIR) 1 UNITS/0.01ML SC SCH (20:32)
[2019-01-26] VITALS (18 sets, daily range): BP systolic 134–165; BP diastolic 70–81; O2SAT 88–98
[2019-01-26] MEDS: IPRATROPIUM 0.5MG/ALBUTEROL 2.5MG INH SOL UD 3ML (DUONEB)(J7620) NEB SCH ×4 (03:22→20:37)
[2019-01-26] MEDS: methylPREDNISolone INJ 40 MG/1 ML VIAL (J2920) IV SCH ×2 (05:18→17:25)
[2019-01-26] MEDS: LEVOTHYROXINE 25MCG TABLET (0.025MG) PO SCH (05:18)
[2019-01-26] MEDS: SLF 3 ML SYR IV SCH ×3 (05:19→22:16)
[2019-01-26 05:31] LABS: HEMATOCRIT 37.8 % (36.0-47.0); HEMOGLOBIN 11.3 g/dl (12.0-15.5); MEAN CORPUSCULAR HEMOGLOBIN 26.8 pg (27.0-33.0); MEAN CORPUSCULAR HGB CONC 29.9 g/dl (32.0-36.5); MEAN CORPUSCULAR VOLUME 89.8 fl (80.0-96.0); PLATELET COUNT, AUTOMATED 360 10^3/uL (150-450); RED BLOOD COUNT 4.21 10^6/uL (4.00-5.40); WHITE BLOOD COUNT 10.9 10^3/uL (4.0-10.0)
[2019-01-26 05:55] LABS: BLOOD UREA NITROGEN 14 MG/DL (7-18); CALCIUM LEVEL 8.5 MG/DL (8.8-10.2); CARBON DIOXIDE LEVEL 45 MEQ/L (21-32); CHLORIDE LEVEL 90 MEQ/L (98-107); GLOMERULAR FILTRATION RATE > 60.0 (>45); GLUCOSE, FASTING 205 MG/DL (70-100); MAGNESIUM LEVEL 1.9 MG/DL (1.8-2.4); POTASSIUM SERUM 3.8 MEQ/L (3.5-5.1); SODIUM LEVEL 137 MEQ/L (136-145)
[2019-01-26] MEDS: FUROSEMIDE 40 MG TAB PO SCH (08:32)
[2019-01-26] MEDS: ENOXAPARIN 40 MG/0.4 ML SYRINGE (J1650) SC SCH (08:32)
[2019-01-26] MEDS: BISOPROLOL FUM 2.5 MG PER 1/2TAB PO SCH (08:32)
[2019-01-26] MEDS: ASPIRIN 81 MG ENTERIC TAB PO SCH (08:32)
[2019-01-26] MEDS: HumaLOG INSULIN (NovoLOG) PER UNIT SC SCH ×3 (08:32→17:25)
[2019-01-26] MEDS: busPIRone 5 MG TAB PO SCH ×2 (08:32→22:16)
[2019-01-26] MEDS: PANTOPRAZOLE 40MG TAB (PROTONIX) PO SCH (08:33)
[2019-01-26] MEDS: GABAPENTIN 400 MG CAP PO SCH ×2 (08:33→22:16)
[2019-01-26] MEDS: FLUTICASONE PROP 0.05% NASAL SPRAY 16 GM (FLONASE) NARES SCH (08:34)
[2019-01-26] MEDS ORDERED: MOM 30ML SUSPENSION UDC PO PRN (10:00)
[2019-01-26] MEDS ORDERED: FLEET ENEMA PR PRN (10:00)
[2019-01-26] MEDS: SENOKOT S TAB PO SCH ×2 (10:28→22:17)
[2019-01-26] MEDS: MIRALAX *UNIT DOSE* 17GM PACKET PO SCH ×3 (10:28→22:14)
[2019-01-26] MEDS: ANEXSIA, NORCO 7.5MG/325MG TABLET(HYDROCODONE/APAP) PO PRN (10:29)
--- NOTE | 2019-01-26 17:39 | IPNPDOC ---
Date Seen The patient was seen on 01/26/19. Progress Note SUBJECTIVE: sob is better at rest,but c/o JACOBSEN just taking 2-3steps to her bedside commode, with documented desaturations to high 70's-80's on pulse oximeter. unable to wean down pt's vapotherm, and still requiring 35% Fio2. compliant now with her nightly cpap and mentation is back to baseline. no c/o cough,chest pain,fever, chills. no dizziness or lightheadedness with standing or ambulating a few steps. remains in net negative balance with her lasix.still with some cough but little sputum production. OBJECTIVE: PHYSICAL EXAMINATION: Temperature 97, pulse81 , respiratory rate14 , blood [id number]/70 , 90% oxygen saturation on 12 liters nasal cannula, 35 FiO2 % on Vapotherm, CPAP at night. Generally, patient is awake, alert, oriented times three. Answering questions appropriately. She has no use of accessory respiratory muscles. No nasal flaring. No cyanosis. No icterus or jaundice. no tripod positioning no conversational dyspnea Lungs are diminished with faint expiratory wheezing bilaterally. Heart: S1, S2, sinus rhythm. Abdomen is soft, nontender, nondistended. Extremities: No cyanosis, clubbing with trace edema. LABORATORY DATA, MICROBIOLOGY, IMAGING STUDIES: REVIEWED CURRENT MEDICATIONS: Solu-Medrol 40 IV every 12 hours., Lasix 40 mg daily, Protonix 40 mg daily, BuSpar 5 mg twice a day,DuoNeb 3 mL, Lovenox, aspirin, bisoprolol, Flonase, levothyroxine,Abilify, Lipitor, Neurontin, Levemir insulin, Xanax, Tessalon Perles, [place], Atarax, Humulin insulin, Hypoglycemic protocol ASSESSMENT/PLAN: This is a 63-year-old with nor pulmonale, chronic obstructive pulmonary disease (COPD), congestive heart failure (CHF) with diastolic dysfunction with multiple admissions due to hypercapnic and hypoxic respiratory failure due to medical noncompliance with [facility] for assisted living but currently wanting to go home. CURRENT ISSUES: Acute on chronic hypoxic respiratory failure: due to decompensated chf diastolic dysfunction with preserved EF, and copd exacerbation continuing with lasix diuresis and iv solumedrol difficulty with weaning pt off the vapotherm due to persistent desaturation Chronic obstructive pulmonary disease (COPD) exacerbation: Currently on Vapotherm, CPAP, and Solu-Medrol nebulizer treatments. Per pulmonary patient may followup 2 weeks after hospital discharge. Vapotherm currently with goal of 88-92% oxygen saturation due to chronic hypercarbic respiratory failure. She is continued on acapella, Advair, Spiriva. She is continued on BiPAP / with 2 liters nasal cannula oxygen bleed-in for obstructive sleep apnea (SUYAPA). still having difficulty weaning her off the vapotherm. will recheck cxr. Obstructive sleep apnea (SUYAPA): Continue on BiPAP and oxygen. Anxiety: On BuSpar to avoid benzodiazepines. decompensated CHF with preserved EF/ Cor pulmonale: has been net negative balance on lasix.strict i/o daily weights and fluid restriction disposition: unable to work with physical therapy due to o2 desaturations. VS, I&O, 24H, Fishbone Vital Signs/I&O Vital Signs Date Time Temp Pulse Resp B/P (MAP) Pulse Ox O2 Delivery O2 Flow Rate FiO2 01/26/19 14:14 94 Nasal Cannula 4.0 01/26/19 13:48 98.4 82 22 165/80 (108) 01/26/19 09:00 35 l I&O- Last 24 Hours up to 6 AM 01/26/19 06:00 Intake Total 780 ml Output Total 2250 ml Balance -1470 ml Laboratory Data 24H LABS Laboratory Tests 2 01/25/19 17:30: Bedside Glucose (Misc Panel) 238H 01/25/19 20:28: Bedside Glucose (Misc Panel) 273H 01/26/19 05:17: Nucleated Red Blood Cells % (auto) 0.0, Anion Gap 2L, Glomerular Filtration Rate > 60.0, Blood Urea Nitrogen 14, Creatinine 0.50L, Sodium Level 137, Potassium Level 3.8, Chloride Level 90L, Carbon Dioxide Level 45H, Calcium Level 8.5L, Magnesium Level 1.9 01/26/19 11:38: Bedside Glucose (Misc Panel) 287H 01/26/19 17:14: Bedside Glucose (Misc Panel) 207H CBC/BMP Laboratory Tests 01/26/19 05:17 Red Blood Count 4.21, Mean Corpuscular Volume 89.8, Mean Corpuscular Hemoglobin 26.8 L, Mean Corpuscular Hemoglobin Concent 29.9 L, Red Cell Distribution Width 15.0 H, Calcium Level 8.5 L Microbiology Microbiology 01/21/19 Blood Culture - Final, Complete NO GROWTH AFTER 5 DAYS 01/21/19 Blood Culture - Final, Complete NO GROWTH AFTER 5 DAYS DAMIR HURLEY MD Jan 26, 2019 17:32
[2019-01-26] MEDS: ALPRAZolam 0.5 MG TAB PO PRN (18:37)
--- NOTE | 2019-01-26 19:07 | REP ---
HISTORY: Dyspnea. COMPARISON: 01/21/2019 The technique utilized in obtaining the radiograph has magnified the cardiac silhouette and accentuated the interstitial markings. The superior mediastinal structures are midline. The cardiac silhouette is unremarkable in size, shape, and position. The diaphragmatic surfaces of the lungs are regular, and the costophrenic angles are clear. The pulmonary cherry are clear. The imaged osseous structures are intact. IMPRESSION: There is no acute cardiopulmonary disease. Electronically Signed by Biju Bhatti DO 01/26/2019 07:48 P
[2019-01-26] MEDS: LEVEMIR (INSULIN DETEMIR) 1 UNITS/0.01ML SC SCH (21:00)
[2019-01-26] MEDS: ATORVASTATIN 20 MG TAB PO SCH (22:16)
[2019-01-27] VITALS (7 sets, daily range): BP systolic 131–139; BP diastolic 78–83; O2SAT 94–98
[2019-01-27] MEDS: IPRATROPIUM 0.5MG/ALBUTEROL 2.5MG INH SOL UD 3ML (DUONEB)(J7620) NEB SCH ×7 (00:17→23:20)
[2019-01-27] MEDS: LEVOTHYROXINE 25MCG TABLET (0.025MG) PO SCH (05:41)
[2019-01-27] MEDS: methylPREDNISolone INJ 40 MG/1 ML VIAL (J2920) IV SCH ×2 (05:41→17:21)
[2019-01-27] MEDS: SLF 3 ML SYR IV SCH ×3 (05:42→21:08)
[2019-01-27 06:24] LABS: HEMATOCRIT 39.1 % (36.0-47.0); HEMOGLOBIN 11.9 g/dl (12.0-15.5); MEAN CORPUSCULAR HEMOGLOBIN 27.9 pg (27.0-33.0); MEAN CORPUSCULAR HGB CONC 30.4 g/dl (32.0-36.5); MEAN CORPUSCULAR VOLUME 91.6 fl (80.0-96.0); PLATELET COUNT, AUTOMATED 338 10^3/uL (150-450); RED BLOOD COUNT 4.27 10^6/uL (4.00-5.40)
[2019-01-27 06:51] LABS: BLOOD UREA NITROGEN 15 MG/DL (7-18); CALCIUM LEVEL 8.8 MG/DL (8.8-10.2); CARBON DIOXIDE LEVEL 43 MEQ/L (21-32); CHLORIDE LEVEL 94 MEQ/L (98-107); CREATININE FOR GFR 0.41 MG/DL (0.55-1.30); GLOMERULAR FILTRATION RATE > 60.0 (>45); GLUCOSE, FASTING 198 MG/DL (70-100); SODIUM LEVEL 139 MEQ/L (136-145)
[2019-01-27] MEDS: GABAPENTIN 400 MG CAP PO SCH ×2 (08:17→21:07)
[2019-01-27] MEDS: ASPIRIN 81 MG ENTERIC TAB PO SCH (08:17)
[2019-01-27] MEDS: ANEXSIA, NORCO 7.5MG/325MG TABLET(HYDROCODONE/APAP) PO PRN (08:17)
[2019-01-27] MEDS: SENOKOT S TAB PO SCH ×3 (08:17→21:06)
[2019-01-27] MEDS: busPIRone 5 MG TAB PO SCH ×2 (08:17→21:06)
[2019-01-27] MEDS: PANTOPRAZOLE 40MG TAB (PROTONIX) PO SCH (08:17)
[2019-01-27] MEDS: FUROSEMIDE 40 MG TAB PO SCH (08:19)
[2019-01-27] MEDS: BISOPROLOL FUM 2.5 MG PER 1/2TAB PO SCH (08:19)
[2019-01-27] MEDS: ENOXAPARIN 40 MG/0.4 ML SYRINGE (J1650) SC SCH (08:20)
[2019-01-27] MEDS: HumaLOG INSULIN (NovoLOG) PER UNIT SC SCH ×3 (08:20→17:21)
[2019-01-27] MEDS: MIRALAX *UNIT DOSE* 17GM PACKET PO SCH ×2 (08:20→21:00)
[2019-01-27] MEDS: FLUTICASONE PROP 0.05% NASAL SPRAY 16 GM (FLONASE) NARES SCH (10:10)
--- NOTE | 2019-01-27 11:17 | IPNPDOC ---
Text Note Date of Service The patient was seen on 01/27/19. NOTE SUBJECTIVE: Patient states her breathing continues to improve, but still not at baseline. No acute overnight events reported, no new medical complaints. OBJECTIVE: General: NAD, sitting comfortably in bed HEENT: NC/AT, EOMI Lungs: Scattered wheezes Heart: +S1S2, RRR Abd: soft, obese, NT, +BS Ext: trace edema ASSESSMENT/PLAN: This is a 63-year-old with cor pulmonale, COPD, and HFpEF with multiple admissions due to hypercapnic and hypoxic respiratory failure due to medical noncompliance. #acute on chronic hypoxic respiratory failure - secondary to decompensated heart failure complicated with COPD exacerbation - continue lasix and solumedrol - difficulty with weaning pt off the vapotherm due to persistent desaturation #COPD exacerbation - currently on Vapotherm, CPAP, and Solu-Medrol nebulizer treatments - Per pulmonary patient may followup 2 weeks after hospital discharge - Vapotherm currently with goal of 88-92% oxygen saturation due to chronic hypercarbic respiratory failure - She is continued on acapella, Advair, Spiriva - still having difficulty weaning her off the vapotherm #SUYAPA - continue BiPAP and oxygen. #Anxiety - On BuSpar to avoid benzodiazepines. #HFpEF/Cor pulmonale: - has been net negative balance on lasix.strict i/o - daily weights and fluid restriction disposition: unable to work with physical therapy due to o2 desaturations. VS,Fishbone, I+O VS, Fishbone, I+O Laboratory Tests 01/27/19 05:16 Red Blood Count 4.27, Mean Corpuscular Volume 91.6, Mean Corpuscular Hemoglobin 27.9, Mean Corpuscular Hemoglobin Concent 30.4 L, Red Cell Distribution Width 14.9 H, Calcium Level 8.8 Vital Signs Date Time Temp Pulse Resp B/P (MAP) Pulse Ox O2 Delivery O2 Flow Rate FiO2 01/27/19 08:47 18 01/27/19 08:19 90 113/65 01/27/19 06:00 98.1 97 4.0 01/27/19 04:15 BIPAP/CPAP 01/26/19 09:00 35 I&O- Last 24 Hours up to 6 AM 01/27/19 06:00 Intake Total 2640 ml Output Total 800 ml Balance 1840 ml LALDIN,JUDE S. MD Jan 27, 2019 11:17
--- NOTE | 2019-01-27 16:10 | ECHO ---
DATE OF STUDY: 01/27/2019 REFERRING PHYSICIAN: Dr. Sarah Rizo INDICATION: Dyspnea. HEIGHT: 66 inches WEIGHT: 86.8 kg 2-D MEASUREMENTS: Left atrium: 3.5 cm Aortic root: 2.7 cm Ventricular septum: 1.09 cm Posterior wall: 1.13 cm Left ventricle diastole: 4.8 cm LVOT: 2.0 cm Inferior vena cava: 2.8 cm with more than 50% of respiratory variation. DOPPLER MEASUREMENTS: Aortic valve velocity: 117 cm/s LVOT velocity: 114 cm/s LVOT VTI: 24.8 cm Mitral E velocity: 84.9 cm/s Mitral A velocity: 93.3 cm/s Mitral deceleration time: 225 ms Very mild tricuspid regurgitation. No aortic regurgitation. No mitral regurgitation. No pulmonic regurgitation. Pulmonary artery systolic pressure: 17 mmHg MITRAL ANNULAR TISSUE DOPPLER: E prime septal: 5.75 cm/s E prime lateral: 6.92 cm/s DESCRIPTION: Rhythm was sinus. This was a moderately technically difficult echocardiogram. No suprasternal notch view was present due to presence of a bandage. CONCLUSIONS: 1. Normal left ventricle internal dimensions and wall thickness. Normal regional LV wall motion. Hyperdynamic LV systolic function. Left ventricular ejection fraction (LVEF) 70-75% by visual estimate. Grade 1 LV diastolic dysfunction. 2. Moderate mitral annular calcification. No mitral stenosis. No mitral regurgitation. 3. No pericardial effusion. 4. Mild aortic valve sclerosis of a 3-cusp aortic valve. No aortic regurgitation. 5. Inferior vena cava with normal respiratory variation, therefore, suggestive of central venous pressure in the range 5-10 mmHg. MTDD
[2019-01-27] MEDS: ATORVASTATIN 20 MG TAB PO SCH (21:07)
[2019-01-27] MEDS: LEVEMIR (INSULIN DETEMIR) 1 UNITS/0.01ML SC SCH (21:08)
[2019-01-27] MEDS: ALPRAZolam 0.5 MG TAB PO PRN (21:26)
[2019-01-28] MEDS: IPRATROPIUM 0.5MG/ALBUTEROL 2.5MG INH SOL UD 3ML (DUONEB)(J7620) NEB SCH ×6 (03:02→23:08)
[2019-01-28] MEDS: methylPREDNISolone INJ 40 MG/1 ML VIAL (J2920) IV SCH ×2 (04:57→17:29)
[2019-01-28] MEDS: LEVOTHYROXINE 25MCG TABLET (0.025MG) PO SCH (05:35)
[2019-01-28] MEDS: SLF 3 ML SYR IV SCH ×3 (05:36→21:44)
[2019-01-28 06:38] LABS: HEMATOCRIT 39.1 % (36.0-47.0); HEMOGLOBIN 11.6 g/dl (12.0-15.5); MEAN CORPUSCULAR HEMOGLOBIN 27.4 pg (27.0-33.0); MEAN CORPUSCULAR HGB CONC 29.7 g/dl (32.0-36.5); MEAN CORPUSCULAR VOLUME 92.4 fl (80.0-96.0); PLATELET COUNT, AUTOMATED 360 10^3/uL (150-450); RED BLOOD COUNT 4.23 10^6/uL (4.00-5.40); WHITE BLOOD COUNT 12.5 10^3/uL (4.0-10.0)
[2019-01-28 06:45] VITALS: BP 158/90
[2019-01-28 06:55] LABS: BLOOD UREA NITROGEN 17 MG/DL (7-18); CARBON DIOXIDE LEVEL 45 MEQ/L (21-32); CHLORIDE LEVEL 94 MEQ/L (98-107); GLOMERULAR FILTRATION RATE > 60.0 (>45); GLUCOSE, FASTING 192 MG/DL (70-100); MAGNESIUM LEVEL 1.9 MG/DL (1.8-2.4); SODIUM LEVEL 139 MEQ/L (136-145)
[2019-01-28] MEDS: HumaLOG INSULIN (NovoLOG) PER UNIT SC SCH ×3 (08:41→17:29)
[2019-01-28] MEDS: ENOXAPARIN 40 MG/0.4 ML SYRINGE (J1650) SC SCH (08:41)
[2019-01-28] MEDS: SENOKOT S TAB PO SCH ×2 (08:42→21:43)
[2019-01-28] MEDS: GABAPENTIN 400 MG CAP PO SCH ×2 (08:42→21:42)
[2019-01-28] MEDS: MIRALAX *UNIT DOSE* 17GM PACKET PO SCH ×2 (08:42→21:43)
[2019-01-28] MEDS: FLUTICASONE PROP 0.05% NASAL SPRAY 16 GM (FLONASE) NARES SCH (08:42)
[2019-01-28] MEDS: PANTOPRAZOLE 40MG TAB (PROTONIX) PO SCH (08:42)
[2019-01-28] MEDS: ASPIRIN 81 MG ENTERIC TAB PO SCH (08:42)
[2019-01-28] MEDS: BISOPROLOL FUM 2.5 MG PER 1/2TAB PO SCH (08:42)
[2019-01-28] MEDS: FUROSEMIDE 40 MG TAB PO SCH (08:42)
[2019-01-28] MEDS: busPIRone 5 MG TAB PO SCH ×2 (08:42→21:43)
[2019-01-28] MEDS: ANEXSIA, NORCO 7.5MG/325MG TABLET(HYDROCODONE/APAP) PO PRN (08:44)
[2019-01-28 09:00] VITALS: O2SAT 93
[2019-01-28 14:50] VITALS: BP 134/77
--- NOTE | 2019-01-28 15:51 | IPNPDOC ---
Date Seen The patient was seen on 01/28/19. Progress Note SUBJECTIVE: off vapotherm, with improved ambulation. walked about 20 feet and despite desaturating to mid 80's on her oxygen saturation, pt says she recovered quickly on sitting down when she got back. no fever, chills. dyspnea at rest. denies chest pain, lightheadedness, or dizziness anxious to go home soon. OBJECTIVE: PHYSICAL EXAMINATION: VITALS: PLS SEE BELOW Generally, patient is awake, alert, oriented times three. Answering questions appropriately. She has no use of accessory respiratory muscles. no conversational dyspnea. no pallor. HEENT: No nasal flaring. No cyanosis. No icterus or jaundice. no tripod positioning no conversational dyspnea Lungs are diminished with faint expiratory wheezing bilaterally. Heart: S1, S2, sinus rhythm. Abdomen is soft, nontender, nondistended. Extremities: No cyanosis, clubbing with trace edema. LABORATORY DATA, MICROBIOLOGY, IMAGING STUDIES: REVIEWED CURRENT MEDICATIONS: Solu-Medrol 40 IV every 12 hours., Lasix 40 mg daily, Protonix 40 mg daily, BuSpar 5 mg twice a day,DuoNeb 3 mL, Lovenox, aspirin, bisoprolol, Flonase, levothyroxine,Abilify, Lipitor, Neurontin, Levemir insulin, Xanax, Tessalon Perles, [place], Atarax, Humulin insulin, Hypoglycemic protocol ASSESSMENT/PLAN: This is a 63-year-old with nor pulmonale, chronic obstructive pulmonary disease (COPD), congestive heart failure (CHF) with diastolic dysfunction with multiple admissions due to hypercapnic and hypoxic respiratory failure due to medical noncompliance with [facility] for assisted living but currently wanting to go home. CURRENT ISSUES: Acute on chronic hypoxic respiratory failure: due to decompensated chf diastolic dysfunction with preserved EF, and copd exacerbation changed lasix to iv due to positive balance and wt gain continue with iv solumedrol off the vapotherm still desaturates with ambulation, but cleared by PT for dc home. Chronic obstructive pulmonary disease (COPD) exacerbation: off vapotherm, and cleared by PT to go home. on CPAP, and Solu-Medrol nebulizer treatments. Per pulmonary patient may followup 2 weeks after hospital discharge. Vapotherm currently with goal of 88-92% oxygen saturation due to chronic hypercarbic respiratory failure. She is continued on acapella, Advair, Spiriva. She is continued on BiPAP 04/29 with 2 liters nasal cannula oxygen bleed-in for obstructive sleep apnea (SUYAPA). still having difficulty weaning her off the vapotherm. repeat cxr: no acute cardiopulm findings Obstructive sleep apnea (SUYAPA): Continue on BiPAP and oxygen. Anxiety: On BuSpar to avoid benzodiazepines. decompensated CHF with preserved EF/ Cor pulmonale: changed lasix to iv due to positive balance and wt gain strict i/o daily weights and fluid restriction disposition: passed PT and ok to dc home, but needs further diuresis since pt has been net positive balance with weight gain. will taper down steroids thursday and dc plans thursday. VS, I&O, 24H, Fishbone Vital Signs/I&O Vital Signs Date Time Temp Pulse Resp B/P (MAP) Pulse Ox O2 Delivery O2 Flow Rate FiO2 01/28/19 09:14 18 01/28/19 09:00 93 Nasal Cannula 4.0 01/28/19 08:42 94 150/78 01/28/19 06:45 97.7 01/26/19 09:00 35 I&O- Last 24 Hours up to 6 AM 01/28/19 06:00 Intake Total 2060 ml Output Total 0 ml Balance 2060 ml Laboratory Data 24H LABS Laboratory Tests 2 01/27/19 16:43: Bedside Glucose (Misc Panel) 295H 01/27/19 20:16: Bedside Glucose (Misc Panel) 214H 01/27/19 21:25: Methicillin-Resist S.aureus DNA PCR NOT DETECTED 01/28/19 05:35: Nucleated Red Blood Cells % (auto) 0.0, Anion Gap 0L, Glomerular Filtration Rate > 60.0, Blood Urea Nitrogen 17, Creatinine 0.40L, Sodium Level 139, Potassium Level 4.0, Chloride Level 94L, Carbon Dioxide Level 45H, Calcium Level 9.0, Magnesium Level 1.9 01/28/19 11:25: Bedside Glucose (Misc Panel) 288H CBC/BMP Laboratory Tests 01/28/19 05:35 Red Blood Count 4.23, Mean Corpuscular Volume 92.4, Mean Corpuscular Hemoglobin 27.4, Mean Corpuscular Hemoglobin Concent 29.7 L, Red Cell Distribution Width 14.8 H, Calcium Level 9.0 Microbiology Microbiology 01/21/19 Blood Culture - Final, Complete NO GROWTH AFTER 5 DAYS 01/21/19 Blood Culture - Final, Complete NO GROWTH AFTER 5 DAYS DAMIR HURLEY MD Jan 28, 2019 15:51
[2019-01-28] MEDS: FUROSEMIDE 40 MG/4 ML VIAL (J1940) IV SCH (17:29)
[2019-01-28] MEDS: LEVEMIR (INSULIN DETEMIR) 1 UNITS/0.01ML SC SCH (21:43)
[2019-01-28] MEDS: ATORVASTATIN 20 MG TAB PO SCH (21:43)
[2019-01-28 22:00] VITALS: BP 135/73
[2019-01-28] MEDS: ALPRAZolam 0.5 MG TAB PO PRN (22:09)
[2019-01-29 02:59] VITALS: O2SAT 96
[2019-01-29] MEDS: methylPREDNISolone INJ 40 MG/1 ML VIAL (J2920) IV SCH (04:23)
[2019-01-29] MEDS: IPRATROPIUM 0.5MG/ALBUTEROL 2.5MG INH SOL UD 3ML (DUONEB)(J7620) NEB SCH ×5 (04:23→18:52)
[2019-01-29] MEDS: LEVOTHYROXINE 25MCG TABLET (0.025MG) PO SCH (05:32)
[2019-01-29] MEDS: SLF 3 ML SYR IV SCH ×3 (05:47→21:46)
[2019-01-29 05:48] LABS: HEMATOCRIT 37.9 % (36.0-47.0); HEMOGLOBIN 11.3 g/dl (12.0-15.5); MEAN CORPUSCULAR HEMOGLOBIN 26.7 pg (27.0-33.0); MEAN CORPUSCULAR HGB CONC 29.8 g/dl (32.0-36.5); MEAN CORPUSCULAR VOLUME 89.6 fl (80.0-96.0); PLATELET COUNT, AUTOMATED 366 10^3/uL (150-450); RED BLOOD COUNT 4.23 10^6/uL (4.00-5.40)
[2019-01-29 06:00] VITALS: BP 144/88
[2019-01-29 06:30] LABS: BLOOD UREA NITROGEN 19 MG/DL (7-18); CALCIUM LEVEL 8.9 MG/DL (8.8-10.2); CARBON DIOXIDE LEVEL 49 MEQ/L (21-32); CHLORIDE LEVEL 91 MEQ/L (98-107); CREATININE FOR GFR 0.46 MG/DL (0.55-1.30); GLOMERULAR FILTRATION RATE > 60.0 (>45); GLUCOSE, FASTING 246 MG/DL (70-100); POTASSIUM SERUM 3.6 MEQ/L (3.5-5.1); SODIUM LEVEL 138 MEQ/L (136-145)
[2019-01-29] MEDS: ASPIRIN 81 MG ENTERIC TAB PO SCH (08:08)
[2019-01-29] MEDS: HumaLOG INSULIN (NovoLOG) PER UNIT SC SCH ×3 (08:08→18:14)
[2019-01-29] MEDS: PANTOPRAZOLE 40MG TAB (PROTONIX) PO SCH (08:09)
[2019-01-29] MEDS: BISOPROLOL FUM 2.5 MG PER 1/2TAB PO SCH (08:09)
[2019-01-29] MEDS: busPIRone 5 MG TAB PO SCH ×2 (08:09→21:45)
[2019-01-29] MEDS: GABAPENTIN 400 MG CAP PO SCH ×2 (08:09→21:46)
[2019-01-29] MEDS: SENOKOT S TAB PO SCH ×2 (08:09→21:45)
[2019-01-29] MEDS: ENOXAPARIN 40 MG/0.4 ML SYRINGE (J1650) SC SCH (08:10)
[2019-01-29] MEDS: MIRALAX *UNIT DOSE* 17GM PACKET PO SCH ×2 (08:10→20:01)
[2019-01-29] MEDS: FLUTICASONE PROP 0.05% NASAL SPRAY 16 GM (FLONASE) NARES SCH (08:11)
[2019-01-29] MEDS: FUROSEMIDE 40 MG/4 ML VIAL (J1940) IV SCH ×2 (08:45→16:39)
[2019-01-29 09:00] VITALS: O2SAT 94
[2019-01-29] MEDS: POTASSIUM CHLORIDE 10 MEQ SR TABLET PO SCH ×2 (09:54→21:45)
[2019-01-29] MEDS: predniSONE 20 MG TAB PO SCH ×2 (09:54→21:45)
[2019-01-29] MEDS ORDERED: metOLazone 5 MG TAB PO ONE (10:00)
[2019-01-29 14:00] VITALS: BP 113/64
--- NOTE | 2019-01-29 14:41 | IPNPDOC ---
Date Seen The patient was seen on 01/29/19. Progress Note SUBJECTIVE: despite improved sob at rest, still desaturates to 85-86% on oxygen with ambulation. upset that her bipap was not placed on her last night, and did not know how to put it on herself. c/o not sleeping well and occasional chest tightness because she couldn't breathe. no c/o wheezing, nausea, vomiting, abd pain, chest pain this morning. OBJECTIVE: PHYSICAL EXAMINATION: VITALS: PLS SEE BELOW Generally, patient is awake, alert, oriented times three. Answering questions appropriately. She has no use of accessory respiratory muscles. no conversational dyspnea. no pallor. HEENT: No nasal flaring. No cyanosis. No icterus or jaundice. no tripod positioning no conversational dyspnea Lungs are diminished with faint expiratory wheezing bilaterally. Heart: S1, S2, sinus rhythm. Abdomen is soft, nontender, nondistended. Extremities: No cyanosis, clubbing with trace edema. LABORATORY DATA, MICROBIOLOGY, IMAGING STUDIES: REVIEWED CURRENT MEDICATIONS: prednisone taper., Lasix iv for net negative goal, Protonix 40 mg daily, BuSpar 5 mg twice a day,DuoNeb 3 mL, Lovenox, aspirin, bisoprolol, Flonase, levothyroxine,Abilify, Lipitor, Neurontin, Levemir insulin, Xanax, Tessalon Perles, [place], Atarax, Humulin insulin, Hypoglycemic protocol ASSESSMENT/PLAN: This is a 63-year-old with nor pulmonale, chronic obstructive pulmonary disease (COPD), congestive heart failure (CHF) with diastolic dysfunction with multiple admissions due to hypercapnic and hypoxic respiratory failure due to medical noncompliance with [facility] for assisted living but currently wanting to go home. CURRENT ISSUES: Acute on chronic hypoxic respiratory failure: due to decompensated chf diastolic dysfunction with preserved EF, and copd exacerbation changed lasix to iv due to positive balance and wt gain continue with prednisone taper off the vapotherm still desaturates with ambulation, but cleared by PT for dc home. Chronic obstructive pulmonary disease (COPD) exacerbation: off vapotherm, and cleared by PT to go home. on CPAP, and tapered prednisone nebulizer treatments. Per pulmonary patient may followup 2 weeks after hospital discharge. She is continued on acapella, Advair, Spiriva. She is continued on BiPAP 04/29 with 2 liters nasal cannula oxygen bleed-in for obstructive sleep apnea (SUYAPA). repeat cxr: no acute cardiopulm findings Obstructive sleep apnea (SUYAPA): Continue on BiPAP and oxygen. Anxiety: On BuSpar to avoid benzodiazepines. decompensated CHF with preserved EF/ Cor pulmonale: changed lasix to iv due to positive balance and wt gain strict i/o daily weights and fluid restriction disposition: passed PT and ok to dc home, but needs further diuresis since pt has been net positive balance with weight gain. will taper down steroids thursday and dc plans thursday. VS, I&O, 24H, Fishbone Vital Signs/I&O Vital Signs Date Time Temp Pulse Resp B/P (MAP) Pulse Ox O2 Delivery O2 Flow Rate FiO2 01/29/19 14:00 98.2 88 18 113/64 (80) 91 2.5 01/29/19 09:00 Nasal Cannula 01/26/19 09:00 35 I&O- Last 24 Hours up to 6 AM 01/29/19 06:00 Intake Total 1240 ml Balance 1240 ml Laboratory Data 24H LABS Laboratory Tests 2 01/28/19 16:41: Bedside Glucose (Misc Panel) 287H 01/28/19 20:07: Bedside Glucose (Misc Panel) 295H 01/29/19 05:21: Nucleated Red Blood Cells % (auto) 0.0, Anion Gap , Glomerular Filtration Rate > 60.0, Blood Urea Nitrogen 19H, Creatinine 0.46L, Sodium Level 138, Potassium Level 3.6, Chloride Level 91L, Carbon Dioxide Level 49H, Calcium Level 8.9, Magnesium Level 2.0 01/29/19 11:36: Bedside Glucose (Misc Panel) 294H CBC/BMP Laboratory Tests 01/29/19 05:21 Red Blood Count 4.23, Mean Corpuscular Volume 89.6, Mean Corpuscular Hemoglobin 26.7 L, Mean Corpuscular Hemoglobin Concent 29.8 L, Red Cell Distribution Width 14.9 H, Calcium Level 8.9 Microbiology Microbiology 01/21/19 Blood Culture - Final, Complete NO GROWTH AFTER 5 DAYS 01/21/19 Blood Culture - Final, Complete NO GROWTH AFTER 5 DAYS DAMIR HURLEY MD Jan 29, 2019 14:37
[2019-01-29] MEDS: ANEXSIA, NORCO 7.5MG/325MG TABLET(HYDROCODONE/APAP) PO PRN (18:39)
[2019-01-29] MEDS: ATORVASTATIN 20 MG TAB PO SCH (21:45)
[2019-01-29] MEDS: LEVEMIR (INSULIN DETEMIR) 1 UNITS/0.01ML SC SCH (21:46)
[2019-01-29 22:00] VITALS: BP 117/67
[2019-01-30] MEDS: IPRATROPIUM 0.5MG/ALBUTEROL 2.5MG INH SOL UD 3ML (DUONEB)(J7620) NEB SCH ×7 (00:10→23:32)
[2019-01-30] MEDS: FUROSEMIDE 40 MG/4 ML VIAL (J1940) IV SCH ×4 (00:10→21:41)
[2019-01-30 01:00] VITALS: O2SAT 93
[2019-01-30] MEDS: LEVOTHYROXINE 25MCG TABLET (0.025MG) PO SCH (05:43)
[2019-01-30] MEDS: SLF 3 ML SYR IV SCH ×3 (05:44→21:43)
[2019-01-30 06:00] VITALS: BP 135/83
[2019-01-30 06:18] LABS: HEMATOCRIT 40.9 % (36.0-47.0); HEMOGLOBIN 12.6 g/dl (12.0-15.5); MEAN CORPUSCULAR HEMOGLOBIN 26.8 pg (27.0-33.0); MEAN CORPUSCULAR HGB CONC 30.8 g/dl (32.0-36.5); PLATELET COUNT, AUTOMATED 419 10^3/uL (150-450); WHITE BLOOD COUNT 15.4 10^3/uL (4.0-10.0)
[2019-01-30 06:47] LABS: BLOOD UREA NITROGEN 22 MG/DL (7-18); CALCIUM LEVEL 9.3 MG/DL (8.8-10.2); CARBON DIOXIDE LEVEL 44 MEQ/L (21-32); CHLORIDE LEVEL 82 MEQ/L (98-107); GLOMERULAR FILTRATION RATE > 60.0 (>45); GLUCOSE, FASTING 370 MG/DL (70-100); MAGNESIUM LEVEL 1.7 MG/DL (1.8-2.4); POTASSIUM SERUM 3.6 MEQ/L (3.5-5.1); SODIUM LEVEL 133 MEQ/L (136-145)
[2019-01-30] MEDS ORDERED: MAG SULF 1GM/100ML (MAG RUN) 1 GM in IV 1 EA IV ONE (08:30)
[2019-01-30] MEDS: HumaLOG INSULIN (NovoLOG) PER UNIT SC SCH ×3 (08:30→17:24)
[2019-01-30] MEDS: GABAPENTIN 400 MG CAP PO SCH ×2 (08:31→21:40)
[2019-01-30] MEDS: ASPIRIN 81 MG ENTERIC TAB PO SCH (08:31)
[2019-01-30] MEDS: busPIRone 5 MG TAB PO SCH ×2 (08:31→21:42)
[2019-01-30] MEDS: BISOPROLOL FUM 2.5 MG PER 1/2TAB PO SCH (08:31)
[2019-01-30] MEDS: ENOXAPARIN 40 MG/0.4 ML SYRINGE (J1650) SC SCH (08:32)
[2019-01-30] MEDS: MIRALAX *UNIT DOSE* 17GM PACKET PO SCH ×2 (08:32→21:00)
[2019-01-30] MEDS: PANTOPRAZOLE 40MG TAB (PROTONIX) PO SCH (08:32)
[2019-01-30] MEDS: predniSONE 20 MG TAB PO SCH ×2 (08:32→21:41)
[2019-01-30] MEDS: POTASSIUM CHLORIDE 10 MEQ SR TABLET PO SCH ×2 (08:32→21:41)
[2019-01-30] MEDS: SENOKOT S TAB PO SCH ×2 (08:33→21:00)
[2019-01-30] MEDS: FLUTICASONE PROP 0.05% NASAL SPRAY 16 GM (FLONASE) NARES SCH (08:33)
[2019-01-30 09:00] VITALS: O2SAT 94
[2019-01-30 14:00] VITALS: BP 136/83
--- NOTE | 2019-01-30 14:15 | IPNPDOC ---
Date Seen The patient was seen on 01/30/19. Progress Note SUBJECTIVE: requesting a week's worth of anxiolytic because "I'm claustrophobic" when she wears her cpap mask. sob is improved no chest pain cough chills or fever still with some JACOBSEN but much more comfortable, and anxious to go home. says she knows how to use her cpap at home,but will ask again on how to operate it once she gets home. OBJECTIVE: PHYSICAL EXAMINATION: VITALS: PLS SEE BELOW Generally, sitting 90 degrees in bed. patient is awake, alert, oriented times three. Answering questions appropriately. She has no use of accessory respiratory muscles. no conversational dyspnea. no pallor. HEENT: No nasal flaring. No cyanosis. No icterus or jaundice. no tripod positioning no conversational dyspnea Lungs are diminished Heart: S1, S2, sinus rhythm. Abdomen is soft, nontender, nondistended. Extremities: No cyanosis, clubbing with trace edema. LABORATORY DATA, MICROBIOLOGY, IMAGING STUDIES: REVIEWED CURRENT MEDICATIONS: prednisone taper., Lasix iv for net negative goal, Protonix 40 mg daily, BuSpar 5 mg twice a day,DuoNeb 3 mL, Lovenox, aspirin, bisoprolol, Flonase, levothyroxine,Abilify, Lipitor, Neurontin, Levemir insulin, Xanax, Tessalon Perles, [place], Atarax, Humulin insulin, Hypoglycemic protocol ASSESSMENT/PLAN: This is a 63-year-old with nor pulmonale, chronic obstructive pulmonary disease (COPD), congestive heart failure (CHF) with diastolic dysfunction with multiple admissions due to hypercapnic and hypoxic respiratory failure due to medical noncompliance with [facility] for assisted living but currently wanting to go home. CURRENT ISSUES: Acute on chronic hypoxic respiratory failure: due to decompensated chf diastolic dysfunction with preserved EF, and copd exacerbation changed lasix to iv due to positive balance and wt gain continue with prednisone taper off the vapotherm still desaturates with ambulation, but cleared by PT for dc home. Chronic obstructive pulmonary disease (COPD) exacerbation: off vapotherm, and cleared by PT to go home. on CPAP, and tapered prednisone nebulizer treatments. Per pulmonary patient may followup 2 weeks after hospital discharge. She is continued on acapella, Advair, Spiriva. She is continued on BiPAP 04/29 with 2 liters nasal cannula oxygen bleed-in for obstructive sleep apnea (SUYAPA). repeat cxr: no acute cardiopulm findings. Obstructive sleep apnea (SUYAPA): Continue on BiPAP and oxygen. Anxiety: On BuSpar to avoid benzodiazepines. decompensated CHF with preserved EF/ Cor pulmonale: changed lasix to iv due to positive balance and wt gain strict i/o daily weights and fluid restriction disposition: passed PT and ok to dc home, but needs further diuresis . dc plans thursday. VS, I&O, 24H, Fishbone Vital Signs/I&O Vital Signs Date Time Temp Pulse Resp B/P (MAP) Pulse Ox O2 Delivery O2 Flow Rate FiO2 01/30/19 14:00 98.0 83 17 136/83 (100) 93 2.5 01/30/19 09:00 Nasal Cannula 01/26/19 09:00 35 I&O- Last 24 Hours up to 6 AM 01/30/19 06:00 Intake Total 1665 ml Output Total 2950 ml Balance -1285 ml Laboratory Data 24H LABS Laboratory Tests 2 01/29/19 16:50: Bedside Glucose (Misc Panel) 342H 01/29/19 20:22: Bedside Glucose (Misc Panel) 304H 01/30/19 05:41: Nucleated Red Blood Cells % (auto) 0.0, Anion Gap 7L, Glomerular Filtration Rate > 60.0, Blood Urea Nitrogen 22H, Creatinine 0.70#, Sodium Level 133L, Potassium Level 3.6, Chloride Level 82L, Carbon Dioxide Level 44H, Calcium Level 9.3, Magnesium Level 1.7L 01/30/19 11:56: Bedside Glucose (Misc Panel) 295H CBC/BMP Laboratory Tests 01/30/19 05:41 Red Blood Count 4.70, Mean Corpuscular Volume 87.0, Mean Corpuscular Hemoglobin 26.8 L, Mean Corpuscular Hemoglobin Concent 30.8 L, Red Cell Distribution Width 14.8 H, Calcium Level 9.3 Microbiology Microbiology 01/21/19 Blood Culture - Final, Complete NO GROWTH AFTER 5 DAYS 01/21/19 Blood Culture - Final, Complete NO GROWTH AFTER 5 DAYS DAMIR HURLEY MD Jan 30, 2019 14:15
[2019-01-30] MEDS ORDERED: PRED10TA2 PO (19:42)
[2019-01-30 20:43] LABS: BLOOD UREA NITROGEN 30 MG/DL (7-18); CALCIUM LEVEL 9.3 MG/DL (8.8-10.2); CARBON DIOXIDE LEVEL 42 MEQ/L (21-32); CHLORIDE LEVEL 85 MEQ/L (98-107); GLOMERULAR FILTRATION RATE > 60.0 (>45); GLUCOSE, FASTING 326 MG/DL (70-100); MAGNESIUM LEVEL 1.9 MG/DL (1.8-2.4); POTASSIUM SERUM 3.3 MEQ/L (3.5-5.1); SODIUM LEVEL 133 MEQ/L (136-145)
[2019-01-30 21:30] VITALS: O2SAT 96
[2019-01-30] MEDS: ATORVASTATIN 20 MG TAB PO SCH (21:41)
[2019-01-30] MEDS: LEVEMIR (INSULIN DETEMIR) 1 UNITS/0.01ML SC SCH (21:43)
[2019-01-30] MEDS: ALPRAZolam 0.5 MG TAB PO PRN (23:36)
[2019-01-31] MEDS: FUROSEMIDE 40 MG/4 ML VIAL (J1940) IV SCH ×2 (02:36→08:14)
[2019-01-31] MEDS: IPRATROPIUM 0.5MG/ALBUTEROL 2.5MG INH SOL UD 3ML (DUONEB)(J7620) NEB SCH ×3 (03:55→11:24)
[2019-01-31] MEDS: LEVOTHYROXINE 25MCG TABLET (0.025MG) PO SCH (05:53)
[2019-01-31] MEDS: SLF 3 ML SYR IV SCH (05:55)
[2019-01-31 06:00] VITALS: BP 129/79
[2019-01-31 06:00] LABS: HEMATOCRIT 42.7 % (36.0-47.0); HEMOGLOBIN 13.3 g/dl (12.0-15.5); MEAN CORPUSCULAR HEMOGLOBIN 27.3 pg (27.0-33.0); MEAN CORPUSCULAR HGB CONC 31.1 g/dl (32.0-36.5); MEAN CORPUSCULAR VOLUME 87.7 fl (80.0-96.0); PLATELET COUNT, AUTOMATED 421 10^3/uL (150-450); RED BLOOD COUNT 4.87 10^6/uL (4.00-5.40); WHITE BLOOD COUNT 15.2 10^3/uL (4.0-10.0)
[2019-01-31 06:22] LABS: BLOOD UREA NITROGEN 30 MG/DL (7-18); CALCIUM LEVEL 9.3 MG/DL (8.8-10.2); CARBON DIOXIDE LEVEL 40 MEQ/L (21-32); CHLORIDE LEVEL 82 MEQ/L (98-107); CREATININE FOR GFR 0.72 MG/DL (0.55-1.30); GLOMERULAR FILTRATION RATE > 60.0 (>45); GLUCOSE, FASTING 397 MG/DL (70-100); MAGNESIUM LEVEL 1.8 MG/DL (1.8-2.4); POTASSIUM SERUM 3.7 MEQ/L (3.5-5.1); SODIUM LEVEL 131 MEQ/L (136-145)
[2019-01-31] MEDS: HumaLOG INSULIN (NovoLOG) PER UNIT SC SCH ×2 (08:13→12:39)
[2019-01-31] MEDS: POTASSIUM CHLORIDE 10 MEQ SR TABLET PO SCH (08:14)
[2019-01-31] MEDS: ASPIRIN 81 MG ENTERIC TAB PO SCH (08:15)
[2019-01-31] MEDS: GABAPENTIN 400 MG CAP PO SCH (08:15)
[2019-01-31] MEDS: SENOKOT S TAB PO SCH (08:15)
[2019-01-31] MEDS: predniSONE 20 MG TAB PO SCH (08:15)
[2019-01-31 08:16] VITALS: BP 136/84
[2019-01-31] MEDS: busPIRone 5 MG TAB PO SCH (08:16)
[2019-01-31] MEDS: PANTOPRAZOLE 40MG TAB (PROTONIX) PO SCH (08:16)
[2019-01-31] MEDS: MIRALAX *UNIT DOSE* 17GM PACKET PO SCH (08:16)
[2019-01-31] MEDS: BISOPROLOL FUM 2.5 MG PER 1/2TAB PO SCH (08:16)
[2019-01-31] MEDS: FLUTICASONE PROP 0.05% NASAL SPRAY 16 GM (FLONASE) NARES SCH (08:16)
[2019-01-31] MEDS: ENOXAPARIN 40 MG/0.4 ML SYRINGE (J1650) SC SCH (08:17)
[2019-01-31] MEDS ORDERED: BUSP5TA PO (08:48)
--- NOTE | 2019-01-31 14:24 | DS.PDOC ---
Discharge Summary General Date of Admission Jan 21, 2019 at 16:53 Date of Discharge 01/31/19 Discharge Summary DISCHARGE DIAGNOSES: acute on chronic hypoxemic and hypercarbic respiratory failure, SUYAPA noncompliant with BiPAP, hypertension, hyperlipidemia, acute exacerbation of congestive heart failure failure withpreserved EF, diastolic dysfunction hypothyroidism, acute COPD exacerbation, steroid depenedent pulmonary hypertension group 3 cor pulmonale. 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 HOSPITAL COURSE: Acute on chronic hypoxic and hypercapnic respiratory failure: due to decompensated chf diastolic dysfunction with preserved EF, and copd exacerbation. she was managed by cylinder honer, Dr. duque on admission with bipap and stabilized with the vapotherm. She was given buspar for anxiety and educated about not using too much anxiolytics, sedatives, and opioids due to increased risk of hypercarbia. Her solumedrol and lasix were tapered down to oral prednisone and po lasix after diuresis. Chronic obstructive pulmonary disease (COPD) exacerbation: off vapotherm, and cleared by PT to go home. on CPAP, and tapered prednisone nebulizer treatments. Per pulmonary patient may followup 2 weeks after hospital discharge. She is continued on acapella, Advair, Spiriva. She is continued on BiPAP / with 2 liters nasal cannula oxygen bleed-in for obstructive sleep apnea (SUYAPA). repeat cxr: no acute cardiopulm findings. Obstructive sleep apnea (SUYAPA): Continue on BiPAP and oxygen. Anxiety: On BuSpar to avoid benzodiazepines. decompensated CHF with preserved EF/ Cor pulmonale: diuresed well with peak weight of 95.9kg and discharge wt of 84 kg s/p iv lasix, fluid restriction. repeat echo diastolic dysfunction with preserved EF. pt educated on fluid restriction 2liters daily, salt restriction, and fu with pulm and pcp within 5-7days of discharge. DISCHARGE MEDICATIONS: Please see below. ALLERGIES: Please see below. PHYSICAL EXAMINATION ON DISCHARGE: VITAL SIGNS: Please see below. Generally, sitting 90 degrees in bed. patient is awake, alert, oriented times three. Answering questions appropriately. She has no use of accessory respiratory muscles. no conversational dyspnea. no pallor. HEENT: No nasal flaring. No cyanosis. No icterus or jaundice. no tripod posit ioning no conversational dyspnea Lungs are diminished Heart: S1, S2, sinus rhythm. Abdomen is soft, nontender, nondistended. Extremities: No cyanosis, clubbing with trace edema. LABORATORY DATA, IMAGING STUDIES, MICROBIOLOGY: PLS SEE BELOW TIME SPENT ON DISCHARGE: 32 minutes. Vital Signs/I&Os Vital Signs Date Time Temp Pulse Resp B/P (MAP) Pulse Ox O2 Delivery O2 Flow Rate FiO2 01/31/19 09:00 2.0 01/31/19 08:16 91 136/84 01/31/19 06:00 96.0 18 93 01/30/19 21:30 BIPAP/CPAP 01/26/19 09:00 35 I&O- Last 24 Hours up to 6 AM 01/31/19 06:00 Intake Total 1750 ml Output Total 4075 ml Balance -2325 ml Laboratory Data Labs 24H Laboratory Tests 2 01/30/19 16:37: Bedside Glucose (Misc Panel) 433H 01/30/19 19:52: Anion Gap 6L, Glomerular Filtration Rate > 60.0, Blood Urea Nitrogen 30H, Creatinine 0.80, Sodium Level 133L, Potassium Level 3.3L, Chloride Level 85L, Carbon Dioxide Level 42H, Calcium Level 9.3, Magnesium Level 1.9 01/31/19 05:24: Anion Gap 9, Glomerular Filtration Rate > 60.0, Blood Urea Nitrogen 30H, Creatinine 0.72, Sodium Level 131L, Potassium Level 3.7, Chloride Level 82L, Carbon Dioxide Level 40H, Calcium Level 9.3, Magnesium Level 1.8, Nucleated Red Blood Cells % (auto) 0.0 01/31/19 11:41: Bedside Glucose (Misc Panel) 377H CBC/BMP Laboratory Tests 01/30/19 19:52 Calcium Level 9.3 01/31/19 05:24 Calcium Level 9.3, Red Blood Count 4.87, Mean Corpuscular Volume 87.7, Mean Corpuscular Hemoglobin 27.3, Mean Corpuscular Hemoglobin Concent 31.1 L, Red Cell Distribution Width 14.9 H FSBS Laboratory Tests Test 01/30/19 16:37 01/31/19 11:41 Range/Units Bedside Glucose (Misc Panel) 433 377 80-115 MG/DL Microbiology Microbiology 01/21/19 Blood Culture - Final, Complete NO GROWTH AFTER 5 DAYS 01/21/19 Blood Culture - Final, Complete NO GROWTH AFTER 5 DAYS Discharge Medications Scheduled Aripiprazole (Abilify) 5 Mg Tablet, 2.5 MG PO QHS, (Reported) Aspirin (Aspirin EC) 81 Mg Tabec, 81 MG PO DAILY, (Reported) Atorvastatin Calcium (Lipitor) 80 Mg Tab, 80 MG PO QHS, (Reported) Bisoprolol Fumarate (Bisoprolol Fumarate) 5 Mg Tab, 2.5 MG PO DAILY, (Reported) Buspirone HCl (Buspirone HCl) 5 Mg Tablet, 5 MG PO BID Cetirizine HCl (Cetirizine HCl) 10 Mg Tablet, 10 MG PO DAILY, (Reported) Dapagliflozin Propanediol (Farxiga) 10 Mg Tablet, 10 MG PO DAILY, (Reported) Ergocalciferol (Vitamin D2) (Drisdol) 50,000 Unit Cap, 50,000 UNIT PO 1XWK, (Reported) [place] Fluticasone Propion/Salmeterol (Advair Hfa 230-21 Mcg Inhaler) 12 Gm Hfa.aer.ad, 2 PUFF INH BID, (Reported) Fluticasone Propionate (Flonase Allergy Relief) 50 Mcg/Act Spr, 1 SPRAY NARES DAILY, (Reported) Furosemide (Furosemide) 40 Mg Tablet, 40 MG PO DAILY, (Reported) Gabapentin (Gabapentin) 800 Mg Tab, 800 MG PO BID, (Reported) Levothyroxine Sodium (Levoxyl) 25 Mcg Tab, 25 MCG PO DAILY, (Reported) Metformin HCl (Metformin HCl) 1,000 Mg Tab, 1,000 MG PO BID, (Reported) Pantoprazole Sodium (Pantoprazole Sodium) 40 Mg Tab, 40 MG PO DAILY, (Reported) Potassium Chloride (Potassium Chloride) 8 Meq Tablet.er, 8 MEQ PO DAILY, (Reported) Prednisone (Prednisone) 10 Mg Tablet, 10 MG PO TAPER Take 4 tabs daily x 3 days, then 3 tabs daily x 3 days, then 2 tabs daily x 3 days, then 1 tab daily x 3 days and stop Prochlorperazine Maleate (Prochlorperazine Maleate) 10 Mg Tablet, 10 MG PO DAILY, (Reported) Sitagliptin Phosphate (Januvia) 100 Mg Tablet, 100 MG PO DAILY, (Reported) Scheduled PRN Albuterol Sulfate (Ventolin Hfa) 108 Mcg/Act Aer, 2 PUFFS INH Q4H PRN for SHORTNESS OF BREATH, (Reported) Benzonatate (Benzonatate) 100 Mg Capsule, 100 MG PO TID PRN for COUGH, (Reported) Hydrocodone/Acetaminophen ([place] 7.5-325 Tablet) 1 Each Tablet, 1 TAB PO BID PRN for PAIN, (Reported) Hydroxyzine Pamoate (Hydroxyzine Pamoate) 25 Mg Capsule, 25 MG PO TID PRN for ANXIETY, (Reported) Ipratropium/Albuterol Sulfate (Iprat-Albut 0.5-3(2.5) mg/3 ml) 3 Ml Ampul.neb, 1 VIAL INH QID PRN for SHORTNESS OF BREATH, (Reported) Nystatin (Nystatin Powder) 15 Gm Powder, 1 DOSE TOP QHS PRN for ITCH/RASH, (Reported) USES UNDER BREASTS Allergies Coded Allergies: Cat Dander (Verified Allergy, Unknown, 01/21/19) Dust (Verified Allergy, Unknown, 01/21/19) DAMIR HURLEY MD Jan 31, 2019 13:47
[2019-06-08] MEDS ORDERED: METF-877 PO (17:34)
[2019-06-08] MEDS ORDERED: PRED5TA PO (17:34)
[2019-06-08] MEDS ORDERED: DRIS50003 PO (17:34)
[2019-06-10] MEDS ORDERED: PRED10TA2 PO (12:01)
== END 2019-01-31 13:07 | disposition home health service (06) | DRG 189 ==
LOC: M ED 14:02 → EDBD 14:02 → M ED INP 16:53 → M ICU 18:13 → M PCU 01-24 13:40 → M MSPAV 01-26 13:22
PROVIDERS: ADMIT Internal Medicine; ATTEND General Practice
DX: J96.22 Acute and chronic respiratory failure with hypercapnia (principal); I50.33 Acute on chronic diastolic (congestive) heart failure; J44.1 Chronic obstructive pulmonary disease with (acute) exacerbation; J96.21 Acute and chronic respiratory failure with hypoxia; E11.9 Type 2 diabetes mellitus without complications; G47.33 Obstructive sleep apnea (adult) (pediatric); Z91.19 Patient's noncompliance with other medical treatment and regimen; I27.20 Pulmonary hypertension, unspecified; Z79.52 Long term (current) use of systemic steroids; I11.0 Hypertensive heart disease with heart failure; E78.5 Hyperlipidemia, unspecified; E03.9 Hypothyroidism, unspecified; I27.81 Cor pulmonale (chronic); E66.3 Overweight; Z79.899 Other long term (current) drug therapy; Z79.82 Long term (current) use of aspirin; F31.9 Bipolar disorder, unspecified; F41.9 Anxiety disorder, unspecified; K21.9 Gastro-esophageal reflux disease without esophagitis; M19.90 Unspecified osteoarthritis, unspecified site; I25.10 Atherosclerotic heart disease of native coronary artery without angina pectoris; I25.2 Old myocardial infarction; M54.5 Low back pain; M79.10 Myalgia, unspecified site; M79.7 Fibromyalgia

== ENCOUNTER 2019-02-13 00:23 | Inpatient (IN) | payer MEDICARE, MEDICAID ==
[~2019-02-13] VITALS: Ht 165.1 cm; Wt 87.6 kg
[~2019-02-13 00:23] MED LIST changes: -BISO5TAB14 PO; +BISO5TAB9 PO; +BUPR300T34 PO; -BUPR300T92 PO; +BUSP5TA PO; +CETI-14 PO; +OMEP40CA2 PO; -OMEP40CA97 PO; -SENN-53 PO; +SENN1TAB40 PO; +SULF1TAB72 PO; -SULF400T14 PO
[2019-02-13] MEDS ORDERED: methylPREDNISolone INJ 125 MG/2 ML VIAL (J2930) IV ONE (00:30)
[2019-02-13] MEDS: IPRATROPIUM 0.5MG/ALBUTEROL 2.5MG INH SOL UD 3ML (DUONEB)(J7620) NEB SCH ×6 (00:30→19:32)
[2019-02-13 00:50] LABS: BASO # 0.1 10^3/uL (0.0-0.2); BASO % 0.5 % (0.0-1.0); EOS # 0.2 10^3/uL (0.0-0.5); EOS % 1.6 % (0.0-3.0); HEMATOCRIT 44.2 % (36.0-47.0); HEMOGLOBIN 13.1 g/dl (12.0-15.5); LYMPH # 1.9 10^3/uL (1.5-5.0); MEAN CORPUSCULAR HEMOGLOBIN 27.3 pg (27.0-33.0); MEAN CORPUSCULAR HGB CONC 29.6 g/dl (32.0-36.5); MEAN CORPUSCULAR VOLUME 92.3 fl (80.0-96.0); MONO % 9.3 % (0.0-5.0); NEUTROPHILS # 7.9 10^3/uL (1.5-8.5); PLATELET COUNT, AUTOMATED 362 10^3/uL (150-450); RED BLOOD COUNT 4.79 10^6/uL (4.00-5.40); WHITE BLOOD COUNT 11.1 10^3/uL (4.0-10.0)
[2019-02-13 01:17] LABS: BLOOD UREA NITROGEN 19 MG/DL (7-18); CALCIUM LEVEL 9.4 MG/DL (8.8-10.2); CARBON DIOXIDE LEVEL 42 MEQ/L (21-32); CHLORIDE LEVEL 92 MEQ/L (98-107); CK-MB VALUE MASS < 1.0 NG/ML (<3.6); CPK CREATINE PHOSPHOKINASE 26 U/L (26-192); CREATININE FOR GFR 0.38 MG/DL (0.55-1.30); GLOMERULAR FILTRATION RATE > 60.0 (>45); GLUCOSE, FASTING 183 MG/DL (70-100); MB/CK RELATIVE INDEX 3.85 (< OR =4); NT-PRO BNP 109 PG/ML (<125); POTASSIUM SERUM 3.4 MEQ/L (3.5-5.1); SODIUM LEVEL 139 MEQ/L (136-145); TROPONIN I < 0.02 NG/ML (< 0.10)
[2019-02-13] MEDS ORDERED: PIPERACILLIN/TAZOBACTAM SOD 3.375 GM in D5W MINI-BAG PLUS 50 ML IV ONE (02:00)
[2019-02-13] MEDS ORDERED: FLUO1TAB3 PO (02:20)
[2019-02-13] MEDS ORDERED: SPIR1CAP INH (02:20)
[2019-02-13] MEDS ORDERED: PRED5TA PO (02:20)
[2019-02-13] MEDS ORDERED: MOM 30ML SUSPENSION UDC PO PRN (02:30)
[2019-02-13] MEDS ORDERED: ALBUTEROL SULFATE 2.5 MG/0.5 ML INH NEB SOLN NEB PRN (02:30)
[2019-02-13] MEDS ORDERED: DEXTROSE 50% 50 ML SYRINGE IV PRN (02:30)
[2019-02-13] MEDS ORDERED: GLUCOSE 4 GM CHEW TABLET PO PRN (02:30)
[2019-02-13] MEDS ORDERED: ACETAMINOPHEN TAB 650MG DOSE (2X325MG) PO PRN (02:30)
[2019-02-13] MEDS ORDERED: MAALOX 30 ML SUSP *UDC PO PRN (02:30)
[2019-02-13] MEDS ORDERED: GLUCAGON FOR INJ 1 MG VIAL (J1610) SC PRN (02:30)
[2019-02-13] MEDS ORDERED: ANEXSIA, NORCO 7.5MG/325MG TABLET(HYDROCODONE/APAP) PO PRN (03:00)
[2019-02-13] MEDS ORDERED: hydrOXYzine 25 MG TAB PO PRN (03:00)
[2019-02-13] MEDS ORDERED: PILL CUTTER 1 EACH XX PRN (03:15)
--- NOTE | 2019-02-13 03:30 | HPEPDOC ---
General Date of Admission Feb 13, 2019 at 02:17 Date of Service: Feb 13, 2019 Chief Complaint The patient is a 63-year-old female admitted with a reason for visit of Copd Exacerbation. Source: Patient, RN/MD Exam Limitations: No limitations Timing/Duration: Day(s) Severity: Moderate History of Present Illness Ms. Zavala is a 63 years old woman with advanced COPD dependent on 2L O2 at home. She came to ER with c/o worsening SOB and Wheezing for two days. Denies cough, fever, chills or sick contact. On arrival to Er, pt was in distress and was treated with IV steroid, ABX and nebs. By the time I saw her in ER, she was feeling better, but still had SOB at rest. ABG shows CO2 retention at about baseline. O2 sat is 88-90% in 2L. Mental status is good. CXR shows chronic fibrotic changes without infiltrates. Vitals are good; afebrile. Home Medications Scheduled Aripiprazole (Abilify) 5 Mg Tablet, 2.5 MG PO DAILY, (Reported) Aspirin (Aspirin EC) 81 Mg Tabec, 81 MG PO DAILY, (Reported) Atorvastatin Calcium (Lipitor) 80 Mg Tab, 80 MG PO QHS, (Reported) Bisoprolol Fumarate (Bisoprolol Fumarate) 5 Mg Tab, 2.5 MG PO DAILY, (Reported) Cetirizine HCl (Cetirizine HCl) 10 Mg Tablet, 10 MG PO DAILY, (Reported) Dapagliflozin Propanediol (Farxiga) 10 Mg Tablet, 10 MG PO Q2D, (Reported) Ergocalciferol (Vitamin D2) (Drisdol) 50,000 Unit Cap, 50,000 UNIT PO 1XWK, (Reported) FRIDAYS Fluoxetine HCl (Fluoxetine HCl) 20 Mg Tablet, 20 MG PO DAILY, (Reported) Fluticasone Propion/Salmeterol (Advair Hfa 230-21 Mcg Inhaler) 12 Gm Hfa.aer.ad, 2 PUFF INH BID, (Reported) Fluticasone Propionate (Flonase Allergy Relief) 50 Mcg/Act Spr, 1 SPRAY NARES DAILY, (Reported) Furosemide (Furosemide) 40 Mg Tablet, 40 MG PO BID, (Reported) Gabapentin (Gabapentin) 800 Mg Tab, 800 MG PO BID, (Reported) Levothyroxine Sodium (Levoxyl) 25 Mcg Tab, 25 MCG PO DAILY, (Reported) Metformin HCl (Metformin HCl) 1,000 Mg Tab, 1,000 MG PO BID, (Reported) Pantoprazole Sodium (Pantoprazole Sodium) 40 Mg Tab, 40 MG PO DAILY, (Reported) Potassium Chloride (Potassium Chloride) 8 Meq Tablet.er, 8 MEQ PO BID, (Reported) Prednisone (Prednisone) 5 Mg Tablet, 5 MG PO DAILY, (Reported) Prochlorperazine Maleate (Prochlorperazine Maleate) 10 Mg Tablet, 10 MG PO DAILY, (Reported) Sitagliptin Phosphate (Januvia) 100 Mg Tablet, 100 MG PO DAILY, (Reported) Tiotropium [place] (Spiriva) 18 Mcg Cap.w.dev, 1 INHALATION INH DAILY, (Reported) Scheduled PRN Albuterol Sulfate (Ventolin Hfa) 108 Mcg/Act Aer, 2 PUFFS INH Q4H PRN for SHORTNESS OF BREATH, (Reported) Hydrocodone/Acetaminophen ([place] 7.5-325 Tablet) 1 Each Tablet, 1 TAB PO BID PRN for PAIN, (Reported) Hydroxyzine Pamoate (Hydroxyzine Pamoate) 25 Mg Capsule, 25 MG PO TID PRN for ANXIETY, (Reported) Ipratropium/Albuterol Sulfate (Iprat-Albut 0.5-3(2.5) mg/3 ml) 3 Ml Ampul.neb, 1 VIAL INH QID PRN for SHORTNESS OF BREATH, (Reported) Nystatin (Nystatin Powder) 15 Gm Powder, 1 DOSE TOP QHS PRN for ITCH/RASH, (Reported) USES UNDER BREASTS Allergies Coded Allergies: Cat Dander (Verified Allergy, Unknown, 01/21/19) Dust (Verified Allergy, Unknown, 01/21/19) Past Medical History Medical History Medical History Chronic respiratory failure with hypoxia and hypercarbia Chronic Diastolic CHF COPD on Home O2 SUYAPA on BIPAP, non-compliant Major depressive disorder Bipolar, anxiety disorder, adjustment disorder History of Cannabis use disorder. Nonobstructive Coronary artery disease with history of NSTEMI 2012 Degenerative disc disease with chronic musculoskeletal pain and muscle spasm. Chronic low back pain on narcotics Sacroiliac joint pain and myofascial pain. Fibromyalgia. Osteoarthritis Gastroesophageal reflux disease (GERD). Hypertension. Hyperlipidemia Diabetes Obesity Hypothyroidism. Adrenal nodule on the right, seems to be adrenal adenoma. Lung nodule Surgical History Cholecystectomy. Cardiac catheterization without stent. History of breast biopsy. Dilation and curettage. Tubal ligation. Tonsillectomy. Exploratory laparotomy. Family History father diabetes and of [place] mother lung cancer Social History * Smoker: former Smoker Alcohol: Denies Drugs: denies A-FIB/CHADSVASC A-FIB History Current/History of A-Fib/PAF?: No Review of Systems Constitutional: Denies: Chills, Fever, Malaise Eyes: Denies: Pain, Vision change ENT: Denies: Head Aches, Ear Pain Skin: Denies: Rash, Lesions Pulmonary: Reports: Dyspnea; Denies: Cough Cardiovascular: Denies: Chest Pain, Edema Gastrointestinal: Denies: Nausea, Vomiting, Abdominal Pain Genitourinary: Denies: Dysuria, Frequency Hematologic: Denies: Bruising Endocrine: Denies: Polydipsia, Polyphagia Musculoskeletal: Denies: Neck Pain, Back Pain Neurological: Denies: Weakness, Numbness Psych: Denies: Mood Normal Physical Examination General Exam: Positive: Alert, Cooperative, Mild Distress Eye Exam: Positive: PERRLA, Conjunctiva & lids normal ENT Exam: Positive: Atraumatic, Mucous membr. moist/pink Neck Exam: Positive: Supple; Negative: JVD Chest Exam: Positive: Wheezing, Diminished Heart Exam: Positive: Rate Normal, Regular Rhythm Abdomen Exam: Positive: Normal bowel sounds, Soft; Negative: Tenderness Extremity Exam: Positive: Normal pulses; Negative: Edema Skin Exam: Positive: Nl turgor and temperature; Negative: Rash, Breakdown Neuro Exam: Positive: Normal Speech, Strength at 5/5 X4 ext, Normal Tone Psych Exam: Positive: Mental status NL, Mood NL, Anxiety Vital Signs Vital Signs Date Time Temp Pulse Resp B/P (MAP) Pulse Ox O2 Delivery O2 Flow Rate FiO2 02/13/19 02:53 92 93 02/13/19 02:45 131/62 (85) 02/13/19 02:38 16 02/13/19 00:52 Nasal Cannula 2.0 02/13/19 00:39 97.8 Laboratory Data Labs 24H Laboratory Tests 2 02/13/19 00:38: Immature Granulocyte % (Auto) 0.6, White Blood Count 11.1H, Red Blood Count 4.79, Hemoglobin 13.1, Hematocrit 44.2, Mean Corpuscular Volume 92.3, Mean Corpuscular Hemoglobin 27.3, Mean Corpuscular Hemoglobin Concent 29.6L, Red Cell Distribution Width 16.5H, Platelet Count 362, Neutrophils (%) (Auto) 71.0H, Lymphocytes (%) (Auto) 17.0L, Monocytes (%) (Auto) 9.3H, Eosinophils (%) (Auto) 1.6, Basophils (%) (Auto) 0.5, Neutrophils # (Auto) 7.9, Lymphocytes # (Auto) 1.9, Monocytes # (Auto) 1.0H, Eosinophils # (Auto) 0.2, Basophils # (Auto) 0.1, Nucleated Red Blood Cells % (auto) 0.0, Anion Gap 5L, Glomerular Filtration Rate > 60.0, Lactic Acid Level 0.8, Blood Urea Nitrogen 19H, Creatinine 0.38L, Sodium Level 139, Potassium Level 3.4L, Chloride Level 92L, Carbon Dioxide Level 42H, Calcium Level 9.4, Total Creatine Kinase 26, Creatine Kinase MB < 1.0, Creatine Kinase MB Relative Index 3.85, Troponin I < 0.02, AE-Lyh-J-Type Natriuretic Peptide 109 02/13/19 00:44: POC pH (Misc Panel) 7.336L, POC Base Excess (Misc Panel) 20.0H, POC Saturated Percent O2 (Misc) 95, POC pO2 (Misc Panel) 87.0, POC pCO2 (Misc Panel) 85.7*H, POC HCO3 (Misc Panel) 45.8H, POC Total CO2 (Misc Panel) 48.0H CBC/BMP Laboratory Tests 02/13/19 00:38 Red Blood Count 4.79, Mean Corpuscular Volume 92.3, Mean Corpuscular Hemoglobin 27.3, Mean Corpuscular Hemoglobin Concent 29.6 L, Red Cell Distribution Width 16.5 H, Neutrophils (%) (Auto) 71.0 H, Lymphocytes (%) (Auto) 17.0 L, Monocytes (%) (Auto) 9.3 H, Eosinophils (%) (Auto) 1.6, Basophils (%) (Auto) 0.5, Ne utrophils # (Auto) 7.9, Lymphocytes # (Auto) 1.9, Monocytes # (Auto) 1.0 H, Eosinophils # (Auto) 0.2, Basophils # (Auto) 0.1, Calcium Level 9.4, Total Creatine Kinase 26 Microbiology Microbiology 02/13/19 Blood Culture, Received Pending 02/13/19 Blood Culture, Received Pending 02/13/19 Respiratory Virus Panel (PCR) ([facility]), Received Pending Assessment/Plan COPD Exacerbation - Admit o PCU - IV steroid, nebs, O2 - No indication for antibiotic - BiPaP as needed NIDDM - hold oral meds; start on ZARATE and SSI while inpatient. Continue home meds for other chronic conditions. Plan / VTE VTE Prophylaxis Ordered?: Yes Plan Diet: Continue Current Activity: Continue Current Anticipated Discharge: Home ALICIA SHAH MD Feb 13, 2019 03:30
[2019-02-13 03:45] VITALS: BP 127/63
[2019-02-13] MEDS: LEVOTHYROXINE 25MCG TABLET (0.025MG) PO SCH (05:56)
[2019-02-13 08:00] VITALS: BP 151/69
[2019-02-13] MEDS: HumaLOG INSULIN (NovoLOG) PER UNIT SC SCH ×4 (08:27→21:02)
[2019-02-13] MEDS: methylPREDNISolone INJ 125 MG/2 ML VIAL (J2930) IV SCH ×2 (08:27→17:07)
[2019-02-13] MEDS: LEVEMIR (INSULIN DETEMIR) 1 UNITS/0.01ML SC SCH (08:27)
[2019-02-13] MEDS: POTASSIUM CHLORIDE 10 MEQ SR TABLET PO SCH (08:28)
[2019-02-13] MEDS: GABAPENTIN 400 MG CAP PO SCH ×2 (08:28→20:59)
[2019-02-13] MEDS: BISOPROLOL FUM 2.5 MG PER 1/2TAB PO SCH (08:28)
[2019-02-13] MEDS: CETIRIZINE (ZyrTEC) 10 MG TAB PO SCH (08:28)
[2019-02-13] MEDS: ASPIRIN 81 MG ENTERIC TAB PO SCH (08:28)
[2019-02-13] MEDS: ENOXAPARIN 40 MG/0.4 ML SYRINGE (J1650) SC SCH (08:28)
[2019-02-13] MEDS: FUROSEMIDE 40 MG TAB PO SCH ×2 (08:29→20:59)
[2019-02-13] MEDS: PANTOPRAZOLE 40MG TAB (PROTONIX) PO SCH (08:29)
[2019-02-13] MEDS: FLUoxetine 20 MG CAP PO SCH (08:29)
[2019-02-13] MEDS ORDERED: POTASSIUM CHLORIDE 10 MEQ SR TABLET PO ONE (08:45)
[2019-02-13 12:00] VITALS: BP 122/60
--- NOTE | 2019-02-13 13:31 | ECGEPIP ---
[facility] - ED Test Date: 2019-02-13 Pat Name: MIGUEL NAQVI Department: Room: [place] [address] Gender: Female Collection Administrator: yoav : [id number] Requested By: MAYELA Culp Order Number: [id number] Reading MD: Vidya Villavicencio Measurements Intervals [place] Rate: 88 P: 70 NC: 141 QRS: 55 QRSD: 108 T: 39 QT: 366 QTc: 443 Interpretive Statements SINUS RHYTHM POSSIBLE ANTERIOR MYOCARDIAL INFARCTION, OF INDETERMINATE AGE DECREASED RATE 01/21/19 Electronically Signed on 02-13-2019 13:31:40 EDT by Vidya Villavicencio
--- NOTE | 2019-02-13 14:18 | REP ---
CHEST, PORTABLE: AP portable view of the chest is performed. There appears to be some mild patchy atelectasis or infiltrate in the right lung base. No infiltrate is seen on the left. The heart is normal in size and the mediastinal silhouette is unchanged. IMPRESSION: Very mild atelectasis or infiltrate right lung base. Electronically Signed by Brigido Barcenas MD 02/13/2019 06:08 P
[2019-02-13 16:00] VITALS: BP 120/67
--- NOTE | 2019-02-13 17:20 | IPNPDOC ---
Date Seen The patient was seen on 02/13/19. Progress Note SUBJECTIVE: c/o anxiety and admits to noncompliance with her cpap at home. "I didn't use it because I don't like the mask, and my primary care wouldn't give me any of that anxiety medicine. I know that's probably why I had trouble breathing again." Pt has an appt with [facility] to fit her for a different mask this coming week. still c/o enriquez, wheezing. no chest pain. dry cough. OBJECTIVE: PHYSICAL EXAMINATION: VITALS: PLS SEE BELOW Generally, patient is awake, alert, oriented times three. Answering questions appropriately. She has no use of accessory respiratory muscles. no conversational dyspnea. no pallor. HEENT: No nasal flaring. No cyanosis. No icterus or jaundice. no tripod posit ioning no conversational dyspnea Lungs are diminished with expiratory wheezing bilaterally. Heart: S1, S2, sinus rhythm. Abdomen is soft, nontender, nondistended. Extremities: No cyanosis, clubbing with trace edema. LABORATORY DATA, MICROBIOLOGY, IMAGING STUDIES: REVIEWED ASSESSMENT/PLAN: This is a 63-year-old with nor pulmonale, chronic obstructive pulmonary disease (COPD), congestive heart failure (CHF) with diastolic dysfunction with multiple admissions due to hypercapnic and hypoxic respiratory failure due to medical noncompliance admitted for copd exacerbation continue with iv solumedrol nebulizer treatments. abx pneumonia levaquin check sputum culture Obstructive sleep apnea (SUYAPA): noncompliant resume cpap home settings Anxiety: On BuSpar and low dose xanax prn CHF with preserved EF/ Cor pulmonale: resumed home diuretics strict i/o daily weights and fluid restriction obese bmi 30 chronic hypoxic and hypercapnic failure on home oxygen avoid sedatives VS, I&O, 24H, Ant Vital Signs/I&O Vital Signs Date Time Temp Pulse Resp B/P (MAP) Pulse Ox O2 Delivery O2 Flow Rate FiO2 02/13/19 12:00 97.2 80 20 122/60 (80) 92 3.0 02/13/19 00:52 Nasal Cannula Laboratory Data 24H LABS Laboratory Tests 2 02/13/19 00:38: Immature Granulocyte % (Auto) 0.6, White Blood Count 11.1H, Red Blood Count 4.79, Hemoglobin 13.1, Hematocrit 44.2, Mean Corpuscular Volume 92.3, Mean Corpuscular Hemoglobin 27.3, Mean Corpuscular Hemoglobin Concent 29.6L, Red Cell Distribution Width 16.5H, Platelet Count 362, Neutrophils (%) (Auto) 71.0H, Lymphocytes (%) (Auto) 17.0L, Monocytes (%) (Auto) 9.3H, Eosinophils (%) (Auto) 1.6, Basophils (%) (Auto) 0.5, Neutrophils # (Auto) 7.9, Lymphocytes # (Auto) 1.9, Monocytes # (Auto) 1.0H, Eosinophils # (Auto) 0.2, Basophils # (Auto) 0.1, Nucleated Red Blood Cells % (auto) 0.0, Anion Gap 5L, Glomerular Filtration Rate > 60.0, Lactic Acid Level 0.8, Blood Urea Nitrogen 19H, Creatinine 0.38L, Sodium Level 139, Potassium Level 3.4L, Chloride Level 92L, Carbon Dioxide Level 42H, Calcium Level 9.4, Total Creatine Kinase 26, Creatine Kinase MB < 1.0, Creatine Kinase MB Relative Index 3.85, Troponin I < 0.02, MJ-Fxq-A-Type Natriuretic Peptide 109 02/13/19 00:44: POC pH (Misc Panel) 7.336L, POC Base Excess (Misc Panel) 20.0H, POC Saturated Percent O2 (Misc) 95, POC pO2 (Misc Panel) 87.0, POC pCO2 (Misc Panel) 85.7*H, POC HCO3 (Misc Panel) 45.8H, POC Total CO2 (Misc Panel) 48.0H 02/13/19 07:51: Bedside Glucose (Misc Panel) 242H 02/13/19 11:27: Bedside Glucose (Misc Panel) 321H 02/13/19 16:49: Bedside Glucose (Misc Panel) 274H CBC/BMP Laboratory Tests 02/13/19 00:38 Red Blood Count 4.79, Mean Corpuscular Volume 92.3, Mean Corpuscular Hemoglobin 27.3, Mean Corpuscular Hemoglobin Concent 29.6 L, Red Cell Distribution Width 16.5 H, Neutrophils (%) (Auto) 71.0 H, Lymphocytes (%) (Auto) 17.0 L, Monocytes (%) (Auto) 9.3 H, Eosinophils (%) (Auto) 1.6, Basophils (%) (Auto) 0.5, Neutrophils # (Auto) 7.9, Lymphocytes # (Auto) 1.9, Monocytes # (Auto) 1.0 H, Eosinophils # (Auto) 0.2, Basophils # (Auto) 0.1, Calcium Level 9.4, Total Creatine Kinase 26 Microbiology Microbiology 02/13/19 Blood Culture, Received Pending 02/13/19 Blood Culture, Received Pending 02/13/19 Respiratory Virus Panel (PCR) ([facility]) - Final, Complete DAMIR HURLEY MD Feb 13, 2019 17:20
[2019-02-13] MEDS ORDERED: busPIRone 5 MG TAB PO ONE (18:00)
[2019-02-13 20:00] VITALS: BP 129/70
[2019-02-13] MEDS: busPIRone 5 MG TAB PO SCH (20:58)
[2019-02-13] MEDS: ATORVASTATIN 20 MG TAB PO SCH (20:59)
[2019-02-13] MEDS ORDERED: VANCOMYCIN HCL 1,000 MG, VIAL MATE ADAPTER 1 EACH in D5W 250 ML IV ONE (21:00)
[2019-02-14] VITALS (7 sets, daily range): BP systolic 110–139; BP diastolic 58–85
[2019-02-14] MEDS: methylPREDNISolone INJ 125 MG/2 ML VIAL (J2930) IV SCH ×3 (00:17→16:37)
[2019-02-14] MEDS: IPRATROPIUM 0.5MG/ALBUTEROL 2.5MG INH SOL UD 3ML (DUONEB)(J7620) NEB SCH ×4 (00:46→20:49)
[2019-02-14] MEDS: VANCOMYCIN HCL 1,000 MG, VIAL MATE ADAPTER 1 EACH in D5W 250 ML IV SCH ×3 (02:18→18:03)
[2019-02-14] MEDS: LEVOTHYROXINE 25MCG TABLET (0.025MG) PO SCH (06:03)
[2019-02-14] MEDS: LevoFLOXacin 750 MG TABLET PO SCH (06:03)
--- NOTE | 2019-02-14 07:14 | PHACANCOPD ---
PHARMACY VANCOMYCIN DOSING Pt Demographics Demographics Patient Age:63 , Weight:85.200 , Gender: female Adjusted Body Weight Date: 02/14/19, Adjusted Body Weight: Kg Vancomycin Vancomycin indication: BACTEREMIA/POSS.PNEUMONIA Vancomycin Target Ranges: 15-20 mcg/ml Vancomycin Load Y/N: No Load Dose Date Time Vancomycin Load Dose: Date: Time: Vancomycin Dose Date: 02/14/19. Current Vancomycin Dose: [1 GRAM IV Q8H] Intermittent Dosing?: No Labs Micro Microbiology 02/13/19 Blood Culture, Received Pending 02/13/19 Blood Culture - Preliminary, Resulted 02/13/19 Blood Culture - Preliminary, Resulted No growth after 24 hours . All specim... 02/13/19 Respiratory Virus Panel (PCR) ([facility]) - Final, Complete Creatinine Clearance Date:02/14/19. Creatinine Clearance: . Assessment and Plan Maintaining Current Dose?: Yes Reason for dose change: No Dose Change Pharmacist Note Pharmacist Note Date: 02/14/19. Pharmacist note:63 YOF W/COPD EXACERBATION/PNEUMONIA ,83.5 KG,SCR=0.38,PATIENT - ORDERED MRSA -PCR FOR 0500 THIS AM(HAD NEGATIVE MRSA -PCR 01/27/19)cURRENTLY HAS VANCOMYCIN 1 GRAM q8H ORDERED WITH FIRST TROUGH SCHEDULED FOR TODAY@1700. IF PCR IS REPORTED NEGATIVE-WILL DISCUSS VANCOMYCIN D/C WITH PROVIDER. DEEDEE BAILEY PHARMACY Feb 14, 2019 07:14
[2019-02-14] MEDS: ASPIRIN 81 MG ENTERIC TAB PO SCH (08:56)
[2019-02-14] MEDS: POTASSIUM CHLORIDE 10 MEQ SR TABLET PO SCH (08:56)
[2019-02-14] MEDS: busPIRone 5 MG TAB PO SCH ×2 (08:56→20:51)
[2019-02-14] MEDS: PANTOPRAZOLE 40MG TAB (PROTONIX) PO SCH (08:58)
[2019-02-14] MEDS: FUROSEMIDE 40 MG TAB PO SCH ×2 (08:58→20:51)
[2019-02-14] MEDS: CETIRIZINE (ZyrTEC) 10 MG TAB PO SCH (08:58)
[2019-02-14] MEDS: BISOPROLOL FUM 2.5 MG PER 1/2TAB PO SCH (08:58)
[2019-02-14] MEDS: GABAPENTIN 400 MG CAP PO SCH ×2 (08:58→20:51)
[2019-02-14] MEDS: LEVEMIR (INSULIN DETEMIR) 1 UNITS/0.01ML SC SCH ×2 (08:59→21:01)
[2019-02-14] MEDS: ENOXAPARIN 40 MG/0.4 ML SYRINGE (J1650) SC SCH (08:59)
[2019-02-14] MEDS: FLUoxetine 20 MG CAP PO SCH (08:59)
[2019-02-14] MEDS ORDERED: FLUBLOK(EGG FREE)(QUAD)INFLUENZA VACC 0.5ML SYRINGE (90682)18YRS&OLDER IM ONE (09:00)
[2019-02-14] MEDS: HumaLOG INSULIN (NovoLOG) PER UNIT SC SCH ×4 (09:26→21:08)
[2019-02-14] MEDS: predniSONE 20 MG TAB PO SCH (20:51)
[2019-02-14] MEDS: ATORVASTATIN 20 MG TAB PO SCH (20:51)
[2019-02-14] MEDS: LORazepam 0.5 MG TAB PO PRN (20:58)
--- NOTE | 2019-02-14 22:32 | IPNPDOC ---
Date Seen The patient was seen on 02/14/19. Progress Note SUBJECTIVE: sob improved. enriquez at baseline. still with cough without fever or chills. OBJECTIVE: PHYSICAL EXAMINATION: VITALS: PLS SEE BELOW Generally,no respiratory distress She has no use of accessory respiratory muscles. no conversational dyspnea. no pallor. HEENT: No nasal flaring. No cyanosis. No icterus or jaundice. no tripod positioning no conversational dyspnea Lungs clear aebe. Heart: S1, S2, sinus rhythm. Abdomen is soft, nontender, nondistended. Extremities: No cyanosis, clubbing with trace edema. LABORATORY DATA, MICROBIOLOGY, IMAGING STUDIES: REVIEWED ASSESSMENT/PLAN: This is a 63-year-old with nor pulmonale, chronic obstructive pulmonary disease (COPD), congestive heart failure (CHF) with diastolic dysfunction with multiple admissions due to hypercapnic and hypoxic respiratory failure due to medical noncompliance admitted for copd exacerbation dc solumedrol changed to po prednisone nebulizer treatments. abx supplental o2 pneumonia levaquin check sputum culture Obstructive sleep apnea (SUYAPA): noncompliant resume cpap home settings needs xanax qhs and buspar due to claustrophia with cpap mask [facility] had an appt to fit for mask as outpt claustrophobia: needs xanax qhs for cpap Anxiety: On BuSpar and low dose xanax prn CHF with preserved EF/ Cor pulmonale: resumed home diuretics strict i/o daily weights and fluid restriction obese bmi 30 chronic hypoxic and hypercapnic failure on home oxygen avoid sedatives VS, I&O, 24H, Fishbone Vital Signs/I&O Vital Signs Date Time Temp Pulse Resp B/P (MAP) Pulse Ox O2 Delivery O2 Flow Rate FiO2 02/14/19 20:00 96.3 87 22 119/58 (78) 93 3.0 02/13/19 00:52 Nasal Cannula I&O- Last 24 Hours up to 6 AM 02/14/19 06:00 Intake Total 840 ml Output Total 2000 ml Balance -1160 ml Laboratory Data 24H LABS Laboratory Tests 2 02/14/19 05:25: Methicillin-Resist S.aureus DNA PCR NOT DETECTED 02/14/19 07:47: Bedside Glucose (Misc Panel) 341H 02/14/19 11:20: Bedside Glucose (Misc Panel) 300H 02/14/19 17:02: Vancomycin Level Trough 11.4 02/14/19 17:18: Bedside Glucose (Misc Panel) 339H 02/14/19 21:00: Bedside Glucose (Misc Panel) 428H Microbiology Microbiology 02/13/19 Blood Culture - Preliminary, Resulted No growth after 24 hours . All specim... 02/13/19 Blood Culture - Preliminary, Resulted 02/13/19 Blood Culture - Preliminary, Resulted No growth after 24 hours . All specim... 02/13/19 Respiratory Virus Panel (PCR) ([facility]) - Final, Complete DAMIR HURLEY MD Feb 14, 2019 22:32
[2019-02-15 02:00] VITALS: BP 119/56
[2019-02-15] MEDS: VANCOMYCIN HCL 1,000 MG, VIAL MATE ADAPTER 1 EACH in D5W 250 ML IV SCH ×2 (02:02→10:28)
[2019-02-15] MEDS: IPRATROPIUM 0.5MG/ALBUTEROL 2.5MG INH SOL UD 3ML (DUONEB)(J7620) NEB SCH ×3 (02:13→11:34)
[2019-02-15] MEDS: LEVOTHYROXINE 25MCG TABLET (0.025MG) PO SCH (05:57)
[2019-02-15] MEDS: LevoFLOXacin 750 MG TABLET PO SCH (05:57)
[2019-02-15 06:00] VITALS: BP 117/67
[2019-02-15 07:51] LABS: BLOOD UREA NITROGEN 13 MG/DL (7-18); CALCIUM LEVEL 8.4 MG/DL (8.8-10.2); CARBON DIOXIDE LEVEL 39 MEQ/L (21-32); CHLORIDE LEVEL 92 MEQ/L (98-107); CREATININE FOR GFR 0.61 MG/DL (0.55-1.30); GLOMERULAR FILTRATION RATE > 60.0 (>45); GLUCOSE, FASTING 314 MG/DL (70-100); POTASSIUM SERUM 3.5 MEQ/L (3.5-5.1); SODIUM LEVEL 137 MEQ/L (136-145)
[2019-02-15] MEDS: HumaLOG INSULIN (NovoLOG) PER UNIT SC SCH ×2 (08:07→12:19)
[2019-02-15] MEDS: PANTOPRAZOLE 40MG TAB (PROTONIX) PO SCH (08:08)
[2019-02-15] MEDS: GABAPENTIN 400 MG CAP PO SCH (08:08)
[2019-02-15] MEDS: POTASSIUM CHLORIDE 10 MEQ SR TABLET PO SCH (08:08)
[2019-02-15] MEDS: CETIRIZINE (ZyrTEC) 10 MG TAB PO SCH (08:08)
[2019-02-15] MEDS: LEVEMIR (INSULIN DETEMIR) 1 UNITS/0.01ML SC SCH (08:08)
[2019-02-15] MEDS: FLUoxetine 20 MG CAP PO SCH (08:09)
[2019-02-15] MEDS: predniSONE 20 MG TAB PO SCH (08:09)
[2019-02-15] MEDS: FUROSEMIDE 40 MG TAB PO SCH (08:09)
[2019-02-15] MEDS: busPIRone 5 MG TAB PO SCH (08:09)
[2019-02-15] MEDS: ASPIRIN 81 MG ENTERIC TAB PO SCH (08:09)
[2019-02-15] MEDS: ENOXAPARIN 40 MG/0.4 ML SYRINGE (J1650) SC SCH (08:10)
[2019-02-15] MEDS: LORazepam 0.5 MG TAB PO PRN (09:56)
[2019-02-15 10:00] VITALS: BP 123/63
[2019-02-15 10:28] VITALS: BP 123/61
[2019-02-15] MEDS: BISOPROLOL FUM 2.5 MG PER 1/2TAB PO SCH (10:28)
[2019-02-15] MEDS ORDERED: BUSP5TA PO (13:29)
[2019-02-15] MEDS ORDERED: FURO40TA2 PO (13:29)
[2019-02-15] MEDS ORDERED: LEVA750T7 PO (13:29)
[2019-02-15] MEDS ORDERED: ATIV1TAB10 PO (13:29)
--- NOTE | 2019-02-15 22:54 | DS.PDOC ---
Discharge Summary General Date of Admission Feb 13, 2019 at 02:17 Date of Discharge 02/15/19 Discharge Summary PROCEDURES PERFORMED DURING STAY: [None]. DISCHARGE DIAGNOSES: Pneumonia Acute on Chronic respiratory failure with hypoxia and hypercarbia due to noncomplaince with BIPAP COPD exacerbation. SECONDARY DIAGNOSIS: Chronic respiratory failure with hypoxia and hypercarbia Chronic Diastolic CHF COPD SUYAPA on BIPAP / with 2 liter oxygen bleed in. Major depressive disorder Claustrophobia Bipolar, anxiety disorder, adjustment disorder History of Cannabis use disorder. Nonobstructive Coronary artery disease with history of NSTEMI 2012 Degenerative disc disease with chronic musculoskeletal pain and muscle spasm. Chronic low back pain on narcotics Sacroiliac joint pain and myofascial pain. Fibromyalgia. Osteoarthritis Gastroesophageal reflux disease (GERD). Hypertension. Hyperlipidemia Diabetes Obesity Hypothyroidism. Adrenal nodule on the right, seems to be adrenal adenoma. Lung nodule COMPLICATIONS/CHIEF COMPLAINT: COPD Exacerbation. HISTORY OF PRESENT ILLNESS: Please see history and physical HOSPITAL COURSE: 63 years old woman with advanced COPD, SUYAPA on BIPAP noncompliant with it due to claustrophobia , chronic respiratory failure with hypoxia and hypercarbia, dependent on 2L O2 at home. She came to ER with c/o worsening SOB and Wheezing for two days. CXR showed mild infiltrates and RLL and chronic fibrotic changes. Abg showed elevated CO2 from baseline. patient was admitted for acute on chronic respiratory failure with hypoxia and hypercarbia , pneumonia and COPD exacerbation. Acute on Chronic respiratory failure with hypoxia and hypercarbia started on BIPAP support. ABG back to baseline. Pneumonia continue Levofloxacin COPD exacerbation due to above now resolved continue home meds advair, spiriva, duonebs prn, prednisone 5 mg. will continue with home dose of steroids. Chronic Diastolic CHF appears close to euvolemia continue Lasix dose increased to 80 mg in am and 40 mg in pm. discussed fluid restriction and measuring daily weight. SUYAPA on BIPAP / with 2 liter oxygen bleed in encouraged to be compliant with it. Major depressive disorder, Bipolar, anxiety disorder, adjustment disorder, History of Cannabis use disorder. and clautrophobia which is a major deterant for adequete use of BIPAP will give buspar and ativan prn. continue abilify Nonobstructive Coronary artery disease with history of NSTEMI 2012 continue statin, ASA and betablocker Degenerative disc disease with chronic back musculoskeletal pain and muscle spasm. Sacroiliac joint pain and myofascial pain. Fibromyalgia, Osteoarthritis continue norco, gabapentin Gastroesophageal reflux disease (GERD). continue PPI Hypertension. Hyperlipidemia continue statin Diabetes with neuropathy continue januvia,metformin gabapentin Obesity Hypothyroidism. continue synthroid Adrenal nodule on the right, seems to be adrenal adenoma. Lung nodule outpatient follow up. DISCHARGE MEDICATIONS: Please see below. ALLERGIES: Please see below. PHYSICAL EXAMINATION ON DISCHARGE: VITAL SIGNS: Please see below. Generally,no respiratory distress, She has no use of accessory respiratory muscles. no conversational dyspnea HEENT: No nasal flaring. No cyanosis. No icterus or jaundice. moist mucous membranes. NECK: supple, no JVD Lungs bilateral diminished breath sounds with basal chronic crackles. Heart: S1, S2, sinus rhythm. Abdomen is soft, nontender, non distended, bowel sounds normal Extremities: No cyanosis, clubbing with trace edema. Back : sacral edema present. LABORATORY DATA: Please see below. ACTIVITY: [As tolerated]. DIET: carb consistent , 2 gram sodium with fluid restriction DISPOSITION: Home, Self-Care. DISCHARGE INSTRUCTIONS: follow up PMD in 1 week Follow up Pulmonary in 3 to 4 weeks DISCHARGE CONDITION: [Stable]. TIME SPENT ON DISCHARGE: 35 minutes. Vital Signs/I&Os Vital Signs Date Time Temp Pulse Resp B/P (MAP) Pulse Ox O2 Delivery O2 Flow Rate FiO2 02/15/19 10:28 91 123/61 02/15/19 10:00 96.6 20 90 3.0 02/13/19 00:52 Nasal Cannula I&O- Last 24 Hours up to 6 AM 02/15/19 05:59 Intake Total 2205 ml Output Total 1800 ml Balance 405 ml Laboratory Data Labs 24H Laboratory Tests 2 02/15/19 06:52: Anion Gap 6L, Glomerular Filtration Rate > 60.0, Blood Urea Nitrogen 13, Creatinine 0.61#, Sodium Level 137, Potassium Level 3.5, Chloride Level 92L, Carbon Dioxide Level 39H, Calcium Level 8.4L 02/15/19 11:31: Bedside Glucose (Misc Panel) 297H CBC/BMP Laboratory Tests 02/15/19 06:52 Calcium Level 8.4 L FSBS Laboratory Tests Test 02/15/19 11:31 Range/Units Bedside Glucose (Misc Panel) 297 80-115 MG/DL Microbiology Microbiology 02/13/19 Blood Culture - Preliminary, Resulted No Growth after 48 hours. All Specime... 02/13/19 Blood Culture - Final, Complete Staphylococcus Epidermidis 02/13/19 Blood Culture - Preliminary, Resulted No Growth after 48 hours. All Specime... 02/13/19 Respiratory Virus Panel (PCR) ([facility]) - Final, Complete Discharge Medications Scheduled Aripiprazole (Abilify) 5 Mg Tablet, 2.5 MG PO DAILY, (Reported) Aspirin (Aspirin EC) 81 Mg Tabec, 81 MG PO DAILY, (Reported) Atorvastatin Calcium (Lipitor) 80 Mg Tab, 80 MG PO QHS, (Reported) Bisoprolol Fumarate (Bisoprolol Fumarate) 5 Mg Tab, 2.5 MG PO DAILY, (Reported) Buspirone HCl (Buspirone HCl) 5 Mg Tablet, 5 MG PO BID Cetirizine HCl (Cetirizine HCl) 10 Mg Tablet, 10 MG PO DAILY, (Reported) Dapagliflozin Propanediol (Farxiga) 10 Mg Tablet, 10 MG PO Q2D, (Reported) Ergocalciferol (Vitamin D2) (Drisdol) 50,000 Unit Cap, 50,000 UNIT PO 1XWK, (Reported) FRIDAYS Fluoxetine HCl (Fluoxetine HCl) 20 Mg Tablet, 20 MG PO DAILY, (Reported) Fluticasone Propion/Salmeterol (Advair Hfa 230-21 Mcg Inhaler) 12 Gm Hfa.aer.ad, 2 PUFF INH BID, (Reported) Fluticasone Propionate (Flonase Allergy Relief) 50 Mcg/Act Spr, 1 SPRAY NARES DAILY, (Reported) Furosemide (Furosemide) 40 Mg Tablet, 40 MG PO ASDIRECTED 2 tabs at 8 am and 1 tab at 4 pm. Gabapentin (Gabapentin) 800 Mg Tab, 800 MG PO BID, (Reported) Levofloxacin (Levaquin) 750 Mg Tablet, 750 MG PO DAILY@06 Levothyroxine Sodium (Levoxyl) 25 Mcg Tab, 25 MCG PO DAILY, (Reported) Metformin HCl (Metformin HCl) 1,000 Mg Tab, 1,000 MG PO BID, (Reported) Pantoprazole Sodium (Pantoprazole Sodium) 40 Mg Tab, 40 MG PO DAILY, (Reported) Potassium Chloride (Potassium Chloride) 8 Meq Tablet.er, 8 MEQ PO BID, (Reported) Prednisone (Prednisone) 5 Mg Tablet, 5 MG PO DAILY, (Reported) Prochlorperazine Maleate (Prochlorperazine Maleate) 10 Mg Tablet, 10 MG PO DAILY, (Reported) Sitagliptin Phosphate (Januvia) 100 Mg Tablet, 100 MG PO DAILY, (Reported) Tiotropium Waldo (Spiriva) 18 Mcg Cap.w.dev, 1 INHALATION INH DAILY, (Reported) Scheduled PRN Albuterol Sulfate (Ventolin Hfa) 108 Mcg/Act Aer, 2 PUFFS INH Q4H PRN for SHORTNESS OF BREATH, (Reported) Hydrocodone/Acetaminophen (Parthenon 7.5-325 Tablet) 1 Each Tablet, 1 TAB PO BID PRN for PAIN, (Reported) Ipratropium/Albuterol Sulfate (Iprat-Albut 0.5-3(2.5) mg/3 ml) 3 Ml Ampul.neb, 1 VIAL INH QID PRN for SHORTNESS OF BREATH, (Reported) Lorazepam (Ativan) 0.5 Mg Tablet, 0.5 MG PO Q12HP PRN for ANXIETY Nystatin (Nystatin Powder) 15 Gm Powder, 1 DOSE TOP QHS PRN for ITCH/RASH, (R eported) USES UNDER BREASTS Allergies Coded Allergies: Cat Dander (Verified Allergy, Unknown, 01/21/19) Dust (Verified Allergy, Unknown, 01/21/19) OLIVIA PORTER MD Feb 15, 2019 22:54
[2019-02-18] MEDS ORDERED: FLUBLOK(EGG FREE)(QUAD)INFLUENZA VACC 0.5ML SYRINGE (90682)18YRS&OLDER IM ONE (09:00)
== END 2019-02-15 15:40 | disposition home or self-care (01) | DRG 193 ==
LOC: M ED 00:23 → M ED INP 02:17 → M PCU 03:54 → M MS4PR 02-14 20:27
PROVIDERS: ADMIT Internal Medicine; ATTEND Internal Medicine Nephrology
DX: J18.9 Pneumonia, unspecified organism (principal); J96.21 Acute and chronic respiratory failure with hypoxia; J96.22 Acute and chronic respiratory failure with hypercapnia; J44.1 Chronic obstructive pulmonary disease with (acute) exacerbation; I50.32 Chronic diastolic (congestive) heart failure; J44.0 Chronic obstructive pulmonary disease with (acute) lower respiratory infection; M79.7 Fibromyalgia; E66.9 Obesity, unspecified; R91.1 Solitary pulmonary nodule; E03.9 Hypothyroidism, unspecified; D35.00 Benign neoplasm of unspecified adrenal gland; M54.5 Low back pain; G47.33 Obstructive sleep apnea (adult) (pediatric); F31.9 Bipolar disorder, unspecified; E11.40 Type 2 diabetes mellitus with diabetic neuropathy, unspecified; I25.10 Atherosclerotic heart disease of native coronary artery without angina pectoris; I25.2 Old myocardial infarction; M19.90 Unspecified osteoarthritis, unspecified site; I11.0 Hypertensive heart disease with heart failure; E78.5 Hyperlipidemia, unspecified; Z91.19 Patient's noncompliance with other medical treatment and regimen; F40.240 Claustrophobia; Z99.81 Dependence on supplemental oxygen; I27.81 Cor pulmonale (chronic); Z68.30 Body mass index [BMI] 30.0-30.9, adult

== ENCOUNTER 2019-02-24 23:41 | Inpatient (IN) | payer MEDICARE, MEDICAID ==
[~2019-02-24] VITALS: Ht 165.1 cm; Wt 84.2 kg
[~2019-02-24 23:41] MED LIST changes: +ATIV1TAB10 PO; +FLUO1TAB3 PO
[2019-02-25] VITALS (19 sets, daily range): BP systolic 93–110; BP diastolic 54–69; O2SAT 86–98
[2019-02-25] MEDS: IPRATROPIUM 0.5MG/ALBUTEROL 2.5MG INH SOL UD 3ML (DUONEB)(J7620) NEB SCH ×7 (00:19→18:57)
[2019-02-25 00:34] LABS: BASO # 0.1 10^3/uL (0.0-0.2); BASO % 0.6 % (0.0-1.0); EOS # 0.1 10^3/uL (0.0-0.5); EOS % 0.3 % (0.0-3.0); HEMATOCRIT 45.8 % (36.0-47.0); HEMOGLOBIN 13.6 g/dl (12.0-15.5); LYMPH # 1.8 10^3/uL (1.5-5.0); MEAN CORPUSCULAR HEMOGLOBIN 27.1 pg (27.0-33.0); MEAN CORPUSCULAR HGB CONC 29.7 g/dl (32.0-36.5); MEAN CORPUSCULAR VOLUME 91.2 fl (80.0-96.0); MONO % 5.8 % (0.0-5.0); NEUTROPHILS # 14.4 10^3/uL (1.5-8.5); NEUTROPHILS % 81.4 % (36.0-66.0); PLATELET COUNT, AUTOMATED 399 10^3/uL (150-450); RED BLOOD COUNT 5.02 10^6/uL (4.00-5.40); WHITE BLOOD COUNT 17.7 10^3/uL (4.0-10.0)
[2019-02-25] MEDS ORDERED: KETOROLAC 30 MG/ML VIAL (J1885) IV ONE (00:45)
[2019-02-25] MEDS ORDERED: PIPERACILLIN/TAZOBACTAM SOD 3.375 GM in D5W MINI-BAG PLUS 50 ML IV ONE (00:45)
[2019-02-25] MEDS ORDERED: FURO40TA2 PO (00:51)
[2019-02-25] MEDS ORDERED: BUSP5TA PO (00:51)
[2019-02-25] MEDS ORDERED: ATIV1TAB10 PO (00:54)
[2019-02-25] MEDS ORDERED: methylPREDNISolone INJ 125 MG/2 ML VIAL (J2930) IV STA (00:56)
--- NOTE | 2019-02-25 00:56 | HPEPDOC ---
[facility] Medical History & Physical Date of Admission Feb 25, 2019 Date of Service: Feb 25, 2019 Primary Care Physician: Natalie Antony Attending Physician: JET REEDER MD History and Physical TIME OF SERVICE: 1:20 AM CC Time 30 min CHIEF COMPLAINT: Dyspnea HISTORY OF PRESENT ILLNESS: This is a 63-year-old female presents with acutely worsening shortness of breath associated with worsening of her chronic cough. She denies change in the color the sputum. She denies having fevers, denies having chills, and denies having sick contacts. She is unable to quantify how many times she has been admitted for COPD this year, but reports it's been a lot. She has been intubated in the past because of acute COPD. She denies ever attending pulmonary rehabilitation. REVIEW OF SYSTEMS: 12 point review of systems negative except as listed in HPI PAST MEDICAL/ SURGICAL HISTORY: Chronic COPD with chronic oxygen-dependent respiratory failure, baseline oxygen requirement is 2 L Chronic diastolic congestive heart failure SUYAPA, noncompliant w PAP Vqf-iljzvwv-eydukuxhe diabetes complicated by neuropathy Migraines Adrenal adenoma. Hypothyroidism Nonobstructive Chronic CAD status post STEMI 2012 History of depression. History of bipolar disorder with adjustment disorder Fibromyalgia DJD Status post laparoscopic cholecystectomy. Status post lumpectomy. Status post tubal ligation. Status post D&C. SOCIAL HISTORY: Smoker + THC FAMILY HISTORY: Father had DM Mother had lung cancer ALLERGIES: Please see below. HOME MEDICATIONS: Please see below. PHYSICAL EXAMINATION: VITAL SIGNS: Please see below. GENERAL APPEARANCE: Well-nourished, well-developed, slightly anxious HEENT: Normocephalic BiPAP mask in place CARDIOVASCULAR: Tachycardic, no murmurs, rubs or gallops LUNGS: Has difficulty speaking. Since is without having to stop to take breaths, is using accessory muscles, there are decreased breath sounds bilaterally with scattered wheezing ABDOMEN: Positive bowel sounds. Abdomen is soft and nontender on palpation MUSCULOSKELETAL: . Motion is intact in all 4 extremities is no lower extremity edema NEUROLOGICAL: Cranial nerves II-12 are grossly intact PSYCHIATRIC: Alert, able to understand and follow all commands LABORATORY DATA: See below. IMAGING: Chest x-ray appears to be a lesion on the left side, but the final read is pending MICROBIOLOGY: Please see below. ASSESSMENT: is a 63 yr old F w a PMH of Chronic COPD with chronic oxygen-dependent respiratory failure, Chronic diastolic CHF, SUYAPA, NIDDM complicated by neuropathy, Migraines, Adrenal adenoma, Hypothyroidism, Nonobstructive Chronic CAD, depression & bipolar disorder with adjustment disorder who will be admitted for management of acute hypercarbic respiratory failure & Acute COPD. PLAN: 1. Acute hypercarbic respiratory failure secondary to COPD exacerbation Trigger likely smoking vs left sided PNA vs viral infection, vs pulmonary embolism There appears to be a lesion on the left side of the chest x-ray, but the final read is pending PCO2 102.9, which is much higher than her baseline of around 60 BNP 160 Plan: admit to ICU / supplemental BIPAP + Pulm consult for co-management / continuous pulse oximetry / aspiration precautions / COPD diet / f/u ABG, d- dimer, influenza/ Dunebs Q6H, Albuterol Q41P, solumedrol now and switch to PO Prednisone tomorrow + PPI for GI px, switch to Levofloxacin PO tomorrow, Tessalon Pearls / c/w spiriva / follow up final chest x-ray report / refer to [facility] for repeat PFTs and Pulmonary Rehab when ready for d/c 2. SIRS/Sepsis 2/2 viral URI vs PNA SIRS criteria include respiratory rate of 24, heart rate of 98, WBC count of 17.7 Lactic acid is 0.8 Plan: telemetry / f/u up blood cultures/continue with antibiotics/follow-up respiratory panel, blood cx and sputum cx/acetaminophen for fever when necessary / will not give IV fluids to avoid fluid overload, which she is at risk of becuase she has CHF 3. Chronic diastolic congestive heart failure Plan: Continue home meds 4. Dfp-rejfsed-fnsoornej diabetes complicated by neuropathy A1c 8.7 in December Plan: diabetic diet / f/u accuchecks / hypoglycemia protocol / sliding scale insulin / hold oral anti-glycemics 5. Migraines Plan: Continue home meds 6. Hypothyroidism Plan: Continue home meds 7. Nonobstructive Chronic CAD status post STEMI 2012 Plan: Continue home meds 8. History of depression. / History of bipolar disorder with adjustment disorder Plan: Continue home meds 9. Tobacco Abuse Plan: Nicotine patch/smoking cessation education CT performed since with Lovenox Disposition pending clinical course Late entry 430AM 10.Elevated D-dimer D-dimer is 507 D-dimer increases at the age of 52. The upper limit of normal is age 12, which is 610 for her. Plan: No additional intervention Vital Signs Vital Signs Date Time Temp Pulse Resp B/P (MAP) Pulse Ox O2 Delivery O2 Flow Rate FiO2 02/25/19 00:25 96.8 02/25/19 00:25 24 02/25/19 00:10 30 02/24/19 23:53 Nasal Cannula 3.0 02/24/19 23:47 120 137/77 (97) 02/24/19 23:43 95 Laboratory Data Labs 24H Laboratory Tests 2 02/24/19 23:57: POC pH (Misc Panel) 7.228*L, POC Base Excess (Misc Panel) 15.0H, POC Saturated Percent O2 (Misc) 97, POC pO2 (Misc Panel) 119.0H, POC pCO2 (Misc Panel) 102.9*H, POC HCO3 (Misc Panel) 42.9H, POC Total CO2 (Misc Panel) 46.0H 02/25/19 00:14: Immature Granulocyte % (Auto) 1.9, White Blood Count 17.7H, Red Blood Count 5.02, Hemoglobin 13.6, Hematocrit 45.8, Mean Corpuscular Volume 91.2, Mean Corpuscular Hemoglobin 27.1, Mean Corpuscular Hemoglobin Concent 29.7L, Red Cell Distribution Width 16.4H, Platelet Count 399, Neutrophils (%) (Auto) 81.4H, Lymphocytes (%) (Auto) 10.0L, Monocytes (%) (Auto) 5.8H, Eosinophils (%) (Auto) 0.3, Basophils (%) (Auto) 0.6, Neutrophils # (Auto) 14.4H, Lymphocytes # (Auto) 1.8, Monocytes # (Auto) 1.0H, Eosinophils # (Auto) 0.1, Basophils # (Auto) 0.1, Nucleated Red Blood Cells % (auto) 0.0 CBC/BMP Laboratory Tests 02/25/19 00:14 Red Blood Count 5.02, Mean Corpuscular Volume 91.2, Mean Corpuscular Hemoglobin 27.1, Mean Corpuscular Hemoglobin Concent 29.7 L, Red Cell Distribution Width 16.4 H, Neutrophils (%) (Auto) 81.4 H, Lymphocytes (%) (Auto) 10.0 L, Monocytes (%) (Auto) 5.8 H, Eosinophils (%) (Auto) 0.3, Basophils (%) (Auto) 0.6, Neutrophils # (Auto) 14.4 H, Lymphocytes # (Auto) 1.8, Monocytes # (Auto) 1.0 H, Eosinophils # (Auto) 0.1, Basophils # (Auto) 0.1 Microbiology Microbiology 02/25/19 Blood Culture, Received Pending 02/25/19 Respiratory Virus Panel (PCR) (TERRANCE), Received Pending 02/25/19 Blood Culture, Received Pending Home Medications Scheduled Aripiprazole (Abilify) 5 Mg Tablet, 2.5 MG PO DAILY Aspirin (Aspirin EC) 81 Mg Tabec, 81 MG PO DAILY Atorvastatin Calcium (Lipitor) 80 Mg Tab, 80 MG PO QHS Bisoprolol Fumarate (Bisoprolol Fumarate) 5 Mg Tab, 2.5 MG PO DAILY Buspirone HCl (Buspirone HCl) 5 Mg Tablet, 5 MG PO BID Cetirizine HCl (Cetirizine HCl) 10 Mg Tablet, 10 MG PO DAILY Dapagliflozin Propanediol (Farxiga) 10 Mg Tablet, 10 MG PO Q2D Ergocalciferol (Vitamin D2) (Drisdol) 50,000 Unit Cap, 50,000 UNIT PO 1XWK FRIDAYS Fluoxetine HCl (Fluoxetine HCl) 20 Mg Tablet, 20 MG PO DAILY Fluticasone Propion/Salmeterol (Advair Hfa 230-21 Mcg Inhaler) 12 Gm Hfa.aer.ad, 2 PUFF INH BID Fluticasone Propionate (Flonase Allergy Relief) 50 Mcg/Act Spr, 1 SPRAY NARES DAILY Furosemide (Furosemide) 40 Mg Tablet, 40 MG PO BID Gabapentin (Gabapentin) 800 Mg Tab, 800 MG PO BID Levothyroxine Sodium (Levoxyl) 25 Mcg Tab, 25 MCG PO DAILY Metformin HCl (Metformin HCl) 1,000 Mg Tab, 1,000 MG PO BID Pantoprazole Sodium (Pantoprazole Sodium) 40 Mg Tab, 40 MG PO DAILY Potassium Chloride (Potassium Chloride) 8 Meq Tablet.er, 8 MEQ PO BID Prednisone (Prednisone) 5 Mg Tablet, 5 MG PO DAILY Prochlorperazine Maleate (Prochlorperazine Maleate) 10 Mg Tablet, 10 MG PO DAILY Sitagliptin Phosphate (Januvia) 100 Mg Tablet, 100 MG PO DAILY Tiotropium [place] (Spiriva) 18 Mcg Cap.w.dev, 1 INHALATION INH DAILY Scheduled PRN Albuterol Sulfate (Ventolin Hfa) 108 Mcg/Act Aer, 2 PUFFS INH Q4H PRN for SHORTNESS OF BREATH Hydrocodone/Acetaminophen ([place] 7.5-325 Tablet) 1 Each Tablet, 1 TAB PO BID PRN for PAIN Ipratropium/Albuterol Sulfate (Iprat-Albut 0.5-3(2.5) mg/3 ml) 3 Ml Ampul.neb, 1 VIAL INH QID PRN for SHORTNESS OF BREATH Lorazepam (Ativan) 0.5 Mg Tablet, 0.5 MG PO Q12H PRN for ANXIETY Nystatin (Nystatin Powder) 15 Gm Powder, 1 DOSE TOP QHS PRN for ITCH/RASH USES UNDER BREASTS Allergies Coded Allergies: Cat Dander (Verified Allergy, Unknown, 02/24/19) Dust (Verified Allergy, Unknown, 02/24/19) A-FIB/CHADSVASC A-FIB History Current/History of A-Fib/PAF?: No Current PO Anticoag Therapy: No JET REEDER MD Feb 25, 2019 00:56
[2019-02-25] MEDS ORDERED: ALBUTEROL SULFATE 2.5 MG/0.5 ML INH NEB SOLN NEB PRN (01:00)
[2019-02-25] MEDS ORDERED: ACETAMINOPHEN TAB 650MG DOSE (2X325MG) PO PRN (01:00)
[2019-02-25 01:22] LABS: BLOOD UREA NITROGEN 13 MG/DL (7-18); CALCIUM LEVEL 7.9 MG/DL (8.8-10.2); CARBON DIOXIDE LEVEL 39 MEQ/L (21-32); CHLORIDE LEVEL 95 MEQ/L (98-107); CK-MB VALUE MASS 1.5 NG/ML (<3.6); CPK CREATINE PHOSPHOKINASE 54 U/L (26-192); GLOMERULAR FILTRATION RATE > 60.0 (>45); GLUCOSE, FASTING 228 MG/DL (70-100); MB/CK RELATIVE INDEX 2.78 (< OR =4); NT-PRO BNP 160 PG/ML (<125); POTASSIUM SERUM 3.7 MEQ/L (3.5-5.1); SODIUM LEVEL 140 MEQ/L (136-145); TROPONIN I < 0.02 NG/ML (< 0.10)
[2019-02-25] MEDS ORDERED: FLUBLOK(EGG FREE)(QUAD)INFLUENZA VACC 0.5ML SYRINGE (90682)18YRS&OLDER IM SCH (04:15)
[2019-02-25] MEDS ORDERED: GLUCAGON FOR INJ 1 MG VIAL (J1610) SC PRN (04:30)
[2019-02-25] MEDS ORDERED: ANEXSIA, NORCO 7.5MG/325MG TABLET(HYDROCODONE/APAP) PO PRN (04:30)
[2019-02-25] MEDS ORDERED: DEXTROSE 50% 50 ML SYRINGE IV PRN (04:30)
[2019-02-25] MEDS ORDERED: LORazepam 0.5 MG TAB PO PRN (04:30)
[2019-02-25] MEDS ORDERED: GLUCOSE 4 GM CHEW TABLET PO PRN (04:30)
[2019-02-25] MEDS ORDERED: PILL CUTTER 1 EACH XX PRN (05:00)
[2019-02-25 05:04] LABS: HEMATOCRIT 39.2 % (36.0-47.0); HEMOGLOBIN 11.8 g/dl (12.0-15.5); MEAN CORPUSCULAR HEMOGLOBIN 26.6 pg (27.0-33.0); MEAN CORPUSCULAR HGB CONC 30.1 g/dl (32.0-36.5); MEAN CORPUSCULAR VOLUME 88.3 fl (80.0-96.0); PLATELET COUNT, AUTOMATED 331 10^3/uL (150-450); RED BLOOD COUNT 4.44 10^6/uL (4.00-5.40); WHITE BLOOD COUNT 13.2 10^3/uL (4.0-10.0)
[2019-02-25 05:27] LABS: BLOOD UREA NITROGEN 15 MG/DL (7-18); CALCIUM LEVEL 8.9 MG/DL (8.8-10.2); CARBON DIOXIDE LEVEL 37 MEQ/L (21-32); CHLORIDE LEVEL 94 MEQ/L (98-107); CREATININE FOR GFR 0.45 MG/DL (0.55-1.30); GLOMERULAR FILTRATION RATE > 60.0 (>45); GLUCOSE, FASTING 245 MG/DL (70-100); MAGNESIUM LEVEL 1.8 MG/DL (1.8-2.4); POTASSIUM SERUM 3.3 MEQ/L (3.5-5.1); SODIUM LEVEL 138 MEQ/L (136-145)
[2019-02-25] MEDS ORDERED: POTASSIUM CHLORIDE 10 MEQ SR TABLET PO ONE (06:15)
[2019-02-25] MEDS: LevoFLOXacin 750 MG TABLET PO SCH (06:22)
[2019-02-25] MEDS: LEVOTHYROXINE 25MCG TABLET (0.025MG) PO SCH (06:22)
[2019-02-25] MEDS: TIOTROPIUM INHALER/CAPSULE (SPIRIVA) INH SCH (07:18)
--- NOTE | 2019-02-25 07:30 | ECGEPIP ---
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
[2019-02-25 08:09] LABS: ABG HCO3 36.6 MEQ/L (22.0-26.0); ABG O2 LITER FLOW 25; ABG O2 SATURATION 97.3 % (95.0-99.0); ABG PARTIAL PRESSURE CO2 52.9 mmHg (35.0-45.0); ABG PARTIAL PRESSURE O2 126.5 mmHg (75.0-100.0); ABG STANDARD HCO3 34.7 MEQ/L (22.0-26.0); ABG TOTAL CO2 38.2 MEQ/L (23.0-31.0); ABG pH (ARTERIAL) 7.458 UNITS (7.350-7.450)
--- NOTE | 2019-02-25 08:15 | REP ---
Portable chest x-ray: Single view. History: Shortness of breath. Comparison chest x-ray: February 13, 2019. Findings: EKG electrodes are seen along with oxygen delivery tubing. There is a mild levoconvex upper thoracic and dextroconvex mid thoracic curvature again noted. No other bony abnormality is seen. The heart is not enlarged. No infiltrate is seen in the lung cherry. Pleural angles are sharp. Pulmonary vasculature is not increased. Impression: No infiltrate seen. Electronically Signed by Ponce Higgins MD 02/25/2019 08:39 A
[2019-02-25] MEDS: HumaLOG INSULIN (NovoLOG) PER UNIT SC SCH ×3 (08:25→17:38)
[2019-02-25] MEDS: FLUTICASONE PROP 0.05% NASAL SPRAY 16 GM (FLONASE) NARES SCH (08:59)
[2019-02-25] MEDS: ASPIRIN 81 MG ENTERIC TAB PO SCH (09:00)
[2019-02-25] MEDS: ENOXAPARIN 40 MG/0.4 ML SYRINGE (J1650) SC SCH (09:00)
[2019-02-25] MEDS: NICOTINE 14 MG/24 HR TRANSDERMAL TD SCH (09:00)
[2019-02-25] MEDS: busPIRone 5 MG TAB PO SCH ×2 (09:01→20:13)
[2019-02-25] MEDS: GABAPENTIN 400 MG CAP PO SCH ×2 (09:01→20:13)
[2019-02-25] MEDS: BISOPROLOL FUM 2.5 MG PER 1/2TAB PO SCH (09:01)
[2019-02-25] MEDS: PROCHLORPERAZINE 5 MG TAB (S0183) PO SCH (09:01)
[2019-02-25] MEDS: FLUoxetine 20 MG CAP PO SCH (09:02)
[2019-02-25] MEDS: FUROSEMIDE 40 MG TAB PO SCH ×2 (09:02→20:13)
[2019-02-25] MEDS: PANTOPRAZOLE 40MG TAB (PROTONIX) PO SCH (09:02)
--- NOTE | 2019-02-25 10:45 | IPNPDOC ---
Text Note Date of Service The patient was seen on 02/25/19. NOTE Patient seen and examined at bedside in ICU Vital signs stable . Lungs diminished breath sounds but good air entry bilaterally Patient has been off BiPAP . She has refused Lovenox was DC'd and is started bilateral SCDs Patient also not taken Abilify. Will DC the med Continue by mouth prednisone and nebulizer treatment as patient is improving Patient wanted to go home today, but advised to stay 24 more hours for observation And possibly will be discharged home tomorrow on by mouth prednisone and all her home medications VS,Fishbone, I+O VS, Fishbone, I+O Laboratory Tests 02/25/19 00:14 Red Blood Count 5.02, Mean Corpuscular Volume 91.2, Mean Corpuscular Hemoglobin 27.1, Mean Corpuscular Hemoglobin Concent 29.7 L, Red Cell Distribution Width 16.4 H, Neutrophils (%) (Auto) 81.4 H, Lymphocytes (%) (Auto) 10.0 L, Monocytes (%) (Auto) 5.8 H, Eosinophils (%) (Auto) 0.3, Basophils (%) (Auto) 0.6, Neutrophils # (Auto) 14.4 H, Lymphocytes # (Auto) 1.8, Monocytes # (Auto) 1.0 H, Eosinophils # (Auto) 0.1, Basophils # (Auto) 0.1, Calcium Level 7.9 L, Total Creatine Kinase 54 02/25/19 04:55 Red Blood Count 4.44, Mean Corpuscular Volume 88.3, Mean Corpuscular Hemoglobin 26.6 L, Mean Corpuscular Hemoglobin Concent 30.1 L, Red Cell Distribution Width 16.2 H, Calcium Level 8.9 Vital Signs Date Time Temp Pulse Resp B/P (MAP) Pulse Ox O2 Delivery O2 Flow Rate FiO2 02/25/19 09:01 96 119/61 02/25/19 07:22 25 02/25/19 05:19 21 97 02/25/19 04:45 BIPAP/CPAP 02/25/19 03:57 97.8 02/24/19 23:53 3.0 I&O- Last 24 Hours up to 6 AM 02/25/19 06:00 Intake Total 350 ml Output Total 800 ml Balance -450 ml JESSICA FOSTER MD Feb 25, 2019 10:45
[2019-02-25] MEDS: POTASSIUM CHLORIDE 10 MEQ SR TABLET PO SCH (20:13)
[2019-02-25] MEDS ORDERED: HumaLOG INSULIN (NovoLOG) PER UNIT SC SCH (21:00)
[2019-02-25] MEDS ORDERED: ATORVASTATIN 20 MG TAB PO SCH (21:00)
[2019-02-26] VITALS (13 sets, daily range): BP systolic 99–108; BP diastolic 58–66; O2SAT 88–96
[2019-02-26] MEDS: IPRATROPIUM 0.5MG/ALBUTEROL 2.5MG INH SOL UD 3ML (DUONEB)(J7620) NEB SCH ×2 (01:22→08:36)
[2019-02-26 05:46] LABS: ALBUMIN 2.8 GM/DL (3.2-5.2); ALT/SGPT 21 U/L (12-78); BILIRUBIN,TOTAL 0.3 MG/DL (0.2-1.0); BLOOD UREA NITROGEN 13 MG/DL (7-18); CALCIUM LEVEL 8.5 MG/DL (8.8-10.2); CARBON DIOXIDE LEVEL 41 MEQ/L (21-32); CHLORIDE LEVEL 91 MEQ/L (98-107); CREATININE FOR GFR 0.61 MG/DL (0.55-1.30); GLOMERULAR FILTRATION RATE > 60.0 (>45); GLUCOSE, FASTING 182 MG/DL (70-100); MAGNESIUM LEVEL 1.7 MG/DL (1.8-2.4); POTASSIUM SERUM 3.2 MEQ/L (3.5-5.1); SODIUM LEVEL 137 MEQ/L (136-145); TOTAL PROTEIN 6.3 GM/DL (6.4-8.2)
[2019-02-26] MEDS: LEVOTHYROXINE 25MCG TABLET (0.025MG) PO SCH (05:59)
[2019-02-26] MEDS: LevoFLOXacin 750 MG TABLET PO SCH (05:59)
[2019-02-26 06:06] LABS: ABG BASE EXCESS 9.9 (-2.0-2.0); ABG O2 SATURATION 95.5 % (95.0-99.0); ABG PARTIAL PRESSURE CO2 49.6 mmHg (35.0-45.0); ABG PARTIAL PRESSURE O2 86.5 mmHg (75.0-100.0); ABG STANDARD HCO3 33.6 MEQ/L (22.0-26.0); ABG TOTAL CO2 36.5 MEQ/L (23.0-31.0); ABG pH (ARTERIAL) 7.466 UNITS (7.350-7.450)
[2019-02-26] MEDS ORDERED: MAG SULF 1GM/100ML (MAG RUN) 1 GM in IV 1 EA IV ONE (06:30)
[2019-02-26] MEDS ORDERED: POTASSIUM CHLORIDE 10 MEQ SR TABLET PO ONE (06:30)
[2019-02-26] MEDS: TIOTROPIUM INHALER/CAPSULE (SPIRIVA) INH SCH (08:36)
[2019-02-26] MEDS: NICOTINE 14 MG/24 HR TRANSDERMAL TD SCH (08:46)
[2019-02-26] MEDS: PROCHLORPERAZINE 5 MG TAB (S0183) PO SCH (08:49)
[2019-02-26] MEDS: HumaLOG INSULIN (NovoLOG) PER UNIT SC SCH (08:49)
[2019-02-26] MEDS: busPIRone 5 MG TAB PO SCH (08:50)
[2019-02-26] MEDS: FUROSEMIDE 40 MG TAB PO SCH (08:50)
[2019-02-26] MEDS: ASPIRIN 81 MG ENTERIC TAB PO SCH (08:50)
[2019-02-26] MEDS: GABAPENTIN 400 MG CAP PO SCH (08:50)
[2019-02-26] MEDS: BISOPROLOL FUM 2.5 MG PER 1/2TAB PO SCH (08:50)
[2019-02-26] MEDS: FLUoxetine 20 MG CAP PO SCH (08:51)
[2019-02-26] MEDS: PANTOPRAZOLE 40MG TAB (PROTONIX) PO SCH (08:51)
[2019-02-26] MEDS: POTASSIUM CHLORIDE 10 MEQ SR TABLET PO SCH (08:51)
[2019-02-26] MEDS: FLUTICASONE PROP 0.05% NASAL SPRAY 16 GM (FLONASE) NARES SCH (08:52)
[2019-02-26] MEDS ORDERED: ENOXAPARIN 40 MG/0.4 ML SYRINGE (J1650) SC SCH (09:00)
[2019-02-26] MEDS ORDERED: predniSONE 20 MG TAB PO SCH (09:00)
[2019-02-26] MEDS ORDERED: LEVA750T7 PO (09:04)
[2019-02-26] MEDS ORDERED: PRED10TA2 PO (09:04)
--- NOTE | 2019-02-26 11:11 | DS.PDOC ---
Discharge Summary General Date of Admission Feb 25, 2019 at 00:56 Date of Discharge 02/26/19 Attending Physician: JESSICA FOSTER MD Discharge Summary PROCEDURES PERFORMED DURING STAY: None. ADMITTING DIAGNOSES: 1. Exacerbation of COPD, acute hypercarbic respiratory failure, viral infection. DISCHARGE DIAGNOSES: 1. Exacerbation of COPD, acute hypercarbic respiratory failure, viral infection, history of chronic congestive heart failure, diabetes mellitus, migraine, hypothyroidism, history of nonobstructive CAD, depression. COMPLICATIONS/CHIEF COMPLAINT: Copd Exacerbation. HISTORY OF PRESENT ILLNESS: This is a 63-year-old female presents with acutely worsening shortness of breath associated with worsening of her chronic cough. She denies change in the color the sputum. She denies having fevers, denies having chills, and denies having sick contacts. She is unable to quantify how many times she has been admitted for COPD this year, but reports it's been a lot. She has been intubated in the past because of acute COPD. She denies ever attending pulmonary rehabilitation.. HOSPITAL COURSE: This is 63 years old lady with frequent admissions with exacerbation of COPD again was admitted with a possible acute hypercarbic respiratory failure secondary to recurrent exacerbation of COPD this time, most likely secondary to viral infection. Patient was started to ICU initially she received to help with the BiPAP but it soon afterwards it was weaned off and patient was continued on by mouth steroids after receiving an IV dose of steroids in ED. Patient also was started on DuoNeb every 6 hours, albuterol every 4 hours. Patient was continued on all her home medications. DVT prophylaxis was provided with Lovenox. Patient also remained on oxygen supplementation. , But she responded very well to steroids and nebulizer treatment and she was clinically found to have a diminished but no more wheezing or rhonchi,and back to her chronic and baseline. Regarding her chronic condition. She was continued on all her home medications. Patient responded to conservative medical management very well on and she wished to be discharged home and she was at the baseline of for COPD patient had been discharged home on a by mouth Levaquin and a tapering dose of steroids. Will continue all home oxygen, Patient is scheduled to follow-up with her PCP in one week. DISCHARGE MEDICATIONS: Please see below. ALLERGIES: Please see below. PHYSICAL EXAMINATION ON DISCHARGE: VITAL SIGNS: Please see below. GENERAL: Within normal limits HEENT: PERRLA extraocular muscles intact intact NECK: Supple CARDIOVASCULAR EXAMINATION: S1, S2, regular RESPIRATORY EXAMINATION: Decreased breath sounds but no wheezing, no rhonchi is and no crackles ABDOMINAL EXAMINATION: , Soft, nontender, bowel sound present EXTREMITIES: No clubbing, cyanosis, edema SKIN: Normal NEUROLOGICAL EXAMINATION: . No focal motor sensory deficit PSYCHIATRIC EXAMINATION: Normal LABORATORY DATA: Please see below. IMAGING: Chest x-ray:Impression: No infiltrate seen. PROGNOSIS: Good ACTIVITY: As tolerated. DIET: As tolerated DISCHARGE PLAN: With PCP in one week. DISPOSITION: Home Health Service. DISCHARGE INSTRUCTIONS: 1. As per discharge instructions. ITEMS TO FOLLOWUP ON ON OUTPATIENT: 1. Follow with PCP in one week. DISCHARGE CONDITION: Stable. TIME SPENT ON DISCHARGE: 48 minutes. Vital Signs/I&Os Vital Signs Date Time Temp Pulse Resp B/P (MAP) Pulse Ox O2 Delivery O2 Flow Rate FiO2 02/26/19 08:50 86 107/66 02/26/19 06:00 92 Nasal Cannula 2.0 02/26/19 04:00 98.0 20 30 I&O- Last 24 Hours up to 6 AM 02/26/19 05:59 Intake Total 2900 ml Output Total 3700 ml Balance -800 ml Laboratory Data Labs 24H Laboratory Tests 2 02/25/19 12:09: Bedside Glucose (Misc Panel) 263H 02/25/19 17:33: Bedside Glucose (Misc Panel) 282H 02/25/19 20:15: Bedside Glucose (Misc Panel) 236H 02/26/19 04:51: Anion Gap 5L, Glomerular Filtration Rate > 60.0, Blood Urea Nitrogen 13, Creatinine 0.61, Sodium Level 137, Potassium Level 3.2L, Chloride Level 91L, Carbon Dioxide Level 41H, Calcium Level 8.5L, Aspartate Amino Transf (AST/SGOT) 10, Alanine Aminotransferase (ALT/SGPT) 21, Alkaline Phosphatase 94, Total Bilirubin 0.3, Total Protein 6.3L, Albumin 2.8L, Magnesium Level 1.7L, Albumin/Globulin Ratio 0.80L 02/26/19 06:00: Blood Gas Bicarbonate Standard 33.6H, Arterial Blood pH 7.466H, Arterial Blood Partial Pressure CO2 49.6H, Arterial Blood Partial Pressure O2 86.5, Arterial Blood Total CO2 36.5H, Arterial Blood HCO3 35.0H, Arterial Blood Base Excess 9.9H, Arterial Blood Oxygen Saturation 95.5 02/26/19 07:49: Bedside Glucose (Misc Panel) 207H CBC/BMP Laboratory Tests 02/26/19 04:51 Calcium Level 8.5 L, Aspartate Amino Transf (AST/SGOT) 10, Alanine Aminotransferase (ALT/SGPT) 21, Alkaline Phosphatase 94, Total Bilirubin 0.3, Total Protein 6.3 L, Albumin 2.8 L FSBS Laboratory Tests Test 02/25/19 12:09 02/25/19 17:33 02/25/19 20:15 02/26/19 07:49 Range/Units Bedside Glucose (Misc Panel) 263 282 236 207 80-115 MG/DL Microbiology Microbiology 02/25/19 Blood Culture - Preliminary, Resulted No growth after 24 hours . All specim... 02/25/19 Respiratory Virus Panel (PCR) (TERRANCE) - Final, Complete 02/25/19 Blood Culture - Preliminary, Resulted No growth after 24 hours . All specim... Discharge Medications Scheduled Aripiprazole (Abilify) 5 Mg Tablet, 2.5 MG PO DAILY, (Reported) Aspirin (Aspirin EC) 81 Mg Tabec, 81 MG PO DAILY, (Reported) Atorvastatin Calcium (Lipitor) 80 Mg Tab, 80 MG PO QHS, (Reported) Bisoprolol Fumarate (Bisoprolol Fumarate) 5 Mg Tab, 2.5 MG PO DAILY, (Reported) Buspirone HCl (Buspirone HCl) 5 Mg Tablet, 5 MG PO BID, (Reported) Cetirizine HCl (Cetirizine HCl) 10 Mg Tablet, 10 MG PO DAILY, (Reported) Dapagliflozin Propanediol (Farxiga) 10 Mg Tablet, 10 MG PO Q2D, (Reported) Ergocalciferol (Vitamin D2) (Drisdol) 50,000 Unit Cap, 50,000 UNIT PO 1XWK, (Reported) FRIDAYS Fluoxetine HCl (Fluoxetine HCl) 20 Mg Tablet, 20 MG PO DAILY, (Reported) Fluticasone Propion/Salmeterol (Advair Hfa 230-21 Mcg Inhaler) 12 Gm Hfa.aer.ad, 2 PUFF INH BID, (Reported) Fluticasone Propionate (Flonase Allergy Relief) 50 Mcg/Act Spr, 1 SPRAY NARES DAILY, (Reported) Furosemide (Furosemide) 40 Mg Tablet, 40 MG PO BID, (Reported) Gabapentin (Gabapentin) 800 Mg Tab, 800 MG PO BID, (Reported) Levofloxacin (Levaquin) 750 Mg Tablet, 750 MG PO DAILY@06 Levothyroxine Sodium (Levoxyl) 25 Mcg Tab, 25 MCG PO DAILY, (Reported) Metformin HCl (Metformin HCl) 1,000 Mg Tab, 1,000 MG PO BID, (Reported) Pantoprazole Sodium (Pantoprazole Sodium) 40 Mg Tab, 40 MG PO DAILY, (Reported) Potassium Chloride (Potassium Chloride) 8 Meq Tablet.er, 8 MEQ PO BID, (Reported) Prednisone (Prednisone) 5 Mg Tablet, 5 MG PO DAILY, (Reported) Prednisone (Prednisone) 10 Mg Tablet, 10 MG PO TAPER Take 4 tabs daily x 3 days, then 3 tabs daily x 3 days, then 2 tabs daily x 3 days, then 1 tab daily x 3 days and stop Prochlorperazine Maleate (Prochlorperazine Maleate) 10 Mg Tablet, 10 MG PO DAILY, (Reported) Sitagliptin Phosphate (Januvia) 100 Mg Tablet, 100 MG PO DAILY, (Reported) Tiotropium [place] (Spiriva) 18 Mcg Cap.w.dev, 1 INHALATION INH DAILY, (Reported) Scheduled PRN Albuterol Sulfate (Ventolin Hfa) 108 Mcg/Act Aer, 2 PUFFS INH Q4H PRN for SHORTNESS OF BREATH, (Reported) Hydrocodone/Acetaminophen ([place] 7.5-325 Tablet) 1 Each Tablet, 1 TAB PO BID PRN for PAIN, (Reported) Ipratropium/Albuterol Sulfate (Iprat-Albut 0.5-3(2.5) mg/3 ml) 3 Ml Ampul.neb, 1 VIAL INH QID PRN for SHORTNESS OF BREATH, (Reported) Lorazepam (Ativan) 0.5 Mg Tablet, 0.5 MG PO Q12H PRN for ANXIETY, (Reported) Nystatin (Nystatin Powder) 15 Gm Powder, 1 DOSE TOP QHS PRN for ITCH/RASH, (R eported) USES UNDER BREASTS Allergies Coded Allergies: Cat Dander (Verified Allergy, Unknown, 02/24/19) Dust (Verified Allergy, Unknown, 02/24/19) JESSICA FOSTER MD Feb 26, 2019 11:11
== END 2019-02-26 10:10 | disposition home health service (06) | DRG 189 ==
LOC: M ED 23:41 → M ED INP 02-25 00:56 → M ICU 02-25 03:54
PROVIDERS: ADMIT Internal Medicine; ATTEND Internal Medicine
DX: J96.02 Acute respiratory failure with hypercapnia (principal); J44.1 Chronic obstructive pulmonary disease with (acute) exacerbation; I50.32 Chronic diastolic (congestive) heart failure; E11.40 Type 2 diabetes mellitus with diabetic neuropathy, unspecified; G43.909 Migraine, unspecified, not intractable, without status migrainosus; E03.9 Hypothyroidism, unspecified; I25.10 Atherosclerotic heart disease of native coronary artery without angina pectoris; F31.9 Bipolar disorder, unspecified; B34.9 Viral infection, unspecified; Z79.899 Other long term (current) drug therapy; Z79.82 Long term (current) use of aspirin; Z99.81 Dependence on supplemental oxygen; I25.2 Old myocardial infarction; M79.7 Fibromyalgia; F17.200 Nicotine dependence, unspecified, uncomplicated; Z79.52 Long term (current) use of systemic steroids

== ENCOUNTER 2019-03-12 04:22 | Emergency (ER) | payer MEDICARE, MEDICAID ==
[~2019-03-12] VITALS: Ht 165.1 cm; Wt 84.1 kg
[~2019-03-12 04:22] MED LIST changes: -OMEP40CA2 PO; +OMEP40CA97 PO; +SENN-53 PO; -SENN1TAB40 PO
[2019-03-12] MEDS: IPRATROPIUM 0.5MG/ALBUTEROL 2.5MG INH SOL UD 3ML (DUONEB)(J7620) NEB SCH ×3 (05:22→06:02)
[2019-03-12 05:23] LABS: BASO # 0.1 10^3/uL (0.0-0.2); BASO % 0.5 % (0.0-1.0); EOS # 0.1 10^3/uL (0.0-0.5); EOS % 0.6 % (0.0-3.0); HEMATOCRIT 41.7 % (36.0-47.0); HEMOGLOBIN 12.3 g/dl (12.0-15.5); LYMPH # 1.9 10^3/uL (1.5-5.0); LYMPH % 15.3 % (24.0-44.0); MEAN CORPUSCULAR HEMOGLOBIN 26.3 pg (27.0-33.0); MEAN CORPUSCULAR HGB CONC 29.5 g/dl (32.0-36.5); MEAN CORPUSCULAR VOLUME 89.3 fl (80.0-96.0); MONO # 0.9 10^3/uL (0.0-0.8); MONO % 7.5 % (0.0-5.0); NEUTROPHILS # 9.4 10^3/uL (1.5-8.5); NEUTROPHILS % 74.7 % (36.0-66.0); PLATELET COUNT, AUTOMATED 434 10^3/uL (150-450); RED BLOOD COUNT 4.67 10^6/uL (4.00-5.40); WHITE BLOOD COUNT 12.6 10^3/uL (4.0-10.0)
[2019-03-12 05:58] LABS: ALBUMIN 3.3 GM/DL (3.2-5.2); ALT/SGPT 26 U/L (12-78); BILIRUBIN,DIRECT 0.1 MG/DL (0.0-0.2); BILIRUBIN,TOTAL 0.3 MG/DL (0.2-1.0); CK-MB VALUE MASS 1.7 NG/ML (<3.6); CPK CREATINE PHOSPHOKINASE 41 U/L (26-192); MB/CK RELATIVE INDEX 4.15 (< OR =4); NT-PRO BNP 357 PG/ML (<125); THYROXINE (T4) 8.5 UG/DL (4.5-12.0); TOTAL PROTEIN 6.4 GM/DL (6.4-8.2); TROPONIN I < 0.02 NG/ML (< 0.10)
[2019-03-12] MEDS ORDERED: PRED20TA PO (06:30)
[2019-03-12 06:37] VITALS: BP 128/69
--- NOTE | 2019-03-12 07:56 | ECGEPIP ---
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
--- NOTE | 2019-03-12 08:22 | REP ---
Portable chest x-ray: Single view. History: Dyspnea and cough. Comparison chest x-ray: February 25, 2019. Findings: Monitoring electrodes are seen along with oxygen delivery tubing. Lungs are well inflated and free of infiltrate. The pleural angles are sharp. Heart size is normal. Pulmonary vasculature is not increased. Impression: No acute disease. Electronically Signed by Ponce Higgins MD 03/12/2019 08:14 A
== END 2019-03-12 06:46 | disposition home or self-care (01) ==
LOC: M ED 04:22
DX: J44.1 Chronic obstructive pulmonary disease with (acute) exacerbation (principal); E11.9 Type 2 diabetes mellitus without complications; I10 Essential (primary) hypertension; J30.89 Other allergic rhinitis; Z87.891 Personal history of nicotine dependence

== ENCOUNTER 2019-03-21 00:44 | Emergency (ER) | payer MEDICARE, MEDICAID ==
[~2019-03-21] VITALS: Ht 165.1 cm; Wt 79.5 kg
[2019-03-21] MEDS ORDERED: IPRATROPIUM 0.5MG/ALBUTEROL 2.5MG INH SOL UD 3ML (DUONEB)(J7620) NEB ONE (02:00)
[2019-03-21 02:40] VITALS: BP 145/72
== END 2019-03-21 02:44 | disposition home or self-care (01) ==
LOC: M ED 00:44
DX: Z76.0 Encounter for issue of repeat prescription (principal); J44.9 Chronic obstructive pulmonary disease, unspecified; E11.9 Type 2 diabetes mellitus without complications; I10 Essential (primary) hypertension; Z79.51 Long term (current) use of inhaled steroids; Z79.82 Long term (current) use of aspirin; Z79.84 Long term (current) use of oral hypoglycemic drugs; Z79.899 Other long term (current) drug therapy

== ENCOUNTER → 2019-03-23 | Outpatient (REF) | payer MEDICARE, MEDICAID ==
[2019-03-23 12:14] LABS: HEMATOCRIT 42.6 % (36.0-47.0); HEMOGLOBIN 12.5 g/dl (12.0-15.5); MEAN CORPUSCULAR HEMOGLOBIN 25.7 pg (27.0-33.0); MEAN CORPUSCULAR HGB CONC 29.3 g/dl (32.0-36.5); MEAN CORPUSCULAR VOLUME 87.7 fl (80.0-96.0); PLATELET COUNT, AUTOMATED 439 10^3/uL (150-450); RED BLOOD COUNT 4.86 10^6/uL (4.00-5.40); WHITE BLOOD COUNT 14.3 10^3/uL (4.0-10.0)
[2019-03-23 12:21] LABS: ALBUMIN 3.5 GM/DL (3.2-5.2); ALT/SGPT 21 U/L (12-78); BILIRUBIN,TOTAL 0.5 MG/DL (0.2-1.0); BLOOD UREA NITROGEN 16 MG/DL (7-18); CALCIUM LEVEL 8.7 MG/DL (8.8-10.2); CARBON DIOXIDE LEVEL 39 MEQ/L (21-32); CHLORIDE LEVEL 90 MEQ/L (98-107); CHOLESTEROL LEVEL 137 MG/DL (<200); CHOLESTEROL RISK RATIO 3.044 (<5); CREATININE FOR GFR 0.67 MG/DL (0.55-1.30); GLOMERULAR FILTRATION RATE > 60.0 (>45); GLUCOSE, FASTING 210 MG/DL (70-100); HDL CHOLESTEROL 45 MG/DL (>40); LDL CHOLESTEROL 35 MG/DL (<100); NON-HDL-C 92 MG/DL; POTASSIUM SERUM 3.7 MEQ/L (3.5-5.1); SODIUM LEVEL 137 MEQ/L (136-145); THYROID STIMULATING HORMONE 0.336 uIU/ML (0.358-3.740); TOTAL PROTEIN 6.8 GM/DL (6.4-8.2); TRIGLYCERIDES LEVEL 287 MG/DL (<150)
== END ==
LOC: M LAB REF 11:38
PROVIDERS: ATTEND Family Medicine
DX: E03.9 Hypothyroidism, unspecified (principal); I10 Essential (primary) hypertension

== ENCOUNTER 2019-04-30 00:27 | Inpatient (IN) | payer MEDICARE, MEDICAID ==
[~2019-04-30] VITALS: Ht 165.1 cm; Wt 82.6 kg
[2019-04-30] VITALS (41 sets, daily range): BP systolic 98–131; BP diastolic 52–71; O2SAT 94
[~2019-04-30 00:27] MED LIST changes: -SULF1TAB72 PO; +SULF400T14 PO
[2019-04-30] MEDS ORDERED: SUCCINYLCHOLINE 100 MG/5 ML SYRINGE (J0330) ONE (00:28)
[2019-04-30] MEDS ORDERED: ETOMIDATE INJ 20MG/10ML VIAL ONE (00:28)
[2019-04-30] MEDS ORDERED: dexameTHASONE 20 MG/5 ML VIAL (J1100) As Ordered ONE (00:38)
[2019-04-30] MEDS ORDERED: FUROSEMIDE 100 MG/10 ML VIAL (J1940) As Ordered ONE (00:47)
[2019-04-30] MEDS ORDERED: FUROSEMIDE 100 MG/10 ML VIAL (J1940) IV ONE (01:00)
[2019-04-30] MEDS ORDERED: dexameTHASONE 20 MG/5 ML VIAL (J1100) IV ONE (01:00)
[2019-04-30] MEDS ORDERED: SERT-138 PO (01:02)
[2019-04-30] MEDS ORDERED: ALPR0.5T3 PO (01:02)
[2019-04-30] MEDS ORDERED: PATIENT COMMENTS (01:02)
[2019-04-30] MEDS ORDERED: PROPOFOL 1,000 MG/100 ML VIAL As Ordered ONE (01:02)
[2019-04-30 01:29] LABS: HEMOGLOBIN 11.5 g/dl (12.0-15.5); MEAN CORPUSCULAR HEMOGLOBIN 25.2 pg (27.0-33.0); MEAN CORPUSCULAR HGB CONC 27.4 g/dl (32.0-36.5); MEAN CORPUSCULAR VOLUME 91.9 fl (80.0-96.0); PLATELET COUNT, AUTOMATED 642 10^3/uL (150-450); RED BLOOD COUNT 4.57 10^6/uL (4.00-5.40); WHITE BLOOD COUNT 26.3 10^3/uL (4.0-10.0)
[2019-04-30 01:33] LABS: INR 1.08; PROTHROMBIN TIME 13.7 SECONDS (11.8-14.0)
[2019-04-30 01:34] LABS: PARTIAL THROMBOPLASTIN TIME 27.5 SECONDS (25.0-38.4)
[2019-04-30 01:43] LABS: BLOOD UREA NITROGEN 20 MG/DL (7-18); CALCIUM LEVEL 8.5 MG/DL (8.8-10.2); CARBON DIOXIDE LEVEL 41 MEQ/L (21-32); CHLORIDE LEVEL 92 MEQ/L (98-107); CK-MB VALUE MASS 1.7 NG/ML (<3.6); CPK CREATINE PHOSPHOKINASE 56 U/L (26-192); CREATININE FOR GFR 0.78 MG/DL (0.55-1.30); GLOMERULAR FILTRATION RATE > 60.0 (>45); GLUCOSE, FASTING 273 MG/DL (70-100); MB/CK RELATIVE INDEX 3.04 (< OR =4); NT-PRO BNP 359 PG/ML (<125); POTASSIUM SERUM 3.9 MEQ/L (3.5-5.1); SODIUM LEVEL 139 MEQ/L (136-145); TROPONIN I < 0.02 NG/ML (< 0.10)
[2019-04-30] MEDS: PROPOFOL 1,000 MG in IV 1 EA IV SCH ×8 (01:48→22:09)
[2019-04-30 01:54] LABS: ATYPICAL LYMPH 1 % (0-5); LYMPHOCYTES 17 % (16-44); MONOCYTES 12 % (0-5); NEUTROPHILS 70 % (28-66)
[2019-04-30 01:55] LABS: POLYCHROMASIA 1+
[2019-04-30 01:56] LABS: ANISOCYTOSIS 1+; PLATELET ESTIMATE INCREASED (NORMAL)
[2019-04-30] MEDS ORDERED: NS 1,000 ML IV ONE (02:00)
[2019-04-30] MEDS ORDERED: SODIUM CHLORIDE 0.9% 1000ML IV SCH (03:15)
[2019-04-30] MEDS ORDERED: DEXTROSE 50% 50 ML SYRINGE IV PRN (03:30)
[2019-04-30] MEDS ORDERED: GLUCAGON FOR INJ 1 MG VIAL (J1610) SC PRN (03:30)
[2019-04-30] MEDS ORDERED: GLUCOSE 4 GM CHEW TABLET PO PRN (03:30)
[2019-04-30] MEDS ORDERED: VANCOMYCIN HCL 1,000 MG, VIAL MATE ADAPTER 1 EACH in D5W 250 ML IV ONE (03:30)
[2019-04-30] MEDS: HumaLOG INSULIN (NovoLOG) PER UNIT SC SCH ×4 (06:01→23:51)
[2019-04-30] MEDS: LEVOTHYROXINE 25MCG TABLET (0.025MG) PO SCH (06:01)
--- NOTE | 2019-04-30 06:11 | PHACANCOPD ---
PHARMACY VANCOMYCIN DOSING Pt Demographics Demographics Patient Age:63 , Weight:88.100 , Gender: female Adjusted Body Weight Date: 04/30/19, Adjusted Body Weight: Kg Events Past 24 Hours Events Past 24 Hours: NO: Dialysis, Diuretic Therapy, Change in CrCl, Fever, Elevation in WBC, Pending Diagnostics, Pending Procedures, Other Vancomycin Vancomycin Target Ranges: 15-20 mcg/ml Vancomycin Load Y/N: Yes Load Dose Date Time Vancomycin Load Dose: 2000mg Date: 04-30 Time: 0800 Vancomycin Dose Date: 04/30/19. Current Vancomycin Dose: [1000mg q8h] Intermittent Dosing?: No Labs Labs Item Value Date Time White Blood Count 26.3 10^3/uL H 04/30/19 0039 Glomerular Filtration Rate > 60.0 04/30/1938 Creatinine 0.78 MG/DL 04/30/1938 Blood Urea Nitrogen 20 MG/DL H 04/30/19 003 Vital Signs Label Value Date Time Patient Temperature 97.5 degrees F 04/30/19 0213 Temperature Source Temporal 04/30/19212 Micro Microbiology 04/30/19 Blood Culture, Received Pending 04/30/19 Blood Culture, Received Pending Creatinine Clearance Date:04/30/19. Creatinine Clearance: [~80]. Pending Labs Trough 04-30 @ 2300 Assessment and Plan Maintaining Current Dose?: Yes Reason for dose change: No Dose Change Pharmacist Note Pharmacist Note Date: 04/30/19. Pharmacist note:Will monitor and make adjustments as needed. JOSE EDUARDO [facility] Apr 30, 2019 06:11
[2019-04-30] MEDS ORDERED: PRED10TA2 PO (06:46)
[2019-04-30] MEDS ORDERED: VITA1CAP25 PO (06:46)
--- NOTE | 2019-04-30 06:51 | HPE ---
DATE OF ADMISSION: 04/30/2019 DATE OF SERVICE: 04/30/2019 Critical care time was 1 hour 11 minutes, this excludes all procedures. I was urgently called to the emergency room for this patient who was intubated for severe respiratory distress. The patient is known to this facility for having recurrent chronic obstructive pulmonary disease (COPD) exacerbations, presented with significant respiratory distress to the point where according to the emergency room physician was unable to speak. Arterial blood gas showed severe respiratory acidosis with a pH of 7.12, pCO2 of 128. At that point in time the patient was intubated. Previously the patient had advanced directives. According to the chart it says rescinded, however not signed. These will need to be clarified. There is no one in the room to provide history. The ER physician states that there was no reports of feeling ill prior to her respiratory presentation. PAST MEDICAL HISTORY: 1. GOLD stage IV COPD and chronic oxygen dependence with reported baseline oxygen at 2 liters. 2. History of diastolic dysfunction. 3. Obstructive sleep apnea, noncompliant with CPAP. 4. Diabetes with neuropathy. 5. History of migraines. 6. Adrenal adenoma. 7. Hypothyroidism. 8. Coronary artery disease status post ST elevation myocardial infarction (NC) 2012. 9. Depression. 10. Bipolar disorder with adjustment disorder. 11. Fibromyalgia. 12. Degenerative joint disease (DJD). 13. History of laparoscopic cholecystectomy. 14. History of tubal ligation. 15. History of dilatation and curettage. 16. Chronic narcotic and benzodiazepine use. SOCIAL HISTORY: According to the chart the patient is a smoker. Also has a positive history of marijuana. FAMILY HISTORY: Father with diabetes. Mother with lung cancer. REVIEW OF SYSTEMS: Unobtainable due to severity of illness. HOME MEDICATIONS: Actually what she was taking is unobtainable. According to the recent discharge from February, the patient takes: - Abilify 2.5 mg by mouth daily - aspirin 81 mg by mouth daily - atorvastatin 80 mg by mouth daily - bisoprolol 2.5 mg by mouth daily - BuSpar 5 mg by mouth twice a day - sertraline 10 mg by mouth daily - Farxiga 10 mg by mouth every two days - vitamin D 5000 units weekly - fluoxetine 20 mg by mouth daily - Advair 230/21 two puffs inhaled twice a day - Flonase one nasal spray daily - Lasix 40 mg by mouth twice a day - gabapentin 800 mg by mouth twice a day - levothyroxine 25 mg by mouth daily - metformin 1000 mg by mouth twice a day - potassium chloride 8 mEq by mouth twice a day - prednisone at least 5 mg by mouth daily - prochlorperazine 10 mg by mouth daily - Januvia 100 mg by mouth daily - Spiriva 18 mcg one inhalation daily - albuterol two puffs inhaled every 4 hours as needed for shortness breath - Redig 7.5/3.5 one tablet by mouth twice a day as needed for pain - Ativan 0.5 mg by mouth every 12 hours as needed for anxiety - nystatin powder as needed ALLERGIES: No known drug allergies. PHYSICAL EXAMINATION: Temperature is 97.5, pulse is 79 and sinus rhythm, oxygen saturations 97% on 0.40 FiO2 with a respiratory rate of 20, blood pressure is 92/51. GENERAL: Patient is sedated on mechanical ventilation, currently on 40 mcg/kg per minute of propofol. HEENT: Sclera clear and anicteric. Pupils equal and reactive to light. Pupils are near pinpoint, but do appear to react. Mucous membranes are moist without lesions. Tongue is midline. NECK: Supple. No tracheal deviation or mass. I am unable to discern any elevated jugular venous pressure (JVP). LYMPH: No cervical, supraclavicular or axillary adenopathy. CARDIAC: Distant S1-S2 without audible murmur, rub or gallop. No elevated JVP. No systemic edema. PULMONARY: Decreased breath sounds throughout with diffuse prolonged expiratory phase with prolonged expiratory wheeze. The patient currently is at a respiratory rate of 20. ABDOMEN: Obese, soft, nontender, nondistended. No discernible hepatosplenomegaly. No masses or hernia. EXTREMITIES: No cyanosis, clubbing or edema. SKIN: No rashes, jaundice or bruising. NEURO: She does have many beats of myoclonus when dorsiflexing the foot, eventually stopped. There is no evidence of seizure activity. The patient is sedated and there is no purposeful movement at this point in time. LABORATORIES: White blood cell count is elevated at 26.3, hemoglobin of 11.5, platelet count of 642, lactic acid of 3.9, sodium is 139, potassium 3.9, chloride is 92, bicarb of 41, BUN 20, with a creatinine 0.78 and a glucose of 273, lactic acid is 3.9, calcium is 8.5. Arterial blood gas now improved to 7.47, pCO2 of 50, PaO2 of 87. EKG shows sinus tachycardia with an intraventricular conduction delay with no acute ST abnormalities. Chest x-ray shows no evidence of infiltrate but there is a flattening of the diaphragm. Endotracheal tube is high. Orogastric tube does appear to end in the stomach below the diaphragm. There is no mass. There is no effusion. There is no infiltrate. IMPRESSION: 1. Acute respiratory failure likely secondary to COPD exacerbation. The patient has wheeze, bronchospasm on exam. Will continue mechanical ventilation. I have placed the patient on steroids. Because of leukocytosis and lactic acidosis and the fact that there is no clear history, I am treating the patient for possible sepsis. Broad-spectrum antibiotics were administered as there is no source of infection at this point in time. Procalcitonin was obtained in order to facilitate de-escalation of antibiotics if at all possible, along with a viral panel to see if there is a viral provocation of her respiratory failure. 2. Leukocytosis as above. 3. Lactic acidosis as above. Will repeat within 3 hours to ensure improvement. 4. Hyperglycemia with a history of diabetes. Will cover with sliding scale insulin. 5. Chronic narcotic use. Will have as needed morphine and benzodiazepines due to chronic history of both narcotic and chronic benzodiazepine use. 6. Hypothyroidism. Will continue on levothyroxine. 7. Chronic steroid use. I have placed the patient on Solu-Medrol because of bronchospasm. There is no evidence of adrenal insufficiency as of yet. The patient remains critically ill with a history of recurrent respiratory failure. Critical care time as mentioned above, this excludes all procedures. 8. Deep vein thrombosis (DVT) prophylaxis with Lovenox. 9. Gastrointestinal (GI) prophylaxis with Protonix. The patient remains intubated. Will initiate tube feeds within the next 24 hours. MTDD
[2019-04-30] MEDS: methylPREDNISolone INJ 125 MG/2 ML VIAL (J2930) IV SCH ×3 (07:49→23:51)
[2019-04-30] MEDS: MEROPENEM INJ 1 GM in IV 1 EA IV SCH ×2 (07:54→17:42)
[2019-04-30] MEDS: PANTOPRAZOLE 40MG INJ (PROTONIX) (C9113) IV SCH (07:55)
[2019-04-30] MEDS: ENOXAPARIN 40 MG/0.4 ML SYRINGE (J1650) SC SCH (07:56)
[2019-04-30] MEDS: CHLORHEXIDINE GLUCONATE 0.12 % 15ML UDC (PERIDEX ORAL RINSE) MT SCH ×2 (07:56→19:21)
[2019-04-30] MEDS: IPRATROPIUM 0.5MG/ALBUTEROL 2.5MG INH SOL UD 3ML (DUONEB)(J7620) NEB SCH ×4 (08:06→20:04)
[2019-04-30] MEDS: VANCOMYCIN HCL 1,000 MG, VIAL MATE ADAPTER 1 EACH in D5W 250 ML IV SCH ×3 (08:41→23:51)
--- NOTE | 2019-04-30 09:15 | REP ---
AP PORTABLE CHEST: 04/30/2019 at 12:53 AM. COMPARISON: 03/12/2019. CLINICAL HISTORY: Dyspnea. FINDINGS: The lung cherry are well inflated. Some underlying interstitial changes. Heart not grossly enlarged. The aorta is calcified, tortuous, but unchanged. There is some patchy basilar atelectasis or infiltrate in the right medial base at least partially abutting the diaphragm in the middle lobe. There are also heavier markings in the left base. No gross effusion. There does appear to be some mild venous engorgement compared to the previous study but no gabriele edema. IMPRESSION: 1. Patchy right medial base atelectasis or infiltrate and basilar fibroatelectatic changes on the left as well. 2. No cardiomegaly but some venous engorgement. No gabriele edema or gross effusion. Electronically Signed by Ney Ramos MD 04/30/2019 07:43 P
--- NOTE | 2019-04-30 10:15 | REP ---
AP PORTABLE CHEST: 04/30/2019 at 1:16 AM. COMPARISON: 04/30/2019 at 12:53 a.m. and 03/12/2019. CLINICAL HISTORY: Intubation. FINDINGS: There is now an endotracheal tube in place, tip approximately 6 cm from the tammie but below the thoracic inlet. Nasogastric tube is also present with its tip off the field into the left upper quadrant of the stomach. The proximal port is visible below the GE junction. Lungs are slightly better inflated with decrease in basilar atelectatic change, underlying fibrosis, and COPD. Heart size not enlarged. The same or slightly less vascular congestion. Other changes are again seen and stable. IMPRESSION: 1. Endotracheal intubation with nasogastric tube placement, as described above. Slightly better inflation decreasing basilar atelectatic change. 2. COPD and some fibrotic change. 3. Normal heart size. Same or slightly improved vascular engorgement noted. Electronically Signed by Ney Ramos MD 04/30/2019 07:45 P
[2019-04-30] MEDS: MIDAZOLAM INJ 2 MG/2 ML VIAL (J2250) IV PRN ×3 (13:44→23:52)
--- NOTE | 2019-04-30 23:39 | PHACANCOPD ---
PHARMACY VANCOMYCIN DOSING Pt Demographics Demographics Patient Age:63 , Weight:84.500 , Gender: female Adjusted Body Weight Date: 04/30/19, Adjusted Body Weight: Kg Events Past 24 Hours Events Past 24 Hours: NO: Dialysis, Diuretic Therapy, Change in CrCl, Fever, Elevation in WBC, Pending Diagnostics, Pending Procedures, Other Vancomycin Vancomycin Target Ranges: 15-20 mcg/ml Vancomycin Load Y/N: Yes Load Dose Date Time Vancomycin Load Dose: 2000mg Date: 04-30 Time: 0800 Vancomycin Dose Date: 04/30/19. Current Vancomycin Dose: [1000mg q8h] Intermittent Dosing?: No Labs Labs Item Value Date Time White Blood Count 26.3 10^3/uL H 04/30/199 Glomerular Filtration Rate > 60.0 04/30/1938 Creatinine 0.78 MG/DL 04/30/1938 Blood Urea Nitrogen 20 MG/DL H 04/30/1938 Vancomycin Level Trough 13.3 UG/ML 04/30/196 Vital Signs Label Value Date Time Patient Temperature 97.8 degrees F 04/30/191999 Temperature Source Temporal 04/30/191999 Micro Microbiology 04/30/19 Respiratory Virus Panel (PCR) ([facility]) - Final, Complete 04/30/19 Blood Culture, Received Pending 04/30/19 Blood Culture, Received Pending Creatinine Clearance Date:04/30/19. Creatinine Clearance: [~80]. Pending Labs Trough 12-8 @ 1500 Assessment and Plan Maintaining Current Dose?: Yes Reason for dose change: No Dose Change Pharmacist Note Pharmacist Note Date: 04/30/19. Pharmacist note:Trough of 13.3 is below target range, but will continue current dosing for now. Trough ordered for 12-8 @1500, will adjust at that time if level remains low. Will monitor and make adjustments as needed. JOSE EDUARDO PEREZ [facility]ARMAC[facility] Apr 30, 2019 23:39
[2019-05-01] VITALS (25 sets, daily range): BP systolic 116–186; BP diastolic 54–97; O2SAT 91–96
[2019-05-01] MEDS: MEROPENEM INJ 1 GM in IV 1 EA IV SCH ×2 (01:20→09:45)
[2019-05-01] MEDS: PROPOFOL 1,000 MG in IV 1 EA IV SCH ×2 (01:48→04:46)
[2019-05-01] MEDS: MIDAZOLAM INJ 2 MG/2 ML VIAL (J2250) IV PRN (03:56)
[2019-05-01 05:01] LABS: HEMATOCRIT 33.6 % (36.0-47.0); HEMOGLOBIN 9.7 g/dl (12.0-15.5); MEAN CORPUSCULAR HEMOGLOBIN 25.1 pg (27.0-33.0); MEAN CORPUSCULAR HGB CONC 28.9 g/dl (32.0-36.5); PLATELET COUNT, AUTOMATED 414 10^3/uL (150-450); RED BLOOD COUNT 3.86 10^6/uL (4.00-5.40)
[2019-05-01 05:22] LABS: ALBUMIN 2.9 GM/DL (3.2-5.2); ALT/SGPT 37 U/L (12-78); BILIRUBIN,TOTAL 0.3 MG/DL (0.2-1.0); BLOOD UREA NITROGEN 12 MG/DL (7-18); CALCIUM LEVEL 8.5 MG/DL (8.8-10.2); CARBON DIOXIDE LEVEL 40 MEQ/L (21-32); CHLORIDE LEVEL 95 MEQ/L (98-107); CREATININE FOR GFR 0.46 MG/DL (0.55-1.30); GLOMERULAR FILTRATION RATE > 60.0 (>45); GLUCOSE, FASTING 206 MG/DL (70-100); POTASSIUM SERUM 3.3 MEQ/L (3.5-5.1); SODIUM LEVEL 139 MEQ/L (136-145); TOTAL PROTEIN 6.6 GM/DL (6.4-8.2)
[2019-05-01 05:47] LABS: ABG BASE EXCESS 12.8 (-2.0-2.0); ABG HCO3 38.4 MEQ/L (22.0-26.0); ABG O2 SATURATION 95.1 % (95.0-99.0); ABG PARTIAL PRESSURE O2 84.7 mmHg (75.0-100.0); ABG STANDARD HCO3 36.5 MEQ/L (22.0-26.0); ABG TOTAL CO2 40.1 MEQ/L (23.0-31.0); ABG pH (ARTERIAL) 7.462 UNITS (7.350-7.450)
[2019-05-01] MEDS: HumaLOG INSULIN (NovoLOG) PER UNIT SC SCH ×4 (06:08→20:49)
[2019-05-01] MEDS: LEVOTHYROXINE 25MCG TABLET (0.025MG) PO SCH (06:08)
[2019-05-01] MEDS: IPRATROPIUM 0.5MG/ALBUTEROL 2.5MG INH SOL UD 3ML (DUONEB)(J7620) NEB SCH ×4 (07:17→20:38)
[2019-05-01] MEDS: CHLORHEXIDINE GLUCONATE 0.12 % 15ML UDC (PERIDEX ORAL RINSE) MT SCH (08:08)
[2019-05-01] MEDS: methylPREDNISolone INJ 125 MG/2 ML VIAL (J2930) IV SCH ×2 (08:08→15:33)
[2019-05-01] MEDS: VANCOMYCIN HCL 1,000 MG, VIAL MATE ADAPTER 1 EACH in D5W 250 ML IV SCH ×2 (08:08→15:32)
[2019-05-01] MEDS: PANTOPRAZOLE 40MG INJ (PROTONIX) (C9113) IV SCH (08:08)
[2019-05-01] MEDS: ENOXAPARIN 40 MG/0.4 ML SYRINGE (J1650) SC SCH (08:09)
[2019-05-01] MEDS ORDERED: POTASSIUM CHLORIDE 10 MEQ SR TABLET PO ONE (09:45)
[2019-05-01] MEDS: GABAPENTIN 100 MG CAP PO SCH ×3 (09:58→20:49)
[2019-05-01] MEDS: ALPRAZolam 0.25 MG TAB PO SCH ×2 (09:59→20:49)
[2019-05-01] MEDS: ACETAMINOPHEN TAB 650MG DOSE (2X325MG) PO PRN ×2 (10:02→20:52)
--- NOTE | 2019-05-01 10:28 | REP ---
AP PORTABLE CHEST: 05/01/2019. COMPARISON: 04/30/2019 chest x-rays. CLINICAL HISTORY: Respiratory failure. Endotracheal tube is again seen and unchanged as is the nasogastric tube. Lungs are adequately inflated. However, there is more vascular congestion than on yesterday's with more interstitial changes in the bases. Some patchy atelectasis in both lower lung zones. Heart size somewhat greater than yesterday's portable chest. Aorta is mildly tortuous. Mediastinal and hilar contours are unchanged. IMPRESSION: 1. There is increased vascular congestion and perhaps early interstitial edema with some minor basilar fibrotic or atelectatic change superimposed. 2. Heart size slightly larger. No gross effusion or dense consolidation. 3. Nasogastric tube and endotracheal tubes unchanged. Electronically Signed by Ney Ramos MD 05/01/2019 11:02 A
--- NOTE | 2019-05-01 10:43 | CCN ---
DATE OF SERVICE: 05/01/2019 Kyler Amaya attended [facility] Zavala this morning. Overnight the patient had no arrhythmias, some hypertension. Antihypertensives were held as she had a relatively lower blood pressure than usual being on mechanical ventilation and sedation. She is awake. She passed her spontaneous breathing trial this morning with a RSBI of 90. She was awake, shaking her head yes or no, writing on a tablet. Extubation trial was performed this morning and currently is tolerating extubation. The only thing that she is complaining of this morning is a headache. She has a good productive cough of clear mucus. Urine was slightly cloudy overnight. No chest discomfort. PHYSICAL EXAMINATION: Temperature 97.4, pulse is 86, respiratory rate is 21, blood pressure is 123/56, mean arterial pressure 78, oxygen saturation 93% on 0.35 FiO2. The patient is net positive 2 liters overnight. Lasix was held. GENERAL: Awake, alert and oriented. Affect and mood are appropriate. Nutrition and hygiene good. HEENT: Sclera clear and anicteric. Pupils equal and reactive to light. She does have some steroid facies. Some eyelid swelling. NECK: No discernible elevated jugular venous pressure (JVP). LYMPH: No cervical, supraclavicular or axillary adenopathy. CARDIAC: Regular S1-S2 without audible murmur, rub or gallop. JVP was difficult to assess. PULMONARY: Decreased breath sounds throughout without rales, rhonchi or wheezes. There is prolongation of the expiratory phase. ABDOMEN: Soft, nontender, nondistended. No hepatosplenomegaly, masses or hernia. EXTREMITIES: No cyanosis, clubbing or edema. SKIN: Pale without rash, jaundice or bruising. MUSCULOSKELETAL: No significant muscle injury. No evidence of effusion. NEUROLOGIC: No unilateral weakness, myoclonus or tremor. Laboratory evaluation shows that the white blood cell count went from 26.3 to 13.0, hemoglobin 9.7 and platelet count of 414. Arterial blood gas shows a pH of 7.46, pCO2 of 55, PaO2 of 84. Sodium is 139, potassium 3.3, chloride is 95, bicarb 40, BUN of 12, creatinine 0.46, glucose of 206. Respiratory viral panel is negative. Blood cultures are negative times two. Chest x-ray this morning shows no evidence of infiltrate. Endotracheal tube slightly deep. IMPRESSION: 1. Respiratory failure from what appears to be COPD exacerbation. Will continue antibiotics as the patient did present with a lactic acidosis, which may have been from the work of breathing. Consider de-escalation tomorrow. Will continue Solu-Medrol. The patient is chronically on steroids at home. The patient has acute on chronic respiratory failure. BiPAP orders have been written at her usual settings. Will monitor for decompensation. 2. Hypertension. I have added back her bisoprolol today. 3. Chronic pain. I have added back gabapentin and hydrocodone at lower doses than usual due to her recent respiratory compromise. This may need to be titrated. 4. Chronic anxiety. Again added back alprazolam at a lower dose than usual. Again, will need to monitor for sedation and anxiety control. 5. Diabetes. Currently on lispro sliding scale. When she starts eating will likely need to add back better hypoglycemics. 6. Deep vein thrombosis (DVT) prophylaxis with Lovenox. 7. Gastrointestinal (GI) prophylaxis with Protonix. 8. History of hypothyroidism on Synthroid. The patient will be transferred to the hospitalist service. Please call with any questions or concerns.
[2019-05-01] MEDS: NORCO, ANEXSIA 5/325MG TABLET (HYDROcodone/ACETAMINOPHEN) PO PRN (16:37)
[2019-05-01] MEDS: FUROSEMIDE 40 MG TAB PO SCH (17:51)
[2019-05-01] MEDS: FLUoxetine 10 MG CAP PO SCH (17:51)
[2019-05-01] MEDS: cefTRIAXone SOD 1 GM in D5W MINI-BAG PLUS 50 ML IV SCH (17:52)
[2019-05-01] MEDS ORDERED: ALBUTEROL SULFATE 2.5 MG/0.5 ML INH NEB SOLN NEB PRN (18:30)
--- NOTE | 2019-05-01 19:18 | IPNPDOC ---
Subjective Date Seen The patient was seen on 05/01/19. Subjective Chief Complaint/HPI Says breathing iis much better now. does not know what precipitated the attack but her breathing had been bad for a week then it got critical. No fever or chills home , no abdominal pain , nausea Objective Physical Examination General Exam: Positive: Alert, Cooperative, No Acute Distress Eye Exam: Positive: PERRLA, Conjunctiva & lids normal, EOMI; Negative: Sclera icteric ENT Exam: Positive: Atraumatic, Mucous membr. moist/pink, Pharynx Normal Neck Exam: Positive: Supple; Negative: JVD, thyromegaly Chest Exam: Positive: Rhonchi, Wheezing, Diminished Heart Exam: Positive: Rate Normal, Regular Rhythm, Normal S1, Normal S2; Negative: Murmurs, Rubs Telemetry: Positive: No significant arrhythmia Abdomen Exam: Positive: Normal bowel sounds, Soft; Negative: Tenderness, Hepatospenomegaly Extremity Exam: Positive: Edema (trace edema) Skin Exam: Positive: Nl turgor and temperature; Negative: Rash, Breakdown Neuro Exam: Positive: Normal Speech, Strength at 5/5 X4 ext, Normal Tone Assessment /Plan Assessment 63 year old female with PMH of Chronic respiratory failure with hypoxia and hypercarbia, GOLD stage 4 COPD, SUYAPA on BIPAP 04/29 with 2 liters bleed in, Chronic Diastolic CHF, Major depressive disorder, Claustrophobia, Bipolar, anxiety disorder, adjustment disorder, History of Cannabis use disorder. Nonobstructive Coronary artery disease with history of NSTEMI 2012 , Degenerative disc disease with chronic musculoskeletal pain and muscle spasm. Chronic low back pain on narcotics, Sacroiliac joint pain and myofascial pain, Fibromyalgia, Osteoarthritis, Gastroesophageal reflux disease (GERD). Hypertension, Hyperlipidemia, Diabetes, Obesity, Hypothyroidism., Adrenal nodule on the right, seems to be adrenal adenoma, Lung nodule Follow s with Dr Patterson has been sick with increased respiratory issues Cough, SOb, phlegm for the past week. She called in to the office [address] Patterson gave her a course of tapering prednisone and she finished the 3 days of 40 mg and was going to start the 30 mg. She has been using her BIPAP machine round the clock for the past week with breaks for bathroom and meals. But on night of 04/29 in was in bed with her machine on when she suddenly could not breathe took off the machine and called EMS . As per EMS she could not say only 1 or 2 words. Tracee says she just remembers saying cant breathe to [facility] and then she cant remember any thing till she woke up in ICU. In the ED she was found to have acute on chronic hypercarbic and hypoxic respiratory failure and was urgently intubated and admitted to ICU . Her WBC was very elevated and her lactate was also elevated so she was empirically started on Meropenem and vancomycin. She was successfully extubated this am on 05/01/19. Her procalcitonin came back very low so her antibiotics were deescalated to ceftriaxone and azithromycin. Acute on chronic respiratory failure with hypercarbia and hypoxia Due to COPD exacerbation s/p intubation and successful extubation on 05/01/19 restarted patient on her home BIPAP settings continue duonebs, advair, albuterol prn, spiriva and solumedrol. will continue with ceftriaxone and azithromycin for coverage for respiratory infection. Procalcitonin low so antibiotics deescalated. Will get ABG tomorrow am. monitor for decompensation. Lacticacidosis not due to sepsis but due to severe difficulty in breathing. Chronic Diastolic CHF will restart lasix at home dosage. If in the morning ABG CO2 rises or bicarb rises will cut down on the lasix SUYAPA on BIPAP 04/29 with 2 liter oxygen bleed in. Major depressive disorder restart paroxetine at lower dosage Claustrophobia, Bipolar, anxiety disorder, adjustment disorder restarted alprazolam at lower dosage. Nonobstructive Coronary artery disease with history of NSTEMI 2012 No issues at present ASA, statin and bisoprolol. Degenerative disc disease with chronic musculoskeletal pain and muscle spasm/ Chronic low back pain on narcotics/ Sacroiliac joint pain and myofascial pain/ Fibromyalgia/ Osteoarthritis norco started at lower dosage. gabapentin at a lower dose. Gastroesophageal reflux disease (GERD). continue PPI Hypertension. restarted bisoprolol Hyperlipidemia on statin Diabetes restart januvia continue lispro as per sliding scle, FS AC and HS. Hypothyroidism. continue synthroid. Plan/VTE VTE Prophylaxis Ordered?: Yes VS, I&O, 24H, Fishbone Vital Signs/I&O Vital Signs Date Time Temp Pulse Resp B/P (MAP) Pulse Ox O2 Delivery O2 Flow Rate FiO2 05/01/19 18:00 80 20 153/70 (97) 90 Nasal Cannula 4.0 05/01/19 16:00 98.6 05/01/19 09:00 30 I&O- Last 24 Hours up to 6 AM 05/01/19 06:00 Intake Total 1598 ml Output Total 1155 ml Balance 443 ml Laboratory Data 24H LABS Laboratory Tests 2 04/30/19 22:46: Vancomycin Level Trough 13.3 04/30/19 23:46: Bedside Glucose (Misc Panel) 180H 05/01/19 04:35: Nucleated Red Blood Cells % (auto) 0.0, Anion Gap 4L, Glomerular Filtration Rate > 60.0, Calcium Level 8.5L, Total Bilirubin 0.3, Aspartate Amino Transf (AST/SGOT) 14, Alanine Aminotransferase (ALT/SGPT) 37, Alkaline Phosphatase 95, Total Protein 6.6, Albumin 2.9L, Albumin/Globulin Ratio 0.78L 05/01/19 05:20: Blood Gas Bicarbonate Standard 36.5H, Arterial Blood pH 7.462H, Arterial Blood Partial Pressure CO2 55.0H, Arterial Blood Partial Pressure O2 84.7, Arterial Blood Total CO2 40.1H, Arterial Blood HCO3 38.4H, Arterial Blood Base Excess 12.8H, Arterial Blood Oxygen Saturation 95.1 05/01/19 06:04: Bedside Glucose (Misc Panel) 203H 05/01/19 12:47: Bedside Glucose (Misc Panel) 225H 05/01/19 14:44: Vancomycin Level Trough 13.2 05/01/19 17:54: Bedside Glucose (Misc Panel) 232H CBC/BMP Laboratory Tests 05/01/19 04:35 Microbiology Microbiology 04/30/19 Respiratory Virus Panel (PCR) ([facility]) - Final, Complete 04/30/19 Blood Culture - Preliminary, Resulted No growth after 24 hours . All specim... 04/30/19 Blood Culture - Preliminary, Resulted No growth after 24 hours . All specim... OLIVIA PORTER MD May 01, 2019 19:18
[2019-05-01] MEDS: ADVAIR HFA 230/21MCG INHALER INH SCH (20:41)
[2019-05-01] MEDS: ATORVASTATIN 20 MG TAB PO SCH (20:49)
[2019-05-01] MEDS: AZITHROMYCIN 250 MG TAB PO SCH (20:49)
[2019-05-02] VITALS (20 sets, daily range): BP systolic 131–162; BP diastolic 64–78; O2SAT 87–97
[2019-05-02] MEDS: methylPREDNISolone INJ 125 MG/2 ML VIAL (J2930) IV SCH ×2 (00:27→08:41)
[2019-05-02] MEDS: LEVOTHYROXINE 25MCG TABLET (0.025MG) PO SCH (05:38)
[2019-05-02] MEDS: NORCO, ANEXSIA 5/325MG TABLET (HYDROcodone/ACETAMINOPHEN) PO PRN ×2 (05:39→17:47)
[2019-05-02 05:47] LABS: HEMATOCRIT 35.2 % (36.0-47.0); HEMOGLOBIN 10.2 g/dl (12.0-15.5); MEAN CORPUSCULAR HEMOGLOBIN 25.1 pg (27.0-33.0); MEAN CORPUSCULAR VOLUME 86.7 fl (80.0-96.0); PLATELET COUNT, AUTOMATED 434 10^3/uL (150-450); RED BLOOD COUNT 4.06 10^6/uL (4.00-5.40); WHITE BLOOD COUNT 12.2 10^3/uL (4.0-10.0)
[2019-05-02 06:01] LABS: ABG BASE EXCESS 14.8 (-2.0-2.0); ABG HCO3 40.6 MEQ/L (22.0-26.0); ABG PARTIAL PRESSURE CO2 56.4 mmHg (35.0-45.0); ABG PARTIAL PRESSURE O2 63.1 mmHg (75.0-100.0); ABG STANDARD HCO3 38.5 MEQ/L (22.0-26.0); ABG TOTAL CO2 42.3 MEQ/L (23.0-31.0); ABG pH (ARTERIAL) 7.475 UNITS (7.350-7.450)
[2019-05-02 06:04] LABS: ALBUMIN 2.9 GM/DL (3.2-5.2); ALT/SGPT 30 U/L (12-78); BILIRUBIN,TOTAL 0.7 MG/DL (0.2-1.0); BLOOD UREA NITROGEN 18 MG/DL (7-18); CALCIUM LEVEL 8.7 MG/DL (8.8-10.2); CARBON DIOXIDE LEVEL 41 MEQ/L (21-32); CHLORIDE LEVEL 94 MEQ/L (98-107); CREATININE FOR GFR 0.47 MG/DL (0.55-1.30); GLOMERULAR FILTRATION RATE > 60.0 (>45); GLUCOSE, FASTING 250 MG/DL (70-100); POTASSIUM SERUM 3.5 MEQ/L (3.5-5.1); SODIUM LEVEL 138 MEQ/L (136-145); TOTAL PROTEIN 6.3 GM/DL (6.4-8.2)
[2019-05-02] MEDS: TIOTROPIUM INHALER/CAPSULE (SPIRIVA) INH SCH (07:24)
[2019-05-02] MEDS: ADVAIR HFA 230/21MCG INHALER INH SCH ×2 (07:25→20:35)
[2019-05-02] MEDS: IPRATROPIUM 0.5MG/ALBUTEROL 2.5MG INH SOL UD 3ML (DUONEB)(J7620) NEB SCH ×4 (07:25→20:00)
[2019-05-02] MEDS: HumaLOG INSULIN (NovoLOG) PER UNIT SC SCH ×4 (08:41→21:00)
[2019-05-02] MEDS: FLUoxetine 10 MG CAP PO SCH (08:41)
[2019-05-02] MEDS: PANTOPRAZOLE 40MG INJ (PROTONIX) (C9113) IV SCH (08:41)
[2019-05-02] MEDS: SITagliptin 50 MG TAB (JANUVIA) PO SCH (08:41)
[2019-05-02] MEDS: ENOXAPARIN 40 MG/0.4 ML SYRINGE (J1650) SC SCH (08:42)
[2019-05-02] MEDS: FUROSEMIDE 40 MG TAB PO SCH ×2 (08:42→16:18)
[2019-05-02] MEDS: ASPIRIN 81 MG ENTERIC TAB PO SCH (08:42)
[2019-05-02] MEDS: GABAPENTIN 100 MG CAP PO SCH ×3 (08:42→20:45)
[2019-05-02] MEDS: ALPRAZolam 0.25 MG TAB PO SCH ×2 (08:42→20:45)
[2019-05-02] MEDS ORDERED: FLUoxetine 20 MG CAP PO SCH (09:00)
--- NOTE | 2019-05-02 10:19 | IPNPDOC ---
Subjective Date Seen The patient was seen on 05/02/19. Subjective Chief Complaint/HPI Patient says that her breathing in OK. BUt she is anxious as she is oxygenating only at 89% with 4 litrs . She says that she feels she has chest tightness and breathing difficulty when her oxygen is below 90%. At this point she denies any SOB , chest tightness or difficulty in breathing. Her legs show trace swelling. No fever or chills. Objective Physical Examination General Exam: Positive: Alert, Cooperative, No Acute Distress Eye Exam: Positive: PERRLA, Conjunctiva & lids normal, EOMI; Negative: Sclera icteric ENT Exam: Positive: Atraumatic, Mucous membr. moist/pink, Pharynx Normal Neck Exam: Positive: Supple; Negative: JVD, thyromegaly Chest Exam: Positive: Rhonchi, Wheezing, Diminished Heart Exam: Positive: Rate Normal, Regular Rhythm, Normal S1, Normal S2; Negative: Murmurs, Rubs Telemetry: Positive: No significant arrhythmia Abdomen Exam: Positive: Normal bowel sounds, Soft; Negative: Tenderness, Hepatospenomegaly Extremity Exam: Positive: Edema (trace edema) Skin Exam: Positive: Nl turgor and temperature; Negative: Rash, Breakdown Neuro Exam: Positive: Normal Speech, Strength at 5/5 X4 ext, Normal Tone Assessment /Plan Assessment 63 year old female with PMH of Chronic respiratory failure with hypoxia and hy percarbia, GOLD stage 4 COPD, SUYAPA on BIPAP 04/29 with 2 liters bleed in, Chronic Diastolic CHF, Major depressive disorder, Claustrophobia, Bipolar, anxiety disorder, adjustment disorder, History of Cannabis use disorder. Nonobstructive Coronary artery disease with history of NSTEMI 2012 , Degenerat william disc disease with chronic musculoskeletal pain and muscle spasm. Chronic low back pain on narcotics, Sacroiliac joint pain and myofascial pain, Fibromyalgia, Osteoarthritis, Gastroesophageal reflux disease (GERD). Hypertension, Hyperlipidemia, Diabetes, Obesity, Hypothyroidism., Adrenal nodule on the right, seems to be adrenal adenoma, Lung nodule Follow s with Dr Patterson has been sick with increased respiratory issues Cough, SOb, phlegm for the past week. She called in to the office [address] Patterson gave her a course of tapering prednisone and she finished the 3 days of 40 mg and was going to start the 30 mg. She has been using her BIPAP machine round the clock for the past wee k with breaks for bathroom and meals. But on night of 04/29 in was in bed with her machine on when she suddenly could not breathe took off the machine and called EMS . As per EMS she could not say only 1 or 2 words. Tracee says she just remembers saying cant breathe to [facility] and then she cant remember any thing till she woke up in ICU. In the ED she was found to have acute on chronic hypercarbic and hypoxic respiratory failure and was urgently intubated and admitted to ICU . Her WBC was very elevated and her lactate was also elevated so she was empirically started on Meropenem and vancomycin. She was successfully extubated this am on 05/01/19. Her procalcitonin came back very low so her ant ibiotics were deescalated to ceftriaxone and azithromycin. Acute on chronic respiratory failure with hypercarbia and hypoxia Due to COPD exacerbation s/p intubation and successful extubation on 05/01/19 restarted patient on her home BIPAP settings however needing more oxygen continue duonebs, advair, albuterol prn, spiriva and solumedrol. will continue with ceftriaxone and azithromycin for coverage for respiratory infection. Procalcitonin low so antibiotics deescalated. Will get ABG tomorrow am. today's ABG is at baseline monitor for decompensation. Lacticacidosis not due to sepsis but due to severe difficulty in breathing. Chronic Diastolic CHF will restart lasix at home dosage. will monitor daily morning ABG . If CO2 rises or bicarb rises and there is no acidosis in ABG acetazolamide can be considered for diuresis with lower dose of lasix. SUYAPA on BIPAP 04/29 with 2 liter oxygen bleed in. Major depressive disorder restart paroxetine at lower dosage Claustrophobia, Bipolar, anxiety disorder, adjustment disorder restarted alprazolam at lower dosage. Nonobstructive Coronary artery disease with history of NSTEMI 2012 No issues at present ASA, statin and bisoprolol. Degenerative disc disease with chronic musculoskeletal pain and muscle spasm/ Chronic low back pain on narcotics/ Sacroiliac joint pain and myofascial pain/ Fibromyalgia/ Osteoarthritis norco started at lower dosage. gabapentin at a lower dose. Gastroesophageal reflux disease (GERD). continue PPI Hypertension. restarted bisoprolol Hyperlipidemia on statin Diabetes restart januvia continue lispro as per sliding scle, FS AC and HS. Hypothyroidism. continue synthroid. Plan/VTE VTE Prophylaxis Ordered?: Yes VS, I&O, 24H, Fishbone Vital Signs/I&O Vital Signs Date Time Temp Pulse Resp B/P (MAP) Pulse Ox O2 Delivery O2 Flow Rate FiO2 05/02/19 07:30 97.9 68 20 162/78 (106) 92 Nasal Cannula 4.0 05/01/19 09:00 30 I&O- Last 24 Hours up to 6 AM 05/02/19 06:00 Intake Total 1621 ml Output Total 1851 ml Balance -230 ml Laboratory Data 24H LABS Laboratory Tests 2 05/01/19 12:47: Bedside Glucose (Misc Panel) 225H 05/01/19 14:44: Vancomycin Level Trough 13.2 05/01/19 17:54: Bedside Glucose (Misc Panel) 232H 05/01/19 20:02: Bedside Glucose (Misc Panel) 313H 05/02/19 05:00: Nucleated Red Blood Cells % (auto) 0.0, Anion Gap 3L, Glomerular Filtration Rate > 60.0, Calcium Level 8.7L, Total Bilirubin 0.7#, Aspartate Amino Transf (AST/SGOT) 10, Alanine Aminotransferase (ALT/SGPT) 30, Alkaline Phosphatase 85, Total Protein 6.3L, Albumin 2.9L, Albumin/Globulin Ratio 0.85L 05/02/19 05:56: Blood Gas Bicarbonate Standard 38.5H, Arterial Blood pH 7.475H, Arterial Blood Partial Pressure CO2 56.4H, Arterial Blood Partial Pressure O2 63.1L, Arterial Blood Total CO2 42.3H, Arterial Blood HCO3 40.6H, Arterial Blood Base Excess 14.8H, Arterial Blood Oxygen Saturation 91.0L CBC/BMP Laboratory Tests 05/02/19 05:00 Microbiology Microbiology 04/30/19 Respiratory Virus Panel (PCR) ([facility]) - Final, Complete 04/30/19 Blood Culture - Preliminary, Resulted No Growth after 48 hours. All Specime... 04/30/19 Blood Culture - Preliminary, Resulted No Growth after 48 hours. All Specime... OLIVIA PORTER MD May 02, 2019 10:19
[2019-05-02] MEDS: predniSONE 20 MG TAB PO SCH (10:31)
[2019-05-02] MEDS: BISOPROLOL FUM 2.5 MG PER 1/2TAB PO SCH (10:35)
--- NOTE | 2019-05-02 11:23 | CCN ---
DATE: 05/02/2019 Ms. Zavala is seen in progressive care unit (PCU). She was successfully extubated yesterday. She reports that she is doing well today. She denies any fevers or chills. She states her breathing is better. She is continuing with Zithromax and ceftriaxone for chronic obstructive pulmonary disease (COPD) exacerbation. She is also on Solu-Medrol. She is on chronic prednisone therapy at home. She is on chronic supplemental oxygen as well and currently is saturating at 92% on 4 liters by nasal cannula. PHYSICAL EXAMINATION: Vitals: Temperature 97.9, pulse 68, respiratory rate 20, blood pressure is 162/78, pulse ox 92% on 4 liters by nasal cannula. General: The patient is alert and oriented times three. She speaks in complete sentences. HEENT: Head is normocephalic, atraumatic. Moist mucous membranes. Neck: Neck is supple. No cervical lymphadenopathy. No jugular venous distention (JVD). Pulmonary: Clear to auscultation bilaterally. No wheezes, rales, rhonchi or crackles. Heart: Regular rate and rhythm. S1, S2. No murmurs. Abdomen: Positive bowel sounds, soft, nontender. No rebound or guarding. Extremities: No clubbing, cyanosis or edema. Skin: Skin is warm and dry. LABORATORY DATA: WBC 12.2, hemoglobin 10.2, hematocrit 35.2, platelets 434. Sodium 138, potassium 3.5, chloride 94, carbon dioxide 41, BUN 18, creatinine 0.47, glucose 250, calcium 8.7, total bilirubin 0.7, AST 10, ALT 30, alkaline phosphatase 85, total protein 6.3, albumin 2.9. ABG pH 7.475, pCO2 56.4, pO2 63.1. ASSESSMENT/PLAN: 1. Chronic obstructive pulmonary disease (COPD) exacerbation. The patient was successfully extubated yesterday for respiratory failure secondary to COPD exacerbation. She is currently being treated with Zithromax and ceftriaxone, we will continue this. We will de-escalate her steroids from IV Solu-Medrol and switch her to oral prednisone 40 mg daily for now. Plans will be for eventual taper of the prednisone. She is on chronic prednisone therapy at home with five 5 mg daily. She has BiPap orders for her usual settings. Continue Advair and Spiriva.
[2019-05-02] MEDS ORDERED: SLF 3 ML SYR IV PRN (15:00)
--- NOTE | 2019-05-02 16:39 | ECGEPIP ---
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
[2019-05-02] MEDS: cefTRIAXone SOD 1 GM in D5W MINI-BAG PLUS 50 ML IV SCH (17:48)
[2019-05-02] MEDS ORDERED: HumaLOG INSULIN (NovoLOG) PER UNIT SC ONE (20:30)
[2019-05-02] MEDS: AZITHROMYCIN 250 MG TAB PO SCH (20:45)
[2019-05-02] MEDS: SLF 3 ML SYR IV SCH (20:45)
[2019-05-02] MEDS: ATORVASTATIN 20 MG TAB PO SCH (20:45)
[2019-05-02 22:05] LABS: BLOOD UREA NITROGEN 21 MG/DL (7-18); CALCIUM LEVEL 7.9 MG/DL (8.8-10.2); CARBON DIOXIDE LEVEL 42 MEQ/L (21-32); CHLORIDE LEVEL 94 MEQ/L (98-107); CREATININE FOR GFR 0.73 MG/DL (0.55-1.30); GLOMERULAR FILTRATION RATE > 60.0 (>45); GLUCOSE, FASTING 295 MG/DL (70-100); POTASSIUM SERUM 3.6 MEQ/L (3.5-5.1); SODIUM LEVEL 141 MEQ/L (136-145)
[2019-05-03] VITALS (10 sets, daily range): BP systolic 125–142; BP diastolic 67–87; O2SAT 87–96
[2019-05-03 05:11] LABS: HEMATOCRIT 33.7 % (36.0-47.0); HEMOGLOBIN 9.6 g/dl (12.0-15.5); MEAN CORPUSCULAR HEMOGLOBIN 24.9 pg (27.0-33.0); MEAN CORPUSCULAR HGB CONC 28.5 g/dl (32.0-36.5); MEAN CORPUSCULAR VOLUME 87.3 fl (80.0-96.0); PLATELET COUNT, AUTOMATED 418 10^3/uL (150-450); RED BLOOD COUNT 3.86 10^6/uL (4.00-5.40)
[2019-05-03] MEDS: LEVOTHYROXINE 25MCG TABLET (0.025MG) PO SCH (05:26)
[2019-05-03] MEDS: SLF 3 ML SYR IV SCH ×3 (05:26→20:28)
[2019-05-03 05:31] LABS: ALBUMIN 2.7 GM/DL (3.2-5.2); ALT/SGPT 24 U/L (12-78); BILIRUBIN,TOTAL 0.3 MG/DL (0.2-1.0); BLOOD UREA NITROGEN 20 MG/DL (7-18); CALCIUM LEVEL 7.9 MG/DL (8.8-10.2); CARBON DIOXIDE LEVEL 43 MEQ/L (21-32); CHLORIDE LEVEL 95 MEQ/L (98-107); CREATININE FOR GFR 0.45 MG/DL (0.55-1.30); GLOMERULAR FILTRATION RATE > 60.0 (>45); GLUCOSE, FASTING 173 MG/DL (70-100); POTASSIUM SERUM 2.9 MEQ/L (3.5-5.1); SODIUM LEVEL 141 MEQ/L (136-145); TOTAL PROTEIN 6.1 GM/DL (6.4-8.2)
[2019-05-03] MEDS ORDERED: POTASSIUM CHLORIDE 10 MEQ SR TABLET PO ONE ×2 (06:00→08:00)
[2019-05-03 07:02] LABS: MAGNESIUM LEVEL 1.9 MG/DL (1.8-2.4)
[2019-05-03] MEDS: TIOTROPIUM INHALER/CAPSULE (SPIRIVA) INH SCH (07:42)
[2019-05-03] MEDS: IPRATROPIUM 0.5MG/ALBUTEROL 2.5MG INH SOL UD 3ML (DUONEB)(J7620) NEB SCH ×4 (07:42→20:00)
[2019-05-03] MEDS: ADVAIR HFA 230/21MCG INHALER INH SCH ×2 (07:42→20:32)
[2019-05-03] MEDS: BISOPROLOL FUM 2.5 MG PER 1/2TAB PO SCH (07:51)
[2019-05-03] MEDS: SITagliptin 50 MG TAB (JANUVIA) PO SCH (07:51)
[2019-05-03] MEDS: PANTOPRAZOLE 40MG INJ (PROTONIX) (C9113) IV SCH (07:51)
[2019-05-03] MEDS: predniSONE 20 MG TAB PO SCH (07:52)
[2019-05-03] MEDS: ALPRAZolam 0.25 MG TAB PO SCH ×2 (07:52→20:27)
[2019-05-03] MEDS: GABAPENTIN 100 MG CAP PO SCH ×3 (07:52→20:27)
[2019-05-03] MEDS: FUROSEMIDE 40 MG TAB PO SCH ×2 (07:52→17:14)
[2019-05-03] MEDS: FLUoxetine 10 MG CAP PO SCH (07:52)
[2019-05-03] MEDS: ASPIRIN 81 MG ENTERIC TAB PO SCH (07:52)
[2019-05-03] MEDS: HumaLOG INSULIN (NovoLOG) PER UNIT SC SCH ×4 (07:53→20:28)
[2019-05-03] MEDS: ENOXAPARIN 40 MG/0.4 ML SYRINGE (J1650) SC SCH (07:53)
--- NOTE | 2019-05-03 08:30 | REP ---
Portable chest x-ray: Single view. History: Shortness of breath. Comparison chest x-ray: May 01, 2019. Findings: Oxygen delivery tubing and monitoring electrodes overlie the chest. There is minimal bibasilar plate-like atelectasis. No infiltrate is seen. No evidence of pleural effusion or pulmonary edema seen. Mild dextroconvex thoracic scoliotic curve is seen. In the interval since the previous exam, the nasogastric and endotracheal tubes have both been withdrawn. Electronically Signed by Ponce Higgins MD 05/03/2019 08:21 A
[2019-05-03 12:27] LABS: BLOOD UREA NITROGEN 21 MG/DL (7-18); CALCIUM LEVEL 8.1 MG/DL (8.8-10.2); CARBON DIOXIDE LEVEL 39 MEQ/L (21-32); CHLORIDE LEVEL 94 MEQ/L (98-107); CREATININE FOR GFR 0.65 MG/DL (0.55-1.30); GLOMERULAR FILTRATION RATE > 60.0 (>45); GLUCOSE, FASTING 279 MG/DL (70-100); POTASSIUM SERUM 3.9 MEQ/L (3.5-5.1); SODIUM LEVEL 140 MEQ/L (136-145)
[2019-05-03 12:54] LABS: ABG BASE EXCESS 9.4 (-2.0-2.0); ABG HCO3 35.3 MEQ/L (22.0-26.0); ABG O2 SATURATION 93.6 % (95.0-99.0); ABG PARTIAL PRESSURE CO2 54.5 mmHg (35.0-45.0); ABG PARTIAL PRESSURE O2 75.4 mmHg (75.0-100.0); ABG STANDARD HCO3 33.1 MEQ/L (22.0-26.0); ABG pH (ARTERIAL) 7.429 UNITS (7.350-7.450)
--- NOTE | 2019-05-03 14:03 | IPN ---
DATE: 05/03/2019 The patient's breathing is much improved. She is ambulating from bed to the bedside commode with no worsening shortness of breath. She still complains of cough productive of white sputum, very thick and mucusy, afebrile, no chills overnight. Telemetry was unremarkable. The patient is compliant with her continuous positive airway pressure (CPAP) post extubation. PHYSICAL EXAMINATION: VITAL SIGNS: Temperature 97.6, pulse 72, respiratory rate 18, blood pressure 125/73, 96% on 4 liters nasal cannula. GENERAL: Awake, alert, oriented. Answering questions appropriately. No conversational dyspnea or use of respiratory accessory muscles. Able to speak in full sentences without any use of accessory muscles. HEART: S1, S2. Sinus rhythm. ABDOMEN: Obese, soft, nontender, nondistended. EXTREMITIES: No cyanosis or clubbing. The patient has trace edema bilaterally. LABORATORY DATA: White count 13, hemoglobin 9.6, hematocrit 33, platelet count 418. Sodium 140, potassium 3.9, chloride 94, bicarbonate 39, BUN 21, creatinine 0.65, glucose 279. Blood gas showed pH of 7.4, CO2 of 54, O2 of 75. Chest x-ray on 05/03/2019 showed minimal bibasilar plate-like atelectasis, no infiltrates. No evidence of pleural effusion or pulmonary edema. ASSESSMENT AND PLAN: 63-year-old female with a history of obesity, obstructive sleep apnea, chronic obstructive pulmonary disease (COPD), coronary artery disease, non ST elevation myocardial infarction in 2013, fibromyalgia, diabetes, hypertension, lung nodule. Follows with [facility]. Presented to the emergency room with shortness of breath and was found to have acute on chronic hypercarbic hypoxic respiratory failure and was intubated. The patient was transferred to the hospitalist service after extubation on 05/01/2019. IMPRESSION: 1. Acute on chronic respiratory failure with chronic hypercarbia and hypoxia, currently at baseline. The patient was intubated on admission and was extubated on 05/01/2019. She is currently being treated for chronic obstructive pulmonary disease (COPD) exacerbation with some improvement on antibiotics as well. 2. COPD exacerbation. Pulmonary consulted. Currently on oral prednisone 40 mg daily. Appears to be stable with no wheezing on examination. She is still currently on azithromycin and ceftriaxone. 3. History of chronic diastolic heart failure. Appears to be euvolemic on Lasix 40 mg twice a day. 4. Depression. On chronic Prozac. 5. Chronic hypoxic respiratory failure, at baseline oxygen level. May transfer to medical/surgical floor. Physical therapy (PT) prior to discharge. MTDD
[2019-05-03] MEDS: NORCO, ANEXSIA 5/325MG TABLET (HYDROcodone/ACETAMINOPHEN) PO PRN (14:10)
[2019-05-03] MEDS: cefTRIAXone SOD 1 GM in D5W MINI-BAG PLUS 50 ML IV SCH (17:15)
[2019-05-03] MEDS: ATORVASTATIN 20 MG TAB PO SCH (20:27)
[2019-05-03] MEDS: AZITHROMYCIN 250 MG TAB PO SCH (20:27)
[2019-05-04] MEDS: ACETAMINOPHEN TAB 650MG DOSE (2X325MG) PO PRN (05:40)
[2019-05-04] MEDS: SLF 3 ML SYR IV SCH (05:40)
[2019-05-04] MEDS: LEVOTHYROXINE 25MCG TABLET (0.025MG) PO SCH (05:40)
[2019-05-04 06:00] VITALS: BP 114/73
[2019-05-04 06:22] LABS: HEMATOCRIT 33.9 % (36.0-47.0); HEMOGLOBIN 9.6 g/dl (12.0-15.5); MEAN CORPUSCULAR HEMOGLOBIN 24.8 pg (27.0-33.0); MEAN CORPUSCULAR HGB CONC 28.3 g/dl (32.0-36.5); MEAN CORPUSCULAR VOLUME 87.6 fl (80.0-96.0); PLATELET COUNT, AUTOMATED 415 10^3/uL (150-450); RED BLOOD COUNT 3.87 10^6/uL (4.00-5.40); WHITE BLOOD COUNT 11.3 10^3/uL (4.0-10.0)
[2019-05-04 06:52] LABS: ALBUMIN 2.6 GM/DL (3.2-5.2); ALT/SGPT 22 U/L (12-78); BILIRUBIN,TOTAL 0.8 MG/DL (0.2-1.0); BLOOD UREA NITROGEN 19 MG/DL (7-18); CALCIUM LEVEL 8.1 MG/DL (8.8-10.2); CARBON DIOXIDE LEVEL 41 MEQ/L (21-32); CHLORIDE LEVEL 94 MEQ/L (98-107); CREATININE FOR GFR 0.45 MG/DL (0.55-1.30); GLOMERULAR FILTRATION RATE > 60.0 (>45); GLUCOSE, FASTING 148 MG/DL (70-100); POTASSIUM SERUM 3.1 MEQ/L (3.5-5.1); SODIUM LEVEL 139 MEQ/L (136-145); TOTAL PROTEIN 5.7 GM/DL (6.4-8.2)
[2019-05-04] MEDS: TIOTROPIUM INHALER/CAPSULE (SPIRIVA) INH SCH (07:12)
[2019-05-04] MEDS: ADVAIR HFA 230/21MCG INHALER INH SCH (07:14)
[2019-05-04] MEDS: IPRATROPIUM 0.5MG/ALBUTEROL 2.5MG INH SOL UD 3ML (DUONEB)(J7620) NEB SCH ×2 (07:14→11:28)
[2019-05-04] MEDS ORDERED: PRED10TA2 PO (07:58)
[2019-05-04] MEDS ORDERED: DOXY-350 PO (07:58)
[2019-05-04] MEDS: PANTOPRAZOLE 40MG INJ (PROTONIX) (C9113) IV SCH (08:03)
[2019-05-04 08:04] VITALS: BP 121/76
[2019-05-04] MEDS: predniSONE 20 MG TAB PO SCH (08:04)
[2019-05-04] MEDS: ASPIRIN 81 MG ENTERIC TAB PO SCH (08:04)
[2019-05-04] MEDS: BISOPROLOL FUM 2.5 MG PER 1/2TAB PO SCH (08:04)
[2019-05-04] MEDS: ALPRAZolam 0.25 MG TAB PO SCH (08:04)
[2019-05-04] MEDS: GABAPENTIN 100 MG CAP PO SCH (08:04)
[2019-05-04] MEDS: SITagliptin 50 MG TAB (JANUVIA) PO SCH (08:04)
[2019-05-04] MEDS: FLUoxetine 10 MG CAP PO SCH (08:04)
[2019-05-04] MEDS: HumaLOG INSULIN (NovoLOG) PER UNIT SC SCH ×2 (08:05→11:51)
[2019-05-04] MEDS: FUROSEMIDE 40 MG TAB PO SCH (08:05)
[2019-05-04] MEDS: ENOXAPARIN 40 MG/0.4 ML SYRINGE (J1650) SC SCH (08:05)
[2019-05-04 09:00] VITALS: O2SAT 97
[2019-05-04] MEDS ORDERED: POTASSIUM CHLORIDE 10 MEQ SR TABLET PO SCH (09:00)
[2019-05-04] MEDS: NORCO, ANEXSIA 5/325MG TABLET (HYDROcodone/ACETAMINOPHEN) PO PRN (11:51)
--- NOTE | 2019-05-04 13:33 | DSES ---
DATE OF ADMISSION: 04/30/2019 DATE OF DISCHARGE: 05/04/19 CONSULTANTS: Bernard Amaya DO, wireline field operator PRIMARY DISCHARGE DIAGNOSES: 1. Acute chronic obstructive pulmonary disease (COPD) exacerbation. 2. Acute on chronic hypoxic respiratory failure with hypercarbia secondary to COPD exacerbation requiring intubation on 05/01/2019. 3. Lactic acidosis due to respiratory distress. 4. Chronic diastolic heart failure. 5. Obstructive sleep apnea (SUYAPA), on bilateral positive airway pressure (BiPAP) with 2 liters oxygen bleed-in. 6. Major depressive disorder. 7. Claustrophobia. 8. Bipolar disorder. 9. Anxiety adjustment disorder. 10. ST-elevation myocardial infarction (RI) in 2012. 11. Degenerative joint disease. 12. Reflux. 13. Hypertension. 14. Hyperlipidemia. 15. Diabetes. 16. Hypothyroidism. DISCHARGE MEDICATIONS: - prednisone taper - doxycycline 100 mg twice a day for 2 days - Ventolin two puffs inhaled every 4 as needed - Xanax 0.5 twice a day - aspirin 81 daily - Lipitor 80 nightly - bisoprolol 2.5 daily - cetirizine 10 daily - vitamin D3 one cap every 7 days - Farxiga 10 mg daily - vitamin D 50,000 weekly - fluoxetine 20 daily - Lasix 40 twice a day - gabapentin 800 three times a day - [place] one tablet by mouth twice a day - Combivent 3 mL ampule nebulizer four times a day - levothyroxine 25 mcg daily - nystatin topically as needed - potassium 8 mEq twice a day - Januvia 100 daily - Spiriva one inhaled daily HOSPITAL COURSE: This is a 63-year-old female who presented to the emergency room with increasing shortness of breath, cough, and phlegm for 1 week. Was found to have acute on chronic hypoxic and hypercarbic respiratory failure. Was urgently intubated and admitted to intensive care unit (ICU) with lactic acidosis and leukocytosis. Was empirically started on meropenem and vancomycin. Chest x-ray showed no acute infiltrate. Procalcitonin was negative, and she was deescalated to ceftriaxone, azithromycin. The patient did well with breathing trials and was extubated by Dr. Bernard Amaya on 05/01/2019 and transferred to the hospitalist service. The patient was transitioned from intravenous (IV) Solu-Medrol to oral prednisone and did not have any wheezing on examination. She was continued on her antibiotics and passed a home safety evaluation. She was continued on her Lasix 40 twice a day with subsequent low potassiums, which were supplemented. The patient is discharged in stable condition to followup with her wireline field operator, Dr. Pacheco, as well as her primary care physician, within a week of discharge. PHYSICAL EXAMINATION ON DISCHARGE: Temperature 97.6, pulse 67, respiratory rate 18, blood pressure 121/76, 95% on 2 liters nasal cannula. Generally, the patient is awake, alert, oriented to person, place, and time. Has chronic oxygen on. No respiratory distress. Able to speak in full sentences. Lungs are clear to auscultation. Air entry is equal. Heart: S1, S2, sinus rhythm. Abdomen is obese, nontender, nondistended. Positive bowel sounds. Extremities: No clubbing, cyanosis, or any pitting edema. White count 11, hemoglobin 9.3, hematocrit 33, platelet count 415. Sodium 139, potassium 3.1, chloride 94, bicarbonate 41, BUN 19, creatinine 0.45, glucose 148, calcium of 8.1. MICROBIOLOGY: Respiratory panel 04/30/2019: Negative. IMAGING STUDIES: Chest x-ray 04/30/2019: No cardiomegaly. Venous engorgement. No gabriele edema or gross effusion. TIME SPENT ON DISCHARGE: 30 minutes. [facility]
== END 2019-05-04 13:27 | disposition home or self-care (01) | DRG 208 ==
LOC: M ED 00:27 → EDBD 00:27 → M ED INP 03:03 → M ICU 03:59 → M PCU 05-02 03:06 → M MSPAV 05-03 14:05
PROVIDERS: ADMIT Internal Medicine Pulmonary Disease; ATTEND General Practice
PROC: 5A1945Z Respiratory Ventilation, 24-96 Consecutive Hours (ICD-10-PCS; principal; 2019-04-30)
DX: J96.21 Acute and chronic respiratory failure with hypoxia (principal); J44.1 Chronic obstructive pulmonary disease with (acute) exacerbation; E87.2 Acidosis; F13.20 Sedative, hypnotic or anxiolytic dependence, uncomplicated; I82.409 Acute embolism and thrombosis of unspecified deep veins of unspecified lower extremity; I50.32 Chronic diastolic (congestive) heart failure; D35.00 Benign neoplasm of unspecified adrenal gland; D72.829 Elevated white blood cell count, unspecified; E11.40 Type 2 diabetes mellitus with diabetic neuropathy, unspecified; E11.65 Type 2 diabetes mellitus with hyperglycemia; E03.9 Hypothyroidism, unspecified; F41.9 Anxiety disorder, unspecified; F32.9 Major depressive disorder, single episode, unspecified; F43.21 Adjustment disorder with depressed mood; G47.33 Obstructive sleep apnea (adult) (pediatric); G43.909 Migraine, unspecified, not intractable, without status migrainosus; G89.29 Other chronic pain; M54.5 Low back pain; J96.22 Acute and chronic respiratory failure with hypercapnia; I11.0 Hypertensive heart disease with heart failure; I25.10 Atherosclerotic heart disease of native coronary artery without angina pectoris; M79.7 Fibromyalgia; M19.90 Unspecified osteoarthritis, unspecified site; Z90.49 Acquired absence of other specified parts of digestive tract; Z98.51 Tubal ligation status; Z79.82 Long term (current) use of aspirin; Z79.51 Long term (current) use of inhaled steroids; Z79.84 Long term (current) use of oral hypoglycemic drugs; Z79.899 Other long term (current) drug therapy; Z99.81 Dependence on supplemental oxygen; F12.11 Cannabis abuse, in remission; K21.9 Gastro-esophageal reflux disease without esophagitis; E78.5 Hyperlipidemia, unspecified; E66.9 Obesity, unspecified; Z68.30 Body mass index [BMI] 30.0-30.9, adult; R91.1 Solitary pulmonary nodule; F40.240 Claustrophobia

== ENCOUNTER 2019-05-29 02:45 | Inpatient (IN) | payer MEDICARE, MEDICAID ==
[~2019-05-29] VITALS: Ht 165.1 cm; Wt 81.8 kg
[~2019-05-29 02:45] MED LIST changes: +ALPR0.5T3 PO; +VITA1CAP25 PO
[2019-05-29] MEDS ORDERED: IPRATROPIUM 0.5MG/ALBUTEROL 2.5MG INH SOL UD 3ML (DUONEB)(J7620) NEB PRN (03:15)
[2019-05-29 03:17] LABS: BASO % 0.4 % (0.0-1.0); EOS # 0.2 10^3/uL (0.0-0.5); EOS % 1.3 % (0.0-3.0); HEMATOCRIT 39.5 % (36.0-47.0); HEMOGLOBIN 10.9 g/dl (12.0-15.5); LYMPH # 2.4 10^3/uL (1.5-5.0); LYMPH % 21.1 % (24.0-44.0); MEAN CORPUSCULAR HEMOGLOBIN 24.3 pg (27.0-33.0); MEAN CORPUSCULAR HGB CONC 27.6 g/dl (32.0-36.5); MEAN CORPUSCULAR VOLUME 88.2 fl (80.0-96.0); MONO # 1.1 10^3/uL (0.0-0.8); MONO % 9.5 % (0.0-5.0); NEUTROPHILS # 7.6 10^3/uL (1.5-8.5); NEUTROPHILS % 67.1 % (36.0-66.0); PLATELET COUNT, AUTOMATED 404 10^3/uL (150-450); RED BLOOD COUNT 4.48 10^6/uL (4.00-5.40); WHITE BLOOD COUNT 11.3 10^3/uL (4.0-10.0)
[2019-05-29 03:31] LABS: ABG HCO3 40.4 MEQ/L (22.0-26.0); ABG O2 SATURATION 97.6 % (95.0-99.0); ABG PARTIAL PRESSURE O2 149.1 mmHg (75.0-100.0); ABG STANDARD HCO3 34.7 MEQ/L (22.0-26.0); ABG pH (ARTERIAL) 7.285 UNITS (7.350-7.450)
[2019-05-29 03:34] LABS: ABG PARTIAL PRESSURE CO2 86.9 mmHg (35.0-45.0)
[2019-05-29 03:39] LABS: BLOOD UREA NITROGEN 13 MG/DL (7-18); CALCIUM LEVEL 8.6 MG/DL (8.8-10.2); CARBON DIOXIDE LEVEL 40 MEQ/L (21-32); CHLORIDE LEVEL 96 MEQ/L (98-107); CK-MB VALUE MASS 1.4 NG/ML (<3.6); CPK CREATINE PHOSPHOKINASE 53 U/L (26-192); CREATININE FOR GFR 0.47 MG/DL (0.55-1.30); GLOMERULAR FILTRATION RATE > 60.0 (>45); GLUCOSE, FASTING 162 MG/DL (70-100); MB/CK RELATIVE INDEX 2.64 (< OR =4); POTASSIUM SERUM 3.7 MEQ/L (3.5-5.1); SODIUM LEVEL 141 MEQ/L (136-145); TROPONIN I < 0.02 NG/ML (< 0.10)
[2019-05-29] MEDS ORDERED: dexameTHASONE 20 MG/5 ML VIAL (J1100) IV ONE (03:45)
[2019-05-29 03:48] LABS: INFLUENZA A AMPLIFICATION NEGATIVE (NEGATIVE); INFLUENZA B AMPLIFICATION NEGATIVE (NEGATIVE)
[2019-05-29 05:34] LABS: ABG BASE EXCESS 8.5 (-2.0-2.0); ABG HCO3 36.5 MEQ/L (22.0-26.0); ABG O2 SATURATION 97.5 % (95.0-99.0); ABG STANDARD HCO3 32.3 MEQ/L (22.0-26.0); ABG TOTAL CO2 38.7 MEQ/L (23.0-31.0); ABG pH (ARTERIAL) 7.324 UNITS (7.350-7.450)
[2019-05-29 05:37] LABS: ABG PARTIAL PRESSURE CO2 71.8 mmHg (35.0-45.0)
[2019-05-29] MEDS: HumaLOG INSULIN (NovoLOG) PER UNIT SC SCH ×3 (06:00→17:01)
--- NOTE | 2019-05-29 06:06 | ECGEPIP ---
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
[2019-05-29] MEDS ORDERED: methylPREDNISolone INJ 125 MG/2 ML VIAL (J2930) IV ONE (07:30)
[2019-05-29] MEDS ORDERED: GLUCOSE 4 GM CHEW TABLET PO PRN (07:30)
[2019-05-29] MEDS ORDERED: GLUCAGON FOR INJ 1 MG VIAL (J1610) SC PRN (07:30)
[2019-05-29] MEDS ORDERED: DEXTROSE 50% 50 ML SYRINGE IV PRN (07:30)
[2019-05-29] MEDS ORDERED: PROC5TA PO (07:35)
[2019-05-29] MEDS ORDERED: FLON1SPR NARES (07:35)
[2019-05-29] MEDS ORDERED: PRED5TA PO (07:35)
[2019-05-29] MEDS ORDERED: ACET-897 PO (07:35)
[2019-05-29] MEDS ORDERED: PANT40TA3 PO (07:35)
[2019-05-29] MEDS ORDERED: NYSTATIN 100,000 UNITS/GM TOPICAL PWD 15 GM TOP PRN (07:45)
[2019-05-29] MEDS ORDERED: IPRATROPIUM 0.5MG/ALBUTEROL 2.5MG INH SOL UD 3ML (DUONEB)(J7620) INH PRN (07:45)
[2019-05-29] MEDS ORDERED: ACETAMINOPHEN 500 MG TAB PO PRN (07:45)
--- NOTE | 2019-05-29 08:09 | HPEPDOC ---
[facility] Medical History & Physical Date of Admission May 29, 2019 Date of Service: May 29, 2019 Attending Physician: ANGIE MARIE MD History and Physical CHIEF COMPLAINT: SOB HISTORY OF PRESENT ILLNESS: 63 y.o female w/ PMH of COPD, SUYAPA (BiPAP dependent), CAD, [place] (2012), HTN, HLD, DM, GERD, Bipolar & hypothyroidism presents from home with worsening shortness of breath. She was admitted at [facility] 1 month ago for acute hypercapnic respiratory failure secondary to COPD exacerbation, requiring intubation & mechanical ventilation. She has done well since discharge, up until 1 week ago when she started experiencing worsening SOB from her baseline. She usually uses BiPAP at night & during naps but has been using it all day & night for the past week, presented to the ED last night because breathing kept worsening despite increased use of BiPAP & inhalers. She denies any fever, change in cough, sputum production or sweats, she does report chills for the past week. She has no other associated symptoms at this time. She denies any nausea, vomiting, abdominal pain, diarrhea or constipation. 10 point ROS is negative except for above PAST MEDICAL HISTORY: 1. COPD 2. SUYAPA 3. Bipolar 4. CAD 5. TN 6. DM 7. HTN 8. HLD 9. GERD 10. Hypothyroidism PAST SURGICAL HISTORY: 1. Cholecystectomy SOCIAL HISTORY: Current smoker, has been smoking 1+ PPD for >40 years denies alcohol use denies drug use FAMILY HISTORY: Mother w/ lung cancer heart disease in both parents ALLERGIES: Please see below. HOME MEDICATIONS: Please see below. PHYSICAL EXAMINATION: VITAL SIGNS: See below GENERAL APPEARANCE: No distress, on BiPAP HEENT: normocephalic, atraumatic, moist mucous membranes CARDIOVASCULAR: S1, S2, distant LUNGS: poor air movement, severely diminished, no discernible wheezing or rhonchi appreciated ABDOMEN: soft, non-tender, non-distended, +BS EXTREMITIES: ROM intact NEUROLOGICAL: no focal deficits PSYCHIATRIC: calm LABORATORY DATA: See below. IMAGING: CXR w/o acute pathology, appears unchanged from previous CXR. MICROBIOLOGY: Please see below. ASSESSMENT:63 y.o female w/ an extensive past medical history including severe COPD & SUYAPA who was recently admitted & intubated for acute hypercapnic respiratory failure, continues to smoker, presents w/ worsening symptoms & lab findings consistent with acute on chronic hypercapnic respiratory failure. PLAN: 1. Acute on chronic hypercapnic respiratory failure - likely 2/2 COPD exacerbation, slight improvement in ABG after BiPAP, appears comfortable at this time, admit to ICU, continue BiPAP (/ at 30%), no emergent need for endotracheal intubation & mechanical ventilation at this time, duoneb q6h, IV steroids, Cefepime. Respiratory viral panel, Procalcitonin & Blood cultures pending. 2. COPD exacerbation - unknown etiology, working & treatment as stated above. 3. CAD - h/o TN, continue optimal medical management (Aspirin, statin, BB) 4. HFpEF - continue Lasix w/ potassium supplementation. RLE edema >LLE, LE doppler ordered. 5. HTN - continue Bisoprolol 6. HLD - continue statin 7. GERD - PPI 8. Hypothyroidism - continue Levothyroxine 9. DM - hold home meds, sliding scale insulin q6h DVT prophylaxis - Heparin SubQ GI Prophylaxis - home PPI Vital Signs Vital Signs Date Time Temp Pulse Resp B/P (MAP) Pulse Ox O2 Delivery O2 Flow Rate FiO2 05/29/19 06:30 94 28 153/76 (101) 91 NIPPV (BIPAP/CPAP) 05/29/19 05:39 30 05/29/19 05:00 05/29/19 03:00 97.3 Laboratory Data Labs 24H Laboratory Tests 2 05/29/19 03:06: Immature Granulocyte % (Auto) 0.6, Neutrophils (%) (Auto) 67.1H, Lymphocytes (%) (Auto) 21.1L, Monocytes (%) (Auto) 9.5H, Eosinophils (%) (Auto) 1.3, Basophils (%) (Auto) 0.4, Neutrophils # (Auto) 7.6, Lymphocytes # (Auto) 2.4, Monocytes # (Auto) 1.1H, Eosinophils # (Auto) 0.2, Basophils # (Auto) 0.0, Nucleated Red Blood Cells % (auto) 0.0, Blood Gas Bicarbonate Standard 34.7H, Arterial Blood pH 7.285L, Arterial Blood Partial Pressure CO2 86.9*H, Arterial Blood Partial Pressure O2 149.1H, Arterial Blood Total CO2 43.0H, Arterial Blood HCO3 40.4H, Arterial Blood Base Excess 11.0H, Arterial Blood Oxygen Saturation 97.6, Anion Gap 5L, Glomerular Filtration Rate > 60.0, Lactic Acid Level 1.1, Calcium Level 8.6L, Total Creatine Kinase 53, Creatine Kinase MB 1.4, Creatine Kinase MB Relative Index 2.64, Troponin I < 0.02, Influenza Type A (RT-PCR) NEGATIVE, Influenza Type B (RT-PCR) NEGATIVE 05/29/19 05:19: Blood Gas Bicarbonate Standard 32.3H, Arterial Blood pH 7.324L, Arterial Blood Partial Pressure CO2 71.8*H, Arterial Blood Partial Pressure O2 125.0H, Arterial Blood Total CO2 38.7H, Arterial Blood HCO3 36.5H, Arterial Blood Base Excess 8.5H, Arterial Blood Oxygen Saturation 97.5 CBC/BMP Laboratory Tests 05/29/19 03:06 Microbiology Microbiology 05/29/19 Respiratory Virus Panel (PCR) ([facility]), Received Pending 05/29/19 Blood Culture, Received Pending 05/29/19 Blood Culture, Received Pending Home Medications Scheduled Alprazolam (Alprazolam) 0.5 Mg Tablet, 0.5 MG PO BID Aspirin (Aspirin EC) 81 Mg Tabec, 81 MG PO DAILY Atorvastatin Calcium (Lipitor) 80 Mg Tab, 80 MG PO QHS Bisoprolol Fumarate (Bisoprolol Fumarate) 5 Mg Tab, 5 MG PO DAILY Cetirizine HCl (Cetirizine HCl) 10 Mg Tablet, 10 MG PO DAILY Cholecalciferol (Vitamin D3) (Vitamin D3) 50,000 Unit Capsule, 50,000 UNITS PO Q7D FRIDAYS Fluoxetine HCl (Fluoxetine HCl) 20 Mg Tablet, 20 MG PO DAILY Fluticasone Propion/Salmeterol (Advair Hfa 230-21 Mcg Inhaler) 12 Gm Hfa.aer.ad, 2 PUFF INH BID Fluticasone Propionate (Flonase Allergy Relief) 9.9 Ml [place].susp, 2 SPR NARES DAILY Furosemide (Furosemide) 40 Mg Tablet, 40 MG PO BID Gabapentin (Gabapentin) 800 Mg Tab, 800 MG PO TID Levothyroxine Sodium (Levoxyl) 25 Mcg Tab, 25 MCG PO DAILY Pantoprazole Sodium (Pantoprazole Sodium) 40 Mg Tablet.dr, 40 MG PO DAILY Potassium Chloride (Potassium Chloride) 8 Meq Tablet.er, 8 MEQ PO BID Prednisone (Prednisone) 5 Mg Tablet, 5 MG PO DAILY Prochlorperazine (Prochlorperazine Maleate) 5 Mg Tablet, 5 MG PO DAILY Sitagliptin Phosphate (Januvia) 100 Mg Tablet, 100 MG PO DAILY Tiotropium [place] (Spiriva) 18 Mcg Cap.w.dev, 1 INHALATION INH DAILY Scheduled PRN Acetaminophen (Tylenol Extra Strength) 500 Mg Tablet, 1,000 MG PO Q8H PRN for PAIN Albuterol Sulfate (Ventolin Hfa) 108 Mcg/Act Aer, 2 PUFFS INH Q4H PRN for SHORTNESS OF BREATH Hydrocodone/Acetaminophen (Blanket 7.5-325 Tablet) 1 Each Tablet, 1 TAB PO BID PRN for PAIN Ipratropium/Albuterol Sulfate (Iprat-Albut 0.5-3(2.5) mg/3 ml) 3 Ml Ampul.neb, 1 VIAL INH QID PRN for SHORTNESS OF BREATH Nystatin (Nystatin Powder) 15 Gm Powder, 1 DOSE TOP QHS PRN for ITCH/RASH USES UNDER BREASTS Allergies Coded Allergies: Cat Dander (Verified Allergy, Unknown, 03/21/19) Dust (Verified Allergy, Unknown, 03/21/19) A-FIB/CHADSVASC A-FIB History Current/History of A-Fib/PAF?: No ANGIE MARIE MD May 29, 2019 08:09
--- NOTE | 2019-05-29 08:29 | REP ---
Duplex extremity venous ultrasound: Bilateral lower extremities. History: Lower extremity edema right greater than left. Question DVT. Findings: The deep veins are anechoic and fully compressible from the groin to the popliteal fossa in the left and right lower extremity. Color flow imaging is homogeneous. Spectral Doppler interrogation demonstrates intact respiratory variation in flow and normal manual augmentation of flow. There is no evidence of deep vein thrombosis. Impression: Negative bilateral lower extremity duplex venous ultrasound. No evidence of deep vein thrombosis. Electronically Signed by Ponce Higgins MD 05/29/2019 08:21 A
[2019-05-29] MEDS: FLUoxetine 20 MG CAP PO SCH (08:56)
[2019-05-29] MEDS: GABAPENTIN 400 MG CAP PO SCH ×3 (08:56→20:24)
[2019-05-29] MEDS: ASPIRIN 81 MG ENTERIC TAB PO SCH (08:57)
[2019-05-29] MEDS: bisoproloL fumarate 5 MG TAB PO SCH (08:57)
[2019-05-29] MEDS: PANTOPRAZOLE 40MG TAB (PROTONIX) PO SCH (08:57)
[2019-05-29] MEDS: CETIRIZINE (ZyrTEC) 10 MG TAB PO SCH (08:58)
[2019-05-29] MEDS: ALPRAZolam 0.5 MG TAB PO SCH ×2 (08:58→20:24)
[2019-05-29] MEDS: FUROSEMIDE 40 MG TAB PO SCH ×2 (08:58→20:24)
[2019-05-29] MEDS ORDERED: CEFEPIME HCL 2 GM in D5W MINI-BAG PLUS 50 ML IV SCH (09:00)
[2019-05-29] MEDS: PROCHLORPERAZINE 5 MG TAB (S0183) PO SCH (09:00)
[2019-05-29] MEDS ORDERED: CEFEPIME HCL 1 GM in D5W MINI-BAG PLUS 50 ML IV SCH (09:00)
[2019-05-29] MEDS ORDERED: POTASSIUM CHLORIDE 10 MEQ SR TABLET PO SCH (09:00)
--- NOTE | 2019-05-29 09:18 | REP ---
Portable chest x-ray: Single view. History: Dyspnea and cough. Comparison study May 03, 2019. Findings: Monitoring electrodes are seen along with oxygen delivery tubing. The lungs are symmetrically aerated. No infiltrate is seen. The heart is not felt to be enlarged. Pulmonary vasculature appears cephalized. Pleural angles are sharp. Impression: Question vascular cephalization. Otherwise no acute disease. Electronically Signed by Ponce Higgins MD 05/29/2019 09:09 A
[2019-05-29 12:00] VITALS: BP 115/72
[2019-05-29] MEDS: methylPREDNISolone INJ 40 MG/1 ML VIAL (J2920) IV SCH ×2 (12:29→20:23)
[2019-05-29] MEDS: HEPARIN SOD (PORCINE) 5000 UNITS/ML VIAL SQ SCH ×2 (12:30→20:24)
[2019-05-29] MEDS: IPRATROPIUM 0.5MG/ALBUTEROL 2.5MG INH SOL UD 3ML (DUONEB)(J7620) NEB SCH ×2 (14:03→20:31)
[2019-05-29 14:04] VITALS: O2SAT 97
[2019-05-29 16:12] VITALS: BP 101/61
[2019-05-29 16:34] LABS: ABG BASE EXCESS 12.4 (-2.0-2.0); ABG HCO3 38.7 MEQ/L (22.0-26.0); ABG O2 SATURATION 87.5 % (95.0-99.0); ABG PARTIAL PRESSURE CO2 59.9 mmHg (35.0-45.0); ABG STANDARD HCO3 35.9 MEQ/L (22.0-26.0); ABG TOTAL CO2 40.5 MEQ/L (23.0-31.0); ABG pH (ARTERIAL) 7.428 UNITS (7.350-7.450)
[2019-05-29 18:19] VITALS: BP 110/65
[2019-05-29] MEDS: ANEXSIA, NORCO 7.5MG/325MG TABLET(HYDROCODONE/APAP) PO PRN (20:23)
[2019-05-29] MEDS: POTASSIUM CHLORIDE 10 MEQ SR TABLET PO SCH (20:24)
[2019-05-29] MEDS ORDERED: ATORVASTATIN 20 MG TAB PO SCH (21:00)
[2019-05-29] MEDS ORDERED: LIDOCAINE 5% (LIDODERM) PATCH TD SCH (21:00)
[2019-05-29] MEDS ORDERED: HumaLOG INSULIN (NovoLOG) PER UNIT SC SCH (21:00)
[2019-05-29 22:00] VITALS: BP 116/63
[2019-05-29] MEDS ORDERED: IBUPROFEN 600 MG TAB PO ONE (22:00)
[2019-05-30] MEDS: IPRATROPIUM 0.5MG/ALBUTEROL 2.5MG INH SOL UD 3ML (DUONEB)(J7620) NEB SCH ×3 (01:45→13:35)
[2019-05-30] MEDS: methylPREDNISolone INJ 40 MG/1 ML VIAL (J2920) IV SCH ×2 (04:32→11:36)
[2019-05-30] MEDS: ANEXSIA, NORCO 7.5MG/325MG TABLET(HYDROCODONE/APAP) PO PRN (04:33)
[2019-05-30] MEDS: HEPARIN SOD (PORCINE) 5000 UNITS/ML VIAL SQ SCH (05:44)
[2019-05-30 06:00] VITALS: BP 114/58
[2019-05-30] MEDS ORDERED: LEVOTHYROXINE 25MCG TABLET (0.025MG) PO SCH (06:00)
[2019-05-30 06:56] LABS: HEMOGLOBIN 9.3 g/dl (12.0-15.5); MEAN CORPUSCULAR HEMOGLOBIN 24.4 pg (27.0-33.0); MEAN CORPUSCULAR HGB CONC 28.2 g/dl (32.0-36.5); MEAN CORPUSCULAR VOLUME 86.6 fl (80.0-96.0); PLATELET COUNT, AUTOMATED 362 10^3/uL (150-450); RED BLOOD COUNT 3.81 10^6/uL (4.00-5.40); WHITE BLOOD COUNT 9.9 10^3/uL (4.0-10.0)
[2019-05-30 07:17] LABS: ALBUMIN 2.7 GM/DL (3.2-5.2); ALT/SGPT 22 U/L (12-78); BILIRUBIN,TOTAL 0.5 MG/DL (0.2-1.0); BLOOD UREA NITROGEN 17 MG/DL (7-18); CALCIUM LEVEL 8.8 MG/DL (8.8-10.2); CARBON DIOXIDE LEVEL 37 MEQ/L (21-32); CHLORIDE LEVEL 94 MEQ/L (98-107); CREATININE FOR GFR 0.68 MG/DL (0.55-1.30); GLOMERULAR FILTRATION RATE > 60.0 (>45); GLUCOSE, FASTING 246 MG/DL (70-100); MAGNESIUM LEVEL 1.6 MG/DL (1.8-2.4); SODIUM LEVEL 137 MEQ/L (136-145); TOTAL PROTEIN 6.3 GM/DL (6.4-8.2)
[2019-05-30] MEDS: HumaLOG INSULIN (NovoLOG) PER UNIT SC SCH ×2 (07:30→11:36)
[2019-05-30] MEDS: POTASSIUM CHLORIDE 10 MEQ SR TABLET PO SCH (07:59)
[2019-05-30 08:00] VITALS: BP 106/61
[2019-05-30] MEDS: GABAPENTIN 400 MG CAP PO SCH (08:00)
[2019-05-30] MEDS: PANTOPRAZOLE 40MG TAB (PROTONIX) PO SCH (08:00)
[2019-05-30] MEDS: CETIRIZINE (ZyrTEC) 10 MG TAB PO SCH (08:00)
[2019-05-30] MEDS: bisoproloL fumarate 5 MG TAB PO SCH (08:00)
[2019-05-30] MEDS: FUROSEMIDE 40 MG TAB PO SCH (08:00)
[2019-05-30] MEDS: ASPIRIN 81 MG ENTERIC TAB PO SCH (08:00)
[2019-05-30] MEDS: ALPRAZolam 0.5 MG TAB PO SCH (08:00)
[2019-05-30] MEDS: FLUoxetine 20 MG CAP PO SCH (08:00)
[2019-05-30] MEDS: PROCHLORPERAZINE 5 MG TAB (S0183) PO SCH (08:01)
[2019-05-30] MEDS ORDERED: **NOTE PATIENT COMMENT** MISC XX SCH (09:00)
[2019-05-30] MEDS ORDERED: PRED10TA2 PO (11:55)
--- NOTE | 2019-05-30 19:58 | DS.PDOC ---
Discharge Summary General Date of Admission May 29, 2019 at 07:30 Date of Discharge 05/30/19 Attending Physician: ANGIE MARIE MD Discharge Summary PROCEDURES PERFORMED DURING STAY: None ADMITTING DIAGNOSES: 1. Acute on chronic hypercapnic respiratory failure requiring NIV, COPD e xacerbation DISCHARGE DIAGNOSES: 1. Acute on chronic hypercaponic respiratory failure requiring NIV, COPD exacerbation COMPLICATIONS/CHIEF COMPLAINT: Acute Or Chronic Resp Failure With Hypercapnia C ad. HISTORY OF PRESENT ILLNESS: 63 y.o female w/ PMH of COPD (oxygen dependent), chronic respiratory failure, SUYAPA (requiring BiPAP) & CAD was admitted for acute on chronic hypercapnic respiratory failure secondary to COPD exacerbation. She was treated w/ NIV in the ICU, had significant improvement clinically & on ABG after ~12 hours of BiPAP. She was then transitioned to supplemental O2 & BiPAP a t bedtime/during naps. She was downgraded to Medsurg yesterday and clinically at baseline when evaluated in the morning. She is resting comfortably in bed, without any reports of dyspnea, cough or tachypnea; she is currently on 2L O2 via NC which she requires at baseline. She was evaluated and cleared by PT for discharge. She will be discharged on Steroid taper. She is currently clinically and hemodynamically stable for discharge and outpatient follow up w/ Pulmonary & PCP. HOSPITAL COURSE: as above DISCHARGE MEDICATIONS: Please see below. ALLERGIES: Please see below. PHYSICAL EXAMINATION: VITAL SIGNS: See below GENERAL APPEARANCE: No distress HEENT: normocephalic, atraumatic, moist mucous membranes CARDIOVASCULAR: S1, S2, distant LUNGS: poor air movement, diminished, no wheezing or rhonchi appreciated ABDOMEN: soft, non-tender, non-distended, +BS EXTREMITIES: ROM intact NEUROLOGICAL: no focal deficits PSYCHIATRIC: calm LABORATORY DATA: Please see below. IMAGING: CT chest negative for infiltrate PROGNOSIS: guarded ACTIVITY: As tolerated DIET: Cardiac DISCHARGE PLAN: follow up w/ [employer] & PCP in 1-2 weeks DISPOSITION: 01 Home, Self-Care. DISCHARGE INSTRUCTIONS: 1. As above DISCHARGE CONDITION: Stable TIME SPENT ON DISCHARGE: Greater than 36 minutes. Vital Signs/I&Os Vital Signs Date Time Temp Pulse Resp B/P (MAP) Pulse Ox O2 Delivery O2 Flow Rate FiO2 05/30/19 08:00 90 106/61 05/30/19 07:49 2.0 05/30/19 06:00 97.6 20 91 NIPPV (BIPAP/CPAP) 05/29/19 16:12 30 I&O- Last 24 Hours up to 6 AM 05/30/19 06:00 Intake Total 770 ml Output Total 450 ml Balance 320 ml Laboratory Data Labs 24H Laboratory Tests 2 05/29/19 20:32: Bedside Glucose (Misc Panel) 288H 05/30/19 06:39: Nucleated Red Blood Cells % (auto) 0.0, Anion Gap 6L, Glomerular Filtration Rate > 60.0, Calcium Level 8.8, Magnesium Level 1.6L, Total Bilirubin 0.5, Aspartate Amino Transf (AST/SGOT) 13, Alanine Aminotransferase (ALT/SGPT) 22, Alkaline Phosphatase 106, Total Protein 6.3L, Albumin 2.7L, Albumin/Globulin Ratio 0.75L 05/30/19 11:30: Bedside Glucose (Misc Panel) 296H CBC/BMP Laboratory Tests 05/30/19 06:39 FSBS Laboratory Tests Test 05/29/19 20:32 05/30/19 11:30 Range/Units Bedside Glucose (Misc Panel) 288 296 80-115 MG/DL Microbiology Microbiology 05/29/19 Respiratory Virus Panel (PCR) (TERRANCE) - Final, Complete 05/29/19 Blood Culture - Preliminary, Resulted No growth after 24 hours . All specim... 05/29/19 Blood Culture - Preliminary, Resulted No growth after 24 hours . All specim... Discharge Medications Scheduled Alprazolam (Alprazolam) 0.5 Mg Tablet, 0.5 MG PO BID, (Reported) Aspirin (Aspirin EC) 81 Mg Tabec, 81 MG PO DAILY, (Reported) Atorvastatin Calcium (Lipitor) 80 Mg Tab, 80 MG PO QHS, (Reported) Bisoprolol Fumarate (Bisoprolol Fumarate) 5 Mg Tab, 5 MG PO DAILY, (Reported) Cetirizine HCl (Cetirizine HCl) 10 Mg Tablet, 10 MG PO DAILY, (Reported) Cholecalciferol (Vitamin D3) (Vitamin D3) 50,000 Unit Capsule, 50,000 UNITS PO Q7D, (Reported) FRIDAYS Fluoxetine HCl (Fluoxetine HCl) 20 Mg Tablet, 20 MG PO DAILY, (Reported) Fluticasone Propion/Salmeterol (Advair Hfa 230-21 Mcg Inhaler) 12 Gm Hfa.aer.ad, 2 PUFF INH BID, (Reported) Fluticasone Propionate (Flonase Allergy Relief) 9.9 Ml [place].susp, 2 SPR NARES DAILY, (Reported) Furosemide (Furosemide) 40 Mg Tablet, 40 MG PO BID, (Reported) Gabapentin (Gabapentin) 800 Mg Tab, 800 MG PO TID, (Reported) Levothyroxine Sodium (Levoxyl) 25 Mcg Tab, 25 MCG PO DAILY, (Reported) Pantoprazole Sodium (Pantoprazole Sodium) 40 Mg Tablet.dr, 40 MG PO DAILY, (Reported) Potassium Chloride (Potassium Chloride) 8 Meq Tablet.er, 8 MEQ PO BID, (Reported) Prednisone (Prednisone) 10 Mg Tablet, 1 TAB PO DAILY Taper, Take 4 tabs daily x2 days then 3 tabs daily x2 days then 2 tabs daily x2 days then 1 tab daily x2 days Prochlorperazine (Prochlorperazine Maleate) 5 Mg Tablet, 5 MG PO DAILY, (Reported) Sitagliptin Phosphate (Januvia) 100 Mg Tablet, 100 MG PO DAILY, (Reported) Tiotropium [place] (Spiriva) 18 Mcg Cap.w.dev, 1 INHALATION INH DAILY, (Reported) Scheduled PRN Acetaminophen (Tylenol Extra Strength) 500 Mg Tablet, 1,000 MG PO Q8H PRN for PAIN, (Reported) Albuterol Sulfate (Ventolin Hfa) 108 Mcg/Act Aer, 2 PUFFS INH Q4H PRN for SHORTNESS OF BREATH, (Reported) Hydrocodone/Acetaminophen ([place] 7.5-325 Tablet) 1 Each Tablet, 1 TAB PO BID PRN for PAIN, (Reported) Ipratropium/Albuterol Sulfate (Iprat-Albut 0.5-3(2.5) mg/3 ml) 3 Ml [place]mp[place].neb, 1 VIAL INH QID PRN for SHORTNESS OF BREATH, (Reported) Nystatin (Nystatin Powder) 15 Gm Powder, 1 DOSE TOP QHS PRN for ITCH/RASH, (Reported) USES UNDER BREASTS Allergies Coded Allergies: Cat Dander (Verified Allergy, Unknown, 03/21/19) Dust (Verified Allergy, Unknown, 03/21/19) ANGIE MARIE MD May 30, 2019 19:58
== END 2019-05-30 13:59 | disposition home or self-care (01) | DRG 189 ==
LOC: M ED 02:45 → M ED INP 07:30 → ENRESERV 11:01 → M ICU 11:50 → M MSPAV 17:58
PROVIDERS: ADMIT Internal Medicine; ATTEND Internal Medicine
DX: J96.22 Acute and chronic respiratory failure with hypercapnia (principal); J44.1 Chronic obstructive pulmonary disease with (acute) exacerbation; I50.30 Unspecified diastolic (congestive) heart failure; Z99.81 Dependence on supplemental oxygen; G47.33 Obstructive sleep apnea (adult) (pediatric); I25.10 Atherosclerotic heart disease of native coronary artery without angina pectoris; I25.2 Old myocardial infarction; I11.0 Hypertensive heart disease with heart failure; E78.5 Hyperlipidemia, unspecified; E11.9 Type 2 diabetes mellitus without complications; E03.9 Hypothyroidism, unspecified; F31.9 Bipolar disorder, unspecified; K21.9 Gastro-esophageal reflux disease without esophagitis; Z90.49 Acquired absence of other specified parts of digestive tract; F17.210 Nicotine dependence, cigarettes, uncomplicated; Z79.82 Long term (current) use of aspirin; Z91.09 Other allergy status, other than to drugs and biological substances; Z79.899 Other long term (current) drug therapy; Z79.52 Long term (current) use of systemic steroids

== ENCOUNTER 2019-06-14 18:33 | Inpatient (IN) | payer MEDICARE, MEDICAID ==
[~2019-06-14] VITALS: Ht 165.1 cm; Wt 83.3 kg
[~2019-06-14 18:33] MED LIST changes: +ACET-897 PO; +BISO5TAB14 PO; -BISO5TAB9 PO; -BUPR300T34 PO; +BUPR300T92 PO; +METF-877 PO; +PROC5TA PO
[2019-06-14 19:10] LABS: BASO # 0.1 10^3/uL (0.0-0.2); BASO % 0.5 % (0.0-1.0); EOS # 0.1 10^3/uL (0.0-0.5); EOS % 0.6 % (0.0-3.0); HEMATOCRIT 41.7 % (36.0-47.0); HEMOGLOBIN 11.3 g/dl (12.0-15.5); LYMPH # 3.4 10^3/uL (1.5-5.0); MEAN CORPUSCULAR HGB CONC 27.1 g/dl (32.0-36.5); MEAN CORPUSCULAR VOLUME 88.7 fl (80.0-96.0); MONO # 1.6 10^3/uL (0.0-0.8); MONO % 8.8 % (0.0-5.0); NEUTROPHILS # 12.5 10^3/uL (1.5-8.5); NEUTROPHILS % 69.4 % (36.0-66.0); PLATELET COUNT, AUTOMATED 481 10^3/uL (150-450)
--- NOTE | 2019-06-14 19:23 | REP ---
AP PORTABLE CHEST: 06/14/2019. Comparison: AP chest and CT 06/08/2019. AP chest 05/29/2019. Clinical history: Dyspnea and cough. Findings: Lungs are adequately inflated. There is some minor basilar fibrotic changes and peribronchial thickening. Some mild venous hypertension noted without gabriele edema, pleural effusion or dense consolidation. Heart size unchanged. Aorta and airway intact. No widening of the mediastinum. There is a dextrorotatory curve of the mid thoracic spine unchanged. Impression: 1. Some minor bilateral basilar fibrotic change with some venous hypertension suggested without gabriele edema, pleural effusion, dense consolidation, cardiomegaly or other acute finding. Electronically Signed by Ney Ramos MD 06/14/2019 07:29 P
[2019-06-14] MEDS ORDERED: dexameTHASONE 20 MG/5 ML VIAL (J1100) IV ONE ×2 (19:30→20:00)
[2019-06-14 19:36] LABS: ALBUMIN 3.4 GM/DL (3.2-5.2); ALT/SGPT 26 U/L (12-78); BILIRUBIN,DIRECT 0.2 MG/DL (0.0-0.2); BILIRUBIN,TOTAL 0.4 MG/DL (0.2-1.0); BLOOD UREA NITROGEN 14 MG/DL (7-18); CALCIUM LEVEL 8.8 MG/DL (8.8-10.2); CARBON DIOXIDE LEVEL 44 MEQ/L (21-32); CHLORIDE LEVEL 90 MEQ/L (98-107); CK-MB VALUE MASS 1.8 NG/ML (<3.6); CPK CREATINE PHOSPHOKINASE 35 U/L (26-192); CREATININE FOR GFR 0.53 MG/DL (0.55-1.30); GLOMERULAR FILTRATION RATE > 60.0 (>45); GLUCOSE, FASTING 145 MG/DL (70-100); MB/CK RELATIVE INDEX 5.14 (< OR =4); NT-PRO BNP 309 PG/ML (<125); POTASSIUM SERUM 3.8 MEQ/L (3.5-5.1); SODIUM LEVEL 139 MEQ/L (136-145); TOTAL PROTEIN 6.7 GM/DL (6.4-8.2); TROPONIN I < 0.02 NG/ML (< 0.10)
[2019-06-14 19:48] LABS: VENOUS BASE EXCESS 13.2 (-2.0-2.0); VENOUS HCO3 40.8 MEQ/L (23.0-27.0); VENOUS O2 SATURATION 97.5 % (60.0-80.0); VENOUS PARTIAL PRESSURE O2 132.4 mmHg (30.0-50.0); VENOUS STANDARD HCO3 36.9 MEQ/L; VENOUS TOTAL CO2 42.9 MEQ/L (24.0-28.0)
[2019-06-14] MEDS: IPRATROPIUM 0.5MG/ALBUTEROL 2.5MG INH SOL UD 3ML (DUONEB)(J7620) NEB SCH ×3 (20:10→21:09)
--- NOTE | 2019-06-14 21:10 | ECGEPIP ---
[facility] - ED Test Date: 2019-06-14 Pat Name: MIGUEL NAQVI Department: Room: - Gender: Female Dough Puncher: CARMEN : 1955 Requested By: RONNELL Jose Order Number: [id number] Reading MD: Gamal Neal Measurements Intervals [place] Rate: 102 P: 74 IA: 154 QRS: 53 QRSD: 94 T: 87 QT: 335 QTc: 437 Interpretive Statements SINUS TACHYCARDIA MODERATE INTRAVENTRICULAR CONDUCTION DELAY Electronically Signed on 06-14-2019 21:09:53 EST by Gamal Neal
[2019-06-14] MEDS ORDERED: PRED5TA PO (21:34)
[2019-06-14] MEDS ORDERED: NORC1TAB7 PO (21:34)
[2019-06-14] MEDS ORDERED: LEVALBUTEROL 1.25 MG/0.5 ML CONCENTRATE NEB NEB PRN (21:45)
[2019-06-14] MEDS ORDERED: NYSTATIN 100,000 UNITS/GM TOPICAL PWD 15 GM TOP PRN (21:45)
[2019-06-14] MEDS ORDERED: LEVALBUTEROL 1.25 MG/0.5 ML CONCENTRATE NEB NEB ONE (23:15)
--- NOTE | 2019-06-14 23:18 | HPEPDOC ---
General Date of Admission 06/14/2019 Date of Service: Jun 14, 2019 Attending Physician: NARAYAN FLORENCE MD Chief Complaint The patient is a 63-year-old female admitted with a reason for visit of Difficulty Breathing. Source: Patient Exam Limitations: Clinical conditions (BIPAP mask on, otherwise mentating well and answering questions appropriately) Timing/Duration: Day(s) Severity: Severe Associated Symptoms: Cough, Shortness of breath History of Present Illness 63-year-old W with COPD on 2L O2 and chronic steroids, SUYAPA and possible OHS? on BiPAP PRN and QHS, NIDDM2, CAD (Hx of [place]), HTN, hyperlipidemia, hypothyroidism, bipolar disorder, GERD, active smoker, recently admitted for COPD exacerbation who returns to the ED via EMS with complaints of worsening shortness of breath, without any complaints of gabriele chest pain, palpitations, fever, chills or increased sputum production. In the ED intial vitals were BP 184/87, 98% on 6L? then later on 2L and eventually placed on BiPAP 16/6 for increased somnolence that improved, HR 97, RR30. She was initially placed on 6L NC, later reduced to 2L NC after VBG showed 12/21/69/132, and was noted to be increased somnolent and was eventually placed on BiPAP 16/6 @ 40% with improvement of her somnolence and answered all questions appropriately on evaluation by hospitalist. She was given dexamethasone 20 and another 10mg later and duoneb x 1. Initial work up was notable for negative troponin, unremarkable BNP 309, normal TSH, CXR with chronic emphysematous changes without gabriele opacities or effusions, WBC 18, Hgb 11.3, Hgb 41.7, platelets 481, na 139, K 3.8, Bicarb 44, Cr 0.53, normal LFTs. She is now being admitted to the ICU for acute on chronic hypercarbic hypoxemic respiratory failure likely 2/2 COPD exacerbation for BiPAP and IV steroids. Home Medications Scheduled Alprazolam (Alprazolam) 0.5 Mg Tablet, 0.5 MG PO BID, (Reported) Aspirin (Aspirin EC) 81 Mg Tabec, 81 MG PO DAILY, (Reported) Atorvastatin Calcium (Lipitor) 80 Mg Tab, 80 MG PO QHS, (Reported) Bisoprolol Fumarate (Bisoprolol Fumarate) 5 Mg Tab, 2.5 MG PO DAILY, (Reported) Ergocalciferol (Vitamin D2) (Drisdol) 1,250 Mcg Capsule, 50,000 UNITS PO QWEEK, (Reported) FRIDAYS Fluoxetine HCl (Fluoxetine HCl) 20 Mg Tablet, 20 MG PO DAILY, (Reported) Fluticasone Propion/Salmeterol (Advair Hfa 230-21 Mcg Inhaler) 12 Gm Hfa.aer.ad, 2 PUFF INH BID, (Reported) Fluticasone Propionate (Flonase Allergy Relief) 9.9 Ml [place].susp, 2 SPR NARES DAILY, (Reported) Furosemide (Furosemide) 40 Mg Tablet, 40 MG PO BID, (Reported) TAKES AM/AFTERNOON Gabapentin (Gabapentin) 800 Mg Tab, 800 MG PO BID, (Reported) Levothyroxine Sodium (Levoxyl) 25 Mcg Tab, 25 MCG PO DAILY, (Reported) Metformin HCl (Metformin HCl) 1,000 Mg Tablet, 1,000 MG PO BID, (Reported) Pantoprazole Sodium (Pantoprazole Sodium) 40 Mg Tablet.dr, 40 MG PO DAILY, (Reported) Potassium Chloride (Potassium Chloride) 8 Meq Tablet.er, 8 MEQ PO BID, (Reported) Prednisone (Prednisone) 5 Mg Tablet, 5 MG PO DAILY, (Reported) Prochlorperazine (Prochlorperazine Maleate) 5 Mg Tablet, 5 MG PO DAILY, (Reported) Sitagliptin Phosphate (Januvia) 100 Mg Tablet, 100 MG PO DAILY, (Reported) Tiotropium [place] (Spiriva) 18 Mcg Cap.w.dev, 18 MCG INH DAILY, (Reported) Scheduled PRN Acetaminophen (Tylenol Extra Strength) 500 Mg Tablet, 1,000 MG PO Q8H PRN for PAIN, (Reported) Albuterol Sulfate (Ventolin Hfa) 108 Mcg/Act Aer, 2 PUFFS INH Q4H PRN for SHORTNESS OF BREATH, (Reported) Hydrocodone/Acetaminophen ([place] 5-325 Tablet) 1 Each Tablet, 1 TAB PO BID PRN for PAIN, (Reported) Ipratropium/Albuterol Sulfate (Iprat-Albut 0.5-3(2.5) mg/3 ml) 3 Ml Ampul.neb, 1 VIAL INH QID PRN for SHORTNESS OF BREATH, (Reported) Nystatin (Nystatin Powder) 15 Gm Powder, 1 DOSE TOP QHS PRN for ITCH/RASH, (Reported) USES UNDER BREASTS Allergies Coded Allergies: Cat Dander (Verified Allergy, Unknown, 06/14/19) Dust (Verified Allergy, Unknown, 06/14/19) Past Medical History Medical History COPD on 2L O2 and chronic steroids, SUYAPA on what appears to be PRN BiPAP that she also uses QHS, NIDDM2, CAD (Hx of [place]), HTN, DLP, Hypothyroidism, Bipolar disorder, GERD Surgical History Cholecystectomy Family History Mother has history of lung cancer Social History * Smoker: current smoker Alcohol: Denies Drugs: denies Recent Travel/Sick Contacts: Denies: Recent travel, Recent sick contacts Psychosocial History: Anxiety, Bipolar - Denies alcohol or illicit drugs - active smoker of greater than 50 years at 1 PPD - Denies recent travel or sick contacts - Lives alone - unemployed A-FIB/CHADSVASC A-FIB History Current/History of A-Fib/PAF?: No Current PO Anticoag Therapy: No Age/Risk Factor Scoring CHADSVASC: CHADSVASC Response (Comments) Value Age Risk Factor Age < 65 years old 0 Gender Risk Factor Female 1 Hx of CHF No 0 Hx of HTN Yes 1 Hx of Stroke/TIA/or VTE No 0 Hx of Diabetes Yes 1 Hx of Vascular Disease Yes 1 Total 4 Treatment Treatment ordered: NONE Reason Anticoagulant not given: Not indicated/[id number] Review of Systems Constitutional: Denies: Chills, Fever, Night Sweats Eyes: Denies: Pain, Vision change ENT: Denies: Head Aches, Ear Pain, Dysphagia Skin: Denies: Rash, Lesions, Breakdown Pulmonary: Reports: Dyspnea, Cough (dry to mildly productive); Denies: Pleuritic Chest Pain Cardiovascular: Reports: Edema (reports it to be her chronic level of LE edema); Denies: Chest Pain, Palpitations, Orthopnea, Paroxysmal Noc. Dyspnea, Lt Headedness Gastrointestinal: Denies: Nausea, Vomiting, Abdominal Pain, Diarrhea Genitourinary: Denies: Dysuria, Frequency, Incontinence, Retention Hematologic: Denies: Bruising, Bleeding Excessively Endocrine: Denies: Polydipsia, Polyphagia, Polyuria, Heat Intolerance, Cold Intolerance, Other Endocrine Sx Musculoskeletal: Denies: Neck Pain, Back Pain, Joint Pain, Muscle Pain, Spasms Neurological: Denies: Weakness, Numbness, Change in speech, Confusion Psych: Reports: Mood Normal; Denies: Depression, Memory Issues Physical Examination General Exam: Positive: Alert, No Acute Distress, Other (somnolent, alert on voice) Eye Exam: Positive: PERRLA, Conjunctiva & lids normal, EOMI; Negative: Sclera icteric ENT Exam: Positive: Atraumatic, Mucous membr. moist/pink, Pharynx Normal Neck Exam: Positive: Supple; Negative: JVD, thyromegaly, +2 carotid pulse wo bruit, Lymphadenopathy Chest Exam: Positive: Clear to auscultation, Wheezing (scattered), Diminished; Negative: Normal air movement, Rales, Rhonchi Heart Exam: Positive: Rate Normal, Regular Rhythm, Normal S1, Normal S2; Negative: Murmurs, Rubs Telemetry: Positive: No significant arrhythmia Abdomen Exam: Positive: Normal bowel sounds, Soft, Other (morbid central obesity); Negative: Tenderness, Hepatospenomegaly Extremity Exam: Positive: Edema (bilateral LE edema 1+ to midshins), Normal pulses; Negative: Clubbing, Cyanosis Skin Exam: Positive: Nl turgor and temperature; Negative: Breakdown, Lesion Neuro Exam: Positive: Normal Speech, Strength at 5/5 X4 ext, Cranial Nerves 3- 12 NL Psych Exam: Positive: Mental status NL, Mood NL, Oriented x 3, Other (Somnolent, however alert on voice, appropriate answers to questions, AOx3) Vital Signs Vital Signs Date Time Temp Pulse Resp B/P (MAP) Pulse Ox O2 Delivery O2 Flow Rate FiO2 06/14/19 21:09 90 23 06/14/19 21:04 32 06/14/19 19:00 147/67 (93) 92 Nasal Cannula 2.0 06/14/19 18:43 98.9 Laboratory Data Labs 24H Laboratory Tests 2 06/14/19 18:48: Immature Granulocyte % (Auto) 1.7, Neutrophils (%) (Auto) 69.4H, Lymphocytes (%) (Auto) 19.0L, Monocytes (%) (Auto) 8.8H, Eosinophils (%) (Auto) 0.6, Basophils (%) (Auto) 0.5, Neutrophils # (Auto) 12.5H, Lymphocytes # (Auto) 3.4, Monocytes # (Auto) 1.6H, Eosinophils # (Auto) 0.1, Basophils # (Auto) 0.1, Nucleated Red Blood Cells % (auto) 0.0, Anion Gap 5L, Glomerular Filtration Rate > 60.0, Calcium Level 8.8, Total Bilirubin 0.4, Direct Bilirubin 0.2, Aspartate Amino Transf (AST/SGOT) 13, Alanine Aminotransferase (ALT/SGPT) 26, Alkaline Phosphatase 132H, Total Creatine Kinase 35, Creatine Kinase MB 1.8, Creatine Kinase MB Relative Index 5.14H, Troponin I < 0.02, KT-Fvr-S-Type Natriuretic Peptide 309H, Total Protein 6.7, Albumin 3.4, Albumin/Globulin Ratio 1.03, Thyroid Stimulating Hormone (TSH) 2.090 06/14/19 19:43: Blood Gas Bicarbonate Standard 36.9, Venous Blood pH 7.390, Venous Blood Partial Pressure CO2 69.0H, Venous Blood Partial Pressure O2 132.4H, Venous Blood Total Carbon Dioxide 42.9H, Venous Blood HCO3 40.8H, Venous Blood Oxygen Saturation 97.5H, Venous Blood Base Excess 13.2H CBC/BMP Laboratory Tests 06/14/19 18:48 Assessment/Plan 63-year-old W with COPD on 2L O2 and chronic steroids, SUYAPA and possible OHS? on BiPAP PRN and QHS, NIDDM2, CAD (Hx of [place]), HTN, hyperlipidemia, hypothyroidism, bipolar disorder, GERD, active smoker, recently admitted for COPD exacerbation who returns to the ED via EMS with complaints of worsening shortness of breath, without any complaints of gabriele chest pain, palpitations, fever, chills or inc reased sputum production and work up without evidence of gabriele pneumonia being admitted for COPD exacerbation in the setting of active smoking and possible URI. Plan: Shortness of breath / acute on chronic hypercapnic hypoxemic respiratory failure: 2/2 COPD exacerbation - Likely 2/2 acute exacerbation of COPD , unlikely to be bacterial pneumonia with CXR without opacities, no history of increased sputum production, no fever, chills, and chronoic leukocytosis 2/2 steroids - Physical examination does not reveal any significant rhonchi, rales or wheezing - continue BiPAP at 16/6, consulted pulm with Dr. Pacheco aware of admission and will see in the AM - ABG pending since starting BiPAP, with follow up AM ABG ordered - Elevation of WBC appears chronic, without lactic acidosis - check respiratory panel - Will send sputum cultures and procalcitonin for now, no abx at this time, to treat for COPD exacerbation - Pulmonology consulted. appreciate recs - Solumedrol 60Q6 IV for now - Xenopex/ipratropium QID, and xenopex q4h PRN - NPO while on BiPAP - Held her benzo while somnolent, and reduced her gabapentin while somnolent, made restore these meds once mentation improves SUYAPA on home BiPAP QHS - continue continuous BIPAP at 16/6 at 40% NIDDM2 - Hold PO meds and start ISS AC/HS only because I expect her to be off the continuous BiPAP by AM otherwise will need Q6H -FSBG AC/HS -hypoglycemia protocol CAD (Hx of AK) - c/w ASA and Atorvastatin starting tomorrow AM as she will probably be taking PO by then HTN - c/w Bisoprolol and furosemide starting tomorrow AM as she will probably be taking PO by then Hyperlipidemia - c/w Atorvastatin starting tomorrow AM as she will probably be taking PO by then Hypothyroidism - c/w Levothyroxine starting tomorrow AM as she will probably be taking PO by then Bipolar disorder / Anxiety - Will hold Alprazolam while somnolent - c/w Fluoxetine Neuropathy / Chronic pain - c/w Gabapentin at 200 BID instead of 800 BID while somnolent, may restore once exam improves - Will hold [place] as well GERD - c/w Protonix, currently switched to IV while on continuous BiPAP DVT prophylaxis: Lovenox 40 Diet: NPO on continous BiPAP Dispo: ICU Plan / VTE VTE Prophylaxis Ordered?: Yes NARAYAN FLORENCE MD Jun 14, 2019 23:18
[2019-06-14 23:44] VITALS: BP 132/67
[2019-06-15] VITALS (12 sets, daily range): BP systolic 109–133; BP diastolic 61–77
[2019-06-15 00:12] LABS: ABG BASE EXCESS 14.5 (-2.0-2.0); ABG HCO3 42.8 MEQ/L (22.0-26.0); ABG O2 SATURATION 97.8 % (95.0-99.0); ABG PARTIAL PRESSURE O2 140.6 mmHg (75.0-100.0); ABG STANDARD HCO3 38.3 MEQ/L (22.0-26.0); ABG TOTAL CO2 45.1 MEQ/L (23.0-31.0); ABG pH (ARTERIAL) 7.372 UNITS (7.350-7.450)
[2019-06-15 00:15] LABS: ABG PARTIAL PRESSURE CO2 75.4 mmHg (35.0-45.0)
[2019-06-15] MEDS ORDERED: GLUCOSE 4 GM CHEW TABLET PO PRN ×2 (00:30→13:15)
[2019-06-15] MEDS ORDERED: GLUCAGON FOR INJ 1 MG VIAL (J1610) SC PRN ×2 (00:30→13:15)
[2019-06-15] MEDS ORDERED: DEXTROSE 50% 50 ML SYRINGE IV PRN ×2 (00:30→13:15)
[2019-06-15] MEDS: POTASSIUM CHLORIDE 10 MEQ SR TABLET PO SCH ×3 (00:38→20:59)
[2019-06-15] MEDS: GABAPENTIN 100 MG CAP PO SCH ×3 (00:38→20:59)
[2019-06-15] MEDS: methylPREDNISolone INJ 125 MG/2 ML VIAL (J2930) IV SCH ×4 (00:39→17:39)
[2019-06-15] MEDS: ATORVASTATIN 20 MG TAB PO SCH ×2 (00:39→20:59)
[2019-06-15] MEDS: ACETAMINOPHEN 500 MG TAB PO PRN ×2 (00:39→09:58)
[2019-06-15] MEDS: HumaLOG INSULIN (NovoLOG) PER UNIT SC SCH ×5 (01:31→21:00)
[2019-06-15 04:13] LABS: HEMATOCRIT 38.8 % (36.0-47.0); HEMOGLOBIN 10.5 g/dl (12.0-15.5); MEAN CORPUSCULAR HEMOGLOBIN 23.6 pg (27.0-33.0); MEAN CORPUSCULAR HGB CONC 27.1 g/dl (32.0-36.5); MEAN CORPUSCULAR VOLUME 87.4 fl (80.0-96.0); PLATELET COUNT, AUTOMATED 409 10^3/uL (150-450); RED BLOOD COUNT 4.44 10^6/uL (4.00-5.40)
[2019-06-15 04:33] LABS: BLOOD UREA NITROGEN 19 MG/DL (7-18); CALCIUM LEVEL 8.9 MG/DL (8.8-10.2); CARBON DIOXIDE LEVEL 44 MEQ/L (21-32); CHLORIDE LEVEL 91 MEQ/L (98-107); CREATININE FOR GFR 0.65 MG/DL (0.55-1.30); GLOMERULAR FILTRATION RATE > 60.0 (>45); GLUCOSE, FASTING 273 MG/DL (70-100); POTASSIUM SERUM 3.9 MEQ/L (3.5-5.1); SODIUM LEVEL 138 MEQ/L (136-145)
[2019-06-15] MEDS: LEVOTHYROXINE 25MCG TABLET (0.025MG) PO SCH (05:26)
[2019-06-15] MEDS: LEVALBUTEROL 1.25 MG/0.5 ML CONCENTRATE NEB NEB SCH ×4 (07:24→19:45)
[2019-06-15] MEDS: IPRATROPIUM 0.02% SOLN 0.5MG/2.5 ML NEB NEB SCH ×4 (07:24→19:44)
[2019-06-15 08:49] LABS: ABG BASE EXCESS 18.3 (-2.0-2.0); ABG HCO3 45.2 MEQ/L (22.0-26.0); ABG O2 SATURATION 93.1 % (95.0-99.0); ABG STANDARD HCO3 42.3 MEQ/L (22.0-26.0); ABG TOTAL CO2 47.2 MEQ/L (23.0-31.0); ABG pH (ARTERIAL) 7.455 UNITS (7.350-7.450)
[2019-06-15 08:53] LABS: ABG PARTIAL PRESSURE CO2 65.7 mmHg (35.0-45.0)
[2019-06-15] MEDS ORDERED: predniSONE 20 MG TAB PO SCH (09:00)
[2019-06-15] MEDS ORDERED: PANTOPRAZOLE 40MG INJ (PROTONIX) (C9113) IV SCH (09:00)
[2019-06-15] MEDS ORDERED: PANTOPRAZOLE 40MG TAB (PROTONIX) PO SCH (09:00)
[2019-06-15] MEDS: FLUoxetine 20 MG CAP PO SCH (09:57)
[2019-06-15] MEDS: ENOXAPARIN 40 MG/0.4 ML SYRINGE (J1650) SC SCH (09:58)
[2019-06-15] MEDS: FUROSEMIDE 40 MG TAB PO SCH ×2 (09:58→17:38)
[2019-06-15] MEDS: PROCHLORPERAZINE 5 MG TAB (S0183) PO SCH (09:58)
[2019-06-15] MEDS: ASPIRIN 81 MG ENTERIC TAB PO SCH (09:58)
[2019-06-15] MEDS: BISOPROLOL FUM 2.5 MG PER 1/2TAB PO SCH (09:59)
--- NOTE | 2019-06-15 10:19 | IPNPDOC ---
Subjective Date Seen The patient was seen on 06/15/19. Subjective Chief Complaint/HPI Patient is still on BiPAP. Feeling a lot better. Offers no new complaints, awaiting pulmonary consultation General: Denies: ROS Unobtainable, Chills, Night Sweats, Fatigue, Malaise, Normal Appetite, Other Symptoms Constitutional: Denies: Chills, Fever, Malaise, Night Sweats, Weakness, Fatigue, Weight Loss, Lethargy, Other Eyes: Denies: Pain, Vision change, Conjunctivae inflammation, Eyelid inflammation, Redness, Other ENT: Denies: Head Aches, Ear Pain, Dysphagia, Sinus Congestion, Post Nasal Drip, Sore Throat, Epistaxis, Other Symptoms Pulmonary: Reports: Dyspnea Cardiovascular: Denies: Chest Pain, Palpitations, Orthopnea, Paroxysmal Noc. Dyspnea, Edema, Lt Headedness, Other Symptoms Genitourinary: Denies: Dysuria, Frequency, Incontinence, Hematuria, Retention, Other Symptoms Hematologic: Denies: Bruising, Bleeding Excessively, Petecchia, Purpura, Enlarged Lymph Nodes, Other Hematologic Endocrine: Denies: Polydipsia, Polyphagia, Polyuria, Heat Intolerance, Cold Intolerance, Other Endocrine Sx Musculoskeletal: Denies: Neck Pain, Back Pain, Shoulder Pain, Arm Pain, Hand Pain, Leg Pain, Foot Pain, Joint Pain, Muscle Pain, Spasms, Other Symptoms Neurological: Denies: Weakness, Numbness, Incoordination, Change in speech, Confusion, Seizures, Other Symptoms Objective Physical Examination Eye Exam: Negative: Sclera icteric Neck Exam: Positive: Supple; Negative: JVD, thyromegaly, +2 carotid pulse wo bruit, Lymphadenopathy Chest Exam: Positive: Clear to auscultation, Wheezing (scattered), Diminished; Negative: Normal air movement, Rales, Rhonchi Heart Exam: Positive: Rate Normal, Regular Rhythm, Normal S1, Normal S2; Negative: Murmurs, Rubs Telemetry: Positive: No significant arrhythmia Abdomen Exam: Positive: Normal bowel sounds, Soft, Other (morbid central obesity); Negative: Tenderness, Hepatospenomegaly Extremity Exam: Positive: Edema (bilateral LE edema 1+ to midshins), Normal pulses; Negative: Clubbing, Cyanosis Skin Exam: Positive: Nl turgor and temperature; Negative: Breakdown, Lesion Neuro Exam: Positive: Normal Speech, Strength at 5/5 X4 ext, Cranial Nerves 3- 12 NL Assessment /Plan Problems (1) Acute on chronic respiratory failure with hypercapnia Status: Acute Problem Text: Shortness of breath / acute on chronic hypercapnic hypoxemic r espiratory failure: 2/2 COPD exacerbation Likely 2/2 acute exacerbation of COPD , unlikely to be bacterial pneumonia with CXR without opacities, no history of increased sputum production, no fever, ch ills, and chronoic leukocytosis 2/2 steroids Physical examination does not reveal any significant rhonchi, rales or wheezing Pulmonary consult is pending. Most likely BiPAP will be taken off and she will continue BiPAP during naps and at nighttime No evidence of any infection. Hence, not started on antibiotics Continue Solu-Medrol and Xopenex and ipratropium as per orders Restart carbohydrate consistent diet Continue all home meds (2) COPD exacerbation Status: Acute Problem Text: As above (3) DMII (diabetes mellitus, type 2) Status: Chronic Problem Text: Hold PO meds and start ISS AC/HS hypoglycemia protocol (4) Hypothyroid Status: Chronic Problem Text: Continue home meds (5) HTN (hypertension) Status: Chronic Problem Text: Continue home meds (6) GERD (gastroesophageal reflux disease) Status: Chronic Problem Text: Continue home meds Plan/VTE VTE Prophylaxis Ordered?: Yes VS, I&O, [facility] Vital Signs/I&O Vital Signs Date Time Temp Pulse Resp B/P (MAP) Pulse Ox O2 Delivery O2 Flow Rate FiO2 06/15/19 09:59 85 111/64 06/15/19 09:00 93 NIPPV (BIPAP/CPAP) 35 06/15/19 08:36 97.3 24 06/14/19 19:00 2.0 I&O- Last 24 Hours up to 6 AM 06/15/19 06:00 Intake Total 120 ml Output Total 350 ml Balance -230 ml Laboratory Data 24H LABS Laboratory Tests 2 06/14/19 18:48: Immature Granulocyte % (Auto) 1.7, Neutrophils (%) (Auto) 69.4H, Lymphocytes (%) (Auto) 19.0L, Monocytes (%) (Auto) 8.8H, Eosinophils (%) (Auto) 0.6, Basophils (%) (Auto) 0.5, Neutrophils # (Auto) 12.5H, Lymphocytes # (Auto) 3.4, Monocytes # (Auto) 1.6H, Eosinophils # (Auto) 0.1, Basophils # (Auto) 0.1, Nucleated Red Blood Cells % (auto) 0.0, Anion Gap 5L, Glomerular Filtration Rate > 60.0, Calcium Level 8.8, Total Bilirubin 0.4, Direct Bilirubin 0.2, Aspartate Amino Transf (AST/SGOT) 13, Alanine Aminotransferase (ALT/SGPT) 26, Alkaline Ph osphatase 132H, Total Creatine Kinase 35, Creatine Kinase MB 1.8, Creatine Kinase MB Relative Index 5.14H, Troponin I < 0.02, MV-Etq-M-Type Natriuretic Peptide 309H, Total Protein 6.7, Albumin 3.4, Albumin/Globulin Ratio 1.03, Thyroid Stimulating Hormone (TSH) 2.090 06/14/19 19:43: Blood Gas Bicarbonate Standard 36.9, Venous Blood pH 7.390, Venous Blood Partial Pressure CO2 69.0H, Venous Blood Partial Pressure O2 132.4H, Venous Blood Total Carbon Dioxide 42.9H, Venous Blood HCO3 40.8H, Venous Blood Oxygen Saturation 97.5H, Venous Blood Base Excess 13.2H 06/14/19 23:58: Blood Gas Bicarbonate Standard 38.3H, Arterial Blood pH 7.372, Arterial Blood Partial Pressure CO2 75.4*H, Arterial Blood Partial Pressure O2 140.6H, Arterial Blood Total CO2 45.1H, Arterial Blood HCO3 42.8H, Arterial Blood Base Excess 14.5H, Arterial Blood Oxygen Saturation 97.8 06/15/19 01:28: Bedside Glucose (Misc Panel) 296H 06/15/19 03:56: Nucleated Red Blood Cells % (auto) 0.0, Anion Gap 3L, Glomerular Filtration Rate > 60.0, Calcium Level 8.9 06/15/19 08:35: Blood Gas Bicarbonate Standard 42.3H, Arterial Blood pH 7.455H, Arterial Blood Partial Pressure CO2 65.7*H, Arterial Blood Partial Pressure O2 66.0L, Arterial Blood Total CO2 47.2H, Arterial Blood HCO3 45.2H, Arterial Blood Base Excess 18.3H, Arterial Blood Oxygen Saturation 93.1L CBC/BMP Laboratory Tests 06/14/19 18:48 06/15/19 03:56 JESSICA FOSTER MD Jun 15, 2019 10:19
--- NOTE | 2019-06-15 10:44 | IPN ---
DATE: 06/15/2019 I attended Constance Zavala here in the intensive care unit (ICU). The patient has been examined and chart reviewed. In reviewing her hospitalization, she is well known to me from the outpatient setting. She was just discharged from the hospital several days ago. Further questions reveals, as suspected, she went home and started smoking again. She knows that she is wrong but gets bored. She has a friend buy her cigarettes for her and we had a very lengthy and somewhat pointed discussion on that regard. She is compliant with her BiPAP at home. She states compliance with the remainder of her medications. On arrival here, she was dyspneic. Blood gas was essentially at her baseline. She was placed on home BiPAP settings at 12/6 with 2 liter bleed in. She says that she is feeling back to her normal self this morning. She had been given IV steroids. Maximum temperature (t-max) overnight 98.4, blood pressure 109 to 120s. Heart rate 80 to 94% in sinus mechanism. Respiratory rate in the low 20s without accessory muscle use. All laboratories have been reviewed. Chest x-ray shows no infiltrate. PHYSICAL EXAMINATION: She is awake, alert, appropriate. Mildly cushingoid. Pupils react. Sclerae clear. Trachea is in the midline. Chest shows kyphosis with markedly decreased in breath sound intensity. No focal wheeze, rhonchus or rub. CARDIAC: Examination is regular without gallop. EXTREMITIES: Peripheral pulses palpable. Trace edema. ABDOMEN: Obese, soft, nontender. Active bowel sounds. No convincing organomegaly or masses. EXTREMITIES: Without cyanosis or clubbing. NEUROLOGIC: Awake, alert, and appropriate. PSYCHIATRIC: Normal mood and affect. LABORATORY DATA: As outlined above. IMPRESSION: 1. Advanced obstructive lung disease with increasing symptomatology. 2. Continued tobacco abuse. 3. Obstructive sleep apnea with stated compliance with therapy. RECOMMENDATIONS: A very lengthy discussion was again held over the need to be completely free of cigarettes, but I do not think that this will ever happen. She conveys understanding and then becomes quite tearful. She is compliant with the remainder of her therapy, but as long as she continues to smoke we will get nowhere with any of that. She also conveys understanding of that. We will wean her steroids to oral. We will try getting her up out of bed. We will allow her to eat. We will put her back on her usual BiPAP settings. Further recommendations will be made in the progress record as new information becomes available.
[2019-06-15] MEDS: TIOTROPIUM INHALER/CAPSULE (SPIRIVA) INH SCH (10:53)
[2019-06-15] MEDS: ADVAIR HFA 230/21MCG INHALER INH SCH ×2 (10:54→19:44)
[2019-06-15] MEDS: SITagliptin 50 MG TAB (JANUVIA) PO SCH (12:05)
[2019-06-15] MEDS: ALPRAZolam 0.5 MG TAB PO SCH ×2 (12:05→20:59)
[2019-06-15] MEDS: metFORMIN (GLUCOPHAGE) 1000 MG TABLET PO SCH ×2 (12:05→20:58)
[2019-06-15] MEDS: FLUTICASONE PROP 0.05% NASAL SPRAY 16 GM (FLONASE) NARES SCH (12:06)
[2019-06-15] MEDS: NORCO, ANEXSIA 5/325MG TABLET (HYDROcodone/ACETAMINOPHEN) PO PRN (20:58)
[2019-06-16] MEDS: ACETAMINOPHEN 500 MG TAB PO PRN ×2 (02:28→16:16)
[2019-06-16 04:05] VITALS: BP 123/62
[2019-06-16 04:38] LABS: HEMATOCRIT 34.6 % (36.0-47.0); HEMOGLOBIN 9.9 g/dl (12.0-15.5); MEAN CORPUSCULAR HEMOGLOBIN 24.4 pg (27.0-33.0); MEAN CORPUSCULAR HGB CONC 28.6 g/dl (32.0-36.5); MEAN CORPUSCULAR VOLUME 85.2 fl (80.0-96.0); PLATELET COUNT, AUTOMATED 458 10^3/uL (150-450); RED BLOOD COUNT 4.06 10^6/uL (4.00-5.40); WHITE BLOOD COUNT 20.8 10^3/uL (4.0-10.0)
[2019-06-16 04:58] LABS: BLOOD UREA NITROGEN 21 MG/DL (7-18); CALCIUM LEVEL 9.1 MG/DL (8.8-10.2); CARBON DIOXIDE LEVEL 39 MEQ/L (21-32); CHLORIDE LEVEL 92 MEQ/L (98-107); CREATININE FOR GFR 0.65 MG/DL (0.55-1.30); GLOMERULAR FILTRATION RATE > 60.0 (>45); GLUCOSE, FASTING 261 MG/DL (70-100); POTASSIUM SERUM 3.7 MEQ/L (3.5-5.1); SODIUM LEVEL 138 MEQ/L (136-145)
[2019-06-16] MEDS: LEVOTHYROXINE 25MCG TABLET (0.025MG) PO SCH (06:17)
[2019-06-16] MEDS: ADVAIR HFA 230/21MCG INHALER INH SCH ×2 (07:18→19:36)
[2019-06-16] MEDS: TIOTROPIUM INHALER/CAPSULE (SPIRIVA) INH SCH (07:18)
[2019-06-16] MEDS: IPRATROPIUM 0.02% SOLN 0.5MG/2.5 ML NEB NEB SCH ×4 (08:00→19:37)
[2019-06-16] MEDS: LEVALBUTEROL 1.25 MG/0.5 ML CONCENTRATE NEB NEB SCH ×4 (08:00→19:37)
--- NOTE | 2019-06-16 08:04 | REP ---
Portable chest, 07:34 a.m., single AP view with the the patient sitting: Comparison is 06/14/2019. The lung cherry are clear. The cardiac size is normal. The wesly, mediastinum, and skeletal structures are unremarkable. Impression: Negative portable chest. Electronically Signed by Brigido Hinton MD 06/16/2019 07:57 A
[2019-06-16] MEDS: SITagliptin 50 MG TAB (JANUVIA) PO SCH (08:18)
[2019-06-16] MEDS: PROCHLORPERAZINE 5 MG TAB (S0183) PO SCH (08:18)
[2019-06-16] MEDS: ASPIRIN 81 MG ENTERIC TAB PO SCH (08:18)
[2019-06-16] MEDS: ALPRAZolam 0.5 MG TAB PO SCH ×2 (08:18→21:37)
[2019-06-16] MEDS: PANTOPRAZOLE 40MG TAB (PROTONIX) PO SCH (08:18)
[2019-06-16] MEDS: POTASSIUM CHLORIDE 10 MEQ SR TABLET PO SCH ×2 (08:19→21:37)
[2019-06-16] MEDS: FLUoxetine 20 MG CAP PO SCH (08:19)
[2019-06-16] MEDS: metFORMIN (GLUCOPHAGE) 1000 MG TABLET PO SCH ×2 (08:19→21:38)
[2019-06-16] MEDS: FUROSEMIDE 40 MG TAB PO SCH ×2 (08:19→16:16)
[2019-06-16] MEDS: GABAPENTIN 100 MG CAP PO SCH ×2 (08:19→21:37)
[2019-06-16] MEDS: predniSONE 20 MG TAB PO SCH (08:19)
[2019-06-16 08:21] VITALS: BP 134/72
[2019-06-16] MEDS: BISOPROLOL FUM 2.5 MG PER 1/2TAB PO SCH (08:21)
[2019-06-16] MEDS: HumaLOG INSULIN (NovoLOG) PER UNIT SC SCH ×4 (08:22→21:00)
[2019-06-16] MEDS: ENOXAPARIN 40 MG/0.4 ML SYRINGE (J1650) SC SCH (08:22)
[2019-06-16] MEDS: FLUTICASONE PROP 0.05% NASAL SPRAY 16 GM (FLONASE) NARES SCH (08:32)
--- NOTE | 2019-06-16 10:33 | IPN ---
DATE: 06/16/2019 I again attended Constance Zavala here in the intensive care unit (ICU). The patient has been examined and chart reviewed. She is quite comfortable. She has been on and off her home BiPAP settings. T-max overnight 98.4, blood pressure 120 systolic. Heart rate in the 80s. Respiratory rate 18-24 without accessory muscle use. When off the home BiPAP settings she is on her usual 2-3 liters nasal cannula. Labs have all been reviewed. Chest x-ray done this morning shows no acute findings. PHYSICAL EXAMINATION: She is comfortable. Pupils react. Sclerae clear. Chest with diminished breath sound intensity, but no focal adventitious sounds. Cardiac exam is regular. Abdomen soft, but nontender. Extremities no cyanosis or clubbing. Trace edema. Neurologically nonfocal. IMPRESSION: 1. Acute on chronic respiratory failure. 2. Continued tobacco abuse. 3. Essentially end stage obstructive lung disease. 4. Obstructive sleep apnea on home BiPAP. 5. Chronic steroids. At this point, I am in agreement with plans as outlined by the primary service. She is on her home BiPAP settings. She could be weaned to a fully oral regimen. I spoke at length with her yesterday, but the main issue for her frequent exacerbations and readmissions is continued tobacco abuse at home. She said it is just to hard to quit and understands that eventually will kill her. We will do the best we can in the interim. Her change for readmission is extremely high and I expect it to be frequent. She has a followup in the office, but generally gets readmitted before she gets to that point. Further recommendations will be made in the progress record as new information becomes available.
[2019-06-16 10:41] VITALS: BP 137/65
--- NOTE | 2019-06-16 12:14 | IPNPDOC ---
Subjective Date Seen The patient was seen on 06/16/19. Subjective Chief Complaint/HPI Patient's is a lot better off BiPAP will be transferred to [facility] floor today General: Denies: ROS Unobtainable, Chills, Night Sweats, Fatigue, Malaise, Normal Appetite, Other Symptoms Constitutional: Denies: Chills, Fever, Malaise, Night Sweats, Weakness, Fatigue, Weight Loss, Lethargy, Other Skin: Denies: Rash, Lesions, Jaundice, Bruising, Itching, Dry, Breakdown, Nail Changes, Other Pulmonary: Reports: Other Symptoms (decreased breath sounds bilaterally but no wheezing) Cardiovascular: Denies: Chest Pain, Palpitations, Orthopnea, Paroxysmal Noc. Dyspnea, Edema, Lt Headedness, Other Symptoms Gastrointestinal: Denies: Nausea, Vomiting, Abdominal Pain, Diarrhea, Constipation, Melena, Hematochezia, Other Symptoms Musculoskeletal: Denies: Neck Pain, Back Pain, Shoulder Pain, Arm Pain, Hand Pain, Leg Pain, Foot Pain, Joint Pain, Muscle Pain, Spasms, Other Symptoms Neurological: Denies: Weakness, Numbness, Incoordination, Change in speech, Confusion, Seizures, Other Symptoms Objective Physical Examination Eye Exam: Negative: Sclera icteric Neck Exam: Positive: Supple; Negative: JVD, thyromegaly, +2 carotid pulse wo bruit, Lymphadenopathy Chest Exam: Positive: Other (. Diminished breath sounds bilaterally but no wheezing) Heart Exam: Positive: Rate Normal, Regular Rhythm, Normal S1, Normal S2; Negative: Murmurs, Rubs Telemetry: Positive: No significant arrhythmia Abdomen Exam: Positive: Normal bowel sounds, Soft, Other (morbid central obesity); Negative: Tenderness, Hepatospenomegaly Extremity Exam: Positive: Edema (bilateral LE edema 1+ to midshins), Normal pulses; Negative: Clubbing, Cyanosis Skin Exam: Positive: Nl turgor and temperature; Negative: Breakdown, Lesion Neuro Exam: Positive: Normal Speech, Strength at 5/5 X4 ext, Cranial Nerves 3- 12 NL Assessment /Plan Problems (1) Acute on chronic respiratory failure with hypercapnia Status: Acute Problem Text: Shortness of breath / acute on chronic hypercapnic hypoxemic respiratory failure: 2/2 COPD exacerbation Likely 2/2 acute exacerbation of COPD , unlikely to be bacterial pneumonia with CXR without opacities, no history of increased sputum production, no fever, chills, and chronoic leukocytosis 2/2 steroids Physical examination does not reveal any significant rhonchi, rales or wheezing Pulmonary consult is pending. Most likely BiPAP will be taken off and she will continue BiPAP during naps and at nighttime No evidence of any infection. Hence, not started on antibiotics Continue Solu-Medrol and Xopenex and ipratropium as per orders Patient has significantly improved with the current therapy and is off BiPAP now Will be transferred to medical floor and hopefully home in a day or 2 PT eval will be ordered Restart carbohydrate consistent diet Continue all home meds (2) COPD exacerbation Status: Acute Problem Text: As above (3) DMII (diabetes mellitus, type 2) Status: Chronic Problem Text: Hold PO meds and start ISS AC/HS hypoglycemia protocol (4) Hypothyroid Status: Chronic Problem Text: Continue home meds (5) HTN (hypertension) Status: Chronic Problem Text: Continue home meds (6) GERD (gastroesophageal reflux disease) Status: Chronic Problem Text: Continue home meds Plan/VTE VTE Prophylaxis Ordered?: Yes VS, I&O, 24H, Fishbone Vital Signs/I&O Vital Signs Date Time Temp Pulse Resp B/P (MAP) Pulse Ox O2 Delivery O2 Flow Rate FiO2 06/16/19 10:41 97.8 86 20 137/65 (89) 95 Nasal Cannula 2.0 06/16/19 04:25 28 I&O- Last 24 Hours up to 6 AM 06/16/19 06:00 Intake Total 1800 ml Output Total 2050 ml Balance -250 ml Laboratory Data 24H LABS Laboratory Tests 2 06/15/19 16:57: Bedside Glucose (Misc Panel) 326H 06/15/19 20:51: Bedside Glucose (Misc Panel) 231H 06/16/19 04:08: Nucleated Red Blood Cells % (auto) 0.0, Anion Gap 7L, Glomerular Filtration Rate > 60.0, Calcium Level 9.1 06/16/19 11:36: Bedside Glucose (Misc Panel) 224H CBC/BMP Laboratory Tests 06/16/19 04:08 JESSICA FOSTER MD Jun 16, 2019 12:14
[2019-06-16 14:00] VITALS: BP 115/57
[2019-06-16] MEDS: ATORVASTATIN 20 MG TAB PO SCH (21:37)
[2019-06-16 22:00] VITALS: BP 98/58
[2019-06-17] MEDS: LEVOTHYROXINE 25MCG TABLET (0.025MG) PO SCH (05:31)
[2019-06-17 06:00] VITALS: BP 113/57
[2019-06-17 06:06] LABS: BASO % 0.2 % (0.0-1.0); EOS % 0.3 % (0.0-3.0); HEMATOCRIT 34.7 % (36.0-47.0); HEMOGLOBIN 9.6 g/dl (12.0-15.5); LYMPH # 2.4 10^3/uL (1.5-5.0); LYMPH % 19.8 % (24.0-44.0); MEAN CORPUSCULAR HEMOGLOBIN 24.2 pg (27.0-33.0); MEAN CORPUSCULAR HGB CONC 27.7 g/dl (32.0-36.5); MEAN CORPUSCULAR VOLUME 87.4 fl (80.0-96.0); MONO # 1.2 10^3/uL (0.0-0.8); MONO % 9.6 % (0.0-5.0); NEUTROPHILS # 8.5 10^3/uL (1.5-8.5); NEUTROPHILS % 69.4 % (36.0-66.0); PLATELET COUNT, AUTOMATED 376 10^3/uL (150-450); RED BLOOD COUNT 3.97 10^6/uL (4.00-5.40); WHITE BLOOD COUNT 12.2 10^3/uL (4.0-10.0)
[2019-06-17 06:50] LABS: ALBUMIN 2.7 GM/DL (3.2-5.2); ALT/SGPT 21 U/L (12-78); BILIRUBIN,TOTAL 0.4 MG/DL (0.2-1.0); BLOOD UREA NITROGEN 19 MG/DL (7-18); CALCIUM LEVEL 8.2 MG/DL (8.8-10.2); CARBON DIOXIDE LEVEL 46 MEQ/L (21-32); CHLORIDE LEVEL 93 MEQ/L (98-107); CREATININE FOR GFR 0.48 MG/DL (0.55-1.30); GLOMERULAR FILTRATION RATE > 60.0 (>45); GLUCOSE, FASTING 129 MG/DL (70-100); MAGNESIUM LEVEL 1.6 MG/DL (1.8-2.4); POTASSIUM SERUM 3.3 MEQ/L (3.5-5.1); SODIUM LEVEL 140 MEQ/L (136-145); TOTAL PROTEIN 5.7 GM/DL (6.4-8.2)
[2019-06-17] MEDS: TIOTROPIUM INHALER/CAPSULE (SPIRIVA) INH SCH (07:07)
[2019-06-17] MEDS: IPRATROPIUM 0.02% SOLN 0.5MG/2.5 ML NEB NEB SCH ×4 (07:08→20:00)
[2019-06-17] MEDS: ADVAIR HFA 230/21MCG INHALER INH SCH ×2 (07:08→20:21)
[2019-06-17] MEDS: LEVALBUTEROL 1.25 MG/0.5 ML CONCENTRATE NEB NEB SCH ×4 (07:08→20:00)
[2019-06-17] MEDS ORDERED: POTASSIUM CHLORIDE 10 MEQ SR TABLET PO ONE (07:45)
[2019-06-17] MEDS: ENOXAPARIN 40 MG/0.4 ML SYRINGE (J1650) SC SCH (08:17)
[2019-06-17] MEDS: PANTOPRAZOLE 40MG TAB (PROTONIX) PO SCH (08:18)
[2019-06-17] MEDS: ASPIRIN 81 MG ENTERIC TAB PO SCH (08:18)
[2019-06-17] MEDS: BISOPROLOL FUM 2.5 MG PER 1/2TAB PO SCH (08:18)
[2019-06-17] MEDS: GABAPENTIN 100 MG CAP PO SCH ×2 (08:18→21:28)
[2019-06-17] MEDS: predniSONE 20 MG TAB PO SCH (08:18)
[2019-06-17] MEDS: FLUoxetine 20 MG CAP PO SCH (08:18)
[2019-06-17] MEDS: PROCHLORPERAZINE 5 MG TAB (S0183) PO SCH (08:18)
[2019-06-17] MEDS: ALPRAZolam 0.5 MG TAB PO SCH ×2 (08:18→21:28)
[2019-06-17] MEDS: FUROSEMIDE 40 MG TAB PO SCH ×2 (08:19→17:25)
[2019-06-17] MEDS: metFORMIN (GLUCOPHAGE) 1000 MG TABLET PO SCH ×2 (08:19→21:28)
[2019-06-17] MEDS: SITagliptin 50 MG TAB (JANUVIA) PO SCH (08:19)
[2019-06-17] MEDS: HumaLOG INSULIN (NovoLOG) PER UNIT SC SCH ×4 (08:20→21:29)
[2019-06-17] MEDS ORDERED: VITAMIN D 50,000 UNITS CAPSULE (ERGOCALCIFEROL 1.25MG) PO SCH (09:00)
[2019-06-17] MEDS: FLUTICASONE PROP 0.05% NASAL SPRAY 16 GM (FLONASE) NARES SCH (10:33)
[2019-06-17] MEDS: POTASSIUM CHLORIDE 10 MEQ SR TABLET PO SCH ×2 (10:33→21:28)
--- NOTE | 2019-06-17 12:33 | IPNPDOC ---
Subjective Date Seen The patient was seen on 06/17/19. Subjective Chief Complaint/HPI Patient is comfortable in no distress. Offers no new complaints related to be discharged either home or assisted living facility General: Denies: ROS Unobtainable, Chills, Night Sweats, Fatigue, Malaise, Normal Appetite, Other Symptoms Constitutional: Denies: Chills, Fever, Malaise, Night Sweats, Weakness, Fatigue, Weight Loss, Lethargy, Other Pulmonary: Denies: Dyspnea, Cough, Pleuritic Chest Pain, Other Symptoms Cardiovascular: Denies: Chest Pain, Palpitations, Orthopnea, Paroxysmal Noc. Dyspnea, Edema, Lt Headedness, Other Symptoms Genitourinary: Denies: Dysuria, Frequency, Incontinence, Hematuria, Retention, Other Symptoms Endocrine: Denies: Polydipsia, Polyphagia, Polyuria, Heat Intolerance, Cold In tolerance, Other Endocrine Sx Musculoskeletal: Denies: Neck Pain, Back Pain, Shoulder Pain, Arm Pain, Hand Pain, Leg Pain, Foot Pain, Joint Pain, Muscle Pain, Spasms, Other Symptoms Neurological: Denies: Weakness, Numbness, Incoordination, Change in speech, Confusion, Seizures, Other Symptoms Objective Physical Examination Eye Exam: Negative: Sclera icteric Neck Exam: Positive: Supple; Negative: JVD, thyromegaly, +2 carotid pulse wo bruit, Lymphadenopathy Chest Exam: Positive: Other (. Diminished breath sounds bilaterally but no wheezing) Heart Exam: Positive: Rate Normal, Regular Rhythm, Normal S1, Normal S2; Negative: Murmurs, Rubs Telemetry: Positive: No significant arrhythmia Abdomen Exam: Positive: Normal bowel sounds, Soft, Other (morbid central obesity); Negative: Tenderness, Hepatospenomegaly Extremity Exam: Positive: Edema (bilateral LE edema 1+ to midshins), Normal pulses; Negative: Clubbing, Cyanosis Skin Exam: Positive: Nl turgor and temperature; Negative: Breakdown, Lesion Neuro Exam: Positive: Normal Speech, Strength at 5/5 X4 ext, Cranial Nerves 3- 12 NL Assessment /Plan Problems (1) Acute on chronic respiratory failure with hypercapnia Status: Resolved Problem Text: Shortness of breath / acute on chronic hypercapnic hypoxemic respiratory failure: 2/2 COPD exacerbation Patient's respiratory failure is failure is, is recurrent in nature and has a frequent admissions to the hospital requiring requiring noninvasive ventilatory Likely 2/2 acute exacerbation of COPD , unlikely to be bacterial pneumonia with CXR without opacities, no history of increased sputum production, no fever, chills, and chronoic leukocytosis 2/2 steroids Physical examination does not reveal anyappreciated No evidence of any infection. Hence, not started on antibiotics Possible DC Solu-Medrol as started on prednisone and Xopenex and ipratropium as per orders Patient has significantly improved with the current therapy and is off BiPAP now Patient clinically doing very well. She is ready to be discharged to assisted living facility was the bed is available Bilevel level is no longer effectivelonger effective, pt now requires ventilator (2) COPD exacerbation Status: Acute Problem Text: As above (3) DMII (diabetes mellitus, type 2) Status: Chronic Problem Text: Restart by mouth meds and start ISS AC/HS hypoglycemia protocol (4) Hypothyroid Status: Chronic Problem Text: Continue home meds (5) HTN (hypertension) Status: Chronic Problem Text: Continue home meds (6) GERD (gastroesophageal reflux disease) Status: Chronic Problem Text: Continue home meds Plan/VTE VTE Prophylaxis Ordered?: Yes VS, I&O, 24H, Fishbone Vital Signs/I&O Vital Signs Date Time Temp Pulse Resp B/P (MAP) Pulse Ox O2 Delivery O2 Flow Rate FiO2 06/17/19 11:40 76 23 06/17/19 08:18 113/57 06/17/19 06:00 98.0 96 06/16/19 22:00 Nasal Cannula 2.0 06/16/19 04:25 28 I&O- Last 24 Hours up to 6 AM 06/17/19 06:00 Intake Total 600 ml Output Total 2250 ml Balance -1650 ml Laboratory Data 24H LABS Laboratory Tests 2 06/16/19 16:43: Bedside Glucose (Misc Panel) 287H 06/16/19 19:57: Bedside Glucose (Misc Panel) 200H 06/17/19 05:22: Immature Granulocyte % (Auto) 0.7, Neutrophils (%) (Auto) 69.4H, Lymphocytes (%) (Auto) 19.8L, Monocytes (%) (Auto) 9.6H, Eosinophils (%) (Auto) 0.3, Basophils (%) (Auto) 0.2, Neutrophils # (Auto) 8.5, Lymphocytes # (Auto) 2.4, Monocytes # (Auto) 1.2H, Eosinophils # (Auto) 0.0, Basophils # (Auto) 0.0, Nucleated Red Blood Cells % (auto) 0.0, Anion Gap 1L, Glomerular Filtration Rate > 60.0, Calcium Level 8.2L, Magnesium Level 1.6L, Total Bilirubin 0.4, Aspartate Amino Transf (AST/SGOT) 5L, Alanine Aminotransferase (ALT/SGPT) 21, Alkaline Phosphatase 91, Total Protein 5.7L, Albumin 2.7#L, Albumin/Globulin Ratio 0.90L 06/17/19 12:01: Bedside Glucose (Misc Panel) 231H CBC/BMP Laboratory Tests 06/17/19 05:22 JESSICA FOSTER MD Jun 17, 2019 12:33
[2019-06-17] MEDS ORDERED: TUBERCULIN PPD 5 UNITS/0.1 ML ID ONE (13:00)
[2019-06-17] MEDS: ATORVASTATIN 20 MG TAB PO SCH (21:28)
[2019-06-17 22:00] VITALS: BP 113/64
[2019-06-18 06:00] VITALS: BP 132/65
[2019-06-18 06:01] LABS: BASO % 0.2 % (0.0-1.0); EOS # 0.1 10^3/uL (0.0-0.5); EOS % 0.7 % (0.0-3.0); HEMATOCRIT 34.6 % (36.0-47.0); HEMOGLOBIN 10.1 g/dl (12.0-15.5); LYMPH # 2.6 10^3/uL (1.5-5.0); LYMPH % 20.4 % (24.0-44.0); MEAN CORPUSCULAR HEMOGLOBIN 24.6 pg (27.0-33.0); MEAN CORPUSCULAR HGB CONC 29.2 g/dl (32.0-36.5); MEAN CORPUSCULAR VOLUME 84.4 fl (80.0-96.0); MONO # 1.3 10^3/uL (0.0-0.8); NEUTROPHILS # 8.7 10^3/uL (1.5-8.5); NEUTROPHILS % 67.8 % (36.0-66.0); PLATELET COUNT, AUTOMATED 379 10^3/uL (150-450); WHITE BLOOD COUNT 12.9 10^3/uL (4.0-10.0)
[2019-06-18 06:16] LABS: ALBUMIN 2.9 GM/DL (3.2-5.2); ALT/SGPT 21 U/L (12-78); BILIRUBIN,TOTAL 0.5 MG/DL (0.2-1.0); BLOOD UREA NITROGEN 15 MG/DL (7-18); CALCIUM LEVEL 8.1 MG/DL (8.8-10.2); CARBON DIOXIDE LEVEL 45 MEQ/L (21-32); CHLORIDE LEVEL 91 MEQ/L (98-107); CREATININE FOR GFR 0.45 MG/DL (0.55-1.30); GLOMERULAR FILTRATION RATE > 60.0 (>45); GLUCOSE, FASTING 131 MG/DL (70-100); POTASSIUM SERUM 3.4 MEQ/L (3.5-5.1); SODIUM LEVEL 139 MEQ/L (136-145); TOTAL PROTEIN 5.9 GM/DL (6.4-8.2)
[2019-06-18] MEDS: LEVOTHYROXINE 25MCG TABLET (0.025MG) PO SCH (06:20)
[2019-06-18] MEDS: TIOTROPIUM INHALER/CAPSULE (SPIRIVA) INH SCH (07:14)
[2019-06-18] MEDS: LEVALBUTEROL 1.25 MG/0.5 ML CONCENTRATE NEB NEB SCH ×3 (07:15→14:44)
[2019-06-18] MEDS: ADVAIR HFA 230/21MCG INHALER INH SCH (07:15)
[2019-06-18] MEDS: IPRATROPIUM 0.02% SOLN 0.5MG/2.5 ML NEB NEB SCH ×3 (07:15→14:44)
[2019-06-18] MEDS ORDERED: POTASSIUM CHLORIDE 10 MEQ SR TABLET PO ONE (08:00)
[2019-06-18] MEDS: HumaLOG INSULIN (NovoLOG) PER UNIT SC SCH ×2 (08:16→12:28)
[2019-06-18] MEDS: ACETAMINOPHEN 500 MG TAB PO PRN (08:16)
[2019-06-18] MEDS: GABAPENTIN 100 MG CAP PO SCH (08:40)
[2019-06-18] MEDS: ENOXAPARIN 40 MG/0.4 ML SYRINGE (J1650) SC SCH (08:40)
[2019-06-18 08:41] VITALS: BP 132/65
[2019-06-18] MEDS: BISOPROLOL FUM 2.5 MG PER 1/2TAB PO SCH (08:41)
[2019-06-18] MEDS: ASPIRIN 81 MG ENTERIC TAB PO SCH (08:41)
[2019-06-18] MEDS: metFORMIN (GLUCOPHAGE) 1000 MG TABLET PO SCH (08:41)
[2019-06-18] MEDS: ALPRAZolam 0.5 MG TAB PO SCH (08:41)
[2019-06-18] MEDS: PROCHLORPERAZINE 5 MG TAB (S0183) PO SCH (08:41)
[2019-06-18] MEDS: FLUoxetine 20 MG CAP PO SCH (08:42)
[2019-06-18] MEDS: predniSONE 20 MG TAB PO SCH (08:42)
[2019-06-18] MEDS: FUROSEMIDE 40 MG TAB PO SCH (08:42)
[2019-06-18] MEDS: PANTOPRAZOLE 40MG TAB (PROTONIX) PO SCH (08:42)
[2019-06-18] MEDS: SITagliptin 50 MG TAB (JANUVIA) PO SCH (08:42)
[2019-06-18] MEDS: FLUTICASONE PROP 0.05% NASAL SPRAY 16 GM (FLONASE) NARES SCH (08:43)
[2019-06-18] MEDS: POTASSIUM CHLORIDE 10 MEQ SR TABLET PO SCH (08:45)
[2019-06-18] MEDS ORDERED: PRED10TA2 PO (09:49)
[2019-06-18] MEDS ORDERED: LEVA12INH NEB ×2 (09:49)
--- NOTE | 2019-06-18 11:39 | DS.PDOC ---
Discharge Summary General Date of Admission Jun 14, 2019 at 21:39 Date of Discharge 06/18/19 Discharge Summary PROCEDURES PERFORMED DURING STAY: [None]. ADMITTING DIAGNOSES: 1. [Acute on chronic respiratory failure with hypercapnia]. DISCHARGE DIAGNOSES: 1. [Acute on chronic respiratory failure with hypercapnia, COPD, diabetes mellitus, hypertension, GERD]. COMPLICATIONS/CHIEF COMPLAINT: Acute On Chronic Resp Failure W/Hypercapnia;Copd. HISTORY OF PRESENT ILLNESS: [63-year-old W with COPD on 2L O2 and chronic steroids, SUYAPA and possible OHS? on BiPAP PRN and QHS, NIDDM2, CAD (Hx of VT), HTN, hyperlipidemia, hypothyroidism, bipolar disorder, GERD, active smoker, recently admitted for COPD exacerbation who returns to the ED via EMS with complaints of worsening shortness of breath, without any complaints of gabriele chest pain, palpitations, fever, chills or increased sputum production. In the ED intial vitals were BP 184/87, 98% on 6L? then later on 2L and eventually placed on BiPAP 16/6 for increased somnolence that improved, HR 97, RR30. She was initially placed on 6L NC, later reduced to 2L NC after VBG showed 12/21/69/132, and was noted to be increased somnolent and was eventually placed on BiPAP 16/6 @ 40% with improvement of her somnolence and answered all questions appropriately on evaluation by hospitalist. She was given dexamethasone 20 and another 10mg later and duoneb x 1. Initial work up was notable for negative troponin, unremarkable BNP 309, normal TSH, CXR with chronic emphysematous changes without gabriele opacities or effusions, WBC 18, Hgb 11.3, Hgb 41.7, platelets 481, na 139, K 3.8, Bicarb 44, Cr 0.53, normal LFTs. She is now being admitted to the ICU for acute on chronic hypercarbic hypoxemic respiratory failure likely 2/2 COPD exacerbation for BiPAP and IV steroids.]. HOSPITAL COURSE: [ Acute on chronic respiratory failure with hypercapnia Patient was admitted with Shortness of breath / acute on chronic hypercapnic hypoxemic respiratory failure: 2/2 COPD exacerbation Condition initially was admitted to ICU. Hypaque care and she was seen by pulmonary physician as well Patient's respiratory failure is failure is, is recurrent in nature and has a frequent admissions to the hospital requiring requiring noninvasive ventilatory Likely 2/2 acute exacerbation of COPD , unlikely to be bacterial pneumonia with CXR without opacities, no history of increased sputum production, no fever, chills, and chronoic leukocytosis 2/2 steroids She responded very well to BiPAP therapy as well as nebulizer with Xopenex and ipratropium and Solu-Medrol therapy, which was significantly tapered off and patient was started on prednisone. No evidence of any infection. Hence, not started on antibiotics Apparently seems like patient is not responded bilevel respiratory support. She might need support per respirator for which Suze holly was contacted and the requested. Patient initially wanted to go to assisted living facility, but now she has changed her mind and she was to go home. We will arrange home care therapy and discharge patient home on all the current medications, as well as prednisone And has been advised to follow with Dr. Magana as an outpatient for pulmonary follow-up. DISCHARGE MEDICATIONS: Please see below. ALLERGIES: Please see below. PHYSICAL EXAMINATION ON DISCHARGE: VITAL SIGNS: Please see below. GENERAL: [Within normal limits] HEENT: FAUSTINO. Extraocular muscles intact NECK: [Supple] CARDIOVASCULAR EXAMINATION: [S1, S2, regular] RESPIRATORY EXAMINATION: [Clear to A&P] ABDOMINAL EXAMINATION: [Benign] EXTREMITIES: [No clubbing, cyanosis, edema] SKIN: [Normal] NEUROLOGICAL EXAMINATION: [. No focal motor sensory deficit] PSYCHIATRIC EXAMINATION: [Normal] LABORATORY DATA: Please see below. IMAGING: [Chest x-ray:] The lung cherry are clear. The cardiac size is normal. The wesly, mediastinum, and skeletal structures are unremarkable. Impression: Negative portable chest. PROGNOSIS: [good] ACTIVITY: [As tolerated]. DIET: [As tolerated] DISCHARGE PLAN: [Follow with Dr. Magana as an outpatient] DISPOSITION: . DISCHARGE INSTRUCTIONS: 1. [Discharge instructions]. ITEMS TO FOLLOWUP ON ON OUTPATIENT: 1. [Follow with Dr. Magana as an outpatient]. DISCHARGE CONDITION: [Stable]. TIME SPENT ON DISCHARGE: 38 minutes. Vital Signs/I&Os Vital Signs Date Time Temp Pulse Resp B/P (MAP) Pulse Ox O2 Delivery O2 Flow Rate FiO2 06/18/19 09:00 2.0 06/18/19 08:41 78 132/65 06/18/19 06:00 96.4 17 94 Nasal Cannula 06/16/19 04:25 28 I&O- Last 24 Hours up to 6 AM 06/18/19 06:00 Intake Total 1820 ml Output Total 1200 ml Balance 620 ml Laboratory Data Labs 24H Laboratory Tests 2 06/17/19 12:01: Bedside Glucose (Misc Panel) 231H 06/17/19 16:58: Bedside Glucose (Misc Panel) 276H 06/17/19 21:18: Bedside Glucose (Misc Panel) 252H 06/18/19 05:27: Immature Granulocyte % (Auto) 0.9, Neutrophils (%) (Auto) 67.8H, Lymphocytes (%) (Auto) 20.4L, Monocytes (%) (Auto) 10.0H, Eosinophils (%) (Auto) 0.7, Basophils (%) (Auto) 0.2, Neutrophils # (Auto) 8.7H, Lymphocytes # (Auto) 2.6, Monocytes # (Auto) 1.3H, Eosinophils # (Auto) 0.1, Basophils # (Auto) 0.0, Nucleated Red Blood Cells % (auto) 0.0, Anion Gap 3L, Glomerular Filtration Rate > 60.0, Calcium Level 8.1L, Total Bilirubin 0.5, Aspartate Amino Transf (AST/SGOT) 5L, Alanine Aminotransferase (ALT/SGPT) 21, Alkaline Phosphatase 99, Total Protein 5.9L, Albumin 2.9L, Albumin/Globulin Ratio 0.97L 06/18/19 11:33: Bedside Glucose (Misc Panel) 165H CBC/BMP Laboratory Tests 06/18/19 05:27 FSBS Laboratory Tests Test 06/17/19 12:01 06/17/19 16:58 06/17/19 21:18 06/18/19 11:33 Range/Units Bedside Glucose (Misc Panel) 231 276 252 165 80-115 MG/DL Discharge Medications Scheduled Alprazolam (Alprazolam) 0.5 Mg Tablet, 0.5 MG PO BID, (Reported) Aspirin (Aspirin EC) 81 Mg Tabec, 81 MG PO DAILY, (Reported) Atorvastatin Calcium (Lipitor) 80 Mg Tab, 80 MG PO QHS, (Reported) Bisoprolol Fumarate (Bisoprolol Fumarate) 5 Mg Tab, 2.5 MG PO DAILY, (Reported) Ergocalciferol (Vitamin D2) (Drisdol) 1,250 Mcg Capsule, 50,000 UNITS PO QWEEK, (Reported) FRIDAYS Fluoxetine HCl (Fluoxetine HCl) 20 Mg Tablet, 20 MG PO DAILY, (Reported) Fluticasone Propion/Salmeterol (Advair Hfa 230-21 Mcg Inhaler) 12 Gm Hfa.aer.ad, 2 PUFF INH BID, (Reported) Fluticasone Propionate (Flonase Allergy Relief) 9.9 Ml [place].susp, 2 SPR NARES DAILY, (Reported) Furosemide (Furosemide) 40 Mg Tablet, 40 MG PO BID, (Reported) TAKES AM/AFTERNOON Gabapentin (Gabapentin) 800 Mg Tab, 800 MG PO BID, (Reported) Levalbuterol Hydrochloride (Xopenex Concentrate) 1.25 Mg/0.5 Ml Vial.neb, 1.25 MG NEB RQID Levothyroxine Sodium (Levoxyl) 25 Mcg Tab, 25 MCG PO DAILY, (Reported) Metformin HCl (Metformin HCl) 1,000 Mg Tablet, 1,000 MG PO BID, (Reported) Pantoprazole Sodium (Pantoprazole Sodium) 40 Mg Tablet.dr, 40 MG PO DAILY, (Rep orted) Potassium Chloride (Potassium Chloride) 8 Meq Tablet.er, 8 MEQ PO BID, (Reported) Prednisone (Prednisone) 5 Mg Tablet, 5 MG PO DAILY, (Reported) Prednisone (Prednisone) 10 Mg Tablet, 10 MG PO TAPER Take 4 tabs daily x 3 days, then 3 tabs daily x 3 days, then 2 tabs daily x 3 days, then 1 tab daily x 3 days and stop Prochlorperazine (Prochlorperazine Maleate) 5 Mg Tablet, 5 MG PO DAILY, (Reported) Sitagliptin Phosphate (Januvia) 100 Mg Tablet, 100 MG PO DAILY, (Reported) Tiotropium [place] (Spiriva) 18 Mcg Cap.w.dev, 18 MCG INH DAILY, (Reported) Scheduled PRN Acetaminophen (Tylenol Extra Strength) 500 Mg Tablet, 1,000 MG PO Q8H PRN for PAIN, (Reported) Albuterol Sulfate (Ventolin Hfa) 108 Mcg/Act Aer, 2 PUFFS INH Q4H PRN for SHORTNESS OF BREATH, (Reported) Hydrocodone/Acetaminophen (Holliday 5-325 Tablet) 1 Each Tablet, 1 TAB PO BID PRN for PAIN, (Reported) Ipratropium/Albuterol Sulfate (Iprat-Albut 0.5-3(2.5) mg/3 ml) 3 Ml Ampul.neb, 1 VIAL INH QID PRN for SHORTNESS OF BREATH, (Reported) Levalbuterol Hydrochloride (Xopenex Concentrate) 1.25 Mg/0.5 Ml Vial.neb, 1.25 MG NEB Q4HP PRN for SHORTNESS OF BREATH Nystatin (Nystatin Powder) 15 Gm Powder, 1 DOSE TOP QHS PRN for ITCH/RASH, (Reported) USES UNDER BREASTS Allergies Coded Allergies: Cat Dander (Verified Allergy, Unknown, 06/14/19) Dust (Verified Allergy, Unknown, 06/14/19) JESSICA FOSTER MD Jun 18, 2019 11:39
[2019-06-18] MEDS: NORCO, ANEXSIA 5/325MG TABLET (HYDROcodone/ACETAMINOPHEN) PO PRN (15:06)
[2019-06-19] MEDS ORDERED: PPD DOCUMENTATION ENTRY MISC XX ONE (13:00)
== END 2019-06-18 16:17 | disposition home or self-care (01) | DRG 189 ==
LOC: EDBD 18:33 → M ED 18:33 → M ED INP 21:39 → ENRESERV 22:48 → M ICU 23:37 → M MSPAV 06-16 10:38
PROVIDERS: ADMIT Internal Medicine; ATTEND Internal Medicine
DX: J96.22 Acute and chronic respiratory failure with hypercapnia (principal); J44.1 Chronic obstructive pulmonary disease with (acute) exacerbation; J96.21 Acute and chronic respiratory failure with hypoxia; Z99.81 Dependence on supplemental oxygen; Z79.51 Long term (current) use of inhaled steroids; G47.33 Obstructive sleep apnea (adult) (pediatric); E11.42 Type 2 diabetes mellitus with diabetic polyneuropathy; I25.10 Atherosclerotic heart disease of native coronary artery without angina pectoris; I25.2 Old myocardial infarction; I10 Essential (primary) hypertension; E78.5 Hyperlipidemia, unspecified; E03.9 Hypothyroidism, unspecified; F31.9 Bipolar disorder, unspecified; K21.9 Gastro-esophageal reflux disease without esophagitis; F17.210 Nicotine dependence, cigarettes, uncomplicated; Z79.82 Long term (current) use of aspirin; Z79.84 Long term (current) use of oral hypoglycemic drugs; Z79.52 Long term (current) use of systemic steroids; Z91.09 Other allergy status, other than to drugs and biological substances; F41.9 Anxiety disorder, unspecified; Z91.19 Patient's noncompliance with other medical treatment and regimen

== ENCOUNTER 2019-10-21 13:11 | Outpatient (RCR) | payer MEDICARE, MEDICAID ==
[~2019-10-21 13:11] MED LIST changes: +ATOR80TA59 PO; +CYCL-707 PO; -CYCL10TA PO; -FLUO20CA19 PO; +FLUO20CA22 PO; +IPRA0.00 IN; +LEVA12INH INH; +LEVA12INH NEB; +LEVO25TA5 PO; -LISI-1046 PO; +LISI2.5T2 PO; +MOBI4TAB PO; +NORC1TAB7 PO; +PANT-23 PO; +POTA8CAP10 PO; +VITA50005 PO
== END 2019-10-23 ==
LOC: M PT 13:11
PROVIDERS: ATTEND Internal Medicine
DX: Z51.89 Encounter for other specified aftercare (principal); J96.11 Chronic respiratory failure with hypoxia; J96.12 Chronic respiratory failure with hypercapnia; J44.9 Chronic obstructive pulmonary disease, unspecified; Z71.6 Tobacco abuse counseling; Z99.81 Dependence on supplemental oxygen; F17.210 Nicotine dependence, cigarettes, uncomplicated

== ENCOUNTER → 2019-11-08 | Outpatient (REF) | payer MEDICARE, MEDICAID ==
[2019-11-08 15:23] LABS: APPEARANCE, URINE CLEAR (CLEAR); BACTERIA, URINE AUTO NEGATIVE (NEGATIVE); BILIRUBIN, URINE AUTO NEGATIVE (NEGATIVE); BLOOD, URINE BLOOD NEGATIVE (NEGATIVE); COLOR, URINE YELLOW (YELLOW); GLUCOSE, URINE (UA) AUTO NEGATIVE (NEGATIVE); KETONE, URINE AUTO NEGATIVE (NEGATIVE); LEUKOCYTE ESTERASE, URINE AUTO NEGATIVE (NEGATIVE); NITRITE, URINE AUTO NEGATIVE (NEGATIVE); PROTEIN, URINE AUTO NEGATIVE (NEGATIVE); RBC, URINE AUTO 0 /HPF (0-3); SPECIFIC GRAVITY URINE AUTO 1.008 (1.002-1.035); SQUAMOUS EPITHELIAL CELL UR AU 2 /HPF (0-6); UROBILINOGEN, URINE AUTO 0.2 mg/dL (0.0-2.0); WBC, URINE AUTO 1 /HPF (0-3)
== END ==
PROVIDERS: ATTEND Internal Medicine
DX: R10.9 Unspecified abdominal pain (principal); M54.9 Dorsalgia, unspecified

== ENCOUNTER → 2019-11-29 | Outpatient (REF) | payer MEDICARE, MEDICAID ==
[2019-11-29 10:29] LABS: BLOOD UREA NITROGEN 17 MG/DL (7-18); CALCIUM LEVEL 8.4 MG/DL (8.8-10.2); CARBON DIOXIDE LEVEL 40 MEQ/L (21-32); CHLORIDE LEVEL 94 MEQ/L (98-107); CREATININE FOR GFR 0.65 MG/DL (0.55-1.30); GLOMERULAR FILTRATION RATE > 60.0 (>45); GLUCOSE, FASTING 112 MG/DL (70-100); NT-PRO BNP 78 PG/ML (<125); POTASSIUM SERUM 3.1 MEQ/L (3.5-5.1); SODIUM LEVEL 141 MEQ/L (136-145)
== END ==
PROVIDERS: ATTEND Internal Medicine
DX: Z79.899 Other long term (current) drug therapy (principal)

== ENCOUNTER 2019-12-05 10:36 | Inpatient (IN) | payer MEDICARE, MEDICAID ==
[~2019-12-05] VITALS: Ht 165.1 cm; Wt 104.3 kg
[~2019-12-05 10:36] MED LIST changes: -IPRA0.00 IN
[2019-12-05 11:16] LABS: VENOUS HCO3 39.5 MEQ/L (23.0-27.0); VENOUS O2 SATURATION 95.6 % (60.0-80.0); VENOUS PARTIAL PRESSURE CO2 91.4 mmHg (38.0-50.0); VENOUS PH 7.253 UNITS (7.330-7.430); VENOUS STANDARD HCO3 32.7 MEQ/L; VENOUS TOTAL CO2 42.3 MEQ/L (24.0-28.0)
[2019-12-05 11:21] LABS: BASO # 0.1 10^3/uL (0.0-0.2); BASO % 0.5 % (0.0-1.0); EOS # 0.2 10^3/uL (0.0-0.5); EOS % 1.3 % (0.0-3.0); HEMATOCRIT 39.9 % (36.0-47.0); HEMOGLOBIN 11.8 g/dl (12.0-15.5); LYMPH # 2.9 10^3/uL (1.5-5.0); LYMPH % 18.9 % (24.0-44.0); MEAN CORPUSCULAR HEMOGLOBIN 25.9 pg (27.0-33.0); MEAN CORPUSCULAR HGB CONC 29.6 g/dl (32.0-36.5); MEAN CORPUSCULAR VOLUME 87.5 fl (80.0-96.0); MONO # 1.4 10^3/uL (0.0-0.8); MONO % 9.5 % (0.0-5.0); NEUTROPHILS # 10.4 10^3/uL (1.5-8.5); NEUTROPHILS % 68.5 % (36.0-66.0); PLATELET COUNT, AUTOMATED 434 10^3/uL (150-450); RED BLOOD COUNT 4.56 10^6/uL (4.00-5.40); WHITE BLOOD COUNT 15.2 10^3/uL (4.0-10.0)
[2019-12-05 11:55] LABS: ALBUMIN 3.4 GM/DL (3.2-5.2); ALT/SGPT 30 U/L (12-78); BILIRUBIN,DIRECT < 0.1 MG/DL (0.0-0.2); BILIRUBIN,TOTAL 0.2 MG/DL (0.2-1.0); CK-MB VALUE MASS 1.5 NG/ML (<3.6); CPK CREATINE PHOSPHOKINASE 118 U/L (26-192); MB/CK RELATIVE INDEX 1.27 (< OR =4); NT-PRO BNP 89 PG/ML (<125); THYROID STIMULATING HORMONE 0.873 uIU/ML (0.358-3.740); THYROXINE (T4) 8.2 UG/DL (4.5-12.0); TROPONIN I < 0.02 NG/ML (< 0.10)
[2019-12-05] MEDS ORDERED: IPRATROPIUM 0.5MG/ALBUTEROL 2.5MG INH SOL UD 3ML (DUONEB) NEB PRN (12:45)
[2019-12-05] MEDS ORDERED: ALBUTEROL SULFATE 2.5 MG/0.5 ML INH NEB SOLN INH ONE (12:45)
[2019-12-05] MEDS ORDERED: DOXYCYCLINE HYCLATE 100 MG in D5W MINI-BAG PLUS 100 ML IV SCH (13:00)
[2019-12-05] MEDS ORDERED: VITAD1000T PO (13:29)
[2019-12-05] MEDS ORDERED: MOM30SS PO (13:29)
[2019-12-05] MEDS ORDERED: GABA600T4 PO (13:29)
[2019-12-05] MEDS ORDERED: FURO80TA2 PO (13:29)
[2019-12-05] MEDS ORDERED: ASPE16CR TOP (13:29)
[2019-12-05] MEDS ORDERED: POTA20TA6 PO (13:29)
[2019-12-05] MEDS ORDERED: MEDR4PAK PO (13:29)
[2019-12-05] MEDS ORDERED: QC A650T3 PO (13:29)
[2019-12-05] MEDS ORDERED: GOLDPOW2 TOP (13:46)
[2019-12-05] MEDS ORDERED: TRAD5TAB PO (13:46)
[2019-12-05] MEDS ORDERED: ADV250INH INH (13:46)
[2019-12-05] MEDS ORDERED: NON-325T5 PO (13:46)
[2019-12-05] MEDS ORDERED: POTA8CAP10 PO (13:46)
[2019-12-05] MEDS ORDERED: GLIP5TAB20 PO (13:46)
[2019-12-05] MEDS ORDERED: VITMTA PO (13:46)
[2019-12-05] MEDS ORDERED: INCR1INH INH (13:46)
[2019-12-05] MEDS ORDERED: OMEP1CAP73 PO (13:46)
--- NOTE | 2019-12-05 14:34 | REP ---
CHEST, SINGLE VIEW: Single view of the chest is performed and compared to a prior studies, most recently 12/02/2019. Heart size is upper limits of normal. Mediastinal silhouette is unchanged. There is underlying mild bibasilar interstitial fibrosis. There may be mild superimposed interstitial edema in the lung bases. IMPRESSION: Possible mild bibasilar interstitial edema. Electronically Signed by Brigido Barcenas MD 12/06/2019 11:13 P
[2019-12-05 15:30] VITALS: BP 158/80
[2019-12-05] MEDS: ENOXAPARIN 40MG/0.4ML SYRINGE (J1650 PER 10MG) SC SCH (16:02)
--- NOTE | 2019-12-05 16:32 | ECGEPIP ---
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
[2019-12-05] MEDS: IPRATROPIUM 0.5MG/ALBUTEROL 2.5MG INH SOL UD 3ML (DUONEB) NEB SCH ×3 (16:40→23:41)
[2019-12-05] MEDS: methylPREDNISolone 125MG 2ML VIAL IV SCH ×2 (17:24→23:25)
[2019-12-05] MEDS: DOXYCYCLINE HYCLATE 100 MG in D5W MINI-BAG PLUS 100 ML IV SCH (17:25)
[2019-12-05 18:47] LABS: HEMATOCRIT 37.1 % (36.0-47.0); MEAN CORPUSCULAR HGB CONC 29.6 g/dl (32.0-36.5); MEAN CORPUSCULAR VOLUME 87.7 fl (80.0-96.0); PLATELET COUNT, AUTOMATED 399 10^3/uL (150-450); RED BLOOD COUNT 4.23 10^6/uL (4.00-5.40); WHITE BLOOD COUNT 15.7 10^3/uL (4.0-10.0)
[2019-12-05 18:53] LABS: CK-MB VALUE MASS 1.7 NG/ML (<3.6); CPK CREATINE PHOSPHOKINASE 94 U/L (26-192); MB/CK RELATIVE INDEX 1.81 (< OR =4); TROPONIN I < 0.02 NG/ML (< 0.10)
[2019-12-05 20:00] VITALS: BP 154/84
[2019-12-05] MEDS ORDERED: LEVALBUTEROL 1.25 MG/0.5 ML CONCENTRATE NEB INH PRN (21:30)
[2019-12-05] MEDS ORDERED: ALBUTEROL 90 MCG/ACT 8GM HFA INHALER INH PRN (21:30)
[2019-12-05] MEDS ORDERED: methylPREDNISolone 4 MG TAB PO SCH (21:30)
[2019-12-05] MEDS ORDERED: ACETAMINOPHEN 650MG ER TAB (TYLENOL ARTHRITIS) PO PRN (21:30)
[2019-12-05] MEDS ORDERED: NYSTATIN 100,000 UNITS/GM TOPICAL PWD 15 GM TOP PRN (21:30)
[2019-12-05] MEDS ORDERED: MOM 30ML SUSPENSION UDC PO PRN (21:30)
[2019-12-05] MEDS: GABAPENTIN 300 MG CAP PO SCH (21:47)
[2019-12-05] MEDS: ALPRAZolam 0.5 MG TAB PO PRN (21:47)
[2019-12-05] MEDS: NORCO, ANEXSIA 5/325MG TABLET (HYDROcodone/ACETAMINOPHEN) PO PRN (21:48)
[2019-12-06] VITALS: BP 130/71
[2019-12-06 00:40] LABS: HEMATOCRIT 36.3 % (36.0-47.0); HEMOGLOBIN 10.7 g/dl (12.0-15.5); MEAN CORPUSCULAR HEMOGLOBIN 25.8 pg (27.0-33.0); MEAN CORPUSCULAR HGB CONC 29.5 g/dl (32.0-36.5); MEAN CORPUSCULAR VOLUME 87.5 fl (80.0-96.0); PLATELET COUNT, AUTOMATED 395 10^3/uL (150-450); RED BLOOD COUNT 4.15 10^6/uL (4.00-5.40); WHITE BLOOD COUNT 14.6 10^3/uL (4.0-10.0)
[2019-12-06 01:02] LABS: CK-MB VALUE MASS 1.5 NG/ML (<3.6); CPK CREATINE PHOSPHOKINASE 79 U/L (26-192); TROPONIN I < 0.02 NG/ML (< 0.10)
[2019-12-06] MEDS: IPRATROPIUM 0.5MG/ALBUTEROL 2.5MG INH SOL UD 3ML (DUONEB) NEB SCH ×5 (03:36→20:11)
[2019-12-06 04:00] VITALS: BP 131/67
[2019-12-06] MEDS: methylPREDNISolone 125MG 2ML VIAL IV SCH ×3 (05:15→18:21)
[2019-12-06] MEDS: DOXYCYCLINE HYCLATE 100 MG in D5W MINI-BAG PLUS 100 ML IV SCH ×2 (05:15→16:52)
[2019-12-06] MEDS: LEVOTHYROXINE 25MCG TABLET (0.025MG) PO SCH (06:19)
[2019-12-06] MEDS: glipiZIDE XL 5 MG TABCR PO SCH ×2 (06:19→12:20)
[2019-12-06 06:52] LABS: HEMATOCRIT 37.8 % (36.0-47.0); HEMOGLOBIN 11.2 g/dl (12.0-15.5); MEAN CORPUSCULAR HEMOGLOBIN 25.6 pg (27.0-33.0); MEAN CORPUSCULAR HGB CONC 29.6 g/dl (32.0-36.5); MEAN CORPUSCULAR VOLUME 86.5 fl (80.0-96.0); PLATELET COUNT, AUTOMATED 411 10^3/uL (150-450); RED BLOOD COUNT 4.37 10^6/uL (4.00-5.40)
[2019-12-06 07:10] LABS: VENOUS BASE EXCESS 4.3 (-2.0-2.0); VENOUS HCO3 30.6 MEQ/L (23.0-27.0); VENOUS O2 SATURATION 94.3 % (60.0-80.0); VENOUS PARTIAL PRESSURE CO2 54.3 mmHg (38.0-50.0); VENOUS PARTIAL PRESSURE O2 79.7 mmHg (30.0-50.0); VENOUS PH 7.369 UNITS (7.330-7.430); VENOUS STANDARD HCO3 28.2 MEQ/L; VENOUS TOTAL CO2 32.3 MEQ/L (24.0-28.0)
[2019-12-06 07:21] LABS: BLOOD UREA NITROGEN 19 MG/DL (7-18); CALCIUM LEVEL 9.4 MG/DL (8.8-10.2); CARBON DIOXIDE LEVEL 30 MEQ/L (21-32); CHLORIDE LEVEL 101 MEQ/L (98-107); GLOMERULAR FILTRATION RATE > 60.0 (>45); GLUCOSE, FASTING 286 MG/DL (70-100); POTASSIUM SERUM 4.1 MEQ/L (3.5-5.1); SODIUM LEVEL 140 MEQ/L (136-145)
[2019-12-06 08:00] VITALS: BP 140/86
[2019-12-06] MEDS: ENOXAPARIN 40MG/0.4ML SYRINGE (J1650 PER 10MG) SC SCH (08:58)
[2019-12-06] MEDS: MELOXICAM (MOBIC) 7.5 MG TAB PO SCH ×2 (08:59→18:21)
[2019-12-06] MEDS: BISOPROLOL FUM 2.5 MG PER 1/2TAB PO SCH (09:00)
[2019-12-06] MEDS: FUROSEMIDE 80 MG TAB PO SCH (09:00)
[2019-12-06] MEDS: GABAPENTIN 300 MG CAP PO SCH ×3 (09:01→20:48)
[2019-12-06] MEDS: MULTIVITAMINS/MINERALS THERAP 1 TAB PO SCH (09:01)
[2019-12-06] MEDS: FLUoxetine 20 MG CAP PO SCH (09:02)
[2019-12-06] MEDS: ATORVASTATIN 20 MG TAB PO SCH (09:02)
[2019-12-06] MEDS: ALPRAZolam 0.5 MG TAB PO PRN ×2 (09:02→20:48)
[2019-12-06] MEDS: POTASSIUM CHLORIDE 10 MEQ SR TABLET PO SCH (09:02)
[2019-12-06] MEDS: OMEPRAZOLE 20 MG CAP PO SCH (09:03)
--- NOTE | 2019-12-06 09:41 | HPE ---
DATE OF ADMISSION: 12/05/2019 CHIEF COMPLAINT: Shortness of breath. HISTORY OF PRESENT ILLNESS: This is a 63-year-old female with a history of end-stage chronic obstructive pulmonary disease (COPD) with poor prognosis with chronic hypoxic and hypercapnic respiratory failure, oxygen dependent on two liters at all times and prednisone dependent 10 mg daily, lives at [facility] with a history of obstructive sleep apnea (SUYAPA) on chronic BiPAP 07/11, non-insulin dependent diabetes, coronary artery disease, history of myocardial infarction (HI), hyperlipidemia, hypothyroidism, bipolar, hypertension, reflux, previous history of smoking. She was in her usual state of health of walking just 5-10 feet from bed to the commode with a walker. She presented to the emergency room with worsening dyspnea on exertion and eventually had collapsed. The patient had been having worsening shortness of breath for the last 2 weeks. Says she is compliant with her Lasix but has had a 40-pound weight gain since June that she attributed to steroids and not being able to exercise due to COVID. Patient, however, has a baseline of about 10-15 feet when she walks. On Thursday, patient noted that she is unable to breath by using her BiPAP and oxygen at home. No fever or chills. She has a dry cough. She complains of chest pressure when she takes a deep breath. She also complains of polyuria since she has been on Lasix and urinary frequency but no dysuria, urgency. The patient said that she has chronic back pain which is unchanged. She also has some epigastric discomfort that radiates to her back but has had a prior history of cholecystectomy. Patient says that she quit using cigarettes but she did smoke one pack a day for about 45 years. Still a FULL CODE. Patient otherwise denies any palpitations or lightheadedness. She is awake, alert, oriented able to provide a history. The venous gas on arrival was 7.2, pH 91, O2 95. Arterial blood gas was pH of 7.3. CO2 level of 69.9, O2 of 154. Chest x-ray was negative and an emergency room EKG has no acute ischemic ST/T wave changes and troponin was negative. Hospitalist was asked to admit the patient for acute on chronic COPD exacerbation. PAST MEDICAL HISTORY: 1. Chronic hypoxic/hypercapnic respiratory failure, oxygen dependent on 2 liters and prednisone dependent 10 mg daily 2. Obstructive sleep apnea on BiPAP /. 3. Non-insulin diabetes. 4. Coronary artery disease. 5. Myocardial infarction. 6. Hyperlipidemia. 7. Hypothyroidism. 8. Bipolar disorder. 9. Hypertension. 10. Reflux. 11. 45 year history of smoking. 12. Advanced COPD on chronic steroids. 13. Atherosclerotic heart disease. 14. Remote history of HI, details unknown. 15. Depression. PAST SURGICAL HISTORY: Appendectomy. Tonsillectomy. Breast surgery. Exploratory laparotomy. Cholecystectomy. SOCIAL HISTORY: Smoked a pack a day for 45 years. Patient has quit. No alcohol use. 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 Her healthcare proxy is Ina her daughter, phone [phone]. She is a FULL CODE. Cardiopulmonary resuscitation (CPR) and intubation. FAMILY HISTORY: Father at 44 because due to CAD/HI. Mother at 44 due to lung cancer was a smoker. CAD as well. Sister at the age of 45 of unknown medical problems and unknown cause of . REVIEW OF SYSTEMS: Per history of present illness (HPI). 12-point system otherwise negative. PHYSICAL EXAMINATION: Vital signs on arrival was blood pressure 214/93, repeat pressure after oxygen was given was 129/70. Temperature 98.3, pulse 79, respiratory rate 25, 15 liters of oxygen, 40% FiO2 Ventimask. Generally patient is awake, alert, oriented times three answering questions appropriately. Mild use of respiratory accessory muscles. 7-8 word conversational dyspnea. Patient has no cyanosis. No pallor. No tracheal deviation. Pupils are round and reactive. Extraocular muscles intact. She has no icterus. No jaundice. No jugular venous distention (JVD) or thyromegaly. Dry mucous membranes with chapped lips. Lungs have prolonged expiratory phase and bilateral wheezing. Air entry is equal bilaterally. No kyphoscoliosis. Heart: S1, S2. Sinus rhythm. No murmurs, rubs or gallops. Abdomen is obese, soft. Tender epigastric and right upper quadrant. No rebound or guarding. No costovertebral angle (CVA) tenderness. Patient has no hepatosplenomegaly. No abdominal bruit. Extremities: No pitting edema. No cyanosis. No clubbing LABORATORY DATA: White count 15.2, hemoglobin 11, hematocrit 39, platelet count 434. Sodium 140, potassium 4.1, chloride 94, bicarbonate 40, BUN 17, creatinine 0.8, ionized calcium 4.7, glucose 112, lactic acid 0.87, arterial blood gas: pH 7.3, CO2 69.9, bicarbonate 39.5. EKG: Sinus rhythm ventricular rate of 80. No acute ST/T wave changes. Chest x-ray pending official report. ASSESSMENT/PLAN: This is a 63-year-old with end-stage COPD, chronic hypoxic and hypercapnic respiratory failure. Oxygen and steroid dependent, usually on 2 liters of oxygen at all times and BiPAP in the evenings 07/11, type 2 diabetes, CAD, HI, hyperlipidemia, hypothyroidism, bipolar disorder, reflux with 45-pack year history of smoking and remains a FULL CODE. Presented to the emergency room with a 2-week history of worsening shortness of breath, worsen on Thursday morning last week, unable to breath despite using her BiPAP. Patient said that she is compliant with her medication and has been taking her prednisone. She otherwise denies any fever or chills but has had a dry cough. Patient is admitted for acute on chronic obstructive pulmonary disease exacerbation as an inpatient for 2 midnights. IMPRESSION: 1. Acute on chronic hypoxic and hypercapnic respiratory failure due to COPD exacerbation. Patient has been given Ventimask, FiO2 of 40%, 15 liters of oxygen. She has been given IV Solu-Medrol, nebulizer treatments every 6 hours and every hour as needed. IV doxycycline. No fever or chills. Will check urinalysis due to complaints of oliguria, although she is on Lasix. At this time, she will be placed in intensive care unit (ICU) since she is a FULL CODE and end-stage. Will monitor mental status changes and repeat ABG as needed if the patient develops worsening mentation due to hypercapnic failure. 2. Acute chronic obstructive pulmonary disease (COPD) exacerbation on IV Solu-Medrol nebulizer treatment, doxycycline. Keep oxygen saturation at 88-92%. Titrate oxygen to baseline if possible. Pulmonology has been consulted in case patient worsens clinically. Patient is a FULL CODE and wants to be intubated and to use BiPAP with her home settings. 3. Obstructive sleep apnea on chronic BiPAP to be managed by pulmonary. Patient appears to be improved with CO2 level in the 60s, which is most likely her baseline. 4. History of coronary artery disease myocardial infarction with complaints of epigastric discomfort. Patient does have a history of reflux but will cycle cardiac markers every 6 hours to rule out acute coronary syndrome. Her cardiac risk factors are hypertension, hypercholesterolemia, prior history of smoking. She did have hypertension, hyperlipidemia, diabetes, history of smoking and had a remote history of HI. EKG, however, remains stable with sinus rhythm with no acute ST/T wave changes. Troponin is negative. 5. Hypothyroidism: May resume on home dose of Synthroid. Check TSH in the morning. 6. Hyperlipidemia: Check cardiac risk marker in the morning. Lipid panel. Adjust medications as needed on chronic atorvastatin 80 mg daily. 7. Hypertension: On bisoprolol which may be resumed. 8. Depression: On fluoxetine. 9. Cor pulmonale with probable pulmonary hypertension: Continue on Lasix 40 mg twice a day. 10. Chronic back pain on Neurontin. Monitor for worsening respiratory status. 11. Type 2 diabetes: Continue on consistent carbohydrate diet. Insulin sliding scale, fingersticks every morning and nightly. CODE STATUS: Patient is a full code.
[2019-12-06] MEDS: NORCO, ANEXSIA 5/325MG TABLET (HYDROcodone/ACETAMINOPHEN) PO PRN ×2 (10:15→20:48)
[2019-12-06 12:00] VITALS: BP 139/92
[2019-12-06] MEDS: VITAMIN D 1,000 INTERNATIONAL UNITS TABLET PO SCH (12:21)
[2019-12-06 12:54] LABS: HEMATOCRIT 36.5 % (36.0-47.0); HEMOGLOBIN 10.9 g/dl (12.0-15.5); MEAN CORPUSCULAR HEMOGLOBIN 25.7 pg (27.0-33.0); MEAN CORPUSCULAR HGB CONC 29.9 g/dl (32.0-36.5); MEAN CORPUSCULAR VOLUME 86.1 fl (80.0-96.0); PLATELET COUNT, AUTOMATED 387 10^3/uL (150-450); RED BLOOD COUNT 4.24 10^6/uL (4.00-5.40); WHITE BLOOD COUNT 18.3 10^3/uL (4.0-10.0)
--- NOTE | 2019-12-06 13:57 | IPN ---
DATE: 12/06/2019 I attended Constance Zavala here in the progressive care unit. The patient has been examined and chart reviewed. I spoke at length with her. She is feeling better. She was admitted with an exacerbation most likely of a combination of her lung disease and heart failure. On arrival, her blood gas done venous sample shows a pH of 7.253, pCO2 of 91, and pO2 of 95. She was placed on a noninvasive support. Repeat venous blood gas done this morning at 0706 hours on her usual bilevel positive airway pressure (BiPAP) settings shows a pH of 7.369, pCO2 of 54.3, and a pO2 of 79.9. Maximum temperature (T-max) overnight 97.9, blood pressure 130 over 140s, heart rate generally in the 80s, respiratory rate 16-20 without accessory muscle use. She has diuresed a little over a liter and half since she has been here. Medication list has been reviewed. She is on 80 mg of IV Solu-Medrol every six hours as well as increased dose of IV diuretics. Chest x-ray done at the time of admission does show some vasculature increase at the bases, although it is a suboptimal inspiratory film. LABORATORY DATA: Other laboratories show a white blood cell count of 15.2, hemoglobin 11.8, platelet count of 434,000, 60% segmented cells, no bands. Electrolytes this morning show a sodium of 140, potassium of 4.1, chloride 101, CO2 of 30, BUN 19, creatinine 0.9. PHYSICAL EXAMINATION: She is awake, alert, and appropriate. Initially lying in bed with her bilevel positive airway pressure (BiPAP) mask in place. With the mask off, she is comfortable and conversant. Pupils are reactive. Sclerae clear. Trachea is midline. Chest shows markedly diminished but symmetric expansion. There is some faint dependent crackles that clear with deep inspiration or cough. Cardiac examination is regular with no gallop. Peripheral pulses are palpable, trace edema at best. Abdomen is obese, soft with active bowel sounds. No convincing organomegaly or masses. Extremities show no cyanosis or clubbing. Neurologically, she is awake, alert, and appropriate. Psychiatric shows a normal mood and affect. IMPRESSION: 1. Acute on chronic respiratory failure, both hypoxemic and hypercapnic. 2. Advanced obstructive lung disease. 3. Congestive heart failure. 4. Obstructive sleep apnea (SUYAPA). 5. Longstanding previous tobacco abuse. 6. Deconditioning. RECOMMENDATIONS: At this point, she has responded to increased diuretics as well as increased steroids. She tells me that she has been short of breath for several weeks and that really her nebulizers did not seem to help much. Certainly the weather with the heat and humidity may be playing a role but fortunately she is in the [facility] and it is air conditioned. She has been more sedentary with the lack of the availability of visiting hours in view of the COVID-19 pandemic. I had a long discussion with her regarding the fact that she needs to increase her activity. We will have physical therapy see her while she is here in hopes of increasing some of that for her. She was very receptive to that. At this point, we will continue with that. She should see me in the outpatient setting in three or four weeks and I will see when her next routine appointment is. I agree with her plan as outlined by the primary service. Further recommendations will be made in the progress record as new information becomes available.
[2019-12-06 16:00] VITALS: BP 136/88
--- NOTE | 2019-12-06 17:48 | IPNPDOC ---
Date Seen The patient was seen on 12/06/19. Progress Note 63 y/o F initially came c/o shortness of breath was admitted for acute respiratory failure due to COPD exacerbation. Pt c/o mild shortness of breath but stated that it is better than yesterday. No new complaint PHYSICAL EXAMINATION: GENERAL: comfortable HEENT: oral mucosa moist CARDIOVASCULAR: regular rate and rhythm RESPIRATORY: b/l decreased breath sounds, diffuse rhonchi, ABDOMINAL: soft, non tender, normal bowel sounds EXTREMITIES: NO edema NEUROLOGICAL: No focal deficit PSYCHOLOGICAL: mood normal ASSESSMENT AND PLAN: Labs and imaging studies reviewed 1. Acute on chronic hypoxic and hypercapnic respiratory failure secondary to COPD exacerbation duonebs, iv solumedrol, doxycycline. BIPAP 2. SUYAPA BiPAP 3. Obesity supportive car 4. Chronic CAD sable home meds 5. HTN home meds 6. HLD home meds 7. Hypothyroidism home meds 8. Depression home meds 9. Cor pulmonale with probable pul htn lasix 10 chronic back pain home meds 11. DM type 2 insulin sliding scale, diabetic diet VS, I&O, 24H, [facility] Vital Signs/I&O Vital Signs Date Time Temp Pulse Resp B/P (MAP) Pulse Ox O2 Delivery O2 Flow Rate FiO2 12/06/19 16:00 96.4 88 18 136/88 (104) 92 12/06/19 12:00 3.0 12/05/19 21:48 NIPPV (BIPAP/CPAP) 12/05/19 14:20 40 I&O- Last 24 Hours up to 6 AM 12/06/19 06:00 Intake Total 0 ml Output Total 1425 ml Balance -1425 ml Laboratory Data 24H LABS Laboratory Tests 2 12/05/19 18:02: Nucleated Red Blood Cells % (auto) 0.0, Total Creatine Kinase 94, Creatine Kinase MB 1.7, Creatine Kinase MB Relative Index 1.81, Troponin I < 0.02 12/06/19 00:13: Nucleated Red Blood Cells % (auto) 0.0, Total Creatine Kinase 79, Creatine Kinase MB 1.5, Creatine Kinase MB Relative Index 1.90, Troponin I < 0.02 12/06/19 06:40: Nucleated Red Blood Cells % (auto) 0.0, Anion Gap 9, Glomerular Filtration Rate > 60.0, Calcium Level 9.4 12/06/19 07:06: Blood Gas Bicarbonate Standard 28.2, Venous Blood pH 7.369, Venous Blood Partial Pressure CO2 54.3H, Venous Blood Partial Pressure O2 79.7H, Venous Blood Total Carbon Dioxide 32.3H, Venous Blood HCO3 30.6H, Venous Blood Oxygen Saturation 94.3H, Venous Blood Base Excess 4.3H 12/06/19 12:38: Nucleated Red Blood Cells % (auto) 0.0 CBC/BMP Laboratory Tests 12/05/19 18:02 12/06/19 00:13 12/06/19 06:40 12/06/19 12:38 Microbiology Microbiology 12/05/19 Blood Culture, Received Pending 12/05/19 Respiratory Virus Panel (PCR) ([facility]) - Final, Complete 12/05/19 Blood Culture - Preliminary, Resulted No growth after 24 hours . All specim... TRINA LYNCH MD Dec 06, 2019 17:48
[2019-12-06 18:26] LABS: HEMATOCRIT 35.9 % (36.0-47.0); HEMOGLOBIN 10.6 g/dl (12.0-15.5); MEAN CORPUSCULAR HEMOGLOBIN 25.9 pg (27.0-33.0); MEAN CORPUSCULAR HGB CONC 29.5 g/dl (32.0-36.5); MEAN CORPUSCULAR VOLUME 87.6 fl (80.0-96.0); PLATELET COUNT, AUTOMATED 386 10^3/uL (150-450); WHITE BLOOD COUNT 19.5 10^3/uL (4.0-10.0)
[2019-12-06 20:00] VITALS: BP 130/60
[2019-12-07] VITALS: BP 122/66
[2019-12-07] MEDS: IPRATROPIUM 0.5MG/ALBUTEROL 2.5MG INH SOL UD 3ML (DUONEB) NEB SCH ×7 (00:21→23:33)
[2019-12-07] MEDS: methylPREDNISolone 125MG 2ML VIAL IV SCH ×3 (01:27→12:14)
[2019-12-07 01:41] LABS: HEMATOCRIT 34.9 % (36.0-47.0); HEMOGLOBIN 10.4 g/dl (12.0-15.5); MEAN CORPUSCULAR HEMOGLOBIN 25.8 pg (27.0-33.0); MEAN CORPUSCULAR HGB CONC 29.8 g/dl (32.0-36.5); MEAN CORPUSCULAR VOLUME 86.6 fl (80.0-96.0); PLATELET COUNT, AUTOMATED 395 10^3/uL (150-450); RED BLOOD COUNT 4.03 10^6/uL (4.00-5.40); WHITE BLOOD COUNT 21.2 10^3/uL (4.0-10.0)
[2019-12-07 04:00] VITALS: BP 135/68
[2019-12-07] MEDS: DOXYCYCLINE HYCLATE 100 MG in D5W MINI-BAG PLUS 100 ML IV SCH (04:46)
[2019-12-07 05:39] LABS: HEMATOCRIT 34.6 % (36.0-47.0); HEMOGLOBIN 10.3 g/dl (12.0-15.5); MEAN CORPUSCULAR HEMOGLOBIN 25.6 pg (27.0-33.0); MEAN CORPUSCULAR HGB CONC 29.8 g/dl (32.0-36.5); MEAN CORPUSCULAR VOLUME 86.1 fl (80.0-96.0); PLATELET COUNT, AUTOMATED 371 10^3/uL (150-450); RED BLOOD COUNT 4.02 10^6/uL (4.00-5.40); WHITE BLOOD COUNT 18.8 10^3/uL (4.0-10.0)
[2019-12-07 06:03] LABS: BLOOD UREA NITROGEN 21 MG/DL (7-18); CALCIUM LEVEL 8.9 MG/DL (8.8-10.2); CARBON DIOXIDE LEVEL 33 MEQ/L (21-32); CHLORIDE LEVEL 98 MEQ/L (98-107); CREATININE FOR GFR 0.86 MG/DL (0.55-1.30); GLOMERULAR FILTRATION RATE > 60.0 (>45); GLUCOSE, FASTING 340 MG/DL (70-100); POTASSIUM SERUM 4.2 MEQ/L (3.5-5.1); SODIUM LEVEL 137 MEQ/L (136-145)
[2019-12-07] MEDS: LEVOTHYROXINE 25MCG TABLET (0.025MG) PO SCH (06:08)
[2019-12-07] MEDS: glipiZIDE XL 5 MG TABCR PO SCH ×2 (06:09→12:14)
[2019-12-07 08:00] VITALS: BP 138/75
[2019-12-07] MEDS: ATORVASTATIN 20 MG TAB PO SCH (08:42)
[2019-12-07] MEDS: FUROSEMIDE 80 MG TAB PO SCH (08:42)
[2019-12-07] MEDS: OMEPRAZOLE 20 MG CAP PO SCH (08:43)
[2019-12-07] MEDS: POTASSIUM CHLORIDE 10 MEQ SR TABLET PO SCH (08:43)
[2019-12-07] MEDS: GABAPENTIN 300 MG CAP PO SCH ×3 (08:43→20:35)
[2019-12-07] MEDS: FLUoxetine 20 MG CAP PO SCH (08:43)
[2019-12-07] MEDS: MULTIVITAMINS/MINERALS THERAP 1 TAB PO SCH (08:43)
[2019-12-07] MEDS: MELOXICAM (MOBIC) 7.5 MG TAB PO SCH ×2 (08:44→17:24)
[2019-12-07] MEDS: ENOXAPARIN 40MG/0.4ML SYRINGE (J1650 PER 10MG) SC SCH (08:44)
[2019-12-07] MEDS: BISOPROLOL FUM 2.5 MG PER 1/2TAB PO SCH (08:44)
[2019-12-07] MEDS: ALPRAZolam 0.5 MG TAB PO PRN ×2 (08:52→20:35)
[2019-12-07] MEDS: NORCO, ANEXSIA 5/325MG TABLET (HYDROcodone/ACETAMINOPHEN) PO PRN ×2 (08:53→20:35)
[2019-12-07 12:00] VITALS: BP 135/64
[2019-12-07] MEDS: VITAMIN D 1,000 INTERNATIONAL UNITS TABLET PO SCH (12:14)
--- NOTE | 2019-12-07 13:29 | IPNPDOC ---
Date Seen The patient was seen on 12/07/19. Progress Note 63 y/o F initially came c/o shortness of breath was admitted for acute respiratory failure due to COPD exacerbation. No significant event over the night. Pt c/o mild shortness of breath but stated that it is improving PHYSICAL EXAMINATION: GENERAL: comfortable HEENT: oral mucosa moist CARDIOVASCULAR: regular rate and rhythm RESPIRATORY: b/l decreased breath sounds, diffuse rhonchi-improving ABDOMINAL: soft, non tender, normal bowel sounds EXTREMITIES: NO edema NEUROLOGICAL: No focal deficit PSYCHOLOGICAL: mood normal ASSESSMENT AND PLAN: Labs and imaging studies reviewed 1. Acute on chronic hypoxic and hypercapnic respiratory failure secondary to COPD exacerbation improving duonebs, doxycycline. will switch to PO steroids BIPAP 2. SUYAPA BiPAP 3. Obesity supportive car 4. Chronic CAD sable home meds 5. HTN home meds 6. HLD home meds 7. Hypothyroidism home meds 8. Depression home meds 9. Cor pulmonale with probable pul htn lasix 10 chronic back pain home meds 11. DM type 2 insulin sliding scale, diabetic diet VS, I&O, 24H, [facility] Vital Signs/I&O Vital Signs Date Time Temp Pulse Resp B/P (MAP) Pulse Ox O2 Delivery O2 Flow Rate FiO2 12/07/19 12:00 3.0 12/07/19 12:00 97.3 79 20 135/64 (87) 94 Nasal Cannula 12/05/19 14:20 40 I&O- Last 24 Hours up to 6 AM 12/07/19 06:00 Intake Total 1800 ml Output Total 3000 ml Balance -1200 ml Laboratory Data 24H LABS Laboratory Tests 2 12/06/19 18:04: Nucleated Red Blood Cells % (auto) 0.0 12/07/19 01:30: Nucleated Red Blood Cells % (auto) 0.0 12/07/19 05:22: Nucleated Red Blood Cells % (auto) 0.0, Anion Gap 6L, Glomerular Filtration Rate > 60.0, Calcium Level 8.9 CBC/BMP Laboratory Tests 12/06/19 18:04 12/07/19 01:30 12/07/19 05:22 Microbiology Microbiology 12/05/19 Blood Culture - Preliminary, Resulted No growth after 24 hours . All specim... 12/05/19 Respiratory Virus Panel (PCR) ([facility]) - Final, Complete 12/05/19 Blood Culture - Preliminary, Resulted No Growth after 48 hours. All Specime... TRINA LYNCH MD Dec 07, 2019 13:29
[2019-12-07] MEDS: predniSONE 20 MG TAB PO SCH (15:30)
[2019-12-07 16:00] VITALS: BP 149/72
[2019-12-07] MEDS: DOXYCYCLINE HYCLATE 100MG TABLET PO SCH (20:35)
[2019-12-08] MEDS: IPRATROPIUM 0.5MG/ALBUTEROL 2.5MG INH SOL UD 3ML (DUONEB) NEB SCH ×3 (03:59→11:09)
[2019-12-08 04:00] VITALS: BP 155/76
[2019-12-08 05:54] LABS: BLOOD UREA NITROGEN 28 MG/DL (7-18); CALCIUM LEVEL 8.4 MG/DL (8.8-10.2); CARBON DIOXIDE LEVEL 35 MEQ/L (21-32); CHLORIDE LEVEL 99 MEQ/L (98-107); GLOMERULAR FILTRATION RATE > 60.0 (>45); GLUCOSE, FASTING 278 MG/DL (70-100); SODIUM LEVEL 141 MEQ/L (136-145)
[2019-12-08] MEDS: LEVOTHYROXINE 25MCG TABLET (0.025MG) PO SCH (06:14)
[2019-12-08] MEDS: glipiZIDE XL 5 MG TABCR PO SCH ×2 (06:14→11:36)
[2019-12-08 07:43] LABS: HEMATOCRIT 34.3 % (36.0-47.0); HEMOGLOBIN 10.2 g/dl (12.0-15.5); MEAN CORPUSCULAR HEMOGLOBIN 26.2 pg (27.0-33.0); MEAN CORPUSCULAR HGB CONC 29.7 g/dl (32.0-36.5); MEAN CORPUSCULAR VOLUME 87.9 fl (80.0-96.0); PLATELET COUNT, AUTOMATED 351 10^3/uL (150-450); WHITE BLOOD COUNT 17.7 10^3/uL (4.0-10.0)
[2019-12-08 08:00] VITALS: BP 144/82
[2019-12-08] MEDS: FUROSEMIDE 80 MG TAB PO SCH (08:59)
[2019-12-08] MEDS: MELOXICAM (MOBIC) 7.5 MG TAB PO SCH (08:59)
[2019-12-08] MEDS: FLUoxetine 20 MG CAP PO SCH (08:59)
[2019-12-08] MEDS: predniSONE 20 MG TAB PO SCH (08:59)
[2019-12-08] MEDS: POTASSIUM CHLORIDE 10 MEQ SR TABLET PO SCH (09:00)
[2019-12-08 09:01] VITALS: BP 144/82
[2019-12-08] MEDS: GABAPENTIN 300 MG CAP PO SCH (09:01)
[2019-12-08] MEDS: MULTIVITAMINS/MINERALS THERAP 1 TAB PO SCH (09:01)
[2019-12-08] MEDS: ALPRAZolam 0.5 MG TAB PO PRN (09:01)
[2019-12-08] MEDS: OMEPRAZOLE 20 MG CAP PO SCH (09:01)
[2019-12-08] MEDS: BISOPROLOL FUM 2.5 MG PER 1/2TAB PO SCH (09:01)
[2019-12-08] MEDS: DOXYCYCLINE HYCLATE 100MG TABLET PO SCH (09:02)
[2019-12-08] MEDS: NORCO, ANEXSIA 5/325MG TABLET (HYDROcodone/ACETAMINOPHEN) PO PRN (09:02)
[2019-12-08] MEDS: ATORVASTATIN 20 MG TAB PO SCH (09:02)
[2019-12-08] MEDS: ENOXAPARIN 40MG/0.4ML SYRINGE (J1650 PER 10MG) SC SCH (09:03)
[2019-12-08] MEDS ORDERED: DOXY-350 PO ×2 (10:00→11:53)
[2019-12-08] MEDS ORDERED: PRED20TA PO ×2 (10:00→11:53)
--- NOTE | 2019-12-08 10:14 | DS.PDOC ---
Discharge Summary General Date of Admission Dec 05, 2019 at 12:36 Date of Discharge 12/08/19 Discharge Summary ADMITTING DIAGNOSES: Acute respiratory failure secondary to COPD exacerbation DISCHARGE DIAGNOSES: Resolved episode of acute respiratory failure secondary to COPD exacerbation COMPLICATIONS/CHIEF COMPLAINT: Acute Respiratory Failure With Hypoxia And Hypercapnia HOSPITAL COURSE: 63 y/o F initially came c/o shortness of breath was admitted for acute respiratory failure due to COPD exacerbation. Pt was started on iv steroids, doxycycline and placed on bipap. Over the course of treatment pt's clinical condition improved and shortness of breath resolved. Pt was switched to PO steroids. Pt was seen and examined at bedside on day of discharge. Pt stated that she is feeling fine and did not have any complaint. Pt was clinically and vitally stable at the time of discharge. PHYSICAL EXAMINATION ON DISCHARGE: GENERAL: comfortable, not in distress HEENT: oral mucosa moist NECK: supple CARDIOVASCULAR EXAMINATION: regular rate and rhythm RESPIRATORY EXAMINATION: b/l decreased breath sounds, no rhonchi/wheezing ABDOMINAL EXAMINATION: soft, non tender, normal bowel sounds EXTREMITIES: No edema SKIN: No lesions NEUROLOGICAL EXAMINATION: No focal deficit PSYCHIATRIC EXAMINATION: Mood normal IMAGING: chest x ray ACTIVITY: [As tolerated]. DISCHARGE INSTRUCTIONS: 1. f/u with PMD and pulmonary service as scheduled after discharge DISCHARGE CONDITION: good TIME SPENT ON DISCHARGE: 35 minutes. Vital Signs/I&Os Vital Signs Date Time Temp Pulse Resp B/P (MAP) Pulse Ox O2 Delivery O2 Flow Rate FiO2 12/08/19 09:02 94 3 Nasal Cannula 12/08/19 09:01 84 144/82 12/08/19 08:00 3.0 12/08/19 08:00 98.1 12/05/19 14:20 40 I&O- Last 24 Hours up to 6 AM 12/08/19 06:00 Intake Total 1920 ml Output Total 2650 ml Balance -730 ml Laboratory Data Labs 24H Laboratory Tests 2 12/08/19 05:08: Nucleated Red Blood Cells % (auto) 0.0, Anion Gap 7L, Glomerular Filtration Rate > 60.0, Calcium Level 8.4L CBC/BMP Laboratory Tests 12/08/19 05:08 Microbiology Microbiology 12/05/19 Blood Culture - Preliminary, Resulted No Growth after 48 hours. All Specime... 12/05/19 Respiratory Virus Panel (PCR) ([facility]) - Final, Complete 12/05/19 Blood Culture - Preliminary, Resulted No Growth after 48 hours. All Specime... Discharge Medications Scheduled Atorvastatin Calcium (Lipitor) 80 Mg Tab, 80 MG PO DAILY, (Reported) Bisoprolol Fumarate (Bisoprolol Fumarate) 5 Mg Tab, 2.5 MG PO DAILY, (Reported) Cholecalciferol (Vitamin D3) (Vitamin D3) 1,000 Unit Tablet, 5,000 UNITS PO DAILY, (Reported) TAKES AT LUNCH Doxycycline Monohydrate (Doxycycline) 100 Mg Capsule, 1 CAP PO BID Fluoxetine HCl (Fluoxetine HCl) 20 Mg Tablet, 20 MG PO DAILY, (Reported) Furosemide (Furosemide) 80 Mg Tablet, 80 MG PO QAM, (Reported) Gabapentin (Gabapentin) 600 Mg Tablet, 600 MG PO TID, (Reported) Glipizide (Glipizide ER) 5 Mg Tab.er.24, 5 MG PO BID, (Reported) TAKES AM AND 1200 Ipratropium/Albuterol Sulfate (Iprat-Albut 0.5-3(2.5) mg/3 ml) 3 Ml Ampul.neb, 1 VIAL INH QID, (Reported) Levothyroxine Sodium (Levoxyl) 25 Mcg Tab, 25 MCG PO DAILY, (Reported) Linagliptin (Tradjenta) 5 Mg Tablet, 5 MG PO DAILY, (Reported) Meloxicam (Mobic) 7.5 Mg Tablet, 7.5 MG PO BID, (Reported) WITH FOOD Menthol/Zinc Oxide (Gold Tavares Medicated Body Powd) 113 Gm Powder, 1 DOSE TOP BID, (Reported) APPLY TO SKIN FOLDS Multivitamins (Thera M Plus Tablet) 1 Each Tablet, 1 TAB PO DAILY, (Reported) Omeprazole (Omeprazole) 20 Mg Capsule.dr, 20 MG PO DAILY, (Reported) Potassium Chloride (Potassium Chloride) 20 Meq Tab.er.prt, 20 MEQ PO DAILY, (Reported) Potassium Chloride (Potassium Chloride) 8 Meq Capsule.er, 16 MEQ PO DAILY, (Reported) Prednisone (Prednisone) 20 Mg Tablet, 2 TAB PO BID Salmeterol/Fluticasone (Advair 250-50 Diskus) 1 Each Blst.w.dev, 1 PUFF INH BID, (Reported) Umeclidinium [place] (Incruse Ellipta) 62.5 Mcg Blst.w.dev, 62.5 MCG INH DAILY, (Reported) Scheduled PRN Acetaminophen (Acetaminophen 8 Hour) 650 Mg Tablet.er, 650 MG PO BID PRN for PAIN, (Reported) Albuterol Sulfate (Ventolin Hfa) 108 Mcg/Act Aer, 2 PUFFS INH Q4H PRN for SHORTNESS OF BREATH, (Reported) Alprazolam (Alprazolam) 0.5 Mg Tablet, 0.5 MG PO BID PRN for ANXIETY, (Reported) Hydrocodone/Acetaminophen ([place] 5-325 Tablet) 1 Each Tablet, 1 TAB PO BID PRN for PAIN, (Reported) Ipratropium/Albuterol Sulfate (Iprat-Albut 0.5-3(2.5) mg/3 ml) 3 Ml Ampul.neb, 1 VIAL INH Q6H PRN for SHORTNESS OF BREATH, (Reported) Levalbuterol Hydrochloride (Xopenex Concentrate) 1.25 Mg/0.5 Ml Vial.neb, 1.25 MG INH Q4H PRN for WHEEZING, (Reported) Lidocaine HCl (Aspercreme) 4% Cream..g., 1 DOSE TOP QID PRN for PAIN, (Reported) APPLY TO ANY PAINFUL AREAS Milk Of Magnesia (Milk of Magnesia) 2,400 Mg/10 Ml Oral.susp, 10 ML PO DAILY PRN for CONSTIPATION, (Reported) Nystatin (Nystatin Powder) 15 Gm Powder, 1 DOSE TOP BID PRN for ITCH/RASH, (Reported) USES UNDER BREASTS Allergies Coded Allergies: Cat Dander (Verified Allergy, Unknown, 06/14/19) Dust (Verified Allergy, Unknown, 06/14/19) TRINA LYNCH MD Dec 08, 2019 10:14
[2019-12-08] MEDS: VITAMIN D 1,000 INTERNATIONAL UNITS TABLET PO SCH (11:36)
== END 2019-12-08 12:40 | DRG 189 ==
LOC: EDBD 10:36 → M ED 10:36 → M ED INP 12:36 → ENRESERV 12:51 → M PCU 15:24
PROVIDERS: ADMIT General Practice; ATTEND Internal Medicine
DX: J96.21 Acute and chronic respiratory failure with hypoxia (principal); J44.1 Chronic obstructive pulmonary disease with (acute) exacerbation; J96.22 Acute and chronic respiratory failure with hypercapnia; G47.33 Obstructive sleep apnea (adult) (pediatric); E11.9 Type 2 diabetes mellitus without complications; I25.10 Atherosclerotic heart disease of native coronary artery without angina pectoris; I25.2 Old myocardial infarction; E78.5 Hyperlipidemia, unspecified; E03.9 Hypothyroidism, unspecified; F31.9 Bipolar disorder, unspecified; I27.29 Other secondary pulmonary hypertension; I10 Essential (primary) hypertension; K21.9 Gastro-esophageal reflux disease without esophagitis; E66.9 Obesity, unspecified; Z87.891 Personal history of nicotine dependence; M54.9 Dorsalgia, unspecified; Z90.49 Acquired absence of other specified parts of digestive tract; Z99.81 Dependence on supplemental oxygen; Z79.52 Long term (current) use of systemic steroids; Z11.59 Encounter for screening for other viral diseases; Z68.37 Body mass index [BMI] 37.0-37.9, adult; Z79.84 Long term (current) use of oral hypoglycemic drugs; Z79.899 Other long term (current) drug therapy

== ENCOUNTER 2019-12-10 11:09 | Emergency (ER) | payer MEDICARE, MEDICAID ==
[~2019-12-10] VITALS: Ht 170.2 cm; Wt 105.0 kg
[~2019-12-10 11:09] MED LIST changes: +ACET650T61 PO; +ASPE16CR TOP; +ASPI-546 PO; -ASPI1TAB15 PO; -ASPI81TA85 PO; +ASPI81TA86 PO; +D31000TA2 PO; +FURO80TA2 PO; +GABA600T4 PO; +GLIP5TAB20 PO; +GOLDPOW2 TOP; +INCR1INH INH; +MEDR4PAK PO; +MOM30SS PO; +NON-325T5 PO; +OMEP1CAP73 PO; +PANT40TA29 PO; -PANT40TA3 PO; +POTA20TA6 PO; -PROC5TA PO; +PROC5TAB57 PO; +QC A650T3 PO; +TRAD5TAB PO; -TYLE650T35 PO; +VITMTA PO
[2019-12-10 11:34] LABS: BASO % 0.2 % (0.0-1.0); EOS # 0.2 10^3/uL (0.0-0.5); EOS % 1.1 % (0.0-3.0); HEMATOCRIT 39.8 % (36.0-47.0); HEMOGLOBIN 11.8 g/dl (12.0-15.5); LYMPH % 11.5 % (24.0-44.0); MEAN CORPUSCULAR HEMOGLOBIN 25.9 pg (27.0-33.0); MEAN CORPUSCULAR HGB CONC 29.6 g/dl (32.0-36.5); MEAN CORPUSCULAR VOLUME 87.3 fl (80.0-96.0); MONO # 1.1 10^3/uL (0.0-0.8); MONO % 6.4 % (0.0-5.0); NEUTROPHILS # 13.5 10^3/uL (1.5-8.5); NEUTROPHILS % 79.2 % (36.0-66.0); PLATELET COUNT, AUTOMATED 376 10^3/uL (150-450); RED BLOOD COUNT 4.56 10^6/uL (4.00-5.40); WHITE BLOOD COUNT 17.1 10^3/uL (4.0-10.0)
[2019-12-10 11:44] LABS: VENOUS BASE EXCESS 9.5 (-2.0-2.0); VENOUS HCO3 38.3 MEQ/L (23.0-27.0); VENOUS PARTIAL PRESSURE CO2 76.2 mmHg (38.0-50.0); VENOUS PARTIAL PRESSURE O2 59.9 mmHg (30.0-50.0); VENOUS PH 7.319 UNITS (7.330-7.430); VENOUS TOTAL CO2 40.6 MEQ/L (24.0-28.0)
[2019-12-10 11:45] LABS: INR 0.91
[2019-12-10 12:02] LABS: ALBUMIN 3.3 GM/DL (3.2-5.2); ALT/SGPT 31 U/L (12-78); BILIRUBIN,DIRECT 0.1 MG/DL (0.0-0.2); BILIRUBIN,TOTAL 0.4 MG/DL (0.2-1.0); BLOOD UREA NITROGEN 18 MG/DL (7-18); CALCIUM LEVEL 8.9 MG/DL (8.8-10.2); CARBON DIOXIDE LEVEL 39 MEQ/L (21-32); CHLORIDE LEVEL 101 MEQ/L (98-107); CK-MB VALUE MASS 1.8 NG/ML (<3.6); CPK CREATINE PHOSPHOKINASE 59 U/L (26-192); CREATININE FOR GFR 0.73 MG/DL (0.55-1.30); GLOMERULAR FILTRATION RATE > 60.0 (>45); GLUCOSE, FASTING 144 MG/DL (70-100); MB/CK RELATIVE INDEX 3.05 (< OR =4); NT-PRO BNP 234 PG/ML (<125); POTASSIUM SERUM 4.1 MEQ/L (3.5-5.1); SODIUM LEVEL 143 MEQ/L (136-145); TOTAL PROTEIN 6.7 GM/DL (6.4-8.2); TROPONIN I < 0.02 NG/ML (< 0.10)
[2019-12-10] MEDS ORDERED: PRED20TA PO (12:51)
[2019-12-10] MEDS ORDERED: VOLT1GEL15 TOP (12:51)
--- NOTE | 2019-12-10 14:51 | REP ---
REASON: Cough and dyspnea. COMPARISON: 12/05/2019 The technique utilized in obtaining the radiograph has magnified the cardiac silhouette and accentuated the interstitial markings. Mild basilar opacities seen on the prior exam have cleared. No acute patchy parenchymal opacities or pleural effusions have developed. Once again, the cardiac silhouette is magnified by technique. Mild cardiomegaly cannot be ruled out. The osseous structures are stable and intact. IMPRESSION: No acute cardiopulmonary disease. The lung bases have cleared. Electronically Signed by Biju Bhatti DO 12/10/2019 04:26 P
[2019-12-10 16:39] VITALS: BP 120/81
--- NOTE | 2019-12-11 08:30 | ECGEPIP ---
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
== END 2019-12-10 16:47 | disposition home or self-care (01) ==
LOC: M ED 11:09
DX: F41.9 Anxiety disorder, unspecified (principal); J96.12 Chronic respiratory failure with hypercapnia; E11.9 Type 2 diabetes mellitus without complications; J44.9 Chronic obstructive pulmonary disease, unspecified; I25.10 Atherosclerotic heart disease of native coronary artery without angina pectoris; E78.5 Hyperlipidemia, unspecified; G47.33 Obstructive sleep apnea (adult) (pediatric); Z99.89 Dependence on other enabling machines and devices; Z79.899 Other long term (current) drug therapy; Z79.890 Hormone replacement therapy

== ENCOUNTER 2020-01-29 17:12 | Emergency (ER) | payer MEDICARE, MEDICAID ==
[~2020-01-29] VITALS: Ht 165.1 cm; Wt 109.7 kg
[~2020-01-29 17:12] MED LIST changes: +VOLT1GEL15 TOP
[2020-01-29 17:30] LABS: ABG BASE EXCESS 3.5 (-2.0-2.0); ABG HCO3 28.7 MEQ/L (22.0-26.0); ABG O2 SATURATION 97.2 % (95.0-99.0); ABG PARTIAL PRESSURE CO2 46.7 mmHg (35.0-45.0); ABG PARTIAL PRESSURE O2 149.8 mmHg (75.0-100.0); ABG STANDARD HCO3 27.6 MEQ/L (22.0-26.0); ABG TOTAL CO2 30.2 MEQ/L (23.0-31.0); ABG pH (ARTERIAL) 7.407 UNITS (7.350-7.450)
[2020-01-29] MEDS ORDERED: IPRATROPIUM 0.5MG/ALBUTEROL 2.5MG INH SOL UD 3ML (DUONEB) NEB ONE (17:30)
[2020-01-29] MEDS ORDERED: FUROSEMIDE 40MG/4ML VIAL (J1940) IV ONE (17:30)
[2020-01-29 17:59] LABS: BASO # 0.1 10^3/uL (0.0-0.2); BASO % 0.4 % (0.0-1.0); EOS # 0.1 10^3/uL (0.0-0.5); EOS % 0.5 % (0.0-3.0); HEMATOCRIT 33.1 % (36.0-47.0); HEMOGLOBIN 9.7 g/dl (12.0-15.5); LYMPH # 1.5 10^3/uL (1.5-5.0); LYMPH % 11.6 % (24.0-44.0); MEAN CORPUSCULAR HEMOGLOBIN 25.5 pg (27.0-33.0); MEAN CORPUSCULAR HGB CONC 29.3 g/dl (32.0-36.5); MEAN CORPUSCULAR VOLUME 86.9 fl (80.0-96.0); MONO # 0.7 10^3/uL (0.0-0.8); MONO % 5.2 % (0.0-5.0); NEUTROPHILS # 10.4 10^3/uL (1.5-8.5); NEUTROPHILS % 81.3 % (36.0-66.0); PLATELET COUNT, AUTOMATED 378 10^3/uL (150-450); RED BLOOD COUNT 3.81 10^6/uL (4.00-5.40); WHITE BLOOD COUNT 12.8 10^3/uL (4.0-10.0)
[2020-01-29 18:18] LABS: INR 0.91; PROTHROMBIN TIME 12.4 SECONDS (11.8-14.0)
[2020-01-29 18:21] LABS: ALBUMIN 3.2 GM/DL (3.2-5.2); ALT/SGPT 32 U/L (12-78); BILIRUBIN,DIRECT < 0.1 MG/DL (0.0-0.2); BILIRUBIN,TOTAL 0.2 MG/DL (0.2-1.0); BLOOD UREA NITROGEN 15 MG/DL (7-18); CALCIUM LEVEL 8.1 MG/DL (8.8-10.2); CARBON DIOXIDE LEVEL 31 MEQ/L (21-32); CHLORIDE LEVEL 104 MEQ/L (98-107); CK-MB VALUE MASS 1.5 NG/ML (<3.6); CPK CREATINE PHOSPHOKINASE 55 U/L (26-192); CREATININE FOR GFR 0.81 MG/DL (0.55-1.30); GLOMERULAR FILTRATION RATE > 60.0 (>45); GLUCOSE, FASTING 264 MG/DL (70-100); MB/CK RELATIVE INDEX 2.73 (< OR =4); NT-PRO BNP 73 PG/ML (<125); POTASSIUM SERUM 4.2 MEQ/L (3.5-5.1); SODIUM LEVEL 142 MEQ/L (136-145); THYROID STIMULATING HORMONE 0.292 uIU/ML (0.358-3.740); THYROXINE (T4) 7.2 UG/DL (4.5-12.0); TOTAL PROTEIN 6.4 GM/DL (6.4-8.2); TROPONIN I < 0.02 NG/ML (< 0.10)
--- NOTE | 2020-01-29 18:46 | REPVR ---
PROCEDURE INFORMATION: Exam: XR Chest, 1 View Exam date and time: 01/29/2020 5:41 PM Age: 64 years old Clinical indication: Shortness of breath; Additional info: Dyspnea/cough TECHNIQUE: Imaging protocol: XR of the chest Views: 1 view. COMPARISON: CR PORTABLE CHEST X-RAY 12/10/2019 11:19 AM FINDINGS: Lungs: Streaky opacities at the lung bases, likely secondary to atelectasis and/or scarring. No consolidation. Pleural space: Unremarkable. No pleural effusion. No pneumothorax. Heart/Mediastinum: Unremarkable. No cardiomegaly. Bones/joints: No acute osseous abnormality. Mild degenerative changes of the spine and shoulders. IMPRESSION: No acute radiographic findings. Electronically signed by: Eliazar Wood On 01/29/2020 18:46:02 PM
[2020-01-29 19:18] LABS: ABG BASE EXCESS 5.3 (-2.0-2.0); ABG HCO3 30.7 MEQ/L (22.0-26.0); ABG O2 SATURATION 92.7 % (95.0-99.0); ABG PARTIAL PRESSURE CO2 48.6 mmHg (35.0-45.0); ABG PARTIAL PRESSURE O2 72.5 mmHg (75.0-100.0); ABG STANDARD HCO3 29.2 MEQ/L (22.0-26.0); ABG TOTAL CO2 32.2 MEQ/L (23.0-31.0); ABG pH (ARTERIAL) 7.418 UNITS (7.350-7.450)
[2020-01-29] MEDS ORDERED: PRED10TA2 PO (19:42)
[2020-01-29 20:50] VITALS: BP 130/76
--- NOTE | 2020-02-05 07:58 | ECGEPIP ---
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
== END 2020-01-29 21:15 | disposition home or self-care (01) ==
LOC: M ED 17:12 → EDBD 17:12 → M ED 21:15
DX: J44.1 Chronic obstructive pulmonary disease with (acute) exacerbation (principal); I50.9 Heart failure, unspecified; F42.9 Obsessive-compulsive disorder, unspecified; F33.9 Major depressive disorder, recurrent, unspecified; J30.81 Allergic rhinitis due to animal (cat) (dog) hair and dander; Z79.899 Other long term (current) drug therapy
CPT/HCPCS: 36600; 51702; 71045; 80048; 80076; 82550; 82553; 82803; 83605; 83880; 84436; 84443; 84484; 85025; 85610; 87040; 93005; 93041; 94640; 96374; 99285; J1940

== ENCOUNTER 2020-02-14 18:53 | Emergency (ER) | payer MEDICARE, MEDICAID ==
[~2020-02-14] VITALS: Ht 165.1 cm; Wt 122.0 kg
[2020-02-14] MEDS ORDERED: FUROSEMIDE 40MG/4ML VIAL (J1940) IV ONE (19:45)
[2020-02-14 19:49] LABS: VENOUS BASE EXCESS 4.9 (-2.0-2.0); VENOUS HCO3 30.4 MEQ/L (23.0-27.0); VENOUS O2 SATURATION 96.4 % (60.0-80.0); VENOUS PARTIAL PRESSURE CO2 48.9 mmHg (38.0-50.0); VENOUS PARTIAL PRESSURE O2 110.2 mmHg (30.0-50.0); VENOUS PH 7.411 UNITS (7.330-7.430); VENOUS STANDARD HCO3 28.9 MEQ/L; VENOUS TOTAL CO2 31.9 MEQ/L (24.0-28.0)
[2020-02-14 19:55] LABS: BASO # 0.1 10^3/uL (0.0-0.2); BASO % 0.4 % (0.0-1.0); EOS # 0.1 10^3/uL (0.0-0.5); EOS % 0.8 % (0.0-3.0); HEMATOCRIT 34.6 % (36.0-47.0); HEMOGLOBIN 10.4 g/dl (12.0-15.5); LYMPH # 1.9 10^3/uL (1.5-5.0); LYMPH % 16.1 % (24.0-44.0); MEAN CORPUSCULAR HEMOGLOBIN 25.8 pg (27.0-33.0); MEAN CORPUSCULAR HGB CONC 30.1 g/dl (32.0-36.5); MEAN CORPUSCULAR VOLUME 85.9 fl (80.0-96.0); MONO # 0.8 10^3/uL (0.0-0.8); MONO % 6.8 % (0.0-5.0); NEUTROPHILS # 8.9 10^3/uL (1.5-8.5); NEUTROPHILS % 75.2 % (36.0-66.0); PLATELET COUNT, AUTOMATED 347 10^3/uL (150-450); RED BLOOD COUNT 4.03 10^6/uL (4.00-5.40); WHITE BLOOD COUNT 11.8 10^3/uL (4.0-10.0)
[2020-02-14] MEDS ORDERED: PRED10TA2 PO (20:12)
[2020-02-14 20:29] LABS: ALBUMIN 3.2 GM/DL (3.2-5.2); ALT/SGPT 31 U/L (12-78); BILIRUBIN,DIRECT < 0.1 MG/DL (0.0-0.2); BILIRUBIN,TOTAL 0.3 MG/DL (0.2-1.0); BLOOD UREA NITROGEN 12 MG/DL (7-18); CALCIUM LEVEL 8.3 MG/DL (8.8-10.2); CARBON DIOXIDE LEVEL 32 MEQ/L (21-32); CHLORIDE LEVEL 103 MEQ/L (98-107); CK-MB VALUE MASS < 1.0 NG/ML (<3.6); CPK CREATINE PHOSPHOKINASE 55 U/L (26-192); CREATININE FOR GFR 0.66 MG/DL (0.55-1.30); GLOMERULAR FILTRATION RATE > 60.0 (>45); GLUCOSE, FASTING 181 MG/DL (70-100); MB/CK RELATIVE INDEX 1.82 (< OR =4); NT-PRO BNP 50 PG/ML (<125); POTASSIUM SERUM 3.8 MEQ/L (3.5-5.1); SODIUM LEVEL 142 MEQ/L (136-145); THYROID STIMULATING HORMONE 0.143 uIU/ML (0.358-3.740); TOTAL PROTEIN 6.4 GM/DL (6.4-8.2); TROPONIN I < 0.02 NG/ML (< 0.10)
--- NOTE | 2020-02-14 20:29 | REPVR ---
PROCEDURE INFORMATION: Exam: XR Chest, 1 View Exam date and time: 02/14/2020 7:40 PM Age: 64 years old Clinical indication: Cough; Additional info: Dyspnea TECHNIQUE: Imaging protocol: XR of the chest Views: 1 view. COMPARISON: CR PORTABLE CHEST X-RAY 01/29/2020 5:39 PM FINDINGS: Lungs: There is bibasilar atelectasis. No lung consolidation or pulmonary edema is noted. Pleural space: Unremarkable. No pleural effusion or pneumothorax is identified. Heart/Mediastinum: Unremarkable. No cardiomegaly. Bones/joints: Unremarkable. IMPRESSION: No radiographic evidence for an acute cardiopulmonary process. Electronically signed by: Neil Patricia On 02/14/2020 20:28:56 PM
[2020-02-14 23:17] LABS: CK-MB VALUE MASS < 1.0 NG/ML (<3.6); CPK CREATINE PHOSPHOKINASE 59 U/L (26-192); MB/CK RELATIVE INDEX 1.69 (< OR =4); TROPONIN I < 0.02 NG/ML (< 0.10)
--- NOTE | 2020-02-14 23:20 | ECGEPIP ---
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
--- NOTE | 2020-02-14 23:21 | ECGEPIP ---
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
[2020-02-14] MEDS ORDERED: LASI40TA9 PO (23:27)
[2020-02-14 23:30] VITALS: BP 128/60
== END 2020-02-15 00:31 | disposition home or self-care (01) ==
LOC: M ED 18:53 → EDBD 18:53 → M ED 02-15 00:31
DX: I50.810 Right heart failure, unspecified (principal); I25.2 Old myocardial infarction; F31.9 Bipolar disorder, unspecified; E78.5 Hyperlipidemia, unspecified; I11.0 Hypertensive heart disease with heart failure; J45.909 Unspecified asthma, uncomplicated; Z79.51 Long term (current) use of inhaled steroids; Z79.899 Other long term (current) drug therapy
CPT/HCPCS: 71045; 80048; 80076; 82550; 82553; 82803; 83605; 83880; 84443; 84484; 85025; 87040; 93005; 93041; 96374; 99285; J1940

== ENCOUNTER → 2020-02-27 | Outpatient (REF) | payer MEDICARE, MEDICAID ==
[~2020-02-27] MED LIST changes: +AZIT500T5 PO; +FLUO10CA16 PO; +FLUO20CA20 PO; +LEVA1.2525 NEB; +SIME80TA PO; +TORS100T PO; +TUMS500C PO
[2020-02-27 09:27] LABS: BLOOD UREA NITROGEN 13 MG/DL (7-18); CALCIUM LEVEL 8.7 MG/DL (8.8-10.2); CARBON DIOXIDE LEVEL 38 MEQ/L (21-32); CHLORIDE LEVEL 98 MEQ/L (98-107); CREATININE FOR GFR 0.62 MG/DL (0.55-1.30); GLOMERULAR FILTRATION RATE > 60.0 (>45); GLUCOSE, FASTING 127 MG/DL (70-100); POTASSIUM SERUM 4.3 MEQ/L (3.5-5.1); SODIUM LEVEL 141 MEQ/L (136-145)
== END ==
PROVIDERS: ATTEND Internal Medicine Cardiovascular Disease
DX: I50.810 Right heart failure, unspecified (principal)

== ENCOUNTER 2020-04-02 14:27 | Observation (INO) | payer MEDICARE, MEDICAID ==
[~2020-04-02] VITALS: Ht 165.1 cm; Wt 107.9 kg
[~2020-04-02 14:27] MED LIST changes: -AZIT500T5 PO; -FLUO10CA16 PO; -FLUO20CA20 PO; -LEVA1.2525 NEB; -SIME80TA PO; -TORS100T PO; -TUMS500C PO
--- NOTE | 2020-04-02 15:20 | REP ---
INDICATION: DYSPNEA/COUGH. COMPARISON: February 14, 2020.. TECHNIQUE: Sitting AP portable radiograph. FINDINGS: There are linear densities in the perihilar regions bilaterally consistent with linear fibrosis. These are unchanged from January 29, 2020 and February 14, 2020. No new infiltrate is appreciated. Pleural angles are sharp. Heart is not enlarged. Pulmonary vasculature is not increased. IMPRESSION: No new infiltrate. Bilateral perihilar linear fibrosis. Otherwise no acute disease. <Electronically signed by Tristan Higgins > 04/02/20 [id number]
[2020-04-02 15:38] LABS: BASO # 0.1 10^3/uL (0.0-0.2); BASO % 0.3 % (0.0-1.0); EOS # 0.1 10^3/uL (0.0-0.5); EOS % 0.9 % (0.0-3.0); HEMATOCRIT 37.8 % (36.0-47.0); HEMOGLOBIN 10.9 g/dl (12.0-15.5); LYMPH # 1.4 10^3/uL (1.5-5.0); LYMPH % 9.3 % (24.0-44.0); MEAN CORPUSCULAR HEMOGLOBIN 25.8 pg (27.0-33.0); MEAN CORPUSCULAR HGB CONC 28.8 g/dl (32.0-36.5); MEAN CORPUSCULAR VOLUME 89.6 fl (80.0-96.0); MONO # 0.9 10^3/uL (0.0-0.8); MONO % 6.1 % (0.0-5.0); NEUTROPHILS # 12.6 10^3/uL (1.5-8.5); NEUTROPHILS % 82.6 % (36.0-66.0); PLATELET COUNT, AUTOMATED 396 10^3/uL (150-450); RED BLOOD COUNT 4.22 10^6/uL (4.00-5.40); WHITE BLOOD COUNT 15.3 10^3/uL (4.0-10.0)
[2020-04-02 16:05] LABS: ALBUMIN 3.5 GM/DL (3.2-5.2); BILIRUBIN,DIRECT 0.1 MG/DL (0.0-0.2); BILIRUBIN,TOTAL 0.3 MG/DL (0.2-1.0); THYROID STIMULATING HORMONE 0.434 uIU/ML (0.358-3.740); TOTAL PROTEIN 6.9 GM/DL (6.4-8.2)
[2020-04-02] MEDS: COMBIVENT RESPIMAT 100-20MCG INHALER 4GM INH SCH ×2 (17:34→17:38)
[2020-04-02] MEDS ORDERED: LEVA1.2525 NEB (17:47)
[2020-04-02] MEDS ORDERED: FLUO10CA16 PO (17:47)
[2020-04-02] MEDS ORDERED: FLUO20CA20 PO (17:47)
[2020-04-02] MEDS ORDERED: TORS100T PO (17:47)
[2020-04-02] MEDS ORDERED: TUMS500C PO (17:47)
[2020-04-02] MEDS ORDERED: NORCO, ANEXSIA 5/325MG TABLET (HYDROcodone/ACETAMINOPHEN) PO PRN (19:00)
[2020-04-02] MEDS ORDERED: MOM 30ML SUSPENSION UDC PO PRN (19:00)
[2020-04-02] MEDS ORDERED: CALCIUM CARBONATE 500 MG CHEW U/D PO PRN (19:00)
[2020-04-02] MEDS ORDERED: IPRATROPIUM 0.5MG/ALBUTEROL 2.5MG INH SOL UD 3ML (DUONEB) NEB PRN (19:00)
[2020-04-02] MEDS ORDERED: ACETAMINOPHEN 650MG ER TAB (TYLENOL ARTHRITIS) PO PRN (19:00)
[2020-04-02] MEDS: AZITHROMYCIN INJ 500 MG, VIAL MATE ADAPTER 1 EACH in D5W 250 ML IV SCH (20:00)
[2020-04-02] MEDS: methylPREDNISolone 125MG 2ML VIAL IV SCH (20:00)
[2020-04-02] MEDS: IPRATROPIUM 0.5MG/ALBUTEROL 2.5MG INH SOL UD 3ML (DUONEB) NEB SCH ×2 (20:36→23:35)
[2020-04-02] MEDS: ADVAIR HFA 115/21MCG INHALER INH SCH (20:37)
[2020-04-02] MEDS ORDERED: NYSTATIN 100,000 UNITS/GM TOPICAL PWD 15 GM TOP PRN (21:00)
[2020-04-02] MEDS: GABAPENTIN 300 MG CAP PO SCH (22:04)
[2020-04-02] MEDS: SUCRALFATE 1 GM TAB PO SCH (22:04)
[2020-04-02] MEDS: SIMETHICONE 80 MG CHEW TAB PO SCH (22:05)
[2020-04-02] MEDS ORDERED: GLUCOSE 4GM CHEW TABLET PO PRN (22:15)
[2020-04-02] MEDS ORDERED: DEXTROSE 50% 50 ML SYRINGE IV PRN (22:15)
[2020-04-02] MEDS ORDERED: GLUCAGON INJ 1MG VIAL SC PRN (22:15)
--- NOTE | 2020-04-02 22:19 | HPEPDOC ---
General Date of Admission Apr 02, 2020 at 18:43 Date of Service: Apr 02, 2020 Chief Complaint The patient is a 64-year-old female admitted with a reason for visit of Copd Exacerbation. Source: Patient History of Present Illness Ms. Zavala is a 64 year old female COPD, SUYAPA, bipolar, and chronic hypoxic respiratory failure here with dyspnea secondary to COPD exacerbation. She is a resident of [facility]. Yesterday, she was walking to the bathroom and back. She felt winded. Her rescue inhaler did not help and she came to the ED. Denies any sick contacts or recent travel. Work up was significant for a WBC of 15.3 and a lactic acid of 3.3. Otherwise, when I spoke with her, she complained of abdominal pain associated with food and gas. Home Medications Scheduled Alprazolam (Alprazolam) 0.5 Mg Tablet, 0.5 MG PO BID, (Reported) Atorvastatin Calcium (Lipitor) 80 Mg Tab, 80 MG PO DAILY, (Reported) Bisoprolol Fumarate (Bisoprolol Fumarate) 5 Mg Tab, 2.5 MG PO DAILY, (Reported) Cholecalciferol (Vitamin D3) (Vitamin D3) 1,000 Unit Tablet, 5,000 UNITS PO DAILY, (Reported) TAKES AT LUNCH Fluoxetine Hcl (Fluoxetine HCl) 20 Mg Capsule, 20 MG PO DAILY, (Reported) WITH 10MG FOR A TOTAL OF 30MG Fluoxetine Hcl (Fluoxetine HCl) 10 Mg Capsule, 10 MG PO DAILY, (Reported) WITH 20MG FOR A TOTAL OF 30MG Gabapentin (Gabapentin) 600 Mg Tablet, 600 MG PO TID, (Reported) Glipizide (Glipizide ER) 5 Mg Tab.er.24, 5 MG PO BID, (Reported) TAKES AM AND 1200 Ipratropium/Albuterol Sulfate (Iprat-Albut 0.5-3(2.5) mg/3 ml) 3 Ml Ampul.neb, 1 VIAL INH QID, (Reported) Levothyroxine Sodium (Levoxyl) 25 Mcg Tab, 25 MCG PO QAM, (Reported) Linagliptin (Tradjenta) 5 Mg Tablet, 5 MG PO DAILY, (Reported) Meloxicam (Mobic) 7.5 Mg Tablet, 7.5 MG PO BID, (Reported) WITH FOOD Menthol/Zinc Oxide (Gold [place] Medicated Body Powd) 113 Gm Powder, 1 DOSE TOP BID, (Reported) APPLY TO SKIN FOLDS Multivitamins (Thera M Plus Tablet) 1 Each Tablet, 1 TAB PO DAILY, (Reported) Omeprazole (Omeprazole) 20 Mg Capsule.dr, 20 MG PO DAILY, (Reported) Potassium Chloride (Potassium Chloride) 20 Meq Tab.er.prt, 20 MEQ PO DAILY, (Reported) Potassium Chloride (Potassium Chloride) 8 Meq Capsule.er, 16 MEQ PO DAILY, (Reported) Prednisone (Prednisone) 10 Mg Tablet, 10 MG PO DAILY, (Reported) Salmeterol/Fluticasone (Advair 250-50 Diskus) 1 Each Blst.w.dev, 1 PUFF INH BID, (Reported) Torsemide (Torsemide) 100 Mg Tablet, 50 MG PO DAILY, (Reported) Umeclidinium [place] (Incruse Ellipta) 62.5 Mcg Blst.w.dev, 1 PUFF INH DAILY, (Reported) Scheduled PRN Acetaminophen (Acetaminophen 8 Hour) 650 Mg Tablet.er, 650 MG PO BID PRN for PAIN, (Reported) Albuterol Sulfate (Ventolin Hfa) 108 Mcg/Act Aer, 2 PUFFS INH Q4H PRN for SHORTNESS OF BREATH, (Reported) Calcium Carbonate (Tums) 200 Mg Tab.chew, 500 MG PO QID PRN for HEARTBURN, (Reported) Diclofenac Sodium (Voltaren) 100 Gm Gel..gram., 4 GRAM TOP TID PRN for PAIN, (Reported) APPLY TO AREAS OF PAIN. MAY SELF-ADMINISTER Hydrocodone/Acetaminophen ([place] 5-325 Tablet) 1 Each Tablet, 1 TAB PO BID PRN for PAIN, (Reported) Ipratropium/Albuterol Sulfate (Iprat-Albut 0.5-3(2.5) mg/3 ml) 3 Ml Ampul.neb, 1 VIAL INH Q6H PRN for SHORTNESS OF BREATH, (Reported) Levalbuterol HCl (Levalbuterol HCl) 1.25 Mg/3 Ml Vial.neb, 1.25 MG NEB Q4H PRN for SOB/WHEEZING, (Reported) Lidocaine HCl (Aspercreme) 4% Cream..g., 1 DOSE TOP QID PRN for PAIN, (Reported) APPLY TO ANY PAINFUL AREAS Milk Of Magnesia (Milk of Magnesia) 2,400 Mg/10 Ml Oral.susp, 10 ML PO DAILY PRN for CONSTIPATION, (Reported) Nystatin (Nystatin Powder) 15 Gm Powder, 1 DOSE TOP BID PRN for ITCH/RASH, (Reported) USES UNDER BREASTS Allergies Coded Allergies: Cat Dander (Verified Allergy, Unknown, 01/29/20) Dust (Verified Allergy, Unknown, 01/29/20) Past Medical History Medical History 1. Chronic hypoxic/hypercapnic respiratory failure, oxygen dependent on 2 liters and prednisone dependent 10 mg daily 2. Obstructive sleep apnea 3. Non-insulin diabetes. 4. Coronary artery disease. 5. Myocardial infarction. 6. Hyperlipidemia. 7. Hypothyroidism. 8. Bipolar disorder. 9. Hypertension. 10. Reflux. 11. 45 year history of smoking. 12. Advanced COPD on chronic steroids. 13. Atherosclerotic heart disease. 14. Remote history of IA, details unknown. 15. Depression. Surgical History 1. Appendectomy. 2. Tonsillectomy. 3. Breast surgery. 4. Exploratory laparotomy. 5. Cholecystectomy. Social History * Smoker: former Smoker (quit in 07/2019) Alcohol: Denies Drugs: denies A-FIB/CHADSVASC A-FIB History Current/History of A-Fib/PAF?: No Review of Systems Constitutional: Denies: Chills, Fever Eyes: Denies: Vision change ENT: Denies: Sore Throat Skin: Reports: Itching (elbows) Pulmonary: Reports: Dyspnea, Cough Cardiovascular: Denies: Chest Pain, Lt [place] Gastrointestinal: Reports: Abdominal Pain (chronic and associated with food); Denies: Nausea Genitourinary: Denies: Dysuria Hematologic: Denies: Bruising Endocrine: Denies: Polydipsia, Polyphagia, Polyuria Psych: Reports: Anxiety, Depression Physical Examination General Exam: Positive: Alert, Cooperative Eye Exam: Positive: EOMI; Negative: Sclera icteric ENT Exam: Positive: Atraumatic Neck Exam: Positive: Supple Chest Exam: Positive: Diminished Heart Exam: Positive: Rate Normal, Regular Rhythm Abdomen Exam: Positive: Normal bowel sounds, Soft; Negative: Tenderness Extremity Exam: Positive: Edema (mild pitting) Neuro Exam: Positive: Cranial Nerves 3-12 NL Psych Exam: Positive: Mental status NL, Mood NL Vital Signs Vital Signs Date Time Temp Pulse Resp B/P (MAP) Pulse Ox O2 Delivery O2 Flow Rate FiO2 04/02/20 18:57 86 95 04/02/20 18:45 107/55 (72) 04/02/20 15:39 98.1 24 Nasal Cannula 3.0 Laboratory Data Labs 24H Laboratory Tests 2 04/02/20 15:18: Immature Granulocyte % (Auto) 0.8, Neutrophils (%) (Auto) 82.6H, Lymphocytes (%) (Auto) 9.3L, Monocytes (%) (Auto) 6.1H, Eosinophils (%) (Auto) 0.9, Basophils (%) (Auto) 0.3, Neutrophils # (Auto) 12.6H, Lymphocytes # (Auto) 1.4L, Monocytes # (Auto) 0.9H, Eosinophils # (Auto) 0.1, Basophils # (Auto) 0.1, Nucleated Red Blood Cells % (auto) 0.0, Lactic Acid Level 3.3*H, Total Bilirubin 0.3, Direct Bilirubin 0.1, Aspartate Amino Transf (AST/SGOT) 29, Alanine Aminotransferase (ALT/SGPT) 47, Alkaline Phosphatase 135H, CN-Miq-W-Type Natriuretic Peptide 52, Total Protein 6.9, Albumin 3.5, Albumin/Globulin Ratio 1.0L, Thyroid Stimulating Hormone (TSH) 0.434 04/02/20 15:19: POC Glucose (Misc Panel) 258H, POC Sodium (Misc Panel) 138, POC Potassium (Misc Panel) 4.3, POC Chloride (Misc Panel) 93L, POC Total CO2 (Misc Panel) 36.0H, POC Blood Urea Nitrogen (Misc Panel 14, POC Ionized Calcium (Misc Panel) 4.3L, POC Creatinine (Misc Panel) 0.6, POC Hematocrit (Misc Panel) 36.0L 04/02/20 15:21: POC Troponin I (Misc) 0.00 04/02/20 19:31: Lactic Acid Level 2.6*H CBC/BMP Laboratory Tests 04/02/20 15:18 Microbiology Microbiology 04/02/20 Respiratory Virus Panel (PCR) ([facility]) - Final, Complete 04/02/20 Blood Culture, Received Pending 04/02/20 Blood Culture, Received Pending Assessment/Plan Ms. Zavala is a 64 year old female COPD, SUYAPA, bipolar, and chronic hypoxic respiratory failure here with dyspnea secondary to COPD exacerbation. She will be started on IV steroids, IV antibiotics, and duonebs scheduled and as needed Plan / VTE VTE Prophylaxis Ordered?: Yes Plan Plan 1. COPD exacerbation -IV steroids, IV antibiotics, and duonebs -Continue inhalers -Supplemental oxygen 2. Lactic acidosis -Type B lactic acidosis secondary to albuterol 3. CAD s/p stents -Stable, no active chest pain -Continue statin and BB 4. Dyspepsia -Continue omeprazole -Added carafate and simethicone 5. Hypothyroidism -Continue levothyroxine 6. DM complicated with neuropathy -Sliding scale insulin -Gabapentin -Carbohydrate consistent diet 7. CHF -Stable, not in exacerbation -Continue BB and diuretics 8. DVT ppx -SCD and TEDs BRIAN BROWN DO Apr 02, 2020 22:19
[2020-04-02 23:55] VITALS: BP 132/68
[2020-04-03] MEDS: HumaLOG INSULIN (NovoLOG) PER UNIT SC SCH ×5 (00:17→20:13)
--- NOTE | 2020-04-03 00:59 | ECGEPIP ---
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
[2020-04-03 04:00] VITALS: BP 124/62
[2020-04-03] MEDS: IPRATROPIUM 0.5MG/ALBUTEROL 2.5MG INH SOL UD 3ML (DUONEB) NEB SCH ×6 (04:55→23:53)
[2020-04-03] MEDS: LEVOTHYROXINE 25MCG TABLET (0.025MG) PO SCH (05:51)
[2020-04-03 06:30] LABS: HEMATOCRIT 38.3 % (36.0-47.0); HEMOGLOBIN 11.3 g/dl (12.0-15.5); MEAN CORPUSCULAR HEMOGLOBIN 25.8 pg (27.0-33.0); MEAN CORPUSCULAR HGB CONC 29.5 g/dl (32.0-36.5); MEAN CORPUSCULAR VOLUME 87.4 fl (80.0-96.0); PLATELET COUNT, AUTOMATED 419 10^3/uL (150-450); RED BLOOD COUNT 4.38 10^6/uL (4.00-5.40); WHITE BLOOD COUNT 15.3 10^3/uL (4.0-10.0)
[2020-04-03 06:58] LABS: BLOOD UREA NITROGEN 16 MG/DL (7-18); CALCIUM LEVEL 8.9 MG/DL (8.8-10.2); CARBON DIOXIDE LEVEL 34 MEQ/L (21-32); CHLORIDE LEVEL 99 MEQ/L (98-107); CREATININE FOR GFR 0.82 MG/DL (0.55-1.30); GLOMERULAR FILTRATION RATE > 60.0 (>45); GLUCOSE, FASTING 250 MG/DL (70-100); POTASSIUM SERUM 3.9 MEQ/L (3.5-5.1); SODIUM LEVEL 139 MEQ/L (136-145)
[2020-04-03] MEDS: ADVAIR HFA 115/21MCG INHALER INH SCH ×2 (07:28→20:31)
[2020-04-03] MEDS: SUCRALFATE 1 GM TAB PO SCH ×4 (07:30→20:14)
[2020-04-03 08:00] VITALS: BP 110/72
[2020-04-03] MEDS ORDERED: POTASSIUM CHLORIDE 10 MEQ SR TABLET PO SCH (09:00)
[2020-04-03] MEDS: ATORVASTATIN 20 MG TAB PO SCH (10:26)
[2020-04-03] MEDS: VITAMIN D 1,000 INTERNATIONAL UNITS TABLET PO SCH (10:26)
[2020-04-03] MEDS: methylPREDNISolone 125MG 2ML VIAL IV SCH ×2 (10:26→20:12)
[2020-04-03] MEDS: POTASSIUM CHLORIDE 10 MEQ SR TABLET PO SCH (10:27)
[2020-04-03] MEDS: SIMETHICONE 80 MG CHEW TAB PO SCH ×3 (10:27→20:13)
[2020-04-03] MEDS: GABAPENTIN 300 MG CAP PO SCH ×3 (10:27→20:13)
[2020-04-03] MEDS: TORSEMIDE 100 MG TAB PO SCH (10:28)
[2020-04-03] MEDS: FLUoxetine 20 MG CAP PO SCH (10:28)
[2020-04-03] MEDS: bisoproloL fumarate 5 MG TAB PO SCH (10:28)
[2020-04-03] MEDS: MELOXICAM (MOBIC) 7.5 MG TAB PO SCH ×2 (10:29→17:26)
[2020-04-03] MEDS: FLUoxetine 10 MG CAP PO SCH (10:29)
[2020-04-03] MEDS: OMEPRAZOLE 20 MG CAP PO SCH (10:29)
[2020-04-03] MEDS: MULTIVITAMINS/MINERALS THERAP 1 TAB PO SCH (10:29)
[2020-04-03] MEDS: ALPRAZolam 0.5 MG TAB PO PRN (11:12)
[2020-04-03] MEDS: GASTROGRAFIN SOLUTION 30ML PO SCH ×2 (11:12→11:58)
[2020-04-03 12:00] VITALS: BP 155/76
[2020-04-03] MEDS ORDERED: ISOVUE-370 76% 100ML VIAL As Ordered ONE (12:21)
--- NOTE | 2020-04-03 13:30 | REP ---
INDICATION: Abdominal pain and bloating, SBO? mesenteric ischemia?. COMPARISON: 01/20/2018 TECHNIQUE: Oral Gastrografin mixture per our bowel contrast protocol given and bolus of 100 mL Isovue 370 scanning through the abdomen and pelvis with coronal and sagittal reconstructions. Delayed images through the abdomen also provided. FINDINGS: CT abdomen: Abdominal glass curvature gauger film shows a nonspecific gas pattern. Curvilinear fibrotic or atelectatic changes medial basal segment of the left lower lobe are noted no effusion or acute infiltrate. I see no hiatal hernia. Diffuse fatty infiltration of the liver which is vertical diameter of the 19.8 cm consistent with some hepatomegaly the right hepatic lobe is prominent there is no splenomegaly, hepatic or splenic suspicious focal lesion no intrahepatic biliary dilatation. Gallbladder is surgically absent. Common duct without calcified stone visualized pancreas without mass, ductal dilatation, cyst, adjacent adenopathy or fluid collection. The adrenal glands shows stable appearance with nodular thickening on both limbs of the right adrenal and diffuse thickening on the left consistent with adrenal hyperplasia. The kidneys show symmetric enhancement and no definite stone, cyst, solid mass or hydronephrosis. The aorta has atherosclerotic calcification without aneurysm. No periaortic or retroperitoneal pathologic sized lymphadenopathy. Small bowel loops show oral contrast into the proximal loops of ileum with no dilated loops air-fluid levels or sign of obstruction. No oral contrast reached the terminal ileum or cecum. Stool and gas are seen scattered in the colon. There is no sign of colitis, diverticulitis stricture or mass the abdominal portion of this exam appendix is surgically absent. I see no ascites or free air in the abdomen or pelvis. Atherosclerotic calcifications of the aorta without aneurysm noted. No periaortic, mesenteric or retroperitoneal pathologic sized lymphadenopathy. The bone windows show advanced degenerative disc changes at L4-5 and L5-S1 with narrowing and vacuum phenomenon but no compression fracture or interval change. Facet arthropathy lower lumbar spine is identified. Visualized ribs intact CT pelvis: Sacrum, pelvis, hips and pubic bones show some degenerative changes without destructive lesion or fracture. The distal left colon shows some diverticulosis without diverticulitis or colitis sigmoid was unremarkable. No rectal mass or wall thickening suggested. There is no ventral or inguinal hernia nor pathologic sized inguinal adenopathy. Proximal ileum is seen with oral contrast but no dilated small bowel loops or air-fluid levels. The uterus is not enlarged. No pelvic mass. IMPRESSION: : 1. Small bowel loops contrast or fluid-filled but not dilated and without air-fluid levels no sign of obstruction 2. Few scattered diverticula distal left colon without signs of colitis or diverticulitis anywhere in the colon. No stricture or mass identified. 3. Mild hepatomegaly and fatty change of the liver without biliary dilatation. No splenomegaly. Gallbladder absent. Pancreas unremarkable. 4. Adrenal hyperplasia. Kidneys without acute finding. Atherosclerotic calcifications aorta without aneurysm. Nothing acute. <Electronically signed by Ney Ramos > 04/03/20 [id number]
--- NOTE | 2020-04-03 14:42 | IPNPDOC ---
Subjective Date Seen The patient was seen on 04/03/20. Subjective Chief Complaint/HPI Ms. Zavala is a 64 year old female COPD, SUYAPA, bipolar, and chronic hypoxic respiratory failure here with dyspnea secondary to COPD exacerbation. This morning, she still had some abdominal pain. Checked a CT abd/pelvis with contrast to look for ischemic bowel, but was negative. No SBO. No BM since yesterday. Otherwise denies fever or dysuria. Still has dyspnea and abdominal pain. This morning, she was drinking large volumes of coffee. Will place her on 1500mL fluid restriction Objective Physical Examination General Exam: Positive: Alert, Cooperative Eye Exam: Positive: EOMI; Negative: Sclera icteric ENT Exam: Positive: Atraumatic Neck Exam: Positive: Supple Chest Exam: Positive: Diminished Heart Exam: Positive: Rate Normal, Regular Rhythm Abdomen Exam: Positive: Normal bowel sounds, Soft; Negative: Tenderness Extremity Exam: Positive: Edema (mild pitting) Neuro Exam: Positive: Cranial Nerves 3-12 NL Psych Exam: Positive: Mental status NL, Mood NL Assessment /Plan Assessment Ms. Zavala is a 64 year old female COPD, SUYAPA, bipolar, and chronic hypoxic respiratory failure here with dyspnea secondary to COPD exacerbation. She will be started on IV steroids, IV antibiotics, and duonebs scheduled and as needed. Otherwise, this morning, she was drinking large volumes of coffee. Will place a 1500mL fluid restriction Plan/VTE VTE Prophylaxis Ordered?: Yes Plan 1. COPD exacerbation -IV steroids, IV antibiotics, and duonebs -Continue inhalers -Supplemental oxygen 2. Lactic acidosis -Type B lactic acidosis secondary to albuterol 3. CAD s/p stents -Stable, no active chest pain -Continue statin and BB 4. Dyspepsia -Continue omeprazole -Added carafate and simethicone 5. Hypothyroidism -Continue levothyroxine 6. DM complicated with neuropathy -Sliding scale insulin -Gabapentin -Carbohydrate consistent diet 7. CHF -Continue BB and diuretics -She does have increase weight gain when compared with November 2019 and nursing reports patient drinking large amounts of coffee -Fluid restrict 1500mL 8. DVT ppx -SCD and TEDs VS, I&O, 24H, Fishbone Vital Signs/I&O Vital Signs Date Time Temp Pulse Resp B/P (MAP) Pulse Ox O2 Delivery O2 Flow Rate FiO2 04/03/20 12:00 97.8 96 20 155/76 (102) 95 Nasal Cannula 3.0 I&O- Last 24 Hours up to 6 AM 04/03/20 06:00 Intake Total 250 ml Output Total 1200 ml Balance -950 ml Laboratory Data 24H LABS Laboratory Tests 2 04/02/20 15:18: Immature Granulocyte % (Auto) 0.8, Neutrophils (%) (Auto) 82.6H, Lymphocytes (%) (Auto) 9.3L, Monocytes (%) (Auto) 6.1H, Eosinophils (%) (Auto) 0.9, Basophils ( %) (Auto) 0.3, Neutrophils # (Auto) 12.6H, Lymphocytes # (Auto) 1.4L, Monocytes # (Auto) 0.9H, Eosinophils # (Auto) 0.1, Basophils # (Auto) 0.1, Nucleated Red Blood Cells % (auto) 0.0, Lactic Acid Level 3.3*H, Total Bilirubin 0.3, Direct Bilirubin 0.1, Aspartate Amino Transf (AST/SGOT) 29, Alanine Aminotransferase (ALT/SGPT) 47, Alkaline Phosphatase 135H, PH-Ssv-Z-Type Natriuretic Peptide 52, Total Protein 6.9, Albumin 3.5, Albumin/Globulin Ratio 1.0L, Thyroid Stimulating Hormone (TSH) 0.434 04/02/20 15:19: POC Glucose (Misc Panel) 258H, POC Sodium (Misc Panel) 138, POC Potassium (Misc Panel) 4.3, POC Chloride (Misc Panel) 93L, POC Total CO2 (Misc Panel) 36.0H, POC Blood Urea Nitrogen (Misc Panel 14, POC Ionized Calcium (Misc Panel) 4.3L, POC Creatinine (Misc Panel) 0.6, POC Hematocrit (Misc Panel) 36.0L 04/02/20 15:21: POC Troponin I (Misc) 0.00 04/02/20 19:31: Lactic Acid Level 2.6*H 04/03/20 00:10: Bedside Glucose (Misc Panel) 262H 04/03/20 00:12: Lactic Acid Followup at 4 Hours 3.1*H 04/03/20 06:15: Nucleated Red Blood Cells % (auto) 0.0, Anion Gap 6L, Glomerular Filtration Rate > 60.0, Calcium Level 8.9 04/03/20 06:47: Lactic Acid Level 3.4*H 04/03/20 11:16: Bedside Glucose (Misc Panel) 251H 04/03/20 11:29: Lactic Acid Followup at 4 Hours 3.0*H CBC/BMP Laboratory Tests 04/02/20 15:18 04/03/20 06:15 Microbiology Microbiology 04/02/20 Respiratory Virus Panel (PCR) ([facility]) - Final, Complete 04/02/20 Blood Culture, Received Pending 04/02/20 Blood Culture, Received Pending BRIAN BROWN DO Apr 03, 2020 14:42
[2020-04-03] MEDS: DOCUSATE SODIUM 100 MG CAP PO SCH ×2 (14:45→20:14)
[2020-04-03] MEDS ORDERED: MIRALAX *UNIT DOSE* 17GM PACKET PO PRN (14:45)
[2020-04-03] MEDS: AZITHROMYCIN INJ 500 MG, VIAL MATE ADAPTER 1 EACH in D5W 250 ML IV SCH (18:05)
[2020-04-03 20:00] VITALS: BP 143/77
[2020-04-04 04:00] VITALS: BP 149/74
[2020-04-04] MEDS: IPRATROPIUM 0.5MG/ALBUTEROL 2.5MG INH SOL UD 3ML (DUONEB) NEB SCH ×3 (04:02→11:42)
[2020-04-04] MEDS: ALPRAZolam 0.5 MG TAB PO PRN (04:58)
[2020-04-04] MEDS: LEVOTHYROXINE 25MCG TABLET (0.025MG) PO SCH (05:00)
[2020-04-04 06:31] LABS: HEMATOCRIT 37.4 % (36.0-47.0); MEAN CORPUSCULAR HGB CONC 29.4 g/dl (32.0-36.5); MEAN CORPUSCULAR VOLUME 88.4 fl (80.0-96.0); PLATELET COUNT, AUTOMATED 422 10^3/uL (150-450); RED BLOOD COUNT 4.23 10^6/uL (4.00-5.40); WHITE BLOOD COUNT 16.6 10^3/uL (4.0-10.0)
[2020-04-04 06:57] LABS: BLOOD UREA NITROGEN 20 MG/DL (7-18); CALCIUM LEVEL 9.2 MG/DL (8.8-10.2); CARBON DIOXIDE LEVEL 34 MEQ/L (21-32); CHLORIDE LEVEL 99 MEQ/L (98-107); CREATININE FOR GFR 0.83 MG/DL (0.55-1.30); GLOMERULAR FILTRATION RATE > 60.0 (>45); GLUCOSE, FASTING 307 MG/DL (70-100); POTASSIUM SERUM 4.4 MEQ/L (3.5-5.1); SODIUM LEVEL 139 MEQ/L (136-145)
[2020-04-04 08:00] VITALS: BP 144/78
[2020-04-04] MEDS: SUCRALFATE 1 GM TAB PO SCH ×2 (08:00→12:32)
[2020-04-04] MEDS: ADVAIR HFA 115/21MCG INHALER INH SCH (08:00)
[2020-04-04] MEDS: methylPREDNISolone 125MG 2ML VIAL IV SCH (08:01)
[2020-04-04] MEDS: MULTIVITAMINS/MINERALS THERAP 1 TAB PO SCH (08:04)
[2020-04-04] MEDS: SIMETHICONE 80 MG CHEW TAB PO SCH (08:04)
[2020-04-04] MEDS: OMEPRAZOLE 20 MG CAP PO SCH (08:04)
[2020-04-04] MEDS: VITAMIN D 1,000 INTERNATIONAL UNITS TABLET PO SCH (08:06)
[2020-04-04] MEDS: POTASSIUM CHLORIDE 10 MEQ SR TABLET PO SCH (08:06)
[2020-04-04] MEDS: ATORVASTATIN 20 MG TAB PO SCH (08:07)
[2020-04-04 08:12] VITALS: BP 144/78
[2020-04-04] MEDS: bisoproloL fumarate 5 MG TAB PO SCH (08:12)
[2020-04-04] MEDS: HumaLOG INSULIN (NovoLOG) PER UNIT SC SCH ×2 (08:13→12:36)
[2020-04-04] MEDS: DOCUSATE SODIUM 100 MG CAP PO SCH (08:14)
[2020-04-04] MEDS: FLUoxetine 10 MG CAP PO SCH (08:14)
[2020-04-04] MEDS: TORSEMIDE 100 MG TAB PO SCH (08:15)
[2020-04-04] MEDS: GABAPENTIN 300 MG CAP PO SCH (08:16)
[2020-04-04] MEDS: FLUoxetine 20 MG CAP PO SCH (08:25)
[2020-04-04] MEDS: MELOXICAM (MOBIC) 7.5 MG TAB PO SCH (08:25)
[2020-04-04] MEDS ORDERED: AZIT500T5 PO (09:38)
[2020-04-04] MEDS ORDERED: SIME80TA PO (09:38)
[2020-04-04] MEDS ORDERED: PRED10TA2 PO (09:38)
[2020-04-04] MEDS ORDERED: TORSEMIDE (DEMADEX) 50 MG PER 1/2 TAB PO SCH (10:11)
--- NOTE | 2020-04-04 18:03 | DS.PDOC ---
Discharge Summary General Date of Admission Apr 02, 2020 at 18:43 Date of Discharge Apr 04, 2020 Attending Physician: BRIAN BROWN DO Discharge Summary PROCEDURES PERFORMED DURING STAY: None ADMITTING DIAGNOSES: 1. COPD exacerbation 2. Lactic acidosis 3. CAD s/p stents 4. Dyspepsia 5. Hypothyroidism 6. DM complicated with neuropathy 7. CHF DISCHARGE DIAGNOSES: 1. COPD exacerbation 2. Lactic acidosis 3. CAD s/p stents 4. Dyspepsia 5. Hypothyroidism 6. DM complicated with neuropathy 7. CHF COMPLICATIONS/CHIEF COMPLAINT: Copd Exacerbation. HISTORY OF PRESENT ILLNESS: Ms. Zavala is a 64 year old female COPD, SUYAPA, bipolar, and chronic hypoxic respiratory failure here with dyspnea secondary to COPD exacerbation. She is a resident of [facility]. Yesterday, she was walking to the bathroom and back. She felt winded. Her rescue inhaler did not help and she came to the ED. Denies any sick contacts or recent travel. Work up was significant for a WBC of 15.3 and a lactic acid of 3.3. Otherwise, when I spoke with her, she complained of abdominal pain associated with food and gas. HOSPITAL COURSE: During her hospitalization, she did well. She had complained of abdominal pain. Did a trial of carafate and simethicone. The following day, she was complaining of more abdominal pain and that she had not yet had a bowel movement. Obtained CT abdomen which did not demonstrate an acute process. The next day she felt well. Reports her abdominal discomfort is more from bloating and gas. Will continue the simethicone. Otherwise, today she denies any fever, chest pain, or dysuria. Dyspnea and abdominal pain improved. She was returned to [facility] DISCHARGE MEDICATIONS: Please see below. ALLERGIES: Please see below. PHYSICAL EXAMINATION ON DISCHARGE: VITAL SIGNS: Please see below. GENERAL: Comfortable, in no apparent distress. HEENT: Head normocephalic/atraumatic, EOMI, sclera clear. NECK: Supple RESPIRATORY: Diminished breath sounds but otherwise clear CARDIOVASCULAR: Regular rate and rhythm. ABDOMEN: Obese, but soft, no guarding or rebound tenderness. Normal bowel sounds. MUSCLE SKELETAL: Bilateral pitting edema NEUROLOGICAL: CN 312 grossly intact, no focal deficits noted. PSYCHOLOGICAL: Normal mood and affect LABORATORY DATA: Please see below. IMAGING: CT of abdomen and pelvis 1. Small bowel loops contrast or fluid-filled but not dilated and without air- fluid levels no sign of obstruction 2. Few scattered diverticula distal left colon without signs of colitis or diverticulitis anywhere in the colon. No stricture or mass identified. 3. Mild hepatomegaly and fatty change of the liver without biliary dilatation. No splenomegaly. Gallbladder absent. Pancreas unremarkable. 4. Adrenal hyperplasia. Kidneys without acute finding. Atherosclerotic calcifications aorta without aneurysm. Nothing acute. Chest x-ray No new infiltrate. Bilateral perihilar linear fibrosis. Otherwise no acute disease. PROGNOSIS: Stable ACTIVITY: As tolerated DIET: Carbohydrate consistent diet, 2 g sodium diet DISCHARGE PLAN: Return to [facility] DISPOSITION: [facility]. DISCHARGE INSTRUCTIONS: 1. With your PCP within 5 days. 2. Take your regular steroid dose with the steroid taper. When you finish the taper, continue your regular dose 3. Take antibiotics until completion DISCHARGE CONDITION: Stable Total time spent on discharge planning, discharge summary, and medication reconciliation: 45 minutes Vital Signs/I&Os Vital Signs Date Time Temp Pulse Resp B/P (MAP) Pulse Ox O2 Delivery O2 Flow Rate FiO2 04/04/20 08:12 85 144/78 04/04/20 08:00 97.6 18 93 NIPPV (BIPAP/CPAP) 12.0 I&O- Last 24 Hours up to 6 AM 04/04/20 05:59 Intake Total 1880 ml Output Total 0 ml Balance 1880 ml Laboratory Data Labs 24H Laboratory Tests 2 04/03/20 20:00: Bedside Glucose (Misc Panel) 344H 04/04/20 05:56: Nucleated Red Blood Cells % (auto) 0.0, Anion Gap 6L, Glomerular Filtration Rate > 60.0, Calcium Level 9.2 04/04/20 11:57: Bedside Glucose (Misc Panel) 258H CBC/BMP Laboratory Tests 04/04/20 05:56 FSBS Laboratory Tests Test 04/03/20 20:00 04/04/20 11:57 Range/Units Bedside Glucose (Misc Panel) 344 258 80-115 MG/DL Microbiology Microbiology 04/02/20 Respiratory Virus Panel (PCR) ([facility]) - Final, Complete 04/02/20 Blood Culture - Preliminary, Resulted No Growth after 48 hours. All Specime... 04/02/20 Blood Culture - Preliminary, Resulted No Growth after 48 hours. All Specime... Discharge Medications Scheduled Alprazolam (Alprazolam) 0.5 Mg Tablet, 0.5 MG PO BID, (Reported) Atorvastatin Calcium (Lipitor) 80 Mg Tab, 80 MG PO DAILY, (Reported) Azithromycin (Azithromycin) 500 Mg Tablet, 500 MG PO DAILY Bisoprolol Fumarate (Bisoprolol Fumarate) 5 Mg Tab, 2.5 MG PO DAILY, (Reported) Cholecalciferol (Vitamin D3) (Vitamin D3) 1,000 Unit Tablet, 5,000 UNITS PO DAILY, (Reported) TAKES AT LUNCH Fluoxetine Hcl (Fluoxetine HCl) 20 Mg Capsule, 20 MG PO DAILY, (Reported) WITH 10MG FOR A TOTAL OF 30MG Fluoxetine Hcl (Fluoxetine HCl) 10 Mg Capsule, 10 MG PO DAILY, (Reported) WITH 20MG FOR A TOTAL OF 30MG Gabapentin (Gabapentin) 600 Mg Tablet, 600 MG PO TID, (Reported) Glipizide (Glipizide ER) 5 Mg Tab.er.24, 5 MG PO BID, (Reported) TAKES AM AND 1200 Ipratropium/Albuterol Sulfate (Iprat-Albut 0.5-3(2.5) mg/3 ml) 3 Ml Ampul.neb, 1 VIAL INH QID, (Reported) Levothyroxine Sodium (Levoxyl) 25 Mcg Tab, 25 MCG PO QAM, (Reported) Linagliptin (Tradjenta) 5 Mg Tablet, 5 MG PO DAILY, (Reported) Meloxicam (Mobic) 7.5 Mg Tablet, 7.5 MG PO BID, (Reported) WITH FOOD Menthol/Zinc Oxide (Gold Tavares Medicated Body Powd) 113 Gm Powder, 1 DOSE TOP BID, (Reported) APPLY TO SKIN FOLDS Multivitamins (Thera M Plus Tablet) 1 Each Tablet, 1 TAB PO DAILY, (Reported) Omeprazole (Omeprazole) 20 Mg Capsule.dr, 20 MG PO DAILY, (Reported) Potassium Chloride (Potassium Chloride) 20 Meq Tab.er.prt, 20 MEQ PO DAILY, (Reported) Potassium Chloride (Potassium Chloride) 8 Meq Capsule.er, 16 MEQ PO DAILY, (Reported) Prednisone (Prednisone) 10 Mg Tablet, 10 MG PO DAILY, (Reported) Prednisone (Prednisone) 10 Mg Tablet, 10 MG PO TAPER Take 4 tabs daily x 3 days, then 3 tabs daily x 3 days, then 2 tabs daily x 3 days, then 1 tab daily x 3 days and stop Salmeterol/Fluticasone (Advair 250-50 Diskus) 1 Each Blst.w.dev, 1 PUFF INH BID, (Reported) Simethicone (Simethicone) 80 Mg Tab.chew, 80 MG PO TID Torsemide (Torsemide) 100 Mg Tablet, 50 MG PO DAILY, (Reported) Umeclidinium [place] (Incruse Ellipta) 62.5 Mcg Blst.w.dev, 1 PUFF INH DAILY, (Reported) Scheduled PRN Acetaminophen (Acetaminophen 8 Hour) 650 Mg Tablet.er, 650 MG PO BID PRN for PAIN, (Reported) Albuterol Sulfate (Ventolin Hfa) 108 Mcg/Act Aer, 2 PUFFS INH Q4H PRN for S HORTNESS OF BREATH, (Reported) Calcium Carbonate (Tums) 200 Mg Tab.chew, 500 MG PO QID PRN for HEARTBURN, (Reported) Diclofenac Sodium (Voltaren) 100 Gm Gel..gram., 4 GRAM TOP TID PRN for PAIN, (Reported) APPLY TO AREAS OF PAIN. MAY SELF-ADMINISTER Hydrocodone/Acetaminophen ([place] 5-325 Tablet) 1 Each Tablet, 1 TAB PO BID PRN for PAIN, (Reported) Ipratropium/Albuterol Sulfate (Iprat-Albut 0.5-3(2.5) mg/3 ml) 3 Ml Ampul.neb, 1 VIAL INH Q6H PRN for SHORTNESS OF BREATH, (Reported) Levalbuterol HCl (Levalbuterol HCl) 1.25 Mg/3 Ml Vial.neb, 1.25 MG NEB Q4H PRN for SOB/WHEEZING, (Reported) Lidocaine HCl (Aspercreme) 4% Cream..g., 1 DOSE TOP QID PRN for PAIN, (Reported) APPLY TO ANY PAINFUL AREAS Milk Of Magnesia (Milk of Magnesia) 2,400 Mg/10 Ml Oral.susp, 10 ML PO DAILY PRN for CONSTIPATION, (Reported) Nystatin (Nystatin Powder) 15 Gm Powder, 1 DOSE TOP BID PRN for ITCH/RASH, (Reported) USES UNDER BREASTS Allergies Coded Allergies: Cat Dander (Verified Allergy, Unknown, 01/29/20) Dust (Verified Allergy, Unknown, 01/29/20) BRIAN BROWN 11, 2020 18:03
== END 2020-04-04 13:10 ==
LOC: M ED 14:27 → M ED INP 18:43 → ENRESERV 22:24 → M PCU 23:25
PROVIDERS: ADMIT Internal Medicine; ATTEND Internal Medicine
DX: J44.1 Chronic obstructive pulmonary disease with (acute) exacerbation (principal); E87.2 Acidosis; I25.10 Atherosclerotic heart disease of native coronary artery without angina pectoris; Z98.61 Coronary angioplasty status; K30 Functional dyspepsia; E03.9 Hypothyroidism, unspecified; E11.40 Type 2 diabetes mellitus with diabetic neuropathy, unspecified; I50.9 Heart failure, unspecified; G47.33 Obstructive sleep apnea (adult) (pediatric); F31.9 Bipolar disorder, unspecified; J96.11 Chronic respiratory failure with hypoxia; Z79.52 Long term (current) use of systemic steroids; I10 Essential (primary) hypertension; I25.2 Old myocardial infarction; Z79.899 Other long term (current) drug therapy; Z87.891 Personal history of nicotine dependence; K21.9 Gastro-esophageal reflux disease without esophagitis
CPT/HCPCS: 36415; 71045; 74177; 80047; 80048; 80076; 83605; 83880; 84443; 84484; 85025; 85027; 87040; 87486; 87581; 87633; 87798; 93005; 93041; 94640; 94760; 96365; 96366; 96375; 96376; 97116; 97161; 99285; G0378; J0456; J2930; Q9963; Q9967

== ENCOUNTER 2020-04-27 10:32 | Observation (INO) | payer MEDICARE, MEDICAID ==
[~2020-04-27] VITALS: Ht 165.1 cm; Wt 107.9 kg
[~2020-04-27 10:32] MED LIST changes: +ACET-838 PO; +AZIT500T5 PO; +FLUO10CA16 PO; +FLUO20CA20 PO; +GABA-282 PO; -GABA-843 PO; +LEVA1.2525 NEB; -NON-325T5 PO; +SIME80TA PO; +TORS100T PO; +TUMS500C PO
[2020-04-27] MEDS ORDERED: methylPREDNISolone 125MG 2ML VIAL IV ONE (11:15)
--- NOTE | 2020-04-27 11:35 | REP ---
INDICATION: DYSPNEA/COUGH. COMPARISON: Comparison chest x-ray April 02, 2020.. TECHNIQUE: Sitting AP portable radiograph. FINDINGS: Oxygen delivery tubing and monitoring electrodes are seen. The lungs are well inflated and clear. The pleural angles are sharp. Cardiomediastinal silhouette is unremarkable and unchanged. Pulmonary vasculature is not increased. IMPRESSION: No active cardiopulmonary disease. No infiltrate visible. <Electronically signed by Tristan Higgins > 04/27/20 [id number]
[2020-04-27 11:37] LABS: VENOUS BASE EXCESS 5.2 (-2.0-2.0); VENOUS HCO3 30.7 MEQ/L (23.0-27.0); VENOUS O2 SATURATION 86.5 % (60.0-80.0); VENOUS PARTIAL PRESSURE CO2 49.6 mmHg (38.0-50.0); VENOUS PARTIAL PRESSURE O2 52.7 mmHg (30.0-50.0); VENOUS STANDARD HCO3 28.9 MEQ/L; VENOUS TOTAL CO2 32.3 MEQ/L (24.0-28.0)
[2020-04-27 11:40] LABS: BASO # 0.1 10^3/uL (0.0-0.2); BASO % 0.6 % (0.0-1.0); EOS # 0.2 10^3/uL (0.0-0.5); EOS % 1.4 % (0.0-3.0); HEMATOCRIT 36.4 % (36.0-47.0); HEMOGLOBIN 10.8 g/dl (12.0-15.5); LYMPH # 1.2 10^3/uL (1.5-5.0); LYMPH % 9.2 % (24.0-44.0); MEAN CORPUSCULAR HEMOGLOBIN 26.2 pg (27.0-33.0); MEAN CORPUSCULAR HGB CONC 29.7 g/dl (32.0-36.5); MEAN CORPUSCULAR VOLUME 88.3 fl (80.0-96.0); MONO # 0.8 10^3/uL (0.0-0.8); MONO % 6.5 % (0.0-5.0); NEUTROPHILS # 10.3 10^3/uL (1.5-8.5); NEUTROPHILS % 81.4 % (36.0-66.0); PLATELET COUNT, AUTOMATED 297 10^3/uL (150-450); RED BLOOD COUNT 4.12 10^6/uL (4.00-5.40); WHITE BLOOD COUNT 12.6 10^3/uL (4.0-10.0)
[2020-04-27] MEDS: COMBIVENT RESPIMAT 100-20MCG INHALER 4GM INH SCH ×6 (11:40→15:44)
[2020-04-27 12:18] LABS: ALBUMIN 3.2 GM/DL (3.2-5.2); ALT/SGPT 73 U/L (12-78); BILIRUBIN,DIRECT < 0.1 MG/DL (0.0-0.2); BILIRUBIN,TOTAL 0.2 MG/DL (0.2-1.0); BLOOD UREA NITROGEN 14 MG/DL (7-18); CALCIUM LEVEL 8.7 MG/DL (8.8-10.2); CARBON DIOXIDE LEVEL 35 MEQ/L (21-32); CHLORIDE LEVEL 97 MEQ/L (98-107); CK-MB VALUE MASS 1.5 NG/ML (<3.6); CPK CREATINE PHOSPHOKINASE 143 U/L (26-192); CREATININE FOR GFR 0.78 MG/DL (0.55-1.30); GLOMERULAR FILTRATION RATE > 60.0 (>45); GLUCOSE, FASTING 279 MG/DL (70-100); MB/CK RELATIVE INDEX 1.05 (< OR =4); POTASSIUM SERUM 3.7 MEQ/L (3.5-5.1); SODIUM LEVEL 138 MEQ/L (136-145); THYROID STIMULATING HORMONE 0.779 uIU/ML (0.358-3.740); THYROXINE (T4) 8.7 UG/DL (4.5-12.0); TOTAL PROTEIN 6.7 GM/DL (6.4-8.2); TROPONIN I < 0.02 NG/ML (< 0.10)
[2020-04-27] MEDS ORDERED: NORCO, ANEXSIA 5/325MG TABLET (HYDROcodone/ACETAMINOPHEN) PO ONE (13:45)
[2020-04-27] MEDS ORDERED: IPRATROPIUM 0.5MG/ALBUTEROL 2.5MG INH SOL UD 3ML (DUONEB) NEB ONE (16:00)
[2020-04-27] MEDS: NS 1,000 ML IV SCH (17:10)
[2020-04-27] MEDS ORDERED: ACETAMINOPHEN TAB 650MG DOSE (2X325MG) PO PRN (17:15)
[2020-04-27] MEDS ORDERED: MOM 30ML SUSPENSION UDC PO PRN (17:15)
[2020-04-27] MEDS ORDERED: MAALOX 30 ML SUSP *UDC PO PRN (17:15)
[2020-04-27] MEDS ORDERED: ALBUTEROL SULFATE 2.5 MG/0.5 ML INH NEB SOLN NEB PRN (17:15)
--- NOTE | 2020-04-27 17:24 | HPEPDOC ---
[facility] Medical History & Physical Date of Admission Apr 27, 2020 Date of Service: Apr 27, 2020 History and Physical CHIEF COMPLAINT: Shortness of breath HISTORY OF PRESENT ILLNESS: 64 F PMHx advanced COPD on 3L o2, CHFpEF, SUYAPA using BiPAP, DM, Cor pulmonale, CAD, MDD, Hypothyroid who is a [facility] who's been feeling increasing shortness of breath over the past 1 week and especially on exertion. Today she has a finger pulse oximeter and she checked her own oxygen saturation and noticed it was lower than usual and so she called EMS and came to the ED. In the ED patient was saturating well on her home oxygen but was though to have some wheezing on exam and was admitted for acute on chronic COPD exacerbation. Patient tells me she's a little short of breath but otherwise feels normal. She denies an active cough but has some slight increased sputum production. She denies any fever, chills, CP, or palpations. Tells me this feels similar to her COPD exacerbations but is unsure what might've triggered it over the past week. Hospitalist service requested to admit the patient for acute on chronic CHF exacerbation. In the ED lactate was mildly elevated to 2.5 and I asked for patient to receive 1L bolus NS and maintenance fluids, to initiate Abx and draw a second blood culture. Also repeat lactate in 4 hrs and then again in the morning. PAST MEDICAL HISTORY: Adanced COPD on 3L o2 and chronic steroids CHFpEF SUYAPA using BiPAP DM HTN Cor Pulmonale CAD HLD MDD Hypothyroidism Chronic back pain Bipolar GERD PAST SURGICAL HISTORY: Appendectomy. Tonsillectomy. Breast surgery. Exploratory laparotomy. Cholecystectomy. SOCIAL HISTORY: Denies recent alcohol use. Denies active tobacco use. 45 year smoking history Denies illicit drug use Healthcare proxy is Ina her daughter, phone [phone] FAMILY HISTORY: Reviewed and none contributory Mother lung cancer, CAD Father CAD ALLERGIES: Please see below. REVIEW OF SYSTEMS: 10 point review of systems complete all negative otherwise stated in HPI Denies chest pain, palpitations. Denies Abdominal pain Denies Dizziness, fever, chills. HOME MEDICATIONS: Please see below. PHYSICAL EXAMINATION: Constitutional: Awake and alert, in no apparent distress in the ED ENT: Sclera are clear Respiratory: Lungs very minimal wheezing bilaterally, fair air entry. No crackles. No apparent respiratory distress. No use of accessory muscles. On 3L o2 by NC which is her baseline saturating 92% Cardiovascular: RRR S1 and S2 are normal, no murmur. No JVD. Gastrointestinal: Abdomen is soft, obese, non distended, non tender, BS present. Musculoskeletal: 1+ LE edema Mental Status: A&O x3, normal affect Skin: Warm, dry LABORATORY DATA: See below. IMAGING: CXR 04/27/2020 impression: No active cardiopulmonary disease. No infiltrate visible. MICROBIOLOGY: Please see below. ASSESSMENT/PLAN # Acute on chronic COPD exacerbation: Advanced COPD on 3L o2 at baseline and daily prednisone. Duonebs q6h scheduled and PRN. Azithromycin. IV solumedrol q8h. COVID negative. Titrate oxygen to keep saturation between 88-92%. # Lactic acidosis: 2.5 in the ED. Trend lactate. IVFs. Start Ceftx and Azithro. Fu BCx. # Leukocytosis: Mild elevation. Patient on chronic steroids. # Anemia: 10.8 on admit. Fu FOBT. No active bleed or melena reported. Trend CBC. # DM: ISS. Accuchecks, hypoglycemic protocol. # SUYAPA: can use home BiPAP machine # Cor pulmonate with pulmonary HTN: continue toresmide. # HTN: continue home meds. Monitor and titrate. # Hx CAD: ASA, statin # Hx CHFpEF: Echo 2018 EF 70-75%. Grade 1 LV diastolic. Euvolemic on exam, some minimal LE edema. # Chronic back pain: continue home gabapentin # HLD: continue home statin # Depression: fluoxetine # Hypothyroidism: continue home Synthroid dose. TSH. # DVT prophylaxis: lovenox A Yousef Hospitalist Vital Signs Vital Signs Date Time Temp Pulse Resp B/P (MAP) Pulse Ox O2 Delivery O2 Flow Rate FiO2 04/27/20 13:41 16 04/27/20 11:47 91 92 04/27/20 11:45 158/77 (104) 04/27/20 10:51 98.8 04/27/20 10:44 3.0 Laboratory Data Labs 24H Laboratory Tests 2 04/27/20 11:27: Immature Granulocyte % (Auto) 0.9, Neutrophils (%) (Auto) 81.4H, Lymphocytes (%) (Auto) 9.2L, Monocytes (%) (Auto) 6.5H, Eosinophils (%) (Auto) 1.4, Basophils (%) (Auto) 0.6, Neutrophils # (Auto) 10.3H, Lymphocytes # (Auto) 1.2L, Monocytes # (Auto) 0.8, Eosinophils # (Auto) 0.2, Basophils # (Auto) 0.1, Nucleated Red Blood Cells % (auto) 0.0, Blood Gas Bicarbonate Standard 28.9, Venous Blood pH 7.410, Venous Blood Partial Pressure CO2 49.6, Venous Blood Partial Pressure O2 52.7H, Venous Blood Total Carbon Dioxide 32.3H, Venous Blood HCO3 30.7H, Venous Blood Oxygen Saturation 86.5H, Venous Blood Base Excess 5.2H, Anion Gap 6L, Glomerular Filtration Rate > 60.0, Lactic Acid Level 2.5*H, Calcium Level 8.7L, Total Bilirubin 0.2, Direct Bilirubin < 0.1, Aspartate Amino Transf (AST/SGOT) 35, Alanine Aminotransferase (ALT/SGPT) 73, Alkaline Phosphatase 143H, Total Creatine Kinase 143, Creatine Kinase MB 1.5, Creatine Kinase MB Relative Index 1.05, Troponin I < 0.02, Total Protein 6.7, Albumin 3.2, Albumin/Globulin Ratio 0.9L, Thyroid Stimulating Hormone (TSH) 0.779, Thyroxine (T4) 8.7 04/27/20 16:34: CBC/BMP Laboratory Tests 04/27/20 11:27 Microbiology Microbiology 04/27/20 Blood Culture, Received Pending Home Medications Scheduled Alprazolam (Alprazolam) 0.5 Mg Tablet, 0.5 MG PO BID Aspirin (Aspirin EC) 81 Mg Tablet.dr, 81 MG PO DAILY Atorvastatin Calcium (Lipitor) 80 Mg Tab, 80 MG PO DAILY Bisoprolol Fumarate (Bisoprolol Fumarate) 5 Mg Tab, 2.5 MG PO DAILY Cholecalciferol (Vitamin D3) (Vitamin D3) 1,000 Unit Tablet, 5,000 UNITS PO DAILY TAKES AT LUNCH Fluoxetine Hcl (Fluoxetine HCl) 20 Mg Capsule, 20 MG PO DAILY WITH 10MG FOR A TOTAL OF 30MG Fluoxetine Hcl (Fluoxetine HCl) 10 Mg Capsule, 10 MG PO DAILY WITH 20MG FOR A TOTAL OF 30MG Gabapentin (Gabapentin) 600 Mg Tablet, 600 MG PO TID Glipizide (Glipizide ER) 5 Mg Tab.er.24, 5 MG PO BID TAKES AM AND 1200 Ipratropium/Albuterol Sulfate (Iprat-Albut 0.5-3(2.5) mg/3 ml) 3 Ml Ampul.neb, 1 VIAL INH QID Levothyroxine Sodium (Levoxyl) 25 Mcg Tab, 25 MCG PO QAM Linagliptin (Tradjenta) 5 Mg Tablet, 5 MG PO DAILY Meloxicam (Mobic) 7.5 Mg Tablet, 7.5 MG PO BID WITH FOOD Menthol/Zinc Oxide (Gold Tavares Medicated Body Powdr) 113 Gm Powder, 1 APPLIC TOP BID APPLY TO SKIN FOLDS Multivitamins (Thera M Plus Tablet) 1 Each Tablet, 1 TAB PO DAILY Omeprazole (Omeprazole) 20 Mg Capsule.dr, 20 MG PO BID Potassium Chloride (Potassium Chloride) 20 Meq Tab.er.prt, 20 MEQ PO DAILY Prednisone (Prednisone) 10 Mg Tablet, 10 MG PO DAILY Salmeterol/Fluticasone (Advair 250-50 Diskus) 1 Each Blst.w.dev, 1 PUFF INH BID Simethicone (Simethicone) 80 Mg Tab.chew, 80 MG PO WM Torsemide (Torsemide) 100 Mg Tablet, 50 MG PO DAILY Umeclidinium [place] (Incruse Ellipta) 62.5 Mcg Blst.w.dev, 1 PUFF INH DAILY Scheduled PRN Acetaminophen (Acetaminophen 8 Hour) 650 Mg Tablet.er, 650 MG PO BID PRN for PAIN Albuterol Sulfate (Ventolin Hfa) 108 Mcg/Act Aer, 2 PUFFS INH Q4H PRN for SHORTNESS OF BREATH Calcium Carbonate (Tums) 200 Mg Tab.chew, 500 MG PO QID PRN for HEARTBURN Diclofenac Sodium (Voltaren) 100 Gm Gel..gram., 4 GRAM TOP TID PRN for PAIN APPLY TO AREAS OF PAIN. MAY SELF-ADMINISTER Hydrocodone/Acetaminophen ([place] 5-325 Tablet) 1 Each Tablet, 1 TAB PO BID PRN for PAIN Ipratropium/Albuterol Sulfate (Iprat-Albut 0.5-3(2.5) mg/3 ml) 3 Ml Ampul.neb, 1 VIAL INH Q6H PRN for SHORTNESS OF BREATH Lidocaine HCl (Aspercreme) 4% Cream..g., 1 DOSE TOP QID PRN for PAIN APPLY TO ANY PAINFUL AREAS Milk Of Magnesia (Milk of Magnesia) 2,400 Mg/10 Ml Oral.susp, 10 ML PO DAILY PRN for CONSTIPATION Nystatin (Nystatin Powder) 15 Gm Powder, 1 DOSE TOP BID PRN for ITCH/RASH USES UNDER BREASTS Allergies Coded Allergies: Cat Dander (Verified Allergy, Unknown, 01/29/20) Dust (Verified Allergy, Unknown, 01/29/20) A-FIB/CHADSVASC A-FIB History Current/History of A-Fib/PAF?: No YOUSEJUAN JOSÉ Tomlin MD Apr 27, 2020 17:24
[2020-04-27 17:27] LABS: RSV AMPLIFICATION NEGATIVE (NEGATIVE)
[2020-04-27] MEDS ORDERED: SIME80TA PO (17:57)
[2020-04-27] MEDS ORDERED: ASPI81TA26 PO (17:57)
[2020-04-27] MEDS ORDERED: [UNRECOGNIZED DRUG - CODE] TOP (17:57)
[2020-04-27] MEDS ORDERED: NS 1,000 ML IV SCH (19:00)
[2020-04-27 19:25] VITALS: BP 124/73
[2020-04-27] MEDS: AZITHROMYCIN INJ 500 MG, VIAL MATE ADAPTER 1 EACH in D5W 250 ML IV SCH (20:27)
[2020-04-27] MEDS: methylPREDNISolone 125MG 2ML VIAL IV SCH (20:27)
[2020-04-27] MEDS: ALPRAZolam 0.5 MG TAB PO SCH (20:28)
[2020-04-27] MEDS: DOCUSATE SODIUM 100MG CAPSULE PO SCH (20:31)
[2020-04-27] MEDS: IPRATROPIUM 0.5MG/ALBUTEROL 2.5MG INH SOL UD 3ML (DUONEB) NEB SCH (20:49)
[2020-04-27] MEDS: cefTRIAXone SOD 1 GM in D5W MINI-BAG PLUS 50 ML IV SCH (22:16)
[2020-04-27] MEDS ORDERED: GLUCAGON INJ 1MG VIAL SC PRN (23:00)
[2020-04-27] MEDS ORDERED: DEXTROSE 50% 50 ML SYRINGE IV PRN (23:00)
[2020-04-27] MEDS ORDERED: CALCIUM CARBONATE 500 MG CHEW U/D PO PRN (23:00)
[2020-04-27] MEDS ORDERED: GLUCOSE 4GM CHEW TABLET PO PRN (23:00)
[2020-04-27] MEDS ORDERED: ALBUTEROL 90 MCG/ACT 8GM HFA INHALER INH PRN (23:00)
[2020-04-27] MEDS ORDERED: NYSTATIN 100,000 UNITS/GM TOPICAL PWD 15 GM TOP PRN (23:00)
[2020-04-27 23:34] VITALS: O2SAT 92
[2020-04-27] MEDS: HumaLOG INSULIN (NovoLOG) PER UNIT SC SCH (23:48)
[2020-04-27] MEDS: OMEPRAZOLE 20 MG CAP PO SCH (23:49)
[2020-04-27] MEDS: GABAPENTIN 300 MG CAP PO SCH (23:49)
[2020-04-27] MEDS: MELOXICAM (MOBIC) 7.5 MG TAB PO SCH (23:49)
[2020-04-28] MEDS: NS 1,000 ML IV SCH (00:51)
[2020-04-28] MEDS: IPRATROPIUM 0.5MG/ALBUTEROL 2.5MG INH SOL UD 3ML (DUONEB) NEB SCH ×4 (01:01→19:52)
[2020-04-28] MEDS ORDERED: NS 1,000 ML IV ONE ×2 (01:45→04:00)
[2020-04-28] MEDS: methylPREDNISolone 125MG 2ML VIAL IV SCH ×3 (02:55→20:55)
[2020-04-28] MEDS: LEVOTHYROXINE 25MCG TABLET (0.025MG) PO SCH (05:39)
[2020-04-28 06:00] VITALS: BP 137/72
--- NOTE | 2020-04-28 06:42 | ECGEPIP ---
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
[2020-04-28] MEDS: NORCO, ANEXSIA 5/325MG TABLET (HYDROcodone/ACETAMINOPHEN) PO PRN ×2 (06:48→20:58)
[2020-04-28 06:51] LABS: BASO % 0.1 % (0.0-1.0); HEMATOCRIT 36.3 % (36.0-47.0); HEMOGLOBIN 10.7 g/dl (12.0-15.5); LYMPH # 0.7 10^3/uL (1.5-5.0); MEAN CORPUSCULAR HEMOGLOBIN 25.6 pg (27.0-33.0); MEAN CORPUSCULAR HGB CONC 29.5 g/dl (32.0-36.5); MEAN CORPUSCULAR VOLUME 86.8 fl (80.0-96.0); MONO # 0.2 10^3/uL (0.0-0.8); MONO % 1.3 % (0.0-5.0); NEUTROPHILS # 10.8 10^3/uL (1.5-8.5); NEUTROPHILS % 91.6 % (36.0-66.0); PLATELET COUNT, AUTOMATED 304 10^3/uL (150-450); RED BLOOD COUNT 4.18 10^6/uL (4.00-5.40); WHITE BLOOD COUNT 11.8 10^3/uL (4.0-10.0)
[2020-04-28 07:20] LABS: ALT/SGPT 75 U/L (12-78); BILIRUBIN,TOTAL 0.4 MG/DL (0.2-1.0); BLOOD UREA NITROGEN 15 MG/DL (7-18); CALCIUM LEVEL 8.3 MG/DL (8.8-10.2); CARBON DIOXIDE LEVEL 30 MEQ/L (21-32); CHLORIDE LEVEL 103 MEQ/L (98-107); CREATININE FOR GFR 0.67 MG/DL (0.55-1.30); GLOMERULAR FILTRATION RATE > 60.0 (>45); GLUCOSE, FASTING 319 MG/DL (70-100); POTASSIUM SERUM 3.8 MEQ/L (3.5-5.1); SODIUM LEVEL 140 MEQ/L (136-145); TOTAL PROTEIN 6.9 GM/DL (6.4-8.2)
[2020-04-28] MEDS: ENOXAPARIN 40MG/0.4ML SYRINGE (J1650 PER 10MG) SC SCH (09:00)
[2020-04-28] MEDS: GABAPENTIN 300 MG CAP PO SCH ×3 (09:19→20:52)
[2020-04-28] MEDS: ASPIRIN 81 MG ENTERIC TAB PO SCH (09:19)
[2020-04-28] MEDS: DOCUSATE SODIUM 100MG CAPSULE PO SCH ×2 (09:20→20:52)
[2020-04-28] MEDS: VITAMIN D 1,000 INTERNATIONAL UNITS TABLET PO SCH (09:20)
[2020-04-28] MEDS: predniSONE 10 MG TAB PO SCH (09:20)
[2020-04-28] MEDS: FLUoxetine 10 MG CAP PO SCH (09:20)
[2020-04-28] MEDS: OMEPRAZOLE 20 MG CAP PO SCH ×2 (09:20→20:52)
[2020-04-28] MEDS: TORSEMIDE (DEMADEX) 50 MG PER 1/2 TAB PO SCH (09:21)
[2020-04-28] MEDS: ALPRAZolam 0.5 MG TAB PO SCH ×2 (09:21→20:52)
[2020-04-28] MEDS: BISOPROLOL FUM 2.5 MG PER 1/2TAB PO SCH (09:21)
[2020-04-28] MEDS: POTASSIUM CHLORIDE 10 MEQ SR TABLET PO SCH (09:22)
[2020-04-28] MEDS: MELOXICAM (MOBIC) 7.5 MG TAB PO SCH ×2 (09:23→20:52)
[2020-04-28] MEDS: SIMETHICONE 80 MG CHEW TAB PO SCH ×3 (09:23→17:40)
[2020-04-28] MEDS: ATORVASTATIN 20 MG TAB PO SCH (09:23)
[2020-04-28] MEDS: FLUoxetine 20 MG CAP PO SCH (09:23)
[2020-04-28] MEDS: HumaLOG INSULIN (NovoLOG) PER UNIT SC SCH ×4 (09:23→20:54)
[2020-04-28] MEDS ORDERED: EXCEDRIN MIGRAINE TABLET PO PRN (11:45)
[2020-04-28] MEDS ORDERED: EXCEDRIN MIGRAINE TABLET PO ONE (12:00)
[2020-04-28] MEDS ORDERED: LORazepam 2 MG TAB PO ONE (12:00)
[2020-04-28 14:00] VITALS: BP 140/82
--- NOTE | 2020-04-28 15:21 | IPNPDOC ---
Text Note Date of Service The patient was seen on 04/28/20. NOTE Subjective: Patient was seen and examined this morning at bedside tells me she wasn't able to get her BiPAP last night but it was transported to her from her residence by her daughter today. Says she continues to have some shortness of breath. Nurse reports overnight that she was also anxious. Patient is constantly checking her own oxygen saturation and becomes anxious anytime her oxygen saturation drops for a brief amount of time in which she acknowledges worsens her breathing. Objective: Constitutional: Awake and alert, anxious appearing ENT: Sclera are clear Respiratory: Lungs very minimal wheezing bilaterally, fair air entry. No crackles. No use of accessory muscles. On 3L o2 by NC which is her baseline saturating 93% Cardiovascular: RRR S1 and S2 are normal, no murmur. No JVD. Gastrointestinal: Abdomen is soft, obese, non distended, non tender, BS present. Musculoskeletal: 1+ LE pitting edema, slightly increased from yesterday Mental Status: A&O x3, normal affect Skin: Warm, dry Assessment/plan: 64 F PMHx advanced COPD on 3L o2, CHFpEF, SUYAPA using BiPAP, DM, Cor pulmonale, CAD, MDD, Hypothyroid who is a [place] resident who's been feeling increasing shortness of breath over the past 1 week and especially on exertion. Patient admitted to medical service for management of acute on chronic COPD exacerbation. # Acute on chronic COPD exacerbation: Advanced COPD on 3L o2 at baseline and daily prednisone. Duonebs q6h scheduled and PRN. Azithromycin. IV solumedrol q8h. COVID negative. Titrate oxygen to keep saturation between 88-92%. BiPAP. # Lactic acidosis: 2.5 in the ED. IVFs. Hold ABx, I do not suspect infection at this time. Was started on Ceftx and Azithromycin after admission, now stopped. Discussed with Dr Lowry, lactic acidosis likely secondary to her advanced COPD and frequent use of albuterol neb since admission. BCx negative to date. Fu UA. Shes been afebrile, leukocytosis downtrended and on steroids chronically. # Leukocytosis: Mild elevation. Patient on chronic steroids. # Anemia: 10.8 on admit. Fu FOBT. No active bleed or melena reported. Trend CBC. # DM: ISS. Accuchecks, hypoglycemic protocol. # SUYAPA: can use home BiPAP machine # Cor pulmonate with pulmonary HTN: continue toresmide. # HTN: continue home meds. Monitor and titrate. # Hx CAD: ASA, statin # Hx CHFpEF: Echo 2018 EF 70-75%. Grade 1 LV diastolic. Euvolemic on exam, some minimal LE edema. Iv Lasix PRN. # Chronic back pain: continue home gabapentin # HLD: continue home statin # Depression: fluoxetine # Hypothyroidism: continue home Synthroid dose. TSH ok. # DVT prophylaxis: mukulx [facility] VS,Fishbone, I+O VS, Fishbone, I+O Laboratory Tests 04/28/20 06:32 Vital Signs Date Time Temp Pulse Resp B/P (MAP) Pulse Ox O2 Delivery O2 Flow Rate FiO2 04/28/20 09:28 20 04/28/20 09:21 111 160/95 04/28/20 06:00 97.8 93 Nasal Cannula 3.5 I&O- Last 24 Hours up to 6 AM 04/28/20 06:00 Intake Total 2605 ml Output Total 400 ml Balance 2205 ml JUAN JOSÉ WHITESIDE MD Apr 28, 2020 15:21
[2020-04-28] MEDS ORDERED: FUROSEMIDE 100MG/10ML VIAL (J1940) IV ONE (16:00)
[2020-04-28] MEDS: AZITHROMYCIN INJ 500 MG, VIAL MATE ADAPTER 1 EACH in D5W 250 ML IV SCH (17:39)
[2020-04-28] MEDS: cefTRIAXone SOD 1 GM in D5W MINI-BAG PLUS 50 ML IV SCH (20:55)
[2020-04-28 21:00] VITALS: O2SAT 95
[2020-04-28 22:00] VITALS: BP 127/67
[2020-04-28] MEDS ORDERED: FUROSEMIDE 40MG/4ML VIAL (J1940) IV ONE (23:00)
[2020-04-29] MEDS: IPRATROPIUM 0.5MG/ALBUTEROL 2.5MG INH SOL UD 3ML (DUONEB) NEB SCH ×4 (02:16→20:47)
[2020-04-29] MEDS: LEVOTHYROXINE 25MCG TABLET (0.025MG) PO SCH (05:00)
[2020-04-29] MEDS: methylPREDNISolone 125MG 2ML VIAL IV SCH ×3 (05:01→20:29)
[2020-04-29 06:00] VITALS: BP 136/70
[2020-04-29 07:13] LABS: BASO % 0.1 % (0.0-1.0); HEMATOCRIT 37.9 % (36.0-47.0); HEMOGLOBIN 11.2 g/dl (12.0-15.5); LYMPH # 0.8 10^3/uL (1.5-5.0); LYMPH % 4.9 % (24.0-44.0); MEAN CORPUSCULAR HEMOGLOBIN 26.7 pg (27.0-33.0); MEAN CORPUSCULAR HGB CONC 29.6 g/dl (32.0-36.5); MEAN CORPUSCULAR VOLUME 90.2 fl (80.0-96.0); MONO # 0.4 10^3/uL (0.0-0.8); MONO % 2.6 % (0.0-5.0); NEUTROPHILS % 91.3 % (36.0-66.0); PLATELET COUNT, AUTOMATED 335 10^3/uL (150-450); WHITE BLOOD COUNT 15.3 10^3/uL (4.0-10.0)
[2020-04-29 08:02] LABS: ALBUMIN 3.1 GM/DL (3.2-5.2); ALT/SGPT 70 U/L (12-78); BILIRUBIN,TOTAL 0.3 MG/DL (0.2-1.0); BLOOD UREA NITROGEN 26 MG/DL (7-18); CALCIUM LEVEL 8.5 MG/DL (8.8-10.2); CARBON DIOXIDE LEVEL 33 MEQ/L (21-32); CHLORIDE LEVEL 96 MEQ/L (98-107); CREATININE FOR GFR 0.82 MG/DL (0.55-1.30); GLOMERULAR FILTRATION RATE > 60.0 (>45); GLUCOSE, FASTING 415 MG/DL (70-100); POTASSIUM SERUM 3.6 MEQ/L (3.5-5.1); SODIUM LEVEL 137 MEQ/L (136-145); TOTAL PROTEIN 6.9 GM/DL (6.4-8.2)
[2020-04-29] MEDS: FLUoxetine 10 MG CAP PO SCH (08:23)
[2020-04-29] MEDS: FLUoxetine 20 MG CAP PO SCH (08:23)
[2020-04-29] MEDS: TORSEMIDE (DEMADEX) 50 MG PER 1/2 TAB PO SCH (08:23)
[2020-04-29] MEDS: GABAPENTIN 300 MG CAP PO SCH ×3 (08:24→20:27)
[2020-04-29] MEDS: SIMETHICONE 80 MG CHEW TAB PO SCH ×3 (08:24→17:03)
[2020-04-29] MEDS: MELOXICAM (MOBIC) 7.5 MG TAB PO SCH ×2 (08:24→20:27)
[2020-04-29] MEDS: OMEPRAZOLE 20 MG CAP PO SCH ×2 (08:24→20:27)
[2020-04-29] MEDS: ASPIRIN 81 MG ENTERIC TAB PO SCH (08:24)
[2020-04-29] MEDS: VITAMIN D 1,000 INTERNATIONAL UNITS TABLET PO SCH (08:25)
[2020-04-29] MEDS: predniSONE 10 MG TAB PO SCH (08:25)
[2020-04-29] MEDS: POTASSIUM CHLORIDE 10 MEQ SR TABLET PO SCH (08:25)
[2020-04-29] MEDS: ATORVASTATIN 20 MG TAB PO SCH (08:26)
[2020-04-29] MEDS: ALPRAZolam 0.5 MG TAB PO SCH ×2 (08:26→20:27)
[2020-04-29] MEDS: BISOPROLOL FUM 2.5 MG PER 1/2TAB PO SCH (08:26)
[2020-04-29] MEDS: HumaLOG INSULIN (NovoLOG) PER UNIT SC SCH ×4 (08:27→20:30)
[2020-04-29] MEDS: DOCUSATE SODIUM 100MG CAPSULE PO SCH ×2 (08:27→20:27)
[2020-04-29] MEDS: ENOXAPARIN 40MG/0.4ML SYRINGE (J1650 PER 10MG) SC SCH (08:27)
[2020-04-29 10:42] VITALS: O2SAT 93
[2020-04-29] MEDS: NORCO, ANEXSIA 5/325MG TABLET (HYDROcodone/ACETAMINOPHEN) PO PRN (11:57)
--- NOTE | 2020-04-29 12:12 | IPNPDOC ---
Text Note Date of Service The patient was seen on 04/29/20. NOTE Subjective: Patient was seen and examined this morning at bedside. She tells me she's feeling much better today. Using the BiPAP last evening and overnight really helped with her breathing. She tells me she's feeling energetic and has been able to walk around to the bathroom on her own this morning. She had a bowel movement this morning. She had her breakfast well. She denies any fevers cough chills, shortness of breath worse than baseline, no chest pain, no lower extremity edema. Objective: Constitutional: Awake and alert, very calm and cheerful today no distress ENT: Sclera are clear Respiratory: No wheezing lungs bilaterally, fair air entry. No crackles. No use of accessory muscles. On 3L o2 by NC which is her baseline saturating>90% Cardiovascular: RRR S1 and S2 are normal, no murmur. No JVD. Gastrointestinal: Abdomen is soft, obese, non distended, non tender, BS present. Musculoskeletal: Trace pedal edema, better than yesterday Mental Status: A&O x3, normal affect Skin: Warm, dry Assessment/plan: 64 F PMHx advanced COPD on 3L o2, CHFpEF, SUYAPA using BiPAP, DM, Cor pulmonale, CAD, MDD, Hypothyroid who is a [place] resident who's been feeling increasing shortness of breath over the past 1 week and especially on exertion. Patient admitted to medical service for management of acute on chronic COPD exacerbation. # Acute on chronic COPD exacerbation: Advanced COPD on 3L o2 at baseline and daily prednisone. Duonebs q6h scheduled and PRN. Azithromycin. IV solumedrol q8h hold steroids on discharge continue prednisone 10 daily. COVID negative. Titrate oxygen to keep saturation between 88-92%. BiPAP as needed. Doing better back to baseline no wheezing on exam. # Lactic acidosis: 2.5 in the ED. IVFs. Hold ABx, I do not suspect infection at this time. Was started on Ceftx and Azithromycin after admission, now stopped. Discussed with Dr Lowry, lactic acidosis likely secondary to her advanced COPD and frequent use of albuterol neb since admission. BCx negative to date. UA negative. Shes been afebrile # Leukocytosis: Mild elevation. Patient on chronic steroids and has been receiving IV Solu-Medrol in addition to her prednisone. # Anemia: 10.8 on admit has been stable likely anemia of chronic disease. FOBT negative. No active bleed or melena reported. # DM: ISS. Accuchecks, hypoglycemic protocol. # SUYAPA: can use home BiPAP machine # Cor pulmonate with pulmonary HTN: continue toresmide. # HTN: continue home meds. Monitor and titrate. # Hx CAD: ASA, statin # Hx CHFpEF: Echo 2019 EF 70-75%. Grade 1 LV diastolic. Euvolemic on exam, some minimal LE edema, resolved with push of IV lasix. Iv Lasix PRN. # Chronic back pain: continue home gabapentin # HLD: continue home statin # Depression: fluoxetine # Hypothyroidism: continue home Synthroid dose. TSH ok. # DVT prophylaxis: lovenox Disposition: Patient clear for discharge 04/29/2020 however has to say overnight as [facility] does not accept patient over the weekend. Medically cleared for discharge. Can continue the azithromycin and solid metal while still here until tomorrow and discontinued both upon going back to [facility]. [facility] Ant CHO, I+O Ant CHO I+O Laboratory Tests 04/29/20 06:43 Vital Signs Date Time Temp Pulse Resp B/P (MAP) Pulse Ox O2 Delivery O2 Flow Rate FiO2 04/29/20 11:57 20 93 Nasal Cannula 3.0 04/29/20 08:26 84 136/70 04/29/20 06:00 96.6 I&O- Last 24 Hours up to 6 AM 04/29/20 06:00 Intake Total 2270 ml Output Total 6300 ml Balance -4030 ml JUAN JOSÉ WHITESIDE MD Apr 29, 2020 12:12
[2020-04-29 14:00] VITALS: BP 128/72
[2020-04-29] MEDS ORDERED: FUROSEMIDE 100MG/10ML VIAL (J1940) IV ONE ×2 (14:00→21:00)
[2020-04-29] MEDS: AZITHROMYCIN INJ 500 MG, VIAL MATE ADAPTER 1 EACH in D5W 250 ML IV SCH (17:03)
[2020-04-29 22:00] VITALS: BP 141/66
[2020-04-30 00:19] VITALS: O2SAT 90
[2020-04-30 01:42] VITALS: O2SAT 97
[2020-04-30] MEDS: IPRATROPIUM 0.5MG/ALBUTEROL 2.5MG INH SOL UD 3ML (DUONEB) NEB SCH ×2 (01:42→07:52)
[2020-04-30] MEDS: methylPREDNISolone 125MG 2ML VIAL IV SCH ×2 (04:47→12:17)
[2020-04-30] MEDS ORDERED: SLF 3 ML SYR IV PRN (05:15)
[2020-04-30] MEDS: LEVOTHYROXINE 25MCG TABLET (0.025MG) PO SCH (05:43)
[2020-04-30 06:00] VITALS: BP 156/77
[2020-04-30 06:42] LABS: BASO % 0.2 % (0.0-1.0); HEMATOCRIT 37.8 % (36.0-47.0); HEMOGLOBIN 11.4 g/dl (12.0-15.5); LYMPH # 0.8 10^3/uL (1.5-5.0); LYMPH % 5.5 % (24.0-44.0); MEAN CORPUSCULAR HEMOGLOBIN 26.3 pg (27.0-33.0); MEAN CORPUSCULAR HGB CONC 30.2 g/dl (32.0-36.5); MEAN CORPUSCULAR VOLUME 87.3 fl (80.0-96.0); MONO # 0.7 10^3/uL (0.0-0.8); MONO % 4.7 % (0.0-5.0); NEUTROPHILS # 12.7 10^3/uL (1.5-8.5); NEUTROPHILS % 88.1 % (36.0-66.0); PLATELET COUNT, AUTOMATED 363 10^3/uL (150-450); RED BLOOD COUNT 4.33 10^6/uL (4.00-5.40); WHITE BLOOD COUNT 14.4 10^3/uL (4.0-10.0)
[2020-04-30 07:15] LABS: ALBUMIN 3.3 GM/DL (3.2-5.2); ALT/SGPT 68 U/L (12-78); BILIRUBIN,TOTAL 0.3 MG/DL (0.2-1.0); BLOOD UREA NITROGEN 29 MG/DL (7-18); CARBON DIOXIDE LEVEL 38 MEQ/L (21-32); CHLORIDE LEVEL 93 MEQ/L (98-107); CREATININE FOR GFR 0.91 MG/DL (0.55-1.30); GLOMERULAR FILTRATION RATE > 60.0 (>45); GLUCOSE, FASTING 398 MG/DL (70-100); POTASSIUM SERUM 3.2 MEQ/L (3.5-5.1); SODIUM LEVEL 136 MEQ/L (136-145); TOTAL PROTEIN 7.2 GM/DL (6.4-8.2)
[2020-04-30] MEDS ORDERED: POTASSIUM CHLORIDE 10 MEQ SR TABLET PO ONE (07:45)
--- NOTE | 2020-04-30 07:46 | IPNPDOC ---
Text Note Date of Service The patient was seen on 04/30/20. NOTE Subjective: Patient was seen and examined this morning at bedside. She tells me she's feeling much better today and ready to go home. Using the BiPAP last evening and overnight continues to help with her breathing. She tells me she's feeling energetic and has been able to walk around to the bathroom on her own this morning. She's been eating and having regular bowel movements. She denies any fevers cough chills, shortness of breath worse than baseline, no chest pain. Objective: Constitutional: Awake and alert, not in any distress. Good mood ENT: Sclera are clear Respiratory: No wheezing lungs bilaterally, fair air entry. No crackles. No use of accessory muscles. On 3L o2 by NC which is her baseline saturating>90% Cardiovascular: RRR S1 and S2 are normal, no murmur. No JVD. Gastrointestinal: Abdomen is soft, obese, non distended, non tender, BS present. Musculoskeletal: Trace pedal edema Mental Status: A&O x3, normal affect Skin: Warm, dry Assessment/plan: 64 F PMHx advanced COPD on 3L o2, CHFpEF, SUYAPA using BiPAP, DM, Cor pulmonale, CAD, MDD, Hypothyroid who is a [place] resident who's been feeling increasing shortness of breath over the past 1 week and especially on exertion. Patient admitted to medical service for management of acute on chronic COPD exacerbation. Patient did well over the weekend and was ready to be discharged back to [facility] however [facility] does not take patient back on the weekend so she will stay until Thursday when she is able to go back. Patient was discharged on 04/30/2020 after resolution of the acute on chronic COPD exacerbation. # Acute on chronic COPD exacerbation: Advanced COPD on 3L o2 at baseline and daily prednisone. Duonebs q6h scheduled and PRN. Azithromycin completed 3 doses. IV solumedrol q8h hold steroids on discharge continue prednisone 10 daily. COVID negative. Titrate oxygen to keep saturation between 88-92%. BiPAP as needed. Doing better back to baseline no wheezing on exam. # Lactic acidosis: 2.5 in the ED. IVFs. Hold ABx, I do not suspect infection at this time. Was started on Ceftx and Azithromycin after admission, now stopped. Discussed with Dr Lowry, lactic acidosis likely secondary to her advanced COPD and frequent use of albuterol neb since admission as well as pulmonary HTN. BCx negative to date. UA negative. Shes been afebrile. LA improved with diuresis. # Leukocytosis: Mild elevation. Patient on chronic steroids and has been receiving IV Solu-Medrol in addition to her prednisone. # Anemia: 10.8 on admit has been stable likely anemia of chronic disease. FOBT negative. No active bleed or melena reported. # DM: ISS. Accuchecks, hypoglycemic protocol. # SUYAPA: can use home BiPAP machine # Cor pulmonate with pulmonary HTN: continue toresmide. # HTN: continue home meds. Monitor and titrate. # Hx CAD: ASA, statin # Hx CHFpEF: Echo 2018 EF 70-75%. Grade 1 LV diastolic. Euvolemic on exam, some minimal LE edema, resolved with push of IV lasix. Iv Lasix PRN. # Chronic back pain: continue home gabapentin # HLD: continue home statin # Depression: fluoxetine # Hypothyroidism: continue home Synthroid dose. TSH ok. # DVT prophylaxis: lovenox Disposition: Patient clear for discharge 04/29/2020 however stayed overnight as [facility] does not accept patient over the weekend. Discharged 04/30/2020 [facility] Ant CHO, I+O VSAnt I+O Laboratory Tests 04/30/20 06:19 Vital Signs Date Time Temp Pulse Resp B/P (MAP) Pulse Ox O2 Delivery O2 Flow Rate FiO2 04/30/20 06:00 97.4 68 20 156/77 (103) 92 NIPPV (BIPAP/CPAP) 04/30/20 04:09 3.0 I&O- Last 24 Hours up to 6 AM 04/30/20 06:00 Intake Total 2280 ml Output Total 7550 ml Balance -5270 ml JUAN JOSÉ WHITESIDE MD Apr 30, 2020 07:46
[2020-04-30 07:53] VITALS: O2SAT 94
[2020-04-30] MEDS: HumaLOG INSULIN (NovoLOG) PER UNIT SC SCH ×2 (07:59→12:17)
[2020-04-30] MEDS: POTASSIUM CHLORIDE 10 MEQ SR TABLET PO SCH (08:00)
[2020-04-30] MEDS: predniSONE 10 MG TAB PO SCH (08:01)
[2020-04-30] MEDS: FLUoxetine 20 MG CAP PO SCH (08:01)
[2020-04-30] MEDS: DOCUSATE SODIUM 100MG CAPSULE PO SCH (08:01)
[2020-04-30] MEDS: VITAMIN D 1,000 INTERNATIONAL UNITS TABLET PO SCH (08:01)
[2020-04-30] MEDS: MELOXICAM (MOBIC) 7.5 MG TAB PO SCH (08:01)
[2020-04-30] MEDS: ASPIRIN 81 MG ENTERIC TAB PO SCH (08:01)
[2020-04-30 08:02] VITALS: BP 146/78
[2020-04-30] MEDS: BISOPROLOL FUM 2.5 MG PER 1/2TAB PO SCH (08:02)
[2020-04-30] MEDS: ATORVASTATIN 20 MG TAB PO SCH (08:02)
[2020-04-30] MEDS: GABAPENTIN 300 MG CAP PO SCH (08:03)
[2020-04-30] MEDS: ALPRAZolam 0.5 MG TAB PO SCH (08:03)
[2020-04-30] MEDS: SIMETHICONE 80 MG CHEW TAB PO SCH ×2 (08:03→12:17)
[2020-04-30] MEDS: OMEPRAZOLE 20 MG CAP PO SCH (08:04)
[2020-04-30] MEDS: FLUoxetine 10 MG CAP PO SCH (08:04)
[2020-04-30] MEDS: TORSEMIDE (DEMADEX) 50 MG PER 1/2 TAB PO SCH (08:04)
[2020-04-30] MEDS: KCL 10MEQ/100ML SWI (KRUN) 10 MEQ in IV 1 EA IV SCH ×4 (08:07→11:00)
[2020-04-30] MEDS: ENOXAPARIN 40MG/0.4ML SYRINGE (J1650 PER 10MG) SC SCH (08:07)
[2020-04-30] MEDS: NORCO, ANEXSIA 5/325MG TABLET (HYDROcodone/ACETAMINOPHEN) PO PRN (08:09)
[2020-04-30] MEDS ORDERED: SLF 3 ML SYR IV SCH (14:00)
== END 2020-04-30 13:30 ==
LOC: M ED 10:32 → M ED INP 10:33 → ENRESERV 19:01 → M MS5PR 19:30
PROVIDERS: ADMIT Family Medicine; ATTEND Family Medicine
DX: J44.1 Chronic obstructive pulmonary disease with (acute) exacerbation (principal); Z99.81 Dependence on supplemental oxygen; G47.33 Obstructive sleep apnea (adult) (pediatric); E11.9 Type 2 diabetes mellitus without complications; E03.9 Hypothyroidism, unspecified; I27.0 Primary pulmonary hypertension; I25.10 Atherosclerotic heart disease of native coronary artery without angina pectoris; I27.81 Cor pulmonale (chronic); E78.49 Other hyperlipidemia; K21.9 Gastro-esophageal reflux disease without esophagitis; F31.9 Bipolar disorder, unspecified; D72.829 Elevated white blood cell count, unspecified; D64.9 Anemia, unspecified; Z79.899 Other long term (current) drug therapy; Z79.82 Long term (current) use of aspirin; Z79.52 Long term (current) use of systemic steroids; Z87.891 Personal history of nicotine dependence
CPT/HCPCS: 36415; 71045; 80048; 80053; 80076; 81001; 82270; 82550; 82553; 82803; 83605; 84436; 84443; 84484; 85025; 87040; 87631; 93005; 93041; 94640; 96361; 96365; 96366; 96367; 96375; 96376; 99285; G0378; J0456; J0696; J1940; J2930

== ENCOUNTER → 2020-05-04 | Outpatient (REF) | payer MEDICARE, MEDICAID ==
[~2020-05-04] MED LIST changes: -GABA-282 PO; +GABA-843 PO; +[UNRECOGNIZED DRUG - CODE] TOP
== END ==
PROVIDERS: ATTEND Internal Medicine
DX: Z20.828 Contact with and (suspected) exposure to other viral communicable diseases (principal)

== ENCOUNTER → 2020-05-09 | Outpatient (REF) | payer MEDICARE, MEDICAID ==
[2020-05-09 16:58] LABS: INFLUENZA A AMPLIFICATION NEGATIVE (NEGATIVE); INFLUENZA B AMPLIFICATION NEGATIVE (NEGATIVE)
== END ==
PROVIDERS: ATTEND Internal Medicine
DX: Z20.828 Contact with and (suspected) exposure to other viral communicable diseases (principal)
CPT/HCPCS: 87502; U0003

== ENCOUNTER → 2020-05-14 | Outpatient (REF) | payer MEDICARE, MEDICAID | PROVIDERS: ATTEND Internal Medicine | DX: Z20.828 Contact with and (suspected) exposure to other viral communicable diseases (principal) ==

== ENCOUNTER → 2020-05-21 | Outpatient (REF) | payer MEDICARE, MEDICAID | PROVIDERS: ATTEND Internal Medicine | DX: Z20.828 Contact with and (suspected) exposure to other viral communicable diseases (principal) ==

== ENCOUNTER 2020-05-25 09:37 | Emergency (ER) | payer MEDICARE, MEDICAID ==
[~2020-05-25] VITALS: Ht 160 cm; Wt 109.1 kg
[2020-05-25] MEDS ORDERED: methylPREDNISolone 125MG 2ML VIAL IV ONE (10:00)
[2020-05-25] MEDS ORDERED: ALBUTEROL SULFATE 2.5 MG/0.5 ML INH NEB SOLN INH ONE (10:00)
[2020-05-25] MEDS ORDERED: IPRATROPIUM 0.02% SOLN 0.5MG 2.5ML NEB INH ONE (10:00)
--- NOTE | 2020-05-25 10:02 | REP ---
INDICATION: DYSPNEA/COUGH COMPARISON: 04/27/2020 TECHNIQUE: Portable AP view of the chest FINDINGS: The mediastinum and cardiac silhouette are stable and within normal limits for portable technique. The lung cherry are clear without acute consolidation, effusion, or pneumothorax. Skeletal structures are intact. IMPRESSION: No acute cardiopulmonary process appreciated. <Electronically signed by Michael Vasques > 05/25/20 [id number]
[2020-05-25] MEDS ORDERED: ALPR0.5T3 PO (10:08)
[2020-05-25] MEDS ORDERED: METF500T13 PO (10:08)
[2020-05-25 10:59] LABS: BASO # 0.1 10^3/uL (0.0-0.2); BASO % 0.7 % (0.0-1.0); EOS # 0.2 10^3/uL (0.0-0.5); EOS % 1.6 % (0.0-3.0); HEMATOCRIT 40.4 % (36.0-47.0); HEMOGLOBIN 11.5 g/dl (12.0-15.5); LYMPH # 1.6 10^3/uL (1.5-5.0); LYMPH % 12.9 % (24.0-44.0); MEAN CORPUSCULAR HEMOGLOBIN 25.7 pg (27.0-33.0); MEAN CORPUSCULAR HGB CONC 28.5 g/dl (32.0-36.5); MEAN CORPUSCULAR VOLUME 90.2 fl (80.0-96.0); MONO # 0.9 10^3/uL (0.0-0.8); MONO % 7.7 % (0.0-5.0); NEUTROPHILS # 9.1 10^3/uL (1.5-8.5); NEUTROPHILS % 75.8 % (36.0-66.0); PLATELET COUNT, AUTOMATED 376 10^3/uL (150-450); RED BLOOD COUNT 4.48 10^6/uL (4.00-5.40)
[2020-05-25 11:29] LABS: ALBUMIN 3.3 GM/DL (3.2-5.2); ALT/SGPT 83 U/L (12-78); BILIRUBIN,DIRECT < 0.1 MG/DL (0.0-0.2); BILIRUBIN,TOTAL 0.4 MG/DL (0.2-1.0); NT-PRO BNP 97 PG/ML (<125); THYROXINE (T4) 9.9 UG/DL (4.5-12.0)
[2020-05-25 11:44] LABS: VENOUS BASE EXCESS 4.7 (-2.0-2.0); VENOUS HCO3 32.3 MEQ/L (23.0-27.0); VENOUS O2 SATURATION 83.6 % (60.0-80.0); VENOUS PARTIAL PRESSURE CO2 62.3 mmHg (38.0-50.0); VENOUS PARTIAL PRESSURE O2 50.9 mmHg (30.0-50.0); VENOUS PH 7.332 UNITS (7.330-7.430); VENOUS STANDARD HCO3 28.4 MEQ/L; VENOUS TOTAL CO2 34.2 MEQ/L (24.0-28.0)
[2020-05-25] MEDS ORDERED: PRED20TA PO (13:27)
[2020-05-25] MEDS ORDERED: ACETAMINOPHEN 500 MG TAB PO ONE (13:30)
[2020-05-25 13:46] VITALS: BP 179/107
--- NOTE | 2020-05-26 09:17 | ECGEPIP ---
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
== END 2020-05-25 15:00 | disposition home or self-care (01) ==
LOC: EDBD 09:37 → M ED 09:37
DX: J44.1 Chronic obstructive pulmonary disease with (acute) exacerbation (principal); E11.9 Type 2 diabetes mellitus without complications; I11.0 Hypertensive heart disease with heart failure; I50.9 Heart failure, unspecified; F31.9 Bipolar disorder, unspecified; E07.9 Disorder of thyroid, unspecified; G47.33 Obstructive sleep apnea (adult) (pediatric); Z99.81 Dependence on supplemental oxygen; Z99.89 Dependence on other enabling machines and devices; Z79.52 Long term (current) use of systemic steroids; Z79.899 Other long term (current) drug therapy; Z79.890 Hormone replacement therapy; Z79.82 Long term (current) use of aspirin; J30.89 Other allergic rhinitis; Z88.8 Allergy status to other drugs, medicaments and biological substances; F17.210 Nicotine dependence, cigarettes, uncomplicated
CPT/HCPCS: 71045; 80047; 80076; 82803; 83880; 84436; 84443; 84484; 85025; 87486; 87581; 87633; 87798; 93005; 93041; 96374; 99285; J2930

== ENCOUNTER 2020-05-27 09:55 | Emergency (ER) | payer MEDICARE, MEDICAID ==
[~2020-05-27] VITALS: Ht 165.1 cm; Wt 100.0 kg
[2020-05-27] MEDS ORDERED: LORazepam 2 MG/ML VIAL IV STA (10:09)
[2020-05-27] MEDS ORDERED: ALBUTEROL SULFATE 2.5 MG/0.5 ML INH NEB SOLN INH ONE (10:15)
[2020-05-27] MEDS ORDERED: IPRATROPIUM 0.02% SOLN 0.5MG 2.5ML NEB INH ONE (10:15)
[2020-05-27] MEDS ORDERED: methylPREDNISolone 125MG 2ML VIAL IV ONE (13:15)
[2020-05-27] MEDS ORDERED: ACETAMINOPHEN 500 MG TAB PO ONE (13:15)
[2020-05-27] MEDS ORDERED: PRED20TA PO (13:34)
[2020-05-27 14:16] VITALS: O2SAT 96
[2020-05-27 14:25] VITALS: BP 144/68
--- NOTE | 2020-05-27 16:37 | ECGEPIP ---
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
== END 2020-05-27 14:32 | disposition home or self-care (01) ==
LOC: M ED 09:55 → EDBD 09:55 → M ED 14:32
DX: J44.9 Chronic obstructive pulmonary disease, unspecified (principal); F41.9 Anxiety disorder, unspecified; E11.9 Type 2 diabetes mellitus without complications; I11.0 Hypertensive heart disease with heart failure; I50.9 Heart failure, unspecified; G47.33 Obstructive sleep apnea (adult) (pediatric); E07.9 Disorder of thyroid, unspecified; Z99.81 Dependence on supplemental oxygen; Z99.89 Dependence on other enabling machines and devices; Z79.899 Other long term (current) drug therapy; Z79.82 Long term (current) use of aspirin; Z79.890 Hormone replacement therapy; Z79.52 Long term (current) use of systemic steroids; Z88.8 Allergy status to other drugs, medicaments and biological substances; J30.89 Other allergic rhinitis; F17.210 Nicotine dependence, cigarettes, uncomplicated
CPT/HCPCS: 93005; 93041; 94640; 94760; 96374; 96375; 99285; J2060; J2930

== ENCOUNTER → 2020-05-28 | Outpatient (REF) | payer MEDICARE, MEDICAID | PROVIDERS: ATTEND Internal Medicine | DX: Z11.52 Encounter for screening for COVID-19 (principal) ==

== ENCOUNTER → 2020-06-04 | Outpatient (REF) | payer MEDICARE, MEDICAID ==
[~2020-06-04] MED LIST changes: +CARE1KIT XX; +GABA-282 PO; -GABA-843 PO; +INSUDET SC; +KLOR10TA76 PO; +LANC1COM MC; +MAGN400T2 PO; +[UNRECOGNIZED DRUG - CODE] XX; +[UNRECOGNIZED DRUG - OTHER] XX
== END ==
PROVIDERS: ATTEND Internal Medicine
DX: Z20.822 Contact with and (suspected) exposure to COVID-19 (principal)

== ENCOUNTER → 2020-06-11 | Outpatient (REF) | payer MEDICARE, MEDICAID | PROVIDERS: ATTEND Internal Medicine | DX: Z20.822 Contact with and (suspected) exposure to COVID-19 (principal) ==

== ENCOUNTER → 2020-06-18 | Outpatient (REF) | payer MEDICARE, MEDICAID | PROVIDERS: ATTEND Internal Medicine | DX: Z20.822 Contact with and (suspected) exposure to COVID-19 (principal) ==

== ENCOUNTER → 2020-06-21 | Outpatient (REF) | payer MEDICARE, MEDICAID ==
[2020-06-21 16:47] LABS: ALBUMIN 3.6 GM/DL (3.2-5.2); BILIRUBIN,TOTAL 0.5 MG/DL (0.2-1.0); CALCIUM LEVEL 9.7 MG/DL (8.8-10.2); CREATININE FOR GFR 1.2 MG/DL (0.55-1.30); GLOMERULAR FILTRATION RATE 48.5 (>45); POTASSIUM SERUM 3.2 MEQ/L (3.5-5.1)
== END ==
PROVIDERS: ATTEND Physician Assistant
DX: Z79.899 Other long term (current) drug therapy (principal); Z20.822 Contact with and (suspected) exposure to COVID-19

== ENCOUNTER 2020-06-22 11:12 | Inpatient (IN) | payer MEDICARE, MEDICAID ==
[~2020-06-22] VITALS: Ht 165.1 cm; Wt 104.7 kg
[~2020-06-22 11:12] MED LIST changes: -CARE1KIT XX; -INSUDET SC; -KLOR10TA76 PO; -LANC1COM MC; -MAGN400T2 PO; -[UNRECOGNIZED DRUG - CODE] XX; -[UNRECOGNIZED DRUG - OTHER] XX
--- NOTE | 2020-06-22 12:05 | REP ---
INDICATION: DYSPNEA/COUGH. COMPARISON: Comparison radiograph May 25, 2020 TECHNIQUE: Portable upright AP chest radiograph. FINDINGS: There is an area of increased density in the right base medially consistent with right base infiltrate/pneumonia. Lung cherry are otherwise clear. Heart is not enlarged. Pleural angles are sharp. Pulmonary vasculature is not increased.. IMPRESSION: Increased density right base medially consistent with pneumonia. Otherwise no acute disease.. <Electronically signed by Tristan Higgins > 06/22/20 1204
[2020-06-22 12:21] LABS: VENOUS BASE EXCESS 11.7 (-2.0-2.0); VENOUS HCO3 38.5 MEQ/L (23.0-27.0); VENOUS O2 SATURATION 88.4 % (60.0-80.0); VENOUS PARTIAL PRESSURE CO2 62.2 mmHg (38.0-50.0); VENOUS PARTIAL PRESSURE O2 61.2 mmHg (30.0-50.0); VENOUS STANDARD HCO3 35.2 MEQ/L; VENOUS TOTAL CO2 40.5 MEQ/L (24.0-28.0)
[2020-06-22 12:23] LABS: BASO # 0.1 10^3/uL (0.0-0.2); BASO % 0.4 % (0.0-1.0); EOS % 0.1 % (0.0-3.0); HEMATOCRIT 38.2 % (36.0-47.0); HEMOGLOBIN 11.3 g/dl (12.0-15.5); LYMPH # 0.7 10^3/uL (1.5-5.0); LYMPH % 5.1 % (24.0-44.0); MEAN CORPUSCULAR HEMOGLOBIN 26.2 pg (27.0-33.0); MEAN CORPUSCULAR HGB CONC 29.6 g/dl (32.0-36.5); MEAN CORPUSCULAR VOLUME 88.4 fl (80.0-96.0); MONO # 0.4 10^3/uL (0.0-0.8); MONO % 3.1 % (0.0-5.0); NEUTROPHILS # 12.4 10^3/uL (1.5-8.5); NEUTROPHILS % 90.2 % (36.0-66.0); PLATELET COUNT, AUTOMATED 434 10^3/uL (150-450); RED BLOOD COUNT 4.32 10^6/uL (4.00-5.40); WHITE BLOOD COUNT 13.8 10^3/uL (4.0-10.0)
--- OUTSIDE RECORDS SUMMARY | 2020-06-22 12:49 | CCD | Continuity of Care Document ---
Author Author Constance ANDRADE PA Organization Unknown Address [address] [place] [address], [place] [address] Phone [phone] Care Team Providers Care Link Trainer Teacher Name Role Phone Kayla Guerra MD AUTM [phone] Norma Pineda D.O. AUTM Troy Pacheco MD AUTM [phone] Smith Marie MD AUTM [phone] Other Provider AUTM Unavailable Problems Active Problems Provider Date Chest pain Anthony Traore MD Onset: 10/19/2012 Dyspnea Anthony Traore MD Onset: 10/19/2012 Electrocardiogram abnormal Anthony Traore MD Onset: 2012 Primary cardiomyopathy Anthony Traore MD Onset: 10/19/2012 Benign essential hypertension Anthony Traore MD Onset: Obesity Anthony Traore MD Onset: 10/19/2012 Aortic valve disorder Ewa Courtney NP Onset: 06/27/2014 Mitral valve disorder Ewa Courtney NP Onset: 06/27/2014 Preoperative cardiovascular examination Ewa Courtney NP Onset: 06/27/2014 Tobacco user Ewa Courtney NP Onset: 06/27/2014 Pure hypercholesterolemia Ewa Courtney NP Onset: 015 Essential hypertension Ewa Courtney NP Onset: 06/27/2014 Chronic pulmonary heart disease Anthony Traore MD Onset: 0 06/09/2016 Hypertensive heart disease without congestive heart failure Anthony Traore MD Onset: 06/09/2016 Atherosclerotic heart disease of [place] coronary arter y without angina pectoris Anthony Traore MD Onset: 06/09/2016 Obstructive sleep apnea syndrome [facility] Onset: 09/22/2017 Dietary management surveillance [facility] Onset: 09/22/2017 Chronic diastolic heart failure [facility] Onset: 01/18/2020 Hypertensive heart disease with heart failure [facility] Onset: 01/18/2020 Right ventricular failure [facility] Onset: 05/26 Social History Type Date Description Comments Sex Unknown ETOH Use Does not consume alcohol Tobacco Use Start: Unknown End: Unknown Patient is a former smoker up to 05/26 ppd 45 year smoker; quit 07/2019 Smoking Status Reviewed: 04/12/20 Patient is a former smoker up to 1 ppd 45 year smoker; quit 07/2019 Exercise Type/Frequency Walks daily minimal distance Exercise Limitations Shortness Of Breath Exercise Limitations Back Pain Exercise Limitations Fibromyalgia Exercise Limitations Joint Pain hips Allergies, Adverse Reactions, Alerts Description No Known Drug Allergies Medications Active Medications SIG Qnty Indications Ordering Provide r Date Milk Of Magnesia 2400mg/30ML Suspe nsion give 10 mLs by mouth as needed once daily Smith Dueñas JR, MD 06/18/2020 Klor-Con M20 20Meq Tablets ER 1 by mouth every day Smith Marie JR, MD 2020 Prednisone 10mg Tablets 2 by mouth every day for 7 days for COPD exacerbation Smith Maire JR, MD 06/18/2020 Aspercreme W/Lidocaine 4% Cream apply as directed topically as needed 4 times daily for pain Smith Marie JR, MD 06/18/2020 Magnesium Oxide 400mg Tablets 1 by mouth once a day Smith Marei JR, MD 2020 Torsemide 100mg Tablets 1 by mouth once daily every 2 days Smith Marie JR, MD Hydrocodone-Acetaminophen 5-325mg Tablets 1 by mouth once daily at 6:00 for 7 days for pain Smith Marie JR, MD 06/18/2020 Fluoxetine HCL (PMDD) 10mg Tablets 1 by mouth once daily Smith Marie JR, MD 06/18 Hydrocortisone 1% Cream apply 1 unit topically as needed twice daily for itching Smith Martin JR, MD 06/18/2020 Acetaminophen Extra Strength 500mg Tablets 1 by mouth twice daily as needed for mild pain Smith Marie JR, MD 06/18/2020 Acetaminophen Extra Strength 500mg Tablets 2 by mouth as needed twice daily for moderate to severe pain Smith Marie JR, MD 06/18/2020 [address]irin [address] 1 po daily 90tabs Anthony Traore MD 04/13/[address] 1 by mouth twice every day Smith Marie JR, MD 2019 Prednisone 10mg Tablets 1 by mouth every day Unknown 04/11/2020 Simethicone 80mg Chewtabs 1 by mouth 3 times daily after meals Smith Marie JR, M D 04/11/2020 Tums 500mg Chewtabs 1 tablet by mouth 4 times a day when necessary heartburn Smith Marie JR, MD 04/11/2020 Torsemide 100mg Tablets 1/2 by mouth every day 45tabs Anthony Traore MD 02/20/2020 Diclofenac Sodium 1% Gel apply 4 GM as needed 3 times daily as directed Col abel Marie JR, MD 02/19/2020 Alprazolam 0.5mg Tablets 1 by mouth twice a day as needed Smith Marie JR, MD 2019 Acetaminophen 8 Hour 650mg Tablets ER 1 by mouth every 12 hours as needed for chronic pain Smith Marie JR, MD 01/17/2020 Nystatin [id number]/GM Powder apply topically to affected area under breasts, as needed twice daily Smith Marie JR, MD 01/17/2020 Multi For Her 50+ Tablets 1 by mouth every day Smith Marie JR, MD 2019 Gold Tavares Powder apply topically as directed to affected area 2 times a day as needed Smith Marie JR, MD 01/17/2020 Tradjenta 5mg Tablets 1 by mouth every day Smith Marie JR, MD 2019 Incruse Ellipta 62.5mcg/Inh Aeroso l 1 puff daily Troy Pacheco MD 01/17/2020 Hydrocodone-Acetaminophen 5-325mg Tablets 1 by mouth every 12 hours as needed mdd=2 mSith Dueñas JR, MD 01/17/2020 Gabapentin 600mg Tablets 1 by mouth three times a day Smith Marie JR, MD 2019 Oxygen - Home 3 lpm via [place] Smith Marie JR, MD 01/17/2020 Fluoxetine HCL (PMDD) 20mg Tablets 1 by mouth daily Alyssa Antony MD 01/19/2019 Levothyroxine Sodium 25mcg Tablets 1 by mouth every day Alyssa Antony MD 01/19/2019 Ipratropium [place]/Albuterol Sulfate 0.5-2.5(3)mg/3ML Solution 1 nebulizer treatment 4 times a day (wit h each meal and bedtime). Alyssa Antony MD 01/19/2019 Bisoprolol Fumarate 5mg Tablets 1/2 tablet by mouth daily 45tabs I25.10 Anthony Traore MD 02/15/2016 Ventolin HFA 108(90Base) mcg/Act A erosol 2 puffs as needed Unknown 02/14/2016 Atorvastatin Calcium 80mg Tablets 1 by mouth every night at bedtime Norma Pineda th, D.O. 06/26/2014 Advair Diskus 250-50mcg/Dose Aeros ol 1 puff bid 1inhRobin Greene PA 03/03/2012 History Medications Maalox Advanced Maximum Strength [id number]/5ML Suspension 30 milliliters by mouth once daily as needed Smith Marie JR, MD 04/11/2020 - 06/18/2020 Prednisone 10mg Tablets 2 by mouth once daily for 3 days for COPD exacerbation Other Pro vider 04/11/2020 - 06/18/2020 Potassium Chloride ER 8Meq Tablets ER 2 by mouth once daily with 20 meq dose Josh Marie JR, MD 02/19/2020 - 06/18/2020 Aspercreme 10% Lotion apply topically up to 4 times daily as needed, as directed Smith Marie JR, MD 02/19/2020 - 06/18/2020 Prednisone 10mg Tablets 1 by mouth every day Kyle Flores FNP 02/19/2020 - 04/11/2020 Xopenex 1.25mg/3ML Nebulizer 1 treatment every 4 hours while awake Smith Marie JR, MD 01/17/2020 - 06/18/2020 Glipizide ER 5mg Tablets ER 24HR 1 by mouth twice every day Smith Marie JR, MD 01/17/2020 - 06/18/2020 Furosemide 80mg Tablets 1 by mouth every day Smith Marie JR, MD 2019 - 02/20/2020 Vitamin D-3 125mcg (5000 Ut) Table ts 1 by mouth once every day Smith Marie JR, MD 0 01/17/2020 - 06/18/2020 Potassium Chloride ER 8Meq Capsule s ER 1 by mouth twice every day Smith Marie JR, MD 01/17/2020 - 02/19/2020 Lidocaine 4% Cream apply topically up to 4 times daily as needed, as directed Juan Luis Marie JR, MD 01/17/2020 - 02/19/2020 Meloxicam 7.5mg Tablets 1 by mouth twice every day Smith Marie JR, MD 2019 - 06/19/2020 Milk Of Magnesia Concentrate 2400mg/10ML Suspension 10 mL by mouth every night at bedtime as needed Smith Marie JR, MD 01/17/2020 - 06/18/[address] 1 by mouth every day Smith Marie JR, MD 2019 - 04/11/2020 Potassium Chloride ER 20Meq Tablet s ER 1 by mouth every day with 16 meq dose Smith Marie JR, MD 01/17/2020 - 06/18/2020 Immunizations Description No Information Available Vital Signs Date Vital Result Comment 06/19/2020 10:46am Weight 228.00 lb Home Weight 228lb Height 65 inches 5'5" BMI (Body Mass Index) 37.9 kg/m2 04/12/2020 10:01am Weight 235.00 lb Home Weight 236lb Height 65 inches 5'5" BMI (Body Mass Index) 39.1 kg/m2 BP Systolic Sitting 130 mmHg large cuff, Ra BP Diastolic Sitting 64 mmHg large cuff, Ra Results Test Acquired Date Facility Test Result H/L Range Note BMP 02/27/2020 [facility] ([facility] - Calcium Ser/Plasma Mass/Vol 8.7 Sodium 141 Carbon Dioxide Ser/Plasm 38 Chloride Serum/Plasma 98 Potassium 4.3 Glucose 127 High 70-100 Blood Urea Nitrogen 13 7-18 Creatinine 0.62 0.55-1.30 G F R >60 CBC without Differential 02/14/2020 [facility] ([facility] - White Blood Count 11.8 High 4.3-10.9 Red Blood Count 4.03 Low 4.70-6.20 Platelets 347 130-400 Hemoglobin 10.4 Low 13.0-17.0 Hematocrit 34.6 Low 39.0-50.0 CMP 02/14/2020 [facility] ([facility])- - Albumin Serum/Plasma 3.2 Alt - SGPT 31 Calcium Ser/Plasma Mass/Vol 8.3 Carbon Dioxide Ser/Plasm 32 Chloride Serum/Plasma 103 Alkaline Phosphatase 126 Potassium 3.8 Protein Total 6.4 Sodium 142 Ast - Sgot 15 BUN - Urea Nitrogen 12 Glucose 181 High 70-100 Creatinine For GFR 0.66 Laboratory test finding 02/14/2020 [facility] ([facility])- - Troponin <0.02 Galectin-3 With NT-Probnp 02/14/2020 [facility] ([facility] - Galectin 3 QN Ser/Plas 50 Laboratory test finding 02/14/2020 [facility] ([facility])- - Thyroid Stimulating Hormone 0.143 Procedures Date Code Description Status 03/28/2020 20726 Echocardiogram 2-D Doppler Color Completed 02/20/2020 27666 ECG 12-Lead Completed 01/18/2020 22544 ECG 12-Lead Completed Medical Devices Description No Information Available Encounters Type Date Location Provider Dx Diagnosis Office Visit 06/19/2020 11:30a Main Office [facility] I50 .810 Right heart failure, unspecified I50.32 Chronic diastolic (congestiv e) heart failure Office Visit 04/12/2020 9:45a Main Office [facility] I50.8 10 Right heart failure, unspecified I50.32 Chronic diastolic (congestiv e) heart failure Office Visit 04/11/2020 3:55p Main Office Anthony Traore MD I50.32 Chronic diastolic (congestive) heart failure G47.33 Obstructive sleep apnea ([place]) (pediatric) I10 Essential (primary) hyperten gaby F17.210 Nicotine dependence, cigaret lynsey, uncomplicated Office Visit 02/24/2020 12:39p Main Office Anthony Traore MD I50.32 Chronic diastolic (congestive) heart failure G47.33 Obstructive sleep apnea ([place]) (pediatric) I10 Essential (primary) hyperten gaby F17.210 Nicotine dependence, cigaret [place], uncomplicated Office Visit 02/20/2020 9:15a Main Office [facility] I50.8 10 Right heart failure, unspecified I25.10 Athscl heart disease of [place] coronary artery w/o ang pctrs I11.0 Hypertensive heart disease w ith heart failure I50.32 Chronic diastolic (congestiv e) heart failure G47.33 Obstructive sleep apnea ([place]) (pediatric) R94.31 Abnormal electrocardiogram [ ECG] [EKG] Z71.3 Dietary counseling and surve illance Office Visit 01/18/2020 10:45a Main Office [facility] I25.1 0 Athscl heart disease of [place] coronary artery w/o ang pctrs I11.0 Hypertensive heart disease w ith heart failure I50.32 Chronic diastolic (congestiv e) heart failure G47.33 Obstructive sleep apnea ([place]) (pediatric) R94.31 Abnormal electrocardiogram [ ECG] [EKG] Z71.3 Dietary counseling and surve illance Office Visit 01/16/2020 3:17p Main Office Anthony Traore MD I50.32 Chronic diastolic (congestive) heart failure G47.33 Obstructive sleep apnea ([place]) (pediatric) I10 Essential (primary) hyperten gaby F17.210 Nicotine dependence, cigaret [place], uncomplicated Assessments Date Code Description Provider 06/19/2020 I50.810 Right heart failure, unspecified [facility] 06/19/2020 I50.32 Chronic diastolic (congestive) h eart failure [facility] 04/12/2020 I50.810 Right heart failure, unspecified [facility] 04/12/2020 I50.32 Chronic diastolic (congestive) h eart failure [facility] 04/11/2020 I50.32 Chronic diastolic (congestive) h eart failure Anthony Traore MD 04/11/2020 G47.33 Obstructive sleep apnea (adult) (pediatric) Anthony Traore MD 04/11/2020 I10 Essential (primary) hypertension Anthony Traore MD 04/11/2020 F17.210 Nicotine dependence, cigarettes, uncomplicated Anthony Traore MD 03/28/2020 I50.810 Right heart failure, unspecified ECHO 02/24/2020 I50.32 Chronic diastolic (congestive) h eart failure Anthony Traore MD 02/24/2020 G47.33 Obstructive sleep apnea (adult) (pediatric) Anthony Traore MD 02/24/2020 I10 Essential (primary) hypertension Anthony Traore MD 02/24/2020 F17.210 Nicotine dependence, cigarettes, uncomplicated Anthony Traore MD 02/20/2020 I50.810 Right heart failure, unspecified Nicole L Nayan, PA 02/20/2020 I25.10 Atherosclerotic heart disease of [place] coronary artery with Nicole L Nayan, PA 02/20/2020 I11.0 Hypertensive heart disease with heart failure Nicole L Nayan, PA 02/20/2020 I50.32 Chronic diastolic (congestive) h eart failure Nicole L Nayan, PA 02/20/2020 G47.33 Obstructive sleep apnea (adult) (pediatric) Nicole L Nayan, PA 02/20/2020 R94.31 Abnormal electrocardiogram [ECG] [EKG] Nicole L Nayan, PA 02/20/2020 Z71.3 Dietary counseling and surveilla nce Nicole L Nayan, PA 01/18/2020 I25.10 Atherosclerotic heart disease of [place] coronary artery with Nicole L Nayan, PA 01/18/2020 I11.0 Hypertensive heart disease with heart failure Nicole L Nayan, PA 01/18/2020 I50.32 Chronic diastolic (congestive) h eart failure Nicole L Nayan, PA 01/18/2020 G47.33 Obstructive sleep apnea (adult) (pediatric) Nicole L Nayan, PA 01/18/2020 R94.31 Abnormal electrocardiogram [ECG] [EKG] Incole L Nayan, PA 01/18/2020 Z71.3 Dietary counseling and surveilla nce Nicole L Nayan, PA 01/16/2020 I50.32 Chronic diastolic (congestive) h eart failure Anthony Traore MD 01/16/2020 G47.33 Obstructive sleep apnea (adult) (pediatric) Anthony Traore MD 01/16/2020 I10 Essential (primary) hypertension Anthony Traore MD 01/16/2020 F17.210 Nicotine dependence, cigarettes, uncomplicated Anthony Traore MD Plan of Treatment Future Appointment(s):* 09/18/2020 9:45 am - [facility] at Main Office * 08/03/2020 9:00 am - ECHO at Main Office 06/19/2020 - [facility]* I50.810 Right heart failure, unspecified* New Labs:* Brain Natriuretic Peptide, Ordered: 06/19/20 * CMP, Ordered: 06/19/20 * New Xrays:* US Echocardiogram Transthoracic W Doppler And Color Flow, Ordered: 06/19/20 * I50.32 Chronic diastolic (congestive) heart failure * All * Follow up:* Follow up in 3 months Functional Status Functional Condition Comment Date Status Independent with all ADL's Activ e Requires assistance with ambulating uses 4 wheeled rol ling walker with hand brakes and seat all the time Active Requires assistance with bathing Active Independent with toileting Activ e Independent with standing Active Independent with grooming Active Independent with feeding Active Requires assistance with dressing Active Mental Status Description No Information Available Referrals Description No Information Available
--- OUTSIDE RECORDS SUMMARY | 2020-06-22 12:50 | CCD | Continuity of Care Document ---
Author Author Constance TRAORE MD Organization Unknown Address [facility] [place] [address] Phone [phone] Care Team Providers Care Fine Sander Name Role Phone Kayla Guerra MD AUTM [phone] Norma Pineda D.O. AUTM [phone] Troy Pacheco MD AUTM [phone] Smith Marie MD AUTM [phone] Other Provider AUTM Unavailable Problems Active Problems [...] NP Onset: 06/27/2014 Chronic pulmonary heart disease Anthoyn Traore MD Onset: 0 06/09/2016 Hypertensive heart disease without congestive heart failure Anthony Traore MD Onset: 06/09/2016 Atherosclerotic heart disease of [place] coronary arter y without angina pectoris Anthony Traore MD Onset: 06/09/2016 Obstructive sleep apnea syndrome [facility] Onset: 09/22/2017 Dietary management surveillance [facility] Onset: 09/22/2017 Chronic diastolic heart failure [facility] Onset: 01/18/2020 Hypertensive heart disease with heart failure [facility] Onset: 01/18/2020 Social History Type Date Description Comments Sex Unknown ETOH Use Does not consume alcohol Tobacco Use Start: Unknown End: Unknown Patient is a former smoker up to 1/2 ppd 45 year smoker; quit 07/2019 Smoking Status Reviewed: 04/12/20 Patient is a former smoker up to 1/2 ppd 45 year smoker; quit 07/2019 Exercise Type/Frequency Walks daily minimal distance Exercise Limitations Shortness Of Breath Exercise Limitations Back Pain Exercise Limitations Fibromyalgia Exercise Limitations Joint Pain hips Allergies, Adverse Reactions, Alerts Description No Known Drug Allergies Medications Active Medications SIG Qnty Indications Ordering Provide r Date Aspirin [address] 1 po daily 90tabs Anthony Traore MD 04/13/[address] 1 by mouth twice every day Smith Marie JR, MD 2019 Prednisone 10mg Tablets 2 by mouth once daily for 3 days for COPD exacerbation Other Pro vider 04/11/2020 Prednisone 10mg Tablets 1 by mouth every day Unknown 04/11/2020 Simethicone 80mg Chewtabs 1 by mouth 3 times daily after meals Smith Marie JR, M D 04/11/2020 Maalox Advanced Maximum Strength [id number]/5ML Suspension 30 milliliters by mouth once daily as needed Smith Marie JR, MD 04/11/2020 Tums 500mg Chewtabs 1 tablet by mouth 4 times a day when necessary heartburn Smith Marie JR, MD 04/11/2020 Torsemide 100mg Tablets 1/2 by mouth every day 45tabs Anthony Traore MD 02/20/2020 Diclofenac Sodium 1% Gel apply 4 GM as needed 3 times daily as directed Col abel Marie JR, MD 02/19/2020 Aspercreme 10% Lotion apply topically up to 4 times daily as needed, as directed Smith Marie JR, MD 02/19/2020 Potassium Chloride ER 8Meq Tablets ER 2 by mouth once daily with 20 meq dose Josh Marie JR, MD 02/19/2020 Alprazolam 0.5mg Tablets 1 by mouth twice a day as needed Smith Marie JR, MD 2019 Acetaminophen 8 Hour 650mg Tablets ER 1 by mouth every 12 hours as needed Irma Marie JR, MD 01/17/2020 Potassium Chloride ER 20Meq Tablet s ER 1 by mouth every day with 16 meq dose Smith Marie JR, MD 01/17/2020 Nystatin [id number]/GM Powder apply topically to affected area under breasts, as needed twice daily Smith Marie JR, MD 01/17/2020 Multi For Her 50+ Tablets 1 by mouth every day Smith Marie JR, MD 2019 Milk Of Magnesia Concentrate 2400mg/10ML Suspension 10 mL by mouth every night at bedtime as needed Smith Marie JR, MD 01/17/2020 Gold [place]ava[place] Powder apply topically as directed to affected area 2 times a day as needed Smith Marie JR, MD 01/17/2020 Meloxicam 7.5mg Tablets 1 by mouth twice every day Smith Marie JR, MD 2019 Tradjenta 5mg Tablets 1 by mouth every day Smith Marie JR, MD 2019 Vitamin D-3 125mcg (5000 Ut) Table ts 1 by mouth once every day Smith Marie JR, MD 0 01/17/2020 Incruse Ellipta 62.5mcg/Inh Aeroso l 1 puff daily Troy Pacheco MD 01/17/2020 Hydrocodone-Acetaminophen 5-325mg Tablets 1 by mouth every 12 hours as needed mdd=2 Smith Dueñas JR, MD 01/17/2020 Gabapentin 600mg Tablets 1 by mouth three times a day Smith Marie JR, MD 2019 Glipizide ER 5mg Tablets ER 24HR 1 by mouth twice every day Smith Marie JR, MD 01/17/2020 Oxygen - Home 3 lpm via [place] Smith Marie JR, MD 01/17/2020 Xopenex 1.25mg/3ML Nebulizer 1 treatment every 4 hours while awake Smith Marie JR, MD 01/17/2020 Ipratropium [place]/Albuterol Sulfate 0.5-2.5(3)mg/3ML Solution 1 nebulizer treatment 4 times a day (wit h each meal and bedtime). Alyssa Antony MD 01/19/2019 Levothyroxine Sodium 25mcg Tablets 1 by mouth every day Alyssa Antony MD 01/19/2019 Fluoxetine HCL (PMDD) 20mg Tablets 1 by mouth daily Alyssa Antony MD 01/19/2019 Bisoprolol Fumarate 5mg Tablets 1/2 tablet by mouth daily 45tabs I25.10 Anthony Traore MD 02/15/2016 Ventolin HFA 108(90Base) mcg/Act A erosol 2 puffs as needed Unknown 02/14/2016 Atorvastatin Calcium 80mg Tablets 1 by mouth every night at bedtime Norma Pineda, D.O. 06/26/2014 Advair Diskus 250-50mcg/Dose Aeros ol 1 puff bid 1iRobin Thomas PA 03/03/2012 History Medications Prednisone 10mg Tablets 1 by mouth every day Kyle Flores FNP 02/19/2020 - 04/11/2020 Furosemide 80mg Tablets 1 by mouth every day Smith Marie JR, MD 2019 - 02/20/2020 Potassium Chloride ER 8Meq Capsule s ER 1 by mouth twice every day Smith Marie JR, MD 01/17/2020 - 02/19/2020 Lidocaine 4% Cream apply topically up to 4 times daily as needed, as directed Juan Luis Marie JR, MD 01/17/2020 - 02/19/[address] 1 by mouth every day Smith Marie JR, MD 2019 - 04/11/2020 Immunizations Description No Information Available Vital Signs Date Vital Result Comment 04/12/2020 10:01am Weight 235.00 lb Home Weight 236lb Height 65 inches 5'5" BMI (Body Mass Index) 39.1 kg/m2 BP Systolic Sitting 130 mmHg large cuff, Ra BP Diastolic Sitting 64 mmHg large cuff, Ra 02/20/2020 9:06am Weight 233.00 lb Home Weight 232lb Thursday Height 65 inches 5'5" BMI (Body Mass Index) 38.8 kg/m2 Heart Rate 81 /min BP Systolic Sitting 134 mmHg large cuff, Ra BP Diastolic Sitting 70 mmHg large cuff, Ra Results Test Acquired [...] 0.143 Procedures Date Code Description Status 03/28/2020 46764 Echocardiogram 2-D Doppler Color Completed 02/20/2020 62961 ECG 12-Lead Completed 01/18/2020 59592 ECG 12-Lead Completed Medical Devices Description No Information Available Encounters Type Date Location Provider Dx Diagnosis Office Visit 04/12/2020 9:45a Main Office SANK[facility] [...] Vee I25.1 0 Athscl heart disease of [place] coronary artery w/o ang pctrs I11.0 Hypertensive [...] lynsey, uncomplicated Assessments Date Code Description Provider 04/12/2020 I50.810 Right heart failure, unspecified SANKET [...] 02/20/2020 I50.810 Right heart failure, unspecified Nicole Spicer PA 02/20/2020 I25.10 Atherosclerotic heart disease of [place] coronary artery with Nicole Spicer PA 02/20/2020 I11.0 Hypertensive heart disease with heart failure Nicoleujlieth Spicer PA 02/20/2020 I50.32 Chronic diastolic (congestive) h eart failure Nicole Spicer, PA 02/20/2020 G47.33 Obstructive sleep apnea (adult) (pediatric) Nicole Spicer, PA 02/20/2020 R94.31 Abnormal electrocardiogram [ECG] [EKG] Nicole Spicer, PA 02/20/2020 Z71.3 Dietary counseling and surveilla nce Nicole Spicer, PA 01/18/2020 I25.10 Atherosclerotic heart disease of [place] coronary artery with Nicole Spicer, PA 01/18/2020 I11.0 Hypertensive heart disease with heart failure Nicole Spicer PA 01/18/2020 I50.32 Chronic diastolic (congestive) h eart failure Nicole Spicer, PA 01/18/2020 G47.33 Obstructive sleep apnea (adult) (pediatric) Nicole Spicer PA 01/18/2020 R94.31 Abnormal electrocardiogram [ECG] [EKG] Nicole Spicer PA 01/18/2020 Z71.3 Dietary counseling and surveilla nce Nicole L Nayan, PA 01/16/2020 I50.32 Chronic diastolic (congestive) h eart failure Anthony Traore MD 01/16/2020 G47.33 Obstructive sleep apnea (adult) (pediatric) Anthony Traore MD 01/16/2020 I10 Essential (primary) hypertension Anthony Traore MD 01/16/2020 F17.210 Nicotine dependence, cigarettes, uncomplicated Anthony Traore MD Plan of Treatment Future Appointment(s):* 06/19/2020 11:30 am - Bonnie Gillis PA at Main Office 04/12/2020 - [facility]* I50.810 Right heart failure, unspecified* Recommendations:* Take 100 mg of torsemide today and resume 50 mg daily. Restart aspirin 81 mg daily. * I50.32 Chronic diastolic (congestive) heart failure * All * Follow up:* CV 6-8 weeks. Functional Status Functional Condition Comment Date Status Independent with all ADL's Activ e Requires assistance with ambulating uses 4 wheeled [place] walker with hand brakes and seat all the time Active Requires assistance with bathing Active Independent with toileting Activ e Independent with standing Active Independent with grooming Active Independent with feeding Active Requires assistance with dressing Active Mental Status Description No Information Available Referrals Description No Information Available
--- OUTSIDE RECORDS SUMMARY | 2020-06-22 12:50 | CCD ---
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 Name Role Phone Мария Astudillo Unavailable PROBLEMS Type Condition ICD9-CM Code [id number] Code Onset Dates Condition S tatus SNOMED Code Notes Problem Mild hearing loss of right ear H91.91 Active 4 97351917 Problem Hyperlipidemia E78.5 Active 47701051 Problem Mild hearing loss of left ear H91.92 Active 47 3026471 Problem Tobacco abuse Z72.0 Active 97477193 Problem COPD (chronic obstructive pulmonary disease) J44.9 Active 32278412 Problem Cervical high risk HPV (human papillomavirus) test positiv e R87.810 Active 739575687 Problem Stress incontinence N39.3 Active 77418528 Problem Leukocytosis, unspecified type D72.829 Active 1 25684490 Problem COPD exacerbation J44.1 Active 633229107 Problem Type 2 diabetes mellitus wit hout complication, without long-term current use of insulin E11.9 Active 943301035 Problem Stress incontinence in female N39.3 Active 60 953028 Problem Fibromyalgia M79.7 Active 087017339 Problem Other chronic pain G89.29 Active 63144592 Problem Depression, unspecified depression type F32.9 Active 14739072 Problem Chronic GERD K21.9 Active 077924216 Problem Hypothyroidism (acquired) E03.9 Active 769761 002 Problem Chronic obstructive pulmonary disease, unspecified COPD ty pe J44.9 Active 60792963 Problem Oxygen dependent Z99.81 Active 776854666324 ALLERGIES Allergen (clinical drug ingredient) Drug/Non Drug Allergy do cumented on EMR Reaction Allergy Type Onset Date Status enviornmental Unknown Non Drug Allergy Activ e ENCOUNTERS from 1955 to 2020-06-13 Encounter Location Date Provider Diagnosis [facility] [address] [place] [id number] May, Мария Astudillo IMMUNIZATIONS Vaccine Route Administration Date Status TDAP IM Intramuscular May 11, 2015 Administered Influenza (6mo & up) Fluzone Unknown August 08, 2016 Oth ers Influenza (6mo & up) Fluzone Unknown Mar 14, 2014 Adm inistered SOCIAL HISTORY Tobacco Use: Social History Observation Description Date Details (start date - stop date) Former Smoker Sex Assigned At : Social History Observation Description Sex Assigned At Unknown Language: Question Answer Notes Languages spoken: Macedonian Sexual Hx: Question Answer Notes Had sex in the last 12 months (vaginal, oral, or anal)? No LMP: post menopause Have you ever had an STD? No Alcohol Screening: Question Answer Notes Did you have a drink containing alcohol in the past year? No Points 0 Interpretation Negative BMI Care Goal Follow-Up Question Answer Notes Above Normal BMI Follow-Up Giving encouragement to exercise Tobacco Use: Question Answer Notes Are you a: former smoker How long has it been since you last smoked? < 1 month REASON FOR REFERRAL No Information VITAL SIGNS No information MEDICATIONS Medication SIG (Take, Route, Frequency, Duration) Notes Start Da te End Date Status [facility] Hydrocortisone Acetate 1 % as directed Externally bid prn behind the ear and on rash no more than two weeks for 15 day(s) May, Not-Taking Modena 5-325 MG 1 tablet as needed Orally every 6 hrs Not-Taking Albuterol Sulfate (2.5 MG/3ML) 0.083% 1 vial Inhalatio n 4- 6 hours as needed for 90 days Active Wellbutrin SR 300 1 tablet Orally Once a day for 90 day(s) Not-Taking Aloe/Lidocaine Pain Reliever 0.5 % 1 application to af fected area as needed Externally Three times a day for 14 day(s) Jan, Not-Taking Lidoderm 5 % 1 patch to skin remove after 12 hours Externally once daily as needed for 30 day(s) September, Not-Taking Fexofenadine HCl 180 MG 1 tablet Orally Once a day for 90 day(s) Mar, Not-Taking Lidoderm 5 % 1 patch to intact skin remov e after 12 hours Externally Once a day may wear up to 3 patches for 90 day(s) Not-Taking Bengay Pain Relief + Massage 2.5 % 1 application to af fected area as needed Externally Once a day Active May Have - Portable Oxygen Concentrator that weighs less than 5lbs INH continuous when out of home DX:J44.9, M79.7 September, Active Ciprofloxacin 500 mg BID 14 d 500 mg one tab orally every 12 rose rs for 14 d Oct, Not-Taking FlythegapTouch Ultra II Test Strips - as directed In Vitro bid for 30 day(s) Jun, Active Aspirin 81 MG 1 tablet Orally Once a day for 90 days Active Ventolin HFA 108 (90 Base) MCG/ACT 2 puffs as needed I nhalation every 4 hours as needed for 90 days Active Carafate 1 GM 1 tablet on an empty stomach Orally Twice a day for 30 day(s) Mar, Not-Taking Nystatin Throat/Suspension 020379 UNIT/ML 5cc Mouth/Th roat four times daily as needed for 5 day(s) September, Not-Taking Lisinopril 2.5 MG 1 tablet Orally Once a day for 90 Active Claritin-D 12 Hour 5-120 MG 1 tablet as needed Orally every 12 hrs for 30 day(s) Oct, Not-Taking Nicoderm CQ 14mg 14 MG/24HR 1 patch to skin Transderma l Once a day for 30 day(s) Apr, Not-Taking Levothroid 50 mcg 1 tablet every morning on an empty stomach Orally Once a day for 90 days Not-Taking Bisoprolol Fumarate 5 MG 1/2 tablet Orally Once a day for 90 days Active Tessalon Perles 100 MG 1 capsule as needed Orally T hree times a day for 30 day(s) Active Cetirizine HCl 5 MG 1 tablet Orally Once a day for 90 day(s) Nov, Active Metformin HCl 1000 MG 1 tablet with meals Orally Twice a day for 90 days Jun, Active Amitriptyline HCl 25 MG 1 tablet at bedtime Orally Once a day fo r 90 days Apr, Not-Taking Lipitor 80 mg 1 tablet Orally Once a day for 90 days Active Advair Diskus 250-50 MCG/DOSE 1 puff Inhalation Twice a day for 90 da ys Active Carafate 1 GM 1 tablet on an empty stomach Orally Twice a day for 30 day(s) Jun, Not-Taking Prilosec 20 mg 2 tab(s) Orally Once a day for 90 days Not-Taking Levothyroxine Sodium 50 MCG TAKE ONE TABLET BY MOUTH E VERY MORNING ON AN EMPTY STOMACH for 90 Active Maxalt 5 MG 1 tablet as needed one time Orally Daily PRN. September repeat dose q2 hours x2 doses after first dose. for 10 day(s) May, Not-Taking Duloxetine HCl 60 MG 1 capsule Orally Once a day Not-Taking Gabapentin 800 MG 1 tablet Orally Three times a day for 90 Active Omeprazole 40 MG 1 capsule Orally Once a day for 90 days Active Lamotrigine 100 MG 1 tablet orally Twice a day for 90 days Active Synthroid 25 MCG 1 tablet on an empty stomach in the morn ing Orally Once a day Active Oxygen as directed nasal cannula Daily for 99 months September, Active Spiriva HandiHaler 18 MCG 1 capsule by mouth Inhalation Once a day for 90 days Active Nicoderm CQ 21mg 21 MG/24HR 1 patch to skin Transderma l Once a day for 15 day(s) May, Not-Taking Blood Pressure Monitor Automat 1 as directed for htn o nce daily as needed for 30 day(s) Oct, Active Cipro 500 MG 1 tablet Orally Twice a day for 10 day(s) September, Not-Taking Naproxen 500 mg 1 tablet Orally Twice a day for 90 Jul, Active Sertraline HCl 100 MG 1 tablet Orally Once a day for 90 day(s) Jul, Active Cymbalta 60 MG 1 capsule in am Orally daily for 30 days Active BuPROPion HCl ER (Smoking Det) 150 MG 1 tablet Orally Twice a day Not-Taking Cymbalta 30 MG 1 capsule Orally in the evenings Once a day for 90 days Mar, Active Melatonin 300 MCG 1 tablet at bedtime as neede d with food Orally Once a day for 30 day(s) Apr, Not-Taking Carvedilol 12.5 MG 1 tablet with food Orally Twice a day Not-Taking Ranitidine HCl 150 MG 1 Orally Twice a day PRN Jun, 201 6 Not-Taking Hydrocodone-Acetaminophen 7.5-500 MG 1 tablet as neede d Orally bid prn for 5 days Dec, Not-Taking Fluticasone Propionate 50 MCG/ACT 1 spray in each nostril Nasall y Once a day Apr, Active Cane - as directed _ Daily DX:W19.XXXA for 99 months 2 9 Dec, 2015 Active Ketorolac Tromethamine 10 MG 1 tablet as needed with m eals Orally every 6 hrs for 5 day(s) Jan, Not-Taking PredniSONE (Dinh) 5 MG as directed Orally 10mg bid for 3 days, 10 mg daily for 3 days, 5mg daily for 3 days, then stop for 9 days Dec, Not-Taking PROCEDURES No Information RESULTS No Results REASON FOR VISIT Incomplete referral to [facility]'s MEDICAL (GENERAL) HISTORY Type Description Date Medical History HTN Medical History Hyperlipidemia Medical History Severe COPD - Dr. Pacheco Medical History NSTEMI - 09/2012; [facility] by Dr. Mars - nonobstructive; Follows with Dr. Traore Medical History Hypothyroidism Medical History SUYAPA Medical History Osteoarthritis - Dr. 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 angio of chest 06/10 Surgical History Tubal ligation Surgical History Cholecystectomy Surgical History Breast lump removed (left - benign x2) 2 008 Surgical History Breast biopsy (right - benig n); marker in right breast to follow cluster Surgical History Tonsillectomy and adenoidectomy as a chi ld Surgical History Exploratory laparoscopy - r/o ectopic pr egnancy; negative Surgical History D & C Surgical History Colonoscopy - Dr. Saudners 2009 Surgical History Cardiac catheterization at [facility] 201 3 Surgical History Echocardiogram - Marginal AV sclerosis 1 07/17/2012 Hospitalization History Inpatient Mental Health - Depression 11/2013 Hospitalization History respiratory illness several times in 2016 Goals Section No Information Health Concerns No Information MEDICAL EQUIPMENT No Information MENTAL STATUS No Information FUNCTIONAL STATUS No Information ASSESSMENTS No Information PLAN OF TREATMENT Medication Medication Name Sig Start Date Stop Date Gabapentin 800 MG 1 tablet Orally Three times a day for 90 Lisinopril 2.5 MG 1 tablet Orally Once a day for 90 Insurance Providers Payer Name Payer Address Payer Phone Insured Name Patient Relati onship to Insured Coverage Start Date Coverage End Date MEDICAID Reveal [address] [facility] [id number] MIGUEL NAQVI self MEDICARE Part A and B [address] [facility] [id number] MIGUEL NAQVI self
--- OUTSIDE RECORDS SUMMARY | 2020-06-22 12:51 | CCD ---
Author Author [facility] Organization [facility] Address Unknown Phone Unavailable Care Team Providers Care Blasting Contract Man Name Role Phone Sada Marie MD Unavailable Unavailable Sada Marie MD Unavailable Unavailable Sada Marie MD Unavailable Unavailable Sada Marie MD Unavailable Unavailable CynthiaSada MD Unavailable Unavailable WalkertownSada MD Unavailable Unavailable WalkertownSada MD Unavailable Unavailable CynthiaSada MD Unavailable Unavailable WalkertownSada MD Unavailable Unavailable CynthiaSada MD Unavailable Unavailable WalkertownSada MD Unavailable Unavailable WalkertownSada MD Unavailable Unavailable CynthiaSada MD Unavailable Unavailable CynthiaSada MD Unavailable Unavailable WalkertownSada MD Unavailable Unavailable CynthiaSada MD Unavailable Unavailable CynthiaSada MD Unavailable Unavailable CynthiaSada MD Unavailable Unavailable CynthiaSada MD Unavailable Unavailable CynthiaSada MD Unavailable Unavailable CynthiaSada MD Unavailable Unavailable CynthiaSada MD Unavailable Unavailable CynthiaSada MD Unavailable Unavailable CynthiaSada MD Unavailable Unavailable WalkertownSada MD Unavailable Unavailable CynthiaSada MD Unavailable Unavailable CynthiaSada MD Unavailable Unavailable CynthiaSada MD Unavailable Unavailable WalkertownSada MD Unavailable Unavailable CynthiaSada MD Unavailable Unavailable CynthiaSada MD Unavailable Unavailable CynthiaSada MD Unavailable Unavailable WalkertownSada MD Unavailable Unavailable CynthiaSada MD Unavailable Unavailable WalkertownSada MD Unavailable Unavailable WalkertownSada MD Unavailable Unavailable WalkertownSada MD Unavailable Unavailable WalkertownSada MD Unavailable Unavailable WalkertownSada MD Unavailable Unavailable CynthiaSada zabala MD Unavailable Unavailable WalkertownSada MD Unavailable Unavailable WalkertownSada MD Unavailable Unavailable CynthiaSada MD Unavailable Unavailable CynthiaSada MD Unavailable Unavailable WalkertownSada MD Unavailable Unavailable WalkertownSada MD Unavailable Unavailable WalkertownSada zabala MD Unavailable Unavailable WalkertownSada MD Unavailable Unavailable CynthiaSada MD Unavailable Unavailable WalkertownSada MD Unavailable Unavailable WalkertownSada MD Unavailable Unavailable WalkertownSada MD Unavailable Unavailable WalkertownSada MD Unavailable Unavailable WalkertownSada MD Unavailable Unavailable WalkertownSada MD Unavailable Unavailable WalkertownSada MD Unavailable Unavailable WalkertownSada MD Unavailable Unavailable CynthiaSada MD Unavailable Unavailable CynthiaSada MD Unavailable Unavailable CynthiaSada zabala MD Unavailable Unavailable Sada Marie MD Unavailable Unavailable Sada Marie MD Unavailable Unavailable Sada Marie MD Unavailable Unavailable Sada Marie MD Unavailable Unavailable CynthiaSada zabala MD Unavailable Unavailable WalkertownSada zabala MD Unavailable Unavailable WalkertownSada zabala MD Unavailable Unavailable CynthiaSada zabala MD Unavailable Unavailable CynthiaSada zabala MD Unavailable Unavailable CynthiaSada zabala MD Unavailable Unavailable CynthiaSada zabala MD Unavailable Unavailable CynthiaSada zabala MD Unavailable Unavailable CynthiaSada zabala MD Unavailable Unavailable WalkertownSada zabala MD Unavailable Unavailable CynthiaSada zabala MD Unavailable Unavailable WalkertownSada zabala MD Unavailable Unavailable CynthiaSada zabala MD Unavailable Unavailable Sada Marie MD Unavailable Unavailable WalkertownSada zabala MD Unavailable Unavailable WalkertownSada zabala MD Unavailable Unavailable Sada Marie MD Unavailable Unavailable Sada Marie MD Unavailable Unavailable Sada Marie MD Unavailable Unavailable Sada Marie MD Unavailable Unavailable Sada Marie MD Unavailable Unavailable Sada Marie MD Unavailable Unavailable Nayan, L Nicole PA Unavailable Unavailable Nayan, L Nicole PA Unavailable Unavailable Nayan, L Nicole PA Unavailable Unavailable Nayan, L Nicole PA Unavailable Unavailable Nayan, L Nicole PA Unavailable Unavailable Nayan, L Nicole PA Unavailable Unavailable Nayan, L Nicole PA Unavailable Unavailable Nayan, L Nicole PA Unavailable Unavailable Nayan, L Nicole PA Unavailable Unavailable Nayan, L Nicole PA Unavailable Unavailable Nayan, L Nicole PA Unavailable Unavailable Nayan, L Nicole PA Unavailable Unavailable Nayan, L Nicole PA Unavailable Unavailable Nayan, L Nicole PA Unavailable Unavailable Nayan, L Nicole PA Unavailable Unavailable Nayan, L Nicole PA Unavailable Unavailable Nayan, L Nicole PA Unavailable Unavailable Nayan, L Nicole PA Unavailable Unavailable Nayan, L Nicole PA Unavailable Unavailable Nayan, L Nicole PA Unavailable Unavailable Nayna, L Nicole PA Unavailable Unavailable Nayan, L Nicole PA Unavailable Unavailable Nayan, L Nicole PA Unavailable Unavailable PICKERAL JR, J ZAHRA PA-C Unavailable Unavailable PICKERAL JR, J ZAHRA PA-C Unavailable Unavailable PICKERAL JR, J ZAHRA PA-C Unavailable Unavailable PICKERAL JR, J ZAHRA PA-C Unavailable Unavailable PICKERAL JR, J ZAHRA PA-C Unavailable Unavailable PICKERAL JR, J ZAHRA PA-C Unavailable Unavailable PICKERAL JR, J ZAHRA PA-C Unavailable Unavailable PICKERAL JR, J ZAHRA PA-C Unavailable Unavailable PICKERAL JR, J ZAHRA PA-C Unavailable Unavailable PICKERAL JR, J ZAHRA PA-C Unavailable Unavailable PICKERAL JR, J ZAHRA PA-C Unavailable Unavailable PICKERAL JR, J ZAHRA PA-C Unavailable Unavailable PICKERAL JR, J ZAHRA PA-C Unavailable Unavailable PICKERAL JR, J ZAHRA PA-C Unavailable Unavailable PICKERAL JR, J ZAHRA PA-C Unavailable Unavailable PICKERAL JR, J ZAHRA PA-C Unavailable Unavailable PICKERAL JR, J ZAHRA PA-C Unavailable Unavailable PICKERAL JR, J ZAHRA PA-C Unavailable Unavailable PICKERAL JR, J ZAHRA PA-C Unavailable Unavailable PICKERAL JR, J ZAHRA PA-C Unavailable Unavailable ZHANGNicholas Kendrick MD Unavailable Unavailable ZHANGNicholas Kendrick MD Unavailable Unavailable ZHANGNicholas MD Unavailable Unavailable ZHANGNicholas Kendrick MD Unavailable Unavailable ZHANGNicholas Kendrick MD Unavailable Unavailable ZHANGNicholas Kendrick MD Unavailable Unavailable Nicholas ZHANG MD Unavailable Unavailable ZHANGNicholas Kendrick MD Unavailable Unavailable ZHANGNicholas Kendrick MD Unavailable Unavailable ZHANGNicholas Kendrick MD Unavailable Unavailable ZHANGNicholas Kendrick MD Unavailable Unavailable ZHANGNicholas Kendrick MD Unavailable Unavailable ZHANGNicholas Kendrick MD Unavailable Unavailable ZHANGNicholas Kendrick MD Unavailable Unavailable ZHANGNichloas Kendrick MD Unavailable Unavailable ZHANGNicholas Kendrick MD Unavailable Unavailable Nicholas ZHANG MD Unavailable Unavailable ZHANGNicholas Kendrick MD Unavailable Unavailable Nicholas ZHANG MD Unavailable Unavailable Nicholas ZHANG MD Unavailable Unavailable Nicholas ZHANG MD Unavailable Unavailable Nicholas ZHANG MD Unavailable Unavailable Nicholas ZHANG MD Unavailable Unavailable Nicholas ZHANG MD Unavailable Unavailable Nicholas ZHANG MD Unavailable Unavailable Nicholas ZHANG MD Unavailable Unavailable Nicholas ZHANG MD Unavailable Unavailable Nicholas ZHANG MD Unavailable Unavailable Nicholas ZHANG MD Unavailable Unavailable Nicholas ZHANG MD Unavailable Unavailable Nicholas ZHANG MD Unavailable Unavailable Nicholas ZHANG MD Unavailable Unavailable Nicholas ZHANG MD Unavailable Unavailable Nicholas ZHANG MD Unavailable Unavailable Nicholas ZHANG MD Unavailable Unavailable Nicholas ZHANG MD Unavailable Unavailable Nicholas ZHANG MD Unavailable Unavailable Nicholas ZHANG MD Unavailable Unavailable Nicholas ZHANG MD Unavailable Unavailable Nicholas ZHANG MD Unavailable Unavailable Nicholas ZHANG MD Unavailable Unavailable Nicholas ZHANG MD Unavailable Unavailable Nicholas ZHANG MD Unavailable Unavailable Nicholas ZHANG MD Unavailable Unavailable Nicholas ZHANG MD Unavailable Unavailable ZHANGNicholas Kendrick MD Unavailable Unavailable ZHANG, Nicholas SMITH MD Unavailable Unavailable ZHANG, Nicholas SMITH MD Unavailable Unavailable ZHANG, Nicholas SMITH MD Unavailable Unavailable ZHANG, Nicholas SMITH MD Unavailable Unavailable ZHANG, Nicholas SMITH MD Unavailable Unavailable ZHANG, Nicholas SMITH MD Unavailable Unavailable ZHANG, Nicholas SMITH MD Unavailable Unavailable ZHANGNicholas Kendrick MD Unavailable Unavailable ZHANG, Nicholas SMITH MD Unavailable Unavailable ZHANG, Nicholas SMITH MD Unavailable Unavailable ZHANG, Nicholas SMITH MD Unavailable Unavailable Fish, B Greg GIFFORD Unavailable Unavailable Fish, B Greg GIFFORD Unavailable Unavailable Fish, B Greg GIFFORD Unavailable Unavailable Fish, B Greg GIFFORD Unavailable Unavailable Fish, B Greg GIFFORD Unavailable Unavailable Fish, B Greg GIFFORD Unavailable Unavailable Fish, B Greg GIFFORD Unavailable Unavailable Fish, B Greg GIFFORD Unavailable Unavailable Fish, B Greg GIFFORD Unavailable Unavailable Fish, B Greg GIFFORD Unavailable Unavailable Fish, B Greg GIFFORD Unavailable Unavailable Fish, B Greg GIFFORD Unavailable Unavailable Fish, B Greg GIFFORD Unavailable Unavailable Fish, B Greg GIFFORD Unavailable Unavailable Fish, B Greg GIFFORD Unavailable Unavailable Fish, B Greg GIFFORD Unavailable Unavailable Fish, B Greg GIFFORD Unavailable Unavailable Fish, B Greg GIFFORD Unavailable Unavailable Fish, B Greg GIFFORD Unavailable Unavailable Fish, B Greg GIFFORD Unavailable Unavailable Fish, B Greg GIFFORD Unavailable Unavailable Fish, B Greg GIFFORD Unavailable Unavailable Fish, B Greg GIFFORD Unavailable Unavailable Fish, B Greg GIFFORD Unavailable Unavailable Fish, B Greg GIFFORD Unavailable Unavailable Fish, B Greg GIFFORD Unavailable Unavailable Fish, B Greg GIFFORD Unavailable Unavailable Fish, B Greg GIFFORD Unavailable Unavailable Fish, B Greg GIFFORD Unavailable Unavailable Fish, B Greg GIFFORD Unavailable Unavailable Fish, B Greg GIFFORD Unavailable Unavailable Fish, B Greg GIFFORD Unavailable Unavailable Fish, B Greg GIFFORD Unavailable Unavailable Fish, Ren Garza MD Unavailable Unavailable Fish, B Greg GIFFORD Unavailable Unavailable Fish, B Greg GIFFORD Unavailable Unavailable Fish, B Greg GIFFORD Unavailable Unavailable Fish, B Greg GIFFORD Unavailable Unavailable Fish, B Greg GIFFORD Unavailable Unavailable Fish, Ren Garza MD Unavailable Unavailable Fish, B Greg GIFFORD Unavailable Unavailable Fish, B Greg GIFFORD Unavailable Unavailable Fish, B Greg GIFFORD Unavailable Unavailable Fish, B Greg GIFFORD Unavailable Unavailable Fish, B Greg GIFFORD Unavailable Unavailable Fish, B Greg GIFFORD Unavailable Unavailable Fish, B Greg GIFFORD Unavailable Unavailable Fish, B Greg GIFFORD Unavailable Unavailable Fish, B Greg GIFFORD Unavailable Unavailable Fish, B Greg GIFFORD Unavailable Unavailable Fish, B Greg MD Unavailable Unavailable Ren Tran MD Unavailable Unavailable Ren Tran MD Unavailable Unavailable ARGUETA, M ANTONIO PA Unavailable Unavailable ARGUETA, M ANTONIO PA Unavailable Unavailable ARGUETA, M ANTONIO PA Unavailable Unavailable ARGUETA, M ANTONIO PA Unavailable Unavailable ARGUETA, M ANTONIO PA Unavailable Unavailable ARGUETA, M ANTONIO PA Unavailable Unavailable ARGUETA, M ANTONIO PA Unavailable Unavailable ARGUETA, M ANTONIO PA Unavailable Unavailable ARGUETA, M ANTONIO PA Unavailable Unavailable ARGUETA, M ANTONIO PA Unavailable Unavailable ARGUETA, M ANTONIO PA Unavailable Unavailable ARGUETA, M ANTONIO PA Unavailable Unavailable ARGUETA, M ANTONIO PA Unavailable Unavailable ARGUETA, M ANTONIO PA Unavailable Unavailable ARGUETA, M ANTONIO PA Unavailable Unavailable ARGUETA, M ANTONIO PA Unavailable Unavailable ARGUETA, M ANTONIO PA Unavailable Unavailable ARGUETA, M ANTONIO PA Unavailable Unavailable ARGUETA, M ANTONIO PA Unavailable Unavailable ARGUETA, M ANTONIO PA Unavailable Unavailable ARGUETA, M ANTONIO PA Unavailable Unavailable ARGUETA, M ANTONIO PA Unavailable Unavailable ARGUETA, M ANTONIO PA Unavailable Unavailable ARGUETA, M ANTONIO PA Unavailable Unavailable ARGUETA, M ANTONIO PA Unavailable Unavailable ARGUETA, M ANTONIO PA Unavailable Unavailable ARGUETA, M ANTONIO PA Unavailable Unavailable ARGUETA, M ANTONIO PA Unavailable Unavailable ARGUETA, M ANTONIO PA Unavailable Unavailable ARGUETA, M ANTONIO PA Unavailable Unavailable ARGUETA, M ANTONIO PA Unavailable Unavailable ARGUETA, M ANTONIO PA Unavailable Unavailable ARGUETA, M ANTONIO PA Unavailable Unavailable Yovani Pacheco MD Unavailable Unavailable Yovani Pacheco MD Unavailable Unavailable Yovani Pacheco MD Unavailable Unavailable Yovani Pacheco MD Unavailable Unavailable Yovani Pacheco MD Unavailable Unavailable Yovani Pacheco MD Unavailable Unavailable Yovani Pacheco MD Unavailable Unavailable Yovani Pacheco MD Unavailable Unavailable Yovani Pacheco MD Unavailable Unavailable Yovani Pacheco MD Unavailable Unavailable Yovani Pacheco MD Unavailable Unavailable Yovani Pacheco MD Unavailable Unavailable Yovani Pacheco MD Unavailable Unavailable Yovani Pacheco MD Unavailable Unavailable Yovani Pacheco MD Unavailable Unavailable Yovani Pacheco MD Unavailable Unavailable Yovani Pacheco MD Unavailable Unavailable Yovani Pacheco MD Unavailable Unavailable Yovani Pacheco MD Unavailable Unavailable Yovani Pacheco MD Unavailable Unavailable Yovani Pacheco MD Unavailable Unavailable Yovani Pacheco MD Unavailable Unavailable Yovani Pacheco MD Unavailable Unavailable Yovani Pacheco MD Unavailable Unavailable Yovani Pacheco MD Unavailable Unavailable Yovani Pacheoc MD Unavailable Unavailable Yovani Pacheco MD Unavailable Unavailable Yovani Pacheco MD Unavailable Unavailable Yovani Pacheco MD Unavailable Unavailable Yovani Pacheco MD Unavailable Unavailable Yovani Pacheco MD Unavailable Unavailable Yovani Pacheco MD Unavailable Unavailable Yovani Pacheco MD Unavailable Unavailable Yovani Pacheco MD Unavailable Unavailable Yovani Pacheco MD Unavailable Unavailable Yovani Pacheco MD Unavailable Unavailable Yovani Pacheco MD Unavailable Unavailable Yovani Pacheco MD Unavailable Unavailable Yovani Pacheco MD Unavailable Unavailable Yovani Pacheco MD Unavailable Unavailable Yovani Pacheco MD Unavailable Unavailable Yovani Pacheco MD Unavailable Unavailable Yovani Pacheco MD Unavailable Unavailable Yovani Pacheco MD Unavailable Unavailable Yovani Pacheco MD Unavailable Unavailable Yovani Pacheco MD Unavailable Unavailable Yovani Pacheco MD Unavailable Unavailable Yovani Pacheco MD Unavailable Unavailable Yovani Pacheco MD Unavailable Unavailable Yovani Pacheco MD Unavailable Unavailable Yovani Pacheco MD Unavailable Unavailable Lenard, Thierry CHIEF PAYROLL CLERK CHIEF PAYROLL CLERK Unavailable Unavailable RAYMOND, L THIERRY PA Unavailable Unavailable RAYMOND, L THIERRY PA Unavailable Unavailable RAYMOND, L THIERRY PA Unavailable Unavailable RAYMOND, L THIERRY PA Unavailable Unavailable RAYMOND, L THIERRY PA Unavailable Unavailable RAYMOND, L THIERRY PA Unavailable Unavailable RAYMOND, L THIERRY PA Unavailable Unavailable RAYMOND, L THIERRY PA Unavailable Unavailable RAYMOND, L THIERRY PA Unavailable Unavailable RAYMOND, L THIERRY PA Unavailable Unavailable JERSEY PILLAI MD Unavailable Unavailable JERSEY PILLAI MD Unavailable Unavailable JERSEY PILLAI MD Unavailable Unavailable JERSEY PILLAI MD Unavailable Unavailable JERSEY PILLAI MD Unavailable Unavailable JERSEY PILLAI MD Unavailable Unavailable JERSEY PILLAI MD Unavailable Unavailable JERSEY PILLAI MD Unavailable Unavailable JERSEY PILLAI MD Unavailable Unavailable JERSEY PILLAI MD Unavailable Unavailable JERSEY PILLAI MD Unavailable Unavailable JERSEY PILLAI MD Unavailable Unavailable JERSEY PILALI MD Unavailable Unavailable JERSEY PILLAI MD Unavailable Unavailable JERSEY PILLAI MD Unavailable Unavailable JERSEY PILLAI MD Unavailable Unavailable JERSEY PILLAI MD Unavailable Unavailable JERSEY PILLAI MD Unavailable Unavailable FREYA, MELYNNE JOSHUA MD Unavailable Unavailable FREYA, MELYNNE JOSHUA MD Unavailable Unavailable FREYA, MELYNNE JOSHUA MD Unavailable Unavailable FREYA, MELYNNE JOSHUA MD Unavailable Unavailable FREYA, MELYNNE JOSHUA MD Unavailable Unavailable FREYA, MELYNNE JOSHUA MD Unavailable Unavailable FREYA, MELYNNE JOSHUA MD Unavailable Unavailable FREYA, MELYNNE JOSHUA MD Unavailable Unavailable FREYA, MELYNNE JOSHUA MD Unavailable Unavailable FREYA, MELYNNE JOSHUA MD Unavailable Unavailable FREYA, MELYNNE JOSHUA MD Unavailable Unavailable FREYA, MELYNNE JOSHUA MD Unavailable Unavailable FREYA, MELYNNE JOSHUA MD Unavailable Unavailable FREYA, MELYNNE JOSHUA MD Unavailable Unavailable FREYA, MELYNNE JOSHUA MD Unavailable Unavailable FREYA, MELYNNE JOSHUA MD Unavailable Unavailable FREYA, MELYNNE JOSHUA MD Unavailable Unavailable FREYA, MELYNNE JOSHUA MD Unavailable Unavailable FREYA, MELYNNE JOSHUA MD Unavailable Unavailable FREYA, MELYNNE JOSHUA MD Unavailable Unavailable SEARS, A LLOYD DO Unavailable Unavailable SEARS, A LLOYD DO Unavailable Unavailable SEARS, A LLOYD DO Unavailable Unavailable SEARS, A LLOYD DO Unavailable Unavailable SEARS, A LLOYD DO Unavailable Unavailable SEARS, A LLOYD DO Unavailable Unavailable SEARS, A LLOYD DO Unavailable Unavailable SEARS, A LLOYD DO Unavailable Unavailable SEARS, A LLOYD DO Unavailable Unavailable SEARS, A LLOYD DO Unavailable Unavailable SEARS, A LLOYD DO Unavailable Unavailable SEARS, A LLOYD DO Unavailable Unavailable SEARS, A LLOYD DO Unavailable Unavailable SEARS, A LLOYD DO Unavailable Unavailable SEARS, A LLOYD DO Unavailable Unavailable SEARS, A LLOYD DO Unavailable Unavailable SEARS, A LLOYD DO Unavailable Unavailable SEARS, A LLOYD DO Unavailable Unavailable SEARS, A LLOYD DO Unavailable Unavailable SEARS, A LLOYD DO Unavailable Unavailable SEARS, A LLOYD DO Unavailable Unavailable SEARS, A LLOYD DO Unavailable Unavailable SEARS, A LLOYD DO Unavailable Unavailable SEARS, A LLOYD DO Unavailable Unavailable SEARS, A LLOYD DO Unavailable Unavailable SEARS, A LLOYD DO Unavailable Unavailable SEARS, A LLOYD DO Unavailable Unavailable SEARS, A LLOYD DO Unavailable Unavailable SEARS, A LLOYD DO Unavailable Unavailable SEARS, A LLOYD DO Unavailable Unavailable SEARS, A LLOYD DO Unavailable Unavailable SEARS, A LLOYD DO Unavailable Unavailable SEARS, A LLOYD DO Unavailable Unavailable SEARS, A LLOYD DO Unavailable Unavailable SEARS, A LLOYD DO Unavailable Unavailable SEARS, A LLOYD DO Unavailable Unavailable SEARS, A LLOYD DO Unavailable Unavailable SEARS, A LLOYD DO Unavailable Unavailable SEARS, A LLOYD DO Unavailable Unavailable SEARS, A LLOYD DO Unavailable Unavailable SEARS, A LLOYD DO Unavailable Unavailable SEARS, A LLOYD DO Unavailable Unavailable SEARS, A LLOYD DO Unavailable Unavailable SEARS, A LLOYD DO Unavailable Unavailable SEARS, A LLOYD DO Unavailable Unavailable SEARS, A LLOYD DO Unavailable Unavailable Re-disclosure Warning The records that you are about to access may contain information from federally-assisted alcohol or drug abuse programs. If such information is present, then the following federally mandated warning applies: This information has been disclosed to you from records protected by federal confidentiality rules (42 CFR part 2). The federal rules prohibit you from making any further disclosure of this information unless further disclosure is expressly permitted by the written consent of the person to whom it pertains or as otherwise permitted by 42 CFR part 2. A general authorization for the release of medical or other information is NOT sufficient for this purpose. The Federal rules restrict any use of the information to criminally investigate or prosecute any alcohol or drug abuse patient.The records that you are about to access may contain highly sensitive health information, the redisclosure of which is protected by Article 27-F of the [facility] Public Health law. If you continue you may have access to information: Regarding HIV / AIDS; Provided by facilities licensed or operated by the [facility] Office of Mental Health; or Provided by the [facility] Office for People With Developmental Disabilities. If such information is present, then the following [facility] mandated warning applies: This information has been disclosed to you from confidential records which are protected by state law. State law prohibits you from making any further disclosure of this information without the specific written consent of the person to whom it pertains, or as otherwise permitted by law. Any unauthorized further disclosure in violation of state law may result in a fine or fci sentence or both. A general authorization for the release of medical or other information is NOT sufficient authorization for further disc losure. Family History Family Member Name Family Member Gender Family Member Status Date o f Status Description Data Source(s) Unknown Unknown Problem [facility] ([facility]) Encounters Encounter Providers Location Date Indications Data Source(s ) Office Visit Attender: THIERRY COLES Main Office 10:30:00 AM EST [facility] ([facility]) Unknown [address] [facility] [facility] [address] 06/12/2020 12:00:00 AM EST eCW1 ([facility]) Office Visit Attender: Nicole COLES Main Office 04/12/2020 08 :45:00 AM EST [facility] ([facility]) Office Visit Attender: LUIS ZHANG MD Main Office 04/11/2020 02:55:0 0 PM EST [facility] ([facility]) Office Visit Attender: LUIS ZHANG MD Main Office 02/24/2020 12:39:0 0 PM EDT [facility] ([facility]) Office Visit Attender: Nicole COLES Main Office 02/20/2020 09 :15:00 AM EDT [facility] ([facility]) Outpatient Attender: ZAHRA Staton 0 02/16/2020 08:40:00 AM EDT [facility] ([facility] ) Outpatient Attender: ZAHRA Staton 0 02/01/2020 03:00:00 PM EDT [facility] ([facility] ) Office Visit Attender: Nicole COLES Main Office 01/18/2020 10 :45:00 AM EDT [facility] ([facility]) Office Visit Attender: LUIS ZHANG MD Main Office 01/16/2020 03:17:0 0 PM EDT [facility] ([facility]) Outpatient Attender: ZAHRA Staton 0 12/15/2019 11:00:00 AM EDT [facility] ([facility] ) Outpatient Attender: ZAHRA Staton 0 11/30/2019 03:20:00 PM EDT [facility] ([facility] ) Outpatient Attender: RONAK HALEY 10/06/2019 09:01:06 P M EDT [facility] Outpatient Attender: Smith Staton 0 09/08/2019 08:40:00 AM EDT [facility] ([facility] ) Outpatient Attender: Smith Staton 0 08/04/2019 08:00:00 AM EDT [facility] ([facility] ) Outpatient Attender: Troy Zheng/[place]/Piero/R eindl 08/03/2019 11:30:00 AM EDT [facility] ([facility]) Outpatient Referrer: Greg Tran MD 06/24/2019 09:37:00 AM EST [facility] Outpatient Attender: JOSHUA Zheng/[place]/Piero/R eindl 06/21/2019 12:23:00 AM EST [facility] ([facility]) Outpatient Referrer: Greg Tran MD 06/20/2019 02:49:00 PM EST [facility] Outpatient Attender: JOSHUA Zheng/[place]/Piero/R eindl 06/20/2019 12:23:00 AM EST [facility] ([facility]) Outpatient Referrer: Greg Tran MD 06/17/2019 03:15:00 PM EST [facility] Outpatient Attender: Troy Zheng/[place]/Piero/R eindl 06/16/2019 12:23:00 AM EST [facility] ([facility]) Outpatient Referrer: Greg Tran MD 06/15/2019 02:39:00 PM EST [facility] Outpatient Attender: Troy Zheng/[place]/Piero/R eindl 06/15/2019 12:23:00 AM EST [facility] ([facility]) Outpatient Attender: JOSHUA Zheng/[place]/Piero/R eindl 06/09/2019 12:23:00 AM EST [facility] ([facility]) Outpatient Attender: JOSHUA Zheng/[place]/Piero/R eindl 06/08/2019 12:23:00 AM EST [facility] ([facility]) Outpatient Attender: ANTONIO Zheng/[place]/Piero/Rein dl 05/02/2019 12:23:00 AM EST [facility] ([facility]) Outpatient Attender: LLOYD RODGERS Norm/[place]/Piero/Reindl 05/01/2019 12:23:00 AM EST [facility] ([facility]) Outpatient Attender: LLOYD RODGERS DO Zheng/Salem/Piero/Reindl 04/30/2019 12:23:00 AM EST MEDENT ([facility]) Immunizations Vaccine Date Status Description Data Source(s) Influenza, injectable, MDCK, preservative free, miroslava valent 02/16/2020 08:42:00 AM EDT completed MED[facility] ([facility]) Medications Medication Brand Name Start Date Product Form Dose Route Admi nistrative Instructions Pharmacy Instructions Status Indications Reaction Description Data Source(s) Prednisone 10 MG Oral Tablet Prednisone 06/18/2020 12:00:00 AM EST ORAL active [facility] ([facility]) Magnesium Hydroxide 80 MG/ML Oral Suspension Milk Of Magnesi a 06/18/2020 12:00:00 AM EST ORAL active M EDENT ([facility])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 Description Data Mel rce(s) Supporting Document(s) Laboratory test finding (navigational concept) 0.00 ng/mL 0.00-0.08 [facility] ([facility]) ID Date Data Source [id number] 04/02/2020 03:19:00 PM EST [facility] Name Value Range Interpretation Code Description Data Mel rce(s) Supporting Document(s) Laboratory test finding (navigational concept) 36.0 % 38.0-51.0 [facility] ([facility]) Laboratory test finding (navigational concept) 258 mg/dL 70-105 [facility] ([facility]) Laboratory test finding (navigational concept) 138 meq/L 136-145 [facility] ([facility]) Laboratory test finding (navigational concept) 4.3 meq/L 3.5-5.1 [facility] ([facility]) Laboratory test finding (navigational concept) 4.3 mg/dL 4.5-5.3 [facility] ([facility]) Laboratory test finding (navigational concept) 93 meq/L 98-109 [facility] ([facility]) Laboratory test finding (navigational concept) 36.0 MM/L 23.0-27.0 [facility] ([facility]) Laboratory test finding (navigational concept) 0.6 mg/dL 0.6-1.3 [facility] ([facility]) Laboratory test finding (navigational concept) 14 mg/dL 8-26 [facility] ([facility]) ID Date Data Source [id number] 04/02/2020 03:18:00 PM EST [facility] ([facility]) Name Value Range Interpretation Code Description Data Mel rce(s) Supporting Document(s) White Blood Count 15.3 10 4.0-10.0 [facility] ([facility]) Hematocrit 37.8 % 36.0-47.0 [facility] ([facility]) Red Blood Count 4.22 10 4.00-5.40 [facility] ([facility]) Hemoglobin 10.9 g/dL 12.0-15.5 [facility] ([facility]) Red Cell Distribution Width 15.8 % 11.5-14.5 [facility] ([facility]) Mean Corpuscular Hemoglobin 25.8 pg 27.0-33.0 [facility] ([facility]) Mean Corpuscular HGB Conc 28.8 g/dL 32.0-36.5 [facility] ([facility]) Mean Corpuscular Volume 89.6 fl 80.0-96.0 [facility] ([facility]) Lymph % 9.3 % 24.0-44.0 [facility] [facility] Platelet Count, Automated 396 10 150-450 [facility] ([facility]) Neutrophils % 82.6 % 36.0-66.0 [facility] ([facility]) [place] % 6.1 % 0.0-5.0 [facility] [facility] Eos % 0.9 % 0.0-3.0 [facility] [facility] Immature Granulocyte % 0.8 % 0-3.0 [facility] ([facility]) Baso % 0.3 % 0.0-1.0 [facility] [facility] Lymph # 1.4 10 1.5-5.0 [facility] [facility] Nucleated Red Blood Cell % 0.0 % 0-0 [facility] ([facility]) Neutrophils # 12.6 10 1.5-8.5 [facility] ([facility]) Baso # 0.1 10 0.0-0.2 [facility] [facility]) [place] # 0.9 10 0.0-0.8 [facility] [facility] Eos # 0.1 10 0.0-0.5 [facility] [facility]) ID Date Data Source [id number] 04/02/2020 03:18:00 PM EST [facility] ([facility]) Name Value Range Interpretation Code Description Data Mel rce(s) Supporting Document(s) Alt/SGPT 47 U/L 12-78 [facility] [facility]) Ast/Sgot 29 U/L 7-37 [facility] ([facility]) Total Protein 6.9 GM/DL 6.4-8.2 [place] [facility]) Alkaline Phosphatase 135 U/L 45-117 [place] ([facility]) Bilirubin,Total 0.3 mg/dL 0.2-1.0 [place] ([facility]) Bilirubin,Direct 0.1 mg/dL 0.0-0.2 [place] ([facility]) Albumin/Globulin Ratio 1.0 1.2-2.2 [place] ([facility]) Albumin 3.5 GM/DL 3.2-5.2 [place] ([facility]) ID Date Data Source [id number] 04/02/2020 03:18:00 PM EST [place] ([facility]) Name Value Range Interpretation Code Description Data Mel rce(s) Supporting Document(s) Natriuretic peptide.B prohormone N-Terminal [Mass/volu me] in Serum or Plasma 52 pg/mL [place] ([facility] ) Thyrotropin [Units/volume] in Serum or Plasma by Detec tion limit <= 0.05 mIU/L 0.434 uIU/ML 0.358-3.740 [place] ([facility] ) Lactate [Mass/volume] in Serum or Plasma 3.3 mmol/L 0.4-2.[address] [facility] ([facility]) Y/N query for Sepsis Lactate Rule: Y ID Date Data Source [id number] 03/14/2020 11:39:[address] [facility] ([facility]) Name Value Range Interpretation Code Description Data Mel rce(s) Supporting Document(s) Hemoglobin A1c/Hemoglobin.total in Blood 7.2 % [facility] Lab Result Notes: Pre-Diabetes 5.7 - 6.4 % Diabetes = or > 6.5% Glucose mean value [Mass/volume] in Blood Estimated fr om glycated hemoglobin 160 mg/dL 60-110 [facility] ID Date Data Source [id number] 03/14/2020 11:39:[address] [facility] ([facility]) Name Value Range Interpretation Code Description Data Mel rce(s) Supporting Document(s) Leukocytes [#/volume] in Blood by Automated count 9.4 x10*3/UL 4.1-10 .9 [facility] ([facility]) Hemoglobin [Mass/volume] in Blood 11.2 g/dL 12.0-18.0 [facility] ([facility]) NOTE: RESULT VERIFIED. Hematocrit [Volume Fraction] of Blood by Automated count 34.7 % 3 7.0-51.0 [facility] [facility] Erythrocytes [#/volume] in Blood by Automated count 4.22 x10*6/UL 4.2 0-6.30 [facility] ([facility]) MCV 82.1 fL 80.0-97.0 [facility] [facility] MCH 26.6 pg 26.0-32.0 [facility] [facility] MCHC 32.4 g/dL 31.0-38.0 [facility] [facility] Erythrocyte distribution width [Ratio] by Automated count 15.3 % 11.6-13.7 [facility] ([facility]) Platelets [#/volume] in Blood by Automated count 416 x10*3/UL 140-440 [facility] ([facility]) MPV 7.2 FL 7.8-11.0 [facility] [facility] Lymph % 17.4 % 10.0-58.5 [facility] [facility] Mid % 5.6 % 1.7-9.3 [facility] [facility] Neut % 77.0 % 37.0-92.0 [facility] [facility] Lymph # 1.6 x10*3/UL 0.6-4.1 [facility] ([facility]) Neut # 7.3 x10*3/UL 2.0-7.8 [facility] ([facility]) Mid # 0.5 x10*3/UL 0.1-0.6 [facility] ([facility]) ID Date Data Source [id number] 03/14/2020 11:39:00 AM EDT [facility] ([facility]) Name Value Range Interpretation Code Description Data Mel rce(s) Supporting Document(s) Glucose [Mass/volume] in Serum or Plasma 142 mg/dL 74-99 [facility] ([facility]) 100-125 mg/dL PRE-DIABETES/FASTING >126 mg/dL DIABETES/FASTING Creatinine 0.8 mg/dL 0.6-1.3 [facility] ([facility]) Urea nitrogen [Mass/volume] in Serum or Plasma 13 mg/dL 7-18 [facility] ([facility]) Sodium [Moles/volume] in Serum or Plasma 142 meq/L 136-145 [facility] ([facility]) Chloride [Moles/volume] in Serum or Plasma 100 meq/L 98-107 [facility] ([facility]) Potassium [Moles/volume] in Serum or Plasma 3.4 meq/L 3.5-5.1 [facility] ([facility]) NOTE: RESULT VERIFIED. Glomerular filtration rate/1.73 sq M pre dicted among non-blacks [Volume Rate/Area] in Serum or Plasma by Creatinine-based formula (MDRD) Laboratory test result [facility] ([facility] ) Carbon dioxide, total [Moles/volume] in Serum or Plasma 34 meq/L 21 -32 [facility] ([facility]) Calcium [Mass/volume] in Serum or Plasma 8.7 mg/dL 8.5-10.1 [facility] ([facility]) Glomerular filtration rate/1.73 sq M pre dicted among blacks [Volume Rate/Area] in Serum or Plasma by Creatinine-based formula (MDRD) Laboratory test result [facility] ([facility]) <content>CHRONIC KIDNEY DISEASE STAGING PER NKF</content>
<content></content>
<content>STAGE I & II GFR >= 60 NORMAL TO MILDLY DECREASED</content>
<content>STAGE III GFR 30-59 MODERATELY DECREASED</content>
<content>STAGE IV GFR 15-29 SEVERELY DECREASED</content>
<content>STAGE V GFR <15 VERY LITTLE GFR LEFT</content>
<content>ESRD GFR <15 ON MACHINE APPLICATOR CEMENTER</content>
<content></content> ID Date Data Source [id number] 03/14/2020 11:39:00 AM EDT [facility] ([facility]) Name Value Range Interpretation Code Description Data Mel rce(s) Supporting Document(s) Hemoglobin A1c/Hemoglobin.total in Blood Laboratory test result [facility] ([facility]) ID Date Data Source [id number] 02/27/2020 04:35:00 PM EDT [facility] ([facility]) Name Value Range Interpretation Code Description Data Mel rce(s) Supporting Document(s) Calcium [Mass/volume] in Serum or Plasma 8.7 [facility] ([facility]) Sodium 141 [facility] Carbon dioxide, total [Moles/volume] in Serum or Plasma 38 [facility] ([facility]) Glucose 127 70-100 [facility] Potassium [Moles/volume] in Serum or Plasma 4.3 [facility] ([facility]) Chloride [Moles/volume] in Serum or Plasma 98 [facility] ([facility]) Blood Urea Nitrogen 13 7-18 [facility] ([facility]) Creatinine 0.62 0.55-1.30 [facility] ([facility]) Glomerular filtration rate/1.73 sq M.pre dicted [Volume Rate/Area] in Serum or Plasma by Creatinine-based formula (MDRD) Laboratory test result [facility] ([facility]) ID Date Data Source [id number] 02/14/2020 10:19:00 PM EDT [facility] ([facility]) Name Value Range Interpretation Code Description Data Mel rce(s) Supporting Document(s) MB/CK Relative Index 1.69 [facility] ([facility]) <content>DIAGNOSIS CRITERIA</content>
<content>MMB ng/ml Relative Index (RI)</content>
<content>NON-AMI < or = 5 N/A</content>
<content>MILTON ZONE > 5 < or = 4</content>
<content>AMI > 5 > 4</content>
<content></content> CK-MB Value Mass Laboratory test result [facility] ([facility]) CPK Creatine Phosphokinase 59 U/L 26-192 [facility] ([facility]) Troponin I Laboratory test result [facility] ([facility]) <content>Troponin I Reference Interval f or Siemens Gifford LOCI:</content>
<content></content>
<content>99th Percentile= 0.00-0.045 ng/ml</content>
<content></content>
<content>Risk Stratification:</content>
<content><= 0.10 ng/ml Decreased Risk for Adverse Clinical</content>
<content>Events.</content>
<content>0.10-1.50 ng/ml Increased Risk for Adverse Clinical</content>
<content>Events. Evaluation of additional</content>
<content>criterion and/or repeat testing in 2-6</content>
<content>hours is suggested to rule out myocardial</content>
<content>damage.</content>
<content>>= 1.50 ng/ml Indicative of Myocardial Injury.</content>
<content></content> ID Date Data Source [id number] 02/14/2020 07:38:[address] [facility] ([facility]) Name Value Range Interpretation Code Description Data Mel rce(s) Supporting Document(s) Lactate [Mass/volume] in Serum or Plasma 1.9 mmol/L 0.4-2.0 [facility] ([facility]) Y/N query for Sepsis Lactate Rule: Y ID Date Data Source [id number] 02/14/2020 07:38:[address] [facility] ([facility]) Name Value Range Interpretation Code Description Data Mel rce(s) Supporting Document(s) Red Blood Count 4.03 10 4.00-5.40 [facility] ([facility]) White Blood Count 11.8 10 4.0-10.0 [place] [facility]) Hematocrit 34.6 % 36.0-47.0 [facility] ([facility]) Mean Corpuscular Hemoglobin 25.8 pg 27.0-33.0 [facility] ([facility]) Hemoglobin 10.4 g/dL 12.0-15.5 [facility] [facility] Mean Corpuscular Volume 85.9 fl 80.0-96.0 [facility] ([facility]) Platelet Count, Automated 347 10 150-450 [facility] ([facility]) Mean Corpuscular HGB Conc 30.1 g/dL 32.0-36.5 [facility] ([facility]) Red Cell Distribution Width 15.8 % 11.5-14.5 [facility] ([facility]) [place] % 6.8 % 0.0-5.0 [facility] [facility]) Neutrophils % 75.2 % 36.0-66.0 [facility] ([facility]) Lymph % 16.1 % 24.0-44.0 [facility] [facility]) Immature Granulocyte % 0.7 % 0-3.0 [facility] ([facility]) Baso % 0.4 % 0.0-1.0 [facility] [facility] Eos % 0.8 % 0.0-3.0 [facility] [facility]) [place] # 0.8 10 0.0-0.8 [facility] [facility] Lymph # 1.9 10 1.5-5.0 [facility] [facility]) Nucleated Red Blood Cell % 0.0 % 0-0 [facility] ([facility]) Neutrophils # 8.9 10 1.5-8.5 [facility] ([facility]) Baso # 0.1 10 0.0-0.2 [facility] [facility]) Eos # 0.1 10 0.0-0.5 [facility] [facility]) ID Date Data Source [id number] 02/14/2020 07:38:00 PM EDT [facility] ([facility]) Name Value Range Interpretation Code Description Data Mel rce(s) Supporting Document(s) CPK Creatine Phosphokinase 55 U/L 26-192 [place] ([facility]) Troponin I Laboratory [facility] <content>Troponin I Reference Interval f or Siemens Gifford LOCI:</content>
<content></content>
<content>99th Percentile= 0.00-0.045 ng/ml</content>
<content></content>
<content>Risk Stratification:</content>
<content><= 0.10 ng/ml Decreased Risk for Adverse Clinical</content>
<content>Events.</content>
<content>0.10-1.50 ng/ml Increased Risk for Adverse Clinical</content>
<content>Events. Evaluation of additional</content>
<content>criterion and/or repeat testing in 2-6</content>
<content>hours is suggested to rule out myocardial</content>
<content>damage.</content>
<content>>= 1.50 ng/ml Indicative of Myocardial Injury.</content>
<content></content> MB/CK Relative Index 1.82 [facility]) <content>DIAGNOSIS CRITERIA</content>
<content>MMB ng/ml Relative Index (RI)</content>
<content>NON-AMI < or = 5 N/A</content>
<content>MILTON ZONE > 5 < or = 4</content>
<content>AMI > 5 > 4</content>
<content></content> CK-MB Value Mass Laboratory test result [facility]) ID Date Data Source [id number] 02/14/2020 07:38:[address] [facility] ([facility]) Name Value Range Interpretation Code Description Data Mel rce(s) Supporting Document(s) Venous Partial Pressure Co2 48.9 mmHg 38.0-50.0 [facility] ([facility]) Venous PH 7.411 units 7.330-7.430 [facility] ([facility]) Venous Hco3 30.4 meq/L 23.0-27.0 [facility] ([facility]) Venous Total Co2 31.9 meq/L 24.0-28.0 [facility] ([facility]) Venous Partial Pressure O2 110.2 mmHg 30.0-50.0 [facility] ([facility]) Venous Base Excess 4.9 [facility] ([facility]) Venous Standard Hco3 28.9 meq/L [facility] ( [facility]) Venous O2 Saturation 96.4 % 60.0-80.0 [facility] ([facility]) ID Date Data Source [id number] 02/14/2020 07:38:00 PM EDT [facility] ([facility]) Name Value Range Interpretation Code Description Data Mel rce(s) Supporting Document(s) Ast/Sgot 15 U/L 7-37 [facility] [facility] Alt/SGPT 31 U/L 12-78 [facility] ([facility]) Bilirubin,Total 0.3 mg/dL 0.2-1.0 [facility] ([facility]) Alkaline Phosphatase 126 U/L 45-117 [facility] ([facility]) Albumin 3.2 GM/DL 3.2-5.2 [facility] ([facility]) Bilirubin,Direct Laboratory test result 0.0-0.2 [facility] ([facility]) Total Protein 6.4 GM/DL 6.4-8.2 [facility] ([facility]) Albumin/Globulin Ratio 1.0 1.2-2.2 [facility] ([facility]) ID Date Data Source [id number] 02/14/2020 07:38:00 PM EDT [facility] ([facility]) Name Value Range Interpretation Code Description Data Mel rce(s) Supporting Document(s) Glucose, Fasting 181 mg/dL 70-100 [facility] ([facility]) Glomerular Filtration Rate Laboratory test result [facility] ([facility]) <content>Units are mL/min/1.73 m2</content>
<content></content>
<content>Chronic Kidney Disease Staging per NKF:</content>
<content></content>
<content>Stage I & II GFR >=60 Normal to Mildly Decreased</content>
<content>Stage III GFR 30- 59 Moderately Decreased</content>
<content>Stage IV GFR 15-29 Severely Decreased</content>
<content>Stage V GFR <15 Very Little GFR Left</content>
<content>ESRD GFR <15 on MACHINE APPLICATOR CEMENTER</content>
<content></content> Sodium Level 142 meq/L 136-145 [facility] ([facility]) Blood Urea Nitrogen 12 mg/dL 7-18 [facility] ([facility]) Creatinine For GFR 0.66 mg/dL 0.55-1.30 [facility] ([facility]) Potassium Serum 3.8 meq/L 3.5-5.1 [facility] ([facility]) Chloride Level 103 meq/L 98-107 [facility] ([facility]) Carbon Dioxide Level 32 meq/L 21-32 [facility] ([facility]) Anion Gap 7 meq/L 8-16 [facility] [facility] Calcium Level 8.3 mg/dL 8.8-10.2 [facility] ([facility]) ID Date Data Source [id number] 02/14/2020 07:38:[address] [facility] ([facility]) Name Value Range Interpretation Code Description Data Mel rce(s) Supporting Document(s) Natriuretic peptide.B prohormone N-Terminal [Mass/volu me] in Serum or Plasma 50 pg/mL [facility] ([facility] ) Thyrotropin [Units/volume] in Serum or Plasma by Detec tion limit <= 0.05 mIU/L 0.143 uIU/ML 0.358-3.740 [facility] ([facility] ) ID Date Data Source [id number] 02/14/2020 07:38:[address] [facility] Name Value Range Interpretation Code Description Data Mel rce(s) Supporting Document(s) Blood Culture Laboratory test result [facility] [place] ([facility]) No growth after 72 hours . All specimens observed for 5 days. Results final at that time. No growth after 48 hours . All specimens observed for 5 days. Results final at that time. No growth after 24 hours . All specimens observed for 5 days. Results final at that time. NO GROWTH AFTER 5 DAYS ID Date Data Source [id number] 02/14/2020 12:51:00 PM EDT [facility] Name Value Range Interpretation Code Description Data Mel rce(s) Supporting Document(s) Thyroid Stimulating Hormone 0.143 [facility] ([facility]) ID Date Data Source [id number] 02/14/2020 12:51:00 PM EDT [facility] Name Value Range Interpretation Code Description Data Mel rce(s) Supporting Document(s) Galectin 3 [Mass/volume] in Serum or Plasma 50 [facility] ([facility]) ID Date Data Source [id number] 02/14/2020 12:51:00 PM EDT [facility] Name Value Range Interpretation Code Description Data Mel rce(s) Supporting Document(s) Troponin Laboratory test result [place] [facility]) ID Date Data Source [id number] 02/14/2020 12:51:00 PM EDT [facility] Name Value Range Interpretation Code Description Data Mel rce(s) Supporting Document(s) Alanine aminotransferase [Enzymatic activity/volume] in Serum or Pl asma 31 [facility] ([facility] [place] [facility]) Calcium [Mass/volume] in Serum or Plasma 8.3 [facility] ([facility]) Albumin [Mass/volume] in Serum or Plasma 3.2 [facility] ([facility]) Carbon dioxide, total [Moles/volume] in Serum or Plasma 32 [facility] ([facility] [place]) Chloride [Moles/volume] in Serum or Plasma 103 [facility] ([facility] [place]) Protein [Mass/volume] in Serum or Plasma 6.4 [facility] ([facility] [place]) Potassium [Moles/volume] in Serum or Plasma 3.8 [facility] ([facility] [place]) Alkaline phosphatase [Enzymatic activity/volume] in Serum or Plasma 1 26 [facility] ([facility] [place]) Aspartate aminotransferase [Enzymatic activity/volume] in Serum or Plasma 15 [facility] ([facility]) Sodium 142 [facility] Urea nitrogen [Mass/volume] in Serum or Plasma 12 [facility] ([facility]) Creatinine For GFR 0.66 [facility] ([facility]) Glucose 181 70-100 [facility] ([facility] ID Date Data Source [id number] 02/14/2020 12:51:00 PM EDT [facility] ([facility]) Name Value Range Interpretation Code Description Data Mel rce(s) Supporting Document(s) White Blood Count 11.8 4.3-10.9 [facility] ([facility]) Red Blood Count 4.03 4.70-6.20 [facility] ([facility]) Platelets 347 130-400 [facility] Hemoglobin 10.4 13.0-17.0 [facility] ([facility]) Hematocrit 34.6 39.0-50.0 [facility] ([facility]) ID Date Data Source [id number] 02/01/2020 03:17:00 PM EDT [facility] ([facility]) Name Value Range Interpretation Code Description Data Mel rce(s) Supporting Document(s) Natriuretic peptide B [Mass/volume] in Serum or Plasma 22.6 pg/mL 0.0 -100.0 [facility] ([facility]) ID Date Data Source [id number] 02/01/2020 03:17:00 PM EDT [facility] ([facility]) Name Value Range Interpretation Code Description Data Mel rce(s) Supporting Document(s) Glucose [Mass/volume] in Serum or Plasma 326 mg/dL 74-99 [facility] ([facility]) 100-125 mg/dL PRE-DIABETES/FASTING >126 mg/dL DIABETES/FASTING Creatinine 0.9 mg/dL 0.6-1.3 [facility] Sodium [Moles/volume] in Serum or Plasma 139 meq/L 136-145 [facility] ([facility]) Urea nitrogen [Mass/volume] in Serum or Plasma 22 mg/dL 7-18 [facility] ([facility]) Chloride [Moles/volume] in Serum or Plasma 99 meq/L 98-107 [facility] ([facility]) Carbon dioxide, total [Moles/volume] in Serum or Plasma 29 meq/L 21 -32 [facility] ([facility]) Potassium [Moles/volume] in Serum or Plasma 4.2 meq/L 3.5-5.1 [facility] Glomerular filtration rate/1.73 sq M pre dicted among blacks [Volume Rate/Area] in Serum or Plasma by Creatinine-based formula (MDRD) Laboratory test result [facility] <content>CHRONIC KIDNEY DISEASE STAGING PER NKF</content>
<content></content>
<content>STAGE I & II GFR >= 60 NORMAL TO MILDLY DECREASED</content>
<content>STAGE III GFR 30-59 MODERATELY DECREASED</content>
<content>STAGE IV GFR 15-29 SEVERELY DECREASED</content>
<content>STAGE V GFR <15 VERY LITTLE GFR LEFT</content>
<content>ESRD GFR <15 ON MACHINE APPLICATOR CEMENTER</content>
<content></content> Glomerular filtration rate/1.73 sq M pre dicted among non-blacks [Volume Rate/Area] in Serum or Plasma by Creatinine-based formula (MDRD) Laboratory test result [facility] Calcium [Mass/volume] in Serum or Plasma 8.7 mg/dL 8.5-10.1 [facility] ([facility]) ID Date Data Source [id number] 01/29/2020 07:13:00 PM EDT [place] ([facility]) Name Value Range Interpretation Code Description Data Mel rce(s) Supporting Document(s) ABG Partial Pressure Co2 48.6 mmHg 35.0-45.0 [facility] ([facility]) ABG pH (Arterial) 7.418 units 7.350-7.450 [facility] ( [facility]) ABG Hco3 30.7 meq/L 22.0-26.0 [facility] ([facility]) ABG Partial Pressure O2 72.5 mmHg 75.0-100.0 [facility] ([facility]) ABG Total Co2 32.2 meq/L 23.0-31.0 [facility] ([facility]) ABG Base Excess 5.3 [facility] ([facility]) ABG O2 Saturation 92.7 % 95.0-99.0 [facility] ([facility]) ABG Standard Hco3 29.2 meq/L 22.0-26.0 [facility] ([facility]) ID Date Data Source [id number] 01/29/2020 05:37:00 PM EDT [facility] ([facility]) Name Value Range Interpretation Code Description Data Mel rce(s) Supporting Document(s) Blood Culture Laboratory test result [facility] ([facility]) No growth after 72 hours . All specimens observed for 5 days. Results final at that time. No growth after 48 hours . All specimens observed for 5 days. Results final at that time. No growth after 24 hours . All specimens observed for 5 days. Results final at that time. NO GROWTH AFTER 5 DAYS ID Date Data Source [id number] 01/29/2020 05:27:00 PM EDT [facility] ([facility]) Name Value Range Interpretation Code Description Data Mel rce(s) Supporting Document(s) Alkaline Phosphatase 163 U/L 45-117 [facility] ([facility]) Ast/Sgot 18 U/L 7-37 [facility] [facility] Alt/SGPT 32 U/L 12-78 [facility] [facility]) Bilirubin,Direct Laboratory test result 0.0-0.2 [facility] ([facility]) Total Protein 6.4 GM/DL 6.4-8.2 [facility] ([facility]) Bilirubin,Total 0.2 mg/dL 0.2-1.0 [facility] ([facility]) Albumin/Globulin Ratio 1.0 1.2-2.2 [facility] ([facility]) Albumin 3.2 GM/DL 3.2-5.2 [facility] [facility] ID Date Data Source [id number] 01/29/2020 05:27:00 PM EDT [place] ([facility]) Name Value Range Interpretation Code Description Data Mel rce(s) Supporting Document(s) Inr 0.91 [place] [facility] [facility] THERAPUTIC HUMAN INR VALUES INDICATIONS NORMAL RANGES PROPHYLAXIS/TREATMENT OF: VENOUS THROMBOSIS 2.0-3.0 PULMONARY EMBOLISM 2.0-3.0 PREVENTION OF SYSTEMIC EMBOLISM FROM: TISSUE HEART VALVES 2.0-3.0 ACUTE MYOCARDIAL INFARCTION 2.0-3.0 VALVULAR HEART DISEASE 2.0-3.0 ATRIAL FIBRILLATION 2.0-3.0 MECHANICAL VALVES(HIGH RISK) 2.5-3.5 RECURRENT MYOCARDIAL INFARCTION 2.5-3.5 Prothrombin Time 12.4 s 11.8-14.0 [place] ([facility]) ID Date Data Source [id number] 01/29/2020 05:27:00 PM EDT [place] ([facility]) Name Value Range Interpretation Code Description Data [facility](s) Supporting Document(s) CK-MB Value Mass 1.5 ng/mL [place] ([facility]) CPK Creatine Phosphokinase 55 U/L 26-192 [facility] ([facility]) MB/CK Relative Index 2.73 [place] ([facility]) <content>DIAGNOSIS CRITERIA</content>
<content>MMB ng/ml Relative Index (RI)</content>
<content>NON-AMI < or = 5 N/A</content>
<content>MILTON ZONE > 5 < or = 4</content>
<content>AMI > 5 > 4</content>
<content></content> Troponin I Laboratory test result [place] ([facility]) <content>Troponin I Reference Interval f or Siemens Gifford LOCI:</content>
<content></content>
<content>99th Percentile= 0.00-0.045 ng/ml</content>
<content></content>
<content>Risk Stratification:</content>
<content><= 0.10 ng/ml Decreased Risk for Adverse Clinical</content>
<content>Events.</content>
<content>0.10-1.50 ng/ml Increased Risk for Adverse Clinical</content>
<content>Events. Evaluation of additional</content>
<content>criterion and/or repeat testing in 2-6</content>
<content>hours is suggested to rule out myocardial</content>
<content>damage.</content>
<content>>= 1.50 ng/ml Indicative of Myocardial Injury.</content>
<content></content> ID Date Data Source [id number] 01/29/2020 05:27:00 PM EDT [facility] ([facility]) Name Value Range Interpretation Code Description Data Mel rce(s) Supporting Document(s) Blood Urea Nitrogen 15 mg/dL 7-18 [facility] ([facility]) Creatinine For GFR 0.81 mg/dL 0.55-1.30 [facility] ([facility]) Glucose, Fasting 264 mg/dL 70-100 [facility] ([facility]) Sodium Level 142 meq/L 136-145 [facility] ([facility]) Glomerular Filtration Rate Laboratory test result [facility] <content>Units are mL/min/1.73 m2</content>
<content></content>
<content>Chronic Kidney Disease Staging per NKF:</content>
<content></content>
<content>Stage I & II GFR >=60 Normal to Mildly Decreased</content>
<content>Stage III GFR 30- 59 Moderately Decreased</content>
<content>Stage IV GFR 15-29 Severely Decreased</content>
<content>Stage V GFR <15 Very Little GFR Left</content>
<content>ESRD GFR <15 on MACHINE APPLICATOR CEMENTER</content>
<content></content> Potassium Serum 4.2 meq/L 3.5-5.1 [facility] ([facility]) Carbon Dioxide Level 31 meq/L 21-32 [facility] ([facility]) Anion Gap 7 meq/L 8-16 [facility] [facility] Chloride Level 104 meq/L 98-107 [facility] ([facility]) Calcium Level 8.1 mg/dL 8.8-10.2 [facility] ([facility]) ID Date Data Source [id number] 01/29/2020 05:27:[address] [facility] ([facility]) Name Value Range Interpretation Code Description Data Mel rce(s) Supporting Document(s) Natriuretic peptide.B prohormone N-Terminal [Mass/volu me] in Serum or Plasma 73 pg/mL [facility] ([facility] ) Thyrotropin [Units/volume] in Serum or Plasma by Detec tion limit <= 0.05 mIU/L 0.292 uIU/ML 0.358-3.740 [place] ([facility] ) Thyroxine (T4) Ab [Units/volume] in Serum 7.2 ug/dL 4.5-12.0 [place] ([facility]) Lactate [Mass/volume] in Serum or Plasma 2.5 mmol/L 0.4-2.[address] panic limits [facility] ([facility]) Y/N query for Sepsis Lactate Rule: Y ID Date Data Source [id number] 01/29/2020 05:27:00 PM EDT [place] ([facility]) Name Value Range Interpretation Code Description Data [facility] rce(s) Supporting Document(s) Blood Culture Laboratory test result [place] [facility] No growth after 72 hours . All specimens observed for 5 days. Results final at that time. No growth after 48 hours . All specimens observed for 5 days. Results final at that time. No growth after 24 hours . All specimens observed for 5 days. Results final at that time. NO GROWTH AFTER 5 DAYS ID Date Data Source [id number] 01/29/2020 05:27:00 PM EDT [place] ([facility]) Name Value Range Interpretation Code Description Data Mel rce(s) Supporting Document(s) White Blood Count 12.8 10 4.0-10.0 [place] ([facility]) Red Blood Count 3.81 10 4.00-5.40 [place] ([facility]) Hemoglobin 9.7 g/dL 12.0-15.5 [facility] ([facility]) Hematocrit 33.1 % 36.0-47.0 [facility] ([place] [facility]) Mean Corpuscular Volume 86.9 fl 80.0-96.0 [facility] ([facility]) Mean Corpuscular Hemoglobin 25.5 pg 27.0-33.0 [facility] ([facility]) Platelet Count, Automated 378 10 150-450 [facility] ([facility]) Mean Corpuscular HGB Conc 29.3 g/dL 32.0-36.5 [facility] ([facility]) Red Cell Distribution Width 15.8 % 11.5-14.5 [facility] ([facility]) Neutrophils % 81.3 % 36.0-66.0 [facility] ([facility]) [place] % 5.2 % 0.0-5.0 [facility] [facility]) Lymph % 11.6 % 24.0-44.0 [facility] [facility]) Nucleated Red Blood Cell % 0.0 % 0-0 [facility] ([facility]) Eos % 0.5 % 0.0-3.0 [facility] [facility]) Immature Granulocyte % 1.0 % 0-3.0 [facility] ([facility]) Baso % 0.4 % 0.0-1.0 [facility] [facility]) Neutrophils # 10.4 10 1.5-8.5 [facility] ([facility]) [place] # 0.7 10 0.0-0.8 [facility] ([place] [facility]) Lymph # 1.5 10 1.5-5.0 [facility] [facility]) Baso # 0.1 10 0.0-0.2 [facility] ([place] [facility]) Eos # 0.1 10 0.0-0.5 [facility] ([place] [facility]) ID Date Data Source [id number] 01/29/2020 05:25:00 PM EDT [facility] ([facility]) Name Value Range Interpretation Code Description Data Mel rce(s) Supporting Document(s) ABG pH (Arterial) 7.407 units 7.350-7.450 [facility] ( [facility]) ABG Partial Pressure O2 149.8 mmHg 75.0-100.0 [facility] NT ([facility]) ABG Hco3 28.7 meq/L 22.0-26.0 [facility] ([place] [facility]) ABG Total Co2 30.2 meq/L 23.0-31.0 [facility] ([facility]) ABG Partial Pressure Co2 46.7 mmHg 35.0-45.0 [facility] T ([facility]) ABG O2 Saturation 97.2 % 95.0-99.0 [facility] ([facility]) ABG Base Excess 3.5 [facility] ([facility]) ABG Standard Hco3 27.6 meq/L 22.0-26.0 [facility] ([facility]) ID Date Data Source [id number] 12/15/2019 11:21:00 AM EDT [facility] ([facility]) Name Value Range Interpretation Code Description Data Mel rce(s) Supporting Document(s) Erythrocytes [#/volume] in Blood by Automated count 4.00 x10*6/UL 4.2 0-6.30 [facility] ([facility]) Leukocytes [#/volume] in Blood by Automated count 9.5 x10*3/UL 4.1-10 .9 [facility] ([facility]) Hemoglobin [Mass/volume] in Blood 10.4 g/dL 12.0-18.0 [facility] NOTE: RESULT VERIFIED. Hematocrit [Volume Fraction] of Blood by Automated count 32.3 % 3 7.0-51.0 [facility] ([facility]) MCV 80.7 fL 80.0-97.0 [facility] ([place] [facility]) Erythrocyte distribution width [Ratio] by Automated count 14.3 % 11.6-13.7 [facility] ([facility]) MCHC 32.4 g/dL 31.0-38.0 [facility] [facility] MCH 26.1 pg 26.0-32.0 [facility] [facility] Mid % 3.6 % 1.7-9.3 [facility] ([place] [facility]) Platelets [#/volume] in Blood by Automated count 352 x10*3/UL 140-440 [facility] ([facility]) Lymph % 12.7 % 10.0-58.5 [facility] [facility] MPV 7.2 FL 7.8-11.0 [facility] [facility] Neut % 83.7 % 37.0-92.0 [facility] [facility] Lymph # 1.2 x10*3/UL 0.6-4.1 [facility] ([facility]) Mid # 0.4 x10*3/UL 0.1-0.6 [facility] ([facility]) Neut # 7.9 x10*3/UL 2.0-7.8 [facility] ([facility]) ID Date Data Source [id number] 12/10/2019 12:41:00 PM EDT [facility] ([facility]) Name Value Range Interpretation Code Description Data Mel rce(s) Supporting Document(s) Laboratory test finding (navigational concept) 62.0 MMHG 3 5.0-45.0 Above upper panic limits [facility] ([facility]) Laboratory test finding (navigational concept) 7.372 units 7.350-7.45 0 [facility] ([facility]) Laboratory test finding (navigational concept) 73.0 MMHG 80-105 [facility] ([facility]) Laboratory test finding (navigational concept) 36.0 mmol/L 22.0-26.0 [facility] ([facility]) Laboratory test finding (navigational concept) 38.0 mmol/L 23.0-27.0 [facility] ([facility]) Laboratory test finding (navigational concept) 93 % 95-98 [facility] ([facility]) Laboratory test finding (navigational concept) 11.0 mmol/L [facility] ([facility]) ID Date Data Source [id number] 12/10/2019 11:21:00 AM EDT [facility] ([facility]) Name Value Range Interpretation Code Description Data Mel rce(s) Supporting Document(s) Prothrombin Time 12.0 s 11.8-14.0 [facility] ([facility]) Inr 0.91 [facility] ([place] [facility] THERAPUTIC HUMAN INR VALUES INDICATIONS NORMAL RANGES PROPHYLAXIS/TREATMENT OF: VENOUS THROMBOSIS 2.0-3.0 PULMONARY EMBOLISM 2.0-3.0 PREVENTION OF SYSTEMIC EMBOLISM FROM: TISSUE HEART VALVES 2.0-3.0 ACUTE MYOCARDIAL INFARCTION 2.0-3.0 VALVULAR HEART DISEASE 2.0-3.0 ATRIAL FIBRILLATION 2.0-3.0 MECHANICAL VALVES(HIGH RISK) 2.5-3.5 RECURRENT MYOCARDIAL INFARCTION 2.5-3.5 ID Date Data Source [id number] 12/10/2019 11:21:00 AM EDT [facility] ([facility]) Name Value Range Interpretation Code Description Data Mel rce(s) Supporting Document(s) Red Blood Count 4.56 10 4.00-5.40 [facility] ([facility]) White Blood Count 17.1 10 4.0-10.0 [facility] ([facility]) Hematocrit 39.8 % 36.0-47.0 [facility] [facility] Hemoglobin 11.8 g/dL 12.0-15.5 [facility] ([facility]) Mean Corpuscular Volume 87.3 fl 80.0-96.0 [facility] ([facility]) Red Cell Distribution Width 15.7 % 11.5-14.5 [facility] ([facility]) Mean Corpuscular Hemoglobin 25.9 pg 27.0-33.0 [facility] ([facility]) Mean Corpuscular HGB Conc 29.6 g/dL 32.0-36.5 [facility] ([facility]) Neutrophils % 79.2 % 36.0-66.0 [facility] ([facility]) Platelet Count, Automated 376 10 150-450 [facility] ([facility]) Lymph % 11.5 % 24.0-44.0 [facility] [facility]) Eos % 1.1 % 0.0-3.0 [facility] [facility]) Baso % 0.2 % 0.0-1.0 [facility] ([place] [facility]) Immature Granulocyte % 1.6 % 0-3.0 [facility] ([facility]) [place] % 6.4 % 0.0-5.0 [facility] ([place] [facility]) Lymph # 2.0 10 1.5-5.0 [facility] ([place] [facility]) Nucleated Red Blood Cell % 0.0 % 0-0 [facility] ([facility]) Neutrophils # 13.5 10 1.5-8.5 [facility] ([facility]) Eos # 0.2 10 0.0-0.5 [facility] ([place] [facility]) [place] # 1.1 10 0.0-0.8 [facility] ([place] [facility]) Baso # 0.0 10 0.0-0.2 [facility] ([place] [facility]) ID Date Data Source [id number] 12/10/2019 11:21:00 AM EDT [facility] ([facility]) Name Value Range Interpretation Code Description Data Mel rce(s) Supporting Document(s) Natriuretic peptide.B prohormone N-Terminal [Mass/volu me] in Serum or Plasma 234 pg/mL [facility] ([facility] ) ID Date Data Source [id number] 12/10/2019 11:21:00 AM EDT [facility] ([facility]) Name Value Range Interpretation Code Description Data Mel rce(s) Supporting Document(s) Glucose, Fasting 144 mg/dL 70-100 [facility] ([facility]) Blood Urea Nitrogen 18 mg/dL 7-18 [facility] ([facility]) Glomerular Filtration Rate Laboratory test result [place] ([facility]) <content>Units are mL/min/1.73 m2</content>
<content></content>
<content>Chronic Kidney Disease Staging per NKF:</content>
<content></content>
<content>Stage I & II GFR >=60 Normal to Mildly Decreased</content>
<content>Stage III GFR 30- 59 Moderately Decreased</content>
<content>Stage IV GFR 15-29 Severely Decreased</content>
<content>Stage V GFR <15 Very Little GFR Left</content>
<content>ESRD GFR <15 on MACHINE APPLICATOR CEMENTER</content>
<content></content> Creatinine For GFR 0.73 mg/dL 0.55-1.30 [facility] ([facility]) Chloride Level 101 meq/L 98-107 [facility] ([facility]) Sodium Level 143 meq/L 136-145 [facility] ([facility] [facility]) Potassium Serum 4.1 meq/L 3.5-5.1 [facility] ([facility]) Anion Gap 3 meq/L 8-16 [facility] ([place] [facility]) Calcium Level 8.9 mg/dL 8.8-10.2 [facility] ([facility]) Carbon Dioxide Level 39 meq/L 21-32 [facility] ([facility]) ID Date Data Source [id number] 12/10/2019 11:21:00 AM EDT [facility] ([facility]) Name Value Range Interpretation Code Description Data Mel rce(s) Supporting Document(s) Alt/SGPT 31 U/L 12-78 [facility] ([place] [facility]) Ast/Sgot 15 U/L 7-37 [facility] ([place] [facility]) Bilirubin,Direct 0.1 mg/dL 0.0-0.2 [facility] ([facility]) Alkaline Phosphatase 110 U/L 45-117 [facility] ([facility]) Bilirubin,Total 0.4 mg/dL 0.2-1.0 [facility] ([facility]) Total Protein 6.7 GM/DL 6.4-8.2 [facility] ([facility]) Albumin 3.3 GM/DL 3.2-5.2 [facility] ([place] [facility] Albumin/Globulin Ratio 1.0 1.2-2.2 [facility] ([facility] [facility]) ID Date Data Source [id number] 12/10/2019 11:21:00 AM EDT [facility] ([facility]) Name Value Range Interpretation Code Description Data Mel rce(s) Supporting Document(s) CPK Creatine Phosphokinase 59 U/L 26-192 [facility] ([place] [facility]) MB/CK Relative Index 3.05 [place] ([facility]) <content>DIAGNOSIS CRITERIA</content>
<content>MMB ng/ml Relative Index (RI)</content>
<content>NON-AMI < or = 5 N/A</content>
<content>MILTON ZONE > 5 < or = 4</content>
<content>AMI > 5 > 4</content>
<content></content> CK-MB Value Mass 1.8 ng/mL [facility] Troponin I Laboratory test result [facility]) <content>Troponin I Reference Interval f or Siemens Gifford LOCI:</content>
<content></content>
<content>99th Percentile= 0.00-0.045 ng/ml</content>
<content></content>
<content>Risk Stratification:</content>
<content><= 0.10 ng/ml Decreased Risk for Adverse Clinical</content>
<content>Events.</content>
<content>0.10-1.50 ng/ml Increased Risk for Adverse Clinical</content>
<content>Events. Evaluation of additional</content>
<content>criterion and/or repeat testing in 2-6</content>
<content>hours is suggested to rule out myocardial</content>
<content>damage.</content>
<content>>= 1.50 ng/ml Indicative of Myocardial Injury.</content>
<content></content> ID Date Data Source [id number] 12/10/2019 11:21:[address] [facility] ([facility]) Name Value Range Interpretation Code Description Data Mel rce(s) Supporting Document(s) Lactate [Mass/volume] in Serum or Plasma 1.2 mmol/L 0.4-2.0 [facility] ([place] [facility]) Y/N query for Sepsis Lactate Rule: Y ID Date Data Source [id number] 12/10/2019 11:21:00 AM EDT [facility] ([facility]) Name Value Range Interpretation Code Description Data Mel rce(s) Supporting Document(s) Venous Partial Pressure Co2 76.2 mmHg 38.0-50.0 [facility] ([place] [facility]) Venous Partial Pressure O2 59.9 mmHg 30.0-50.0 [facility] ([place] [facility]) Venous PH 7.319 units 7.330-7.430 [facility] ([facility]) Venous Base Excess 9.5 [facility] ([facility]) Venous Hco3 38.3 meq/L 23.0-27.0 [facility] ([place] [facility]) Venous Total Co2 40.6 meq/L 24.0-28.0 [facility] ([facility]) Venous O2 Saturation 89.0 % 60.0-80.0 [facility] ( [facility] Venous Standard Hco3 33.0 meq/L [facility] ( [place] [facility]) ID Date Data Source [id number] 12/02/2019 12:00:[address] [facility] Smith Marie Jr, MD Patient Name: MIGUEL [id number] [facility] Date of : 1955[place] [address] Date of Exam: 12/02/2019#: Fax: [phone] EXAM: CHEST (2 VIEW) X-RAYCLINICAL INFORMATION: Dyspnea.Comparison, portable chest 06/19/2019, CT chest 06/08/2019.FINDINGS:The two views show the lungs mildly hyperinflated with flatteneddiaphragms, increased AP diameter of the chest and prominent retrosternalclear space consistent with COPD. There is some pulmonary arteryprominence centrally and tapering rapidly. There is also some pulmonaryvenous engorgement suggesting venous hypertension but no interstitialedema, pleural effusion or acute infiltrate. Heart size borderline withoutleft ventricular enlargement but some left atrial enlargement suspected.The aorta is mildly tortuous, unchanged. Airway intact. The bony thoraxshows no acute compression deformity or destructive lesion.IMPRESSION:1. Hyperinflation with COPD and some pulmonary artery hypertensionsuggested.2. Borderline heart size with left atrial enlargement but also some mildpulmonary venous hypertension. No interstitial edema.Ney Ramos, HAYLEY/Krishna you for referring MIGUEL NAQVI to our office. Electronically Signed - NEY RAMOS MD 12/02/19 16:37 Name Value Range Interpretation Code Description Data Mel rce(s) Supporting Document(s) ID Date Data Source [id number] 11/30/2019 03:35:00 PM EDT [facility] ([facility]) Name Value Range Interpretation Code Description Data Mel rce(s) Supporting Document(s) Glucose [Mass/volume] in Serum or Plasma 172 mg/dL 74-99 [facility] ([facility]) 100-125 mg/dL PRE-DIABETES/FASTING >126 mg/dL DIABETES/FASTING Urea nitrogen [Mass/volume] in Serum or Plasma 17 mg/dL 7-18 [facility] ([facility]) Creatinine 0.9 mg/dL 0.6-1.3 [facility] Sodium [Moles/volume] in Serum or Plasma 143 meq/L 136-145 [facility] ([facility]) Carbon dioxide, total [Moles/volume] in Serum or Plasma 36 meq/L 21 -32 [facility] ([facility]) Chloride [Moles/volume] in Serum or Plasma 99 meq/L 98-107 [facility] ([facility]) Potassium [Moles/volume] in Serum or Plasma 3.6 meq/L 3.5-5.1 [facility] ([facility]) Calcium [Mass/volume] in Serum or Plasma 8.5 mg/dL 8.5-10.1 [facility] ([facility]) Glomerular filtration rate/1.73 sq M pre dicted among non-blacks [Volume Rate/Area] in Serum or Plasma by Creatinine-based formula (MDRD) Laboratory test result [facility] Glomerular filtration rate/1.73 sq M pre dicted among blacks [Volume Rate/Area] in Serum or Plasma by Creatinine-based formula (MDRD) Laboratory test result [facility] <content>CHRONIC KIDNEY DISEASE STAGING PER NKF</content>
<content></content>
<content>STAGE I & II GFR >= 60 NORMAL TO MILDLY DECREASED</content>
<content>STAGE III GFR 30-59 MODERATELY DECREASED</content>
<content>STAGE IV GFR 15-29 SEVERELY DECREASED</content>
<content>STAGE V GFR <15 VERY LITTLE GFR LEFT</content>
<content>ESRD GFR <15 ON MACHINE APPLICATOR CEMENTER</content>
<content></content> ID Date Data Source [id number] 11/30/2019 03:35:00 PM EDT [place] ([facility]) Name Value Range Interpretation Code Description Data Mel rce(s) Supporting Document(s) Natriuretic peptide B [Mass/volume] in Serum or Plasma 33.8 pg/mL 0.0 -100.0 [facility] ([facility]) ID Date Data Source [id number] 11/30/2019 03:35:[address] [facility] Name Value Range Interpretation Code Description Data Mel rce(s) Supporting Document(s) Leukocytes [#/volume] in Blood by Automated count 17.2 x10*3/UL 4.1-1 0.9 [place] ([facility]) Erythrocytes [#/volume] in Blood by Automated count 4.58 x10*6/UL 4.2 0-6.30 [facility] ([facility]) MCV 81.1 fL 80.0-97.0 [facility] [facility] Hemoglobin [Mass/volume] in Blood 11.9 g/dL 12.0-18.0 [facility] ([facility]) Hematocrit [Volume Fraction] of Blood by Automated count 37.2 % 3 7.0-51.0 [facility] ([facility]) Erythrocyte distribution width [Ratio] by Automated count 14.2 % 11.6-13.7 [facility] ([facility]) MCH 25.9 pg 26.0-32.0 [facility] MCHC 31.9 g/dL 31.0-38.0 [facility] Lymph % 11.0 % 10.0-58.5 [facility] ([facility]) Platelets [#/volume] in Blood by Automated count 465 x10*3/UL 140-440 [facility] ([facility]) MPV 6.8 FL 7.8-11.0 [facility] [facility] Mid % 3.4 % 1.7-9.3 [facility] [facility] Neut % 85.6 % 37.0-92.0 [facility] [facility] Mid # 0.6 x10*3/UL 0.1-0.6 [facility] ([facility]) Lymph # 1.9 x10*3/UL 0.6-4.1 [facility] ([facility]) Neut # 14.7 x10*3/UL 2.0-7.8 [facility] ([facility]) ID Date Data Source [id number] 11/10/2019 12:00:00 AM EDT [facility] Name Value Range Interpretation Code Description Data Mel rce(s) Supporting Document(s) 2019-nCoV N XXX Ql MOE N2 [facility] [place] This lab was ordered by [facility] and reported by KIERA. ID Date Data Source [id number] 08/04/2019 08:39:00 AM EDT [facility] Name Value Range Interpretation Code Description Data Mel rce(s) Supporting Document(s) Thyrotropin [Units/volume] in Serum or Plasma by Detec tion limit <= 0.05 mIU/L 1.61 uIU/mL 0.36-3.74 [facility] ([facility] ) ID Date Data Source [id number] 08/04/2019 08:39:00 AM EDT [facility] ([facility]) Name Value Range Interpretation Code Description Data Mel rce(s) Supporting Document(s) Sodium [Moles/volume] in Serum or Plasma 141 meq/L 136-145 [facility] ([facility]) Creatinine 0.6 mg/dL 0.6-1.3 [facility]) Glucose [Mass/volume] in Serum or Plasma 147 mg/dL 74-99 [facility] ([facility]) 100-125 mg/dL PRE-DIABETES/FASTING >126 mg/dL DIABETES/FASTING Urea nitrogen [Mass/volume] in Serum or Plasma 15 mg/dL 7-18 [facility] ([facility]) Carbon dioxide, total [Moles/volume] in Serum or Plasma 39 meq/L 21 -32 [facility] ([facility]) Potassium [Moles/volume] in Serum or Plasma 4.1 meq/L 3.5-5.1 [facility] ([facility]) Chloride [Moles/volume] in Serum or Plasma 101 meq/L 98-107 [facility] ([facility]) Calcium [Mass/volume] in Serum or Plasma 8.9 mg/dL 8.5-10.1 [facility] Glomerular filtration rate/1.73 sq M pre dicted among non-blacks [Volume Rate/Area] in Serum or Plasma by Creatinine-based formula (MDRD) Laboratory test result [facility] Glomerular filtration rate/1.73 sq M pre dicted among blacks [Volume Rate/Area] in Serum or Plasma by Creatinine-based formula (MDRD) Laboratory test result [facility] <content>CHRONIC KIDNEY DISEASE STAGING PER NKF</content>
<content></content>
<content>STAGE I & II GFR >= 60 NORMAL TO MILDLY DECREASED</content>
<content>STAGE III GFR 30-59 MODERATELY DECREASED</content>
<content>STAGE IV GFR 15-29 SEVERELY DECREASED</content>
<content>STAGE V GFR <15 VERY LITTLE GFR LEFT</content>
<content>ESRD GFR <15 ON MACHINE APPLICATOR CEMENTER</content>
<content></content> ID Date Data Source [id number] 08/04/2019 08:39:00 AM EDT [place] [facility] Name Value Range Interpretation Code Description Data Mel rce(s) Supporting Document(s) Hemoglobin A1c/Hemoglobin.total in Blood 7.7 g/dL 4.8-5.6 [facility] Lab Result Notes: Pre-Diabetes 5.7 - 6.4 % Diabetes = or > 6.5% Glucose mean value [Mass/volume] in Blood Estimated fr om glycated hemoglobin 174 mg/dL 60-110 [facility] ID Date Data Source [id number] 08/04/2019 08:39:00 AM EDT [place] [facility] Name Value Range Interpretation Code Description Data Mel rce(s) Supporting Document(s) Leukocytes [#/volume] in Blood by Automated count 11.1 x10*3/UL 4.1-1 0.9 [place] ([facility]) NOTE: RESULT VERIFIED. Hematocrit [Volume Fraction] of Blood by Automated count 32.6 % 3 7.0-51.0 [place] ([facility]) Hemoglobin [Mass/volume] in Blood 10.2 g/dL 12.0-18.0 [facility] ([facility]) Erythrocytes [#/volume] in Blood by Automated count 4.03 x10*6/UL 4.2 0-6.30 [place] ([facility]) Erythrocyte distribution width [Ratio] by Automated count 15.4 % 11.6-13.7 [facility] ([facility]) MCV 80.7 fL 80.0-97.0 [facility] [facility] MCH 25.3 pg 26.0-32.0 [facility] [facility] MCHC 31.4 g/dL 31.0-38.0 [facility] [facility] Platelets [#/volume] in Blood by Automated count 434 x10*3/UL 140-440 [facility] ([facility]) Lymph % 21.3 % 10.0-58.5 [facility] [facility]) MPV 6.9 FL 7.8-11.0 [facility] [facility]) Lymph # 2.3 x10*3/UL 0.6-4.1 [facility] ([facility]) Mid % 6.5 % 1.7-9.3 [facility] [facility] Neut % 72.2 % 37.0-92.0 [facility] [facility] Mid # 0.8 x10*3/UL 0.1-0.6 [facility] ([facility]) Neut # 8.0 x10*3/UL 2.0-7.8 [facility] ([facility]) Procedure Social History Code Duration Value Status Description Data Source(s ) Smoking 04/12/2020 12:00:00 AM EST Patient is a former smoker completed Patient is a former smoker [facility] ([facility]) Smoking 11/17/2019 12:00:00 AM EDT Patient is a former smoker completed Patient is a former smoker [facility] ([facility] ) Vital Signs ID Date Data Source UNK Name Value Range Interpretation Code Description Data Source(s) Body mass index (BMI) [Ratio] 37.9 kg/m2 37.9 k g/m2 [facility] ([facility]) Body height 65 [in_i] 65 [in_i] [facility] 5'5" Body weight 228.00 [lb_av] 228.00 [lb_av] [facility] ([facility]) Body mass index (BMI) [Ratio] 39.4 kg/m2 39.4 k g/m2 [facility] ([facility]) Oxygen saturation in Arterial blood by Pulse oximetry 90 % 90 % [place] ([facility]) RM Air Body weight 237.00 [lb_av] 237.00 [lb_av] [facility] ([facility]) Body height 65 [in_i] 65 [in_i] [facility] ([facility]) 5'5" Heart rate 88 /min 88 /min [place] [facility]) Diastolic blood pressure 76 mm[Hg] 76 mm[Hg] [facility] ([facility]) Systolic blood pressure 120 mm[Hg] 120 mm[Hg] [facility] ([facility]) Diastolic blood pressure--sitting 64 mm[Hg] 64 mm[Hg] [facility] ([facility]) large cuff, Ra Systolic blood pressure--sitting 130 mm[Hg] 130 mm[Hg] [facility] ([facility]) large cuff, Ra Body mass index (BMI) [Ratio] 39.1 kg/m2 39.1 k g/m2 [facility] ([facility]) Body height 65 [in_i] 65 [in_i] [facility]) 5'5" Body weight 235.00 [lb_av] 235.00 [lb_av] [facility] ([facility]) Body mass index (BMI) [Ratio] 39.1 kg/m2 39.1 k g/m2 [place] ([facility]) Oxygen saturation in Arterial blood by Pulse oximetry 89 % 89 % [facility] ([facility]) With O2 @ 3L Body weight 235.00 [lb_av] 235.00 [lb_av] [facility] Body height 65 [in_i] 65 [in_i] [place] ([facility]) 5'5" Heart rate 92 /min 92 /min [place] [facility]) Diastolic blood pressure 90 mm[Hg] 90 mm[Hg] [place] ([facility]) Systolic blood pressure 150 mm[Hg] 150 mm[Hg] [facility] ([facility]) Diastolic blood pressure--sitting 70 mm[Hg] 70 mm[Hg] [facility] ([facility]) large cuff, Ra Systolic blood pressure--sitting 134 mm[Hg] 134 mm[Hg] [facility] ([facility]) large cuff, Ra Heart rate 81 /min 81 /min [facility] ([facility]) Body mass index (BMI) [Ratio] 38.8 kg/m2 38.8 k g/m2 [facility] ([facility]) Body height 65 [in_i] 65 [in_i] [place] [facility] 5'5" Body weight 233.00 [lb_av] 233.00 [lb_av] [facility] ([facility]) Oxygen saturation in Arterial blood by Pulse oximetry 96 % 96 % [place] ([facility]) Body weight 233.00 [lb_av] 233.00 [lb_av] [facility] ([facility]) Heart rate 85 /min 85 /min [place] [facility]) Diastolic blood pressure 60 mm[Hg] 60 mm[Hg] [place] ([facility]) Systolic blood pressure 116 mm[Hg] 116 mm[Hg] [facility] ([facility]) Oxygen saturation in Arterial blood by Pulse oximetry 92 % 92 % [facility] ([facility]) With O2 Body weight 235.00 [lb_av] 235.00 [lb_av] [facility] ([facility]) Heart rate 87 /min 87 /min [place] [facility]) Diastolic blood pressure 68 mm[Hg] 68 mm[Hg] [facility] ([facility]) Systolic blood pressure 122 mm[Hg] 122 mm[Hg] [facility] ([facility]) Diastolic blood pressure--sitting 70 mm[Hg] 70 mm[Hg] [place] ([facility]) Systolic blood pressure--sitting 122 mm[Hg] 122 mm[Hg] [place] ([facility]) Body mass index (BMI) [Ratio] 39.8 kg/m2 39.8 k g/m2 [place] ([facility]) Body height 65 [in_i] 65 [in_i] [place] [facility] 5'5" Body weight 239.00 [lb_av] 239.00 [lb_av] [facility] ([facility]) Oxygen saturation in Arterial blood by Pulse oximetry 94 % 94 % [place] ([facility]) With O2 Body weight 232.00 [lb_av] 232.00 [lb_av] [facility] ([facility]) Heart rate 80 /min 80 /min [place] [facility]) Diastolic blood pressure 60 mm[Hg] 60 mm[Hg] [facility] ([facility]) Systolic blood pressure 110 mm[Hg] 110 mm[Hg] [facility] ([facility]) Oxygen saturation in Arterial blood by Pulse oximetry 90 % 90 % [facility] ([facility]) 4L on demand Body weight 224.00 [lb_av] 224.00 [lb_av] [facility] Heart rate 89 /min 89 /min [facility] ([facility]) Diastolic blood pressure 54 mm[Hg] 54 mm[Hg] [facility] ([facility]) Systolic blood pressure 110 mm[Hg] 110 mm[Hg] [facility] ([facility]) Body weight 90.[address] [facility] ([facility]) Body mass index (BMI) [Ratio] 33.3 kg/m2 33.3 k g/m2 [facility] ([facility]) Body weight 200.00 [lb_av] 200.00 [lb_av] [facility] Body height 65 [in_i] 65 [in_i] [facility] ([facility]) 5'5" Oxygen saturation in Arterial blood by Pulse oximetry 922 % 922 % [facility] ([facility]) Heart rate 80 /min 80 /min [facility] ([facility]) Diastolic blood pressure 80 mm[Hg] 80 mm[Hg] [facility] ([facility]) Systolic blood pressure 124 mm[Hg] 124 mm[Hg] [facility] ([facility]) Oxygen saturation in Arterial blood by Pulse oximetry 95 % 95 % [facility] Body weight 215.00 [lb_av] 215.00 [lb_av] [facility]) Respiratory rate 20 /min 20 /min [facility] ( [facility]) 2L O2 via NC, unlabored and easy respira tions Heart rate 74 /min 74 /min [facility] ([facility]) Diastolic blood pressure 70 mm[Hg] 70 mm[Hg] [facility] ([facility]) Systolic blood pressure 117 mm[Hg] 117 mm[Hg] [facility] ([facility]) Oxygen saturation in Arterial blood by Pulse oximetry 92 % 92 % [facility] ([facility]) Respiratory rate 22 /min 22 /min [facility] ( [facility]) with O2, 2L via nasal cannula Body temperature 98.8 [degF] 98.8 [degF] [facility] ([facility]) Heart rate 78 /min 78 /min [facility] ([facility]) Diastolic blood pressure 60 mm[Hg] 60 mm[Hg] [facility] ([facility]) Systolic blood pressure 110 mm[Hg] 110 mm[Hg] [facility] ([facility]) Oxygen saturation in Arterial blood by Pulse oximetry 90 % 90 % [facility] ([facility]) With O2 Body weight 208.00 [lb_av] 208.00 [lb_av] [facility] ([facility]) Diastolic blood pressure 82 mm[Hg] 82 mm[Hg] [facility] ([facility]) Systolic blood pressure 124 mm[Hg] 124 mm[Hg] [facility] ([facility]) Body weight 92.[address] [facility] ([facility]) Body mass index (BMI) [Ratio] 33.8 kg/m2 33.8 k g/m2 [facility] ([facility]) Body weight 203.00 [lb_av] 203.00 [lb_av] [facility] ([facility]) Body height 65 [in_i] 65 [in_i] [facility] ([facility]) 5'5" Oxygen saturation in Arterial blood by Pulse oximetry 903 % 903 % [facility] ([facility]) Heart rate 80 /min 80 /min [facility] ([facility]) Diastolic blood pressure 80 mm[Hg] 80 mm[Hg] [facility] ([facility]) Systolic blood pressure 130 mm[Hg] 130 mm[Hg] [facility])
[2020-06-22] MEDS ORDERED: COMBIVENT RESPIMAT 100-20MCG INHALER 4GM INH ONE (13:00)
[2020-06-22] MEDS ORDERED: methylPREDNISolone 125MG 2ML VIAL IV ONE (13:00)
[2020-06-22 13:09] LABS: ALBUMIN 3.5 GM/DL (3.2-5.2); ALT/SGPT 72 U/L (12-78); BILIRUBIN,DIRECT 0.1 MG/DL (0.0-0.2); BILIRUBIN,TOTAL 0.4 MG/DL (0.2-1.0); BLOOD UREA NITROGEN 19 MG/DL (7-18); CALCIUM LEVEL 9.4 MG/DL (8.8-10.2); CARBON DIOXIDE LEVEL 39 MEQ/L (21-32); CHLORIDE LEVEL 91 MEQ/L (98-107); CK-MB VALUE MASS 1.1 NG/ML (<3.6); CPK CREATINE PHOSPHOKINASE 47 U/L (26-192); CREATININE FOR GFR 0.89 MG/DL (0.55-1.30); GLOMERULAR FILTRATION RATE > 60.0 (>45); GLUCOSE, FASTING 331 MG/DL (70-100); MB/CK RELATIVE INDEX 2.34 (< OR =4); NT-PRO BNP 140 PG/ML (<125); POTASSIUM SERUM 3.4 MEQ/L (3.5-5.1); SODIUM LEVEL 139 MEQ/L (136-145); THYROID STIMULATING HORMONE 0.216 uIU/ML (0.358-3.740); TOTAL PROTEIN 6.7 GM/DL (6.4-8.2); TROPONIN I < 0.02 NG/ML (< 0.10)
[2020-06-22 13:24] LABS: INR 0.89; PROTHROMBIN TIME 12.2 SECONDS (12.5-14.3)
[2020-06-22 13:25] LABS: PARTIAL THROMBOPLASTIN TIME 24.5 SECONDS (24.2-38.5)
[2020-06-22 13:28] LABS: D-DIMER QUANT 387.85 ng/ml (<500)
[2020-06-22] MEDS ORDERED: POTASSIUM CHLORIDE 10 MEQ SR TABLET PO ONE (13:30)
[2020-06-22] MEDS: IPRATROPIUM 0.5MG/ALBUTEROL 2.5MG INH SOL UD 3ML (DUONEB) NEB SCH ×2 (14:00→19:25)
--- NOTE | 2020-06-22 14:11 | REP ---
INDICATION: calf pain r/o DVT. COMPARISON: May 29, 2019. TECHNIQUE: Bilateral lower extremity duplex venous ultrasound. FINDINGS: The deep veins are anechoic and fully compressible from the groin to the popliteal fossa in the left and right lower extremity. Color flow imaging is homogeneous. Spectral Doppler interrogation demonstrates intact respiratory variation in flow and normal manual augmentation of flow. There is no evidence of deep vein thrombosis. IMPRESSION: Negative bilateral in lower extremity duplex venous ultrasound. No evidence of deep vein thrombosis. <Electronically signed by Tristan Higgins > 06/22/20 [id number]
[2020-06-22] MEDS ORDERED: VANCOMYCIN HCL 1,000 MG, VIAL MATE ADAPTER 1 EACH in D5W 250 ML IV ONE (14:15)
[2020-06-22] MEDS ORDERED: PIPERACILLIN/TAZOBACTAM SOD 4.5 GM in D5W MINI-BAG PLUS 50 ML IV ONE (14:15)
[2020-06-22] MEDS ORDERED: IPRATROPIUM 0.5MG/ALBUTEROL 2.5MG INH SOL UD 3ML (DUONEB) NEB PRN (14:30)
[2020-06-22] MEDS ORDERED: ACETAMINOPHEN TAB 650MG DOSE (2X325MG) PO PRN (14:30)
[2020-06-22] MEDS ORDERED: TORS100T PO (14:39)
[2020-06-22] MEDS ORDERED: HYDR-3713 PO (14:39)
[2020-06-22] MEDS ORDERED: MAGN400T2 PO (14:39)
--- OUTSIDE RECORDS SUMMARY | 2020-06-22 14:50 | CCD ---
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 RNA Not Detected [facility] [place] This lab was ordered by [facility] and reported by [facility]. ID Date Data Source [id number] 05/28/2020 09:00:00 AM EST [facility] Name Value Range Interpretation Code Description Data Mel rce(s) Supporting Document(s) SARS coronavirus 2 RNA Not Detected [facility] [place] This lab was ordered by [facility] and reported by [facility]. ID Date Data Source [id number] 05/25/2020 10:07:00 AM EST [facility] Name Value Range Interpretation Code Description Data Mel rce(s) Supporting Document(s) SARS-CoV-2 (COVID 19) [facility] This lab was ordered by [facility] a nd reported by [facility]. ID Date Data Source [id number] 05/21/2020 10:00:00 AM EST [facility] Name Value Range Interpretation Code Description Data Mel rce(s) Supporting Document(s) SARS coronavirus 2 RNA [facility] This lab was ordered by [facility] and reported by [facility]. ID Date Data Source [id number] 05/14/2020 09:30:00 AM EST [facility] Name Value Range Interpretation Code Description Data Mel rce(s) Supporting Document(s) SARS coronavirus 2 RNA [facility] This lab was ordered by [facility] and reported by [facility]. ID Date Data Source [id number] 05/09/2020 11:59:00 AM EST [facility] Name Value Range Interpretation Code Description Data Mel rce(s) Supporting Document(s) SARS coronavirus 2 RNA [facility] This lab was ordered by [facility] and reported by [facility]. ID Date Data Source [id number] 05/09/2020 12:00:00 AM EST [facility] Name Value Range Interpretation Code Description Data Mel rce(s) Supporting Document(s) SARS-CoV2 Rapid Antigen [facility] This lab was ordered by [facility] and reported by [facility]. ID Date Data Source [id number] 05/04/2020 02:46:00 PM EST [facility] Name Value Range Interpretation Code Description Data Mel rce(s) Supporting Document(s) SARS coronavirus 2 RNA [facility] This lab was ordered by [facility] and reported by [facility]. ID Date Data Source [id number] 04/27/2020 04:34:00 PM EST [facility] Name Value Range Interpretation Code Description Data Mel rce(s) Supporting Document(s) SARS coronavirus 2 RNA [Presence] in Res piratory specimen by MOE with probe detection [facility] This lab was ordered by [facility] a nd reported by [facility]. ID Date Data Source [id number] 04/04/2020 03:27:00 PM EST [facility] ([facility]) Name Value Range Interpretation Code Description Data Mel rce(s) Supporting Document(s) Laboratory test finding (navigational concept) Laboratory test result [facility] ([facility]) ID Date Data Source [id number] 04/02/2020 04:56:00 PM EST [facility] ([facility]) Name Value Range Interpretation Code Description Data Mel rce(s) Supporting Document(s) Respiratory Panel Laboratory test result [facility] ([facility]) This respiratory PCR panel detects Influ [...] - SARS-CoV-2 (COVID19) ID Date Data Source [id number] 04/02/2020 03:21:00 PM EST [facility] ([facility]) Name Value Range Interpretation Code Description Data Mel rce(s) Supporting Document(s) Laboratory test finding (navigational concept) 0.00 ng/mL 0.00-0.08 [facility] ([facility]) ID Date Data Source [id number] 04/02/2020 03:19:00 PM EST [facility] Name Value Range Interpretation Code Description Data Mel rce(s) Supporting Document(s) Laboratory test finding (navigational concept) 36.0 % 38.0-51.0 [facility] ([facility]) Laboratory test finding (navigational concept) 258 mg/dL 70-105 [facility] ([facility]) Laboratory test finding (navigational concept) 138 meq/L 136-145 [facility] ([facility]) Laboratory test finding (navigational concept) 4.3 meq/L 3.5-5.1 [facility] ([facility]) Laboratory test finding (navigational concept) 4.3 mg/dL 4.5-5.3 [facility] ([facility]) Laboratory test finding (navigational concept) 93 meq/L 98-109 [facility] ([facility]) Laboratory test finding (navigational concept) 36.0 MM/L 23.0-27.0 [facility] ([facility]) Laboratory test finding (navigational concept) 0.6 mg/dL 0.6-1.3 [facility] ([facility]) Laboratory test finding (navigational concept) 14 mg/dL 8-26 [facility] ([facility]) ID Date Data Source [id number] 04/02/2020 03:18:00 PM EST [facility] ([facility]) Name Value Range Interpretation Code Description Data Mel rce(s) Supporting Document(s) White Blood Count 15.3 10 4.0-10.0 [facility] ([facility]) Hematocrit 37.8 % 36.0-47.0 [facility] ([facility]) Red Blood Count 4.22 10 4.00-5.40 [facility] ([facility]) Hemoglobin 10.9 g/dL 12.0-15.5 [facility] ([facility]) Red Cell Distribution Width 15.8 % 11.5-14.5 [facility] ([facility]) Mean Corpuscular Hemoglobin 25.8 pg 27.0-33.0 [facility] ([facility]) Mean Corpuscular HGB Conc 28.8 g/dL 32.0-36.5 [facility] NT ([facility]) Mean Corpuscular Volume 89.6 fl 80.0-96.0 [facility] ([facility]) Lymph % 9.3 % 24.0-44.0 [facility] [facility] Platelet Count, Automated 396 10 150-450 [facility] ([facility]) Neutrophils % 82.6 % 36.0-66.0 [facility] ([facility]) [facility] % 6.1 % 0.0-5.0 [facility] [facility] Eos % 0.9 % 0.0-3.0 [facility] [facility] Immature Granulocyte % 0.8 % 0-3.0 [facility] ([facility]) Baso % 0.3 % 0.0-1.0 [facility] [facility] Lymph # 1.4 10 1.5-5.0 [facility] [facility] Nucleated Red Blood Cell % 0.0 % 0-0 [facility] ([facility]) Neutrophils # 12.6 10 1.5-8.5 [facility] ([facility]) Baso # 0.1 10 0.0-0.2 [facility] [facility] # 0.9 10 0.0-0.8 [facility] [facility] Eos # 0.1 10 0.0-0.5 [facility] [facility]) ID Date Data Source [id number] 04/02/2020 03:18:00 PM EST [facility] ([facility]) Name Value Range Interpretation Code Description Data Mel rce(s) Supporting Document(s) Alt/SGPT 47 U/L 12-78 [facility] [facility]) Ast/Sgot 29 U/L 7-37 [facility] ([facility]) Total Protein 6.9 GM/DL 6.4-8.2 [facility]) Alkaline Phosphatase 135 U/L 45-117 [facility]) Bilirubin,Total 0.3 mg/dL 0.2-1.0 [facility] ([facility]) Bilirubin,Direct 0.1 mg/dL 0.0-0.2 [facility] ([facility]) Albumin/Globulin Ratio 1.0 1.2-2.2 [facility] ([facility]) Albumin 3.5 GM/DL 3.2-5.2 [facility]) ID Date Data Source [id number] 04/02/2020 03:18:00 PM EST [facility]) Name Value Range Interpretation Code Description Data Mel rce(s) Supporting Document(s) Natriuretic peptide.B prohormone N-Terminal [Mass/volu me] in Serum or Plasma 52 pg/mL [facility] ) Thyrotropin [Units/volume] in Serum or Plasma by Detec tion limit <= 0.05 mIU/L 0.434 uIU/ML 0.358-3.740 [facility] ([facility] ) Lactate [Mass/volume] in Serum or Plasma 3.3 mmol/L 0.4-2.0 Above upper panic limits [facility] ([facility]) Y/N query for Sepsis Lactate Rule: Y ID Date Data Source [id number] 03/14/2020 11:39:00 AM EDT [facility] ([facility]) Name Value Range Interpretation Code Description Data Mel rce(s) Supporting Document(s) Hemoglobin A1c/Hemoglobin.total in Blood 7.2 % [facility] [facility] Lab Result Notes: Pre-Diabetes 5.7 - 6.4 % Diabetes = or > 6.5% Glucose mean value [Mass/volume] in Blood Estimated fr om glycated hemoglobin 160 mg/dL 60-110 [facility] [facility] ID Date Data Source [id number] 03/14/2020 11:39:00 AM EDT [facility] ([facility]) Name Value Range Interpretation Code Description Data Mel rce(s) Supporting Document(s) Leukocytes [#/volume] in Blood by Automated count 9.4 x10*3/UL 4.1-10 .9 [facility] ([facility]) Hemoglobin [Mass/volume] in Blood 11.2 g/dL 12.0-18.0 [facility] ([facility]) NOTE: RESULT VERIFIED. Hematocrit [Volume Fraction] of Blood by Automated count 34.7 % 3 7.0-51.0 [facility] ([place] [facility] Erythrocytes [#/volume] in Blood by Automated count 4.22 x10*6/UL 4.2 0-6.30 [facility] ([facility]) MCV 82.1 fL 80.0-97.0 [facility] [facility]) MCH 26.6 pg 26.0-32.0 [facility] ([place] [facility]) MCHC 32.4 g/dL 31.0-38.0 [facility] [facility]) Erythrocyte distribution width [Ratio] by Automated count 15.3 % 11.6-13.7 [facility] ([facility]) Platelets [#/volume] in Blood by Automated count 416 x10*3/UL 140-440 [facility] ([facility]) MPV 7.2 FL 7.8-11.0 [facility] [facility]) Lymph % 17.4 % 10.0-58.5 [facility] ([place] [facility]) Mid % 5.6 % 1.7-9.3 [facility] ([place] [facility]) Neut % 77.0 % 37.0-92.0 [facility] ([place] [facility]) Lymph # 1.6 x10*3/UL 0.6-4.1 [facility] ([facility]) Neut # 7.3 x10*3/UL 2.0-7.8 [facility] ([facility]) Mid # 0.5 x10*3/UL 0.1-0.6 [facility] ([facility]) ID Date Data Source [id number] 03/14/2020 11:39:00 AM EDT [facility] ([facility]) Name Value Range Interpretation Code Description Data Mel rce(s) Supporting Document(s) Glucose [Mass/volume] in Serum or Plasma 142 mg/dL 74-99 [facility] ([facility]) 100-125 mg/dL PRE-DIABETES/FASTING >126 mg/dL DIABETES/FASTING Creatinine 0.8 mg/dL 0.6-1.3 [facility] ([facility]) Urea nitrogen [Mass/volume] in Serum or Plasma 13 mg/dL 7-18 [facility] ([facility]) Sodium [Moles/volume] in Serum or Plasma 142 meq/L 136-145 [facility] ([facility]) Chloride [Moles/volume] in Serum or Plasma 100 meq/L 98-107 [facility] ([facility]) Potassium [Moles/volume] in Serum or Plasma 3.4 meq/L 3.5-5.1 [facility] ([facility]) NOTE: RESULT VERIFIED. Glomerular filtration rate/1.73 sq M pre dicted among non-blacks [Volume Rate/Area] in Serum or Plasma by Creatinine-based formula (MDRD) Laboratory test result [facility] ([facility] ) Carbon dioxide, total [Moles/volume] in Serum or Plasma 34 meq/L 21 -32 [facility] ([facility]) Calcium [Mass/volume] in Serum or Plasma 8.7 mg/dL 8.5-10.1 [facility] ([facility]) Glomerular filtration rate/1.73 sq M pre dicted among blacks [Volume Rate/Area] in Serum or Plasma by Creatinine-based formula (MDRD) Laboratory test result [facility] ([facility]) <content>CHRONIC KIDNEY DISEASE STAGING PER NKF</content>
<content></content>
<content>STAGE I & II GFR >= 60 NORMAL TO MILDLY DECREASED</content>
<content>STAGE III GFR 30-59 MODERATELY DECREASED</content>
<content>STAGE IV GFR 15-29 SEVERELY DECREASED</content>
<content>STAGE V GFR <15 VERY LITTLE GFR LEFT</content>
<content>ESRD GFR <15 ON BOILERMAK[employer] PIPE FITTER</content>
<content></content> ID Date Data Source [id number] 03/14/2020 11:39:00 AM EDT [facility] ([facility]) Name Value Range Interpretation Code Description Data Mel rce(s) Supporting Document(s) Hemoglobin A1c/Hemoglobin.total in Blood Laboratory test result [facility] ([facility]) ID Date Data Source [id number] 02/27/2020 04:35:00 PM EDT [facility] ([facility] Name Value Range Interpretation Code Description Data Mel rce(s) Supporting Document(s) Calcium [Mass/volume] in Serum or Plasma 8.7 [facility] ([facility]) Sodium 141 [facility] Carbon dioxide, total [Moles/volume] in Serum or Plasma 38 [facility] ([facility]) Glucose 127 70-100 [facility] Potassium [Moles/volume] in Serum or Plasma 4.3 [facility] ([facility]) Chloride [Moles/volume] in Serum or Plasma 98 [facility] ([facility]) Blood Urea Nitrogen 13 7-18 [facility] ([facility]) Creatinine 0.62 0.55-1.30 [facility] ([facility]) Glomerular filtration rate/1.73 sq M.pre dicted [Volume Rate/Area] in Serum or Plasma by Creatinine-based formula (MDRD) Laboratory test result [facility] ([facility]) ID Date Data Source [id number] 02/14/2020 10:19:00 PM EDT [facility] ([facility]) Name Value Range Interpretation Code Description Data Mel rce(s) Supporting Document(s) MB/CK Relative Index 1.69 [facility] ([facility]) <content>DIAGNOSIS CRITERIA</content>
<content>MMB ng/ml Relative Index (RI)</content>
<content>NON-AMI < or = 5 N/A</content>
<content>MILTON ZONE > 5 < or = 4</content>
<content>AMI > 5 > 4</content>
<content></content> CK-MB Value Mass Laboratory test result [facility] ([facility]) CPK Creatine Phosphokinase 59 U/L 26-192 [facility] ([facility]) Troponin I Laboratory test result [facility] ([facility]) <content>Troponin I Reference Interval f or Siemens [place] LOCI:</content>
<content></content>
<content>99th Percentile= 0.00-0.045 ng/ml</content>
<content></content>
<content>Risk Stratification:</content>
<content><= 0.10 ng/ml Decreased Risk for Adverse Clinical</content>
<content>Events.</content>
<content>0.10-1.50 ng/ml Increased Risk for Adverse Clinical</content>
<content>Events. Evaluation of additional</content>
<content>criterion and/or repeat testing in 2-6</content>
<content>hours is suggested to rule out myocardial</content>
<content>damage.</content>
<content>>= 1.50 ng/ml Indicative of Myocardial Injury.</content>
<content></content> ID Date Data Source [id number] 02/14/2020 07:38:00 PM EDT [facility] ([facility]) Name Value Range Interpretation Code Description Data Mel rce(s) Supporting Document(s) Lactate [Mass/volume] in Serum or Plasma 1.9 mmol/L 0.4-2.0 [facility] ([facility]) Y/N query for Sepsis Lactate Rule: Y ID Date Data Source [id number] 02/14/2020 07:38:00 PM EDT [facility] ([facility]) Name Value Range Interpretation Code Description Data Mel rce(s) Supporting Document(s) Red Blood Count 4.03 10 4.00-5.40 [facility]) White Blood Count 11.8 10 4.0-10.0 [facility]) Hematocrit 34.6 % 36.0-47.0 [facility]) Mean Corpuscular Hemoglobin 25.8 pg 27.0-33.0 [facility] ([facility]) Hemoglobin 10.4 g/dL 12.0-15.5 [facility] [facility]) Mean Corpuscular Volume 85.9 fl 80.0-96.0 [facility] ([facility]) Platelet Count, Automated 347 10 150-450 [facility] ([facility]) Mean Corpuscular HGB Conc 30.1 g/dL 32.0-36.5 [facility] ([facility]) Red Cell Distribution Width 15.8 % 11.5-14.5 [facility] ([facility]) [facility] % 6.8 % 0.0-5.0 [facility] [facility]) Neutrophils % 75.2 % 36.0-66.0 [facility] ([facility]) Lymph % 16.1 % 24.0-44.0 [facility] [facility]) Immature Granulocyte % 0.7 % 0-3.0 [facility] ([facility]) Baso % 0.4 % 0.0-1.0 [facility] [facility]) Eos % 0.8 % 0.0-3.0 [facility] [facility]) [facility] # 0.8 10 0.0-0.8 [facility] [facility]) Lymph # 1.9 10 1.5-5.0 [facility] [facility]) Nucleated Red Blood Cell % 0.0 % 0-0 [facility] ([facility]) Neutrophils # 8.9 10 1.5-8.5 [facility] ([facility]) Baso # 0.1 10 0.0-0.2 [facility] [facility]) Eos # 0.1 10 0.0-0.5 [facility] [facility]) ID Date Data Source [id number] 02/14/2020 07:38:00 PM EDT [facility] ([facility]) Name Value Range Interpretation Code Description Data Mel rce(s) Supporting Document(s) CPK Creatine Phosphokinase 55 U/L 26-192 [facility]) Troponin I Laboratory test result [facility] <content>Troponin I Reference Interval f or Siemens [place] LOCI:</content>
<content></content>
<content>99th Percentile= 0.00-0.045 ng/ml</content>
<content></content>
<content>Risk Stratification:</content>
<content><= 0.10 ng/ml Decreased Risk for Adverse Clinical</content>
<content>Events.</content>
<content>0.10-1.50 ng/ml Increased Risk for Adverse Clinical</content>
<content>Events. Evaluation of additional</content>
<content>criterion and/or repeat testing in 2-6</content>
<content>hours is suggested to rule out myocardial</content>
<content>damage.</content>
<content>>= 1.50 ng/ml Indicative of Myocardial Injury.</content>
<content></content> MB/CK Relative Index 1.82 [facility]) <content>DIAGNOSIS CRITERIA</content>
<content>MMB ng/ml Relative Index (RI)</content>
<content>NON-AMI < or = 5 N/A</content>
<content>MILTON ZONE > 5 < or = 4</content>
<content>AMI > 5 > 4</content>
<content></content> CK-MB Value Mass Laboratory test result [facility]) ID Date Data Source [id number] 02/14/2020 07:38:00 PM EDT [facility]) Name Value Range Interpretation Code Description Data Mel rce(s) Supporting Document(s) Venous Partial Pressure Co2 48.9 mmHg 38.0-50.0 [facility] ([facility]) Venous PH 7.411 units 7.330-7.430 [facility] ([facility]) Venous Hco3 30.4 meq/L 23.0-27.0 [facility] ([facility]) Venous Total Co2 31.9 meq/L 24.0-28.0 [facility] ([facility]) Venous Partial Pressure O2 110.2 mmHg 30.0-50.0 [facility] ([facility]) Venous Base Excess 4.9 [facility] ([facility]) Venous Standard Hco3 28.9 meq/L [facility] ( [facility]) Venous O2 Saturation 96.4 % 60.0-80.0 [facility] ([facility]) ID Date Data Source [id number] 02/14/2020 07:38:00 PM EDT [facility] ([facility]) Name Value Range Interpretation Code Description Data Mel rce(s) Supporting Document(s) Ast/Sgot 15 U/L 7-37 [facility] ([place] [facility]) Alt/SGPT 31 U/L 12-78 [facility] ([facility]) Bilirubin,Total 0.3 mg/dL 0.2-1.0 [facility] ([facility]) Alkaline Phosphatase 126 U/L 45-117 [facility] ([facility]) Albumin 3.2 GM/DL 3.2-5.2 [facility] ([facility]) Bilirubin,Direct Laboratory test result 0.0-0.2 [facility] ([facility]) Total Protein 6.4 GM/DL 6.4-8.2 [facility] ([facility]) Albumin/Globulin Ratio 1.0 1.2-2.2 [facility] ([facility]) ID Date Data Source [id number] 02/14/2020 07:38:00 PM EDT [facility] ([facility]) Name Value Range Interpretation Code Description Data Mel rce(s) Supporting Document(s) Glucose, Fasting 181 mg/dL 70-100 [facility] ([facility]) Glomerular Filtration Rate Laboratory test result [facility] ([facility]) <content>Units are mL/min/1.73 m2</content>
<content></content>
<content>Chronic Kidney Disease Staging per NKF:</content>
<content></content>
<content>Stage I & II GFR >=60 Normal to Mildly Decreased</content>
<content>Stage III GFR 30- 59 Moderately Decreased</content>
<content>Stage IV GFR 15-29 Severely Decreased</content>
<content>Stage V GFR <15 Very Little GFR Left</content>
<content>ESRD GFR <15 on BOILERMAKER PIPE FITTER</content>
<content></content> Sodium Level 142 meq/L 136-145 [facility] ([facility]) Blood Urea Nitrogen 12 mg/dL 7-18 [facility] ([facility]) Creatinine For GFR 0.66 mg/dL 0.55-1.30 [facility] ([facility]) Potassium Serum 3.8 meq/L 3.5-5.1 [facility] ([facility]) Chloride Level 103 meq/L 98-107 [facility] ([facility]) Carbon Dioxide Level 32 meq/L 21-32 [facility] ([facility]) Anion Gap 7 meq/L 8-16 [facility] [facility]) Calcium Level 8.3 mg/dL 8.8-10.2 [facility] ([facility]) ID Date Data Source [id number] 02/14/2020 07:38:00 PM EDT [facility] ([facility]) Name Value Range Interpretation Code Description Data Mel rce(s) Supporting Document(s) Natriuretic peptide.B prohormone N-Terminal [Mass/volu me] in Serum or Plasma 50 pg/mL [facility] ([facility] ) Thyrotropin [Units/volume] in Serum or Plasma by Detec tion limit <= 0.05 mIU/L 0.143 uIU/ML 0.358-3.740 [facility] ([facility] ) ID Date Data Source [id number] 02/14/2020 07:38:00 PM EDT [facility] Name Value Range Interpretation Code Description Data Mel rce(s) Supporting Document(s) Blood Culture Laboratory test result [facility] ([facility]) No growth after 72 hours . All specimens observed for 5 days. Results final at that time. No growth after 48 hours . All specimens observed for 5 days. Results final at that time. No growth after 24 hours . All specimens observed for 5 days. Results final at that time. NO GROWTH AFTER 5 DAYS ID Date Data Source [id number] 02/14/2020 12:51:00 PM EDT [facility] ([facility] [place]) Name Value Range Interpretation Code Description Data Mel rce(s) Supporting Document(s) Thyroid Stimulating Hormone 0.143 [facility] ([facility]) ID Date Data Source [id number] 02/14/2020 12:51:00 PM EDT [facility] ([facility] [place]) Name Value Range Interpretation Code Description Data Mel rce(s) Supporting Document(s) Galectin 3 [Mass/volume] in Serum or Plasma 50 [facility] ([facility]) ID Date Data Source [id number] 02/14/2020 12:51:00 PM EDT [facility] ([facility] [place]) Name Value Range Interpretation Code Description Data Mel rce(s) Supporting Document(s) Troponin Laboratory test result [facility] ([facility]) ID Date Data Source [id number] 02/14/2020 12:51:00 PM EDT [facility] ([facility] [place]) Name Value Range Interpretation Code Description Data Mel rce(s) Supporting Document(s) Alanine aminotransferase [Enzymatic activity/volume] in Serum or Pl asma 31 [facility] ([facility]) Calcium [Mass/volume] in Serum or Plasma 8.3 [facility] ([facility]) Albumin [Mass/volume] in Serum or Plasma 3.2 [facility] ([facility]) Carbon dioxide, total [Moles/volume] in Serum or Plasma 32 [facility] ([facility]) Chloride [Moles/volume] in Serum or Plasma 103 [facility] ([facility]) Protein [Mass/volume] in Serum or Plasma 6.4 [facility] ([facility]) Potassium [Moles/volume] in Serum or Plasma 3.8 [facility] ([facility]) Alkaline phosphatase [Enzymatic activity/volume] in Serum or Plasma 1 26 [facility] ([facility]) Aspartate aminotransferase [Enzymatic activity/volume] in Serum or Plasma 15 [facility] ([facility]) Sodium 142 [facility] Urea nitrogen [Mass/volume] in Serum or Plasma 12 [facility] ([facility]) Creatinine For GFR 0.66 [facility] ([facility] Glucose 181 70-100 [facility] ID Date Data Source [id number] 02/14/2020 12:51:00 PM EDT [facility] ([facility]) Name Value Range Interpretation Code Description Data Mel rce(s) Supporting Document(s) White Blood Count 11.8 4.3-10.9 [facility] ([facility] Red Blood Count 4.03 4.70-6.20 [facility] ([facility] Platelets 347 130-400 [facility] Hemoglobin 10.4 13.0-17.0 [facility] ([facility]) Hematocrit 34.6 39.0-50.0 [facility] ([facility]) ID Date Data Source [id number] 02/01/2020 03:17:00 PM EDT [facility] ([facility]) Name Value Range Interpretation Code Description Data Mel rce(s) Supporting Document(s) Natriuretic peptide B [Mass/volume] in Serum or Plasma 22.6 pg/mL 0.0 -100.0 [facility] ([facility]) ID Date Data Source [id number] 02/01/2020 03:17:00 PM EDT [facility] ([facility]) Name Value Range Interpretation Code Description Data Mel rce(s) Supporting Document(s) Glucose [Mass/volume] in Serum or Plasma 326 mg/dL 74-99 [facility] ([facility]) 100-125 mg/dL PRE-DIABETES/FASTING >126 mg/dL DIABETES/FASTING Creatinine 0.9 mg/dL 0.6-1.3 [facility] [facility]) Sodium [Moles/volume] in Serum or Plasma 139 meq/L 136-145 [facility] ([facility]) Urea nitrogen [Mass/volume] in Serum or Plasma 22 mg/dL 7-18 [facility] ([facility]) Chloride [Moles/volume] in Serum or Plasma 99 meq/L 98-107 [facility] ([facility]) Carbon dioxide, total [Moles/volume] in Serum or Plasma 29 meq/L 21 -32 [facility] ([facility]) Potassium [Moles/volume] in Serum or Plasma 4.2 meq/L 3.5-5.1 [facility] ([facility] Glomerular filtration rate/1.73 sq M pre dicted among blacks [Volume Rate/Area] in Serum or Plasma by Creatinine-based formula (MDRD) Laboratory test result [facility] [facility] <content>CHRONIC KIDNEY DISEASE STAGING PER NKF</content>
<content></content>
<content>STAGE I & II GFR >= 60 NORMAL TO MILDLY DECREASED</content>
<content>STAGE III GFR 30-59 MODERATELY DECREASED</content>
<content>STAGE IV GFR 15-29 SEVERELY DECREASED</content>
<content>STAGE V GFR <15 VERY LITTLE GFR LEFT</content>
<content>ESRD GFR <15 ON BOILERMAKER PIPE FITTER</content>
<content></content> Glomerular filtration rate/1.73 sq M pre dicted among non-blacks [Volume Rate/Area] in Serum or Plasma by Creatinine-based formula (MDRD) Laboratory test result [facility] [facility] Calcium [Mass/volume] in Serum or Plasma 8.7 mg/dL 8.5-10.1 [facility] ([facility]) ID Date Data Source [id number] 01/29/2020 07:13:00 PM EDT [facility]) Name Value Range Interpretation Code Description Data Mel rce(s) Supporting Document(s) ABG Partial Pressure Co2 48.6 mmHg 35.0-45.0 MED[facility] T ([facility]) ABG pH (Arterial) 7.418 units 7.350-7.450 [facility] ( [facility]) ABG Hco3 30.7 meq/L 22.0-26.0 [facility] ([facility]) ABG Partial Pressure O2 72.5 mmHg 75.0-100.0 [facility] T ([facility]) ABG Total Co2 32.2 meq/L 23.0-31.0 [facility] ([facility]) ABG Base Excess 5.3 [facility] ([facility]) ABG O2 Saturation 92.7 % 95.0-99.0 [facility] ([facility]) ABG Standard Hco3 29.2 meq/L 22.0-26.0 [facility] ([facility]) ID Date Data Source [id number] 01/29/2020 05:37:00 PM EDT [facility] ([facility]) Name Value Range Interpretation Code Description Data Mel rce(s) Supporting Document(s) Blood Culture Laboratory test result [facility] ([facility]) No growth after 72 hours . All specimens observed for 5 days. Results final at that time. No growth after 48 hours . All specimens observed for 5 days. Results final at that time. No growth after 24 hours . All specimens observed for 5 days. Results final at that time. NO GROWTH AFTER 5 DAYS ID Date Data Source [id number] 01/29/2020 05:27:00 PM EDT [facility] ([facility]) Name Value Range Interpretation Code Description Data Mel rce(s) Supporting Document(s) Alkaline Phosphatase 163 U/L 45-117 [facility] ([facility]) Ast/Sgot 18 U/L 7-37 [facility] ([place] [facility]) Alt/SGPT 32 U/L 12-78 [facility] ([place] [facility]) Bilirubin,Direct Laboratory test result 0.0-0.2 [facility] ([facility]) Total Protein 6.4 GM/DL 6.4-8.2 [facility] ([facility]) Bilirubin,Total 0.2 mg/dL 0.2-1.0 [facility] ([facility]) Albumin/Globulin Ratio 1.0 1.2-2.2 [facility] ([facility]) Albumin 3.2 GM/DL 3.2-5.2 [facility] ([place] [facility]) ID Date Data Source [id number] 01/29/2020 05:27:00 PM EDT [facility]) Name Value Range Interpretation Code Description Data Mel rce(s) Supporting Document(s) Inr 0.91 [facility] [facility]) THERAPUTIC HUMAN INR VALUES INDICATIONS NORMAL RANGES PROPHYLAXIS/TREATMENT OF: VENOUS THROMBOSIS 2.0-3.0 PULMONARY EMBOLISM 2.0-3.0 PREVENTION OF SYSTEMIC EMBOLISM FROM: TISSUE HEART VALVES 2.0-3.0 ACUTE MYOCARDIAL INFARCTION 2.0-3.0 VALVULAR HEART DISEASE 2.0-3.0 ATRIAL FIBRILLATION 2.0-3.0 MECHANICAL VALVES(HIGH RISK) 2.5-3.5 RECURRENT MYOCARDIAL INFARCTION 2.5-3.5 Prothrombin Time 12.4 s 11.8-14.0 [facility] ([facility]) ID Date Data Source [id number] 01/29/2020 05:27:00 PM EDT [facility] ([facility]) Name Value Range Interpretation Code Description Data [facility](s) Supporting Document(s) CK-MB Value Mass 1.5 ng/mL [facility] ([facility]) CPK Creatine Phosphokinase 55 U/L 26-192 [facility] ([facility]) MB/CK Relative Index 2.73 [facility] ([facility]) <content>DIAGNOSIS CRITERIA</content>
<content>MMB ng/ml Relative Index (RI)</content>
<content>NON-AMI < or = 5 N/A</content>
<content>MILTON ZONE > 5 < or = 4</content>
<content>AMI > 5 > 4</content>
<content></content> Troponin I Laboratory test result [facility] ([facility]) <content>Troponin I Reference Interval f or Siemens [place] LOCI:</content>
<content></content>
<content>99th Percentile= 0.00-0.045 ng/ml</content>
<content></content>
<content>Risk Stratification:</content>
<content><= 0.10 ng/ml Decreased Risk for Adverse Clinical</content>
<content>Events.</content>
<content>0.10-1.50 ng/ml Increased Risk for Adverse Clinical</content>
<content>Events. Evaluation of additional</content>
<content>criterion and/or repeat testing in 2-6</content>
<content>hours is suggested to rule out myocardial</content>
<content>damage.</content>
<content>>= 1.50 ng/ml Indicative of Myocardial Injury.</content>
<content></content> ID Date Data Source [id number] 01/29/2020 05:27:00 PM EDT [facility] ([facility]) Name Value Range Interpretation Code Description Data Mel rce(s) Supporting Document(s) Blood Urea Nitrogen 15 mg/dL 7-18 [facility] ([facility]) Creatinine For GFR 0.81 mg/dL 0.55-1.30 [facility] ([facility]) Glucose, Fasting 264 mg/dL 70-100 [facility] ([facility]) Sodium Level 142 meq/L 136-145 [facility] ([facility]) Glomerular Filtration Rate Laboratory test result [facility] ([place] [facility] <content>Units are mL/min/1.73 m2</content>
<content></content>
<content>Chronic Kidney Disease Staging per NKF:</content>
<content></content>
<content>Stage I & II GFR >=60 Normal to Mildly Decreased</content>
<content>Stage III GFR 30- 59 Moderately Decreased</content>
<content>Stage IV GFR 15-29 Severely Decreased</content>
<content>Stage V GFR <15 Very Little GFR Left</content>
<content>ESRD GFR <15 on BOILERMAKER PIPE FITTER</content>
<content></content> Potassium Serum 4.2 meq/L 3.5-5.1 [facility] ([facility]) Carbon Dioxide Level 31 meq/L 21-32 [facility] ([facility]) Anion Gap 7 meq/L 8-16 [facility] [facility] Chloride Level 104 meq/L 98-107 [facility] ([facility]) Calcium Level 8.1 mg/dL 8.8-10.2 [facility] ([facility]) ID Date Data Source [id number] 01/29/2020 05:27:00 PM EDT [facility] ([facility]) Name Value Range Interpretation Code Description Data Mel rce(s) Supporting Document(s) Natriuretic peptide.B prohormone N-Terminal [Mass/volu me] in Serum or Plasma 73 pg/mL [facility] ([facility] ) Thyrotropin [Units/volume] in Serum or Plasma by Detec tion limit <= 0.05 mIU/L 0.292 uIU/ML 0.358-3.740 [facility] ([facility] ) Thyroxine (T4) Ab [Units/volume] in Serum 7.2 ug/dL 4.5-12.0 [facility] ([facility]) Lactate [Mass/volume] in Serum or Plasma 2.5 mmol/L 0.4-2.0 Above upper panic limits [facility] ([facility]) Y/N query for Sepsis Lactate Rule: Y ID Date Data Source [id number] 01/29/2020 05:27:00 PM EDT [facility] ([facility]) Name Value Range Interpretation Code Description Data [facility] rce(s) Supporting Document(s) Blood Culture Laboratory test result [facility] [facility] No growth after 72 hours . All specimens observed for 5 days. Results final at that time. No growth after 48 hours . All specimens observed for 5 days. Results final at that time. No growth after 24 hours . All specimens observed for 5 days. Results final at that time. NO GROWTH AFTER 5 DAYS ID Date Data Source [id number] 01/29/2020 05:27:00 PM EDT [facility] ([facility]) Name Value Range Interpretation Code Description Data Mel rce(s) Supporting Document(s) White Blood Count 12.8 10 4.0-10.0 [facility]) Red Blood Count 3.81 10 4.00-5.40 [facility] ([facility]) Hemoglobin 9.7 g/dL 12.0-15.5 [facility]) Hematocrit 33.1 % 36.0-47.0 [facility] ([place] [facility]) Mean Corpuscular Volume 86.9 fl 80.0-96.0 [facility] ([facility]) Mean Corpuscular Hemoglobin 25.5 pg 27.0-33.0 [facility] ([facility]) Platelet Count, Automated 378 10 150-450 [facility] ([facility]) Mean Corpuscular HGB Conc 29.3 g/dL 32.0-36.5 [facility] ([facility]) Red Cell Distribution Width 15.8 % 11.5-14.5 [facility] ([facility]) Neutrophils % 81.3 % 36.0-66.0 [facility] ([facility]) [facility] [place] [facility] % 5.2 % 0.0-5.0 [facility] ([place] [facility]) Lymph % 11.6 % 24.0-44.0 [facility] [facility]) Nucleated Red Blood Cell % 0.0 % 0-0 [facility] ([facility]) Eos % 0.5 % 0.0-3.0 [facility] [facility]) Immature Granulocyte % 1.0 % 0-3.0 [facility] ([facility]) Baso % 0.4 % 0.0-1.0 [facility] [facility]) Neutrophils # 10.4 10 1.5-8.5 [facility] ([facility]) [facility] [place] [facility] # 0.7 10 0.0-0.8 [facility] ([place] [facility]) Lymph # 1.5 10 1.5-5.0 [facility] [facility]) Baso # 0.1 10 0.0-0.2 [facility] [facility]) Eos # 0.1 10 0.0-0.5 [facility] [facility]) ID Date Data Source [id number] 01/29/2020 05:25:00 PM EDT [facility] ([facility]) Name Value Range Interpretation Code Description Data Mel rce(s) Supporting Document(s) ABG pH (Arterial) 7.407 units 7.350-7.450 [facility] ( [facility]) ABG Partial Pressure O2 149.8 mmHg 75.0-100.0 MEDE NT ([facility]) ABG Hco3 28.7 meq/L 22.0-26.0 [facility] ([place] [facility]) ABG Total Co2 30.2 meq/L 23.0-31.0 [facility] ([facility]) ABG Partial Pressure Co2 46.7 mmHg 35.0-45.0 [facility] T ([facility]) ABG O2 Saturation 97.2 % 95.0-99.0 [facility] ([facility]) ABG Base Excess 3.5 [facility] ([facility]) ABG Standard Hco3 27.6 meq/L 22.0-26.0 [facility] ([facility]) ID Date Data Source [id number] 12/15/2019 11:21:00 AM EDT [facility] ([facility]) Name Value Range Interpretation Code Description Data Mel rce(s) Supporting Document(s) Erythrocytes [#/volume] in Blood by Automated count 4.00 x10*6/UL 4.2 0-6.30 [facility] ([facility]) Leukocytes [#/volume] in Blood by Automated count 9.5 x10*3/UL 4.1-10 .9 [facility] ([facility]) Hemoglobin [Mass/volume] in Blood 10.4 g/dL 12.0-18.0 [facility] NOTE: RESULT VERIFIED. Hematocrit [Volume Fraction] of Blood by Automated count 32.3 % 3 7.0-51.0 [facility] ([facility]) MCV 80.7 fL 80.0-97.0 [facility] [facility]) Erythrocyte distribution width [Ratio] by Automated count 14.3 % 11.6-13.7 [facility] ([facility]) MCHC 32.4 g/dL 31.0-38.0 [facility] [facility] MCH 26.1 pg 26.0-32.0 [facility] [facility] Mid % 3.6 % 1.7-9.3 [facility] ([place] [facility]) Platelets [#/volume] in Blood by Automated count 352 x10*3/UL 140-440 [facility] ([facility]) Lymph % 12.7 % 10.0-58.5 [facility] ([place] [facility] MPV 7.2 FL 7.8-11.0 [facility] [facility] Neut % 83.7 % 37.0-92.0 [facility] [facility] Lymph # 1.2 x10*3/UL 0.6-4.1 [facility] ([facility]) Mid # 0.4 x10*3/UL 0.1-0.6 [facility] ([facility]) Neut # 7.9 x10*3/UL 2.0-7.8 [facility] ([facility]) ID Date Data Source [id number] 12/10/2019 12:41:00 PM EDT [facility] ([facility]) Name Value Range Interpretation Code Description Data Mel rce(s) Supporting Document(s) Laboratory test finding (navigational concept) 62.0 MMHG 3 5.0-45.0 Above upper panic limits [facility] ([facility]) Laboratory test finding (navigational concept) 7.372 units 7.350-7.45 0 [facility] ([facility]) Laboratory test finding (navigational concept) 73.0 MMHG 80-105 [facility] ([facility]) Laboratory test finding (navigational concept) 36.0 mmol/L 22.0-26.0 [facility] ([facility]) Laboratory test finding (navigational concept) 38.0 mmol/L 23.0-27.0 [facility] ([facility]) Laboratory test finding (navigational concept) 93 % 95-98 [facility] ([facility]) Laboratory test finding (navigational concept) 11.0 mmol/L [facility] ([facility]) ID Date Data Source [id number] 12/10/2019 11:21:00 AM EDT [facility] ([facility]) Name Value Range Interpretation Code Description Data Mel rce(s) Supporting Document(s) Prothrombin Time 12.0 s 11.8-14.0 [facility] ([facility]) Inr 0.91 [facility] ([place] [facility]) THERAPUTIC HUMAN INR VALUES INDICATIONS NORMAL RANGES PROPHYLAXIS/TREATMENT OF: VENOUS THROMBOSIS 2.0-3.0 PULMONARY EMBOLISM 2.0-3.0 PREVENTION OF SYSTEMIC EMBOLISM FROM: TISSUE HEART VALVES 2.0-3.0 ACUTE MYOCARDIAL INFARCTION 2.0-3.0 VALVULAR HEART DISEASE 2.0-3.0 ATRIAL FIBRILLATION 2.0-3.0 MECHANICAL VALVES(HIGH RISK) 2.5-3.5 RECURRENT MYOCARDIAL INFARCTION 2.5-3.5 ID Date Data Source [id number] 12/10/2019 11:21:00 AM EDT [facility] ([facility]) Name Value Range Interpretation Code Description Data Mel rce(s) Supporting Document(s) Red Blood Count 4.56 10 4.00-5.40 [facility] ([facility]) White Blood Count 17.1 10 4.0-10.0 [facility] ([facility]) Hematocrit 39.8 % 36.0-47.0 [facility] [facility] Hemoglobin 11.8 g/dL 12.0-15.5 [facility] ([facility]) Mean Corpuscular Volume 87.3 fl 80.0-96.0 [facility] ([facility]) Red Cell Distribution Width 15.7 % 11.5-14.5 [place] [facility] ([facility]) Mean Corpuscular Hemoglobin 25.9 pg 27.0-33.0 [place] [facility] ([facility]) Mean Corpuscular HGB Conc 29.6 g/dL 32.0-36.5 [facility] ([facility]) Neutrophils % 79.2 % 36.0-66.0 [facility] ([facility]) Platelet Count, Automated 376 10 150-450 [facility] ([facility]) Lymph % 11.5 % 24.0-44.0 [facility] [facility]) Eos % 1.1 % 0.0-3.0 [facility] [facility]) Baso % 0.2 % 0.0-1.0 [facility] ([place] [facility]) Immature Granulocyte % 1.6 % 0-3.0 [facility] ([facility]) [facility] [place] [facility] % 6.4 % 0.0-5.0 [facility] ([place] [facility]) Lymph # 2.0 10 1.5-5.0 [facility] ([place] [facility]) Nucleated Red Blood Cell % 0.0 % 0-0 [facility] ([facility]) Neutrophils # 13.5 10 1.5-8.5 [facility] ([facility]) Eos # 0.2 10 0.0-0.5 [facility] ([place] [facility]) [facility] # 1.1 10 0.0-0.8 [facility] ([place] [facility]) Baso # 0.0 10 0.0-0.2 [facility] ([place] [facility]) ID Date Data Source [id number] 12/10/2019 11:21:00 AM EDT [facility] ([facility]) Name Value Range Interpretation Code Description Data Mel rce(s) Supporting Document(s) Natriuretic peptide.B prohormone N-Terminal [Mass/volu me] in Serum or Plasma 234 pg/mL [facility] ([facility] ) ID Date Data Source [id number] 12/10/2019 11:21:00 AM EDT [facility] ([facility]) Name Value Range Interpretation Code Description Data Mel rce(s) Supporting Document(s) Glucose, Fasting 144 mg/dL 70-100 [facility] ([facility]) Blood Urea Nitrogen 18 mg/dL 7-18 [facility] ([facility]) Glomerular Filtration Rate Laboratory test result [facility] ([facility]) <content>Units are mL/min/1.73 m2</content>
<content></content>
<content>Chronic Kidney Disease Staging per NKF:</content>
<content></content>
<content>Stage I & II GFR >=60 Normal to Mildly Decreased</content>
<content>Stage III GFR 30- 59 Moderately Decreased</content>
<content>Stage IV GFR 15-29 Severely Decreased</content>
<content>Stage V GFR <15 Very Little GFR Left</content>
<content>ESRD GFR <15 on BOILERMAKER PIPE FITTER</content>
<content></content> Creatinine For GFR 0.73 mg/dL 0.55-1.30 [facility] ([facility]) Chloride Level 101 meq/L 98-107 [facility] ([facility]) Sodium Level 143 meq/L 136-145 [facility] ([facility]) Potassium Serum 4.1 meq/L 3.5-5.1 [facility] ([facility]) Anion Gap 3 meq/L 8-16 [facility] [facility]) Calcium Level 8.9 mg/dL 8.8-10.2 [facility] ([facility]) Carbon Dioxide Level 39 meq/L 21-32 [facility] ([facility]) ID Date Data Source [id number] 12/10/2019 11:21:00 AM EDT [facility] ([facility]) Name Value Range Interpretation Code Description Data Mel rce(s) Supporting Document(s) Alt/SGPT 31 U/L 12-78 [facility] ([place] [facility]) Ast/Sgot 15 U/L 7-37 [facility] ([place] [facility]) Bilirubin,Direct 0.1 mg/dL 0.0-0.2 [facility] ([facility]) Alkaline Phosphatase 110 U/L 45-117 [facility] ([facility]) Bilirubin,Total 0.4 mg/dL 0.2-1.0 [facility] ([facility]) Total Protein 6.7 GM/DL 6.4-8.2 [facility] ([facility]) Albumin 3.3 GM/DL 3.2-5.2 [facility] ([place] [facility]) Albumin/Globulin Ratio 1.0 1.2-2.2 [facility] ([facility]) ID Date Data Source [id number] 12/10/2019 11:21:00 AM EDT [facility] ([facility]) Name Value Range Interpretation Code Description Data Mel rce(s) Supporting Document(s) CPK Creatine Phosphokinase 59 U/L 26-192 [facility] ([facility]) MB/CK Relative Index 3.05 [facility] ([facility]) <content>DIAGNOSIS CRITERIA</content>
<content>MMB ng/ml Relative Index (RI)</content>
<content>NON-AMI < or = 5 N/A</content>
<content>MILTON ZONE > 5 < or = 4</content>
<content>AMI > 5 > 4</content>
<content></content> CK-MB Value Mass 1.8 ng/mL [facility] Troponin I Laboratory test result [facility]) <content>Troponin I Reference Interval f or Siemens [place] LOCI:</content>
<content></content>
<content>99th Percentile= 0.00-0.045 ng/ml</content>
<content></content>
<content>Risk Stratification:</content>
<content><= 0.10 ng/ml Decreased Risk for Adverse Clinical</content>
<content>Events.</content>
<content>0.10-1.50 ng/ml Increased Risk for Adverse Clinical</content>
<content>Events. Evaluation of additional</content>
<content>criterion and/or repeat testing in 2-6</content>
<content>hours is suggested to rule out myocardial</content>
<content>damage.</content>
<content>>= 1.50 ng/ml Indicative of Myocardial Injury.</content>
<content></content> ID Date Data Source [id number] 12/10/2019 11:21:00 AM EDT [facility] ([facility]) Name Value Range Interpretation Code Description Data Mel rce(s) Supporting Document(s) Lactate [Mass/volume] in Serum or Plasma 1.2 mmol/L 0.4-2.0 [facility] ([facility]) Y/N query for Sepsis Lactate Rule: Y ID Date Data Source [id number] 12/10/2019 11:21:00 AM EDT [facility] ([facility]) Name Value Range Interpretation Code Description Data Mel rce(s) Supporting Document(s) Venous Partial Pressure Co2 76.2 mmHg 38.0-50.0 [facility] ([facility]) Venous Partial Pressure O2 59.9 mmHg 30.0-50.0 [facility] ([facility]) Venous PH 7.319 units 7.330-7.430 [facility] ([facility]) Venous Base Excess 9.5 [facility] ([facility]) Venous Hco3 38.3 meq/L 23.0-27.0 [facility] ([facility]) Venous Total Co2 40.6 meq/L 24.0-28.0 [facility] ([facility]) Venous O2 Saturation 89.0 % 60.0-80.0 [facility] ( [facility] Venous Standard Hco3 33.0 meq/L [facility] ( [facility]) ID Date Data Source [id number] 12/02/2019 12:00:00 AM EDT [facility] Smith Marie Jr, MD Patient Name: MIGUEL [id number] [facility] Date of : 1955[place] [address] Date of Exam: 12/02/2019#: Fax: [phone] EXAM: [...] rce(s) Supporting Document(s) ID Date Data Source [id number] 11/30/2019 03:35:00 PM EDT [facility] ([facility]) Name Value Range Interpretation Code Description Data Mel rce(s) Supporting Document(s) Glucose [Mass/volume] in Serum or Plasma 172 mg/dL 74-99 [facility] ([facility]) 100-125 mg/dL PRE-DIABETES/FASTING >126 mg/dL DIABETES/FASTING Urea nitrogen [Mass/volume] in Serum or Plasma 17 mg/dL 7-18 [facility] ([facility]) Creatinine 0.9 mg/dL 0.6-1.3 [facility] ([place] [facility]) Sodium [Moles/volume] in Serum or Plasma 143 meq/L 136-145 [facility] ([facility]) Carbon dioxide, total [Moles/volume] in Serum or Plasma 36 meq/L 21 -32 [facility] ([facility]) Chloride [Moles/volume] in Serum or Plasma 99 meq/L 98-107 [facility] ([facility]) Potassium [Moles/volume] in Serum or Plasma 3.6 meq/L 3.5-5.1 [facility] ([facility]) Calcium [Mass/volume] in Serum or Plasma 8.5 mg/dL 8.5-10.1 [facility] ([facility]) Glomerular filtration rate/1.73 sq M pre dicted among non-blacks [Volume Rate/Area] in Serum or Plasma by Creatinine-based formula (MDRD) Laboratory test result [facility] ([place] [facility] Glomerular filtration rate/1.73 sq M pre dicted among blacks [Volume Rate/Area] in Serum or Plasma by Creatinine-based formula (MDRD) Laboratory test result [facility] ([place] [facility] <content>CHRONIC KIDNEY DISEASE STAGING PER NKF</content>
<content></content>
<content>STAGE I & II GFR >= 60 NORMAL TO MILDLY DECREASED</content>
<content>STAGE III GFR 30-59 MODERATELY DECREASED</content>
<content>STAGE IV GFR 15-29 SEVERELY DECREASED</content>
<content>STAGE V GFR <15 VERY LITTLE GFR LEFT</content>
<content>ESRD GFR <15 ON BOILERMAKER PIPE FITTER</content>
<content></content> ID Date Data Source [id number] 11/30/2019 03:35:00 PM EDT [facility] ([facility]) Name Value Range Interpretation Code Description Data Mel rce(s) Supporting Document(s) Natriuretic peptide B [Mass/volume] in Serum or Plasma 33.8 pg/mL 0.0 -100.0 [facility] ([facility]) ID Date Data Source [id number] 11/30/2019 03:35:00 PM EDT [facility] Name Value Range Interpretation Code Description Data Mel rce(s) Supporting Document(s) Leukocytes [#/volume] in Blood by Automated count 17.2 x10*3/UL 4.1-1 0.9 [facility] ([facility]) Erythrocytes [#/volume] in Blood by Automated count 4.58 x10*6/UL 4.2 0-6.30 [facility] ([facility]) MCV 81.1 fL 80.0-97.0 [facility] [facility]) Hemoglobin [Mass/volume] in Blood 11.9 g/dL 12.0-18.0 [facility] ([facility]) Hematocrit [Volume Fraction] of Blood by Automated count 37.2 % 3 7.0-51.0 [facility] ([facility]) Erythrocyte distribution width [Ratio] by Automated count 14.2 % 11.6-13.7 [facility] ([facility]) MCH 25.9 pg 26.0-32.0 [facility] ([place] [facility]) MCHC 31.9 g/dL 31.0-38.0 [facility] ([place] [facility]) Lymph % 11.0 % 10.0-58.5 [facility] ([facility]) Platelets [#/volume] in Blood by Automated count 465 x10*3/UL 140-440 [facility] ([facility]) MPV 6.8 FL 7.8-11.0 [facility] ([place] [facility]) Mid % 3.4 % 1.7-9.3 [facility] ([place] [facility]) Neut % 85.6 % 37.0-92.0 [facility] ([place] [facility]) Mid # 0.6 x10*3/UL 0.1-0.6 [facility] ([facility]) Lymph # 1.9 x10*3/UL 0.6-4.1 [facility] ([facility]) Neut # 14.7 x10*3/UL 2.0-7.8 [facility] ([facility]) ID Date Data Source [id number] 11/10/2019 12:00:00 AM EDT [facility] Name Value Range Interpretation Code Description Data Mel rce(s) Supporting Document(s) 2019-nCoV N XXX Ql MOE N2 [facility] [place] This lab was ordered by [facility] and reported by KIERA. ID Date Data Source [id number] 08/04/2019 08:39:00 AM EDT [facility] ([facility] Name Value Range Interpretation Code Description Data Mel rce(s) Supporting Document(s) Thyrotropin [Units/volume] in Serum or Plasma by Detec tion limit <= 0.05 mIU/L 1.61 uIU/mL 0.36-3.74 [facility] ([facility] ) ID Date Data Source [id number] 08/04/2019 08:39:00 AM EDT [facility] ([facility]) Name Value Range Interpretation Code Description Data Mel rce(s) Supporting Document(s) Sodium [Moles/volume] in Serum or Plasma 141 meq/L 136-145 [facility] ([facility]) Creatinine 0.6 mg/dL 0.6-1.3 [facility] ([facility]) Glucose [Mass/volume] in Serum or Plasma 147 mg/dL 74-99 [facility] ([facility]) 100-125 mg/dL PRE-DIABETES/FASTING >126 mg/dL DIABETES/FASTING Urea nitrogen [Mass/volume] in Serum or Plasma 15 mg/dL 7-18 [facility] ([facility]) Carbon dioxide, total [Moles/volume] in Serum or Plasma 39 meq/L 21 -32 [facility] ([facility]) Potassium [Moles/volume] in Serum or Plasma 4.1 meq/L 3.5-5.1 [facility] ([facility]) Chloride [Moles/volume] in Serum or Plasma 101 meq/L 98-107 [facility] ([facility]) Calcium [Mass/volume] in Serum or Plasma 8.9 mg/dL 8.5-10.1 [facility] ([place] [facility] Glomerular filtration rate/1.73 sq M pre dicted among non-blacks [Volume Rate/Area] in Serum or Plasma by Creatinine-based formula (MDRD) Laboratory test result [facility] ([place] [facility] Glomerular filtration rate/1.73 sq M pre dicted among blacks [Volume Rate/Area] in Serum or Plasma by Creatinine-based formula (MDRD) Laboratory test result [facility] ([place] [facility] <content>CHRONIC KIDNEY DISEASE STAGING PER NKF</content>
<content></content>
<content>STAGE I & II GFR >= 60 NORMAL TO MILDLY DECREASED</content>
<content>STAGE III GFR 30-59 MODERATELY DECREASED</content>
<content>STAGE IV GFR 15-29 SEVERELY DECREASED</content>
<content>STAGE V GFR <15 VERY LITTLE GFR LEFT</content>
<content>ESRD GFR <15 ON BOILERMAKER PIPE FITTER</content>
<content></content> ID Date Data Source [id number] 08/04/2019 08:39:00 AM EDT [facility] Name Value Range Interpretation Code Description Data Mel rce(s) Supporting Document(s) Hemoglobin A1c/Hemoglobin.total in Blood 7.7 g/dL 4.8-5.6 [facility] ([place] [facility] Lab Result Notes: Pre-Diabetes 5.7 - 6.4 % Diabetes = or > 6.5% Glucose mean value [Mass/volume] in Blood Estimated fr om glycated hemoglobin 174 mg/dL 60-110 [facility] ([place] [facility] ID Date Data Source [id number] 08/04/2019 08:39:00 AM EDT [facility] ([facility] [place] [facility] Name Value Range Interpretation Code Description Data Mel rce(s) Supporting Document(s) Leukocytes [#/volume] in Blood by Automated count 11.1 x10*3/UL 4.1-1 0.9 [facility] ([facility]) NOTE: RESULT VERIFIED. Hematocrit [Volume Fraction] of Blood by Automated count 32.6 % 3 7.0-51.0 [facility] ([facility]) Hemoglobin [Mass/volume] in Blood 10.2 g/dL 12.0-18.0 [facility] ([facility]) Erythrocytes [#/volume] in Blood by Automated count 4.03 x10*6/UL 4.2 0-6.30 [facility] ([facility] [facility]) Erythrocyte distribution width [Ratio] by Automated count 15.4 % 11.6-13.7 [facility] ([facility]) MCV 80.7 fL 80.0-97.0 [facility] [facility] MCH 25.3 pg 26.0-32.0 [facility] ([place] [facility] MCHC 31.4 g/dL 31.0-38.0 [facility] [facility] Platelets [#/volume] in Blood by Automated count 434 x10*3/UL 140-440 [facility] ([facility]) Lymph % 21.3 % 10.0-58.5 [facility] ([place] [facility]) MPV 6.9 FL 7.8-11.0 [facility] ([place] [facility]) Lymph # 2.3 x10*3/UL 0.6-4.1 [facility] ([facility]) Mid % 6.5 % 1.7-9.3 [facility] ([place] [facility] Neut % 72.2 % 37.0-92.0 [facility] ([place] [facility]) Mid # 0.8 x10*3/UL 0.1-0.6 [facility] ([facility]) Neut # 8.0 x10*3/UL 2.0-7.8 [facility] ([facility]) Procedure Social History Code Duration Value Status Description Data Source(s ) Smoking 04/12/2020 12:00:00 AM EST Patient is a former smoker completed Patient is a former smoker [facility] ([facility]) Smoking 11/17/2019 12:00:00 AM EDT Patient is a former smoker completed Patient is a former smoker [facility] ([facility] ) Vital Signs ID Date Data Source UNK Name Value Range Interpretation Code Description Data Source(s) Body mass index (BMI) [Ratio] 37.9 kg/m2 37.9 k g/m2 [facility] ([facility]) Body height 65 [in_i] 65 [in_i] [facility] 5'5" Body weight 228.00 [lb_av] 228.00 [lb_av] [facility] ([facility]) Body mass index (BMI) [Ratio] 39.4 kg/m2 39.4 k g/m2 [facility] ([facility]) Oxygen saturation in Arterial blood by Pulse oximetry 90 % 90 % [facility] ([facility]) RM Air Body weight 237.00 [lb_av] 237.00 [lb_av] [facility] ([facility]) Body height 65 [in_i] 65 [in_i] [facility] ([facility]) 5'5" Heart rate 88 /min 88 /min [facility] ([facility]) Diastolic blood pressure 76 mm[Hg] 76 mm[Hg] [facility] ([facility]) Systolic blood pressure 120 mm[Hg] 120 mm[Hg] [facility] ([facility]) Diastolic blood pressure--sitting 64 mm[Hg] 64 mm[Hg] [facility] ([facility]) large cuff, Ra Systolic blood pressure--sitting 130 mm[Hg] 130 mm[Hg] [facility] ([facility]) large cuff, Ra Body mass index (BMI) [Ratio] 39.1 kg/m2 39.1 k g/m2 [facility] ([facility]) Body height 65 [in_i] 65 [in_i] [facility] ([facility]) 5'5" Body weight 235.00 [lb_av] 235.00 [lb_av] [facility] ([facility]) Body mass index (BMI) [Ratio] 39.1 kg/m2 39.1 k g/m2 [facility] ([facility]) Oxygen saturation in Arterial blood by Pulse oximetry 89 % 89 % [facility] ([facility]) With O2 @ 3L Body weight 235.00 [lb_av] 235.00 [lb_av] [facility] Body height 65 [in_i] 65 [in_i] [facility] ([facility]) 5'5" Heart rate 92 /min 92 /min [facility] ([facility]) Diastolic blood pressure 90 mm[Hg] 90 mm[Hg] [facility] ([facility]) Systolic blood pressure 150 mm[Hg] 150 mm[Hg] [facility] ([facility]) Diastolic blood pressure--sitting 70 mm[Hg] 70 mm[Hg] [facility] ([facility]) large cuff, Ra Systolic blood pressure--sitting 134 mm[Hg] 134 mm[Hg] [facility] ([facility]) large cuff, Ra Heart rate 81 /min 81 /min [facility] ([facility]) Body mass index (BMI) [Ratio] 38.8 kg/m2 38.8 k g/m2 [facility] ([facility]) Body height 65 [in_i] 65 [in_i] [facility] 5'5" Body weight 233.00 [lb_av] 233.00 [lb_av] [facility] ([facility]) Oxygen saturation in Arterial blood by Pulse oximetry 96 % 96 % [facility] ([facility]) Body weight 233.00 [lb_av] 233.00 [lb_av] [facility] ([facility]) Heart rate 85 /min 85 /min [facility] ([facility]) Diastolic blood pressure 60 mm[Hg] 60 mm[Hg] [facility] ([facility]) Systolic blood pressure 116 mm[Hg] 116 mm[Hg] [facility] ([facility]) Oxygen saturation in Arterial blood by Pulse oximetry 92 % 92 % [facility] ([facility]) With O2 Body weight 235.00 [lb_av] 235.00 [lb_av] [facility] ([facility]) Heart rate 87 /min 87 /min [facility] ([facility]) Diastolic blood pressure 68 mm[Hg] 68 mm[Hg] [facility] ([facility]) Systolic blood pressure 122 mm[Hg] 122 mm[Hg] [facility] ([facility]) Diastolic blood pressure--sitting 70 mm[Hg] 70 mm[Hg] [facility] ([facility]) Systolic blood pressure--sitting 122 mm[Hg] 122 mm[Hg] [facility] ([facility]) Body mass index (BMI) [Ratio] 39.8 kg/m2 39.8 k g/m2 [facility] ([facility]) Body height 65 [in_i] 65 [in_i] [facility] 5'5" Body weight 239.00 [lb_av] 239.00 [lb_av] [facility] ([facility]) Oxygen saturation in Arterial blood by Pulse oximetry 94 % 94 % [facility] ([facility]) With O2 Body weight 232.00 [lb_av] 232.00 [lb_av] [facility] ([facility]) Heart rate 80 /min 80 /min [facility] ([facility]) Diastolic blood pressure 60 mm[Hg] 60 mm[Hg] [facility] ([facility]) Systolic blood pressure 110 mm[Hg] 110 mm[Hg] [facility] ([facility]) Oxygen saturation in Arterial blood by Pulse oximetry 90 % 90 % [facility] ([facility]) 4L on demand Body weight 224.00 [lb_av] 224.00 [lb_av] [facility] Heart rate 89 /min 89 /min [facility] ([facility]) Diastolic blood pressure 54 mm[Hg] 54 mm[Hg] [facility] ([facility]) Systolic blood pressure 110 mm[Hg] 110 mm[Hg] [facility] ([facility]) Body weight 90.720 kg 90.720 kg [facility] ([facility]) Body mass index (BMI) [Ratio] 33.3 kg/m2 33.3 k g/m2 [facility] ([facility]) Body weight 200.00 [lb_av] 200.00 [lb_av] [facility] Body height 65 [in_i] 65 [in_i] [facility] ([facility]) 5'5" Oxygen saturation in Arterial blood by Pulse oximetry 922 % 922 % [facility] ([facility]) Heart rate 80 /min 80 /min [facility] ([facility]) Diastolic blood pressure 80 mm[Hg] 80 mm[Hg] [facility] ([facility]) Systolic blood pressure 124 mm[Hg] 124 mm[Hg] [facility] ([facility]) Oxygen saturation in Arterial blood by Pulse oximetry 95 % 95 % [facility] [facility] Body weight 215.00 [lb_av] 215.00 [lb_av] [facility]) Respiratory rate 20 /min 20 /min [facility] ( [facility]) 2L O2 via NC, unlabored and easy respira tions Heart rate 74 /min 74 /min [facility] ([facility]) Diastolic blood pressure 70 mm[Hg] 70 mm[Hg] [facility] ([facility]) Systolic blood pressure 117 mm[Hg] 117 mm[Hg] [facility] ([facility]) Oxygen saturation in Arterial blood by Pulse oximetry 92 % 92 % [facility] ([facility]) Respiratory rate 22 /min 22 /min [facility] ( [facility]) with O2, 2L via nasal cannula Body temperature 98.8 [degF] 98.8 [degF] [facility] ([facility]) Heart rate 78 /min 78 /min [facility] ([facility]) Diastolic blood pressure 60 mm[Hg] 60 mm[Hg] [facility] ([facility]) Systolic blood pressure 110 mm[Hg] 110 mm[Hg] [facility] ([facility]) Oxygen saturation in Arterial blood by Pulse oximetry 90 % 90 % [facility] ([facility]) With O2 Body weight 208.00 [lb_av] 208.00 [lb_av] [facility] ([facility]) Diastolic blood pressure 82 mm[Hg] 82 mm[Hg] [facility] ([facility]) Systolic blood pressure 124 mm[Hg] 124 mm[Hg] [facility] ([facility]) Body weight 92.081 kg 92.081 kg [facility] ([facility]) Body mass index (BMI) [Ratio] 33.8 kg/m2 33.8 k g/m2 [facility] ([facility]) Body weight 203.00 [lb_av] 203.00 [lb_av] [facility] ([facility]) Body height 65 [in_i] 65 [in_i] [facility] ([facility]) 5'5" Oxygen saturation in Arterial blood by Pulse oximetry 903 % 903 % [facility] ([facility]) Heart rate 80 /min 80 /min [facility] ([facility]) Diastolic blood pressure 80 mm[Hg] 80 mm[Hg] [facility] ([facility]) Systolic blood pressure 130 mm[Hg] 130 mm[Hg] [facility])
--- NOTE | 2020-06-22 14:55 | REP ---
INDICATION: SOB / Cough. COMPARISON: Comparison CT study of the chest 08 June 2019.. TECHNIQUE: Helical scanning is acquired. 3 mm axial images are generated. Coronal and sagittal MPR and coronal MIP images are generated. FINDINGS: Preliminary digital ware finisher radiograph is unremarkable. There are nodular densities in the left lower lobe including a calcified granuloma posteromedially and a 6 mm noncalcified pleural based nodule in the left lower lobe laterally. These are unchanged from the 2017 prior study. On today's examination, there is a a small zone linear platelike atelectasis in the left lower lobe which is a new finding. There is discoid atelectasis in the right middle lobe which is less subtle and also new. No new infiltrate is seen. No pleural effusion is noted. There is some vascular calcification. No adenopathy or mass is seen in the hilar region. There is marked diffuse fatty infiltration of the liver. Low-density hypertrophy of the right adrenal gland is again noted. There clips in the gallbladder fossa. Mild scoliotic changes are seen in the thoracic spine. IMPRESSION: New bibasilar discoid atelectatic changes. No acute infiltrate seen. Stable left lower lobe nodules. Vascular calcification. <Electronically signed by Tristan Higgins > 06/22/20 [id number]
[2020-06-22 14:57] VITALS: O2SAT 90
[2020-06-22] MEDS ORDERED: MOM 30ML SUSPENSION UDC PO PRN (15:00)
[2020-06-22] MEDS ORDERED: CALCIUM CARBONATE 500 MG CHEW U/D PO PRN (15:00)
[2020-06-22] MEDS ORDERED: GLUCOSE 4GM CHEW TABLET PO PRN (15:00)
[2020-06-22] MEDS ORDERED: GLUCAGON INJ 1MG VIAL SC PRN (15:00)
[2020-06-22] MEDS ORDERED: NYSTATIN 100,000 UNITS/GM TOPICAL PWD 15 GM TOP PRN (15:00)
[2020-06-22] MEDS ORDERED: DEXTROSE 50% 50 ML SYRINGE IV PRN (15:00)
[2020-06-22] MEDS ORDERED: ALPRAZolam 0.5 MG TAB PO PRN (15:00)
--- NOTE | 2020-06-22 15:02 | HPEPDOC ---
[facility] Medical History & Physical Date of Admission Jun 22, 2020 Date of Service: Jun 22, 2020 History and Physical Chief complaint: Who presented to the emergency room with complaints of shortness of breath History of present illness: Patient is a 64-year-old female who presented to the ER with complaints of shortness of breath. She has noted that she had a weight gain of 7 pounds within 24 hours had some palpitations and noted her pulse oximeter to be 72% while at [facility]. Patient denies any significant cough. Has not experienced any fevers or chills. Denies any nausea, vomiting, abdominal pain, constipation, diarrhea, or urinary discomfort. Patient reports that she has been compliant with her diet and has been experiencing a weight loss of 1 pound per day. However, has noted that she has gained 7 pounds in the last 24 hours. Past Medical History: COPD Chronic hypoxic respiratory failure SUYAPA on BIPAP CAD (2010; No stent) DLP Diastolic CHF IDDM2 Hypothyroidism Bipolar Depression Chronic back pain GERD Past Surgical History: Tonsillectomy Breast surgery Cholecystectomy Exploratory laparotomy Allergies: See below Medications: See below Family History: - Mother lung CA, CAD - Father with CAD Social History: - Denies the use of alcohol or illicit drugs; patient quit smoking one year ago but was a smoker of 45 years at 1 PPD - Denies recent travel or sick contacts - Lives at [facility] Review of Systems: 10 point review of systems complete, all negative otherwise stated in HPI Physical exam: - Vitals: BP [135/80], HR [92], RR [24], Sat [91%RA], Temp [98.9F] - General: Lying in bed, Speaking in full sentences, AAOx3 - HEENT: NC, AT, PERRLA - CVS: RRR, +S1S2 - Lungs: Fair air entry bilaterally, No appreciable wheezing / rales, Mild rhonchi at R lung - Abdomen: Soft, Non-distended, Non-tender - Extremities: No lower extremity edema, No calf tenderness - Neuro: No focal motor or sensory deficit - Skin: No visible rashes Labs: See below Imaging: CXR 06/22: Increased density right base medially consistent with pneumonia. Otherwise no acute disease.. Duplex US 06/22: Negative bilateral in lower extremity duplex venous ultrasound. No evidence of deep vein thrombosis. EKG: See below Assessment and Plan: Acute on Chronic hypoxic respiratory failure - possibly 2/2 pneumonia, possibly 2/2 COPD exacerbation, possibly 2/2 CHF - Presented to the ER with complaints of shortness of breath - Denies any productive cough / fevers / chills; reports weight gain - BNP not significantly elevated - Mild leukocytosis / Lactic acidosis - CXR noted - s/p Vancomycin and Zosyn in the ER - Will start Levofloxacin - Will check blood cultures / sputum cultures / procalcitonin / MRSA screen - Will get CT chest - Will start incentive spirometry / acapella / mucinex Chronic Diastolic CHF - See above - Will start Furosemide IV after CT imaging COPD - See above - s/p Solumedrol - Will start Prednisone - Will continue with inhaled therapy as ordered Mild lactic acidosis - Clinically patient does not appear septic - Will follow up repeat Lactic acid SUYAPA on BIPAP - Allow home BIPAP use while inpatient HTN - BP well controlled - c/w Bisoprolol with hold parameters CAD - Hx of [place] 2010; No stent - c/w ASA 81, Atorvastatin DLP - c/w Atorvastatin IDDM2 with Neuropathy - Will start ISS - c/w Gabapentin Hypothyroidism - c/w Levothyroxine Bipolar / Depression / Anxiety - c/w Fluoxetine / Alprazolam Chronic back pain - c/w [place] PRN Chronic hypomagnesemia - c/w supplementation Vitamin D deficiency - c/w supplementation GERD - c/w Calcium Carbonate PRN - c/w Omeprazole DVT prophylaxis - Will start Lovenox Vital Signs Vital Signs Date Time Temp Pulse Resp B/P (MAP) Pulse Ox O2 Delivery O2 Flow Rate FiO2 06/22/20 14:57 90 Nasal Cannula 06/22/20 13:15 135/80 (98) 06/22/20 13:12 92 06/22/20 11:36 4.0 06/22/20 11:29 98.9 24 Laboratory Data Labs 24H Laboratory Tests 2 06/22/20 12:00: Immature Granulocyte % (Auto) 1.1, Neutrophils (%) (Auto) 90.2H, Lymphocytes (%) (Auto) 5.1L, Monocytes (%) (Auto) 3.1, Eosinophils (%) (Auto) 0.1, Basophils (%) (Auto) 0.4, Neutrophils # (Auto) 12.4H, Lymphocytes # (Auto) 0.7L, Monocytes # (Auto) 0.4, Eosinophils # (Auto) 0.0, Basophils # (Auto) 0.1, Nucleated Red Blood Cells % (auto) 0.0, Blood Gas Bicarbonate Standard 35.2, Venous Blood pH 7.410, Venous Blood Partial Pressure CO2 62.2H, Venous Blood Partial Pressure O2 61.2H, Venous Blood Total Carbon Dioxide 40.5H, Venous Blood HCO3 38.5H, Venous Blood Oxygen Saturation 88.4H, Venous Blood Base Excess 11.7H, Anion Gap 9, Glomerular Filtration Rate > 60.0, Lactic Acid Level 2.8*H, Calcium Level 9.4, Total Bilirubin 0.4, Direct Bilirubin 0.1, Aspartate Amino Transf (AST/SGOT) 45H, Alanine Aminotransferase (ALT/SGPT) 72, Alkaline Phosphatase 120H, Total Creatine Kinase 47, Creatine Kinase MB 1.1, Creatine Kinase MB Relative Index 2.34, Troponin I < 0.02, WP-Imr-T-Type Natriuretic Peptide 140H, Total Protein 6.7, Albumin 3.5, Albumin/Globulin Ratio 1.1L, Thyroid Stimulating Hormone (TSH) 0.216L 06/22/20 12:07: POC Total CO2 (Misc Panel) 39.0H 06/22/20 12:14: POC Total CO2 (Misc Panel) 41.0H, POC Glucose (Misc Panel) 343H, POC Sodium (Misc Panel) 137, POC Potassium (Misc Panel) 3.1L, POC Chloride (Misc Panel) 86L, POC Blood Urea Nitrogen (Misc Panel 18, POC Ionized Calcium (Misc Panel) 4.2L, POC Creatinine (Misc Panel) 0.9, POC Hematocrit (Misc Panel) 38.0 06/22/20 12:54: Prothrombin Time 12.2, Prothromb Time International Ratio 0.89, Activated Partial Thromboplast Time 24.5L, D-Dimer, Quantitative 387.85 06/22/20 13:07: Influenza A Immunofluorescence NEGATIVE, Influenza B Immunofluorescence NEGATI VE, SARS Antigen (LFIA) NEGATIVE CBC/BMP Laboratory Tests 06/22/20 12:00 Microbiology Microbiology 06/22/20 Respiratory Virus Panel (PCR) ([facility]) - Final, Complete 06/22/20 Blood Culture, Received Pending 06/22/20 Blood Culture, Received Pending Home Medications Scheduled Alprazolam (Alprazolam) 0.5 Mg Tablet, 0.5 MG PO BID Aspirin (Aspirin EC) 81 Mg Tablet.dr, 81 MG PO DAILY Atorvastatin Calcium (Lipitor) 80 Mg Tab, 80 MG PO DAILY Bisoprolol Fumarate (Bisoprolol Fumarate) 5 Mg Tab, 2.5 MG PO DAILY Cholecalciferol (Vitamin D3) (Vitamin D3) 1,000 Unit Tablet, 5,000 UNITS PO DAILY TAKES AT LUNCH Fluoxetine Hcl (Fluoxetine HCl) 20 Mg Capsule, 20 MG PO DAILY WITH 10MG FOR A TOTAL OF 30MG Fluoxetine Hcl (Fluoxetine HCl) 10 Mg Capsule, 10 MG PO DAILY WITH 20MG FOR A TOTAL OF 30MG Gabapentin (Gabapentin) 600 Mg Tablet, 600 MG PO TID Glipizide (Glipizide ER) 5 Mg Tab.er.24, 5 MG PO WM Ipratropium/Albuterol Sulfate (Iprat-Albut 0.5-3(2.5) mg/3 ml) 3 Ml Ampul.neb, 1 VIAL INH QID Levothyroxine Sodium (Levoxyl) 25 Mcg Tab, 25 MCG PO QAM Linagliptin (Tradjenta) 5 Mg Tablet, 5 MG PO DAILY Magnesium Oxide (Magnesium Oxide) 400 Mg Tablet, 400 MG PO QHS Menthol/Zinc Oxide (Gold [place] Medicated Body Powdr) 113 Gm Powder, 1 APPLIC TOP BID APPLY TO SKIN FOLDS Multivitamins (Thera M Plus Tablet) 1 Each Tablet, 1 TAB PO DAILY Omeprazole (Omeprazole) 20 Mg Capsule.dr, 20 MG PO BID Potassium Chloride (Potassium Chloride) 20 Meq Tab.er.prt, 20 MEQ PO DAILY Prednisone (Prednisone) 10 Mg Tablet, 10 MG PO DAILY Salmeterol/Fluticasone (Advair 250-50 Diskus) 1 Each Blst.w.dev, 1 PUFF INH BID Simethicone (Simethicone) 80 Mg Tab.chew, 80 MG PO WM Torsemide (Torsemide) 100 Mg Tablet, 50 MG PO Q2D Torsemide (Torsemide) 100 Mg Tablet, 100 MG PO Q2D Umeclidinium [place] (Incruse Ellipta) 62.5 Mcg Blst.w.dev, 1 PUFF INH DAILY Scheduled PRN Acetaminophen (Acetaminophen 8 Hour) 650 Mg Tablet.er, 650 MG PO BID PRN for PAIN Albuterol Sulfate (Ventolin Hfa) 108 Mcg/Act Aer, 2 PUFFS INH Q4H PRN for SHORTNESS OF BREATH Alprazolam (Alprazolam) 0.5 Mg Tablet, 0.5 MG PO DAILY PRN for ANXIETY Calcium Carbonate (Tums) 200 Mg Tab.chew, 500 MG PO QID PRN for HEARTBURN Diclofenac Sodium (Voltaren) 100 Gm Gel..gram., 4 GRAM TOP TID PRN for PAIN APPLY TO AREAS OF PAIN. MAY SELF-ADMINISTER Hydrocodone/Acetaminophen (Hydrocodone-Acetamin 5-325 mg) 1 Each Tablet, 1 TAB PO BID PRN for PAIN Ipratropium/Albuterol Sulfate (Iprat-Albut 0.5-3(2.5) mg/3 ml) 3 Ml Ampul.neb, 1 VIAL INH Q6H PRN for SHORTNESS OF BREATH Lidocaine HCl (Aspercreme) 4% Cream..g., 1 DOSE TOP QID PRN for PAIN APPLY TO ANY PAINFUL AREAS Milk Of Magnesia (Milk of Magnesia) 2,400 Mg/10 Ml Oral.susp, 10 ML PO DAILY PRN for CONSTIPATION Nystatin (Nystatin Powder) 15 Gm Powder, 1 DOSE TOP BID PRN for ITCH/RASH USES UNDER BREASTS Allergies Coded Allergies: dapagliflozin (Verified Allergy, Mild, Sores, 05/27/20) Cat Dander (Verified Allergy, Unknown, 05/27/20) Dust (Verified Allergy, Unknown, 05/27/20) DANELLE KHAN MD Jun 22, 2020 15:02
[2020-06-22] MEDS ORDERED: FUROSEMIDE 40MG/4ML VIAL (J1940) IV SCH (16:00)
[2020-06-22 16:15] VITALS: BP 138/78
[2020-06-22] MEDS: NORCO, ANEXSIA 5/325MG TABLET (HYDROcodone/ACETAMINOPHEN) PO PRN (16:44)
[2020-06-22] MEDS: LevoFLOXacin IV 750 MG in IV 1 EA IV SCH (17:35)
[2020-06-22] MEDS: SIMETHICONE 80 MG CHEW TAB PO SCH (17:36)
[2020-06-22] MEDS: HumaLOG INSULIN (NovoLOG) PER UNIT SC SCH ×2 (17:36→20:37)
[2020-06-22 19:06] LABS: CK-MB VALUE MASS < 1.0 NG/ML (<3.6); CPK CREATINE PHOSPHOKINASE 45 U/L (26-192); MB/CK RELATIVE INDEX 2.22 (< OR =4); TROPONIN I < 0.02 NG/ML (< 0.10)
[2020-06-22] MEDS: ADVAIR HFA 115/21MCG INHALER INH SCH (19:25)
[2020-06-22 20:00] VITALS: BP 113/56
[2020-06-22] MEDS ORDERED: NS 250 ML IV ONE (20:30)
[2020-06-22] MEDS: OMEPRAZOLE 20 MG CAP PO SCH (20:35)
[2020-06-22] MEDS: guaiFENesin ER 600 MG TAB PO SCH (20:35)
[2020-06-22] MEDS: ALPRAZolam 0.5 MG TAB PO SCH (20:35)
[2020-06-22] MEDS: MAGNESIUM OXIDE 400 MG TAB (MAG-OX) PO SCH (20:36)
[2020-06-23] VITALS: BP 126/58
[2020-06-23 00:53] LABS: CK-MB VALUE MASS < 1.0 NG/ML (<3.6); CPK CREATINE PHOSPHOKINASE 41 U/L (26-192); MB/CK RELATIVE INDEX 2.44 (< OR =4); TROPONIN I < 0.02 NG/ML (< 0.10)
[2020-06-23] MEDS: IPRATROPIUM 0.5MG/ALBUTEROL 2.5MG INH SOL UD 3ML (DUONEB) NEB SCH ×4 (02:17→20:14)
[2020-06-23 04:00] VITALS: BP 128/58
[2020-06-23] MEDS ORDERED: FUROSEMIDE 40MG/4ML VIAL (J1940) IV SCH (04:00)
[2020-06-23 05:01] LABS: BASO # 0.1 10^3/uL (0.0-0.2); BASO % 0.5 % (0.0-1.0); EOS % 0.2 % (0.0-3.0); HEMATOCRIT 37.1 % (36.0-47.0); HEMOGLOBIN 10.8 g/dl (12.0-15.5); LYMPH # 1.4 10^3/uL (1.5-5.0); MEAN CORPUSCULAR HEMOGLOBIN 25.5 pg (27.0-33.0); MEAN CORPUSCULAR HGB CONC 29.1 g/dl (32.0-36.5); MEAN CORPUSCULAR VOLUME 87.7 fl (80.0-96.0); MONO # 0.9 10^3/uL (0.0-0.8); NEUTROPHILS # 8.4 10^3/uL (1.5-8.5); NEUTROPHILS % 76.9 % (36.0-66.0); PLATELET COUNT, AUTOMATED 412 10^3/uL (150-450); RED BLOOD COUNT 4.23 10^6/uL (4.00-5.40)
[2020-06-23] MEDS: LEVOTHYROXINE 25MCG TABLET (0.025MG) PO SCH (05:18)
[2020-06-23 05:23] LABS: BLOOD UREA NITROGEN 20 MG/DL (7-18); CALCIUM LEVEL 9.7 MG/DL (8.8-10.2); CARBON DIOXIDE LEVEL 40 MEQ/L (21-32); CHLORIDE LEVEL 94 MEQ/L (98-107); CREATININE FOR GFR 0.69 MG/DL (0.55-1.30); GLOMERULAR FILTRATION RATE > 60.0 (>45); GLUCOSE, FASTING 258 MG/DL (70-100); MAGNESIUM LEVEL 1.5 MG/DL (1.8-2.4); POTASSIUM SERUM 3.1 MEQ/L (3.5-5.1); SODIUM LEVEL 140 MEQ/L (136-145)
[2020-06-23 08:00] VITALS: BP 134/84
[2020-06-23] MEDS: ASPIRIN 81 MG ENTERIC TAB PO SCH (08:00)
[2020-06-23] MEDS: BISOPROLOL FUM 2.5 MG PER 1/2TAB PO SCH (08:00)
[2020-06-23] MEDS: FLUoxetine 10 MG CAP PO SCH (08:00)
[2020-06-23] MEDS: SIMETHICONE 80 MG CHEW TAB PO SCH ×3 (08:00→17:20)
[2020-06-23] MEDS: ATORVASTATIN 20 MG TAB PO SCH (08:00)
[2020-06-23] MEDS: VITAMIN D 1,000 INTERNATIONAL UNITS TABLET PO SCH (08:00)
[2020-06-23] MEDS: guaiFENesin ER 600 MG TAB PO SCH ×2 (08:01→20:44)
[2020-06-23] MEDS: OMEPRAZOLE 20 MG CAP PO SCH ×2 (08:01→20:44)
[2020-06-23] MEDS: ALPRAZolam 0.5 MG TAB PO SCH ×2 (08:01→20:44)
[2020-06-23] MEDS: FLUoxetine 20 MG CAP PO SCH (08:01)
[2020-06-23] MEDS: MULTIVITAMINS/MINERALS THERAP 1 TAB PO SCH (08:01)
[2020-06-23] MEDS: HumaLOG INSULIN (NovoLOG) PER UNIT SC SCH ×4 (08:02→20:46)
[2020-06-23] MEDS: ENOXAPARIN 40MG/0.4ML SYRINGE (J1650 PER 10MG) SC SCH ×2 (08:02→08:09)
[2020-06-23] MEDS: ADVAIR HFA 115/21MCG INHALER INH SCH ×2 (08:15→20:14)
[2020-06-23] MEDS: POTASSIUM CHLORIDE 10 MEQ SR TABLET PO SCH (08:35)
[2020-06-23] MEDS: MAG SULF 1GM/100ML (MAG RUN) 1 GM in IV 1 EA IV SCH ×2 (08:35→09:44)
--- NOTE | 2020-06-23 08:55 | ECGEPIP ---
[facility] - ED Test Date: 2020-06-22 Pat Name: MIGUEL NAQVI Department: Room: - Gender: Female Assistant Inventory Manager: SHIRA : 1955 Requested By: Vidya Villavicencio Order Number: [id number] Reading MD: Vidya Villavicencio Measurements Intervals [place] Rate: 84 P: 81 ND: 147 QRS: 72 QRSD: 96 T: 79 QT: 393 QTc: 466 Interpretive Statements SINUS RHYTHM INDETERMINATE AXIS NSTTW abnormalities DECREASED RATE 05/27/20 Electronically Signed on 06-23-2020 8:54:58 EST by Vidya Villavicencio
[2020-06-23] MEDS ORDERED: predniSONE 20 MG TAB PO SCH (09:00)
[2020-06-23] MEDS: LEVEMIR (INSULIN DETEMIR) 1 UNITS/0.01ML SC SCH ×2 (09:00→20:46)
[2020-06-23] MEDS: TORSEMIDE 100 MG TAB PO SCH (09:18)
--- NOTE | 2020-06-23 11:17 | IPNPDOC ---
Text Note Date of Service The patient was seen on 06/23/20. NOTE Subjective: Patient is a 64-year-old female who presented to the ER with complaints of shortness of breath. She has noted that she had a weight gain of 7 pounds within 24 hours had some palpitations and noted her pulse oximeter to be 72% while at [facility]. Patient denies any significant cough. Has not experienced any fevers or chills. Denies any nausea, vomiting, abdominal pain, constipation, diarrhea, or urinary discomfort. Patient reports that she has been compliant with her diet and has been experiencing a weight loss of 1 pound per day. However, has noted that she has gained 7 pounds in the last 24 hours. Patient was admitted to the hospital service for further evaluation and treatment. Patient was seen and examined at the bedside. Currently patient reports that her breathing is doing better than yesterday. She denies any significant cough. Has not experience any chest pain or palpitations. Denies any nausea, vomiting, abdominal pain, diarrhea, or urinary discomfort. Objective: Vitals (See below) General: Laying in bed with BiPAP mask in place, does not appear to be in any distress. Appears comfortable, is awake, alert and oriented 3 HEENT: NC, AT CVS: +S1S2 Lungs: Air entry is fair bilaterally appreciated, rhonchi, crackles or wheezing Abdomen: Soft, nondistended, without tenderness Extremities: Lower extremities do not reveal any significant pitting edema, - Calf tenderness Imaging: CXR 06/22: Increased density right base medially consistent with pneumonia. Otherwise no acute disease.. Duplex US 06/22: Negative bilateral in lower extremity duplex venous ultrasound. No evidence of deep vein thrombosis. Chest CT 06/22: New bibasilar discoid atelectatic changes. No acute infiltrate seen. Stable left lower lobe nodules. Vascular calcification. Assessment and plan: Acute on Chronic hypoxic respiratory failure - possibly 2/2 pneumonia, possibly 2/2 COPD exacerbation, possibly 2/2 CHF - Presented to the ER with complaints of shortness of breath / Reports improvement in breathing this morning - Again, she has not experience any significant productive cough has remained afebrile - BNP not significantly elevated - Improving leukocytosis / s/p Lactic acidosis - PCT pending - Blood cultures / sputum cultures - pending - MRSA undetected - CXR / CT noted above - s/p Vancomycin and Zosyn in the ER - c/w Levofloxacin (Day #2) - c/w incentive spirometry / acapella / mucinex Chronic Diastolic CHF - See above - Patient has effectively diuresed on Furosemide - Will discontinue furosemide and resume torsemide PO COPD - See above - s/p Solumedrol - c/w Prednisone - c/w inhaled therapy as ordered s/p Llactic acidosis SUYAPA on BIPAP - Allow home BIPAP use while inpatient HTN - BP well controlled - c/w Bisoprolol with hold parameters CAD - Hx of [place] 2010; No stent - c/w ASA 81, Atorvastatin DLP - c/w Atorvastatin IDDM2 with Neuropathy - c/w ISS - c/w Gabapentin Hypothyroidism - c/w Levothyroxine Bipolar / Depression / Anxiety - c/w Fluoxetine / Alprazolam Chronic back pain - c/w [place] PRN Chronic hypomagnesemia - c/w supplementation Vitamin D deficiency - c/w supplementation GERD - c/w Calcium Carbonate PRN - c/w Omeprazole DVT prophylaxis - c/w Lovenox Disposition: - Patient is approaching medical clearance VSAnt, I+O VSAnt I+O Laboratory Tests 06/22/20 12:00 06/23/20 04:46 Vital Signs Date Time Temp Pulse Resp B/P (MAP) Pulse Ox O2 Delivery O2 Flow Rate FiO2 06/23/20 08:00 97.0 82 21 134/84 (101) 98 Nasal Cannula 4.0 I&O- Last 24 Hours up to 6 AM 06/23/20 06:00 Intake Total 1325 ml Output Total 4250 ml Balance -2925 ml DANELLE KHAN MD Jun 23, 2020 11:17
[2020-06-23 14:00] VITALS: BP 130/77
[2020-06-23] MEDS: LevoFLOXacin IV 750 MG in IV 1 EA IV SCH (17:20)
[2020-06-23 20:36] VITALS: BP 116/64
[2020-06-23] MEDS: MAGNESIUM OXIDE 400 MG TAB (MAG-OX) PO SCH (20:44)
[2020-06-24] MEDS: IPRATROPIUM 0.5MG/ALBUTEROL 2.5MG INH SOL UD 3ML (DUONEB) NEB SCH ×4 (01:17→19:56)
[2020-06-24 06:00] VITALS: BP 132/83
[2020-06-24] MEDS: LEVOTHYROXINE 25MCG TABLET (0.025MG) PO SCH (06:25)
[2020-06-24] MEDS: ADVAIR HFA 115/21MCG INHALER INH SCH ×2 (08:33→19:56)
[2020-06-24 08:40] LABS: BASO # 0.1 10^3/uL (0.0-0.2); BASO % 0.6 % (0.0-1.0); EOS # 0.1 10^3/uL (0.0-0.5); EOS % 0.9 % (0.0-3.0); HEMATOCRIT 39.7 % (36.0-47.0); HEMOGLOBIN 11.6 g/dl (12.0-15.5); LYMPH # 1.9 10^3/uL (1.5-5.0); LYMPH % 15.6 % (24.0-44.0); MEAN CORPUSCULAR HEMOGLOBIN 26.2 pg (27.0-33.0); MEAN CORPUSCULAR HGB CONC 29.2 g/dl (32.0-36.5); MEAN CORPUSCULAR VOLUME 89.6 fl (80.0-96.0); MONO # 1.1 10^3/uL (0.0-0.8); MONO % 8.9 % (0.0-5.0); NEUTROPHILS % 72.8 % (36.0-66.0); PLATELET COUNT, AUTOMATED 401 10^3/uL (150-450); RED BLOOD COUNT 4.43 10^6/uL (4.00-5.40); WHITE BLOOD COUNT 12.4 10^3/uL (4.0-10.0)
[2020-06-24 09:03] LABS: BLOOD UREA NITROGEN 21 MG/DL (7-18); CALCIUM LEVEL 9.6 MG/DL (8.8-10.2); CARBON DIOXIDE LEVEL 43 MEQ/L (21-32); CHLORIDE LEVEL 88 MEQ/L (98-107); CREATININE FOR GFR 0.88 MG/DL (0.55-1.30); GLOMERULAR FILTRATION RATE > 60.0 (>45); GLUCOSE, FASTING 241 MG/DL (70-100); MAGNESIUM LEVEL 1.9 MG/DL (1.8-2.4); POTASSIUM SERUM 3.3 MEQ/L (3.5-5.1); SODIUM LEVEL 140 MEQ/L (136-145)
[2020-06-24] MEDS: SIMETHICONE 80 MG CHEW TAB PO SCH ×3 (09:33→17:31)
[2020-06-24] MEDS: ALPRAZolam 0.5 MG TAB PO SCH ×2 (09:34→20:23)
--- NOTE | 2020-06-24 09:34 | IPNPDOC ---
Text Note Date of Service The patient was seen on 06/24/20. NOTE Subjective: Patient is a 64-year-old female who presented to the ER with complaints of shortness of breath. She has noted that she had a weight gain of 7 pounds within 24 hours had some palpitations and noted her pulse oximeter to be 72% while at [facility]. Patient denies any significant cough. Has not experienced any fevers or chills. Denies any nausea, vomiting, abdominal pain, constipation, diarrhea, or urinary discomfort. Patient reports that she has been compliant with her diet and has been experiencing a weight loss of 1 pound per day. However, has noted that she has gained 7 pounds in the last 24 hours. Patient was admitted to the hospital service for further evaluation and treatment. Patient was seen and examined at the bedside. Currently they report that her breathing is doing better. They deny any chest pain, palpitations. No productive cough. Denies nausea, vomiting, abdominal pain, diarrhea, or urinary discomfort. They have been up out of bed and ambulating to the bathroom without any difficulty. Objective: Vitals (See below) General: Was laying in bed with BiPAP mask in place removed upon my arrival. Reports her breathing is doing better, appears comfortable, is awake, alert and oriented 3 HEENT: NC, AT CVS: +S1S2 Lungs: Again, her air entry appears to be fair bilaterally without any appreciated wheezing, rhonchi or crackles Abdomen: Her abdomen remains soft, obese, nondistended, without any significant tenderness Extremities: LE are without edema, - Calf tenderness Imaging: CXR 06/22: Increased density right base medially consistent with pneumonia. Otherwise no acute disease.. Duplex US 06/22: Negative bilateral in lower extremity duplex venous ultrasound. No evidence of deep vein thrombosis. Chest CT 06/22: New bibasilar discoid atelectatic changes. No acute infiltrate seen. Stable left lower lobe nodules. Vascular calcification. Assessment and plan: Acute on Chronic hypoxic respiratory failure - possibly 2/2 pneumonia, possibly 2/2 COPD exacerbation, possibly 2/2 CHF - Patient reports her breathing is doing better since admission - BNP not significantly elevated - Leukocytosis - possibly 2/2 corticosteroid use - s/p Lactic acidosis - PCT negative - Blood cultures 06/22: Negative at 24 hours - MRSA undetected - CXR / CT noted above - s/p Vancomycin and Zosyn in the ER; c/w Levofloxacin (Day #3 of 5) - c/w incentive spirometry / acapella / Mucinex Chronic Diastolic CHF - See above - Remains negative fluid balanced - c/w Torsemide COPD - See above - s/p Solumedrol - c/w Prednisone; will reduce dose and provide taper on discharge - c/w inhaled therapy as ordered s/p Lactic acidosis SUYAPA on BIPAP - Allow home BIPAP use while inpatient HTN - BP well controlled - c/w Bisoprolol with hold parameters CAD - Hx of [place] 2010; No stent - c/w ASA 81, Atorvastatin DLP - c/w Atorvastatin IDDM2 with Neuropathy - c/w ISS - c/w Gabapentin Hypothyroidism - c/w Levothyroxine Bipolar / Depression / Anxiety - c/w Fluoxetine / Alprazolam Chronic back pain - c/w [place] PRN Chronic hypomagnesemia - c/w supplementation Vitamin D deficiency - c/w supplementation GERD - c/w Calcium Carbonate PRN - c/w Omeprazole DVT prophylaxis - c/w Lovenox Disposition: - Patient is approaching medical clearance VSAnt, I+O VSAnt I+O Laboratory Tests 06/24/20 08:19 Vital Signs Date Time Temp Pulse Resp B/P (MAP) Pulse Ox O2 Delivery O2 Flow Rate FiO2 06/24/20 06:00 98.4 87 18 132/83 (99) 95 Nasal Cannula 3.0 I&O- Last 24 Hours up to 6 AM 06/24/20 06:00 Intake Total 2100 ml Output Total 7500 ml Balance -5400 ml DANELLE KHAN MD Jun 24, 2020 09:34
[2020-06-24] MEDS: HumaLOG INSULIN (NovoLOG) PER UNIT SC SCH ×4 (09:35→20:24)
[2020-06-24] MEDS: ENOXAPARIN 40MG/0.4ML SYRINGE (J1650 PER 10MG) SC SCH (09:35)
[2020-06-24] MEDS: LEVEMIR (INSULIN DETEMIR) 1 UNITS/0.01ML SC SCH ×2 (09:36→20:24)
[2020-06-24] MEDS: POTASSIUM CHLORIDE 10 MEQ SR TABLET PO SCH (09:36)
[2020-06-24] MEDS: ATORVASTATIN 20 MG TAB PO SCH (09:37)
[2020-06-24] MEDS: VITAMIN D 1,000 INTERNATIONAL UNITS TABLET PO SCH (09:38)
[2020-06-24] MEDS: BISOPROLOL FUM 2.5 MG PER 1/2TAB PO SCH (09:39)
[2020-06-24] MEDS: OMEPRAZOLE 20 MG CAP PO SCH ×2 (09:40→20:23)
[2020-06-24] MEDS: FLUoxetine 20 MG CAP PO SCH (09:40)
[2020-06-24] MEDS: ASPIRIN 81 MG ENTERIC TAB PO SCH (09:41)
[2020-06-24] MEDS: guaiFENesin ER 600 MG TAB PO SCH ×2 (09:41→20:23)
[2020-06-24] MEDS: MULTIVITAMINS/MINERALS THERAP 1 TAB PO SCH (09:41)
[2020-06-24] MEDS: FLUoxetine 10 MG CAP PO SCH (09:42)
[2020-06-24 09:56] LABS: ALBUMIN 3.5 GM/DL (3.2-5.2); ALT/SGPT 71 U/L (12-78); BILIRUBIN,DIRECT 0.2 MG/DL (0.0-0.2); BILIRUBIN,TOTAL 0.4 MG/DL (0.2-1.0); TOTAL PROTEIN 6.5 GM/DL (6.4-8.2)
[2020-06-24] MEDS ORDERED: POTASSIUM CHLORIDE 10 MEQ SR TABLET PO ONE (10:00)
[2020-06-24] MEDS: predniSONE 20 MG TAB PO SCH (11:48)
[2020-06-24] MEDS: TORSEMIDE 100 MG TAB PO SCH (11:48)
[2020-06-24 14:00] VITALS: BP 133/80
[2020-06-24] MEDS: NORCO, ANEXSIA 5/325MG TABLET (HYDROcodone/ACETAMINOPHEN) PO PRN (14:17)
[2020-06-24] MEDS: LevoFLOXacin IV 750 MG in IV 1 EA IV SCH (17:21)
[2020-06-24] MEDS: MAGNESIUM OXIDE 400 MG TAB (MAG-OX) PO SCH (20:23)
[2020-06-24 22:00] VITALS: BP 130/82
[2020-06-25] MEDS: IPRATROPIUM 0.5MG/ALBUTEROL 2.5MG INH SOL UD 3ML (DUONEB) NEB SCH ×4 (01:44→19:48)
[2020-06-25 06:00] VITALS: BP 134/77
[2020-06-25] MEDS: LEVOTHYROXINE 25MCG TABLET (0.025MG) PO SCH (06:05)
[2020-06-25 06:40] LABS: BASO # 0.1 10^3/uL (0.0-0.2); BASO % 0.6 % (0.0-1.0); EOS # 0.1 10^3/uL (0.0-0.5); EOS % 0.6 % (0.0-3.0); HEMATOCRIT 37.4 % (36.0-47.0); HEMOGLOBIN 11.2 g/dl (12.0-15.5); LYMPH # 1.8 10^3/uL (1.5-5.0); LYMPH % 17.5 % (24.0-44.0); MEAN CORPUSCULAR HEMOGLOBIN 26.4 pg (27.0-33.0); MEAN CORPUSCULAR HGB CONC 29.9 g/dl (32.0-36.5); MEAN CORPUSCULAR VOLUME 88.2 fl (80.0-96.0); MONO # 0.9 10^3/uL (0.0-0.8); MONO % 8.5 % (0.0-5.0); NEUTROPHILS # 7.4 10^3/uL (1.5-8.5); PLATELET COUNT, AUTOMATED 379 10^3/uL (150-450); RED BLOOD COUNT 4.24 10^6/uL (4.00-5.40); WHITE BLOOD COUNT 10.4 10^3/uL (4.0-10.0)
[2020-06-25 07:06] LABS: BLOOD UREA NITROGEN 22 MG/DL (7-18); CALCIUM LEVEL 8.5 MG/DL (8.8-10.2); CARBON DIOXIDE LEVEL 42 MEQ/L (21-32); CHLORIDE LEVEL 89 MEQ/L (98-107); CREATININE FOR GFR 0.78 MG/DL (0.55-1.30); GLOMERULAR FILTRATION RATE > 60.0 (>45); GLUCOSE, FASTING 242 MG/DL (70-100); SODIUM LEVEL 137 MEQ/L (136-145)
[2020-06-25] MEDS: ADVAIR HFA 115/21MCG INHALER INH SCH ×2 (08:27→19:48)
[2020-06-25] MEDS: HumaLOG INSULIN (NovoLOG) PER UNIT SC SCH ×4 (08:50→21:28)
[2020-06-25] MEDS: KCL 10MEQ/100ML SWI (KRUN) 10 MEQ in IV 1 EA IV SCH ×2 (08:50→11:10)
[2020-06-25] MEDS: POTASSIUM CHLORIDE 10 MEQ SR TABLET PO SCH (08:51)
[2020-06-25] MEDS: ATORVASTATIN 20 MG TAB PO SCH (08:51)
[2020-06-25] MEDS: FLUoxetine 20 MG CAP PO SCH (08:51)
[2020-06-25] MEDS: FLUoxetine 10 MG CAP PO SCH (08:51)
[2020-06-25] MEDS: LEVEMIR (INSULIN DETEMIR) 1 UNITS/0.01ML SC SCH ×2 (08:51→21:29)
[2020-06-25] MEDS: ALPRAZolam 0.5 MG TAB PO SCH ×2 (08:52→21:28)
[2020-06-25] MEDS: SIMETHICONE 80 MG CHEW TAB PO SCH ×3 (08:52→18:00)
[2020-06-25] MEDS: MULTIVITAMINS/MINERALS THERAP 1 TAB PO SCH (08:52)
[2020-06-25] MEDS: BISOPROLOL FUM 2.5 MG PER 1/2TAB PO SCH (08:52)
[2020-06-25] MEDS: OMEPRAZOLE 20 MG CAP PO SCH ×2 (08:52→21:28)
[2020-06-25] MEDS: ASPIRIN 81 MG ENTERIC TAB PO SCH (08:52)
[2020-06-25] MEDS: VITAMIN D 1,000 INTERNATIONAL UNITS TABLET PO SCH (08:52)
[2020-06-25] MEDS: predniSONE 20 MG TAB PO SCH (08:53)
[2020-06-25] MEDS: guaiFENesin ER 600 MG TAB PO SCH ×2 (08:53→21:28)
[2020-06-25] MEDS: ENOXAPARIN 40MG/0.4ML SYRINGE (J1650 PER 10MG) SC SCH (08:53)
[2020-06-25] MEDS: TORSEMIDE 100 MG TAB PO SCH (08:53)
[2020-06-25] MEDS: NORCO, ANEXSIA 5/325MG TABLET (HYDROcodone/ACETAMINOPHEN) PO PRN (12:00)
[2020-06-25 14:00] VITALS: BP 118/60
[2020-06-25] MEDS: LevoFLOXacin 750 MG TABLET PO SCH (18:00)
--- NOTE | 2020-06-25 21:13 | IPNPDOC ---
Subjective Date Seen The patient was seen on 06/25/20. Subjective Chief Complaint/HPI Patient is a 64 year old female here with dyspnea which may be secondary to COPD exacerbation vs CHF. This morning, she was feeling well. Denies chest pain or dyspnea. Plan to return to [facility] tomorrow Objective Physical Examination General Exam: Positive: Alert, Cooperative Eye Exam: Negative: Sclera icteric ENT Exam: Positive: Atraumatic Neck Exam: Positive: Supple Chest Exam: Positive: Clear to auscultation; Negative: Rales, Rhonchi, Wheezing Heart Exam: Positive: Rate Normal, Regular Rhythm Abdomen Exam: Positive: Normal bowel sounds, Soft; Negative: Tenderness Extremity Exam: Negative: Edema Neuro Exam: Positive: Normal Speech Psych Exam: Positive: Mood NL Assessment /Plan Assessment Patient is a 64 year old female here with dyspnea which may be secondary to COPD exacerbation vs CHF. Patient BNP has not been significantly elevated and her procalcitonin has been negative. She continues on PO antibiotics and PO diuretics. Plan for discharge tomorrow Plan/VTE VTE Prophylaxis Ordered?: Yes Plan 1. Acute on chronic hypoxemic respiratory failure -May be secondary to COPD exacerbation 2/2 pneumonia or CHF -Procalcitonin negative -BNP not significantly elevated -Continues with Levofloxacin (Day 4/5) -Continue IS, acapella, and mucinex 2. Diastolic CHF -Continue with Torsemide 3. COPD -S/P solumedrol -continue prednisone and inhaler therapy 4. SUYAPA on BIPAP -Continue BIPAP 5. HTN -Continue with bisoprolol 6. CAD -[place] in 2010, no stent -Continue with aspirin and atorvastatin 7. Diabetes mellitus with neuropathy -Insulin sliding scale -Continue gabapentin 8. Hypothyroidism -Continue levothyroxine 9. Bipolar/Depression/Anxiety -continue Fluxetine and alprazolam 10. Chronic back pain -continue norco as needed 11. DVT ppx -Lovenox Disposition: Plan to return to [facility] tomorrow VS, I&O, 24H, Fishbone Vital Signs/I&O Vital Signs Date Time Temp Pulse Resp B/P (MAP) Pulse Ox O2 Delivery O2 Flow Rate FiO2 06/25/20 14:00 97.4 86 20 118/60 (79) 98 NIPPV (BIPAP/CPAP) 06/25/20 12:54 3.0 I&O- Last 24 Hours up to 6 AM 06/25/20 06:00 Intake Total 2150 ml Output Total 4500 ml Balance -2350 ml Laboratory Data 24H LABS Laboratory Tests 2 06/25/20 06:10: Immature Granulocyte % (Auto) 1.8, Neutrophils (%) (Auto) 71.0H, Lymphocytes (%) (Auto) 17.5L, Monocytes (%) (Auto) 8.5H, Eosinophils (%) (Auto) 0.6, Basophils (%) (Auto) 0.6, Neutrophils # (Auto) 7.4, Lymphocytes # (Auto) 1.8, Monocytes # (Auto) 0.9H, Eosinophils # (Auto) 0.1, Basophils # (Auto) 0.1, Nucleated Red Blood Cells % (auto) 0.0, Anion Gap 6L, Glomerular Filtration Rate > 60.0, Calcium Level 8.5L, Magnesium Level 2.0 06/25/20 11:20: Lab Scanned Report Miscellaneous Lab 06/25/20 11:25: Bedside Glucose (Misc Panel) 337H 06/25/20 16:45: Bedside Glucose (Misc Panel) 416H CBC/BMP Laboratory Tests 06/25/20 06:10 Microbiology Microbiology 06/22/20 Respiratory Virus Panel (PCR) ([facility]) - Final, Complete 06/22/20 Blood Culture - Preliminary, Resulted No Growth after 72 hours. All specime... 06/22/20 Blood Culture - Preliminary, Resulted No Growth after 72 hours. All specime... BRIAN BROWN DO Jun 25, 2020 21:13
[2020-06-25] MEDS: MAGNESIUM OXIDE 400 MG TAB (MAG-OX) PO SCH (21:28)
[2020-06-25 22:00] VITALS: BP 122/63
[2020-06-26] MEDS: IPRATROPIUM 0.5MG/ALBUTEROL 2.5MG INH SOL UD 3ML (DUONEB) NEB SCH ×4 (00:29→19:36)
[2020-06-26] MEDS: NORCO, ANEXSIA 5/325MG TABLET (HYDROcodone/ACETAMINOPHEN) PO PRN ×2 (01:00→10:32)
[2020-06-26] MEDS: LEVOTHYROXINE 25MCG TABLET (0.025MG) PO SCH (05:58)
[2020-06-26 06:00] VITALS: BP 124/64
[2020-06-26 06:29] LABS: BASO # 0.1 10^3/uL (0.0-0.2); BASO % 0.7 % (0.0-1.0); EOS # 0.1 10^3/uL (0.0-0.5); EOS % 1.2 % (0.0-3.0); HEMOGLOBIN 11.4 g/dl (12.0-15.5); LYMPH # 1.9 10^3/uL (1.5-5.0); MEAN CORPUSCULAR HEMOGLOBIN 26.3 pg (27.0-33.0); MEAN CORPUSCULAR VOLUME 87.8 fl (80.0-96.0); MONO # 0.9 10^3/uL (0.0-0.8); MONO % 8.7 % (0.0-5.0); NEUTROPHILS # 7.3 10^3/uL (1.5-8.5); NEUTROPHILS % 69.2 % (36.0-66.0); PLATELET COUNT, AUTOMATED 363 10^3/uL (150-450); RED BLOOD COUNT 4.33 10^6/uL (4.00-5.40); WHITE BLOOD COUNT 10.5 10^3/uL (4.0-10.0)
[2020-06-26 06:57] LABS: BLOOD UREA NITROGEN 19 MG/DL (7-18); CALCIUM LEVEL 8.8 MG/DL (8.8-10.2); CARBON DIOXIDE LEVEL 43 MEQ/L (21-32); CHLORIDE LEVEL 93 MEQ/L (98-107); GLOMERULAR FILTRATION RATE > 60.0 (>45); GLUCOSE, FASTING 216 MG/DL (70-100); SODIUM LEVEL 139 MEQ/L (136-145)
[2020-06-26] MEDS: ADVAIR HFA 115/21MCG INHALER INH SCH ×2 (07:44→19:36)
[2020-06-26] MEDS ORDERED: LEVO750T13 PO (08:26)
[2020-06-26] MEDS ORDERED: PRED10TA2 PO (08:26)
[2020-06-26] MEDS ORDERED: TORS100T PO (08:29)
[2020-06-26] MEDS ORDERED: KLOR10TA76 PO (08:29)
[2020-06-26] MEDS ORDERED: POTASSIUM CHLORIDE 10 MEQ SR TABLET PO ONE (08:30)
[2020-06-26] MEDS: ATORVASTATIN 20 MG TAB PO SCH (08:47)
[2020-06-26] MEDS: VITAMIN D 1,000 INTERNATIONAL UNITS TABLET PO SCH (08:47)
[2020-06-26] MEDS: FLUoxetine 10 MG CAP PO SCH (08:48)
[2020-06-26] MEDS: FLUoxetine 20 MG CAP PO SCH (08:48)
[2020-06-26] MEDS: ASPIRIN 81 MG ENTERIC TAB PO SCH (08:48)
[2020-06-26] MEDS: SIMETHICONE 80 MG CHEW TAB PO SCH ×3 (08:48→17:36)
[2020-06-26] MEDS: MULTIVITAMINS/MINERALS THERAP 1 TAB PO SCH (08:48)
[2020-06-26] MEDS: BISOPROLOL FUM 2.5 MG PER 1/2TAB PO SCH (08:48)
[2020-06-26] MEDS: ENOXAPARIN 40MG/0.4ML SYRINGE (J1650 PER 10MG) SC SCH (08:49)
[2020-06-26] MEDS: TORSEMIDE 100 MG TAB PO SCH (08:49)
[2020-06-26] MEDS: guaiFENesin ER 600 MG TAB PO SCH ×2 (08:50→21:45)
[2020-06-26] MEDS: LEVEMIR (INSULIN DETEMIR) 1 UNITS/0.01ML SC SCH ×2 (08:50→21:44)
[2020-06-26] MEDS: HumaLOG INSULIN (NovoLOG) PER UNIT SC SCH ×4 (08:50→21:44)
[2020-06-26] MEDS: OMEPRAZOLE 20 MG CAP PO SCH ×2 (08:50→21:45)
[2020-06-26] MEDS: ALPRAZolam 0.5 MG TAB PO SCH ×2 (08:51→21:45)
--- NOTE | 2020-06-26 11:20 | IPNPDOC ---
Date Seen The patient was seen on 06/26/20. Progress Note SUBJECTIVE: Complains of reproducible pleuritic chest pain lasting for a few minutes without diaphoresis Epigastric discomfort, nausea, vomiting, fever, chills, cough. She denies any Shortness of breath. OBJECTIVE PHYSICAL EXAMINATION: VITAL SIGNS: Please see below. GENERAL: No distress. No use of respiratory accessory muscles HEENT: No stridor, carotid bruits, JVD or thyromegaly CARDIOVASCULAR: S1, S2, regular rate and rhythm RESPIRATORY: Diminished clear to auscultation. No wheezing or rales ABDOMINAL: Soft, obese, nontender, nondistended, positive bowel sounds EXTREMITIES: No cyanosis or clubbing LABORATORY DATA, IMAGING STUDIES, MICROBIOLOGY: Please see below. 06/22/20 CT CHEST: Comparison CT study of the chest 08 June 2019.. TECHNIQUE: Helical scanning is acquired. 3 mm axial images are generated. Coronal and sagittal MPR and coronal MIP images are generated. FINDINGS: Preliminary digital pyrotechnic assembler radiograph is unremarkable. There are nodular densities in the left lower lobe including a calcified granuloma posteromedially and a 6 mm noncalcified pleural based nodule in the left lower lobe laterally. These are unchanged from the 2017 prior study. On today's examination, there is a a small zone linear platelike atelectasis in the left lower lobe which is a new finding. There is discoid atelectasis in the right middle lobe which is less subtle and also new. No new infiltrate is seen. No pleural effusion is noted. There is some vascular calcification. No adenopathy or mass is seen in the hilar region. There is marked diffuse fatty infiltration of the liver. Low-density hypertrophy of the right adrenal gland is again noted. There clips in the gallbladder fossa. Mild scoliotic changes are seen in the thoracic spine. IMPRESSION: New bibasilar discoid atelectatic changes. No acute infiltrate seen. Stable left lower lobe nodules. Vascular calcification. <Electronically signed by Tristan Higgins > 06/22/20 9743 ASSESSMENT AND PLAN: 64-year-old female with history of SUYAPA on BiPAP, chronic hypoxic respiratory failure on 3 L of oxygen at home. COPD prednisone dependent, CAD, [place] in 2010 without stent, dyslipidemia, diastolic heart failure, insulin-dependent diabetes, bipolar disorder, hypothyroidism, depression, chronic back pain and reflux admitted on 06/22/2020, due to complaints of worsening shortness of breath and was noted to be 72% oxygen saturation at [facility] with a 7 pound weight gain. . She was admitted for diastolic congestive heart failure exacerbation, COPD exacerbation with acute on chronic hypoxic respiratory failure. Acute decompensated diastolic congestive heart failure with preserved systolic function -Admission weight was 105.1 kg. -Patient has been in negative balance for the past 4 days since admission with improvement in her respiratory status on torsemide daily -Placed on fluid restriction, strict I's and O's and daily weights with electrolyte monitoring and supplementation to keep potassium greater than 2.5, magnesium greater than 2 -Troponins were negative. -on aspirin and ZEBETA -She appears to be euvolemic. Pleuritic chest pain -Cardiac markers are Negative. EKG shows no acute ischemic changes -CT chest shows no pulmonary embolism . Acute on chronic hypoxic respiratory failure -Chronically at 3 L home oxygen -treated for CHF exacerbation with clinical improvement -Patient was also treated for possible pneumonia with Levaquin and COPD exacerbation. However, pro-calcitonin was negative and CT chest showed no consolidation or infiltrates -Incentive spirometry. Active bowel COPD exacerbation -Status post Solu-Medrol currently on tapering dose of prednisone, continued on bronchodilators SUYAPA on BiPAP -CPAP home settings , Hypertension -Controlled on Zebeta , CAD/CA in 2010. No stent -Troponin negative. EKG no acute ischemic changes Type 2 diabetes with neuropathy -Insulin-dependent, on sliding scale, consistent carbohydrate diet, on chronic gabapentin , Hypothyroidism on levothyroxine Bipolar disorder, depression, anxiety on fluoxetine and alprazolam , Chronic back pain on [place] as needed Disposition : Medically stable for hospital discharge anytime. awaiting PT clearance. lives at [facility]. VS, I&O, 24H, [facility] Vital Signs/I&O Vital Signs Date Time Temp Pulse Resp B/P (MAP) Pulse Ox O2 Delivery O2 Flow Rate FiO2 06/26/20 10:32 18 Nasal Cannula 3.0 06/26/20 08:48 82 124/64 06/26/20 06:00 97.6 97 I&O- Last 24 Hours up to 6 AM 06/26/20 06:00 Intake Total 1560 ml Output Total 3550 ml Balance -1990 ml Laboratory Data 24H LABS Laboratory Tests 2 06/25/20 11:20: Lab Scanned Report Miscellaneous Lab 06/25/20 11:25: Bedside Glucose (Misc Panel) 337H 06/25/20 16:45: Bedside Glucose (Misc Panel) 416H 06/25/20 21:19: Bedside Glucose (Misc Panel) 255H 06/26/20 06:06: Immature Granulocyte % (Auto) 2.2, Neutrophils (%) (Auto) 69.2H, Lymphocytes (%) (Auto) 18.0L, Monocytes (%) (Auto) 8.7H, Eosinophils (%) (Auto) 1.2, Basophils (%) (Auto) 0.7, Neutrophils # (Auto) 7.3, Lymphocytes # (Auto) 1.9, Monocytes # (Auto) 0.9H, Eosinophils # (Auto) 0.1, Basophils # (Auto) 0.1, Nucleated Red Blood Cells % (auto) 0.0, Anion Gap 3L, Glomerular Filtration Rate > 60.0, Calcium Level 8.8, Magnesium Level 2.0 CBC/BMP Laboratory Tests 06/26/20 06:06 Microbiology Microbiology 06/22/20 Respiratory Virus Panel (PCR) ([facility]) - Final, Complete 06/22/20 Blood Culture - Preliminary, Resulted No Growth after 72 hours. All specime... 06/22/20 Blood Culture - Preliminary, Resulted No Growth after 72 hours. All specime... DAMIR HURLEY MD Jun 26, 2020 11:19
[2020-06-26 12:07] LABS: CK-MB VALUE MASS < 1.0 NG/ML (<3.6); CPK CREATINE PHOSPHOKINASE 34 U/L (26-192); MB/CK RELATIVE INDEX 2.94 (< OR =4); TROPONIN I < 0.02 NG/ML (< 0.10)
[2020-06-26 14:00] VITALS: BP_SYST 122; BP_SYST 176; BP_DIAS 60; BP_DIAS 76
--- NOTE | 2020-06-26 15:58 | ECGEPIP ---
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 Electronically Signed on 06-26-2020 15:58:10 EST by Kyle Campos
[2020-06-26] MEDS: LevoFLOXacin 750 MG TABLET PO SCH (17:36)
[2020-06-26] MEDS: POTASSIUM CHLORIDE 10 MEQ SR TABLET PO SCH (21:45)
[2020-06-26] MEDS: MAGNESIUM OXIDE 400 MG TAB (MAG-OX) PO SCH (21:45)
[2020-06-26 22:00] VITALS: BP 117/57
[2020-06-27] MEDS: IPRATROPIUM 0.5MG/ALBUTEROL 2.5MG INH SOL UD 3ML (DUONEB) NEB SCH ×2 (01:20→07:15)
[2020-06-27 06:00] VITALS: BP 144/87
[2020-06-27] MEDS: LEVOTHYROXINE 25MCG TABLET (0.025MG) PO SCH (06:00)
[2020-06-27 06:35] LABS: BASO # 0.1 10^3/uL (0.0-0.2); BASO % 0.7 % (0.0-1.0); EOS # 0.1 10^3/uL (0.0-0.5); EOS % 1.3 % (0.0-3.0); HEMATOCRIT 38.1 % (36.0-47.0); HEMOGLOBIN 11.5 g/dl (12.0-15.5); LYMPH # 1.8 10^3/uL (1.5-5.0); MEAN CORPUSCULAR HEMOGLOBIN 26.5 pg (27.0-33.0); MEAN CORPUSCULAR HGB CONC 30.2 g/dl (32.0-36.5); MEAN CORPUSCULAR VOLUME 87.8 fl (80.0-96.0); MONO # 0.8 10^3/uL (0.0-0.8); NEUTROPHILS # 7.5 10^3/uL (1.5-8.5); NEUTROPHILS % 70.8 % (36.0-66.0); PLATELET COUNT, AUTOMATED 354 10^3/uL (150-450); RED BLOOD COUNT 4.34 10^6/uL (4.00-5.40); WHITE BLOOD COUNT 10.5 10^3/uL (4.0-10.0)
[2020-06-27 06:57] LABS: BLOOD UREA NITROGEN 18 MG/DL (7-18); CARBON DIOXIDE LEVEL 38 MEQ/L (21-32); CHLORIDE LEVEL 96 MEQ/L (98-107); CREATININE FOR GFR 0.67 MG/DL (0.55-1.30); GLOMERULAR FILTRATION RATE > 60.0 (>45); GLUCOSE, FASTING 232 MG/DL (70-100); POTASSIUM SERUM 3.4 MEQ/L (3.5-5.1); SODIUM LEVEL 140 MEQ/L (136-145)
[2020-06-27] MEDS: ADVAIR HFA 115/21MCG INHALER INH SCH (07:14)
[2020-06-27] MEDS: ENOXAPARIN 40MG/0.4ML SYRINGE (J1650 PER 10MG) SC SCH (09:00)
--- NOTE | 2020-06-27 09:18 | ECHO ---
DATE OF PROCEDURE: 06/25/2020 Age: 64 Gender: Female Height: 155 cm Weight: 105 kg REFERRING PHYSICIAN: Dr. Juan Diego Biswas. INDICATION: Dyspnea, unspecified. MEASUREMENTS: 2D Measurements: Intraventricular septum 0.92 cm Posterior wall 0.85 cm Left ventricle diastole 5.4 cm Aortic root 2.9 cm Left atrium 3.5 cm Left atrium volume index 17 cm Doppler Measurements: No aortic stenosis No aortic regurgitation Aortic valve velocity 139 cm/s LVOT velocity 83.6 cm/s No mitral regurgitation No mitral stenosis Mitral E velocity 75.8 cm/s Mitral A velocity 94.7 cm/s Mitral deceleration time 280 msec No tricuspid regurgitation No pulmonic regurgitation Pulmonary artery acceleration time 100 msec MITRAL ANNULAR TISSUE DOPPLER E prime lateral 6.0 cm/s, E prime septal 5.4 cm/s DESCRIPTION: Rhythm was sinus. This was a moderately technically difficult echocardiogram. No pericardial effusion. This was a 2D, M-mode, color flow Doppler, and pulsed wave Doppler examination including mitral annular tissue Doppler. CONCLUSIONS: 1. Normal left ventricle internal dimensions and wall thickness. Normal regional LV wall motion and wall thickening. Normal LV systolic function. LVEF 70% by visual estimate. Grade 1 LV diastolic dysfunction (impaired relaxation filling pattern). Normal left atrial volume index. 2. Moderate right ventricle hypertrophy with normal right ventricle size. Prominent moderator band of the right ventricle. Normal right ventricle systolic function. This is suggestive of mild elevation of pulmonary artery systolic pressure. 3. Moderate aortic valve sclerosis of a 3-cusp aortic valve. No aortic stenosis or regurgitation. 4. Moderate mitral annular calcification. No mitral stenosis or regurgitation. 5. Moderately technically difficult echocardiogram. 6. Otherwise unremarkable appearing echocardiogram Doppler findings. MTDD
[2020-06-27] MEDS: LEVEMIR (INSULIN DETEMIR) 1 UNITS/0.01ML SC SCH (09:23)
[2020-06-27] MEDS: ASPIRIN 81 MG ENTERIC TAB PO SCH (09:24)
[2020-06-27] MEDS: HumaLOG INSULIN (NovoLOG) PER UNIT SC SCH ×2 (09:24→12:26)
[2020-06-27] MEDS: ALPRAZolam 0.5 MG TAB PO SCH (09:24)
[2020-06-27] MEDS: FLUoxetine 20 MG CAP PO SCH (09:24)
[2020-06-27] MEDS: OMEPRAZOLE 20 MG CAP PO SCH (09:25)
[2020-06-27] MEDS: ATORVASTATIN 20 MG TAB PO SCH (09:25)
[2020-06-27] MEDS: SIMETHICONE 80 MG CHEW TAB PO SCH ×2 (09:25→12:26)
[2020-06-27] MEDS: MULTIVITAMINS/MINERALS THERAP 1 TAB PO SCH (09:25)
[2020-06-27] MEDS: guaiFENesin ER 600 MG TAB PO SCH (09:25)
[2020-06-27] MEDS: POTASSIUM CHLORIDE 10 MEQ SR TABLET PO SCH (09:25)
[2020-06-27 09:26] VITALS: BP 144/87
[2020-06-27] MEDS: VITAMIN D 1,000 INTERNATIONAL UNITS TABLET PO SCH (09:26)
[2020-06-27] MEDS: BISOPROLOL FUM 2.5 MG PER 1/2TAB PO SCH (09:26)
[2020-06-27] MEDS: TORSEMIDE 100 MG TAB PO SCH (09:26)
[2020-06-27] MEDS: FLUoxetine 10 MG CAP PO SCH (09:26)
[2020-06-27] MEDS: NORCO, ANEXSIA 5/325MG TABLET (HYDROcodone/ACETAMINOPHEN) PO PRN (12:20)
[2020-06-27] MEDS ORDERED: INSUDET SC (12:36)
[2020-06-27] MEDS ORDERED: [UNRECOGNIZED DRUG - CODE] XX (12:37)
[2020-06-27] MEDS ORDERED: LANC1COM MC (12:39)
[2020-06-27] MEDS ORDERED: [UNRECOGNIZED DRUG - OTHER] XX (12:39)
[2020-06-27] MEDS ORDERED: CARE1KIT XX (12:39)
--- NOTE | 2020-06-27 12:46 | DS.PDOC ---
Discharge Summary General Date of Admission Jun 22, 2020 at 14:18 Date of Discharge 06/27/20 Discharge Summary DISCHARGE DIAGNOSES: Acute diastolic congestive heart failure exacerbation, with preserved systolic function ejection fraction 70%(admission weight 106.5, discharge weight 104) acute on chronic hypoxic respiratory failure on 3liters home oxygen at baseline Acute COPD exacerbation Chronic left lower lobe pulmonary nodules Mild pulmonary hypertension Obesity, BMI of 38.4 Obstructive sleep apnea on CPAP Hypokalemia Steroid-induced hyperglycemia DISCHARGE MEDICATIONS: Please see below. ALLERGIES: Please see below. DISCHARGE INSTRUCTIONS: pcp, executive services administrator, folding rules printing machine operator fu within 1 wk. 2liter fluid restriction, daily weights. call your folding rules printing machine operator if 2lb weight gain or higher HOSPITAL COURSE: 64-year-old female with history of SUYAPA on BiPAP, chronic hypoxic respiratory failure on 3 L of oxygen at home. COPD prednisone dependent, CAD, [place] in 2010 without stent, dyslipidemia, diastolic heart failure, insulin-dependent diabetes, bipolar disorder, hypothyroidism, depression, chronic back pain and reflux admitted on 06/22/2020, due to complaints of worsening shortness of breath and was noted to be 72% oxygen saturation at [facility] with a 7 pound weight gain. She was admitted for diastolic congestive heart failure exacerbation, COPD exacerbation with acute on chronic hypoxic respiratory failure. Acute decompensated diastolic congestive heart failure with preserved systolic function EF 70% -Admission weight was 106.5 kg. -discharge weight was 104 kg -Patient has been in negative balance for the past 4 days since admission with improvement in her respiratory status on torsemide daily -Placed on fluid restriction, strict I's and O's and daily weights with electrolyte monitoring and supplementation to keep potassium greater than 2.5, magnesium greater than 2 -Troponins were negative. -on aspirin and ZEBETA -She appears to be euvolemic at hospital discharge. Pleuritic chest pain -Cardiac markers are Negative. EKG shows no acute ischemic changes -CT chest shows no pulmonary embolism . Acute on chronic hypoxic respiratory failure -Chronically at 3 L home oxygen -treated for CHF exacerbation with clinical improvement -Patient was also treated for copd exacerbation with steroids and Levaquin However, pro-calcitonin was negative and CT chest showed no consolidation or infiltrates -Incentive spirometry. COPD exacerbation -Status post Solu-Medrol currently on tapering dose of prednisone, continued on bronchodilators -developed steroid-induced hyperglycemia SUYAPA on BiPAP -CPAP home settings Hypertension -Controlled on Zebeta CAD/OR in 2010. No stent -Troponin negative. EKG no acute ischemic changes Type 2 diabetes with neuropathy/steroid induced hyperglycemia -Insulin-dependent, on sliding scale, consistent carbohydrate diet, on chronic gabapentin -started on levemir insulin increased to 13 units sq bid Hypothyroidism on levothyroxine Bipolar disorder, depression, anxiety on fluoxetine and alprazolam Chronic back pain on [place] as needed disposition: medically stable for hospital discharge. immediate fu with pcp within 1 wk for glucose check, and chf mgt. PHYSICAL EXAMINATION ON DISCHARGE: VITAL SIGNS: Please see below. GENERAL: No distress. No use of respiratory accessory muscles HEENT: No stridor, carotid bruits, JVD or thyromegaly CARDIOVASCULAR: S1, S2, regular rate and rhythm RESPIRATORY: Diminished clear to auscultation. No wheezing or rales ABDOMINAL: Soft, obese, nontender, nondistended, positive bowel sounds EXTREMITIES: No cyanosis or clubbing LABORATORY DATA: Please see below. IMAGING: CT CHEST: INDICATION: SOB / Cough. COMPARISON: Comparison CT study of the chest 08 June 2019.. TECHNIQUE: Helical scanning is acquired. 3 mm axial images are generated. Coronal and sagittal MPR and coronal MIP images are generated. FINDINGS: Preliminary digital meeting specialist radiograph is unremarkable. There are nodular densi ties in the left lower lobe including a calcified granuloma posteromedially and a 6 mm noncalcified pleural based nodule in the left lower lobe laterally. These are unchanged from the 2017 prior study. On today's examination, there is a a small zone linear platelike atelectasis in the left lower lobe which is a new finding. There is discoid atelectasis in the right middle lobe which is less subtle and also new. No new infiltrate is seen. No pleural effusion is noted. There is some vascular calcification. No adenopathy or mass is seen in the hilar region. There is marked diffuse fatty infiltration of the liver. Low-density hypertrophy of the right adrenal gland is again noted. There clips in the gallbladder fossa. Mild scoliotic changes are seen in the thoracic spine. IMPRESSION: New bibasilar discoid atelectatic changes. No acute infiltrate seen. Stable left lower lobe nodules. Vascular calcification. <Electronically signed by Tristan Higgins > 06/22/20 1451 VENOUS DOPPLERS OF B/L LOWER EXTREMITIES: TECHNIQUE: Bilateral lower extremity duplex venous ultrasound. FINDINGS: The deep veins are anechoic and fully compressible from the groin to the popliteal fossa in the left and right lower extremity. Color flow imaging is homogeneous. Spectral Doppler interrogation demonstrates intact respiratory variation in flow and normal manual augmentation of flow. There is no evidence of deep vein thrombosis IMPRESSION: Negative bilateral in lower extremity duplex venous ultrasound. No evidence of deep vein thrombosis. <Electronically signed by Tristan Higgins > 06/22/20 1407 ECHOCARDIOGRAM: DATE OF PROCEDURE: 06/25/2020 Age: 64 Gender: Female Height: 155 cm Weight: 105 kg REFERRING PHYSICIAN: Dr. Juan Diego Biswas. INDICATION: Dyspnea, unspecified. MEASUREMENTS: 2D Measurements: Intraventricular septum 0.92 cm Posterior wall 0.85 cm Left ventricle diastole 5.4 cm Aortic root 2.9 cm Left atrium 3.5 cm Left atrium volume index 17 cm Doppler Measurements: No aortic stenosis No aortic regurgitation Aortic valve velocity 139 cm/s LVOT velocity 83.6 cm/s No mitral regurgitation No mitral stenosis Mitral E velocity 75.8 cm/s Mitral A velocity 94.7 cm/s Mitral deceleration time 280 msec No tricuspid regurgitation No pulmonic regurgitation Pulmonary artery acceleration time 100 msec MITRAL ANNULAR TISSUE DOPPLER E prime lateral 6.0 cm/s, E prime septal 5.4 cm/s DESCRIPTION: Rhythm was sinus. This was a moderately technically difficult echocardiogram. No pericardial effusion. This was a 2D, M-mode, color flow Doppler, and pulsed wave Doppler examination including mitral annular tissue Doppler. CONCLUSIONS: 1. Normal left ventricle internal dimensions and wall thickness. Normal regional LV wall motion and wall thickening. Normal LV systolic function. LVEF 70% by visual estimate. Grade 1 LV diastolic dysfunction (impaired relaxation filling pattern). Normal left atrial volume index. 2. Moderate right ventricle hypertrophy with normal right ventricle size. Prominent moderator band of the right ventricle. Normal right ventricle systolicfunction. This is suggestive of mild elevation of pulmonary artery systolic pressure. 3. Moderate aortic valve sclerosis of a 3-cusp aortic valve. No aortic stenosisor regurgitation. 4. Moderate mitral annular calcification. No mitral stenosis or regurgitation. 5. Moderately technically difficult echocardiogram. 6. Otherwise unremarkable appearing echocardiogram Doppler findings. DD: Kyle Campos MD [facility] 06/25/202129 DT: REBECA 06/26/20 1222 TIME SPENT ON DISCHARGE: 30 minutes. Vital Signs/I&Os Vital Signs Date Time Temp Pulse Resp B/P (MAP) Pulse Ox O2 Delivery O2 Flow Rate FiO2 06/26/20 14:00 97.7 72 18 122/60 (80) 96 Nasal Cannula 3.0 I&O- Last 24 Hours up to 6 AM 06/26/20 06:00 Intake Total 1560 ml Output Total 3550 ml Balance -1990 ml Laboratory Data Labs 24H Laboratory Tests 2 06/25/20 21:19: Bedside Glucose (Misc Panel) 255H 06/26/20 06:06: Immature Granulocyte % (Auto) 2.2, Neutrophils (%) (Auto) 69.2H, Lymphocytes (%) (Auto) 18.0L, Monocytes (%) (Auto) 8.7H, Eosinophils (%) (Auto) 1.2, Basophils (%) (Auto) 0.7, Neutrophils # (Auto) 7.3, Lymphocytes # (Auto) 1.9, Monocytes # (Auto) 0.9H, Eosinophils # (Auto) 0.1, Basophils # (Auto) 0.1, Nucleated Red Blood Cells % (auto) 0.0, Anion Gap 3L, Glomerular Filtration Rate > 60.0, Calcium Level 8.8, Magnesium Level 2.0 06/26/20 11:10: Total Creatine Kinase 34, Creatine Kinase MB < 1.0, Creatine Kinase MB Relative Index 2.94, Troponin I < 0.02 06/26/20 11:26: Bedside Glucose (Misc Panel) 376H CBC/BMP Laboratory Tests 06/26/20 06:06 FSBS Laboratory Tests Test 06/25/20 21:19 06/26/20 11:26 Range/Units Bedside Glucose (Misc Panel) 255 376 80-115 MG/DL Microbiology Microbiology 06/22/20 Respiratory Virus Panel (PCR) ([facility]) - Final, Complete 06/22/20 Blood Culture - Preliminary, Resulted No Growth after 72 hours. All specime... 06/22/20 Blood Culture - Preliminary, Resulted No Growth after 72 hours. All specime... Discharge Medications Scheduled Alprazolam (Alprazolam) 0.5 Mg Tablet, 0.5 MG PO BID, (Reported) Aspirin (Aspirin EC) 81 Mg Tablet.dr, 81 MG PO DAILY, (Reported) Atorvastatin Calcium (Lipitor) 80 Mg Tab, 80 MG PO DAILY, (Reported) Bisoprolol Fumarate (Bisoprolol Fumarate) 5 Mg Tab, 2.5 MG PO DAILY, (Reported) Cholecalciferol (Vitamin D3) (Vitamin D3) 1,000 Unit Tablet, 5,000 UNITS PO DAILY, (Reported) TAKES AT LUNCH Fluoxetine Hcl (Fluoxetine HCl) 20 Mg Capsule, 20 MG PO DAILY, (Reported) WITH 10MG FOR A TOTAL OF 30MG Fluoxetine Hcl (Fluoxetine HCl) 10 Mg Capsule, 10 MG PO DAILY, (Reported) WITH 20MG FOR A TOTAL OF 30MG Gabapentin (Gabapentin) 600 Mg Tablet, 600 MG PO TID, (Reported) Glipizide (Glipizide ER) 5 Mg Tab.er.24, 5 MG PO WM, (Reported) Ipratropium/Albuterol Sulfate (Iprat-Albut 0.5-3(2.5) mg/3 ml) 3 Ml Ampul.neb, 1 VIAL INH QID, (Reported) Levofloxacin (Levofloxacin) 750 Mg Tablet, 750 MG PO DAILY@1800 Levothyroxine Sodium (Levoxyl) 25 Mcg Tab, 25 MCG PO QAM, (Reported) Linagliptin (Tradjenta) 5 Mg Tablet, 5 MG PO DAILY, (Reported) Magnesium Oxide (Magnesium Oxide) 400 Mg Tablet, 400 MG PO QHS, (Reported) Menthol/Zinc Oxide (Gold Tavares Medicated Body Powdr) 113 Gm Powder, 1 APPLIC TOP BID, (Reported) APPLY TO SKIN FOLDS Multivitamins (Thera M Plus Tablet) 1 Each Tablet, 1 TAB PO DAILY, (Reported) Omeprazole (Omeprazole) 20 Mg Capsule.dr, 20 MG PO BID, (Reported) Potassium Chloride (Klor-Con M10) 10 Meq Tab.er.prt, 40 MEQ PO DAILY Prednisone (Prednisone) 10 Mg Tablet, 10 MG PO DAILY, (Reported) Prednisone (Prednisone) 10 Mg Tablet, 10 MG PO TAPER Take 4 tabs daily x 3 days, then 3 tabs daily x 3 days, then 2 tabs daily x 3 days, then 1 tab daily x 3 days and stop Salmeterol/Fluticasone (Advair 250-50 Diskus) 1 Each Blst.w.dev, 1 PUFF INH BID, (Reported) Simethicone (Simethicone) 80 Mg Tab.chew, 80 MG PO WM, (Reported) Torsemide (Torsemide) 100 Mg Tablet, 100 MG PO DAILY Umeclidinium [place] (Incruse Ellipta) 62.5 Mcg Blst.w.dev, 1 PUFF INH DAILY, (Reported) Scheduled PRN Acetaminophen (Acetaminophen 8 Hour) 650 Mg Tablet.er, 650 MG PO BID PRN for PAIN, (Reported) Albuterol Sulfate (Ventolin Hfa) 108 Mcg/Act Aer, 2 PUFFS INH Q4H PRN for SHORTNESS OF BREATH, (Reported) Alprazolam (Alprazolam) 0.5 Mg Tablet, 0.5 MG PO DAILY PRN for ANXIETY, (Reported) Calcium Carbonate (Tums) 200 Mg Tab.chew, 500 MG PO QID PRN for HEARTBURN, (Reported) Diclofenac Sodium (Voltaren) 100 Gm Gel..gram., 4 GRAM TOP TID PRN for PAIN, (Reported) APPLY TO AREAS OF PAIN. MAY SELF-ADMINISTER Hydrocodone/Acetaminophen (Hydrocodone-Acetamin 5-325 mg) 1 Each Tablet, 1 TAB PO BID PRN for PAIN, (Reported) Ipratropium/Albuterol Sulfate (Iprat-Albut 0.5-3(2.5) mg/3 ml) 3 Ml Ampul.neb, 1 VIAL INH Q6H PRN for SHORTNESS OF BREATH, (Reported) Lidocaine HCl (Aspercreme) 4% Cream..g., 1 DOSE TOP QID PRN for PAIN, (Reported) APPLY TO ANY PAINFUL AREAS Milk Of Magnesia (Milk of Magnesia) 2,400 Mg/10 Ml Oral.susp, 10 ML PO DAILY PRN for CONSTIPATION, (Reported) Nystatin (Nystatin Powder) 15 Gm Powder, 1 DOSE TOP BID PRN for ITCH/RASH, (Reported) USES UNDER BREASTS Allergies Coded Allergies: dapagliflozin (Verified Allergy, Mild, Sores, 05/27/20) Cat Dander (Verified Allergy, Unknown, 05/27/20) Dust (Verified Allergy, Unknown, 05/27/20) DAMIR HURLEY MD Jun 26, 2020 17:02
[2020-06-27] MEDS ORDERED: LEVEMIR (INSULIN DETEMIR) 1 UNITS/0.01ML SC SCH (21:00)
== END 2020-06-27 13:40 | DRG 291 ==
LOC: EDBD 11:12 → M ED 11:12 → M ED INP 14:18 → M PCU 16:15 → M MS5PR 06-23 13:20
PROVIDERS: ADMIT Internal Medicine; ATTEND General Practice
DX: I50.33 Acute on chronic diastolic (congestive) heart failure (principal); J96.21 Acute and chronic respiratory failure with hypoxia; J44.0 Chronic obstructive pulmonary disease with (acute) lower respiratory infection; E87.2 Acidosis; G47.33 Obstructive sleep apnea (adult) (pediatric); I25.10 Atherosclerotic heart disease of native coronary artery without angina pectoris; I25.2 Old myocardial infarction; E78.5 Hyperlipidemia, unspecified; E83.42 Hypomagnesemia; E55.9 Vitamin D deficiency, unspecified; E11.40 Type 2 diabetes mellitus with diabetic neuropathy, unspecified; E03.9 Hypothyroidism, unspecified; F41.9 Anxiety disorder, unspecified; M54.9 Dorsalgia, unspecified; J30.89 Other allergic rhinitis; F31.9 Bipolar disorder, unspecified; K21.9 Gastro-esophageal reflux disease without esophagitis; J30.81 Allergic rhinitis due to animal (cat) (dog) hair and dander; Z90.49 Acquired absence of other specified parts of digestive tract; Z87.891 Personal history of nicotine dependence; Z79.82 Long term (current) use of aspirin; Z79.52 Long term (current) use of systemic steroids; Z79.899 Other long term (current) drug therapy; Z88.8 Allergy status to other drugs, medicaments and biological substances; Z79.4 Long term (current) use of insulin; E66.9 Obesity, unspecified; Z68.34 Body mass index [BMI] 34.0-34.9, adult; R91.8 Other nonspecific abnormal finding of lung field

== ENCOUNTER → 2020-06-25 | Outpatient (REF) | payer MEDICARE, MEDICAID ==
[~2020-06-25] MED LIST changes: +CARE1KIT XX; +INSUDET SC; +KLOR10TA76 PO; +LANC1COM MC; +MAGN400T2 PO; +[UNRECOGNIZED DRUG - CODE] XX; +[UNRECOGNIZED DRUG - OTHER] XX
== END ==
PROVIDERS: ATTEND Internal Medicine
DX: Z20.822 Contact with and (suspected) exposure to COVID-19 (principal)

== ENCOUNTER → 2020-07-02 | Outpatient (REF) | payer MEDICARE, MEDICAID ==
[~2020-07-02] MED LIST changes: -LISI-542 PO; +LISI-898 PO; +SIME80CH5 PO; -SIME80TA PO
== END ==
PROVIDERS: ATTEND Internal Medicine
DX: Z20.822 Contact with and (suspected) exposure to COVID-19 (principal)

== ENCOUNTER 2020-07-09 07:32 | Emergency (ER) | payer MEDICARE, MEDICAID ==
[~2020-07-09] VITALS: Ht 165.1 cm; Wt 104.5 kg
[2020-07-09] MEDS ORDERED: COMBIVENT RESPIMAT 100-20MCG INHALER 4GM INH ONE (08:00)
[2020-07-09 08:12] LABS: BASO # 0.1 10^3/uL (0.0-0.2); BASO % 0.8 % (0.0-1.0); EOS # 0.2 10^3/uL (0.0-0.5); EOS % 1.2 % (0.0-3.0); HEMATOCRIT 38.5 % (36.0-47.0); HEMOGLOBIN 11.4 g/dl (12.0-15.5); LYMPH # 2.3 10^3/uL (1.5-5.0); MEAN CORPUSCULAR HEMOGLOBIN 25.7 pg (27.0-33.0); MEAN CORPUSCULAR HGB CONC 29.6 g/dl (32.0-36.5); MEAN CORPUSCULAR VOLUME 86.7 fl (80.0-96.0); MONO % 6.6 % (2.0-8.0); NEUTROPHILS # 10.7 10^3/uL (1.5-8.5); NEUTROPHILS % 73.1 % (36.0-66.0); PLATELET COUNT, AUTOMATED 424 10^3/uL (150-450); RED BLOOD COUNT 4.44 10^6/uL (4.00-5.40); WHITE BLOOD COUNT 14.6 10^3/uL (4.0-10.0)
[2020-07-09] MEDS ORDERED: methylPREDNISolone 125MG 2ML VIAL IV ONE (08:30)
[2020-07-09 08:38] LABS: ALBUMIN 3.3 GM/DL (3.2-5.2); ALT/SGPT 52 U/L (12-78); BILIRUBIN,DIRECT 0.1 MG/DL (0.0-0.2); BILIRUBIN,TOTAL 0.3 MG/DL (0.2-1.0); BLOOD UREA NITROGEN 19 MG/DL (7-18); CALCIUM LEVEL 8.9 MG/DL (8.8-10.2); CARBON DIOXIDE LEVEL 40 MEQ/L (21-32); CHLORIDE LEVEL 91 MEQ/L (98-107); CK-MB VALUE MASS < 1.0 NG/ML (<3.6); CPK CREATINE PHOSPHOKINASE 59 U/L (26-192); CREATININE FOR GFR 0.62 MG/DL (0.55-1.30); GLOMERULAR FILTRATION RATE > 60.0 (>45); GLUCOSE, FASTING 261 MG/DL (70-100); MB/CK RELATIVE INDEX 1.69 (< OR =4); NT-PRO BNP 87 PG/ML (<125); POTASSIUM SERUM 3.4 MEQ/L (3.5-5.1); SODIUM LEVEL 138 MEQ/L (136-145); TOTAL PROTEIN 6.7 GM/DL (6.4-8.2); TROPONIN I < 0.02 NG/ML (< 0.10)
[2020-07-09 08:44] LABS: ABG BASE EXCESS 11.5 (-2.0-2.0); ABG HCO3 38.3 MEQ/L (22.0-26.0); ABG O2 SATURATION 94.7 % (95.0-99.0); ABG PARTIAL PRESSURE O2 87.1 mmHg (75.0-100.0); ABG STANDARD HCO3 35.2 MEQ/L (22.0-26.0); ABG TOTAL CO2 40.2 MEQ/L (23.0-31.0); ABG pH (ARTERIAL) 7.408 UNITS (7.350-7.450)
[2020-07-09 08:47] LABS: ABG PARTIAL PRESSURE CO2 62.1 mmHg (35.0-45.0)
--- OUTSIDE RECORDS SUMMARY | 2020-07-09 08:47 | CCD ---
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 Name Role Phone Мария Astudillo Unavailable PROBLEMS Type Condition ICD9-CM Code QGV51-LT Code Onset Dates Condition S tatus SNOMED Code Notes Problem Mild hearing loss of right ear H91.91 Active 4 44366526 Problem Hyperlipidemia E78.5 Active 43845778 Problem Mild hearing loss of left ear H91.92 Active 47 4170527 Problem Tobacco abuse Z72.0 Active 00539379 Problem COPD (chronic obstructive pulmonary disease) J44.9 Active 12953702 Problem Cervical high risk HPV (human papillomavirus) test positiv e R87.810 Active 387520129 Problem Stress incontinence N39.3 Active 09098910 Problem Leukocytosis, unspecified type D72.829 Active 1 89765917 Problem COPD exacerbation J44.1 Active 003156024 Problem Type 2 diabetes mellitus wit hout complication, without long-term current use of insulin E11.9 Active 033705452 Problem Stress incontinence in female N39.3 Active 60 271174 Problem Fibromyalgia M79.7 Active 905077386 Problem Other chronic pain G89.29 Active 77104048 Problem Depression, unspecified depression type F32.9 Active 29810976 Problem Chronic GERD K21.9 Active 460218668 Problem Hypothyroidism (acquired) E03.9 Active 101534 002 Problem Chronic obstructive pulmonary disease, unspecified COPD ty pe J44.9 Active 16670003 Problem Oxygen dependent Z99.81 Active 647114136304 ALLERGIES Allergen (clinical drug ingredient) Drug/Non Drug Allergy do cumented on EMR Reaction Allergy Type Onset Date Status enviornmental Unknown Non Drug Allergy Activ e ENCOUNTERS from 1955 to 2020-06-22 Encounter Location Date Provider Diagnosis [facility] [address] [place] [id number] May, Мария Astudillo IMMUNIZATIONS Vaccine Route Administration [...] Unknown Language: Question Answer Notes Languages spoken: Arabic Sexual Hx: Question Answer Notes Had sex [...] two weeks for 15 day(s) May, Not-Taking [place] 5-325 MG 1 tablet as needed Orally [...] rose rs for 14 d Oct, Not-Taking PinchPointTouch Ultra II Test Strips - as directed [...] for 30 day(s) Mar, Not-Taking Nystatin Throat/Suspension 162010 UNIT/ML 5cc Mouth/Th roat four times daily [...] Information RESULTS No Results REASON FOR VISIT New Referral MEDICAL (GENERAL) HISTORY Type Description Date Medical History HTN Medical History Hyperlipidemia Medical History Severe COPD - Dr. Pacheco Medical History NSTEMI - 09/2012; [facility] by Dr. Mars - nonobstructive; Follows with [...] - 20 13 Medical History Depression - [facility] Medical History Fibromyalgia Medical History Anxiety Medical [...] & C Surgical History Colonoscopy - Dr. Saunders 2009 Surgical History Cardiac catheterization at [facility] [place] 201 3 Surgical History Echocardiogram - Marginal [...] Coverage Start Date Coverage End Date MEDICAID [place] [address] [facility] [address] MIGUEL NAQVI MEDICARE Part A and B [address] [facility] [id number] [phone] MIGUEL NAQVI self
--- OUTSIDE RECORDS SUMMARY | 2020-07-09 08:48 | CCD ---
Author Author [facility] Organization [facility] Address Unknown Phone Unavailable Care Team Providers Care Flavor Room Worker Name Role Phone Sada Marie MD Unavailable Unavailable Sada Marie MD Unavailable Unavailable Sada Marie MD Unavailable Unavailable Sada Marie MD Unavailable Unavailable CynthiaSada MD Unavailable Unavailable CharlestonSada MD Unavailable Unavailable CharlestonSada MD Unavailable Unavailable CynthiaSada MD Unavailable Unavailable CynthiaSada MD Unavailable Unavailable CynthiaSada MD Unavailable Unavailable CharlestonSada MD Unavailable Unavailable CharlestonSada MD Unavailable Unavailable CynthiaSada MD Unavailable Unavailable CynthiaSada MD Unavailable Unavailable CharlestonSada MD Unavailable Unavailable CynthiaSada MD Unavailable Unavailable CynthiaSada MD Unavailable Unavailable CynthiaSada MD Unavailable Unavailable CynthiaSada MD Unavailable Unavailable CynthiaSada MD Unavailable Unavailable CynthiaSada MD Unavailable Unavailable CynthiaSada MD Unavailable Unavailable CynthiaSada MD Unavailable Unavailable CynthiaSada MD Unavailable Unavailable CharlestonSada MD Unavailable Unavailable CynthiaSada MD Unavailable Unavailable CynthiaSada MD Unavailable Unavailable CynthiaSada MD Unavailable Unavailable CharlestonSada MD Unavailable Unavailable CynthiaSada MD Unavailable Unavailable CynthiaSada MD Unavailable Unavailable CynthiaSada MD Unavailable Unavailable CharlestonSada MD Unavailable Unavailable CynthiaSada MD Unavailable Unavailable CharlestonSada MD Unavailable Unavailable CharlestonSada MD Unavailable Unavailable CharlestonSada MD Unavailable Unavailable CharlestonSada MD Unavailable Unavailable CharlestonSada MD Unavailable Unavailable CynthiaSada zabala MD Unavailable Unavailable CharlestonSada MD Unavailable Unavailable CharlestonSada MD Unavailable Unavailable CynthiaSada MD Unavailable Unavailable CynthiaSada MD Unavailable Unavailable CharlestonSada MD Unavailable Unavailable CharlestonSada MD Unavailable Unavailable CharlestonSada zabala MD Unavailable Unavailable CharlestonSada MD Unavailable Unavailable CynthiaSada MD Unavailable Unavailable CharlestonSada MD Unavailable Unavailable CharlestonSada MD Unavailable Unavailable CharlestonSada MD Unavailable Unavailable CharlestonSada MD Unavailable Unavailable CharlestonSada MD Unavailable Unavailable CharlestonSada MD Unavailable Unavailable CharlestonSada MD Unavailable Unavailable CharlestonSada MD Unavailable Unavailable CynthiaSada MD Unavailable Unavailable CynthiaSada MD Unavailable Unavailable CynthiaSada zabala MD Unavailable Unavailable Sada Marie MD Unavailable Unavailable Sada Marie MD Unavailable Unavailable Sada Marie MD Unavailable Unavailable Sada Marie MD Unavailable Unavailable CynthiaSada zabala MD Unavailable Unavailable CharlestonSada zabala MD Unavailable Unavailable CharlestonSada zabala MD Unavailable Unavailable CynthiaSada zabala MD Unavailable Unavailable CynthiaSada zabala MD Unavailable Unavailable CynthiaSada zabala MD Unavailable Unavailable CynthiaSada zabala MD Unavailable Unavailable CynthiaSada zabala MD Unavailable Unavailable CynthiaSada zabala MD Unavailable Unavailable CharlestonSada zabala MD Unavailable Unavailable CynthiaSada zabala MD Unavailable Unavailable CharlestonSada zabala MD Unavailable Unavailable CynthiaSada zabala MD Unavailable Unavailable Sada Marie MD Unavailable Unavailable CharlestonSada zabala MD Unavailable Unavailable CharlestonSada zabala MD Unavailable Unavailable Sada Marie MD [...] Unavailable Nayan, L Nicole PA Unavailable Unavailable Nyaan, L Nicole PA Unavailable Unavailable Nayan, L [...] PICKERAL JR, J ZAHRA PA-C Unavailable Unavailable Nicholas ZHANG MD Unavailable Unavailable ZHANGNicholas Kendrick MD Unavailable Unavailable Nicholas ZHANG MD Unavailable Unavailable ZHANGNicholas Kendrick MD Unavailable Unavailable Nicholas ZHANG MD Unavailable Unavailable Nicholas ZHANG MD Unavailable Unavailable ZHANGNicholas Kendrick MD Unavailable Unavailable ZHANGNicohlas Kendrick MD Unavailable Unavailable ZHANGNicholas Kendrick MD [...] Unavailable Unavailable Nicholas ZHANG MD Unavailable Unavailable ZHANG, Nicholas SMITH MD Unavailable Unavailable ZHANG, Nicholas SMITH MD Unavailable Unavailable ZHANG, Nicholas SMITH MD Unavailable Unavailable ZHANG, E LUIS GIFFORD Unavailable Unavailable ZHANG, E LUIS GIFFORD Unavailable Unavailable ZHANG, E LUIS GIFFORD Unavailable Unavailable ZHANG, Nicholas SMITH MD Unavailable Unavailable ZHANG, Nicholas SMITH MD Unavailable Unavailable ZHANG, Nicholas SMITH MD Unavailable Unavailable ZHANG, Nicholas SMITH MD Unavailable Unavailable ZHANG, Nicholas SMITH MD Unavailable Unavailable ZHANG, Nicholas SMITH MD Unavailable Unavailable ZHANG, E LUIS GIFFORD Unavailable Unavailable ZHANG, Nicholas SMITH MD Unavailable [...] Unavailable Fish, B Greg GIFFORD Unavailable Unavailable Ren Tran MD Unavailable Unavailable Ren Tran MD Unavailable Unavailable Marc, Ren Garza MD Unavailable Unavailable Fish, Ren Garza MD Unavailable Unavailable Yovani Pacheco MD Unavailable [...] Unavailable Yovani Pacheco MD Unavailable Unavailable Yovani Pacehco MD Unavailable Unavailable Yovani Pacheco MD Unavailable Unavailable Yovani Pacheco MD Unavailable Unavailable Yovani Pacheco MD Unavailable Unavailable Yovani Pacheco MD Unavailable Unavailable Yovani Pacheco MD Unavailable Unavailable Yovani Pacheco MD Unavailable Unavailable Lenard, Thierry RUBBER COMPOUNDER FORMULATOR RUBBER COMPOUNDER FORMULATOR Unavailable Unavailable RAYMOND, L THIERRY PA Unavailable [...] Unavailable RAYMOND, L THIERRY PA Unavailable Unavailable FREYA, MELYNNE JOSHUA MD Unavailable [...] Unavailable FREYA, MELYNNE JOSHUA MD Unavailable Unavailable Re-disclosure Warning The records that [...] is protected by Article 27-F of the [facility] Public Health law. If you continue you may have access to information: Regarding HIV / AIDS; Provided by facilities licensed or operated by the [facility] Office of Mental Health; or Provided by the [facility] Office for People With Developmental Disabilities. If such information is present, then the following [facility] mandated warning applies: This information has [...] law may result in a fine or alf sentence or both. A general authorization for the release of medical or other information is NOT sufficient authorization for further disc losure. Family History Family Member Name Family Member Gender Family Member Status Date o f Status Description Data Source(s) Unknown Unknown Problem [facility] ([facility], ) Encounters Encounter Providers Location Date Indications Data Source(s ) Unknown [id number] [facility] [address] 06/21/2020 12:00:00 AM EST eCW1 ([facility]) Office Visit Attender: THIERRY COLES Main Office 10:30:00 AM EST [facility] ([facility]) Unknown [id number] [facility] [address] 06/12/2020 12:00:00 AM EST eCW1 ([facility]) Office Visit Attender: Nicole COLES Main Office 04/12/2020 08 :45:00 AM EST [facility] ([facility]) Office Visit Attender: LUIS ZHANG MD Main Office 04/11/2020 02:55:0 0 PM EST MED[facility] ([facility]) Office Visit Attender: LUIS ZHANG MD Main Office 02/24/2020 12:39:0 0 PM EDT MED[facility] ([facility]) Office Visit Attender: Nicole COLES Main Office 02/20/2020 09 :15:00 AM EDT MED[facility] ([facility]) Outpatient Attender: ZAHRA Staton 0 02/16/2020 08:40:00 AM EDT MEDENT ([facility] ) Outpatient Attender: ZAHRA Staton 0 02/01/2020 03:00:00 PM EDT MED[facility] ([facility] ) Office Visit Attender: Nicole COLES Main Office 01/18/2020 10 :45:00 AM EDT MED[facility] ([facility]) Office Visit Attender: LUIS ZHANG MD Main Office 01/16/2020 03:17:0 0 PM EDT MED[facility] ([facility]) Outpatient Attender: ZAHRA Staton 0 12/15/2019 11:00:00 AM EDT MEDENT ([facility] ) Outpatient Attender: ZAHRA Staton 0 11/30/2019 03:20:00 PM EDT MED[facility] ([facility] ) Outpatient Attender: RONAK HALEY 10/06/2019 09:01:06 P M EDT [facility] Outpatient Attender: Smith Staton 0 09/08/2019 08:40:00 AM EDT MED[facility] ([facility] ) Outpatient Attender: Smith Staton 0 08/04/2019 08:00:00 AM EDT MED[facility] ([facility] ) Outpatient Attender: Troy Zheng/Evon/Piero/Dewey wilson 08/03/2019 11:30:00 AM EDT MED[facility] ([facility]) Outpatient Referrer: Greg Tran MD 06/24/2019 09:37:00 AM EST [facility] Outpatient Attender: JOSHUA Zheng/Evon/Piero/R eindl 06/21/2019 12:23:00 AM EST MEDENT ([facility] Outpatient Referrer: Greg Tran MD 06/20/2019 02:49:00 PM EST [facility] Outpatient Attender: JOSHUA Zheng/Evon/Piero/R eindl 06/20/2019 12:23:00 AM EST MEDENT ([facility], ) Outpatient Referrer: Greg Tran MD 06/17/2019 03:15:00 PM EST [facility] Outpatient Attender: Troy Zheng/Evon/Piero/R eindl 06/16/2019 12:23:00 AM EST MEDENT ([facility]) Outpatient Referrer: Greg Tran MD 06/15/2019 02:39:00 PM EST [facility] Outpatient Attender: Troy Zheng/Evon/Piero/R eindl 06/15/2019 12:23:00 AM EST MEDENT ([facility] Outpatient Attender: JOSHUA Zheng/Evon/Piero/R eindl 06/09/2019 12:23:00 AM EST MED[facility] ([facility], ) Outpatient Attender: JOSHUA Zheng/Evon/Piero/R eindl 06/08/2019 12:23:00 AM EST MED[facility] ([facility], ) Immunizations Vaccine Date Status Description Data Source(s) Influenza, injectable, MDCK, preservative free, miroslava valent 02/16/2020 08:42:00 AM EDT completed [facility] ([facility]) Medications Medication Brand Name Start Date Product Form Dose Route Admi nistrative Instructions Pharmacy Instructions Status Indications Reaction Description Data Source(s) BLOOD SUGAR DIAGNOSTIC 06/27/2020 12:00:00 AM EST strip 50 TEST TWO TIMES A DAY TEST TWO TIMES A DAY SOLD: 06/27/2020 [facility] 100 unit/mL 06/27/2020 12:00:00 AM EST solution 20 INJECT 13 UNITS SUBCUTANEOUSLY TWO TIMES A DAY INJECT 13 UNITS SUBCUTANEOUSLY TWO TIMES A DAY SOLD: 06/27/2020 [facility] 32 gauge x 1/4" 06/27/2020 12:00:00 AM EST needle 60 USE DIRECTED TWO TIMES A DAY USE DIRECTED TWO TIMES A DAY SOLD: 06/27/2020 [facility] 33 gauge 06/27/2020 12:00:00 AM EST misc 100 USE DIRECTED TWO TIMES A DAY USE DIRECTED TWO TIMES A DAY SOLD: 06/27/2020 [facility] ALCOHOL ANTISEPTIC PADS 06/27/2020 12:00:00 AM EST pads, med icated 100 TEST TWO TIMES A DAY TEST TWO TIMES A DAY SOLD: 06/27/2020 [facility] BLOOD-GLUCOSE METER 06/27/2020 12:00:00 AM EST misc 1 TEST TWO TIMES A DAY TEST TWO TIMES A DAY SOLD: 06/27/2020 [facility] Prednisone 10 MG Oral Tablet Prednisone 06/18/2020 12:00:00 AM EST ORAL active [facility] ([facility]) Magnesium Hydroxide 80 MG/ML Oral Suspension Milk Of Magnesi a 06/18/2020 12:00:00 AM EST ORAL active M EDENT ([facility]) Klor-Con M20 Klor-Con M20 06/18/2020 12:00:00 AM EST ORAL active [facility] ([facility]) Magnesium Oxide 400 MG Oral Tablet Magnesium Oxide 06/18/2020 12:00 :00 AM EST ORAL active [facility] ([facility]) Lidocaine Hydrochloride 40 MG/ML Topical Cream Aspercreme W/ Lidocaine 06/18/2020 12:00:00 AM EST active M EDENT ([facility]) torsemide 100 MG Oral Tablet Torsemide 06/18/2020 12:00:00 AM EST ORAL active [facility] ([facility]) Fluoxetine 10 MG Oral Tablet Fluoxetine HCL (PMDD) 06/18/2020 12:00 :00 AM EST ORAL active [facility] ([facility]) Acetaminophen 325 MG / Hydrocodone Bitartrate 5 MG Ora l Tablet Hydrocodone-Acetaminophen 06/18/2020 12:00:00 AM EST ORAL active [facility] ([facility]) Acetaminophen 500 MG Oral Tablet Acetaminophen Extra Strengt h 06/18/2020 12:00:00 AM EST ORAL active M EDENT ([facility]) Hydrocortisone 10 MG/ML Topical Cream Hydrocortisone 06/18/2020 12:00:00 AM EST active [facility] ( [facility]) Acetaminophen 500 MG Oral Tablet Acetaminophen Extra Strengt h 06/18/2020 12:00:00 AM EST ORAL active M EDENT ([facility]) Aspirin 81 MG Delayed Release Oral Tablet Aspirin 81 2019 12:00:00 AM EST ORAL active [facility] ( [facility]) Calcium Carbonate 500 MG Chewable Tablet [Tums] Tums 04/11/2020 12:00:00 AM EST ORAL active [facility] ( [facility]) Simethicone 80 MG Chewable Tablet Simethicone 04/11/2020 12:00:00 AM EST ORAL active [facility] Aluminum Hydroxide 80 MG/ML / Magnesium Hydroxide 80 MG/ML / Simethicone 8 MG/ML Oral Suspension [Maalox Max] Maalox Advanced Maximum Strength 04/11/2020 12:00:00 AM EST ORAL completed [facility] ([facility]) Prednisone 10 MG Oral Tablet Prednisone 04/11/2020 12:00:00 AM EST ORAL completed [facility] ([facility]) Prednisone 10 MG Oral Tablet Prednisone 04/11/2020 12:00:00 AM EST ORAL active [facility] ([facility]) Omeprazole 20 MG Delayed Release Oral Capsule Omeprazole 04/11/2020 12:00:00 AM EST ORAL active [facility] ([facility]) Simethicone 80 MG Chewable Tablet Simethicone 04/05/2020 12:00:[address] active MEDENT ([facility]) Omeprazole 20 MG Delayed Release Oral Tablet Omeprazole 03/14/2020 12:00:00 AM EDT ORAL active MED[facility] ([facility]) Calcium Carbonate 500 MG Chewable Tablet [Tums] Tums 03/14/2020 12:00:00 AM EDT active MED[facility] ( [facility]) torsemide 100 MG Oral Tablet Torsemide 02/20/2020 12:00:00 AM EDT ORAL active [facility] ([facility]) trolamine salicylate 100 MG/ML Topical Lotion [Aspercreme] A spercreme 02/19/2020 12:00:00 AM EDT completed [facility] ([facility]) Potassium Chloride 8 MEQ Oral Tablet Potassium Chloride ER 0 02/19/2020 12:00:00 AM EDT ORAL completed [facility] ([facility]) Diclofenac Sodium 0.01 MG/MG Topical Gel Diclofenac Sodium 02/19/2020 12:00:00 AM EDT active [facility] ([facility]) Prednisone 10 MG Oral Tablet Prednisone 02/19/2020 12:00:00 AM EDT ORAL completed [facility] ([facility]) Administration Of Flu Vaccine 02/16/2020 12:00:00 AM EDT completed [facility] Medication administered onsite Ascorbic Acid 60 MG / Beta Carotene 5000 UNT / Copper Sulfate 40 MG / dl-alpha tocopheryl acetate 30 UNT / Sodium Selenite 0.04 MG / Zinc Oxide 40 MG Oral Tablet Multi Vitamin And Minerals 02/14/2020 12:00:00 AM EDT OR AL active MEDENT ([facility]) 24 HR Glipizide 5 MG Extended Release Oral Tablet Glipizide ER 01/17/2020 12:00:00 AM EDT ORAL completed [facility] ([facility]) Furosemide 80 MG Oral Tablet Furosemide 01/17/2020 12:00:00 AM EDT ORAL completed [facility] ([facility]) Levalbuterol 0.417 MG/ML Inhalant Solution [Xopenex] Xopenex 01/17/2020 12:00:00 AM EDT completed [facility] ([facility]) Oxygen - Home 01/17/2020 12:00:00 AM EDT acti ve MED[facility] ([facility]) Menthol 0.008 MG/MG / Zinc Oxide 0.05 MG/MG Topical Powder G old Tavares 01/17/2020 12:00:00 AM EDT active M EDENT ([facility]) meloxicam 7.5 MG Oral Tablet Meloxicam 01/17/2020 12:00:00 AM EDT ORAL completed [facility] ([facility]) Ascorbic Acid 60 MG / Beta Carotene 5000 UNT / Copper Sulfate 40 MG / dl-alpha tocopheryl acetate 30 UNT / Sodium Selenite 0.04 MG / Zinc Oxide 40 MG Oral Tablet Multi For Her 50+ 01/17/2020 12:00:00 AM EDT ORAL active [facility] ([facility]) Magnesium Hydroxide 240 MG/ML Oral Suspension Milk Of Debra ia Concentrate 01/17/2020 12:00:00 AM EDT ORAL completed [facility] ([facility]) Linagliptin 5 MG Oral Tablet [Tradjenta] Tradjenta 01/17/2020 12 :00:00 AM EDT ORAL active [facility] ([facility]) Potassium Chloride 8 MEQ Extended Release Oral Capsule Potas sium Chloride ER 01/17/2020 12:00:00 AM EDT ORAL completed [facility] ([facility]) Lidocaine 40 MG/ML Topical Cream Lidocaine 01/17/2020 12:00:00 AM EDT completed [facility] ([facility]) gabapentin 600 MG Oral Tablet Gabapentin 01/17/2020 12:00:00 AM EDT ORAL active [facility] ([facility]) Acetaminophen 325 MG / Hydrocodone Bitartrate 5 MG Ora l Tablet Hydrocodone-Acetaminophen 01/17/2020 12:00:00 AM EDT ORAL active [facility] ([facility]) 7 ACTUAT umeclidinium 0.0625 MG/ACTUAT Dry Powder Inha ler [Incruse] Incruse Ellipta 01/17/2020 12:00:00 AM EDT RESPIRATORY active MED[facility] ([facility]) Cholecalciferol 5000 UNT Oral Tablet Vitamin D-3 01/17/2020 12:00:00 AM EDT ORAL completed [facility] ([facility]) Alprazolam 0.5 MG Oral Tablet Alprazolam 01/17/2020 12:00:00 AM EDT ORAL active [facility] ([facility]) Potassium Chloride 20 MEQ Extended Release Oral Tablet Potas sium Chloride ER 01/17/2020 12:00:00 AM EDT ORAL completed [facility] ([facility]) 8 HR Acetaminophen 650 MG Extended Release Oral Tablet Aceta minophen 8 Hour 01/17/2020 12:00:00 AM EDT ORAL active [facility] ([facility]) Nystatin 100 UNT/MG Topical Powder Nystatin 01/17/2020 12:00:00 AM EDT active [facility] ([facility]) Omeprazole 20 MG Delayed Release Oral Capsule Omeprazole 01/17/2020 12:00:00 AM EDT ORAL completed [facility] ([facility]) Diclofenac Sodium 0.01 MG/MG Topical Gel Voltaren 12/06/2019 12 :00:00 AM EDT active MEDENT ([facility]) Furosemide 40 MG Oral Tablet [Lasix] Lasix 12/01/2019 12:00:00 AM EDT ORAL active MEDENT ([facility]) Furosemide 80 MG Oral Tablet Furosemide 12/01/2019 12:00:00 AM EDT active MEDENT ([facility]) Lidocaine Lidocaine 11/30/2019 12:00:00 AM EDT com pleted MEDENT ([facility]) Medrol Medrol 11/30/2019 12:00:00 AM EDT active MED[facility] ([facility]) Klor-Con M20 Klor-Con M20 11/30/2019 12:00:00 AM EDT ORAL active [facility] Furosemide 40 MG Oral Tablet [Lasix] Lasix 11/23/2019 12:00:00 AM EDT ORAL completed MED[facility] ([facility]) Prednisone 10 MG Oral Tablet Prednisone 11/17/2019 12:00:00 AM EDT ORAL active MEDENT ([facility], ) Prednisone 10 MG Oral Tablet Prednisone 11/17/2019 12:00:00 AM EDT ORAL active MED[facility] ([facility], ) Nystatin 09/09/2019 12:00:00 AM EDT active [facility] 5 mg 09/02/2019 12:00:00 AM EDT tablet 45 TAKE ONE-HALF TABLET BY MOUTH EVERY DAY TAKE ONE-HALF TABLET BY MOUTH EVERY DAY SOLD: 09/03/2019 [facility] Potassium Chloride 8 MEQ Extended Release Oral Tablet [Klor- Con] Klor-Con 08/08/2019 12:00:00 AM EDT active MEDENT ([facility]) Acetaminophen 325 MG Oral Tablet Acetaminophen 08/05/2019 12:00:00 AM EDT ORAL active [facility] ([facility]) 24 HR Glipizide 5 MG Extended Release Oral Tablet Glipizide ER 08/05/2019 12:00:00 AM EDT ORAL active M EDENT ([facility]) Menthol 0.008 MG/MG / Zinc Oxide 0.05 MG/MG Topical Powder G old Tavares 08/05/2019 12:00:00 AM EDT active M EDENT ([facility]) Acetaminophen 325 MG / Hydrocodone Bitartrate 5 MG Ora l Tablet Hydrocodone-Acetaminophen 07/28/2019 12:00:00 AM EST ORAL active MED[facility] ([facility]) 24 HR Glipizide 2.5 MG Extended Release Oral Tablet Glipizid e XL 07/27/2019 12:00:00 AM EST ORAL completed [facility] ([facility]) Omeprazole 20 MG Delayed Release Oral Tablet Omeprazole 07/27/2019 12:00:00 AM EST ORAL active [facility] ([facility]) 7 ACTUAT umeclidinium 0.0625 MG/ACTUAT Dry Powder Inha ler [Incruse] Incruse Ellipta 07/27/2019 12:00:00 AM EST ORAL active [facility] ([facility]) Cholecalciferol 5000 UNT Oral Tablet Vitamin D3 07/27/2019 12:00:00 A M EST ORAL active [facility] ([facility]) Lidocaine Hydrochloride 40 MG/ML Topical Cream Aspercreme W/ Lidocaine 07/27/2019 12:00:00 AM EST active [facility] ([facility]) Linagliptin 5 MG Oral Tablet [Tradjenta] Tradjenta 07/27/2019 12 :00:00 AM EST ORAL active [facility] ([facility]) Magnesium Hydroxide 240 MG/ML Oral Suspension Milk Of Magnes ia Concentrate 07/27/2019 12:00:00 AM EST ORAL active [facility] ([facility]) meloxicam 7.5 MG Oral Tablet Meloxicam 07/27/2019 12:00:00 AM EST ORAL active [facility] ([facility]) 8 HR Acetaminophen 650 MG Extended Release Oral Tablet [Tylenol] Tylenol 8 Hour Arthritis Pain 07/27/2019 12:00:00 AM EST ORAL active [facility] ([facility]) Levalbuterol 0.417 MG/ML Inhalant Solution [Xopenex] Xopenex 07/27/2019 12:00:00 AM EST active [facility] gabapentin 600 MG Oral Tablet Gabapentin 07/27/2019 12:00:00 AM EST ORAL active [facility] ([facility]) 200 ACTUAT Albuterol 0.09 MG/ACTUAT Metered Dose Inhaler [Pr oAir] Proair HFA 07/27/2019 12:00:00 AM EST RESPIRATORY active MEDENT ([facility]) Alprazolam 0.5 MG Oral Tablet Alprazolam 07/27/2019 12:00:00 AM EST ORAL active [facility] ([facility]) atorvastatin 80 MG Oral Tablet Atorvastatin Calcium 07/27/2019 1 2:00:00 AM EST ORAL active [facility] ( [facility]) Prednisone 10 MG Oral Tablet Prednisone 07/27/2019 12:00:00 AM EST ORAL active MEDENT ([facility]) Ascorbic Acid 60 MG / Beta Carotene 5000 UNT / Copper Sulfate 40 MG / dl-alpha tocopheryl acetate 30 UNT / Sodium Selenite 0.04 MG / Zinc Oxide 40 MG Oral Tablet Multivitamin Adult 07/27/2019 12:00:00 AM EST ORAL active [facility] ([facility]) Levothyroxine Sodium 0.025 MG Oral Tablet Levothyroxine Sodi um 07/27/2019 12:00:00 AM EST ORAL active M EDENT ([facility]) tramadol hydrochloride 50 MG Oral Tablet Tramadol HCL 07/27/2019 12:00:00 AM EST ORAL completed [facility] ([facility]) Potassium Chloride 10 MEQ Extended Release Oral Capsul e [Klor-Con] Klor-Con Sprinkle 07/27/2019 12:00:00 AM EST ORAL completed [facility] ([facility]) Fluoxetine 20 MG Oral Capsule [Prozac] Prozac 07/27/2019 12:00:00 AM EST ORAL active [facility] ([facility]) Furosemide 40 MG Oral Tablet [Lasix] Lasix 07/27/2019 12:00:00 AM EST ORAL completed [facility] ([facility]) 60 ACTUAT Fluticasone propionate 0.25 MG /ACTUAT / salmeterol 0.05 MG/ACTUAT Dry Powder Inhaler [Advair] Advair Diskus 07/27/2019 12:00:00 AM EST ORAL active [facility] ([facility]) Bisoprolol Fumarate 5 MG Oral Tablet Bisoprolol Fumarate 08/2019 12:00:00 AM EST ORAL active [facility] ([facility]) Albuterol 0.833 MG/ML / Ipratropium Powell 0.167 MG/M L Inhalant Solution Ipratropium Powell/Albuterol Sulfate 07/27/2019 12:00:00 AM EST active [facility] ([facility]) 10 mg 06/29/2019 12:00:00 AM [...] TABLET BY MOUTH EVERY DAY SOLD: 06/12/2019 [facility] 40 mg 05/31/2019 12:00:00 AM EST [...] THREE TIMES A DAY SOLD: 05/26/2019 [facility] gabapentin 800 MG Oral Tablet GABAPENTIN 05/25/2019 12:00:00 AM EST t ablet 270 TAKE ONE TABLET BY MOUTH THREE TIMES A DAY TAKE ONE TA BLET BY MOUTH THREE TIMES A DAY SOLD: 09/03/2019 [facility] 8 mEq 05/19/2019 12:00:00 AM EST tablet extended release 180 TAKE TWO TABLETS BY MOUTH EVERY DAY TAKE TWO TABLETS BY MOUTH EVERY DAY SOLD: 05/20/2019 [facility] 7.5-325 mg 05/11/2019 12:00:00 AM EST tablet 60 TAKE ONE TABLET BY MOUTH TWICE A DAY MAXIMUM DAILY DOSE = 2 TABLETS TAKE ONE TABLET BY MOUTH TWICE A DAY MAXIMUM DAILY DOSE = 2 TABLETS SOLD: 05/11/2019 [facility] Alprazolam 0.5 MG Oral Tablet ALPRAZOLAM [...] MOUTH EVERY DAY SOLD: 05/11/2019 [facility] 18 mcg 11/18/2018 12:00:00 AM EDT capsule, [...] relationship to hdz Policy Hdz Plan Information [facility] [id number] SP [id number] [place] [id number] SP [id number] [facility] [id number] SP [id number] [facility](MCAID) O [id number] S [id number] MEDICAID [id number] MEDICARE [id number] SP [id number] [place]ED[place] [id number] SP [id number] MEDICARE [id number] SP [id number] A OTHER WORKERS COMPENSATION DOES NOT APPLY THIS VISIT SP DOES NOT APPLY THIS VISIT STATE FARM DOES NOT APPLY THIS VISIT SP DOES NOT APPLY THIS VISIT MEDICARE COMPLETE [id number] SP [id number] MEDICARE [id number] SP [id number] [facility]([place]) O [id number] S [id number] [facility] [id number] SP [id number] [facility] [id number] SP [id number] MEDICARE C [id number] S [id number] MEDICARE [id number] SP [id number] Medicare S [id number] S [id number] Medicaid P [id number] S [id number] MEDICAID [id number] SP [id number] MEDICAID [id number] SP [id number] [place] Part [place] [id number] Self [id number] Medicare [facility] Medicare Primary [id number] Self [id number] MEDICARE [id number] SP [id number] [place] [id number] Self [id number] Medicare [facility] Medicare Primary [id number] Self [id number] MEDICARE [id number] SP [id number] A Accident-Danny Unrelated Medigap Part B [id number] Self [id number] Medicaid Medigap Part B [id number] Self [id number] Medicare (Part B) Medicare Primary [id number] Self [id number] [place] [id number] Self [id number] Medicare [facility] Medicare Primary [id number] Self [id number] MEDICARE C [id number] S [id number] A [place] Part B [id number] Self [id number] [place] Primary [id number] Self [id number] MEDICAID-O/P [id number] MEDICARE PART A-O/P [id number] 18 [id number] [place] B [id number] Self [id number] Medicare [facility] Medicare Primary [id number] Self [id number] MEDICAID-O/P [id number] 18 [id number] MEDICAID [id number] 3 [id number] 18 [id number] [facility], [facility] [id number] S [id number] MEDICAID [id number] SP [id number] MEDICARE [id number] SP [id number] [place] [id number] Self [id number]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 Urea nitrogen [Mass/volume] in Serum or Plasma 12 [facility] ([facility]) Creatinine For GFR 0.66 [facility] ([facility]) Glucose 181 70-100 [facility] ([facility]) ID Date Data Source [id number] 02/14/2020 12:51:00 PM EDT [facility] ([facility]) Name Value Range Interpretation Code Description Data Mel rce(s) Supporting Document(s) White Blood Count 11.8 4.3-10.9 [facility] ([facility]) Red Blood Count 4.03 4.70-6.20 [facility] ([facility]) Platelets 347 130-400 [facility] ([facility]) Hemoglobin 10.4 13.0-17.0 [facility] ([facility]) Hematocrit 34.6 39.0-50.0 [facility] ([facility]) ID Date Data Source [id number] 02/01/2020 03:17:00 PM EDT [facility] ([facility]) Name Value Range Interpretation Code Description Data Mel rce(s) Supporting Document(s) Natriuretic peptide B [Mass/volume] in Serum or Plasma 22.6 pg/mL 0.0 -100.0 [facility] ([facility]) ID Date Data Source [id number] 02/01/2020 03:17:00 PM EDT [facility] ([facility]) Name Value Range Interpretation Code Description Data Mel rce(s) Supporting Document(s) Glucose [Mass/volume] in Serum or Plasma 326 mg/dL 74-99 [facility] ([facility]) 100-125 mg/dL PRE-DIABETES/FASTING >126 mg/dL DIABETES/FASTING Creatinine 0.9 mg/dL 0.6-1.3 [facility] ([facility]) Sodium [Moles/volume] in Serum or Plasma 139 meq/L 136-145 [facility] ([facility]) Urea nitrogen [Mass/volume] in Serum or Plasma 22 mg/dL 7-18 [facility] ([facility]) Chloride [Moles/volume] in Serum or Plasma 99 meq/L 98-107 [facility] ([facility]) Carbon dioxide, total [Moles/volume] in Serum or Plasma 29 meq/L 21 -32 [facility] ([facility]) Potassium [Moles/volume] in Serum or Plasma 4.2 meq/L 3.5-5.1 [facility] ([place] [facility] Glomerular filtration rate/1.73 sq M pre dicted among blacks [Volume Rate/Area] in Serum or Plasma by Creatinine-based formula (MDRD) Laboratory test [facility]) <content>CHRONIC KIDNEY DISEASE STAGING PER NKF</content>
<content></content>
<content>STAGE I & II GFR >= 60 NORMAL TO MILDLY DECREASED</content>
<content>STAGE III GFR 30-59 MODERATELY DECREASED</content>
<content>STAGE IV GFR 15-29 SEVERELY DECREASED</content>
<content>STAGE V GFR <15 VERY LITTLE GFR LEFT</content>
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
<content></content> Glomerular filtration rate/1.73 sq M pre dicted among non-blacks [Volume Rate/Area] in Serum or Plasma by Creatinine-based formula (MDRD) Laboratory test result [facility] ([place] [facility] Calcium [Mass/volume] in Serum or Plasma 8.7 mg/dL 8.5-10.1 [facility] ([place] [facility] ID Date Data Source [id number] 01/29/2020 07:13:00 PM EDT [facility] Name Value Range Interpretation Code Description Data Mel rce(s) Supporting Document(s) ABG Partial Pressure Co2 48.6 mmHg 35.0-45.0 [facility] ([facility]) ABG pH (Arterial) 7.418 units 7.350-7.450 [facility] ( [facility]) ABG Hco3 30.7 meq/L 22.0-26.0 [facility] ([place] [facility]) ABG Partial Pressure O2 72.5 mmHg 75.0-100.0 [facility] T ([facility]) ABG Total Co2 32.2 meq/L 23.0-31.0 [facility] ([facility]) ABG Base Excess 5.3 [facility] ([facility]) ABG O2 Saturation 92.7 % 95.0-99.0 [facility] ([facility]) ABG Standard Hco3 29.2 meq/L 22.0-26.0 [facility] ([facility]) ID Date Data Source [id number] 01/29/2020 05:37:00 PM EDT [facility]) Name Value Range Interpretation Code Description Data Mel rce(s) Supporting Document(s) Blood Culture Laboratory test result [facility] ([facility]) No growth after 72 hours . All specimens observed for 5 days. Results final at that time. No growth after 48 hours . All specimens observed for 5 days. Results final at that time. No growth after 24 hours . All specimens observed for 5 days. Results final at that time. NO GROWTH AFTER 5 DAYS ID Date Data Source [id number] 01/29/2020 05:27:00 PM EDT [facility]) Name Value Range Interpretation Code Description Data Mel rce(s) Supporting Document(s) Alkaline Phosphatase 163 U/L 45-117 [facility] Ast/Sgot 18 U/L 7-37 [facility] ([place] [facility]) Alt/SGPT 32 U/L 12-78 [facility] ([place] [facility]) Bilirubin,Direct Laboratory test result 0.0-0.2 [facility] ([facility]) Total Protein 6.4 GM/DL 6.4-8.2 [facility] ([facility]) Bilirubin,Total 0.2 mg/dL 0.2-1.0 [facility] ([facility]) Albumin/Globulin Ratio 1.0 1.2-2.2 [facility] ([facility]) Albumin 3.2 GM/DL 3.2-5.2 [facility] ([facility]) ID Date Data Source [id number] 01/29/2020 05:27:00 PM EDT [facility]) Name Value Range Interpretation Code Description Data Mel rce(s) Supporting Document(s) Inr 0.91 [facility] ([facility]) THERAPUTIC HUMAN INR VALUES INDICATIONS NORMAL RANGES PROPHYLAXIS/TREATMENT OF: VENOUS THROMBOSIS 2.0-3.0 PULMONARY EMBOLISM 2.0-3.0 PREVENTION OF SYSTEMIC EMBOLISM FROM: TISSUE HEART VALVES 2.0-3.0 ACUTE MYOCARDIAL INFARCTION 2.0-3.0 VALVULAR HEART DISEASE 2.0-3.0 ATRIAL FIBRILLATION 2.0-3.0 MECHANICAL VALVES(HIGH RISK) 2.5-3.5 RECURRENT MYOCARDIAL INFARCTION 2.5-3.5 Prothrombin Time 12.4 s 11.8-14.0 [facility] ([facility]) ID Date Data Source [id number] 01/29/2020 05:27:00 PM EDT [facility]) Name Value Range Interpretation Code Description Data Eml rce(s) Supporting Document(s) CK-MB Value Mass 1.5 ng/mL [facility] ([facility]) CPK Creatine Phosphokinase 55 U/L 26-192 [facility] ([facility]) MB/CK Relative Index 2.73 [facility] ([facility]) <content>DIAGNOSIS CRITERIA</content>
<content>MMB ng/ml Relative Index (RI)</content>
<content>NON-AMI < or = 5 N/A</content>
<content>MILTON ZONE > 5 < or = 4</content>
<content>AMI > 5 > 4</content>
<content></content> Troponin I Laboratory test result [facility] ([facility]) <content>Troponin I Reference Interval f or Siemens [place] LOCI:</content>
<content></content>
<content>99th Percentile= 0.00-0.045 ng/ml</content>
<content></content>
<content>Risk Stratification:</content>
<content><= 0.10 ng/ml Decreased Risk for Adverse Clinical</content>
<content>Events.</content>
<content>0.10-1.50 ng/ml Increased Risk for Adverse Clinical</content>
<content>Events. Evaluation of additional</content>
<content>criterion and/or repeat testing in 2-6</content>
<content>hours is suggested to rule out myocardial</content>
<content>damage.</content>
<content>>= 1.50 ng/ml Indicative of Myocardial Injury.</content>
<content></content> ID Date Data Source [id number] 01/29/2020 05:27:00 PM EDT [facility] ([facility]) Name Value Range Interpretation Code Description Data Mel rce(s) Supporting Document(s) Blood Urea Nitrogen 15 mg/dL 7-18 [facility] ([facility]) Creatinine For GFR 0.81 mg/dL 0.55-1.30 [facility] ([facility]) Glucose, Fasting 264 mg/dL 70-100 [facility] Sodium Level 142 meq/L 136-145 [facility] ([place] [facility] [facility]) Glomerular Filtration Rate Laboratory test result [facility] ([facility]) <content>Units are mL/min/1.73 m2</content>
<content></content>
<content>Chronic Kidney Disease Staging per NKF:</content>
<content></content>
<content>Stage I & II GFR >=60 Normal to Mildly Decreased</content>
<content>Stage III GFR 30- 59 Moderately Decreased</content>
<content>Stage IV GFR 15-29 Severely Decreased</content>
<content>Stage V GFR <15 Very Little GFR Left</content>
<content>ESRD GFR <15 on VETERINARY PRACTICE MANAGER</content>
<content></content> Potassium Serum 4.2 meq/L 3.5-5.1 [facility] ([facility]) Carbon Dioxide Level 31 meq/L 21-32 [facility] Anion Gap 7 meq/L 8-16 [facility] ([place] [facility]) Chloride Level 104 meq/L 98-107 [facility] ([facility]) Calcium Level 8.1 mg/dL 8.8-10.2 [facility] ([facility]) ID Date Data Source [id number] 01/29/2020 05:27:00 PM EDT [facility] ([facility]) Name Value Range Interpretation Code Description Data Mel rce(s) Supporting Document(s) Natriuretic peptide.B prohormone N-Terminal [Mass/volu me] in Serum or Plasma 73 pg/mL [facility] ([facility] ) Thyrotropin [Units/volume] in Serum or Plasma by Detec tion limit <= 0.05 mIU/L 0.292 uIU/ML 0.358-3.740 [facility] ([facility] ) Thyroxine (T4) Ab [Units/volume] in Serum 7.2 ug/dL 4.5-12.0 [facility] ([place] [facility] Lactate [Mass/volume] in Serum or Plasma 2.5 mmol/L 0.4-2.0 Above upper panic limits [facility] ([place] [facility] Y/N query for Sepsis Lactate Rule: Y ID Date Data Source [id number] 01/29/2020 05:27:00 PM EDT [facility] ([facility]) Name Value Range Interpretation Code Description Data Mel rce(s) Supporting Document(s) Blood Culture Laboratory test result [facility] ([place] [facility] No growth [...] AFTER 5 DAYS ID Date Data Source [id number] 01/29/2020 05:27:00 PM EDT [facility] ([facility]) Name Value Range Interpretation Code Description Data Mel rce(s) Supporting Document(s) White Blood Count 12.8 10 4.0-10.0 [facility] ([facility]) Red Blood Count 3.81 10 4.00-5.40 [facility] ([facility]) Hemoglobin 9.7 g/dL 12.0-15.5 [facility] ([place] [facility]) Hematocrit 33.1 % 36.0-47.0 [facility] Mean Corpuscular Volume 86.9 fl 80.0-96.0 [facility] ([facility]) Mean Corpuscular Hemoglobin 25.5 pg 27.0-33.0 [facility] ([facility]) Platelet Count, Automated 378 10 150-450 [facility] ([facility]) Mean Corpuscular HGB Conc 29.3 g/dL 32.0-36.5 [facility] ([facility]) Red Cell Distribution Width 15.8 % 11.5-14.5 [facility] ([facility]) Neutrophils % 81.3 % 36.0-66.0 [facility] ([facility]) Mcleod % 5.2 % 0.0-5.0 [facility] ([place] [facility]) Lymph % 11.6 % 24.0-44.0 [facility] ([place] [facility]) Nucleated Red Blood Cell % 0.0 % 0-0 [facility] ([facility]) Eos % 0.5 % 0.0-3.0 [facility] ([place] [facility]) Immature Granulocyte % 1.0 % 0-3.0 [facility] ([facility]) Baso % 0.4 % 0.0-1.0 [facility] [facility] Neutrophils # 10.4 10 1.5-8.5 [facility] ([facility]) Mcleod # 0.7 10 0.0-0.8 [facility] ([place] [facility]) Lymph # 1.5 10 1.5-5.0 [facility] ([place] [facility] Baso # 0.1 10 0.0-0.2 [facility] ([place] [facility]) Eos # 0.1 10 0.0-0.5 [facility] ([place] [facility]) ID Date Data Source [id number] 01/29/2020 05:25:00 PM EDT [facility] ([facility]) Name Value Range Interpretation Code Description Data Mel rce(s) Supporting Document(s) ABG pH (Arterial) 7.407 units 7.350-7.450 [facility] ( [facility]) ABG Partial Pressure O2 149.8 mmHg 75.0-100.0 [facility] ([facility]) ABG Hco3 28.7 meq/L 22.0-26.0 [facility] ([place] [facility]) ABG Total Co2 30.2 meq/L 23.0-31.0 [facility] ([facility]) ABG Partial Pressure Co2 46.7 mmHg 35.0-45.0 [facility] ([place] [facility]) ABG O2 Saturation 97.2 % 95.0-99.0 [facility] ([facility]) ABG Base Excess 3.5 [facility] ([facility]) ABG Standard Hco3 27.6 meq/L 22.0-26.0 [facility] ([facility]) ID Date Data Source [id number] 12/15/2019 11:21:00 AM EDT [facility] ([facility]) Name Value Range Interpretation Code Description Data Mel rce(s) Supporting Document(s) Erythrocytes [#/volume] in Blood by Automated count 4.00 x10*6/UL 4.2 0-6.30 [facility] ([facility]) Leukocytes [#/volume] in Blood by Automated count 9.5 x10*3/UL 4.1-10 .9 [facility] ([facility]) Hemoglobin [Mass/volume] in Blood 10.4 g/dL 12.0-18.0 [facility] ([facility]) NOTE: RESULT VERIFIED. Hematocrit [Volume Fraction] of Blood by Automated count 32.3 % 3 7.0-51.0 [facility] ([facility]) MCV 80.7 fL 80.0-97.0 [facility] ([facility]) Erythrocyte distribution width [Ratio] by Automated count 14.3 % 11.6-13.7 [facility] ([facility]) MCHC 32.4 g/dL 31.0-38.0 [facility] ([facility]) MCH 26.1 pg 26.0-32.0 [facility] ([facility]) Mid % 3.6 % 1.7-9.3 [facility] ([facility]) Platelets [#/volume] in Blood by Automated count 352 x10*3/UL 140-440 MED[facility] ([facility]) Lymph % 12.7 % 10.0-58.5 [facility] ([facility]) MPV 7.2 FL 7.8-11.0 [facility] ([facility]) Neut % 83.7 % 37.0-92.0 [facility] ([facility]) Lymph # 1.2 x10*3/UL 0.6-4.1 [facility] ([facility]) Mid # 0.4 x10*3/UL 0.1-0.6 [facility] ([facility]) Neut # 7.9 x10*3/UL 2.0-7.8 [facility] ([facility]) ID Date Data Source [id number] 12/10/2019 12:41:00 PM EDT [facility] Name Value Range Interpretation Code Description Data Mel rce(s) Supporting Document(s) Laboratory test finding (navigational concept) 62.0 MMHG 3 5.0-45.0 Above upper panic limits [facility] ([facility]) Laboratory test finding (navigational concept) 7.372 units 7.350-7.45 0 [facility] ([facility]) Laboratory test finding (navigational concept) 73.0 MMHG 80-105 [facility] ([facility]) Laboratory test finding (navigational concept) 36.0 mmol/L 22.0-26.0 [facility] ([facility]) Laboratory test finding (navigational concept) 38.0 mmol/L 23.0-27.0 [facility] ([facility]) Laboratory test finding (navigational concept) 93 % 95-98 [facility] ([facility]) Laboratory test finding (navigational concept) 11.0 mmol/L [facility] ([facility]) ID Date Data Source [id number] 12/10/2019 11:21:00 AM EDT [facility] ([facility]) Name Value Range Interpretation Code Description Data Mel rce(s) Supporting Document(s) Prothrombin Time 12.0 s 11.8-14.0 [facility] ([facility]) Inr 0.91 [facility] THERAPUTIC HUMAN INR VALUES INDICATIONS NORMAL RANGES PROPHYLAXIS/TREATMENT OF: VENOUS THROMBOSIS 2.0-3.0 PULMONARY EMBOLISM 2.0-3.0 PREVENTION OF SYSTEMIC EMBOLISM FROM: TISSUE HEART VALVES 2.0-3.0 ACUTE MYOCARDIAL INFARCTION 2.0-3.0 VALVULAR HEART DISEASE 2.0-3.0 ATRIAL FIBRILLATION 2.0-3.0 MECHANICAL VALVES(HIGH RISK) 2.5-3.5 RECURRENT MYOCARDIAL INFARCTION 2.5-3.5 ID Date Data Source [id number] 12/10/2019 11:21:00 AM EDT [facility] ([facility]) Name Value Range Interpretation Code Description Data Mel rce(s) Supporting Document(s) Red Blood Count 4.56 10 4.00-5.40 [facility] ([facility]) White Blood Count 17.1 10 4.0-10.0 [facility] ([facility]) Hematocrit 39.8 % 36.0-47.0 [facility] Hemoglobin 11.8 g/dL 12.0-15.5 [facility]) Mean Corpuscular Volume 87.3 fl 80.0-96.0 [facility] ([facility]) Red Cell Distribution Width 15.7 % 11.5-14.5 [facility] ([facility]) Mean Corpuscular Hemoglobin 25.9 pg 27.0-33.0 [facility] ([facility]) Mean Corpuscular HGB Conc 29.6 g/dL 32.0-36.5 MEDE NT ([facility]) Neutrophils % 79.2 % 36.0-66.0 [facility] ([facility]) Platelet Count, Automated 376 10 150-450 MEDE NT ([facility]) Lymph % 11.5 % 24.0-44.0 [facility] ([facility]) Eos % 1.1 % 0.0-3.0 [facility] ([facility]) Baso % 0.2 % 0.0-1.0 [facility] ([facility]) Immature Granulocyte % 1.6 % 0-3.0 [facility] ([facility]) Mcleod % 6.4 % 0.0-5.0 [facility] ([facility]) Lymph # 2.0 10 1.5-5.0 [facility] ([facility]) Nucleated Red Blood Cell % 0.0 % 0-0 MED ENT ([facility]) Neutrophils # 13.5 10 1.5-8.5 [facility] ([facility]) Eos # 0.2 10 0.0-0.5 [facility] ([facility]) Mcleod # 1.1 10 0.0-0.8 [facility] ([facility]) Baso # 0.0 10 0.0-0.2 [facility] ([facility]) ID Date Data Source [id number] 12/10/2019 11:21:00 AM EDT [facility] ([facility]) Name Value Range Interpretation Code Description Data Mel rce(s) Supporting Document(s) Natriuretic peptide.B prohormone N-Terminal [Mass/volu me] in Serum or Plasma 234 pg/mL [facility] ID Date Data Source [id number] 12/10/2019 11:21:00 AM EDT [facility] ([facility]) Name Value Range Interpretation Code Description Data Mel rce(s) Supporting Document(s) Glucose, Fasting 144 mg/dL 70-100 [facility] ([facility]) Blood Urea Nitrogen 18 mg/dL 7-18 [facility] ([facility]) Glomerular Filtration Rate Laboratory test result [facility] ([facility]) <content>Units are mL/min/1.73 m2</content>
<content></content>
<content>Chronic Kidney Disease Staging per NKF:</content>
<content></content>
<content>Stage I & II GFR >=60 Normal to Mildly Decreased</content>
<content>Stage III GFR 30- 59 Moderately Decreased</content>
<content>Stage IV GFR 15-29 Severely Decreased</content>
<content>Stage V GFR <15 Very Little GFR Left</content>
<content>ESRD GFR <15 on VETERINARY PRACTICE MANAGER</content>
<content></content> Creatinine For GFR 0.73 mg/dL 0.55-1.30 [facility] ([facility]) Chloride Level 101 meq/L 98-107 [facility] ([facility]) Sodium Level 143 meq/L 136-145 [facility] ([facility]) Potassium Serum 4.1 meq/L 3.5-5.1 [facility] ([facility]) Anion Gap 3 meq/L 8-16 [facility] ([facility]) Calcium Level 8.9 mg/dL 8.8-10.2 [facility] ([facility]) Carbon Dioxide Level 39 meq/L 21-32 [facility] ([facility]) ID Date Data Source [id number] 12/10/2019 11:21:00 AM EDT [facility] ([facility]) Name Value Range Interpretation Code Description Data Mel rce(s) Supporting Document(s) Alt/SGPT 31 U/L 12-78 [facility] ([facility]) Ast/Sgot 15 U/L 7-37 [facility] ([facility]) Bilirubin,Direct 0.1 mg/dL 0.0-0.2 [facility] ([facility]) Alkaline Phosphatase 110 U/L 45-117 [facility] ([facility]) Bilirubin,Total 0.4 mg/dL 0.2-1.0 [facility] ([facility]) Total Protein 6.7 GM/DL 6.4-8.2 [facility] ([facility]) Albumin 3.3 GM/DL 3.2-5.2 [facility] ([facility]) Albumin/Globulin Ratio 1.0 1.2-2.2 [facility] ([facility]) ID Date Data Source [id number] 12/10/2019 11:21:00 AM EDT [facility] ([facility]) Name Value Range Interpretation Code Description Data Mel rce(s) Supporting Document(s) CPK Creatine Phosphokinase 59 U/L 26-192 MED E[facility] ([facility]) MB/CK Relative Index 3.05 [facility] ([facility]) <content>DIAGNOSIS CRITERIA</content>
<content>MMB ng/ml Relative Index (RI)</content>
<content>NON-AMI < or = 5 N/A</content>
<content>MILTON ZONE > 5 < or = 4</content>
<content>AMI > 5 > 4</content>
<content></content> CK-MB Value Mass 1.8 ng/mL [facility] ([facility]) Troponin I Laboratory test result [facility] ([facility]) <content>Troponin I Reference Interval f or Siemens [place] LOCI:</content>
<content></content>
<content>99th Percentile= 0.00-0.045 ng/ml</content>
<content></content>
<content>Risk Stratification:</content>
<content><= 0.10 ng/ml Decreased Risk for Adverse Clinical</content>
<content>Events.</content>
<content>0.10-1.50 ng/ml Increased Risk for Adverse Clinical</content>
<content>Events. Evaluation of additional</content>
<content>criterion and/or repeat testing in 2-6</content>
<content>hours is suggested to rule out myocardial</content>
<content>damage.</content>
<content>>= 1.50 ng/ml Indicative of Myocardial Injury.</content>
<content></content> ID Date Data Source [id number] 12/10/2019 11:21:00 AM EDT [facility] ([facility]) Name Value Range Interpretation Code Description Data Mel rce(s) Supporting Document(s) Lactate [Mass/volume] in Serum or Plasma 1.2 mmol/L 0.4-2.0 [facility] ([facility]) Y/N query for Sepsis Lactate Rule: Y ID Date Data Source [id number] 12/10/2019 11:21:00 AM EDT [facility] ([facility]) Name Value Range Interpretation Code Description Data Mel rce(s) Supporting Document(s) Venous Partial Pressure Co2 76.2 mmHg 38.0-50.0 [facility] ([facility]) Venous Partial Pressure O2 59.9 mmHg 30.0-50.0 [facility] ([facility]) Venous PH 7.319 units 7.330-7.430 [facility] ([facility]) Venous Base Excess 9.5 [facility] Venous Hco3 38.3 meq/L 23.0-27.0 [facility] ([facility]) Venous Total Co2 40.6 meq/L 24.0-28.0 [facility] Venous O2 Saturation 89.0 % 60.0-80.0 [facility] Venous Standard Hco3 33.0 meq/L [facility] ( [facility]) ID Date Data Source [id number] 12/02/2019 12:00:00 AM EDT [facility] Patient Name: MIGUEL [id number] [facility] Date of : 1955[place] [address] Date of Exam: 12/02/2019#: Fax: [phone] EXAM: [...] rce(s) Supporting Document(s) ID Date Data Source [id number] 11/30/2019 03:35:00 PM EDT [facility] ([facility]) Name Value Range Interpretation Code Description Data Mel rce(s) Supporting Document(s) Glucose [Mass/volume] in Serum or Plasma 172 mg/dL 74-99 [facility] ([facility]) 100-125 mg/dL PRE-DIABETES/FASTING >126 mg/dL DIABETES/FASTING Urea nitrogen [Mass/volume] in Serum or Plasma 17 mg/dL 7-18 [facility] ([facility]) Creatinine 0.9 mg/dL 0.6-1.3 [facility] ([facility]) Sodium [Moles/volume] in Serum or Plasma 143 meq/L 136-145 [facility] Carbon dioxide, total [Moles/volume] in Serum or Plasma 36 meq/L 21 -32 [facility] ([facility]) Chloride [Moles/volume] in Serum or Plasma 99 meq/L 98-107 [facility] Potassium [Moles/volume] in Serum or Plasma 3.6 meq/L 3.5-5.1 [facility] Calcium [Mass/volume] in Serum or Plasma 8.5 mg/dL 8.5-10.1 [facility] Glomerular filtration rate/1.73 sq M pre dicted among non-blacks [Volume Rate/Area] in Serum or Plasma by Creatinine-based formula (MDRD) Laboratory test result [facility] ([facility] ) Glomerular filtration rate/1.73 sq M pre dicted among blacks [Volume Rate/Area] in Serum or Plasma by Creatinine-based formula (MDRD) Laboratory test result [facility] ([facility]) <content>CHRONIC KIDNEY DISEASE STAGING PER NKF</content>
<content></content>
<content>STAGE I & II GFR >= 60 NORMAL TO MILDLY DECREASED</content>
<content>STAGE III GFR 30-59 MODERATELY DECREASED</content>
<content>STAGE IV GFR 15-29 SEVERELY DECREASED</content>
<content>STAGE V GFR <15 VERY LITTLE GFR LEFT</content>
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
<content></content> ID Date Data Source [id number] 11/30/2019 03:35:[address] [facility] Name Value Range Interpretation Code Description Data Mel rce(s) Supporting Document(s) Natriuretic peptide B [Mass/volume] in Serum or Plasma 33.8 pg/mL 0.0 -100.0 [facility] ([facility]) ID Date Data Source [id number] 11/30/2019 03:35:[address] [facility] Name Value Range Interpretation Code Description Data Mel rce(s) Supporting Document(s) Leukocytes [#/volume] in Blood by Automated count 17.2 x10*3/UL 4.1-1 0.9 [facility] ([facility]) Erythrocytes [#/volume] in Blood by Automated count 4.58 x10*6/UL 4.2 0-6.30 [facility] ([facility]) MCV 81.1 fL 80.0-97.0 [facility]) Hemoglobin [Mass/volume] in Blood 11.9 g/dL 12.0-18.0 [facility] ([facility]) Hematocrit [Volume Fraction] of Blood by Automated count 37.2 % 3 7.0-51.0 [facility] ([facility]) Erythrocyte distribution width [Ratio] by Automated count 14.2 % 11.6-13.7 [facility] ([facility]) MCH 25.9 pg 26.0-32.0 [facility] ([place] [facility] MCHC 31.9 g/dL 31.0-38.0 [facility]) Lymph % 11.0 % 10.0-58.5 [facility] Platelets [#/volume] in Blood by Automated count 465 x10*3/UL 140-440 [facility] ([facility]) MPV 6.8 FL 7.8-11.0 [facility] ([place] [facility]) Mid % 3.4 % 1.7-9.3 [facility] ([place] [facility]) Neut % 85.6 % 37.0-92.0 [facility] ([place] [facility]) Mid # 0.6 x10*3/UL 0.1-0.6 [facility] ([facility]) Lymph # 1.9 x10*3/UL 0.6-4.1 [facility] ([facility]) Neut # 14.7 x10*3/UL 2.0-7.8 [facility] ([facility]) ID Date Data Source [id number] 11/10/2019 12:00:00 AM EDT [facility] Name Value Range Interpretation Code Description Data Mel rce(s) Supporting Document(s) 2019-nCoV N XXX Ql MOE N2 [facility] [place] This lab was ordered by [facility] and reported by KIERA. ID Date Data Source [id number] 08/04/2019 08:39:00 AM EDT [facility] ([facility]) Name Value Range Interpretation Code Description Data Mel rce(s) Supporting Document(s) Thyrotropin [Units/volume] in Serum or Plasma by Detec tion limit <= 0.05 mIU/L 1.61 uIU/mL 0.36-3.74 [facility] ([facility] ) ID Date Data Source [id number] 08/04/2019 08:39:00 AM EDT [facility] ([facility]) Name Value Range Interpretation Code Description Data Mel rce(s) Supporting Document(s) Sodium [Moles/volume] in Serum or Plasma 141 meq/L 136-145 [facility] ([facility]) Creatinine 0.6 mg/dL 0.6-1.3 [facility]) Glucose [Mass/volume] in Serum or Plasma 147 mg/dL 74-99 [facility] ([facility]) 100-125 mg/dL PRE-DIABETES/FASTING >126 mg/dL DIABETES/FASTING Urea nitrogen [Mass/volume] in Serum or Plasma 15 mg/dL 7-18 [facility] ([facility]) Carbon dioxide, total [Moles/volume] in Serum or Plasma 39 meq/L 21 -32 [facility] ([facility]) Potassium [Moles/volume] in Serum or Plasma 4.1 meq/L 3.5-5.1 [facility] ([facility]) Chloride [Moles/volume] in Serum or Plasma 101 meq/L 98-107 [facility] ([facility]) Calcium [Mass/volume] in Serum or Plasma 8.9 mg/dL 8.5-10.1 [facility] ([facility]) Glomerular filtration rate/1.73 sq M pre dicted among non-blacks [Volume Rate/Area] in Serum or Plasma by Creatinine-based formula (MDRD) Laboratory test result [facility] ([facility] ) Glomerular filtration rate/1.73 sq M pre dicted among blacks [Volume Rate/Area] in Serum or Plasma by Creatinine-based formula (MDRD) Laboratory test result [facility] ([facility]) <content>CHRONIC KIDNEY DISEASE STAGING PER NKF</content>
<content></content>
<content>STAGE I & II GFR >= 60 NORMAL TO MILDLY DECREASED</content>
<content>STAGE III GFR 30-59 MODERATELY DECREASED</content>
<content>STAGE IV GFR 15-29 SEVERELY DECREASED</content>
<content>STAGE V GFR <15 VERY LITTLE GFR LEFT</content>
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
<content></content> ID Date Data Source [id number] 08/04/2019 08:39:00 AM EDT [facility] Name Value Range Interpretation Code Description Data Mel rce(s) Supporting Document(s) Hemoglobin A1c/Hemoglobin.total in Blood 7.7 g/dL 4.8-5.6 [facility] ([facility]) Lab Result Notes: Pre-Diabetes 5.7 - 6.4 % Diabetes = or > 6.5% Glucose mean value [Mass/volume] in Blood Estimated fr om glycated hemoglobin 174 mg/dL 60-110 [facility] ID Date Data Source [id number] 08/04/2019 08:39:00 AM EDT [facility] ([facility]) Name Value Range Interpretation Code Description Data Mel rce(s) Supporting Document(s) Leukocytes [#/volume] in Blood by Automated count 11.1 x10*3/UL 4.1-1 0.9 [facility] NOTE: RESULT VERIFIED. Hematocrit [Volume Fraction] of Blood by Automated count 32.6 % 3 7.0-51.0 [facility] ([facility] Hemoglobin [Mass/volume] in Blood 10.2 g/dL 12.0-18.0 [facility] ([facility]) Erythrocytes [#/volume] in Blood by Automated count 4.03 x10*6/UL 4.2 0-6.30 [facility] Erythrocyte distribution width [Ratio] by Automated count 15.4 % 11.6-13.7 [facility] ([facility]) MCV 80.7 fL 80.0-97.0 [facility]) MCH 25.3 pg 26.0-32.0 [facility]) MCHC 31.4 g/dL 31.0-38.0 [facility] ([facility]) Platelets [#/volume] in Blood by Automated count 434 x10*3/UL 140-440 [facility] ([facility]) Lymph % 21.3 % 10.0-58.5 [facility] ([facility]) MPV 6.9 FL 7.8-11.0 [facility] ([place] [facility] [facility] Lymph # 2.3 x10*3/UL 0.6-4.1 [facility] ([facility]) Mid % 6.5 % 1.7-9.3 [facility] ([place] [facility] [facility]) Neut % 72.2 % 37.0-92.0 [facility] ([place] [facility] [facility]) Mid # 0.8 x10*3/UL 0.1-0.6 [facility] ([facility]) Neut # 8.0 x10*3/UL 2.0-7.8 [facility] ([facility]) Procedure Social History Code Duration Value Status Description Data Source(s ) Smoking 04/12/2020 12:00:00 AM EST Patient is a former smoker completed Patient is a former smoker [facility] ([facility]) Smoking 11/17/2019 12:00:00 AM EDT Patient is a former smoker completed Patient is a former smoker [facility] ([facility] ) Vital Signs ID Date Data Source UNK Name Value Range Interpretation Code Description Data Source(s) Body mass index (BMI) [Ratio] 37.9 kg/m2 37.9 k g/m2 [facility] ([facility]) Body height 65 [in_i] 65 [in_i] [facility]) 5'5" Body weight 228.00 [lb_av] 228.00 [lb_av] MEDEN T ([facility]) Body mass index (BMI) [Ratio] 39.4 kg/m2 39.4 k g/m2 [facility] ([facility]) Oxygen saturation in Arterial blood by Pulse oximetry 90 % 90 % [facility] RM Air Body weight 237.00 [lb_av] 237.00 [lb_av] MED[facility] T ([facility]) Body height 65 [in_i] 65 [in_i] [facility] 5'5" Heart rate 88 /min 88 /min [facility]) Diastolic blood pressure 76 mm[Hg] 76 mm[Hg] [facility]) Systolic blood pressure 120 mm[Hg] 120 mm[Hg] [facility] ([facility]) Diastolic blood pressure--sitting 64 mm[Hg] 64 mm[Hg] [facility]) large cuff, Ra Systolic blood pressure--sitting 130 mm[Hg] 130 mm[Hg] [facility] ([facility]) large cuff, Ra Body mass index (BMI) [Ratio] 39.1 kg/m2 39.1 k g/m2 [facility] ([facility]) Body height 65 [in_i] 65 [in_i] [facility] ([facility]) 5'5" Body weight 235.00 [lb_av] 235.00 [lb_av] MED[facility] T ([facility]) Body mass index (BMI) [Ratio] 39.1 kg/m2 39.1 k g/m2 [facility]) Oxygen saturation in Arterial blood by Pulse oximetry 89 % 89 % [facility]) With O2 @ 3L Body weight 235.00 [lb_av] 235.00 [lb_av] [facility] T ([facility]) Body height 65 [in_i] 65 [in_i] [facility] 5'5" Heart rate 92 /min 92 /min [facility]) Diastolic blood pressure 90 mm[Hg] 90 mm[Hg] [facility]) Systolic blood pressure 150 mm[Hg] 150 mm[Hg] [facility]) Diastolic blood pressure--sitting 70 mm[Hg] 70 mm[Hg] [facility] ([facility]) large cuff, Ra Systolic blood pressure--sitting 134 mm[Hg] 134 mm[Hg] [facility] ([facility]) large cuff, Ra Heart rate 81 /min 81 /min [facility] ([facility]) Body mass index (BMI) [Ratio] 38.8 kg/m2 38.8 k g/m2 [facility] ([facility]) Body height 65 [in_i] 65 [in_i] [facility] 5'5" Body weight 233.00 [lb_av] 233.00 [lb_av] [facility] T ([facility]) Oxygen saturation in Arterial blood by Pulse oximetry 96 % 96 % [facility] ([facility]) Body weight 233.00 [lb_av] 233.00 [lb_av] [facility] T ([facility]) Heart rate 85 /min 85 /min [facility]) Diastolic blood pressure 60 mm[Hg] 60 mm[Hg] [facility] ([facility]) Systolic blood pressure 116 mm[Hg] 116 mm[Hg] [facility] ([facility]) Oxygen saturation in Arterial blood by Pulse oximetry 92 % 92 % [facility] ([facility]) With O2 Body weight 235.00 [lb_av] 235.00 [lb_av] [facility] T ([facility]) Heart rate 87 /min 87 /min [facility]) Diastolic blood pressure 68 mm[Hg] 68 mm[Hg] [facility] ([facility]) Systolic blood pressure 122 mm[Hg] 122 mm[Hg] [facility] Diastolic blood pressure--sitting 70 mm[Hg] 70 mm[Hg] [facility] ([facility]) Systolic blood pressure--sitting 122 mm[Hg] 122 mm[Hg] [facility] ([facility]) Body mass index (BMI) [Ratio] 39.8 kg/m2 39.8 k g/m2 [facility] ([facility]) Body height 65 [in_i] 65 [in_i] [facility] ([facility]) 5'5" Body weight 239.00 [lb_av] 239.00 [lb_av] MED[facility] T ([facility]) Oxygen saturation in Arterial blood by Pulse oximetry 94 % 94 % [facility] ([facility]) With O2 Body weight 232.00 [lb_av] 232.00 [lb_av] [facility] ([facility]) Heart rate 80 /min 80 /min [facility]) Diastolic blood pressure 60 mm[Hg] 60 mm[Hg] [facility] ([facility]) Systolic blood pressure 110 mm[Hg] 110 mm[Hg] [facility] ([facility]) Oxygen saturation in Arterial blood by Pulse oximetry 90 % 90 % [facility] ([facility]) 4L on demand Body weight 224.00 [lb_av] 224.00 [lb_av] [facility] ([facility]) Heart rate 89 /min 89 /min [facility] ([facility]) Diastolic blood pressure 54 mm[Hg] 54 mm[Hg] [facility] ([facility]) Systolic blood pressure 110 mm[Hg] 110 mm[Hg] [facility] ([facility]) Body weight 90.720 kg 90.720 kg [facility] ([facility]) Body mass index (BMI) [Ratio] 33.3 kg/m2 33.3 k g/m2 [facility] ([facility]) Body weight 200.00 [lb_av] 200.00 [lb_av] [facility] Body height 65 [in_i] 65 [in_i] [facility] ([facility]) 5'5" Oxygen saturation in Arterial blood by Pulse oximetry 922 % 922 % [facility] ([facility]) Heart rate 80 /min 80 /min [facility] ([facility]) Diastolic blood pressure 80 mm[Hg] 80 mm[Hg] [facility] ([facility]) Systolic blood pressure 124 mm[Hg] 124 mm[Hg] [facility] ([facility]) Oxygen saturation in Arterial blood by Pulse oximetry 95 % 95 % [facility] ([facility]) Body weight 215.00 [lb_av] 215.00 [lb_av] [facility] ([facility]) Respiratory rate 20 /min 20 /min [facility] ( [facility]) 2L O2 via NC, unlabored and easy respira tions Heart rate 74 /min 74 /min [facility] ([facility]) Diastolic blood pressure 70 mm[Hg] 70 mm[Hg] [facility] ([facility]) Systolic blood pressure 117 mm[Hg] 117 mm[Hg] [facility] ([facility]) Oxygen saturation in Arterial blood by Pulse oximetry 92 % 92 % [facility] ([facility]) Respiratory rate 22 /min 22 /min [facility] ( [facility]) with O2, 2L via nasal cannula Body temperature 98.8 [degF] 98.8 [degF] [facility] ([facility]) Heart rate 78 /min 78 /min [facility] ([facility]) Diastolic blood pressure 60 mm[Hg] 60 mm[Hg] [facility] ([facility]) Systolic blood pressure 110 mm[Hg] 110 mm[Hg] [facility] ([facility]) Oxygen saturation in Arterial blood by Pulse oximetry 90 % 90 % [facility] ([facility]) With O2 Body weight 208.00 [lb_av] 208.00 [lb_av] [facility] Diastolic blood pressure 82 mm[Hg] 82 mm[Hg] [facility] ([facility]) Systolic blood pressure 124 mm[Hg] 124 mm[Hg] [facility] ([facility]) Body weight 92.081 kg 92.081 kg [facility] ([facility]) Body mass index (BMI) [Ratio] 33.8 kg/m2 33.8 k g/m2 [facility] ([facility]) Body weight 203.00 [lb_av] 203.00 [lb_av] [facility] Body height 65 [in_i] 65 [in_i] [facility] ([facility]) 5'5" Oxygen saturation in Arterial blood by Pulse oximetry 903 % 903 % [facility] ([facility], ) Heart rate 80 /min 80 /min [facility] ([facility], ) Diastolic blood pressure 80 mm[Hg] 80 mm[Hg] [facility] ([facility], ) Systolic blood pressure 130 mm[Hg] 130 mm[Hg] [facility] ([facility], )
[2020-07-09] MEDS ORDERED: POTASSIUM CHLORIDE 10 MEQ SR TABLET PO ONE (09:00)
[2020-07-09] MEDS ORDERED: IPRATROPIUM 0.5MG/ALBUTEROL 2.5MG INH SOL UD 3ML (DUONEB) NEB ONE ×2 (09:15→10:30)
--- NOTE | 2020-07-09 09:22 | REP ---
INDICATION: DYSPNEA/COUGH COMPARISON: 06/22/2020 TECHNIQUE: Portable AP view of the chest FINDINGS: The mediastinum and cardiac silhouette are stable and within normal limits for portable technique. Subtle residual right basilar airspace disease cannot be excluded. Pneumothorax. IMPRESSION: Subtle residual right basilar airspace disease improved from prior examination. <Electronically signed by Michael Vasques > 07/09/20 0918
[2020-07-09] MEDS ORDERED: ISOVUE-370 76% 100ML VIAL As Ordered ONE (09:36)
--- NOTE | 2020-07-09 10:02 | REP ---
INDICATION: shortness of breath COMPARISON: 06/22/2020 TECHNIQUE: Axial contrast enhanced images from the thoracic inlet to the upper abdomen using pulmonary embolus technique with multiplanar re-formations. 75 ml Isovue 370 intravenous contrast material administered without complication. This CT examination was performed using the following dose reduction techniques: Automated exposure control, adjustment of mA and/or kv according to the patient's size, and use of iterative reconstruction technique. FINDINGS: Satisfactory enhancement of the pulmonary vasculature is achieved and no filling defects are identified to suggest pulmonary embolus. Further evaluation of the mediastinum demonstrates atherosclerotic changes to the thoracic aorta and coronary arteries without aortic aneurysm or cardiomegaly. No pericardial effusion. The lung cherry demonstrate minimal atelectasis involving the right mid lung zone and bilateral lung bases which appears slightly increased as compared with prior examination. Stable few small lower lobe partially calcified nodules are again identified. No effusion. No pneumothorax. Tracheobronchial tree is patent. No significant adenopathy. IMPRESSION: No evidence for pulmonary embolus. Minimal areas of discoid and linear atelectasis slightly increased from prior examination. <Electronically signed by Michael Vasques > 07/09/20 0914
[2020-07-09 11:43] VITALS: O2SAT 91
[2020-07-09] MEDS ORDERED: PRED20TA PO (11:50)
[2020-07-09 13:17] VITALS: BP 177/80
--- NOTE | 2020-07-10 07:12 | ECGEPIP ---
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
== END 2020-07-09 13:21 | disposition home or self-care (01) ==
LOC: M ED 07:32 → EDBD 07:32 → M ED 13:21
DX: J44.0 Chronic obstructive pulmonary disease with (acute) lower respiratory infection (principal); I50.9 Heart failure, unspecified; Z99.81 Dependence on supplemental oxygen; Z88.8 Allergy status to other drugs, medicaments and biological substances; J30.89 Other allergic rhinitis; Z79.899 Other long term (current) drug therapy; Z79.82 Long term (current) use of aspirin; Z79.4 Long term (current) use of insulin; Z87.891 Personal history of nicotine dependence
CPT/HCPCS: 36600; 71045; 71275; 80048; 80076; 82550; 82553; 82803; 83880; 84443; 84484; 85025; 87804; 93005; 93041; 94640; 96374; 99285; J2930; Q9967; U0003

== ENCOUNTER → 2020-07-09 | Outpatient (REF) | payer MEDICARE, MEDICAID | PROVIDERS: ATTEND Internal Medicine | DX: Z53.9 Procedure and treatment not carried out, unspecified reason (principal) ==

== ENCOUNTER 2020-07-20 07:11 | Emergency (ER) | payer MEDICARE, MEDICAID ==
[~2020-07-20] VITALS: Ht 165.1 cm; Wt 104.5 kg
[2020-07-20] MEDS ORDERED: ALBUTEROL SULFATE 2.5 MG/0.5 ML INH NEB SOLN NEB ONE (07:50)
[2020-07-20] MEDS ORDERED: ALBUTEROL SULFATE 2.5 MG/0.5 ML INH NEB SOLN NEB SCH (08:00)
--- NOTE | 2020-07-20 08:05 | REP ---
INDICATION: DYSPNEA/COUGH. COMPARISON: Comparison chest x-ray July 09, 2020. TECHNIQUE: Portable upright AP chest radiograph. FINDINGS: The lungs are well inflated and free of infiltrate. Pleural angles are sharp. Heart size is normal. Pulmonary vasculature is not increased. EKG monitoring electrodes are seen. IMPRESSION: No active disease. <Electronically signed by Tristan Higgins > 07/20/20 0807
[2020-07-20] MEDS ORDERED: IPRATROPIUM 0.5MG/ALBUTEROL 2.5MG INH SOL UD 3ML (DUONEB) NEB SCH (08:10)
[2020-07-20 08:11] LABS: BASO # 0.1 10^3/uL (0.0-0.2); BASO % 0.6 % (0.0-1.0); EOS # 0.1 10^3/uL (0.0-0.5); EOS % 1.1 % (0.0-3.0); HEMATOCRIT 37.6 % (36.0-47.0); HEMOGLOBIN 10.9 g/dl (12.0-15.5); LYMPH % 15.2 % (24.0-44.0); MEAN CORPUSCULAR HEMOGLOBIN 25.1 pg (27.0-33.0); MEAN CORPUSCULAR VOLUME 86.6 fl (80.0-96.0); MONO # 1.1 10^3/uL (0.0-0.8); NEUTROPHILS # 9.7 10^3/uL (1.5-8.5); NEUTROPHILS % 73.7 % (36.0-66.0); PLATELET COUNT, AUTOMATED 422 10^3/uL (150-450); RED BLOOD COUNT 4.34 10^6/uL (4.00-5.40); WHITE BLOOD COUNT 13.2 10^3/uL (4.0-10.0)
[2020-07-20] MEDS ORDERED: ASPE16CR TOP (08:36)
[2020-07-20] MEDS ORDERED: HUMA100I5 SC (08:36)
[2020-07-20] MEDS ORDERED: TORS100T PO (08:36)
[2020-07-20] MEDS ORDERED: MONI1CRE2 PV (08:36)
[2020-07-20] MEDS ORDERED: LANTINJ4 SC (08:36)
[2020-07-20] MEDS ORDERED: GLIP5TAB8 PO (08:36)
[2020-07-20] MEDS ORDERED: POTA10TA16 PO (08:36)
[2020-07-20] MEDS ORDERED: METF500T13 PO (08:36)
[2020-07-20 08:41] LABS: ALBUMIN 3.4 GM/DL (3.2-5.2); ALT/SGPT 52 U/L (12-78); BILIRUBIN,DIRECT 0.2 MG/DL (0.0-0.2); BILIRUBIN,TOTAL 0.3 MG/DL (0.2-1.0); BLOOD UREA NITROGEN 18 MG/DL (7-18); CALCIUM LEVEL 8.4 MG/DL (8.8-10.2); CARBON DIOXIDE LEVEL 39 MEQ/L (21-32); CHLORIDE LEVEL 93 MEQ/L (98-107); CREATININE FOR GFR 0.66 MG/DL (0.55-1.30); GLOMERULAR FILTRATION RATE > 60.0 (>45); GLUCOSE, FASTING 228 MG/DL (70-100); NT-PRO BNP 99 PG/ML (<125); POTASSIUM SERUM 3.4 MEQ/L (3.5-5.1); SODIUM LEVEL 137 MEQ/L (136-145); TOTAL PROTEIN 6.5 GM/DL (6.4-8.2)
--- OUTSIDE RECORDS SUMMARY | 2020-07-20 08:41 | CCD ---
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 [facility] Name Value Range Interpretation Code Description Data Mel rce(s) Supporting Document(s) SARS coronavirus 2 RNA Not Detected [facility] [place] This lab was ordered by [facility] and reported by [facility]. ID Date Data Source [id number] 06/27/2020 11:26:00 AM EST [facility] Name Value Range Interpretation Code Description Data Mel rce(s) Supporting Document(s) SARS coronavirus 2 RNA [Presence] in Res piratory specimen by MOE with probe detection NEGATIVE [facility] This lab was ordered by [facility] a nd reported by [facility]. ID Date Data Source [id number] 06/22/2020 01:44:00 PM EST [facility] Name Value Range Interpretation Code Description Data Mel rce(s) Supporting Document(s) SARS-CoV-2 (COVID 19) NEGATIVE - SARS-CoV-2 (COVID19) [facility] This lab was ordered by [facility] a nd reported by [facility]. ID Date Data Source [id number] 06/22/2020 01:07:00 PM EST [facility] Name Value Range Interpretation Code Description Data Mel rce(s) Supporting Document(s) SARS COVID ANTIGEN NEGATIVE [facility] a nd reported by [facility]. ID Date Data Source [id number] 06/18/2020 01:00:00 PM EST [facility] Name Value Range Interpretation Code Description Data Mel rce(s) Supporting Document(s) SARS coronavirus 2 RNA Not Detected [facility] [place] This lab was ordered by [facility] and reported by [facility]. ID Date Data Source [id number] 06/11/2020 12:00:00 PM EST [facility] Name Value Range Interpretation Code Description Data Mel rce(s) Supporting Document(s) SARS coronavirus 2 RNA Not Detected [facility] [place] This lab was ordered by [facility] and reported by [facility]. ID Date Data Source [id number] 06/04/2020 06:00:00 AM EST [facility] Name Value Range Interpretation Code Description Data Mel rce(s) Supporting Document(s) SARS coronavirus 2 RNA Not Detected [facility] [place] This lab was ordered by [facility] and reported by [facility]. ID Date Data Source [id number] 05/28/2020 09:00:00 AM EST [facility] Name Value Range Interpretation Code Description Data Mel rce(s) Supporting Document(s) SARS coronavirus 2 RNA Not Detected [facility] [place] This lab was ordered by [facility] and reported by [facility]. ID Date Data Source [id number] 05/25/2020 10:07:00 AM EST [facility] Name Value Range Interpretation Code Description Data Mel rce(s) Supporting Document(s) SARS-CoV-2 (COVID 19) [facility] This lab was ordered by [facility] a nd reported by [facility]. ID Date Data Source [id number] 05/21/2020 10:00:00 AM EST [facility] Name Value Range Interpretation Code Description Data Mel rce(s) Supporting Document(s) SARS coronavirus 2 RNA [facility] This lab was ordered by [facility] and reported by [facility]. ID Date Data Source [id number] 05/14/2020 09:30:00 AM EST [facility] Name Value Range Interpretation Code Description Data Mel rce(s) Supporting Document(s) SARS coronavirus 2 RNA [facility] This lab was ordered by [facility] and reported by [facility]. ID Date Data Source [id number] 05/09/2020 11:59:00 AM EST [facility] Name Value Range Interpretation Code Description Data Mel rce(s) Supporting Document(s) SARS coronavirus 2 RNA [facility] This lab was ordered by [facility] and reported by [facility]. ID Date Data Source [id number] 05/09/2020 12:00:00 AM EST [facility] Name Value Range Interpretation Code Description Data Mel rce(s) Supporting Document(s) SARS-CoV2 Rapid Antigen [facility] This lab was ordered by [facility] and reported by [facility]. ID Date Data Source [id number] 05/04/2020 02:46:00 PM EST [facility] Name Value Range Interpretation Code Description Data Mel rce(s) Supporting Document(s) SARS coronavirus 2 RNA [facility] This lab was ordered by [facility] and reported by [facility]. ID Date Data Source [id number] 04/27/2020 04:34:00 PM EST [facility] Name Value Range Interpretation Code Description Data Mel rce(s) Supporting Document(s) SARS coronavirus 2 RNA [Presence] in Res piratory specimen by MOE with probe detection [facility] This lab was ordered by [facility] a nd reported by [facility]. ID Date Data Source [id number] 04/04/2020 03:27:00 PM EST [facility] ([facility]) Name Value Range Interpretation Code Description Data Mel rce(s) Supporting Document(s) Laboratory test finding (navigational concept) Laboratory test result [facility] ([facility]) ID Date Data Source [id number] 04/02/2020 04:56:00 PM EST [facility] ([facility]) Name Value Range Interpretation Code Description Data Mel rce(s) Supporting Document(s) Respiratory Panel Laboratory test result [facility] ([facility]) This respiratory PCR panel detects Influ [...] - SARS-CoV-2 (COVID19) ID Date Data Source [id number] 04/02/2020 03:21:00 PM EST [facility] ([facility]) Name Value Range Interpretation Code Description Data Mel rce(s) Supporting Document(s) Laboratory test finding (navigational concept) 0.00 ng/mL 0.00-0.08 [facility] ([facility]) ID Date Data Source [id number] 04/02/2020 03:19:00 PM EST [facility] ([facility]) Name Value Range Interpretation Code Description Data Mel rce(s) Supporting Document(s) Laboratory test finding (navigational concept) 36.0 % 38.0-51.0 [facility] ([facility]) Laboratory test finding (navigational concept) 258 mg/dL 70-105 [facility] ([facility]) Laboratory test finding (navigational concept) 138 meq/L 136-145 [facility] ([facility]) Laboratory test finding (navigational concept) 4.3 meq/L 3.5-5.1 [facility] ([facility]) Laboratory test finding (navigational concept) 4.3 mg/dL 4.5-5.3 [facility] ([facility]) Laboratory test finding (navigational concept) 93 meq/L 98-109 [facility] ([facility]) Laboratory test finding (navigational concept) 36.0 MM/L 23.0-27.0 [facility] ([facility]) Laboratory test finding (navigational concept) 0.6 mg/dL 0.6-1.3 [facility] ([facility]) Laboratory test finding (navigational concept) 14 mg/dL 8-26 [facility] ([facility]) ID Date Data Source [id number] 04/02/2020 03:18:00 PM EST [facility] ([facility]) Name Value Range Interpretation Code Description Data Mel rce(s) Supporting Document(s) White Blood Count 15.3 10 4.0-10.0 [facility] ([facility]) Hematocrit 37.8 % 36.0-47.0 [facility] [facility] Red Blood Count 4.22 10 4.00-5.40 [facility] ([facility]) Hemoglobin 10.9 g/dL 12.0-15.5 [facility] Red Cell Distribution Width 15.8 % 11.5-14.5 [place] ([facility]) Mean Corpuscular Hemoglobin 25.8 pg 27.0-33.0 [place] [facility] ([facility]) Mean Corpuscular HGB Conc 28.8 g/dL 32.0-36.5 MEDE NT ([facility]) Mean Corpuscular Volume 89.6 fl 80.0-96.0 [facility] ([facility]) Lymph % 9.3 % 24.0-44.0 [facility] [facility] Platelet Count, Automated 396 10 150-450 [facility] NT ([facility]) Neutrophils % 82.6 % 36.0-66.0 [facility] ([facility]) [place] % 6.1 % 0.0-5.0 [facility] [facility] Eos % 0.9 % 0.0-3.0 [facility] [facility]) Immature Granulocyte % 0.8 % 0-3.0 [facility] ([facility]) Baso % 0.3 % 0.0-1.0 [facility] [facility]) Lymph # 1.4 10 1.5-5.0 [facility] [facility]) Nucleated Red Blood Cell % 0.0 % 0-0 MED [facility] ([facility]) Neutrophils # 12.6 10 1.5-8.5 [facility] ([facility]) Baso # 0.1 10 0.0-0.2 [facility] [facility] [place] # 0.9 10 0.0-0.8 [facility] ([place] [facility]) Eos # 0.1 10 0.0-0.5 [facility] [facility]) ID Date Data Source [id number] 04/02/2020 03:18:00 PM EST [facility] ([facility]) Name Value Range Interpretation Code Description Data Mel rce(s) Supporting Document(s) Alt/SGPT 47 U/L 12-78 [facility] [facility] Ast/Sgot 29 U/L 7-37 [facility] [facility] Total Protein 6.9 GM/DL 6.4-8.2 [facility] ([facility]) Alkaline Phosphatase 135 U/L 45-117 [facility] ([facility]) Bilirubin,Total 0.3 mg/dL 0.2-1.0 [facility] ([facility]) Bilirubin,Direct 0.1 mg/dL 0.0-0.2 [facility] Albumin/Globulin Ratio 1.0 1.2-2.2 [facility] Albumin 3.5 GM/DL 3.2-5.2 [facility] [facility] ID Date Data Source [id number] 04/02/2020 03:18:00 PM EST [facility] Name Value Range Interpretation Code Description Data Mel rce(s) Supporting Document(s) Natriuretic peptide.B prohormone N-Terminal [Mass/volu me] in Serum or Plasma 52 pg/mL [facility] Thyrotropin [Units/volume] in Serum or Plasma by Detec tion limit <= 0.05 mIU/L 0.434 uIU/ML 0.358-3.740 [facility] Lactate [Mass/volume] in Serum or Plasma 3.3 mmol/L 0.4-2.0 Above upper panic limits [facility] Y/N query for Sepsis Lactate Rule: Y ID Date Data Source [id number] 03/14/2020 11:39:00 AM EDT [facility] Name Value Range Interpretation Code Description Data Mel rce(s) Supporting Document(s) Hemoglobin A1c/Hemoglobin.total in Blood 7.2 % [facility] Lab Result Notes: Pre-Diabetes 5.7 - 6.4 % Diabetes = or > 6.5% Glucose mean value [Mass/volume] in Blood Estimated fr om glycated hemoglobin 160 mg/dL 60-110 [facility] ID Date Data Source [id number] 03/14/2020 11:39:00 AM EDT [facility] ([facility]) Name Value Range Interpretation Code Description Data Mel rce(s) Supporting Document(s) Leukocytes [#/volume] in Blood by Automated count 9.4 x10*3/UL 4.1-10 .9 [facility] ([facility]) Hemoglobin [Mass/volume] in Blood 11.2 g/dL 12.0-18.0 [facility] ([facility]) NOTE: RESULT VERIFIED. Hematocrit [Volume Fraction] of Blood by Automated count 34.7 % 3 7.0-51.0 [facility] Erythrocytes [#/volume] in Blood by Automated count 4.22 x10*6/UL 4.2 0-6.30 [facility] ([facility]) MCV 82.1 fL 80.0-97.0 [facility] ([place] [facility]) MCH 26.6 pg 26.0-32.0 [facility] ([place] [facility]) MCHC 32.4 g/dL 31.0-38.0 [facility] ([place] [facility]) Erythrocyte distribution width [Ratio] by Automated count 15.3 % 11.6-13.7 [facility] Platelets [#/volume] in Blood by Automated count 416 x10*3/UL 140-440 [facility] ([facility]) MPV 7.2 FL 7.8-11.0 [facility] ([place] [facility]) Lymph % 17.4 % 10.0-58.5 [facility] ([place] [facility]) Mid % 5.6 % 1.7-9.3 [facility] ([place] [facility]) Neut % 77.0 % 37.0-92.0 [facility] ([place] [facility]) Lymph # 1.6 x10*3/UL 0.6-4.1 [facility] ([facility]) Neut # 7.3 x10*3/UL 2.0-7.8 [facility] ([facility]) Mid # 0.5 x10*3/UL 0.1-0.6 [facility] ([facility]) ID Date Data Source [id number] 03/14/2020 11:39:00 AM EDT [facility] ([facility]) Name Value Range Interpretation Code Description Data Mel rce(s) Supporting Document(s) Glucose [Mass/volume] in Serum or Plasma 142 mg/dL 74-99 [facility] ([facility]) 100-125 mg/dL PRE-DIABETES/FASTING >126 mg/dL DIABETES/FASTING Creatinine 0.8 mg/dL 0.6-1.3 [facility] ([facility]) Urea nitrogen [Mass/volume] in Serum or Plasma 13 mg/dL 7-18 [facility] ([facility]) Sodium [Moles/volume] in Serum or Plasma 142 meq/L 136-145 [facility] ([facility]) Chloride [Moles/volume] in Serum or Plasma 100 meq/L 98-107 [facility] ([facility]) Potassium [Moles/volume] in Serum or Plasma 3.4 meq/L 3.5-5.1 [facility] ([facility]) NOTE: RESULT VERIFIED. Glomerular filtration rate/1.73 sq M pre dicted among non-blacks [Volume Rate/Area] in Serum or Plasma by Creatinine-based formula (MDRD) Laboratory test result [facility] Carbon dioxide, total [Moles/volume] in Serum or Plasma 34 meq/L 21 -32 [facility] ([facility]) Calcium [Mass/volume] in Serum or Plasma 8.7 mg/dL 8.5-10.1 [facility] ([facility]) Glomerular filtration rate/1.73 sq M pre dicted among blacks [Volume Rate/Area] in Serum or Plasma by Creatinine-based formula (MDRD) Laboratory test result [facility] <content>CHRONIC KIDNEY DISEASE STAGING PER NKF</content>
<content></content>
<content>STAGE I & II GFR >= 60 NORMAL TO MILDLY DECREASED</content>
<content>STAGE III GFR 30-59 MODERATELY DECREASED</content>
<content>STAGE IV GFR 15-29 SEVERELY DECREASED</content>
<content>STAGE V GFR <15 VERY LITTLE GFR LEFT</content>
<content>ESRD GFR <15 ON GREEN PLUMBER</content>
<content></content> ID Date Data Source [id number] 03/14/2020 11:39:00 AM EDT [facility] ([facility]) Name Value Range Interpretation Code Description Data Mel rce(s) Supporting Document(s) Hemoglobin A1c/Hemoglobin.total in Blood Laboratory test result [facility] ID Date Data Source [id number] 02/27/2020 04:35:00 PM EDT [facility] ([facility]) Name Value Range Interpretation Code Description Data Mel rce(s) Supporting Document(s) Calcium [Mass/volume] in Serum or Plasma 8.7 [facility] ([facility]) Sodium 141 [facility] ([facility]) Carbon dioxide, total [Moles/volume] in Serum or Plasma 38 [facility] ([facility]) Glucose 127 70-100 [facility] ([facility]) Potassium [Moles/volume] in Serum or Plasma 4.3 [facility] ([facility]) Chloride [Moles/volume] in Serum or Plasma 98 [facility] ([facility]) Blood Urea Nitrogen 13 7-18 [facility] ([facility]) Creatinine 0.62 0.55-1.30 [facility] ([facility]) Glomerular filtration rate/1.73 sq M.pre dicted [Volume Rate/Area] in Serum or Plasma by Creatinine-based formula (MDRD) Laboratory test result [facility] ([facility]) ID Date Data Source [id number] 02/14/2020 10:19:00 PM EDT [facility] Name Value Range Interpretation Code Description Data Mel rce(s) Supporting Document(s) MB/CK Relative Index 1.69 [facility] ([facility]) <content>DIAGNOSIS CRITERIA</content>
<content>MMB ng/ml Relative Index (RI)</content>
<content>NON-AMI < or = 5 N/A</content>
<content>MILTON ZONE > 5 < or = 4</content>
<content>AMI > 5 > 4</content>
<content></content> CK-MB Value Mass Laboratory test result [facility] ([facility]) CPK Creatine Phosphokinase 59 U/L 26-192 [facility] ([facility]) Troponin I Laboratory [facility] <content>Troponin I Reference Interval f or Siemens [place] LOCI:</content>
<content></content>
<content>99th Percentile= 0.00-0.045 ng/ml</content>
<content></content>
<content>Risk Stratification:</content>
<content><= 0.10 ng/ml Decreased Risk for Adverse Clinical</content>
<content>Events.</content>
<content>0.10-1.50 ng/ml Increased Risk for Adverse Clinical</content>
<content>Events. Evaluation of additional</content>
<content>criterion and/or repeat testing in 2-6</content>
<content>hours is suggested to rule out myocardial</content>
<content>damage.</content>
<content>>= 1.50 ng/ml Indicative of Myocardial Injury.</content>
<content></content> ID Date Data Source [id number] 02/14/2020 07:38:00 PM EDT [facility] ([facility]) Name Value Range Interpretation Code Description Data Mel rce(s) Supporting Document(s) Lactate [Mass/volume] in Serum or Plasma 1.9 mmol/L 0.4-2.0 [facility] ([facility]) Y/N query for Sepsis Lactate Rule: Y ID Date Data Source [id number] 02/14/2020 07:38:00 PM EDT [facility] ([facility]) Name Value Range Interpretation Code Description Data Mel rce(s) Supporting Document(s) Red Blood Count 4.03 10 4.00-5.40 [facility] ([facility]) White Blood Count 11.8 10 4.0-10.0 [facility] ([facility]) Hematocrit 34.6 % 36.0-47.0 [facility] ([facility]) Mean Corpuscular Hemoglobin 25.8 pg 27.0-33.0 [facility] ([facility]) Hemoglobin 10.4 g/dL 12.0-15.5 [facility] [facility] Mean Corpuscular Volume 85.9 fl 80.0-96.0 [facility] ([facility]) Platelet Count, Automated 347 10 150-450 [facility] ([facility]) Mean Corpuscular HGB Conc 30.1 g/dL 32.0-36.5 [facility] ([facility]) Red Cell Distribution Width 15.8 % 11.5-14.5 [facility] ([facility]) [place] % 6.8 % 0.0-5.0 [facility] [facility]) Neutrophils % 75.2 % 36.0-66.0 [facility] ([facility]) Lymph % 16.1 % 24.0-44.0 [facility] [facility]) Immature Granulocyte % 0.7 % 0-3.0 [facility] ([facility]) Baso % 0.4 % 0.0-1.0 [facility] [facility]) Eos % 0.8 % 0.0-3.0 [facility] [facility]) [place] # 0.8 10 0.0-0.8 [facility] [facility]) Lymph # 1.9 10 1.5-5.0 [facility] [facility]) Nucleated Red Blood Cell % 0.0 % 0-0 [facility] ([facility]) Neutrophils # 8.9 10 1.5-8.5 [facility] ([facility]) Baso # 0.1 10 0.0-0.2 [facility] [facility]) Eos # 0.1 10 0.0-0.5 [facility] [facility]) ID Date Data Source [id number] 02/14/2020 07:38:00 PM EDT [facility] ([facility]) Name Value Range Interpretation Code Description Data Mel rce(s) Supporting Document(s) CPK Creatine Phosphokinase 55 U/L 26-192 [facility] ([facility]) Troponin I Laboratory test result [facility] ([facility]) <content>Troponin I Reference Interval f or Siemens [place] LOCI:</content>
<content></content>
<content>99th Percentile= 0.00-0.045 ng/ml</content>
<content></content>
<content>Risk Stratification:</content>
<content><= 0.10 ng/ml Decreased Risk for Adverse Clinical</content>
<content>Events.</content>
<content>0.10-1.50 ng/ml Increased Risk for Adverse Clinical</content>
<content>Events. Evaluation of additional</content>
<content>criterion and/or repeat testing in 2-6</content>
<content>hours is suggested to rule out myocardial</content>
<content>damage.</content>
<content>>= 1.50 ng/ml Indicative of Myocardial Injury.</content>
<content></content> MB/CK Relative Index 1.82 [facility] <content>DIAGNOSIS CRITERIA</content>
<content>MMB ng/ml Relative Index (RI)</content>
<content>NON-AMI < or = 5 N/A</content>
<content>MILTON ZONE > 5 < or = 4</content>
<content>AMI > 5 > 4</content>
<content></content> CK-MB Value Mass Laboratory test result [facility]) ID Date Data Source [id number] 02/14/2020 07:38:00 PM EDT [facility] ([facility]) Name Value Range Interpretation Code Description Data Mel rce(s) Supporting Document(s) Venous Partial Pressure Co2 48.9 mmHg 38.0-50.0 [facility] ([facility]) Venous PH 7.411 units 7.330-7.430 [facility]) Venous Hco3 30.4 meq/L 23.0-27.0 [facility] ([facility]) Venous Total Co2 31.9 meq/L 24.0-28.0 [facility] ([facility]) Venous Partial Pressure O2 110.2 mmHg 30.0-50.0 [facility] ([facility]) Venous Base Excess 4.9 [facility] ([facility]) Venous Standard Hco3 28.9 meq/L [facility] ( [facility]) Venous O2 Saturation 96.4 % 60.0-80.0 [facility] ([facility] [place] [facility]) ID Date Data Source [id number] 02/14/2020 07:38:00 PM EDT [facility] ([facility]) Name Value Range Interpretation Code Description Data Mel rce(s) Supporting Document(s) Ast/Sgot 15 U/L 7-37 [facility] ([place] [facility]) Alt/SGPT 31 U/L 12-78 [facility] ([facility]) Bilirubin,Total 0.3 mg/dL 0.2-1.0 [facility] ([facility]) Alkaline Phosphatase 126 U/L 45-117 [facility] ([facility]) Albumin 3.2 GM/DL 3.2-5.2 [facility] ([place] [facility]) Bilirubin,Direct Laboratory test result 0.0-0.2 [facility] ([facility]) Total Protein 6.4 GM/DL 6.4-8.2 [facility] ([facility]) Albumin/Globulin Ratio 1.0 1.2-2.2 [facility] ([facility]) ID Date Data Source [id number] 02/14/2020 07:38:00 PM EDT [facility] ([facility]) Name Value Range Interpretation Code Description Data Mel rce(s) Supporting Document(s) Glucose, Fasting 181 mg/dL 70-100 [facility] ([facility]) Glomerular Filtration Rate Laboratory test result [facility] ([facility]) <content>Units are mL/min/1.73 m2</content>
<content></content>
<content>Chronic Kidney Disease Staging per NKF:</content>
<content></content>
<content>Stage I & II GFR >=60 Normal to Mildly Decreased</content>
<content>Stage III GFR 30- 59 Moderately Decreased</content>
<content>Stage IV GFR 15-29 Severely Decreased</content>
<content>Stage V GFR <15 Very Little GFR Left</content>
<content>ESRD GFR <15 on GREEN PLUMBER</content>
<content></content> Sodium Level 142 meq/L 136-145 [facility] ([facility]) Blood Urea Nitrogen 12 mg/dL 7-18 [facility] ([facility]) Creatinine For GFR 0.66 mg/dL 0.55-1.30 [facility] ([facility]) Potassium Serum 3.8 meq/L 3.5-5.1 [facility] ([facility]) Chloride Level 103 meq/L 98-107 [facility] ([facility]) Carbon Dioxide Level 32 meq/L 21-32 [facility] ([facility]) Anion Gap 7 meq/L 8-16 [facility] ([place] [facility]) Calcium Level 8.3 mg/dL 8.8-10.2 [facility] ([facility]) ID Date Data Source [id number] 02/14/2020 07:38:00 PM EDT [facility] Name Value Range Interpretation Code Description Data Mel rce(s) Supporting Document(s) Natriuretic peptide.B prohormone N-Terminal [Mass/volu me] in Serum or Plasma 50 pg/mL [facility] [facility] Thyrotropin [Units/volume] in Serum or Plasma by Detec tion limit <= 0.05 mIU/L 0.143 uIU/ML 0.358-3.740 [facility] ([facility] ) ID Date Data Source [id number] 02/14/2020 07:38:00 PM EDT [facility] Name Value Range Interpretation Code Description Data Mel rce(s) Supporting Document(s) Blood Culture Laboratory test result [facility] [facility] No growth after 72 hours . All specimens observed for 5 days. Results final at that time. No growth after 48 hours . All specimens observed for 5 days. Results final at that time. No growth after 24 hours . All specimens observed for 5 days. Results final at that time. NO GROWTH AFTER 5 DAYS ID Date Data Source [id number] 02/14/2020 12:51:00 PM EDT [facility] ([facility]) Name Value Range Interpretation Code Description Data Mel rce(s) Supporting Document(s) Thyroid Stimulating Hormone 0.143 [facility] [place] ID Date Data Source [id number] 02/14/2020 12:51:00 PM EDT [facility] ([facility]) Name Value Range Interpretation Code Description Data Mel rce(s) Supporting Document(s) Galectin 3 [Mass/volume] in Serum or Plasma 50 [facility] [place] ID Date Data Source [id number] 02/14/2020 12:51:00 PM EDT [facility] ([facility]) Name Value Range Interpretation Code Description Data Mel rce(s) Supporting Document(s) Troponin Laboratory test result [facility] [place] ID Date Data Source [id number] 02/14/2020 12:51:00 PM EDT [facility] ([facility]) Name Value Range Interpretation Code Description Data Mel rce(s) Supporting Document(s) Alanine aminotransferase [Enzymatic activity/volume] in Serum or Pl asma 31 [facility] ([facility]) Calcium [Mass/volume] in Serum or Plasma 8.3 [facility] ([facility] Albumin [Mass/volume] in Serum or Plasma 3.2 [facility] ([facility] Carbon dioxide, total [Moles/volume] in Serum or Plasma 32 [facility] ([facility]) Chloride [Moles/volume] in Serum or Plasma 103 [facility] [place] Protein [Mass/volume] in Serum or Plasma 6.4 [facility] ([facility]) Potassium [Moles/volume] in Serum or Plasma 3.8 [facility] ([facility]) Alkaline phosphatase [Enzymatic activity/volume] in Serum or Plasma 1 26 [facility] ([facility] Aspartate aminotransferase [Enzymatic activity/volume] in Serum or Plasma 15 [facility] ([facility]) Sodium 142 [facility] ([facility]) Urea nitrogen [Mass/volume] in Serum or Plasma 12 [facility] ([facility]) Creatinine For GFR 0.66 [facility] ([facility]) Glucose 181 70-100 [facility] ([facility]) ID Date Data Source [id number] 02/14/2020 12:51:00 PM EDT [facility] ([facility]) Name Value Range Interpretation Code Description Data Mel rce(s) Supporting Document(s) White Blood Count 11.8 4.3-10.9 [facility] ([facility]) Red Blood Count 4.03 4.70-6.20 [facility] ([facility]) Platelets 347 130-400 [facility] ([facility]) Hemoglobin 10.4 13.0-17.0 [facility] ([facility]) Hematocrit 34.6 39.0-50.0 [facility] ([facility]) ID Date Data Source [id number] 02/01/2020 03:17:00 PM EDT [facility] ([facility]) Name Value Range Interpretation Code Description Data Mel rce(s) Supporting Document(s) Natriuretic peptide B [Mass/volume] in Serum or Plasma 22.6 pg/mL 0.0 -100.0 [facility] ([facility]) ID Date Data Source [id number] 02/01/2020 03:17:00 PM EDT [facility] ([facility]) Name Value Range Interpretation Code Description Data Mel rce(s) Supporting Document(s) Glucose [Mass/volume] in Serum or Plasma 326 mg/dL 74-99 [facility] ([facility]) 100-125 mg/dL PRE-DIABETES/FASTING >126 mg/dL DIABETES/FASTING Creatinine 0.9 mg/dL 0.6-1.3 [facility] ([place] [facility]) Sodium [Moles/volume] in Serum or Plasma 139 meq/L 136-145 [facility] ([facility]) Urea nitrogen [Mass/volume] in Serum or Plasma 22 mg/dL 7-18 [facility] ([facility]) Chloride [Moles/volume] in Serum or Plasma 99 meq/L 98-107 [facility] ([facility]) Carbon dioxide, total [Moles/volume] in Serum or Plasma 29 meq/L 21 -32 [facility] ([facility]) Potassium [Moles/volume] in Serum or Plasma 4.2 meq/L 3.5-5.1 [facility] ([facility]) Glomerular filtration rate/1.73 sq M pre dicted among blacks [Volume Rate/Area] in Serum or Plasma by Creatinine-based formula (MDRD) Laboratory test result [facility] ([facility]) <content>CHRONIC KIDNEY DISEASE STAGING PER NKF</content>
<content></content>
<content>STAGE I & II GFR >= 60 NORMAL TO MILDLY DECREASED</content>
<content>STAGE III GFR 30-59 MODERATELY DECREASED</content>
<content>STAGE IV GFR 15-29 SEVERELY DECREASED</content>
<content>STAGE V GFR <15 VERY LITTLE GFR LEFT</content>
<content>ESRD GFR <15 ON GREEN PLUMBER</content>
<content></content> Glomerular filtration rate/1.73 sq M pre dicted among non-blacks [Volume Rate/Area] in Serum or Plasma by Creatinine-based formula (MDRD) Laboratory test result [facility] ([place] [facility] Calcium [Mass/volume] in Serum or Plasma 8.7 mg/dL 8.5-10.1 [facility] ([facility]) ID Date Data Source [id number] 01/29/2020 07:13:00 PM EDT [facility] Name Value Range Interpretation Code Description Data Mel rce(s) Supporting Document(s) ABG Partial Pressure Co2 48.6 mmHg 35.0-45.0 [facility] ([facility]) ABG pH (Arterial) 7.418 units 7.350-7.450 [facility] [place] [facility]) ABG Hco3 30.7 meq/L 22.0-26.0 [facility] ([facility]) ABG Partial Pressure O2 72.5 mmHg 75.0-100.0 [facility] ([facility] [facility]) ABG Total Co2 32.2 meq/L 23.0-31.0 [facility] ([facility]) ABG Base Excess 5.3 [facility] ([facility] [facility]) ABG O2 Saturation 92.7 % 95.0-99.0 [facility] ([facility] ABG Standard Hco3 29.2 meq/L 22.0-26.0 [facility] ([facility]) ID Date Data Source [id number] 01/29/2020 05:37:00 PM EDT [facility] ([facility]) Name Value Range Interpretation Code Description Data Mel rce(s) Supporting Document(s) Blood Culture Laboratory test result [facility] ([facility] [facility]) No growth after 72 hours . All specimens observed for 5 days. Results final at that time. No growth after 48 hours . All specimens observed for 5 days. Results final at that time. No growth after 24 hours . All specimens observed for 5 days. Results final at that time. NO GROWTH AFTER 5 DAYS ID Date Data Source [id number] 01/29/2020 05:27:00 PM EDT [facility] ([facility]) Name Value Range Interpretation Code Description Data Mel rce(s) Supporting Document(s) Alkaline Phosphatase 163 U/L 45-117 [facility] Ast/Sgot 18 U/L 7-37 [facility] ([place] [facility]) Alt/SGPT 32 U/L 12-78 [facility] ([facility]) Bilirubin,Direct Laboratory test result 0.0-0.2 [facility] ([facility]) Total Protein 6.4 GM/DL 6.4-8.2 [facility] ([facility]) Bilirubin,Total 0.2 mg/dL 0.2-1.0 [facility] ([facility]) Albumin/Globulin Ratio 1.0 1.2-2.2 [facility] ([facility]) Albumin 3.2 GM/DL 3.2-5.2 [facility] ([place] [facility]) ID Date Data Source [id number] 01/29/2020 05:27:00 PM EDT [facility]) Name Value Range Interpretation Code Description Data Mel rce(s) Supporting Document(s) Inr 0.91 [facility] ([facility]) THERAPUTIC HUMAN INR VALUES INDICATIONS NORMAL RANGES PROPHYLAXIS/TREATMENT OF: VENOUS THROMBOSIS 2.0-3.0 PULMONARY EMBOLISM 2.0-3.0 PREVENTION OF SYSTEMIC EMBOLISM FROM: TISSUE HEART VALVES 2.0-3.0 ACUTE MYOCARDIAL INFARCTION 2.0-3.0 VALVULAR HEART DISEASE 2.0-3.0 ATRIAL FIBRILLATION 2.0-3.0 MECHANICAL VALVES(HIGH RISK) 2.5-3.5 RECURRENT MYOCARDIAL INFARCTION 2.5-3.5 Prothrombin Time 12.4 s 11.8-14.0 [facility]) ID Date Data Source [id number] 01/29/2020 05:27:00 PM EDT [facility] ([facility]) Name Value Range Interpretation Code Description Data Mel rce(s) Supporting Document(s) CK-MB Value Mass 1.5 ng/mL [facility] CPK Creatine Phosphokinase 55 U/L 26-192 [facility] ([facility]) MB/CK Relative Index 2.73 [facility] ([facility] [place]) <content>DIAGNOSIS CRITERIA</content>
<content>MMB ng/ml Relative Index (RI)</content>
<content>NON-AMI < or = 5 N/A</content>
<content>MILTON ZONE > 5 < or = 4</content>
<content>AMI > 5 > 4</content>
<content></content> Troponin I Laboratory test result [facility] [facility] <content>Troponin I Reference Interval f or Siemens [place] LOCI:</content>
<content></content>
<content>99th Percentile= 0.00-0.045 ng/ml</content>
<content></content>
<content>Risk Stratification:</content>
<content><= 0.10 ng/ml Decreased Risk for Adverse Clinical</content>
<content>Events.</content>
<content>0.10-1.50 ng/ml Increased Risk for Adverse Clinical</content>
<content>Events. Evaluation of additional</content>
<content>criterion and/or repeat testing in 2-6</content>
<content>hours is suggested to rule out myocardial</content>
<content>damage.</content>
<content>>= 1.50 ng/ml Indicative of Myocardial Injury.</content>
<content></content> ID Date Data Source [id number] 01/29/2020 05:27:00 PM EDT [facility] ([facility]) Name Value Range Interpretation Code Description Data Mel rce(s) Supporting Document(s) Blood Urea Nitrogen 15 mg/dL 7-18 [facility] ([facility]) Creatinine For GFR 0.81 mg/dL 0.55-1.30 [facility] ([facility]) Glucose, Fasting 264 mg/dL 70-100 [facility] ([facility]) Sodium Level 142 meq/L 136-145 [facility] ([facility] [facility]) Glomerular Filtration Rate Laboratory test result [facility] ([facility] [facility]) <content>Units are mL/min/1.73 m2</content>
<content></content>
<content>Chronic Kidney Disease Staging per NKF:</content>
<content></content>
<content>Stage I & II GFR >=60 Normal to Mildly Decreased</content>
<content>Stage III GFR 30- 59 Moderately Decreased</content>
<content>Stage IV GFR 15-29 Severely Decreased</content>
<content>Stage V GFR <15 Very Little GFR Left</content>
<content>ESRD GFR <15 on GREEN PLUMBER</content>
<content></content> Potassium Serum 4.2 meq/L 3.5-5.1 [facility] ([facility]) Carbon Dioxide Level 31 meq/L 21-32 [facility] Anion Gap 7 meq/L 8-16 [facility] ([place] [facility]) Chloride Level 104 meq/L 98-107 [facility] ([facility]) Calcium Level 8.1 mg/dL 8.8-10.2 [facility] ([facility]) ID Date Data Source [id number] 01/29/2020 05:27:00 PM EDT [facility]) Name Value Range Interpretation Code Description Data Mel rce(s) Supporting Document(s) Natriuretic peptide.B prohormone N-Terminal [Mass/volu me] in Serum or Plasma 73 pg/mL [facility] ([facility] ) Thyrotropin [Units/volume] in Serum or Plasma by Detec tion limit <= 0.05 mIU/L 0.292 uIU/ML 0.358-3.740 [facility] ([facility] ) Thyroxine (T4) Ab [Units/volume] in Serum 7.2 ug/dL 4.5-12.0 [facility] ([facility]) Lactate [Mass/volume] in Serum or Plasma 2.5 mmol/L 0.4-2.0 Above upper panic limits [facility] ([facility]) Y/N query for Sepsis Lactate Rule: Y ID Date Data Source [id number] 01/29/2020 05:27:00 PM EDT [facility] Name Value Range Interpretation Code Description Data [facility] Supporting Document(s) Blood Culture Laboratory test result [facility] ([place] [facility] No growth after 72 hours . All specimens observed for 5 days. Results final at that time. No growth after 48 hours . All specimens observed for 5 days. Results final at that time. No growth after 24 hours . All specimens observed for 5 days. Results final at that time. NO GROWTH AFTER 5 DAYS ID Date Data Source [id number] 01/29/2020 05:27:00 PM EDT [facility] ([facility]) Name Value Range Interpretation Code Description Data [facility] rce(s) Supporting Document(s) White Blood Count 12.8 10 4.0-10.0 [facility]) Red Blood Count 3.81 10 4.00-5.40 [facility]) Hemoglobin 9.7 g/dL 12.0-15.5 [facility] ([facility]) Hematocrit 33.1 % 36.0-47.0 [facility] ([facility]) Mean Corpuscular Volume 86.9 fl 80.0-96.0 [facility] ([facility]) Mean Corpuscular Hemoglobin 25.5 pg 27.0-33.0 [facility] ([facility]) Platelet Count, Automated 378 10 150-450 [facility] ([facility]) Mean Corpuscular HGB Conc 29.3 g/dL 32.0-36.5 [facility] ([facility] [facility]) Red Cell Distribution Width 15.8 % 11.5-14.5 [facility] ([facility] [facility]) Neutrophils % 81.3 % 36.0-66.0 [facility] ([facility]) [place] % 5.2 % 0.0-5.0 [facility] [facility] Lymph % 11.6 % 24.0-44.0 [facility] ([place] [facility]) Nucleated Red Blood Cell % 0.0 % 0-0 [facility] ([facility] [facility]) Eos % 0.5 % 0.0-3.0 [facility] [facility] Immature Granulocyte % 1.0 % 0-3.0 [facility] ([facility] [facility]) Baso % 0.4 % 0.0-1.0 [facility] [facility] Neutrophils # 10.4 10 1.5-8.5 [facility] ([facility]) [place] # 0.7 10 0.0-0.8 [facility] ([place] [facility]) Lymph # 1.5 10 1.5-5.0 [facility] [facility] Baso # 0.1 10 0.0-0.2 [facility] [facility] Eos # 0.1 10 0.0-0.5 [facility] [facility] ID Date Data Source [id number] 01/29/2020 05:25:00 PM EDT [facility] ([facility]) Name Value Range Interpretation Code Description Data Mel rce(s) Supporting Document(s) ABG pH (Arterial) 7.407 units 7.350-7.450 [facility] ( [facility] [facility]) ABG Partial Pressure O2 149.8 mmHg 75.0-100.0 [facility] ([facility]) ABG Hco3 28.7 meq/L 22.0-26.0 [facility] ([place] [facility]) ABG Total Co2 30.2 meq/L 23.0-31.0 [facility] ([facility]) ABG Partial Pressure Co2 46.7 mmHg 35.0-45.0 [facility] ([place] [facility]) ABG O2 Saturation 97.2 % 95.0-99.0 [facility] ([facility]) ABG Base Excess 3.5 [facility] ([facility]) ABG Standard Hco3 27.6 meq/L 22.0-26.0 [facility] ([facility]) ID Date Data Source [id number] 12/15/2019 11:21:00 AM EDT [facility] ([facility]) Name Value Range Interpretation Code Description Data Mel rce(s) Supporting Document(s) Erythrocytes [#/volume] in Blood by Automated count 4.00 x10*6/UL 4.2 0-6.30 [facility] ([facility] [facility]) Leukocytes [#/volume] in Blood by Automated count 9.5 x10*3/UL 4.1-10 .9 [facility] ([facility] [facility]) Hemoglobin [Mass/volume] in Blood 10.4 g/dL 12.0-18.0 [facility] ([facility] [facility]) NOTE: RESULT VERIFIED. Hematocrit [Volume Fraction] of Blood by Automated count 32.3 % 3 7.0-51.0 [facility] ([facility] [facility]) MCV 80.7 fL 80.0-97.0 [facility] ([place] [facility]) Erythrocyte distribution width [Ratio] by Automated count 14.3 % 11.6-13.7 [facility] ([facility] [facility]) MCHC 32.4 g/dL 31.0-38.0 [facility] [facility] MCH 26.1 pg 26.0-32.0 [facility] ([place] [facility]) Mid % 3.6 % 1.7-9.3 [facility] ([place] [facility]) Platelets [#/volume] in Blood by Automated count 352 x10*3/UL 140-440 [facility] ([facility]) Lymph % 12.7 % 10.0-58.5 [facility] ([place] [facility]) MPV 7.2 FL 7.8-11.0 [facility] ([place] [facility]) Neut % 83.7 % 37.0-92.0 [facility] ([place] [facility]) Lymph # 1.2 x10*3/UL 0.6-4.1 [facility] ([facility] [facility]) Mid # 0.4 x10*3/UL 0.1-0.6 [facility] ([facility] [facility]) Neut # 7.9 x10*3/UL 2.0-7.8 [facility] ([facility] [facility]) ID Date Data Source [id number] 12/10/2019 12:41:00 PM EDT [facility] ([facility]) Name Value Range Interpretation Code Description Data Mel rce(s) Supporting Document(s) Laboratory test finding (navigational concept) 62.0 MMHG 3 5.0-45.0 Above upper panic limits [facility] ([facility] [facility]) Laboratory test finding (navigational concept) 7.372 units 7.350-7.45 0 [facility] ([facility] [facility]) Laboratory test finding (navigational concept) 73.0 MMHG 80-105 [facility] ([facility] [facility]) Laboratory test finding (navigational concept) 36.0 mmol/L 22.0-26.0 [facility] ([facility] [facility]) Laboratory test finding (navigational concept) 38.0 mmol/L 23.0-27.0 [facility] ([facility] [facility]) Laboratory test finding (navigational concept) 93 % 95-98 [facility] ([facility] [facility]) Laboratory test finding (navigational concept) 11.0 mmol/L [facility] ([place] [facility]) ID Date Data Source [id number] 12/10/2019 11:21:00 AM EDT [facility] ([facility]) Name Value Range Interpretation Code Description Data Mel rce(s) Supporting Document(s) Prothrombin Time 12.0 s 11.8-14.0 [facility] ([facility]) Inr 0.91 [facility] ([place] [facility]) THERAPUTIC HUMAN INR VALUES INDICATIONS NORMAL RANGES PROPHYLAXIS/TREATMENT OF: VENOUS THROMBOSIS 2.0-3.0 PULMONARY EMBOLISM 2.0-3.0 PREVENTION OF SYSTEMIC EMBOLISM FROM: TISSUE HEART VALVES 2.0-3.0 ACUTE MYOCARDIAL INFARCTION 2.0-3.0 VALVULAR HEART DISEASE 2.0-3.0 ATRIAL FIBRILLATION 2.0-3.0 MECHANICAL VALVES(HIGH RISK) 2.5-3.5 RECURRENT MYOCARDIAL INFARCTION 2.5-3.5 ID Date Data Source [id number] 12/10/2019 11:21:00 AM EDT [facility] ([facility]) Name Value Range Interpretation Code Description Data Mel rce(s) Supporting Document(s) Red Blood Count 4.56 10 4.00-5.40 [facility] ([facility]) White Blood Count 17.1 10 4.0-10.0 MEDENT ([facility]) Hematocrit 39.8 % 36.0-47.0 MED[facility] ([facility]) Hemoglobin 11.8 g/dL 12.0-15.5 MED[facility] ([facility]) Mean Corpuscular Volume 87.3 fl 80.0-96.0 MED[facility] ([facility]) Red Cell Distribution Width 15.7 % 11.5-14.5 ME DENT ([facility]) Mean Corpuscular Hemoglobin 25.9 pg 27.0-33.0 [place] DENT ([facility]) Mean Corpuscular HGB Conc 29.6 g/dL 32.0-36.5 MEDE NT ([facility]) Neutrophils % 79.2 % 36.0-66.0 MEDENT ([facility]) Platelet Count, Automated 376 10 150-450 MEDE NT ([facility]) Lymph % 11.5 % 24.0-44.0 [facility] ([place] [facility]) Eos % 1.1 % 0.0-3.0 [facility] [facility]) Baso % 0.2 % 0.0-1.0 [facility] [facility] Immature Granulocyte % 1.6 % 0-3.0 MED[facility] ([facility]) [place] % 6.4 % 0.0-5.0 MED[facility] ([place] [facility]) Lymph # 2.0 10 1.5-5.0 MED[facility] ([place] [facility]) Nucleated Red Blood Cell % 0.0 % 0-0 MED ENT ([facility]) Neutrophils # 13.5 10 1.5-8.5 MEDENT ([facility]) Eos # 0.2 10 0.0-0.5 MED[facility] ([place] [facility]) [place] # 1.1 10 0.0-0.8 MED[facility] ([place] [facility]) Baso # 0.0 10 0.0-0.2 [facility] ([place] [facility]) ID Date Data Source [id number] 12/10/2019 11:21:00 AM EDT MEDENT ([facility]) Name Value Range Interpretation Code Description Data Mel rce(s) Supporting Document(s) Natriuretic peptide.B prohormone N-Terminal [Mass/volu me] in Serum or Plasma 234 pg/mL MEDENT ([facility] ) ID Date Data Source [id number] 12/10/2019 11:21:00 AM EDT MEDENT ([facility]) Name Value Range Interpretation Code Description Data Mel rce(s) Supporting Document(s) Glucose, Fasting 144 mg/dL 70-100 MED[facility] ([facility]) Blood Urea Nitrogen 18 mg/dL 7-18 MEDENT ([facility]) Glomerular Filtration Rate [facility]) <content>Units are mL/min/1.73 m2</content>
<content></content>
<content>Chronic Kidney Disease Staging per NKF:</content>
<content></content>
<content>Stage I & II GFR >=60 Normal to Mildly Decreased</content>
<content>Stage III GFR 30- 59 Moderately Decreased</content>
<content>Stage IV GFR 15-29 Severely Decreased</content>
<content>Stage V GFR <15 Very Little GFR Left</content>
<content>ESRD GFR <15 on GREEN PLUMBER</content>
<content></content> Creatinine For GFR 0.73 mg/dL 0.55-1.30 MEDENT ([facility]) Chloride Level 101 meq/L 98-107 MEDENT ([facility]) Sodium Level 143 meq/L 136-145 MEDENT ([facility]) Potassium Serum 4.1 meq/L 3.5-5.1 MEDENT ([facility]) Anion Gap 3 meq/L 8-16 MED[facility] ([place] [facility]) Calcium Level 8.9 mg/dL 8.8-10.2 MEDENT ([facility]) Carbon Dioxide Level 39 meq/L 21-32 MEDENT ([facility]) ID Date Data Source [id number] 12/10/2019 11:21:00 AM EDT MEDENT ([facility]) Name Value Range Interpretation Code Description Data Mel rce(s) Supporting Document(s) Alt/SGPT 31 U/L 12-78 [facility] ([place] [facility]) Ast/Sgot 15 U/L 7-37 MED[facility] ([place] [facility]) Bilirubin,Direct 0.1 mg/dL 0.0-0.2 MEDENT ([facility]) Alkaline Phosphatase 110 U/L 45-117 MEDENT ([facility]) Bilirubin,Total 0.4 mg/dL 0.2-1.0 MEDENT ([facility]) Total Protein 6.7 GM/DL 6.4-8.2 MEDENT ([facility]) Albumin 3.3 GM/DL 3.2-5.2 MED[facility] ([place] [facility]) Albumin/Globulin Ratio 1.0 1.2-2.2 MED[facility] ([facility]) ID Date Data Source [id number] 12/10/2019 11:21:00 AM EDT MEDENT ([facility]) Name Value Range Interpretation Code Description Data Mel rce(s) Supporting Document(s) CPK Creatine Phosphokinase 59 U/L 26-192 MED ENT ([facility]) MB/CK Relative Index 3.05 MEDENT ([facility]) <content>DIAGNOSIS CRITERIA</content>
<content>MMB ng/ml Relative Index (RI)</content>
<content>NON-AMI < or = 5 N/A</content>
<content>MILTON ZONE > 5 < or = 4</content>
<content>AMI > 5 > 4</content>
<content></content> CK-MB Value Mass 1.8 ng/mL [facility] ([facility]) Troponin I Laboratory test result [facility] ([facility]) <content>Troponin I Reference Interval f or Siemens [place] LOCI:</content>
<content></content>
<content>99th Percentile= 0.00-0.045 ng/ml</content>
<content></content>
<content>Risk Stratification:</content>
<content><= 0.10 ng/ml Decreased Risk for Adverse Clinical</content>
<content>Events.</content>
<content>0.10-1.50 ng/ml Increased Risk for Adverse Clinical</content>
<content>Events. Evaluation of additional</content>
<content>criterion and/or repeat testing in 2-6</content>
<content>hours is suggested to rule out myocardial</content>
<content>damage.</content>
<content>>= 1.50 ng/ml Indicative of Myocardial Injury.</content>
<content></content> ID Date Data Source [id number] 12/10/2019 11:21:[address] [facility] Name Value Range Interpretation Code Description Data Mel rce(s) Supporting Document(s) Lactate [Mass/volume] in Serum or Plasma 1.2 mmol/L 0.4-2.0 [facility] ([facility]) Y/N query for Sepsis Lactate Rule: Y ID Date Data Source [id number] 12/10/2019 11:21:[address] [facility] Name Value Range Interpretation Code Description Data Mel rce(s) Supporting Document(s) Venous Partial Pressure Co2 76.2 mmHg 38.0-50.0 MEDENT ([facility]) Venous Partial Pressure O2 59.9 mmHg 30.0-50.0 [facility] ([facility]) Venous PH 7.319 units 7.330-7.430 MED[facility] ([facility]) Venous Base Excess 9.5 [facility] ([facility] Venous Hco3 38.3 meq/L 23.0-27.0 [facility] ([facility]) Venous Total Co2 40.6 meq/L 24.0-28.0 [facility] ([facility] Venous O2 Saturation 89.0 % 60.0-80.0 [facility] Venous Standard Hco3 33.0 meq/L [facility] ( [facility]) ID Date Data Source [id number] 12/02/2019 12:00:00 AM EDT [facility] Smith Marie Jr, MD Patient Name: MIGUEL [id number] [facility] [place] : [id number] [id number] Date of Exam: 12/02/2019PH#: Fax: [phone] EXAM: CHEST (2 VIEW) X-RAYCLINICAL [...] rce(s) Supporting Document(s) ID Date Data Source [id number] 11/30/2019 03:35:00 PM EDT MEDENT ([facility]) Name Value Range Interpretation Code Description Data Mel rce(s) Supporting Document(s) Glucose [Mass/volume] in Serum or Plasma 172 mg/dL 74-99 [facility] ([facility]) 100-125 mg/dL PRE-DIABETES/FASTING >126 mg/dL DIABETES/FASTING Urea nitrogen [Mass/volume] in Serum or Plasma 17 mg/dL 7-18 [facility] ([facility]) Creatinine 0.9 mg/dL 0.6-1.3 [facility] ([place] [facility]) Sodium [Moles/volume] in Serum or Plasma 143 meq/L 136-145 [facility] ([facility]) Carbon dioxide, total [Moles/volume] in Serum or Plasma 36 meq/L 21 -32 [facility] ([facility]) Chloride [Moles/volume] in Serum or Plasma 99 meq/L 98-107 [facility] ([facility]) Potassium [Moles/volume] in Serum or Plasma 3.6 meq/L 3.5-5.1 [facility] ([facility]) Calcium [Mass/volume] in Serum or Plasma 8.5 mg/dL 8.5-10.1 [facility] ([facility]) Glomerular filtration rate/1.73 sq M pre dicted among non-blacks [Volume Rate/Area] in Serum or Plasma by Creatinine-based formula (MDRD) Laboratory test result [facility] ([facility] ) Glomerular filtration rate/1.73 sq M pre dicted among blacks [Volume Rate/Area] in Serum or Plasma by Creatinine-based formula (MDRD) Laboratory [facility] [facility] <content>CHRONIC KIDNEY DISEASE STAGING PER NKF</content>
<content></content>
<content>STAGE I & II GFR >= 60 NORMAL TO MILDLY DECREASED</content>
<content>STAGE III GFR 30-59 MODERATELY DECREASED</content>
<content>STAGE IV GFR 15-29 SEVERELY DECREASED</content>
<content>STAGE V GFR <15 VERY LITTLE GFR LEFT</content>
<content>ESRD GFR <15 ON GREEN PLUMBER</content>
<content></content> ID Date Data Source [id number] 11/30/2019 03:35:00 PM EDT [facility]) Name Value Range Interpretation Code Description Data Mel rce(s) Supporting Document(s) Natriuretic peptide B [Mass/volume] in Serum or Plasma 33.8 pg/mL 0.0 -100.0 [facility] ([facility]) ID Date Data Source [id number] 11/30/2019 03:35:00 PM EDT [facility] ([facility]) Name Value Range Interpretation Code Description Data Mel rce(s) Supporting Document(s) Leukocytes [#/volume] in Blood by Automated count 17.2 x10*3/UL 4.1-1 0.9 [facility] [facility]) Erythrocytes [#/volume] in Blood by Automated count 4.58 x10*6/UL 4.2 0-6.30 [facility] [facility]) MCV 81.1 fL 80.0-97.0 [facility] [facility]) Hemoglobin [Mass/volume] in Blood 11.9 g/dL 12.0-18.0 [facility] [facility]) Hematocrit [Volume Fraction] of Blood by Automated count 37.2 % 3 7.0-51.0 [facility] [facility]) Erythrocyte distribution width [Ratio] by Automated count 14.2 % 11.6-13.7 [facility] ([facility]) MCH 25.9 pg 26.0-32.0 [facility] ([place] [facility]) MCHC 31.9 g/dL 31.0-38.0 [facility] ([place] [facility]) Lymph % 11.0 % 10.0-58.5 MEDENT ([facility]) Platelets [#/volume] in Blood by Automated count 465 x10*3/UL 140-440 MED[facility] ([facility]) MPV 6.8 FL 7.8-11.0 MED[facility] ([place] [facility]) Mid % 3.4 % 1.7-9.3 MEDENT ([facility]) Neut % 85.6 % 37.0-92.0 [facility] ([place] [facility]) Mid # 0.6 x10*3/UL 0.1-0.6 [facility] ([facility]) Lymph # 1.9 x10*3/UL 0.6-4.1 [facility] ([facility]) Neut # 14.7 x10*3/UL 2.0-7.8 MED[facility] ([facility]) ID Date Data Source [id number] 11/10/2019 12:00:00 AM EDT [facility] Name Value Range Interpretation Code Description Data Mel rce(s) Supporting Document(s) 2019-nCoV N XXX Ql MOE N2 [facility] [place] This lab [facility] and reported by KIER[facility]. ID Date Data Source [id number] 08/04/2019 08:39:00 AM EDT MEDENT ([facility]) Name Value Range Interpretation Code Description Data Mel rce(s) Supporting Document(s) Thyrotropin [Units/volume] in Serum or Plasma by Detec tion limit <= 0.05 mIU/L 1.61 uIU/mL 0.36-3.74 [facility] ([facility] ) ID Date Data Source [id number] 08/04/2019 08:39:00 AM EDT MEDENT ([facility]) Name Value Range Interpretation Code Description Data Mel rce(s) Supporting Document(s) Sodium [Moles/volume] in Serum or Plasma 141 meq/L 136-145 [facility] ([facility]) Creatinine 0.6 mg/dL 0.6-1.3 [facility] ([facility]) Glucose [Mass/volume] in Serum or Plasma 147 mg/dL 74-99 [facility] ([facility]) 100-125 mg/dL PRE-DIABETES/FASTING >126 mg/dL DIABETES/FASTING Urea nitrogen [Mass/volume] in Serum or Plasma 15 mg/dL 7-18 [facility] ([facility]) Carbon dioxide, total [Moles/volume] in Serum or Plasma 39 meq/L 21 -32 [facility] ([facility]) Potassium [Moles/volume] in Serum or Plasma 4.1 meq/L 3.5-5.1 [facility] ([facility]) Chloride [Moles/volume] in Serum or Plasma 101 meq/L 98-107 [facility] ([facility]) Calcium [Mass/volume] in Serum or Plasma 8.9 mg/dL 8.5-10.1 [facility] ([facility]) Glomerular filtration rate/1.73 sq M pre dicted among non-blacks [Volume Rate/Area] in Serum or Plasma by Creatinine-based formula (MDRD) Laboratory test result [facility] ([place] [facility] Glomerular filtration rate/1.73 sq M pre dicted among blacks [Volume Rate/Area] in Serum or Plasma by Creatinine-based formula (MDRD) Laboratory test result [facility] ([place] [facility] <content>CHRONIC KIDNEY DISEASE STAGING PER NKF</content>
<content></content>
<content>STAGE I & II GFR >= 60 NORMAL TO MILDLY DECREASED</content>
<content>STAGE III GFR 30-59 MODERATELY DECREASED</content>
<content>STAGE IV GFR 15-29 SEVERELY DECREASED</content>
<content>STAGE V GFR <15 VERY LITTLE GFR LEFT</content>
<content>ESRD GFR <15 ON GREEN PLUMBER</content>
<content></content> ID Date Data Source [id number] 08/04/2019 08:39:00 AM EDT [facility] Name Value Range Interpretation Code Description Data Mel rce(s) Supporting Document(s) Hemoglobin A1c/Hemoglobin.total in Blood 7.7 g/dL 4.8-5.6 [facility] [facility] Lab Result Notes: Pre-Diabetes 5.7 - 6.4 % Diabetes = or > 6.5% Glucose mean value [Mass/volume] in Blood Estimated fr om glycated hemoglobin 174 mg/dL 60-110 [facility] [facility] ID Date Data Source [id number] 08/04/2019 08:39:00 AM EDT [facility] Name Value Range Interpretation Code Description Data Mel rce(s) Supporting Document(s) Leukocytes [#/volume] in Blood by Automated count 11.1 x10*3/UL 4.1-1 0.9 [facility] ([place] [facility] NOTE: RESULT VERIFIED. Hematocrit [Volume Fraction] of Blood by Automated count 32.6 % 3 7.0-51.0 [facility] ([facility]) Hemoglobin [Mass/volume] in Blood 10.2 g/dL 12.0-18.0 [facility] ([facility]) Erythrocytes [#/volume] in Blood by Automated count 4.03 x10*6/UL 4.2 0-6.30 [facility] ([facility]) Erythrocyte distribution width [Ratio] by Automated count 15.4 % 11.6-13.7 [facility] ([facility] [facility]) MCV 80.7 fL 80.0-97.0 [facility] ([place] [facility]) MCH 25.3 pg 26.0-32.0 [facility] [facility] MCHC 31.4 g/dL 31.0-38.0 [facility] ([place] [facility] Platelets [#/volume] in Blood by Automated count 434 x10*3/UL 140-440 [facility] ([facility]) Lymph % 21.3 % 10.0-58.5 [facility] ([place] [facility]) MPV 6.9 FL 7.8-11.0 [facility] [facility] Lymph # 2.3 x10*3/UL 0.6-4.1 [facility] ([facility]) Mid % 6.5 % 1.7-9.3 [facility] ([place] [facility]) Neut % 72.2 % 37.0-92.0 [facility] [facility] Mid # 0.8 x10*3/UL 0.1-0.6 [facility] ([facility]) Neut # 8.0 x10*3/UL 2.0-7.8 [facility] ([facility]) Procedure Social History Code Duration Value Status Description Data Source(s ) Smoking 04/12/2020 12:00:00 AM EST Patient is a former smoker completed Patient is a former smoker [facility] ([facility]) Smoking 11/17/2019 12:00:00 AM EDT Patient is a former smoker completed Patient is a former smoker [facility] ([facility], ) Vital Signs ID Date Data Source UNK Name Value Range Interpretation Code Description Data Source(s) Body mass index (BMI) [Ratio] 37.9 kg/m2 37.9 k g/m2 MED[facility] ([facility]) Body height 65 [in_i] 65 [in_i] [facility] ([facility] 5'5" Body weight 228.00 [lb_av] 228.00 [lb_av] MEDEN T ([facility]) Body mass index (BMI) [Ratio] 39.4 kg/m2 39.4 k g/m2 [facility] ([facility]) Oxygen saturation in Arterial blood by Pulse oximetry 90 % 90 % [facility] [facility] RM Air Body weight 237.00 [lb_av] 237.00 [lb_av] MEDEN T ([facility]) Body height 65 [in_i] 65 [in_i] MED[facility] ([facility]) 5'5" Heart rate 88 /min 88 /min MED[facility] ([facility]) Diastolic blood pressure 76 mm[Hg] 76 mm[Hg] [facility] ([facility]) Systolic blood pressure 120 mm[Hg] 120 mm[Hg] [facility] ([place] [facility]) Diastolic blood pressure--sitting 64 mm[Hg] 64 mm[Hg] MED[facility] ([facility]) large cuff, Ra Systolic blood pressure--sitting 130 mm[Hg] 130 mm[Hg] [facility] ([facility]) large cuff, Ra Body mass index (BMI) [Ratio] 39.1 kg/m2 39.1 k g/m2 MED[facility] ([facility]) Body height 65 [in_i] 65 [in_i] [facility] ([facility]) 5'5" Body weight 235.00 [lb_av] 235.00 [lb_av] MEDEN T ([facility]) Body mass index (BMI) [Ratio] 39.1 kg/m2 39.1 k g/m2 [facility] [facility] Oxygen saturation in Arterial blood by Pulse oximetry 89 % 89 % [facility] [facility]) With O2 @ 3L Body weight 235.00 [lb_av] 235.00 [lb_av] MEDEN T ([facility]) Body height 65 [in_i] 65 [in_i] MED[facility] ([facility]) 5'5" Heart rate 92 /min 92 /min [facility]) Diastolic blood pressure 90 mm[Hg] 90 mm[Hg] [facility] [facility]) Systolic blood pressure 150 mm[Hg] 150 mm[Hg] [facility] ([place] [facility]) Diastolic blood pressure--sitting 70 mm[Hg] 70 mm[Hg] MED[facility] ([facility]) large cuff, Ra Systolic blood pressure--sitting 134 mm[Hg] 134 mm[Hg] [facility] ([facility]) large cuff, Ra Heart rate 81 /min 81 /min [facility] ([facility]) Body mass index (BMI) [Ratio] 38.8 kg/m2 38.8 k g/m2 [facility] ([facility]) Body height 65 [in_i] 65 [in_i] [facility] ([facility]) 5'5" Body weight 233.00 [lb_av] 233.00 [lb_av] MEDEN T ([facility]) Oxygen saturation in Arterial blood by Pulse oximetry 96 % 96 % [facility] [facility]) Body weight 233.00 [lb_av] 233.00 [lb_av] MEDEN T ([facility]) Heart rate 85 /min 85 /min [facility] ([facility]) Diastolic blood pressure 60 mm[Hg] 60 mm[Hg] [facility] ([facility] [facility]) Systolic blood pressure 116 mm[Hg] 116 mm[Hg] [facility] ([place] [facility]) Oxygen saturation in Arterial blood by Pulse oximetry 92 % 92 % [facility] ([facility] [facility]) With O2 Body weight 235.00 [lb_av] 235.00 [lb_av] MED[facility] T ([facility]) Heart rate 87 /min 87 /min [facility] ([facility]) Diastolic blood pressure 68 mm[Hg] 68 mm[Hg] [facility] ([facility] [facility]) Systolic blood pressure 122 mm[Hg] 122 mm[Hg] [facility] ([facility] [facility]) Diastolic blood pressure--sitting 70 mm[Hg] 70 mm[Hg] [facility] ([facility]) Systolic blood pressure--sitting 122 mm[Hg] 122 mm[Hg] [facility] ([facility]) Body mass index (BMI) [Ratio] 39.8 kg/m2 39.8 k g/m2 [facility] ([facility]) Body height 65 [in_i] 65 [in_i] [facility] ([facility]) 5'5" Body weight 239.00 [lb_av] 239.00 [lb_av] MEDEN T ([facility]) Oxygen saturation in Arterial blood by Pulse oximetry 94 % 94 % [facility] ([facility]) With O2 Body weight 232.00 [lb_av] 232.00 [lb_av] MED[facility] T ([facility]) Heart rate 80 /min 80 /min [facility] ([facility]) Diastolic blood pressure 60 mm[Hg] 60 mm[Hg] [facility] ([facility]) Systolic blood pressure 110 mm[Hg] 110 mm[Hg] [facility] ([place] [facility]) Oxygen saturation in Arterial blood by Pulse oximetry 90 % 90 % [facility] ([facility]) 4L on demand Body weight 224.00 [lb_av] 224.00 [lb_av] [facility] Heart rate 89 /min 89 /min [facility] ([facility]) Diastolic blood pressure 54 mm[Hg] 54 mm[Hg] [facility] ([facility]) Systolic blood pressure 110 mm[Hg] 110 mm[Hg] [facility] ([facility]) Body weight 90.720 kg 90.720 kg [facility] ([facility]) Body mass index (BMI) [Ratio] 33.3 kg/m2 33.3 k g/m2 [facility] ([facility]) Body weight 200.00 [lb_av] 200.00 [facility]_av] [facility] Body height 65 [in_i] 65 [in_i] [facility] ([facility]) 5'5" Oxygen saturation in Arterial blood by Pulse oximetry 922 % 922 % [facility] ([facility]) Heart rate 80 /min 80 /min [facility] ([facility]) Diastolic blood pressure 80 mm[Hg] 80 mm[Hg] [facility] ([facility]) Systolic blood pressure 124 mm[Hg] 124 mm[Hg] [facility] ([facility]) Oxygen saturation in Arterial blood by Pulse oximetry 95 % 95 % [facility] ([facility]) Body weight 215.00 [lb_av] 215.00 [lb_av] [facility] Respiratory rate 20 /min 20 /min [facility] ( [facility]) 2L O2 via NC, unlabored and easy respira tions Heart rate 74 /min 74 /min [facility] ([facility]) Diastolic blood pressure 70 mm[Hg] 70 mm[Hg] [facility] ([facility]) Systolic blood pressure 117 mm[Hg] 117 mm[Hg] [facility] ([facility]) Oxygen saturation in Arterial blood by Pulse oximetry 92 % 92 % [facility] ([facility]) Respiratory rate 22 /min 22 /min [facility] ( [facility]) with O2, 2L via nasal cannula Body temperature 98.8 [degF] 98.8 [degF] [facility] ([facility]) Heart rate 78 /min 78 /min [facility] ([facility]) Diastolic blood pressure 60 mm[Hg] 60 mm[Hg] [facility] ([facility]) Systolic blood pressure 110 mm[Hg] 110 mm[Hg] [facility] ([facility]) Oxygen saturation in Arterial blood by Pulse oximetry 90 % 90 % [facility] ([facility]) With O2 Body weight 208.00 [lb_av] 208.00 [lb_av] [facility] Diastolic blood pressure 82 mm[Hg] 82 mm[Hg] [facility] ([facility]) Systolic blood pressure 124 mm[Hg] 124 mm[Hg] [facility] ([facility]) Body weight 92.081 kg 92.081 kg [facility] ([facility]) Body mass index (BMI) [Ratio] 33.8 kg/m2 33.8 k g/m2 [facility] ([facility]) Body weight 203.00 [lb_av] 203.00 [lb_av] [facility] ([facility]) Body height 65 [in_i] 65 [in_i] [facility] ([facility]) 5'5" Oxygen saturation in Arterial blood by Pulse oximetry 903 % 903 % [facility] ([facility]) Heart rate 80 /min 80 /min [facility] ([facility]) Diastolic blood pressure 80 mm[Hg] 80 mm[Hg] [facility] ([facility]) Systolic blood pressure 130 mm[Hg] 130 mm[Hg] [facility] ([facility])
[2020-07-20] MEDS ORDERED: POTASSIUM CHLORIDE 10 MEQ SR TABLET PO ONE (08:55)
[2020-07-20] MEDS ORDERED: ADVAIR HFA 230/21MCG INHALER INH SCH (09:00)
[2020-07-20 09:37] VITALS: BP 131/72
--- NOTE | 2020-07-20 17:03 | ECGEPIP ---
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
== END 2020-07-20 10:05 | disposition home or self-care (01) ==
LOC: M ED 07:11 → EDBD 07:11 → M ED 10:05
DX: J44.1 Chronic obstructive pulmonary disease with (acute) exacerbation (principal); E11.9 Type 2 diabetes mellitus without complications; I10 Essential (primary) hypertension; I25.2 Old myocardial infarction; Z99.81 Dependence on supplemental oxygen; Z88.8 Allergy status to other drugs, medicaments and biological substances; J30.89 Other allergic rhinitis; Z79.899 Other long term (current) drug therapy; Z79.4 Long term (current) use of insulin; Z79.82 Long term (current) use of aspirin; Z87.891 Personal history of nicotine dependence

== ENCOUNTER → 2020-07-27 | Outpatient (REF) | payer MEDICARE, MEDICAID ==
[~2020-07-27] MED LIST changes: +ASPI-569 PO; -ASPI81TAEC PO; +GLIP5TAB8 PO; +HUMA100I5 SC; +LANTINJ4 SC; +MONI1CRE2 PV; +POTA10TA16 PO
[2020-07-28 12:11] LABS: ANTINUCLEAR ANTIBODIES DIRECT Negative (Negative)
== END ==
LOC: M LAB REF 12:20
PROVIDERS: ATTEND Physician Assistant Medical
DX: M79.10 Myalgia, unspecified site (principal)

== ENCOUNTER 2020-09-02 07:25 | Inpatient (IN) | payer MEDICARE, MEDICAID ==
[~2020-09-02] VITALS: Ht 162.6 cm; Wt 108.5 kg
[~2020-09-02 07:25] MED LIST changes: -ACET-838 PO; +ACET32TAB PO
[2020-09-02 07:43] LABS: BASO # 0.1 10^3/uL (0.0-0.2); BASO % 0.8 % (0.0-1.0); EOS # 0.3 10^3/uL (0.0-0.5); EOS % 1.8 % (0.0-3.0); HEMATOCRIT 39.3 % (36.0-47.0); HEMOGLOBIN 11.1 g/dl (12.0-15.5); LYMPH # 3.3 10^3/uL (1.5-5.0); LYMPH % 24.3 % (24.0-44.0); MEAN CORPUSCULAR HEMOGLOBIN 24.8 pg (27.0-33.0); MEAN CORPUSCULAR HGB CONC 28.2 g/dl (32.0-36.5); MEAN CORPUSCULAR VOLUME 87.9 fl (80.0-96.0); MONO # 1.2 10^3/uL (0.0-0.8); MONO % 8.7 % (2.0-8.0); NEUTROPHILS # 8.5 10^3/uL (1.5-8.5); NEUTROPHILS % 62.9 % (36.0-66.0); PLATELET COUNT, AUTOMATED 446 10^3/uL (150-450); RED BLOOD COUNT 4.47 10^6/uL (4.00-5.40); WHITE BLOOD COUNT 13.6 10^3/uL (4.0-10.0)
[2020-09-02] MEDS: IPRATROPIUM 0.5MG/ALBUTEROL 2.5MG INH SOL UD 3ML (DUONEB) NEB SCH ×5 (08:10→20:49)
[2020-09-02 08:25] LABS: ALBUMIN 3.1 GM/DL (3.2-5.2); ALT/SGPT 52 U/L (12-78); BILIRUBIN,DIRECT < 0.1 MG/DL (0.0-0.2); BILIRUBIN,TOTAL 0.2 MG/DL (0.2-1.0); NT-PRO BNP 248 PG/ML (<125); TOTAL PROTEIN 7.1 GM/DL (6.4-8.2)
--- NOTE | 2020-09-02 08:43 | REP ---
INDICATION: DYSPNEA/COUGH. COMPARISON: 11/11/2020. TECHNIQUE: SINGLE PORTABLE AP VIEW OF THE CHEST WAS PERFORMED. FINDINGS: There is mild bibasilar fibro atelectatic change. The heart and mediastinum are unchanged. The heart does not appear to be significantly enlarged. There are bilateral cardiophrenic fat pads. IMPRESSION: NO ACUTE PULMONARY DISEASE.Stable chronic changes. <Electronically signed by Brigido Barcenas > 09/02/20 [id number]
[2020-09-02] MEDS: POTASSIUM CHLORIDE 10 MEQ SR TABLET PO SCH ×4 (09:00→21:02)
[2020-09-02] MEDS ORDERED: LEVEMIR (INSULIN DETEMIR) 1 UNITS/0.01ML SC ONE (09:00)
[2020-09-02] MEDS: ADVAIR HFA 230/21MCG INHALER INH SCH ×2 (09:00→20:49)
[2020-09-02] MEDS ORDERED: NORCO, ANEXSIA 5/325MG TABLET (HYDROcodone/ACETAMINOPHEN) PO PRN (09:30)
[2020-09-02] MEDS ORDERED: NYSTATIN 100,000 UNITS/GM TOPICAL PWD 15 GM TOP PRN (09:30)
[2020-09-02] MEDS ORDERED: CALCIUM CARBONATE 500 MG CHEW U/D PO PRN (09:30)
[2020-09-02] MEDS ORDERED: MOM 30ML SUSPENSION UDC PO PRN (09:30)
[2020-09-02] MEDS ORDERED: ACETAMINOPHEN TAB 650MG DOSE (2X325MG) PO PRN (09:30)
[2020-09-02] MEDS ORDERED: ALPRAZolam 0.5 MG TAB PO PRN (09:30)
[2020-09-02] MEDS ORDERED: HUMA100I5 SC (09:33)
[2020-09-02] MEDS ORDERED: LEVA1.2525 NEB ×2 (09:33)
[2020-09-02] MEDS ORDERED: HYDR-3363 PO (09:33)
[2020-09-02] MEDS ORDERED: POTA20TA6 PO (09:33)
[2020-09-02] MEDS ORDERED: GLUCAGON INJ 1MG VIAL SC PRN (09:50)
[2020-09-02] MEDS ORDERED: GLUCOSE 4GM CHEW TABLET PO PRN (09:50)
[2020-09-02] MEDS ORDERED: DEXTROSE 50% 50 ML SYRINGE IV PRN (09:50)
--- NOTE | 2020-09-02 09:50 | HPEPDOC ---
General Date of Admission 09/02/20 Date of Service: Sep 02, 2020 Chief Complaint The patient is a 64-year-old female admitted with a reason for visit of SOB. Source: Patient Exam Limitations: No limitations Severity: Moderate History of Present Illness Patient is 64 years old male with past history of SUYAPA on BiPAP, chronic hypoxic respiratory failure on 3 L of oxygen at home, COPD prednisone dependent, CAD, [place] in 2010 without stent, dyslipidemia, diastolic heart failure, insulin-dependent diabetes, bipolar disorder, hypothyroidism, depression, chronic back pain and reflux presented to the hospital with increased shortness of breath. Patient stated that for past few days she has been having increased shortness of breath requires more oxygen from her baseline 3 L. Patient denied fever, chills, cough or sputum production. She denies legs swelling increase. Denies any nausea, vomiting, abdominal pain, constipation, diarrhea, or urinary discomfort. In ER patient was found to have ABG pH 7.4, CO2 62.1, labs pertinent for leukocytosis of 13.6, BNP 258. Chest x-ray stable chronic changes. In ER patient was placed on the BiPAP with home settings 04/29 Home Medications Scheduled Alprazolam (Alprazolam) 0.5 Mg Tablet, 0.5 MG PO BID, (Reported) Aspirin (Aspirin EC) 81 Mg Tablet.dr, 81 MG PO DAILY, (Reported) Atorvastatin Calcium (Lipitor) 80 Mg Tab, 80 MG PO DAILY, (Reported) Bisoprolol Fumarate (Bisoprolol Fumarate) 5 Mg Tab, 2.5 MG PO DAILY, (Reported) Cholecalciferol (Vitamin D3) (Vitamin D3) 1,000 Unit Tablet, 5,000 UNITS PO DAILY, (Reported) TAKES AT LUNCH Fluoxetine Hcl (Fluoxetine HCl) 20 Mg Capsule, 20 MG PO DAILY, (Reported) WITH 10MG FOR A TOTAL OF 30MG Fluoxetine Hcl (Fluoxetine HCl) 10 Mg Capsule, 10 MG PO DAILY, (Reported) WITH 20MG FOR A TOTAL OF 30MG Gabapentin (Gabapentin) 600 Mg Tablet, 600 MG PO TID, (Reported) Hydroxyzine HCl (Hydroxyzine HCl) 25 Mg Tablet, 25 MG PO DAILY, (Reported) @ 1200 Insulin Glargine,Hum.rec.anlog (Lantus Solostar) 100 Unit/1 Ml Insuln.pen, 28 UNITS SC QHS, (Reported) Insulin Lispro (Humalog Kwikpen U-100) 100 Unit/1 Ml Insuln.pen, 20 UNITS SC QPM, (Reported) @ 1630 Insulin Lispro (Humalog Kwikpen U-100) 100 Unit/1 Ml Insuln.pen, 18 UNITS SC DAILY, (Reported) @ 11:30 Ipratropium/Albuterol Sulfate (Iprat-Albut 0.5-3(2.5) mg/3 ml) 3 Ml Ampul.neb, 1 VIAL INH QID, (Reported) Levalbuterol HCl (Levalbuterol HCl) 1.25 Mg/3 Ml Vial.neb, 1 VIAL NEB Q4H, (Reported) Levothyroxine Sodium (Levoxyl) 25 Mcg Tab, 25 MCG PO QAM, (Reported) Linagliptin (Tradjenta) 5 Mg Tablet, 5 MG PO DAILY, (Reported) Magnesium Oxide (Magnesium Oxide) 400 Mg Tablet, 400 MG PO BID, (Reported) Menthol/Zinc Oxide (Gold [place] Medicated Body Powdr) 113 Gm Powder, 1 APPLIC TOP BID, (Reported) APPLY TO SKIN FOLDS Metformin HCl (Metformin HCl) 500 Mg Tablet, 500 MG PO BID, (Reported) Multivitamins (Thera M Plus Tablet) 1 Each Tablet, 1 TAB PO DAILY, (Reported) Omeprazole (Omeprazole) 20 Mg Capsule.dr, 20 MG PO BID, (Reported) Potassium Chloride (Potassium Chloride) 20 Meq Tab.er.prt, 20 MEQ PO QID, (Reported) @ 0900, 1300, 1700, 2000 Prednisone (Prednisone) 10 Mg Tablet, 10 MG PO DAILY, (Reported) Salmeterol/Fluticasone (Advair 250-50 Diskus) 1 Each Blst.w.dev, 1 PUFF INH BID, (Reported) Simethicone (Simethicone) 80 Mg Tab.chew, 80 MG PO WM, (Reported) Torsemide (Torsemide) 100 Mg Tablet, 150 MG PO DAILY, (Reported) Umeclidinium [place] (Incruse Ellipta) 62.5 Mcg Blst.w.dev, 1 PUFF INH DAILY, (Reported) Scheduled PRN Acetaminophen (Acetaminophen 8 Hour) 650 Mg Tablet.er, 650 MG PO BID PRN for PAIN, (Reported) Albuterol Sulfate (Ventolin Hfa) 108 Mcg/Act Aer, 2 PUFFS INH Q4H PRN for SHORTNESS OF BREATH, (Reported) Alprazolam (Alprazolam) 0.5 Mg Tablet, 0.5 MG PO DAILY PRN for ANXIETY, (Reported) Calcium Carbonate (Tums) 200 Mg Tab.chew, 500 MG PO QID PRN for HEARTBURN, (Reported) Diclofenac Sodium (Voltaren) 100 Gm Gel..gram., 4 GRAM TOP TID PRN for PAIN, (Reported) APPLY TO AREAS OF PAIN. MAY SELF-ADMINISTER Hydrocodone/Acetaminophen (Hydrocodone-Acetamin 5-325 mg) 1 Each Tablet, 1 TAB PO BID PRN for PAIN, (Reported) Ipratropium/Albuterol Sulfate (Iprat-Albut 0.5-3(2.5) mg/3 ml) 3 Ml Ampul.neb, 1 VIAL INH Q6H PRN for SHORTNESS OF BREATH, (Reported) Levalbuterol HCl (Levalbuterol HCl) 1.25 Mg/3 Ml Vial.neb, 1 VIAL NEB Q1H PRN for SOB/WHEEZING, (Reported) Lidocaine HCl (Aspercreme) 4% Cream..g., 1 APLCT TOP QID PRN for PAIN, (Re ported) APPLY TO PAINFUL AREAS Miconazole Nitrate (Monistat 3) 15 Gm Crm.pf.juan r, 1 APLCTR PV QHS PRN for YEAST INFECTION, (Reported) Milk Of Magnesia (Milk of Magnesia) 2,400 Mg/10 Ml Oral.susp, 10 ML PO DAILY PRN for CONSTIPATION, (Reported) Nystatin (Nystatin Powder) 15 Gm Powder, 1 DOSE TOP BID PRN for ITCH/RASH, (Reported) USES UNDER BREASTS Allergies Coded Allergies: dapagliflozin (Verified Allergy, Mild, Sores, 05/27/20) Cat Dander (Verified Allergy, Unknown, 05/27/20) Dust (Verified Allergy, Unknown, 05/27/20) Past Medical History Medical History COPD Chronic hypoxic respiratory failure SUYAPA on BIPAP CAD (2010; No stent) DLP Diastolic CHF IDDM2 Hypothyroidism Bipolar Depression Chronic back pain GERD Surgical History Tonsillectomy Breast surgery Cholecystectomy Exploratory laparotomy Family History - Mother lung CA, CAD - Father with CAD Social History * Smoker: former Smoker Alcohol: Denies Drugs: denies A-FIB/CHADSVASC A-FIB History Current/History of A-Fib/PAF?: No Current PO Anticoag Therapy: No Review of Systems Constitutional: Denies: Chills, Fever Eyes: Denies: Pain ENT: Denies: Head Aches Skin: Denies: Rash, Lesions Pulmonary: Reports: Dyspnea Cardiovascular: Denies: Chest Pain Gastrointestinal: Denies: Nausea, Vomiting Genitourinary: Denies: Dysuria, Frequency Hematologic: Denies: Bruising Endocrine: Denies: Polydipsia Musculoskeletal: Denies: Neck Pain Neurological: Denies: Weakness Psych: Reports: Mood Normal Physical Examination General Exam: Positive: Alert, Cooperative Eye Exam: Positive: PERRLA ENT Exam: Positive: Atraumatic Neck Exam: Positive: Supple; Negative: JVD Chest Exam: Positive: Diminished Heart Exam: Positive: Rate Normal Telemetry: Positive: No significant arrhythmia Abdomen Exam: Positive: Normal bowel sounds Extremity Exam: Negative: Clubbing, Cyanosis Skin Exam: Positive: Nl turgor and temperature Neuro Exam: Positive: Strength at 5/5 X4 ext Psych Exam: Positive: Mental status NL, Oriented x 3 Vital Signs Vital Signs Date Time Temp Pulse Resp B/P (MAP) Pulse Ox O2 Delivery O2 Flow Rate FiO2 09/02/20 07:38 Nasal Cannula 3.0 Laboratory Data Labs 24H Laboratory Tests 2 09/02/20 07:33: Immature Granulocyte % (Auto) 1.5, Neutrophils (%) (Auto) 62.9, Lymphocytes (%) (Auto) 24.3, Monocytes (%) (Auto) 8.7H, Eosinophils (%) (Auto) 1.8, Basophils (%) (Auto) 0.8, Neutrophils # (Auto) 8.5, Lymphocytes # (Auto) 3.3, Monocytes # (Auto) 1.2H, Eosinophils # (Auto) 0.3, Basophils # (Auto) 0.1, Nucleated Red Blood Cells % (auto) 0.0, Lactic Acid Level 1.6, Total Bilirubin 0.2, Direct Bilirubin < 0.1, Aspartate Amino Transf (AST/SGOT) 31, Alanine Aminotransferase (ALT/SGPT) 52, Alkaline Phosphatase 165H, NT-Uig-E-Type Natriuretic Peptide 248H, Total Protein 7.1, Albumin 3.1L, Albumin/Globulin Ratio 0.8L, Thyroid Stimulating Hormone (TSH) 1.890 09/02/20 07:38: POC Glucose (Misc Panel) 260H, POC Sodium (Misc Panel) 141, POC Potassium (Misc Panel) 4.5, POC Chloride (Misc Panel) 100, POC Total CO2 (Misc Panel) 36.0H, POC Blood Urea Nitrogen (Misc Panel 11, POC Ionized Calcium (Misc Panel) 5.2, POC Creatinine (Misc Panel) 0.5L, POC Hematocrit (Misc Panel) 36.0L 09/02/20 07:48: POC Troponin I (Misc) 0.00 09/02/20 07:52: POC Total CO2 (Misc Panel) 38.0H, POC pH (Misc Panel) 7.219*L, POC Base Excess (Misc Panel) 8.0H, POC Saturated Percent O2 (Misc) 58L, POC pO2 (Misc Panel) 38.0*L, POC pCO2 (Misc Panel) 87.1*H, POC HCO3 (Misc Panel) 35.6H 09/02/20 08:07: POC pH (Misc Panel) 7.263L, POC Base Excess (Misc Panel) 6.0H, POC Saturated Percent O2 (Misc) 96, POC pO2 (Misc Panel) 94.0, POC pCO2 (Misc Panel) 72.9*H, POC HCO3 (Misc Panel) 33.0H, POC Total CO2 (Misc Panel) 35.0H CBC/BMP Laboratory Tests 09/02/20 07:33 Microbiology Microbiology 09/02/20 Respiratory Virus Panel (PCR) (TERRANCE) - Final, Complete 09/02/20 Blood Culture, Received Pending Assessment/Plan Patient is 64 years old male with past history of SUYAPA on BiPAP, chronic hypoxic respiratory failure on 3 L of oxygen at home, COPD prednisone dependent, CAD, [place] in 2010 without stent, dyslipidemia, diastolic heart failure, insulin-dependent diabetes, bipolar disorder, hypothyroidism, depression, chronic back pain and reflux presented to the hospital with increased shortness of breath. Patient stated that for past few days she has been having increased shortness of breath requires more oxygen from her baseline 3 L. Patient denied fever, chills, cough or sputum production. She denies legs swelling increase. Denies any nausea, vomiting, abdominal pain, constipation, diarrhea, or urinary discomfort. In ER patient was found to have ABG pH 7.4, CO2 62.1, labs pertinent for leukocytosis of 13.6, BNP 258. Chest x-ray stable chronic changes. In ER patient was placed on the BiPAP with home settings 12/6 Problems (1) Acute on chronic respiratory failure with hypercapnia Status: Acute Problem Text: Continue BiPAP with home settings Continue to monitor ABG IV steroids Inhalers (2) Anxiety Status: Chronic Problem Text: Continue home meds (3) HTN (hypertension) Status: Chronic Problem Text: Blood pressures under control Continue home meds (4) Hypothyroid Status: Chronic Problem Text: Continue levothyroxine (5) Hyperlipidemia Status: Chronic Problem Text: Continue statin (6) CAD (coronary artery disease) Status: Chronic Problem Text: Patient denies any chest pain EKG doesn't show any acute ischemic changes Continue home meds (7) Diabetes mellitus Status: Chronic Problem Text: Insulin sliding scale Diabetes diet Detemir 15 units twice a day (8) GERD (gastroesophageal reflux disease) Status: Chronic Problem Text: Continue PPI (9) CAD (coronary artery disease) Status: Chronic (10) CHF (congestive heart failure) Status: Chronic Problem Text: Chronic diastolic CHF Not in acute exacerbation Isodose (11) Leukocytosis Problem Text: Patient doesn't have fever, cough or sputum production Could be secondary to steroid Continue to monitor (12) SUYAPA treated with BiPAP Status: Chronic Problem Text: SUYAPA on BIPAP home BIPAP use while inpatient (13) Bipolar disorder Status: Chronic Problem Text: Continue home meds Plan / VTE VTE Prophylaxis Ordered?: Yes GABRIELLE TAYLOR DO Sep 02, 2020 09:49
[2020-09-02] MEDS ORDERED: PILL CUTTER 1 EACH XX PRN (10:30)
[2020-09-02] MEDS: methylPREDNISolone 125MG 2ML VIAL IV SCH ×2 (12:35→17:52)
[2020-09-02] MEDS: MULTIVITAMINS/MINERALS THERAP 1 TAB PO SCH (12:37)
[2020-09-02] MEDS: FLUoxetine 20 MG CAP PO SCH (12:38)
[2020-09-02] MEDS: FLUoxetine 10 MG CAP PO SCH (12:38)
[2020-09-02] MEDS: ASPIRIN 81MG ENTERIC TABLET PO SCH (12:38)
[2020-09-02] MEDS: MAGNESIUM OXIDE 400MG TAB (MAG-OX) PO SCH ×2 (12:38→21:02)
[2020-09-02] MEDS: PANTOPRAZOLE 40MG TAB (PROTONIX) PO SCH (12:38)
[2020-09-02] MEDS: VITAMIN D 1,000 INTERNATIONAL UNITS TABLET PO SCH (12:39)
[2020-09-02] MEDS: ATORVASTATIN 20 MG TAB PO SCH (12:39)
[2020-09-02] MEDS: SIMETHICONE 80MG CHEW TAB PO SCH ×2 (12:39→17:38)
[2020-09-02] MEDS: hydrOXYzine 25 MG TAB PO SCH (12:39)
[2020-09-02 13:42] VITALS: BP 119/59
[2020-09-02] MEDS: BISOPROLOL FUM 2.5 MG PER 1/2TAB PO SCH (13:57)
[2020-09-02] MEDS: HumaLOG INSULIN (NovoLOG) PER UNIT SC SCH ×3 (13:59→21:03)
[2020-09-02 16:00] VITALS: BP 138/63
--- NOTE | 2020-09-02 16:06 | ECGEPIP ---
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
[2020-09-02] MEDS: GABAPENTIN 300 MG CAP PO SCH ×2 (16:15→21:02)
[2020-09-02] MEDS: TORSEMIDE 100 MG TAB PO SCH (16:16)
[2020-09-02 20:00] VITALS: BP 116/58
[2020-09-02] MEDS: ALPRAZolam 0.5 MG TAB PO SCH (21:01)
[2020-09-03] VITALS (8 sets, daily range): BP systolic 111–132; BP diastolic 59–86; O2SAT 95–97
[2020-09-03] MEDS: IPRATROPIUM 0.5MG/ALBUTEROL 2.5MG INH SOL UD 3ML (DUONEB) NEB SCH ×4 (01:11→19:30)
[2020-09-03] MEDS: methylPREDNISolone 125MG 2ML VIAL IV SCH ×2 (03:32→11:29)
[2020-09-03 05:51] LABS: HEMATOCRIT 35.2 % (36.0-47.0); HEMOGLOBIN 10.2 g/dl (12.0-15.5); MEAN CORPUSCULAR VOLUME 82.8 fl (80.0-96.0); PLATELET COUNT, AUTOMATED 448 10^3/uL (150-450); RED BLOOD COUNT 4.25 10^6/uL (4.00-5.40); WHITE BLOOD COUNT 12.3 10^3/uL (4.0-10.0)
[2020-09-03] MEDS: LEVOTHYROXINE 25MCG TABLET (0.025MG) PO SCH (06:19)
[2020-09-03 06:24] LABS: ALBUMIN 3.3 GM/DL (3.2-5.2); ALT/SGPT 55 U/L (12-78); BILIRUBIN,TOTAL 0.5 MG/DL (0.2-1.0); BLOOD UREA NITROGEN 16 MG/DL (7-18); CALCIUM LEVEL 8.1 MG/DL (8.8-10.2); CARBON DIOXIDE LEVEL 39 MEQ/L (21-32); CHLORIDE LEVEL 94 MEQ/L (98-107); CREATININE FOR GFR 0.62 MG/DL (0.55-1.30); GLOMERULAR FILTRATION RATE > 60.0 (>45); GLUCOSE, FASTING 358 MG/DL (70-100); MAGNESIUM LEVEL 1.8 MG/DL (1.8-2.4); POTASSIUM SERUM 3.6 MEQ/L (3.5-5.1); SODIUM LEVEL 139 MEQ/L (136-145); TOTAL PROTEIN 6.6 GM/DL (6.4-8.2)
[2020-09-03] MEDS: ADVAIR HFA 230/21MCG INHALER INH SCH ×2 (07:41→19:29)
[2020-09-03] MEDS: FLUoxetine 20 MG CAP PO SCH (08:41)
[2020-09-03] MEDS: HumaLOG INSULIN (NovoLOG) PER UNIT SC SCH ×4 (08:41→20:45)
[2020-09-03] MEDS: MAGNESIUM OXIDE 400MG TAB (MAG-OX) PO SCH ×2 (08:41→20:42)
[2020-09-03] MEDS: SIMETHICONE 80MG CHEW TAB PO SCH ×3 (08:41→17:43)
[2020-09-03] MEDS: ATORVASTATIN 20 MG TAB PO SCH (08:42)
[2020-09-03] MEDS: MULTIVITAMINS/MINERALS THERAP 1 TAB PO SCH (08:42)
[2020-09-03] MEDS: FLUoxetine 10 MG CAP PO SCH (08:42)
[2020-09-03] MEDS: PANTOPRAZOLE 40MG TAB (PROTONIX) PO SCH (08:42)
[2020-09-03] MEDS: ASPIRIN 81MG ENTERIC TABLET PO SCH (08:43)
[2020-09-03] MEDS: POTASSIUM CHLORIDE 10 MEQ SR TABLET PO SCH ×4 (08:43→20:43)
[2020-09-03] MEDS: TORSEMIDE 100 MG TAB PO SCH (08:43)
[2020-09-03] MEDS: BISOPROLOL FUM 2.5 MG PER 1/2TAB PO SCH (08:44)
[2020-09-03] MEDS: ALPRAZolam 0.5 MG TAB PO SCH ×2 (08:44→20:43)
[2020-09-03] MEDS: GABAPENTIN 300 MG CAP PO SCH ×3 (08:44→20:44)
[2020-09-03] MEDS: ENOXAPARIN 40MG/0.4ML SYRINGE (J1650 PER 10MG) SC SCH (08:50)
[2020-09-03 11:12] LABS: ABG BASE EXCESS 9.4 (-2.0-2.0); ABG HCO3 34.1 MEQ/L (22.0-26.0); ABG O2 SATURATION 96.3 % (95.0-99.0); ABG PARTIAL PRESSURE CO2 46.8 mmHg (35.0-45.0); ABG PARTIAL PRESSURE O2 130.3 mmHg (75.0-100.0); ABG STANDARD HCO3 33.1 MEQ/L (22.0-26.0); ABG TOTAL CO2 35.5 MEQ/L (23.0-31.0)
[2020-09-03] MEDS: GASTROGRAFIN SOLUTION 30ML PO SCH ×2 (11:30→12:12)
[2020-09-03] MEDS: LEVEMIR (INSULIN DETEMIR) 1 UNITS/0.01ML SC SCH ×2 (11:30→20:45)
[2020-09-03] MEDS ORDERED: ISOVUE-370 76% 100ML VIAL As Ordered ONE (13:02)
[2020-09-03] MEDS: hydrOXYzine 25 MG TAB PO SCH (13:59)
[2020-09-03] MEDS: VITAMIN D 1,000 INTERNATIONAL UNITS TABLET PO SCH (13:59)
[2020-09-03] MEDS ORDERED: predniSONE 20 MG TAB PO ONE (15:40)
--- NOTE | 2020-09-03 16:17 | IPNPDOC ---
Text Note Date of Service The patient was seen on 09/03/20. NOTE Subjective: Patient complains of dyspnea. She was on BiPAP in the morning then she was on 3 L via nasal cannula with pulse ox 93-94%. Also patient complains of moderate diffuse abdominal pain Objective: GENERAL APPEARANCE: In moderate distress, morbidly obese female HEENT: no scleral icterus, no JVD, EOMI CARDIOVASCULAR: S1S2 LUNGS: Diminished lung sounds bilaterally, no wheezes ABDOMEN: soft & mildly tender w palpitation MUSCULOSKELETAL: no cyanosis, no swelling INTEGUMENT: no generalized pallor NEUROLOGICAL: cranial nerve function from 2-12 intact intact, follows commands, speech not dysarthric Assessment/Plan Patient is 64 years old male with past history of SUYAPA on BiPAP, chronic hypoxic respiratory failure on 3 L of oxygen at home, COPD prednisone dependent, CAD, [place] in 2010 without stent, dyslipidemia, diastolic heart failure, insulin-dependent diabetes, bipolar disorder, hypothyroidism, depression, chronic back pain and reflux presented to the hospital with increased shortness of breath. Patient stated that for past few days she has been having increased shortness of breath requires more oxygen from her baseline 3 L. Patient denied fever, chills, cough or sputum production. She denies legs swelling increase. Denies any nausea, vomiting, abdominal pain, constipation, diarrhea, or urinary discomfort. In ER patient was found to have ABG pH 7.4, CO2 62.1, labs pertinent for leukocytosis of 13.6, BNP 258. Chest x-ray stable chronic changes. In ER patient was placed on the BiPAP with home settings 04/29 Problems (1) Acute on chronic respiratory failure with hypercapnia Continue BiPAP with home settings On 09/03/20 ABG pH 7.4, CO2 46.8 I changed her IV steroids to by mouth prednisone Continue Inhalers Patient currently on 3 L of oxygen which is her baseline (2) Anxiety Continue home meds (3) HTN (hypertension) Blood pressures under control Continue home meds (4) Hypothyroid Continue levothyroxine (5) Hyperlipidemia Continue statin (6) CAD (coronary artery disease) Patient denies any chest pain EKG doesn't show any acute ischemic changes Continue home meds (7) Diabetes mellitus Insulin sliding scale Diabetes diet Detemir 15 units twice a day (8) GERD (gastroesophageal reflux disease) Continue PPI CHF (congestive heart failure) Chronic diastolic CHF Not in acute exacerbation IsOs (11) Leukocytosis Patient doesn't have fever, cough or sputum production Could be secondary to steroid Continue to monitor Blood Culture negative (12) SUYAPA treated with BiPAP SUYAPA on BIPAP home BIPAP use while inpatient (13) Bipolar disorder Continue home meds Abdominal pain CT abdomen/pelvis VS,Fishbone, I+O VS, Fishbone, I+O Laboratory Tests 09/03/20 05:34 Vital Signs Date Time Temp Pulse Resp B/P (MAP) Pulse Ox O2 Delivery O2 Flow Rate FiO2 09/03/20 15:53 3.0 09/03/20 11:15 97.0 79 18 123/64 (83) 93 Nasal Cannula I&O- Last 24 Hours up to 6 AM 09/03/20 06:00 Intake Total 1460 ml Output Total 3800 ml Balance -2340 ml GABRIELLE TAYLOR DO Sep 03, 2020 16:17
[2020-09-03] MEDS ORDERED: HumaLOG INSULIN (NovoLOG) PER UNIT SC STA (18:26)
[2020-09-04] VITALS (25 sets, daily range): BP systolic 101–122; BP diastolic 54–64; O2SAT 84–100
[2020-09-04] MEDS: IPRATROPIUM 0.5MG/ALBUTEROL 2.5MG INH SOL UD 3ML (DUONEB) NEB SCH ×4 (01:32→19:18)
[2020-09-04] MEDS: LEVOTHYROXINE 25MCG TABLET (0.025MG) PO SCH (06:19)
[2020-09-04 06:41] LABS: BASO % 0.2 % (0.0-1.0); HEMATOCRIT 33.8 % (36.0-47.0); HEMOGLOBIN 9.8 g/dl (12.0-15.5); LYMPH # 1.4 10^3/uL (1.5-5.0); LYMPH % 10.6 % (24.0-44.0); MEAN CORPUSCULAR HEMOGLOBIN 24.6 pg (27.0-33.0); MEAN CORPUSCULAR VOLUME 84.7 fl (80.0-96.0); MONO # 1.1 10^3/uL (0.0-0.8); MONO % 8.3 % (2.0-8.0); NEUTROPHILS # 10.6 10^3/uL (1.5-8.5); NEUTROPHILS % 80.4 % (36.0-66.0); PLATELET COUNT, AUTOMATED 420 10^3/uL (150-450); RED BLOOD COUNT 3.99 10^6/uL (4.00-5.40); WHITE BLOOD COUNT 13.2 10^3/uL (4.0-10.0)
[2020-09-04 07:02] LABS: ALT/SGPT 42 U/L (12-78); BILIRUBIN,TOTAL 0.3 MG/DL (0.2-1.0); BLOOD UREA NITROGEN 21 MG/DL (7-18); CALCIUM LEVEL 8.3 MG/DL (8.8-10.2); CARBON DIOXIDE LEVEL 38 MEQ/L (21-32); CHLORIDE LEVEL 95 MEQ/L (98-107); CREATININE FOR GFR 0.67 MG/DL (0.55-1.30); GLOMERULAR FILTRATION RATE > 60.0 (>45); GLUCOSE, FASTING 373 MG/DL (70-100); MAGNESIUM LEVEL 2.4 MG/DL (1.8-2.4); POTASSIUM SERUM 3.9 MEQ/L (3.5-5.1); SODIUM LEVEL 139 MEQ/L (136-145); TOTAL PROTEIN 6.1 GM/DL (6.4-8.2)
[2020-09-04] MEDS: HumaLOG INSULIN (NovoLOG) PER UNIT SC SCH ×4 (08:06→21:01)
[2020-09-04] MEDS: ENOXAPARIN 40MG/0.4ML SYRINGE (J1650 PER 10MG) SC SCH (08:06)
[2020-09-04] MEDS: LEVEMIR (INSULIN DETEMIR) 1 UNITS/0.01ML SC SCH ×2 (08:06→21:01)
[2020-09-04] MEDS: FLUoxetine 20 MG CAP PO SCH (08:07)
[2020-09-04] MEDS: predniSONE 20 MG TAB PO SCH (08:07)
[2020-09-04] MEDS: SIMETHICONE 80MG CHEW TAB PO SCH ×3 (08:07→17:37)
[2020-09-04] MEDS: MULTIVITAMINS/MINERALS THERAP 1 TAB PO SCH (08:07)
[2020-09-04] MEDS: GABAPENTIN 300 MG CAP PO SCH ×3 (08:08→20:58)
[2020-09-04] MEDS: FLUoxetine 10 MG CAP PO SCH (08:08)
[2020-09-04] MEDS: PANTOPRAZOLE 40MG TAB (PROTONIX) PO SCH (08:08)
[2020-09-04] MEDS: MAGNESIUM OXIDE 400MG TAB (MAG-OX) PO SCH ×2 (08:08→21:00)
[2020-09-04] MEDS: POTASSIUM CHLORIDE 10 MEQ SR TABLET PO SCH ×4 (08:08→20:59)
[2020-09-04] MEDS: ALPRAZolam 0.5 MG TAB PO SCH ×2 (08:08→21:00)
[2020-09-04] MEDS: ATORVASTATIN 20 MG TAB PO SCH (08:09)
[2020-09-04] MEDS: ASPIRIN 81MG ENTERIC TABLET PO SCH (08:09)
[2020-09-04] MEDS: BISOPROLOL FUM 2.5 MG PER 1/2TAB PO SCH (08:09)
[2020-09-04] MEDS: TORSEMIDE 100 MG TAB PO SCH (08:09)
[2020-09-04] MEDS: ADVAIR HFA 230/21MCG INHALER INH SCH ×2 (08:16→19:17)
--- NOTE | 2020-09-04 09:00 | REP ---
INDICATION: abdominal pain. COMPARISON: 04/03/2020 TECHNIQUE: Axial contrast-enhanced images from the lung bases to the pubic symphysis using 100 cc Isovue 370 intravenous contrast material. Coronal and sagittal reformations obtained along with delayed images of the abdomen. This CT examination was performed using the following dose reduction techniques: Automated exposure control, adjustment of mA and/or kv according to the patient's size, and the use of iterative reconstruction technique. FINDINGS: Hepatomegaly and hepatosteatosis noted without focal hepatic lesion. Spleen, pancreas, left adrenal gland and kidneys are normal. Incidental chronic right adrenal hyperplasia and subcentimeter simple left renal cyst noted. Patient is status post cholecystectomy. The enteric system including stomach, small, and large bowel appears normal. No evidence for obstruction or acute inflammatory process. Normal terminal ileum and cecum are identified in the right lower quadrant. Scattered colonic and sigmoid diverticula noted without acute diverticulitis. Pelvis demonstrates normal bladder and age-appropriate uterus/adnexa. No ascites. No free air. No intraperitoneal or retroperitoneal adenopathy. Abdominal aorta and vasculature appear normal. Musculoskeletal structures are intact and without acute osseous abnormality. IMPRESSION: No acute abdominopelvic pathology appreciated. Hepatomegaly and hepatosteatosis. Diverticulosis without acute diverticulitis. <Electronically signed by Michael Vasques > 09/04/20 0892
[2020-09-04] MEDS: VITAMIN D 1,000 INTERNATIONAL UNITS TABLET PO SCH (12:08)
[2020-09-04] MEDS: hydrOXYzine 25 MG TAB PO SCH (12:08)
--- NOTE | 2020-09-04 15:22 | IPNPDOC ---
Text Note Date of Service The patient was seen on 09/04/20. NOTE Subjective: No any acute events overnight. Patient stated she feels much better today her breathing improved. She is breathing via nasal cannula on 3 L. Objective: GENERAL APPEARANCE: In moderate distress, morbidly obese female HEENT: no scleral icterus, no JVD, EOMI CARDIOVASCULAR: S1S2 LUNGS: Diminished lung sounds bilaterally, no wheezes ABDOMEN: soft & mildly tender w palpitation MUSCULOSKELETAL: no cyanosis, no swelling INTEGUMENT: no generalized pallor NEUROLOGICAL: cranial nerve function from 2-12 intact intact, follows commands, speech not dysarthric Assessment/Plan Patient is 64 years old male with past history of SUYAPA on BiPAP, chronic hypoxic respiratory failure on 3 L of oxygen at home, COPD prednisone dependent, CAD, [place] in 2010 without stent, dyslipidemia, diastolic heart failure, insulin-dependent diabetes, bipolar disorder, hypothyroidism, depression, chronic back pain and reflux presented to the hospital with increased shortness of breath. Patient stated that for past few days she has been having increased shortness of breath requires more oxygen from her baseline 3 L. Patient denied fever, chills, cough or sputum production. She denies legs swelling increase. Denies any nausea, vomiting, abdominal pain, constipation, diarrhea, or urinary discomfort. In ER patient was found to have ABG pH 7.4, CO2 62.1, labs pertinent for leukocytosis of 13.6, BNP 258. Chest x-ray stable chronic changes. In ER patient was placed on the BiPAP with home settings 04/29 Problems (1) Acute on chronic respiratory failure with hypercapnia 2/2 COPD exacerbation Continue BiPAP with home settings On 09/03/20 ABG pH 7.4, CO2 46.8 Continue prednisone Continue Inhalers Patient currently on 3 L of oxygen which is her baseline (2) Anxiety Continue home meds (3) HTN (hypertension) Blood pressures under control Continue home meds (4) Hypothyroid Continue levothyroxine (5) Hyperlipidemia Continue statin (6) CAD (coronary artery disease) Patient denies any chest pain EKG doesn't show any acute ischemic changes Continue home meds (7) Diabetes mellitus Insulin sliding scale Diabetes diet Detemir 15 units twice a day (8) GERD (gastroesophageal reflux disease) Continue PPI CHF (congestive heart failure) Chronic diastolic CHF Not in acute exacerbation IsOs (11) Leukocytosis Patient doesn't have fever, cough or sputum production Could be secondary to steroid Continue to monitor Blood Culture negative (12) SUYAPA treated with BiPAP SUYAPA on BIPAP home BIPAP use while inpatient (13) Bipolar disorder Continue home meds Abdominal pain CT abdomen/pelvis VS,Fishbone, I+O VS, Fishbone, I+O Laboratory Tests 09/04/20 06:07 Vital Signs Date Time Temp Pulse Resp B/P (MAP) Pulse Ox O2 Delivery O2 Flow Rate FiO2 09/04/20 12:00 96.3 97 24 122/64 (83) 95 NIPPV (BIPAP/CPAP) 3.0 I&O- Last 24 Hours up to 6 AM 09/04/20 06:00 Intake Total 2640 ml Output Total 3400 ml Balance -760 ml GABRIELLE TAYLOR DO Sep 04, 2020 15:22
[2020-09-04 22:58] LABS: HEMOGLOBIN A1c 9.2 %
[2020-09-05] VITALS (7 sets, daily range): BP systolic 123–129; BP diastolic 59–60; O2SAT 96–99
[2020-09-05] MEDS: IPRATROPIUM 0.5MG/ALBUTEROL 2.5MG INH SOL UD 3ML (DUONEB) NEB SCH ×2 (02:48→07:57)
[2020-09-05] MEDS: LEVOTHYROXINE 25MCG TABLET (0.025MG) PO SCH (05:13)
[2020-09-05 05:54] LABS: BASO % 0.3 % (0.0-1.0); EOS % 0.4 % (0.0-3.0); HEMATOCRIT 34.8 % (36.0-47.0); HEMOGLOBIN 10.1 g/dl (12.0-15.5); LYMPH # 2.1 10^3/uL (1.5-5.0); MEAN CORPUSCULAR HEMOGLOBIN 24.7 pg (27.0-33.0); MEAN CORPUSCULAR VOLUME 85.1 fl (80.0-96.0); MONO # 1.2 10^3/uL (0.0-0.8); MONO % 11.2 % (2.0-8.0); NEUTROPHILS # 7.1 10^3/uL (1.5-8.5); NEUTROPHILS % 67.4 % (36.0-66.0); PLATELET COUNT, AUTOMATED 392 10^3/uL (150-450); RED BLOOD COUNT 4.09 10^6/uL (4.00-5.40); WHITE BLOOD COUNT 10.6 10^3/uL (4.0-10.0)
[2020-09-05 06:49] LABS: ALBUMIN 3.1 GM/DL (3.2-5.2); ALT/SGPT 49 U/L (12-78); BILIRUBIN,TOTAL 0.4 MG/DL (0.2-1.0); BLOOD UREA NITROGEN 18 MG/DL (7-18); CALCIUM LEVEL 8.1 MG/DL (8.8-10.2); CARBON DIOXIDE LEVEL 40 MEQ/L (21-32); CHLORIDE LEVEL 92 MEQ/L (98-107); CREATININE FOR GFR 0.71 MG/DL (0.55-1.30); GLOMERULAR FILTRATION RATE > 60.0 (>45); GLUCOSE, FASTING 302 MG/DL (70-100); MAGNESIUM LEVEL 2.3 MG/DL (1.8-2.4); POTASSIUM SERUM 3.2 MEQ/L (3.5-5.1); SODIUM LEVEL 139 MEQ/L (136-145); TOTAL PROTEIN 6.3 GM/DL (6.4-8.2)
[2020-09-05] MEDS: ADVAIR HFA 230/21MCG INHALER INH SCH (07:56)
[2020-09-05] MEDS ORDERED: POTASSIUM CHLORIDE 10 MEQ SR TABLET PO ONE (08:00)
[2020-09-05] MEDS: HumaLOG INSULIN (NovoLOG) PER UNIT SC SCH (08:36)
[2020-09-05] MEDS: PANTOPRAZOLE 40MG TAB (PROTONIX) PO SCH (08:37)
[2020-09-05] MEDS: POTASSIUM CHLORIDE 10 MEQ SR TABLET PO SCH (08:37)
[2020-09-05] MEDS: MULTIVITAMINS/MINERALS THERAP 1 TAB PO SCH (08:37)
[2020-09-05] MEDS: FLUoxetine 10 MG CAP PO SCH (08:38)
[2020-09-05] MEDS: FLUoxetine 20 MG CAP PO SCH (08:38)
[2020-09-05] MEDS: TORSEMIDE 100 MG TAB PO SCH (08:38)
[2020-09-05] MEDS: SIMETHICONE 80MG CHEW TAB PO SCH (08:38)
[2020-09-05] MEDS: predniSONE 20 MG TAB PO SCH (08:39)
[2020-09-05] MEDS: ASPIRIN 81MG ENTERIC TABLET PO SCH (08:39)
[2020-09-05] MEDS: GABAPENTIN 300 MG CAP PO SCH (08:39)
[2020-09-05] MEDS: ATORVASTATIN 20 MG TAB PO SCH (08:39)
[2020-09-05] MEDS: MAGNESIUM OXIDE 400MG TAB (MAG-OX) PO SCH (08:39)
[2020-09-05] MEDS: ENOXAPARIN 40MG/0.4ML SYRINGE (J1650 PER 10MG) SC SCH (08:40)
[2020-09-05] MEDS: BISOPROLOL FUM 2.5 MG PER 1/2TAB PO SCH (08:40)
[2020-09-05] MEDS: ALPRAZolam 0.5 MG TAB PO SCH (08:40)
[2020-09-05] MEDS ORDERED: LEVEMIR (INSULIN DETEMIR) 1 UNITS/0.01ML SC SCH (09:00)
[2020-09-05] MEDS ORDERED: SLF 3 ML SYR IV PRN (09:50)
[2020-09-05] MEDS ORDERED: PRED10TA2 PO (10:26)
[2020-09-05] MEDS ORDERED: LANTINJ4 SC (10:31)
--- NOTE | 2020-09-05 11:22 | ECHO ---
DATE OF PROCEDURE: 09/04/2020 Age: 64 Gender: Female Height: 5 feet 4 inches Weight: 244 pounds REFERRING PHYSICIAN: Bar Moore DO. INDICATION: Dyspnea, unspecified. MEASUREMENTS: 2D Measurements: Intraventricular septum 0.79 cm Posterior wall measurement technically difficult LV diastole measurement technically difficult Left atrium 3.9 cm Aortic root 3.1 cm Inferior vena cava 1.9 cm Doppler Measurements: No aortic stenosis No aortic regurgitation Aortic valve velocity 155 cm/s LVOT velocity 105 cm/s LVOT VTI 23.2 cm No mitral regurgitation No mitral stenosis Mitral E velocity 101 cm/s Mitral A velocity 115 cm/s Mitral deceleration time 180 msec No tricuspid regurgitation Very mild pulmonic regurgitation Pulmonary artery acceleration time 106 msec MITRAL ANNULAR TISSUE DOPPLER E prime septal 8.9 cm/s, E prime lateral 8.4 cm/s DESCRIPTION: Rhythm was sinus. This was a moderately technically difficult echocardiogram. No pericardial effusion. This was a 2D, M-mode, color flow Doppler, and pulsed wave Doppler examination including mitral annular tissue Doppler. CONCLUSIONS: 1. Visual appearance of normal left ventricle internal dimensions and wall thickness. Normal regional LV wall motion and wall thickening. Normal LV systolic function. LVEF 65% - 70%. Grade 1 LV diastolic dysfunction. 2. Mild left atrial dilatation. 3. Moderate aortic valve sclerosis of a 3-cuspid aortic valve. No aortic stenosis or aortic regurgitation. 4. Moderate mitral annual calcification. No mitral regurgitation or mitral stenosis. 5. Suggestive of mild elevation of pulmonary artery systolic pressure. 6. Moderately technically difficult echocardiogram. [facility]
[2020-09-05] MEDS ORDERED: SLF 3 ML SYR IV SCH (14:00)
--- NOTE | 2020-09-05 16:27 | DS.PDOC ---
Discharge Summary General Date of Admission Sep 02, 2020 at 09:28 Date of Discharge 09/05/20 Discharge Summary PROCEDURES PERFORMED DURING STAY: [None]. ADMITTING DIAGNOSES: Acute on chronic respiratory failure with hypercapnia Anxiety HTN (hypertension) Hypothyroid Hyperlipidemia CAD (coronary artery disease) Diabetes mellitus GERD (gastroesophageal reflux disease) Leukocytosis SUYAPA treated with BiPAP CHF (congestive heart failure) Bipolar disorder Abdominal pain DISCHARGE DIAGNOSES: Acute on chronic respiratory failure with hypercapnia Anxiety HTN (hypertension) Hypothyroid Hyperlipidemia CAD (coronary artery disease) Diabetes mellitus GERD (gastroesophageal reflux disease) Leukocytosis SUYAPA treated with BiPAP CHF (congestive heart failure) Bipolar disorder Abdominal pain COMPLICATIONS/CHIEF COMPLAINT: Acute Or Chronic Respiratory Failure W Hyper capnia. HISTORY OF PRESENT ILLNESS: Patient is 64 years old male with past history of O SA on BiPAP, chronic hypoxic respiratory failure on 3 L of oxygen at home, COPD prednisone dependent, CAD, VT in 2010 without stent, dyslipidemia, diastolic heart failure, insulin-dependent diabetes, bipolar disorder, hypothyroidism, depression, chronic back pain and reflux presented to the hospital with increased shortness of breath. Patient stated that for past few days she has been having increased shortness of breath requires more oxygen from her baseline 3 L. Patient denied fever, chills, cough or sputum production. She denies legs swelling increase. Denies any nausea, vomiting, abdominal pain, constipation, diarrhea, or urinary discomfort. In ER patient was found to have ABG pH 7.4, C O2 62.1, labs pertinent for leukocytosis of 13.6, BNP 258. Chest x-ray stable chronic changes. In ER patient was placed on the BiPAP with home settings 04/29 HOSPITAL COURSE: During the hospital stay the following issue addressed (1) Acute on chronic respiratory failure with hypercapnia 2/2 COPD exacerbation Continue BiPAP with home settings On 09/03/20 ABG pH 7.4, CO2 46.8 Patient received treatment with steroids And Inhalers Patient currently on 3 L of oxygen which is her baseline (2) Anxiety Continue home meds (3) HTN (hypertension) Blood pressures under control Continue home meds (4) Hypothyroid Continue levothyroxine (5) Hyperlipidemia Continue statin (6) CAD (coronary artery disease) Patient denies any chest pain EKG doesn't show any acute ischemic changes Continue home meds (7) Diabetes mellitus Insulin sliding scale Diabetes diet Patient received treatment with Detemir . Recommended to increase the dose of basal insulin on discharge (8) GERD (gastroesophageal reflux disease) Continue PPI CHF (congestive heart failure) Chronic diastolic CHF Not in acute exacerbation IsOs (11) Leukocytosis Patient doesn't have fever, cough or sputum production Could be secondary to steroid Continue to monitor Blood Culture negative (12) SUYAPA treated with BiPAP SUYAPA on BIPAP home BIPAP use while inpatient (13) Bipolar disorder Continue home meds Abdominal pain CT abdomen/pelvis DISCHARGE MEDICATIONS: Please see below. ALLERGIES: Please see below. PHYSICAL EXAMINATION ON DISCHARGE: VITAL SIGNS: Please see below. GENERAL APPEARANCE: In moderate distress, morbidly obese female HEENT: no scleral icterus, no JVD, EOMI CARDIOVASCULAR: S1S2 LUNGS: Diminished lung sounds bilaterally, no wheezes ABDOMEN: soft & mildly tender w palpitation MUSCULOSKELETAL: no cyanosis, no swelling INTEGUMENT: no generalized pallor NEUROLOGICAL: cranial nerve function from 2-12 intact intact, follows commands, speech not dysarthric LABORATORY DATA: Please see below. IMAGING: See above PROGNOSIS: Fair ACTIVITY: [As tolerated]. DIET: Diabetes DISPOSITION: [facility]. DISCHARGE INSTRUCTIONS: Taper prednisone ITEMS TO FOLLOWUP ON ON OUTPATIENT: Follow-up with mumps developer and PCP DISCHARGE CONDITION: [Stable]. TIME SPENT ON DISCHARGE: 40minutes. Vital Signs/I&Os Vital Signs Date Time Temp Pulse Resp B/P (MAP) Pulse Ox O2 Delivery O2 Flow Rate FiO2 09/05/20 08:40 72 123/59 09/05/20 08:00 3.0 09/05/20 07:42 96.8 18 98 NIPPV (BIPAP/CPAP) I&O- Last 24 Hours up to 6 AM 09/05/20 06:00 Intake Total 1290 ml Output Total 4600 ml Balance -3310 ml Laboratory Data Labs 24H Laboratory Tests 2 09/04/20 17:27: Bedside Glucose (Misc Panel) 484H 09/04/20 19:49: Bedside Glucose (Misc Panel) 401H 09/05/20 05:33: Immature Granulocyte % (Auto) 0.7, Neutrophils (%) (Auto) 67.4H, Lymphocytes (%) (Auto) 20.0L, Monocytes (%) (Auto) 11.2H, Eosinophils (%) (Auto) 0.4, Basophils (%) (Auto) 0.3, Neutrophils # (Auto) 7.1, Lymphocytes # (Auto) 2.1, Monocytes # (Auto) 1.2H, Eosinophils # (Auto) 0.0, Basophils # (Auto) 0.0, Nucleated Red Blood Cells % (auto) 0.0, Anion Gap 7L, Glomerular Filtration Rate > 60.0, Calcium Level 8.1L, Magnesium Level 2.3, Total Bilirubin 0.4, Aspartate Amino Transf (AST/SGOT) 28, Alanine Aminotransferase (ALT/SGPT) 49, Alkaline Phosphatase 128H, Total Protein 6.3L, Albumin 3.1L, Albumin/Globulin Ratio 1.0L 09/05/20 10:41: Coronavirus (COVID-19)(PCR) NEGATIVE CBC/BMP Laboratory Tests 09/05/20 05:33 FSBS Laboratory Tests Test 09/04/20 17:27 09/04/20 19:49 Range/Units Bedside Glucose (Misc Panel) 484 401 80-115 MG/DL Microbiology Microbiology 09/02/20 Blood Culture - Preliminary, Resulted No Growth after 72 hours. All specime... 09/02/20 Respiratory Virus Panel (PCR) ([facility]) - Final, Complete 09/02/20 Blood Culture - Preliminary, Resulted No Growth after 72 hours. All specime... Discharge Medications Scheduled Alprazolam (Alprazolam) 0.5 Mg Tablet, 0.5 MG PO BID, (Reported) Aspirin (Aspirin EC) 81 Mg Tablet.dr, 81 MG PO DAILY, (Reported) Atorvastatin Calcium (Lipitor) 80 Mg Tab, 80 MG PO DAILY, (Reported) Bisoprolol Fumarate (Bisoprolol Fumarate) 5 Mg Tab, 2.5 MG PO DAILY, (Reported) Cholecalciferol (Vitamin D3) (Vitamin D3) 1,000 Unit Tablet, 5,000 UNITS PO DAILY, (Reported) TAKES AT LUNCH Fluoxetine Hcl (Fluoxetine HCl) 20 Mg Capsule, 20 MG PO DAILY, (Reported) WITH 10MG FOR A TOTAL OF 30MG Fluoxetine Hcl (Fluoxetine HCl) 10 Mg Capsule, 10 MG PO DAILY, (Reported) WITH 20MG FOR A TOTAL OF 30MG Gabapentin (Gabapentin) 600 Mg Tablet, 600 MG PO TID, (Reported) Hydroxyzine HCl (Hydroxyzine HCl) 25 Mg Tablet, 25 MG PO DAILY, (Reported) @ 1200 Insulin Glargine,Hum.rec.anlog (Lantus Solostar) 100 Unit/1 Ml Insuln.pen, 38 UNITS SC QHS Insulin Lispro (Humalog Kwikpen U-100) 100 Unit/1 Ml Insuln.pen, 20 UNITS SC QPM, (Reported) @ 1630 Insulin Lispro (Humalog Kwikpen U-100) 100 Unit/1 Ml Insuln.pen, 18 UNITS SC DAILY, (Reported) @ 11:30 Ipratropium/Albuterol Sulfate (Iprat-Albut 0.5-3(2.5) mg/3 ml) 3 Ml Ampul.neb, 1 VIAL INH QID, (Reported) Levalbuterol HCl (Levalbuterol HCl) 1.25 Mg/3 Ml Vial.neb, 1 VIAL NEB Q4H, (Reported) Levothyroxine Sodium (Levoxyl) 25 Mcg Tab, 25 MCG PO QAM, (Reported) Linagliptin (Tradjenta) 5 Mg Tablet, 5 MG PO DAILY, (Reported) Magnesium Oxide (Magnesium Oxide) 400 Mg Tablet, 400 MG PO BID, (Reported) Menthol/Zinc Oxide (Gold [place]avares Medicated Body Powdr) 113 Gm Powder, 1 APPLIC TOP BID, (Reported) APPLY TO SKIN FOLDS Metformin HCl (Metformin HCl) 500 Mg Tablet, 500 MG PO BID, (Reported) Multivitamins (Thera M Plus Tablet) 1 Each Tablet, 1 TAB PO DAILY, (Reported) Omeprazole (Omeprazole) 20 Mg Capsule.dr, 20 MG PO BID, (Reported) Potassium Chloride (Potassium Chloride) 20 Meq Tab.er.prt, 20 MEQ PO QID, (Reported) @ 0900, 1300, 1700, 2000 Prednisone (Prednisone) 10 Mg Tablet, 10 MG PO DAILY, (Reported) Prednisone (Prednisone) 10 Mg Tablet, 10 MG PO TAPER 4 tabs x 7days,3 tabs x 7 days,2 tabs daily x 7 days,1tab daily on the regular basis till discussion with radio officer Salmeterol/Fluticasone (Advair 250-50 Diskus) 1 Each Blst.w.dev, 1 PUFF INH BID, (Reported) Simethicone (Simethicone) 80 Mg Tab.chew, 80 MG PO WM, (Reported) Torsemide (Torsemide) 100 Mg Tablet, 150 MG PO DAILY, (Reported) Umeclidinium [place] (Incruse Ellipta) 62.5 Mcg Blst.w.dev, 1 PUFF INH DAILY, (Reported) Scheduled PRN Acetaminophen (Acetaminophen 8 Hour) 650 Mg Tablet.er, 650 MG PO BID PRN for PAIN, (Reported) Albuterol Sulfate (Ventolin Hfa) 108 Mcg/Act Aer, 2 PUFFS INH Q4H PRN for SHORTNESS OF BREATH, (Reported) Alprazolam (Alprazolam) 0.5 Mg Tablet, 0.5 MG PO DAILY PRN for ANXIETY, (Reported) Calcium Carbonate (Tums) 200 Mg Tab.chew, 500 MG PO QID PRN for HEARTBURN, (Reported) Diclofenac Sodium (Voltaren) 100 Gm Gel..gram., 4 GRAM TOP TID PRN for PAIN, (Reported) APPLY TO AREAS OF PAIN. MAY SELF-ADMINISTER Hydrocodone/Acetaminophen (Hydrocodone-Acetamin 5-325 mg) 1 Each Tablet, 1 TAB PO BID PRN for PAIN, (Reported) Ipratropium/Albuterol Sulfate (Iprat-Albut 0.5-3(2.5) mg/3 ml) 3 Ml Ampul.neb, 1 VIAL INH Q6H PRN for SHORTNESS OF BREATH, (Reported) Levalbuterol HCl (Levalbuterol HCl) 1.25 Mg/3 Ml Vial.neb, 1 VIAL NEB Q1H PRN for SOB/WHEEZING, (Reported) Lidocaine HCl (Aspercreme) 4% Cream..g., 1 APLCT TOP QID PRN for PAIN, (Reported) APPLY TO PAINFUL AREAS Miconazole Nitrate (Monistat 3) 15 Gm Crm.pf.juan r, 1 APLCTR PV QHS PRN for YEAST INFECTION, (Reported) Milk Of Magnesia (Milk of Magnesia) 2,400 Mg/10 Ml Oral.susp, 10 ML PO DAILY PRN for CONSTIPATION, (Reported) Nystatin (Nystatin Powder) 15 Gm Powder, 1 DOSE TOP BID PRN for ITCH/RASH, (Reported) USES UNDER BREASTS Allergies Coded Allergies: dapagliflozin (Verified Allergy, Mild, Sores, 05/27/20) Cat Dander (Verified Allergy, Unknown, 05/27/20) Dust (Verified Allergy, Unknown, 05/27/20) GABRIELLE TAYLOR DO Sep 05, 2020 16:27
== END 2020-09-05 11:59 | DRG 189 ==
LOC: M ED 07:25 → EDBD 07:25 → M ED INP 09:28 → ENRESERV 11:47 → M PCU 13:35
PROVIDERS: ADMIT Internal Medicine; ATTEND Internal Medicine
DX: J96.22 Acute and chronic respiratory failure with hypercapnia (principal); J44.1 Chronic obstructive pulmonary disease with (acute) exacerbation; I50.32 Chronic diastolic (congestive) heart failure; G47.33 Obstructive sleep apnea (adult) (pediatric); I11.0 Hypertensive heart disease with heart failure; I25.10 Atherosclerotic heart disease of native coronary artery without angina pectoris; I25.2 Old myocardial infarction; E78.5 Hyperlipidemia, unspecified; E11.65 Type 2 diabetes mellitus with hyperglycemia; E03.9 Hypothyroidism, unspecified; F41.9 Anxiety disorder, unspecified; F31.9 Bipolar disorder, unspecified; M54.9 Dorsalgia, unspecified; G89.29 Other chronic pain; K21.9 Gastro-esophageal reflux disease without esophagitis; D72.829 Elevated white blood cell count, unspecified; Z79.84 Long term (current) use of oral hypoglycemic drugs; Z79.82 Long term (current) use of aspirin; Z79.899 Other long term (current) drug therapy; Z88.8 Allergy status to other drugs, medicaments and biological substances; Z91.09 Other allergy status, other than to drugs and biological substances; Z90.49 Acquired absence of other specified parts of digestive tract; Z87.891 Personal history of nicotine dependence; Z99.81 Dependence on supplemental oxygen; R10.9 Unspecified abdominal pain; Z20.822 Contact with and (suspected) exposure to COVID-19

== ENCOUNTER → 2020-09-19 | Outpatient (REF) | payer MEDICARE, MEDICAID ==
[2020-09-19 11:05] LABS: BLOOD UREA NITROGEN 22 MG/DL (7-18); CALCIUM LEVEL 9.2 MG/DL (8.8-10.2); CARBON DIOXIDE LEVEL 41 MEQ/L (21-32); CHLORIDE LEVEL 91 MEQ/L (98-107); CREATININE FOR GFR 0.62 MG/DL (0.55-1.30); GLOMERULAR FILTRATION RATE > 60.0 (>45); GLUCOSE, FASTING 296 MG/DL (70-100); NT-PRO BNP 95 PG/ML (<125); POTASSIUM SERUM 3.1 MEQ/L (3.5-5.1); SODIUM LEVEL 138 MEQ/L (136-145)
== END ==
PROVIDERS: ATTEND Physician Assistant
DX: I50.32 Chronic diastolic (congestive) heart failure (principal)

== ENCOUNTER 2020-10-24 09:35 | Emergency (ER) | payer MEDICARE, MEDICAID ==
[~2020-10-24] VITALS: Ht 154.9 cm; Wt 109.1 kg
--- NOTE | 2020-10-24 10:18 | REP ---
INDICATION: DYSPNEA/COUGH COMPARISON: 09/02/2020 TECHNIQUE: Portable AP view of the chest FINDINGS: The mediastinum and cardiac silhouette are stable and within normal limits for portable technique. The lung cherry demonstrate few scattered chronic linear changes without acute consolidation, effusion, or pneumothorax. Skeletal structures are intact. IMPRESSION: No acute cardiopulmonary process appreciated. <Electronically signed by Michael Vasques > 10/24/20 [id number]
[2020-10-24 10:21] LABS: BASO # 0.1 10^3/uL (0.0-0.2); BASO % 0.7 % (0.0-1.0); EOS # 0.2 10^3/uL (0.0-0.5); EOS % 1.8 % (0.0-3.0); HEMATOCRIT 37.9 % (36.0-47.0); HEMOGLOBIN 10.6 g/dl (12.0-15.5); LYMPH # 1.8 10^3/uL (1.5-5.0); LYMPH % 14.8 % (24.0-44.0); MEAN CORPUSCULAR HEMOGLOBIN 24.3 pg (27.0-33.0); MEAN CORPUSCULAR VOLUME 86.7 fl (80.0-96.0); MONO # 0.9 10^3/uL (0.0-0.8); MONO % 6.9 % (2.0-8.0); NEUTROPHILS # 9.2 10^3/uL (1.5-8.5); NEUTROPHILS % 74.7 % (36.0-66.0); PLATELET COUNT, AUTOMATED 399 10^3/uL (150-450); RED BLOOD COUNT 4.37 10^6/uL (4.00-5.40); WHITE BLOOD COUNT 12.3 10^3/uL (4.0-10.0)
[2020-10-24] MEDS ORDERED: ACETAMINOPHEN 500 MG TAB PO ONE (10:35)
[2020-10-24] MEDS ORDERED: HUMA100I5 SC (10:39)
[2020-10-24] MEDS ORDERED: LANTINJ4 SC (10:39)
[2020-10-24] MEDS ORDERED: OZEM2INJ SC (10:39)
[2020-10-24 11:05] LABS: ALBUMIN 3.3 GM/DL (3.2-5.2); ALT/SGPT 42 U/L (12-78); BILIRUBIN,DIRECT 0.1 MG/DL (0.0-0.2); BILIRUBIN,TOTAL 0.5 MG/DL (0.2-1.0); BLOOD UREA NITROGEN 12 MG/DL (7-18); CALCIUM LEVEL 8.6 MG/DL (8.8-10.2); CARBON DIOXIDE LEVEL 39 MEQ/L (21-32); CHLORIDE LEVEL 97 MEQ/L (98-107); CREATININE FOR GFR 0.53 MG/DL (0.55-1.30); GLOMERULAR FILTRATION RATE > 60.0 (>45); GLUCOSE, FASTING 211 MG/DL (70-100); NT-PRO BNP 84 PG/ML (<125); POTASSIUM SERUM 3.9 MEQ/L (3.5-5.1); SODIUM LEVEL 139 MEQ/L (136-145); TOTAL PROTEIN 6.9 GM/DL (6.4-8.2)
[2020-10-24 11:29] LABS: RSV AMPLIFICATION NEGATIVE (NEGATIVE)
[2020-10-24] MEDS ORDERED: PRED10TA2 PO (13:27)
[2020-10-24 14:15] VITALS: BP 137/78
--- NOTE | 2020-10-24 20:51 | ECGEPIP ---
[facility] - ED Test Date: 2020-10-24 Pat Name: MIGUEL NAQVI Department: Room: - Gender: Female Cardiology Physician Assistant: VC : 1955 Requested By: Vidya Villavicencio Order Number: [id number] Reading MD: Vidya Villavicencio Measurements Intervals [place] Rate: 103 P: 71 HI: 142 QRS: 55 QRSD: 90 T: 71 QT: 356 QTc: 466 Interpretive Statements Sinus tachycardia Low voltage QRS Cannot rule out Anterior infarct , age undetermined NSTTW abnormalities similar 09/02/20 Electronically Signed on 10-24-2020 20:51:50 EDT by Vidya Villavicencio
== END 2020-10-24 14:20 | disposition home or self-care (01) ==
LOC: M ED 09:35
DX: J44.1 Chronic obstructive pulmonary disease with (acute) exacerbation (principal); R94.31 Abnormal electrocardiogram [ECG] [EKG]; I50.9 Heart failure, unspecified; I25.10 Atherosclerotic heart disease of native coronary artery without angina pectoris; I25.2 Old myocardial infarction; E11.9 Type 2 diabetes mellitus without complications; E78.5 Hyperlipidemia, unspecified; E03.9 Hypothyroidism, unspecified; Z79.4 Long term (current) use of insulin; Z79.82 Long term (current) use of aspirin; Z79.890 Hormone replacement therapy; Z79.899 Other long term (current) drug therapy; Z91.048 Other nonmedicinal substance allergy status; Z88.8 Allergy status to other drugs, medicaments and biological substances; Z87.891 Personal history of nicotine dependence; Z95.1 Presence of aortocoronary bypass graft; Z90.49 Acquired absence of other specified parts of digestive tract

== ENCOUNTER 2020-11-12 07:11 | Inpatient (IN) | payer MEDICARE, MEDICAID ==
[2020-11-12] VITALS (7 sets, daily range): BP systolic 127–137; BP diastolic 59–65; O2SAT 95–96
[~2020-11-12] VITALS: Ht 165.1 cm; Wt 111.0 kg
[~2020-11-12 07:11] MED LIST changes: +ERGO500029 PO; +OMEP40CA4 PO; -OMEP40CA97 PO; +OZEM2INJ SC; -VITA50005 PO
[2020-11-12] MEDS ORDERED: IPRATROPIUM 0.5MG/ALBUTEROL 2.5MG INH SOL UD 3ML (DUONEB) NEB ONE (07:30)
[2020-11-12] MEDS ORDERED: ALBUTEROL SULFATE 2.5 MG/0.5 ML INH NEB SOLN INH ONE (07:30)
[2020-11-12] MEDS ORDERED: methylPREDNISolone 125MG 2ML VIAL IV ONE (07:30)
[2020-11-12 07:48] LABS: BASO # 0.1 10^3/uL (0.0-0.2); BASO % 0.4 % (0.0-1.0); EOS # 0.1 10^3/uL (0.0-0.5); EOS % 0.8 % (0.0-3.0); HEMATOCRIT 40.2 % (36.0-47.0); HEMOGLOBIN 11.6 g/dl (12.0-15.5); LYMPH # 2.2 10^3/uL (1.5-5.0); LYMPH % 14.4 % (24.0-44.0); MEAN CORPUSCULAR HGB CONC 28.9 g/dl (32.0-36.5); MEAN CORPUSCULAR VOLUME 86.6 fl (80.0-96.0); MONO # 0.9 10^3/uL (0.0-0.8); MONO % 5.5 % (2.0-8.0); NEUTROPHILS # 12.1 10^3/uL (1.5-8.5); NEUTROPHILS % 77.9 % (36.0-66.0); PLATELET COUNT, AUTOMATED 453 10^3/uL (150-450); RED BLOOD COUNT 4.64 10^6/uL (4.00-5.40); WHITE BLOOD COUNT 15.6 10^3/uL (4.0-10.0)
[2020-11-12 08:23] LABS: ALBUMIN 3.4 GM/DL (3.2-5.2); BILIRUBIN,DIRECT 0.2 MG/DL (0.0-0.2); BILIRUBIN,TOTAL 0.6 MG/DL (0.2-1.0); THYROID STIMULATING HORMONE 2.15 uIU/ML (0.358-3.740); THYROXINE (T4) 9.1 UG/DL (4.5-12.0)
--- NOTE | 2020-11-12 08:33 | REP ---
INDICATION: DYSPNEA/COUGH. COMPARISON: 10/24/2020. TECHNIQUE: Single portable AP view of the chest was performed. FINDINGS: There is no acute infiltrate or pulmonary edema. There are mild stable fibro atelectatic changes. The heart is not significantly enlarged. The mediastinal silhouette is unremarkable. The visualized osseous structures are intact. IMPRESSION: No acute pulmonary disease. <Electronically signed by Brigido Barcenas > 11/12/20 [id number]
[2020-11-12] MEDS ORDERED: ISOVUE-370 76% 100ML VIAL As Ordered ONE (08:37)
[2020-11-12] MEDS: ENOXAPARIN 40MG/0.4ML SYRINGE (J1650 PER 10MG) SC SCH (09:00)
[2020-11-12] MEDS ORDERED: AZITHROMYCIN 250MG TABLET PO SCH (09:00)
[2020-11-12] MEDS: DOCUSATE SODIUM 100MG CAPSULE PO SCH ×2 (09:00→20:10)
--- NOTE | 2020-11-12 09:42 | REP ---
INDICATION: sob ro pe. The patient gives a history of carcinoma of the cervix. COMPARISON: Comparison study is from July 09, 2020.. Comparison is also made with multiple prior CT studies of the abdomen and pelvis dating back to 2018. TECHNIQUE: Contrast dose: 75 ML of Isovue [address] technique: Helical scanning is acquired and overlapping 1.5 mm and contiguous 3 mm axial images are reformatted. In addition, maximum intensity projection and multiplanar re-formation images are generated in sagittal and coronal imaging projections. FINDINGS: There is good opacification in the pulmonary arterial tree. There is no evidence of vessel cut off or filling defect to suggest pulmonary embolus. Homogeneous opacity is seen in the thoracic aorta. There is no evidence of aneurysm or dissection. No hilar or mediastinal mass or adenopathy is observed. No pleural or pericardial effusion is seen. There is vascular calcification in the distribution of the left coronary artery as before. The left main pulmonary artery somewhat dilated but this is unchanged. Lung window settings demonstrate platelike atelectatic changes right upper lobe and lingula at the left base. There are 2 granulomatous calcified nodules in the left lower lobe. No significant pulmonary nodule or mass lesion is seen. No definite infiltrate. In the upper abdomen, the adrenal glands show bilateral hyperplasia with some low-density enlargement of the right adrenal gland as a chronic finding unchanged. The gallbladder surgically absent. There is moderate to marked fatty infiltration of the liver with areas of fat sparing in the right lobe. There is stable low-density areas in the left lobe and caudate lobe which appear to be air geographic areas of fatty infiltration. Visualized upper abdominal structures are otherwise unremarkable. No bony abnormality is seen. IMPRESSION: No CT evidence of pulmonary embolus. Moderate diffuse fatty infiltration of the liver again noted. Some vascular calcifications seen. Granulomatous calcifications left lower lobe. Platelike atelectasis right upper lobe and lingula. <Electronically signed by Tristan Higgins > 11/12/20 [id number]
[2020-11-12] MEDS ORDERED: MAALOX 30 ML SUSP *UDC PO PRN (10:15)
[2020-11-12] MEDS ORDERED: MOM 30ML SUSPENSION UDC PO PRN (10:15)
[2020-11-12] MEDS ORDERED: ACETAMINOPHEN TAB 650MG DOSE (2X325MG) PO PRN (10:15)
[2020-11-12] MEDS ORDERED: DICL1GEL3 TOP (10:25)
[2020-11-12] MEDS ORDERED: HYDR-643 PO (10:25)
[2020-11-12] MEDS ORDERED: HYDR-3713 PO (10:25)
[2020-11-12] MEDS ORDERED: OZEM2INJ2 SC (10:25)
[2020-11-12] MEDS ORDERED: AZIT-12 PO (10:25)
[2020-11-12] MEDS ORDERED: GLUCAGON INJ 1MG VIAL SC PRN (12:15)
[2020-11-12] MEDS ORDERED: DEXTROSE 50% 50 ML SYRINGE IV PRN (12:15)
[2020-11-12] MEDS ORDERED: ALBUTEROL 90 MCG/ACT 8GM HFA INHALER INH PRN (12:15)
[2020-11-12] MEDS ORDERED: LEVALBUTEROL 1.25 MG/0.5 ML CONCENTRATE NEB NEB PRN (12:15)
[2020-11-12] MEDS ORDERED: GLUCOSE 4GM CHEW TABLET PO PRN (12:15)
[2020-11-12] MEDS ORDERED: IPRATROPIUM 0.5MG/ALBUTEROL 2.5MG INH SOL UD 3ML (DUONEB) INH PRN (12:15)
--- NOTE | 2020-11-12 12:24 | REP ---
INDICATION: Transaminitis. COMPARISON: CT 09/03/2020. TECHNIQUE: Real-time sonographic evaluation of right upper quadrant performed. FINDINGS: Patient has had a prior cholecystectomy.. There is no intrahepatic or extrahepatic biliary dilatation, common bile duct measures 7 mm in maximum diameter. There is diffuse heterogeneous increased echotexture of the liver compatible with diffuse fibrofatty infiltration. No gross mass is seen. Pancreas is not well seen due to overlying bowel gas and body habitus. The right kidney demonstrates no hydronephrosis, with a normal size of 10.8 cm in length. No free fluid is seen. IMPRESSION: Prior cholecystectomy. Diffuse fibrofatty infiltration of the liver. <Electronically signed by Brigido Barcenas > 11/12/20 [id number]
[2020-11-12] MEDS: SIMETHICONE 80MG CHEW TAB PO SCH ×2 (12:30→17:11)
[2020-11-12 12:57] LABS: MAGNESIUM LEVEL 1.8 MG/DL (1.8-2.4)
[2020-11-12] MEDS ORDERED: POTASSIUM CHLORIDE 10 MEQ SR TABLET PO ONE ×2 (13:00→15:00)
[2020-11-12] MEDS: OMEPRAZOLE 20 MG CAP PO SCH ×2 (13:37→20:10)
[2020-11-12] MEDS: MAGNESIUM OXIDE 400MG TAB (MAG-OX) PO SCH ×2 (13:37→20:10)
[2020-11-12] MEDS: CALCIUM CARBONATE 500 MG CHEW U/D PO SCH ×3 (13:37→21:00)
[2020-11-12] MEDS: BISOPROLOL FUM 2.5 MG PER 1/2TAB PO SCH (13:38)
[2020-11-12] MEDS: POTASSIUM CHLORIDE 10 MEQ SR TABLET PO SCH ×3 (13:38→20:10)
[2020-11-12] MEDS: predniSONE 10 MG TAB PO SCH (13:38)
[2020-11-12] MEDS: hydrOXYzine 10 MG TAB PO SCH (13:38)
[2020-11-12] MEDS: FLUoxetine 10 MG CAP PO SCH (13:38)
[2020-11-12] MEDS: ASPIRIN 81MG ENTERIC TABLET PO SCH (13:38)
[2020-11-12] MEDS: VITAMIN D 1,000 INTERNATIONAL UNITS TABLET PO SCH (13:39)
[2020-11-12 14:45] LABS: HEPATITIS A ANTIBODY IGM NEGATIVE (NEGATIVE); HEPATITIS B CORE ANTIBODY IGM NEGATIVE (NEGATIVE); HEPATITIS B SURFACE ANTIGEN NEGATIVE (NEGATIVE); HEPATITIS C VIRUS ABY INDEX < 0.0 INDEX (<0.8)
[2020-11-12] MEDS: IPRATROPIUM 0.5MG/ALBUTEROL 2.5MG INH SOL UD 3ML (DUONEB) INH SCH ×2 (15:22→19:33)
[2020-11-12] MEDS: GABAPENTIN 300 MG CAP PO SCH ×2 (15:29→20:09)
--- NOTE | 2020-11-12 15:29 | ECGEPIP ---
[facility] - ED Test Date: 2020-11-12 Pat Name: MIGUEL NAQVI Department: Room: - Gender: Female Navigation Officer: hc : 1955 Requested By: Dameon Burch Order Number: [id number] Reading MD: Kyle Boyce Measurements Intervals [place] Rate: 108 P: 60 HI: 154 QRS: 21 QRSD: 92 T: 72 QT: 352 QTc: 471 Interpretive Statements Sinus tachycardia Low QRS complex voltage Delayed anterior R wave progression Nonspecific ST-T wave abnormalities Similar to tracing done 10-24-20 Electronically Signed on 11-12-2020 15:28:46 EDT by Kyle Boyce
--- NOTE | 2020-11-12 16:04 | HPEPDOC ---
[facility] Medical History & Physical Date of Admission Nov 12, 2020 Date of Service: Nov 12, 2020 History and Physical CHIEF COMPLAINT: Shortness of breath HISTORY OF PRESENT ILLNESS: 64 F PMHx advanced COPD on 3L o2, CHFpEF, SUYAPA using BiPAP, DM, Cor pulmonale, CAD, MDD, Hypothyroid who is a [place] who was brought to the emergency department because of palpitations this morning. Patient endorses that she felt palpitations and noticed her pulse oximeter was reading a heart rate in the 180s persistently. Symptoms continues to resolve heart rate returned to normal but at times she was in the [facility] if symptoms have not reoccurred since. She endorses that her breathing is close to her baseline and she does not feel like she is short of breath or wheezing. She denies any chest pains any point. She denies fevers or chills. Emergency department physician asked the hospitalist service to admit the patient for observation on telemetry. CT angiography done in the ED was negative for pulmonary embolism. PAST MEDICAL HISTORY: Adanced COPD on 3L o2 and chronic steroids CHFpEF SUYAPA using BiPAP DM HTN Cor Pulmonale CAD HLD MDD Hypothyroidism Chronic back pain Bipolar GERD PAST SURGICAL HISTORY: Appendectomy. Tonsillectomy. Breast surgery. Exploratory laparotomy. Cholecystectomy. SOCIAL HISTORY: Denies recent alcohol use. Denies active tobacco use. 45 year smoking history Denies illicit drug use Healthcare proxy is Ina her daughter, phone [phone] FAMILY HISTORY: Reviewed and none contributory Mother lung cancer, CAD Father CAD ALLERGIES: Please see below. REVIEW OF SYSTEMS: 10 point review of systems complete all negative otherwise stated in HPI HOME MEDICATIONS: Please see below. PHYSICAL EXAMINATION: Constitutional: Awake and alert, in no apparent distress ENT: Sclera are clear Respiratory: Lungs diminished breath sounds bilaterally, fair air entry. No crackles. No apparent respiratory distress. No use of accessory muscles. On 3L o2 by NC which is her baseline. Cardiovascular: RRR S1 and S2 are normal, no murmur. Gastrointestinal: Abdomen is soft, obese, non distended, non tender, BS present. Musculoskeletal: No lower extremity edema Mental Status: A&O x3, normal affect Skin: No visible rashes LABORATORY DATA: See below. IMAGING: CXR 04/27/2020 impression: No active cardiopulmonary disease. No infiltrate visible. MICROBIOLOGY: Please see below. ASSESSMENT/PLAN 64-year-old female with chronic COPD admitted for observation on telemetry due to palpitations and a reported heart rate in the 180s. # Palpitations: Unclear etiology. Admit observation on telemetry. May benefit for discharge with Holter monitor. Has not had any significant episodes of tachycardia while here. No further palpitations so far. # Lactic acidosis: Appears to be chronically elevated and regularly fluctuates and could be related to her advanced COPD. Trend lactate. slow IVFs. Start Ceftx and doxy. Fu BCx. # Leukocytosis: Mild elevation. Patient on chronic steroids. Trend tomorrow. Follow-up pro-calcitonin which is pending. # Chronic COPD: On chronic steroids and oxygen. Not in exacerbation. Continue home medications. # DM: ISS. Accuchecks, hypoglycemic protocol. # SUYAPA: can use home BiPAP machine # Cor pulmonate with pulmonary HTN: continue toresmide. # HTN: continue home meds. Monitor and titrate. # Hx CAD: ASA, statin # Hx CHFpEF: Euvolemic on exam. Continue medications. # Chronic back pain: continue home gabapentin # HLD: continue home statin # Depression: Continue home medication # Hypothyroidism: continue home Synthroid dose. # DVT prophylaxis: lovenox A Youf Hospitalist Vital Signs Vital Signs Date Time Temp Pulse Resp B/P (MAP) Pulse Ox O2 Delivery O2 Flow Rate FiO2 11/12/20 15:23 101 21 11/12/20 13:50 NIPPV (BIPAP/CPAP) 11/12/20 13:38 127/63 11/12/20 12:00 96.5 96 3.0 Laboratory Data Labs 24H Laboratory Tests 2 11/12/20 07:29: POC Glucose (Misc Panel) 243H, POC Sodium (Misc Panel) 142, POC Potassium (Misc Panel) 3.1L, POC Chloride (Misc Panel) 91L, POC Total CO2 (Misc Panel) 33.0H, POC Blood Urea Nitrogen (Misc Panel 19, POC Ionized Calcium (Misc Panel) 4.6, POC Creatinine (Misc Panel) 0.6, POC Hematocrit (Misc Panel) 39.0 11/12/20 07:31: Immature Granulocyte % (Auto) 1.0, Neutrophils (%) (Auto) 77.9H, Lymphocytes (%) (Auto) 14.4L, Monocytes (%) (Auto) 5.5, Eosinophils (%) (Auto) 0.8, Basophils (%) (Auto) 0.4, Neutrophils # (Auto) 12.1H, Lymphocytes # (Auto) 2.2, Monocytes # (Auto) 0.9H, Eosinophils # (Auto) 0.1, Basophils # (Auto) 0.1, Nucleated Red Blood Cells % (auto) 0.0, Lactic Acid Level 3.0*H, Total Bilirubin 0.6, Direct Bilirubin 0.2, Aspartate Amino Transf (AST/SGOT) 246H, Alanine Aminotransferase (ALT/SGPT) 220H, Alkaline Phosphatase 279H, VU-Shx-P-Type Natriuretic Peptide 116, Total Protein 7.0, Albumin 3.4, Albumin/Globulin Ratio 0.9L, Thyroid Stimulating Hormone (TSH) 2.150, Thyroxine (T4) 9.1 11/12/20 07:32: POC Troponin I (Misc) 0.00 11/12/20 07:49: POC Total CO2 (Misc Panel) 38.0H, POC pH (Misc Panel) 7.417, POC Base Excess (Misc Panel) 12.0H, POC Saturated Percent O2 (Misc) 99H, POC pO2 (Misc Panel) 138.0H, POC pCO2 (Misc Panel) 56.7H, POC HCO3 (Misc Panel) 36.5H 11/12/20 12:08: Lactic Acid Followup at 4 Hours 4.1*H, Magnesium Level 1.8, Hepatitis A IgM Anti body NEGATIVE, Hepatitis B Surface Antigen NEGATIVE, Hepatitis B Core IgM Antibody NEGATIVE, Hepatitis C Antibody Index < 0.0 11/12/20 12:32: Bedside Glucose (Misc Panel) 275H CBC/BMP Laboratory Tests 11/12/20 07:31 Microbiology Microbiology 11/12/20 Blood Culture, Received Pending 11/12/20 Respiratory Virus Panel (PCR) ([facility]) - Final, Complete 11/12/20 Blood Culture, Received Pending Home Medications Scheduled Alprazolam (Alprazolam) 0.5 Mg Tablet, 0.5 MG PO BID Aspirin (Aspirin EC) 81 Mg Tablet.dr, 81 MG PO DAILY Atorvastatin Calcium (Lipitor) 80 Mg Tab, 80 MG PO QHS Azithromycin (Azithromycin) 250 Mg Tablet, 250 MG PO DAILY Bisoprolol Fumarate (Bisoprolol Fumarate) 5 Mg Tab, 2.5 MG PO DAILY Calcium Carbonate (Tums) 200 Mg Tab.chew, 1,000 MG PO QID Cholecalciferol (Vitamin D3) (Vitamin D3) 1,000 Unit Tablet, 5,000 UNITS PO DA ANNETTE TAKES AT LUNCH Fluoxetine Hcl (Fluoxetine HCl) 10 Mg Capsule, 10 MG PO DAILY Gabapentin (Gabapentin) 600 Mg Tablet, 600 MG PO TID Hydrocodone/Acetaminophen (Hydrocodone-Acetamin 5-325 mg) 1 Each Tablet, 1 TAB PO DAILY Hydroxyzine HCl (Hydroxyzine HCl) 10 Mg Tablet, 10 MG PO DAILY TAKES AT NOON Insulin Glargine,Hum.rec.anlog (Lantus Solostar) 100 Unit/1 Ml Insuln.pen, 60 UNITS SC QHS Insulin Lispro (Humalog Kwikpen U-100) 100 Unit/1 Ml Insuln.pen, 26 UNITS SC QPM @ 1700 Insulin Lispro (Humalog Kwikpen U-100) 100 Unit/1 Ml Insuln.pen, 25 UNITS SC DAILY @ 1200 Insulin Lispro (Humalog Kwikpen U-100) 100 Unit/1 Ml Insuln.pen, 10 UNITS SC DAILY @ 0800 Ipratropium/Albuterol Sulfate (Iprat-Albut 0.5-3(2.5) mg/3 ml) 3 Ml Ampul.neb, 1 VIAL INH QID Levothyroxine Sodium (Levoxyl) 25 Mcg Tab, 25 MCG PO QAM Linagliptin (Tradjenta) 5 Mg Tablet, 5 MG PO DAILY Magnesium Oxide (Magnesium Oxide) 400 Mg Tablet, 400 MG PO BID Menthol/Zinc Oxide (Gold [place]avares Medicated Body Powdr) 113 Gm Powder, 1 APPLIC TOP BID APPLY TO SKIN FOLDS Metformin HCl (Metformin HCl) 500 Mg Tablet, 500 MG PO BID Multivitamins (Thera M Plus Tablet) 1 Each Tablet, 1 TAB PO DAILY Omeprazole (Omeprazole) 20 Mg Capsule.dr, 20 MG PO BID Potassium Chloride (Potassium Chloride) 20 Meq Tab.er.prt, 20 MEQ PO QID @ 0900, 1300, 1700, 2000 Prednisone (Prednisone) 10 Mg Tablet, 10 MG PO DAILY Salmeterol/Fluticasone (Advair 250-50 Diskus) 1 Each Blst.w.dev, 1 PUFF INH BID Semaglutide (Ozempic) 1 Mg/0.75 Ml Pen.injctr, 1 MG SC QWEEK SUNDAYS AT 1800 Simethicone (Simethicone) 80 Mg Tab.chew, 80 MG PO WM Torsemide (Torsemide) 100 Mg Tablet, 150 MG PO DAILY Umeclidinium [place] (Incruse Ellipta) 62.5 Mcg Blst.w.dev, 1 PUFF INH DAILY Scheduled PRN Acetaminophen (Acetaminophen 8 Hour) 650 Mg Tablet.er, 650 MG PO BID PRN for PAIN Albuterol Sulfate (Ventolin Hfa) 108 Mcg/Act Aer, 2 PUFFS INH Q4H PRN for SHORTNESS OF BREATH Alprazolam (Alprazolam) 0.5 Mg Tablet, 0.5 MG PO DAILY PRN for ANXIETY Diclofenac Sodium (Diclofenac Sodium) 1% 100GM Gel..gram., 4 GM TOP TID PRN for PAIN LEVEL 1-5 APPLY TO AREAS OF PAIN, PT SELF ADMINISTERS Hydrocodone/Acetaminophen (Hydrocodone-Acetamin 5-325 mg) 1 Each Tablet, 1 TAB PO QHS PRN for PAIN Ipratropium/Albuterol Sulfate (Iprat-Albut 0.5-3(2.5) mg/3 ml) 3 Ml Ampul.neb, 1 VIAL INH Q6H PRN for SHORTNESS OF BREATH Levalbuterol HCl (Levalbuterol HCl) 1.25 Mg/3 Ml Vial.neb, 1 VIAL NEB Q4H PRN for SHORTNESS OF BREATH Lidocaine HCl (Aspercreme) 4% Cream..g., 1 APLCT TOP DAILY PRN for PAIN APPLY TO PAINFUL AREAS Milk Of Magnesia (Milk of Magnesia) 2,400 Mg/10 Ml Oral.susp, 10 ML PO DAILY PRN for CONSTIPATION Nystatin (Nystatin Powder) 15 Gm Powder, 1 DOSE TOP BID PRN for ITCH/RASH USES UNDER BREASTS Allergies Coded Allergies: dapagliflozin (Verified Allergy, Mild, Sores, 05/27/20) Cat Dander (Verified Allergy, Unknown, 05/27/20) Dust (Verified Allergy, Unknown, 05/27/20) A-FIB/CHADSVASC A-FIB History Current/History of A-Fib/PAF?: No JUAN JOSÉ WHITESIDE MD Nov 12, 2020 16:03
[2020-11-12] MEDS: HumaLOG INSULIN (NovoLOG) PER UNIT SC SCH ×2 (17:10→20:11)
[2020-11-12] MEDS: ALPRAZolam 0.5 MG TAB PO PRN (17:27)
[2020-11-12] MEDS: ADVAIR HFA 115/21MCG INHALER INH SCH (19:33)
[2020-11-12] MEDS ORDERED: NS 1,000 ML IV SCH (19:55)
[2020-11-12] MEDS: ATORVASTATIN 20 MG TAB PO SCH (20:08)
[2020-11-12] MEDS: NORCO, ANEXSIA 5/325MG TABLET (HYDROcodone/ACETAMINOPHEN) PO PRN (20:09)
[2020-11-12] MEDS: ALPRAZolam 0.5 MG TAB PO SCH (20:09)
[2020-11-12] MEDS: LEVEMIR (INSULIN DETEMIR) 1 UNITS/0.01ML SC SCH (20:11)
[2020-11-12] MEDS: cefTRIAXone SOD 1 GM in D5W MINI-BAG PLUS 50 ML IV SCH (21:10)
[2020-11-12] MEDS: DOXYCYCLINE HYCLATE 100 MG in D5W MINI-BAG PLUS 100 ML IV SCH (23:10)
[2020-11-13] VITALS (10 sets, daily range): BP systolic 107–120; BP diastolic 56–76; O2SAT 93–98
[2020-11-13] MEDS: CALCIUM CARBONATE 500 MG CHEW U/D PO SCH ×4 (05:38→20:07)
[2020-11-13] MEDS: LEVOTHYROXINE 25MCG TABLET (0.025MG) PO SCH (05:38)
[2020-11-13 05:39] LABS: ALBUMIN 3.2 GM/DL (3.2-5.2); ALT/SGPT 127 U/L (12-78); BILIRUBIN,TOTAL 0.3 MG/DL (0.2-1.0); BLOOD UREA NITROGEN 20 MG/DL (7-18); CALCIUM LEVEL 8.5 MG/DL (8.8-10.2); CARBON DIOXIDE LEVEL 40 MEQ/L (21-32); CHLORIDE LEVEL 97 MEQ/L (98-107); CREATININE FOR GFR 0.77 MG/DL (0.55-1.30); GLOMERULAR FILTRATION RATE > 60.0 (>45); GLUCOSE, FASTING 203 MG/DL (70-100); POTASSIUM SERUM 3.7 MEQ/L (3.5-5.1); SODIUM LEVEL 140 MEQ/L (136-145); TOTAL PROTEIN 6.4 GM/DL (6.4-8.2)
[2020-11-13] MEDS: ALPRAZolam 0.5 MG TAB PO PRN (05:41)
[2020-11-13] MEDS: ADVAIR HFA 115/21MCG INHALER INH SCH ×2 (07:45→19:26)
[2020-11-13] MEDS: IPRATROPIUM 0.5MG/ALBUTEROL 2.5MG INH SOL UD 3ML (DUONEB) INH SCH ×4 (07:45→19:26)
[2020-11-13] MEDS ORDERED: GI COCKTAIL 50ML BTL(HYOSCYAMINE/MAALOX/LIDOCAINE VISCOUS)(1:3:1) PO PRN (07:55)
[2020-11-13] MEDS ORDERED: SUCRALFATE SUSP 1GM/10ML UD PO ONE (07:55)
[2020-11-13] MEDS ORDERED: PANTOPRAZOLE 40MG VIAL (C9113 PER 1) IV ONE (07:55)
[2020-11-13] MEDS: HumaLOG INSULIN (NovoLOG) PER UNIT SC SCH ×4 (08:29→20:58)
[2020-11-13] MEDS: OMEPRAZOLE 20 MG CAP PO SCH ×2 (08:30→20:08)
[2020-11-13] MEDS: ASPIRIN 81MG ENTERIC TABLET PO SCH (08:30)
[2020-11-13] MEDS: ENOXAPARIN 40MG/0.4ML SYRINGE (J1650 PER 10MG) SC SCH ×2 (08:30→08:59)
[2020-11-13] MEDS: BISOPROLOL FUM 2.5 MG PER 1/2TAB PO SCH (08:30)
[2020-11-13] MEDS: SIMETHICONE 80MG CHEW TAB PO SCH ×3 (08:30→17:54)
[2020-11-13] MEDS: FLUoxetine 10 MG CAP PO SCH (08:30)
[2020-11-13] MEDS: VITAMIN D 1,000 INTERNATIONAL UNITS TABLET PO SCH (08:31)
[2020-11-13] MEDS: ALPRAZolam 0.5 MG TAB PO SCH ×2 (08:31→20:08)
[2020-11-13] MEDS: TORSEMIDE 100 MG TAB PO SCH (08:32)
[2020-11-13] MEDS: hydrOXYzine 10 MG TAB PO SCH (08:32)
[2020-11-13] MEDS: NORCO, ANEXSIA 5/325MG TABLET (HYDROcodone/ACETAMINOPHEN) PO SCH (08:32)
[2020-11-13] MEDS: GABAPENTIN 300 MG CAP PO SCH ×3 (08:33→20:08)
[2020-11-13] MEDS: MAGNESIUM OXIDE 400MG TAB (MAG-OX) PO SCH ×2 (08:33→20:08)
[2020-11-13] MEDS: POTASSIUM CHLORIDE 10 MEQ SR TABLET PO SCH ×4 (08:33→20:07)
[2020-11-13] MEDS: predniSONE 10 MG TAB PO SCH (08:34)
[2020-11-13] MEDS: DOCUSATE SODIUM 100MG CAPSULE PO SCH ×2 (08:34→20:10)
[2020-11-13] MEDS ORDERED: GI COCKTAIL 50ML BTL(HYOSCYAMINE/MAALOX/LIDOCAINE VISCOUS)(1:3:1) PO ONE (09:00)
[2020-11-13] MEDS: DOXYCYCLINE HYCLATE 100 MG in D5W MINI-BAG PLUS 100 ML IV SCH ×2 (10:16→22:15)
[2020-11-13] MEDS: SUCRALFATE SUSP 1GM/10ML UD PO SCH ×3 (12:02→20:07)
--- NOTE | 2020-11-13 14:14 | IPN ---
PROGRESS NOTE DATE: 11/12/2020 SUBJECTIVE: Patient is seen and examined at the bedside. Chart has been reviewed. She currently has no complaints of fever, chills, minimal chronic cough. Shortness of breath is improved. Patient complains of reflux symptoms. Given Protonix, gastrointestinal (GI) cocktail and Carafate. PHYSICAL EXAMINATION: Temperature 96.5, pulse 95, respiratory rate 17, blood pressure 109/61, 96% on 3 liters nasal cannula. GENERAL: Awake, alert, oriented to person, place and time, answering questions appropriately. No use of respiratory accessory muscles. HEENT: No tracheal deviation. No pallor, icterus or jaundice. No jugular venous distention (JVD) or thyromegaly. LUNGS: Diminished. No crackles. Currently on 3 liters nasal cannula. HEART: S1, S2. Sinus rhythm. ABDOMEN: Obese. Soft, nontender, nondistended. EXTREMITIES: No cyanosis, clubbing or pitting edema. LABORATORY DATA: Laboratory data, imaging studies, microbiology have been reviewed. ASSESSMENT: A 64-year-old with advanced chronic obstructive pulmonary disease (COPD) on 3 liters home oxygen, chronic hypoxic and hypercarbic respiratory failure, steroid dependent, oxygen dependent, congestive heart failure (CHF) with preserved ejection fraction, obstructive sleep apnea (SUYAPA) using bilevel positive airway pressure (BiPAP), diabetes, hypertension, cor pulmonale, coronary artery disease (CAD), hyperlipidemia, major depressive disorder, hypothyroidism, chronic back pain, bipolar, reflux, admitted due to worsening shortness of breath, found to be tachypneic and tachycardic, admitted for observation on telemetry. CT angiogram was negative for pulmonary embolism. Patient was admitted for evaluation of lactic acidosis and mild elevation of leukocytosis. IMPRESSION: 1. Palpitations. Currently on telemetry with no signs of atrial flutter or atrial fibrillation. Most likely multifocal atrial tachycardia due to advanced chronic obstructive pulmonary disease (COPD). 2. Lactic acidosis. May be related to her advanced chronic obstructive pulmonary disease (COPD). Given 1 liter of intravenous (IV) fluids. Currently on ceftriaxone and doxycycline, following up on sputum and blood cultures. Leukocytosis may be secondary to steroids. Awaiting procalcitonin levels. Currently on ceftriaxone and doxycycline. 3. Chronic obstructive pulmonary disease (COPD). On steroids and oxygen. Does not appear to be in decompensated state. Continued on home bronchodilators and inhaled steroids. 4. Type 2 diabetes. On insulin sliding scale, Accu-Chek, consistent carbohydrate diet and hypoglycemic protocol. 5. Obstructive sleep apnea (SUYAPA) on home continuous positive airway pressure (CPAP). Resumed in the hospital. 6. Cor pulmonale with hypertension. 7. Preserved diastolic congestive heart failure (CHF), compensated. Continue on torsemide. 8. Hypertension. Stable. Holding parameters on blood pressure medications. 9. History of coronary artery disease (CAD). Continue aspirin and statin. 10. Chronic back pain. On gabapentin. 11. Hyperlipidemia. On statins. 12. Depression. On home medications. 13. Hypothyroidism. On Synthroid. 13. Deep venous thrombosis (DVT) prophylaxis. On Lovenox. PLAN: Patient is medically stable to transfer to medical/surgical. Discharge home in the morning if stable overnight.
[2020-11-13] MEDS: ATORVASTATIN 20 MG TAB PO SCH (20:07)
[2020-11-13] MEDS: NORCO, ANEXSIA 5/325MG TABLET (HYDROcodone/ACETAMINOPHEN) PO PRN (20:12)
[2020-11-13] MEDS: LEVEMIR (INSULIN DETEMIR) 1 UNITS/0.01ML SC SCH (21:21)
[2020-11-13] MEDS: cefTRIAXone SOD 1 GM in D5W MINI-BAG PLUS 50 ML IV SCH (21:22)
[2020-11-14 06:00] VITALS: BP 136/87
[2020-11-14] MEDS: LEVOTHYROXINE 25MCG TABLET (0.025MG) PO SCH (06:12)
[2020-11-14] MEDS: ALPRAZolam 0.5 MG TAB PO PRN (06:18)
[2020-11-14] MEDS: HumaLOG INSULIN (NovoLOG) PER UNIT SC SCH ×4 (07:30→21:00)
[2020-11-14] MEDS: SUCRALFATE SUSP 1GM/10ML UD PO SCH ×4 (07:30→21:56)
[2020-11-14] MEDS: ADVAIR HFA 115/21MCG INHALER INH SCH ×2 (07:33→19:38)
[2020-11-14] MEDS: IPRATROPIUM 0.5MG/ALBUTEROL 2.5MG INH SOL UD 3ML (DUONEB) INH SCH ×4 (07:33→19:38)
[2020-11-14] MEDS: ENOXAPARIN 40MG/0.4ML SYRINGE (J1650 PER 10MG) SC SCH (09:00)
[2020-11-14 09:54] LABS: BASO # 0.1 10^3/uL (0.0-0.2); BASO % 0.5 % (0.0-1.0); EOS # 0.1 10^3/uL (0.0-0.5); EOS % 1.1 % (0.0-3.0); HEMATOCRIT 34.2 % (36.0-47.0); LYMPH # 2.4 10^3/uL (1.5-5.0); LYMPH % 19.1 % (24.0-44.0); MEAN CORPUSCULAR HEMOGLOBIN 24.9 pg (27.0-33.0); MEAN CORPUSCULAR HGB CONC 29.2 g/dl (32.0-36.5); MEAN CORPUSCULAR VOLUME 85.3 fl (80.0-96.0); MONO % 8.3 % (2.0-8.0); NEUTROPHILS # 8.8 10^3/uL (1.5-8.5); NEUTROPHILS % 70.4 % (36.0-66.0); PLATELET COUNT, AUTOMATED 377 10^3/uL (150-450); RED BLOOD COUNT 4.01 10^6/uL (4.00-5.40); WHITE BLOOD COUNT 12.5 10^3/uL (4.0-10.0)
[2020-11-14] MEDS: SIMETHICONE 80MG CHEW TAB PO SCH ×3 (10:05→17:13)
[2020-11-14] MEDS: BISOPROLOL FUM 2.5 MG PER 1/2TAB PO SCH (10:07)
[2020-11-14] MEDS: PANTOPRAZOLE 40MG TAB (PROTONIX) PO SCH (10:07)
[2020-11-14] MEDS: NORCO, ANEXSIA 5/325MG TABLET (HYDROcodone/ACETAMINOPHEN) PO SCH (10:07)
[2020-11-14] MEDS: predniSONE 10 MG TAB PO SCH (10:07)
[2020-11-14] MEDS: GABAPENTIN 300 MG CAP PO SCH ×3 (10:08→21:57)
[2020-11-14] MEDS: OMEPRAZOLE 20 MG CAP PO SCH ×2 (10:08→21:57)
[2020-11-14] MEDS: MAGNESIUM OXIDE 400MG TAB (MAG-OX) PO SCH ×2 (10:08→21:57)
[2020-11-14] MEDS: FLUoxetine 10 MG CAP PO SCH (10:08)
[2020-11-14] MEDS: TORSEMIDE 100 MG TAB PO SCH (10:08)
[2020-11-14] MEDS: ASPIRIN 81MG ENTERIC TABLET PO SCH (10:08)
[2020-11-14] MEDS: DOCUSATE SODIUM 100MG CAPSULE PO SCH ×2 (10:08→21:57)
[2020-11-14] MEDS: POTASSIUM CHLORIDE 10 MEQ SR TABLET PO SCH ×4 (10:09→21:58)
[2020-11-14] MEDS: CALCIUM CARBONATE 500 MG CHEW U/D PO SCH ×4 (10:09→21:57)
[2020-11-14] MEDS: hydrOXYzine 10 MG TAB PO SCH (10:09)
[2020-11-14] MEDS: DOXYCYCLINE HYCLATE 100 MG in D5W MINI-BAG PLUS 100 ML IV SCH (10:10)
[2020-11-14 10:27] LABS: BLOOD UREA NITROGEN 19 MG/DL (7-18); CALCIUM LEVEL 9.3 MG/DL (8.8-10.2); CARBON DIOXIDE LEVEL 39 MEQ/L (21-32); CHLORIDE LEVEL 98 MEQ/L (98-107); CK-MB VALUE MASS < 1.0 NG/ML (<3.6); CPK CREATINE PHOSPHOKINASE 33 U/L (26-192); CREATININE FOR GFR 0.54 MG/DL (0.55-1.30); GLOMERULAR FILTRATION RATE > 60.0 (>45); GLUCOSE, FASTING 148 MG/DL (70-100); MB/CK RELATIVE INDEX 3.03 (< OR =4); POTASSIUM SERUM 3.5 MEQ/L (3.5-5.1); SODIUM LEVEL 139 MEQ/L (136-145); TROPONIN I < 0.02 NG/ML (< 0.10)
[2020-11-14] MEDS: VITAMIN D 1,000 INTERNATIONAL UNITS TABLET PO SCH (10:28)
[2020-11-14 10:34] LABS: ERYTHROCYTE SEDIMENTATION RATE 43 mm/hr (0-30)
--- NOTE | 2020-11-14 10:58 | IPNPDOC ---
Date Seen The patient was seen on 11/14/20. Progress Note SUBJECTIVE: c/o b/l ue weakness unable to raise up w/o paresthesias. occasional neck pain but no h/a. sob and palpitations have resolved. no fever chills or cough. PHYSICAL EXAMINATION: vitals : see below GENERAL: Awake, alert, oriented to person, place and time, answering questions appropriately. No use of respiratory accessory muscles. no distress HEENT: No tracheal deviation. No pallor, icterus or jaundice. No jugular venous distention (JVD) or thyromegaly. LUNGS: Diminished. no wheezing or rales HEART: S1, S2. Sinus rhythm. ABDOMEN: Obese. Soft, nontender, nondistended. EXTREMITIES: No cyanosis, clubbing or pitting edema. NEURO: no facial asymmetry, tongue midline uvula midline speech fluent 5/5 strength b/l LE. UE 5/5/ strength no sensory disturbance. LABORATORY DATA: Laboratory data, imaging studies, microbiology have been reviewed. ASSESSMENT: A 64-year-old with advanced chronic obstructive pulmonary disease (COPD) on 3 liters home oxygen, chronic hypoxic and hypercarbic respiratory failure, steroid dependent, oxygen dependent, congestive heart failure (CHF) with preserved ejection fraction, obstructive sleep apnea (SUYAPA) using bilevel positive airway pressure (BiPAP), diabetes, hypertension, cor pulmonale, coronary artery disease (CAD), hyperlipidemia, major depressive disorder, hypothyroidism, chronic back pain, bipolar, reflux, admitted due to worsening shortness of breath, found to be tachypneic and tachycardic, admitted for observation on telemetry. CT angiogram was negative for pulmonary embolism. Patient was admitted for evaluation of lactic acidosis and mild elevation of leukocytosis. IMPRESSION: 1. Palpitations, resolved . telemetry with no signs of atrial flutter or atrial fibrillation. Most likely multifocal atrial tachycardia due to advanced chronic obstructive pulmonary disease (COPD). check ct chest r/o pe due to c/o sob, palpitations, tachypnea at home. 2. Lactic acidosis. May be related to her advanced chronic obstructive pulmonary disease (COPD). s/p 1 liter of intravenous (IV) fluids. on empiric day 2 ceftriaxone and doxy. cxr neg. check ct chest. dc if negative procalcitonin sputum culture 3. Chronic obstructive pulmonary disease (COPD). On steroids and oxygen. Does not appear to be in decompensated state. Continued on home bronchodilators and inhaled steroids. 4. Type 2 diabetes. On insulin sliding scale, Accu-Chek, consistent carbohydrate diet and hypoglycemic protocol. 5. Obstructive sleep apnea (SUYAPA) on home continuous positive airway pressure (CPAP). Resumed in the hospital. 6. Cor pulmonale with hypertension. 7. Preserved diastolic congestive heart failure (CHF), compensated. Continue on torsemide. 8. Hypertension. Stable. Holding parameters on blood pressure medications. 9. History of coronary artery disease (CAD). Continue aspirin and statin. 10. Chronic back pain. On gabapentin. 11. Hyperlipidemia. On statins. 12. Depression. On home medications. 13. Hypothyroidism. On Synthroid. 13. b/l ue weakness r/o cervical stenosis with mri cervical spine Deep venous thrombosis (DVT) prophylaxis. On Lovenox. VS, I&O, 24H, Fishbone Vital Signs/I&O Vital Signs Date Time Temp Pulse Resp B/P (MAP) Pulse Ox O2 Delivery O2 Flow Rate FiO2 11/14/20 10:07 18 11/14/20 10:07 88 136/87 11/14/20 06:00 96.9 98 NIPPV (BIPAP/CPAP) 11/13/20 20:12 3.0 I&O- Last 24 Hours up to 6 AM 11/14/20 06:00 Intake Total 2230 ml Output Total 2150 ml Balance 80 ml Laboratory Data 24H LABS Laboratory Tests 2 11/13/20 11:32: Bedside Glucose (Misc Panel) 203H 11/13/20 16:47: Bedside Glucose (Misc Panel) 290H 11/13/20 20:56: Bedside Glucose (Misc Panel) 216H 11/14/20 07:20: Bedside Glucose (Misc Panel) 124H 11/14/20 09:30: Immature Granulocyte % (Auto) 0.6, Neutrophils (%) (Auto) 70.4H, Lymphocytes (%) (Auto) 19.1L, Monocytes (%) (Auto) 8.3H, Eosinophils (%) (Auto) 1.1, Basophils (%) (Auto) 0.5, Neutrophils # (Auto) 8.8H, Lymphocytes # (Auto) 2.4, Monocytes # (Auto) 1.0H, Eosinophils # (Auto) 0.1, Basophils # (Auto) 0.1, Nucleated Red Blood Cells % (auto) 0.0, Erythrocyte Sedimentation Rate 43H, Anion Gap 2L, Glomerular Filtration Rate > 60.0, Lactic Acid Level 1.7, Calcium Level 9.3, Total Creatine Kinase 33, Creatine Kinase MB < 1.0, Creatine Kinase MB Relative Index 3.03, Troponin I < 0.02, C-Reactive Protein, Quantitative 0.80H CBC/BMP Laboratory Tests 11/14/20 09:30 Microbiology Microbiology 11/12/20 Blood Culture - Preliminary, Resulted No growth after 24 hours . All specim... 11/12/20 Respiratory Virus Panel (PCR) ([facility]) - Final, Complete 11/12/20 Blood Culture - Preliminary, Resulted No Growth after 48 hours. All Specime... DAMIR HURLEY MD Nov 14, 2020 10:57
[2020-11-14] MEDS ORDERED: ISOVUE-370 76% 100ML VIAL As Ordered ONE (11:13)
--- NOTE | 2020-11-14 12:20 | REP ---
INDICATION: tachy cardic tachypnea hypoxic r/o pe COMPARISON: Multiple the latest 11/12/2020 TECHNIQUE: CT angiography of the chest after the intravenous administration of 75 cc Isovue 370. Attention pulmonary arteries. FINDINGS: There is good but less than optimal opacification of the pulmonary arterial vasculature. This to such a degree that small emboli could be obscured. The mediastinum and pulmonary wesly are unchanged. There are no pleural or pericardial effusions. There is no change in the imaged upper abdomen or imaged osseous structures. Evaluation of the lung cherry shows no new abnormal nodules, masses, or opacities. Scattered asymmetric lower lobe densities persist with a wedge-shaped opacity in the inferior right upper lobe unchanged. IMPRESSION: 1. Less than optimal opacification of the pulmonary arteries. Small emboli cannot be ruled out. 2. No change in the lung cherry as described above. <Electronically signed by Biju Bhatti > 11/14/20 [id number]
--- NOTE | 2020-11-14 12:22 | REP ---
INDICATION: neck pain b/l hand weakness. COMPARISON: MRI today. TECHNIQUE: Four AP and lateral views cervical spine. FINDINGS: There is no compression fracture. There is slight retrolisthesis of C5 on C6 approximately 2 mm likely due to arthropathy. There is no prevertebral soft tissue swelling. There is moderate diffuse spurring. There is moderate disc space narrowing and subchondral sclerosis of C3-4 through C6-7 disc spaces. There is diffuse narrowing, sclerosis and spurring at the posterior facet joints. IMPRESSION: No compression fracture. Diffuse moderate degenerative changes. <Electronically signed by Brigido Barcenas > 11/14/20 [id number]
[2020-11-14] MEDS: ALPRAZolam 0.5 MG TAB PO SCH ×2 (13:04→21:58)
--- NOTE | 2020-11-14 13:09 | REPVR ---
PROCEDURE INFORMATION: Exam: MR Cervical Spine Without Contrast Exam date and time: 11/14/2020 10:58 AM Age: 64 years old Clinical indication: Neck pain; Patient HX: B/l ue weakness R/O cervical stenosis, pain TECHNIQUE: Imaging protocol: Multiplanar magnetic resonance images of the cervical spine without contrast. COMPARISON: CT ANGIO CHEST 11/12/2020 8:54 AM FINDINGS: Vertebrae: Straightening and slight reversal of lordosis may be positional or related to muscular spasm. Correlate clinically. There is grade 1 anterolisthesis of C7 on T1. Vertebral body heights are maintained. There are endplate degenerative marrow changes. There is diffuse disc desiccation. There is disc height loss C3-C4 through C7-T1. Craniocervical junction appears unremarkable. Normal position of cerebellar tonsils without evidence of Chiari I malformation. Spinal cord: Cervical spinal cord signal is normal without intrinsic cord lesions. C2-C3: There is small central disc protrusion. There is no significant cord compression. There is no neural foraminal or spinal stenosis. C3-C4: There is posterior osteophyte disc complex, which is greatest at level bilateral subarticular recesses and confluent with uncinate osteophytes. Mild thickening of ligamentum flavum. There is no significant cord compression and mild spinal stenosis. There are uncinate and facet osteophytes severe bilateral neural foraminal narrowing. C4-C5: There is posterior osteophyte disc complex, greater to the left in the subarticular recess. Mild thickening of ligamentum flavum. There is no significant cord compression and mild spinal stenosis. There are uncinate and facet osteophytes with right and severe left neural foraminal narrowing. C5-C6: There is posterior osteophyte disc complex, which is greatest at level bilateral subarticular recesses and confluent with uncinate osteophytes. Mild thickening of ligamentum flavum. There is no significant cord compression and moderate spinal stenosis. There are uncinate and facet osteophytes severe bilateral neural foraminal narrowing. C6-C7: There is posterior osteophyte disc complex. There is no significant cord compression or spinal stenosis. There are uncinate and facet osteophytes with no significant right and severe left neural foraminal narrowing. C7-T1: There is posterior osteophyte disc complex. There is no significant cord compression or spinal stenosis. There are uncinate and facet osteophytes with no significant right and moderate left neural foraminal narrowing. Soft tissues: Unremarkable. Vertebral arteries: Expected flow voids in the vertebral arteries. IMPRESSION: Degenerative changes as described causing mild or moderate spinal stenosis and multilevel neural foraminal narrowing which is greatest and severe bilateral C3-C4, left C4-C5, bilateral C5-C6, and left C6-C7. Electronically signed by: Monica Ayers On 11/14/2020 13:09:32 PM
[2020-11-14 14:00] VITALS: BP 118/73
[2020-11-14] MEDS: NYSTATIN 100,000 UNITS/GM TOPICAL PWD 15 GM TOP SCH (17:23)
[2020-11-14] MEDS: ATORVASTATIN 20 MG TAB PO SCH (21:57)
[2020-11-14] MEDS: LEVEMIR (INSULIN DETEMIR) 1 UNITS/0.01ML SC SCH (21:59)
[2020-11-14 22:00] VITALS: BP 115/72
[2020-11-15 06:00] VITALS: BP 121/71
[2020-11-15] MEDS: LEVOTHYROXINE 25MCG TABLET (0.025MG) PO SCH (06:10)
[2020-11-15 06:12] LABS: BASO # 0.1 10^3/uL (0.0-0.2); BASO % 0.5 % (0.0-1.0); EOS # 0.2 10^3/uL (0.0-0.5); EOS % 1.2 % (0.0-3.0); HEMATOCRIT 35.6 % (36.0-47.0); HEMOGLOBIN 10.5 g/dl (12.0-15.5); LYMPH # 2.1 10^3/uL (1.5-5.0); LYMPH % 17.2 % (24.0-44.0); MEAN CORPUSCULAR HEMOGLOBIN 24.8 pg (27.0-33.0); MEAN CORPUSCULAR HGB CONC 29.5 g/dl (32.0-36.5); MEAN CORPUSCULAR VOLUME 84.2 fl (80.0-96.0); MONO % 8.4 % (2.0-8.0); NEUTROPHILS # 8.8 10^3/uL (1.5-8.5); PLATELET COUNT, AUTOMATED 393 10^3/uL (150-450); RED BLOOD COUNT 4.23 10^6/uL (4.00-5.40); WHITE BLOOD COUNT 12.2 10^3/uL (4.0-10.0)
[2020-11-15] MEDS: ALPRAZolam 0.5 MG TAB PO PRN (06:14)
[2020-11-15 06:40] LABS: BLOOD UREA NITROGEN 16 MG/DL (7-18); CALCIUM LEVEL 9.3 MG/DL (8.8-10.2); CARBON DIOXIDE LEVEL 40 MEQ/L (21-32); CHLORIDE LEVEL 96 MEQ/L (98-107); CREATININE FOR GFR 0.66 MG/DL (0.55-1.30); GLOMERULAR FILTRATION RATE > 60.0 (>45); GLUCOSE, FASTING 160 MG/DL (70-100); SODIUM LEVEL 138 MEQ/L (136-145)
[2020-11-15] MEDS: SUCRALFATE SUSP 1GM/10ML UD PO SCH (07:47)
[2020-11-15] MEDS: HumaLOG INSULIN (NovoLOG) PER UNIT SC SCH (07:48)
[2020-11-15 07:53] VITALS: BP 121/70
[2020-11-15] MEDS: MAGNESIUM OXIDE 400MG TAB (MAG-OX) PO SCH (07:53)
[2020-11-15] MEDS: hydrOXYzine 10 MG TAB PO SCH (07:53)
[2020-11-15] MEDS: NORCO, ANEXSIA 5/325MG TABLET (HYDROcodone/ACETAMINOPHEN) PO SCH (07:53)
[2020-11-15] MEDS: GABAPENTIN 300 MG CAP PO SCH (07:53)
[2020-11-15] MEDS: DOCUSATE SODIUM 100MG CAPSULE PO SCH (07:54)
[2020-11-15] MEDS: FLUoxetine 10 MG CAP PO SCH (07:54)
[2020-11-15] MEDS: predniSONE 10 MG TAB PO SCH (07:54)
[2020-11-15] MEDS: SIMETHICONE 80MG CHEW TAB PO SCH (07:54)
[2020-11-15] MEDS: PANTOPRAZOLE 40MG TAB (PROTONIX) PO SCH (07:54)
[2020-11-15] MEDS: CALCIUM CARBONATE 500 MG CHEW U/D PO SCH (07:55)
[2020-11-15] MEDS: ASPIRIN 81MG ENTERIC TABLET PO SCH (07:55)
[2020-11-15] MEDS: VITAMIN D 1,000 INTERNATIONAL UNITS TABLET PO SCH (07:55)
[2020-11-15] MEDS: ALPRAZolam 0.5 MG TAB PO SCH (07:55)
[2020-11-15] MEDS: OMEPRAZOLE 20 MG CAP PO SCH (07:56)
[2020-11-15 07:57] VITALS: BP 121/70
[2020-11-15] MEDS: BISOPROLOL FUM 2.5 MG PER 1/2TAB PO SCH (07:57)
[2020-11-15] MEDS: ENOXAPARIN 40MG/0.4ML SYRINGE (J1650 PER 10MG) SC SCH (07:57)
[2020-11-15] MEDS: NYSTATIN 100,000 UNITS/GM TOPICAL PWD 15 GM TOP SCH (07:58)
[2020-11-15] MEDS: ADVAIR HFA 115/21MCG INHALER INH SCH (08:00)
[2020-11-15] MEDS: IPRATROPIUM 0.5MG/ALBUTEROL 2.5MG INH SOL UD 3ML (DUONEB) INH SCH (08:11)
[2020-11-15] MEDS ORDERED: POTASSIUM CHLORIDE 10 MEQ SR TABLET PO ONE (08:15)
[2020-11-15] MEDS ORDERED: POTASSIUM CHLORIDE 10 MEQ SR TABLET PO SCH ×2 (09:00)
--- NOTE | 2020-11-15 11:38 | DS.PDOC ---
Discharge Summary General Date of Admission Nov 13, 2020 at 13:44 Date of Discharge 11/15/20 Discharge Summary DISCHARGE DIAGNOSES: Palpitations most likely multifocal atrial tachycardia due to end-stage COPD, negative A. fib/a flutter on telemetry Moderate cervical spinal stenosis with bilateral upper extremity weakness Lactic acidosis advanced chronic obstructive pulmonary disease (COPD) on 3 liters home oxygen, chronic hypoxic and hypercarbic respiratory failure, steroid dependent, oxygen dependent, congestive heart failure (CHF) with preserved ejection fraction, obstructive sleep apnea (SUYAPA) using bilevel positive airway pressure (BiPAP), diabetes, hypertension, cor pulmonale, coronary artery disease (CAD), hyperlipidemia, major depressive disorder, hypothyroidism, chronic back pain, bipolar, reflux, DISCHARGE MEDICATIONS: SEE BELOW Allergies: See below DISCHARGE INSTRUCTIONS: Primary care physician and pulmonology appointment within 5 days to 7 days of hospital discharge PCP to refer to Orth[facility]spine at [facility] versus neurosurgery regarding cervical spinal stenosis Hospital course: 64-year-old with advanced chronic obstructive pulmonary disease (COPD) on 3 liters home oxygen, chronic hypoxic and hypercarbic respiratory failure, steroid dependent, oxygen dependent, congestive heart failure (CHF) with preserved ejection fraction, obstructive sleep apnea (SUYAPA) using bilevel positive airway pressure (BiPAP), diabetes, hypertension, cor pulmonale, coronary artery disease (CAD), hyperlipidemia, major depressive disorder, hypothyroidism, chronic back pain, bipolar, reflux, admitted due to worsening shortness of breath, found to be tachypneic and tachycardic, admitted for observation on telemetry. CT angiogram was negative for pulmonary embolism. Patient was admitted for evaluation of lactic acidosis and mild elevation of leukocytosis. 1. Palpitations, resolved . telemetry with no signs of atrial flutter or atrial fibrillation. Most likely multifocal atrial tachycardia due to advanced chronic obstructive pulmonary disease (COPD). checked ct chest negative for PE pneumonia or pleural effusion 2. Lactic acidosis. May be related to her advanced chronic obstructive pulmonary disease (COPD). s/p 1 liter of intravenous (IV) fluids. on empiric day 3 ceftriaxone and doxy. cxr neg. antibiotics discontinued due to negative procalcitonin level and CT chest being negative 3. Chronic obstructive pulmonary disease (COPD). On steroids and oxygen. Does not appear to be in decompensated state. Continued on home bronchodilators and inhaled steroids. 4. Type 2 diabetes. On insulin sliding scale, Accu-Chek, consistent carbohydrate diet and hypoglycemic protocol. 5. Obstructive sleep apnea (SUYAPA) on home continuous positive airway pressure (CPAP). Resumed in the hospital. 6. Cor pulmonale with hypertension. 7. Preserved diastolic congestive heart failure (CHF), compensated. Continue on torsemide. 8. Hypertension. Stable. Holding parameters on blood pressure medications. 9. History of coronary artery disease (CAD). Continue aspirin and statin. 10. Chronic back pain. On gabapentin. 11. Hyperlipidemia. On statins. 12. Depression. On home medications. 13. Hypothyroidism. On Synthroid. 14. moderate cervical stenosis on mri cervical spine With bilateral upper extremity weakness Outpatient referral by primary care physician to orthopedic spine surgery in [place] or neurosurgical services DISCHARGE PHYSICAL EXAMINATION: vitals : see below GENERAL: Awake, alert, oriented to person, place and time, answering questions appropriately. No use of respiratory accessory muscles. no distress HEENT: No tracheal deviation. No pallor, icterus or jaundice. No jugular venous distention (JVD) or thyromegaly. LUNGS: Diminished. no wheezing or rales HEART: S1, S2. Sinus rhythm. ABDOMEN: Obese. Soft, nontender, nondistended. EXTREMITIES: No cyanosis, clubbing or pitting edema. NEURO: no facial asymmetry, tongue midline uvula midline speech fluent 5/5 strength b/l LE. UE 5/5/ strength no sensory disturbance. LABORATORY DATA: Laboratory data, imaging studies, microbiology have been reviewed. TIME SPENT ON DISCHARGE: 30 MINUTES Vital Signs/I&Os Vital Signs Date Time Temp Pulse Resp B/P (MAP) Pulse Ox O2 Delivery O2 Flow Rate FiO2 11/15/20 08:23 20 11/15/20 07:57 80 121/70 11/15/20 07:53 Nasal Cannula 3.0 93 11/15/20 06:00 97.8 97 I&O- Last 24 Hours up to 6 AM 11/15/20 06:00 Intake Total 1760 ml Output Total 350 ml Balance 1410 ml Laboratory Data Labs 24H Laboratory Tests 2 11/14/20 12:21: Bedside Glucose (Misc Panel) 181H 11/14/20 17:02: Bedside Glucose (Misc Panel) 287H 11/14/20 21:48: Bedside Glucose (Misc Panel) 190H 11/15/20 05:43: Immature Granulocyte % (Auto) 0.7, Neutrophils (%) (Auto) 72.0H, Lymphocytes (%) (Auto) 17.2L, Monocytes (%) (Auto) 8.4H, Eosinophils (%) (Auto) 1.2, Basophils (%) (Auto) 0.5, Neutrophils # (Auto) 8.8H, Lymphocytes # (Auto) 2.1, Monocytes # (Auto) 1.0H, Eosinophils # (Auto) 0.2, Basophils # (Auto) 0.1, Nucleated Red Blood Cells % (auto) 0.0, Anion Gap 2L, Glomerular Filtration Rate > 60.0, Calcium Level 9.3 11/15/20 07:39: Lab Scanned Report Miscellaneous Lab CBC/BMP Laboratory Tests 11/15/20 05:43 FSBS Laboratory Tests Test 11/14/20 12:21 11/14/20 17:02 11/14/20 21:48 Range/Units Bedside Glucose (Misc Panel) 181 287 190 80-115 MG/DL Microbiology Microbiology 11/12/20 Blood Culture - Preliminary, Resulted No Growth after 48 hours. All Specime... 11/12/20 Respiratory Virus Panel (PCR) ([facility]) - Final, Complete 11/12/20 Blood Culture - Preliminary, Resulted No Growth after 72 hours. All specime... Discharge Medications Scheduled Alprazolam (Alprazolam) 0.5 Mg Tablet, 0.5 MG PO BID, (Reported) Aspirin (Aspirin EC) 81 Mg Tablet.dr, 81 MG PO DAILY, (Reported) Atorvastatin Calcium (Lipitor) 80 Mg Tab, 80 MG PO QHS, (Reported) Azithromycin (Azithromycin) 250 Mg Tablet, 250 MG PO DAILY, (Reported) Bisoprolol Fumarate (Bisoprolol Fumarate) 5 Mg Tab, 2.5 MG PO DAILY, (Reported) Calcium Carbonate (Tums) 200 Mg Tab.chew, 1,000 MG PO QID, (Reported) Cholecalciferol (Vitamin D3) (Vitamin D3) 1,000 Unit Tablet, 5,000 UNITS PO DAILY, (Reported) TAKES AT LUNCH Fluoxetine Hcl (Fluoxetine HCl) 10 Mg Capsule, 10 MG PO DAILY, (Reported) Gabapentin (Gabapentin) 600 Mg Tablet, 600 MG PO TID, (Reported) Hydrocodone/Acetaminophen (Hydrocodone-Acetamin 5-325 mg) 1 Each Tablet, 1 TAB PO DAILY, (Reported) Hydroxyzine HCl (Hydroxyzine HCl) 10 Mg Tablet, 10 MG PO DAILY, (Reported) TAKES AT NOON Insulin Glargine,Hum.rec.anlog (Lantus Solostar) 100 Unit/1 Ml Insuln.pen, 60 UNITS SC QHS, (Reported) Insulin Lispro (Humalog Kwikpen U-100) 100 Unit/1 Ml Insuln.pen, 26 UNITS SC QPM, (Reported) @ 1700 Insulin Lispro (Humalog Kwikpen U-100) 100 Unit/1 Ml Insuln.pen, 25 UNITS SC DAILY, (Reported) @ 1200 Insulin Lispro (Humalog Kwikpen U-100) 100 Unit/1 Ml Insuln.pen, 10 UNITS SC DAILY, (Reported) @ 0800 Ipratropium/Albuterol Sulfate (Iprat-Albut 0.5-3(2.5) mg/3 ml) 3 Ml Ampul.neb, 1 VIAL INH QID, (Reported) Levothyroxine Sodium (Levoxyl) 25 Mcg Tab, 25 MCG PO QAM, (Reported) Linagliptin (Tradjenta) 5 Mg Tablet, 5 MG PO DAILY, (Reported) Magnesium Oxide (Magnesium Oxide) 400 Mg Tablet, 400 MG PO BID, (Reported) Menthol/Zinc Oxide (Gold [place] Medicated Body Powdr) 113 Gm Powder, 1 APPLIC TOP BID, (Reported) APPLY TO SKIN FOLDS Metformin HCl (Metformin HCl) 500 Mg Tablet, 500 MG PO BID, (Reported) Multivitamins (Thera M Plus Tablet) 1 Each Tablet, 1 TAB PO DAILY, (Reported) Omeprazole (Omeprazole) 20 Mg Capsule.dr, 20 MG PO BID, (Reported) Potassium Chloride (Potassium Chloride) 20 Meq Tab.er.prt, 20 MEQ PO QID, (Reported) @ 0900, 1300, 1700, 2000 Prednisone (Prednisone) 10 Mg Tablet, 10 MG PO DAILY, (Reported) Salmeterol/Fluticasone (Advair 250-50 Diskus) 1 Each Blst.w.dev, 1 PUFF INH BID, (Reported) Semaglutide (Ozempic) 1 Mg/0.75 Ml Pen.injctr, 1 MG SC QWEEK, (Reported) SUNDAYS AT 1800 Simethicone (Simethicone) 80 Mg Tab.chew, 80 MG PO WM, (Reported) Torsemide (Torsemide) 100 Mg Tablet, 150 MG PO DAILY, (Reported) Umeclidinium [place] (Incruse Ellipta) 62.5 Mcg Blst.w.dev, 1 PUFF INH DAILY, (Reported) Scheduled PRN Acetaminophen (Acetaminophen 8 Hour) 650 Mg Tablet.er, 650 MG PO BID PRN for PAIN, (Reported) Albuterol Sulfate (Ventolin Hfa) 108 Mcg/Act Aer, 2 PUFFS INH Q4H PRN for SHORTNESS OF BREATH, (Reported) Alprazolam (Alprazolam) 0.5 Mg Tablet, 0.5 MG PO DAILY PRN for ANXIETY, (Reported) Diclofenac Sodium (Diclofenac Sodium) 1% 100GM Gel..gram., 4 GM TOP TID PRN for PAIN LEVEL 1-5, (Reported) APPLY TO AREAS OF PAIN, PT SELF ADMINISTERS Hydrocodone/Acetaminophen (Hydrocodone-Acetamin 5-325 mg) 1 Each Tablet, 1 TAB PO QHS PRN for PAIN, (Reported) Ipratropium/Albuterol Sulfate (Iprat-Albut 0.5-3(2.5) mg/3 ml) 3 Ml Ampul.neb, 1 VIAL INH Q6H PRN for SHORTNESS OF BREATH, (Reported) Levalbuterol HCl (Levalbuterol HCl) 1.25 Mg/3 Ml Vial.neb, 1 VIAL NEB Q4H PRN for SHORTNESS OF BREATH, (Reported) Lidocaine HCl (Aspercreme) 4% Cream..g., 1 APLCT TOP DAILY PRN for PAIN, (Reported) APPLY TO PAINFUL AREAS Milk Of Magnesia (Milk of Magnesia) 2,400 Mg/10 Ml Oral.susp, 10 ML PO DAILY PRN for CONSTIPATION, (Reported) Nystatin (Nystatin Powder) 15 Gm Powder, 1 DOSE TOP BID PRN for ITCH/RASH, (Re ported) USES UNDER BREASTS Allergies Coded Allergies: dapagliflozin (Verified Allergy, Mild, Sores, 05/27/20) Cat Dander (Verified Allergy, Unknown, 05/27/20) Dust (Verified Allergy, Unknown, 05/27/20) DAMIR HURLEY MD Nov 15, 2020 11:38
[2020-11-16] MEDS ORDERED: OMEPRAZOLE 20 MG CAP PO SCH (09:00)
== END 2020-11-15 11:31 | DRG 191 ==
LOC: M ED 07:11 → M ED INP 10:14 → ENRESERV 10:47 → M ICU 11:46 → OBSVTOIN 11-13 13:44 → M MSPAV 11-13 15:48
PROVIDERS: ADMIT Family Medicine; ATTEND General Practice
DX: J44.9 Chronic obstructive pulmonary disease, unspecified (principal); I50.32 Chronic diastolic (congestive) heart failure; E87.2 Acidosis; J96.11 Chronic respiratory failure with hypoxia; J96.12 Chronic respiratory failure with hypercapnia; R00.2 Palpitations; G47.33 Obstructive sleep apnea (adult) (pediatric); I27.81 Cor pulmonale (chronic); E11.9 Type 2 diabetes mellitus without complications; I11.0 Hypertensive heart disease with heart failure; R00.0 Tachycardia, unspecified; I25.10 Atherosclerotic heart disease of native coronary artery without angina pectoris; E78.5 Hyperlipidemia, unspecified; J30.81 Allergic rhinitis due to animal (cat) (dog) hair and dander; F31.9 Bipolar disorder, unspecified; J30.89 Other allergic rhinitis; M48.02 Spinal stenosis, cervical region; K21.9 Gastro-esophageal reflux disease without esophagitis; M54.9 Dorsalgia, unspecified; Z99.81 Dependence on supplemental oxygen; Z90.49 Acquired absence of other specified parts of digestive tract; Z87.891 Personal history of nicotine dependence; Z79.82 Long term (current) use of aspirin; Z79.891 Long term (current) use of opiate analgesic; Z79.4 Long term (current) use of insulin; Z79.899 Other long term (current) drug therapy; Z79.52 Long term (current) use of systemic steroids; Z88.8 Allergy status to other drugs, medicaments and biological substances

== ENCOUNTER → 2020-11-27 | Outpatient (REF) | payer MEDICARE, MEDICAID ==
[~2020-11-27] MED LIST changes: +DICL1GEL3 TOP; +HYDR-643 PO; +OZEM2INJ2 SC
[2020-11-27 12:50] LABS: BLOOD UREA NITROGEN 13 MG/DL (7-18); CALCIUM LEVEL 9.1 MG/DL (8.8-10.2); CARBON DIOXIDE LEVEL 36 MEQ/L (21-32); CHLORIDE LEVEL 98 MEQ/L (98-107); GLOMERULAR FILTRATION RATE > 60.0 (>45); GLUCOSE, FASTING 114 MG/DL (70-100); POTASSIUM SERUM 3.5 MEQ/L (3.5-5.1); SODIUM LEVEL 141 MEQ/L (136-145)
== END ==
PROVIDERS: ATTEND Nurse Practitioner Adult Health
DX: I11.9 Hypertensive heart disease without heart failure (principal)

== ENCOUNTER → 2020-12-04 | Outpatient (REF) | payer MEDICARE, MEDICAID ==
[2020-12-04 16:08] LABS: BLOOD UREA NITROGEN 13 MG/DL (7-18); CALCIUM LEVEL 8.5 MG/DL (8.8-10.2); CARBON DIOXIDE LEVEL 34 MEQ/L (21-32); CHLORIDE LEVEL 96 MEQ/L (98-107); CREATININE FOR GFR 0.81 MG/DL (0.55-1.30); GLOMERULAR FILTRATION RATE > 60.0 (>45); GLUCOSE, FASTING 230 MG/DL (70-100); POTASSIUM SERUM 3.4 MEQ/L (3.5-5.1); SODIUM LEVEL 140 MEQ/L (136-145)
== END ==
LOC: M SHH 15:20
PROVIDERS: ATTEND Nurse Practitioner Adult Health
DX: I11.0 Hypertensive heart disease with heart failure (principal)

== ENCOUNTER 2020-12-08 19:58 | Emergency (ER) | payer MEDICARE, MEDICAID ==
[~2020-12-08] VITALS: Ht 165.1 cm; Wt 109.0 kg
[2020-12-08 20:23] LABS: VENOUS BASE EXCESS 7.6 (-2.0-2.0); VENOUS HCO3 34.8 MEQ/L (23.0-27.0); VENOUS O2 SATURATION 76.4 % (60.0-80.0); VENOUS PARTIAL PRESSURE O2 46.5 mmHg (30.0-50.0); VENOUS TOTAL CO2 36.7 MEQ/L (24.0-28.0)
[2020-12-08 20:27] LABS: BASO # 0.1 10^3/uL (0.0-0.2); BASO % 0.3 % (0.0-1.0); EOS % 0.1 % (0.0-3.0); HEMATOCRIT 36.5 % (36.0-47.0); HEMOGLOBIN 10.6 g/dl (12.0-15.5); LYMPH # 1.6 10^3/uL (1.5-5.0); LYMPH % 9.7 % (24.0-44.0); MEAN CORPUSCULAR HEMOGLOBIN 24.7 pg (27.0-33.0); MEAN CORPUSCULAR VOLUME 85.1 fl (80.0-96.0); MONO % 5.9 % (2.0-8.0); NEUTROPHILS # 14.1 10^3/uL (1.5-8.5); NEUTROPHILS % 83.1 % (36.0-66.0); PLATELET COUNT, AUTOMATED 437 10^3/uL (150-450); RED BLOOD COUNT 4.29 10^6/uL (4.00-5.40); WHITE BLOOD COUNT 16.9 10^3/uL (4.0-10.0)
[2020-12-08 20:53] LABS: ALBUMIN 3.4 GM/DL (3.2-5.2); ALT/SGPT 36 U/L (12-78); BILIRUBIN,DIRECT 0.1 MG/DL (0.0-0.2); BILIRUBIN,TOTAL 0.4 MG/DL (0.2-1.0); BLOOD UREA NITROGEN 19 MG/DL (7-18); CARBON DIOXIDE LEVEL 36 MEQ/L (21-32); CHLORIDE LEVEL 99 MEQ/L (98-107); CREATININE FOR GFR 0.83 MG/DL (0.55-1.30); GLOMERULAR FILTRATION RATE > 60.0 (>45); GLUCOSE, FASTING 207 MG/DL (70-100); POTASSIUM SERUM 4.6 MEQ/L (3.5-5.1); SODIUM LEVEL 141 MEQ/L (136-145); TOTAL PROTEIN 7.1 GM/DL (6.4-8.2)
[2020-12-08] MEDS ORDERED: AZITHROMYCIN 250MG TABLET PO ONE (22:00)
--- NOTE | 2020-12-08 22:11 | REPVR ---
PROCEDURE INFORMATION: Exam: XR Chest Exam date and time: 12/08/2020 8:44 PM Age: 64 years old Clinical indication: Cough and dyspnea; Additional info: Dyspnea/cough TECHNIQUE: Imaging protocol: XR of the chest. Views: 1 view. COMPARISON: DE PORTABLE CHEST X-RAY 11/12/2020 7:40 AM FINDINGS: Lungs: Clear. No consolidation. Pleural spaces: No pleural effusion. No pneumothorax. Heart/Mediastinum: Unremarkable. No cardiomegaly. Bones/joints: Mild scoliosis. IMPRESSION: No acute findings. Electronically signed by: Kike Martinez On 12/08/2020 22:10:47 PM
[2020-12-08 22:30] VITALS: BP 126/68
[2020-12-08] MEDS ORDERED: AZIT500T5 PO (22:34)
[2020-12-08] MEDS ORDERED: PRED20TA PO (22:34)
--- NOTE | 2020-12-09 22:05 | ECGEPIP ---
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
== END 2020-12-08 22:56 | disposition home or self-care (01) ==
LOC: M ED 19:58
DX: J44.1 Chronic obstructive pulmonary disease with (acute) exacerbation (principal); E11.9 Type 2 diabetes mellitus without complications; E78.5 Hyperlipidemia, unspecified; E03.9 Hypothyroidism, unspecified; Z88.8 Allergy status to other drugs, medicaments and biological substances; J30.89 Other allergic rhinitis; Z79.899 Other long term (current) drug therapy; Z79.82 Long term (current) use of aspirin; Z79.4 Long term (current) use of insulin; Z79.890 Hormone replacement therapy

== ENCOUNTER → 2020-12-14 | Outpatient (REF) | payer MEDICARE, MEDICAID ==
[2020-12-14 19:32] LABS: ANISOCYTOSIS 1+; LYMPHOCYTES 6 % (16-44); NEUTROPHILS 93 % (28-66)
[2020-12-14 19:33] LABS: MICROCYTOSIS 1+; PLATELET ESTIMATE INCREASED (NORMAL)
[2020-12-14 19:34] LABS: POLYCHROMASIA 1+
== END ==
LOC: M LAB REF 16:28
PROVIDERS: ATTEND Physician Assistant Medical
DX: D72.829 Elevated white blood cell count, unspecified (principal)

== ENCOUNTER → 2020-12-21 | Outpatient (REF) | payer MEDICARE, MEDICAID ==
[2020-12-21 11:36] LABS: APPEARANCE, URINE CLEAR (CLEAR); BACTERIA, URINE AUTO NEGATIVE (NEGATIVE); BILIRUBIN, URINE AUTO NEGATIVE (NEGATIVE); BLOOD, URINE BLOOD NEGATIVE (NEGATIVE); COLOR, URINE YELLOW (YELLOW); GLUCOSE, URINE (UA) AUTO NEGATIVE (NEGATIVE); KETONE, URINE AUTO NEGATIVE (NEGATIVE); LEUKOCYTE ESTERASE, URINE AUTO NEGATIVE (NEGATIVE); MUCUS, URINE SMALL (NEGATIVE); NITRITE, URINE AUTO NEGATIVE (NEGATIVE); PROTEIN, URINE AUTO NEGATIVE (NEGATIVE); RBC, URINE AUTO 1 /HPF (0-3); SPECIFIC GRAVITY URINE AUTO 1.015 (1.002-1.035); SQUAMOUS EPITHELIAL CELL UR AU 1 /HPF (0-6); UROBILINOGEN, URINE AUTO 0.2 mg/dL (0.0-2.0); WBC, URINE AUTO 1 /HPF (0-3)
== END ==
LOC: M LAB REF 10:33
PROVIDERS: ATTEND Physician Assistant Medical
DX: R30.0 Dysuria (principal)

== ENCOUNTER → 2020-12-31 | Outpatient (CLI) | payer MEDICARE, MEDICAID ==
[~2020-12-31] MED LIST changes: -DOXY100C PO; +DOXY100C3 PO; +FLUO-96 PO; -FLUO10CA16 PO; +FLUO10CA18 PO; -FLUO20CA20 PO; -KLOR10TA76 PO; -LISI-898 PO; -LISI2.5T2 PO; +LISI2.5T9 PO; +LISI5TAB11 PO; +POTA-136 PO; +POTA-149 PO; +POTA-151 PO; -POTA10TA16 PO; +POTA1TAB22 PO; -POTA20TA6 PO; -POTA8TAB8 PO; -PROC10TA4 PO; +PROC10TA5 PO
== END ==
LOC: M RAD 13:02
PROVIDERS: ATTEND Physician Assistant Medical
DX: R06.02 Shortness of breath (principal)

== ENCOUNTER → 2021-04-05 | Outpatient (REF) | payer MEDICARE, MEDICAID ==
[~2021-04-05] MED LIST changes: -FLUO-96 PO; +FLUO10CA16 PO; -FLUO10CA18 PO; +FLUO20CA20 PO; +LISI-898 PO; -LISI5TAB11 PO; -POTA-149 PO; -POTA-151 PO; +POTA10TA16 PO; -POTA1TAB22 PO; +POTA20TA6 PO; +POTA8TAB8 PO; +PROC10TA4 PO; -PROC10TA5 PO
[2021-04-05 17:40] LABS: APPEARANCE, URINE CLEAR (CLEAR); BACTERIA, URINE AUTO NEGATIVE (NEGATIVE); BILIRUBIN, URINE AUTO NEGATIVE (NEGATIVE); BLOOD, URINE BLOOD NEGATIVE (NEGATIVE); COLOR, URINE STRAW (YELLOW); GLUCOSE, URINE (UA) AUTO 3+ mg/dL (NEGATIVE); KETONE, URINE AUTO NEGATIVE (NEGATIVE); LEUKOCYTE ESTERASE, URINE AUTO NEGATIVE (NEGATIVE); NITRITE, URINE AUTO NEGATIVE (NEGATIVE); PROTEIN, URINE AUTO NEGATIVE (NEGATIVE); RBC, URINE AUTO 0 /HPF (0-3); SPECIFIC GRAVITY URINE AUTO 1.009 (1.002-1.035); SQUAMOUS EPITHELIAL CELL UR AU 2 /HPF (0-6); UROBILINOGEN, URINE AUTO 0.2 mg/dL (0.0-2.0); WBC, URINE AUTO 2 /HPF (0-3)
== END ==
PROVIDERS: ATTEND Physician Assistant Medical
DX: R35.0 Frequency of micturition (principal); R30.9 Painful micturition, unspecified

== ENCOUNTER → 2021-04-15 | Outpatient (REF) | payer MEDICARE, MEDICAID ==
[2021-04-15 11:22] LABS: BLOOD UREA NITROGEN 12 MG/DL (7-18); CARBON DIOXIDE LEVEL 37 MEQ/L (21-32); CHLORIDE LEVEL 97 MEQ/L (98-107); GLOMERULAR FILTRATION RATE > 60.0 (>45); GLUCOSE, FASTING 127 MG/DL (70-100); MAGNESIUM LEVEL 1.9 MG/DL (1.8-2.4); POTASSIUM SERUM 3.1 MEQ/L (3.5-5.1); SODIUM LEVEL 141 MEQ/L (136-145)
== END ==
PROVIDERS: ATTEND Internal Medicine
DX: I50.9 Heart failure, unspecified (principal); I11.0 Hypertensive heart disease with heart failure; E78.5 Hyperlipidemia, unspecified

== ENCOUNTER → 2021-04-22 | Outpatient (REF) | payer MEDICARE, MEDICAID ==
[2021-04-22 11:38] LABS: BLOOD UREA NITROGEN 11 MG/DL (7-18); CALCIUM LEVEL 8.7 MG/DL (8.8-10.2); CARBON DIOXIDE LEVEL 34 MEQ/L (21-32); CHLORIDE LEVEL 99 MEQ/L (98-107); CREATININE FOR GFR 0.76 MG/DL (0.55-1.30); GLOMERULAR FILTRATION RATE > 60.0 (>45); GLUCOSE, FASTING 113 MG/DL (70-100); POTASSIUM SERUM 3.7 MEQ/L (3.5-5.1); SODIUM LEVEL 140 MEQ/L (136-145)
== END ==
PROVIDERS: ATTEND Nurse Practitioner Adult Health
DX: E87.6 Hypokalemia (principal)

== ENCOUNTER → 2021-04-24 | Outpatient (REF) | payer MEDICARE, MEDICAID | PROVIDERS: ATTEND Nurse Practitioner Adult Health | DX: E87.6 Hypokalemia (principal) ==

== ENCOUNTER → 2021-05-09 | Outpatient (REF) | payer MEDICARE, MEDICAID | PROVIDERS: ATTEND Internal Medicine | DX: Z20.822 Contact with and (suspected) exposure to COVID-19 (principal) ==

== ENCOUNTER → 2021-05-10 | Outpatient (REF) | payer MEDICARE, MEDICAID ==
[~2021-05-10] MED LIST changes: +FLUO-96 PO; -FLUO10CA16 PO; +FLUO10CA18 PO; -FLUO20CA20 PO; -LISI-898 PO; +LISI5TAB11 PO; +POTA-149 PO; +POTA-151 PO; -POTA10TA16 PO; +POTA1TAB22 PO; -POTA20TA6 PO; -POTA8TAB8 PO; -PROC10TA4 PO; +PROC10TA5 PO
== END ==
PROVIDERS: ATTEND Internal Medicine
DX: Z20.822 Contact with and (suspected) exposure to COVID-19 (principal)

== ENCOUNTER → 2021-05-17 | Outpatient (REF) | payer MEDICARE, MEDICAID ==
[~2021-05-17] MED LIST changes: -FLUO-96 PO; +FLUO10CA16 PO; -FLUO10CA18 PO; +FLUO20CA20 PO; +LISI-898 PO; -LISI5TAB11 PO; -POTA-149 PO; -POTA-151 PO; +POTA10TA16 PO; -POTA1TAB22 PO; +POTA20TA6 PO; +POTA8TAB8 PO; +PROC10TA4 PO; -PROC10TA5 PO
== END ==
PROVIDERS: ATTEND Internal Medicine
DX: Z01.812 Encounter for preprocedural laboratory examination (principal); Z20.822 Contact with and (suspected) exposure to COVID-19

== ENCOUNTER → 2021-06-14 | Outpatient (REF) | payer MEDICARE, MEDICAID ==
[~2021-06-14] MED LIST changes: +FLUO-96 PO; -FLUO10CA16 PO; +FLUO10CA18 PO; -FLUO20CA20 PO; -LISI-898 PO; +LISI5TAB11 PO; +POTA-149 PO; +POTA-151 PO; -POTA10TA16 PO; +POTA1TAB22 PO; -POTA20TA6 PO; -POTA8TAB8 PO; -PROC10TA4 PO; +PROC10TA5 PO
== END ==
PROVIDERS: ATTEND Internal Medicine
DX: Z20.822 Contact with and (suspected) exposure to COVID-19 (principal); Z01.818 Encounter for other preprocedural examination

== ENCOUNTER → 2021-06-24 | Outpatient (REF) | payer MEDICARE, MEDICAID ==
[2021-06-24 11:52] LABS: HEMOGLOBIN A1c 5.7 %
[2021-06-24 11:58] LABS: BLOOD UREA NITROGEN 9 MG/DL (7-18); CALCIUM LEVEL 8.8 MG/DL (8.8-10.2); CARBON DIOXIDE LEVEL 27 MEQ/L (21-32); CHLORIDE LEVEL 103 MEQ/L (98-107); CREATININE FOR GFR 0.68 MG/DL (0.55-1.30); GLOMERULAR FILTRATION RATE > 60.0 (>45); GLUCOSE, FASTING 114 MG/DL (70-100); POTASSIUM SERUM 4.3 MEQ/L (3.5-5.1); SODIUM LEVEL 141 MEQ/L (136-145)
== END ==
PROVIDERS: ATTEND Nurse Practitioner Adult Health
DX: E11.40 Type 2 diabetes mellitus with diabetic neuropathy, unspecified (principal); I50.32 Chronic diastolic (congestive) heart failure

== ENCOUNTER → 2021-07-11 | Outpatient (CLI) | payer MEDICARE, MEDICAID | LOC: M WHC 13:08 | PROVIDERS: ATTEND Nurse Practitioner Adult Health | DX: Z12.31 Encounter for screening mammogram for malignant neoplasm of breast (principal) ==

== ENCOUNTER → 2021-07-29 | Outpatient (REF) | payer MEDICARE, MEDICAID ==
[~2021-07-29] MED LIST changes: -D31000TA2 PO; +VITA100093 PO
[2021-07-29 10:26] LABS: HEMATOCRIT 39.3 % (36.0-47.0); HEMOGLOBIN 11.4 g/dl (12.0-15.5); MEAN CORPUSCULAR HEMOGLOBIN 25.4 pg (27.0-33.0); MEAN CORPUSCULAR VOLUME 87.5 fl (80.0-96.0); PLATELET COUNT, AUTOMATED 444 10^3/uL (150-450); RED BLOOD COUNT 4.49 10^6/uL (4.00-5.40); WHITE BLOOD COUNT 17.4 10^3/uL (4.0-10.0)
[2021-07-29 10:58] LABS: HEMOGLOBIN A1c 6.2 %
[2021-07-29 11:02] LABS: ALBUMIN 3.7 GM/DL (3.2-5.2); ALT/SGPT 40 U/L (12-78); BILIRUBIN,TOTAL 0.4 MG/DL (0.2-1.0); BLOOD UREA NITROGEN 16 MG/DL (7-18); CALCIUM LEVEL 9.2 MG/DL (8.8-10.2); CARBON DIOXIDE LEVEL 36 MEQ/L (21-32); CHLORIDE LEVEL 97 MEQ/L (98-107); CREATININE FOR GFR 0.71 MG/DL (0.55-1.30); GLOMERULAR FILTRATION RATE > 60.0 (>45); GLUCOSE, FASTING 144 MG/DL (70-100); MAGNESIUM LEVEL 1.8 MG/DL (1.8-2.4); POTASSIUM SERUM 3.6 MEQ/L (3.5-5.1); SODIUM LEVEL 138 MEQ/L (136-145); TOTAL PROTEIN 7.1 GM/DL (6.4-8.2)
== END ==
PROVIDERS: ATTEND Nurse Practitioner Adult Health
DX: I50.9 Heart failure, unspecified (principal); E11.9 Type 2 diabetes mellitus without complications; Z79.02 Long term (current) use of antithrombotics/antiplatelets

== ENCOUNTER → 2021-11-08 | Outpatient (REF) | payer MEDICARE, MEDICAID ==
[~2021-11-08] MED LIST changes: +ALBU2.5V10 INH; -ALBU83IN INH
== END ==
LOC: M PLALAB 15:51
PROVIDERS: ATTEND Advanced Practice Midwife
DX: Z01.419 Encounter for gynecological examination (general) (routine) without abnormal findings (principal)

== ENCOUNTER → 2021-11-14 | Outpatient (CLI) | payer MEDICARE, MEDICAID | LOC: M PLAIMG 12:53 | PROVIDERS: ATTEND Physician Assistant Medical | DX: M85.88 Other specified disorders of bone density and structure, other site (principal); M25.551 Pain in right hip; R29.6 Repeated falls ==

== ENCOUNTER → 2022-01-15 | Outpatient (REF) | payer MEDICARE, MEDICAID ==
[~2022-01-15] MED LIST changes: +LEVO1TAB40 PO; -LEVO750T13 PO
[2022-01-15 12:23] LABS: BLOOD UREA NITROGEN 13 MG/DL (7-18); CALCIUM LEVEL 8.9 MG/DL (8.8-10.2); CARBON DIOXIDE LEVEL 36 MEQ/L (21-32); CHLORIDE LEVEL 100 MEQ/L (98-107); CREATININE FOR GFR 0.65 MG/DL (0.55-1.30); GLOMERULAR FILTRATION RATE > 60.0 (>45); GLUCOSE, FASTING 143 MG/DL (70-100); POTASSIUM SERUM 4.1 MEQ/L (3.5-5.1); SODIUM LEVEL 139 MEQ/L (136-145)
== END ==
PROVIDERS: ATTEND Nurse Practitioner Adult Health
DX: E87.5 Hyperkalemia (principal)

== ENCOUNTER → 2022-01-29 | Outpatient (REF) | payer MEDICARE, MEDICAID ==
[2022-01-29 13:02] LABS: BLOOD UREA NITROGEN 17 MG/DL (7-18); CARBON DIOXIDE LEVEL 37 MEQ/L (21-32); CHLORIDE LEVEL 96 MEQ/L (98-107); CREATININE FOR GFR 0.75 MG/DL (0.55-1.30); GLOMERULAR FILTRATION RATE > 60.0 (>45); GLUCOSE, FASTING 120 MG/DL (70-100); POTASSIUM SERUM 3.7 MEQ/L (3.5-5.1); SODIUM LEVEL 137 MEQ/L (136-145)
== END ==
PROVIDERS: ATTEND Nurse Practitioner Adult Health
DX: E87.5 Hyperkalemia (principal)

== ENCOUNTER → 2022-03-20 | Outpatient (CLI) | payer MEDICARE, MEDICAID ==
[~2022-03-20] MED LIST changes: -DOXY-350 PO; +DOXY-444 PO
== END ==
LOC: M PLAIMG 12:41
PROVIDERS: ATTEND Nurse Practitioner Adult Health
DX: M51.36 Other intervertebral disc degeneration, lumbar region (principal)

== ENCOUNTER → 2022-04-03 | Outpatient (REF) | payer MEDICARE, MEDICAID | LOC: M LAB REF 12:20 | PROVIDERS: ATTEND Nurse Practitioner Adult Health | DX: M25.50 Pain in unspecified joint (principal) ==

== ENCOUNTER → 2022-04-04 | Outpatient (CLI) | payer MEDICARE, MEDICAID | LOC: M PLAIMG 13:22 | PROVIDERS: ATTEND Nurse Practitioner Adult Health | DX: M17.12 Unilateral primary osteoarthritis, left knee (principal) ==

== ENCOUNTER → 2022-06-05 | Outpatient (CLI) | payer MEDICARE, MEDICAID ==
[~2022-06-05] MED LIST changes: +NYST-38 SS; -NYST50SS SS
== END ==
LOC: M RAD 12:25
PROVIDERS: ATTEND Physician Assistant
DX: M47.896 Other spondylosis, lumbar region (principal); M51.36 Other intervertebral disc degeneration, lumbar region

== ENCOUNTER → 2022-07-17 | Outpatient (CLI) | payer MEDICARE, MEDICAID | LOC: M WHC 10:42 | PROVIDERS: ATTEND Nurse Practitioner Adult Health | DX: Z79.52 Long term (current) use of systemic steroids (principal) ==

== ENCOUNTER → 2022-07-21 | Outpatient (REF) | payer MEDICARE, MEDICAID | LOC: M LAB REF 16:21 | PROVIDERS: ATTEND Physician Assistant Medical | DX: R10.13 Epigastric pain (principal) ==

== ENCOUNTER 2022-07-24 08:12 | Emergency (ER) | payer MEDICARE, MEDICAID ==
[2022-07-24] MEDS ORDERED: IPRATROPIUM 0.5MG/ALBUTEROL 2.5MG INH SOL UD 3ML (DUONEB) NEB ONE ×2 (08:40→13:25)
[2022-07-24] MEDS ORDERED: ACETAMINOPHEN TAB 650MG DOSE (2X325MG) PO ONE (08:40)
[2022-07-24] MEDS ORDERED: ALBUTEROL SULFATE 2.5MG/0.5ML INH NEB SOLN INH ONE (08:40)
[2022-07-24 09:06] LABS: ABG BASE EXCESS 5.3 (-2.0-2.0); ABG HCO3 31.6 MEQ/L (22.0-26.0); ABG O2 SATURATION 95.8 % (95.0-99.0); ABG PARTIAL PRESSURE CO2 53.8 mmHg (35.0-45.0); ABG PARTIAL PRESSURE O2 95.6 mmHg (75.0-100.0); ABG STANDARD HCO3 29.2 MEQ/L (22.0-26.0); ABG TOTAL CO2 33.3 MEQ/L (23.0-31.0); ABG pH (ARTERIAL) 7.387 UNITS (7.350-7.450)
[2022-07-24 09:16] LABS: BASO # 0.1 10^3/uL (0.0-0.2); BASO % 0.5 % (0.0-1.0); EOS # 0.1 10^3/uL (0.0-0.5); EOS % 0.7 % (0.0-3.0); HEMATOCRIT 42.7 % (36.0-47.0); HEMOGLOBIN 12.7 g/dl (12.0-15.5); LYMPH % 18.2 % (24.0-44.0); MEAN CORPUSCULAR HEMOGLOBIN 26.9 pg (27.0-33.0); MEAN CORPUSCULAR HGB CONC 29.7 g/dl (32.0-36.5); MEAN CORPUSCULAR VOLUME 90.5 fl (80.0-96.0); MONO # 1.5 10^3/uL (0.0-0.8); MONO % 8.8 % (2.0-8.0); NEUTROPHILS # 11.6 10^3/uL (1.5-8.5); NEUTROPHILS % 70.3 % (36.0-66.0); PLATELET COUNT, AUTOMATED 442 10^3/uL (150-450); RED BLOOD COUNT 4.72 10^6/uL (4.00-5.40); WHITE BLOOD COUNT 16.5 10^3/uL (4.0-10.0)
[2022-07-24 09:17] LABS: INR 0.89; PROTHROMBIN TIME 12.2 SECONDS (12.5-14.5)
[2022-07-24 09:39] LABS: BLOOD UREA NITROGEN 17 MG/DL (9-23); CREATININE FOR GFR 0.74 MG/DL (0.55-1.30); GLUCOSE, FASTING 200 MG/DL (74-106)
[2022-07-24 09:40] LABS: ALBUMIN 3.5 G/DL (3.2-5.2); ALKALINE PHOSPHATASE 131 U/L (46-116); ALT/SGPT 36 U/L (7.0-40); AST/SGOT 26 U/L (<34); BILIRUBIN,DIRECT 0.1 MG/DL (<0.4); BILIRUBIN,TOTAL 0.4 MG/DL (0.3-1.2); CARBON DIOXIDE LEVEL 33 MMOL/L (20-31); CHLORIDE LEVEL 99 MMOL/L (98-107); CK-MB VALUE MASS < 1.0 NG/ML (<3.6); GLOMERULAR FILTRATION RATE > 60.0 (>45); POTASSIUM SERUM 4.2 MMOL/L (3.5-5.1); SODIUM LEVEL 140 MMOL/L (136-145); THYROID STIMULATING HORMONE 0.886 uIU/ML (0.55-4.78)
[2022-07-24 10:15] LABS: TOTAL PROTEIN 6.7 G/DL (5.7-8.2)
[2022-07-24 10:17] LABS: CK-MB VALUE MASS < 1.0 NG/ML (<3.6)
[2022-07-24 10:19] LABS: CPK CREATINE PHOSPHOKINASE 59 U/L (34-145); MB/CK RELATIVE INDEX 1.69 (< OR =4)
[2022-07-24 10:20] LABS: CPK CREATINE PHOSPHOKINASE 69 U/L (34-145); MB/CK RELATIVE INDEX 1.44 (< OR =4)
[2022-07-24] MEDS ORDERED: PRED10TA2 PO (12:13)
[2022-07-24 13:30] VITALS: BP 136/78
== END 2022-07-24 14:13 | disposition home or self-care (01) ==
LOC: M ED 08:12
DX: J96.11 Chronic respiratory failure with hypoxia (principal); J44.9 Chronic obstructive pulmonary disease, unspecified; I25.10 Atherosclerotic heart disease of native coronary artery without angina pectoris; I10 Essential (primary) hypertension; F31.9 Bipolar disorder, unspecified; K21.9 Gastro-esophageal reflux disease without esophagitis; E78.5 Hyperlipidemia, unspecified; I25.2 Old myocardial infarction; F17.200 Nicotine dependence, unspecified, uncomplicated; Z88.8 Allergy status to other drugs, medicaments and biological substances

== ENCOUNTER 2022-07-30 08:19 | Emergency (ER) | payer MEDICARE, MEDICAID ==
[~2022-07-30] VITALS: Ht 165.1 cm; Wt 104.0 kg
[2022-07-30 09:11] LABS: VENOUS BASE EXCESS 4.8 (-2.0-2.0); VENOUS HCO3 30.8 MEQ/L (23.0-27.0); VENOUS O2 SATURATION 94.2 % (60.0-80.0); VENOUS PARTIAL PRESSURE CO2 51.5 mmHg (38.0-50.0); VENOUS PARTIAL PRESSURE O2 78.8 mmHg (30.0-50.0); VENOUS PH 7.394 UNITS (7.330-7.430); VENOUS STANDARD HCO3 28.7 MEQ/L; VENOUS TOTAL CO2 32.3 MEQ/L (24.0-28.0)
[2022-07-30] MEDS ORDERED: ACETAMINOPHEN 500 MG TAB PO ONE (09:30)
[2022-07-30 09:42] LABS: BASO # 0.1 10^3/uL (0.0-0.2); BASO % 0.4 % (0.0-1.0); EOS # 0.1 10^3/uL (0.0-0.5); EOS % 0.7 % (0.0-3.0); HEMOGLOBIN 12.6 g/dl (12.0-15.5); LYMPH % 17.9 % (24.0-44.0); MEAN CORPUSCULAR HEMOGLOBIN 26.9 pg (27.0-33.0); MEAN CORPUSCULAR VOLUME 89.7 fl (80.0-96.0); MONO # 1.5 10^3/uL (0.0-0.8); MONO % 8.8 % (2.0-8.0); NEUTROPHILS # 11.8 10^3/uL (1.5-8.5); NEUTROPHILS % 70.6 % (36.0-66.0); PLATELET COUNT, AUTOMATED 432 10^3/uL (150-450); RED BLOOD COUNT 4.68 10^6/uL (4.00-5.40); WHITE BLOOD COUNT 16.7 10^3/uL (4.0-10.0)
[2022-07-30 09:55] LABS: BLOOD UREA NITROGEN 11 MG/DL (9-23); CALCIUM LEVEL 8.2 MG/DL (8.3-10.6); CARBON DIOXIDE LEVEL 33 MMOL/L (20-31); CHLORIDE LEVEL 99 MMOL/L (98-107); CREATININE FOR GFR 0.53 MG/DL (0.55-1.30); GLOMERULAR FILTRATION RATE > 60.0 (>45); GLUCOSE, FASTING 164 MG/DL (74-106); POTASSIUM SERUM 4.3 MMOL/L (3.5-5.1); SODIUM LEVEL 140 MMOL/L (136-145)
[2022-07-30] MEDS ORDERED: ISOVUE-370 76% 100ML VIAL As Ordered ONE (10:29)
[2022-07-30 10:50] VITALS: BP 156/69
[2022-07-30] MEDS ORDERED: ALPRAZolam 0.5 MG TAB PO ONE (12:00)
[2022-07-30] MEDS ORDERED: IPRATROPIUM 0.5MG/ALBUTEROL 2.5MG INH SOL UD 3ML (DUONEB) NEB ONE (12:15)
[2022-07-30] MEDS ORDERED: PRED20TA PO (12:21)
== END 2022-07-30 13:36 | disposition home or self-care (01) ==
LOC: M ED 08:19 → EDBD 08:19 → M ED 13:36
DX: J44.1 Chronic obstructive pulmonary disease with (acute) exacerbation (principal); I10 Essential (primary) hypertension; E78.5 Hyperlipidemia, unspecified; G47.33 Obstructive sleep apnea (adult) (pediatric); I25.10 Atherosclerotic heart disease of native coronary artery without angina pectoris; E11.9 Type 2 diabetes mellitus without complications; E03.9 Hypothyroidism, unspecified; G43.909 Migraine, unspecified, not intractable, without status migrainosus; F31.9 Bipolar disorder, unspecified; Z87.891 Personal history of nicotine dependence; Z88.8 Allergy status to other drugs, medicaments and biological substances; Z79.52 Long term (current) use of systemic steroids; Z79.51 Long term (current) use of inhaled steroids; Z79.899 Other long term (current) drug therapy; Z79.4 Long term (current) use of insulin; Z79.84 Long term (current) use of oral hypoglycemic drugs
CPT/HCPCS: 71045; 71275; 80048; 82803; 85025; 87486; 87581; 87633; 87798; 93005; 93041; 94640; 94760; 99285; Q9967

== ENCOUNTER → 2022-08-11 | Outpatient (CLI) | payer MEDICARE, MEDICAID | LOC: M RAD 07:10 | PROVIDERS: ATTEND Physician Assistant Medical | DX: R10.13 Epigastric pain (principal) ==

== ENCOUNTER → 2022-08-20 | Outpatient (REF) | payer MEDICARE, MEDICAID ==
[2022-08-21 14:53] LABS: ANISOCYTOSIS 1+; ATYPICAL LYMPH 3 % (0-5); LYMPHOCYTES 3 % (16-44); MONOCYTES 3 % (0-5); MYELOCYTES 1 % (0-0); NEUTROPHILS 90 % (28-66); PLATELET ESTIMATE NORMAL (NORMAL); POLYCHROMASIA 1+
== END ==
LOC: M LAB REF 11:25
PROVIDERS: ATTEND Nurse Practitioner Family
DX: D72.9 Disorder of white blood cells, unspecified (principal)

== ENCOUNTER → 2022-08-25 | Outpatient (CLI) | payer MEDICARE, MEDICAID ==
[~2022-08-25] MED LIST changes: -ASPE16CR TOP; +LIDO76.52 TOP
== END ==
LOC: M PLARAD 13:07
PROVIDERS: ATTEND Internal Medicine Pulmonary Disease
DX: Z53.9 Procedure and treatment not carried out, unspecified reason (principal)

== ENCOUNTER → 2022-09-29 | Outpatient (CLI) | payer MEDICARE, MEDICAID | LOC: M PLARAD 09:13 | PROVIDERS: ATTEND Internal Medicine Pulmonary Disease | DX: R91.8 Other nonspecific abnormal finding of lung field (principal) | CPT/HCPCS: 78815; A9552 ==

== ENCOUNTER 2022-10-14 08:13 | Emergency (ER) | payer MEDICARE, MEDICAID ==
[~2022-10-14] VITALS: Ht 165.1 cm; Wt 103.6 kg
[2022-10-14 09:06] LABS: BASO # 0.1 10^3/uL (0.0-0.2); BASO % 0.7 % (0.0-1.0); EOS # 0.2 10^3/uL (0.0-0.5); HEMATOCRIT 38.2 % (36.0-47.0); HEMOGLOBIN 11.3 g/dl (12.0-15.5); LYMPH # 2.3 10^3/uL (1.5-5.0); LYMPH % 15.8 % (24.0-44.0); MEAN CORPUSCULAR HGB CONC 29.6 g/dl (32.0-36.5); MEAN CORPUSCULAR VOLUME 91.4 fl (80.0-96.0); MONO # 1.4 10^3/uL (0.0-0.8); MONO % 9.6 % (2.0-8.0); NEUTROPHILS # 10.7 10^3/uL (1.5-8.5); PLATELET COUNT, AUTOMATED 432 10^3/uL (150-450); RED BLOOD COUNT 4.18 10^6/uL (4.00-5.40); WHITE BLOOD COUNT 14.8 10^3/uL (4.0-10.0)
[2022-10-14 09:32] LABS: ALBUMIN 3.4 G/DL (3.2-5.2); BILIRUBIN,DIRECT 0.1 MG/DL (<0.4); BILIRUBIN,TOTAL 0.4 MG/DL (0.3-1.2); BLOOD UREA NITROGEN 18 MG/DL (9-23); CALCIUM LEVEL 8.6 MG/DL (8.3-10.6); CARBON DIOXIDE LEVEL 35 MMOL/L (20-31); CHLORIDE LEVEL 101 MMOL/L (98-107); CREATININE FOR GFR 0.72 MG/DL (0.55-1.30); GLOMERULAR FILTRATION RATE > 60.0 (>45); GLUCOSE, FASTING 205 MG/DL (74-106); POTASSIUM SERUM 4.2 MMOL/L (3.5-5.1); SODIUM LEVEL 141 MMOL/L (136-145); TOTAL PROTEIN 6.4 G/DL (5.7-8.2)
[2022-10-14] MEDS ORDERED: PRED20TA PO (11:21)
[2022-10-14 11:31] VITALS: BP 141/90
== END 2022-10-14 12:13 | disposition home or self-care (01) ==
LOC: M ED 08:13
DX: J44.1 Chronic obstructive pulmonary disease with (acute) exacerbation (principal); I50.20 Unspecified systolic (congestive) heart failure; I25.10 Atherosclerotic heart disease of native coronary artery without angina pectoris; E78.5 Hyperlipidemia, unspecified; F31.9 Bipolar disorder, unspecified; E03.9 Hypothyroidism, unspecified; G47.33 Obstructive sleep apnea (adult) (pediatric); Z99.81 Dependence on supplemental oxygen; Z87.891 Personal history of nicotine dependence; Z88.8 Allergy status to other drugs, medicaments and biological substances; Z79.899 Other long term (current) drug therapy; Z79.52 Long term (current) use of systemic steroids; Z79.51 Long term (current) use of inhaled steroids; Z79.4 Long term (current) use of insulin; Z79.82 Long term (current) use of aspirin

== ENCOUNTER → 2022-11-03 | Outpatient (REF) | payer MEDICARE, MEDICAID ==
[2022-11-03 11:31] LABS: PLATELET COUNT, AUTOMATED 358 10^3/uL (150-450)
[2022-11-03 11:39] LABS: INR 0.91; PROTHROMBIN TIME 12.5 SECONDS (12.5-14.5)
[2022-11-03 11:40] LABS: PARTIAL THROMBOPLASTIN TIME 26.7 SECONDS (24.8-34.2)
== END ==
PROVIDERS: ATTEND Internal Medicine Pulmonary Disease
DX: R91.8 Other nonspecific abnormal finding of lung field (principal)

== ENCOUNTER → 2022-11-05 | Outpatient (CLI) | payer MEDICARE, MEDICAID ==
[~2022-11-05] MED LIST changes: +LIDOCAINE 1% MDV 20ML VIAL As Ordered ONE
[2022-11-05 09:20] VITALS: TEMP 97.7
[2022-11-05 11:25] VITALS: BP 127/61; O2SAT 96
== END ==
LOC: M IRPRO 08:50
PROVIDERS: ATTEND Internal Medicine Pulmonary Disease
DX: R91.8 Other nonspecific abnormal finding of lung field (principal)

== ENCOUNTER → 2022-11-19 | Outpatient (CLI) | payer MEDICARE, MEDICAID ==
[~2022-11-19] MED LIST changes: -LIDOCAINE 1% MDV 20ML VIAL As Ordered ONE
== END ==
LOC: M ONCR 10:32
PROVIDERS: ATTEND General Practice
DX: C34.32 Malignant neoplasm of lower lobe, left bronchus or lung (principal); Z87.891 Personal history of nicotine dependence; E11.9 Type 2 diabetes mellitus without complications; E78.5 Hyperlipidemia, unspecified; G47.33 Obstructive sleep apnea (adult) (pediatric); I51.9 Heart disease, unspecified; J44.9 Chronic obstructive pulmonary disease, unspecified; J30.81 Allergic rhinitis due to animal (cat) (dog) hair and dander; J30.89 Other allergic rhinitis; Z71.2 Person consulting for explanation of examination or test findings; Z79.4 Long term (current) use of insulin; Z79.51 Long term (current) use of inhaled steroids; Z79.52 Long term (current) use of systemic steroids; Z79.82 Long term (current) use of aspirin; Z79.84 Long term (current) use of oral hypoglycemic drugs; Z79.85 Long-term (current) use of injectable non-insulin antidiabetic drugs; Z79.899 Other long term (current) drug therapy; Z88.8 Allergy status to other drugs, medicaments and biological substances

== ENCOUNTER 2022-11-24 07:33 | Inpatient (IN) | payer MEDICARE, MEDICAID ==
[~2022-11-24] VITALS: Ht 165.1 cm; Wt 103.0 kg
[~2022-11-24 07:33] MED LIST changes: -HUMA100I5 SC; +HUMA100I5 SUBQ; +LANTINJ4 SUBQ
[2022-11-24] MEDS ORDERED: dexAMETHasone 20MG/5ML VIAL As Ordered ONE (07:48)
[2022-11-24] MEDS ORDERED: IPRATROPIUM 0.5MG/ALBUTEROL 2.5MG INH SOL UD 3ML (DUONEB) As Ordered ONE (07:48)
[2022-11-24] MEDS: IPRATROPIUM 0.5MG/ALBUTEROL 2.5MG INH SOL UD 3ML (DUONEB) NEB SCH ×3 (08:20→08:58)
[2022-11-24 09:16] LABS: BASO # 0.1 10^3/uL (0.0-0.2); BASO % 0.7 % (0.0-1.0); EOS # 0.1 10^3/uL (0.0-0.5); EOS % 0.7 % (0.0-3.0); HEMATOCRIT 38.3 % (36.0-47.0); HEMOGLOBIN 11.5 g/dl (12.0-15.5); LYMPH # 1.8 10^3/uL (1.5-5.0); LYMPH % 9.4 % (24.0-44.0); MEAN CORPUSCULAR HEMOGLOBIN 26.9 pg (27.0-33.0); MEAN CORPUSCULAR VOLUME 89.7 fl (80.0-96.0); MONO # 1.2 10^3/uL (0.0-0.8); NEUTROPHILS # 15.8 10^3/uL (1.5-8.5); NEUTROPHILS % 82.1 % (36.0-66.0); PLATELET COUNT, AUTOMATED 465 10^3/uL (150-450); RED BLOOD COUNT 4.27 10^6/uL (4.00-5.40); WHITE BLOOD COUNT 19.3 10^3/uL (4.0-10.0)
[2022-11-24 09:58] LABS: BLOOD UREA NITROGEN 15 MG/DL (9-23); CALCIUM LEVEL 8.9 MG/DL (8.3-10.6); CARBON DIOXIDE LEVEL 35 MMOL/L (20-31); CHLORIDE LEVEL 98 MMOL/L (98-107); CREATININE FOR GFR 0.56 MG/DL (0.55-1.30); GLOMERULAR FILTRATION RATE > 60.0 (>45); GLUCOSE, FASTING 234 MG/DL (74-106); POTASSIUM SERUM 3.8 MMOL/L (3.5-5.1); SODIUM LEVEL 139 MMOL/L (136-145)
[2022-11-24] MEDS ORDERED: ISOVUE-370 76% 100ML VIAL As Ordered ONE (10:13)
[2022-11-24] MEDS ORDERED: ACETAMINOPHEN TAB 650MG DOSE (2X325MG) PO ONE (10:55)
[2022-11-24] MEDS ORDERED: ACETAMINOPHEN TAB 650MG DOSE (2X325MG) PO PRN (12:10)
[2022-11-24] MEDS ORDERED: MOM 30ML SUSPENSION UDC PO PRN (12:10)
[2022-11-24] MEDS ORDERED: MED REC CURRENTLY UNOBTAINABLE XX SCH (13:10)
[2022-11-24] MEDS: AZITHROMYCIN 250MG TABLET PO SCH (13:32)
[2022-11-24] MEDS: CEFEPIME HCL 2 GM in D5W MINI-BAG PLUS 50 ML IV SCH ×2 (13:55→21:10)
[2022-11-24] MEDS ORDERED: MED REC IN PROGRESS XX SCH (14:30)
[2022-11-24] MEDS ORDERED: GLUCOSE 4GM CHEW TABLET PO PRN (14:45)
[2022-11-24] MEDS ORDERED: GLUCAGON INJ 1MG VIAL SC PRN (14:45)
[2022-11-24] MEDS ORDERED: DEXTROSE 50% 50ML SYRINGE IV PRN (14:45)
[2022-11-24] MEDS ORDERED: FAMO20TA4 PO (15:00)
[2022-11-24] MEDS ORDERED: BUPR150T12 PO (15:00)
[2022-11-24] MEDS ORDERED: HYDR-3363 PO (15:08)
[2022-11-24] MEDS ORDERED: SEMA2PEN SQ (15:23)
[2022-11-24] MEDS ORDERED: GNP1SOL5 AU (15:23)
[2022-11-24] MEDS ORDERED: PANT40TA29 PO (15:28)
[2022-11-24] MEDS ORDERED: SPIR-10 PO (15:36)
[2022-11-24] MEDS ORDERED: SPIR1CAP PO (15:36)
[2022-11-24] MEDS ORDERED: CHOL125C6 PO (15:44)
[2022-11-24] MEDS ORDERED: ALPR1TAB3 PO (15:44)
[2022-11-24] MEDS ORDERED: FLUT1BLS6 PO (15:44)
[2022-11-24] MEDS ORDERED: GABA-1171 PO (15:48)
[2022-11-24 15:55] VITALS: O2SAT 93
[2022-11-24] MEDS ORDERED: NYST-13 TOP (15:57)
[2022-11-24] MEDS ORDERED: METR1GEL TOP (15:57)
[2022-11-24 16:02] LABS: ABG BASE EXCESS 6.4 (-2.0-2.0); ABG HCO3 31.7 MMOL/L (22.0-26.0); ABG PARTIAL PRESSURE O2 75.5 mmHg (75.0-100.0); ABG STANDARD HCO3 30.2 MMOL/L. (22.0-26.0); ABG TOTAL CO2 33.1 MMOL/L (23.0-31.0); ABG pH (ARTERIAL) 7.437 UNITS (7.350-7.450)
[2022-11-24] MEDS ORDERED: HYDR-4514 PO (16:09)
[2022-11-24] MEDS ORDERED: POTA20EL PO (16:09)
[2022-11-24] MEDS ORDERED: ARTIDRO4 OU (16:09)
[2022-11-24] MEDS ORDERED: CYCL5TAB PO (16:13)
[2022-11-24] MEDS ORDERED: ONDA-83 PO (16:24)
[2022-11-24] MEDS ORDERED: DIAZ2TAB PO (16:24)
[2022-11-24] MEDS ORDERED: LIDO1PAD TOP (16:24)
[2022-11-24] MEDS ORDERED: SIME1CHW5 PO (16:24)
[2022-11-24] MEDS ORDERED: HOME MED LIST COMPLETE! XX SCH (16:40)
[2022-11-24 17:33] VITALS: BP 148/87; TEMP 98.1; O2SAT 94
[2022-11-24] MEDS: INSULIN LISPRO (NovoLOG) PER UNIT SC SCH ×3 (18:39→20:58)
[2022-11-24 20:00] VITALS: BP 152/73; TEMP 97.6; O2SAT 94
[2022-11-24] MEDS: DOCUSATE SODIUM 100MG CAPSULE PO SCH (20:57)
[2022-11-24] MEDS: LEVEMIR (INSULIN DETEMIR) 1 UNITS/0.01ML SC SCH (20:58)
[2022-11-24] MEDS ORDERED: ALPRAZolam 0.5 MG TAB PO PRN (21:35)
[2022-11-24] MEDS: ALPRAZolam 0.5 MG TAB PO SCH (21:55)
[2022-11-24] MEDS: CYCLOBENZAPRINE 5MG TABLET PO PRN (21:55)
[2022-11-24] MEDS: ANEXSIA, NORCO 7.5MG/325MG TABLET(HYDROCODONE/APAP) PO SCH (21:56)
[2022-11-25 00:17] VITALS: BP 135/61; TEMP 96.2; O2SAT 96
[2022-11-25 04:07] VITALS: BP 149/82; TEMP 96.9; O2SAT 97
[2022-11-25 05:29] LABS: ABG BASE EXCESS 8.5 (-2.0-2.0); ABG HCO3 33.7 MMOL/L (22.0-26.0); ABG O2 SATURATION 96.8 % (95.0-99.0); ABG PARTIAL PRESSURE CO2 49.9 mmHg (35.0-45.0); ABG PARTIAL PRESSURE O2 128.2 mmHg (75.0-100.0); ABG STANDARD HCO3 32.2 MMOL/L. (22.0-26.0); ABG TOTAL CO2 35.3 MMOL/L (23.0-31.0); ABG pH (ARTERIAL) 7.448 UNITS (7.350-7.450)
[2022-11-25] MEDS: HEPARIN SOD (PORCINE) 5000UNITS/ML 1ML VIAL/SYRINGE SQ SCH ×3 (05:31→21:11)
[2022-11-25] MEDS: CEFEPIME HCL 2 GM in D5W MINI-BAG PLUS 50 ML IV SCH ×3 (05:32→21:11)
[2022-11-25 06:52] LABS: BASO # 0.1 10^3/uL (0.0-0.2); BASO % 0.4 % (0.0-1.0); EOS % 0.1 % (0.0-3.0); HEMATOCRIT 36.9 % (36.0-47.0); LYMPH # 1.5 10^3/uL (1.5-5.0); LYMPH % 12.7 % (24.0-44.0); MEAN CORPUSCULAR HEMOGLOBIN 26.1 pg (27.0-33.0); MEAN CORPUSCULAR HGB CONC 29.8 g/dl (32.0-36.5); MEAN CORPUSCULAR VOLUME 87.6 fl (80.0-96.0); MONO # 1.3 10^3/uL (0.0-0.8); MONO % 11.2 % (2.0-8.0); NEUTROPHILS # 8.8 10^3/uL (1.5-8.5); NEUTROPHILS % 74.7 % (36.0-66.0); PLATELET COUNT, AUTOMATED 479 10^3/uL (150-450); RED BLOOD COUNT 4.21 10^6/uL (4.00-5.40); WHITE BLOOD COUNT 11.7 10^3/uL (4.0-10.0)
[2022-11-25 07:03] LABS: PLATELET ESTIMATE NORMAL (NORMAL)
[2022-11-25 07:17] LABS: BLOOD UREA NITROGEN 13 MG/DL (9-23); CALCIUM LEVEL 9.8 MG/DL (8.3-10.6); CARBON DIOXIDE LEVEL 36 MMOL/L (20-31); CHLORIDE LEVEL 98 MMOL/L (98-107); CREATININE FOR GFR 0.46 MG/DL (0.55-1.30); GLOMERULAR FILTRATION RATE > 60.0 (>45); GLUCOSE, FASTING 198 MG/DL (74-106); POTASSIUM SERUM 3.5 MMOL/L (3.5-5.1); SODIUM LEVEL 140 MMOL/L (136-145)
[2022-11-25] MEDS: INSULIN LISPRO (NovoLOG) PER UNIT SC SCH ×7 (07:30→20:57)
[2022-11-25] MEDS ORDERED: LIDOCAINE 5% (LIDODERM) PATCH TOP PRN (07:35)
[2022-11-25] MEDS ORDERED: LEVALBUTEROL 1.25MG/3ML NEB SOLN NEB PRN (07:35)
[2022-11-25] MEDS ORDERED: ALBUTEROL 90 MCG/ACT 8GM HFA INHALER INH PRN (07:35)
[2022-11-25 07:36] VITALS: BP 154/75; TEMP 97; O2SAT 97
[2022-11-25] MEDS: TIOTROPIUM INHALER/CAPSULE (SPIRIVA) INH SCH (08:28)
[2022-11-25] MEDS: IPRATROPIUM 0.5MG/ALBUTEROL 2.5MG INH SOL UD 3ML (DUONEB) INH SCH ×4 (08:28→19:35)
[2022-11-25] MEDS: ADVAIR HFA 115/21MCG INHALER INH SCH ×2 (08:28→19:35)
[2022-11-25] MEDS ORDERED: PANTOPRAZOLE 40MG TAB (PROTONIX) PO SCH (09:00)
[2022-11-25] MEDS: NYSTATIN CREAM 15GM TOP SCH ×2 (09:00→20:57)
[2022-11-25] MEDS: GABAPENTIN 100 MG CAP PO SCH ×2 (09:43→20:56)
[2022-11-25] MEDS: ALPRAZolam 0.5 MG TAB PO SCH ×2 (09:43→18:31)
[2022-11-25] MEDS: AZITHROMYCIN 250MG TABLET PO SCH (09:43)
[2022-11-25] MEDS: DOCUSATE SODIUM 100MG CAPSULE PO SCH ×2 (09:44→20:56)
[2022-11-25] MEDS: BISOPROLOL FUM 2.5 MG PER 1/2TAB PO SCH (09:44)
[2022-11-25] MEDS: CALCIUM CARBONATE 500 MG CHEW U/D PO SCH ×4 (09:44→20:55)
[2022-11-25] MEDS: buPROPion **XL** TABLET 150MG (WELLBUTRIN XL) PO SCH (09:44)
[2022-11-25] MEDS: POTASSIUM CHLORIDE 10% LIQ 20MEQ/15ML UDC PO SCH ×2 (09:44→20:57)
[2022-11-25] MEDS: MAGNESIUM OXIDE 400MG TAB (MAG-OX) PO SCH ×2 (09:44→20:56)
[2022-11-25] MEDS: POLYVINYL ALCOHOL OPHTH SOLN 15ML (LIQUITEARS) OU SCH ×4 (09:44→20:57)
[2022-11-25] MEDS: ASPIRIN 81MG ENTERIC TABLET PO SCH (09:45)
[2022-11-25] MEDS: SPIRONOLACTONE 25 MG TAB PO SCH (09:45)
[2022-11-25] MEDS: CYCLOBENZAPRINE 5MG TABLET PO PRN (09:45)
[2022-11-25] MEDS: FLUoxetine 10 MG CAP PO SCH (09:45)
[2022-11-25] MEDS: ANEXSIA, NORCO 7.5MG/325MG TABLET(HYDROCODONE/APAP) PO SCH ×3 (09:45→20:55)
[2022-11-25] MEDS: predniSONE 10MG TAB PO SCH (09:45)
[2022-11-25] MEDS: TORSEMIDE 100 MG TAB PO SCH (09:46)
[2022-11-25] MEDS: LEVOTHYROXINE 25MCG TABLET (0.025MG) PO SCH (09:47)
[2022-11-25 11:13] LABS: LDH LACTATE DEHYDROGENASE 191 U/L (120-246)
[2022-11-25 12:59] VITALS: BP 139/75; TEMP 98.4; O2SAT 95
[2022-11-25 15:38] VITALS: BP 138/90; TEMP 96.9; O2SAT 97
[2022-11-25 20:50] VITALS: BP 131/63; TEMP 96.8; O2SAT 97
[2022-11-25] MEDS: LEVEMIR (INSULIN DETEMIR) 1 UNITS/0.01ML SC SCH (20:54)
[2022-11-25] MEDS: ATORVASTATIN 20 MG TAB PO SCH (20:56)
[2022-11-25] MEDS: FAMOTIDINE 20 MG TAB PO SCH (20:56)
[2022-11-26 00:49] VITALS: BP 137/67; TEMP 97.8; O2SAT 96
[2022-11-26] MEDS: ACETAMINOPHEN TAB 650MG DOSE (2X325MG) PO PRN (02:44)
[2022-11-26 04:36] VITALS: BP 152/73; TEMP 97; O2SAT 97
[2022-11-26] MEDS: CEFEPIME HCL 2 GM in D5W MINI-BAG PLUS 50 ML IV SCH ×3 (05:28→21:35)
[2022-11-26] MEDS: TORSEMIDE 100 MG TAB PO SCH (05:28)
[2022-11-26] MEDS: LEVOTHYROXINE 25MCG TABLET (0.025MG) PO SCH (05:28)
[2022-11-26] MEDS: HEPARIN SOD (PORCINE) 5000UNITS/ML 1ML VIAL/SYRINGE SQ SCH ×4 (05:28→21:34)
[2022-11-26 06:01] LABS: BASO # 0.1 10^3/uL (0.0-0.2); BASO % 0.8 % (0.0-1.0); EOS # 0.1 10^3/uL (0.0-0.5); EOS % 1.2 % (0.0-3.0); HEMATOCRIT 35.4 % (36.0-47.0); HEMOGLOBIN 10.7 g/dl (12.0-15.5); LYMPH # 2.3 10^3/uL (1.5-5.0); LYMPH % 20.3 % (24.0-44.0); MEAN CORPUSCULAR HEMOGLOBIN 26.5 pg (27.0-33.0); MEAN CORPUSCULAR HGB CONC 30.2 g/dl (32.0-36.5); MEAN CORPUSCULAR VOLUME 87.6 fl (80.0-96.0); MONO # 1.5 10^3/uL (0.0-0.8); MONO % 13.5 % (2.0-8.0); NEUTROPHILS # 7.1 10^3/uL (1.5-8.5); NEUTROPHILS % 63.5 % (36.0-66.0); PLATELET COUNT, AUTOMATED 456 10^3/uL (150-450); RED BLOOD COUNT 4.04 10^6/uL (4.00-5.40); WHITE BLOOD COUNT 11.1 10^3/uL (4.0-10.0)
[2022-11-26 06:20] LABS: BLOOD UREA NITROGEN 17 MG/DL (9-23); CALCIUM LEVEL 10.5 MG/DL (8.3-10.6); CARBON DIOXIDE LEVEL 36 MMOL/L (20-31); CHLORIDE LEVEL 95 MMOL/L (98-107); GLOMERULAR FILTRATION RATE > 60.0 (>45); GLUCOSE, FASTING 160 MG/DL (74-106); POTASSIUM SERUM 3.4 MMOL/L (3.5-5.1); SODIUM LEVEL 139 MMOL/L (136-145)
[2022-11-26] MEDS: INSULIN LISPRO (NovoLOG) PER UNIT SC SCH ×7 (07:30→21:37)
[2022-11-26] MEDS: IPRATROPIUM 0.5MG/ALBUTEROL 2.5MG INH SOL UD 3ML (DUONEB) INH SCH ×4 (07:47→19:26)
[2022-11-26] MEDS: TIOTROPIUM INHALER/CAPSULE (SPIRIVA) INH SCH (07:47)
[2022-11-26] MEDS: ADVAIR HFA 115/21MCG INHALER INH SCH ×2 (07:47→19:26)
[2022-11-26 08:00] VITALS: BP 148/71; TEMP 98.1; O2SAT 97
[2022-11-26] MEDS: NYSTATIN CREAM 15GM TOP SCH ×2 (09:00→21:37)
[2022-11-26] MEDS: DOCUSATE SODIUM 100MG CAPSULE PO SCH ×2 (09:00→21:34)
[2022-11-26] MEDS: predniSONE 50 MG TAB PO SCH (09:00)
[2022-11-26] MEDS: SPIRONOLACTONE 25 MG TAB PO SCH (09:00)
[2022-11-26] MEDS: POTASSIUM CHLORIDE 10% LIQ 20MEQ/15ML UDC PO SCH ×2 (09:11→21:34)
[2022-11-26] MEDS: ASPIRIN 81MG ENTERIC TABLET PO SCH (09:11)
[2022-11-26] MEDS: CALCIUM CARBONATE 500 MG CHEW U/D PO SCH ×4 (09:12→21:33)
[2022-11-26] MEDS: MAGNESIUM OXIDE 400MG TAB (MAG-OX) PO SCH ×2 (09:12→21:34)
[2022-11-26] MEDS: BISOPROLOL FUM 2.5 MG PER 1/2TAB PO SCH (09:13)
[2022-11-26] MEDS: ALPRAZolam 0.5 MG TAB PO SCH ×2 (09:13→17:53)
[2022-11-26] MEDS: FLUoxetine 10 MG CAP PO SCH (09:14)
[2022-11-26] MEDS: ANEXSIA, NORCO 7.5MG/325MG TABLET(HYDROCODONE/APAP) PO SCH ×3 (09:14→21:33)
[2022-11-26] MEDS: GABAPENTIN 100 MG CAP PO SCH ×2 (09:14→21:33)
[2022-11-26] MEDS: buPROPion **XL** TABLET 150MG (WELLBUTRIN XL) PO SCH (09:14)
[2022-11-26] MEDS: POLYVINYL ALCOHOL OPHTH SOLN 15ML (LIQUITEARS) OU SCH ×4 (09:14→21:37)
[2022-11-26] MEDS: AZITHROMYCIN 250MG TABLET PO SCH (09:14)
[2022-11-26] MEDS: predniSONE 10MG TAB PO SCH (09:15)
[2022-11-26] MEDS: CYCLOBENZAPRINE 5MG TABLET PO PRN (09:27)
[2022-11-26 15:16] VITALS: BP 138/63; TEMP 97.8; O2SAT 97
[2022-11-26] MEDS ORDERED: LIDOCAINE 1% MDV 20ML VIAL As Ordered ONE (16:06)
[2022-11-26 18:58] LABS: PH BODY FLUID 7.658 UNITS (NOT ESTABLISHED); SOURCE, BODY FLUID pH PLEURAL
[2022-11-26 19:02] LABS: APPEARANCE, BODY FLUID CLOUDY (CLEAR); PLEURAL FL COLOR YELLOW (COLORLESS); SOURCE, BODY FLUID PLEURAL
[2022-11-26 19:29] LABS: SOURCE, BODY FLUID ALBUMIN PLEURAL
[2022-11-26 19:34] LABS: SOURCE, BODY FLUID GLUCOSE PLEURAL; SOURCE, BODY FLUID TRIG PLEURAL; TRIGLYCERIDE, BODY FLUID 75 MG/DL (NOT ESTABLISHED)
[2022-11-26 19:36] LABS: AMYLASE, BODY FLUID 98 U/L (NOT ESTABLISHED); CHOLESTEROL, BODY FLUID 70 MG/DL (NOT ESTABLISHED); LDH, BODY FLUID 291 U/L (NOT ESTABLISHED); SOURCE, BODY FLUID AMYLASE PLEURAL; SOURCE, BODY FLUID CHOL PLEURAL; SOURCE, BODY FLUID LDH PLEURAL; SOURCE, BODY FLUID TOT PROTEIN PLEURAL; TOTAL PROTEIN, BODY FLUID 4.6 G/DL (NOT ESTABLISHED)
[2022-11-26 20:00] VITALS: BP 134/78; TEMP 97.6; O2SAT 96
[2022-11-26] MEDS: ATORVASTATIN 20 MG TAB PO SCH (21:33)
[2022-11-26] MEDS: FAMOTIDINE 20 MG TAB PO SCH (21:34)
[2022-11-26] MEDS: LEVEMIR (INSULIN DETEMIR) 1 UNITS/0.01ML SC SCH (21:36)
[2022-11-26 23:53] VITALS: BP 133/60; TEMP 96.8; O2SAT 98
[2022-11-27] MEDS ORDERED: CALCIUM CARBONATE 500 MG CHEW U/D PO ONE (03:30)
[2022-11-27] MEDS: ONDANSETRON 4MG TAB PO PRN (03:42)
[2022-11-27] MEDS: ACETAMINOPHEN TAB 650MG DOSE (2X325MG) PO PRN (03:43)
[2022-11-27 03:54] VITALS: BP 158/89; TEMP 96.9; O2SAT 97
[2022-11-27 05:50] LABS: BASO # 0.1 10^3/uL (0.0-0.2); BASO % 0.5 % (0.0-1.0); EOS % 0.3 % (0.0-3.0); HEMATOCRIT 34.6 % (36.0-47.0); HEMOGLOBIN 10.7 g/dl (12.0-15.5); LYMPH # 1.9 10^3/uL (1.5-5.0); LYMPH % 15.9 % (24.0-44.0); MEAN CORPUSCULAR HEMOGLOBIN 26.7 pg (27.0-33.0); MEAN CORPUSCULAR HGB CONC 30.9 g/dl (32.0-36.5); MEAN CORPUSCULAR VOLUME 86.3 fl (80.0-96.0); NEUTROPHILS # 8.2 10^3/uL (1.5-8.5); NEUTROPHILS % 68.6 % (36.0-66.0); PLATELET COUNT, AUTOMATED 413 10^3/uL (150-450); RED BLOOD COUNT 4.01 10^6/uL (4.00-5.40); WHITE BLOOD COUNT 11.9 10^3/uL (4.0-10.0)
[2022-11-27] MEDS: TORSEMIDE 100 MG TAB PO SCH ×2 (06:00→09:16)
[2022-11-27 06:27] LABS: BLOOD UREA NITROGEN 19 MG/DL (9-23); CALCIUM LEVEL 9.1 MG/DL (8.3-10.6); CARBON DIOXIDE LEVEL 37 MMOL/L (20-31); CHLORIDE LEVEL 97 MMOL/L (98-107); CREATININE FOR GFR 0.56 MG/DL (0.55-1.30); GLOMERULAR FILTRATION RATE > 60.0 (>45); GLUCOSE, FASTING 173 MG/DL (74-106); POTASSIUM SERUM 3.4 MMOL/L (3.5-5.1); SODIUM LEVEL 139 MMOL/L (136-145)
[2022-11-27 06:38] LABS: MONO # 1.7 10^3/uL (0.0-0.8)
[2022-11-27] MEDS: CEFEPIME HCL 2 GM in D5W MINI-BAG PLUS 50 ML IV SCH ×3 (06:42→23:41)
[2022-11-27] MEDS: HEPARIN SOD (PORCINE) 5000UNITS/ML 1ML VIAL/SYRINGE SQ SCH ×3 (06:42→21:48)
[2022-11-27] MEDS: LEVOTHYROXINE 25MCG TABLET (0.025MG) PO SCH (06:42)
[2022-11-27] MEDS ORDERED: INSULIN LISPRO (NovoLOG) PER UNIT SC SCH ×3 (07:30→17:30)
[2022-11-27 07:36] LABS: ALBUMIN 3.1 G/DL (3.2-5.2); ALKALINE PHOSPHATASE 99 U/L (46-116); ALT/SGPT 38 U/L (7.0-40); AST/SGOT 43 U/L (<34); BILIRUBIN,DIRECT 0.2 MG/DL (<0.4); BILIRUBIN,TOTAL 0.5 MG/DL (0.3-1.2); TOTAL PROTEIN 5.9 G/DL (5.7-8.2)
[2022-11-27] MEDS ORDERED: POTASSIUM CHLORIDE 10MEQ SR TABLET PO ONE (08:00)
[2022-11-27] MEDS: TIOTROPIUM INHALER/CAPSULE (SPIRIVA) INH SCH (08:15)
[2022-11-27] MEDS: ADVAIR HFA 115/21MCG INHALER INH SCH ×2 (08:16→19:49)
[2022-11-27] MEDS: IPRATROPIUM 0.5MG/ALBUTEROL 2.5MG INH SOL UD 3ML (DUONEB) INH SCH ×4 (08:16→19:49)
[2022-11-27 08:52] VITALS: BP 131/61; TEMP 96.9; O2SAT 92
[2022-11-27] MEDS: POLYVINYL ALCOHOL OPHTH SOLN 15ML (LIQUITEARS) OU SCH ×4 (09:07→21:45)
[2022-11-27] MEDS: NYSTATIN CREAM 15GM TOP SCH ×2 (09:08→21:45)
[2022-11-27] MEDS: INSULIN LISPRO (NovoLOG) PER UNIT SC SCH ×4 (09:08→20:47)
[2022-11-27] MEDS: AZITHROMYCIN 250MG TABLET PO SCH (09:09)
[2022-11-27] MEDS: ASPIRIN 81MG ENTERIC TABLET PO SCH (09:09)
[2022-11-27] MEDS: POTASSIUM CHLORIDE 10% LIQ 20MEQ/15ML UDC PO SCH ×2 (09:09→21:44)
[2022-11-27] MEDS: CALCIUM CARBONATE 500 MG CHEW U/D PO SCH ×4 (09:10→21:44)
[2022-11-27] MEDS: ALPRAZolam 0.5 MG TAB PO SCH ×2 (09:10→17:23)
[2022-11-27] MEDS: BISOPROLOL FUM 2.5 MG PER 1/2TAB PO SCH (09:10)
[2022-11-27] MEDS: SPIRONOLACTONE 25 MG TAB PO SCH (09:11)
[2022-11-27] MEDS: FLUoxetine 10 MG CAP PO SCH (09:11)
[2022-11-27] MEDS: predniSONE 50 MG TAB PO SCH (09:16)
[2022-11-27] MEDS: DOCUSATE SODIUM 100MG CAPSULE PO SCH ×2 (09:16→21:45)
[2022-11-27] MEDS: ANEXSIA, NORCO 7.5MG/325MG TABLET(HYDROCODONE/APAP) PO SCH ×3 (09:16→23:41)
[2022-11-27] MEDS: MAGNESIUM OXIDE 400MG TAB (MAG-OX) PO SCH ×2 (09:17→21:45)
[2022-11-27] MEDS: GABAPENTIN 100 MG CAP PO SCH ×2 (09:17→21:45)
[2022-11-27] MEDS: buPROPion **XL** TABLET 150MG (WELLBUTRIN XL) PO SCH (09:17)
[2022-11-27] MEDS ORDERED: ALTEPLASE 2MG/2ML VIAL XX ONE (09:30)
[2022-11-27] MEDS: CYCLOBENZAPRINE 5MG TABLET PO PRN (10:16)
[2022-11-27] MEDS ORDERED: LIDOCAINE 1% MDV 20ML VIAL As Ordered ONE (14:38)
[2022-11-27 16:49] VITALS: BP 117/64; TEMP 97.2; O2SAT 94
[2022-11-27] MEDS ORDERED: SODIUM CHLORIDE 0.9% INJ 10 ML SYR IV PRN (18:45)
[2022-11-27 20:00] VITALS: BP 159/69; TEMP 96.7; O2SAT 97
[2022-11-27] MEDS ORDERED: LORazepam 0.5 MG TAB PO ONE (21:15)
[2022-11-27] MEDS ORDERED: PILL CUTTER 1 EACH XX PRN (21:20)
[2022-11-27] MEDS: ATORVASTATIN 20 MG TAB PO SCH (21:44)
[2022-11-27] MEDS: LEVEMIR (INSULIN DETEMIR) 1 UNITS/0.01ML SC SCH (21:44)
[2022-11-27] MEDS: FAMOTIDINE 20 MG TAB PO SCH (21:45)
[2022-11-28] VITALS (7 sets, daily range): BP systolic 134–151; BP diastolic 61–70; TEMP 96.3–97.8; O2SAT 92–98
[2022-11-28] MEDS: CEFEPIME HCL 2 GM in D5W MINI-BAG PLUS 50 ML IV SCH (05:08)
[2022-11-28] MEDS: SODIUM CHLORIDE 0.9% INJ 10 ML SYR IV SCH ×2 (05:08→17:37)
[2022-11-28] MEDS: LEVOTHYROXINE 25MCG TABLET (0.025MG) PO SCH (05:09)
[2022-11-28] MEDS: HEPARIN SOD (PORCINE) 5000UNITS/ML 1ML VIAL/SYRINGE SQ SCH ×4 (05:09→20:58)
[2022-11-28 06:06] LABS: BASO # 0.1 10^3/uL (0.0-0.2); BASO % 0.5 % (0.0-1.0); EOS # 0.1 10^3/uL (0.0-0.5); EOS % 0.5 % (0.0-3.0); HEMATOCRIT 34.8 % (36.0-47.0); HEMOGLOBIN 10.5 g/dl (12.0-15.5); LYMPH # 2.3 10^3/uL (1.5-5.0); LYMPH % 17.2 % (24.0-44.0); MEAN CORPUSCULAR HEMOGLOBIN 26.6 pg (27.0-33.0); MEAN CORPUSCULAR HGB CONC 30.2 g/dl (32.0-36.5); MEAN CORPUSCULAR VOLUME 88.1 fl (80.0-96.0); MONO % 12.6 % (2.0-8.0); NEUTROPHILS % 68.5 % (36.0-66.0); PLATELET COUNT, AUTOMATED 435 10^3/uL (150-450); RED BLOOD COUNT 3.95 10^6/uL (4.00-5.40); WHITE BLOOD COUNT 13.1 10^3/uL (4.0-10.0)
[2022-11-28 06:37] LABS: BLOOD UREA NITROGEN 24 MG/DL (9-23); CARBON DIOXIDE LEVEL 34 MMOL/L (20-31); CHLORIDE LEVEL 97 MMOL/L (98-107); GLOMERULAR FILTRATION RATE > 60.0 (>45); GLUCOSE, FASTING 201 MG/DL (74-106); POTASSIUM SERUM 3.9 MMOL/L (3.5-5.1); SODIUM LEVEL 138 MMOL/L (136-145)
[2022-11-28 06:58] LABS: MONO # 1.7 10^3/uL (0.0-0.8)
[2022-11-28] MEDS: ADVAIR HFA 115/21MCG INHALER INH SCH ×2 (08:09→20:04)
[2022-11-28] MEDS: TIOTROPIUM INHALER/CAPSULE (SPIRIVA) INH SCH (08:09)
[2022-11-28] MEDS: IPRATROPIUM 0.5MG/ALBUTEROL 2.5MG INH SOL UD 3ML (DUONEB) INH SCH ×4 (08:09→20:00)
[2022-11-28] MEDS: ASPIRIN 81MG ENTERIC TABLET PO SCH (08:38)
[2022-11-28] MEDS: POTASSIUM CHLORIDE 10% LIQ 20MEQ/15ML UDC PO SCH ×2 (08:38→20:58)
[2022-11-28] MEDS: BISOPROLOL FUM 2.5 MG PER 1/2TAB PO SCH (08:39)
[2022-11-28] MEDS: CALCIUM CARBONATE 500 MG CHEW U/D PO SCH ×4 (08:39→20:59)
[2022-11-28] MEDS: DOCUSATE SODIUM 100MG CAPSULE PO SCH ×2 (08:39→20:59)
[2022-11-28] MEDS: FLUoxetine 10 MG CAP PO SCH (08:39)
[2022-11-28] MEDS: buPROPion **XL** TABLET 150MG (WELLBUTRIN XL) PO SCH (08:39)
[2022-11-28] MEDS: predniSONE 50 MG TAB PO SCH (08:39)
[2022-11-28] MEDS: MAGNESIUM OXIDE 400MG TAB (MAG-OX) PO SCH ×2 (08:39→20:59)
[2022-11-28] MEDS: SPIRONOLACTONE 25 MG TAB PO SCH (08:39)
[2022-11-28] MEDS: POLYVINYL ALCOHOL OPHTH SOLN 15ML (LIQUITEARS) OU SCH ×4 (08:40→21:01)
[2022-11-28] MEDS: ANEXSIA, NORCO 7.5MG/325MG TABLET(HYDROCODONE/APAP) PO SCH ×3 (08:40→21:00)
[2022-11-28] MEDS: ALPRAZolam 0.5 MG TAB PO SCH ×2 (08:40→17:35)
[2022-11-28] MEDS: NYSTATIN CREAM 15GM TOP SCH ×2 (08:41→21:01)
[2022-11-28] MEDS: INSULIN LISPRO (NovoLOG) PER UNIT SC SCH ×6 (08:42→20:59)
[2022-11-28] MEDS: GABAPENTIN 100 MG CAP PO SCH ×2 (08:43→20:59)
[2022-11-28] MEDS: CYCLOBENZAPRINE 5MG TABLET PO PRN (08:53)
[2022-11-28] MEDS: ONDANSETRON 4MG TAB PO PRN (11:58)
[2022-11-28] MEDS ORDERED: INSULIN LISPRO (NovoLOG) PER UNIT SC SCH (12:00)
[2022-11-28] MEDS ORDERED: LEVO1TAB40 PO (13:53)
[2022-11-28] MEDS ORDERED: PRED10TA2 PO ×2 (13:53)
[2022-11-28] MEDS: LevoFLOXacin 750 MG TABLET PO SCH (15:06)
[2022-11-28] MEDS: FAMOTIDINE 20 MG TAB PO SCH (20:59)
[2022-11-28] MEDS: ATORVASTATIN 20 MG TAB PO SCH (20:59)
[2022-11-28] MEDS: LEVEMIR (INSULIN DETEMIR) 1 UNITS/0.01ML SC SCH (21:00)
[2022-11-29 06:37] VITALS: BP 136/74; TEMP 97.3; O2SAT 95
[2022-11-29] MEDS: ACETAMINOPHEN TAB 650MG DOSE (2X325MG) PO PRN (06:49)
[2022-11-29] MEDS: LEVOTHYROXINE 25MCG TABLET (0.025MG) PO SCH (06:49)
[2022-11-29] MEDS: TORSEMIDE 100 MG TAB PO SCH (06:50)
[2022-11-29] MEDS: LevoFLOXacin 750 MG TABLET PO SCH (06:50)
[2022-11-29] MEDS: HEPARIN SOD (PORCINE) 5000UNITS/ML 1ML VIAL/SYRINGE SQ SCH ×3 (06:50→20:51)
[2022-11-29] MEDS: SODIUM CHLORIDE 0.9% INJ 10 ML SYR IV SCH ×2 (06:50→17:34)
[2022-11-29] MEDS: IPRATROPIUM 0.5MG/ALBUTEROL 2.5MG INH SOL UD 3ML (DUONEB) INH SCH ×4 (07:22→21:58)
[2022-11-29] MEDS: TIOTROPIUM INHALER/CAPSULE (SPIRIVA) INH SCH (07:22)
[2022-11-29] MEDS: ADVAIR HFA 115/21MCG INHALER INH SCH ×2 (07:23→21:57)
[2022-11-29] MEDS: POTASSIUM CHLORIDE 10% LIQ 20MEQ/15ML UDC PO SCH ×2 (08:56→20:49)
[2022-11-29] MEDS: INSULIN LISPRO (NovoLOG) PER UNIT SC SCH ×7 (08:57→20:52)
[2022-11-29] MEDS: CALCIUM CARBONATE 500 MG CHEW U/D PO SCH ×4 (08:58→20:49)
[2022-11-29] MEDS: ANEXSIA, NORCO 7.5MG/325MG TABLET(HYDROCODONE/APAP) PO SCH ×3 (08:58→20:51)
[2022-11-29] MEDS: ASPIRIN 81MG ENTERIC TABLET PO SCH (08:58)
[2022-11-29] MEDS: FLUoxetine 10 MG CAP PO SCH (08:59)
[2022-11-29] MEDS: MAGNESIUM OXIDE 400MG TAB (MAG-OX) PO SCH ×2 (08:59→20:51)
[2022-11-29] MEDS: ALPRAZolam 0.5 MG TAB PO SCH ×2 (08:59→17:34)
[2022-11-29] MEDS: predniSONE 50 MG TAB PO SCH (08:59)
[2022-11-29] MEDS: buPROPion **XL** TABLET 150MG (WELLBUTRIN XL) PO SCH (09:00)
[2022-11-29] MEDS: POLYVINYL ALCOHOL OPHTH SOLN 15ML (LIQUITEARS) OU SCH ×4 (09:00→20:52)
[2022-11-29] MEDS: NYSTATIN CREAM 15GM TOP SCH ×2 (09:00→20:45)
[2022-11-29] MEDS: DOCUSATE SODIUM 100MG CAPSULE PO SCH ×2 (09:00→20:43)
[2022-11-29] MEDS: GABAPENTIN 100 MG CAP PO SCH ×2 (09:00→20:51)
[2022-11-29] MEDS: SPIRONOLACTONE 25 MG TAB PO SCH (09:00)
[2022-11-29] MEDS: BISOPROLOL FUM 2.5 MG PER 1/2TAB PO SCH (10:30)
[2022-11-29] MEDS: BACTRIM 160MG/800MG DS TAB PO SCH ×2 (13:58→20:49)
[2022-11-29 19:32] VITALS: BP 132/58; TEMP 97; O2SAT 93
[2022-11-29] MEDS: ATORVASTATIN 20 MG TAB PO SCH (20:50)
[2022-11-29] MEDS: LEVEMIR (INSULIN DETEMIR) 1 UNITS/0.01ML SC SCH (20:52)
[2022-11-29] MEDS: FAMOTIDINE 20 MG TAB PO SCH (20:52)
[2022-11-30] MEDS: LEVOTHYROXINE 25MCG TABLET (0.025MG) PO SCH (05:19)
[2022-11-30] MEDS: TORSEMIDE 100 MG TAB PO SCH (05:19)
[2022-11-30] MEDS: HEPARIN SOD (PORCINE) 5000UNITS/ML 1ML VIAL/SYRINGE SQ SCH ×3 (05:19→21:30)
[2022-11-30] MEDS: SODIUM CHLORIDE 0.9% INJ 10 ML SYR IV SCH ×2 (05:20→17:14)
[2022-11-30 06:12] VITALS: BP 132/66; TEMP 96.6; O2SAT 95
[2022-11-30] MEDS: CYCLOBENZAPRINE 5MG TABLET PO PRN (06:22)
[2022-11-30] MEDS: IPRATROPIUM 0.5MG/ALBUTEROL 2.5MG INH SOL UD 3ML (DUONEB) INH SCH ×4 (07:16→20:00)
[2022-11-30] MEDS: TIOTROPIUM INHALER/CAPSULE (SPIRIVA) INH SCH (07:16)
[2022-11-30] MEDS: ADVAIR HFA 115/21MCG INHALER INH SCH ×2 (07:16→20:00)
[2022-11-30] MEDS ORDERED: INSULIN LISPRO (NovoLOG) PER UNIT SC SCH (07:30)
[2022-11-30] MEDS: INSULIN LISPRO (NovoLOG) PER UNIT SC SCH ×6 (08:39→21:32)
[2022-11-30] MEDS: ANEXSIA, NORCO 7.5MG/325MG TABLET(HYDROCODONE/APAP) PO SCH ×3 (08:40→21:31)
[2022-11-30] MEDS: MAGNESIUM OXIDE 400MG TAB (MAG-OX) PO SCH ×2 (08:40→21:31)
[2022-11-30] MEDS: ASPIRIN 81MG ENTERIC TABLET PO SCH (08:41)
[2022-11-30] MEDS: GABAPENTIN 100 MG CAP PO SCH ×2 (08:41→21:31)
[2022-11-30] MEDS: POTASSIUM CHLORIDE 10% LIQ 20MEQ/15ML UDC PO SCH ×2 (08:41→21:32)
[2022-11-30] MEDS: buPROPion **XL** TABLET 150MG (WELLBUTRIN XL) PO SCH (08:41)
[2022-11-30] MEDS: ALPRAZolam 0.5 MG TAB PO SCH ×2 (08:41→17:14)
[2022-11-30] MEDS: predniSONE 10MG TAB PO SCH (08:41)
[2022-11-30] MEDS: BACTRIM 160MG/800MG DS TAB PO SCH ×2 (08:41→21:30)
[2022-11-30] MEDS: SPIRONOLACTONE 25 MG TAB PO SCH (08:41)
[2022-11-30] MEDS: CALCIUM CARBONATE 500 MG CHEW U/D PO SCH ×4 (08:41→21:31)
[2022-11-30] MEDS: FLUoxetine 10 MG CAP PO SCH (08:42)
[2022-11-30] MEDS: BISOPROLOL FUM 2.5 MG PER 1/2TAB PO SCH (08:42)
[2022-11-30] MEDS: POLYVINYL ALCOHOL OPHTH SOLN 15ML (LIQUITEARS) OU SCH ×4 (08:42→21:32)
[2022-11-30] MEDS: NYSTATIN CREAM 15GM TOP SCH ×2 (08:42→21:00)
[2022-11-30] MEDS: DOCUSATE SODIUM 100MG CAPSULE PO SCH ×3 (08:43→21:30)
[2022-11-30] MEDS: FAMOTIDINE 20 MG TAB PO SCH (21:30)
[2022-11-30] MEDS: ATORVASTATIN 20 MG TAB PO SCH (21:31)
[2022-11-30] MEDS: LEVEMIR (INSULIN DETEMIR) 1 UNITS/0.01ML SC SCH (21:33)
[2022-12-01] MEDS: HEPARIN SOD (PORCINE) 5000UNITS/ML 1ML VIAL/SYRINGE SQ SCH ×3 (05:34→21:16)
[2022-12-01] MEDS: LEVOTHYROXINE 25MCG TABLET (0.025MG) PO SCH (05:34)
[2022-12-01] MEDS: TORSEMIDE 100 MG TAB PO SCH (05:34)
[2022-12-01] MEDS: SODIUM CHLORIDE 0.9% INJ 10 ML SYR IV SCH ×2 (05:35→17:34)
[2022-12-01 05:51] VITALS: BP 137/70; TEMP 96.8; O2SAT 96
[2022-12-01] MEDS: TIOTROPIUM INHALER/CAPSULE (SPIRIVA) INH SCH (07:18)
[2022-12-01] MEDS: ADVAIR HFA 115/21MCG INHALER INH SCH ×2 (07:18→21:35)
[2022-12-01] MEDS: IPRATROPIUM 0.5MG/ALBUTEROL 2.5MG INH SOL UD 3ML (DUONEB) INH SCH ×4 (07:18→21:36)
[2022-12-01] MEDS: POTASSIUM CHLORIDE 10% LIQ 20MEQ/15ML UDC PO SCH ×2 (08:28→20:38)
[2022-12-01] MEDS: buPROPion **XL** TABLET 150MG (WELLBUTRIN XL) PO SCH (08:28)
[2022-12-01] MEDS: CALCIUM CARBONATE 500 MG CHEW U/D PO SCH ×4 (08:28→20:37)
[2022-12-01] MEDS: predniSONE 10MG TAB PO SCH (08:28)
[2022-12-01] MEDS: GABAPENTIN 100 MG CAP PO SCH ×2 (08:29→20:37)
[2022-12-01] MEDS: SPIRONOLACTONE 25 MG TAB PO SCH (08:29)
[2022-12-01] MEDS: ASPIRIN 81MG ENTERIC TABLET PO SCH (08:29)
[2022-12-01] MEDS: DOCUSATE SODIUM 100MG CAPSULE PO SCH ×2 (08:29→20:37)
[2022-12-01] MEDS: FLUoxetine 10 MG CAP PO SCH (08:29)
[2022-12-01] MEDS: ALPRAZolam 0.5 MG TAB PO SCH ×2 (08:29→17:34)
[2022-12-01] MEDS: BACTRIM 160MG/800MG DS TAB PO SCH ×2 (08:29→20:36)
[2022-12-01] MEDS: POLYVINYL ALCOHOL OPHTH SOLN 15ML (LIQUITEARS) OU SCH ×4 (08:30→20:39)
[2022-12-01] MEDS: MAGNESIUM OXIDE 400MG TAB (MAG-OX) PO SCH ×2 (08:30→20:37)
[2022-12-01] MEDS: ANEXSIA, NORCO 7.5MG/325MG TABLET(HYDROCODONE/APAP) PO SCH ×3 (08:30→20:43)
[2022-12-01] MEDS: ONDANSETRON 4MG TAB PO PRN (08:30)
[2022-12-01] MEDS: INSULIN LISPRO (NovoLOG) PER UNIT SC SCH ×7 (08:54→20:39)
[2022-12-01] MEDS: NYSTATIN CREAM 15GM TOP SCH ×2 (09:00→20:39)
[2022-12-01] MEDS: BISOPROLOL FUM 2.5 MG PER 1/2TAB PO SCH (10:22)
[2022-12-01] MEDS: CYCLOBENZAPRINE 5MG TABLET PO PRN ×2 (14:49→20:37)
[2022-12-01] MEDS: ATORVASTATIN 20 MG TAB PO SCH (20:37)
[2022-12-01] MEDS: FAMOTIDINE 20 MG TAB PO SCH (20:37)
[2022-12-01] MEDS: LEVEMIR (INSULIN DETEMIR) 1 UNITS/0.01ML SC SCH (20:39)
[2022-12-02] MEDS: TORSEMIDE 100 MG TAB PO SCH (05:00)
[2022-12-02] MEDS: LEVOTHYROXINE 25MCG TABLET (0.025MG) PO SCH (05:00)
[2022-12-02] MEDS: HEPARIN SOD (PORCINE) 5000UNITS/ML 1ML VIAL/SYRINGE SQ SCH ×4 (05:02→20:09)
[2022-12-02] MEDS: SODIUM CHLORIDE 0.9% INJ 10 ML SYR IV SCH (05:39)
[2022-12-02 06:00] VITALS: BP 143/71; TEMP 97.7; O2SAT 97
[2022-12-02] MEDS: ACETAMINOPHEN TAB 650MG DOSE (2X325MG) PO PRN ×2 (06:08→15:37)
[2022-12-02 06:15] LABS: HEMATOCRIT 38.4 % (36.0-47.0); HEMOGLOBIN 11.6 g/dl (12.0-15.5); MEAN CORPUSCULAR HEMOGLOBIN 26.8 pg (27.0-33.0); MEAN CORPUSCULAR HGB CONC 30.2 g/dl (32.0-36.5); MEAN CORPUSCULAR VOLUME 88.7 fl (80.0-96.0); PLATELET COUNT, AUTOMATED 412 10^3/uL (150-450); RED BLOOD COUNT 4.33 10^6/uL (4.00-5.40); WHITE BLOOD COUNT 15.2 10^3/uL (4.0-10.0)
[2022-12-02 06:28] LABS: INR 0.88; PROTHROMBIN TIME 12.1 SECONDS (12.5-14.5)
[2022-12-02 06:48] LABS: BLOOD UREA NITROGEN 19 MG/DL (9-23); CALCIUM LEVEL 10.1 MG/DL (8.3-10.6); CARBON DIOXIDE LEVEL 35 MMOL/L (20-31); CHLORIDE LEVEL 97 MMOL/L (98-107); CREATININE FOR GFR 0.69 MG/DL (0.55-1.30); GLOMERULAR FILTRATION RATE > 60.0 (>45); GLUCOSE, FASTING 148 MG/DL (74-106); POTASSIUM SERUM 3.9 MMOL/L (3.5-5.1); SODIUM LEVEL 138 MMOL/L (136-145)
[2022-12-02] MEDS: ADVAIR HFA 115/21MCG INHALER INH SCH ×2 (07:11→20:54)
[2022-12-02] MEDS: IPRATROPIUM 0.5MG/ALBUTEROL 2.5MG INH SOL UD 3ML (DUONEB) INH SCH ×3 (07:11→20:54)
[2022-12-02] MEDS: TIOTROPIUM INHALER/CAPSULE (SPIRIVA) INH SCH (07:12)
[2022-12-02] MEDS: INSULIN LISPRO (NovoLOG) PER UNIT SC SCH ×7 (07:30→20:08)
[2022-12-02] MEDS: NYSTATIN CREAM 15GM TOP SCH ×2 (09:00→20:28)
[2022-12-02] MEDS: GABAPENTIN 100 MG CAP PO SCH ×2 (09:35→20:26)
[2022-12-02] MEDS: FLUoxetine 10 MG CAP PO SCH (09:35)
[2022-12-02] MEDS: POTASSIUM CHLORIDE 10% LIQ 20MEQ/15ML UDC PO SCH ×2 (09:35→20:23)
[2022-12-02] MEDS: ANEXSIA, NORCO 7.5MG/325MG TABLET(HYDROCODONE/APAP) PO SCH ×3 (09:35→20:27)
[2022-12-02] MEDS: buPROPion **XL** TABLET 150MG (WELLBUTRIN XL) PO SCH (09:36)
[2022-12-02] MEDS: DOCUSATE SODIUM 100MG CAPSULE PO SCH ×2 (09:36→20:23)
[2022-12-02] MEDS: ASPIRIN 81MG ENTERIC TABLET PO SCH (09:36)
[2022-12-02] MEDS: MAGNESIUM OXIDE 400MG TAB (MAG-OX) PO SCH ×2 (09:36→20:25)
[2022-12-02] MEDS: SPIRONOLACTONE 25 MG TAB PO SCH (09:36)
[2022-12-02] MEDS: predniSONE 10MG TAB PO SCH (09:36)
[2022-12-02] MEDS: BACTRIM 160MG/800MG DS TAB PO SCH ×2 (09:36→20:25)
[2022-12-02] MEDS: ALPRAZolam 0.5 MG TAB PO SCH ×2 (09:37→17:20)
[2022-12-02] MEDS: CALCIUM CARBONATE 500 MG CHEW U/D PO SCH ×4 (09:37→20:27)
[2022-12-02] MEDS: BISOPROLOL FUM 2.5 MG PER 1/2TAB PO SCH (09:38)
[2022-12-02] MEDS: POLYVINYL ALCOHOL OPHTH SOLN 15ML (LIQUITEARS) OU SCH ×4 (09:39→20:27)
[2022-12-02] MEDS: ONDANSETRON 4MG TAB PO PRN (09:48)
[2022-12-02] MEDS ORDERED: fentaNYL 100 MCG/2 ML INJECTION As Ordered ONE (11:48)
[2022-12-02] MEDS ORDERED: MIDAZOLAM INJ 2MG/2ML VIAL As Ordered ONE (11:48)
[2022-12-02] MEDS ORDERED: LIDOCAINE W/EPINEPHRINE 1% 20ML VIAL As Ordered ONE (11:49)
[2022-12-02] MEDS ORDERED: ceFAZolin 2 GM/D5W 50 ML IV BAG As Ordered ONE (11:55)
[2022-12-02] MEDS ORDERED: ceFAZolin SOD 2 GM in IV 1 EA IV ONE (12:15)
[2022-12-02] MEDS: CYCLOBENZAPRINE 5MG TABLET PO PRN (14:02)
[2022-12-02] MEDS: FAMOTIDINE 20 MG TAB PO SCH (20:23)
[2022-12-02] MEDS: LEVEMIR (INSULIN DETEMIR) 1 UNITS/0.01ML SC SCH (20:23)
[2022-12-02] MEDS: ATORVASTATIN 20 MG TAB PO SCH (20:25)
[2022-12-03] MEDS: CYCLOBENZAPRINE 5MG TABLET PO PRN ×2 (01:49→08:02)
[2022-12-03] MEDS: HEPARIN SOD (PORCINE) 5000UNITS/ML 1ML VIAL/SYRINGE SQ SCH ×2 (05:38→12:10)
[2022-12-03] MEDS: LEVOTHYROXINE 25MCG TABLET (0.025MG) PO SCH (05:41)
[2022-12-03] MEDS: TORSEMIDE 100 MG TAB PO SCH (05:41)
[2022-12-03 05:57] VITALS: BP 135/53; TEMP 97.5; O2SAT 94
[2022-12-03] MEDS: INSULIN LISPRO (NovoLOG) PER UNIT SC SCH ×4 (07:30→12:10)
[2022-12-03] MEDS: POTASSIUM CHLORIDE 10% LIQ 20MEQ/15ML UDC PO SCH (08:02)
[2022-12-03] MEDS: FLUoxetine 10 MG CAP PO SCH (08:02)
[2022-12-03] MEDS: ONDANSETRON 4MG TAB PO PRN (08:02)
[2022-12-03] MEDS: DOCUSATE SODIUM 100MG CAPSULE PO SCH (08:02)
[2022-12-03] MEDS: MAGNESIUM OXIDE 400MG TAB (MAG-OX) PO SCH (08:02)
[2022-12-03] MEDS: ASPIRIN 81MG ENTERIC TABLET PO SCH (08:03)
[2022-12-03] MEDS: buPROPion **XL** TABLET 150MG (WELLBUTRIN XL) PO SCH (08:03)
[2022-12-03] MEDS: SPIRONOLACTONE 25 MG TAB PO SCH (08:03)
[2022-12-03] MEDS: ACETAMINOPHEN TAB 650MG DOSE (2X325MG) PO PRN (08:03)
[2022-12-03] MEDS: BACTRIM 160MG/800MG DS TAB PO SCH (08:03)
[2022-12-03 08:04] VITALS: BP 135/53
[2022-12-03] MEDS: ANEXSIA, NORCO 7.5MG/325MG TABLET(HYDROCODONE/APAP) PO SCH (08:04)
[2022-12-03] MEDS: GABAPENTIN 100 MG CAP PO SCH (08:04)
[2022-12-03] MEDS: ALPRAZolam 0.5 MG TAB PO SCH (08:04)
[2022-12-03] MEDS: BISOPROLOL FUM 2.5 MG PER 1/2TAB PO SCH (08:04)
[2022-12-03] MEDS: CALCIUM CARBONATE 500 MG CHEW U/D PO SCH ×2 (08:05→12:09)
[2022-12-03] MEDS: predniSONE 10MG TAB PO SCH (08:05)
[2022-12-03] MEDS: POLYVINYL ALCOHOL OPHTH SOLN 15ML (LIQUITEARS) OU SCH ×2 (08:06→12:09)
[2022-12-03] MEDS: IPRATROPIUM 0.5MG/ALBUTEROL 2.5MG INH SOL UD 3ML (DUONEB) INH SCH ×2 (08:16→13:18)
[2022-12-03] MEDS: ADVAIR HFA 115/21MCG INHALER INH SCH (08:16)
[2022-12-03] MEDS: TIOTROPIUM INHALER/CAPSULE (SPIRIVA) INH SCH (08:16)
[2022-12-03] MEDS: NYSTATIN CREAM 15GM TOP SCH (09:00)
[2022-12-03] MEDS ORDERED: PRED10TA2 PO (12:22)
[2022-12-03] MEDS ORDERED: BACTDSTA PO (12:22)
[2022-12-03] MEDS ORDERED: IPRA0.00 INH (12:56)
[2022-12-03] MEDS ORDERED: PRED20TA PO (12:56)
== END 2022-12-03 15:05 | DRG 871 ==
LOC: M ED 07:33 → M ED INP 12:07 → M PCU 17:21 → M MS5PR 11-28 15:20
PROVIDERS: ADMIT Student in an Organized Health Care Education/Training Program; ATTEND Student in an Organized Health Care Education/Training Program
PROC: 0W9B30Z Drainage of Left Pleural Cavity with Drainage Device, Percutaneous Approach (ICD-10-PCS; 2022-11-26)
PROC: 3E0L3GC Introduction of Other Therapeutic Substance into Pleural Cavity, Percutaneous Approach (ICD-10-PCS; 2022-11-27)
PROC: 02HV33Z Insertion of Infusion Device into Superior Vena Cava, Percutaneous Approach (ICD-10-PCS; principal; 2022-11-27 14:48)
PROC: 0JH63XZ Insertion of Tunneled Vascular Access Device into Chest Subcutaneous Tissue and Fascia, Percutaneous Approach (ICD-10-PCS; 2022-12-02)
DX: A41.9 Sepsis, unspecified organism (principal); J96.21 Acute and chronic respiratory failure with hypoxia; J96.22 Acute and chronic respiratory failure with hypercapnia; J18.9 Pneumonia, unspecified organism; J91.0 Malignant pleural effusion; C34.32 Malignant neoplasm of lower lobe, left bronchus or lung; J98.11 Atelectasis; J44.0 Chronic obstructive pulmonary disease with (acute) lower respiratory infection; J44.1 Chronic obstructive pulmonary disease with (acute) exacerbation; Z99.81 Dependence on supplemental oxygen; G47.33 Obstructive sleep apnea (adult) (pediatric); E11.9 Type 2 diabetes mellitus without complications; I25.10 Atherosclerotic heart disease of native coronary artery without angina pectoris; Z66 Do not resuscitate; K21.9 Gastro-esophageal reflux disease without esophagitis; E78.5 Hyperlipidemia, unspecified; I50.9 Heart failure, unspecified; M19.90 Unspecified osteoarthritis, unspecified site; I11.0 Hypertensive heart disease with heart failure; E66.9 Obesity, unspecified; M79.7 Fibromyalgia; F32.A Depression, unspecified; E03.9 Hypothyroidism, unspecified; F41.9 Anxiety disorder, unspecified; G89.29 Other chronic pain; Z79.82 Long term (current) use of aspirin; Z79.2 Long term (current) use of antibiotics; Z79.4 Long term (current) use of insulin; Z79.890 Hormone replacement therapy; Z79.84 Long term (current) use of oral hypoglycemic drugs; Z79.52 Long term (current) use of systemic steroids; Z79.899 Other long term (current) drug therapy; Z88.1 Allergy status to other antibiotic agents; Z91.048 Other nonmedicinal substance allergy status

== ENCOUNTER → 2022-12-03 | Outpatient (REF) | payer MEDICARE, MEDICAID ==
[~2022-12-03] MED LIST changes: +ACET650T3 PO; +ALPR1TAB3 PO; +ARTIDRO4 OU; +BACT800T5 PO; +BACTDSTA PO; +BUPR150T12 PO; +CHOL125C6 PO; +CYCL5TAB PO; +DIAZ2TAB PO; +FAMO20TA4 PO; +FLUT1BLS6 INH; +GNP1SOL5 AU; +HUMA100I5 SC; -HUMA100I5 SUBQ; +HYOS125TA PO; -LANTINJ4 SUBQ; +LIDO1PAD TOP; +METR1GEL TOP; +MORP1SOL5 PO; +NYST-13 TOP; +ONDA-83 PO; +POTA20EL PO; +SEMA2PEN SC; +SIME1CAP PO; +SIME1CHW5 PO; +SPIR-10 PO
== END ==
PROVIDERS: ATTEND General Practice
DX: C34.32 Malignant neoplasm of lower lobe, left bronchus or lung (principal); Z53.8 Procedure and treatment not carried out for other reasons

== ENCOUNTER 2022-12-08 07:39 | Outpatient (RCR) | payer MEDICARE, MEDICAID ==
[~2022-12-08 07:39] MED LIST changes: -ACET650T3 PO; -BACT800T5 PO; +DICL100G10 TOP; -DICL1GEL3 TOP; -HYOS125TA PO; -MORP1SOL5 PO; +PROHANCE 279.3MG/ML 15ML VIAL As Ordered ONE; +PROHANCE 279.3MG/ML 5ML VIAL As Ordered ONE; -SIME1CAP PO
[2022-12-09] MEDS ORDERED: PRED10TA2 PO (00:04)
[2022-12-09] MEDS ORDERED: ACET650T3 PO (00:04)
[2022-12-09] MEDS ORDERED: BACT800T5 PO (00:04)
[2022-12-09] MEDS ORDERED: AZIT-12 PO (00:04)
[2022-12-09] MEDS ORDERED: TUMS500C PO (00:04)
[2022-12-09] MEDS ORDERED: FLUO20CA22 PO (00:04)
[2022-12-09] MEDS ORDERED: SIME1CAP PO (00:04)
[2022-12-16] MEDS ORDERED: MORP1SOL5 PO (11:24)
[2022-12-16] MEDS ORDERED: ATIV1TAB10 PO (11:24)
[2022-12-16] MEDS ORDERED: HYOS125TA PO (11:24)
== END 2022-12-21 ==
LOC: M ONCR 07:39
PROVIDERS: ATTEND General Practice
DX: C34.32 Malignant neoplasm of lower lobe, left bronchus or lung (principal)
CPT/HCPCS: 77387; 77412; A9576

== ENCOUNTER 2022-12-08 16:04 | Inpatient (IN) | payer MEDICARE, MEDICAID ==
[~2022-12-08] VITALS: Ht 165.1 cm; Wt 100.8 kg
[~2022-12-08 16:04] MED LIST changes: -PROHANCE 279.3MG/ML 15ML VIAL As Ordered ONE; -PROHANCE 279.3MG/ML 5ML VIAL As Ordered ONE
[2022-12-08] MEDS: IPRATROPIUM 0.5MG/ALBUTEROL 2.5MG INH SOL UD 3ML (DUONEB) NEB PRN ×3 (16:22→20:02)
[2022-12-08 16:26] LABS: VENOUS BASE EXCESS -1.8 (-2.0-2.0); VENOUS HCO3 26.1 MMOL/L (23.0-27.0); VENOUS O2 SATURATION 91.2 % (60.0-80.0); VENOUS PARTIAL PRESSURE CO2 59.3 mmHg (38.0-50.0); VENOUS PARTIAL PRESSURE O2 74.8 mmHg (30.0-50.0); VENOUS PH 7.262 UNITS (7.330-7.430); VENOUS STANDARD HCO3 22.8 MMOL/L
[2022-12-08 16:34] LABS: BASO # 0.1 10^3/uL (0.0-0.2); BASO % 0.4 % (0.0-1.0); HEMATOCRIT 39.3 % (36.0-47.0); HEMOGLOBIN 11.7 g/dl (12.0-15.5); LYMPH # 0.4 10^3/uL (1.5-5.0); MEAN CORPUSCULAR HEMOGLOBIN 26.8 pg (27.0-33.0); MEAN CORPUSCULAR HGB CONC 29.8 g/dl (32.0-36.5); MEAN CORPUSCULAR VOLUME 89.9 fl (80.0-96.0); MONO # 0.2 10^3/uL (0.0-0.8); MONO % 1.1 % (2.0-8.0); NEUTROPHILS # 12.3 10^3/uL (1.5-8.5); NEUTROPHILS % 93.3 % (36.0-66.0); PLATELET COUNT, AUTOMATED 402 10^3/uL (150-450); RED BLOOD COUNT 4.37 10^6/uL (4.00-5.40); WHITE BLOOD COUNT 13.1 10^3/uL (4.0-10.0)
[2022-12-08 17:01] LABS: ALBUMIN 3.2 G/DL (3.2-5.2); ALKALINE PHOSPHATASE 133 U/L (46-116); ALT/SGPT 30 U/L (7.0-40); AST/SGOT 22 U/L (<34); BILIRUBIN,DIRECT 0.2 MG/DL (<0.4); BILIRUBIN,TOTAL 0.5 MG/DL (0.3-1.2); BLOOD UREA NITROGEN 21 MG/DL (9-23); CALCIUM LEVEL 9.3 MG/DL (8.3-10.6); CARBON DIOXIDE LEVEL 30 MMOL/L (20-31); CHLORIDE LEVEL 101 MMOL/L (98-107); CREATININE FOR GFR 0.59 MG/DL (0.55-1.30); GLOMERULAR FILTRATION RATE > 60.0 (>45); GLUCOSE, FASTING 320 MG/DL (74-106); POTASSIUM SERUM 5.4 MMOL/L (3.5-5.1); SODIUM LEVEL 137 MMOL/L (136-145); TOTAL PROTEIN 6.5 G/DL (5.7-8.2)
[2022-12-08] MEDS ORDERED: ACETAMINOPHEN 500 MG TAB PO ONE (17:35)
[2022-12-08] MEDS ORDERED: ISOVUE-370 76% 100ML VIAL As Ordered ONE (17:45)
[2022-12-08 19:18] LABS: ABG BASE EXCESS 1.4 (-2.0-2.0); ABG HCO3 28.3 MMOL/L (22.0-26.0); ABG O2 SATURATION 89.8 % (95.0-99.0); ABG PARTIAL PRESSURE CO2 55.3 mmHg (35.0-45.0); ABG PARTIAL PRESSURE O2 63.9 mmHg (75.0-100.0); ABG STANDARD HCO3 25.6 MMOL/L. (22.0-26.0); ABG pH (ARTERIAL) 7.327 UNITS (7.350-7.450)
[2022-12-08] MEDS ORDERED: GLUCOSE 4GM CHEW TABLET PO PRN (20:15)
[2022-12-08] MEDS ORDERED: GLUCAGON INJ 1MG VIAL SC PRN (20:15)
[2022-12-08] MEDS ORDERED: DEXTROSE 50% 50ML SYRINGE IV PRN (20:15)
[2022-12-08] MEDS: INSULIN LISPRO (NovoLOG) PER UNIT SC SCH (20:28)
[2022-12-08] MEDS: IPRATROPIUM 0.5MG/ALBUTEROL 2.5MG INH SOL UD 3ML (DUONEB) NEB SCH (20:29)
[2022-12-08] MEDS: methylPREDNISolone 40MG 1ML VIAL IV SCH (21:02)
[2022-12-08] MEDS: DOXYCYCLINE HYCLATE 100 MG in D5W MINI-BAG PLUS 100 ML IV SCH (21:02)
[2022-12-08 23:41] VITALS: BP 146/78; TEMP 97.4; O2SAT 93
[2022-12-09] VITALS (16 sets, daily range): BP systolic 129–175; BP diastolic 62–88; TEMP 96.6–97.7; O2SAT 89–96
[2022-12-09] MEDS ORDERED: PRED10TA2 PO (00:04)
[2022-12-09] MEDS ORDERED: TUMS500C PO (00:04)
[2022-12-09] MEDS ORDERED: BACT800T5 PO (00:04)
[2022-12-09] MEDS ORDERED: SIME1CAP PO (00:04)
[2022-12-09] MEDS ORDERED: FLUO20CA22 PO (00:04)
[2022-12-09] MEDS ORDERED: AZIT-12 PO (00:04)
[2022-12-09] MEDS ORDERED: ACET650T3 PO (00:04)
[2022-12-09] MEDS ORDERED: HOME MED LIST COMPLETE! XX SCH (00:10)
[2022-12-09] MEDS: ACETAMINOPHEN TAB 650MG DOSE (2X325MG) PO PRN ×3 (00:45→12:14)
[2022-12-09] MEDS ORDERED: ALBUTEROL 90 MCG/ACT 8GM HFA INHALER INH PRN (01:00)
[2022-12-09] MEDS: IPRATROPIUM 0.5MG/ALBUTEROL 2.5MG INH SOL UD 3ML (DUONEB) NEB SCH ×4 (02:11→20:29)
[2022-12-09] MEDS: LEVOTHYROXINE 25MCG TABLET (0.025MG) PO SCH (05:27)
[2022-12-09] MEDS: methylPREDNISolone 40MG 1ML VIAL IV SCH (05:27)
[2022-12-09 06:10] LABS: VENOUS BASE EXCESS 2.2 (-2.0-2.0); VENOUS O2 SATURATION 97.4 % (60.0-80.0); VENOUS PARTIAL PRESSURE CO2 48.6 mmHg (38.0-50.0); VENOUS PARTIAL PRESSURE O2 172.6 mmHg (30.0-50.0); VENOUS PH 7.378 UNITS (7.330-7.430); VENOUS STANDARD HCO3 26.4 MMOL/L; VENOUS TOTAL CO2 29.5 MMOL/L (24.0-28.0)
[2022-12-09 06:18] LABS: HEMOGLOBIN 11.2 g/dl (12.0-15.5); MEAN CORPUSCULAR HEMOGLOBIN 27.2 pg (27.0-33.0); MEAN CORPUSCULAR HGB CONC 30.3 g/dl (32.0-36.5); MEAN CORPUSCULAR VOLUME 89.8 fl (80.0-96.0); PLATELET COUNT, AUTOMATED 312 10^3/uL (150-450); RED BLOOD COUNT 4.12 10^6/uL (4.00-5.40); WHITE BLOOD COUNT 10.5 10^3/uL (4.0-10.0)
[2022-12-09 06:41] LABS: INR 0.97; PROTHROMBIN TIME 13.1 SECONDS (12.5-14.5)
[2022-12-09 06:42] LABS: PARTIAL THROMBOPLASTIN TIME 25.6 SECONDS (24.8-34.2)
[2022-12-09 06:56] LABS: ALBUMIN 3.1 G/DL (3.2-5.2); ALKALINE PHOSPHATASE 114 U/L (46-116); ALT/SGPT 26 U/L (7.0-40); AST/SGOT 19 U/L (<34); BILIRUBIN,TOTAL 0.5 MG/DL (0.3-1.2); BLOOD UREA NITROGEN 18 MG/DL (9-23); CALCIUM LEVEL 8.7 MG/DL (8.3-10.6); CARBON DIOXIDE LEVEL 28 MMOL/L (20-31); CHLORIDE LEVEL 101 MMOL/L (98-107); CREATININE FOR GFR 0.51 MG/DL (0.55-1.30); GLOMERULAR FILTRATION RATE > 60.0 (>45); GLUCOSE, FASTING 288 MG/DL (74-106); MAGNESIUM LEVEL 2.1 MG/DL (1.8-2.4); POTASSIUM SERUM 4.8 MMOL/L (3.5-5.1); SODIUM LEVEL 140 MMOL/L (136-145); TOTAL PROTEIN 6.2 G/DL (5.7-8.2)
[2022-12-09] MEDS: TIOTROPIUM INHALER/CAPSULE (SPIRIVA) INH SCH (07:15)
[2022-12-09] MEDS: INSULIN LISPRO (NovoLOG) PER UNIT SC SCH ×4 (07:30→22:36)
[2022-12-09] MEDS: ANEXSIA, NORCO 7.5MG/325MG TABLET(HYDROCODONE/APAP) PO SCH ×3 (08:16→22:38)
[2022-12-09] MEDS: GABAPENTIN 100 MG CAP PO SCH ×2 (08:16→22:40)
[2022-12-09] MEDS: FLUoxetine 20MG CAP PO SCH (08:16)
[2022-12-09] MEDS: buPROPion **XL** TABLET 150MG (WELLBUTRIN XL) PO SCH (08:16)
[2022-12-09] MEDS: ASPIRIN 81MG ENTERIC TABLET PO SCH (08:17)
[2022-12-09] MEDS: MAGNESIUM OXIDE 400MG TAB (MAG-OX) PO SCH ×2 (08:17→22:40)
[2022-12-09] MEDS: TORSEMIDE 100 MG TAB PO SCH (08:17)
[2022-12-09] MEDS: FLUoxetine 10 MG CAP PO SCH (08:17)
[2022-12-09] MEDS: CALCIUM CARBONATE 500 MG CHEW U/D PO SCH ×4 (08:17→22:39)
[2022-12-09] MEDS: SPIRONOLACTONE 25 MG TAB PO SCH (08:17)
[2022-12-09] MEDS: PANTOPRAZOLE 40MG TAB (PROTONIX) PO SCH (08:17)
[2022-12-09] MEDS: BISOPROLOL FUM 2.5 MG PER 1/2TAB PO SCH (08:18)
[2022-12-09] MEDS: DOXYCYCLINE HYCLATE 100 MG in D5W MINI-BAG PLUS 100 ML IV SCH (08:18)
[2022-12-09] MEDS: ALPRAZolam 0.5 MG TAB PO SCH ×2 (08:18→22:39)
[2022-12-09] MEDS: POLYVINYL ALCOHOL OPHTH SOLN 15ML (LIQUITEARS) OU SCH ×4 (08:22→22:41)
[2022-12-09] MEDS: NYSTATIN CREAM 15GM TOP SCH ×2 (08:22→21:00)
[2022-12-09 11:15] LABS: PROCALCITONIN 11.25 ng/ml
[2022-12-09] MEDS: predniSONE 20 MG TAB PO SCH (12:14)
[2022-12-09] MEDS: ADVAIR HFA 230/21MCG INHALER INH SCH ×2 (13:07→20:29)
[2022-12-09] MEDS: LEVEMIR (INSULIN DETEMIR) 1 UNITS/0.01ML SC SCH (22:37)
[2022-12-09] MEDS: ENOXAPARIN 40MG/0.4ML SYRINGE (J1650 PER 10MG) SC SCH (22:38)
[2022-12-09] MEDS: ATORVASTATIN 20 MG TAB PO SCH (22:39)
[2022-12-09] MEDS: AZITHROMYCIN 250MG TABLET PO SCH (22:40)
[2022-12-09] MEDS: FAMOTIDINE 20 MG TAB PO SCH (22:40)
[2022-12-10] VITALS (19 sets, daily range): BP systolic 122–149; BP diastolic 57–79; TEMP 96.5–98.3; O2SAT 88–98
[2022-12-10] MEDS: IPRATROPIUM 0.5MG/ALBUTEROL 2.5MG INH SOL UD 3ML (DUONEB) NEB SCH ×4 (00:39→19:47)
[2022-12-10] MEDS: LEVOTHYROXINE 25MCG TABLET (0.025MG) PO SCH (05:51)
[2022-12-10] MEDS: ACETAMINOPHEN TAB 650MG DOSE (2X325MG) PO PRN ×2 (05:51→12:43)
[2022-12-10] MEDS ORDERED: DOCUSATE SODIUM 100MG CAPSULE PO ONE (06:00)
[2022-12-10 06:09] LABS: BASO % 0.1 % (0.0-1.0); EOS % 0.1 % (0.0-3.0); HEMATOCRIT 33.8 % (36.0-47.0); HEMOGLOBIN 10.4 g/dl (12.0-15.5); LYMPH # 0.6 10^3/uL (1.5-5.0); LYMPH % 5.1 % (24.0-44.0); MEAN CORPUSCULAR HGB CONC 30.8 g/dl (32.0-36.5); MEAN CORPUSCULAR VOLUME 87.8 fl (80.0-96.0); MONO # 0.8 10^3/uL (0.0-0.8); MONO % 7.1 % (2.0-8.0); NEUTROPHILS # 10.1 10^3/uL (1.5-8.5); NEUTROPHILS % 86.8 % (36.0-66.0); PLATELET COUNT, AUTOMATED 330 10^3/uL (150-450); RED BLOOD COUNT 3.85 10^6/uL (4.00-5.40); WHITE BLOOD COUNT 11.6 10^3/uL (4.0-10.0)
[2022-12-10 06:32] LABS: ALKALINE PHOSPHATASE 102 U/L (46-116); ALT/SGPT 24 U/L (7.0-40); AST/SGOT 18 U/L (<34); BILIRUBIN,TOTAL 0.4 MG/DL (0.3-1.2); BLOOD UREA NITROGEN 35 MG/DL (9-23); CALCIUM LEVEL 9.2 MG/DL (8.3-10.6); CARBON DIOXIDE LEVEL 34 MMOL/L (20-31); CHLORIDE LEVEL 95 MMOL/L (98-107); CREATININE FOR GFR 0.67 MG/DL (0.55-1.30); GLOMERULAR FILTRATION RATE > 60.0 (>45); GLUCOSE, FASTING 225 MG/DL (74-106); MAGNESIUM LEVEL 1.9 MG/DL (1.8-2.4); SODIUM LEVEL 137 MMOL/L (136-145); TOTAL PROTEIN 5.9 G/DL (5.7-8.2)
[2022-12-10] MEDS: TIOTROPIUM INHALER/CAPSULE (SPIRIVA) INH SCH (07:44)
[2022-12-10] MEDS: ADVAIR HFA 230/21MCG INHALER INH SCH ×2 (07:44→19:47)
[2022-12-10] MEDS: ALPRAZolam 0.5 MG TAB PO SCH ×2 (08:22→20:33)
[2022-12-10] MEDS: CALCIUM CARBONATE 500 MG CHEW U/D PO SCH ×4 (08:22→20:33)
[2022-12-10] MEDS: PANTOPRAZOLE 40MG TAB (PROTONIX) PO SCH (08:22)
[2022-12-10] MEDS: ASPIRIN 81MG ENTERIC TABLET PO SCH (08:22)
[2022-12-10] MEDS: buPROPion **XL** TABLET 150MG (WELLBUTRIN XL) PO SCH (08:22)
[2022-12-10] MEDS: MAGNESIUM OXIDE 400MG TAB (MAG-OX) PO SCH ×2 (08:23→20:34)
[2022-12-10] MEDS: ANEXSIA, NORCO 7.5MG/325MG TABLET(HYDROCODONE/APAP) PO SCH ×3 (08:23→20:32)
[2022-12-10] MEDS: FLUoxetine 20MG CAP PO SCH (08:23)
[2022-12-10] MEDS: SPIRONOLACTONE 25 MG TAB PO SCH (08:23)
[2022-12-10] MEDS: predniSONE 20 MG TAB PO SCH (08:23)
[2022-12-10] MEDS: GABAPENTIN 100 MG CAP PO SCH ×2 (08:23→20:33)
[2022-12-10] MEDS: NYSTATIN CREAM 15GM TOP SCH ×2 (08:24→21:00)
[2022-12-10] MEDS: POLYVINYL ALCOHOL OPHTH SOLN 15ML (LIQUITEARS) OU SCH ×4 (08:24→20:34)
[2022-12-10] MEDS: BISOPROLOL FUM 2.5 MG PER 1/2TAB PO SCH (08:24)
[2022-12-10] MEDS: TORSEMIDE 100 MG TAB PO SCH (08:24)
[2022-12-10] MEDS: FLUoxetine 10 MG CAP PO SCH (08:24)
[2022-12-10] MEDS: INSULIN LISPRO (NovoLOG) PER UNIT SC SCH ×4 (08:25→20:35)
[2022-12-10] MEDS: ATORVASTATIN 20 MG TAB PO SCH (20:32)
[2022-12-10] MEDS: AZITHROMYCIN 250MG TABLET PO SCH (20:33)
[2022-12-10] MEDS: FAMOTIDINE 20 MG TAB PO SCH (20:34)
[2022-12-10] MEDS: LEVEMIR (INSULIN DETEMIR) 1 UNITS/0.01ML SC SCH (20:35)
[2022-12-10] MEDS: ENOXAPARIN 40MG/0.4ML SYRINGE (J1650 PER 10MG) SC SCH (20:35)
[2022-12-11] VITALS (16 sets, daily range): BP systolic 123–144; BP diastolic 61–77; TEMP 96.3–98.1; O2SAT 86–98
[2022-12-11] MEDS: IPRATROPIUM 0.5MG/ALBUTEROL 2.5MG INH SOL UD 3ML (DUONEB) NEB SCH ×4 (00:56→19:44)
[2022-12-11] MEDS: ACETAMINOPHEN TAB 650MG DOSE (2X325MG) PO PRN ×3 (04:31→20:42)
[2022-12-11 05:11] LABS: BASO % 0.2 % (0.0-1.0); EOS % 0.3 % (0.0-3.0); HEMATOCRIT 34.9 % (36.0-47.0); HEMOGLOBIN 10.7 g/dl (12.0-15.5); LYMPH % 10.7 % (24.0-44.0); MEAN CORPUSCULAR HEMOGLOBIN 26.8 pg (27.0-33.0); MEAN CORPUSCULAR HGB CONC 30.7 g/dl (32.0-36.5); MEAN CORPUSCULAR VOLUME 87.3 fl (80.0-96.0); MONO # 0.5 10^3/uL (0.0-0.8); MONO % 5.4 % (2.0-8.0); NEUTROPHILS # 7.8 10^3/uL (1.5-8.5); NEUTROPHILS % 82.7 % (36.0-66.0); PLATELET COUNT, AUTOMATED 236 10^3/uL (150-450); WHITE BLOOD COUNT 9.4 10^3/uL (4.0-10.0)
[2022-12-11 05:38] LABS: ALBUMIN 3.1 G/DL (3.2-5.2); ALKALINE PHOSPHATASE 102 U/L (46-116); ALT/SGPT 27 U/L (7.0-40); AST/SGOT 24 U/L (<34); BILIRUBIN,TOTAL 0.5 MG/DL (0.3-1.2); BLOOD UREA NITROGEN 29 MG/DL (9-23); CARBON DIOXIDE LEVEL 39 MMOL/L (20-31); CHLORIDE LEVEL 93 MMOL/L (98-107); CREATININE FOR GFR 0.57 MG/DL (0.55-1.30); GLOMERULAR FILTRATION RATE > 60.0 (>45); GLUCOSE, FASTING 140 MG/DL (74-106); MAGNESIUM LEVEL 1.8 MG/DL (1.8-2.4); POTASSIUM SERUM 3.3 MMOL/L (3.5-5.1); SODIUM LEVEL 139 MMOL/L (136-145); TOTAL PROTEIN 6.1 G/DL (5.7-8.2)
[2022-12-11] MEDS: LEVOTHYROXINE 25MCG TABLET (0.025MG) PO SCH (06:13)
[2022-12-11] MEDS: TIOTROPIUM INHALER/CAPSULE (SPIRIVA) INH SCH (07:07)
[2022-12-11] MEDS: ADVAIR HFA 230/21MCG INHALER INH SCH ×2 (07:07→19:44)
[2022-12-11] MEDS: INSULIN LISPRO (NovoLOG) PER UNIT SC SCH ×4 (08:54→20:44)
[2022-12-11] MEDS: MAGNESIUM OXIDE 400MG TAB (MAG-OX) PO SCH ×2 (08:55→20:41)
[2022-12-11] MEDS: PANTOPRAZOLE 40MG TAB (PROTONIX) PO SCH (08:56)
[2022-12-11] MEDS: predniSONE 20 MG TAB PO SCH (08:56)
[2022-12-11] MEDS: GABAPENTIN 100 MG CAP PO SCH ×2 (08:56→20:41)
[2022-12-11] MEDS: BISOPROLOL FUM 2.5 MG PER 1/2TAB PO SCH (08:57)
[2022-12-11] MEDS: ASPIRIN 81MG ENTERIC TABLET PO SCH (08:57)
[2022-12-11] MEDS: CALCIUM CARBONATE 500 MG CHEW U/D PO SCH ×4 (08:57→20:40)
[2022-12-11] MEDS: ALPRAZolam 0.5 MG TAB PO SCH ×2 (08:57→20:41)
[2022-12-11] MEDS: FLUoxetine 20MG CAP PO SCH (08:58)
[2022-12-11] MEDS: TORSEMIDE 100 MG TAB PO SCH (08:58)
[2022-12-11] MEDS: FLUoxetine 10 MG CAP PO SCH (08:58)
[2022-12-11] MEDS: SPIRONOLACTONE 25 MG TAB PO SCH (08:58)
[2022-12-11] MEDS: buPROPion **XL** TABLET 150MG (WELLBUTRIN XL) PO SCH (08:58)
[2022-12-11] MEDS ORDERED: POTASSIUM CHLORIDE 10MEQ SR TABLET PO ONE (09:00)
[2022-12-11] MEDS: NYSTATIN CREAM 15GM TOP SCH ×2 (09:00→20:46)
[2022-12-11] MEDS: ANEXSIA, NORCO 7.5MG/325MG TABLET(HYDROCODONE/APAP) PO SCH ×3 (09:05→23:24)
[2022-12-11] MEDS: POLYVINYL ALCOHOL OPHTH SOLN 15ML (LIQUITEARS) OU SCH ×4 (09:15→20:45)
[2022-12-11] MEDS ORDERED: POTASSIUM CHLORIDE 10% LIQ 20MEQ/15ML UDC PO ONE (10:00)
[2022-12-11] MEDS: LIDOCAINE 5% (LIDODERM) PATCH TOP PRN (10:25)
[2022-12-11] MEDS: ALBUTEROL SULFATE 2.5MG/0.5ML INH NEB SOLN NEB PRN ×2 (12:15→18:09)
[2022-12-11] MEDS: CYCLOBENZAPRINE 5MG TABLET PO PRN (14:06)
[2022-12-11] MEDS ORDERED: INSULIN LISPRO (NovoLOG) PER UNIT SC ONE (18:15)
[2022-12-11] MEDS ORDERED: BISACODYL 10MG SUPP PR ONE (18:15)
[2022-12-11] MEDS: ATORVASTATIN 20 MG TAB PO SCH (20:40)
[2022-12-11] MEDS: DOCUSATE SODIUM 100MG CAPSULE PO SCH (20:40)
[2022-12-11] MEDS: AZITHROMYCIN 250MG TABLET PO SCH (20:41)
[2022-12-11] MEDS: FAMOTIDINE 20 MG TAB PO SCH (20:41)
[2022-12-11] MEDS: LEVEMIR (INSULIN DETEMIR) 1 UNITS/0.01ML SC SCH (20:44)
[2022-12-11] MEDS: ENOXAPARIN 40MG/0.4ML SYRINGE (J1650 PER 10MG) SC SCH (20:49)
[2022-12-11] MEDS ORDERED: ALPRAZolam 0.5 MG TAB PO ONE (21:05)
[2022-12-12] VITALS (22 sets, daily range): BP systolic 116–154; BP diastolic 61–82; TEMP 95.5–98.5; O2SAT 85–98
[2022-12-12] MEDS: IPRATROPIUM 0.5MG/ALBUTEROL 2.5MG INH SOL UD 3ML (DUONEB) NEB SCH ×4 (01:39→19:47)
[2022-12-12 05:22] LABS: BASO % 0.2 % (0.0-1.0); EOS % 0.4 % (0.0-3.0); HEMATOCRIT 34.9 % (36.0-47.0); HEMOGLOBIN 10.7 g/dl (12.0-15.5); LYMPH # 0.7 10^3/uL (1.5-5.0); MEAN CORPUSCULAR HEMOGLOBIN 27.1 pg (27.0-33.0); MEAN CORPUSCULAR HGB CONC 30.7 g/dl (32.0-36.5); MEAN CORPUSCULAR VOLUME 88.4 fl (80.0-96.0); MONO # 0.3 10^3/uL (0.0-0.8); MONO % 3.4 % (2.0-8.0); NEUTROPHILS # 8.9 10^3/uL (1.5-8.5); NEUTROPHILS % 88.4 % (36.0-66.0); PLATELET COUNT, AUTOMATED 169 10^3/uL (150-450); RED BLOOD COUNT 3.95 10^6/uL (4.00-5.40); WHITE BLOOD COUNT 10.1 10^3/uL (4.0-10.0)
[2022-12-12 05:45] LABS: ALBUMIN 3.1 G/DL (3.2-5.2); ALKALINE PHOSPHATASE 109 U/L (46-116); ALT/SGPT 33 U/L (7.0-40); AST/SGOT 33 U/L (<34); BILIRUBIN,TOTAL 0.6 MG/DL (0.3-1.2); BLOOD UREA NITROGEN 20 MG/DL (9-23); CALCIUM LEVEL 9.1 MG/DL (8.3-10.6); CARBON DIOXIDE LEVEL 38 MMOL/L (20-31); CHLORIDE LEVEL 94 MMOL/L (98-107); CREATININE FOR GFR 0.45 MG/DL (0.55-1.30); GLOMERULAR FILTRATION RATE > 60.0 (>45); GLUCOSE, FASTING 163 MG/DL (74-106); MAGNESIUM LEVEL 1.9 MG/DL (1.8-2.4); POTASSIUM SERUM 3.3 MMOL/L (3.5-5.1); SODIUM LEVEL 142 MMOL/L (136-145); TOTAL PROTEIN 6.2 G/DL (5.7-8.2)
[2022-12-12] MEDS: LEVOTHYROXINE 25MCG TABLET (0.025MG) PO SCH (06:09)
[2022-12-12 07:17] LABS: LDH LACTATE DEHYDROGENASE 331 U/L (120-246)
[2022-12-12] MEDS: NYSTATIN CREAM 15GM TOP SCH ×2 (08:14→21:00)
[2022-12-12] MEDS: ADVAIR HFA 230/21MCG INHALER INH SCH ×2 (08:30→19:48)
[2022-12-12] MEDS: TIOTROPIUM INHALER/CAPSULE (SPIRIVA) INH SCH (08:30)
[2022-12-12] MEDS: INSULIN LISPRO (NovoLOG) PER UNIT SC SCH ×4 (08:38→21:08)
[2022-12-12] MEDS: POTASSIUM CHLORIDE 10% LIQ 20MEQ/15ML UDC PO SCH (08:39)
[2022-12-12] MEDS: LEVEMIR (INSULIN DETEMIR) 1 UNITS/0.01ML SC SCH ×2 (08:39→21:08)
[2022-12-12] MEDS: MIRALAX *UNIT DOSE* 17GM PACKET PO SCH (08:39)
[2022-12-12] MEDS: CALCIUM CARBONATE 500 MG CHEW U/D PO SCH ×4 (08:39→21:05)
[2022-12-12] MEDS: ASPIRIN 81MG ENTERIC TABLET PO SCH (08:40)
[2022-12-12] MEDS: ALPRAZolam 0.5 MG TAB PO SCH ×2 (08:40→21:05)
[2022-12-12] MEDS: buPROPion **XL** TABLET 150MG (WELLBUTRIN XL) PO SCH (08:40)
[2022-12-12] MEDS: DOCUSATE SODIUM 100MG CAPSULE PO SCH ×2 (08:40→21:06)
[2022-12-12] MEDS: predniSONE 10MG TAB PO SCH (08:40)
[2022-12-12] MEDS: MAGNESIUM OXIDE 400MG TAB (MAG-OX) PO SCH ×2 (08:40→21:06)
[2022-12-12] MEDS: ACETAMINOPHEN TAB 650MG DOSE (2X325MG) PO PRN (08:41)
[2022-12-12] MEDS: PANTOPRAZOLE 40MG TAB (PROTONIX) PO SCH (08:42)
[2022-12-12] MEDS: GABAPENTIN 100 MG CAP PO SCH ×2 (08:42→21:05)
[2022-12-12] MEDS: TORSEMIDE 100 MG TAB PO SCH (08:42)
[2022-12-12] MEDS: FLUoxetine 10 MG CAP PO SCH (08:42)
[2022-12-12] MEDS: SPIRONOLACTONE 25 MG TAB PO SCH (08:42)
[2022-12-12] MEDS: FLUoxetine 20MG CAP PO SCH (08:42)
[2022-12-12] MEDS: BISOPROLOL FUM 2.5 MG PER 1/2TAB PO SCH (08:44)
[2022-12-12] MEDS: ANEXSIA, NORCO 7.5MG/325MG TABLET(HYDROCODONE/APAP) PO SCH ×3 (08:44→21:06)
[2022-12-12] MEDS: POLYVINYL ALCOHOL OPHTH SOLN 15ML (LIQUITEARS) OU SCH ×4 (08:45→21:07)
[2022-12-12] MEDS ORDERED: POTASSIUM CHLORIDE 10% LIQ 20MEQ/15ML UDC PO SCH (09:00)
[2022-12-12] MEDS ORDERED: POTASSIUM CHLORIDE 10MEQ SR TABLET PO SCH (09:00)
[2022-12-12 13:31] LABS: PH BODY FLUID 7.709 UNITS (NOT ESTABLISHED); SOURCE, BODY FLUID pH PLEURAL
[2022-12-12 13:41] LABS: SOURCE, BODY FLUID PLEURAL
[2022-12-12 13:42] LABS: APPEARANCE, BODY FLUID HAZY (CLEAR); PLEURAL FL COLOR ORANGE (COLORLESS)
[2022-12-12 13:45] LABS: SOURCE, BODY FLUID ALBUMIN PLEURAL
[2022-12-12 13:49] LABS: SOURCE, BODY FLUID GLUCOSE PLEURAL
[2022-12-12 13:51] LABS: LDH, BODY FLUID 384 U/L (NOT ESTABLISHED); SOURCE, BODY FLUID LDH PLEURAL
[2022-12-12 13:52] LABS: SOURCE, BODY FLUID TOT PROTEIN PLEURAL; TOTAL PROTEIN, BODY FLUID 4.2 G/DL (NOT ESTABLISHED)
[2022-12-12] MEDS: ALBUTEROL SULFATE 2.5MG/0.5ML INH NEB SOLN NEB PRN (15:55)
[2022-12-12] MEDS: CYCLOBENZAPRINE 5MG TABLET PO PRN (16:39)
[2022-12-12] MEDS: LIDOCAINE 5% (LIDODERM) PATCH TOP PRN (18:08)
[2022-12-12] MEDS: ENOXAPARIN 40MG/0.4ML SYRINGE (J1650 PER 10MG) SC SCH (21:05)
[2022-12-12] MEDS: ATORVASTATIN 20 MG TAB PO SCH (21:06)
[2022-12-12] MEDS: FAMOTIDINE 20 MG TAB PO SCH (21:06)
[2022-12-13] VITALS (16 sets, daily range): BP systolic 134–151; BP diastolic 63–76; TEMP 96.6–98.6; O2SAT 92–100
[2022-12-13] MEDS: IPRATROPIUM 0.5MG/ALBUTEROL 2.5MG INH SOL UD 3ML (DUONEB) NEB SCH ×4 (01:29→19:19)
[2022-12-13] MEDS: LEVOTHYROXINE 25MCG TABLET (0.025MG) PO SCH (06:06)
[2022-12-13] MEDS: ACETAMINOPHEN TAB 650MG DOSE (2X325MG) PO PRN (06:06)
[2022-12-13 07:01] LABS: BASO % 0.3 % (0.0-1.0); EOS # 0.1 10^3/uL (0.0-0.5); EOS % 1.7 % (0.0-3.0); HEMATOCRIT 31.6 % (36.0-47.0); HEMOGLOBIN 9.7 g/dl (12.0-15.5); LYMPH % 12.5 % (24.0-44.0); MEAN CORPUSCULAR HEMOGLOBIN 27.2 pg (27.0-33.0); MEAN CORPUSCULAR HGB CONC 30.7 g/dl (32.0-36.5); MEAN CORPUSCULAR VOLUME 88.8 fl (80.0-96.0); MONO # 0.2 10^3/uL (0.0-0.8); NEUTROPHILS # 6.5 10^3/uL (1.5-8.5); NEUTROPHILS % 81.9 % (36.0-66.0); PLATELET COUNT, AUTOMATED 122 10^3/uL (150-450); RED BLOOD COUNT 3.56 10^6/uL (4.00-5.40); WHITE BLOOD COUNT 7.9 10^3/uL (4.0-10.0)
[2022-12-13 07:25] LABS: ALBUMIN 2.9 G/DL (3.2-5.2); ALKALINE PHOSPHATASE 116 U/L (46-116); ALT/SGPT 32 U/L (7.0-40); AST/SGOT 28 U/L (<34); BILIRUBIN,TOTAL 0.6 MG/DL (0.3-1.2); BLOOD UREA NITROGEN 17 MG/DL (9-23); CALCIUM LEVEL 8.7 MG/DL (8.3-10.6); CARBON DIOXIDE LEVEL > 40.0 MMOL/L (20-31); CHLORIDE LEVEL 93 MMOL/L (98-107); CREATININE FOR GFR 0.52 MG/DL (0.55-1.30); GLOMERULAR FILTRATION RATE > 60.0 (>45); GLUCOSE, FASTING 185 MG/DL (74-106); MAGNESIUM LEVEL 1.8 MG/DL (1.8-2.4); POTASSIUM SERUM 4.1 MMOL/L (3.5-5.1); SODIUM LEVEL 140 MMOL/L (136-145); TOTAL PROTEIN 5.7 G/DL (5.7-8.2)
[2022-12-13] MEDS: TIOTROPIUM INHALER/CAPSULE (SPIRIVA) INH SCH (08:10)
[2022-12-13] MEDS: ADVAIR HFA 230/21MCG INHALER INH SCH ×2 (08:11→19:20)
[2022-12-13] MEDS: INSULIN LISPRO (NovoLOG) PER UNIT SC SCH ×4 (08:54→20:53)
[2022-12-13] MEDS: LEVEMIR (INSULIN DETEMIR) 1 UNITS/0.01ML SC SCH ×2 (08:54→20:53)
[2022-12-13] MEDS: MIRALAX *UNIT DOSE* 17GM PACKET PO SCH (08:54)
[2022-12-13] MEDS: POTASSIUM CHLORIDE 10% LIQ 20MEQ/15ML UDC PO SCH (08:55)
[2022-12-13] MEDS: ANEXSIA, NORCO 7.5MG/325MG TABLET(HYDROCODONE/APAP) PO SCH ×3 (08:55→20:54)
[2022-12-13] MEDS: TORSEMIDE 100 MG TAB PO SCH (08:56)
[2022-12-13] MEDS: ALPRAZolam 0.5 MG TAB PO SCH ×2 (08:56→20:54)
[2022-12-13] MEDS: GABAPENTIN 100 MG CAP PO SCH ×2 (08:56→20:55)
[2022-12-13] MEDS: buPROPion **XL** TABLET 150MG (WELLBUTRIN XL) PO SCH (08:56)
[2022-12-13] MEDS: MAGNESIUM OXIDE 400MG TAB (MAG-OX) PO SCH ×2 (08:56→20:54)
[2022-12-13] MEDS: DOCUSATE SODIUM 100MG CAPSULE PO SCH ×2 (08:56→20:55)
[2022-12-13] MEDS: PANTOPRAZOLE 40MG TAB (PROTONIX) PO SCH (08:56)
[2022-12-13] MEDS: SPIRONOLACTONE 25 MG TAB PO SCH (08:56)
[2022-12-13] MEDS: ASPIRIN 81MG ENTERIC TABLET PO SCH (08:56)
[2022-12-13] MEDS: BISOPROLOL FUM 2.5 MG PER 1/2TAB PO SCH (08:57)
[2022-12-13] MEDS: predniSONE 10MG TAB PO SCH (08:57)
[2022-12-13] MEDS: CALCIUM CARBONATE 500 MG CHEW U/D PO SCH ×4 (08:57→20:54)
[2022-12-13] MEDS: FLUoxetine 20MG CAP PO SCH (08:57)
[2022-12-13] MEDS: FLUoxetine 10 MG CAP PO SCH (08:57)
[2022-12-13] MEDS: POLYVINYL ALCOHOL OPHTH SOLN 15ML (LIQUITEARS) OU SCH ×4 (08:59→20:55)
[2022-12-13] MEDS: NYSTATIN CREAM 15GM TOP SCH ×2 (08:59→20:55)
[2022-12-13] MEDS: ONDANSETRON 4MG TAB PO PRN (13:37)
[2022-12-13] MEDS: CYCLOBENZAPRINE 5MG TABLET PO PRN (13:37)
[2022-12-13] MEDS: ENOXAPARIN 40MG/0.4ML SYRINGE (J1650 PER 10MG) SC SCH (20:53)
[2022-12-13] MEDS: ATORVASTATIN 20 MG TAB PO SCH (20:54)
[2022-12-13] MEDS: FAMOTIDINE 20 MG TAB PO SCH (20:55)
[2022-12-14] MEDS: IPRATROPIUM 0.5MG/ALBUTEROL 2.5MG INH SOL UD 3ML (DUONEB) NEB SCH ×4 (01:13→20:14)
[2022-12-14] MEDS: LEVOTHYROXINE 25MCG TABLET (0.025MG) PO SCH (05:48)
[2022-12-14] MEDS: ACETAMINOPHEN TAB 650MG DOSE (2X325MG) PO PRN ×2 (06:29→11:36)
[2022-12-14 06:50] LABS: BASO % 0.5 % (0.0-1.0); EOS # 0.2 10^3/uL (0.0-0.5); HEMATOCRIT 30.5 % (36.0-47.0); HEMOGLOBIN 9.2 g/dl (12.0-15.5); LYMPH % 13.4 % (24.0-44.0); MEAN CORPUSCULAR HEMOGLOBIN 26.6 pg (27.0-33.0); MEAN CORPUSCULAR HGB CONC 30.2 g/dl (32.0-36.5); MEAN CORPUSCULAR VOLUME 88.2 fl (80.0-96.0); MONO # 0.3 10^3/uL (0.0-0.8); NEUTROPHILS # 6.1 10^3/uL (1.5-8.5); NEUTROPHILS % 78.9 % (36.0-66.0); PLATELET COUNT, AUTOMATED 124 10^3/uL (150-450); RED BLOOD COUNT 3.46 10^6/uL (4.00-5.40); WHITE BLOOD COUNT 7.7 10^3/uL (4.0-10.0)
[2022-12-14 07:22] LABS: ALBUMIN 2.7 G/DL (3.2-5.2); ALKALINE PHOSPHATASE 116 U/L (46-116); ALT/SGPT 29 U/L (7.0-40); AST/SGOT 25 U/L (<34); BILIRUBIN,TOTAL 0.5 MG/DL (0.3-1.2); BLOOD UREA NITROGEN 15 MG/DL (9-23); CALCIUM LEVEL 8.6 MG/DL (8.3-10.6); CARBON DIOXIDE LEVEL > 40.0 MMOL/L (20-31); CHLORIDE LEVEL 95 MMOL/L (98-107); CREATININE FOR GFR 0.45 MG/DL (0.55-1.30); GLOMERULAR FILTRATION RATE > 60.0 (>45); GLUCOSE, FASTING 169 MG/DL (74-106); MAGNESIUM LEVEL 1.7 MG/DL (1.8-2.4); POTASSIUM SERUM 3.5 MMOL/L (3.5-5.1); SODIUM LEVEL 139 MMOL/L (136-145); TOTAL PROTEIN 5.5 G/DL (5.7-8.2)
[2022-12-14 08:01] VITALS: BP 140/90; TEMP 97.1; O2SAT 94
[2022-12-14] MEDS: ADVAIR HFA 230/21MCG INHALER INH SCH ×2 (08:04→20:14)
[2022-12-14] MEDS: TIOTROPIUM INHALER/CAPSULE (SPIRIVA) INH SCH (08:04)
[2022-12-14] MEDS: SPIRONOLACTONE 25 MG TAB PO SCH (08:22)
[2022-12-14] MEDS: PANTOPRAZOLE 40MG TAB (PROTONIX) PO SCH (08:22)
[2022-12-14] MEDS: buPROPion **XL** TABLET 150MG (WELLBUTRIN XL) PO SCH (08:22)
[2022-12-14] MEDS: POTASSIUM CHLORIDE 10% LIQ 20MEQ/15ML UDC PO SCH (08:22)
[2022-12-14] MEDS: ASPIRIN 81MG ENTERIC TABLET PO SCH (08:23)
[2022-12-14] MEDS: TORSEMIDE 100 MG TAB PO SCH (08:23)
[2022-12-14] MEDS: ONDANSETRON 4MG TAB PO PRN (08:23)
[2022-12-14] MEDS: MAGNESIUM OXIDE 400MG TAB (MAG-OX) PO SCH ×2 (08:23→20:34)
[2022-12-14] MEDS: GABAPENTIN 100 MG CAP PO SCH ×2 (08:23→20:34)
[2022-12-14] MEDS: FLUoxetine 20MG CAP PO SCH (08:23)
[2022-12-14] MEDS: FLUoxetine 10 MG CAP PO SCH (08:23)
[2022-12-14] MEDS: DOCUSATE SODIUM 100MG CAPSULE PO SCH ×2 (08:23→20:35)
[2022-12-14] MEDS: BISOPROLOL FUM 2.5 MG PER 1/2TAB PO SCH (08:24)
[2022-12-14] MEDS: ALPRAZolam 0.5 MG TAB PO SCH ×2 (08:24→20:34)
[2022-12-14] MEDS: predniSONE 10MG TAB PO SCH (08:24)
[2022-12-14] MEDS: CALCIUM CARBONATE 500 MG CHEW U/D PO SCH ×4 (08:25→20:33)
[2022-12-14] MEDS: ANEXSIA, NORCO 7.5MG/325MG TABLET(HYDROCODONE/APAP) PO SCH ×3 (08:25→20:35)
[2022-12-14] MEDS: LEVEMIR (INSULIN DETEMIR) 1 UNITS/0.01ML SC SCH ×2 (08:25→20:33)
[2022-12-14] MEDS: INSULIN LISPRO (NovoLOG) PER UNIT SC SCH ×4 (08:26→20:33)
[2022-12-14] MEDS: NYSTATIN CREAM 15GM TOP SCH ×2 (08:26→20:35)
[2022-12-14] MEDS: POLYVINYL ALCOHOL OPHTH SOLN 15ML (LIQUITEARS) OU SCH ×4 (08:26→20:33)
[2022-12-14] MEDS: MIRALAX *UNIT DOSE* 17GM PACKET PO SCH (08:26)
[2022-12-14] MEDS ORDERED: POTASSIUM CHLORIDE 10MEQ SR TABLET PO ONE (10:20)
[2022-12-14] MEDS: ALBUTEROL SULFATE 2.5MG/0.5ML INH NEB SOLN NEB PRN (11:38)
[2022-12-14 12:12] VITALS: O2SAT 82
[2022-12-14 12:15] VITALS: O2SAT 90
[2022-12-14 20:00] VITALS: BP 142/76; TEMP 97; O2SAT 93
[2022-12-14] MEDS: ATORVASTATIN 20 MG TAB PO SCH (20:34)
[2022-12-14] MEDS: ENOXAPARIN 40MG/0.4ML SYRINGE (J1650 PER 10MG) SC SCH (20:35)
[2022-12-14] MEDS: FAMOTIDINE 20 MG TAB PO SCH (20:35)
[2022-12-15] MEDS: IPRATROPIUM 0.5MG/ALBUTEROL 2.5MG INH SOL UD 3ML (DUONEB) NEB SCH ×4 (01:07→19:27)
[2022-12-15 05:10] LABS: BASO % 0.5 % (0.0-1.0); EOS # 0.1 10^3/uL (0.0-0.5); EOS % 1.5 % (0.0-3.0); HEMATOCRIT 31.3 % (36.0-47.0); HEMOGLOBIN 9.4 g/dl (12.0-15.5); LYMPH # 1.1 10^3/uL (1.5-5.0); LYMPH % 12.9 % (24.0-44.0); MEAN CORPUSCULAR HEMOGLOBIN 26.7 pg (27.0-33.0); MEAN CORPUSCULAR VOLUME 88.9 fl (80.0-96.0); MONO # 0.4 10^3/uL (0.0-0.8); MONO % 5.4 % (2.0-8.0); NEUTROPHILS # 6.5 10^3/uL (1.5-8.5); NEUTROPHILS % 78.6 % (36.0-66.0); PLATELET COUNT, AUTOMATED 112 10^3/uL (150-450); RED BLOOD COUNT 3.52 10^6/uL (4.00-5.40); WHITE BLOOD COUNT 8.2 10^3/uL (4.0-10.0)
[2022-12-15 05:23] LABS: ALBUMIN 2.8 G/DL (3.2-5.2); ALKALINE PHOSPHATASE 113 U/L (46-116); ALT/SGPT 28 U/L (7.0-40); AST/SGOT 23 U/L (<34); BILIRUBIN,TOTAL 0.4 MG/DL (0.3-1.2); BLOOD UREA NITROGEN 17 MG/DL (9-23); CALCIUM LEVEL 8.6 MG/DL (8.3-10.6); CARBON DIOXIDE LEVEL 32 MMOL/L (20-31); CHLORIDE LEVEL 100 MMOL/L (98-107); CREATININE FOR GFR 0.41 MG/DL (0.55-1.30); GLOMERULAR FILTRATION RATE > 60.0 (>45); GLUCOSE, FASTING 183 MG/DL (74-106); MAGNESIUM LEVEL 1.6 MG/DL (1.8-2.4); POTASSIUM SERUM 3.3 MMOL/L (3.5-5.1); SODIUM LEVEL 142 MMOL/L (136-145); TOTAL PROTEIN 5.6 G/DL (5.7-8.2)
[2022-12-15] MEDS: LEVOTHYROXINE 25MCG TABLET (0.025MG) PO SCH (06:00)
[2022-12-15] MEDS: KCL 10MEQ/100ML SWI (KRUN) 10 MEQ in IV 1 EA IV SCH ×2 (08:00→08:03)
[2022-12-15] MEDS: INSULIN LISPRO (NovoLOG) PER UNIT SC SCH ×2 (08:03→12:23)
[2022-12-15 08:15] VITALS: BP 160/77; TEMP 96.4; O2SAT 96
[2022-12-15] MEDS: ADVAIR HFA 230/21MCG INHALER INH SCH (08:26)
[2022-12-15] MEDS: TIOTROPIUM INHALER/CAPSULE (SPIRIVA) INH SCH (08:26)
[2022-12-15] MEDS ORDERED: diazePAM 2 MG TAB PO PRN (08:45)
[2022-12-15] MEDS: SPIRONOLACTONE 25 MG TAB PO SCH (08:54)
[2022-12-15] MEDS: predniSONE 10MG TAB PO SCH (08:57)
[2022-12-15] MEDS: TORSEMIDE 100 MG TAB PO SCH (08:57)
[2022-12-15] MEDS: ANEXSIA, NORCO 7.5MG/325MG TABLET(HYDROCODONE/APAP) PO SCH (08:57)
[2022-12-15] MEDS: ASPIRIN 81MG ENTERIC TABLET PO SCH (08:58)
[2022-12-15] MEDS: MAGNESIUM OXIDE 400MG TAB (MAG-OX) PO SCH (08:58)
[2022-12-15] MEDS: POTASSIUM CHLORIDE 10% LIQ 20MEQ/15ML UDC PO SCH (08:58)
[2022-12-15] MEDS: MIRALAX *UNIT DOSE* 17GM PACKET PO SCH (08:58)
[2022-12-15] MEDS: GABAPENTIN 100 MG CAP PO SCH ×2 (08:58→20:05)
[2022-12-15] MEDS: buPROPion **XL** TABLET 150MG (WELLBUTRIN XL) PO SCH (08:59)
[2022-12-15] MEDS: FLUoxetine 10 MG CAP PO SCH (08:59)
[2022-12-15] MEDS: CALCIUM CARBONATE 500 MG CHEW U/D PO SCH ×2 (08:59→12:24)
[2022-12-15] MEDS: FLUoxetine 20MG CAP PO SCH (08:59)
[2022-12-15] MEDS: PANTOPRAZOLE 40MG TAB (PROTONIX) PO SCH (08:59)
[2022-12-15] MEDS: NYSTATIN CREAM 15GM TOP SCH ×2 (09:00→20:06)
[2022-12-15] MEDS: ALPRAZolam 0.5 MG TAB PO SCH ×2 (09:00→20:05)
[2022-12-15] MEDS: DOCUSATE SODIUM 100MG CAPSULE PO SCH (09:00)
[2022-12-15 09:01] VITALS: BP 160/70
[2022-12-15] MEDS: BISOPROLOL FUM 2.5 MG PER 1/2TAB PO SCH (09:01)
[2022-12-15] MEDS: POLYVINYL ALCOHOL OPHTH SOLN 15ML (LIQUITEARS) OU SCH ×4 (09:01→20:06)
[2022-12-15] MEDS: LEVEMIR (INSULIN DETEMIR) 1 UNITS/0.01ML SC SCH (09:01)
[2022-12-15] MEDS ORDERED: POTASSIUM CHLORIDE 10% LIQ 20MEQ/15ML UDC PO ONE (10:15)
[2022-12-15] MEDS: MAG SULF 1GM/100ML (MAG RUN) 1 GM in IV 1 EA IV SCH ×2 (10:35→13:32)
[2022-12-15] MEDS: BUDESONIDE 0.5 MG/2 ML INHALATION SUSPENSION INH SCH ×2 (12:04→19:27)
[2022-12-15] MEDS: FORMOTEROL FUMARATE 20 MCG/2 ML INHALATION SOLUTION (PERFOROMIST) INH SCH ×2 (12:04→19:27)
[2022-12-15] MEDS ORDERED: HYOSCYAMINE SULFATE 0.125 MG SUBL TABLET PO PRN (15:00)
[2022-12-15] MEDS: FAMOTIDINE 20 MG TAB PO SCH (20:05)
[2022-12-15] MEDS: CYCLOBENZAPRINE 5MG TABLET PO PRN (20:07)
[2022-12-16] MEDS: IPRATROPIUM 0.5MG/ALBUTEROL 2.5MG INH SOL UD 3ML (DUONEB) NEB SCH ×4 (01:01→18:13)
[2022-12-16] MEDS: MORPHINE 10MG/0.5ML ORAL CONCENTRATE SOLUTION U/D SL PRN ×4 (06:42→20:59)
[2022-12-16 06:58] LABS: ALBUMIN 2.9 G/DL (3.2-5.2); ALKALINE PHOSPHATASE 120 U/L (46-116); ALT/SGPT 31 U/L (7.0-40); AST/SGOT 23 U/L (<34); BILIRUBIN,TOTAL 0.5 MG/DL (0.3-1.2); BLOOD UREA NITROGEN 13 MG/DL (9-23); CALCIUM LEVEL 8.9 MG/DL (8.3-10.6); CARBON DIOXIDE LEVEL 36 MMOL/L (20-31); CHLORIDE LEVEL 100 MMOL/L (98-107); CREATININE FOR GFR 0.41 MG/DL (0.55-1.30); GLOMERULAR FILTRATION RATE > 60.0 (>45); GLUCOSE, FASTING 160 MG/DL (74-106); MAGNESIUM LEVEL 1.8 MG/DL (1.8-2.4); POTASSIUM SERUM 3.2 MMOL/L (3.5-5.1); SODIUM LEVEL 143 MMOL/L (136-145); TOTAL PROTEIN 5.9 G/DL (5.7-8.2)
[2022-12-16] MEDS: FORMOTEROL FUMARATE 20 MCG/2 ML INHALATION SOLUTION (PERFOROMIST) INH SCH ×2 (07:36→20:08)
[2022-12-16] MEDS: TIOTROPIUM INHALER/CAPSULE (SPIRIVA) INH SCH (07:36)
[2022-12-16] MEDS: BUDESONIDE 0.5 MG/2 ML INHALATION SUSPENSION INH SCH ×2 (07:36→20:08)
[2022-12-16] MEDS: MIRALAX *UNIT DOSE* 17GM PACKET PO SCH (08:27)
[2022-12-16] MEDS: GABAPENTIN 100 MG CAP PO SCH ×2 (08:46→20:58)
[2022-12-16] MEDS: FLUoxetine 10 MG CAP PO SCH (08:46)
[2022-12-16] MEDS: ALPRAZolam 0.5 MG TAB PO SCH ×2 (08:46→20:57)
[2022-12-16] MEDS: PANTOPRAZOLE 40MG TAB (PROTONIX) PO SCH (08:46)
[2022-12-16] MEDS: buPROPion **XL** TABLET 150MG (WELLBUTRIN XL) PO SCH (08:46)
[2022-12-16] MEDS: FLUoxetine 20MG CAP PO SCH (08:46)
[2022-12-16] MEDS: CYCLOBENZAPRINE 5MG TABLET PO PRN (08:46)
[2022-12-16] MEDS: POLYVINYL ALCOHOL OPHTH SOLN 15ML (LIQUITEARS) OU SCH ×4 (08:48→21:00)
[2022-12-16] MEDS: NYSTATIN CREAM 15GM TOP SCH ×2 (08:48→21:00)
[2022-12-16 08:51] LABS: BASO % 0.6 % (0.0-1.0); EOS # 0.1 10^3/uL (0.0-0.5); EOS % 1.1 % (0.0-3.0); HEMATOCRIT 32.5 % (36.0-47.0); LYMPH # 0.9 10^3/uL (1.5-5.0); LYMPH % 14.8 % (24.0-44.0); MEAN CORPUSCULAR HEMOGLOBIN 26.7 pg (27.0-33.0); MEAN CORPUSCULAR HGB CONC 30.8 g/dl (32.0-36.5); MEAN CORPUSCULAR VOLUME 86.9 fl (80.0-96.0); MONO # 0.5 10^3/uL (0.0-0.8); MONO % 8.5 % (2.0-8.0); NEUTROPHILS # 4.6 10^3/uL (1.5-8.5); NEUTROPHILS % 74.2 % (36.0-66.0); RED BLOOD COUNT 3.74 10^6/uL (4.00-5.40); WHITE BLOOD COUNT 6.2 10^3/uL (4.0-10.0)
[2022-12-16 09:19] LABS: PLATELET COUNT, AUTOMATED 95 10^3/uL (150-450)
[2022-12-16] MEDS: ONDANSETRON 4MG TAB PO PRN ×2 (10:29→20:59)
[2022-12-16] MEDS ORDERED: MORP1SOL5 PO (11:24)
[2022-12-16] MEDS ORDERED: ATIV1TAB10 PO (11:24)
[2022-12-16] MEDS ORDERED: HYOS125TA PO (11:24)
[2022-12-16] MEDS ORDERED: PROMETHAZINE 25MG/ML 1ML VIAL IV PRN (11:50)
[2022-12-16] MEDS: FAMOTIDINE 20 MG TAB PO SCH (20:58)
[2022-12-17] MEDS: MORPHINE 10MG/0.5ML ORAL CONCENTRATE SOLUTION U/D SL PRN ×4 (01:18→18:52)
[2022-12-17] MEDS: IPRATROPIUM 0.5MG/ALBUTEROL 2.5MG INH SOL UD 3ML (DUONEB) NEB SCH ×4 (01:23→18:05)
[2022-12-17] MEDS: BUDESONIDE 0.5 MG/2 ML INHALATION SUSPENSION INH SCH ×2 (07:32→20:56)
[2022-12-17] MEDS: TIOTROPIUM INHALER/CAPSULE (SPIRIVA) INH SCH (07:32)
[2022-12-17] MEDS: FORMOTEROL FUMARATE 20 MCG/2 ML INHALATION SOLUTION (PERFOROMIST) INH SCH ×2 (07:33→20:56)
[2022-12-17] MEDS: MIRALAX *UNIT DOSE* 17GM PACKET PO SCH ×2 (09:00→09:43)
[2022-12-17] MEDS: NYSTATIN CREAM 15GM TOP SCH ×2 (09:00→20:58)
[2022-12-17] MEDS: buPROPion **XL** TABLET 150MG (WELLBUTRIN XL) PO SCH (09:34)
[2022-12-17] MEDS: FLUoxetine 20MG CAP PO SCH (09:35)
[2022-12-17] MEDS: GABAPENTIN 100 MG CAP PO SCH ×2 (09:35→20:57)
[2022-12-17] MEDS: PANTOPRAZOLE 40MG TAB (PROTONIX) PO SCH (09:35)
[2022-12-17] MEDS: CYCLOBENZAPRINE 5MG TABLET PO PRN (09:35)
[2022-12-17] MEDS: ALPRAZolam 0.5 MG TAB PO SCH ×2 (09:35→20:57)
[2022-12-17] MEDS: FLUoxetine 10 MG CAP PO SCH (09:35)
[2022-12-17] MEDS: ACETAMINOPHEN TAB 650MG DOSE (2X325MG) PO PRN ×2 (09:36→18:17)
[2022-12-17] MEDS: ONDANSETRON 4MG TAB PO PRN ×2 (09:38→18:17)
[2022-12-17] MEDS: POLYVINYL ALCOHOL OPHTH SOLN 15ML (LIQUITEARS) OU SCH ×4 (09:39→20:58)
[2022-12-17 19:34] VITALS: O2SAT 96
[2022-12-17] MEDS: FAMOTIDINE 20 MG TAB PO SCH (20:57)
[2022-12-18] MEDS: LORazepam 1 MG TAB PO PRN ×2 (00:20→03:34)
[2022-12-18] MEDS: MORPHINE 10MG/0.5ML ORAL CONCENTRATE SOLUTION U/D SL PRN ×5 (00:22→22:05)
[2022-12-18] MEDS: IPRATROPIUM 0.5MG/ALBUTEROL 2.5MG INH SOL UD 3ML (DUONEB) NEB SCH ×4 (04:05→20:40)
[2022-12-18] MEDS: TIOTROPIUM INHALER/CAPSULE (SPIRIVA) INH SCH (07:08)
[2022-12-18] MEDS: BUDESONIDE 0.5 MG/2 ML INHALATION SUSPENSION INH SCH ×2 (07:08→20:40)
[2022-12-18] MEDS: FORMOTEROL FUMARATE 20 MCG/2 ML INHALATION SOLUTION (PERFOROMIST) INH SCH ×2 (07:08→20:40)
[2022-12-18] MEDS: NYSTATIN CREAM 15GM TOP SCH ×2 (08:00→21:00)
[2022-12-18] MEDS: LIDOCAINE 5% (LIDODERM) PATCH TOP PRN (08:13)
[2022-12-18] MEDS: GABAPENTIN 100 MG CAP PO SCH ×2 (08:13→22:02)
[2022-12-18] MEDS: ALPRAZolam 0.5 MG TAB PO SCH ×2 (08:13→22:02)
[2022-12-18] MEDS: FLUoxetine 20MG CAP PO SCH (08:14)
[2022-12-18] MEDS: PANTOPRAZOLE 40MG TAB (PROTONIX) PO SCH (08:14)
[2022-12-18] MEDS: FLUoxetine 10 MG CAP PO SCH (08:14)
[2022-12-18] MEDS: MIRALAX *UNIT DOSE* 17GM PACKET PO SCH (08:14)
[2022-12-18] MEDS: buPROPion **XL** TABLET 150MG (WELLBUTRIN XL) PO SCH (08:14)
[2022-12-18] MEDS: ACETAMINOPHEN TAB 650MG DOSE (2X325MG) PO PRN ×2 (08:14→12:22)
[2022-12-18] MEDS: POLYVINYL ALCOHOL OPHTH SOLN 15ML (LIQUITEARS) OU SCH ×4 (08:14→22:03)
[2022-12-18] MEDS: CYCLOBENZAPRINE 5MG TABLET PO PRN ×2 (08:14→22:03)
[2022-12-18] MEDS: ONDANSETRON 4MG TAB PO PRN ×2 (08:20→22:03)
[2022-12-18] MEDS: FAMOTIDINE 20 MG TAB PO SCH (22:02)
[2022-12-19] MEDS: IPRATROPIUM 0.5MG/ALBUTEROL 2.5MG INH SOL UD 3ML (DUONEB) NEB SCH ×5 (00:57→20:33)
[2022-12-19] MEDS: LORazepam 1 MG TAB PO PRN ×2 (04:27→08:01)
[2022-12-19] MEDS: MORPHINE 10MG/0.5ML ORAL CONCENTRATE SOLUTION U/D SL PRN ×4 (04:28→17:50)
[2022-12-19] MEDS: BUDESONIDE 0.5 MG/2 ML INHALATION SUSPENSION INH SCH ×2 (07:04→19:20)
[2022-12-19] MEDS: TIOTROPIUM INHALER/CAPSULE (SPIRIVA) INH SCH (07:04)
[2022-12-19] MEDS: FORMOTEROL FUMARATE 20 MCG/2 ML INHALATION SOLUTION (PERFOROMIST) INH SCH ×2 (07:04→19:20)
[2022-12-19] MEDS: ONDANSETRON 4MG TAB PO PRN (08:01)
[2022-12-19] MEDS: ALPRAZolam 0.5 MG TAB PO SCH ×2 (09:46→20:24)
[2022-12-19] MEDS: FLUoxetine 10 MG CAP PO SCH (09:46)
[2022-12-19] MEDS: PANTOPRAZOLE 40MG TAB (PROTONIX) PO SCH (09:47)
[2022-12-19] MEDS: GABAPENTIN 100 MG CAP PO SCH ×2 (09:47→20:24)
[2022-12-19] MEDS: FLUoxetine 20MG CAP PO SCH (09:47)
[2022-12-19] MEDS: buPROPion **XL** TABLET 150MG (WELLBUTRIN XL) PO SCH (09:47)
[2022-12-19] MEDS: MIRALAX *UNIT DOSE* 17GM PACKET PO SCH (09:47)
[2022-12-19] MEDS: POLYVINYL ALCOHOL OPHTH SOLN 15ML (LIQUITEARS) OU SCH ×4 (09:47→20:25)
[2022-12-19] MEDS: CYCLOBENZAPRINE 5MG TABLET PO PRN (10:46)
[2022-12-19] MEDS: NYSTATIN CREAM 15GM TOP SCH ×2 (18:19→20:24)
[2022-12-19] MEDS: FAMOTIDINE 20 MG TAB PO SCH (20:24)
[2022-12-20] MEDS: MORPHINE 10MG/0.5ML ORAL CONCENTRATE SOLUTION U/D SL PRN ×7 (01:50→22:32)
[2022-12-20] MEDS: IPRATROPIUM 0.5MG/ALBUTEROL 2.5MG INH SOL UD 3ML (DUONEB) NEB SCH ×4 (02:02→19:28)
[2022-12-20] MEDS: FORMOTEROL FUMARATE 20 MCG/2 ML INHALATION SOLUTION (PERFOROMIST) INH SCH ×2 (07:18→19:20)
[2022-12-20] MEDS: TIOTROPIUM INHALER/CAPSULE (SPIRIVA) INH SCH (07:18)
[2022-12-20] MEDS: BUDESONIDE 0.5 MG/2 ML INHALATION SUSPENSION INH SCH ×2 (07:18→19:20)
[2022-12-20] MEDS: PANTOPRAZOLE 40MG TAB (PROTONIX) PO SCH (09:00)
[2022-12-20] MEDS: MIRALAX *UNIT DOSE* 17GM PACKET PO SCH (09:00)
[2022-12-20] MEDS: FLUoxetine 10 MG CAP PO SCH (09:00)
[2022-12-20] MEDS: FLUoxetine 20MG CAP PO SCH (09:00)
[2022-12-20] MEDS: GABAPENTIN 100 MG CAP PO SCH ×2 (09:00→19:50)
[2022-12-20] MEDS: buPROPion **XL** TABLET 150MG (WELLBUTRIN XL) PO SCH (09:00)
[2022-12-20] MEDS: ALPRAZolam 0.5 MG TAB PO SCH ×2 (09:00→19:46)
[2022-12-20] MEDS: LORazepam 1 MG TAB PO PRN ×4 (10:36→22:32)
[2022-12-20] MEDS: POLYVINYL ALCOHOL OPHTH SOLN 15ML (LIQUITEARS) OU SCH ×4 (12:01→20:18)
[2022-12-20] MEDS: NYSTATIN CREAM 15GM TOP SCH ×2 (12:01→20:19)
[2022-12-20] MEDS: FAMOTIDINE 20 MG TAB PO SCH (19:51)
[2022-12-20] MEDS ORDERED: LIDOCAINE 5% (LIDODERM) PATCH TD ONE (23:00)
[2022-12-21] MEDS: IPRATROPIUM 0.5MG/ALBUTEROL 2.5MG INH SOL UD 3ML (DUONEB) NEB SCH (01:22)
[2022-12-21] MEDS: MORPHINE 10MG/0.5ML ORAL CONCENTRATE SOLUTION U/D SL PRN (05:11)
[2022-12-21] MEDS: LORazepam 1 MG TAB PO PRN (05:11)
== END 2022-12-21 07:00 | disposition expired | DRG 180 ==
LOC: M ED 16:04 → EDBD 16:04 → M ED INP 20:12 → M PCU 23:26 → M MSPAV 12-15 20:52
PROVIDERS: ADMIT Internal Medicine; ATTEND Internal Medicine
PROC: 0W9B3ZZ Drainage of Left Pleural Cavity, Percutaneous Approach (ICD-10-PCS; principal; 2022-12-12 13:30)
DX: C34.32 Malignant neoplasm of lower lobe, left bronchus or lung (principal); J96.21 Acute and chronic respiratory failure with hypoxia; J96.22 Acute and chronic respiratory failure with hypercapnia; J91.0 Malignant pleural effusion; J44.1 Chronic obstructive pulmonary disease with (acute) exacerbation; C79.51 Secondary malignant neoplasm of bone; I82.611 Acute embolism and thrombosis of superficial veins of right upper extremity; I50.32 Chronic diastolic (congestive) heart failure; J95.811 Postprocedural pneumothorax; E87.20 Acidosis, unspecified; C78.7 Secondary malignant neoplasm of liver and intrahepatic bile duct; C79.70 Secondary malignant neoplasm of unspecified adrenal gland; E03.9 Hypothyroidism, unspecified; E11.9 Type 2 diabetes mellitus without complications; I25.10 Atherosclerotic heart disease of native coronary artery without angina pectoris; Z51.5 Encounter for palliative care; Z66 Do not resuscitate; J30.81 Allergic rhinitis due to animal (cat) (dog) hair and dander; J30.89 Other allergic rhinitis; E78.5 Hyperlipidemia, unspecified; G47.33 Obstructive sleep apnea (adult) (pediatric); F32.A Depression, unspecified; F41.9 Anxiety disorder, unspecified; G89.29 Other chronic pain; E87.6 Hypokalemia; E66.9 Obesity, unspecified; I11.0 Hypertensive heart disease with heart failure; K21.9 Gastro-esophageal reflux disease without esophagitis; M19.90 Unspecified osteoarthritis, unspecified site; E83.42 Hypomagnesemia; M79.7 Fibromyalgia; Z99.81 Dependence on supplemental oxygen; Z79.891 Long term (current) use of opiate analgesic; Z79.4 Long term (current) use of insulin; Z79.890 Hormone replacement therapy; Z79.899 Other long term (current) drug therapy; Z90.49 Acquired absence of other specified parts of digestive tract; Z88.8 Allergy status to other drugs, medicaments and biological substances; Z87.891 Personal history of nicotine dependence; Z79.69 Long term (current) use of other immunomodulators and immunosuppressants